=== PATIENT | female | born 1960 | race Caucasian/White ===

== ENCOUNTER 2025-08-22 01:46 | Emergency (ER) | payer MEDICARE, SELFPAY ==
--- OUTSIDE RECORDS SUMMARY | 2025-06-18 16:26 | XMS_ITS | Encounter Summary ---
Author Organization [facility] nter Address [address] [place] [address] Care Team Providers Care Com Writer Name Role Phone Rachel Pagan MD Unavailable [phone] Pati Rucker TARIFF CLERK Unavailable [phone] Sosa Gardner TARIFF CLERK Unavailable [phone] Linda Elizabeth DO Unavailable Lizandro Evans NP Primary Care Provider [phone] Elsa Vazquez Unavailable Unavailable Reason for Visit * Auth/Cert Specialty Diagnoses / Procedures Referred By Dorothy ceballos Referred To Contact Diagnoses Nuvia Juarez MD [address] [place] [address] Phone: tel: fax: [facility] [address] [place] [address] Phone: tel: fax: Referral ID Status Reason Start Date Expiration Date Visits Re quested Visits Authorized [id number] Encounter Details Date Type Department Care Team (Latest Contact Info) Description 06/18/2025 4:26 PM EDT - 06/23/2025 11:00 AM EDT Hospital Encounter [facility] [address] [place] [address] Nuvia Johnson MD [address] [place] [id number] 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 (Primary Dx); Non-small cell lung cancer, unspecified laterality; Thrombocytopenia Discharge Disposition: Home or Self Care Social History Tobacco Use Types Packs/Day Years Used Date Smoking Tobacco: Every Day Cigarettes 0.5 30.7 Started: 2024; Last attempted to quit: 03/18/2025 Passive Smoke Exposure: Past Smokeless Tobacco: Never Comments:Offered patient an appointment at the health department for smoking cessation classes. Patient declined. Alcohol Use Standard Drinks/Week Comments Never 0 (1 standard drink = 0.6 oz pur e alcohol) Humiliation, Afraid, Rape, and Kick questionnair e Answer Date Recorded Within the last year, have y ou been afraid of your partner or ex-partner? No 11/11/2022 Within the last year, have y ou been humiliated or emotionally abused in other ways by your partner or ex-partner? No Within the last year, have y ou been kicked, hit, slapped, or otherwise physically hurt by your partner or ex-partner? No 11/11/2022 Within the last year, have y ou been raped or forced to have any kind of sexual activity by your partner or ex-partner? No 11/11/2022 Social Connection and Isolation Panel Answer Date Recorded In a typical week, how many times do you talk on the phone with family, friends, or neighbors? Three times a week 11/11/2022 How often do you get togethe r with friends or relatives? Three times a week 11/11/2022 How often do you attend chur ch or taoism services? More than 4 times per year 11/11/2022 Do you belong to any clubs o r organizations such as christianity groups, unions, fraternal or athletic groups, or school groups? Yes 11/11/2022 How often do you attend meet ings of the clubs or organizations you belong to? More than 4 times per year 11/11/2022 Are you , , di vorced, , never , or living with a partner? 11/11/2022 Overall Financial Resource Strain (CARDIA) Answe r Date Recorded How hard is it for you to pa y for the very basics like food, housing, medical care, and heating? Not hard at all 01/11/2025 Exercise Vital Sign Answer Date Recorde d On average, how many days pe r week do you engage in moderate to strenuous exercise (like a brisk walk)? 0 days 01/11/2025 On average, how many minutes do you engage in exercise at this level? 0 min 01/11/2025 PRAPARE - Transportation Answer Date Re corded In the past 12 months, has l ack of transportation kept you from medical appointments or from getting medications? No 12/17 In the past 12 months, has l ack of transportation kept you from meetings, work, or from getting things needed for daily living? No 01/11/2025 Housing Stability Vital Sign Answer Hector e Recorded In the last 12 months, was t here a time when you were not able to pay the mortgage or rent on time? No 11/11/2022 Number of Places Lived in the Last Year Not on f ile 11/11/2022 In the last 12 months, was t here a time when you did not have a steady place to sleep or slept in a fci (including now)? No 11/11/2022 AUDIT-C Answer Date Recorded Q1: How often do you have a drink containing alcohol? Never 06/19/2025 Q2: How many drinks containi ng alcohol do you have on a typical day when you are drinking? Patient does not drink Q3: How often do you have si x or more drinks on one occasion? Never 06/19/2025 Hunger Vital Sign Answer Date Recorded Within the past 12 months, y ou worried that your food would run out before you got the money to buy more. Never true 06/19/20 25 Within the past 12 months, t he food you bought just didn't last and you didn't have money to get more. Never true 06/19/2025 PRAPARE - Transportation Answer Date Re corded In the past 12 months, has l ack of transportation kept you from medical appointments or from getting medications? No 07/2025 In the past 12 months, has l ack of transportation kept you from meetings, work, or from getting things needed for daily living? No 06/23/2025 [facility] Utilities Answer Date Recorded In the past 12 months has th e electric, gas, oil, or water company threatened to shut off services in your home? No 06/19/2025 Comments No Sex and Gender Information Value Date Recorded Sex Assigned at Female 01/21/2022 1:00 PM EST Legal Sex Female 1:00 PM EST Gender Identity Female 01/21/2022 1:00 PM EST Sexual Orientation Straight 01/21/2022 1: 00 PM EST documented as of this encounter Last Filed Vital Signs Vital Sign Reading Time Taken Comments Blood Pressure 109/52 06/23/2025 8:33 AM EDT Pulse 81 06/23/2025 8:33 AM EDT Temperature 36.6 C (97.9 F) 06/23/2025 8:33 AM EDT Respiratory Rate 19 06/23/2025 8:33 AM EDT Oxygen Saturation 99% 06/23/2025 8:33 AM EDT Inhaled Oxygen Concentration - - Weight 66.7 kg (147 lb) 06/23/2025 3:00 AM EDT Height 147.3 cm (4' 10 ) 06/18/2025 4:34 PM EDT Body Mass Index 30.72 06/18/2025 4:34 PM EDT documented in this encounter Functional Status * AUDIT Alcohol Screening Question Answer Date of Assessment Author AUDIT-C Score 0 06/19/2025 1:00 PM EDT Emily Barton Q1: How often do you have a drink containing alcohol? Never 06/19/2025 1:00 PM EDT Emily Dong Q2: How many drinks containing alcohol do you have on a typical day when you are drinking? Patient does not drink 06/19/2025 1:00 PM EDT Emily Dong Q3: How often do you have six or more drinks on one occasion? Never 06/19/2025 1:00 PM EDT Emily Dong * Are you deaf or do you have serious difficulty hearing? Answer Date of Assessment Author No 10/27/2022 3:29 PM EST Demetri Mota RN * Are you blind or do you have serious difficulty seeing, even when wearing glasses? Answer Date of Assessment Author No 10/27/2022 3:29 PM Demetri Moser RN * Do you have serious difficulty walking or climbing stairs? Answer Date of Assessment Author No 10/27/2022 3:29 PM Demetri Moser RN * Do you have serious difficulty dressing or bathing? Answer Date of Assessment Author No 10/27/2022 3:29 PM Demetri Moser RN * Because of a physical, mental, or emotional condition, do you have serious difficulty doing errandsalone such as visiting the doctor? Answer Date of Assessment Author No 10/27/2022 3:29 PM Demetri Moser RN * Over the past 2 weeks, how often have you been bothered by any of the following problems? Question Answer Date of Assessment Author Patient Health Questionnaire-2 Score 0 0 07/2025 10:00 AM Emily Murillo * Over the past 2 weeks, how often have you been bothered by any of the following problems? Question Answer Date of Assessment Author Little interest or pleasure in doing things Not at all 06/23/2025 10:00 AM Emily Murillo Feeling down, depressed, or hopeless Not at all 06/23/2025 10:00 AM MOSHET Emily Dong Trouble falling or staying asleep, or sleeping too much Not at all 06/23/2025 10:00 AM EDEmily Pelayo A Feeling tired or having fang le energy Not at all 06/23/2025 10:00 AM EDT Emily Dong A Poor appetite or overeating Not at all 06/23/2025 10 :00 AM Emily Murillo A Feeling bad about yourself - or that you are a failure or have let yourself or your family down Not at all 06/23/2025 10:00 AM MOSHET Emily Carson A Trouble concentrating on thi ngs, such as reading the newspaper or watching television Not at all 06/23/2025 10:00 AM Emily Murillo Moving or speaking so slowly that other people could have noticed? Or the opposite - being so fidgety or restless that you have been moving around a lot more than usual. Not at all 06/23/2025 10:00 AM Emily Murillo Thoughts that you would be b surinder off or hurting yourself in some way Not at all 06/23/2025 10:00 AM EDEmily Pelayo Patient Health Questionnaire -9 Score 0 06/23/2025 10:00 AM EDEmily Pelayo documented as of this encounter Mental Status * Because of a physical, mental, or emotional condition, do you have serious difficulty concentrating, remembering, or making decisions? (5 years old or older) Answer Entry Date Author No 10/27/2022 3:29 PM Demetri Moser RN documented in this encounter Discharge Summaries * Nuvia Johnson MD - 06/23/2025 11:00 AM EDT Inpatient Rehabilitation Discharge Summary Admission Date: 06/18/2025 Discharge Date: 06/23/2025 Final Discharge Diagnoses 1. Acute ischemic infarction involving the right cerebellum, right frontal, parietal and occipital lobes 2. Metastatic non-small cell lung carcinoma 3. Hypertension 4. Hyperlipidemia 5. Atrial fibrillation 6. COPD 7. Severe thrombocytopenia 8. Myoclonus 9. Neuropathic pain 10. Epistaxis 11. Steroid-induced hyperglycemia 12. Hypokalemia 13. Hypomagnesemia History of present illness Patient is a 64 y.o. [id number]-[id number] female with a history of non-small cell lung cancer, with metastatic lesions to the brain status post 5 brain radiation treatments, left lower extremity DVT, PE status post IVC filter, A-fib, bladder mass status post TURB presented to [facility] on 06/12/2025 after a fall on her face resulting in bilateral facial/under high ecchymosis. Patientwas evaluated by ENT, recommended Bactroban ointment to nasal septum twice daily, recommended to donot use nasal cannula rather than face tent or mask. Patient was also evaluated by oncology and recommended MRI of the brain. Patient underwent MRI of the brain and was found to have above-mentioned multiple tiny acute infarctions in the right cerebellum, right occipital lobe, right posterior frontal parietal lobes. Patient was evaluated by neurology currently unable to receive DOACs, recommendedwatchman's procedure. Patient was also started on Depakote, underwent EEG which was negative. Once she was medically stable she was evaluated with PT, OT, recommended acute inpatient rehabilitation. Medical Hospital Course 1. Acute ischemic infarction involving the right cerebellum, right frontal, parietal and occipital lobes - Embolic in nature - Continue secondary stroke prophylaxis with atorvastatin 80 mg p.o. Cb, carvedilol 12.5 mg p.o. twice daily with meals - Unable to receive antiplatelets due to severe thrombocytopenia - Patient participated in and significantly benefited from intense 3 hours a day for 5 days of physical therapy, Occupational Therapy and/or speech therapy 2. Metastatic non-small cell lung carcinoma - Metastatic lesions to the brain s/p resection, gamma knife and XRT - Status post chemotherapy x 4 cycles 3. Hypertension - Stable with Coreg 12.5 mg p.o. twice daily with meals and isosorbide mononitrate 20 mg p.o. twicedaily - Restarted Bumex 2 mg p.o. twice daily 4. Hyperlipidemia - Treated with atorvastatin 80 mg p.o. nightly 5. Atrial fibrillation - Continued on carvedilol 12.5 mg p.o. twice daily with meals - Currently not on anticoagulation due to severe thrombocytopenia 6. COPD - Continued on oxygen as needed and DuoNeb inhalation 4 times daily 7. Severe thrombocytopenia - Transfuse to keep platelet count between 10 and 20 or less than 50 if bleeding - At the time of discharge platelet count improved to 50,000, recommended to return to ER if there is any signs of bleeding otherwise patient will recheck her CBC on Wednesday and home health will repeat labs twice weekly x 2 weeks 8. Myoclonus - Continued on valproic acid 250 mg p.o. every 8 hours - Follow-up with neurology after discharge 9. Neuropathic pain - Treated with gabapentin 400 mg p.o. twice daily 10. Epistaxis - Improved. 11. Steroid-induced hyperglycemia - Treated with insulin sliding scale, Jardiance 10 mg p.o. daily and metformin 500 mg p.o. twice daily with meals 12. Hypokalemia - Improved after administering IV potassium and adjusting dose of potassium chloride 20 mEq p.o. twice daily. 13. Hypomagnesemia - Received IV magnesium sulfate, started on magnesium oxide 800 mg p.o. twice daily recommend to continue this 14. GI prophylaxis - Treated with Protonix 40 mg p.o. daily before breakfast 15. DVT/PE - Status post IVC filter - Treated with bilateral lower extremity sequential compression devices 16. Discharge disposition - Discharged home with daughter on 06/23/2025 Rehab Hospital Course At the time of admission Feeding Feeding Level of Assistance Close supervision Feeding Where Assessed Wheelchair Grooming Grooming Level of Assistance Close supervision Grooming Where Assessed Wheelchair;Sitting sinkside Grooming Comments Patient was able to complete all parts of grooming. UE Bathing UE Bathing Level of Assistance Close supervision UE Bathing Where Assessed Wheelchair;Sitting sinkside UE Bathing Comments Patient was able to complete all parts of UE bathing. LE Bathing LE Bathing Level of Assistance Minimum assistance LE Bathing Where Assessed Wheelchair;Sitting sinkside UE Dressing UE Dressing Level of Assistance Minimum assistance UE Dressing Where Assessed Wheelchair UE Dressing Comments Patient required assistance to doff shirt over head. LE Dressing LE Dressing Yes Pants Level of Assistance Minimum assistance Sock Level of Assistance Minimum assistance Shoe Level of Assistance Contact guard Adult Briefs Level of Assistance Minimum assistance LE Dressing Where Assessed Wheelchair LE Dressing Comments Patient required min assistance for balance/safety. Toileting Toileting Level of Assistance Minimum assistance Where Assessed Toilet Toilet Transfers Toilet Transfer From Wheelchair Toilet Transfer Type To and from Toilet Transfer to Raised toilet seat with rails Toilet Transfer Technique Stand pivot Toilet Transfers Minimal assistance Shower Transfers Shower Transfers Comments NT secondary to safety; Bed Mobility 1 Bed Mobility From 1 Rolling right - Bed Mobility Type 1 To and from - Bed Mobility to 1 Rolling left - Level of Assistance 1 Independent - Bed Mobility 2 Bed Mobility From 2 Supine - Bed Mobility Type 2 To - Bed Mobility to 2 Short sit - Level of Assistance 2 Minimum assistance - Bed Mobility Comments 2 pt able to manuver LEs off bed with cueing and Yamil to bring trunk to sitting - Bed Mobility 3 Bed Mobility From 3 Short sit - Bed Mobility Type 3 To - Bed Mobility to 3 Supine - Level of Assistance 3 Minimum assistance - Bed Mobility Comments 3 pt requires gudiance of LEs onto bed - Transfers Transfer Yes - Transfer 1 Transfer From 1 Sit - Transfer Type 1 To and from - Transfer to 1 Stand - Technique 1 Sit to stand;Stand to sit - Transfer Device 1 w/c arm rests and rolling walker - Transfer Level of Assistance 1 Minimum assistance - Trials/Comments 1 pt requires cueing for safety and Yamil for balance - Transfers 2 Transfer From 2 Wheelchair - Transfer Type 2 To and from - Transfer to 2 Bed - Technique 2 Stand pivot - Transfer Device 2 w/c arm rests - Transfer Level of Assistance 2 Minimum assistance - Trials/Comments 2 for balance/safety - Transfers 3 Transfer From 3 Wheelchair - Transfer Type 3 To and from - Transfer to 3 Car - Technique 3 Stand pivot - Transfer Device 3 rolling walker - Transfer Level of Assistance 3 Minimum assistance - Trials/Comments 3 Pt requires cueing for sitting in w/c prior to bringing LEs in. Pt requires Yamil for balance/safety - Wheelchair Activities Propulsion Yes - Propulsion Type 1 Manual - Level 1 Level tile - Method 1 Right upper extremity;Left upper extremity - Level of Assistance 1 Moderate assistance - Description/Details 1 Pt propells w/c 10ft with modA. Pt demonstrates decreased coordiantion on LUEwith reaching far back on chair and difficulty maintaining gambling broker, pt demonstrates difficulty using LEs to assist. - Ambulation Ambulation Yes - Ambulation 1 Surface 1 Level tile - Device 1 Rolling walker - Assistance 1 Minimum assistance - Quality of Gait 1 unsteady, pt requires cueing for safety awareness with for walker use, pt demonstrates impulsvie actions at times. - Comments/Distance (ft) 1 [id number] with 2 turns, 50ftx1 with 2 turns - Ambulation 2 Surface 2 Uneven;Carpet - Device 2 Rolling walker - Assistance 2 Minimum assistance - Quality of Gait 2 unsteady, pt requires cueing for safety awareness with for walker use, pt demonstrates impulsvie actions at times. - Comments/Distance (ft) 2 10ft - Stairs Stairs Yes - Stairs Rails 1 Right - Assistance 1 Moderate assistance - Comment/Number of Steps 1 Pt ascends and descends 3 stairs with right handrail with modA for balance/safety. Pt requires cueing for safety awareness and for prevention of impulsive actions - At the time of discharge Feeding Feeding Level of Assistance Independent -KG Feeding Where Assessed Wheelchair -KG Grooming Grooming Level of Assistance Modified independent -KG Grooming Where Assessed Wheelchair;Sitting sinkside -KG Grooming Comments Pt complete all grooming parts in seated position. -KG UE Bathing UE Bathing Level of Assistance Setup -KG UE Bathing Where Assessed Wheelchair;Sitting sinkside -KG LE Bathing LE Bathing Level of Assistance Contact guard -KG LE Bathing Where Assessed Wheelchair;Standing sinkside;Sitting sinkside -KG LE Bathing Comments Pt able to wsah/dry all parts with CGA while standing to wash/dry buttocks/periarea. -KG UE Dressing UE Dressing Level of Assistance Setup -KG UE Dressing Where Assessed Wheelchair -KG LE Dressing LE Dressing Yes -KG LE Dressing Adaptive Equipment Walker -KG Pants Level of Assistance Contact guard -KG Sock Level of Assistance Setup -KG Shoe Level of Assistance Moderate assistance -KG Adult Briefs Level of Assistance Contact guard -KG LE Dressing Where Assessed Wheelchair -KG Toileting Toileting Level of Assistance Contact guard -KG Where Assessed Toilet -KG Toilet Transfers Toilet Transfer From Wheelchair -KG Toilet Transfer Type To and from -KG Toilet Transfer to Raised toilet seat with rails -KG Toilet Transfer Technique Stand pivot -KG Toilet Transfers Contact guard -KG Ambulation 1 Surface 1 Level tile Device 1 Rolling walker Assistance 1 Contact guard Quality of Gait 1 decreased francisco, flexed posture, unsteadiness. pt requires cueing for safety with walker management and to prevent impulsive actions. Comments/Distance (ft) 1 10', 50' with 2 turns, 150' with 4 turns Ambulation 2 Surface 2 Carpet Device 2 Rolling walker Assistance 2 Contact guard Quality of Gait 2 decreased francisco, flexed posture, unsteadiness. pt requires cueing for safety with walker management and to prevent impulsive actions. Comments/Distance (ft) 2 10' Stairs Rails 1 Right Assistance 1 Contact guard Comment/Number of Steps 1 1 step, 4 steps, 6 steps with step to gait pattern Bed Mobility Bed Mobility Yes Bed Mobility 1 Bed Mobility From 1 Rolling right Bed Mobility Type 1 To and from Bed Mobility to 1 Rolling left Level of Assistance 1 Independent Bed Mobility 2 Bed Mobility From 2 Supine Bed Mobility Type 2 To and from Bed Mobility to 2 Short sit Level of Assistance 2 Independent Transfer 1 Transfer From 1 Sit Transfer Type 1 To and from Transfer to 1 Stand Technique 1 Sit to stand;Stand to sit Transfer Device 1 arm rests and RW Transfer Level of Assistance 1 Close supervision Trials/Comments 1 cueing required for safety Transfers 2 Transfer From 2 Wheelchair Transfer Type 2 To and from Transfer to 2 Bed Technique 2 Stand pivot Transfer Device 2 arm rests Transfer Level of Assistance 2 Close supervision Transfers 3 Transfer From 3 Wheelchair Transfer Type 3 To and from Transfer to 3 Car Technique 3 Stand pivot Transfer Device 3 arm rests, rolling walker Transfer Level of Assistance 3 Close supervision Trials/Comments 3 cues for safety and technique Wheelchair Activities Propulsion Type 1 Manual Level 1 Level tile Method 1 Right upper extremity;Left upper extremity Level of Assistance 1 Maximum assistance Description/Details 1 50' with 2 turns, 150' with 4 turns and max assist due to poor coordination Modified Renville Scale 2 - The patient has slight disability; unable to carry out all pre-stroke activities but able to look after self without daily help. Physical Exam General: Patient is in no acute distress Cardiovascular: S1, S2 are audible Respiratory: Oxygen per nasal cannula, mild expiratory wheezing Gastrointestinal: Abdomen is soft and positive bowel sounds in all 4 quadrants, nontender to palpation Neurological: Awake, alert, speech is fluent with intact comprehension, follows commands Musculoskeletal: Bilateral lower extremities 1+ pedal edema Discharge Medications Your medication list PAUSE taking these medications Instructions Last Dose Given Next Dose Due bumetanide 2 MG tablet Wait to take this until your doctor or other care provider tells you to start again. Commonly known as: Bumex What changed: additional instructions Take 1 tablet (2 mg) by mouth in the morning and at bedtime. Hold for systolic blood pressure less than or equal to 100 mmHg START taking these medications Instructions Last Dose Given Next Dose Due magnesium oxide tablet Commonly known as: Mag-Ox Take 2 tablets (800 mg) by mouth in the morning and at bedtime. melatonin 3 MG tablet Take 2 tablets (6 mg) by mouth at bedtime. CHANGE how you take these medications Instructions Last Dose Given Next Dose Due carvedilol 12.5 MG tablet Commonly known as: Coreg What changed: medication strength additional instructions Take 1 tablet (12.5 mg) by mouth with breakfast and with evening meal. Hold for systolic blood pressure less than or equal to 100 mmHg or heart rate less than or equal to 60 bpm folic acid 1 MG tablet Commonly known as: Folvite What changed: how much to take how to take this when to take this additional instructions Take 1 tablet (1 mg) by mouth in the morning. gabapentin 800 MG tablet Commonly known as: Neurontin What changed: how much to take Take 0.5 tablets (400 mg) by mouth in the morning and at bedtime. Take morning of procedure isosorbide mononitrate 20 MG tablet What changed: additional instructions Take 1 tablet (20 mg) by mouth in the morning and at bedtime. Hold for systolic blood pressure lessthan or equal to 100 mmHg potassium chloride CR 20 MEQ ER tablet Commonly known as: Klor-Con M20 What changed: when to take this Take 1 tablet (20 mEq) by mouth in the morning and at bedtime. CONTINUE taking these medications Instructions Last Dose Given Next Dose Due atorvastatin 80 MG tablet Commonly known as: Lipitor Take 1 tablet (80 mg) by mouth at bedtime. cyancobalamin 500 MCG tablet Commonly known as: Vitamin B-12 Take 1 tablet (500 mcg) by mouth in the morning. Do not take morning of procedure DULoxetine [address] capsule Commonly known as: Cymbalta Take 1 capsule (60 mg) by mouth in the morning. empagliflozin 10 MG Commonly known as: Jardiance Take 1 tablet (10 mg) by mouth in the morning. ipratropium-albuterol 0.5-2.5 mg/3 mL nebulizer solution Commonly known as: Duo-Neb Take 3 mL by nebulization every 6 (six) hours if needed for wheezing. metFORMIN 500 MG tablet Commonly known as: Glucophage Take 1 tablet (500 mg) by mouth with breakfast and with evening meal. pantoprazole 40 MG EC tablet Commonly known as: ProtoNix Take 1 tablet (40 mg) by mouth before breakfast. Do not crush, chew, or split. valproic acid 250 MG/5ML oral liquid Commonly known as: Depakene Take 5 mL (250 mg) by mouth every 8 (eight) hours. STOP taking these medications cyclobenzaprine 10 MG tablet Commonly known as: Flexeril diphenoxylate-atropine 2.5-0.025 MG tablet Commonly known as: Lomotil ondansetron 8 MG tablet Commonly known as: Rita Where to Get Your Medications [facility] [id number] [facility] [address] [facility] [address], [facility] [id number] atorvastatin 80 MG tablet bumetanide 2 MG tablet carvedilol 12.5 MG tablet cyancobalamin 500 MCG tablet DULoxetine [address] capsule empagliflozin 10 MG folic acid 1 MG tablet ipratropium-albuterol 0.5-2.5 mg/3 mL nebulizer solution isosorbide mononitrate 20 MG tablet magnesium oxide tablet melatonin 3 MG tablet metFORMIN 500 MG tablet pantoprazole 40 MG EC tablet potassium chloride CR 20 MEQ ER tablet valproic acid 250 MG/5ML oral liquid Information about where to get these medications is not yet available Ask your nurse or doctor about these medications gabapentin 800 MG tablet Discharge Condition: Medically stable Discharge Instructions Diet: Diabetic and cardiac diet Weight Bearing Status: No weightbearing restrictions Activity: As tolerated Discharge disposition Home with daughter Discharge DME Rolling walker Oxygen Discharge Rehabilitation: Home health PT and OT Follow-Up Appointments [facility] oncology on June 26, 2025 at 9 AM [facility] cardiology on June 26, 2025 at 10:15 AM [facility] oncology on June 26, 2025 at 10:30 AM [facility] nephrology on June 28, 2025 at 10 AM [facility] neurology on July 23, 2025 at 11 AM MRI cervical spine on July 25, 2025 at 11:30 AM Ultrasound abdomen on August 02, 2025 2:30 PM Primary care physician on July 06, 2025 at 11:30 AM Time spent for discharge: greater than 30 minutes Patient/caregiver were educated on medication administration, activity restrictions, driving, use of medical equipment, post discharge rehab plan of care, post discharge follow-up appointments. Patient's/patient's caregivers questions were answered to their satisfaction. Driving: Do not drive, Do not operate heavy equipment/machinery I performed [id number] evaluation of the patient on the day of Discharge. documented in this encounter Discharge Instructions * Discharge Instr - Activity* Blayne Pope, PT - 06/22/2025 2:55 PM EDT Physical Therapy Discharge Instructions Discharge Date: 06/22/2025 General Instructions: When standing from a bed or chair, push off from bed / chair. Do not pull on walker or helper. If using a wheelchair, always lock the brakes and remove leg rests before getting in / out of the wheelchair. Make sure your area at home with free of clutter and throw rugs. Please use gait / safety beltwith patients that require assistance to complete mobility. Ambulation: Patient is able to walk with use of rolling walker. Patient requires hands on assistance of one person when walking. Patient is able to walk on Unlevel and level surfaces. Bed / Chair Transfers: Patient requires use of the following assistive device to complete transfers: rolling walker. Patient requires hands on assistance of one person to complete transfers. Stairs: Patient is able to walk up and down 12 steps with use of handrails hands on assistance of one person. Recommendations: 24 hour supervision / assistance. Equipment Recommendations: rolling walker and bedside commode. Follow Up Therapy Recommended: outpatient therapy and home exercise program. Follow home exercise program as instructed: . * Appointments* Janell Jack RN - 06/23/2025 9:12 AM EDT FOLLOW UP WITH PRIMARY CARE PHYSICIAN ISSAC EVANS ON June @ 11:30 AM * Discharge Instr - Other Orders* Emily Dong - 06/21/2025 2:16 PM EDT [facility] WILL CALL TO ARRANGE VISITS [id number] documented in this encounter Medications at Time of Discharge carvedilol (Coreg) 12.5 MG tablet Take 1 tablet (12.5 mg) by mouth with breakfast and with evening meal. Hold for systolic blood pressure less than or equal to 100 mmHg or heart rate less than or equal to 60 bpm 60 tablet 06/22/2025 DULoxetine (Cymbalta) [address] capsule Take 1 capsule (60 mg) by mouth in the morning. 30 capsule 06/22/2025 empagliflozin (Jardiance) 10 MG Take 1 tablet (10 mg) by mouth in the morning. 30 tablet 06/22/2025 folic acid (Folvite) 1 MG tablet Take 1 tablet (1 mg) by mouth in the morning. 30 tablet 11 06/23/2025 6 gabapentin (Neurontin) 800 MG tablet Take 0.5 tablets (400 mg) by mouth in the morning and at bedtime. Take morning of procedure 06/22/2025 ipratropium-albut nikolai (Duo-Neb) 0.5-2.5 mg/3 mL nebulizer solution Take 3 mL by nebulization every 6 (six) hours if needed for wheezing. 360 mL 06/22/2025 metFORMIN (Glucophage) 500 MG tablet Take 1 tablet (500 mg) by mouth with breakfast and with evening meal. 60 tablet 06/22/2025 pantoprazole (ProtoNix) 40 MG EC tablet Take 1 tablet (40 mg) by mouth before breakfast. Do not crush, chew, or split. 30 tablet 06/22/2025 cyancobalamin (Vitamin B-12) 500 MCG tablet Take 1 tablet (500 mcg) by mouth in the morning. Do not take morning of procedure 30 tablet 06/22/2025 5 melatonin 3 MG tablet Take 2 tablets (6 mg) by mouth at bedtime. 60 tablet 06/22/2025 5 atorvastatin (Lipitor) 80 MG tabletIndications :Cerebrovascular Accident Take 1 tablet (80 mg) by mouth at bedtime. 30 tablet 06/22/2025 5 bumetanide (Bumex) 2 MG tablet Take 1 tablet (2 mg) by mouth in the morning and at bedtime. Hold for systolic blood pressure less than or equal to 100 mmHg 60 tablet 06/22/2025 5 isosorbide mononitrate 20 MG tablet Take 1 tablet (20 mg) by mouth in the morning and at bedtime. Hold for systolic blood pressure less than or equal to 100 mmHg 60 tablet 06/22/2025 5 magnesium oxide (Mag-Ox) tablet Take 2 tablets (800 mg) by mouth in the morning and at bedtime. 120 tablet 06/22/2025 5 potassium chloride CR (Klor-Con M20) 20 MEQ ER tablet Take 1 tablet (20 mEq) by mouth in the morning and at bedtime. 60 tablet 06/22/2025 5 valproic acid (Depakene) 250 MG/5ML oral liquid Take 5 mL (250 mg) by mouth every 8 (eight) hours. 450 mL 06/22/2025 5 documented as of this encounter Progress Notes * Radha Berry, PT - 06/23/2025 11:00 AM EDT PHYSICAL THERAPY DISCHARGE NOTE 06/23/25 09 Subjective Current Problem CVA Precautions Medical Precautions HRF, Cardiac protocol; (Hold PT/OT if HR is < 50 >120 or SBP is < 90 >180 mmHg), Aspiration precautions, Ambulation Ambulation Yes Ambulation 1 Surface 1 Level tile Device 1 Rolling walker Assistance 1 Contact guard Quality of Gait 1 decreased francisco, flexed posture, unsteadiness. pt requires cueing for safety with walker management and to prevent impulsive actions. Comments/Distance (ft) 1 10', 50' with 2 turns, 150' with 4 turns Ambulation 2 Surface 2 Carpet Device 2 Rolling walker Assistance 2 Contact guard Quality of Gait 2 decreased francisco, flexed posture, unsteadiness. pt requires cueing for safety with walker management and to prevent impulsive actions. Comments/Distance (ft) 2 10' Stairs Rails 1 Right Assistance 1 Contact guard Comment/Number of Steps 1 1 step, 4 steps, 6 steps with step to gait pattern Bed Mobility Bed Mobility Yes Bed Mobility 1 Bed Mobility From 1 Rolling right Bed Mobility Type 1 To and from Bed Mobility to 1 Rolling left Level of Assistance 1 Independent Bed Mobility 2 Bed Mobility From 2 Supine Bed Mobility Type 2 To and from Bed Mobility to 2 Short sit Level of Assistance 2 Independent Transfer 1 Transfer From 1 Sit Transfer Type 1 To and from Transfer to 1 Stand Technique 1 Sit to stand;Stand to sit Transfer Device 1 arm rests and RW Transfer Level of Assistance 1 Close supervision Trials/Comments 1 cueing required for safety Transfers 2 Transfer From 2 Wheelchair Transfer Type 2 To and from Transfer to 2 Bed Technique 2 Stand pivot Transfer Device 2 arm rests Transfer Level of Assistance 2 Close supervision Transfers 3 Transfer From 3 Wheelchair Transfer Type 3 To and from Transfer to 3 Car Technique 3 Stand pivot Transfer Device 3 arm rests, rolling walker Transfer Level of Assistance 3 Close supervision Trials/Comments 3 cues for safety and technique Wheelchair Activities Propulsion Type 1 Manual Level 1 Level tile Method 1 Right upper extremity;Left upper extremity Level of Assistance 1 Maximum assistance Description/Details 1 50' with 2 turns, 150' with 4 turns and max assist due to poor coordination Other Activity Other Activity 1 Pt performed picking up object from floor with unilateral UE support with billing services manager with SBA PT Assessment PT Assessment Pt continues to require cueing for safety awareness with pt demonstrating decreased awareness of deificits, safety precautions and need for assistance. Discussed with pt safety concernsfor discharge home, recommended 24 hour care, need for use of walker with all mobility, taking up throw rugs, proper shoe use, and any other concerns about discharge. 5/ goals achieved. Recommend home health PT. Pt has all needed equipment at home. Plan PT - OK to Discharge Yes * Chapo Funez OTR/Anita - 06/23/2025 10:21 AM EDT Images from the original note were not included. 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 Lung cancer with mets to the brain Myocardial infarction Phlebitis and thrombophlebitis of unspecified site Pneumonia 05/15/2025 Pulmonary embolism 2024 PVD (peripheral vascular disease) (HCC) RLS (restless legs syndrome) Ruptured abdominal aortic aneurysm Sepsis due to pneumonia 05/15/2025 Past Surgical History: Procedure Laterality Date BRAIN TUMOR EXCISION 11/[address] CHEST ANGIOGRAM W AND/OR WO IV CONTRAST 01/10/2025 CT CHEST ANGIOGRAM W AND/OR WO IV CONTRAST 01/10/[address] [facility] [address] CHEST ANGIOGRAM W AND/OR WO IV CONTRAST 03/19/2025 CT CHEST ANGIOGRAM W AND/OR WO IV CONTRAST 03/19/[address] CHEST ANGIOGRAM W AND/OR WO IV CONTRAST 05/15/2025 CT CHEST ANGIOGRAM W AND/OR WO IV CONTRAST 05/15/[address] HEAD ANGIO 04/24/2024 CT HEAD ANGIO 04/24/[address] HEAD ANGIO 02/28/2025 CT HEAD ANGIO 02/28/[address] HEAD ANGIO 06/13/2025 CT HEAD ANGIO 06/13/[address] NECK ANGIO 04/24/2024 CT NECK ANGIO 04/24/[address] NECK ANGIO 02/28/2025 CT NECK ANGIO 02/28/[address] NECK ANGIO 06/13/2025 CT NECK ANGIO 06/13/[address] IR INTERVENTION FILTER PLACEMENT 03/31/2025 IR INTERVENTION FILTER PLACEMENT 03/31/2025 [facility] IR MEDIPORT INSERTION, SINGLE 11/24/2022 Occupational Therapy Flowsheet Data (last 10 hours) OT Treatment - Sat June 23, 2025 Row Name 1021 Subjective Current Problem Stoke, acute, embolic -KG Patient Reports Pt not seen for OT services at this time. Discharge only. -KG Precautions Medical Precautions HRF, Cardiac protocol; (Hold PT/OT if HR is < 50 >120 or SBP is < 90 >180 mmHg), Aspiration precautions, -KG Feeding Feeding Level of Assistance Independent -KG Feeding Where Assessed Wheelchair -KG Grooming Grooming Level of Assistance Modified independent -KG Grooming Where Assessed Wheelchair;Sitting sinkside -KG Grooming Comments Pt complete all grooming parts in seated position. -KG UE Bathing UE Bathing Level of Assistance Setup -KG UE Bathing Where Assessed Wheelchair;Sitting sinkside -KG LE Bathing LE Bathing Level of Assistance Contact guard -KG LE Bathing Where Assessed Wheelchair;Standing sinkside;Sitting sinkside -KG LE Bathing Comments Pt able to wsah/dry all parts with CGA while standing to wash/dry buttocks/periarea. -KG UE Dressing UE Dressing Level of Assistance Setup -KG UE Dressing Where Assessed Wheelchair -KG LE Dressing LE Dressing Yes -KG LE Dressing Adaptive Equipment Walker -KG Pants Level of Assistance Contact guard -KG Sock Level of Assistance Setup -KG Shoe Level of Assistance Moderate assistance -KG Adult Briefs Level of Assistance Contact guard -KG LE Dressing Where Assessed Wheelchair -KG Toileting Toileting Level of Assistance Contact guard -KG Where Assessed Toilet -KG Toilet Transfers Toilet Transfer From Wheelchair -KG Toilet Transfer Type To and from -KG Toilet Transfer to Raised toilet seat with rails -KG Toilet Transfer Technique Stand pivot -KG Toilet Transfers Contact guard -KG OT Assessment Patient Goals Take care of myself -KG OT Assessment Results -- Pt has made great progress since SOC -KG Prognosis Good -KG Barriers to Discharge None -KG Medical Staff Made Aware Yes -KG Strengths Support of extended family/friends -KG Barriers Comorbidities -KG Plan Treatment Interventions -- Planned discharge for this date -KG Anticipated Length of Stay Planned discharge for this date -KG OT Discharge Recommendations -- outpatient therapy -KG Equipment Recommended RW, BSC -KG OT - OK to Discharge Yes -KG At Session End Patient Was Left -- -KG User Guerin (r) = Recorded By, (t) = Taken By, (c) = Cosigned By Initials Name Effective Dates KG Chapo Funez, OTR/L 10/01/23 - Multi-Disciplinary Problems (from Occupational Therapy) Active Problems Not on file Occupational Therapy Progress Note Patient is discharged to home Facility name / phone number for follow up: Yes Additional Discharge Considerations: Pt has made great progress since SOC meeting 4/5 STGs and 3/5 LTGs. Pt safe to discharge home with family assistance. Problem: OT STG 1; Impaired Bathing Goal: Pt will complete all parts of LB Bathing ADL tasks with CGA to aid in return home. Outcome: Met Problem: OT STG 2; Impaired UB Dressing Goal: Pt will complete all part of Upper Body Dressing tasks with Close Supervision to aid in safe return home. Outcome: Met Problem: OT STG 3; Impaired LB Dressing Goal: Pt will complete all parts Lower Body Dressing tasks with CGA to aid in safe return home. Outcome: Adequate for Discharge Problem: OT STG 4; Impaired Toileting Goal: Pt will complete toileting hygiene tasks with CGA to aid in return home. Outcome: Met Problem: OT STG 5; Impaired Toileting Transfer Goal: Pt will require CGA with toileting transfers using least restrictive device as needed to aid in safe return home. Outcome: Met Problem: OT LTG 1; Impaired Feeding Goal: Pt will require Modified Independent with feeding tasks to aid in safe return home. Outcome: Met Problem: OT LTG 2; Impaired Grooming Goal: Pt will complete Grooming self-care tasks with Modified Independent to aid in safe return home. Outcome: Met Problem: OT LTG 3; Impaired Bathing Goal: Pt will complete all parts of Bathing ADL tasks with SBA to aid in return home. Outcome: Adequate for Discharge Problem: OT LTG 4; Impaired Toileting Goal: Pt will complete toileting hygiene tasks with SBA to aid in return home. Outcome: Adequate for Discharge Problem: OT LTG 5; Impaired HEP Goal: Pt will be educated on and verbalize and demonstrate understanding of HEP to promote increased strength to facilitate increased independence and safety with ADLs and functional transfers. Outcome: Met * Nuvia Johnson MD - 06/22/2025 12:24 PM EDT This is a [id number] encounter/evaluation by a rehabilitation physician. History of Present Illness: See H&P from 06/18/2025 Subjective No acute events overnight. Patient was examined this morning in speech-language pathologist office Patient reported that she wants to go home today however after explaining that her daughter will behere tomorrow morning to take her home she is agreeable She denies any dyspnea or chest pain however she has oxygen on Patient reports that she takes Bumex at home, administered 2 mg Bumex this morning, can restart after discharge Review of Systems A 10 point review of systems was performed and positive as written although Objective Physical Exam Visit Vitals BP 133/67 Pulse 84 Temp 98.1 ??F (36.7 ??C) Resp 17 General: She is in no acute distress Cardiovascular: S1, S2 are audible Respiratory: Oxygen per nasal cannula, diffuse expiratory wheezing Gastrointestinal: Abdomen is soft and positive bowel sounds in all 4 quadrants, nontender to palpation Neurological: Awake, alert, speech is fluent with intact comprehension follows commands Extremities: Bilateral lower extremities 1+ edema Current Facility-Administered Medications Medication Dose Route Frequency Provider Last Rate Last Admin acetaminophen (Tylenol) tablet 650 mg 650 mg Oral q6h PRN Nuvia Johnson MD aluminum & magnesium hydroxide-simethicone (Mylanta) 200-200-20 MG/5ML oral suspension 20 mL 20mL Oral q4h PRN Nuvia Johnson MD atorvastatin (Lipitor) tablet 80 mg 80 mg Oral Nightly Nuvia Johnson MD 80 mg at 06/21/252125 bisacodyl (Dulcolax) suppository 10 mg 10 mg Rectal Daily PRN Nuvia Johnson MD [Held by provider] bumetanide (Bumex) tablet 2 mg 2 mg Oral BID Nuvia Johnson MD carvedilol (Coreg) tablet 12.5 mg 12.5 mg Oral BID with meals Nuvia Johnson MD 12.5 mg at 06/22/25 0951 cyancobalamin (Vitamin B-12) tablet 500 mcg 500 mcg Oral Daily Nuvia Johnson MD 500 mcg at 06/22/25 0950 cyclobenzaprine (Flexeril) tablet 10 mg 10 mg Oral Nightly Nuvia Johnson MD 10 mg at 06/21/252125 glucose chewable tablet 12-16 g 12-16 g Oral q15 min PRN Nuvia Johnson MD Or glucose (Glutose) 40 % oral gel 15 g 15 g Oral q15 min PRN Nuvia Johnson MD Or dextrose 50 % solution 12.5-25 g 12.5-25 g Intravenous q15 min PRN Nuvia Johnson MD diphenoxylate-atropine (Lomotil) 2.5-0.025 MG per tablet 1 tablet 1 tablet Oral 4x daily PRN MD Hardeep 1 tablet at 06/19/25 0705 DULoxetine (Cymbalta) DR capsule 60 mg 60 mg Oral q AM Nuvia Johnson MD 60 mg at 06/22/25 0950 empagliflozin (Jardiance) tablet 10 mg 10 mg Oral Daily Nuvia Johnson MD 10 mg at 06/22/25 0951 folic acid (Folvite) tablet 1 mg 1 mg Oral Daily Nuvia Johnson MD 1 mg at 06/22/25 0950 gabapentin (Neurontin) capsule 400 mg 400 mg Oral BID Nuvia Johnson MD 400 mg at 06/22/25 0950 Glucagon Emergency injection kit 1 mg 1 mg Intramuscular PRN Nuvia Johnson MD insulin lispro (HumaLOG) injection 0-5 Units 0-5 Units Subcutaneous Before meals & nightly Nuvia Johnson MD ipratropium-albuterol (Duo-Neb) 0.5-2.5 mg/3 mL nebulizer solution 3 mL 3 mL Nebulization 4x daily Nuvia Johnson MD 3 mL at 06/22/25 1112 isosorbide mononitrate tablet 20 mg 20 mg Oral BID Nuvia Johnson MD 20 mg at 06/22/25 0950 magnesium hydroxide (Milk of Magnesia) 400 MG/5ML suspension 20 mL 20 mL Oral q8h PRN Nuvia Johnson MD magnesium oxide (Mag-Ox) tablet 800 mg 800 mg Oral BID Nuvia Johnson MD 800 mg at 06/22/25 0950 melatonin tablet 6 mg 6 mg Oral Nightly Nuvia Johnson MD 6 mg at 06/21/25 2126 metFORMIN (Glucophage) tablet 500 mg 500 mg Oral BID with meals Nuvia Johnson MD 500 mg at 06/22/25 0950 [facility] popswab 1 application. 1 application. Nasal q12h KALEY Johnson MD 1 application. at 06/22/25 0951 ondansetron (Zofran) tablet 4 mg 4 mg Oral q6h PRN Nuvia Johnson MD Or ondansetron (Zofran) injection 4 mg 4 mg Intravenous q6h PRN Nuvia Johnson MD 4 mg at 06/21/25 2153 pantoprazole (ProtoNix) EC tablet 40 mg 40 mg Oral Daily before breakfast Nuvia Johnson MD 40 mg at 06/22/25 0617 potassium chloride CR (Klor-Con M20) ER tablet 20 mEq 20 mEq Oral BID Nuvia Johnson MD 20 mEq at 06/22/25 0950 valproic acid (Depakene) oral liquid 250 mg 250 mg Oral q8h KALEY Johnson MD 250 mg at 06/22/25 0617 Labs Lab Results Component Value Date POCGLU 82 06/22/2025 BMP: Results from last 7 days Lab Units 06/21/25 0546 06/20/25 0558 06/19/25 0554 CREATININE mg/dL -- -- 0.62 BUN mg/dL -- -- 12 SODIUM mmol/L -- -- 142 POTASSIUM mmol/L 3.8 < > 2.9* CHLORIDE mmol/L -- -- 108 CO2 mmol/L -- -- 27 < > = values in this interval not displayed. CBC: Results from last 7 days Lab Units 06/22/25 0312 06/21/25 0546 06/20/25 0557 WBC AUTO 10*3/uL -- -- 7.5 7.5 HEMOGLOBIN g/dL -- -- 7.9* HEMATOCRIT % -- -- 23.6* MCV fL -- -- 91.8 PLATELETS AUTO 10*3/uL 15* < > 13* < > = values in this interval not displayed. Impression/Plan Jose Sims is a 64 y.o. female admitted to inpatient rehabilitation for 1. Acute ischemic infarction involving the right cerebellum, right frontal, parietal and occipital lobes - Embolic in nature - Continue secondary stroke prophylaxis with atorvastatin 80 mg p.o. Cb, carvedilol 12.5 mg p.o. twice daily with meals - Unable to receive antiplatelets due to severe thrombocytopenia - Continue test 3 hours a day for 5 days of physical therapy, Occupational Therapy and/or speech therapy 2. Metastatic non-small cell lung carcinoma - Metastatic lesions to the brain s/p resection, gamma knife and XRT - Status post chemotherapy x 4 cycles 3. Hypertension - Stable - Continue Coreg 12.5 mg p.o. twice daily with meals - Continue isosorbide mononitrate 20 mg p.o. twice daily - Administer Bumex 2 mg p.o. once today 4. Hyperlipidemia - Continue atorvastatin 80 mg p.o. nightly 5. Atrial fibrillation - Continue carvedilol 12.5 mg p.o. twice daily with meals - Currently not on anticoagulation due to severe thrombocytopenia 6. COPD - Continue oxygen via facemask as needed - Continue DuoNeb inhalation 4 times daily 7. 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 every 8 hours 9. Neuropathic pain - Continue gabapentin 400 mg p.o. twice daily 10. Epistaxis - Improved - Avoid nasal cannula - Continue facemask 11. Steroid-induced hyperglycemia - Continue insulin sliding scale - Continue Jardiance 10 mg p.o. daily - Continue metformin 500 mg p.o. twice daily with meals 12. Hypokalemia - Administer potassium chloride 30 mEq IV once today - Continue potassium chloride 20 mEq p.o. twice daily from 06/20/2025 13. Hypomagnesemia - Administer magnesium sulfate 1 g IV once over 60 minutes 14. GI prophylaxis - Continue Protonix 40 mg p.o. daily before breakfast 15. DVT/PE - Status post IVC filter - Continue bilateral lower extremity sequential compression devices 16. Discharge disposition - Discharge home with daughter on 06/23/2025 * Blayne Pope, PT - 06/22/2025 11:00 AM EDT Images from the original note were not included. Physical Therapy Physical Therapy Treatment Patient Name: Jose Sims Today's Date: 06/22/2025 Physical Therapy Flowsheet Data (last 10 hours) PT Treatment - WedJune 22, 2025 Row Name 0931 PT Last Visit PT Received On 06/21/25 - Response to Previous Treatment Patient with no complaints from previous session. - General PT Start Time 0930 - PT Stop Time 1100 - PT Time Calculation (min) 90 min - Family/Caregiver Present No - Subjective Current Problem CVA - Patient Reports Pt voices no specific complaints and is agreeable to therapy. Pt states that she wanted to go home today but has to wait until tomorrow. - Patient Was Found Pt sitting in w/c at [facility]. Pt does not appear to be in any pain or distress. Pt utilized gait belt and non skid socks for safety. - Precautions Medical Precautions HRF, Cardiac protocol; (Hold PT/OT if HR is < 50 >120 or SBP is < 90 >180 mmHg), Aspiration precautions, - Vital Signs Pulse 74 - Heart Rate Source Monitor - BP 132/78 - BP Location Right arm - BP Method Automatic - Patient Position Sitting - SpO2 96 % 96 on room air, with ambulation on room air pt's saturation levels dropped to 93% but wasvisibly labored with breathing so donned 2 liters per nasal cannula and cueing for controlled slow breathing with pt improving in symptoms. - Pain Assessment Pain Assessment No/denies pain - Therapeutic Exercise Therapeutic Exercise Time Entry 20 - Therapeutic Exercise Activity 1 Pt performed seated ther ex of marching, TKEs, hip abd/adduction, ankle pumps and hamstring curls with orange Tband. Pt performed [id number] AROM with 1.5 pounds. Pt requires visual and verbal cueing for correct performance of exercise and to perform full ROM. - Therapeutic Activity Therapeutic Activity Time Entry 10 - Therapeutic Activity 1 Pt performed various transitional movementes and transfers during session - Balance/Neuromuscular Re-Education Neuromuscular Re-Education Time Entry 30 - Balance/Neuromuscular Re-Education Activity 1 Pt performed dynamic standing balance activities withminimal challenges of weight shifting and stepping outside LADARIUS while tapping foot on colored targetcommanded. Pt performed stepping in various directions to challenge balance. Pt performed with BUE support and Yamil for balance/safety. Pt requires cueing for performance of safety awareness while performing balance activity. - Balance/Neuromuscular Re-Education Activity 2 Pt performed dynamic standing balance activities of reaching outside LADARIUS while tossing rings around cones. Pt performed with no UE support and Yamil for balance/safety. Pt requires cueing for safety with performance. - Gait Training Gait Training Time Entry 30 - Ambulation 1 Surface 1 Level tile - Device 1 Rolling walker - Assistance 1 Contact guard - Quality of Gait 1 decreased francisco, flexed posture, unsteadiness. pt requires cueing for safety with walker management and to prevent impulsive actions. - Comments/Distance (ft) 1 [id number] with 2 turns - Ambulation 2 Surface 2 Uneven;Carpet - Device 2 Rolling walker - Assistance 2 Contact guard - Quality of Gait 2 decreased francisco, flexed posture, unsteadiness. pt requires cueing for safety with walker management and to prevent impulsive actions. - Comments/Distance (ft) 2 10ftx1 - Bed Mobility 1 Bed Mobility From 1 Rolling right - Bed Mobility Type 1 To and from - Bed Mobility to 1 Rolling left - Level of Assistance 1 Independent - Bed Mobility 2 Bed Mobility From 2 Supine - Bed Mobility Type 2 To and from - Bed Mobility to 2 Short sit - Level of Assistance 2 Independent - Transfer 1 Transfer From 1 Sit - Transfer Type 1 To and from - Transfer to 1 Stand - Technique 1 Sit to stand;Stand to sit - Transfer Device 1 w/c arm rests and rolling walker - Transfer Level of Assistance 1 Close supervision - Trials/Comments 1 pt requires cueing for safety - Transfers 2 Transfer From 2 Wheelchair - Transfer Type 2 To and from - Transfer to 2 Bed - Technique 2 Stand pivot - Transfer Device 2 w/c arm rests - Transfer Level of Assistance 2 Close supervision - Trials/Comments 2 for balance/safety - Transfers 3 Transfer From 3 Wheelchair - Transfer Type 3 To and from - Transfer to 3 Car - Technique 3 Stand pivot - Transfer Device 3 w/c arm rests, rolling walker - Transfer Level of Assistance 3 Close supervision - Trials/Comments 3 pt requires cueing for safety and for performance with sitting first - Other Activity Other Activity 1 Pt performed picking up object from floor with unilateral UE support with billing services manager with SBA - At Session End Patient Was Left Pt left supine in bed, all needs in reach and bed alarm active. - PT Assessment PT Assessment Pt performed ambulation training, balance training, bed mobility, transfers and therapuetic exercises to increase pt's strength, endurance, balance, and safety to promote increased functional mobility and ADLs. Pt continues to require cueing for safety awareness with pt demonstrating decreased awareness of deificits, safety precautions and need for assistance. Discussed with pt safety concerns for discharge home, recommended 24 hour care, need for use of walker with all mobility, taking up throw rugs, proper shoe use, and any other concerns about discharge. - Prognosis Good - Barriers to Discharge medical comorbidities, impaired mobility - Evaluation/Treatment Tolerance Patient tolerated treatment well - Medical Staff Made Aware Yes - Plan Treatment/Interventions ADL retraining;Functional transfer training;LE strengthening/ROM;Endurance training;Patient/family training;Equipment eval/education;Bed mobility;Gait training;Continued evaluation;Compensatory technique education;Neuromuscular re-education - PT Plan Skilled PT - Acute Care or IPR IPR - PT Frequency 5 days per week - PT Intensity 90 minutes - Anticipated Length of Stay 2 weeks from admisison, 08/28 days - PT - Next Appointment 06/23/25 - User Guerin (r) = Recorded By, (t) = Taken By, (c) = Cosigned By Initials Name Effective Dates Blayne Pope, PT 10/01/23 - Multi-Disciplinary Problems (from Physical Therapy) Active Problems Problem: PT STG 1 impaired bed mobility Start Date: 06/19/25 Goal Start Date Expected End Date End Date Pt will perform bed mobility with SBA to promote increased functional tasks. 06/19/25 06/26/25 -- Problem: PT STG 2 impaired transfers Start Date: 06/19/25 Goal Start Date Expected End Date End Date Pt will perform transfers with SBA to promote increased functional ADLs. 06/19/25 06/26/25 -- Problem: PT STG 3 impaired gait Start Date: 06/19/25 Goal Start Date Expected End Date End Date Pt will ambulate 125ft with appropriate device with CGA to promote increased functional household mobility 06/19/25 06/26/25 -- Problem: PT LTG 1 impaired bed mobility Start Date: 06/19/25 Goal Start Date Expected End Date End Date Pt will perform bed mobility with Forest to promote increased functional tasks. 06/19/25 07/03/25 -- Problem: PT LTG 2 impaired transfers Start Date: 06/19/25 Goal Start Date Expected End Date End Date Pt will perform transfers with Forest to promote increased functional ADLs. 06/19/25 07/03/25 -- Problem: PT LTG 3 impaired gait Start Date: 06/19/25 Goal Start Date Expected End Date End Date Pt will ambulate 150ft with appropriate device with SBA to promote increased functional household mobility. 06/19/25 07/03/25 -- Problem: PT LTG 4 education need Start Date: 06/19/25 Goal Start Date Expected End Date End Date Pt/family will voice understanding of discharge instructions, HEP, and safety to promote safe transition home. 06/19/25 07/03/25 -- Physical Therapy Progress Note Treatments may be performed by physical therapy assistants. Physical Therapy Visit * TSERING Newman - 06/22/2025 8:30 AM EDT Speech-Language Pathology Speech-Language Pathology Treatment Patient Name: Jose Sims Today's Date: 06/22/2025 Speech Therapy Flowsheet Data (last 10 hours) MACHINE PECAN PICKER Treatment - WedJune 22, 2025 Row Name 0830 MACHINE PECAN PICKER Last Visit MACHINE PECAN PICKER Received On 06/22/25 -OK General MACHINE PECAN PICKER Start Time 829 -OK MACHINE PECAN PICKER Stop Time 899 -OK MACHINE PECAN PICKER Time Calculation (min) 30 min -HI Family/Caregiver Present No -HI Subjective Current Problem stroke, acute, embolic -HI Patient Reports I feel pretty good -HI Patient Was Found In PT gym in wc with wheels locked and all needs within reach -OK Pain Assessment Pain Assessment No/denies pain -HI Pain Score 0 - No pain -HI Cognitive Skills Cognitive Skills Time 30 -HI Cognitive Skills Comments Repeat MMSE 30. Discharge planning conducted with patient who verbalized comprehension. -OK Comments Comments -- -HI At Session End Patient Was Left At nurses station sitting upright in wc with wheels locked and all needs within reach. -HI MACHINE PECAN PICKER Assessment Evaluation/Treatment Tolerance Patient tolerated treatment well -OK Plan Treatment/Interventions Cognitive communication functioning;Patient/family education -OK MACHINE PECAN PICKER Discharge Recommendations 07/06 supervision;Home with family support -OK Equipment Recommended none -HI MACHINE PECAN PICKER - OK to Discharge Yes -OK User Guerin (r) = Recorded By, (t) = Taken By, (c) = Cosigned By Initials Name Effective Dates HI THOMAS FelizMACHINE PECAN PICKER 06/04/25 - Consultations/Referrals/Coordination of Services: Multi-Disciplinary Problems (from Speech Therapy) Active Problems Not on file Speech-Language Pathology Progress Note Repeat MMSE 26/30. Discharge planning conducted with pt who verbalizes comprehension. Min assist required with memory & problem solving. 07/06 supervision recommended. Receptive & expressive language and speech WFL. Pt tolerates PO diet. Further ST not warranted at this time. * ANDRES Munoz/Anita - 06/22/2025 7:00 AM EDT Occupational Therapy Occupational Therapy Treatment Patient Name: Jose Sims Today's Date: 06/22/2025 Occupational Therapy Flowsheet Data (last 10 hours) OT Treatment - WedJune 22, 2025 Row Name 0700 General OT Start Time 0700 -CS OT Stop Time 0830 -CS OT Time Calculation (min) 90 min -CS Family/Caregiver Present No -CS Subjective Current Problem Stoke, acute, embolic -CS Patient Reports Pt reports feeling OK today. -CS Patient Was Found Pt sitting up in w/c at nurses station with self releasing lap belt and w/c alarmin use. Pt agreeable to therapy services. -CS Precautions Medical Precautions HRF, Cardiac protocol; (Hold PT/OT if HR is < 50 >120 or SBP is < 90 >180 mmHg), Aspiration precautions, -CS Vital Signs Pulse 86 -CS BP 133/67 -CS SpO2 96 % -CS Pain Assessment Pain Assessment No/denies pain -CS Feeding Feeding Level of Assistance Independent -CS Feeding Where Assessed Wheelchair -CS Grooming Grooming Level of Assistance Modified independent -CS Grooming Where Assessed Wheelchair;Sitting sinkside -CS Grooming Comments Pt complete all grooming parts in seated position. -CS UE Bathing UE Bathing Level of Assistance Setup -CS UE Bathing Where Assessed Wheelchair;Sitting sinkside -CS LE Bathing LE Bathing Level of Assistance Contact guard -CS LE Bathing Where Assessed Wheelchair;Standing sinkside;Sitting sinkside -CS LE Bathing Comments Pt able to wsah/dry all parts with CGA while standing to wash/dry buttocks/periarea. -CS UE Dressing UE Dressing Level of Assistance Setup -CS UE Dressing Where Assessed Wheelchair -CS LE Dressing LE Dressing Yes -CS LE Dressing Adaptive Equipment Walker -CS Pants Level of Assistance Contact guard -CS Sock Level of Assistance Setup -CS Shoe Level of Assistance Moderate assistance -CS Adult Briefs Level of Assistance Contact guard -CS LE Dressing Where Assessed Wheelchair -CS Toileting Toileting Level of Assistance Contact guard -CS Where Assessed Toilet -CS Toilet Transfers Toilet Transfer From Wheelchair -CS Toilet Transfer Type To and from -CS Toilet Transfer to Raised toilet seat with rails -CS Toilet Transfer Technique Stand pivot -CS Toilet Transfers Contact guard -CS Shower Transfers Shower Transfers Comments Pt requested to complete sponge bath. -CS Therapeutic Procedures Self Care/Home Management (ADLs) Time Entry 70 -CS Therapeutic Activity Therapeutic Activity Time Entry 20 -CS Therapeutic Activity 1 Pt completed word search puzzle activity working on improving FM coordination, scanning, leisure exploration and activity tolerance to promote improved independence with ADL's/mobility to aide in return home. -CS OT Assessment Evaluation/Treatment Tolerance Patient tolerated treatment well -CS Medical Staff Made Aware Yes -CS At Session End Patient Was Left Pt left sitting up in w/c with self releasing lap belt and w/c alarm in use. -CS User Guerin (r) = Recorded By, (t) = Taken By, (c) = Cosigned By Initials Name Effective Dates CS Rose Marie Jessica, OTR/L 10/01/23 - Multi-Disciplinary Problems (from Occupational Therapy) Active Problems Problem: OT STG 1; Impaired Bathing Start Date: 06/19/25 Goal Start Date Expected End Date End Date Pt will complete all parts of LB Bathing ADL tasks with CGA to aid in return home. 06/19/25 06/26/25 -- Problem: OT STG 2; Impaired UB Dressing Start Date: 06/19/25 Goal Start Date Expected End Date End Date Pt will complete all part of Upper Body Dressing tasks with Close Supervision to aid in safe returnhome. 06/19/25 06/26/25 -- Problem: OT STG 3; Impaired LB Dressing Start Date: 06/19/25 Goal Start Date Expected End Date End Date Pt will complete all parts Lower Body Dressing tasks with CGA to aid in safe return home. 06/19/25 06/26/25 -- Problem: OT STG 4; Impaired Toileting Start Date: 06/19/25 Goal Start Date Expected End Date End Date Pt will complete toileting hygiene tasks with CGA to aid in return home. 06/19/25 06/26/25 -- Problem: OT STG 5; Impaired Toileting Transfer Start Date: 06/19/25 Goal Start Date Expected End Date End Date Pt will require CGA with toileting transfers using least restrictive device as needed to aid in safe return home. 06/19/25 06/26/25 -- Problem: OT LTG 1; Impaired Feeding Start Date: 06/19/25 Goal Start Date Expected End Date End Date Pt will require Modified Independent with feeding tasks to aid in safe return home. 06/19/25 07/03/25 -- Problem: OT LTG 2; Impaired Grooming Start Date: 06/19/25 Goal Start Date Expected End Date End Date Pt will complete Grooming self-care tasks with Modified Independent to aid in safe return home. 06/19/25 07/03/25 -- Problem: OT LTG 3; Impaired Bathing Start Date: 06/19/25 Goal Start Date Expected End Date End Date Pt will complete all parts of Bathing ADL tasks with SBA to aid in return home. 06/19/25 07/03/25 -- Problem: OT LTG 4; Impaired Toileting Start Date: 06/19/25 Goal Start Date Expected End Date End Date Pt will complete toileting hygiene tasks with SBA to aid in return home. 06/19/25 07/03/25 -- Problem: OT LTG 5; Impaired HEP Start Date: 06/19/25 Goal Start Date Expected End Date End Date Pt will be educated on and verbalize and demonstrate understanding of HEP to promote increased strength to facilitate increased independence and safety with ADLs and functional transfers. 06/19/25 07/03/25 -- Pt participated in treatment with non skid footwear and gait belt for safety. Treatments may be performed by certified occupational therapy assistants. Occupational Therapy Progress Note * Fredo Benjamin OT Student - 06/21/2025 3:02 PM EDT Occupational Therapy Patient Name: Jose Sims Today's Date: 06/21/2025 06/21/25 1502 General OT Start Time 1500 OT Stop Time 1630 OT Time Calculation (min) 90 min Treatment Duration (min) 90 Minutes Response to Previous Treatment Patient with no complaints from previous session Family/Caregiver Present No Subjective Current Problem Stroke, acute, embolic Patient Reports Patient was pleasant and cooperative during treatment session. OT utilized gait belt and non skid socks for safety. Patient Was Found Upon OT arrival patient was lying supine in bed with bed alarm armed and all needs were within functional reach. Precautions Medical Precautions HRF, Cardiac protocol; (Hold PT/OT if HR is < 50 >120 or SBP is < 90 >180 mmHg), Aspiration precautions, Vital Signs Heart Rate 80 BP 134/63 SpO2 98 % (room air) Pain Assessment Pain Assessment No/denies pain Therapeutic Exercise Therapeutic Exercise Time Entry 30 Therapeutic Exercise Activity 1 Patient performed 5x10 reps on the rickshaw with 10lbs utilizing BUE seated at w/c level to increase activity tolerance, strengthening, and transfers needed for ADLs. Therapeutic Exercise Activity 2 Patient performed 3x10 reps of bicep curls with a 2lb dumbbell seated at w/c level to increase endurance, strengthening, and transfers needed for ADLs. Patient required assistance with L UE to avoid dropping the dumbbell. Therapeutic Activity Therapeutic Activity Time Entry 60 Therapeutic Activity 1 Patient completed 3x5 minute intervals on the arm bike utilizing BUE seated at w/c level to increase activity tolerance, strengthening, and transfers needed for ADLs. Emphasis placed on L UE kept falling off during the activity due to limited grasping. Therapeutic Activity 2 Patient engaged in 2 trials of cone stacking/unstacking seated at w/c level utilizing L UE to improve fine motor coordination/grasping, increase activity tolerance, and transfers needed for ADLs. Therapeutic Activity 3 Patient engaged in manipulating small objects with L UE and placing the object into a container seated at w/c level to improve fine motor coordination/grasping, increase endurance, and transfers needed for ADLs. Therapeutic Activity 4 Patient required min A to transfer from bed to w/c. OT Assessment Evaluation/Treatment Tolerance Patient tolerated treatment well Medical Staff Made Aware Yes Plan Treatment Interventions ADL retraining;Functional transfer training;UE strengthening/ROM;Endurance training;Patient/family training;Equipment evaluation/education;Fine motor coordination activities;Neuromuscular reeducation OT Plan Skilled OT Acute Care or IPR IPR OT Frequency 1 time per day until discharge OT Frequency 5 days per week OT Intensity 90 minutes Anticipated Length of Stay 2 weeks OT Discharge Recommendations Other (Comment) (continued assessment) Equipment Recommended Continued assessment OT Recommended Transfer Status (Min A) At Session End Patient Was Left At the end of treatment session patient was lying supine in bed with bed alarm armed and all needs were within functional reach. Occupational Therapy Treatment Multi-Disciplinary Problems (from Occupational Therapy) Active Problems Problem: OT STG 1; Impaired Bathing Start Date: 06/19/25 Goal Start Date Expected End Date End Date Pt will complete all parts of LB Bathing ADL tasks with CGA to aid in return home. 06/19/25 06/26/25 -- Problem: OT STG 2; Impaired UB Dressing Start Date: 06/19/25 Goal Start Date Expected End Date End Date Pt will complete all part of Upper Body Dressing tasks with Close Supervision to aid in safe returnhome. 06/19/25 06/26/25 -- Problem: OT STG 3; Impaired LB Dressing Start Date: 06/19/25 Goal Start Date Expected End Date End Date Pt will complete all parts Lower Body Dressing tasks with CGA to aid in safe return home. 06/19/25 06/26/25 -- Problem: OT STG 4; Impaired Toileting Start Date: 06/19/25 Goal Start Date Expected End Date End Date Pt will complete toileting hygiene tasks with CGA to aid in return home. 06/19/25 06/26/25 -- Problem: OT STG 5; Impaired Toileting Transfer Start Date: 06/19/25 Goal Start Date Expected End Date End Date Pt will require CGA with toileting transfers using least restrictive device as needed to aid in safe return home. 06/19/25 06/26/25 -- Problem: OT LTG 1; Impaired Feeding Start Date: 06/19/25 Goal Start Date Expected End Date End Date Pt will require Modified Independent with feeding tasks to aid in safe return home. 06/19/25 07/03/25 -- Problem: OT LTG 2; Impaired Grooming Start Date: 06/19/25 Goal Start Date Expected End Date End Date Pt will complete Grooming self-care tasks with Modified Independent to aid in safe return home. 06/19/25 07/03/25 -- Problem: OT LTG 3; Impaired Bathing Start Date: 06/19/25 Goal Start Date Expected End Date End Date Pt will complete all parts of Bathing ADL tasks with SBA to aid in return home. 06/19/25 07/03/25 -- Problem: OT LTG 4; Impaired Toileting Start Date: 06/19/25 Goal Start Date Expected End Date End Date Pt will complete toileting hygiene tasks with SBA to aid in return home. 06/19/25 07/03/25 -- Problem: OT LTG 5; Impaired HEP Start Date: 06/19/25 Goal Start Date Expected End Date End Date Pt will be educated on and verbalize and demonstrate understanding of HEP to promote increased strength to facilitate increased independence and safety with ADLs and functional transfers. 06/19/25 07/03/25 -- Treatments may be performed by certified occupational therapy assistants. Occupational Therapy Progress Note Cosigned by JULIA Cazares at 06/22/2025 8:17 AM EDT Associated attestation - Ayesha Goodson OTR/L - 06/22/2025 8:17 AM EDT OT was present and assisted during OT treatment session. OT has read and agrees with documentation completed by OT studentFredo. JULIA Cazares * Nuvia Johnson MD - 06/21/2025 2:48 PM EDT This is a [id number] encounter/evaluation by a rehabilitation physician. History of Present Illness: See H&P from 06/18/2025 Subjective No acute events overnight. Patient was examined this morning at nurses station Patient reported that she is doing well She denied any hematuria or hematochezia or melena Patient reports that she wants to go home tomorrow Interdisciplinary case conference with patient's daughter,. Reported that she is not able to come and take patient home until Wednesday. Patient and daughter agreeable to be discharged on Wednesday morning. Patient understands that she can stay longer to continue therapy but she is insisting that she is going home. Review of Systems A 10 point review of systems was performed and positive as written although Objective Physical Exam Visit Vitals BP 119/75 (BP Location: Right arm, Patient Position: Sitting) Pulse 84 Temp 98.1 ??F (36.7 ??C) (Oral) Resp 18 General: She is in no acute distress Bilateral infraorbital ecchymosis improving Cardiovascular: S1, S2 are audible Respiratory: On room air, nonlabored breathing, clear to auscultation bilaterally Gastrointestinal: Abdomen is soft and positive bowel sounds in all 4 quadrants, nontender to palpation Neurological: Awake, alert, speech is fluent with intact comprehension, follows commands Extremities: Bilateral lower extremities without edema Current Facility-Administered Medications Medication Dose Route Frequency Provider Last Rate Last Admin acetaminophen (Tylenol) tablet 650 mg 650 mg Oral q6h PRN Nuvia Johnson MD aluminum & magnesium hydroxide-simethicone (Mylanta) 200-200-20 MG/5ML oral suspension 20 mL 20mL Oral q4h PRN Nuvia Johnson MD atorvastatin (Lipitor) tablet 80 mg 80 mg Oral Nightly Nuvia Johnson MD 80 mg at 06/20/25 221 bisacodyl (Dulcolax) suppository 10 mg 10 mg Rectal Daily PRN Nuvia Johnson MD [Held by provider] bumetanide (Bumex) tablet 2 mg 2 mg Oral BID Nuvia Johnson MD carvedilol (Coreg) tablet 12.5 mg 12.5 mg Oral BID with meals Nuvia Johnson MD 12.5 mg at 06/21/25 0827 cyancobalamin (Vitamin B-12) tablet 500 mcg 500 mcg Oral Daily Nuvia Johnson MD 500 mcg at 06/21/25 0947 cyclobenzaprine (Flexeril) tablet 10 mg 10 mg Oral Nightly Nuvia Johnson MD 10 mg at 06/20/25 2210 glucose chewable tablet 12-16 g 12-16 g Oral q15 min PRN Nuvia Johnson MD Or glucose (Glutose) 40 % oral gel 15 g 15 g Oral q15 min PRN Nuvia Johnson MD Or dextrose 50 % solution 12.5-25 g 12.5-25 g Intravenous q15 min PRN Nuvia Johnson MD diphenoxylate-atropine (Lomotil) 2.5-0.025 MG per tablet 1 tablet 1 tablet Oral 4x daily PRN MD Hardeep 1 tablet at 06/19/25 0705 DULoxetine (Cymbalta) DR capsule 60 mg 60 mg Oral q AM Nuvia Johnson MD 60 mg at 06/21/25 0947 empagliflozin (Jardiance) tablet 10 mg 10 mg Oral Daily Nuvia Johnson MD 10 mg at 06/21/25 0947 folic acid (Folvite) tablet 1 mg 1 mg Oral Daily Nuiva Johnson MD 1 mg at 06/21/25 0947 gabapentin (Neurontin) capsule 400 mg 400 mg Oral BID Nuvia Johnson MD 400 mg at 06/21/25 0947 Glucagon Emergency injection kit 1 mg 1 mg Intramuscular PRN Nuvia Johnson MD insulin lispro (HumaLOG) injection 0-5 Units 0-5 Units Subcutaneous Before meals & nightly Nuvia Johnson MD ipratropium-albuterol (Duo-Neb) 0.5-2.5 mg/3 mL nebulizer solution 3 mL 3 mL Nebulization 4x daily Nuvia Johnson MD 3 mL at 06/19/25 1606 isosorbide mononitrate tablet 20 mg 20 mg Oral BID Nuvia Johnson MD 20 mg at 06/21/25 0954 magnesium hydroxide (Milk of Magnesia) 400 MG/5ML suspension 20 mL 20 mL Oral q8h PRN Nuvia Johnson MD magnesium oxide (Mag-Ox) tablet 800 mg 800 mg Oral BID Nuvia Johnson MD 800 mg at 06/21/25 0947 melatonin tablet 6 mg 6 mg Oral Nightly Nuvia Johnson MD 6 mg at 06/20/25 2210 metFORMIN (Glucophage) tablet 500 mg 500 mg Oral BID with meals Nuvia Johnson MD 500 mg at 06/21/25 0827 noalin nasal spa receptionist popswab 1 application. 1 application. Nasal q12h KALEY Nuvia Johnson MD 1 application. at 06/21/25 0947 ondansetron (Zofran) tablet 4 mg 4 mg Oral q6h PRN Nuvia Johnson MD Or ondansetron (Zofran) injection 4 mg 4 mg Intravenous q6h PRN Nuvia Johnson MD 4 mg at 06/20/25 1441 pantoprazole (ProtoNix) EC tablet 40 mg 40 mg Oral Daily before breakfast Nuvia Johnson MD 40 mg at 06/21/25 0606 potassium chloride CR (Klor-Con M20) ER tablet 20 mEq 20 mEq Oral BID Nuvia Johnson MD 20 mEq at 06/21/25 0947 valproic acid (Depakene) oral liquid 250 mg 250 mg Oral q8h [facility] Nuvia Johnson MD 250 mg at 06/21/25 1344 Labs Lab Results Component Value Date POCGLU 114 (H) 06/21/2025 BMP: Results from last 7 days Lab Units 06/21/25 0546 06/20/25 0558 06/19/25 0554 CREATININE mg/dL -- -- 0.62 BUN mg/dL -- -- 12 SODIUM mmol/L -- -- 142 POTASSIUM mmol/L 3.8 < > 2.9* CHLORIDE mmol/L -- -- 108 CO2 mmol/L -- -- 27 < > = values in this interval not displayed. CBC: Results from last 7 days Lab Units 06/21/25 0546 06/20/25 0557 WBC AUTO 10*3/uL -- 7.5 7.5 HEMOGLOBIN g/dL -- 7.9* HEMATOCRIT % -- 23.6* MCV fL -- 91.8 PLATELETS AUTO 10*3/uL 14* 13* Rehab progress: Patient was able to ambulate on 70 feet, 70 feet, 50 feet, 48 feet on level surface with rolling walker contact-guard assist, supine to sit independent, rolling [id number] independent, supine to prone independent, sit to stand and stand to sit with supervision, car transfers with supervision Impression/Plan Jose Sims is a 64 y.o. female admitted to inpatient rehabilitation for 1. Acute ischemic infarction involving the right cerebellum, right frontal, parietal and occipital lobes - Embolic in nature - Continue secondary stroke prophylaxis with atorvastatin 80 mg p.o. Cb, carvedilol 12.5 mg p.o. twice daily with meals - Unable to receive antiplatelets due to severe thrombocytopenia - Continue test 3 hours a day for 5 days of physical therapy, Occupational Therapy and/or speech therapy 2. Metastatic non-small cell lung carcinoma - Metastatic lesions to the brain s/p resection, gamma knife and XRT - Status post chemotherapy x 4 cycles 3. Hypertension - Stable - Continue Coreg 12.5 mg p.o. twice daily with meals - Continue isosorbide mononitrate 20 mg p.o. twice daily 4. Hyperlipidemia - Continue atorvastatin 80 mg p.o. nightly 5. Atrial fibrillation - Continue carvedilol 12.5 mg p.o. twice daily with meals - Currently not on anticoagulation due to severe thrombocytopenia 6. COPD - Continue oxygen via facemask as needed - Continue DuoNeb inhalation 4 times daily 7. Severe thrombocytopenia - Transfuse to keep platelet count between 10 and 20 or less than 50 if bleeding - Patient and patient's daughter were explained in detail regarding severe thrombocytopenia, reasons, monitoring of her platelet count, transfusion. They both understand that patient may have to return to the hospital or ER for transfusion because of thrombocytopenia. 8. Myoclonus - Continue valproic acid 250 mg p.o. every 8 hours 9. Neuropathic pain - Continue gabapentin 400 mg p.o. twice daily 10. Epistaxis - Improved - Avoid nasal cannula - Continue facemask 11. Steroid-induced hyperglycemia - Continue insulin sliding scale - Continue Jardiance 10 mg p.o. daily - Continue metformin 500 mg p.o. twice daily with meals 12. Hypokalemia - Administer potassium chloride 30 mEq IV once today - Continue potassium chloride 20 mEq p.o. twice daily from 06/20/2025 13. Hypomagnesemia - Administer magnesium sulfate 1 g IV once over 60 minutes 14. GI prophylaxis - Continue Protonix 40 mg p.o. daily before breakfast 15. DVT/PE - Status post IVC filter - Continue bilateral lower extremity sequential compression devices 16. Discharge disposition - Discharge home with daughter on 06/23/2025 * Mei Silva RN - 06/21/2025 11:52 AM EDT Wound Care Consult Visit Date: 06/21/2025 Patient Name: Jose Sims Date of : 1960 Reason for Consult: Wound History: Pertinent Labs: Albumin Date Value Ref Range Status 06/18/2025 3.5 3.5 - 5.1 g/dL Final Wound Assessment: Wound Team Summary Assessment: Skin intact over bony prominences Wound Team Plan: Mei Silva RN 06/21/2025 11:52 AM * aCit Acuna CCC-MACHINE PECAN PICKER - 06/21/2025 10:30 AM EDT Images from the original note were not included. Speech-Language Pathology Speech-Language Pathology Treatment Patient Name: Jose Sims Today's Date: 06/21/2025 Speech Therapy Flowsheet Data (last 10 hours) MACHINE PECAN PICKER Treatment - [facility] June 21, 2025 Row Name 1030 MACHINE PECAN PICKER Last Visit MACHINE PECAN PICKER Received On 06/21/25 -CD General MACHINE PECAN PICKER Start Time 1030 -CD MACHINE PECAN PICKER Stop Time 1100 -CD MACHINE PECAN PICKER Time Calculation (min) 30 min -CD Family/Caregiver Present No -CD Subjective Current Problem stroke, acute, embolic -CD Patient Reports I'm tired today -CD Patient Was Found Resting in bed -CD Pain Assessment Pain Assessment 0-10 -CD Pain Score 9 -CD Pain Location Abdomen -CD Pain Interventions Medication (See MAR) -CD Speech Speech Time 30 -CD Cognitive Skills Cognitive Skills Time 30 -CD Orientation min Cue for today's date -CD Organization WFL -CD Sequencing WFL -CD Memory min -CD Problem Solving WFL -CD Attention/Concentration WFL -CD Reasoning min -CD Reading WFL -CD Cognitive Skills Comments Pt given 3 words to remember. After 5 minutes, pt required min cues to recall words. Pt given cause & effect task. Pt answered correctly 6/9 trials. -CD At Session End Patient Was Left Resting in bed w/ all needs within reach -CD MACHINE PECAN PICKER Assessment Evaluation/Treatment Tolerance Patient tolerated treatment well -CD Plan Treatment/Interventions Cognitive communication functioning;Patient/family education -CD MACHINE PECAN PICKER - Next Appointment 06/22/25 -CD User Guerin (r) = Recorded By, (t) = Taken By, (c) = Cosigned By Initials Name Effective Dates CD Cait Acuna CCC-MACHINE PECAN PICKER 10/01/23 - Consultations/Referrals/Coordination of Services: Multi-Disciplinary Problems (from Speech Therapy) Active Problems Problem: Cognitive/Linguistics Start Date: 06/19/25 Goal Start Date Expected End Date End Date LTG - Patient will utilize compensatory intervention for memory and problem- solving to allow for safe completion of daily activities 06/19/25 07/10/25 -- Goal Start Date Expected End Date End Date STG - Patient will participate in further assessment of cognitive-linguistic skills 06/19/25 07/10/25 -- Goal Start Date Expected End Date End Date STG - Patient will complete functional problem-solving tasks for daily situations 06/19/25 07/10/25-- Goal Start Date Expected End Date End Date STG - Patient will complete simple problem solving tasks 06/19/25 07/10/25 -- Goal Start Date Expected End Date End Date STG - Patient will complete simple calculations for time/money management 06/19/25 07/10/25 -- Goal Start Date Expected End Date End Date STG - Patient will recall memory strategies 06/19/25 07/10/25 -- Goal Start Date Expected End Date End Date STG - Patient will complete thought organization tasks 06/19/25 07/10/25 -- Speech-Language Pathology Progress Note Pt given 3 words to remember. After 5 minutes, pt recalled 3/3 words with min cues. Pt given cause & effect activity. Pt answered correctly for 6/9 trials with min cues. * Baldo aZmudio EDUCATION PROFESSIONAL - 06/21/2025 8:01 AM EDT Images from the original note were not included. Physical Therapy Physical Therapy Treatment Patient Name: Jose Sims Today's Date: 06/21/2025 Physical Therapy Flowsheet Data (last 10 hours) PT Treatment - [facility] June 21, 2025 Row Name 0801 PT Last Visit Response to Previous Treatment Patient with no complaints from previous session. -LIDIA General PT Start Time 0800 -LIDIA PT Stop Time 929 -LIDIA PT Time Calculation (min) 90 min -LIDIA Family/Caregiver Present No -LIDIA Subjective Current Problem CVA -LIDIA Patient Reports Pt. agreeable to therapy. No new complaints noted -LIDIA Patient Was Found Pt. sitting in w/c at nurses station with staff present. Utilized gait belt, non skid socks, self release lap belt, and w/c alarm active for safety during treatment session -LIDIA Precautions Medical Precautions HRF, Cardiac protocol; (Hold PT/OT if HR is < 50 >120 or SBP is < 90 >180 mmHg), Aspiration precautions, -LIDIA Vital Signs Pulse 84 -LIDIA Heart Rate Source Monitor -LIDIA BP 119/75 -LIDIA BP Location Right arm -LIDIA BP Method Automatic -LIDIA Patient Position Sitting -LIDIA SpO2 96 % on room air. Pt's SpO2 remained above 94% via room air throughout treatment session -LIDIA Pain Assessment Pain Assessment No/denies pain -LIDIA Therapeutic Activity Therapeutic Activity Time Entry 45 -LIDIA Gait Training Gait Training Time Entry 45 -LIDIA Ambulation Ambulation Yes -LIDIA Ambulation 1 Surface 1 Level tile -LIDIA Device 1 Rolling walker -LIDIA Assistance 1 Contact guard -LIDIA Quality of Gait 1 slightly unsteady, impulsive at times. Pt required verbal cues for safety. Pt had1 LOB that pt was able to self correct. -LIDIA Comments/Distance (ft) 1 170' with 6 turns, 70' with 3 turns, 50' with 2 turns, 48' x 2 with 2 turns -LIDIA Ambulation 2 Surface 2 Uneven;Carpet -LIDIA Device 2 Rolling walker -LIDIA Assistance 2 Contact guard -LIDIA Quality of Gait 2 slightly unsteady, impulsive at times. Pt required verbal cues for safety. -LIDIA Comments/Distance (ft) 2 10' x 2 -LIDIA Stairs Stairs Yes -LIDIA Stairs Rails 1 Right -LIDIA Assistance 1 Contact guard -LIDIA Comment/Number of Steps 1 Pt. ascended/descended 6 stairs with CGA and step to gait -LIDIA Bed Mobility Bed Mobility Yes -LIDIA Bed Mobility 1 Bed Mobility From 1 Short sit -LIDIA Bed Mobility Type 1 To -LIDIA Bed Mobility to 1 Supine -LIDIA Level of Assistance 1 Independent -LIDIA Bed Mobility 2 Bed Mobility From 2 Supine -LIDIA Bed Mobility Type 2 To and from -LIDIA Bed Mobility to 2 Rolling right;Rolling left -LIDIA Level of Assistance 2 Independent -LIDIA Bed Mobility 3 Bed Mobility From 3 Supine -LIDIA Bed Mobility Type 3 To and from -LIDIA Bed Mobility to 3 Prone -LIDIA Level of Assistance 3 Independent -LIDIA Transfers Transfer Yes -LIDIA Transfer 1 Transfer From 1 Sit -LIDIA Transfer Type 1 To and from -LIDIA Transfer to 1 Stand -LIDIA Technique 1 Sit to stand;Stand to sit -LIDIA Transfer Device 1 armrests, RW -LIDIA Transfer Level of Assistance 1 Close supervision -LIDIA Transfers 2 Transfer From 2 Stand -LIDIA Transfer Type 2 To and from -LIDIA Transfer to 2 Car -LIDIA Technique 2 Stand pivot -LIDIA Transfer Device 2 RW, grab bar -LIDIA Transfer Level of Assistance 2 Close supervision -LIDIA Transfers 3 Transfer From 3 Stand -LIDIA Transfer Type 3 To and from -LIDIA Transfer to 3 Mat -LIDIA Technique 3 Stand pivot -LIDIA Transfer Device 3 RW -LIDIA Transfer Level of Assistance 3 Close supervision -LIDIA Wheelchair Activities Propulsion Yes -LIDIA Propulsion Type 1 Manual -LIDIA Level 1 Level tile -LIDIA Method 1 Right upper extremity;Left upper extremity -LIDIA Level of Assistance 1 Maximum assistance -LIDIA Description/Details 1 Pt self propelled w/c 10ft. Pt required max A to propel w/c 50ft with 2 turns, and 150ft with 4 turns due to poor coordination with LUE. Pt required verbal cues and manual assistance to avoid obstacles and complete turns -LIDIA Other Activity Other Activity 1 Pt. stood with RW and picked up object from floor with billing services manager with SBA. -LIDIA Other Activity 2 Pt. stated that her L hand felt heavy and she felt like she could not pick anything up with it. Nurse Lyssa notified -LIDIA At Session End Patient Was Left Pt. sitting in w/c at nurses station with staff present, nursing notified, self release lap belt, w/c alarm active, and all needs in reach -LIDIA PT Assessment PT Assessment Pt performed gait training, transfers, stair training, and bed mobility in order to improve strength and endurance to support functional mobility. -LIDIA Prognosis Good -LIDIA Evaluation/Treatment Tolerance Patient tolerated treatment well no signs or symptoms of distress noted -LIDIA Medical Staff Made Aware Yes -LIDIA Plan Treatment/Interventions ADL retraining;Functional transfer training;LE strengthening/ROM;Endurance training;Patient/family training;Equipment eval/education;Bed mobility;Gait training;Compensatory technique education;Continued evaluation;Neuromuscular re-education -LIDIA PT Plan Skilled PT -LIDIA Acute Care or IPR IPR -LIDIA PT Frequency 5 days per week -LIDIA PT Intensity 90 minutes -LIDIA Anticipated Length of Stay 2 weeks from admisison, 08/28 days -LIDIA PT - Next Appointment 06/22/25 -LIDIA User Guerin (r) = Recorded By, (t) = Taken By, (c) = Cosigned By Initials Name Effective Dates LIDIA Zamudio, EDUCATION PROFESSIONAL 08/31/24 - Multi-Disciplinary Problems (from Physical Therapy) Active Problems Problem: PT STG 1 impaired bed mobility Start Date: 06/19/25 Goal Start Date Expected End Date End Date Pt will perform bed mobility with SBA to promote increased functional tasks. 06/19/25 06/26/25 -- Problem: PT STG 2 impaired transfers Start Date: 06/19/25 Goal Start Date Expected End Date End Date Pt will perform transfers with SBA to promote increased functional ADLs. 06/19/25 06/26/25 -- Problem: PT STG 3 impaired gait Start Date: 06/19/25 Goal Start Date Expected End Date End Date Pt will ambulate 125ft with appropriate device with CGA to promote increased functional household mobility 06/19/25 06/26/25 -- Problem: PT LTG 1 impaired bed mobility Start Date: 06/19/25 Goal Start Date Expected End Date End Date Pt will perform bed mobility with [place] to promote increased functional tasks. 06/19/25 07/03/25 -- Problem: PT LTG 2 impaired transfers Start Date: 06/19/25 Goal Start Date Expected End Date End Date Pt will perform transfers with [place] to promote increased functional ADLs. 06/19/25 07/03/25 -- Problem: PT LTG 3 impaired gait Start Date: 06/19/25 Goal Start Date Expected End Date End Date Pt will ambulate 150ft with appropriate device with SBA to promote increased functional household mobility. 06/19/25 07/03/25 -- Problem: PT LTG 4 education need Start Date: 06/19/25 Goal Start Date Expected End Date End Date Pt/family will voice understanding of discharge instructions, HEP, and safety to promote safe transition home. 06/19/25 07/03/25 -- Physical Therapy Progress Note Treatments may be performed by physical therapy assistants. Physical Therapy Visit * Fredo Benjamin OT Student - 06/20/2025 2:32 PM EDT Images from the original note were not included. Occupational Therapy Occupational Therapy Treatment Patient Name: Jose Sims Today's Date: 06/20/2025 Occupational Therapy Flowsheet Data (last 10 hours) OT Treatment - WedJune 20, 2025 Row Name 1432 General OT Start Time 1430 -MS OT Stop Time 1600 -MS OT Time Calculation (min) 90 min -MS Treatment Duration (min) 90 Minutes -MS Response to Previous Treatment Patient with no complaints from previous session -MS Family/Caregiver Present No -MS Subjective Current Problem Stroke, acute, embolic -MS Patient Reports Patient was pleasant and cooperative during treatment session. OT utilized gait belt and non skid socks for safety. -MS Patient Was Found Upon OT arrival patient was lying supine in bed with bed alarm armed and all needs were within functional reach. -MS Precautions Medical Precautions HRF, Cardiac protocol; (Hold PT/OT if HR is < 50 >120 or SBP is < 90 >180 mmHg), Aspiration precautions, -MS Vital Signs Pulse 78 -MS BP 132/65 -MS SpO2 95 % room air -MS Pain Assessment Pain Assessment No/denies pain -MS Therapeutic Activity Therapeutic Activity Time Entry 90 -MS Therapeutic Activity 1 Patient completed 3x5 minute intervals on the arm bike utilizing BUE seated at w/c level to increase activity tolerance, strengthening, and transfers needed for ADLs. -MS Therapeutic Activity 2 Patient engaged in 2 trials of the graded pinch activity seated at w/c levelutilizing BUE to improve fine motor coordination, increase activity tolerance, and transfers neededfor ADLs. -MS Therapeutic Activity 3 Patient engaged in 2 trials of cone stacking/unstacking seated at w/c level utilizing L UE to improve fine motor coordination/grasping, increase activity tolerance, and transfers needed for ADLs. -MS Therapeutic Activity 4 Patient completed 1 trial of the shoulder arch activity while standing with min A utilizing L UE to improve fine motor coordination, increase activity tolerance, and transfers needed for ADLs. -MS OT Assessment Evaluation/Treatment Tolerance Patient tolerated treatment well -MS Medical Staff Made Aware Yes -MS Plan Treatment Interventions ADL retraining;Functional transfer training;UE strengthening/ROM;Endurance training;Patient/family training;Equipment evaluation/education;Fine motor coordination activities;Neuromuscular reeducation -MS OT Plan Skilled OT -MS Acute Care or IPR IPR -MS OT Frequency 1 time per day until discharge -MS OT Frequency 5 days per week -MS OT Intensity 90 minutes -MS Anticipated Length of Stay 2 weeks -MS OT Discharge Recommendations Other (Comment) continued assessment -MS Equipment Recommended Continued assessment -MS OT Recommended Transfer Status -- Min A -MS At Session End Patient Was Left At the end of treatment session patient was lying supine in bed with bed alarm armed, nurse present, and all needs were within functional reach. -MS User Guerin (r) = Recorded By, (t) = Taken By, (c) = Cosigned By Initials Name Effective Dates MS Fredo Benjamin, OT Student 03/20/25 - Multi-Disciplinary Problems (from Occupational Therapy) Active Problems Problem: OT STG 1; Impaired Bathing Start Date: 06/19/25 Goal Start Date Expected End Date End Date Pt will complete all parts of LB Bathing ADL tasks with CGA to aid in return home. 06/19/25 06/26/25 -- Problem: OT STG 2; Impaired UB Dressing Start Date: 06/19/25 Goal Start Date Expected End Date End Date Pt will complete all part of Upper Body Dressing tasks with Close Supervision to aid in safe returnhome. 06/19/25 06/26/25 -- Problem: OT STG 3; Impaired LB Dressing Start Date: 06/19/25 Goal Start Date Expected End Date End Date Pt will complete all parts Lower Body Dressing tasks with CGA to aid in safe return home. 06/19/25 06/26/25 -- Problem: OT STG 4; Impaired Toileting Start Date: 06/19/25 Goal Start Date Expected End Date End Date Pt will complete toileting hygiene tasks with CGA to aid in return home. 06/19/25 06/26/25 -- Problem: OT STG 5; Impaired Toileting Transfer Start Date: 06/19/25 Goal Start Date Expected End Date End Date Pt will require CGA with toileting transfers using least restrictive device as needed to aid in safe return home. 06/19/25 06/26/25 -- Problem: OT LTG 1; Impaired Feeding Start Date: 06/19/25 Goal Start Date Expected End Date End Date Pt will require Modified Independent with feeding tasks to aid in safe return home. 06/19/25 07/03/25 -- Problem: OT LTG 2; Impaired Grooming Start Date: 06/19/25 Goal Start Date Expected End Date End Date Pt will complete Grooming self-care tasks with Modified Independent to aid in safe return home. 06/19/25 07/03/25 -- Problem: OT LTG 3; Impaired Bathing Start Date: 06/19/25 Goal Start Date Expected End Date End Date Pt will complete all parts of Bathing ADL tasks with SBA to aid in return home. 06/19/25 07/03/25 -- Problem: OT LTG 4; Impaired Toileting Start Date: 06/19/25 Goal Start Date Expected End Date End Date Pt will complete toileting hygiene tasks with SBA to aid in return home. 06/19/25 07/03/25 -- Problem: OT LTG 5; Impaired HEP Start Date: 06/19/25 Goal Start Date Expected End Date End Date Pt will be educated on and verbalize and demonstrate understanding of HEP to promote increased strength to facilitate increased independence and safety with ADLs and functional transfers. 06/19/25 07/03/25 -- Treatments may be performed by certified occupational therapy assistants. Occupational Therapy Progress Note Cosigned by JULIA Cazares at 06/21/2025 8:46 AM EDT Associated attestation - Ayesha Goodson OTR/L - 06/21/2025 8:46 AM EDT OT was present and assisted during OT treatment session. OT has read and agrees with documentation completed by OT studentFredo. JULIA Cazares * Nuvia Johnson MD - 06/20/2025 12:22 PM EDT This is a [id number] encounter/evaluation by a rehabilitation physician. History of Present Illness: See H&P from 06/18/2025 Subjective No acute events overnight. Patient was examined this morning in physical therapy gym Patient reported that she slept well last night and through this morning She denies any dyspnea or chest pain Denied any bleeding in her stools or urine Denies any fatigue or dizziness/lightheadedness Review of Systems A 10 point review of systems was performed and positive as written although Objective Physical Exam Visit Vitals BP 143/64 (BP Location: Left arm, Patient Position: Sitting) Pulse 77 Temp 97.9 ??F (36.6 ??C) (Temporal) Resp 20 General: She is in no acute distress Cardiovascular: S1, S2 normal Respiratory: She is on room air Nonlabored breathing Clear to auscultation bilateral upper and middle lung baptiste Gastrointestinal: Abdomen is soft, nondistended, nontender to palpation Neurological: Awake, alert, speech is fluent with intact comprehension follows commands Extremities: Bilateral lower extremities without edema Current Facility-Administered Medications Medication Dose Route Frequency Provider Last Rate Last Admin acetaminophen (Tylenol) tablet 650 mg 650 mg Oral q6h PRN Nuvia Johnson MD aluminum & magnesium hydroxide-simethicone (Mylanta) 200-200-20 MG/5ML oral suspension 20 mL 20mL Oral q4h PRN Nuvia Johnson MD atorvastatin (Lipitor) tablet 80 mg 80 mg Oral Nightly Nuvia Johnson MD 80 mg at 06/19/252142 bisacodyl (Dulcolax) suppository 10 mg 10 mg Rectal Daily PRN Nuvia Johnson MD [Held by provider] bumetanide (Bumex) tablet 2 mg 2 mg Oral BID Nuvia Johnson MD carvedilol (Coreg) tablet 12.5 mg 12.5 mg Oral BID with meals Nuvia Johnson MD 12.5 mg at 06/20/25 09 cyancobalamin (Vitamin B-12) tablet 500 mcg 500 mcg Oral Daily Nuvia Johnson MD 500 mcg at 06/20/25 09 cyclobenzaprine (Flexeril) tablet 10 mg 10 mg Oral Nightly Nuvia Johnson MD 10 mg at 06/19/252142 glucose chewable tablet 12-16 g 12-16 g Oral q15 min PRN Nuvia Johnson MD Or glucose (Glutose) 40 % oral gel 15 g 15 g Oral q15 min PRN Nuvia Johnson MD Or dextrose 50 % solution 12.5-25 g 12.5-25 g Intravenous q15 min PRN Nuvia Johnson MD diphenoxylate-atropine (Lomotil) 2.5-0.025 MG per tablet 1 tablet 1 tablet Oral 4x daily PRN MD Hardeep 1 tablet at 06/19/25 0705 DULoxetine (Cymbalta) DR capsule 60 mg 60 mg Oral q AM Nuvia Johnson MD 60 mg at 06/20/25 09 empagliflozin (Jardiance) tablet 10 mg 10 mg Oral Daily Nuvia Johnson MD 10 mg at 06/20/25 09 folic acid (Folvite) tablet 1 mg 1 mg Oral Daily Nuvia Johnson MD 1 mg at 06/20/25 09 gabapentin (Neurontin) capsule 400 mg 400 mg Oral BID Nuvia Johnson MD 400 mg at 06/20/25 09 Glucagon Emergency injection kit 1 mg 1 mg Intramuscular PRN Nuvia Johnson MD insulin lispro (HumaLOG) injection 0-5 Units 0-5 Units Subcutaneous Before meals & nightly Nuvia Johnson MD ipratropium-albuterol (Duo-Neb) 0.5-2.5 mg/3 mL nebulizer solution 3 mL 3 mL Nebulization 4x daily Nuvia Johnson MD 3 mL at 06/19/25 1606 isosorbide mononitrate tablet 20 mg 20 mg Oral BID Nuvia Johnson MD 20 mg at 06/20/25 09 magnesium hydroxide (Milk of Magnesia) 400 MG/5ML suspension 20 mL 20 mL Oral q8h PRN Nuvia Johnson MD magnesium oxide (Mag-Ox) tablet 800 mg 800 mg Oral BID Nuvia Johnson MD 800 mg at 06/20/25919 melatonin tablet 6 mg 6 mg Oral Nightly Nuvia Johnson MD 6 mg at 06/19/25 2143 metFORMIN (Glucophage) tablet 500 mg 500 mg Oral BID with meals Nuvia Johnson MD 500 mg at 06/20/25 09 nozin nasal spa receptionist popswab 1 application. 1 application. Nasal q12h KALEY Nuvia Johnson MD 1 application. at 06/20/25 09 ondansetron (Zofran) tablet 4 mg 4 mg Oral q6h PRN Nuvia Johnson MD Or ondansetron (Zofran) injection 4 mg 4 mg Intravenous q6h PRN Nuvia Johnson MD 4 mg at 06/18/25 192 pantoprazole (ProtoNix) EC tablet 40 mg 40 mg Oral Daily before breakfast Nuvia Johnson MD 40 mg at 06/20/25 0633 potassium chloride CR (Klor-Con M20) ER tablet 20 mEq 20 mEq Oral BID Nuvia Johnson MD 20 mEq at 06/20/25 0920 valproic acid (Depakene) oral liquid 250 mg 250 mg Oral q8h [facility] Nuvia Johnson MD 250 mg at 06/20/25 0538 Labs Lab Results Component Value Date POCGLU 122 (H) 06/20/2025 BMP: Results from last 7 days Lab Units 06/20/25 0558 06/19/25 0554 CREATININE mg/dL -- 0.62 BUN mg/dL -- 12 SODIUM mmol/L -- 142 POTASSIUM mmol/L 3.4 2.9* CHLORIDE mmol/L -- 108 CO2 mmol/L -- 27 CBC: Results from last 7 days Lab Units 06/20/25 0557 WBC AUTO 10*3/uL 7.5 7.5 HEMOGLOBIN g/dL 7.9* HEMATOCRIT % 23.6* MCV fL 91.8 PLATELETS AUTO 10*3/uL 13* Rehab progress: Patient was able to perform rolling [id number] independently, supine to sit with min assist, sit to supine with min assist, sit to stand and stand to sit with min assist, stand pivot transfers withmin assist, ambulated 100 feet, 50 feet on level surface with rolling walker min assist, 10 feet oncarpet with rolling walker min assist Impression/Plan Jose Sims is a 64 y.o. female admitted to inpatient rehabilitation for 1. Acute ischemic infarction involving the right cerebellum, right frontal, parietal and occipital lobes - Embolic in nature - Continue secondary stroke prophylaxis with atorvastatin 80 mg p.o. Cb, carvedilol 12.5 mg p.o. twice daily with meals - Unable to receive antiplatelets due to severe thrombocytopenia - Continue test 3 hours a day for 5 days of physical therapy, Occupational Therapy and/or speech therapy 2. Metastatic non-small cell lung carcinoma - Metastatic lesions to the brain s/p resection, gamma knife and XRT - Status post chemotherapy x 4 cycles 3. Hypertension - Stable - Continue Coreg 12.5 mg p.o. twice daily with meals - Continue isosorbide mononitrate 20 mg p.o. twice daily 4. Hyperlipidemia - Continue atorvastatin 80 mg p.o. nightly 5. Atrial fibrillation - Continue carvedilol 12.5 mg p.o. twice daily with meals - Currently not on anticoagulation due to severe thrombocytopenia 6. COPD - Continue oxygen via facemask as needed - Continue DuoNeb inhalation 4 times daily 7. 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 every 8 hours 9. Neuropathic pain - Continue gabapentin 400 mg p.o. twice daily 10. Epistaxis - Improved - Avoid nasal cannula - Continue facemask 11. Steroid-induced hyperglycemia - Continue insulin sliding scale - Continue Jardiance 10 mg p.o. daily - Continue metformin 500 mg p.o. twice daily with meals 12. Hypokalemia - Administer potassium chloride 30 mEq IV once today - Continue potassium chloride 20 mEq p.o. twice daily from 06/20/2025 13. Hypomagnesemia - Administer magnesium sulfate 1 g IV once over 60 minutes 14. GI prophylaxis - Continue Protonix 40 mg p.o. 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 Pt turns self in bed. Wound Team Plan: Stanislav Perry RN 06/20/2025 11:29 AM * Baldo Zamudio PTA - 06/20/2025 11:01 AM EDT Images from the original note were not included. Physical Therapy Physical Therapy Treatment Patient Name: Jose Sims Today's Date: 06/20/2025 Physical Therapy Flowsheet Data (last 10 hours) PT Treatment - WedJune 20, 2025 Row Name 1101 PT Last Visit Response to Previous Treatment Patient with no complaints from previous session. -[facility] General PT Start Time 1100 -[facility] PT Stop Time 1230 -[facility] PT Time Calculation (min) 90 min -[facility] Family/Caregiver Present No -[facility] Subjective Current Problem CVA -[facility] Patient Reports Pt. agreeable to therapy. No new complaints noted -[facility] Patient Was Found Pt. supine in bed with bed alarm active. Utilized gait belt, non skid socks, selfrelease lap belt, and w/c alarm active for safety during treatment session -[facility] Precautions Medical Precautions HRF, Cardiac protocol; (Hold PT/OT if HR is < 50 >120 or SBP is < 90 >180 mmHg), Aspiration precautions, -[facility] Vital Signs Pulse 77 -[facility] Heart Rate Source Monitor -[facility] BP 143/64 -[facility] BP Location Left arm -[facility]IA BP Method Automatic -[facility] Patient Position Sitting -[facility] SpO2 95 % on room air -[facility] Pain Assessment Pain Assessment No/denies pain -[facility] Therapeutic Activity Therapeutic Activity Time Entry 30 -[facility] Balance/Neuromuscular Re-Education Neuromuscular Re-Education Time Entry 15 -[facility] Balance/Neuromuscular Re-Education Activity 1 Pt. performed dynamic and static standing balance activities in order to improve standing balance to support functional mobility. Pt ambulated 120ft on level surfaces and reached for cones placed around PT gym at various levels outside [place]. Pt utilized LUE to reach for cones. Pt worked on weight shifts, reaching outside [place] and across midline in orderto challenge standing balance. -[facility] Gait Training Gait Training Time Entry 45 -[facility] Ambulation Ambulation Yes -[facility] Ambulation 1 Surface 1 Level tile -[facility] Device 1 No device -[facility] Assistance 1 Minimum assistance -[facility] Quality of Gait 1 unsteady, impulsive at times. Pt required constant verbal cues for safety and to maintain proper pace. Pt was gliding reach for garland, and rails -[facility] Comments/Distance (ft) 1 220' with 5 turns, 110' with 3 turns, 20' with 2 turns -[facility] Ambulation 2 Surface 2 Level tile -[facility] Device 2 Rolling walker -[facility]IA Assistance 2 Contact guard -[facility] Quality of Gait 2 impulsive at times. Pt required verbal cues for safety and to maintain proper pace. Pt required sitting rest break on second trial of ambulation due to fatigue -[facility] Comments/Distance (ft) 2 150' with 4 turns, 50' with 2 turns, 100' with 5 turns, 120' with 4 turns,48' x 2 with 2 turns -[facility] Ambulation 3 Surface 3 Uneven;Carpet -[facility] Device 3 Rolling walker -[facility] Assistance 3 Contact guard -[facility] Quality of Gait 3 impulsive at times. Pt required verbal cues for safety and to maintain proper pace. -[facility] Comments/Distance (ft) 3 10' -[facility] Stairs Stairs Yes -[facility] Stairs Rails 1 Right -[facility] Assistance 1 Contact guard -[facility] Comment/Number of Steps 1 Pt. ascended/descended 6 stairs with CGA and step to gait -[facility] Bed Mobility Bed Mobility Yes -[facility] Bed Mobility 1 Bed Mobility From 1 Supine -[facility] Bed Mobility Type 1 To -[facility] Bed Mobility to 1 Short sit -[facility] Level of Assistance 1 Close supervision -[facility] Transfers Transfer Yes -[facility] Transfer 1 Transfer From 1 Sit -[facility] Transfer Type 1 To and from -[facility] Transfer to 1 Stand -[facility] Technique 1 Sit to stand;Stand to sit -[facility] Transfer Level of Assistance 1 Close supervision -[facility] Transfers 2 Transfer From 2 Stand -[facility] Transfer Type 2 To and from -[facility] Transfer to 2 Toilet -[facility]IA Technique 2 Stand pivot -[facility]IA Transfer Device 2 grab bars -L[facility]IA Transfer Level of Assistance 2 Close supervision -[facility]IA Transfers 3 Transfer From 3 Stand -[facility]IA Transfer Type 3 To and from -L[facility]IA Transfer to 3 Chair with arms -[facility]IA Technique 3 Stand pivot -[facility] Transfer Device 3 armrests -LIDIA Transfer Level of Assistance 3 Close supervision -[facility] Other Activity Other Activity 1 Pt c/o feeling SOA during second trial of ambulation. Pt's SpO2 was 95% on room air -[facility] At Session End Patient Was Left Pt. sitting in dining room with staff present, nursing notified, self release lap belt, and w/c alarm active. -[facility] PT Assessment PT Assessment Pt. performed gait training, stair training, transfers, bed mobility, and balance training in order to improve strength, endurance, and balance to support functional mobility. -[facility] Prognosis Good -[facility] Evaluation/Treatment Tolerance Patient tolerated treatment well no signs or symptoms of distress noted -[facility] Medical Staff Made Aware Yes -[facility] Plan Treatment/Interventions ADL retraining;Functional transfer training;LE strengthening/ROM;Endurance training;Patient/family training;Equipment eval/education;Bed mobility;Gait training;Compensatory technique education;Continued evaluation;Neuromuscular re-education -[facility] PT Plan Skilled PT -[facility] Acute Care or IPR IPR -[facility] PT Frequency 5 days per week -[facility] PT Intensity 90 minutes -[facility] Anticipated Length of Stay 2 weeks from admisison, 08/28 days -[facility] PT - Next Appointment 06/21/25 -[facility] User Guerin (r) = Recorded By, (t) = Taken By, (c) = Cosigned By Initials Name Effective Dates [facility] Baldo Zamudio, EDUCATION PROFESSIONAL 08/31/24 - Multi-Disciplinary Problems (from Physical Therapy) Active Problems Problem: PT STG 1 impaired bed mobility Start Date: 06/19/25 Goal Start Date Expected End Date End Date Pt will perform bed mobility with SBA to promote increased functional tasks. 06/19/25 06/26/25 -- Problem: PT STG 2 impaired transfers Start Date: 06/19/25 Goal Start Date Expected End Date End Date Pt will perform transfers with SBA to promote increased functional ADLs. 06/19/25 06/26/25 -- Problem: PT STG 3 impaired gait Start Date: 06/19/25 Goal Start Date Expected End Date End Date Pt will ambulate 125ft with appropriate device with CGA to promote increased functional household mobility 06/19/25 06/26/25 -- Problem: PT LTG 1 impaired bed mobility Start Date: 06/19/25 Goal Start Date Expected End Date End Date Pt will perform bed mobility with Forest to promote increased functional tasks. 06/19/25 07/03/25 -- Problem: PT LTG 2 impaired transfers Start Date: 06/19/25 Goal Start Date Expected End Date End Date Pt will perform transfers with Forest to promote increased functional ADLs. 06/19/25 07/03/25 -- Problem: PT LTG 3 impaired gait Start Date: 06/19/25 Goal Start Date Expected End Date End Date Pt will ambulate 150ft with appropriate device with SBA to promote increased functional household mobility. 06/19/25 07/03/25 -- Problem: PT LTG 4 education need Start Date: 06/19/25 Goal Start Date Expected End Date End Date Pt/family will voice understanding of discharge instructions, HEP, and safety to promote safe transition home. 06/19/25 07/03/25 -- Physical Therapy Progress Note Treatments may be performed by physical therapy assistants. Physical Therapy Visit * Cait Acuna CCC-MACHINE PECAN PICKER - 06/20/2025 8:30 AM EDT Images from the original note were not included. Speech-Language Pathology Speech-Language Pathology Treatment Patient Name: Jose Sims Today's Date: 06/20/2025 Date of Evaluation: Speech Therapy Flowsheet Data (last 10 hours) MACHINE PECAN PICKER Treatment - WedJune 20, 2025 Row Name 0900 MACHINE PECAN PICKER Last Visit MACHINE PECAN PICKER Received On 06/20/25 -CD General MACHINE PECAN PICKER Start Time 0830 -CD MACHINE PECAN PICKER Stop Time 0900 -CD MACHINE PECAN PICKER Time Calculation (min) 30 min -CD Family/Caregiver Present No -CD Subjective Current Problem stroke, acute, embolic -CD Patient Reports I feel fine -CD Patient Was Found sitting upright in wc at nurses station -CD Pain Assessment Pain Assessment No/denies pain -CD Pain Score 0 - No pain -CD Pain Interventions Medication (See MAR) -CD Cognitive Skills Cognitive Skills Time 30 -CD Orientation min Today's date min cue -CD Organization WFL -CD Sequencing WFL -CD Memory min -CD Problem Solving WFL -CD Attention/Concentration WFL -CD Reasoning WFL -CD Reading WFL -CD Cognitive Skills Comments Pt completed memory task correctly 13/15 trials. Pt completed problem solving task correctly 4/4 trials -CD At Session End Patient Was Left At nurses station in wc w/ wheels locked and all needs within reach -CD MACHINE PECAN PICKER Assessment Evaluation/Treatment Tolerance Patient tolerated treatment well -CD Plan Treatment/Interventions Cognitive communication functioning;Patient/family education -CD MACHINE PECAN PICKER - Next Appointment 06/21/25 -CD User Guerin (r) = Recorded By, (t) = Taken By, (c) = Cosigned By Initials Name Effective Dates CD Cait Acuna CCC-MACHINE PECAN PICKER 10/01/23 - Consultations/Referrals/Coordination of Services: Multi-Disciplinary Problems (from Speech Therapy) Active Problems Problem: Cognitive/Linguistics Start Date: 06/19/25 Goal Start Date Expected End Date End Date LTG - Patient will utilize compensatory intervention for memory and problem- solving to allow for safe completion of daily activities 06/19/25 07/10/25 -- Goal Start Date Expected End Date End Date STG - Patient will participate in further assessment of cognitive-linguistic skills 06/19/25 07/10/25 -- Goal Start Date Expected End Date End Date STG - Patient will complete functional problem-solving tasks for daily situations 06/19/25 07/10/25-- Goal Start Date Expected End Date End Date STG - Patient will complete simple problem solving tasks 06/19/25 07/10/25 -- Goal Start Date Expected End Date End Date STG - Patient will complete simple calculations for time/money management 06/19/25 07/10/25 -- Goal Start Date Expected End Date End Date STG - Patient will recall memory strategies 06/19/25 07/10/25 -- Goal Start Date Expected End Date End Date STG - Patient will complete thought organization tasks 06/19/25 07/10/25 -- Speech-Language Pathology Progress Note Pt was given picture memory task and recalled items in pictures correctly with minimal cues for 13/15 trials. Pt was given problem solving task to determine one item that does not belong in a sequence of pictures. She identified item correctly for 4/4 trials with no cues provided. * Blayne Pope, PT - 06/19/2025 1:15 PM EDT Images from the original note were not included. Physical Therapy Physical Therapy Evaluation Patient Name: Jose Sims Today's Date: 06/19/2025 Physical Therapy Flowsheet Data (last 10 hours) PT Evaluation - WedJune 19, 2025 Row Name 1145 General PT Start Time 1145 - PT Stop Time 1315 - PT Time Calculation (min) 90 min - Family/Caregiver Present No - PT Evaluation Time Entry PT Evaluation (Complex) Time Entry 90 - Subjective Current Problem CVA - Patient Reports Pt voices no specific complaints and is agreeable to therapy. - Patient Was Found Pt sitting in w/c in nsg station. Pt does not appear to be in any pain or distress. Pt utilized gait belt and non skid socks for safety. - Precautions Medical Precautions HRF, Cardiac protocol; (Hold PT/OT if HR is < 50 >120 or SBP is < 90 >180 mmHg), Aspiration precautions, - Vital Signs Pulse 85 - Heart Rate Source Monitor - BP 115/75 - BP Location Left arm - BP Method Automatic - Patient Position Sitting - SpO2 93 % room air, pt states that she does not want to use oxygen - Pain Assessment Pain Assessment No/denies pain - Home Living Type of Home House - Lives With Alone - Home Adaptive Equipment Walker rolling or standard;Wheelchair-manual;Bedside commode pt states thatshe has a standard walker - Home Living Comments Pt statse that she lives alone but has family that is able to assist if needed. - Home Access Stairs to enter with rails - Entrance Stairs-Rails Both - Entrance Stairs-Number of Steps 4 - Prior Function Level of [place] Independent with ADLs and functional transfers;Independent with homemaking with ambulation - Prior Function Comments Pt states that she lived alone prior and was completely independent with all mobility and ADLs. Pt states that she did her own cooking and cleaning at home. - Sensation Light Touch Partial deficits in the LLE - Proprioception Proprioception Partial deficits in the LLE;Partial deficits in the LUE - Proprioception Comments Pt demonstrates decresaed proprioception in left thumb and left big toe during testing. - Perception Inattention/Neglect Appears intact - Coordination Movements are Fluid and Coordinated No - Coordination and Movement Description LUE limited with repeated finger to nose, and with LE heel toshin, and with rapid alternating movements. Pt demonstrates moderate deficits. - Static Sitting Balance Static Sitting-Balance Support Right upper extremity supported;Left upper extremity supported;Feet supported - Static Sitting-Level of Assistance Close supervision - Dynamic Sitting Balance Dynamic Sitting-Balance Support Right upper extremity supported;Left upper extremity supported - Dynamic Sitting-Balance Lateral lean - Dynamic Sitting-Comments SBA - Static Standing Balance Static Standing-Balance Support Right upper extremity supported;Left upper extremity supported - Static Standing-Level of Assistance Minimum assistance - Dynamic Standing Balance Dynamic Standing-Balance Support Right upper extremity supported;Left upper extremity supported - Dynamic Standing-Balance Lateral lean - Dynamic Standing-Comments -- Yamil - Bed Mobility Bed Mobility Yes - Bed Mobility 1 Bed Mobility From 1 Rolling right - Bed Mobility Type 1 To and from - Bed Mobility to 1 Rolling left - Level of Assistance 1 Independent - Bed Mobility 2 Bed Mobility From 2 Supine - Bed Mobility Type 2 To - Bed Mobility to 2 Short sit - Level of Assistance 2 Minimum assistance - Bed Mobility Comments 2 pt able to manuver LEs off bed with cueing and Yamil to bring trunk to sitting - Bed Mobility 3 Bed Mobility From 3 Short sit - Bed Mobility Type 3 To - Bed Mobility to 3 Supine - Level of Assistance 3 Minimum assistance - Bed Mobility Comments 3 pt requires gudiance of LEs onto bed - Transfers Transfer Yes - Transfer 1 Transfer From 1 Sit - Transfer Type 1 To and from - Transfer to 1 Stand - Technique 1 Sit to stand;Stand to sit - Transfer Device 1 w/c arm rests and rolling walker - Transfer Level of Assistance 1 Minimum assistance - Trials/Comments 1 pt requires cueing for safety and Yamil for balance - Transfers 2 Transfer From 2 Wheelchair - Transfer Type 2 To and from - Transfer to 2 Bed - Technique 2 Stand pivot - Transfer Device 2 w/c arm rests - Transfer Level of Assistance 2 Minimum assistance - Trials/Comments 2 for balance/safety - Transfers 3 Transfer From 3 Wheelchair - Transfer Type 3 To and from - Transfer to 3 Car - Technique 3 Stand pivot - Transfer Device 3 rolling walker - Transfer Level of Assistance 3 Minimum assistance - Trials/Comments 3 Pt requires cueing for sitting in w/c prior to bringing LEs in. Pt requires Yamil for balance/safety - Wheelchair Activities Propulsion Yes - Propulsion Type 1 Manual - Level 1 Level tile - Method 1 Right upper extremity;Left upper extremity - Level of Assistance 1 Moderate assistance - Description/Details 1 Pt propells w/c 10ft with modA. Pt demonstrates decreased coordiantion on LUEwith reaching far back on chair and difficulty maintaining gambling broker, pt demonstrates difficulty using LEs to assist. - Ambulation Ambulation Yes - Ambulation 1 Surface 1 Level tile - Device 1 Rolling walker - Assistance 1 Minimum assistance - Quality of Gait 1 unsteady, pt requires cueing for safety awareness with for walker use, pt demonstrates impulsvie actions at times. - Comments/Distance (ft) 1 [id number] with 2 turns, 50ftx1 with 2 turns - Ambulation 2 Surface 2 Uneven;Carpet - Device 2 Rolling walker - Assistance 2 Minimum assistance - Quality of Gait 2 unsteady, pt requires cueing for safety awareness with for walker use, pt demonstrates impulsvie actions at times. - Comments/Distance (ft) 2 10ft - Stairs Stairs Yes - Stairs Rails 1 Right - Assistance 1 Moderate assistance - Comment/Number of Steps 1 Pt ascends and descends 3 stairs with right handrail with modA for balance/safety. Pt requires cueing for safety awareness and for prevention of impulsive actions - RUE AROM (degrees) RUE AROM WFLs - RUE Strength RUE Overall Strength Within Functional Limits - able to perform ADL tasks with strength - LUE AROM (degrees) LUE AROM WFLs - LUE Strength LUE Overall Strength Deficits - AROM RLE (degrees) RLE AROM WFLs - Strength RLE R Hip Flexion 4/5 - R Hip ABduction 4/5 - R Hip ADduction 4/5 - R Knee Flexion 4/5 - R Knee Extension 4/5 - R Ankle Dorsiflexion 4/5 - R Ankle Plantar Flexion 4/5 - AROM LLE (degrees) LLE AROM WFLs - Strength LLE L Hip Flexion 3+/5 - L Hip ABduction 3+/5 - L Hip ADduction 3+/5 - L Knee Flexion 3+/5 - L Knee Extension 3+/5 - L Ankle Dorsiflexion 3+/5 - L Ankle Plantar Flexion 3+/5 - Other Activity Other Activity 1 Pt performed picking up object from floor with unilateral UE support and use of billing services manager with modA and cueing for safety. - At Session End Patient Was Left Pt left supine in bed, all needs in reach and bed alarm active. - PT Assessment Patient Goals Return home;Improve strength;Improve balance;Improve ambulation - PT Assessment Results Decreased strength;Decreased endurance;Impaired balance;Decreased mobility;Decreased coordination;Impaired judgement;Decreased safety awareness;Impaired sensation - Prognosis Good - Barriers to Discharge medical comorbidities, impaired mobility - Evaluation/Treatment Tolerance Patient tolerated treatment well - Medical Staff Made Aware Yes - Strengths Ability to acquire knowledge;Support of extended family/friends - Barriers Comorbidities;Insight into problems - Plan Treatment/Interventions ADL retraining;Functional transfer training;LE strengthening/ROM;Endurance training;Patient/family training;Equipment eval/education;Bed mobility;Gait training;Compensatory technique education;Continued evaluation;Neuromuscular re-education - PT Plan Skilled PT - Acute Care or IPR IPR - PT Frequency 5 days per week - PT Intensity 90 minutes - Anticipated Length of Stay 2 weeks from admisison, / days - Equipment Recommended will continue to assess until discharge - PT - Next Appointment 06/20/25 - User Guerin (r) = Recorded By, (t) = Taken By, (c) = Cosigned By Initials Name Effective Dates Blayne Pope, PT 10/01/23 - Multi-Disciplinary Problems (from Physical Therapy) Active Problems Problem: PT STG 1 impaired bed mobility Start Date: 06/19/25 Goal Start Date Expected End Date End Date Pt will perform bed mobility with SBA to promote increased functional tasks. 06/19/25 06/26/25 -- Problem: PT STG 2 impaired transfers Start Date: 06/19/25 Goal Start Date Expected End Date End Date Pt will perform transfers with SBA to promote increased functional ADLs. 06/19/25 06/26/25 -- Problem: PT STG 3 impaired gait Start Date: 06/19/25 Goal Start Date Expected End Date End Date Pt will ambulate 125ft with appropriate device with CGA to promote increased functional household mobility 06/19/25 06/26/25 -- Problem: PT LTG 1 impaired bed mobility Start Date: 06/19/25 Goal Start Date Expected End Date End Date Pt will perform bed mobility with [place] to promote increased functional tasks. 06/19/25 07/03/25 -- Problem: PT LTG 2 impaired transfers Start Date: 06/19/25 Goal Start Date Expected End Date End Date Pt will perform transfers with [place] to promote increased functional ADLs. 06/19/25 07/03/25 -- Problem: PT LTG 3 impaired gait Start Date: 06/19/25 Goal Start Date Expected End Date End Date Pt will ambulate 150ft with appropriate device with SBA to promote increased functional household mobility. 06/19/25 07/03/25 -- Problem: PT LTG 4 education need Start Date: 06/19/25 Goal Start Date Expected End Date End Date Pt/family will voice understanding of discharge instructions, HEP, and safety to promote safe transition home. 06/19/25 07/03/25 -- Physical Therapy Progress Note Treatments may be performed by physical therapy assistants. Physical Therapy Visit * Nuvia Johnson MD - 06/19/2025 1:13 PM EDT This is a [id number] encounter/evaluation by a rehabilitation physician. History of Present Illness: See H&P from 06/18/2025 Subjective No acute events overnight. Patient was examined this morning at nurses station ENT has recommended no nasal cannula therefore patient was ordered facemask for oxygen however patient was found to have nasal cannula on She reports that she does not sleep well even at home Review of Systems A 10 point review of systems was performed and positive as written although Objective Physical Exam Visit Vitals BP 136/67 Pulse 82 Temp 98 ??F (36.7 ??C) (Oral) Resp 20 General: She is sitting in chair, in no acute distress Cardiovascular: S1, S2 are audible Respiratory: Nonlabored breathing and clear to auscultation bilaterally Oxygen per nasal cannula Gastrointestinal: Abdomen is soft and positive bowel sounds in all 4 quadrants, nontender to palpation Neurological: Awake, alert, speech is fluent with intact comprehension, follows commands Extremities: Bilateral lower extremities without edema Current Facility-Administered Medications Medication Dose Route Frequency Provider Last Rate Last Admin acetaminophen (Tylenol) tablet 650 mg 650 mg Oral q6h PRN Nuvia oJhnson MD aluminum & magnesium hydroxide-simethicone (Mylanta) 200-200-20 MG/5ML oral suspension 20 mL 20mL Oral q4h PRN Nuvia Johnson MD atorvastatin (Lipitor) tablet 80 mg 80 mg Oral Nightly Nuvia Johnson MD 80 mg at 06/18/252145 bisacodyl (Dulcolax) suppository 10 mg 10 mg Rectal Daily PRN Nuvia Johsnon MD [Held by provider] bumetanide (Bumex) tablet 2 mg 2 mg Oral BID Nuvia Johnson MD carvedilol (Coreg) tablet 12.5 mg 12.5 mg Oral BID with meals Nuvia Johnson MD 12.5 mg at 06/19/25925 cyancobalamin (Vitamin B-12) tablet 500 mcg 500 mcg Oral Daily Nuvia Johnson MD 500 mcg at 06/19/25925 cyclobenzaprine (Flexeril) tablet 10 mg 10 mg Oral Nightly Nuvia Johnson MD 10 mg at 06/18/252145 glucose chewable tablet 12-16 g 12-16 g Oral q15 min PRN Nuvia Johnson MD Or glucose (Glutose) 40 % oral gel 15 g 15 g Oral q15 min PRN Nuvia Johnson MD Or dextrose 50 % solution 12.5-25 g 12.5-25 g Intravenous q15 min PRN Nuvia Johnson MD diphenoxylate-atropine (Lomotil) 2.5-0.025 MG per tablet 1 tablet 1 tablet Oral 4x daily PRN MD Hardeep 1 tablet at 06/19/25 07 DULoxetine (Cymbalta) DR capsule 60 mg 60 mg Oral q AM Nuvia Johnson MD 60 mg at 06/19/25925 empagliflozin (Jardiance) tablet 10 mg 10 mg Oral Daily Nuvia Johnson MD 10 mg at 06/19/25925 folic acid (Folvite) tablet 1 mg 1 mg Oral Daily Nuvia Johnson MD 1 mg at 06/19/25925 gabapentin (Neurontin) capsule 400 mg 400 mg Oral BID Nuvia Johnson MD 400 mg at 06/19/25925 Glucagon Emergency injection kit 1 mg 1 mg Intramuscular PRN Nuvia Johnson MD insulin lispro (HumaLOG) injection 0-5 Units 0-5 Units Subcutaneous Before meals & nightly Nuvia Johnson MD ipratropium-albuterol (Duo-Neb) 0.5-2.5 mg/3 mL nebulizer solution 3 mL 3 mL Nebulization 4x daily Nuvia Johnson MD 3 mL at 06/18/252035 isosorbide mononitrate tablet 20 mg 20 mg Oral BID Nuvia Johnson MD 20 mg at 06/19/25 1110 magnesium hydroxide (Milk of Magnesia) 400 MG/5ML suspension 20 mL 20 mL Oral q8h PRN Nuvia Johnson MD metFORMIN (Glucophage) tablet 500 mg 500 mg Oral BID with meals Nuvia Johnson MD 500 mg at 06/19/25 0926 [facility] popswab 1 application. 1 application. Nasal q12h [facility] Nuvia Johnson MD 1 application. at 06/19/25 0926 ondansetron (Zofran) tablet 4 mg 4 mg Oral q6h PRN Nuvia Johnson MD Or ondansetron (Zofran) injection 4 mg 4 mg Intravenous q6h PRN Nuvia Johnson MD 4 mg at 06/18/25 192 pantoprazole (ProtoNix) EC tablet 40 mg 40 mg Oral Daily before breakfast Nuvia Johnson MD 40 mg at 06/19/25 0700 [START ON 06/20/2025] potassium chloride CR (Klor-Con M20) ER tablet 20 mEq 20 mEq Oral BID Nuvia Johnson MD valproic acid (Depakene) oral liquid 250 mg 250 mg Oral q8h [facility] Nuvia Johnson MD 250 mg at 06/19/25 0556 Labs Lab Results Component Value Date POCGLU 84 06/19/2025 BMP: Results from last 7 days Lab Units 06/19/25 0554 CREATININE mg/dL 0.62 BUN mg/dL 12 SODIUM mmol/L 142 POTASSIUM mmol/L 2.9* CHLORIDE mmol/L 108 CO2 mmol/L 27 CBC: Results from last 7 days Lab Units 06/19/25 0554 WBC AUTO 10*3/uL 7.4 7.4 HEMOGLOBIN g/dL 8.9* HEMATOCRIT % 26.1* MCV fL 91.7 PLATELETS AUTO 10*3/uL 14* Rehab progress: Evaluation in progress Impression/Plan Jose Sims is a 64 y.o. female admitted to inpatient rehabilitation for 1. Acute ischemic infarction involving the right cerebellum, right frontal, parietal and occipital lobes - Embolic in nature - Continue secondary stroke prophylaxis with atorvastatin 80 mg p.o. Cb, carvedilol 12.5 mg p.o. twice daily with meals - Unable to receive antiplatelets due to severe thrombocytopenia - Continue test 3 hours a day for 5 days of physical therapy, Occupational Therapy and/or speech therapy 2. Metastatic non-small cell lung carcinoma - Metastatic lesions to the brain s/p resection, gamma knife and XRT - Status post chemotherapy x 4 cycles 3. Hypertension - Stable - Continue Coreg 12.5 mg p.o. twice daily with meals - Continue isosorbide mononitrate 20 mg p.o. twice daily 4. Hyperlipidemia - Continue atorvastatin 80 mg p.o. nightly 5. Atrial fibrillation - Continue carvedilol 12.5 mg p.o. twice daily with meals - Currently not on anticoagulation due to severe thrombocytopenia 6. COPD - Continue oxygen via facemask as needed - Continue DuoNeb inhalation 4 times daily 7. Severe thrombocytopenia - Transfuse for platelet count less than 10 or less than 50 if bleeding 8. Myoclonus - Continue valproic acid 250 mg p.o. every 8 hours 9. Neuropathic pain - Continue gabapentin 400 mg p.o. twice daily 10. Epistaxis - Improved - Avoid nasal cannula - Continue facemask 11. Steroid-induced hyperglycemia - Continue insulin sliding scale - Continue Jardiance 10 mg p.o. daily - Continue metformin 500 mg p.o. twice daily with meals 12. Hypokalemia - Administer potassium chloride 30 mEq IV once today - Start potassium chloride 20 mEq p.o. twice daily from 06/20/2025 13. Hypomagnesemia - Administer magnesium sulfate 2 g IV once over 60 minutes 14. GI prophylaxis - Continue Protonix 40 mg p.o. daily before breakfast 15. DVT/PE - Status post IVC filter - Continue bilateral lower extremity sequential compression devices * Stanislav Perry RN - 06/19/2025 11:21 AM EDT Wound Care Consult Visit Date: 06/19/2025 Patient Name: Jose Sims Date of : 1960 Reason for Consult: Wound History: Pertinent Labs: Albumin Date Value Ref Range Status 06/18/2025 3.5 3.5 - 5.1 g/dL Final Wound Assessment: Wound Team Summary Assessment: Skin intact over bony prominences. Pt up in chair. Wound Team Plan: Stanislav Perry RN 06/19/2025 11:21 AM * Cait Acuna, [facility]-MACHINE PECAN PICKER - 06/19/2025 9:30 AM EDT Images from the original note were not included. Speech-Language Pathology Speech-Language Pathology Evaluation Patient Name: Jose Sims Today's Date: 06/19/2025 Date of Evaluation: 06/19/2025 Speech Therapy Flowsheet Data (last 10 hours) IP Evaluation - WedJune 19, 2025 Row Name 0930 MACHINE PECAN PICKER Last Visit MACHINE PECAN PICKER Received On 06/19/25 -CD General MACHINE PECAN PICKER Start Time 0930 -CD MACHINE PECAN PICKER Stop Time 1000 -CD MACHINE PECAN PICKER Time Calculation (min) 30 min -CD Chart Reviewed Yes -CD Additional Pertinent History stroke, acute, embolic -CD Treatment Duration (min) 30 Minutes -CD Family/Caregiver Present No -CD Speech Evaluation Time Entry Speech Sound Production Eval W/ Lang Comp and Exp Time Entry 30 -CD Subjective Current Problem stroke, acute, embolic -CD Patient Reports I'm doing okay -CD Patient Was Found sitting upright in wc -CD Pain Assessment Pain Assessment No/denies pain -CD Pain Score 0 - No pain -CD Cognition Overall Cognitive Status Impaired -CD Arousal/Alertness Appropriate responses to stimuli -CD Orientation Level Oriented X4 -CD Following Commands Follows all commands and directions without difficulty -CD Safety Judgment Good awareness of safety precautions -CD Awareness of Errors Assistance required to identify errors made -CD Deficits Fully aware of deficits -CD Attention Span Appears intact -CD Memory Decreased short term memory -CD Problem Solving Assistance required to generate solutions -CD Cognition Comments MMSE -CD Dysphagia Screening Recommend Assessment No -CD Baseline Assessment Respiratory Status Oxygen via nasal cannula -CD Behavior/Cognition Alert;Cooperative;Pleasant mood -CD Dentition Edentulous;Dentures bottom;Dentures top;Other (Comment) dentures at home per pt -CD Vision Functional for self-feeding -CD Patient Positioning Upright in chair -CD Baseline Vocal Quality WFL -CD Oral/Motor Labial ROM WFL -CD Lingual ROM WFL -CD Facial ROM WFL -CD Vocal Quality WFL -CD Vocal Intensity WFL -CD Gag WFL -CD Apraxia None present -CD Intelligibility Intelligible -CD Breath Support Adequate for speech -CD Dentition Edentulous;Dentures bottom;Dentures top -CD Hearing WFL -CD Auditory Comprehension Yes/No Questions WFL -CD Commands WFL -CD Object Identification WFL -CD Picture Identification WFL -CD Conversation WFL -CD Effective Techniques Repetition;Pausing -CD Visual Recognition Recognition WFL -CD Reading Comprehension Reading Status WFL -CD Verbal Expression Primary Mode of Expression Verbal -CD Primary Language Swedish -CD Confrontation Naming WFL -CD Repetition WFL -CD Sentence Completion WFL -CD Open Ended Questions WFL -CD Conversation WFL -CD Affect WFL -CD Prosody WFL -CD Eye Contact WFL -CD Monotone WFL -CD Topic Initiation WFL -CD Topic Maintenance WFL -CD Turn Taking WFL -CD Verbal Communication Comments Pt scored 22/30 MMSE. Defecits in problem solving, short-term memory,and clock drawing. -CD Written Expression Dominant Hand Right -CD Written Expression WFL -CD Formulation No impairment -CD Mental Function/Holistic Reasoning Attention WFL -CD Memory X -CD Short-Term Memory Moderate -CD Memory Comments Pt recalled 0/3 words on MMSE -CD Problem Solving X -CD Complex Functional Tasks Moderate -CD Verbal Reasoning Skills Minimal -CD Numeric Reasoning X -CD Complex Calculations Moderate -CD Other (Comment) Moderate -CD Abstract Reasoning X -CD Abstract Thinking Not Consistent Moderate -CD Safety/Judgement WFL -CD Insight WFL -CD Impulsive WFL -CD Task Initiation WFL -CD Flexibility of Thought WFL -CD Planning WFL -CD Organization WFL -CD Processing Speed WFL -CD Perseveration Not present -CD MACHINE PECAN PICKER Assessment MACHINE PECAN PICKER Assessment Results Memory deficits;Problem solving deficits;Cognitive impairments -CD Prognosis Good -CD Barriers to Discharge none -CD Evaluation/Treatment Tolerance Patient tolerated treatment well -CD Medical Staff Made Aware Yes -CD Strengths Ability to acquire knowledge;Attitude of self;Premorbid level of function -CD Barriers Comorbidities -CD Plan Treatment/Interventions Patient/family education;Cognitive communication functioning -CD MACHINE PECAN PICKER Plan Skilled MACHINE PECAN PICKER -CD Acute Care or IPR IPR -CD MACHINE PECAN PICKER Frequency 5 days per week -CD MACHINE PECAN PICKER Intensity 30 minutes -CD Anticipated Length of Stay 21 days -CD MACHINE PECAN PICKER Discharge Recommendations Home independent;Home with family support -CD Diet Recommendations reg/thin -CD Equipment Recommended none -CD MACHINE PECAN PICKER - Next Appointment 06/20/25 -CD User Guerin (r) = Recorded By, (t) = Taken By, (c) = Cosigned By Initials Name Effective Dates CD Cait Acuna CCC-MACHINE PECAN PICKER 10/01/23 - Consultations/Referrals/Coordination of Services: None Multi-Disciplinary Problems (from Speech Therapy) Active Problems Problem: Cognitive/Linguistics Start Date: 06/19/25 Goal Start Date Expected End Date End Date LTG - Patient will utilize compensatory intervention for memory and problem- solving to allow for safe completion of daily activities 06/19/25 07/10/25 -- Goal Start Date Expected End Date End Date STG - Patient will participate in further assessment of cognitive-linguistic skills 06/19/25 07/10/25 -- Goal Start Date Expected End Date End Date STG - Patient will complete functional problem-solving tasks for daily situations 06/19/25 07/10/25-- Goal Start Date Expected End Date End Date STG - Patient will complete simple problem solving tasks 06/19/25 07/10/25 -- Goal Start Date Expected End Date End Date STG - Patient will complete simple calculations for time/money management 06/19/25 07/10/25 -- Goal Start Date Expected End Date End Date STG - Patient will recall memory strategies 06/19/25 07/10/25 -- Goal Start Date Expected End Date End Date STG - Patient will complete thought organization tasks 06/19/25 07/10/25 -- * Fredo Benjamin OT Student - 06/19/2025 8:15 AM EDT Occupational Therapy Evaluation Patient Name: Jose Sims Today's Date: 06/19/2025 06/19/25 0815 General OT Start Time 0800 OT Stop Time 0930 OT Time Calculation (min) 90 min Family/Caregiver Present No OT Evaluation Time Entry OT Evaluation (Complex) Time Entry 90 Subjective Current Problem Stroke, acute, embolic Patient Reports Patient was pleasant and cooperative during treatment session. OT utilized gait belt and non skid socks for safety. Patient Was Found Upon OT arrival patient was sitting upright in w/c at nurse station with self release lap belt intact, gait belt, chair alarm armed, and all needs were within functional reach. Precautions Medical Precautions HRF, Cardiac protocol; (Hold PT/OT if HR is < 50 >120 or SBP is < 90 >180 mmHg), Aspiration precautions, Vital Signs Heart Rate 82 BP 136/67 SpO2 99 % (2 liters of oxygen) Pain Assessment Pain Assessment No/denies pain Cognition Overall Cognitive Status WFL Arousal/Alertness Appropriate responses to stimuli Orientation Level Oriented X4 Following Commands Follows all commands and directions without difficulty Safety Judgment Decreased awareness of need for safety Awareness of Errors Assistance required to correct errors made Deficits Fully aware of deficits Attention Span Appears intact Memory Decreased short term memory Problem Solving Able to problem solve independently Home Living Type of Home House Lives With Alone Home Adaptive Equipment Walker rolling or standard;Wheelchair-manual;Bedside commode Home Living Comments Patient reports she has family members who is able to help her out at home if she needs it. Home Layout One level Home Access Stairs to enter with rails Entrance Stairs-Rails Both Entrance Stairs-Number of Steps 4 Bathroom Shower/Tub Tub/shower unit Bathroom Toilet Standard Bathroom Equipment Shower chair with back Prior Function Level of [place] Independent with ADLs and functional transfers Receives Help From Family ADL Assistance Independent Feeding Feeding Level of Assistance Close supervision Feeding Where Assessed Wheelchair Grooming Grooming Level of Assistance Close supervision Grooming Where Assessed Wheelchair;Sitting sinkside Grooming Comments Patient was able to complete all parts of grooming. UE Bathing UE Bathing Level of Assistance Close supervision UE Bathing Where Assessed Wheelchair;Sitting sinkside UE Bathing Comments Patient was able to complete all parts of UE bathing. LE Bathing LE Bathing Level of Assistance Minimum assistance LE Bathing Where Assessed Wheelchair;Sitting sinkside UE Dressing UE Dressing Level of Assistance Minimum assistance UE Dressing Where Assessed Wheelchair UE Dressing Comments Patient required assistance to doff shirt over head. LE Dressing LE Dressing Yes Pants Level of Assistance Minimum assistance Sock Level of Assistance Minimum assistance Shoe Level of Assistance Contact guard Adult Briefs Level of Assistance Minimum assistance LE Dressing Where Assessed Wheelchair LE Dressing Comments Patient required min assistance for balance/safety. Toileting Toileting Level of Assistance Minimum assistance Where Assessed Toilet Toilet Transfers Toilet Transfer From Wheelchair Toilet Transfer Type To and from Toilet Transfer to Raised toilet seat with rails Toilet Transfer Technique Stand pivot Toilet Transfers Minimal assistance Shower Transfers Shower Transfers Comments NT secondary to safety; Activity Tolerance Endurance Tolerates less than 10 min exercise, no significant change in vital signs Vision - Basic Assessment Current Vision Wears glasses only for reading Sensation Light Touch Partial deficits in the LUE Sharp/Dull Partial deficits in the LUE Proprioception Proprioception Partial deficits in the LUE Proprioception Comments Patient reported it is difficult to grasp objects with L UE. Perception Inattention/Neglect Appears intact Coordination Movements are Fluid and Coordinated No Coordination and Movement Description L UE limited by weakness Hand Function Gross Grasp Impaired (R UE grasp WFL, L UE grasp impaired) Coordination Impaired (R UE WFL, L UE impaired) RUE Assessment RUE Assessment WFL (R UE strength grossly 4-/5) LUE Assessment LUE Assessment X (L UE strength grossly 3-/5) At Session End Patient Was Left At the end of treatment session patient was sitting upright in w/c with self release lap belt intact, gait belt, chair alarm armed, nurse present and all needs were within functionalreach. OT Assessment Patient Goals Improve [place] with ADLs OT Assessment Results Decreased ADL status;Decreased functional mobility;Decreased fine motor control;Decreased gross motor control;Decreased endurance;Decreased safe judgment during ADL;Decreased upper extremity strength Prognosis Fair Barriers to Discharge None Evaluation/Treatment Tolerance Patient tolerated treatment well Medical Staff Made Aware Yes Strengths Ability to acquire knowledge;Attitude of self;Access to adaptive/assistive products;Insight into problems;Living arrangement secure;Support of pets;Support of extended family/friends Barriers Comorbidities Plan Treatment Interventions ADL retraining;Functional transfer training;UE strengthening/ROM;Endurance training;Patient/family training;Equipment evaluation/education;Fine motor coordination activities;Neuromuscular reeducation;Continued evaluation OT Plan Skilled OT Acute Care or IPR IPR OT Frequency 1 time per day until discharge OT Frequency 5 days per week OT Intensity 90 minutes Anticipated Length of Stay 2 weeks OT Discharge Recommendations (continued assessment) Equipment Recommended Continued assessment OT Recommended Transfer Status (Min A) Multi-Disciplinary Problems (from Occupational Therapy) Active Problems Problem: OT STG 1; Impaired Bathing Start Date: 06/19/25 Goal Start Date Expected End Date End Date Pt will complete all parts of LB Bathing ADL tasks with CGA to aid in return home. 06/19/25 06/26/25 -- Problem: OT STG 2; Impaired UB Dressing Start Date: 06/19/25 Goal Start Date Expected End Date End Date Pt will complete all part of Upper Body Dressing tasks with Close Supervision to aid in safe returnhome. 06/19/25 06/26/25 -- Problem: OT STG 3; Impaired LB Dressing Start Date: 06/19/25 Goal Start Date Expected End Date End Date Pt will complete all parts Lower Body Dressing tasks with CGA to aid in safe return home. 06/19/25 06/26/25 -- Problem: OT STG 4; Impaired Toileting Start Date: 06/19/25 Goal Start Date Expected End Date End Date Pt will complete toileting hygiene tasks with CGA to aid in return home. 06/19/25 06/26/25 -- Problem: OT STG 5; Impaired Toileting Transfer Start Date: 06/19/25 Goal Start Date Expected End Date End Date Pt will require CGA with toileting transfers using least restrictive device as needed to aid in safe return home. 06/19/25 06/26/25 -- Problem: OT LTG 1; Impaired Feeding Start Date: 06/19/25 Goal Start Date Expected End Date End Date Pt will require Modified Independent with feeding tasks to aid in safe return home. 06/19/25 07/03/25 -- Problem: OT LTG 2; Impaired Grooming Start Date: 06/19/25 Goal Start Date Expected End Date End Date Pt will complete Grooming self-care tasks with Modified Independent to aid in safe return home. 06/19/25 07/03/25 -- Problem: OT LTG 3; Impaired Bathing Start Date: 06/19/25 Goal Start Date Expected End Date End Date Pt will complete all parts of Bathing ADL tasks with SBA to aid in return home. 06/19/25 07/03/25 -- Problem: OT LTG 4; Impaired Toileting Start Date: 06/19/25 Goal Start Date Expected End Date End Date Pt will complete toileting hygiene tasks with SBA to aid in return home. 06/19/25 07/03/25 -- Problem: OT LTG 5; Impaired HEP Start Date: 06/19/25 Goal Start Date Expected End Date End Date Pt will be educated on and verbalize and demonstrate understanding of HEP to promote increased strength to facilitate increased independence and safety with ADLs and functional transfers. 06/19/25 07/03/25 -- Treatments may be performed by certified occupational therapy assistants. Occupational Therapy Progress Note Cosigned by Ayesha Goodson OTR/Anita at 06/19/2025 6:36 PM EDT Associated attestation - Ayesha Goodson OTR/L - 06/19/2025 6:36 PM EDT OT was present and assisted during OT treatment session. OT has read and agrees with documentation completed by OT student, Fredo Benjamin. Ayesha Goodson OTR/Anita documented in this encounter H&P Notes * Nuvia Johnson MD - 06/18/2025 4:12 PM EDT Images from the original note were not included. History and Physical/Post Admission Patient Admitted from: [facility] acute care Referring Provider: Dr. Trena Doshi Primary Care Provider: Issac Evans Date of Onset / Surgery: 06/12/2025 Chief Complaint/Reason for Admission: Acute multiple tiny lacunar infarctions including right cerebellum, right occipital lobe, right posterior frontal frontal-parietal white matter History of Present Illness: Patient's history was obtained from review of medical records and interview with patient Patient is a 64 y.o. [id number] female with a history of non-small cell lung cancer, with metastatic lesions to the brain status post 5 brain radiation treatments, left lower extremity DVT, PE status post IVC filter, A-fib, bladder mass status post TURB presented to [facility] on 06/12/2025 after a fall on her face resulting in bilateral facial/under high ecchymosis. Patientwas evaluated by ENT, recommended Bactroban ointment to nasal septum twice daily, recommended to donot use nasal cannula rather than face tent or mask. Patient was also evaluated by oncology and recommended MRI of the brain. Patient underwent MRI of the brain and was found to have above-mentioned multiple tiny acute infarctions in the right cerebellum, right occipital lobe, right posterior frontal parietal lobes. Patient was evaluated by neurology currently unable to receive DOACs, recommendedwatchman's procedure. Patient was also started on Depakote, underwent EEG which was negative. Once she was medically stable she was evaluated with PT, OT, recommended acute inpatient rehabilitation. Review of Systems 10 point review of system was performed and positive for insomnia, diarrhea otherwise rest of the review of systems are negative Past Medical History Hypertension Hyperlipidemia Steroid-induced hyperglycemia Non-small cell lung carcinoma Metastatic lesions to the brain status post radiation Bladder tumor status post TURP COPD A-fib DVT PE DC/coronary artery disease Past Surgical History Right upper chest Mediport placement IVC filter placement Family History Hypertension Hyperlipidemia Stroke Social History Marital status: Number of children: 1 daughter, lives in [place], [place] Employment status: Retired from [email or web address] Home structure: Patient reported that she will be going to her daughter's house, 1 level home, no steps to enter, walk-in shower DME: Cane, walker, wheelchair, oxygen, nebulizer, bedside commode Tobacco use: Smokes 1 pack/day, reported that she has been smoking all her life Alcohol use: Denied Illegal drug use: Denied Prior level of function: Reported that she was independent with all ADLs, some community ambulation, patient was driving Current level of function: Min assist for feeding, mod assist for bathing and toileting, min assistfor upper body dressing, mod assist for lower body dressing, min assist for bed mobility and transfers Medications No current facility-administered medications for this encounter. Current Outpatient Medications Medication Sig Dispense Refill atorvastatin (Lipitor) 80 MG tablet Take 1 tablet (80 mg) by mouth at bedtime. 30 tablet 0 empagliflozin (Jardiance) 10 MG Take 1 tablet (10 mg) by mouth in the morning. 30 tablet 0 ipratropium-albuterol (Duo-Neb) 0.5-2.5 mg/3 mL nebulizer solution Take 3 mL by nebulization every 6 (six) hours if needed for wheezing. 360 mL 0 valproic acid (Depakene) 250 MG/5ML oral liquid Take 5 mL (250 mg) by mouth every 8 (eight) hours. 450 mL 0 Facility-Administered Medications Ordered in Other Encounters Medication Dose Route Frequency Provider Last Rate Last Admin acetaminophen (Tylenol) tablet 650 mg 650 mg Oral q6h PRN Yaw Harvey MD aluminum & magnesium hydroxide-simethicone (Mylanta) 200-200-20 MG/5ML oral suspension 30 mL 30mL Oral q4h PRN Yaw Harvey MD [Held by provider] aspirin chewable tablet 81 mg 81 mg Oral Daily Dennis Mata DO Or [Held by provider] aspirin chewable tablet 81 mg 81 mg Nasogastric Daily Dennis Mata DO Or [Held by provider] aspirin suppository 300 mg 300 mg Rectal Daily Dennis Mata DO atorvastatin (Lipitor) tablet 80 mg 80 mg Oral Nightly Dennis Mata DO 80 mg at 06/17/252240 [Held by provider] bumetanide (Bumex) tablet 2 mg 2 mg Oral BID Yaw Harvey MD carvedilol (Coreg) tablet 12.5 mg 12.5 mg Oral BID with meals Yaw Harvey MD 12.5 mg at [Held by provider] cyancobalamin (Vitamin B-12) tablet 500 mcg 500 mcg Oral Daily Yaw Harvey MD cyclobenzaprine (Flexeril) tablet 10 mg 10 mg Oral Nightly Yaw Harvey MD 10 mg at 06/17/252241 glucose chewable tablet 12-16 g 12-16 g Oral q15 min PRN Yaw Harvey MD Or glucose (Glutose) 40 % oral gel 15 g 15 g Oral q15 min PRN Yaw Harvey MD Or dextrose 50 % solution 12.5-25 g 12.5-25 g Intravenous q15 min PRN Yaw Harvey MD diphenoxylate-atropine (Lomotil) 2.5-0.025 MG per tablet 1 tablet 1 tablet Oral 4x daily PRN Yaw Hravey MD DULoxetine (Cymbalta) DR capsule 60 mg 60 mg Oral q AM Yaw H. MD Wes 60 mg at 06/17/25 1015 [Held by provider] folic acid (Folvite) tablet 1 mg 1 mg Oral Daily Yaw HJade Harvey MD gabapentin (Neurontin) capsule 800 mg 800 mg Oral BID Yaw H. MD Wes 800 mg at 06/18/25 0941 Glucagon Emergency injection kit 1 mg 1 mg Intramuscular PRN Yaw H. MD Wes guaiFENesin (Mucinex) 12 hr tablet 1,200 mg 1,200 mg Oral Daily Yaw H. MD Wes 1,200 mg at 06/17/25 1015 hydrALAZINE (Apresoline) injection 10 mg 10 mg Intravenous q4h PRN Yaw HJade Harvey MD ipratropium-albuterol (Duo-Neb) 0.5-2.5 mg/3 mL nebulizer solution 3 mL 3 mL Nebulization q6h PRN Yaw H. MD Wes 3 mL at 06/17/25 1537 isosorbide mononitrate tablet 20 mg 20 mg Oral BID Yaw H. MD Wes 20 mg at 06/18/25 0941 labetalol (Normodyne,Trandate) injection 10 mg 10 mg Intravenous q15 min PRN Dennis Mata DO [Held by provider] metFORMIN (Glucophage) tablet 500 mg 500 mg Oral BID with meals Yaw HJade Harvey MD morphine PF 2 mg 2 mg Intravenous q4h PRN Yaw HJade Harvey MD 2 mg at 06/16/25 2241 nozin nasal spa receptionist popswab 1 application. 1 application. Nasal q12h [facility] Dennis Mata DO 1 application. at 06/18/25 0940 ondansetron (Zofran) injection 4 mg 4 mg Intravenous q4h PRN Yaw Harvey MD 4 mg at 06/16/25 2241 ondansetron (Zofran) tablet 8 mg 8 mg Oral q8h PRN Yaw H. MD Wes 8 mg at 06/15/25 2238 pantoprazole (ProtoNix) EC tablet 40 mg 40 mg Oral Daily before breakfast Yaw HJade Harvey MD 40 mg at 06/18/25 0537 [Held by provider] potassium chloride CR (Klor-Con M20) ER tablet 20 mEq 20 mEq Oral Daily Yaw Harvey MD prochlorperazine (Compazine) injection 5 mg 5 mg Injection q6h PRN Bri Yates NP 5 mg at 06/17/25 0207 [Held by provider] sodium chloride 0.9 % infusion 50 mL/hr Intravenous Continuous JANET Dyetopped at 06/13/25 1909 sodium chloride 0.9 % iv solution 250 mL 250 mL Intravenous Once Rachel Soriano MD sodium chloride 0.9 % iv solution 250 mL 250 mL Intravenous Once Rachel Soriano MD valproic acid (Depakene) oral liquid 250 mg 250 mg Oral q8h [facility] Patience Wang NP 250 mg at 06/18/25 1436 Allergies Allergies Allergen Reactions Cephalexin Ciprofloxacin Caused c-diff Physical Exam There were no vitals taken for this visit. Physical Exam Vitals reviewed. Constitutional: General: She is awake. Appearance: Normal appearance. She is well-developed and normal weight. HENT: Head: Normocephalic. Mouth/Throat: Mouth: Mucous membranes are dry. Pharynx: Oropharynx is clear. Uvula midline. Cardiovascular: Rate and Rhythm: Normal rate. Rhythm irregular. Heart sounds: S1 normal and S2 normal. No murmur heard. No friction rub. Pulmonary: Effort: Pulmonary effort is normal. No respiratory distress. Breath sounds: Normal air entry. Wheezing present. No rhonchi or rales. Chest: Abdominal: General: Bowel sounds are normal. There is no distension. Palpations: Abdomen is soft. Tenderness: There is no abdominal tenderness. There is no guarding or rebound. Musculoskeletal: Right lower leg: No edema. Left lower leg: No edema. Skin: Comments: Bilateral ischii, sacrococcygeal area revealed intact skin Bilateral heels reveal intact skin Neurological: Mental Status: She is alert. Deep Tendon Reflexes: Reflex Scores: Tricep reflexes are 1+ on the right side and 1+ on the left side. Bicep reflexes are 1+ on the right side and 1+ on the left side. Brachioradialis reflexes are 1+ on the right side and 1+ on the left side. Patellar reflexes are 1+ on the right side and 1+ on the left side. Comments: Patient is awake, alert, speech is fluent, follows commands, intact naming, intact reading, intact repetition Oriented to self, person, place, month and year Cranial nerves II to XII grossly intact Motor exam 5/5 in right upper extremity and right lower extremity, 4/5 in left upper extremity and left lower extremity Sensations grossly intact to light touch in bilateral upper and lower extremities Tone is normal in bilateral upper and lower extremities Negative for Hendricks's or clonus Psychiatric: Mood and Affect: Mood and affect normal. Behavior: Behavior is cooperative. Laboratory Data: CBC: Results from last 7 days Lab Units 06/18/25 0425 WBC AUTO 10*3/uL 7.4 HEMOGLOBIN g/dL 10.6* HEMATOCRIT % 31.1* MCV fL 92.4 PLATELETS AUTO 10*3/uL 16* BMP: Results from last 7 days Lab Units 06/18/25 0425 CREATININE mg/dL 0.71 BUN mg/dL 10 SODIUM mmol/L 140 POTASSIUM mmol/L 3.3 CHLORIDE mmol/L 103 CO2 mmol/L 28 Radiological Data: As in HPI Assessment/Plan Jose Sims is a 64 y.o. female admitted to inpatient rehabilitation for 1. Acute ischemic infarction involving the right cerebellum, right frontal, parietal and occipital lobes - Embolic in nature - Continue secondary stroke prophylaxis with atorvastatin 80 mg p.o. Cb, carvedilol 12.5 mg p.o. twice daily with meals - Unable to receive antiplatelets due to severe thrombocytopenia 2. Metastatic non-small cell lung carcinoma - Metastatic lesions to the brain s/p resection, gamma knife and XRT - Status post chemotherapy x 4 cycles 3. Hypertension - Continue Coreg 12.5 mg p.o. twice daily with meals - Continue isosorbide mononitrate 20 mg p.o. twice daily 4. Hyperlipidemia - Continue atorvastatin 80 mg p.o. nightly 5. Atrial fibrillation - Continue carvedilol 12.5 mg p.o. twice daily with meals - Currently not on anticoagulation due to severe thrombocytopenia 6. COPD - Continue oxygen via facemask - Continue DuoNeb inhalation 4 times daily 7. Severe thrombocytopenia - Transfuse for platelet count less than 10 or less than 50 if bleeding 8. Myoclonus - Continue valproic acid to 50 mg p.o. every 8 hours 9. Neuropathic pain - Continue gabapentin 400 mg p.o. twice daily 10. Epistaxis - Avoid nasal cannula - Continue facemask 11. Steroid-induced hyperglycemia - Continue insulin sliding scale - Continue Jardiance 10 mg p.o. daily - Continue metformin 500 mg p.o. twice daily with meals 12. Hypokalemia - Continue potassium chloride 20 mEq p.o. daily 13. GI prophylaxis - Continue Protonix 40 mg p.o. daily before breakfast 14. DVT/PE - Status post IVC filter - Continue bilateral lower extremity sequential compression devices Patient is expected to participate in and significantly benefit from intense 3 hours a day for 5 days of physical therapy, Occupational Therapy and/or speech- language therapy. Patient is expected to make significant functional improvements and expected to be discharged to community level. Physical therapy for transfer evaluation and training, balance evaluation and training, gait evaluation and training, equipment evaluation and training, patient and family education and formulation of home exercise program. Occupational therapy for ADL/IADL training, fine motor skills, fabrication of splints as appropriate, evaluation for adaptive equipment, patient and family education, and formulation of a home exercise program. Speech therapy for swallow evaluation/treatment, perceptive and cognitive evaluation/treatment, speech and language evaluation/treatment, and patient and family education. Rehabilitation nursing care for medications administration, skin integrity, bowel and bladder management, safety awareness, monitoring of nutrition status, patient and family education. Case management consult for discharge planning. Code Status: DNR/DNI Rehabilitation Prognosis/Goals: Good/functional independence Barriers/Comorbidities Factors that May Impact Rehab Stay: Advanced metastatic non-small cell lung cancer Estimated Length of Stay: 14 days [id number] evaluation was performed by: Nuvia Johnson MD on: 06/18/2025 Postadmission physician evaluation unchanged from preadmission screening except as dictated in thishistory and physical examination. documented in this encounter Nursing Notes * Lynda Jack - 06/23/2025 11:00 AM EDT Spoke with patient and family regarding upcoming appointments and medication administration. Removed mediport access by Janell MONTILLA. No concerns at this time. Patient encouraged to return to ED if anynew onset of symptoms occur. documented in this encounter Miscellaneous Notes * Care Plan - JULIA Reyes - 06/23/2025 10:21 AM EDT Pt has made great progress since SOC meeting 4/5 STGs and 3/5 LTGs. Pt safe to discharge home with family assistance. Problem: OT STG 1; Impaired Bathing Goal: Pt will complete all parts of LB Bathing ADL tasks with CGA to aid in return home. Outcome: Met Problem: OT STG 2; Impaired UB Dressing Goal: Pt will complete all part of Upper Body Dressing tasks with Close Supervision to aid in safe return home. Outcome: Met Problem: OT STG 3; Impaired LB Dressing Goal: Pt will complete all parts Lower Body Dressing tasks with CGA to aid in safe return home. Outcome: Adequate for Discharge Problem: OT STG 4; Impaired Toileting Goal: Pt will complete toileting hygiene tasks with CGA to aid in return home. Outcome: Met Problem: OT STG 5; Impaired Toileting Transfer Goal: Pt will require CGA with toileting transfers using least restrictive device as needed to aid in safe return home. Outcome: Met Problem: OT LTG 1; Impaired Feeding Goal: Pt will require Modified Independent with feeding tasks to aid in safe return home. Outcome: Met Problem: OT LTG 2; Impaired Grooming Goal: Pt will complete Grooming self-care tasks with Modified Independent to aid in safe return home. Outcome: Met Problem: OT LTG 3; Impaired Bathing Goal: Pt will complete all parts of Bathing ADL tasks with SBA to aid in return home. Outcome: Adequate for Discharge Problem: OT LTG 4; Impaired Toileting Goal: Pt will complete toileting hygiene tasks with SBA to aid in return home. Outcome: Adequate for Discharge Problem: OT LTG 5; Impaired HEP Goal: Pt will be educated on and verbalize and demonstrate understanding of HEP to promote increased strength to facilitate increased independence and safety with ADLs and functional transfers. Outcome: Met * Patient Education - Janell Jack RN - 06/23/2025 9:10 AM EDT Images from the original note were not included. Patient Education Table of Contents Carvedilol Tablets Atorvastatin Tablets Duloxetine Delayed-Release Capsules Empagliflozin Tablets Isosorbide Mononitrate Tablets Gabapentin Capsules or Tablets Sodium Picosulfate; Magnesium Oxide; Anhydrous Citric Acid Solution Metformin Tablets Pantoprazole Tablets Valproic Acid Capsules Sodium Sulfate; Magnesium Sulfate; Potassium Chloride Tablets To view videos and all your education online visit, [email or web address] or scan this QR code with your smartphone. Access to this content will in one year. Carvedilol Tablets What is this medication? CARVEDILOL (RUBI ve dil ol) treats high blood pressure and heart failure. It may also be used to prevent further damage after a heart attack. It works by lowering your blood pressure and heart rate, making it easier for your heart to pump blood to the rest of your body. It belongs to a group of medications called beta blockers. This medicine may be used for other purposes; ask your health care provider or pharmacist if you have questions. COMMON BRAND NAME(S): Coreg What should I tell my care team before I take this medication? They need to know if you have any of these conditions: Circulation problems Diabetes History of heart attack or heart disease Liver disease Lung or breathing disease, such as asthma Pheochromocytoma Slow or irregular heartbeat Thyroid disease An unusual or allergic reaction to carvedilol, other medications, foods, dyes, or preservatives or trying to get How should I use this medication? Take this medication by mouth. Take it as directed on the prescription label at the same time everyday. Take it with food. Keep taking it unless your care team tells you to stop. Talk to your care team about the use of this medication in children. Special care may be needed. Overdosage: If you think you have taken too much of this medicine contact a poison control center or emergency room at once. NOTE: This medicine is only for you. Do not share this medicine with others. What if I miss a dose? If you miss a dose, take it as soon as you can. If it is almost time for your next dose, take only that dose. Do not take double or extra doses. What may interact with this medication? This medication may interact with the following: Certain medications for blood pressure, heart disease, irregular heartbeat Certain medications for depression, such as fluoxetine or paroxetine Certain medications for diabetes, such as glipizide or glyburide Cimetidine Clonidine Cyclosporine Digoxin MAOIs, such as Carbex, Eldepryl, Marplan, Nardil, and Parnate Reserpine Rifampin This list may not describe all possible interactions. Give your health care provider a list of all the medicines, herbs, non-prescription drugs, or dietary supplements you use. Also tell them if you smoke, drink alcohol, or use illegal drugs. Some items may interact with your medicine. What should I watch for while using this medication? Visit your care team for regular checks on your progress. Check your blood pressure as directed. Know what your blood pressure should be and when to contact your care team. This medication may affect your coordination, reaction time, or judgment. Do not drive or operate machinery until you know how this medication affects you. Sit up or stand slowly to reduce the risk of dizzy or fainting spells. Drinking alcohol with this medication can increase the risk of these side effects. Do not suddenly stop taking this medication. This may increase your risk of side effects, such as chest pain and heart attack. If you no longer need to take this medication, your care team will lowerthe dose slowly over time to decrease the risk of side effects. If you are going to need surgery or a procedure, tell your care team that you are using this medication. This medication may affect blood glucose levels. It can also mask the symptoms of low blood sugar, such as a rapid heartbeat and tremors. If you have diabetes, it is important to check your blood sugar often while you are taking this medication. Do not treat yourself for coughs, colds, or pain while you are using this medication without askingyour care team for advice. Some medications may increase your blood pressure. What side effects may I notice from receiving this medication? Side effects that you should report to your care team as soon as possible: Allergic reactions?skin rash, itching, hives, swelling of the face, lips, tongue, or throat Heart failure?shortness of breath, swelling of the ankles, feet, or hands, sudden weight gain, unusual weakness or fatigue Low blood pressure?dizziness, feeling faint or lightheaded, blurry vision Raynaud's?cool, numb, or painful fingers or toes that may change color from pale, to blue, to red Slow heartbeat?dizziness, feeling faint or lightheaded, confusion, trouble breathing, unusual weakness or fatigue Worsening mood, feelings of depression Side effects that usually do not require medical attention (report to your care team if they continue or are bothersome): Change in sex drive or performance Diarrhea Dizziness Fatigue Headache This list may not describe all possible side effects. Call your doctor for medical advice about side effects. You may report side effects to FDA at 9-758-PDN-8758. Where should I keep my medication? Keep out of the reach of children and pets. Store at room temperature between 20 and 25 degrees C (68 and 77 degrees F). Protect from moisture.Keep the container tightly closed. Throw away any unused medication after the expiration date. NOTE: This sheet is a summary. It may not cover all possible information. If you have questions about this medicine, talk to your doctor, pharmacist, or health care provider. ? 2024 Elsevier/Gold Standard (2023-11-01) Atorvastatin Tablets What is this medication? ATORVASTATIN (a TORE va sta tin) treats high cholesterol and reduces the risk of heart attack and stroke. It works by decreasing bad cholesterol and fats (such as LDL, triglycerides) and increasing good cholesterol (HDL) in your blood. It belongs to a group of medications called statins. Changes todiet and exercise are often combined with this medication. This medicine may be used for other purposes; ask your health care provider or pharmacist if you have questions. COMMON BRAND NAME(S): Lipitor What should I tell my care team before I take this medication? They need to know if you have any of these conditions: Diabetes Frequently drink alcohol Kidney disease Liver disease Muscle cramps, pain Stroke Thyroid disease An unusual or allergic reaction to atorvastatin, other medications, foods, dyes, or preservatives or trying to get How should I use this medication? Take this medication by mouth. Take it as directed on the label at the same time every day. You cantake it with or without food. If it upsets your stomach, take it with food. Keep taking it unless your care team tells you to stop. Do not take this medication with grapefruit juice. Talk to your care team about the use of this medication in children. While it may be prescribed forchildren as young as 10 years for selected conditions, precautions do apply. Overdosage: If you think you have taken too much of this medicine contact a poison control center or emergency room at once. NOTE: This medicine is only for you. Do not share this medicine with others. What if I miss a dose? If you miss a dose, take it as soon as you can unless it is more than 12 hours late. If it is more than 12 hours late, skip the missed dose. Take the next dose at the normal time. If it is almost time for your next dose, take only that dose. Do not take double or extra doses. What may interact with this medication? Do not take this medication with any of the following: Dasabuvir; ombitasvir; paritaprevir; ritonavir Lonafarnib Ombitasvir; paritaprevir; ritonavir Posaconazole Red yeast rice This medication may also interact with the following: Alcohol Certain antibiotics, such as erythromycin, clarithromycin Certain antivirals for HIV or hepatitis Certain medications for cholesterol, such as fenofibrate, gemfibrozil, niacin Certain medications for fungal infections, such as ketoconazole, itraconazole, voriconazole Colchicine Cyclosporine Digoxin Estrogen or progestin hormones Grapefruit juice Rifampin This list may not describe all possible interactions. Give your health care provider a list of all the medicines, herbs, non-prescription drugs, or dietary supplements you use. Also tell them if you smoke, drink alcohol, or use illegal drugs. Some items may interact with your medicine. What should I watch for while using this medication? Visit your care team for regular checks on your progress. Tell your care team if your symptoms do not start to get better or if they get worse. Your care team may tell you to stop taking this medication if you develop muscle problems. If your muscle problems do not go away after stopping this medication, contact your care team. This medication may increase blood sugar. The risk may be higher in patients who already have diabetes. Ask your care team what you can do to lower your risk of diabetes while on this medication. If you are going to need surgery or other procedure, tell your care team that you are using this medication. Taking this medication is only part of a total heart healthy program. Ask your care team if there are other changes you can make to improve your overall health. Drinking more than 2 alcoholic drinks every day with this medication can increase the risk of side effects. Talk to your care team if you wish to become or think you might be . This medication can cause serious defects. Talk to your care team before . Changes to your treatment plan may be needed. What side effects may I notice from receiving this medication? Side effects that you should report to your care team as soon as possible: Allergic reactions?skin rash, itching, hives, swelling of the face, lips, tongue, or throat High blood sugar (hyperglycemia)?increased thirst or amount of urine, unusual weakness or fatigue, blurry vision Liver injury?right upper belly pain, loss of appetite, nausea, light-colored stool, dark yellow or brown urine, yellowing skin or eyes, unusual weakness or fatigue Muscle injury?unusual weakness or fatigue, muscle pain, dark yellow or brown urine, decrease in amount of urine Redness, blistering, peeling, or loosening of the skin, including inside the mouth Side effects that usually do not require medical attention (report to your care team if they continue or are bothersome): Diarrhea Nausea Trouble sleeping Upset stomach This list may not describe all possible side effects. Call your doctor for medical advice about side effects. You may report side effects to FDA at 5-761-FYC-5280. Where should I keep my medication? Keep out of the reach of children and pets. Store at room temperature between 20 and 25 degrees C (68 and 77 degrees F). Get rid of any unused medication after the expiration date. To get rid of medications that are no longer needed or have : Take the medication to a medication take-back program. Check with your pharmacy or law enforcement to find a location. If you cannot return the medication, check the label or package insert to see if the medication should be thrown out in the garbage or flushed down the toilet. If you are not sure, ask your care team. If it is safe to put it in the trash, take the medication out of the container. Mix the medicationwith cat litter, dirt, coffee grounds, or other unwanted substance. Seal the mixture in a bag or container. Put it in the trash. NOTE: This sheet is a summary. It may not cover all possible information. If you have questions about this medicine, talk to your doctor, pharmacist, or health care provider. ? 2024 Elsevier/Gold Standard (2023-05-24) Duloxetine Delayed-Release Capsules What is this medication? DULOXETINE (doo LOX e teen) treats depression, anxiety, fibromyalgia, and certain types of chronic pain such as nerve, bone, or joint pain. It increases the amount of serotonin and norepinephrine in the brain, hormones that help regulate mood and pain. It belongs to a group of medications called SNRIs. This medicine may be used for other purposes; ask your health care provider or pharmacist if you have questions. COMMON BRAND NAME(S): Ji, Severiano, Ada What should I tell my care team before I take this medication? They need to know if you have any of these conditions: Bipolar disorder Glaucoma High blood pressure Kidney disease Liver disease Seizures Suicidal thoughts, plans, or attempt by you or a family member Take medications that treat or prevent blood clots Taken an MAOI, such as Carbex, Eldepryl, Marplan, Nardil, or Parnate in the last 14 days Trouble passing urine An unusual reaction to duloxetine, other medications, foods, dyes, or preservatives or trying to get How should I use this medication? Take this medication by mouth with water. Take it as directed on the prescription label at the sametime every day. Do not cut, crush, or chew this medication. Swallow the capsules whole. Some capsules may be opened and sprinkled on applesauce. Check with your care team or pharmacist if you are not sure. You can take this medication with or without food. Do not take your medication more often than directed. Do not stop taking this medication suddenly except upon the advice of your care team. Stopping this medication too quickly may cause serious side effects or your condition may worsen. A special MedGuide will be given to you by the pharmacist with each prescription and refill. Be sure to read this information carefully each time. Talk to your care team about the use of this medication in children. While it may be prescribed forchildren as young as 7 years for selected conditions, precautions do apply. Overdosage: If you think you have taken too much of this medicine contact a poison control center or emergency room at once. NOTE: This medicine is only for you. Do not share this medicine with others. What if I miss a dose? If you miss a dose, take it as soon as you can. If it is almost time for your next dose, take only that dose. Do not take double or extra doses. What may interact with this medication? Do not take this medication with any of the following: Desvenlafaxine Levomilnacipran Linezolid MAOIs, such as Carbex, Eldepryl, Emsam, Marplan, Nardil, and Parnate Methylene blue (injected into a vein) Milnacipran Safinamide Thioridazine Venlafaxine Viloxazine This medication may also interact with the following: Alcohol Amphetamines Aspirin and aspirin-like medications Certain antibiotics, such as ciprofloxacin and enoxacin Certain medications for blood pressure, heart disease, irregular heart beat Certain medications for mental health conditions Certain medications for migraine headache, such as almotriptan, eletriptan, frovatriptan, naratriptan, rizatriptan, sumatriptan, zolmitriptan Certain medications that treat or prevent blood clots, such as warfarin, enoxaparin, and dalteparin Cimetidine Fentanyl [place] NSAIDS, medications for pain and inflammation, such as ibuprofen or naproxen Phentermine Procarbazine Rasagiline Sibutramine Parris's Wort Theophylline Tramadol Tryptophan This list may not describe all possible interactions. Give your health care provider a list of all the medicines, herbs, non-prescription drugs, or dietary supplements you use. Also tell them if you smoke, drink alcohol, or use illegal drugs. Some items may interact with your medicine. What should I watch for while using this medication? Tell your care team if your symptoms do not get better or if they get worse. Visit your care team for regular checks on your progress. Because it may take several weeks to see the full effects of this medication, it is important to continue your treatment as prescribed by your care team. This medication may cause serious skin reactions. They can happen weeks to months after starting the medication. Contact your care team right away if you notice fevers or flu-like symptoms with a rash. The rash may be red or purple and then turn into blisters or peeling of the skin. You may also notice a red rash with swelling of the face, lips, or lymph nodes in your neck or under your arms. Watch for new or worsening thoughts of suicide or depression. This includes sudden changes in mood,behaviors, or thoughts. These changes can happen at any time but are more common in the beginning of treatment or after a change in dose. Call your care team right away if you experience these thoughts or worsening depression. This medication may cause mood and behavior changes, such as anxiety, nervousness, irritability, hostility, restlessness, excitability, hyperactivity, or trouble sleeping. These changes can happen atany time but are more common in the beginning of treatment or after a change in dose. Call your care team right away if you notice any of these symptoms. This medication may affect your coordination, reaction time, or judgment. Do not drive or operate machinery until you know how this medication affects you. Sit up or stand slowly to reduce the risk of dizzy or fainting spells. Drinking alcohol with this medication can increase the risk of these side effects. This medication may increase blood sugar. The risk may be higher in patients who already have diabetes. Ask your care team what you can do to lower your risk of diabetes while taking this medication. This medication can cause an increase in blood pressure. This medication can also cause a sudden drop in your blood pressure, which may make you feel faint and increase the chance of a fall. These effects are most common when you first start the medication or when the dose is increased, or during use of other medications that can cause a sudden drop in blood pressure. Check with your care team for instructions on monitoring your blood pressure while taking this medication. Your mouth may get dry. Chewing sugarless gum or sucking hard candy and drinking plenty of water may help. Contact your care team if the problem does not go away or is severe. What side effects may I notice from receiving this medication? Side effects that you should report to your care team as soon as possible: Allergic reactions?skin rash, itching, hives, swelling of the face, lips, tongue, or throat Bleeding?bloody or black, tar-like stools, red or dark brown urine, vomiting blood or brown material that looks like coffee grounds, small, red or purple spots on skin, unusual bleeding or bruising Increase in blood pressure Liver injury?right upper belly pain, loss of appetite, nausea, light-colored stool, dark yellow or brown urine, yellowing skin or eyes, unusual weakness or fatigue Low sodium level?muscle weakness, fatigue, dizziness, headache, confusion Redness, blistering, peeling, or loosening of the skin, including inside the mouth Serotonin syndrome?irritability, confusion, fast or irregular heartbeat, muscle stiffness, twitching muscles, sweating, high fever, seizures, chills, vomiting, diarrhea Sudden eye pain or change in vision such as blurry vision, seeing halos around lights, vision loss Thoughts of suicide or self-harm, worsening mood, feelings of depression Trouble passing urine Side effects that usually do not require medical attention (report to your care team if they continue or are bothersome): Change in sex drive or performance Constipation Diarrhea Dizziness Dry mouth Excessive sweating Loss of appetite Nausea Vomiting This list may not describe all possible side effects. Call your doctor for medical advice about side effects. You may report side effects to FDA at 7-420-ENL-5669. Where should I keep my medication? Keep out of the reach of children and pets. Store at room temperature between 15 and 30 degrees C (59 to 86 degrees F). Get rid of any unused medication after the expiration date. To get rid of medications that are no longer needed or have : Take the medication to a medication take-back program. Check with your pharmacy or law enforcement to find a location. If you cannot return the medication, check the label or package insert to see if the medication should be thrown out in the garbage or flushed down the toilet. If you are not sure, ask your care team. If it is safe to put it in the trash, take the medication out of the container. Mix the medicationwith cat litter, dirt, coffee grounds, or other unwanted substance. Seal the mixture in a bag or container. Put it in the trash. NOTE: This sheet is a summary. It may not cover all possible information. If you have questions about this medicine, talk to your doctor, pharmacist, or health care provider. ? 2024 Elsevier/Gold Standard (2023-08-05) Empagliflozin Tablets What is this medication? EMPAGLIFLOZIN (MARY lopez) treats type 2 diabetes. It works by helping your kidneys remove sugar (glucose) from your blood through the urine, which decreases your blood sugar. It may also be used to lower the risk of worsening disease and caused by kidney disease and heart failure. Itworks by helping your kidneys remove salt (sodium) from your blood through the urine. This decreases the amount of work the kidneys and heart have to do. Changes to diet and exercise are often combined with this medication. This medicine may be used for other purposes; ask your health care provider or pharmacist if you have questions. COMMON BRAND NAME(S): Jardiance What should I tell my care team before I take this medication? They need to know if you have any of these conditions: Change in diet, eating less Changes to your insulin dose Dehydration Diet low in salt Frequently drink alcohol Having surgery History of amputation History of diabetic ketoacidosis (DKA) History of foot sores caused by diabetes History of genital infections History of pancreatitis or pancreas problems History of urinary tract infections (UTI) Kidney disease Liver disease Nerve condition that causes pain, tingling, or numbness in the hands or feet Peripheral vascular disease, narrowing of the blood vessels Serious infection Trouble passing urine Type 1 diabetes An unusual or allergic reaction to empagliflozin, other medications, foods, dyes, or preservatives or trying to get How should I use this medication? Take this medication by mouth with water. Take it as directed on the prescription label at the sametime every day. You may take it with or without food. Keep taking it unless your care team tells you to stop. A special MedGuide will be given to you by the pharmacist with each prescription and refill. Be sure to read this information carefully each time. Talk to your care team about the use of this medication in children. While it may be prescribed forchildren as young as 10 years for selected conditions, precautions do apply. Overdosage: If you think you have taken too much of this medicine contact a poison control center or emergency room at once. NOTE: This medicine is only for you. Do not share this medicine with others. What if I miss a dose? If you miss a dose, take it as soon as you can. If it is almost time for your next dose, take only that dose. Do not take double or extra doses. What may interact with this medication? Alcohol Diuretics Insulin [place] This list may not describe all possible interactions. Give your health care provider a list of all the medicines, herbs, non-prescription drugs, or dietary supplements you use. Also tell them if you smoke, drink alcohol, or use illegal drugs. Some items may interact with your medicine. What should I watch for while using this medication? Visit your care team for regular checks on your progress. Tell your care team if your symptoms do not start to get better or if they get worse. You may need blood work done while you are taking this medication. If you have diabetes, your care team will monitor your HbA1C (A1C). This test shows what your average blood sugar (glucose) level was over the past 2 to 3 months. This medication may increase the risk of diabetic ketoacidosis (DKA), a serious condition in which high ketone levels make your blood too acidic. Your care team may ask you to check for ketones in your urine or blood while you are taking this medication. If you develop nausea, vomiting, stomach pain, unusual weakness or fatigue, or trouble breathing, stop taking this medication and call your care team right away. Check with your care team if you have severe diarrhea, nausea, and vomiting, or if you sweat a lot.The loss of too much body fluid may make it dangerous for you to take this medication. Know the symptoms of low blood sugar and know how to treat it. Always carry a source of quick sugarwith you. Examples include hard sugar candy or glucose tablets. Make sure others know that you can choke if you eat or drink if your blood sugar is too low and you are unable to care for yourself. Get medical help at once. Tell your care team if you have high blood sugar. Your medication dose may change if your body is under stress. Some types of stress that may affect your blood sugar include fever, infection, and surgery. If you have diabetes, you may get a false-positive result for sugar in your urine while you are taking this medication. Check with your care team. What side effects may I notice from receiving this medication? Side effects that you should report to your care team as soon as possible: Allergic reactions?skin rash, itching, hives, swelling of the face, lips, tongue, or throat Dehydration?increased thirst, dry mouth, feeling faint or lightheaded, headache, dark yellow or brown urine Diabetic ketoacidosis (DKA)?increased thirst or amount of urine, dry mouth, fatigue, fruity odor tobreath, trouble breathing, stomach pain, nausea, vomiting Genital yeast infection?redness, swelling, pain, or itchiness, odor, thick or lumpy discharge New pain or tenderness, change in skin color, sores or ulcers, infection of the leg or foot Infection or redness, swelling, tenderness, or pain in the genitals, or area from the genitals to the back of the rectum Urinary tract infection (UTI)?burning when passing urine, passing frequent small amounts of urine, bloody or cloudy urine, pain in the lower back or sides This list may not describe all possible side effects. Call your doctor for medical advice about side effects. You may report side effects to FDA at 8-335-JLN-4649. Where should I keep my medication? Keep out of the reach of children and pets. Store at room temperature between 20 and 25 degrees C (68 and 77 degrees F). Get rid of any unused medication after the expiration date. To get rid of medications that are no longer needed or have : Take the medication to a medication take-back program. Check with your pharmacy or law enforcement to find a location. If you cannot return the medication, check the label or package insert to see if the medication should be thrown out in the garbage or flushed down the toilet. If you are not sure, ask your care team. If it is safe to put it in the trash, take the medication out of the container. Mix the medicationwith cat litter, dirt, coffee grounds, or other unwanted substance. Seal the mixture in a bag or container. Put it in the trash. NOTE: This sheet is a summary. It may not cover all possible information. If you have questions about this medicine, talk to your doctor, pharmacist, or health care provider. ? 2024 Elsevier/Gold Standard (2024-06-13) Isosorbide Mononitrate Tablets What is this medication? ISOSORBIDE MONONITRATE (eye rodger SOR bide mon oh CASANDRA trate) prevents chest pain (angina). It works by relaxing blood vessels, which decreases the amount of work the heart has to do. It belongs to a group of medications called nitrates. Do not use it to treat sudden chest pain. This medicine may be used for other purposes; ask your health care provider or pharmacist if you have questions. COMMON BRAND NAME(S): Ismo, Monoket What should I tell my care team before I take this medication? They need to know if you have any of these conditions: Previous heart attack or heart failure An unusual or allergic reaction to isosorbide mononitrate, nitrates, other medications, foods, dyes, or preservatives or trying to get Breast-feeding How should I use this medication? Take this medication by mouth with a glass of water. Follow the directions on the prescription label. Take your medication at regular intervals. Do not take your medication more often than directed. Do not stop taking this medication suddenly or your symptoms may get worse. Ask your care team how to gradually reduce the dose. Talk to your care team about the use of this medication in children. Special care may be needed. Overdosage: If you think you have taken too much of this medicine contact a poison control center or emergency room at once. NOTE: This medicine is only for you. Do not share this medicine with others. What if I miss a dose? If you miss a dose, take it as soon as you can. If it is almost time for your next dose, take only that dose. Do not take double or extra doses. What may interact with this medication? Do not take this medication with any of the following: Certain medications for erectile dysfunction (ED), such as avanafil, sildenafil, tadalafil, or vardenafil [place] This medication may also interact with the following: Medications for high blood pressure Other medications for angina or heart failure This list may not describe all possible interactions. Give your health care provider a list of all the medicines, herbs, non-prescription drugs, or dietary supplements you use. Also tell them if you smoke, drink alcohol, or use illegal drugs. Some items may interact with your medicine. What should I watch for while using this medication? Visit your care team for regular checks on your progress. Check your heart rate and blood pressure as directed. Know what your heart rate and blood pressure should be and when to contact your care team. Tell your care team if you feel your medication is no longer working. This medication may affect your coordination, reaction time, or judgment. Do not drive or operate machinery until you know how this medication affects you. Sit up or stand slowly to reduce the risk of dizzy or fainting spells. Drinking alcohol with this medication can increase the risk of these side effects. Do not treat yourself for coughs, colds, or pain while you are taking this medication without asking your care team for advice. Some medications may increase your blood pressure. What side effects may I notice from receiving this medication? Side effects that you should report to your care team as soon as possible: Allergic reactions?skin rash, itching, hives, swelling of the face, lips, tongue, or throat Headache, unusual weakness or fatigue, shortness of breath, nausea, vomiting, rapid heartbeat, blueskin or lips, which may be signs of methemoglobinemia Increased pressure around the brain?severe headache, blurry vision, change in vision, nausea, vomiting Low blood pressure?dizziness, feeling faint or lightheaded, blurry vision Slow heartbeat?dizziness, feeling faint or lightheaded, confusion, trouble breathing, unusual weakness or fatigue Worsening chest pain (angina)?pain, pressure, or tightness in the chest, neck, back, or arms Side effects that usually do not require medical attention (report to your care team if they continue or are bothersome): Dizziness Flushing Headache This list may not describe all possible side effects. Call your doctor for medical advice about side effects. You may report side effects to FDA at 3-129-YCS-3966. Where should I keep my medication? Keep out of the reach of children. Store between 15 and 30 degrees C (59 and 86 degrees F). Keep container tightly closed. Throw away any unused medication after the expiration date. NOTE: This sheet is a summary. It may not cover all possible information. If you have questions about this medicine, talk to your doctor, pharmacist, or health care provider. ? 2024 Elsevier/Gold Standard (2023-05-10) Gabapentin Capsules or Tablets What is this medication? GABAPENTIN (JAMAR a PEN tin) treats nerve pain. It may also be used to prevent and control seizures in people with epilepsy. It works by calming overactive nerves in your body. This medicine may be used for other purposes; ask your health care provider or pharmacist if you have questions. COMMON BRAND NAME(S): Active-PAC with Gabapentin, Gabarone, Gralise, Neurontin What should I tell my care team before I take this medication? They need to know if you have any of these conditions: Have or have had depression Kidney disease Lung or breathing disease, such as asthma or COPD Substance use disorder Suicidal thoughts, plans, or attempt An unusual or allergic reaction to gabapentin, other medications, foods, dyes, or preservatives or trying to get How should I use this medication? Take this medication by mouth with a glass of water. Follow the directions on the prescription label. You can take it with or without food. If it upsets your stomach, take it with food. Take your medication at regular intervals. Do not take it more often than directed. Do not stop taking except on your care team's advice. If you are directed to break the 600 or 800 mg tablets in half as part of your dose, the extra halftablet should be used for the next dose. If you have not used the extra half tablet within 28 days,it should be thrown away. A special MedGuide will be given to you by the pharmacist with each prescription and refill. Be sure to read this information carefully each time. Talk to your care team about the use of this medication in children. While this medication may be prescribed for children as young as 3 years for selected conditions, precautions do apply. Overdosage: If you think you have taken too much of this medicine contact a poison control center or emergency room at once. NOTE: This medicine is only for you. Do not share this medicine with others. What if I miss a dose? If you miss a dose, take it as soon as you can. If it is almost time for your next dose, take only that dose. Do not take double or extra doses. What may interact with this medication? Alcohol Antihistamines for allergy, cough, and cold Certain medications for anxiety or sleep Certain medications for depression like amitriptyline, fluoxetine, sertraline Certain medications for seizures like phenobarbital, primidone Certain medications for stomach problems General anesthetics like halothane, isoflurane, methoxyflurane, propofol Local anesthetics like lidocaine, pramoxine, tetracaine Medications that relax muscles for surgery Opioid medications for pain Phenothiazines like chlorpromazine, mesoridazine, prochlorperazine, thioridazine This list may not describe all possible interactions. Give your health care provider a list of all the medicines, herbs, non-prescription drugs, or dietary supplements you use. Also tell them if you smoke, drink alcohol, or use illegal drugs. Some items may interact with your medicine. What should I watch for while using this medication? Visit your care team for regular checks on your progress. Tell your care team if your symptoms do not start to get better or if they get worse. Do not suddenly stop taking this medication. You may develop a severe reaction. Your care team willtell you how much medication to take. If your care team wants you to stop the medication, the dose may be slowly lowered over time to avoid any side effects. This medication may affect your coordination, reaction time, or judgment. Do not drive or operate machinery until you know how this medication affects you. Sit up or stand slowly to reduce the risk of dizzy or fainting spells. Drinking alcohol with this medication can increase the risk of these side effects. Taking this medication with other SWIMMING [employer] SALESPERSON depressants can make you too sleepy. This can make it hard tobreathe and stay awake. In some cases, it can cause coma and . SW[employer]MING [employer]ERSON depressants include opioids, benzodiazepines, muscle relaxants, medications for sleep, and alcohol. Talk to your care team about all the medications, vitamins, and supplements you take. They can tell you what is safe to take together. Call emergency services right away if you have slow or shallow breathing, feel dizzy or confused, or have trouble staying awake. This medication can cause new or worsening depression and increase the risk of suicidal thoughts and actions in a small number of people. This can happen while you are taking this medication or afterstopping it. Talk to your care team right away if you have changes in mood or behavior or thoughts of self-harm or suicide. They can help you. This medication may cause serious skin reactions. They can happen weeks to months after starting the medication. Talk to your care team right away if you have fevers or flu-like symptoms with a rash.The rash may be red or purple and then turn into blisters or peeling of the skin. Or you might notice a red rash with swelling of the face, lips, or lymph nodes in your neck or under your arms. If you take this medication for seizures, wear a medical ID bracelet or chain. Carry a card that describes your condition. List the medications and doses you take on the card. Talk to your care team if you may be . There are benefits and risks to taking medications during . Your care team can help you find the option that works for you. What side effects may I notice from receiving this medication? Side effects that you should report to your care team as soon as possible: Allergic reactions or angioedema?skin rash, itching or hives, swelling of the face, eyes, lips, tongue, arms, or legs, trouble swallowing or breathing Rash, fever, and swollen lymph nodes Thoughts of suicide or self-harm, worsening mood, feelings of depression Trouble breathing Unusual changes in mood or behavior in children after use such as trouble concentrating, hostility,or restlessness Side effects that usually do not require medical attention (report these to your care team if they continue or are bothersome): Dizziness Drowsiness Nausea Swelling of the ankles, hands, or feet Vomiting This list may not describe all possible side effects. Call your doctor for medical advice about side effects. You may report side effects to FDA at 0-237-WCL-5958. Where should I keep my medication? Keep out of reach of children and pets. Store at room temperature between 15 and 30 degrees C (59 and 86 degrees F). Get rid of any unused medication after the expiration date. This medication may cause accidental overdose and if taken by other adults, children, or pets. To get rid of medications that are no longer needed or have : Take the medication to a medication take-back program. Check with your pharmacy or law enforcement to find a location. If you cannot return the medication, check the label or package insert to see if the medication should be thrown out in the garbage or flushed down the toilet. If you are not sure, ask your care team. If it is safe to put it in the trash, empty the medication out of the container. Mix the medication with cat litter, dirt, coffee grounds, or other unwanted substance. Seal the mixture in a bag or container. Put it in the trash. NOTE: This sheet is a summary. It may not cover all possible information. If you have questions about this medicine, talk to your doctor, pharmacist, or health care provider. ? 2024 Elsevier/Gold Standard (2025-03-19) Sodium Picosulfate; Magnesium Oxide; Anhydrous Citric Acid Solution What is this medication? SODIUM PICOSULFATE; MAGNESIUM OXIDE; ANHYDROUS CITRIC ACID (RODGER artemio um PI koe SUL fate; mag KATELYNNE zechristianm OX carol; dia GARCIA ananya id) cleans the bowel out before a medical procedure. It works by increasing the amount of water your intestine absorbs, which softens the stool. It also helps the muscles in your intestines move stool. This helps produce a bowel movement. It belongs to a group of medications called laxatives. This medicine may be used for other purposes; ask your health care provider or pharmacist if you have questions. COMMON BRAND NAME(S): Farida POWELL What should I tell my care team before I take this medication? They need to know if you have any of these conditions: Dehydration Frequently drink alcohol or use other substances Heart disease High or low levels of electrolytes, such as magnesium, potassium, or sodium in your blood History of fainting Irregular heartbeat or rhythm Kidney disease Seizures Stomach or intestine problems Trouble swallowing An unusual or allergic reaction to sodium picosulfate, magnesium oxide, anhydrous citric acid, other medications, dyes, or preservatives or trying to get How should I use this medication? Take this medication by mouth. Take it as directed on the prescription label. Some medications should be taken 2 hours before or 6 hours after taking this medication. Talk to your care team about all of the medications you take. A special MedGuide will be given to you by the pharmacist with each prescription and refill. Be sure to read this information carefully each time. This medication comes with INSTRUCTIONS FOR USE. Ask your pharmacist for directions on how to use this medication. Read the information carefully. Talk to your pharmacist or care team if you have questions. Talk to your care team about the use of this medication in children. While this medication may be prescribed for children as young as 9 years for selected conditions, precautions do apply. Overdosage: If you think you have taken too much of this medicine contact a poison control center or emergency room at once. NOTE: This medicine is only for you. Do not share this medicine with others. What if I miss a dose? This does not apply. This medication is not for regular use. What may interact with this medication? Alcohol Certain antibiotics, such as ciprofloxacin, levofloxacin, tetracycline Certain medications for blood pressure, heart disease, irregular heartbeat Certain medications for depression, anxiety, or other mental health conditions Certain medications for seizures Diuretics Iron supplements NSAIDS, medications for pain and inflammation, such as ibuprofen or naproxen Other laxatives Penicillamine This list may not describe all possible interactions. Give your health care provider a list of all the medicines, herbs, non-prescription drugs, or dietary supplements you use. Also tell them if you smoke, drink alcohol, or use illegal drugs. Some items may interact with your medicine. What should I watch for while using this medication? Talk to your care team about how to prepare for your procedure. You may need to change your diet several days before the procedure. It is important to stay hydrated by drinking plenty of clear liquids, such as sports drinks, apple juice, and water. Ask your care team when you should stop drinking and eating before the procedure. Tell them if you are unable to complete the regimen as directed. This medication may affect your coordination, reaction time, or judgment. Do not drive or operate machinery until you know how this medication affects you. Sit up or stand slowly to reduce the risk of dizzy or fainting spells. Drinking alcohol with this medication can increase the risk of these side effects. What side effects may I notice from receiving this medication? Side effects that you should report to your care team as soon as possible: Allergic reactions?skin rash, itching, hives, swelling of the face, lips, tongue, or throat Dehydration?increased thirst, dry mouth, feeling faint or lightheaded, headache, dark yellow or brown urine Fast or irregular heartbeat Kidney injury?decrease in the amount of urine, swelling of the ankles, hands, or feet Seizures Sudden or severe stomach pain, bloody diarrhea, fever, nausea, vomiting Side effects that usually do not require medical attention (report these to your care team if they continue or are bothersome): Dizziness Headache Nausea Stomach pain This list may not describe all possible side effects. Call your doctor for medical advice about side effects. You may report side effects to FDA at 8-774-NKW-5475. Where should I keep my medication? Keep out of the reach of children and pets. Store at room temperature between 20 and 25 degrees C (68 and 77 degrees F). Do not refrigerate. Donot freeze. Get rid of any unused medication after the expiration date. To get rid of medications that are no longer needed or have : Take the medications to a medication take-back program. Check with your pharmacy or law enforcementto find a location. If your cannot return the medication, check the label or package insert to see if the medication should be thrown out in the garbage or flushed down the toilet. If you are not sure, ask your care team. If it is safe to put it in the trash, pour the medication out of the container. Mix the medication with cat litter, dirt, coffee grounds, or other unwanted substance. Seal the mixture in a bag or container. Put it in the trash. NOTE: This sheet is a summary. It may not cover all possible information. If you have questions about this medicine, talk to your doctor, pharmacist, or health care provider. ? 2024 Elsevier/Gold Standard (2024-06-13) Metformin Tablets What is this medication? METFORMIN (met FOR min) treats type 2 diabetes. It controls blood sugar (glucose) and helps your body use insulin effectively. Changes to diet and exercise are often combined with this medication. This medicine may be used for other purposes; ask your health care provider or pharmacist if you have questions. COMMON BRAND NAME(S): Glucophage What should I tell my care team before I take this medication? They need to know if you have any of these conditions: Dehydration Frequently drink alcohol Have had diabetic ketoacidosis (DKA) Having a CT or X-ray scan Having surgery Heart attack Heart disease Infection Irregular menstrual cycles Kidney disease Liver disease Low levels of calcium in your blood Low levels of vitamin B in your blood Stroke An unusual or allergic reaction to metformin, other medications, foods, dyes, or preservatives or trying to get How should I use this medication? Take this medication by mouth with water. Take it as directed on the prescription label at the sametime every day. Take it with food at the start of a meal. Keep taking it unless your care team tells you to stop. Talk to your care team about the use of this medication in children. While it may be prescribed forchildren as young as 10 years for selected conditions, precautions do apply. Overdosage: If you think you have taken too much of this medicine contact a poison control center or emergency room at once. NOTE: This medicine is only for you. Do not share this medicine with others. What if I miss a dose? If you miss a dose, take it as soon as you can. If it is almost time for your next dose, take only that dose. Do not take double or extra doses. What may interact with this medication? Do not take this medication with any of the following: Certain contrast agents used before, CT, MRI, or X-ray scans This medication may also interact with the following: Acetazolamide Alcohol Cimetidine Dichlorphenamide Dolutegravir Ranolazine Topiramate Vandetanib Zonisamide Some medications may affect your blood sugar levels or hide the symptoms of low blood sugar (hypoglycemia). Talk with your care team about all the medications you take. They may suggest checking yourblood sugar levels more often. Medications that may affect your blood sugar levels include: Alcohol Certain antibiotics, such as ciprofloxacin, levofloxacin, sulfamethoxazole; trimethoprim Certain medications for blood pressure or heart disease, such as benazepril, enalapril, lisinopril,losartan, valsartan Certain medications for mental health conditions, such as fluoxetine or olanzapine Diuretics, such as hydrochlorothiazide (HCTZ) Estrogen and progestin hormones Other medications for diabetes Steroid medications, such as prednisone or cortisone Testosterone Thyroid hormones Medications that may mask symptoms of low blood sugar include: Beta-blockers, such as atenolol, metoprolol, propranolol Clonidine Guanethidine Reserpine This list may not describe all possible interactions. Give your health care provider a list of all the medicines, herbs, non-prescription drugs, or dietary supplements you use. Also tell them if you smoke, drink alcohol, or use illegal drugs. Some items may interact with your medicine. What should I watch for while using this medication? Visit your care team for regular checks on your progress. Tell your care team if your symptoms do not start to get better or if they get worse. You may need blood work done while you are taking this medication. Your care team will monitor [id number] (A1C). This test shows what your average blood sugar (glucose) level was over the past 2 to 3months. Know the symptoms of low blood sugar and know how to treat it. Always carry a source of quick sugarwith you. Examples include hard sugar candy or glucose tablets. Make sure others know that you can choke if you eat or drink if your blood sugar is too low and you are unable to care for yourself. Get medical help at once. Tell your care team if you have high blood sugar. Your medication dose may change if your body is under stress. Some types of stress that may affect your blood sugar include fever, infection, and surgery. Wear a medical ID bracelet or chain. Carry a card that describes your condition. List the medications and doses you take on the card. Make sure you stay hydrated while taking this medication. Drink water often. Eat fruits and veggiesthat have a high water content. Drink more water when it is hot or you are active. Talk to your care team right away if you have fever, infection, vomiting, diarrhea, or if you sweat a lot while taking this medication. The loss of too much body fluid may make it dangerous for you to take this medication. Tell your care team you are taking this medication before you have surgery or an imaging scan, suchas a CT or X-ray. You may need to stop taking this medication for a while before and after the procedure. Your care team will tell you when to stop and when to start taking it again. Make sure you get enough vitamin B12 while you are taking this medication. Discuss the foods you eat and the vitamins you take with your care team. This medication may cause you to ovulate, which may increase your chances of becoming . Talk with your care team about contraception while you are taking this medication. Contact your care team if you think you might be . What side effects may I notice from receiving this medication? Side effects that you should report to your care team as soon as possible: Allergic reactions?skin rash, itching, hives, swelling of the face, lips, tongue, or throat High lactic acid level?muscle pain or cramps, stomach pain, trouble breathing, general discomfort and fatigue Low vitamin B12 level?pain, tingling, or numbness in the hands or feet, muscle weakness, dizziness,confusion, trouble concentrating Side effects that usually do not require medical attention (report these to your care team if they continue or are bothersome): Diarrhea Gas Headache Metallic taste in mouth Nausea This list may not describe all possible side effects. Call your doctor for medical advice about side effects. You may report side effects to FDA at 4-091-IUN-2743. Where should I keep my medication? Keep out of the reach of children and pets. Store at room temperature between 20 and 25 degrees C (68 and 77 degrees F). Get rid of any unused medication after the expiration date. To get rid of medications that are no longer needed or have : Take the medication to a medication take-back program. Check with your pharmacy or law enforcement to find a location. If you cannot return the medication, check the label or package insert to see if the medication should be thrown out in the garbage or flushed down the toilet. If you are not sure, ask your care team. If it is safe to put in the trash, empty the medication out of the container. Mix the medication with cat litter, dirt, coffee grounds, or other unwanted substance. Seal the mixture in a bag or container. Put it in the trash. NOTE: This sheet is a summary. It may not cover all possible information. If you have questions about this medicine, talk to your doctor, pharmacist, or health care provider. ? 2024 Elsevier/Gold Standard (2024-10-05) Pantoprazole Tablets What is this medication? PANTOPRAZOLE (mcdaniel TOE pra zole) treats heartburn, stomach ulcers, reflux disease, or other conditions that cause too much stomach acid. It works by reducing the amount of acid in the stomach. It belongs to a group of medications called PPIs. This medicine may be used for other purposes; ask your health care provider or pharmacist if you have questions. COMMON BRAND NAME(S): Protonix What should I tell my care team before I take this medication? They need to know if you have any of these conditions: Liver disease Low levels of calcium, magnesium, or potassium in the blood Lupus An unusual or allergic reaction to pantoprazole, other medication, foods, dyes, or preservatives or trying to get Breast-feeding How should I use this medication? Take this medication by mouth. Swallow the tablets whole with a drink of water. Follow the directions on the prescription label. Do not crush, break, or chew. Take your medication at regular intervals. Do not take your medication more often than directed. A special MedGuide will be given to you by the pharmacist with each prescription and refill. Be sure to read this information carefully each time. Talk to your care team about the use of this medication in children. While this medication may be prescribed for children as young as 5 years for selected conditions, precautions do apply. Overdosage: If you think you have taken too much of this medicine contact a poison control center or emergency room at once. NOTE: This medicine is only for you. Do not share this medicine with others. What if I miss a dose? If you miss a dose, take it as soon as you can. If it is almost time for your next dose, take only that dose. Do not take double or extra doses. What may interact with this medication? Do not take this medication with any of the following: Atazanavir Nelfinavir This medication may also interact with the following: Ampicillin Delavirdine Erlotinib Iron salts Medications for fungal infections like ketoconazole, itraconazole and voriconazole Methotrexate Mycophenolate mofetil Warfarin This list may not describe all possible interactions. Give your health care provider a list of all the medicines, herbs, non-prescription drugs, or dietary supplements you use. Also tell them if you smoke, drink alcohol, or use illegal drugs. Some items may interact with your medicine. What should I watch for while using this medication? It can take several days before your stomach pain gets better. Check with your care team if your condition does not start to get better, or if it gets worse. Do not treat diarrhea with over the counter products. Contact your care team if you have diarrhea that lasts more than 2 days or if it is severe and watery. You may need blood work done while you are taking this medication. Using this medication for a long time may weaken your bones. The risk of bone fractures may be increased. Talk to your care team about your bone health. Using this medication for a long time may cause growths (polyps) in the stomach. They usually don'tcause any symptoms. They are usually not cancerous. Contact your care team if you notice pain or tenderness when you press your stomach, have nausea, or see bloody or black, tar-like stools. This medication may cause a decrease in vitamin B12. You should make sure that you get enough vitamin B12 while you are taking this medication. Discuss the foods you eat and the vitamins you take with your care team. What side effects may I notice from receiving this medication? Side effects that you should report to your care team as soon as possible: Allergic reactions?skin rash, itching, hives, swelling of the face, lips, tongue, or throat Kidney injury?decrease in the amount of urine, swelling of the ankles, hands, or feet Low magnesium level?muscle pain or cramps, unusual weakness or fatigue, fast or irregular heartbeat, tremors Low vitamin B12 level?pain, tingling, or numbness in the hands or feet, muscle weakness, dizziness,confusion, difficulty concentrating Rash on the cheeks or ams that gets worse in the sun Redness, blistering, peeling, or loosening of the skin, including inside the mouth Severe diarrhea, fever Unusual bruising or bleeding Side effects that usually do not require medical attention (report to your care team if they continue or are bothersome): Diarrhea Headache Vomiting This list may not describe all possible side effects. Call your doctor for medical advice about side effects. You may report side effects to FDA at 9-609-SLZ-5159. Where should I keep my medication? Keep out of the reach of children and pets. Store at room temperature between 15 and 30 degrees C (59 and 86 degrees F). Protect from light andmoisture. Throw away any unused medication after the expiration date. NOTE: This sheet is a summary. It may not cover all possible information. If you have questions about this medicine, talk to your doctor, pharmacist, or health care provider. ? 2024 Elsevier/Gold Standard (2022-01-27) Valproic Acid Capsules What is this medication? VALPROIC ACID (amador PROE ik id) prevents and controls seizures in people with epilepsy. It works by calming overactive nerves in your body. This medicine may be used for other purposes; ask your health care provider or pharmacist if you have questions. COMMON BRAND NAME(S): Dalline What should I tell my care team before I take this medication? They need to know if you have any of these conditions: Frequently drink alcohol Kidney disease Liver disease Low platelet counts Mitochondrial disease Suicidal thoughts, plans, or attempt by you or a family member Urea cycle disorder (UCD) An unusual or allergic reaction to divalproex sodium, sodium valproate, valproic acid, other medications, foods, dyes, or preservatives or trying to get Breast-feeding How should I use this medication? Take this medication by mouth with a glass of water. Follow the directions on the prescription label. Do not cut, crush or chew this medication. You can take it with or without food. If it upsets your stomach, take it with food. Take your doses at regular intervals. Do not take your medication moreoften than directed. Do not stop taking except on your care team's advice. A special MedGuide will be given to you by the pharmacist with each prescription and refill. Be sure to read this information carefully each time. Talk to your care team about the use of this medication in children. While this medication may be prescribed for children as young as 10 years for selected conditions, precautions do apply. Overdosage: If you think you have taken too much of this medicine contact a poison control center or emergency room at once. NOTE: This medicine is only for you. Do not share this medicine with others. What if I miss a dose? If you miss a dose, take it as soon as you can. If it is almost time for your next dose, take only that dose. Do not take double or extra doses. What may interact with this medication? Do not take this medication with any of the following: Sodium phenylbutyrate This medication may also interact with the following: Aspirin Certain antibiotics, such as ertapenem, imipenem, meropenem Certain medications for depression, anxiety, or other mental health conditions Certain medications for seizures, such as cannabidiol, carbamazepine, clonazepam, diazepam, ethosuximide, felbamate, lamotrigine, phenobarbital, phenytoin, primidone, rufinamide, topiramate Certain medications that treat or prevent blood clots, such as warfarin Cholestyramine Estrogen and progestin hormones Methotrexate Propofol Rifampin Ritonavir Tolbutamide Zidovudine This list may not describe all possible interactions. Give your health care provider a list of all the medicines, herbs, non-prescription drugs, or dietary supplements you use. Also tell them if you smoke, drink alcohol, or use illegal drugs. Some items may interact with your medicine. What should I watch for while using this medication? Tell your care team if your symptoms do not get better or they start to get worse. This medication may cause serious skin reactions. They can happen weeks to months after starting the medication. Contact your care team right away if you notice fevers or flu-like symptoms with a rash. The rash may be red or purple and then turn into blisters or peeling of the skin. Or, you might notice a red rash with swelling of the face, lips or lymph nodes in your neck or under your arms. Wear a medical ID bracelet or chain, and carry a card that describes your disease and details of your medication and dosage times. You may get drowsy, dizzy, or have blurred vision. Do not drive, use machinery, or do anything thatneeds mental alertness until you know how this medication affects you. To reduce dizzy or fainting spells, do not sit or stand up quickly, especially if you are an older patient. Alcohol can increasedrowsiness and dizziness. Avoid alcoholic drinks. This medication can make you more sensitive to the sun. Keep out of the sun. If you cannot avoid being in the sun, wear protective clothing and use sunscreen. Do not use sun lamps or tanning beds/booths. Patients and their families should watch out for new or worsening depression or thoughts of suicide. Also watch out for sudden changes in feelings such as feeling anxious, agitated, panicky, irritable, hostile, aggressive, impulsive, severely restless, overly excited and hyperactive, or not being able to sleep. If this happens, especially at the beginning of treatment or after a change in dose, call your care team. Women should inform their care team if they wish to become or think they might be . There is a potential for serious side effects to an unborn child. Talk to your care team or pharmacist for more information. Women who become while using this medication may enroll in the [place] Drug Registry by calling . This registry collects information about the safety of antiepileptic medication use during . This medication may cause a decrease in folic acid and vitamin D. You should make sure that you getenough vitamins while you are taking this medication. Discuss the foods you eat and the vitamins you take with your care team. What side effects may I notice from receiving this medication? Side effects that you should report to your care team as soon as possible: Allergic reactions or angioedema?skin rash, itching or hives, swelling of the face, eyes, lips, tongue, arms, or legs, trouble swallowing or breathing High ammonia level?unusual weakness or fatigue, confusion, loss of appetite, nausea, vomiting, seizures Liver injury?right upper belly pain, loss of appetite, nausea, light-colored stool, dark yellow or brown urine, yellowing skin or eyes, unusual weakness or fatigue Low body temperature, drowsiness, confusion Pancreatitis?severe stomach pain that spreads to your back or gets worse after eating or when touched, fever, nausea, vomiting Rash, fever, and swollen lymph nodes Redness, blistering, peeling, or loosening of the skin, including inside the mouth Thoughts of suicide or self-harm, worsening mood, feelings of depression Unusual bruising or bleeding Side effects that usually do not require medical attention (report these to your care team if they continue or are bothersome): Change in vision Dizziness Drowsiness Hair loss Headache Nausea Tremors or shaking Weight gain This list may not describe all possible side effects. Call your doctor for medical advice about side effects. You may report side effects to FDA at 8-822-DFV-9925. Where should I keep my medication? Keep out of reach of children and pets. Store at room temperature between 15 and 25 degrees C (59 and 77 degrees F). Keep container tightlyclosed. Throw away any unused medication after the expiration date. NOTE: This sheet is a summary. It may not cover all possible information. If you have questions about this medicine, talk to your doctor, pharmacist, or health care provider. ? 2024 Elsevier/Gold Standard (2025-03-27) Sodium Sulfate; Magnesium Sulfate; Potassium Chloride Tablets What is this medication? SODIUM SULFATE; MAGNESIUM SULFATE; POTASSIUM CHLORIDE (SODIUM SUL fate; mag NEE zee um SUL fate; ryan TASS i um klor carol) cleans the bowel out before a medical procedure. It works by increasing the amount of water your intestine absorbs. This softens the stool, making it easier to have a bowel movement. It also increases pressure, which prompts the muscles in your intestines to move stool. It belongs to a group of medications called laxatives. This medicine may be used for other purposes; ask your health care provider or pharmacist if you have questions. COMMON BRAND NAME(S): SUTAB What should I tell my care team before I take this medication? They need to know if you have any of these conditions: Dehydration Diet low in salt Difficulty swallowing Gout Heart disease High or low levels of calcium, magnesium, potassium, or sodium in the blood Irregular heartbeat Kidney disease Seizures Stomach or intestine problems Withdrawing from alcohol or benzodiazepine use An unusual or allergic reaction to sodium sulfate, magnesium sulfate, potassium chloride, other medications, foods, dyes, or preservatives or trying to get Breast-feeding How should I use this medication? Take this medication by mouth with water. Take it as directed on the prescription label. Your care team will tell you when to start this medication. Do not skip a dose or stop your medication early. Each bottle contains tablets and a drying agent (desiccant) to keep the tablets dry. Remove and getrid of the drying agent from both bottles. You will need to follow a special diet before your procedure. Talk to your care team. You may drinkclear liquids while taking this medication and up to 2 hours before the colonoscopy. Take each dose of this medication at least 1 hour after other medications you take by mouth. Talk to your care team if you have questions. This medication comes with INSTRUCTIONS FOR USE. Ask your pharmacist for directions on how to use this medication. Read the information carefully. Talk to your pharmacist or care team if you have questions. A special MedGuide will be given to you by the pharmacist with each prescription and refill. Be sure to read this information carefully each time. Talk to your care team about the use of this medication in children. Special care may be needed. Overdosage: If you think you have taken too much of this medicine contact a poison control center or emergency room at once. NOTE: This medicine is only for you. Do not share this medicine with others. What if I miss a dose? This does not apply. This medication is not for regular use. What may interact with this medication? Do not take this medication with any of the following: Other laxatives This medication may also interact with the following: Certain antibiotics, such as ciprofloxacin, doxycycline, levofloxacin, moxifloxacin, tetracycline Certain medications for blood pressure, heart disease, irregular heartbeat Certain medications for depression, anxiety, or mental health conditions Chlorpromazine Digoxin Diuretics Iron Medications for seizures NSAIDs, medications for pain and inflammation, such as ibuprofen or naproxen Penicillamine This list may not describe all possible interactions. Give your health care provider a list of all the medicines, herbs, non-prescription drugs, or dietary supplements you use. Also tell them if you smoke, drink alcohol, or use illegal drugs. Some items may interact with your medicine. What should I watch for while using this medication? You will need to follow a special diet before your procedure. Talk to your care team. Talk to your care team if you are not able to complete the regimen as prescribed. Do not use with any other laxatives. Drink fluids as directed to prevent dehydration. See your careteam right away if you do not have a bowel movement after using this medication. What side effects may I notice from receiving this medication? Side effects that you should report to your care team as soon as possible: Allergic reactions?skin rash, itching, hives, swelling of the face, lips, tongue, or throat Dehydration?increased thirst, dry mouth, feeling faint or lightheaded, headache, dark yellow or brown urine Fast or irregular heartbeat Kidney injury?decrease in the amount of urine, swelling of the ankles, hands, or feet Seizures Sudden or severe stomach pain, bloody diarrhea, fever, nausea, vomiting Side effects that usually do not require medical attention (report these to your care team if they continue or are bothersome): Bloating Upset stomach This list may not describe all possible side effects. Call your doctor for medical advice about side effects. You may report side effects to FDA at 4-862-FRM-5628. Where should I keep my medication? Keep out of the reach of children and pets. Store at room temperature between 15 and 30 degrees C (59 and 86 degrees F). Get rid of any unused medication after your medical procedure. To get rid of medications that are no longer needed or have : Take the medications to a medication take-back program. Check with your pharmacy or law enforcementto find a location. If your cannot return the medication, check the label or package insert to see if the medication should be thrown out in the garbage or flushed down the toilet. If you are not sure, ask your care team. If it is safe to put it in the trash, take the medication out of the container. Mix the medication with cat litter, dirt, coffee grounds, or other unwanted substance. Seal the mixture in a bag or container. Put it in the trash. NOTE: This sheet is a summary. It may not cover all possible information. If you have questions about this medicine, talk to your doctor, pharmacist, or health care provider. ? 2024 Elsevier/Gold Standard (2023-09-09) * Care Plan - Radha Berry, PT - 06/23/2025 9:06 AM EDT PT Discharge Goal Assessment Problem: PT STG 1 impaired bed mobility Goal: Pt will perform bed mobility with SBA to promote increased functional tasks. Outcome: Met Note: Problem: PT STG 2 impaired transfers Goal: Pt will perform transfers with SBA to promote increased functional ADLs. Outcome: Met Note: Problem: PT LTG 1 impaired bed mobility Goal: Pt will perform bed mobility with Forest to promote increased functional tasks. Outcome: Not Met Note: Problem: PT LTG 2 impaired transfers Goal: Pt will perform transfers with Forest to promote increased functional ADLs. Outcome: Not Met Note: Problem: PT LTG 3 impaired gait Goal: Pt will ambulate 150ft with appropriate device with SBA to promote increased functional household mobility. Outcome: Met Note: Problem: PT LTG 4 education need Goal: Pt/family will voice understanding of discharge instructions, HEP, and safety to promote safetransition home. Outcome: Met Note: * Care Plan - Janell Jack RN - 06/23/2025 8:50 AM EDT The patient is Moderately Stable - Low risk of patient condition declining or worsening The patient's goals for the shift include rest The clinical goals for the shift include safety Over the shift, the patient did not make progress toward the following goals. Barriers to progression include PATIENT TO BE DISCHARGED HOME TODAY. Recommendations to address these barriers include PATIENT TO BE DISCHARGED HOME TODAY. * Care Plan - Janell Jack RN - 06/23/2025 8:50 AM EDT The patient is Moderately Stable - Low risk of patient condition declining or worsening The patient's goals for the shift include rest The clinical goals for the shift include safety Over the shift, the patient did not make progress toward the following goals. Barriers to progression include . Recommendations to address these barriers include . * Care Plan - Saira Nichols RN - 06/22/2025 7:41 PM EDT The patient is Moderately Stable - Low risk of patient condition declining or worsening The patient's goals for the shift include rest The clinical goals for the shift include safety * Respiratory Handoff Note - Brianne Smith RRT - 06/22/2025 3:07 PM EDT Illness Severity Illness Severity: Stable YUMIKO (acute kidney injury) Patient Summary PT is stable on RA. PT is in no distress. Action List/To Do Continue to monitor Situational Awareness Synthesis by Assistant Food Service Director * Care Plan - Saira Nichols RN - 06/21/2025 7:58 PM EDT The patient is Moderately Stable - Low risk of patient condition declining or worsening The patient's goals for the shift include rest The clinical goals for the shift include safety * Care Plan - Lyssa Vazquez - 06/21/2025 11:37 AM EDT The patient is Moderately Stable - Low risk of patient condition declining or worsening The patient's goals for the shift include therapy, safety The clinical goals for the shift include safety, safety * Care Plan - Saira Nichols RN - 06/20/2025 8:48 PM EDT The patient is Moderately Stable - Low risk of patient condition declining or worsening The patient's goals for the shift include rest The clinical goals for the shift include safety * Care Plan - Ezra Saucedo - 06/20/2025 9:48 AM EDT The patient is Moderately Unstable - Medium risk of patient condition declining or worsening The patient's goals for the shift include rest The clinical goals for the shift include patient safety * Individualized Overall Plan of Care Note - Nuvia Johnson MD - 06/20/2025 9:24 AM EDT Physical Medicine and Rehabilitation Individualized Overall Plan of Care Patient Name: Jose Sims Date of : 1960 Sex: female Payor Info: Payor: [employer]ICARE / Plan: [employer] PLANS MEDICARE (MEN[place]) / Product Type:Medicare / Primary Rehab (Etiologic) Diagnosis: Stroke, acute, embolic Admit Date/Time: 06/18/2025 4:26 PM Estimated Length of Stay: 14 days Anticipated Discharge Destination:home The following plan of care has been synthesized from the Preadmission Screening/consults, the Post-Admission Physician Evaluation and the individual therapy assessments. Quality Indicators for this patient include: Physical Therapy Side to Side Assistance Needed: Independent Chair to Bed Transfer Assistance Needed: Physical assistance Physical Assistance Level: 25% or less Supine to Sit Assistance Needed: Physical assistance Physical Assistance Level: 25% or less Sit to Stand Assistance Needed: Physical assistance Physical Assistance Level: 25% or less Transfer to Toilet Assistance Needed: Physical assistance Physical Assistance Level: 25% or less Walk 10 Feet Assistance Needed: Physical assistance Physical Assistance Level: 25% or less Walk 10 Feet Uneven Assistance Needed: Physical assistance Physical Assistance Level: 25% or less Walk 150 Feet Walk 50 Feet (Turn 2) Assistance Needed: Physical assistance Physical Assistance Level: 25% or less 1 Step Assistance Needed: Physical assistance Physical Assistance Level: 26%-50% 12 Steps 4 Steps Occupational Therapy Upper Body Dressing Assistance Needed: Physical assistance Physical Assistance Level: 25% or less Lower Body Dressing Assistance Needed: Physical assistance Physical Assistance Level: 25% or less Eating Assistance Needed: Supervision Physical Assistance Level: No physical assistance Shower/Bathing (Nursing/OT) Assistance Needed: Physical assistance Physical Assistance Level: 25% or less Toileting Hygiene (Nursing/OT) Assistance Needed: Physical assistance Physical Assistance Level: 25% or less Speech Language Pathology BIMS Summary Score: 11 Swallowing/Nutritional Status: Regular food Multi-Disciplinary Problems Active Problems Problem: Pain - Adult Start Date: 06/18/25 Goal Start Date End Date Verbalizes/displays adequate comfort level or baseline comfort level 06/18/25 -- Problem: Safety - Adult Start Date: 06/18/25 Goal Start Date End Date Free from fall injury 06/18/25 -- Problem: Discharge Planning Start Date: 06/18/25 Goal Start Date End Date Discharge to home or other facility with appropriate resources 06/18/25 -- Problem: Chronic Conditions and Co-morbidities Start Date: 06/18/25 Goal Start Date End Date Patient's chronic conditions and co-morbidity symptoms are monitored and maintained or improved 06/18/25 -- Problem: Pain Start Date: 06/19/25 Goal Start Date End Date My pain/discomfort is manageable 06/19/25 -- Goal Details: For Surgery Problem: Safety Start Date: 06/19/25 Goal Start Date End Date Patient will be injury free during hospitalization 06/19/25 -- Goal Details: For surgery care plan Goal Start Date End Date I will remain free of falls 06/19/25 -- Goal Details: Assess and monitor vitals signs, neurological status including level of consciousnessand orientation. Reassess fall risk per hospital policy. Ensure arm band on, uncluttered walking paths in room, adequate room lighting, call light and overbed table within reach, bed in low position, wheels locked, side rails up per policy, and non-skid footwear provided. Goal Intervention Frequency Start Date End Date Offer toileting every 2 hours PRN 06/19/25 -- Goal Intervention Frequency Start Date End Date Visual checks per hospital policy PRN 06/19/25 -- Goal Intervention Frequency Start Date End Date Fall risk identified PRN 06/19/25 -- Goal Intervention Frequency Start Date End Date Room door open PRN 06/19/25 -- Goal Intervention Frequency Start Date End Date Gait belt for transfers PRN 06/19/25 -- Goal Intervention Frequency Start Date End Date Bed/chair alarm turned on PRN 06/19/25 -- Goal Intervention Frequency Start Date End Date Assess and monitor medications that may increase fall risk PRN 06/19/25 -- Intervention Details: benzodiazepines, narcotics, antidepressants, antihypertensives, antipsychotics, antiepileptics, sedatives, hypnotics, and diuretics Goal Intervention Frequency Start Date End Date Collaborate with physical therapy as needed PRN 06/19/25 -- Problem: Daily Care Start Date: 06/19/25 Goal Start Date End Date Daily care needs are met 06/19/25 -- Goal Details: For surgery Problem: Psychosocial Needs Start Date: 06/19/25 Goal Start Date End Date Demonstrates ability to cope with hospitalization/illness 06/19/25 -- Goal Details: For surgery care plan Goal Start Date End Date Collaborate with me, my family, and caregiver to identify my specific goals 06/19/25 -- Goal Details: For surgery care plan Problem: Discharge Barriers Start Date: 06/19/25 Goal Start Date End Date My discharge needs are met 06/19/25 -- Goal Details: For surgery care plan Problem: Resident experiences pain/discomfort Start Date: 06/19/25 Goal Start Date End Date I will maintain an acceptable level of pain 06/19/25 -- Goal Details: INTERVENTIONS 1. Administer pain medication as ordered 2. Offer non-pharmacological pain management interventions Problem: Pain - Adult Start Date: 06/19/25 Goal Start Date End Date Verbalizes/displays adequate comfort level or baseline comfort level 06/19/25 -- Problem: Infection - Adult Start Date: 06/19/25 Goal Start Date End Date Absence of infection at discharge 06/19/25 -- Goal Start Date End Date Absence of infection during hospitalization 06/19/25 -- Goal Start Date End Date Absence of fever/infection during anticipated neutropenic period 06/19/25 -- Problem: Safety - Adult Start Date: 06/19/25 Goal Start Date End Date Free from fall injury 06/19/25 -- Problem: Discharge Planning Start Date: 06/19/25 Goal Start Date End Date Discharge to home or other facility with appropriate resources 06/19/25 -- Problem: Chronic Conditions and Co-morbidities Start Date: 06/19/25 Goal Start Date End Date Patient's chronic conditions and co-morbidity symptoms are monitored and maintained or improved 06/19/25 -- Problem: Safety Start Date: 06/19/25 Goal Start Date End Date LTG - Patient will adhere to hip precautions during ADL's and transfers 06/19/25 -- Goal Start Date End Date LTG - Patient will demonstrate safety requirements appropriate to situation/environment 06/19/25 -- Goal Start Date End Date LTG - Patient will utilize safety techniques 06/19/25 -- Goal Start Date End Date STG - Patient locks brakes on wheelchair 06/19/25 -- Goal Start Date End Date STG - Patient uses call light consistently to request assistance with transfers 06/19/25 -- Goal Start Date End Date STG - Patient uses gait belt during all transfers 06/19/25 -- Problem: Cognitive/Linguistics Start Date: 06/19/25 Goal Start Date End Date LTG - Patient will utilize compensatory intervention for memory and problem- solving to allow for safe completion of daily activities 06/19/25 -- Goal Start Date End Date STG - Patient will participate in further assessment of cognitive-linguistic skills 06/19/25 -- Goal Start Date End Date STG - Patient will complete functional problem-solving tasks for daily situations 06/19/25 -- Goal Start Date End Date STG - Patient will complete simple problem solving tasks 06/19/25 -- Goal Start Date End Date STG - Patient will complete simple calculations for time/money management 06/19/25 -- Goal Start Date End Date STG - Patient will recall memory strategies 06/19/25 -- Goal Start Date End Date STG - Patient will complete thought organization tasks 06/19/25 -- Problem: PT STG 1 impaired bed mobility Start Date: 06/19/25 Goal Start Date End Date Pt will perform bed mobility with SBA to promote increased functional tasks. 06/19/25 -- Problem: PT STG 2 impaired transfers Start Date: 06/19/25 Goal Start Date End Date Pt will perform transfers with SBA to promote increased functional ADLs. 06/19/25 -- Problem: PT STG 3 impaired gait Start Date: 06/19/25 Goal Start Date End Date Pt will ambulate 125ft with appropriate device with CGA to promote increased functional household mobility 06/19/25 -- Problem: PT LTG 1 impaired bed mobility Start Date: 06/19/25 Goal Start Date End Date Pt will perform bed mobility with Forest to promote increased functional tasks. 06/19/25 -- Problem: PT LTG 2 impaired transfers Start Date: 06/19/25 Goal Start Date End Date Pt will perform transfers with Forest to promote increased functional ADLs. 06/19/25 -- Problem: PT LTG 3 impaired gait Start Date: 06/19/25 Goal Start Date End Date Pt will ambulate 150ft with appropriate device with SBA to promote increased functional household mobility. 06/19/25 -- Problem: PT LTG 4 education need Start Date: 06/19/25 Goal Start Date End Date Pt/family will voice understanding of discharge instructions, HEP, and safety to promote safe transition home. 06/19/25 -- Problem: OT STG 1; Impaired Bathing Start Date: 06/19/25 Goal Start Date End Date Pt will complete all parts of LB Bathing ADL tasks with CGA to aid in return home. 06/19/25 -- Problem: OT STG 2; Impaired UB Dressing Start Date: 06/19/25 Goal Start Date End Date Pt will complete all part of Upper Body Dressing tasks with Close Supervision to aid in safe returnhome. 06/19/25 -- Problem: OT STG 3; Impaired LB Dressing Start Date: 06/19/25 Goal Start Date End Date Pt will complete all parts Lower Body Dressing tasks with CGA to aid in safe return home. 06/19/25 -- Problem: OT STG 4; Impaired Toileting Start Date: 06/19/25 Goal Start Date End Date Pt will complete toileting hygiene tasks with CGA to aid in return home. 06/19/25 -- Problem: OT STG 5; Impaired Toileting Transfer Start Date: 06/19/25 Goal Start Date End Date Pt will require CGA with toileting transfers using least restrictive device as needed to aid in safe return home. 06/19/25 -- Problem: OT LTG 1; Impaired Feeding Start Date: 06/19/25 Goal Start Date End Date Pt will require Modified Independent with feeding tasks to aid in safe return home. 06/19/25 -- Problem: OT LTG 2; Impaired Grooming Start Date: 06/19/25 Goal Start Date End Date Pt will complete Grooming self-care tasks with Modified Independent to aid in safe return home. 06/19/25 -- Problem: OT LTG 3; Impaired Bathing Start Date: 06/19/25 Goal Start Date End Date Pt will complete all parts of Bathing ADL tasks with SBA to aid in return home. 06/19/25 -- Problem: OT LTG 4; Impaired Toileting Start Date: 06/19/25 Goal Start Date End Date Pt will complete toileting hygiene tasks with SBA to aid in return home. 06/19/25 -- Problem: OT LTG 5; Impaired HEP Start Date: 06/19/25 Goal Start Date End Date Pt will be educated on and verbalize and demonstrate understanding of HEP to promote increased strength to facilitate increased independence and safety with ADLs and functional transfers. 06/19/25 -- Medical Prognosis The patient's medical prognosis is good to achieve the stated goals below. Anticipated Interventions The patient will undergo inpatient rehabilitation to manage complex medical and rehabilitation needs related to Stroke, acute, embolic. The patient will receive interdisciplinary care, including daily rehabilitation physician management for the following: Monitoring for medication side effects, Nutrition, and platelet count The patient will benefit from continued services by: PT for 90 minutes per day for 5 days per week for 2-3 weeks, OT for 90 minutes per day for 5 days per week for 2-3 weeks, and MACHINE [employer] P[employer]ER for 30 minutes per day for 5 days per week for 2-3 weeks Expected Functional Outcomes: Mobility: Supervision to modified independent Self Care: Supervision to modified independent Cognition: Independent Communication: Independent Patient goals were discussed and agreed upon with the patient. I have reviewed the therapy notes and agree with the current plan of care. Nuvia Johnson MD 06/20/2025 9:24 AM * Care Plan - Vidhi Us RN - 06/19/2025 7:56 PM EDT The patient is Moderately Unstable - Medium risk of patient condition declining or worsening The patient's goals for the shift include rest The clinical goals for the shift include safety Over the shift, the patient did not make progress toward the following goals. Barriers to progression include weakness, control pain. Recommendations to address these barriers include pain management, participate in therapy as ordered. * Care Plan - Blayne Pope, MARINA - 06/19/2025 1:15 PM EDT PHYSICAL THERAPY GOALS EVALUATION Problem: PT STG 1 impaired bed mobility Goal: Pt will perform bed mobility with SBA to promote increased functional tasks. Outcome: Progressing Note: Problem: PT STG 2 impaired transfers Goal: Pt will perform transfers with SBA to promote increased functional ADLs. Outcome: Progressing Note: Problem: PT STG 3 impaired gait Goal: Pt will ambulate 125ft with appropriate device with CGA to promote increased functional household mobility Outcome: Progressing Note: Problem: PT LTG 1 impaired bed mobility Goal: Pt will perform bed mobility with Forest to promote increased functional tasks. Outcome: Progressing Note: Problem: PT LTG 2 impaired transfers Goal: Pt will perform transfers with Forest to promote increased functional ADLs. Outcome: Progressing Note: Problem: PT LTG 3 impaired gait Goal: Pt will ambulate 150ft with appropriate device with SBA to promote increased functional household mobility. Outcome: Progressing Note: Problem: PT LTG 4 education need Goal: Pt/family will voice understanding of discharge instructions, HEP, and safety to promote safetransition home. Outcome: Progressing Note: * Case Management - Emily Dong - 06/19/2025 1:11 PM EDT 06/19/25 1300 Discharge Planning Living Arrangements Alone Support Systems Children Assistance Needed YES Type of Residence Private residence Do you have animals or pets at home? Yes Type of Animals or Pets CAT DOG HORSE Who is requesting discharge planning? Provider Home or Post Acute Services In home services Patient expects to be discharged to: HOME Does the patient need discharge transport arranged? No * Care Plan - Mira Coon - 06/19/2025 11:06 AM EDT The patient is Moderately Stable - Low risk of patient condition declining or worsening The patient's goals for the shift include rest The clinical goals for the shift include patient safety * Care Plan - Cait Acuna CCC-MACHINE PECAN PICKER - 06/19/2025 9:30 AM EDT Upon admit, Ms. Sims's MMSE 22/30 revealing receptive language deficits including functional memory, problem solving, and reasoning. Expressive language/speech production/voice are WFL. She is currently tolerating na regular/thin liquid PO diet. Skilled ST services are warranted to improve overallcognition. * Care Plan - Fredo Benjamin OT Student - 06/19/2025 8:15 AM EDT Problem: OT STG 1; Impaired Bathing Goal: Pt will complete all parts of LB Bathing ADL tasks with CGA to aid in return home. Outcome: Progressing Note: Problem: OT STG 2; Impaired UB Dressing Goal: Pt will complete all part of Upper Body Dressing tasks with Close Supervision to aid in safe return home. Outcome: Progressing Note: Problem: OT STG 3; Impaired LB Dressing Goal: Pt will complete all parts Lower Body Dressing tasks with CGA to aid in safe return home. Outcome: Progressing Note: Problem: OT STG 4; Impaired Toileting Goal: Pt will complete toileting hygiene tasks with CGA to aid in return home. Outcome: Progressing Note: Problem: OT STG 5; Impaired Toileting Transfer Goal: Pt will require CGA with toileting transfers using least restrictive device as needed to aid in safe return home. Outcome: Progressing Note: Problem: OT LTG 1; Impaired Feeding Goal: Pt will require Modified Independent with feeding tasks to aid in safe return home. Outcome: Progressing Note: Problem: OT LTG 2; Impaired Grooming Goal: Pt will complete Grooming self-care tasks with Modified Independent to aid in safe return home. Outcome: Progressing Note: Problem: OT LTG 3; Impaired Bathing Goal: Pt will complete all parts of Bathing ADL tasks with SBA to aid in return home. Outcome: Progressing Note: Problem: OT LTG 4; Impaired Toileting Goal: Pt will complete toileting hygiene tasks with SBA to aid in return home. Outcome: Progressing Note: Problem: OT LTG 5; Impaired HEP Goal: Pt will be educated on and verbalize and demonstrate understanding of HEP to promote increased strength to facilitate increased independence and safety with ADLs and functional transfers. Outcome: Progressing Note: Cosigned by ANDRES Cazares/Anita at 06/19/2025 6:33 PM EDT Associated attestation - Ayesha Goodson OTR/Anita - 06/19/2025 6:33 PM EDT OT was present and assisted during OT treatment session. OT has read and agrees with documentation completed by OT studentFredo. * Care Plan - Vidhi Us RN - 06/19/2025 12:41 AM EDT The patient is Moderately Unstable - Medium risk of patient condition declining or worsening The patient's goals for the shift include rest The clinical goals for the shift include pain and safety mangement Over the shift, the patient did not make progress toward the following goals. Barriers to progression include weakness, control pain. Recommendations to address these barriers include pain management, participate in therapy as ordered. * Care Plan - Jenni Jenkins - 06/18/2025 5:07 PM EDT The patient is Moderately Stable - Low risk of patient condition declining or worsening The patient's goals for the shift include The clinical goals for the shift include * Drug Regimen Review - Yazan Vazquez LPN - 06/18/2025 4:53 PM EDT Jose Sims is a 64 y.o. female. No issues found during admission drug review. Current Facility-Administered Medications Medication Dose Route Frequency Provider Last Rate Last Admin acetaminophen (Tylenol) tablet 650 mg 650 mg Oral q6h PRN Nuvia Johnson MD aluminum & magnesium hydroxide-simethicone (Mylanta) 200-200-20 MG/5ML oral suspension 20 mL 20mL Oral q4h PRN Nuvia Johnson MD atorvastatin (Lipitor) tablet 80 mg 80 mg Oral Nightly Nuvia Johnson MD bisacodyl (Dulcolax) suppository 10 mg 10 mg Rectal Daily PRN Nuvia Johnson MD [Held by provider] bumetanide (Bumex) tablet 2 mg 2 mg Oral BID Nuvia Johnson MD carvedilol (Coreg) tablet 12.5 mg 12.5 mg Oral BID with meals Nuvia Johnson MD cyancobalamin (Vitamin B-12) tablet 500 mcg 500 mcg Oral Daily Nuvia Johnson MD cyclobenzaprine (Flexeril) tablet 10 mg 10 mg Oral Nightly Nuvia Johnson MD glucose chewable tablet 12-16 g 12-16 g Oral q15 min PRN Nuvia Johnson MD Or glucose (Glutose) 40 % oral gel 15 g 15 g Oral q15 min PRN Nuvia Johnson MD Or dextrose 50 % solution 12.5-25 g 12.5-25 g Intravenous q15 min PRN Nuvia Johnson MD diphenoxylate-atropine (Lomotil) 2.5-0.025 MG per tablet 1 tablet 1 tablet Oral 4x daily PRN MD Hardeep [START ON 06/19/2025] DULoxetine (Cymbalta) DR capsule 60 mg 60 mg Oral q AM Nuvia Johnson MD empagliflozin (Jardiance) tablet 10 mg 10 mg Oral Daily Nuvia Johnson MD folic acid (Folvite) tablet 1 mg 1 mg Oral Daily Nuvia Johnson MD gabapentin (Neurontin) capsule 400 mg 400 mg Oral BID Nuvia Johnson MD Glucagon Emergency injection kit 1 mg 1 mg Intramuscular PRN Nuvia Johnson MD insulin lispro (HumaLOG) injection 0-5 Units 0-5 Units Subcutaneous Before meals & nightly Nuvia Johnson MD ipratropium-albuterol (Duo-Neb) 0.5-2.5 mg/3 mL nebulizer solution 3 mL 3 mL Nebulization 4x daily Nuvia Johnson MD isosorbide mononitrate tablet 20 mg 20 mg Oral BID Nuvia Johnson MD magnesium hydroxide (Milk of Magnesia) 400 MG/5ML suspension 20 mL 20 mL Oral q8h PRN Nuvia Johnson MD metFORMIN (Glucophage) tablet 500 mg 500 mg Oral BID with meals MD rachid Apodaca nasal spa receptionist popswab 1 application. 1 application. Nasal Once MD rachid Apodaca nasal spa receptionist popswab 1 application. 1 application. Nasal q12h KALEY Nuvia Johnson MD ondansetron (Zofran) tablet 4 mg 4 mg Oral q6h PRN Nuvia Johnson MD Or ondansetron (Zofran) injection 4 mg 4 mg Intravenous q6h PRN Nuvia Johnson MD [START ON 06/19/2025] pantoprazole (ProtoNix) EC tablet 40 mg 40 mg Oral Daily before breakfast Nuvia Johnson MD potassium chloride CR (Klor-Con M20) ER tablet 20 mEq 20 mEq Oral Daily Nuvia Johnson MD valproic acid (Depakene) oral liquid 250 mg 250 mg Oral q8h [facility] Nuvia Johnson MD * Preadmission Screening Note - Mark Joseph RN - 06/18/2025 10:59 AM EDT Physical Medicine and Rehabilitation Preadmission Screening Rehab Physician's Review and Admission Determination: Jose Sims is a 64 y.o. female who needs acute inpatient rehabilitation in order to achieve thefunctional goals outlined below. She requires close rehabilitation physician monitoring and management due to her complex medical conditions and co-morbidities with the primary indication of: Rehab Admission Indication: Stroke: Stroke: 0001.1 Left Body Involvement (Right Brain). Comorbid conditionsthat will impact course of rehabilitation: Comorbid Conditions in addition to those listed above DC, PE, DVT, CAD, HTN, PVD, RLS, CKD, PNA, AFIB, RUPTURED AAA, LUNG CANCER, SEPSIS, PHLEBITIS, CHRONICHYPERCAPNIC RESPIRATORY FAILURE. She requires 24-hour rehabilitation nursing to manage bowel and bladder function, nutrition and fluid intake, pain control, safety, medication management, and patient/family goals. In addition, rehabilitation nursing will reiterate and reinforce therapy skills and equipment use, including ADLs, as well as provide education to the patient and family. Jose Simsis willing to participate in and is able to tolerate the proposed plan of care. Medical Diagnosis: CVA, YUMIKO, EPISTAXIS, MYOCLONUS Rehab Diagnosis: STROKE Probable Impairment Group Code: 01.1 Demographics: Date of : 1960 SSN: [id number] Race: Address: [address] [place] [address] [place] [address]ERY Contact Information: yariel ordonez Daughter Clyde Juan Brother Primary Contact Name: YARIEL ORDONEZ Primary Contact Relationship: DAUGHTER Secondary Contact Name/Relationship: NA Guardian/Power of Sales Representative Sales Manager: NO Past Medical History: Past Medical History: Diagnosis Date Atrial fibrillation 11/03/2022 Chronic hypercapnic respiratory failure Chronic kidney disease Clostridioides difficile infection H/O Coronary artery disease DVT (deep venous thrombosis) 2016 History of transfusion Hypertension residential (current) use of anticoagulants Lung cancer with mets to the brain Myocardial infarction Phlebitis and thrombophlebitis of unspecified site Pneumonia 05/15/2025 Pulmonary embolism 2024 PVD (peripheral vascular disease) (HCC) RLS (restless legs syndrome) Ruptured abdominal aortic aneurysm Sepsis due to pneumonia 05/15/2025 SEE ABOVE Prior Surgery: Past Surgical History: Procedure Laterality Date BRAIN TUMOR EXCISION 11/[address] CHEST ANGIOGRAM W AND/OR WO IV CONTRAST 01/10/2025 CT CHEST ANGIOGRAM W AND/OR WO IV CONTRAST 01/10/[address] [address] CT CHEST ANGIOGRAM W AND/OR WO IV CONTRAST 03/19/2025 CT CHEST ANGIOGRAM W AND/OR WO IV CONTRAST 03/19/[address] [facility] [address] CHEST ANGIOGRAM W AND/OR WO IV CONTRAST 05/15/2025 CT CHEST ANGIOGRAM W AND/OR WO IV CONTRAST 05/15/[address] HEAD ANGIO 04/24/2024 CT HEAD ANGIO 04/24/[address] [facility] [address] HEAD ANGIO 02/28/2025 CT HEAD ANGIO 02/28/[address] HEAD ANGIO 06/13/2025 CT HEAD ANGIO 06/13/[address] NECK ANGIO 04/24/2024 CT NECK ANGIO 04/24/[address] NECK ANGIO 02/28/2025 CT NECK ANGIO 02/28/[address] NECK ANGIO 06/13/2025 CT NECK ANGIO 06/13/[address] IR INTERVENTION FILTER PLACEMENT 03/31/2025 IR INTERVENTION FILTER PLACEMENT 03/31/2025 [facility] IR MEDIPORT INSERTION, SINGLE 11/24/2022 SEE ABOVE Has the patient had major surgery during the 100 days prior to admission? No Falls: Has the patient had two or more falls in the past year or any fall with injury in the past year?Yes, describe: >2 Prior Level of Function: INDEPENDENT WITH WALKER AND/OR WHEELCHAIR Social History: Marital Status: not reports that she has been smoking cigarettes. She started smoking about7 months ago. She has a 15.2 pack-year smoking history. She has been exposed to tobacco smoke. She has never used smokeless tobacco. She reports that she does not drink alcohol and does not use drugs. Children: 1 Employment Status: UNK Recreational Activities/Hobbies: UNK Substance Use History: reports no history of drug use. Tobacco Prior Living Situation: LIVES ALONE IN SINGLE LEVEL HOME WITH 5 STEPS Primary Language: Swedish Preferred Language: Swedish Hand Dominance: Right The following information was gathered for consideration and maintenance in the medical record to substantiate medical necessity for an IRF level of care. Patient is currently at 722. The patient is being referred and recommended by their physician, JUAN CARLOS, to be assessed both medically and functionally in regard to their premorbid functional capacity to determine whether they can benefit from a rehabilitation level of care offered by our facility. Acute Medical Conditions: does not have any pertinent problems on file. History of Present Illness: ADMITTED 06/12/25 SECONDARY TO FALL AND HER ARM JERKING. MRI OF BRAIN CONFIRMED SEVERAL TINY ACUTE LACUNAR INFARCTS INCLUDING RIGHT CEREBELLUM, RIGHT OCCIPITAL LOBE, RIGHTPOSTERIOR FRONTAL-PARIETAL WHITE MATTER. ADDITIONALLY ON MRI SMALL AREA OF ILL-DEFINED ENHANCEMENT WITHOUT SIGNIFICANT MASS EFFECT RIGHT PARIETAL LOBE SUBCORTICAL REGION SUGGESTIVE OF POSSIBLE ARE OFSUBACUTE SUBCORTICAL INFARCTION RATHER THAN METASTATIC LESION. CURRENTLY PATIENT IS TOLERATING PO DIET AND WORKING WITH THERAPY REQUIRING MINIMAL ASSISTANCE FOR TRANSFERS AND AMBULATION OF 75'. Date of Onset: 06/12/25 Date Admitted to Acute: 06/12/25 Current Precautions: HRF Food Allergies: NA Medication Allergies: Allergies Allergen Reactions Cephalexin Ciprofloxacin Caused c-diff Other Allergies: NA Present Systems Summary: Temp: 99 ??F (37.2 ??C) Heart Rate: 93 Resp: 12 BP: 129/68 SpO2: 94 % Height: 4' 10 (147.3 cm) Weight: 126 lb (57.2 kg) Diet: REGULAR Hearing: NO ISSUES Vision: NO ISSUES Bladder: CONTINENT Bowel: CONTINENT Date of Last Bowel Movement: UNK Integumentary: NO ISSUES DOCUMENTED Cardiopulmonary: MONITOR Dialysis: NO Current Medication(s): No current facility-administered medications for this encounter. No current outpatient medications on file. Facility-Administered Medications Ordered in Other Encounters Medication Dose Route Frequency Provider Last Rate Last Admin acetaminophen (Tylenol) tablet 650 mg 650 mg Oral q6h PRN Yaw Harvey MD aluminum & magnesium hydroxide-simethicone (Mylanta) 200-200-20 MG/5ML oral suspension 30 mL 30mL Oral q4h PRN Yaw Harvye MD [Held by provider] aspirin chewable tablet 81 mg 81 mg Oral Daily Dennis Mata DO Or [Held by provider] aspirin chewable tablet 81 mg 81 mg Nasogastric Daily Dennis Mata DO Or [Held by provider] aspirin suppository 300 mg 300 mg Rectal Daily Dennis Mata DO atorvastatin (Lipitor) tablet 80 mg 80 mg Oral Nightly Dennis Niall Mata DO 80 mg at 06/17/25 224 [Held by provider] bumetanide (Bumex) tablet 2 mg 2 mg Oral BID Yaw Harvey MD carvedilol (Coreg) tablet 12.5 mg 12.5 mg Oral BID with meals Yaw Harvey MD 12.5 mg at [Held by provider] cyancobalamin (Vitamin B-12) tablet 500 mcg 500 mcg Oral Daily Yaw Harvey MD cyclobenzaprine (Flexeril) tablet 10 mg 10 mg Oral Nightly Yaw Harvey MD 10 mg at 06/17/25 224 glucose chewable tablet 12-16 g 12-16 g Oral q15 min PRN Yaw Harvey MD Or glucose (Glutose) 40 % oral gel 15 g 15 g Oral q15 min PRN Yaw Harvey MD Or dextrose 50 % solution 12.5-25 g 12.5-25 g Intravenous q15 min PRN Yaw Harvey MD diphenoxylate-atropine (Lomotil) 2.5-0.025 MG per tablet 1 tablet 1 tablet Oral 4x daily PRN Yaw Harvey MD DULoxetine (Cymbalta) DR capsule 60 mg 60 mg Oral q AM Yaw HJade Harvey MD 60 mg at 06/17/25 1015 [Held by provider] folic acid (Folvite) tablet 1 mg 1 mg Oral Daily Yaw Harvey MD gabapentin (Neurontin) capsule 800 mg 800 mg Oral BID Yaw Harvey MD 800 mg at 06/18/25 0941 Glucagon Emergency injection kit 1 mg 1 mg Intramuscular PRN Yaw Harvey MD guaiFENesin (Mucinex) 12 hr tablet 1,200 mg 1,200 mg Oral Daily Yaw Harvey MD 1,200 mg at 06/17/25 1015 hydrALAZINE (Apresoline) injection 10 mg 10 mg Intravenous q4h PRN Yaw Jade Harvey MD ipratropium-albuterol (Duo-Neb) 0.5-2.5 mg/3 mL nebulizer solution 3 mL 3 mL Nebulization q6h PRN Yaw H. MD Wes 3 mL at 06/17/25 1537 isosorbide mononitrate tablet 20 mg 20 mg Oral BID Yaw Harvey MD 20 mg at 06/18/25 0941 labetalol (Normodyne,Trandate) injection 10 mg 10 mg Intravenous q15 min PRN Dennis Mata DO [Held by provider] metFORMIN (Glucophage) tablet 500 mg 500 mg Oral BID with meals Yaw Harvey MD morphine PF 2 mg 2 mg Intravenous q4h PRN Yaw Harvey MD 2 mg at 06/16/25 2241 nozin nasal spa receptionist popswab 1 application. 1 application. Nasal q12h KALEY Dennis Mata DO 1 application. at 06/18/25 0940 ondansetron (Zofran) injection 4 mg 4 mg Intravenous q4h PRN Yaw Harvey MD 4 mg at 06/16/25 2241 ondansetron (Zofran) tablet 8 mg 8 mg Oral q8h PRN Yaw Harvey MD 8 mg at 06/15/25 2238 pantoprazole (ProtoNix) EC tablet 40 mg 40 mg Oral Daily before breakfast Yaw HJade Harvey MD 40 mg at 06/18/25 0537 [Held by provider] potassium chloride CR (Klor-Con M20) ER tablet 20 mEq 20 mEq Oral Daily Yaw HJade Harvey MD prochlorperazine (Compazine) injection 5 mg 5 mg Injection q6h PRN Bri Milan, BATTERY ASSEMBLER DRY CELL 5 mg at 06/17/25 0207 [Held by provider] sodium chloride 0.9 % infusion 50 mL/hr Intravenous Continuous Yaw Harvey, MDStopped at 06/13/25 1909 sodium chloride 0.9 % iv solution 250 mL 250 mL Intravenous Once Rachel Soriano MD sodium chloride 0.9 % iv solution 250 mL 250 mL Intravenous Once Rachel Soriano MD valproic acid (Depakene) oral liquid 250 mg 250 mg Oral q8h KALEY Patience Maldonadoier, BATTERY ASSEMBLER DRY CELL 250 mg at 06/18/25 0537 Current Alcohol Use: NO Current Tobacco Use: YES Current Drug Use: NO Pain: CONTROLLED Additional medical documentation contributing to the expected care of this patient may be noted in the following areas: Laboratory-Chemistry: Lab Results Component Value Date GLUCOSE 118 (H) 06/18/2025 CALCIUM 8.2 06/18/2025 NA 140 06/18/2025 K 3.3 06/18/2025 CO2 28 06/18/2025 CL 103 06/18/2025 BUN 10 06/18/2025 CREATININE 0.71 06/18/2025 NA Hematology: Lab Results Component Value Date WBC 7.4 06/18/2025 HGB 10.6 (L) 06/18/2025 HCT 31.1 (L) 06/18/2025 MCV 92.4 06/18/2025 PLT 16 (LL) 06/18/2025 Lab Results Component Value Date HGBA1C 5.5 06/13/2025 PT 13.6 (H) 06/13/2025 INR 1.20 (H) 06/13/2025 NA Cultures: NA Radiology: === 06/12/25 === XR CHEST 1 VIEW - Impression - Patchy groundglass infiltrates in the right mid and lower lung field and left base. Persistent cavitary lesion right base. Electronically signed by: Sergo Rushing MD 06/13/2025 09:34 AM EDT RP === 06/12/25 === CT NECK ANGIO - Impression - No evidence of significant internal carotid artery stenosis. Electronically signed by: Don Cabrera MD 06/13/2025 11:14 AM EDT RP NA IVs: MEDI-PORT, PIV Is patient presently participating in rehabilitation? Yes Adjustment to Present Illness: Patient is coping adequately., Patient is accepting limitations adequately., Patient's expectations are realistic., and Patient is motivated. Family expectations and/or coping and/or goal(s) as follows: REGAIN MORE STRENGTH AND INDEPENDENCE BEFORE GOING HOME Activity Tolerance: GOOD Special Needs: HRF PRECAUTIONS, PAIN CONTROL Current Functional Status: Eatin Oral hygiene: 3 Toiletin Bathin Upper body dressin Lower body dressin-3 Bed Mobility: 4 Transfers: 4 Bladder and Bowel: 3 Cognition: 5 Communication: 5 Patient is able to understand make healthcare decisions: Yes Coverage Information: Payor Source: Level of care will be discussed with the following payor sources if/when applicable. Primary: MEDICARE ADVANTAGE Policy Number: [id number] Contact/Phone Number: NA Authorization #: [id number] Secondary Insurance Type: [place] [id number] Information and Case Discussion: Rehabilitation risks/benefits were reviewed on date/time 06/18/25 1050A. Patient/family/caregiver agrees to/accepts rehabilitation risks/benefits on date/time 06/18/25 1050A. Rehab literature/brochure was provided to DAUGHTER on date/time 06/18/25 1050A. Physician/Biomass Plant Manager that the patient was/will be discussed with DR JOHNSON on date/time06/18/25 1040A. Rehabilitation Goals and Plan: Estimated date of admission to acute inpatient rehabilitation unit/facility: 06/18/25 Goals for admission: RETURN HOME WITH SUPERVISION ONLY REQUIRED FOR ADL'S AND MOBILITY Likelihood of reaching these goals: very good. Therapy treatments needed to achieve these goals: physical therapy, occupational therapy, speech therapy, social worker clinical, nursing, and aide. Barriers to achieving these goals: Pain, Decreased endurance, Upper extremity weakness, Lower extremity weakness, Long standing deficits, Stairs at home, and Medication managment Expected length of stay: 10-14 day(s) When medically stable, anticipated discharge disposition: home The potential to achieve that is very good. IRF Admission Approval/Non-Approval: Appropriateness for admission to the Inpatient Rehabilitation Facility: The patient's condition is sufficiently stable to allow active participation in an intensive interdisciplinary inpatient rehabilitation program. The patient's condition is sufficiently stable to allow active participation in an intensive interdisciplinary inpatient rehabilitation program. The interdisciplinary team will also manage potential risks and complications from the following comorbid conditions: Comorbid Conditions in addition to those listed above YUMIKO, EPISTAXIS The recommended interdisciplinary team will be comprised of the following services: Medical Supervision, 24 Hour Rehabilitation Nursing, Physical Therapy, Occupational Therapy, Respiratory Therapy, Speech Language Pathology, and THEATER EDUCATION TEACHER The patient's expected intensity and frequency of participation in the interdisciplinary rehabilitation program is 3 hours of therapy 5 days/week. Anticipated services at discharge: Home Health Cosigned by Nuvia Johnson MD at 06/18/2025 12:54 PM EDT Associated attestation - Nuvia Johnson MD - 06/18/2025 12:54 PM EDT Patient is a 64-year-old female with history of stage IV metastatic non-small cell carcinoma brought to [facility] after a fall. Patient underwent MRI, neurology evaluation, was found to have multiple acute lacunar infarctions in the right cerebellum, right occipital lobe, right posterior frontal parietal white matter, another small area of ill-defined enhancement without significant mass effect on the right parietal lobe subcortical region. She is DNR/DNI. She is evaluated by PT and OT, deemed appropriate for acute inpatient rehabilitation, currently requiring min assist for transfers and ambulation of 75 feet. Of note her platelet count has been stable, currently at 16, transfuse for less than 10 or 50 if bleeding I reviewed preadmission screen, concur with findings. Patient is expected to participate in at least three hours a day for five days or fifteen hours a week of physical therapy, occupational therapy,and/or speech therapy. documented in this encounter Plan of Treatment Upcoming Encounters Date Type Department Care Team (Late st Contact Info) Description 08/27/2025 8:45 AM EDT Office Visit [facility] [address] [place] [address] Rachel Pagan MD [address] [place] [address] 08/28/2025 1:00 PM EDT Office Visit [facility] [address] [place] [phone] Yazan Castro, SOHAM [address] [facility] A[place]a [place] [phone] 08/29/2025 10:30 AM EDT Appointment [facility] [address] [place] [phone] 09/06/2025 1:45 PM EDT Appointment [facility] [address] [place] [phone] 09/12/2025 9:30 AM EDT Appointment [facility] D [address], [facility] [place] [phone] 09/28/2025 9:30 AM EST Office Visit [facility] [address] [place] [address] Ky Jewell MD [address] [place], [place] [phone] 11/05/2025 2:45 PM EST Office Visit [facility] [address] [place] [phone] Ruddy Mayes MD [address] [place] [phone] 12/31/2025 11:30 AM EST Office Visit [facility] [address] [place] [id number] 01/22/2026 9:00 AM EDT Office Visit [facility] [address] [place] [phone] Allyn Toribio NP [address] [place] [address] Scheduled Orders Name Type Priority Associated Diagnoses Orde r Schedule CBC auto differential Lab Routine Thrombocytopenia Expected: 06/22/2025 (Approximate), Expires: 06/22/2026 documented as of this encounter Goals Goal Patient Goal Type Associated Problems Recent Progress Patient-Stated? Author Patient's support system will participate in treatment General Emily Ny documented as of this encounter Procedures Procedure Name Priority Date/Time Associated Diagnosis Comments POCT GLUCOSE PERFORMABLE Routine 06/23/2025 6:09 AM EDT POCT GLUCOSE PERFORMABLE Routine 06/22/2025 9:31 PM EDT POCT GLUCOSE PERFORMABLE Routine 06/22/2025 5:35 PM EDT POCT GLUCOSE PERFORMABLE Routine 06/22/2025 11:32 AM EDT OXYGEN THERAPY Routine 06/22/2025 8:00 AM EDT POCT GLUCOSE PERFORMABLE Routine 06/22/2025 7:35 AM EDT PLATELET COUNT Routine 06/22/2025 3:12 AM EDT POCT GLUCOSE PERFORMABLE Routine 06/21/2025 9:32 PM EDT OXYGEN THERAPY Routine 06/21/2025 8:00 PM EDT POCT GLUCOSE PERFORMABLE Routine 06/21/2025 4:21 PM EDT POCT GLUCOSE PERFORMABLE Routine 06/21/2025 10:47 AM EDT OXYGEN THERAPY Routine 06/21/2025 8:00 AM EDT PLATELET COUNT Routine 06/21/2025 5:46 AM EDT POTASSIUM Routine 06/21/2025 5:46 AM EDT PHOSPHORUS Routine 06/21/2025 5:46 AM EDT MAGNESIUM Routine 06/21/2025 5:46 AM EDT POCT GLUCOSE PERFORMABLE Routine 06/21/2025 5:45 AM EDT POCT GLUCOSE PERFORMABLE Routine 06/20/2025 8:30 PM EDT OXYGEN THERAPY Routine 06/20/2025 8:00 PM EDT POCT GLUCOSE PERFORMABLE Routine 06/20/2025 2:44 PM EDT POCT GLUCOSE PERFORMABLE Routine 06/20/2025 10:34 AM EDT OXYGEN THERAPY Routine 06/20/2025 8:00 AM EDT POTASSIUM Routine 06/20/2025 5:58 AM EDT MAGNESIUM Routine 06/20/2025 5:58 AM EDT MANUAL DIFF (REMISOL) Routine 06/20/2025 5:57 AM EDT CBC WITH AUTO DIFFERENTIAL Routine 06/20/2025 5:57 AM EDT POCT GLUCOSE PERFORMABLE Routine 06/20/2025 5:55 AM EDT POCT GLUCOSE PERFORMABLE Routine 06/19/2025 9:47 PM EDT OXYGEN THERAPY Routine 06/19/2025 8:00 PM EDT POCT GLUCOSE PERFORMABLE Routine 06/19/2025 3:49 PM EDT POCT GLUCOSE PERFORMABLE Routine 06/19/2025 11:54 AM EDT OXYGEN THERAPY Routine 06/19/2025 8:00 AM EDT POCT GLUCOSE PERFORMABLE Routine 06/19/2025 6:12 AM EDT MANUAL DIFF (REMISOL) Routine 06/19/2025 5:54 AM EDT CBC WITH AUTO DIFFERENTIAL Routine 06/19/2025 5:54 AM EDT PHOSPHORUS Routine 06/19/2025 5:54 AM EDT MAGNESIUM Routine 06/19/2025 5:54 AM EDT BASIC METABOLIC PANEL Routine 06/19/2025 5:54 AM EDT POCT GLUCOSE PERFORMABLE Routine 06/18/2025 10:13 PM EDT OXYGEN THERAPY Routine 06/18/2025 8:00 PM EDT POCT GLUCOSE PERFORMABLE Routine 06/18/2025 6:02 PM EDT OXYGEN THERAPY Routine 06/18/2025 4:27 PM EDT OXYGEN THERAPY Routine 06/18/2025 4:27 PM EDT OXYGEN THERAPY Routine 06/18/2025 4:27 PM EDT documented in this encounter Results * POCT glucose (06/23/2025 6:09 AM EDT) Glucose 92 70 - 110 mg/dL 06/23/2025 6:09 AM EDT [facility] Comment:No Action Charge Nurse Name Saira Nichols RN 06/23/2025 6:09 AM EDT [facility] Charge Nurse ID [id number] 06/23/2025 6:09 AM EDT [facility] Blood Capillary blood specimen / Unknown 06/23/2025 6:09 AM EDT 06/23/2025 6:09 AM EDT Nuvia Johnson MD LAB POINT OF CARE TEST DOCKED DEVICE UNSOLICITED RESULTS Final Result [facility] [address] [place] [address], * POCT glucose (06/22/2025 9:31 PM EDT) Glucose 101 70 - 110 mg/dL 06/22/2025 9:31 PM EDT [facility] Comment:No Action Charge Nurse Name Saira Nichols RN 06/22/2025 9:31 PM EDT [facility] Charge Nurse ID [id number] 06/22/2025 9:31 PM EDT [facility] Blood Capillary blood specimen / Unknown 06/22/2025 9:31 PM EDT 06/22/2025 9:31 PM EDT Nuvia Johnson MD LAB POINT OF CARE TEST DOCKED DEVICE UNSOLICITED RESULTS Final Result Performing Organization Address [facility]/ZIP Co de Phone Number [facility] [address] [place] [address], * (ABNORMAL) POCT glucose (06/22/2025 5:35 PM EDT) Glucose 112(H) 70 - 110 mg/dL 06/22/2025 5:36 PM EDT [facility] Comment:Notified PCP Charge Nurse Name Alicia Mendez PEDRO LUIS 06/22/2025 5:36 PM EDT [facility] Charge Nurse ID [id number] 06/22/2025 5:36 PM EDT [facility] Blood Capillary blood specimen / Unknown 06/22/2025 5:35 PM EDT 06/22/2025 5:36 PM EDT us Nuvia Johnson MD LAB POINT OF CARE TEST DOCKED DEVICE UNSOLICITED RESULTS Final Result Performing Organization Address City/[facility]/ZIP Co de Phone Number [facility] [address] [place] [address], [place] [phone] * POCT glucose (06/22/2025 11:32 AM EDT) Glucose 82 70 - 110 mg/dL 06/22/2025 11:33 AM EDT [facility] Comment:Notified PCP Charge Nurse Name Alicia Mendez PEDRO LUIS 06/22/2025 11:33 AM EDT [facility] Charge Nurse ID [id number] 06/22/2025 11:33 AM EDT [facility] Blood Capillary blood specimen / Unknown 06/22/2025 11:32 AM EDT 06/22/2025 11:33 AM EDT us Nuvia Johnson MD LAB POINT OF CARE TEST DOCKED DEVICE UNSOLICITED RESULTS Final Result Performing Organization Address City/[facility]/ZIP Co de Phone Number [facility] [address] [place] [address], * POCT glucose (06/22/2025 7:35 AM EDT) Glucose 94 70 - 110 mg/dL 06/22/2025 7:36 AM EDT [facility] Comment:No Action Charge Nurse Name Saira Whiteheadjoey MONTILLA 06/22/2025 7:36 AM EDT [facility] Charge Nurse ID [id number] 06/22/2025 7:36 AM EDT [facility] Blood Capillary blood specimen / Unknown 06/22/2025 7:35 AM EDT 06/22/2025 7:36 AM EDT us Nuvia Johnson MD LAB POINT OF CARE TEST DOCKED DEVICE UNSOLICITED RESULTS Final Result Performing Organization Address [facility]/ZIP Co de Phone Number [facility] [address] [place] [address], * (ABNORMAL) Platelet count (06/22/2025 3:12 AM EDT) Platelets 15(LL) 138 - 402 10*3/uL 06/22/2025 3:39 AM EDT [facility] Blood Venous blood specimen / Unknown Existing Catheter / Unknown 06/22/2025 3:12 AM EDT 06/22/2025 3:31 AM EDT us Nuvia Johnson MD LAB BLOOD ORDERABLES Millie l Result [facility] [address] [place] [address], [place] [phone] * POCT glucose (06/21/2025 9:32 PM EDT) Glucose 92 70 - 110 mg/dL 06/21/2025 9:34 PM EDT [facility] Comment:No Action Charge Nurse Name Saira Nichols RN 06/21/2025 9:34 PM EDT [facility] Charge Nurse ID [id number] 06/21/2025 9:34 PM EDT [facility] Blood Capillary blood specimen / Unknown 06/21/2025 9:32 PM EDT 06/21/2025 9:34 PM EDT us Nuvia Johnson MD LAB POINT OF CARE TEST DOCKED DEVICE UNSOLICITED RESULTS Final Result Performing Organization Address City/[facility]/ZIP Co de Phone Number [facility] [address] [place] [address], [place] [phone] * POCT glucose (06/21/2025 4:21 PM EDT) Glucose 104 70 - 110 mg/dL 06/21/2025 4:23 PM EDT [facility] Comment:RN Notified Charge Nurse Name Sonya CLOUD 06/21/2025 4:23 PM EDT [facility] Charge Nurse ID [id number] 06/21/2025 4:23 PM EDT [facility] Blood Capillary blood specimen / Unknown 06/21/2025 4:21 PM EDT 06/21/2025 4:22 PM EDT us Nuvia Johnson MD LAB POINT OF CARE TEST DOCKED DEVICE UNSOLICITED RESULTS Final Result [facility] [address] [place] [address], [place] [phone] * (ABNORMAL) POCT glucose (06/21/2025 10:47 AM EDT) Glucose 114(H) 70 - 110 mg/dL 06/21/2025 10:48 AM EDT [facility] Comment:RN Notified Charge Nurse Name Sonya CLOUD 06/21/2025 10:48 AM EDT [facility] Charge Nurse ID [id number] 06/21/2025 10:48 AM EDT [facility] Blood Capillary blood specimen / Unknown 06/21/2025 10:47 AM EDT 06/21/2025 10:48 AM EDT Nuvia Johnson MD LAB POINT OF CARE TEST DOCKED DEVICE UNSOLICITED RESULTS Final Result [facility] [address] [place] [address], [place] [phone] * Potassium (06/21/2025 5:46 AM EDT) Potassium 3.8 3.2 - 4.6 mmol/L 06/21/2025 6:52 AM EDT [facility] Blood Venous blood specimen / Unknown Existing Catheter / Unknown 06/21/2025 5:46 AM EDT 06/21/2025 6:21 AM EDT us Nuvia Johnson MD LAB BLOOD ORDERABLES Millie l Result Performing Organization Address City/[facility]/ZIP Co de Phone Number [facility] [address] [place] [address], [place] [phone] * (ABNORMAL) Magnesium (06/21/2025 5:46 AM EDT) Magnesium 1.6(L) 1.8 - 2.4 mg/dL 06/21/2025 6:52 AM EDT [facility] Blood Venous blood specimen / Unknown Existing Catheter / Unknown 06/21/2025 5:46 AM EDT 06/21/2025 6:21 AM EDT us Nuvia Johnson MD LAB BLOOD ORDERABLES Millie l Result Performing Organization Address City/[facility]/ZIP Co de Phone Number [facility] [address] [place] [address], * Phosphorus (06/21/2025 5:46 AM EDT) Phosphorus 3.0 2.3 - 4.7 mg/dL 06/21/2025 6:52 AM EDT [facility] Blood Venous blood specimen / Unknown Existing Catheter / Unknown 06/21/2025 5:46 AM EDT 06/21/2025 6:21 AM EDT Nuvia Johnson MD LAB BLOOD ORDERABLES Millie l Result [facility] [address] [place] [address], * (ABNORMAL) Platelet count (06/21/2025 5:46 AM EDT) Platelets 14(LL) 138 - 402 10*3/uL 06/21/2025 6:34 AM EDT [facility] Blood Venous blood specimen / Unknown Existing Catheter / Unknown 06/21/2025 5:46 AM EDT 06/21/2025 6:21 AM EDT Nuvia Johnson MD LAB BLOOD ORDERABLES Millie l Result [facility] [address] [place] [address], * (ABNORMAL) POCT glucose (06/21/2025 5:45 AM EDT) Glucose 112(H) 70 - 110 mg/dL 06/21/2025 5:46 AM EDT [facility] Comment:No Action Charge Nurse Name Toyin Alvarado RN 06/21/2025 5:46 AM EDT [facility] [place] [id number] 06/21/2025 5:46 AM EDT [facility] Blood Capillary blood specimen / Unknown 06/21/2025 5:45 AM EDT 06/21/2025 5:46 AM EDT us Nuvia Johnson MD LAB POINT OF CARE TEST DOCKED DEVICE UNSOLICITED RESULTS Final Result Performing Organization Address [facility] de Phone Number [facility] [address] [place] [address], * (ABNORMAL) POCT glucose (06/20/2025 8:30 PM EDT) Glucose 114(H) 70 - 110 mg/dL 06/20/2025 8:31 PM EDT [facility] Comment:No Action Charge Nurse Name Toyin Alvarado RN 06/20/2025 8:31 PM EDT [facility] [place] [id number] 06/20/2025 8:31 PM EDT [facility] Blood Capillary blood specimen / Unknown 06/20/2025 8:30 PM EDT 06/20/2025 8:31 PM EDT us Nuvia Johnson MD LAB POINT OF CARE TEST DOCKED DEVICE UNSOLICITED RESULTS Final Result Performing Organization Address [facility] Phone Number [facility] [address] [place] [address], * (ABNORMAL) POCT glucose (06/20/2025 2:44 PM EDT) Glucose 124(H) 70 - 110 mg/dL 06/20/2025 2:45 PM EDT [facility] Comment:No Action Charge Nurse Name Ángela RO RN 06/20/2025 2:45 PM EDT [facility] Charge Nurse ID [id number] 06/20/2025 2:45 PM EDT [facility] Blood Capillary blood specimen / Unknown 06/20/2025 2:44 PM EDT 06/20/2025 2:44 PM EDT us Nuvia Johnson MD LAB POINT OF CARE TEST DOCKED DEVICE UNSOLICITED RESULTS Final Result Performing Organization Address [facility]/ZIP Co de Phone Number [facility] [address] [place] [address], * (ABNORMAL) POCT glucose (06/20/2025 10:34 AM EDT) Glucose 122(H) 70 - 110 mg/dL 06/20/2025 10:35 AM EDT [facility] Comment:No Action Charge Nurse Name Ezra Saucedo JIA RN 06/20/2025 10:35 AM EDT [facility] Charge Nurse ID [id number] 06/20/2025 10:35 AM EDT [facility] Blood Capillary blood specimen / Unknown 06/20/2025 10:34 AM EDT 06/20/2025 10:35 AM EDT Nuvia Johnson MD LAB POINT OF CARE TEST DOCKED DEVICE UNSOLICITED RESULTS Final Result Performing Organization Address [facility] Co de Phone Number [facility] [address] [place] [address], [place] [phone] * Potassium (06/20/2025 5:58 AM EDT) [facility] Potassium 3.4 3.2 - 4.6 mmol/L 06/20/2025 6:29 AM EDT [facility] Blood Venous blood specimen / Unknown Existing Catheter / Unknown 06/20/2025 5:58 AM EDT 06/20/2025 6:01 AM EDT us Nuvia Johnson MD LAB BLOOD ORDERABLES Millie l Result Performing Organization Address [facility]/ZIP Co de Phone Number [facility] [address] [place] [address], [place] [phone] * (ABNORMAL) Magnesium (06/20/2025 5:58 AM EDT) Magnesium 1.3(L) 1.8 - 2.4 mg/dL 06/20/2025 6:29 AM [facility] Blood Venous blood specimen / Unknown Existing Catheter / Unknown 06/20/2025 5:58 AM EDT 06/20/2025 6:01 AM EDT us Nuvia Johnson MD LAB BLOOD ORDERABLES Millie l Result [facility] [address] [place] [address], * (ABNORMAL) Manual diff (06/20/2025 5:57 AM EDT) Segmented neutrophil % 64 47 - 79 % 06/20/2025 7:00 AM [facility] Band neutrophil % 8(H) 0 - 6 % 06/20/2025 7:00 AM [facility] Myelocyte % 1 0 - 1 % 06/20/2025 7:00 AM [facility] Lymphocyte % 21 13 - 41 % 06/20/2025 7:00 AM [facility] Monocyte % 8 3 - 11 % 06/20/2025 7:00 AM [facility] Anisocytosis Mild 06/20/2025 7:00 AM [facility] Platelet Estimate Decreased 06/20/2025 7:00 AM [facility] Auto WBC 7.5 3.8 - 11.0 10*3/uL 06/20/2025 7:00 AM [facility] Neutrophil # 5.48 3.40 - 7.00 10*3/uL 06/20/2025 7:00 AM [facility] Lymphocyte # 1.58 0.40 - 3.90 10*3/uL 06/20/2025 7:00 AM [facility] Monocyte # 0.60 0.20 - 0.60 10*3/uL 06/20/2025 7:00 AM [facility] Eosinophil # 0.00 0.00 - 0.90 10*3/uL 06/20/2025 7:00 AM [facility] Basophil # 0.00 0.00 - 0.20 10*3/uL 06/20/2025 7:00 AM [facility] Total Counted 200 06/20/2025 7:00 AM [facility] WBC Morphology Normal 06/20/2025 7:00 AM [facility] PLT Morphology Normal 06/20/2025 7:00 AM [facility] Blood Venous blood specimen / Unknown Existing Catheter / Unknown 06/20/2025 5:57 AM EDT 06/20/2025 6:01 AM EDT Nuvia Johnson MD LAB BLOOD BANK TEST ORDER STACEY Final Result [facility] [address] [place] [address], * (ABNORMAL) CBC auto differential (06/20/2025 5:57 AM EDT) Auto WBC 7.5 3.8 - 11.0 10*3/uL 06/20/2025 7:00 AM [facility] RBC 2.57(L) 3.73 - 5.13 10*6/uL 06/20/2025 7:00 AM [facility] Hemoglobin 7.9(L) 11.2 - 15.3 g/dL 06/20/2025 7:00 AM [facility] Hematocrit 23.6(L) 32.6 - 44.6 % 06/20/2025 7:00 AM [facility] MCV 91.8 78.8 - 96.0 fL 06/20/2025 7:00 AM [facility] MCH 30.9 26.2 - 33.0 pg 06/20/2025 7:00 AM [facility] MCHC 33.7 32.7 - 35.1 g/dL 06/20/2025 7:00 AM [facility] RDW 18.2(H) 12.1 - 16.1 % 06/20/2025 7:00 AM EDT [facility] MPV 8.5 7.0 - 10.6 fL 06/20/2025 7:00 AM EDT [facility] Platelets 13(LL) 138 - 402 10*3/uL 06/20/2025 7:00 AM EDT [facility] Total Counted 200 06/20/2025 7:00 AM EDT [facility] Blood Venous blood specimen / Unknown Existing Catheter / Unknown 06/20/2025 5:57 AM EDT 06/20/2025 6:01 AM EDT Nuvia Johnson MD LAB BLOOD ORDERABLES Millie l Result Performing Organization Address City/[facility]/ZIP Co de Phone Number [facility] [address] [place] [address], [place] [phone] * POCT glucose (06/20/2025 5:55 AM EDT) Glucose 89 70 - 110 mg/dL 06/20/2025 6:00 AM EDT [facility] Charge Nurse Name Vidhi Us RN 06/20/2025 6:00 AM EDT [facility] Charge Nurse ID [id number] 06/20/2025 6:00 AM EDT [facility] Blood Capillary blood specimen / Unknown 06/20/2025 5:55 AM EDT 06/20/2025 5:59 AM EDT Nuvia Johnson MD LAB POINT OF CARE TEST DOCKED DEVICE UNSOLICITED RESULTS Final Result Performing Organization Address City/[facility]/ZIP Co de Phone Number [facility] [address] [place] [address], [place] [phone] * (ABNORMAL) POCT glucose (06/19/2025 9:47 PM EDT) Glucose 125(H) 70 - 110 mg/dL 06/19/2025 9:49 PM EDT [facility] Charge Nurse Name Vidhi Us RN 06/19/2025 9:49 PM EDT [facility] Charge Nurse ID [id number] 06/19/2025 9:49 PM EDT [facility] Blood Capillary blood specimen / Unknown 06/19/2025 9:47 PM EDT 06/19/2025 9:48 PM EDT Nuvia Johnson MD LAB POINT OF CARE TEST DOCKED DEVICE UNSOLICITED RESULTS Final Result Performing Organization Address [facility]/ZIP Co de Phone Number [facility] [address] [place] [address], [place] [phone] * (ABNORMAL) POCT glucose (06/19/2025 3:49 PM EDT) Glucose 111(H) 70 - 110 mg/dL 06/19/2025 3:50 PM EDT [facility] Comment:No Action Charge Nurse Name Mira RO RN 06/19/2025 3:50 PM EDT [facility] Charge Nurse ID [id number] 06/19/2025 3:50 PM EDT [facility] Blood Capillary blood specimen / Unknown 06/19/2025 3:49 PM EDT 06/19/2025 3:49 PM EDT Nuvia Johnson MD LAB POINT OF CARE TEST DOCKED DEVICE UNSOLICITED RESULTS Final Result Performing Organization Address City/[facility]/ZIP Co de Phone Number [facility] [address] [place] [address], [place] [phone] * POCT glucose (06/19/2025 11:54 AM EDT) Glucose 84 70 - 110 mg/dL 06/19/2025 11:56 AM EDT [facility] Comment:No Action Charge Nurse Name Yazan Moreashley VAZ 06/19/2025 11:56 AM EDT [facility] Charge Nurse ID [id number] 06/19/2025 11:56 AM EDT [facility] Blood Capillary blood specimen / Unknown 06/19/2025 11:54 AM EDT 06/19/2025 11:56 AM EDT us Nuvia Johnson MD LAB POINT OF CARE TEST DOCKED DEVICE UNSOLICITED RESULTS Final Result Performing Organization Address [facility] Phone Number [facility] [address] [place] [address], * POCT glucose (06/19/2025 6:12 AM EDT) Glucose 81 70 - 110 mg/dL 06/19/2025 6:14 AM EDT [facility] Charge Nurse Name Vidhi Abeba MONTILLA 06/19/2025 6:14 AM EDT [facility] Charge Nurse ID [id number] 06/19/2025 6:14 AM EDT [facility] Blood Capillary blood specimen / Unknown 06/19/2025 6:12 AM EDT 06/19/2025 6:14 AM EDT us Nuvia Johnson MD LAB POINT OF CARE TEST DOCKED DEVICE UNSOLICITED RESULTS Final Result Performing Organization Address [facility] Phone Number [facility] [address] [place] [address], * (ABNORMAL) Manual diff (06/19/2025 5:54 AM EDT) Segmented neutrophil % 58 47 - 79 % 06/19/2025 6:51 AM EDT [facility] Band neutrophil % 10(H) 0 - 6 % 06/19/2025 6:51 AM EDT [facility] Myelocyte % 1 0 - 1 % 06/19/2025 6:51 AM EDT [facility] Lymphocyte % 19 13 - 41 % 06/19/2025 6:51 AM EDT [facility] Monocyte % 9 3 - 11 % 06/19/2025 6:51 AM EDT [facility] Anisocytosis Mild 06/19/2025 6:51 AM [facility] Poikilocytes Mild 06/19/2025 6:51 AM [facility] Spherocytes Mild 06/19/2025 6:51 AM [facility] Dacrocytes Mild 06/19/2025 6:51 AM [facility] Platelet Estimate Decreased 06/19/2025 6:51 AM [facility] Auto WBC 7.4 3.8 - 11.0 10*3/uL 06/19/2025 6:51 AM [facility] Neutrophil # 5.10 3.40 - 7.00 10*3/uL 06/19/2025 6:51 AM [facility] Lymphocyte # 1.41 0.40 - 3.90 10*3/uL 06/19/2025 6:51 AM [facility] Monocyte # 0.67(H) 0.20 - 0.60 10*3/uL 06/19/2025 6:51 AM [facility] Eosinophil # 0.22 0.00 - 0.90 10*3/uL 06/19/2025 6:51 AM [facility] Basophil # 0.00 0.00 - 0.20 10*3/uL 06/19/2025 6:51 AM [facility] Total Counted 100 06/19/2025 6:51 AM [facility] Eosinophil % 3 0 - 6 % 06/19/2025 6:51 AM [facility] WBC Morphology Normal 06/19/2025 6:51 AM [facility] PLT Morphology Normal 06/19/2025 6:51 AM [facility] LABORATORY Blood Venous blood specimen / Unknown Venipuncture / Unknown 06/19/2025 5:54 AM EDT 06/19/2025 6:04 AM EDT us Nuvia Johnson MD LAB BLOOD BANK TEST ORDER STACEY Final Result [facility] [address] [place] [address], * Phosphorus (06/19/2025 5:54 AM EDT) Phosphorus 3.9 2.3 - 4.7 mg/dL 06/19/2025 6:36 AM EDT [facility] Blood Venous blood specimen / Unknown Venipuncture / Unknown 06/19/2025 5:54 AM EDT 06/19/2025 6:05 AM EDT Nuvia Johnson MD LAB BLOOD ORDERABLES Millie l Result [facility] [address] [place] [address], * (ABNORMAL) Magnesium (06/19/2025 5:54 AM EDT) [facility] Magnesium 0.6(LL) 1.8 - 2.4 mg/dL 06/19/2025 6:42 AM EDT [facility] Blood Venous blood specimen / Unknown Venipuncture / Unknown 06/19/2025 5:54 AM EDT 06/19/2025 6:05 AM EDT Nuvia Johnson MD LAB BLOOD ORDERABLES Millie l Result [facility] [address] [place] [address], * (ABNORMAL) Basic metabolic panel (06/19/2025 5:54 AM EDT) Glucose 88 58 - 104 mg/dL 06/19/2025 6:36 AM EDT [facility] Sodium 142 134 - 143 mmol/L 06/19/2025 6:36 AM EDT [facility] Potassium 2.9(L) 3.2 - 4.6 mmol/L 06/19/2025 6:36 AM EDT [facility] Chloride 108 99 - 108 mmol/L 06/19/2025 6:36 AM T [facility] CO2 27 19 - 29 mmol/L 06/19/2025 6:36 AM [facility] Anion Gap 7 5 - 15 mmol/L 06/19/2025 6:36 AM [facility] BUN 12 7 - 20 mg/dL 06/19/2025 6:36 AM T [facility] Creatinine 0.62 <=1.20 mg/dL 06/19/2025 6:36 AM [facility] BUN/Creatinine Ratio 19.35 10.00 - 20.00 ratio 06/19/2025 6:36 AM [facility] Calcium 7.3(L) 7.9 - 11.1 mg/dL 06/19/2025 6:36 AM [facility] eGFR (CKD-EPI) 94.3 >60.0 - 200.0 mL/min/1.7 3m*2 06/19/2025 6:36 AM [facility] Blood Venous blood specimen / Unknown Venipuncture / Unknown 06/19/2025 5:54 AM EDT 06/19/2025 6:05 AM EDT Nuvia Johnson MD LAB BLOOD ORDERABLES Milile cristina Result [facility] [address] [place] [address], * (ABNORMAL) CBC auto differential (06/19/2025 5:54 AM EDT) Auto WBC 7.4 3.8 - 11.0 10*3/uL 06/19[facility]2025 [facility] RBC 2.85(L) 3.73 - 5.13 10*6/uL 06/19/2025 6:51 AM [facility] Hemoglobin 8.9(L) 11.2 - 15.3 g/dL 06/19/2025 6:51 AM EDT [facility] Hematocrit 26.1(L) 32.6 - 44.6 % 06/19/2025 6:51 AM EDT [facility] MCV 91.7 78.8 - 96.0 fL 06/19/2025 6:[facility] MCH 31.3 26.2 - 33.0 pg 06/19/2025 6:51 [facility] MCHC 34.2 32.7 - 35.1 g/dL 06/19/2025 6:51 AM [facility] RDW 18.6(H) 12.1 - 16.1 % 06/19/2025 6:51 AM [facility] MPV 8.6 7.0 - 10.6 fL 06/19/2025 6:51 AM [facility] Platelets 14(LL) 138 - 402 10*3/uL 06/19/2025 6:51 AM [facility] Total Counted 100 06/19/2025 6:51 AM [facility] Blood Venous blood specimen / Unknown Venipuncture / Unknown 06/19/2025 5:54 AM EDT 06/19/2025 6:04 AM EDT Nuvia Johnson MD LAB BLOOD ORDERABLES Millie l Result [facility] [address] [place] [address], * POCT glucose (06/18/2025 10:13 PM EDT) [facility] Glucose 85 70 - 110 mg/dL 06/18/2025 10:26 PM EDT [facility] Charge Nurse Name Vidhi Us RN 06/18/2025 10:[facility] Charge Nurse ID [id number] 06/18/2025 10:26 PM EDT [facility] Blood Capillary blood specimen / Unknown 06/18/2025 10:13 PM EDT 06/18/2025 10:26 PM EDT Nuvia Johnson MD LAB POINT OF CARE TEST DOCKED DEVICE UNSOLICITED RESULTS Final Result [facility] [address] [place] [address], [place] [phone] * POCT glucose (06/18/2025 6:02 PM EDT) Glucose 87 70 - 110 mg/dL 06/18/2025 6:04 PM EDT [facility] Comment:No Action Charge Nurse Name Jenni Jenkins RN 06/18/2025 6:04 PM EDT [facility] Charge Nurse ID [id number] 06/18/2025 6:04 PM EDT [facility] Blood Capillary blood specimen / Unknown 06/18/2025 6:02 PM EDT 06/18/2025 6:03 PM EDT Nuvia Johnson MD LAB POINT OF CARE TEST DOCKED DEVICE UNSOLICITED RESULTS Final Result Performing Organization Address City/[facility]/ZIP Co de Phone Number [facility] [address] [place] [address], [place] [phone] documented in this encounter Visit Diagnoses Diagnosis Stroke, acute, embolic- Primary 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 Non-small cell lung cancer, unspecified laterality Thrombocytopenia Unspecified thrombocytopenia documented in this encounter Admitting Diagnoses Diagnosis Stroke, acute, embolic documented in this encounter Administered Medications Inactive Administered Medications - up to 3 most recent administrations Medication Order MAR Action Action Date Dose Rate Site atorvastatin (Lipitor) tablet 80 mg 80 mg, Oral, Nightly, First dose on Wed06/18/25 at 2200, Indications: Cerebrovascular AccidentIndications:Cerebrovascular Accident Given 06/22/2025 9:36 PM EDT 80 mg Given 06/21/2025 9:26 PM EDT 80 mg Given 06/20/2025 10:10 PM EDT 80 mg bumetanide (Bumex) tablet 2 mg 2 mg, Oral, 2 times daily, First dose on Wed06/18/25 at 2200 Given 06/23/2025 9:55 AM EDT 2 mg Given 06/22/2025 9:36 PM EDT 2 mg carvedilol (Coreg) tablet 12.5 mg 12.5 mg, Oral, 2 times daily with meals, First dose on Wed06/18/25 at 1700, Hold for systolic blood pressure less than or equal to 100 mmHg Hold for heart rate less than or equal to 60 bpm Given 06/23/2025 9:51 AM EDT 12.5 mg Given 06/22/2025 5:01 PM EDT 12.5 mg Given 06/22/2025 9:51 AM EDT 12.5 mg cyancobalamin (Vitamin B-12) tablet 500 mcg 500 mcg, Oral, Daily, First dose on Wed06/18/25 at 1630 Given 06/23/2025 9:53 AM EDT 500 mcg Given 06/22/2025 9:50 AM EDT 500 mcg Given 06/21/2025 9:47 AM EDT 500 mcg cyclobenzaprine (Flexeril) tablet 10 mg 10 mg, Oral, Nightly, First dose on Wed06/18/25 at 2200 Given 06/22/2025 9:36 PM EDT 10 mg Given 06/21/2025 9:26 PM EDT 10 mg Given 06/20/2025 10:10 PM EDT 10 mg dextrose 50 % solution 12.5-25 g 12.5-25 g, Intravenous, Every 15 min PRN, low blood sugar, symptomatic hypoglycemia, Starting on Wed06/18/25 at 1626, For responsive patient unable to take PO, with IV access: give 12.5g dose. For unresponsive patient with IV access: give 25 g dose. diphenoxylate-atropine (Lomotil) 2.5-0.025 MG per tablet 1 tablet 1 tablet, Oral, 4 times daily PRN, diarrhea, Starting on Wed06/18/25 at 1626, Indications: Diarrhea, Chemotherapy induced diarrheaIndications:Diarrhea,Chemotherapy induced diarrhea Given 06/19/2025 7:05 AM EDT 1 tablet DULoxetine (Cymbalta) DR capsule 60 mg 60 mg, Oral, Every morning, First dose on Wed06/19/25 at 1000, Do not crush or chew. Given 06/23/2025 9:51 AM EDT 60 mg Given 06/22/2025 9:50 AM EDT 60 mg Given 06/21/2025 9:47 AM EDT 60 mg empagliflozin (Jardiance) tablet 10 mg 10 mg, Oral, Daily, First dose on Wed06/18/25 at 1630 Given 06/23/2025 9:52 AM EDT 10 mg Given 06/22/2025 9:51 AM EDT 10 mg Given 06/21/2025 9:47 AM EDT 10 mg folic acid (Folvite) tablet 1 mg 1 mg, Oral, Daily, First dose on Wed06/18/25 at 1630 Given 06/23/2025 9:53 AM EDT 1 mg Given 06/22/2025 9:50 AM EDT 1 mg Given 06/21/2025 9:47 AM EDT 1 mg gabapentin (Neurontin) capsule 400 mg 400 mg, Oral, 2 times daily, First dose on Wed06/18/25 at 2200 Given 06/23/2025 9:52 AM EDT 400 mg Given 06/22/2025 9:36 PM EDT 400 mg Given 06/22/2025 9:50 AM EDT 400 mg glucose (Glutose) 40 % oral gel 15 g 15 g, Oral, Every 15 min PRN, low blood sugar, Starting on Wed06/18/25 at 1626, For responsive patient able to take PO: may give 1 tube of glucose gel or 3-4 glucose tablets for blood glucose less than 70 mg/dL. glucose chewable tablet 12-16 g 12-16 g, Oral, Every 15 min PRN, low blood sugar, Starting on Wed06/18/25 at 1626, For responsive patient able to take PO: may give 1 tube of glucose gel or 3-4 glucose tablets for blood glucose less than 70 mg/dL. ipratropium-albuterol (Duo-Neb) 0.5-2.5 mg/3 mL nebulizer solution 3 mL 3 mL, Nebulization, 4 times daily RT, First dose on Wed06/18/25 at 1630 Given 06/22/2025 3:07 PM EDT 3 mL Given 06/22/2025 11:12 AM EDT 3 mL Given 06/22/2025 8:55 AM EDT 3 mL isosorbide mononitrate tablet 20 mg 20 mg, Oral, 2 times daily, First dose on Wed06/18/25 at 2200 Given 06/23/2025 9:55 AM EDT 20 mg Given 06/22/2025 9:36 PM EDT 20 mg Given 06/22/2025 9:50 AM EDT 20 mg magnesium oxide (Mag-Ox) tablet 800 mg 800 mg, Oral, 2 times daily, First dose on Wed06/20/25 at 1000 Given 06/23/2025 9:52 AM EDT 800 mg Given 06/22/2025 9:36 PM EDT 800 mg Given 06/22/2025 9:50 AM EDT 800 mg magnesium sulfate in D5W IVPB 1 g 1 g, Intravenous, Administer over 60 Minutes, Every 1 hour, First dose on Wed06/19/25 at 0700, For 2 doses 06/19/2025 8:05 AM EDT 1 g New 06/19/2025 7:00 AM EDT 1 g magnesium sulfate in D5W IVPB 1 g 1 g, Intravenous, Administer over 60 Minutes, Once, On Wed06/20/25 at 0700, For 1 dose 06/20/2025 6:41 AM EDT 1 g magnesium sulfate in D5W IVPB 1 g 1 g, Intravenous, Administer over 60 Minutes, Once, On Wed06/21/25 at 1000, For 1 dose 06/21/2025 9:47 AM EDT 1 g melatonin tablet 6 mg 6 mg, Oral, Nightly, First dose on Wed06/19/25 at 2200 Given 06/22/2025 9:36 PM EDT 6 mg Given 06/21/2025 9:26 PM EDT 6 mg Given 06/20/2025 10:10 PM EDT 6 mg metFORMIN (Glucophage) tablet 500 mg 500 mg, Oral, 2 times daily with meals, First dose on Wed06/18/25 at 1700 Given 06/23/2025 9:53 AM EDT 500 mg Given 06/22/2025 5:01 PM EDT 500 mg Given 06/22/2025 9:50 AM EDT 500 mg nozin nasal spa receptionist popswab 1 application. 1 application., Nasal, Once, On Wed06/18/25 at 1630, For 1 dose, On admission Given 06/18/2025 5:59 PM EDT 1 application. nozin nasal spa receptionist popswab 1 application. 1 application., Nasal, Every 12 hours scheduled, First dose on Wed06/18/25 at 2200, Apply to bilateral nares Given 06/23/2025 9:55 AM EDT 1 applicat ion. Given 06/22/2025 9:36 PM EDT 1 application. Given 06/22/2025 9:51 AM EDT 1 application. ondansetron (Zofran) injection 4 mg 4 mg, Intravenous, Every 6 hours PRN, nausea, vomiting, Starting on Wed06/18/25 at 1626, Give IV if patient is unable to take orally. Given 06/21/2025 9:53 PM EDT 4 mg Given 06/20/2025 2:41 PM EDT 4 mg Given 06/18/2025 7:25 PM EDT 4 mg ondansetron (Zofran) tablet 4 mg 4 mg, Oral, Every 6 hours PRN, nausea, vomiting, Starting on Wed06/18/25 at 1626 pantoprazole (ProtoNix) EC tablet 40 mg 40 mg, Oral, Daily before breakfast, First dose on Wed06/19/25 at 0730, Do not crush, chew, or split. Given 06/23/2025 6:10 AM EDT 40 mg Given 06/22/2025 6:17 AM EDT 40 mg Given 06/21/2025 6:06 AM EDT 40 mg potassium chloride CR (Klor-Con M20) ER tablet 20 mEq 20 mEq, Oral, 2 times daily, First dose (after last modification) on Wed06/20/25 at 1000, Best given with food and plenty of water to minimize gastric irritation. Do not crush or chew. Given 06/23/2025 9:52 AM EDT 20 mEq Given 06/22/2025 9:36 PM EDT 20 mEq Given 06/22/2025 9:50 AM EDT 20 mEq potassium chloride IVPB 10 mEq 10 mEq, Intravenous, Administer over 1-2 Hours, Every 1 hour, First dose on Wed06/19/25 at 0900, For 3 doses New Bag 06/19/2025 11:15 AM EDT 10 mEq New Bag 06/19/2025 10:18 AM EDT 10 mEq New Bag 06/19/2025 9:26 AM EDT 10 mEq valproic acid (Depakene) oral liquid 250 mg 250 mg, Oral, Every 8 hours scheduled, First dose on Wed06/18/25 at 1630 Given 06/23/2025 6:11 AM EDT 250 mg Given 06/22/2025 9:37 PM EDT 250 mg Given 06/22/2025 1:58 PM EDT 250 mg documented in this encounter Active and Recently Administered Medications Times are shown in EDT. Scheduled Medication Order 06/21/2025 06/22/2025 06/23/2025 atorvastatin (Lipitor) tablet 80 mg 80 mg, Oral, Nightly, First dose on Wed06/18/25 at 2200, Indications: Cerebrovascular Accident 2125 (Given - Provider: Saira Nichols RN) 2135 (Given - Provider: Saira Nichols RN) bumetanide (Bumex) tablet 2 mg 2 mg, Oral, 2 times daily, First dose on Wed06/18/25 at 2200 1000 (Dose Auto Held)2200 (Dose Auto Held) 0850 (Unheld by provider - Provider: Nuvia Johnson MD)0949 (Held by provider - Provider: Nuvia Johnson MD - Reason: Other)1000 (Dose Auto Held - Provider: Nuvia Johnson MD)1717 (Unheld by provider - Provider: Nuvia Johnson MD)2136 (Given - Provider: Saira Nichols RN) 0955 (Given - Provider: Lynda Jack) carvedilol (Coreg) tablet 12.5 mg 12.5 mg, Oral, 2 times daily with meals, First dose on Wed06/18/25 at 1700, Hold for systolic blood pressure less than or equal to 100 mmHg Hold for heart rate less than or equal to 60 bpm 0827 (Given - Provider: Lyssa Vazquez)1708 (Given - Provider: Lyssa Vazquez) 0951 (Given - Provider: Lyssa Vazquez)1701 (Given - Provider: Lyssa Vazquez) 0951 (Given - Provider: Lynda Jack) cyancobalamin (Vitamin B-12) tablet 500 mcg 500 mcg, Oral, Daily, First dose on Wed06/18/25 at 1630 0947 (Given - Provider: Lyssa Vazquez) 0950 (Given - Provider: Lyssa Vazquez) 0953 (Given - Provider: Lynda Jack) cyclobenzaprine (Flexeril) tablet 10 mg 10 mg, Oral, Nightly, First dose on Wed06/18/25 at 2200 212 (Given - Provider: Saira Nichols, ROLDAN) 2135 (Given - Provider: Saira Nichols, ROLDAN) DULoxetine (Cymbalta) DR capsule 60 mg 60 mg, Oral, Every morning, First dose on Wed06/19/25 at 1000, Do not crush or chew. 0947 (Given - Provider: Lyssa Vazquez) 0950 (Given - Provider: Lyssa Vazquez) 0951 (Given - Provider: Lynda Jack) empagliflozin (Jardiance) tablet 10 mg 10 mg, Oral, Daily, First dose on Wed06/18/25 at 1630 0947 (Given - Provider: Lyssa Vazquez) 0951 (Given - Provider: Lyssa Vazquez) 0952 (Given - Provider: Lynda Jack) folic acid (Folvite) tablet 1 mg 1 mg, Oral, Daily, First dose on Wed06/18/25 at 1630 0947 (Given - Provider: Lyssa Vazquez) 0950 (Given - Provider: Lyssa Vazquez) 0953 (Given - Provider: Lynda Jack) gabapentin (Neurontin) capsule 400 mg 400 mg, Oral, 2 times daily, First dose on Wed06/18/25 at 2200 0947 (Given - Provider: Lyssa Vazquez)2125 (Given - Provider: Saira Nichols RN) 0950 (Given - Provider: Lyssa Vazquez)2135 (Given - Provider: Saira Nichols RN) 0952 (Given - Provider: Lynda Jack) insulin lispro (HumaLOG) injection 0-5 Units 0-5 Units, Subcutaneous, 4 times daily before meals and nightly, First dose on Wed06/18/25 at 1630, If eating and prandial insulin is ordered, give correction and prandial insulin together as one injection based on premeal glucose levels., BG < 70: No insulin, see hypoglyecmia treatment, BG 70-149: 0, BG 150-199: 1, BG 200-249: 2, BG 250-299: 3, BG 300-349: 4, BG > 349: 5, BG > 349 Instructions: Contact prescriber 0649 (Not Given - Provider: Saira Nichols RN - Reason: Order parameters not met)1124 (Not Given - Provider: Lyssa Vazquez - Reason: Order parameters not met)1652 (Not Given - Provider: Lyssa Vazquez - Reason: Order parameters not met)2133 (Not Given - Provider: Saira Nichols RN - Reason: Order parameters not met) 0741 (Not Given - Provider: Ramona Salas RN - Reason: Order parameters not met)1229 (Not Given - Provider: Lyssa Vazquez - Reason: Order parameters not met)1757 (Not Given - Provider: Lyssa Vazquez - Reason: Other)213 (Not Given - Provider: Saira Nichols RN - Reason: Order parameters not met) 0634 (Not Given - Provider: Saira Nichols RN - Reason: Order parameters not met)1130 (Canceled Entry - Provider: Automatic Discharge Provider - Comment: Automatically canceled at discontinue of medication order) ipratropium-albuterol (Duo-Neb) 0.5-2.5 mg/3 mL nebulizer solution 3 mL 3 mL, Nebulization, 4 times daily RT, First dose on Wed06/18/25 at 1630 0715 (Not Given - Provider: Brianne Smith NURSE MANAGER - Reason: Patient/family refused)1140 (Not Given - Provider: Brianne Smith NURSE MANAGER - Reason: Patient/family refused)1522 (Not Given - Provider: Brianne Smith, NURSE MANAGER - Reason: Patient not available)2000 (Not Given - Provider: David Mcneill RRT - Reason: Other - Comment: pt not in room and bed stripped) 0855 (Given - Provider: Brianne Smith, NURSE MANAGER)1112 (Given - Provider: Brianne Smith, NURSE MANAGER)1507 (Given - Provider: Brianne Smith, NURSE MANAGER)1958 (Not Given - Provider: David Mcneill RRT - Reason: Patient/family refused - Comment: no distress noted) 0731 (Not Given - Provider: Brianne Smith, NURSE MANAGER - Reason: Patient/family refused)1130 (Not Given - Provider: Brianne Smith, NURSE MANAGER - Reason: Other) isosorbide mononitrate tablet 20 mg 20 mg, Oral, 2 times daily, First dose on Wed06/18/25 at 2200 0954 (Given - Provider: Lyssa Vazquez)2134 (Given - Provider: Saira Nichols, ROLDAN) 0950 (Given - Provider: Lyssa Vazquez)213 (Given - Provider: Saira Nichols RN) 0955 (Given - Provider: Lynda Jack) magnesium oxide (Mag-Ox) tablet 800 mg 800 mg, Oral, 2 times daily, First dose on Wed06/20/25 at 1000 0947 (Given - Provider: Lyssa Vazquez)2125 (Given - Provider: Saira Nichols, ROLDAN) 0950 (Given - Provider: Lyssa Vazquez)2135 (Given - Provider: Saira Nichols RN) 0952 (Given - Provider: Lynda Jack) magnesium sulfate in D5W IVPB 1 g (COMPLETED) 1 g, Intravenous, Administer over 60 Minutes, Once, On Wed06/21/25 at 1000, For 1 dose 0947 (New Bag - Provider: Lyssa Vazquez)1123 (Stopped - Provider: Lyssa Vazquez) melatonin tablet 6 mg 6 mg, Oral, Nightly, First dose on Wed06/19/25 at 2200 2125 (Given - Provider: Saira Nichols, ROLDAN) 2135 (Given - Provider: Saira Nichols RN) metFORMIN (Glucophage) tablet 500 mg 500 mg, Oral, 2 times daily with meals, First dose on Wed06/18/25 at 1700 0827 (Given - Provider: Lyssa Vazquez)1708 (Given - Provider: Lyssa Vazquez) 0950 (Given - Provider: Lyssa Vazquez)170 (Given - Provider: Lyssa Vazquez) 0953 (Given - Provider: Lynda Jack) nozin nasal spa receptionist popswab 1 application. 1 application., Nasal, Every 12 hours scheduled, First dose on Wed06/18/25 at 2200, Apply to bilateral nares 0947 (Given - Provider: Lyssa Vazquez)2125 (Given - Provider: Saira Nichols RN) 0951 (Given - Provider: Lyssa Vazquez)2135 (Given - Provider: Saira Nichols RN) 0955 (Given - Provider: Lynda Jack) pantoprazole (ProtoNix) EC tablet 40 mg 40 mg, Oral, Daily before breakfast, First dose on Wed06/19/25 at 0730, Do not crush, chew, or split. 0606 (Given - Provider: Saira Nichols RN) 0617 (Given - Provider: Saira Nichols RN) 0610 (Given - Provider: Saira Nichols RN) potassium chloride CR (Klor-Con M20) ER tablet 20 mEq 20 mEq, Oral, 2 times daily, First dose (after last modification) on Wed06/20/25 at 1000, Best given with food and plenty of water to minimize gastric irritation. Do not crush or chew. 0947 (Given - Provider: Lyssa Vazquez)2125 (Given - Provider: Saira Nichols RN) 0950 (Given - Provider: Lyssa Vazquez)2135 (Given - Provider: Saira Nichols RN) 0952 (Given - Provider: Lynda Jack) valproic acid (Depakene) oral liquid 250 mg 250 mg, Oral, Every 8 hours scheduled, First dose on Wed06/18/25 at 1630 0606 (Given - Provider: Saira Nichols RN)1344 (Given - Provider: Lyssa Vazquez)5 (Given - Provider: Saira Nichols RN) 0617 (Given - Provider: Saira Nichols RN)1358 (Given - Provider: Lyssa Vazquez)2136 (Given - Provider: Saira Nichols RN) 0611 (Given - Provider: Saira Nichols RN) PRN Medication Order 06/21/2025 06/22/2025 06/23/2025 acetaminophen (Tylenol) tablet 650 mg 650 mg, Oral, Every 6 hours PRN, mild pain (1-4), Starting on Wed06/18/25 at 1626, For temperature >101.0 or mild pain aluminum & magnesium hydroxide-simethicone (Mylanta) 200-200-20 MG/5ML oral suspension 20 mL 20 mL, Oral, Every 4 hours PRN, indigestion, heartburn, Starting on Wed06/18/25 at 1626, Do NOT give to hemodialysis or end stage renal disease patient. Notify Physician if no results. bisacodyl (Dulcolax) suppository 10 mg 10 mg, Rectal, Daily PRN, constipation, Starting on Wed06/18/25 at 1626, If no results from [facility] [place] - notify physician if no results dextrose 50 % solution 12.5-25 g(Linked Group 1) 12.5-25 g, Intravenous, Every 15 min PRN, low blood sugar, symptomatic hypoglycemia, Starting on Wed06/18/25 at 1626, For responsive patient unable to take PO, with IV access: give 12.5g dose. For unresponsive patient with IV access: give 25 g dose. diphenoxylate-atropine (Lomotil) 2.5-0.025 MG per tablet 1 tablet 1 tablet, Oral, 4 times daily PRN, diarrhea, Starting on Wed06/18/25 at 1626, Indications: Diarrhea, Chemotherapy induced diarrhea Glucagon Emergency injection kit 1 mg 1 mg, Intramuscular, As needed, low blood sugar and no IV access, Starting on Wed06/18/25 at 1626, Give if no IV access and blood glucose less than 70 mg/dL with patient unconscious or not alert. Caution: glucagon can cause nausea and vomiting. Roll patient on their side when administering to prevent aspiration. If repeat blood glucose (15 minutes after administration) is 70 mg/dL or below, administer second dose of 1 mg glucagon IM and contact the ordering provider. glucose (Glutose) 40 % oral gel 15 g(Linked Group 1) 15 g, Oral, Every 15 min PRN, low blood sugar, Starting on Wed06/18/25 at 1626, For responsive patient able to take PO: may give 1 tube of glucose gel or 3-4 glucose tablets for blood glucose less than 70 mg/dL. glucose chewable tablet 12-16 g(Linked Group 1) 12-16 g, Oral, Every 15 min PRN, low blood sugar, Starting on Wed06/18/25 at 1626, For responsive patient able to take PO: may give 1 tube of glucose gel or 3-4 glucose tablets for blood glucose less than 70 mg/dL. magnesium hydroxide (Milk of Magnesia) 400 MG/5ML suspension 20 mL 20 mL, Oral, Every 8 hours PRN, constipation, Starting on Wed06/18/25 at 1626, For constipation. Do NOT give to hemodialysis or end stage renal disease patient. ondansetron (Zofran) injection 4 mg(Linked Group 2) 4 mg, Intravenous, Every 6 hours PRN, nausea, vomiting, Starting on Wed06/18/25 at 1626, Give IV if patient is unable to take orally. 2153 (Given - Provider: Saira Nichols, ROLDAN) ondansetron (Zofran) tablet 4 mg(Linked Group 2) 4 mg, Oral, Every 6 hours PRN, nausea, vomiting, Starting on Wed06/18/25 at 1626 2153 (See Alternative - Provider: Saira Nichols, ROLDAN) Linked Groups Order Group 1: glucose chewable tablet 12-16 gJump to med 12-16 g, Oral, Every 15 min PRN, low blood sugar, Starting on Wed06/18/25 at 1626, For responsive patient able to take PO: may give 1 tube of glucose gel or 3-4 glucose tablets for blood glucose less than 70 mg/dL. Or glucose (Glutose) 40 % oral gel 15 gJump to med 15 g, Oral, Every 15 min PRN, low blood sugar, Starting on Wed06/18/25 at 1626, For responsive patient able to take PO: may give 1 tube of glucose gel or 3-4 glucose tablets for blood glucose less than 70 mg/dL. Or dextrose 50 % solution 12.5-25 gJump to med 12.5-25 g, Intravenous, Every 15 min PRN, low blood sugar, symptomatic hypoglycemia, Starting on Wed06/18/25 at 1626, For responsive patient unable to take PO, with IV access: give 12.5g dose. For unresponsive patient with IV access: give 25 g dose. Group 2: ondansetron (Zofran) tablet 4 mgJump to med 4 mg, Oral, Every 6 hours PRN, nausea, vomiting, Starting on Wed06/18/25 at 1626 Or ondansetron (Zofran) injection 4 mgJump to med 4 mg, Intravenous, Every 6 hours PRN, nausea, vomiting, Starting on Wed06/18/25 at 1626, Give IV if patient is unable to take orally. documented in this encounter Additional Health Concerns Assessment Noted Time PHQ-9 Depression Total Score: 0 06/23/20 10:00 AM EDT documented as of this encounter Care Teams Com Writer Relationship Specialty Start Date End Date Lizandro Evans NP [address] [place] [address] PCP - General Family Medicine 03/20/25 07/22/25 Rachel Pagan MD [address] [place] [address] Consulting Physician Oncology 11/11/22 Pati Rucker APRN [address] [facility] [place] [address] Nurse Practitioner Oncology 12/21/22 Sosa Gardner APRN [address] [facility] [place] [address] Nurse Practitioner Oncology 06/24/23 Linda Elizabeth DO [address] [facility] [place] [address] Consulting Physician Oncology 03/01/25 Elsa Vazquez [address] [place] [address] Nurse Navigator Oncology 06/05/25 07/19/25 documented as of this encounter
--- OUTSIDE RECORDS SUMMARY | 2025-06-26 08:15 | XMS_ITS | Encounter Summary ---
Author Organization [facility] nter Address [address] [place] [address] Care Team Providers Care Link Trainer Teacher Name Role Phone Rachel Pagan MD Unavailable Pati Rucker MANAGEMENT ARCHITECT Unavailable [phone] Sosa Gardner MANAGEMENT ARCHITECT Unavailable [phone] Linda Elizabeth DO Unavailable Lizandro Khan NP Primary Care Provider [phone] Elsa Vazquez Unavailable Unavailable Angie Murray RN Unavailable Unavailab le Reason for Visit * Auth/Cert (Routine) Specialty Diagnoses / Procedures Referred By Controse mary t Referred To Contact Diagnoses Malignant neoplasm of unspecified part of unspecified bronchus or lung Procedures TX PEMETREXED INJECTION [facility] [address] [place] [address] Phone: tel: [facility] [address] [place] [address] Phone: tel: fax: Referral ID Status Reason Start Date Expiration Date Visits Re quested Visits Authorized [id number] 1 1 Encounter Details Date Type Department Care Team (Latest Contact Info) Description 06/26/2025 8:15 AM EDT - 06/26/2025 10:29 AM EDT Hospital Encounter [facility] [address] [place] [address] Stage IV squamous cell carcinoma of lung, unspecified laterality Discharge Disposition: Still a Patient Social History Tobacco Use Types Packs/Day Years [...] week 11/11/2022 How often do you attend [facility] or [facility] services? More than 4 times per year 11/11/2022 Do you belong to any clubs o r organizations such as yazdanism groups, unions, fraternal or athletic groups, or [...] things needed for daily living? No 06/23/2025 [facility] Utilities Answer Date Recorded In the past [...] PM EST documented as of this encounter Functional Status * Are you deaf or do you have serious difficulty hearing? Answer Date of Assessment Author No 10/27/2022 3:29 PM Demetri Moser RN * Are you blind or do [...] 10/27/2022 3:29 PM Demetri Moser RN documented as of this encounter Mental Status * Because of a physical, mental, or emotional condition, do you have serious difficulty concentrating, remembering, or making decisions? (5 years old or older) Answer Entry Date Author No 10/27/2022 3:29 PM Demetri Moser RN documented in this encounter Medications at Time [...] as of this encounter Progress Notes * Maria D Vazquez RN - 06/26/2025 8:15 AM EDT Jose Sims is here for a Mediport Flush. Cleaned right subclavian mediport with chlorprep, allowed to dry, accessed with 3/4 20 g Crowley needle using aseptic technique. blood return noted. flushed with 10 ml NS. 10 ml blood drawn and wasted. Blood drawn and sent to lab. Flushed with 10 ml normal saline. Heplock and swab cap applied. Dressing applied. Tolerated well. No complaints noted. Left accessed for chemotherapy. Loretta RN documented in this encounter Plan of Treatment Upcoming Encounters Date Type Department Care Team (Late st Contact Info) Description 08/27/2025 8:45 AM EDT Office Visit [facility] [address] [place] [address] Rachel Pagan MD [address] [place] [address] 08/28/2025 1:00 PM EDT Office Visit [facility] [address] [place] [address] Yazan Castro DPM [address] [place] [address] 08/29/2025 10:30 AM EDT Appointment [facility] [address] [place] [address] 09/06/2025 1:45 PM EDT Appointment [facility] [address] [place] [address] 09/12/2025 9:30 AM EDT Appointment [facility] [address], [facility] [place] [address] 09/28/2025 9:30 AM EST Office Visit [facility] [address] [place] [facility] [place] [address] Ky Jewell MD [facility] [address] [facility] [place] [address] 11/05/2025 2:45 PM EST Office Visit [facility] [address] [place] [address] Ruddy Mayes MD [facility] [address] [facility] [place] [address] 12/31/2025 11:30 AM EST Office Visit [facility] [address] [id number] 01/22/2026 9:00 AM EDT Office Visit [facility] [address] [place] [address] Allyn Toribio NP [address] [place], [place] [id number] documented as of this encounter Goals Goal Patient Goal Type Associated Problems Recent Progress Patient-Stated? Author Patient's support system will participate in treatment Emily Lockett documented as of this encounter Visit Diagnoses Diagnosis Stage IV squamous cell carcinoma of lung, unspecified laterality documented in this encounter Administered Medications Inactive Administered Medications - up to 3 most recent administrations Medication Order MAR Action Action Date Dose Rate Site sodium chloride 0.9 % flush 20 mL 20 mL, Intravenous, Once, On Wed06/26/25 at 0900, For 1 dose Given 06/26/2025 8:44 AM EDT 20 mL documented in this encounter Additional Health Concerns Assessment Noted Time PHQ-9 Depression Total Score: 0 06/23/20 10:00 AM EDT documented as of this encounter Care Teams Link Trainer Teacher Relationship Specialty Start Date End Date Lizandro Khan NP [address] [place] [address] PCP - General Family Medicine 03/20/25 07/22/25 Rachel Pagan MD [address] [place] [id number] Consulting Physician Oncology 11/11/22 Pati Rucker APRN [address] [place] [id number] Nurse Practitioner Oncology 12/21/22 Sosa Gardner APRN [address] [place] [address] Nurse Practitioner Oncology 06/24/23 Linda Elizabeth DO [address] [place] [address] Consulting Physician Oncology 03/01/25 Elsa Vazquez [address] [place], [place] [address] Nurse Navigator Oncology 06/05/25 07/19/25 Angie Murray, ROLDAN [address] [place] [address] Nurse Navigator Oncology 06/26/25 documented as of this encounter
--- OUTSIDE RECORDS SUMMARY | 2025-06-26 09:00 | XMS_ITS | Encounter Summary ---
Author Organization [facility] nter Address [address] [place] [address] Care Team Providers Care Deck Builder Name Role Phone Rachel Chow MD Unavailable [phone] Pati Rucker TEST DRILLER Unavailable [phone] Sosa Gardner TEST DRILLER Unavailable [phone] Linda Elizabeth DO Unavailable Lizandro Khan NP Primary Care Provider Elsa Vazquez Unavailable Unavailable Angie Murray RN Unavailable Unavailab le Reason for Visit * Reason Comments Follow-up Non-small cell lung cancer * Auth/Cert (Routine) Specialty Diagnoses / Procedures Referred By Contac t Referred To Contact Diagnoses Malignant neoplasm of unspecified part of unspecified bronchus or lung Procedures IN PEMETREXED INJECTION [facility] [address] [place] [address] Phone: tel: [facility] [address] [place] [address] Phone: tel: fax: Referral ID Status Reason Start Date Expiration Date Visits Re quested Visits Authorized [id number] 1 1 Encounter Details Date Type Department Care Team (Late st Contact Info) Description 06/26/2025 9:00 AM EDT Office Visit [facility] [address] [place] [address] Rachel Chow MD [address] [place] [id number] Non-small cell cancer of right lung (Primary Dx); Stage IV squamous cell carcinoma of lung, unspecified laterality; Non-small cell lung cancer, unspecified laterality Social History Tobacco Use Types Packs/Day Years Used Date Smoking Tobacco: Every Day Cigarettes 0.5 30.7 Started: 2024; Last attempted to quit: 03/18/2025 Passive Smoke Exposure: Past Smokeless Tobacco: Never Tobacco Cessation:Ready to Q uit: No; Counseling Given: Yes Comments:Offered patient an appointment at the health [...] 11/11/2022 How often do you attend chur or islam services? More than 4 times per year 11/11/2022 Do you belong to any clubs o r organizations such as mandaen groups, unions, fraternal or athletic groups, or [...] things needed for daily living? No 06/23/2025 [facility] Utilities Answer Date Recorded In the past 12 months has e electric, gas, oil, or water company [...] Sign Reading Time Taken Comments Blood Pressure 114/74 06/26/2025 8:29 AM EDT Pulse 83 06/26/2025 8:29 AM EDT Temperature 36.3 C (97.4 F) 06/26/2025 8:29 AM EDT Respiratory Rate 20 06/26/2025 8:29 AM EDT Oxygen Saturation 97% 06/26/2025 8:2 9 AM EDT O2 in use at 2 lpm per n/c. Inhaled Oxygen Concentration - - Weight 61.1 kg (134 lb 12.8 oz) 06/26/2025 8:29 AM EDT Height 147.3 cm (4' 10 ) 06/26/2025 8:2 9 AM EDT Body Mass Index 28.17 06/26/2025 8:29 AM EDT documented in this encounter Functional Status * Are you [...] Demetri Moser RN documented in this encounter Progress Notes * Rachel Soriano MD - 06/26/2025 9:00 AM EDT Patient ID: Jose Sims is a 64 y.o. female. Referring Physician: Lizandro Khan NP [address] [place] [address] Primary Care Provider: Lizandro Khan NP Subjective HPI 64 y/o F being treated for NSCLC. Jose has had a hard month. Found on MRI to have progression of disease when she started having face and arm numbness and then spasticity of arm as well. Completed 5 brain radiation treatments and followed with Dr. Cabrera on 03/29. Per his note, No evidence of recurrence and will FU with him in 3 months with repeat MRI brain. On 03/19/25 she was found to have PE while on xarelto (for A-fib) she was placed on Lovenox. Developed hematuria and hospitalized, found to have bladder mass with subsequent TURBT with benign pathology on 03/29/25. Due to bleeding, IVC filter placed. Pt reports she was instructed to stop xarelto and lovenox Review of Systems Constitutional: Positive for fatigue. Respiratory: Positive for shortness of breath. All other systems reviewed and are negative. 03/31/2025 04/02/2025 05/15/2025 05/16/2025 06/12/2025 06/18/2025 06/19/2025 SDOH What is your living situation today? I have a steady place to live I have a steady place to live I have a steady place to live I have a place to live today, but I am worried about losing it in the future I have a steady place to live I have a steady place to live Think about the place you live. Do you have problems with any of the following? None of the above None of the above None of the above None of the above None of the above None of the above Within the past 12 months, you worried that your food would run out before you got the money to buymore. Never true Never true Never true Never true Never true Never true Within the past 12 months, the food you bought just didn't last and you didn't have money to get more. Never true Never true Never true Never true Never true Never true In the past 12 months, has lack of reliable transportation kept you from medical appointments, meetings, work or from getting things needed for daily living? Y N N N N N In the past 12 months has the [employer], gas, oil, or water [employer] threatened to shut off services in your home? No No No No No No How often does anyone, including family and friends, physically hurt you? 1 1 1 2 1 1 How often does anyone, including family and friends, insult or talk down to you? 1 1 1 2 1 1 How often does anyone, including family and friends, threaten you with harm? 1 1 1 1 1 1 How often does anyone, including family and friends, scream or curse at you? 1 1 1 1 1 1 Safety Score 4 4 4 6 4 4 How hard is it for you to pay for the very basics like food, housing, medical care, and heating? Would you say it is: Not hard Not hard Not hard Not hard Not hard Do you want help finding or keeping work or a job? No No No No No If for any reason you need help with day-to-day activities such as bathing, preparing meals, shopping, managing finances, etc., do you get the help you need? don't need don't need don't need don't need don't need How often do you feel lonely or isolated from those around you? Never Never Never Rarely Rarely Do you speak a language other than Swedish at home? N N N N N Do you want help with school or training? For example, starting or completing job training or getting a high school diploma, GED or equivalent. N N N N N In the last 30 days, other than the activities you did for work, on average, how many days per weekdid you engage in moderate exercise (like walking fast, running, jogging, dancing, swimming, biking, or other similar activities)? 0 0 0 0 On average, how many minutes did you usually spend exercising at this level on one of those days? 00 0 0 How many times in the past 12 months have you had 5 or more drinks in a day (males) or 4 or more drinks in a day (females)? One drink is 12 ounces of beer, 5 ounces of wine, or 1.5 ounces of 80-proofspirits. Never Never Never Never How many times in the past 12 months have you used tobacco products (like cigarettes, cigars, snuff, chew, electronic cigarettes)? Never Never Never Never How many times in the past year have you used prescription drugs for non-medical reasons? Never Never Never Never How many times in the past year have you used illegal drugs? Never Never Never Never Little interest or pleasure in doing things Not at all Not at all Not at all Not at all Not at all Not at all Feeling down, depressed, or hopeless Not at all Not at all Not at all Not at all Not at all Not at all Stress means a situation in which a person feels tense, restless, nervous, or anxious, or is unableto sleep at night because his or her mind is troubled all the time. Do you feel this kind of stressthese days? Not at all Not at all Not at all Not at all Not at all Not at all Because of a physical, mental, or emotional condition, do you have serious difficulty concentrating, remembering, or making decisions? (5 years old or older) N N N N N Because of a physical, mental, or emotional condition, do you have difficulty doing errands alone such as visiting a doctor's office or shopping? (15 years old or older) N N N N N Multiple values from one day are sorted in reverse-chronological order Objective BSA: 1.54 meters squared BP 114/74 Pulse 83 Temp 97.4 ??F (36.3 ??C) Resp 20 Ht 4' 10 (1.473 m) Wt 134 lb 12.8 oz(61.1 kg) SpO2 97% Comment: O2 in use at 2 lpm per n/c. BMI 28.17 kg/m?? Physical Exam Vitals and nursing note reviewed. Constitutional: General: She is not in acute distress. Appearance: Normal appearance. She is well-developed and normal weight. She is not diaphoretic. HENT: Head: Normocephalic and atraumatic. Right Ear: Tympanic membrane, ear canal and external ear normal. Left Ear: Tympanic membrane, ear canal and external ear normal. Nose: Nose normal. Mouth/Throat: Mouth: Mucous membranes are moist. Pharynx: Oropharynx is clear. Eyes: General: No scleral icterus. Extraocular Movements: Extraocular movements intact. Conjunctiva/sclera: Conjunctivae normal. Pupils: Pupils are equal, round, and reactive to light. Neck: Thyroid: No thyromegaly. Vascular: No JVD. Cardiovascular: Rate and Rhythm: Normal rate and regular rhythm. Pulses: Normal pulses. Heart sounds: Normal heart sounds. No murmur heard. No friction rub. No gallop. Pulmonary: Effort: Pulmonary effort is normal. No respiratory distress. Breath sounds: Normal breath sounds. No wheezing or rales. Chest: Chest wall: No tenderness. Abdominal: General: Abdomen is flat. Bowel sounds are normal. There is no distension. Palpations: Abdomen is soft. There is no mass. Tenderness: There is no abdominal tenderness. There is no guarding or rebound. Musculoskeletal: General: No swelling or tenderness. Normal range of motion. Cervical back: Normal range of motion and neck supple. Right lower leg: No edema. Left lower leg: No edema. Lymphadenopathy: Cervical: No cervical adenopathy. Skin: General: Skin is warm and dry. Neurological: General: No focal deficit present. Mental Status: She is alert and oriented to person, place, and time. Deep Tendon Reflexes: Reflexes normal. Psychiatric: Mood and Affect: Mood normal. Behavior: Behavior normal. Thought Content: Thought content normal. Judgment: Judgment normal. ECOG Performance Status: 0 - Fully active, able to carry on all pre-disease performance without restriction Pain Scale: 0 Lab Results Component Value Date WBC 9.2 06/26/2025 WBC 9.2 06/26/2025 ADJUSTEDWBC 10.60 12/20/2024 HGB 8.8 (L) 06/26/2025 HCT 26.4 (L) 06/26/2025 PLT 29 (L) 06/26/2025 LDH 241 03/31/2025 CREATININE 0.92 06/26/2025 AST 17 06/26/2025 Assessment/Plan Cancer Staging Non-small cell lung cancer Staging form: Lung, AJCC 8th Edition - Clinical: Stage IV (cTX, cNX, cM1) - Signed by Rachel Soriano MD on 05/20/2023 Stage IV squamous cell carcinoma of lung Staging form: Lung, AJCC 8th Edition - Clinical: Stage IV (cTX, cNX, cM1) - Signed by Rachel Soriano MD on 06/05/2025 1. Non-small cell cancer of right lung Assessment & Plan: 64 y/o smoker female patient with right NSCLC (adenocarcinoma) diagnosed 10/2022 based on EBUS doneon RLL biopsy and 11 R and 7 lymph node stations cytology that all showed adenocarcinoma consistentwith lung primary. PDL-1 highly expressed @ 90%. PET scan 11/13/2022 showed no evidence of disease outside the chest however MRI brain 11/2022 showed multiple brain lesions concerning/suspicious for me tastasis. They are all few millimeters in size. Patient does not have any METHODS ANALYST DATA PROCESSING symptoms. She was seen by radiation oncology. We discussed her case: Plan to proceed with systemic treatment first and reassess. 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 Started TABRECTA?? (capmatinib) 12/11/2022 400 mg bid. Due to kidney impairment and edema, it had to be dose reduced, taking 200 mg twice a day every other day, alternating with 200 mg once a day every other day while on Lasix 20 mg twice a day (along with supplemental potassium) with improvement and good control of her swelling, and with subsequent imaging showing no evidence of disease PET scan 03/2024 with no evidence of disease. MRI brain 04/2024 with no e/o met Routine PET scan 10/2024 showed a RLL mass increased in size and hypermetabolic activity (5.5 SUV) and a hypermetabolic left hilar adenopathy 3.3 SUV. Routine brain MRI done 11/2024 showed enhancing mass in the right middle frontal lobe s/p resection by Dr. Cabrera at the 11/2024 showing metastatic pulmonary adenocarcinoma. PD-L1 expression 40% S/P Gamma knife to Right frontal lobe tumor bed 12/26/24 at Case was discussed at tumor board, consensuses was concurrently chemoradiation followed by immunotherapy. She has been hospitalized for pna from 01/10 to 01/13/25. CTA done while inpt shows stable lung mass. Started carbo/alimta based chemoradiation on 02/20/25. Last XRT 03/23/2025 But radiation stopped with 4treatments short apparently secondary to acute events and/or what felt to be brain metastasis at the time when the brain MRI 02/2025 reported to show PD for which she is status post 5 sessions of whole brain radiation 03/2025. Patient was seen and evaluated by neurosurgery team 03/2025 where her MRI brain from 02/2025 was reviewed and felt to be motion degraded with no evidence of recurrence. She was planned to get another brain MRI rechecked June 2025. Patient admitted yet again following cycle #4 of chemoimmunotherapy even though it was dose reduced. She was also treated for acute stroke. MRI brain while inpatient 05/2025 with no concrete evidence of PD regarding her brain mets. Short interval brain MRI repeated suggested Today, feeling and looking better. Counts improved. Plan: - At this point of time we will hold on any chemo and keep on Keytruda single agent - PET scan scheduled 07/17/2025 -Brain MRI to be repeated late July/early August 2025 - Will check B12 folic acid regarding low platelets. It is overall improving. Will keep an eye -Will coordinate with neurosurgery and [facility] regarding brain imaging - Labs before each treatment - RTC in 3 weeks or sooner if needed 2. Stage IV squamous cell carcinoma of lung, unspecified laterality Overview: Orders: - CBC auto differential; Future - Comprehensive metabolic panel; Future - Manual diff - Vitamin B12; Future - Folate; Future Treatment Details Treatment goal [No plan goal] Plan Name PEMBROLIZUMAB + PEMETREXED / CARBOPLATIN, 21 DAY CYCLES - NON-SMALL CELL LUNG Status Inactive Start Date End Date Provider Rachel Soriano MD Chemotherapy palonosetron (Aloxi) injection 250 mcg, 250 mcg, Intravenous, Once, 0 of 18 cycles fosaprepitant (Emend) 150 mg in sodium chloride 0.9 % 100 mL (1.5 mg/mL) IVPB, 150 mg, Intravenous,Once, 0 of 18 cycles CARBOplatin (Paraplatin) 391.65 mg in sodium chloride 0.9 % 250 mL chemo IVPB, 391.65 mg, Intravenous, Once, 0 of 6 cycles PEMEtrexed (Alimta) 780 mg in sodium chloride 0.9 % 100 mL chemo IVPB, 500 mg/m2, Intravenous, Once, 0 of 18 cycles pembrolizumab (Keytruda) 200 mg in sodium chloride 0.9 % 100 mL chemo IVPB, 200 mg, Intravenous, Once, 0 of 18 cycles Treatment Details Treatment goal [No plan goal] Plan Name CYANOCOBALAMIN 1000 MCG/ML WEEKLY X 4 WEEKS Status Inactive Start Date 11/25/2022 End Date 11/25/2022 Provider Rachel Soriano MD Chemotherapy [No matching medication found in this treatment plan] Treatment Details Treatment goal [No plan goal] Plan Name FLUSH FOR MEDIPORT Status Active Start Date 12/10/2022 End Date Until discontinued Provider Rachel Soriano MD Chemotherapy [No matching medication found in this treatment plan] Treatment Details Treatment goal [No plan goal] Plan Name BANANA BAG (SODIUM CHLORIDE 0.9% WITH MVI, THIAMINE, FOLIC ACID, AND MAGNESIUM) AND HYDRATION FLUIDS - OVER 4 HOURS Status Inactive Start Date 12/18/2022 End Date Provider Rachel Soriano MD Chemotherapy [No matching medication found in this treatment plan] Treatment Details Treatment goal [No plan goal] Plan Name HYDRATION 0.9% SODIUM CHLORIDE Status Inactive Start Date 12/18/2022 End Date 12/18/2022 Provider Rachel Soriano MD Chemotherapy [No matching medication found in this treatment plan] Treatment Details Treatment goal [No plan goal] Plan Name HYDRATION 0.9% SODIUM CHLORIDE Status Inactive Start Date 12/21/2022 End Date 12/21/2022 Provider Pati Rucker NP Chemotherapy [No matching medication found in this treatment plan] Treatment Details Treatment goal [No plan goal] Plan Name HYDRATION 0.9% SODIUM CHLORIDE Status Inactive Start Date 12/24/2022 End Date 12/24/2022 Provider Pati Rucker NP Chemotherapy [No matching medication found in this treatment plan] Treatment Details Treatment goal [No plan goal] Plan Name HYDRATION 0.9% SODIUM CHLORIDE Status Inactive Start Date 01/05/2023 End Date 01/05/2023 Provider Pati Rucker NP Chemotherapy [No matching medication found in this treatment plan] Treatment Details Treatment goal [No plan goal] Plan Name HYDRATION 0.9% SODIUM CHLORIDE Status Inactive Start Date 02/01/2023 End Date 02/01/2023 Provider Rachel Soriano MD Chemotherapy [No matching medication found in this treatment plan] Treatment Details Treatment goal [No plan goal] Plan Name HYDRATION 0.9% SODIUM CHLORIDE Status Inactive Start Date 02/22/2023 End Date 02/22/2023 Provider Rachel Soriano MD Chemotherapy [No matching medication found in this treatment plan] Treatment Details Treatment goal [No plan goal] Plan Name HYDRATION 0.9% SODIUM CHLORIDE Status Inactive Start Date 04/16/2023 End Date 04/16/2023 Provider Pati Rucker NP Chemotherapy [No matching medication found in this treatment plan] Treatment Details Treatment goal [No plan goal] Plan Name HYDRATION 0.9% SODIUM CHLORIDE Status Active Start Date 05/25/2023 End Date Until discontinued Provider Rachel Soriano MD Chemotherapy [No matching medication found in this treatment plan] Treatment Details Treatment goal Control Plan Name PACLitaxel / CARBOplatin with Concurrent Radiation: Induction, Weekly - Non-Small Cell Lung Status Inactive Start Date 02/13/2025 End Date 02/13/2025 Provider Rachel Soriano MD Chemotherapy CARBOplatin (Paraplatin) 142 mg in sodium chloride 0.9 % 250 mL chemo IVPB, 168.4 mg, Intravenous, Once, 1 of 1 cycle Administration: 142 mg (02/13/2025) PACLitaxel (Taxol) 81 mg in sodium chloride 0.9 % 250 mL chemo IVPB, 50 mg/m2 = 81 mg, Intravenous,Once, 1 of 1 cycle Administration: 81 mg (02/13/2025) dexAMETHasone (Decadron) 12 mg in sodium chloride 0.9 % 50 mL IVPB, 12 mg, Intravenous, Once, 1 of 1 cycle Administration: 12 mg (02/13/2025) Treatment Details Treatment goal Curative Plan Name CARBOPLATIN / PEMETREXED WITH CONCURRENT RADIATION, 21-DAY CYCLE - NSCLC Status Inactive Start Date 02/20/2025 End Date 02/20/2025 Provider Rachel Soriano MD Chemotherapy palonosetron (Aloxi) injection 250 mcg, 250 mcg, Intravenous, Once, 0 of 1 cycle fosaprepitant (Emend) 150 mg in sodium chloride 0.9 % 100 mL (1.5 mg/mL) IVPB, 150 mg, Intravenous,Once, 1 of 4 cycles Administration: 150 mg (02/20/2025) CARBOplatin (Paraplatin) 354 mg in sodium chloride 0.9 % 250 mL chemo IVPB, 402 mg, Intravenous, Once, 1 of 4 cycles Administration: 354 mg (02/20/2025) PEMEtrexed (Alimta) 800 mg in sodium chloride 0.9 % 100 mL chemo IVPB, 500 mg/m2 = 810 mg, Intravenous, Once, 1 of 4 cycles Administration: 800 mg (02/20/2025) Treatment Details Treatment goal Control Plan Name PEMBROLIZUMAB + PEMETREXED / CARBOPLATIN, 21 DAY CYCLES - NON-SMALL CELL LUNG Status Active Start Date 03/13/2025 End Date 01/01/2026 (Planned) Provider Rachel Soriano MD Chemotherapy methylPREDNISolone sodium succinate (PF) (SOLU-Medrol) injection 125 mg, 125 mg, Intravenous, Once as needed, 4 of 14 cycles palonosetron (Aloxi) injection 250 mcg, 250 mcg, Intravenous, Once, 4 of 4 cycles Administration: 250 mcg (03/13/2025), 250 mcg (06/05/2025), 250 mcg (04/10/2025), 250 mcg (05/08/2025) pegfilgrastim (Neulasta) injection 6 mg, 6 mg, Subcutaneous, Once, 1 of 1 cycle pegfilgrastim-cbqv (Udenyca) injection 6 mg, 6 mg, Subcutaneous, Once, 2 of 2 cycles Administration: 6 mg (05/09/2025), 6 mg (06/06/2025) fosaprepitant (Emend) 150 mg in sodium chloride 0.9 % 100 mL (1.5 mg/mL) IVPB, 150 mg, Intravenous,Once, 4 of 4 cycles Administration: 150 mg (03/13/2025), 150 mg (06/05/2025), 150 mg (04/10/2025), 150 mg (05/08/2025) CARBOplatin (Paraplatin) 353 mg in sodium chloride 0.9 % 250 mL chemo IVPB, 365 mg, Intravenous, Once, 4 of 4 cycles Dose modification: 329.2 mg (original dose 411.5 mg, Cycle 4), 246.9 mg (original dose 411.5 mg, Cycle 4) Administration: 353 mg (03/13/2025), 246.9 mg (06/05/2025), 348 mg (04/10/2025), 338 mg (05/08/2025) PEMEtrexed (Alimta) 800 mg in sodium chloride 0.9 % 100 mL chemo IVPB, 500 mg/m2 = 800 mg, Intravenous, Once, 4 of 4 cycles Dose modification: 400 mg/m2 (original dose 500 mg/m2, Cycle 4), 200 mg/m2 (original dose 500 mg/m2, Cycle 4) Administration: 800 mg (03/13/2025), 300 mg (06/05/2025), 780 mg (04/10/2025), 600 mg (05/08/2025) pembrolizumab (Keytruda) 200 mg in sodium chloride 0.9 % 100 mL chemo IVPB, 200 mg, Intravenous, Once, 3 of 13 cycles Administration: 200 mg (06/05/2025), 200 mg (04/10/2025), 200 mg (05/08/2025) The medication list for this visit has been reviewed and reconciled. Reviewed by Angela Pa RN (Registered Nurse) on 06/26/25 at 0841 and confirmed by Rachel Soriano MD * Sun Juárez - 06/26/2025 8:37 AM EDTAssociated Problem(s): Non-small cell lung cancer 64 y/o smoker female patient with right NSCLC (adenocarcinoma) diagnosed 10/2022 based on EBUS doneon RLL biopsy and 11 R and 7 lymph node stations cytology that all showed adenocarcinoma consistentwith lung primary. PDL-1 highly expressed @ 90%. PET scan 11/13/2022 showed no evidence of disease outside the chest however MRI brain 11/2022 showed multiple brain lesions concerning/suspicious for me tastasis. They are all few millimeters in size. Patient does not have any METHODS ANALYST DATA PROCESSING symptoms. She was seen by radiation oncology. We discussed her case: Plan to proceed with systemic treatment first and reassess. 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 Started TABRECTA?? (capmatinib) 12/11/2022 400 mg bid. Due to kidney impairment and edema, it had to be dose reduced, taking 200 mg twice a day every other day, alternating with 200 mg once a day every other day while on Lasix 20 mg twice a day (along with supplemental potassium) with improvement and good control of her swelling, and with subsequent imaging showing no evidence of disease PET scan 03/2024 with no evidence of disease. MRI brain 04/2024 with no e/o met Routine PET scan 10/2024 showed a RLL mass increased in size and hypermetabolic activity (5.5 SUV) and a hypermetabolic left hilar adenopathy 3.3 SUV. Routine brain MRI done 11/2024 showed enhancing mass in the right middle frontal lobe s/p resection by Dr. Cabrera at the 11/2024 showing metastatic pulmonary adenocarcinoma. PD-L1 expression 40% S/P Gamma knife to Right frontal lobe tumor bed 12/26/24 at Case was discussed at tumor board, consensuses was concurrently chemoradiation followed by immunotherapy. She has been hospitalized for pna from 01/10 to 01/13/25. CTA done while inpt shows stable lung mass. Started carbo/alimta based chemoradiation on 02/20/25. Last XRT 03/23/2025 But radiation stopped with 4treatments short apparently secondary to acute events and/or what felt to be brain metastasis at the time when the brain MRI 02/2025 reported to show PD for which she is status post 5 sessions of whole brain radiation 03/2025. Patient was seen and evaluated by neurosurgery team 03/2025 where her MRI brain from 02/2025 was reviewed and felt to be motion degraded with no evidence of recurrence. She was planned to get another brain MRI rechecked June 2025. Patient admitted yet again following cycle #4 of chemoimmunotherapy even though it was dose reduced. She was also treated for acute stroke. MRI brain while inpatient 05/2025 with no concrete evidence of PD regarding her brain mets. Short interval brain MRI repeated suggested Today, feeling and looking better. Counts improved. Plan: - At this point of time we will hold on any chemo and keep on Keytruda single agent - PET scan scheduled 07/17/2025 -Brain MRI to be repeated late July/early August 2025 - Will check B12 folic acid regarding low platelets. It is overall improving. Will keep an eye -Will coordinate with neurosurgery and [facility] regarding brain imaging - Labs before each treatment - RTC in 3 weeks or sooner if needed documented in this encounter Miscellaneous Notes * Addendum Note - Rachel Soriano MD - 06/26/2025 9:00 AM EDTAddended by: RACHEL CHOW on: 06/26/2025 12:35 PM Modules accepted: Orders documented in this encounter Plan of Treatment Upcoming Encounters Date Type Department Care Team (Late st Contact Info) Description 08/27/2025 8:45 AM EDT Office Visit [facility] ONCOL[facility]Y PRACTICE [address] [place] [address] Rachel Chow MD [address] [place] [address] 08/28/2025 1:00 PM EDT Office Visit [facility] ORTHOPEDIC PODIATRY PRACTICE [address], 6th [place] [address] Yazan Castro DPM [address] [place] [address] 08/29/2025 10:30 AM EDT Appointment [facility] MEDICAL ONCOLOGY [address], 11th [place] [address] 09/06/2025 1:45 PM EDT Appointment [facility] ULTRASOUND [address], 2nd [place] [address] 09/12/2025 9:30 AM EDT Appointment [facility] MRI BLDG D [address], [facility] [place] [address] 09/28/2025 9:30 AM EST Office Visit [facility] CARDIOLOGY PRACTICE [address], 1st Floor [facility] [place] [address] Ky Jewell MD [address] [facility] [place] [address] 11/05/2025 2:45 PM EST Office Visit [facility] NEUROLOGY PRACTICE [address], 8th [place] [address] Ruddy Mayes MD [facility] [address] [facility] [place] [address] 12/31/2025 11:30 AM EST Office Visit [facility] NEPHROLOGY PRACTICE [address] [phone] 01/22/2026 9:00 AM EDT Office Visit [facility] CARDIOLOGY PRACTICE [address], 1st Floor [facility] [place] [address] Allyn Toribio NP [address] [place] [phone] documented as of this encounter Goals Goal Patient Goal Type Associated Problems Recent Progress Patient-Stated? Author Patient's support system will participate in treatment General Emily Ny documented as of this encounter Procedures Procedure Name Priority Date/Time Associated Diagnosis Comments MANUAL DIFF (REMISOL) Routine 06/26/2025 8:29 AM EDT Stage IV squamous cell carcinoma of lung, unspecified laterality CBC WITH AUTO DIFFERENTIAL Routine 06/26/2025 8:29 AM EDT Stage IV squamous cell carcinoma of lung, unspecified laterality FOLATE Add-On 06/26/2025 8:29 AM EDT Stage IV squamous cell carcinoma of lung, unspecified laterality VITAMIN B12 Add-On 06/26/2025 8:29 AM EDT Stage IV squamous cell carcinoma of lung, unspecified laterality COMPREHENSIVE METABOLIC PANEL Routine 06/26/2025 8:29 AM EDT Stage IV squamous cell carcinoma of lung, unspecified laterality documented in this encounter Results * (ABNORMAL) Folate (06/26/2025 8:29 AM EDT) Pathologist [facility] Folate >27.2(H) 5.9 - 24.8 ng/mL 06/26/2025 12:11 PM EDT [facility] Blood Venous blood specimen / Unknown Venipuncture / Unknown 06/26/2025 8:29 AM EDT 06/26/2025 9:15 AM EDT us Rachel Soriano MD LAB BLOOD ORDERABLES Final Result Performing Organization Address City/[facility]/ZIP Co de Phone Number [facility] [address] [place] [address], * (ABNORMAL) Vitamin B12 (06/26/2025 8:29 AM EDT) Pathologist [facility] Vitamin B-12 >1,537.0(H ) 180.0 - 914.0 pg/mL 06/26/2025 12:11 PM EDT [facility] Blood Venous blood specimen / Unknown Venipuncture / Unknown 06/26/2025 8:29 AM EDT 06/26/2025 9:15 AM EDT us Rachel Soriano MD LAB BLOOD ORDERABLES Final Result [facility] [address] [place] [address], [place] [phone] * (ABNORMAL) Manual diff (06/26/2025 8:29 AM EDT) Segmented neutrophil % 68 47 - 79 % 06/26/2025 9:41 AM [facility] Band neutrophil % 3 0 - 6 % 025 9:41 AM [facility] Metamyelocyte % 1 0 - 2 % 9:41 AM [facility] Lymphocyte % 16 13 - 41 % 06/26/2025 9:41 AM [facility] Monocyte % 12(H) 3 - 11 % 06/26/2025 9:41 AM [facility] Anisocytosis Mild 06/26/2025 9:41 AM [facility] Poikilocytes Mild 06/26/2025 9:41 AM [facility] Platelet Estimate Decreased 025 9:41 AM [facility] Auto WBC 9.2 3.8 - 11.0 10*3/uL 06/26/2025 9:41 AM [facility] Neutrophil # 6.63 3.40 - 7.00 10*3/uL 06/26/2025 9:41 AM [facility] Lymphocyte # 1.47 0.40 - 3.90 10*3/uL 06/26/2025 9:41 AM [facility] Monocyte # 1.10(H) 0.20 - 0.60 10*3/uL 06/26/2025 9:41 AM [facility] Eosinophil # 0.09 0.00 - 0.90 10*3/uL 06/26/2025 9:41 AM [facility] Basophil # 0.00 0.00 - 0.20 10*3/uL 06/26/2025 9:41 AM [facility] Total Counted 199 06/26/2025 9:41 AM [facility] Eosinophil % 1 0 - 6 % 06/26/2025 9:41 AM [facility] WBC Morphology Normal 06/26/2025 9:41 AM [facility] PLT Morphology Normal 06/26/2025 9:41 AM [facility] Blood Venous blood specimen / Unknown Venipuncture / Unknown 06/26/2025 8:29 AM EDT 06/26/2025 8:55 AM EDT Rachel Soriano MD LAB BLOOD BANK TEST ORDERAB LES Final Result [facility] [address] [place] [address], * (ABNORMAL) Comprehensive metabolic panel (06/26/2025 8:29 AM EDT) Sodium 140 134 - 143 mmol/L 06/26/2025 10:22 AM [facility] Potassium 3.3 3.2 - 4.6 mmol/L 06/26/2025 10:22 AM [facility] Chloride 95(L) 99 - 108 mmol/L 06/26/2025 10:22 AM [facility] CO2 37(H) 19 - 29 mmol/L 06/26/2025 10:22 AM [facility] Anion Gap 8 5 - 15 mmol/L 06/26/2025 10:22 AM [facility] BUN 15 7 - 20 mg/dL 06/26/2025 10:22 AM [facility] Creatinine 0.92 <=1.20 mg/dL 06/26/2025 10:22 AM [facility] BUN/Creatinine Ratio 16.30 10.00 - 20.00 ratio 06/26/2025 10:22 AM [facility] Glucose 118(H) 58 - 104 mg/dL 06/26/2025 10:22 AM [facility] Calcium 8.6 7.9 - 11.1 mg/dL 06/26/2025 10:22 AM [facility] AST 17 10 - 28 U/L 06/26/2025 10:22 AM [facility] ALT (SGPT) 14 <=40 U/L 06/26/2025 10:22 AM [facility] Alkaline Phosphatase 78 29 - 108 U/L 06/26/2025 10:22 AM [facility] Total Protein 6.6 5.9 - 7.9 g/dL 06/26/2025 10:22 AM [facility] Albumin 3.1(L) 3.5 - 5.1 g/dL 06/26/2025 10:22 AM [facility] Globulin, Total 3.5 2.4 - 4.8 g/dL 06/26/2025 10:22 AM [facility] A/G Ratio 0.9 0.6 - 1.6 06/26/2025 10:22 AM [facility] Total Bilirubin 0.6 0.3 - 1.0 mg/dL 06/26/2025 10:22 AM [facility] eGFR (CKD-EPI) 65.1 >60.0 - 200.0 mL/min/1.7 3m*2 06/26/2025 10:22 AM [facility] Blood Venous blood specimen / Unknown Venipuncture / Unknown 06/26/2025 8:29 AM EDT 06/26/2025 9:15 AM EDT Rachel Soriano MD LAB BLOOD ORDERABLES Final Result [facility] [address] [place] [address], * (ABNORMAL) CBC auto differential (06/26/2025 8:29 AM EDT) Auto WBC 9.2 3.8 - 11.0 10*3/uL 06/26/2025 9:42 [facility] RBC 2.83(L) 3.73 - 5.13 10*6/uL 06/26/2025 9:42 AM [facility] Hemoglobin 8.8(L) 11.2 - 15.3 g/dL 06/26/2025 9:42 AM [facility] Hematocrit 26.4(L) 32.6 - 44.6 % 06/26/2025 9:42 AM EDT [facility] MCV 93.0 78.8 - 96.0 fL 06/26/2025 9:42 AM EDT [facility] MCH 31.0 26.2 - 33.0 pg 06/26/2025 9:42 AM EDT [facility] MCHC 33.4 32.7 - 35.1 g/dL 06/26/2025 9:42 AM EDT [facility] RDW 18.6(H) 12.1 - 16.1 % 06/26/2025 9:42 AM EDT [facility] MPV 7.4 7.0 - 10.6 fL 06/26/2025 9:42 AM EDT [facility] Platelets 29(L) 138 - 402 10*3/uL 06/26/2025 9:42 AM EDT [facility] Total Counted 199 06/26/2025 9:42 AM EDT [facility] Blood Venous blood specimen / Unknown Venipuncture / Unknown 06/26/2025 8:29 AM EDT 06/26/2025 8:55 AM EDT us Rachel Soriano MD LAB BLOOD ORDERABLES Final Result Performing Organization Address [facility]/State/[facility] Co de Phone Number [facility] [address] [place] [address], documented in this encounter Visit Diagnoses Diagnosis Non-small cell cancer of right lung- Primary Stage IV squamous cell carcinoma of lung, unspecified laterality Non-small cell lung cancer, unspecified laterality documented in this encounter Additional Health Concerns Assessment Noted Time PHQ-9 Depression Total Score: 0 06/23/20 25 10:00 AM EDT documented as of this encounter Care Teams Deck Builder Relationship Specialty Start Date End Date Lizandro Khna NP [address] [place] [address] PCP - General Family Medicine 03/20/25 07/22/25 Rachel Chow MD [address] [place] [address] Consulting Physician Oncology 11/11/22 Pati Rucker APRN [address] [place], [place] [address] Nurse Practitioner Oncology 12/21/22 Sosa Gardner APRN [address] [place] [address] Nurse Practitioner Oncology 06/24/23 Linda Elizabeth DO [address] [place] [address] Consulting Physician Oncology 03/01/25 Elsa Vazquez [address] [place], [place] [address] Nurse Navigator Oncology 06/05/25 07/19/25 Angie Murray, ROLDAN [address] [place] [address] Nurse Navigator Oncology 06/26/25 documented as of this encounter
--- OUTSIDE RECORDS SUMMARY | 2025-06-26 10:30 | XMS_ITS | Encounter Summary ---
Author Organization [facility] Address [address] [place] [address] Care Team Providers Care Point Of Care Specialist Name Role Phone Rachel Pagan MD Unavailable [phone] Pati Rucker MATERIAL ATTENDANT Unavailable [phone] Sosa Gardner MATERIAL ATTENDANT Unavailable [phone] Linda Elizabeth DO Unavailable Lizandro Khan NP Primary Care Provider Elsa Vazquez Unavailable Unavailable Angie Murray RN Unavailable Unavailab le Reason for Visit * Reason Comments Lung Cancer * Auth/Cert (Routine) Specialty Diagnoses / Procedures Referred By Contac t Referred To Contact Diagnoses Malignant neoplasm of unspecified part of unspecified bronchus or lung Procedures [place] PEMETREXED INJECTION [facility] [address] [place] [address] Phone: tel: [facility] MEDICAL ONCOL[facility] [address], 11th [place] [address] Phone: tel: fax: Referral ID Status Reason Start Date Expiration Date Visits Re quested Visits Authorized [id number] 1 1 Encounter Details Date Type Department Care Team (Latest Contact Info) Description 06/26/2025 10:30 AM EDT - 06/26/2025 11:59 PM EDT Hospital Encounter [facility] [address] [place] [address] Non-small cell lung cancer, unspecified laterality Discharge Disposition: Still a Patient [...] How often do you attend chur or latter day services? More than 4 times per year 11/11/2022 Do you belong to any clubs o r organizations such as mandaeism groups, unions, fraternal or athletic groups, or [...] place to sleep or slept in a halfway (including now)? No 11/11/2022 AUDIT-C Answer Date [...] things needed for daily living? No 06/23/2025 [facility] Utilities Answer Date Recorded In the past 12 months has th e electric, gas, oil, or water [employer] threatened to shut off services in your [...] Time Taken Comments Blood Pressure 114/74 06/26/2025 12:16 PM EDT copied from office visit Pulse 83 06/26/2025 12:16 PM EDT Temperature 36.3 C (97.4 F) 06/26/2025 12:16 PM EDT Respiratory Rate 20 06/26/2025 12:1 6 PM EDT Oxygen Saturation - - Inhaled Oxygen Concentration - - Weight 61.1 kg (134 lb 12.8 oz) 06/26/2025 12:16 PM EDT Height - - Body Mass Index 28.17 06/26/2025 8:29 AM [...] 06/22/2025 5 documented as of this encounter Plan of Treatment Upcoming Encounters Date Type Department Care Team (Late st Contact Info) Description 08/27/2025 8:45 AM EDT Office Visit [facility] [address] [place] [address] Rachel Pagan MD [address] [place] [address] 08/28/2025 1:00 PM EDT Office Visit [facility] ORTHOPEDIC PODIATRY PRACTICE [address] [place] [address] Yazan Castro DPM [address] [place] [address] 08/29/2025 10:[address] [facility] MEDICAL ONCOLOGY [address] [place] [address] 09/06/2025 1:[address] [facility] ULTRASOUND [address], 2[address] [place] [address] 09/12/2025 9:[address] [facility] MRI BLDG D [address], [facility] [place] [phone] 09/28/2025 9:30 AM EST Office Visit [facility] CARDIOLOGY PRACTICE [address], 1st [place] [address] Ky Jewell MD [address] [facility] [place] [address] 11/05/2025 2:45 PM EST Office Visit [facility] NEUROLOGY PRACTICE [address], 8[address] [place] [address] Ruddy Mayes MD [facility] [address] [facility] [place] [address] 12/31/2025 11:30 AM EST Office Visit [facility] NEPHROLOGY PRACTICE [address] [phone] 01/22/2026 9:00 AM EDT Office Visit [facility] [address], 1[address] [place] [phone] Allyn Toribio NP [address] [place] [phone] documented as of this encounter Goals Goal Patient Goal Type Associated Problems Recent Progress Patient-Stated? Author Patient's support system will participate in treatment General Emily Ny documented as of this encounter Procedures Procedure Name Priority Date/Time Associated Diagnosis Comments TSH Add-On 06/26/2025 8:29 AM EDT T4, FREE Add-On 06/26/2025 8:29 AM EDT documented in this encounter Results * (ABNORMAL) T4, free (06/26/2025 8:29 AM EDT) Free T4 1.26(H) 0.61 - 1.12 ng/dL 06/26/2025 12:11 PM EDT [facility] Blood Venous blood specimen / Unknown Venipuncture / Unknown 06/26/2025 8:29 AM EDT 06/26/2025 9:15 AM EDT Rachel Soriano MD LAB BLOOD ORDERABLES Final Result Performing Organization Address [facility] de Phone Number [facility] [address] [place] [address], * TSH (06/26/2025 8:29 AM EDT) [facility] TSH 5.066 0.450 - 5.330 uIU/mL 06/26/2025 12:11 PM EDT [facility] Comment: Non-[place] Female: 0.45 - 5.33 IU/mL Female - 1st Trimester: 0.05 - 3.70 IU/mL Female - 2nd Trimester: 0.31 4.35 IU/mL Female - 3rd Trimester: 0.41 5.18 IU/mL Blood Venous blood specimen / Unknown Venipuncture / Unknown 06/26/2025 8:29 AM EDT 06/26/2025 9:15 AM EDT Rachel Soriano MD LAB BLOOD ORDERABLES Final Result Performing Organization Address [facility] Co de Phone Number [facility] [address] [place] [address], documented in this encounter Visit Diagnoses Diagnosis Non-small cell lung cancer, unspecified laterality documented in this encounter Administered Medications Inactive Administered Medications - up to 3 most recent administrations Medication Order MAR Action Action Date Dose Rate Site pembrolizumab (Keytruda) 200 mg in sodium chloride 0.9 % 100 mL chemo IVPB 200 mg, Intravenous, Administer over 30 Minutes, Once, On Wed06/26/25 at 1330, For 1 dose, HAZARDOUS - Handle with care Infuse through a 0.2 to 5 micron sterile, nonpyrogenic, low-protein binding inline or add-on filter. Do not infuse other medications through the same infusion line.Indications:Non-small cell lung cancer, unspecified laterality New Bag 06/26/2025 1:36 PM EDT 200 mg 216 mL/hr documented in this encounter Additional Health Concerns Assessment Noted Time PHQ-9 Depression Total Score: 0 06/23/20 10:00 AM EDT documented as of this encounter Care Teams Point Of Care Specialist Relationship Specialty Start Date End Date Lizandro Khan NP [address] [place] [address] PCP - General Family Medicine 03/20/25 07/22/25 Rachel Pagan MD [address] [facility] [place] [address] Consulting Physician Oncology 11/11/22 Pati Rucker APRN [address] [facility] [place] [address] Nurse Practitioner Oncology 12/21/22 Sosa Gardner APRN [address] [facility] [place] [address] Nurse Practitioner Oncology 06/24/23 Linda Elizabeth DO [address] [place] [address] Consulting Physician Oncology 03/01/25 Elsa Vazquez [address] [place] [address] Nurse Navigator Oncology 06/05/25 07/19/25 Angie Murray, ROLDAN [address] [place] [address] Nurse Navigator Oncology 06/26/25 documented as of this encounter
--- OUTSIDE RECORDS SUMMARY | 2025-06-28 10:00 | XMS_ITS | Encounter Summary ---
Author Organization [facility] nter Address [address] [place] [address] Care Team Providers Care Navigation Officer Name Role Phone Rachel Pagan MD Unavailable [phone] Pati Rucker ADMINISTRATION CLERK Unavailable [phone] Sosa Gardner ADMINISTRATION CLERK Unavailable [phone] Linda Elizabeth DO Unavailable Lizandro Khan NP Primary Care Provider Elsa Vazquez Unavailable Unavailable Angie Murray RN Unavailable Unavailab le Reason for Visit * Reason Comments Chronic kidney disease, stage 2 (mild) Encounter Details Date Type Department Care Team (Late st Contact Info) Description 06/28/2025 10:00 AM EDT Office Visit [facility]Y [facility] [address] [phone] Wesley Urbina MD [address] [place], [place] [id number] Chronic kidney disease, stage 2 (mild) (Primary Dx); Non-small cell cancer of right lung; Chronic combined systolic and diastolic heart failure; Chronic obstructive pulmonary disease, unspecified COPD type Social History Tobacco Use Types Packs/Day Years Used Date Smoking Tobacco: Every Day Cigarettes 0.5 30.7 Started: 2024; Last attempted to quit: 03/18/2025 Passive Smoke Exposure: Past Smokeless Tobacco: Never Tobacco Cessation:Ready to Q uit: No; Counseling Given: No Comments:Offered patient an appointment at the health [...] often do you attend chur ch or faith services? More than 4 times per year 11/11/2022 Do you belong to any clubs o r organizations such as shinto groups, unions, fraternal or athletic groups, or [...] place to sleep or slept in a nursing home (including now)? No 11/11/2022 AUDIT-C Answer Date [...] things needed for daily living? No 06/23/2025 [facility] Utilities Answer Date Recorded In the past [...] Sign Reading Time Taken Comments Blood Pressure 109/67 06/28/2025 9:46 AM EDT Pulse 87 06/28/2025 9:46 AM EDT Temperature 36.4 C (97.5 F) 06/28/2025 9:46 AM EDT Respiratory Rate 20 06/28/2025 9:46 AM EDT Oxygen Saturation 94% 06/28/2025 9:46 AM EDT Inhaled Oxygen Concentration - - Weight 59.9 kg (132 lb) 06/28/2025 9:46 AM EDT Height 147.3 cm (4' 10 ) 06/28/2025 9:46 AM EDT Body Mass Index 27.59 06/28/2025 9:46 AM EDT documented in this encounter Functional [...] documented in this encounter Progress Notes * Wesley Urbina MD - 06/28/2025 10:00 AM EDT Images from the original note were not included. Subjective Patient ID: Jose Sims is a 64 y.o. female who presents for Chronic kidney disease, stage 2 (mild). 06/22/2025 3:07 PM 06/22/2025 7:38 PM 06/23/2025 3:00 AM 06/23/2025 8:33 AM 06/26/2025 8:29 AM 06/26/2025 12:16 PM 06/28/2025 9:46 AM Vitals Systolic 126 109 114 114 109 Diastolic 57 52 74 74 67 Heart Rate 74 73 81 83 83 87 Temp 97.6 ??F (36.4 ??C) 97.9 ??F (36.6 ??C) 97.4 ??F (36.3 ??C) 97.4 ??F (36.3 ??C) 97.5 ??F (36.4??C) Resp 20 20 19 20 20 20 Height (in) 4' 10 (1.473 m) 4' 10 (1.473 m) Weight (lb) 147 134.8 134.8 132 BMI 30.72 kg/m2 28.17 kg/m2 28.17 kg/m2 27.59 kg/m2 BSA (m2) 1.6 m2 1.54 m2 1.54 m2 1.53 m2 Visit Report Report Report Report HPI : Patient is a return visit for follow-up of her kidney disease. She has history of hypertension, COPD, lung cancer with mets to the brain with surgical excision of brain tumor, coronary artery diseasewith history of NC, peripheral vascular disease, and history of ruptured of abdominal aortic aneurysm. Also has history of lower extremity DVT status post IVC filter, bladder mass post TURBT. Serum cr eatinine is stable at 0.92 during her stay in the hospital from May to June 2025, for acute CVA,with GFR of 65 mL/min. Review of Systems Genitourinary: Negative for dysuria, frequency, hematuria and urgency. All other systems reviewed and are negative. PAST MEDICAL HISTORY Past Medical History: Diagnosis Date Atrial fibrillation 11/03/2022 Chronic hypercapnic respiratory failure Chronic kidney disease Clostridioides difficile infection H/O Coronary artery disease DVT (deep venous thrombosis) 2016 History of transfusion Hypertension care home (current) use of anticoagulants Lung cancer with mets to the brain Myocardial infarction Phlebitis and thrombophlebitis of unspecified site Pneumonia 05/15/2025 Pulmonary embolism 2024 PVD (peripheral vascular disease) (HCC) RLS (restless legs syndrome) Ruptured abdominal aortic aneurysm Sepsis due to pneumonia 05/15/2025 Stroke PAST SURGICAL HISTORY Past Surgical History: Procedure Laterality Date BRAIN TUMOR EXCISION 11/[address] CHEST ANGIOGRAM W AND/OR WO IV CONTRAST 01/10/2025 CT CHEST ANGIOGRAM W AND/OR WO IV CONTRAST 01/10/2025 [facility] CT CT CHEST ANGIOGRAM W AND/OR WO IV CONTRAST 03/19/2025 CT CHEST ANGIOGRAM W AND/OR WO IV CONTRAST 03/19/2025 [facility] CT CT CHEST ANGIOGRAM W AND/OR WO IV CONTRAST 05/15/2025 CT CHEST ANGIOGRAM W AND/OR WO IV CONTRAST 05/15/2025 [facility] CT CT HEAD ANGIO 04/24/2024 CT HEAD ANGIO 04/24/2024 [facility] CT CT HEAD ANGIO 02/28/2025 CT HEAD ANGIO 02/28/[address] HEAD ANGIO 06/13/2025 CT HEAD ANGIO 06/13/[address] NECK ANGIO 04/24/2024 CT NECK ANGIO 04/24/[address] NECK ANGIO 02/28/2025 CT NECK ANGIO 02/28/[address] NECK ANGIO 06/13/2025 CT NECK ANGIO 06/13/2025 [facility] CT IR INTERVENTION FILTER PLACEMENT 03/31/2025 IR INTERVENTION FILTER PLACEMENT 03/31/2025 [facility] IR MEDIPORT INSERTION, SINGLE 11/24/2022 FAMILY HISTORY family history includes Coronary artery disease in her father and mother; Diabetes in her father and mother; Heart attack in her brother, father, mother, and sister; Hypertension in her father and mother; Lung cancer in her sister; No Known Problems in her daughter, father's brother, father's sister, maternal grandfather, maternal grandmother, mother's brother, mother's sister, paternal grandfather, paternal grandmother, son, and another family member. Social History: Social History Tobacco Use Smoking status: Every Day Current packs/day: 0.25 Average packs/day: 0.5 packs/day for 30.6 years (15.2 ttl pk-yrs) Types: Cigarettes Start date: 2024 Last attempt to quit: 03/18/2025 Passive exposure: Past Smokeless tobacco: Never Tobacco comments: Offered patient an appointment at the health department for smoking cessation classes. Patient declined. Vaping Use Vaping status: Never Used Substance Use Topics Alcohol use: Never Drug use: Never Ready to quit: No Counseling given: No Tobacco comments: Offered patient an appointment at the health department for smoking cessation classes. Patient declined. Objective Physical Exam Vitals reviewed. Exam conducted with a manager data warehouse present. Constitutional: General: She is not in acute distress. Appearance: Normal appearance. She is well-developed and normal weight. She is not diaphoretic. HENT: Head: Normocephalic and atraumatic. Nose: Nose normal. Eyes: General: No scleral icterus. Extraocular Movements: Extraocular movements intact. Conjunctiva/sclera: Conjunctivae normal. Pupils: Pupils are equal, round, and reactive to light. Cardiovascular: Rate and Rhythm: Normal rate and regular rhythm. Heart sounds: Normal heart sounds. Pulmonary: Effort: Pulmonary effort is normal. Breath sounds: Normal breath sounds. Abdominal: Palpations: Abdomen is soft. Tenderness: There is no abdominal tenderness. Musculoskeletal: Right lower leg: Edema present. Left lower leg: Edema present. Comments: 3+edema Skin: General: Skin is warm and dry. Neurological: General: No focal deficit present. Mental Status: She is alert and oriented to person, place, and time. Psychiatric: Mood and Affect: Mood normal. Behavior: Behavior normal. Thought Content: Thought content normal. Judgment: Judgment normal. Lab Results Component Value Date WBC 9.2 06/26/2025 WBC 9.2 06/26/2025 HGB 8.8 (L) 06/26/2025 HCT 26.4 (L) 06/26/2025 PLT 29 (L) 06/26/2025 CHOL 104 06/13/2025 TRIG 234 (H) 06/13/2025 HDL 31 06/13/2025 ALT 14 06/26/2025 AST 17 06/26/2025 NA 140 06/26/2025 K 3.3 06/26/2025 CL 95 (L) 06/26/2025 CREATININE 0.92 06/26/2025 BUN 15 06/26/2025 CO2 37 (H) 06/26/2025 TSH 5.066 06/26/2025 INR 1.20 (H) 06/13/2025 HGBA1C 5.5 06/13/2025 Assessment and plan 1. Chronic kidney disease, stage 2 (mild) - Renal function panel; Future - Protein / creatinine ratio, urine; Future - CBC auto differential; Future - Urinalysis with microscopic; Future 2. Non-small cell cancer of right lung 3. Chronic combined systolic and diastolic heart failure 4. Chronic obstructive pulmonary disease, unspecified COPD type -Chronic kidney disease stage II: Stable. Patient has multiple risk factors including cardiorenal syndrome. - Non-small cell cancer of right lung with mets to the brain: Stable at present - Congestive heart failure: With peripheral edema on bumetanide twice daily - COPD: Stable at present. Your medication list Accurate as of June 28, 2025 4:36 PM. If you have any questions, ask your nurse or doctor. START taking these medications Instructions bumetanide 2 MG tablet Commonly known as: Bumex Take 1 tablet (2 mg) by mouth in the morning and at bedtime. Hold for systolic blood pressure less than or equal to 100 mmHg CONTINUE taking these medications Instructions atorvastatin 80 MG tablet Commonly known as: Lipitor Take 1 tablet (80 mg) by mouth at bedtime. carvedilol 12.5 MG tablet Commonly known as: Coreg Take 1 tablet (12.5 mg) by mouth with breakfast and with evening meal. Hold for systolic blood pressure less than or equal to 100 mmHg or heart rate less than or equal to 60 bpm cyancobalamin 500 MCG tablet Commonly known as: Vitamin B-12 Take 1 tablet (500 mcg) by mouth in the morning. Do not take morning of procedure DULoxetine [address] capsule Commonly known as: Cymbalta Take 1 capsule (60 mg) by mouth in the morning. empagliflozin 10 MG Commonly known as: Jardiance Take 1 tablet (10 mg) by mouth in the morning. folic acid 1 MG tablet Commonly known as: Folvite Take 1 tablet (1 mg) by mouth in the morning. gabapentin 800 MG tablet Commonly known as: Neurontin Take 0.5 tablets (400 mg) by mouth in the morning and at bedtime. Take morning of procedure ipratropium-albuterol 0.5-2.5 mg/3 mL nebulizer solution Commonly known as: Duo-Neb Take 3 mL by nebulization every 6 (six) hours if needed for wheezing. isosorbide mononitrate 20 MG tablet Take 1 tablet (20 mg) by mouth in the morning and at bedtime. Hold for systolic blood pressure lessthan or equal to 100 mmHg magnesium oxide tablet Commonly known as: Mag-Ox Take 2 tablets (800 mg) by mouth in the morning and at bedtime. melatonin 3 MG tablet Take 2 tablets (6 mg) by mouth at bedtime. metFORMIN 500 MG tablet Commonly known as: Glucophage Take 1 tablet (500 mg) by mouth with breakfast and with evening meal. pantoprazole 40 MG EC tablet Commonly known as: ProtoNix Take 1 tablet (40 mg) by mouth before breakfast. Do not crush, chew, or split. potassium chloride CR 20 MEQ ER tablet Commonly known as: Klor-Con M20 Take 1 tablet (20 mEq) by mouth in the morning and at bedtime. valproic acid 250 MG/5ML oral liquid Commonly known as: Depakene Take 5 mL (250 mg) by mouth every 8 (eight) hours. documented in this encounter Plan of Treatment Upcoming Encounters Date Type Department Care Team (Late st Contact Info) Description 08/27/2025 8:45 AM EDT Office Visit [facility] [address] [place] [address] Rachel Pagan MD [address] [place] [address] 08/28/2025 1:00 PM EDT Office Visit [facility] ORTHOPEDIC PODIATRY PRACTICE [address] [place] [address] Yazan Castro DPM [address] [place] [address] 08/29/2025 10:30 AM EDT Appointment [facility] MEDICAL ONCOLOGY [address] [place] [phone] 09/06/2025 1:45 PM EDT Appointment [facility] ULTRASOUND [address] [place] [phone] 09/12/2025 9:30 AM EDT Appointment [facility] MRI BLDG D [address], [place] [address] 09/28/2025 9:30 AM EST Office Visit [facility] CARDIOLOGY PRACTICE [address] [place] [facility] [place] [phone] Ky Jewell MD [facility] [address] [facility] [address] [place] [place] [phone] 11/05/2025 2:45 PM EST Office Visit [facility] NEUROLOGY PRACTICE [address] [place] [phone] Ruddy Mayes MD [facility] [address] [facility] [address] [place] [phone] 12/31/2025 11:30 AM EST Office Visit [facility] NEPHROLOGY [facility]ACT[facility] [address] [phone] 01/22/2026 9:00 AM EDT Office Visit [facility]ARDIOLOGY PRACT[facility] [address] [place] [phone] Allyn Toribio NP [address] [place] [address] Scheduled Orders Name Type Priority Associated Diagnoses Orde r Schedule Renal function panel Lab Routine Chronic kidney disease, stage 2 (mild) Expected: 12/29/2025 (Approximate), Expires: 06/28/2026 Protein / creatinine ratio, urine Lab Routine Chronic kidney disease, stage 2 (mild) Expected: 12/29/2025 (Approximate), Expires: 06/28/2026 CBC auto differential Lab Routine Chronic kidney disease, stage 2 (mild) Expected: 12/29/2025 (Approximate), Expires: 06/28/2026 Urinalysis with microscopic Lab Routine Chronic kidney disease, stage 2 (mild) Expected: 12/29/2025 (Approximate), Expires: 06/28/2026 documented as of this encounter Goals Goal Patient Goal Type Associated Problems Recent Progress Patient-Stated? Author Patient's support system will participate in treatment General Emily Ny documented as of this encounter Visit Diagnoses Diagnosis Chronic kidney disease, stage 2 (mild)- Primary Non-small cell cancer of right lung Chronic combined systolic and diastolic heart failure Chronic obstructive pulmonary disease, unspecified COPD type documented in this encounter Additional Health Concerns Assessment Noted Time PHQ-9 Depression Total Score: 0 06/23/20 10:00 AM EDT documented as of this encounter Care Teams Navigation Officer Relationship Specialty Start Date End Date Lizandro Khan NP [address] [place] [address] PCP - General Family Medicine 03/20/25 07/22/25 Rachel Pagan MD [address] [place] [address] Consulting Physician Oncology 11/11/22 Pati Rucker APRN [address] [place] [address] Nurse Practitioner Oncology 12/21/22 Sosa Gardner APRN [address] [place] [address] Nurse Practitioner Oncology 06/24/23 Linda Elizabeth DO [address] [place] [address] Consulting Physician Oncology 03/01/25 Elsa Vazquez [address] [place] [address] Nurse Navigator Oncology 06/05/25 07/19/25 Angie Murray, RN [address] [place] [address] Nurse Navigator Oncology 06/26/25 documented as of this encounter
--- OUTSIDE RECORDS SUMMARY | 2025-07-09 18:08 | XMS_ITS | Encounter Summary ---
Author Organization Healthcare Address [address] [place] [address] Care Team Providers Care Quality Control Assistant Name Role Phone Italo Camejo VICKY Primary Care Provider [phone] Reason for Visit * Reason Comments Multiple Complaints Encounter Details Date Type Department Care Team (Late st Contact Info) Description 07/09/2025 6:08 PM EDT - 07/10/2025 2:34 AM EDT Emergency [facility] Emergency Department [address] [place] [address] Kenan Luna MD [address] [facility] [address] [place] [address] Channing Cheney MD [address] [place] [address] Altered mental status, unspecified altered mental status type (Primary Dx); UTI symptoms Discharge Disposition: Home or Self Care Social History Tobacco Use Types Packs/Day Years Used Date Smoking Tobacco: Every Day Cigarettes 0.5 30.8 Started: 11/17/1994 Smokeless Tobacco: Never Alcohol Use Standard Drinks/Week Comments Never 0 (1 standard drink = 0.6 oz pur e alcohol) Comments No Sex and Gender Information Value Date Recorded Sex Assigned at Female 07/09/2025 6:09 PM EDT Legal Sex Female 1:21 PM EST Gender Identity Not on file Sexual Orientation Not on file documented as of this encounter Last Filed Vital Signs Vital Sign Reading Time Taken Comments Blood Pressure 106/70 07/10/2025 1:10 AM EDT Pulse 79 07/10/2025 1:10 AM EDT Temperature 36.4 C (97.6 F) 07/10/2025 1:10 AM EDT Respiratory Rate 18 07/10/2025 1:10 AM EDT Oxygen Saturation 95% 07/10/2025 1:10 AM EDT Inhaled Oxygen Concentration - - Weight 61.2 kg (135 lb) 07/09/2025 4:39 PM EDT Height 147.3 cm (4' 10 ) 07/09/2025 4:39 PM EDT Body Mass Index 28.22 07/09/2025 4:39 PM EDT documented in this encounter Functional Status * Calculated C-SSRS Risk Score (Lifetime/Recent) Answer Date of Assessment Author No Risk Indicated 07/09/2025 6:43 PM EDT Yared Oconnor RN * Question Answer Date of Assessment Author 1. Wish to be (Past 1 Month) No 6:43 PM EDT Edelmira Oconnor RN 2. Non-Specific Active Suici allan Thoughts (Past 1 Month) No 07/09/2025 6:43 PM EDT Edelmira Oconnor RN 6. Suicidal Behavior (Lifetime) No 6:43 PM EDT Edelmira Oconnor RN documented as of this encounter Discharge Instructions * Discharge Instructions* Weston Garcia DO - 07/10/2025 1:48 AM EDT You were seen in the emergency department for altered mental status. This may have been due to the UTI and volume depletion. Please take the antibiotic medication cefadroxil, as prescribed. Take 2 tablets, twice daily, for 7 days. If you develop itching, you may use benadryl for treatment. Please return to the emergency department if you experience continued altered mental status. documented in this encounter Medications at Time of Discharge albuterol (Proventil) (2.5 MG/3ML) 0.083% nebulizer solution inhale ONE vial (3ml) via nebulizer EVERY 6 HOURS NEEDED FOR 10 DAYS 11/28/2024 bumetanide (Bumex) 2 MG tablet Take 1 tablet by mouth twice a day. 01/18/2025 busPIRone (Buspar) 5 MG tablet Take 1 tablet (5 mg) by mouth 2 (two) times a day. cyclobenzaprine (Flexeril) 10 MG tablet Take 1 tablet (10 mg) by mouth at night if needed for muscle spasms. dexamethasone (Decadron) 4 MG tablet Take 2 tablets by mouth 2 times a day. 03/26/2025 diphenoxylate-atr opine (Lomotil) 2.5-0.025 MG tablet Take 1 tablet by mouth 4 times a day as needed. 02/28/2025 DULoxetine (Cymbalta) [address] capsule Take 1 capsule (60 mg) by mouth 1 (one) time each day. Do not crush or chew. empagliflozin (Jardiance) 10 MG Take 1 tablet by mouth 1 time each day. 06/22/2025 folic acid (Folvite) 1 MG tablet Take 1 tablet (1 mg) by mouth 1 (one) time each day. gabapentin (Neurontin) 400 MG capsule Take 2 capsules (800 mg) by mouth 2 (two) times a day. Take 1 capsule (400 mg) by mouth daily at lunch in addition to the 800 mg BID doses. 35 capsule 11/22/2024 gabapentin (Neurontin) 800 MG tablet take 1 tablet by mouth three times daily as directed 03/26/2025 ipratropium-albut nikolai (Duo-Neb) 0.5-2.5 mg/3 mL nebulizer solution 3 mL every 6 hours as needed. 06/22/2025 isosorbide mononitrate 20 MG tablet Take 1 tablet (20 mg) by mouth twice a day. 07/06/2024 levETIRAcetam (Keppra) 500 MG tablet Take 2 tablets (1,000 mg) by mouth 2 (two) times a day. 120 tablet 11/22/2024 loratadine (Claritin) 10 MG tablet Take 1 tablet by mouth daily. 02/27/2025 metFORMIN (Glucophage) 500 MG tablet Take 1 tablet by mouth daily with breakfast and dinner. 01/13/2025 montelukast (Singulair) 10 MG tablet Take 1 tablet (10 mg) by mouth every night. ondansetron (Zofran) 8 MG tablet Take 1 tablet by mouth every 8 hours as needed for nausea or vomiting. 03/13/2025 pantoprazole (Protonix) 40 MG EC tablet Take 1 tablet by mouth daily. 02/26/2025 potassium chloride ER (Micro-K) 10 MEQ ER capsule take 1 capsule by mouth twice daily with food 06/04/2025 prochlorperazine (Compazine) 10 MG tablet take 1 tablet by mouth every 6 hours as needed for nausea or vomiting 03/13/2025 sertraline (Zoloft) 100 MG tablet Take 1 tablet (100 mg) by mouth 1 (one) time each day. Take with 25mg tab for total daily dose of 125mg daily topiramate (Topamax) 100 MG tablet Take 1 tablet (100 mg) by mouth 1 (one) time each day. valproic acid (Depakene) 250 MG/5ML oral liquid Take 5 mL by mouth 3 times a day. 06/22/2025 Xarelto 2.5 MG tablet Take 1 tablet by mouth 2 times a day. 02/27/2025 sulfamethoxazole- trimethoprim (Bactrim DS) 800-160 MG tabletIndications :UTI symptoms Take 1 tablet by mouth 2 times a day for 7 days. 14 tablet 07/12/2025 5 cefadroxil (Duricef) 500 MG capsuleIndication s:Altered mental status, unspecified altered mental status type,UTI symptoms Take 2 capsules by mouth 2 times a day for 7 days. 28 capsule 07/10/2025 5 cefadroxil (Duricef) 500 MG capsuleIndication s:Altered mental status, unspecified altered mental status type,UTI symptoms Take 2 capsules by mouth 2 times a day for 7 days. 28 capsule 07/11/2025 5 cefadroxil (Duricef) 500 MG capsuleIndication s:Altered mental status, unspecified altered mental status type,UTI symptoms Take 2 capsules by mouth 2 times a day for 7 days. 28 capsule 07/12/2025 5 predniSONE (Deltasone) 20 MG tablet TAKE 1 Tablet BY MOUTH EVERY MORNING FOR 5 DAYS 03/21/2025 5 documented as of this encounter Miscellaneous Notes * ED Notes - Gladys Renteria - 07/09/2025 7:00 PM EDT Assumed care of patient and report received. * ED Provider Notes - Rebecca Hamilton DO - 07/09/2025 4:12 PM EDT - HPI Chief Complaint Patient presents with Multiple Complaints PIT NOTE Jose Sims is a 64 y.o. female who presents to the ED with multiple complaints. Pt c/o SOA and numbness in left hand. Family reports concern for pt appearing pale, fatigued, and more confused. Family states pt fell onto her face at the end of May and was dx with stroke at OSH. Family states pthas been living with her since then and she was told to look out for pt current sx. Pt reports H lung cancer and is currently receiving immunotherapy with last June 28. Patient has no other complaints at this time. Main ED note This is a 64-year-old female with history of lung cancer with known brain metastasis who presents emergency department for pallor, fatigue, and confusion. The daughter is very concerned about acute onset confusion more so beginning today. The patient has reportedly had a chronic cognitive decline over the past 2-3 months. They do note a recent diagnosis of stroke earlier this year. Patient currently denies any headache, vision changes, chest pain, shortness of breath, abdominal pain, or fever. She does state that she feels bad , potentially with some nausea. She states she eats whenever I feel like it . History provided by: Patient and caregiver sign language interpreter used: No Patient History Past Medical History[1] Surgical History[2] Family History[3] Social History[4] Allergies: Allergies[5] Physical Exam ED Triage Vitals [07/09/25 1639] Temp Heart Rate Resp BP 36.3 ??C (97.4 ??F) 81 18 95/62 SpO2 Temp Source Heart Rate Source Patient Position 94 % Oral -- -- BP Location FiO2 (%) -- -- Physical Exam Vitals and nursing note reviewed. Constitutional: General: She is not in acute distress. Appearance: She is well-developed. HENT: Head: Normocephalic and atraumatic. Comments: No facial swelling Mouth/Throat: Mouth: Mucous membranes are moist. Pharynx: Oropharynx is clear. Eyes: Conjunctiva/sclera: Conjunctivae normal. Cardiovascular: Rate and Rhythm: Normal rate and regular rhythm. Heart sounds: Murmur heard. Pulmonary: Effort: Pulmonary effort is normal. No respiratory distress. Breath sounds: Normal breath sounds and air entry. Comments: Speaking full sentences. Symmetric chest rise Abdominal: General: There is no distension. Palpations: Abdomen is soft. Tenderness: There is no abdominal tenderness. Musculoskeletal: General: No swelling or deformity. Normal range of motion. Cervical back: Normal range of motion and neck supple. Comments: Atraumatic, moves all extremities spontaneously Skin: General: Skin is warm and dry. Capillary Refill: Capillary refill takes less than 2 seconds. Coloration: Skin is pale. Neurological: Mental Status: She is alert and oriented to person, place, and time. Mental status is at baseline. Comments: Awake Psychiatric: Mood and Affect: Mood normal. Behavior: Behavior normal. Alviso Coma Scale Score: 14 ED Course & MDM -Date/Time: 07/09/2025 11:57 PM Scribe Attestation: This note was dictated to me, Leeann Koenig, acting as a scribe for Steve Blood MD. Attending Attestation: The documentation was recorded by Leeann Koenig acting as scribe in my presence at the time of the encounter and accurately reflects the service I personally performed. Assessment: 64 y.o. female presents to ED with complaint of fatigue and confusion. It should be noted that the chronic conditions includes metastatic cancer on immunotherapy, which currently is at goal therapy. This complicates the clinical picture because it Comorbidities: increases the amount and complexity of data to be reviewed Differential Diagnosis: Viral illness, cancer related fatigue, intracranial hemorrhage, stroke, worsening metastatic burden, YUMIKO, hypoglycemia, UTI, severe electrolyte abnormality, volume depletion On my initial assessment, the patient is mildly hypotensive with systolics in the mid 90s. She is mentating very well without concurrent tachycardia or hypoxia. She is afebrile. CBC shows no leukocytosis. There is a chronic stable anemia and thrombocytopenia. CMP shows creatinine of 1.21, which is elevated from apparent baseline of 0.9. No severe electrolyte abnormalities. Initial lactate is 5.0. With respect to her lactic acidosis, clinical symptoms are not consistent with seizure. No known recent alcohol or drug use. CT head shows no acute findings on my read, radiology reads in agreement. Overall clinical picture is consistent with volume depletion. Patient will be on 1 L of lactated Ringer's. On reassessment, blood pressures have improved now with systolics approximally 110-120. Patient states she feels better. CXR shows a hyperdense lesion in the right lung base potentially concerning for infection. The patient a truly has no infectious symptoms including fever, leukocytosis, cough, nasal congestion, chestpain, or abdominal pain. There are no previous chest x-rays available for review, however there is documentation of a chronic right lower lobe opacity that could be consistent with her malignancy. Overall clinical picture is not in favor of treating this as a pneumonia at this point in time. In order to fully explore the differential diagnosis the following treatments and tests were ordered: ED Medication Administration from 07/09/2025 1612 to 07/09/2025 2357 Date/Time Order Dose Route Action 07/09/2025 2134 EDT lactated Ringer's infusion 1,000 mL 1,000 mL Intravenous New Bag 07/09/2025 2250 EDT acetaminophen (Tylenol) tablet 1,000 mg 1,000 mg Oral Given 07/09/2025 2250 EDT oxyCODONE (Roxicodone) immediate release tablet 5 mg 5 mg Oral Given All Other Orders Ordered Status Ordering Provider 07/09/25 2301 Creatine Kinase (CK), Total STAT In process KENAN LUNA Yared 07/09/25 2219 Ethyl Alcohol, Plasma STAT Acknowledged REBECCA HAMILTON 07/09/251948 Blood gas panel, venous STAT Final result REBECCA HAMILTON 07/09/251948 Urinalysis with reflex microscopic AND reflex culture (IF UTI SUSPECTED) STAT Acknowledged REBECCA HAMILTON 07/09/251948 Urinalysis with reflex microscopic (Culture NOT Included) PROCEDURE ONCE Ordered REBECCA HAMILTON 07/09/251948 Urine Whitman Panel PROCEDURE ONCE Ordered REBECCA HAMILTON 07/09/251806 Hepatitis C Antibody - ED Once Final result STEVE BLOOD 07/09/251806 ED Protocol - HIV 1/2 Antibody/Antigen Screen Once Final result STEVE BLOOD 07/09/251806 ED HIV 1/2 Antibody/Antigen Screen w/Reflex to HIV 1/2 Differentiation PROCEDURE ONCE Final result STEVE BLOOD 07/09/25 180 XR Chest 1 View One time imaging Final result STEVE BLOOD 07/09/[address] Head wo IV Contrast Once Final result STEVE BLOOD 07/09/25 180 CMP STAT Final result STEVE BLOOD 07/09/25 180 CBC STAT Final result STEVE BLOOD 07/09/25 1807 Magnesium STAT Final result STEVE BLOOD 07/09/25 180 Phosphorus STAT Final result STEVE BLOOD 07/09/251806 Type and screen Start now Final result STEVE BLOOD 07/09/25 180 Lactic acid, venous STAT Final result STEVE BLOOD 07/09/25 180 PT-INR STAT Final result STEVE BLOOD 07/09/25 180 APTT STAT Final result STEVE BLOOD Social Determinates of Health Risks (including Economic Stability, Education and level of understanding, Healthcare access and quality and concerning social factors): None identified on this visit Ultimately, this patient was was signed out to the [facility] provider (Signed Out) Patient care assumed by [facility] provider, Dr. Garcia, at shift change, tentative plan at the time of sign-out was follow up urinalysis and pending lab work, likely discharge home ED Prescriptions None - [1] Past Medical History: Diagnosis Date Cancer (CMS/HCC) COPD (chronic obstructive pulmonary disease) (CMS/HCC) Coronary artery disease Hypertension Lung cancer (CMS/HCC) Presence of IVC filter Stroke (CMS/HCC) [2] Past Surgical History: Procedure Laterality Date CRANIOTOMY [3] Family History Problem Relation Name Age of Onset Heart disease Mother Diabetes Mother Coronary artery disease Mother Hypertension, benign Mother Coronary artery disease Father Hypertension, benign Father Heart disease Father Diabetes Father Heart disease Sister Cancer Sister Heart disease Brother [4] Tobacco Use Smoking status: Every Day Current packs/day: 0.50 Average packs/day: 0.5 packs/day for 30.6 years (15.3 ttl pk-yrs) Types: Cigarettes Start date: 11/17/1994 Smokeless tobacco: Never Substance Use Topics Alcohol use: Never Drug use: Never [5] Allergies Allergen Reactions Cephalexin Itching Ciprofloxacin Nausea Rebecca Hamilton DO Resident 07/09/25 8710 Cosigned by Kenan Luna MD at 07/10/2025 11:16 PM EDT Associated attestation - Kenan Luna MD - 07/10/2025 11:16 PM EDT I saw and evaluated the patient with the resident/fellow. I discussed the case with the resident/fellow and agree with the findings and plan as documented. * ED Triage Notes - Teresa Hoyos RN - 07/09/2025 4:12 PM EDT Daughter reports that she has been having intermittent confusion with increase fatigue since yesterday. Pt is A&O x4 in the lobby. * Progress Notes - Weston Garcia DO - 07/09/2025 4:12 PM EDT ED TRANSFER OF CARE NOTE Transferring provider: Joy Transferring attending: Cyndi GARCIA Time: 4936 I received sign-out and accepted care of this patient from the previous ED providers caring for this patient. I reviewed the patient's history, exam, work- up, and treatment plan up to this point. Please see the primary ED Provider Note for complete elements of the history, physical exam, and ED course. PERTINENT HISTORY: In brief, Jose Sims is a 64 y.o. female with relevant PMH Brain mass, Lung cancer who presented to the ED for evaluation of ams. CT determined no new findings. She did not appear altered on exam. She has been hypotensive and lactate of 5. Lactate down to 2 after fluids. PENDING: I accepted care of this patient from the previous provider Urinalysis ultimately revealed concerns for a UTI, patient would benefit from antibiotic treatment due to her AMS. ED Medication Administration from 07/09/2025 1612 to 07/09/2025 2242 Date/Time Order Dose Route Action 07/09/2025 2134 EDT lactated Ringer's infusion 1,000 mL 1,000 mL Intravenous New Bag ED COURSE: ED Course as of 07/10/255 WedJul 10, 2025 0153 Urinalysis with reflex microscopic AND reflex culture (IF UTI SUSPECTED)(!) Urinalysis concerning for a UTI causing her AMS. Will treat with antibiotics. [YK] 0243 I spoke with patient and her daughter about today's findings. We discussed if symptoms do not resolve after antibiotic course is finished, Pt may benefit from further work up for AMS. [YK] ED Course User Index [YK] Weston Garcia DO Clinical Impressions as of 07/10/25244 Altered mental status, unspecified altered mental status type UTI symptoms Ultimately, this patient Was discharged Home (Discharge) The primary encounter diagnosis was Altered mental status, unspecified altered mental status type. A diagnosis of UTI symptoms was also pertinent to this visit. . Patient was counseled onthe diagnoses. Discharge medications if any are listed below. Listed medications are thought be either curative for listed diagnoses or will help control ongoing symptoms. Patient is requested to follow up with Patient's Primary Care Provider in order to obtain routine follow-up and further diagnostic testing. Instructions on follow up as well as precautions to return to the ER provided verbally by the EM provider, as well as written in patients discharge education packet. ED Prescriptions None - Weston Garcia DO Cosigned by Channing Cheney MD at 07/10/2025 3:01 AM EDT Associated attestation - Channing Cheney MD - 07/10/2025 3:01 AM EDT I saw and evaluated the patient with the resident/fellow. I discussed the case with the resident/fellow and agree with the findings and plan as documented. documented in this encounter Plan of Treatment Not on file documented as of this encounter Procedures Procedure Name Priority Date/Time Associated Diagnosis Comments ETHYL ALCOHOL PLASMA STAT 07/10/2025 12:20 AM EDT SEND BETSY MESSAGE STAT 07/10/2025 12 :09 AM EDT URINALYSIS WITH REFLEX MICROSCOPIC AND CULTURE STAT 07/10/2025 12:09 AM EDT URINE WHITMAN PANEL STAT 07/10/2025 12:0 9 AM EDT URINALYSIS MICROSCOPIC FOR UA REFLEX STAT 07/10/2025 12:09 AM EDT URINALYSIS WITH REFLEX MICROSCOPIC STAT 07/10/2025 12:09 AM EDT URINE CULTURE STAT 07/10/2025 12:09 AM EDT BLOOD GAS PANEL, VENOUS STAT 07/09/20 9:25 PM EDT XR CHEST 1 VIEW STAT 07/09/2025 8:[address] HEAD WO IV CONTRAST STAT 7:46 PM EDT ED HIV 1/2 ANTIBODY/ANTIGEN SCREEN WITH REFLEX TO HIV I/II DIFFERENTIATION STAT 07/09/2025 6:33 PM EDT ED PROTOCOL HIV 1/2 ANTIBODY/ANTIGEN SCREEN W/REFLEX TO HIV 1/2 ANTIBODY DIFFERENTIATION STAT 07/09/2025 6:33 PM EDT LACTATE, VENOUS STAT 07/09/2025 6:33 PM EDT CREATINE KINASE, TOTAL, PLASMA STAT Add-on 07/09/2025 6:33 PM EDT HEPATITIS C ANTIBODY - ED W/REFLEX TO HCV QUANT PCR STAT 07/09/2025 6:33 PM EDT APTT STAT 07/09/2025 6:33 PM EDT PROTHROMBIN TIME(PT) / INR STAT 07/09/2025 6:33 PM EDT CBC W/O DIFFERENTIAL STAT 07/09/2025 6:33 PM EDT TYPE AND SCREEN STAT 07/09/2025 6:33 PM EDT PHOSPHORUS, PLASMA STAT 07/09/2025 6: 33 PM EDT MAGNESIUM, PLASMA STAT 07/09/2025 6:3 3 PM EDT COMPREHENSIVE METABOLIC PANEL, PLASMA STAT 07/09/2025 6:33 PM EDT documented in this encounter Results * Ethyl Alcohol, Plasma (07/10/2025 12:20 AM EDT) Ethanol Plasma <10 <10 mg/dL 07/10/2025 12:58 AM EDT [facility] Blood Venous blood specimen / Unknown Venipuncture / Unknown 07/10/2025 12:20 AM EDT 07/10/2025 12:26 AM EDT Narrative [facility] - 07/10/2025 12:58 AM EDT Enzymatic Assay: Performed on [employer] us Kenan Luna MD LAB BLOOD ORDERABLES Final Res ult Performing Organization Address [facility] Co de Phone Number [facility] [address] [place] [address] * SEND BETSY MESSAGE (07/10/2025 12:09 AM EDT) Urine Urine specimen obtained by clean catch procedure / Unknown Non-blood Collection / Unknown 07/10/2025 12:09 AM EDT 07/10/2025 12:24 AM EDT us Kenan Luna MD LAB URINE ORDERABLES Final Res ult Performing Organization Address City/[facility]/ZIP Co de Phone Number [facility] [address] [place] [address] * (ABNORMAL) Urine Culture (07/10/2025 12:09 AM EDT) Culture >=100,000 CFU/mL Klebsiella pneumoniae(A) ELIUD 07/12/2025 12:01 PM EDT [facility] Comment:This isolate has bee n identified using the FDA Approved [employer] [place] System Urine Urine specimen obtained by clean catch procedure / Unknown Non-blood Collection / Unknown 07/10/2025 12:09 AM EDT 07/10/2025 12:24 AM EDT Narrative Organism Antibiotic Method Susceptibility Klebsiella pneumoniae Amoxicillin/Clavulanate ELIUD 16/8 ug/ml: Intermediate Klebsiella pneumoniae Ampicillin ELIUD >16 ug/ml: Resistant Klebsiella pneumoniae Ampicillin/Sulbactam ELIUD >16/8 ug/ml: Resistant Klebsiella pneumoniae Aztreonam ELIUD <=2 ug/ml: Susceptible Klebsiella pneumoniae Cefazolin ELIUD >16 ug/ml: Resistant Comment:Breakpoints when cefazolin is used for therapy of uncomplicated UTIs due to E. coli, K. pneumoniae, and P. mirabilis. Breakpoints are based on a dosage regimen of 1 g administered every 12 hours. Cefazolin should be used as a surrogate to predict susceptibility for all oral cephalosporins (including cephalexin and cefdinir) to E. coli, Klebsiella spp., and P. mirabilis isolated from the urine. Klebsiella pneumoniae Cefepime ELIUD <=0.5 ug/ml: Susceptible Klebsiella pneumoniae Ceftriaxone ELIUD <=1 ug/ml: Susceptible Klebsiella pneumoniae Ciprofloxacin ELIUD <=0.25 ug/ml: Susceptible Klebsiella pneumoniae Ertapenem ELIUD <=0.25 ug/ml: Susceptible Klebsiella pneumoniae Gentamicin ELIUD <=2 ug/ml: Susceptible Klebsiella pneumoniae Levofloxacin ELIUD <=0.25 ug/ml: Susceptible Klebsiella pneumoniae Meropenem LEIUD <=0.5 ug/ml: Susceptible Klebsiella pneumoniae Nitrofurantoin ELIUD >64 ug/ml: Resistant Klebsiella pneumoniae Piperacillin/Tazobactam ELIUD >64/4 ug/ml: Resistant Klebsiella pneumoniae Tetracycline ELIUD >8 ug/ml: Resistant Klebsiella pneumoniae Tobramycin ELIUD <=2 ug/ml: Susceptible Klebsiella pneumoniae Trimethoprim/Sulfa methoxazol e ELIUD <=0.5/9.5 ug/ml: Susceptible us Kenan M Woolum MD LAB MICROBIOLOGY - GENERAL ORD ERABLES Final Result Performing Organization Address [facility]/ZIP Co de Phone Number [facility] [address] [place] [address] * Urinalysis Microscopic Examination (07/10/2025 12:09 AM EDT) Urine Urine specimen obtained by clean catch procedure / Unknown Non-blood Collection / Unknown 07/10/2025 12:09 AM EDT 07/10/2025 12:15 AM EDT us Kenan Luna MD LAB URINE ORDERABLES Final Res ult Performing Organization Address City/[facility]/ZIP Co de Phone Number [facility] [address] [place] [address] * Urine Whitman Panel (07/10/2025 12:09 AM EDT) Extra Sent for Culture 07/10/2025 2:01 AM EDT [facility] Urine Urine specimen obtained by clean catch procedure / Unknown Non-blood Collection / Unknown 07/10/2025 12:09 AM EDT 07/10/2025 12:24 AM EDT us Kenan Luna MD LAB URINE ORDERABLES Final Res ult Performing Organization Address [facility] de Phone Number [facility] [address] [place] [address] * (ABNORMAL) Urinalysis with reflex microscopic (Culture NOT Included) (07/10/2025 12:09 AM EDT) Color, Urine Yellow LAB URINALYSIS - AUTOMATED METHOD 07/10/2025 12:48 AM EDT [facility] Clarity, Urine Cloudy LAB URINALYSIS - AUTOMATED METHOD 07/10/2025 12:48 AM EDT [facility] Spec Cement, Urine 1.013 1.005 - 1.030 LAB URINALYSIS - AUTOMATED METHOD 07/10/2025 12:48 AM EDT [facility] pH, Urine 6.0 5.0 - 8.0 LAB URINALYSIS - AUTOMATED METHOD 07/10/2025 12:48 AM EDT [facility] Protein, Urine Trace(A) Negative mg/dL LAB URINALYSIS - AUTOMATED METHOD 07/10/2025 12:48 AM EDT [facility] Glucose, Urine Negative Negative mg/dL LAB URINALYSIS - AUTOMATED METHOD 07/10/2025 12:48 AM EDT [facility] Ketones, Urine Negative Negative mg/dL LAB URINALYSIS - AUTOMATED METHOD 07/10/2025 12:48 AM EDT [facility] Blood, Urine Trace(A) Negative LAB URINALYSIS - AUTOMATED METHOD 07/10/2025 12:48 AM EDT [facility] Bilirubin, Urine Negative Negative LAB URINALYSIS - AUTOMATED METHOD 07/10/2025 12:48 AM EDT [facility] Urobilinogen, Urine 1.0 0.2 to 1.0 mg/dL LAB URINALYSIS - AUTOMATED METHOD 07/10/2025 12:48 AM EDT [facility] Leukocytes, Urine Large(A) Negative LAB URINALYSIS - AUTOMATED METHOD 07/10/2025 12:48 AM EDT [facility] Nitrite, Urine Negative Negative LAB URINALYSIS - AUTOMATED METHOD 07/10/2025 12:48 AM EDT [facility] RBC, Urine <1 0 to 3 /HPF LAB URINALYSIS - AUTOMATED METHOD 07/10/2025 12:48 AM EDT [facility] Comment:This result was prev iously suppressed from the chart. WBC, Urine >50(A) 0 to 5 /HPF LAB URINALYSIS - AUTOMATED METHOD 07/10/2025 12:48 AM EDT [facility] Comment:This result was prev iously suppressed from the chart. Squamous Epithelial Cells 0 - 2 0 to 5 /HPF LAB URINALYSIS - AUTOMATED METHOD 07/10/2025 12:48 AM EDT [facility] Comment:This result was prev iously suppressed from the chart. Hyaline Casts 3 - 5 0 to 5 /LPF LAB URINALYSIS - AUTOMATED METHOD 07/10/2025 12:48 AM EDT [facility] Comment:This result was prev iously suppressed from the chart. Bacteria, Urine Present Negative LAB URINALYSIS - AUTOMATED METHOD 07/10/2025 12:48 AM EDT [facility] Comment:This result was prev iously suppressed from the chart. Urine Urine specimen obtained by clean catch procedure / Unknown Non-blood Collection / Unknown 07/10/2025 12:09 AM EDT 07/10/2025 12:15 AM EDT us Kenan Luna MD LAB URINE ORDERABLES Final Res ult [facility] [address] [place] [address] * (ABNORMAL) Blood gas panel, venous (07/09/2025 9:25 PM EDT) pH, Venous 7.48(H) 7.32 - 7.43 LAB HEMATOLOGY METHOD 07/09/2025 10:00 PM EDT [facility] pCO2, Venous 47 37 - 52 mmHg LAB HEMATOLOGY METHOD 07/09/2025 10:00 PM EDT [facility] pO2, Venous 32 25 - 40 mmHg LAB HEMATOLOGY METHOD 07/09/2025 10:00 PM EDT [facility] SO2, Measured, Venous 54(L) 65 - 80 % LAB HEMATOLOGY METHOD 07/09/2025 10:00 PM EDT [facility] Base Excess, Venous 9.9(H) -2.0 - 3.0 mmol/L LAB HEMATOLOGY METHOD 07/09/2025 10:00 PM EDT [facility] Bicarbonate, Calculated, Venous 35(H) 22 - 26 mmol/L LAB HEMATOLOGY METHOD 07/09/2025 10:00 PM EDT [facility] Hematocrit, Whole Blood 36.4 34.0 - 45.0 % LAB HEMATOLOGY METHOD 07/09/2025 10:00 PM EDT [facility] Sodium, Whole Blood 139 136 - 145 mmol/L LAB HEMATOLOGY METHOD 07/09/2025 10:00 PM EDT [facility] Potassium, Whole Blood 3.0(L) 3.6 - 4.9 mmol/L LAB HEMATOLOGY METHOD 07/09/2025 10:00 PM EDT [facility] Chloride, Whole Blood 94(L) 97 - 107 mmol/L LAB HEMATOLOGY METHOD 07/09/2025 10:00 PM EDT [facility] Glucose, Whole Blood 82 74 - 99 mg/dL LAB HEMATOLOGY METHOD 07/09/2025 10:00 PM EDT [facility] Lactate, Venous, Whole Blood 2.6(H) 0.5 - 2.2 mmol/L LAB HEMATOLOGY METHOD 07/09/2025 10:00 PM EDT [facility] Ionized Calcium, Whole Blood 4.5(L) 4.6 - 5.1 mg/dL LAB HEMATOLOGY METHOD 07/09/2025 10:00 PM EDT [facility] Blood Venous blood specimen / Unknown Venipuncture / Unknown 07/09/2025 9:25 PM EDT 07/09/2025 9:59 PM EDT us Kenan Luna MD LAB BLOOD ORDERABLES Final Res ult [facility] [address] [place] [address] * XR Chest 1 View (07/09/2025 8:56 PM EDT) Anatomical Region Laterality Modality Chest Digital Radiogra phy Impressions 07/09/2025 7:23 PM EDT Airspace opacity concerning for infection most likely within the medial basilar right lower lobe. CRITICAL RESULT: No. COMMUNICATION: Per this written report. Drafted by Pepe Tinsley MD on 07/09/2025 7:20 PM Final report signed by Pepe Tinsley MD on 07/09/2025 7:23 PM Narrative 07/09/2025 7:23 PM EDT CLINICAL INDICATION: Short of air. TECHNIQUE: Frontal portable chest. COMPARISON: None. FINDINGS: Airspace opacity medial right lung base, most likely within the right lower lobe. Lungs are otherwise aerated. No significant effusion, no appreciable pneumothorax. Cardiac size is within normal limits. Unremarkable cardiac and mediastinal contours. No free subdiaphragmatic gas. Partial imaging IVC filter. Right IJ Port-A-Cath in place, tip of catheter upper right atrium. No acute osseous findings. Procedure Note Pepe Tinsley MD - 07/09/2025 CLINICAL INDICATION: Short of air. TECHNIQUE: Frontal portable chest. COMPARISON: None. FINDINGS: Airspace opacity medial right lung base, most likely within the rightlower lobe. Lungs are otherwise aerated. No significant effusion, noappreciable pneumothorax. Cardiac size is within normal limits.Unremarkable cardiac and mediastinal contours. No free subdiaphragmaticgas. Partial imaging IVC filter. Right IJ Port-A-Cath in place, tip ofcatheter upper right atrium. No acute osseous findings. IMPRESSION: Airspace opacity concerning for infection most likely within the medialbasilar right lower lobe. CRITICAL RESULT: No. COMMUNICATION: Per this written report. Drafted by Pepe Tinsley MD on 07/09/2025 7:20 PM Final report signed by Pepe Tinsley MD on 07/09/2025 7:23 PM us Steve Blood MD IMG XR PROCEDURES Final Resul t * CT Head wo IV Contrast (07/09/2025 7:46 PM EDT) Anatomical Region Laterality Modality Head Computed Tomogra phy Impressions 07/09/2025 9:00 PM EDT No acute intracranial abnormality. CRITICAL RESULT: No. COMMUNICATION: Per this written report. Preliminary report signed by Fabrice Christopher MD on 07/09/2025 8:44 PM By electronically signing this report, I, the attending physician, attest that I have personally reviewed the images/data for the above examination(s) and agree with the final edited report. Drafted by Fabrice Christopher MD on 07/09/2025 8:43 PM Final report signed by Aba Saab MD on 07/09/2025 9:00 PM Narrative 07/09/2025 9:00 PM EDT CLINICAL INDICATION: Neuro deficit, acute, stroke suspected TECHNIQUE: Routine contiguous axial CT images of the head were obtained without contrast administration. Total DLP (Dose-Length Product): 596.64 mGy.cm. Please note: The reported value represents the total of one or more individual components during the CT acquisition on this date and at this time, and as such, the same value may appear in more than one CT report depending on the interpreting/reporting physicians. COMPARISON: 12/26/2024 MR FINDINGS: Redemonstrated postsurgical changes following right frontal craniotomy with resection. No acute intracranial abnormality. No evidence of acute hemorrhage or ischemia. Generalized cerebral atrophy is present. There are supratentorial white matter low attenuation alterations, most marked in the periventricular white matter, which are nonspecific but are often attributed to sequela of small vessel ischemic disease. Otherwise the bradshaw white matter differentiation is maintained. No mass, mass effect, or midline displacement of structures. Normal ventricular size and configuration for age. No displaced or depressed calvarial fractures. The visualized paranasal sinuses and mastoid air cells are clear. Procedure Note Aba Saab MD - 07/09/2025 CLINICAL INDICATION: Neuro deficit, acute, stroke suspected TECHNIQUE: Routine contiguous axial CT images of the head were obtained withoutcontrast administration. Total DLP (Dose-Length Product): 596.64 mGy.cm. Please note: The reportedvalue represents the total of one or more individual components during theCT acquisition on this date and at this time, and as such, the same valuemay appear in more than one CT report depending on theinterpreting/reporting physicians. COMPARISON: 12/26/2024 MR FINDINGS: Redemonstrated postsurgical changes following right frontal craniotomywith resection. No acute intracranial abnormality. No evidence of acute hemorrhage orischemia. Generalized cerebral atrophy is present. There aresupratentorial white matter low attenuation alterations, most marked inthe periventricular white matter, which are nonspecific but are oftenattributed to sequela of small vessel ischemic disease. Otherwise the greywhite matter differentiation is maintained. No mass, mass effect, ormidline displacement of structures. Normal ventricular size andconfiguration for age. No displaced or depressed calvarial fractures. The visualized paranasalsinuses and mastoid air cells are clear. IMPRESSION: No acute intracranial abnormality. CRITICAL RESULT: No. COMMUNICATION: Per this written report. Preliminary report signed by Fabrice Christopher MD on 07/09/2025 8:44 PM By electronically signing this report, I, the attending physician, attestthat I have personally reviewed the images/data for the aboveexamination(s) and agree with the final edited report. Drafted by Fabrice Christopher MD on 07/09/2025 8:43 PM Final report signed by Aba Saab MD on 07/09/2025 9:00 PM [facility] [place] Blood MD IM CT PROCEDURES Final Resul t * (ABNORMAL) Creatine Kinase (CK), Total (07/09/2025 6:33 PM EDT) Pathologist [facility] Creatine Kinase, Plasma 29(L) 37 - 168 U/L 07/10/2025 12:00 AM EDT [facility] Blood Venous blood specimen / Unknown Venipuncture / Unknown 07/09/2025 6:33 PM EDT 07/09/2025 6:39 PM EDT us Kenan Luna MD LAB BLOOD ORDERABLES Final Res ult Performing Organization Address City/[facility]/ZIP Co de Phone Number [facility] [address] [place] [address] * ED HIV 1/2 Antibody/Antigen Screen w/Reflex to HIV 1/2 Differentiation (07/09/2025 6:33 PM EDT) [facility] HIV 1 & 2 Antibody/Antigen Screen Non Reactive Non Reactive 07/09/2025 8:13 PM EDT [facility] Comment:Screening for HIV 1 & 2 antibodies, and P24 antigen is NONREACTIVE. No confirmatory testing is required. Blood Venous blood specimen / Unknown Venipuncture / Unknown 07/09/2025 6:33 PM EDT 07/09/2025 6:57 PM EDT us Steve Blood MD LAB BLOOD ORDERABLES Final Re sult Performing Organization Address [facility]/ZIP Co de Phone Number [facility] [address] [place] [address] * Hepatitis C Antibody - ED (07/09/2025 6:33 PM EDT) [facility] Hepatitis C Antibody Negative Negative 07/09/2025 7:45 PM EDT [facility] Blood Venous blood specimen / Unknown Venipuncture / Unknown 07/09/2025 6:33 PM EDT 07/09/2025 6:57 PM EDT us Steve Blood MD LAB BLOOD ORDERABLES Final Re sult [facility] [address] [place] [address] * APTT (07/09/2025 6:33 PM EDT) aPTT 31 25 - 35 sec 07/09/2025 6:58 PM EDT [facility] Blood Venous blood specimen / Unknown Venipuncture / Unknown 07/09/2025 6:33 PM EDT 07/09/2025 6:39 PM EDT Steve Blood MD LAB BLOOD ORDERABLES Final Re sult Performing Organization Address [facility]/ZIP Co de Phone Number [facility] [address] [place] [address] * (ABNORMAL) PT-INR (07/09/2025 6:33 PM EDT) Prothrombin Time 15.6(H) 12.0 - 14.3 sec 07/09/2025 6:56 PM EDT [facility] INR 1.3(H) 0.9 - 1.1 07/09/2025 6:56 PM EDT [facility] Blood Venous blood specimen / Unknown Venipuncture / Unknown 07/09/2025 6:33 PM EDT 07/09/2025 6:39 PM EDT Narrative [facility] - 07/09/2025 6:56 PM EDT OPTIMAL INR RANGES FOR PATIENT ON ORAL ANTICOAGULANT THERAPY Prevention of venous thromboembolism INR 2.0 to 3.0 In patients with heart disease: Atrial fibrillation INR 2.0 to 3.0 Valvular heart disease INR 2.0 to 3.0 Tissue heart valves INR 2.0 to 3.0 Mechanical prosthetic valves INR 2.5 to 3.5 Prevention of recurrent MN INR 2.5 to 3.5 Steve Blood MD LAB BLOOD ORDERABLES Final Re sult [facility] [address] [place] [address] * (ABNORMAL) Lactic acid, venous (07/09/2025 6:33 PM EDT) Lactate, Venous, Whole Blood 5.0(H) 0.5 - 2.2 mmol/L LAB HEMATOLOGY METHOD 07/09/2025 7:14 PM EDT [facility] Blood Venous blood specimen / Unknown Venipuncture / Unknown 07/09/2025 6:33 PM EDT 07/09/2025 7:07 PM EDT Steve Blood MD LAB BLOOD ORDERABLES Final Re sult Performing Organization Address City/[facility] Co de Phone Number [facility] [address] [place] [address] * Type and screen (07/09/2025 6:33 PM EDT) ABO/Rh O Positive 07/09/2025 6:06 PM EDT [facility] Antibody Screen Negative 07/09/2025 6:06 PM EDT [facility] Specimen Expiration 07/12/2025 23:59 07/09/2025 6:06 PM EDT [facility] Blood Venous blood specimen / Unknown Venipuncture / Unknown 07/09/2025 6:33 PM EDT 07/09/2025 6:41 PM EDT Steve Blood MD LAB BLOOD BANK TEST ORDERABLE S Final Result Performing Organization Address [facility] de Phone Number BLOOD BANK [address] [place] [address], * Phosphorus (07/09/2025 6:33 PM EDT) Phosphorus, Plasma 4.1 2.5 - 4.5 mg/dL 07/09/2025 7:08 PM EDT [facility] Blood Venous blood specimen / Unknown Venipuncture / Unknown 07/09/2025 6:33 PM EDT 07/09/2025 6:39 PM EDT Steve Blood MD LAB BLOOD ORDERABLES Final Re sult Performing Organization Address City/[facility] Co de Phone Number [facility] [address] [place] [address] * (ABNORMAL) Magnesium (07/09/2025 6:33 PM EDT) Magnesium, Plasma 1.4(L) 1.9 - 2.4 mg/dL 07/09/2025 7:08 PM EDT [facility] Blood Venous blood specimen / Unknown Venipuncture / Unknown 07/09/2025 6:33 PM EDT 07/09/2025 6:39 PM EDT us Steve Blood MD LAB BLOOD ORDERABLES Final Re sult [facility] [address] [place] [address] * (ABNORMAL) CBC (07/09/2025 6:33 PM EDT) WBC Count 6.24 3.70 - 10.30 10*3/uL LAB HEMATOLOGY METHOD 07/09/2025 6:45 PM EDT [facility] RBC Count 2.38(L) 3.90 - 5.20 10*6/uL LAB HEMATOLOGY METHOD 07/09/2025 6:45 PM EDT [facility] HGB 7.9(L) 11.2 - 15.7 g/dL LAB HEMATOLOGY METHOD 07/09/2025 6:45 PM EDT [facility] HCT 24.5(L) 34.0 - 45.0 % LAB HEMATOLOGY METHOD 07/09/2025 6:45 PM EDT [facility] Platelet Count 100(L) 155 - 369 10*3/uL LAB HEMATOLOGY METHOD 07/09/2025 6:45 PM EDT [facility] MCV 103(H) 79 - 98 fL LAB HEMATOLOGY METHOD 07/09/2025 6:45 PM EDT [facility] MCH 33.2(H) 26.0 - 32.0 pg LAB HEMATOLOGY METHOD 07/09/2025 6:45 PM EDT [facility] MCHC 32.2 30.7 - 35.5 g/dL LAB HEMATOLOGY METHOD 07/09/2025 6:45 PM EDT [facility] RDW 24.6(H) 11.5 - 14.5 % LAB HEMATOLOGY METHOD 07/09/2025 6:45 PM EDT [facility] MPV 10.1 8.8 - 12.5 fL LAB HEMATOLOGY METHOD 07/09/2025 6:45 PM EDT [facility] nRBC 0.0 <=0.0 per 100 WBCs LAB HEMATOLOGY METHOD 07/09/2025 6:45 PM EDT [facility] Blood Venous blood specimen / Unknown Venipuncture / Unknown 07/09/2025 6:33 PM EDT 07/09/2025 6:39 PM EDT us Steve Blood MD LAB BLOOD ORDERABLES Final Re sult [facility] [address] [place] [address] * (ABNORMAL) CMP (07/09/2025 6:33 PM EDT) Glucose, Plasma 142(H) 74 - 99 mg/dL 07/09/2025 7:08 PM EDT [facility] BUN, Plasma 18 8 - 23 mg/dL 07/09/2025 7:08 PM EDT [facility] Creatinine, Plasma 1.21(H) 0.60 - 1.10 mg/dL 07/09/2025 7:08 PM EDT [facility] BUN/Creatinine Ratio 15 07/09/2025 7:08 PM EDT [facility] Sodium, Plasma 138 136 - 145 mmol/L 07/09/2025 7:08 PM EDT [facility] Potassium, Plasma 3.4(L) 3.6 - 4.9 mmol/L 07/09/2025 7:08 PM EDT [facility] Chloride, Plasma 93(L) 97 - 107 mmol/L 07/09/2025 7:08 PM EDT [facility] CO2, Plasma 28 22 - 29 mmol/L 07/09/2025 7:08 PM EDT [facility] Anion Gap 17(H) 6 - 16 mmol/L 07/09/2025 7:08 PM EDT [facility] Total Calcium, Plasma 8.5(L) 8.9 - 10.2 mg/dL 07/09/2025 7:08 PM EDT [facility] Total Protein 6.7 6.3 - 7.9 g/dL 07/09/2025 7:08 PM EDT [facility] Albumin, Plasma 2.9(L) 3.5 - 5.2 g/dL 07/09/2025 7:08 PM EDT [facility] AST, Plasma 27 10 - 35 U/L 07/09/2025 7:08 PM EDT [facility] ALT, Plasma 15 10 - 35 U/L 07/09/2025 7:08 PM EDT [facility] Alkaline Phosphatase, Plasma 92 46 - 142 U/L 07/09/2025 7:08 PM EDT [facility] Total Bilirubin, Plasma 0.5 0.2 - 1.1 mg/dL 07/09/2025 7:08 PM EDT [facility] eGFRcr 49.5 mL/min/1.7 3m*2 07/09/2025 7:08 PM EDT [facility] Comment:Reported eGFRcr in m L/min/1.73m2 is based the CKD-EPI 2020 equation that does not use a race coefficient. Blood Venous blood specimen / Unknown Venipuncture / Unknown 07/09/2025 6:33 PM EDT 07/09/2025 6:39 PM EDT us Steve Blood MD LAB BLOOD ORDERABLES Final Re sult [facility] [address] [place] [address] documented in this encounter Visit Diagnoses Diagnosis Altered mental status, unspecified altered mental status type- Primary UTI symptoms documented in this encounter Administered Medications Inactive Administered Medications - up to 3 most recent administrations Medication Order MAR Action Action Date Dose Rate Site acetaminophen (Tylenol) tablet 1,000 mg 1,000 mg, Oral, Once, 1 dose, On Wed07/09/25 at 2240, STAT Given 07/09/2025 10:50 PM EDT 1,000 mg cefTRIAXone (Rocephin) 2 g in sodium chloride 0.9% 100 mL IVPB (vial adapter required) 2 g, Intravenous, Once, 1 dose, On Wed07/10/25 at 0130, STAT New Bag 07/10/2025 1:36 AM EDT 2 g 220 mL/hr heparin flush 10 UNIT/ML injection 50 Units 50 Units, Intracatheter, As needed, Starting on Wed07/10/25 at 0212, Until Wed07/10/25 at 0434, Routine, line care Given 07/10/2025 2:25 AM EDT 50 Units lactated Ringer's infusion 1,000 mL 1,000 mL, Intravenous, Once, 1 dose, On Wed07/09/25 at 1955, STAT New Bag 07/09/2025 9:34 PM EDT 1,000 mL oxyCODONE (Roxicodone) immediate release tablet 5 mg 5 mg, Oral, Once, 1 dose, On Wed07/09/25 at 2240, STAT Given 07/09/2025 10:50 PM EDT 5 mg documented in this encounter Active and Recently Administered Medications Times are shown in EDT. Scheduled Medication Order 07/08/2025 07/09/2025 07/10/2025 acetaminophen (Tylenol) tablet 1,000 mg (COMPLETED) 1,000 mg, Oral, Once, 1 dose, On Wed07/09/25 at 2240, STAT 2250 (Given - Provider: Gladys Renteria) cefTRIAXone (Rocephin) 2 g in sodium chloride 0.9% 100 mL IVPB (vial adapter required) (COMPLETED) 2 g, Intravenous, Once, 1 dose, On Wed07/10/25 at 0130, STAT 0136 (New Bag - Provider: Gladys Renteria)0215 (Stopped - Provider: Gladys Renteria) lactated Ringer's infusion 1,000 mL (COMPLETED) 1,000 mL, Intravenous, Once, 1 dose, On Wed07/09/25 at 1955, STAT 2134 (New Bag - Provider: Gladys Renteria - Comment: Not given at scheduled time) 0026 (Stopped - Provider: Gladys Renteria) oxyCODONE (Roxicodone) immediate release tablet 5 mg (COMPLETED) 5 mg, Oral, Once, 1 dose, On Wed07/09/25 at 2240, STAT 2250 (Given - Provider: Gladys Renteria) PRN Medication Order 07/08/2025 07/09/2025 07/10/2025 heparin flush 10 UNIT/ML injection 50 Units 50 Units, Intracatheter, As needed, Starting on Wed07/10/25 at 0212, Until Wed07/10/25 at 0434, Routine, line care 0225 (Given - Provid er: Gladys March) documented in this encounter Additional Health Concerns Assessment Noted Time A fall risk assessment has been complete d for the patient 03/29/2025 12:40 PM EDT A Body Mass Index follow-up plan has been documented for the patient 03/29/2025 1:49 PM EDT documented as of this encounter Care Teams Quality Control Assistant Relationship Specialty Start Date End Date Italo Camejo APRN [id number] [place] [address] PCP - General 11/18/23 documented as of this encounter
--- OUTSIDE RECORDS SUMMARY | 2025-07-18 10:00 | XMS_ITS | Encounter Summary ---
Author Organization [facility] nter Address [address] [place] [address] Care Team Providers Care Marketing Instructor Name Role Phone Rachel Pagan MD Unavailable [phone] Pati Rucker ELECTRICAL HIGH TENSION TESTER Unavailable [phone] Sosa Gardner ELECTRICAL HIGH TENSION TESTER Unavailable [phone] Linda Elizabeth DO Unavailable Lizandro Khan NP Primary Care Provider Elsa Vazquez Unavailable Unavailable Angie Murray RN Unavailable Unavailab le Reason for Visit * Auth/Cert (Routine) Specialty Diagnoses / Procedures Referred By Controse mary t Referred To Contact Diagnoses Malignant neoplasm of unspecified part of unspecified bronchus or lung Procedures [place] PEMETREXED INJECTION [facility] [address] [place] [address] Phone: tel: [facility] MEDICAL ONCOLOGY [address]th [place] [address] Phone: tel: fax: Referral ID Status Reason Start Date Expiration Date Visits Re quested Visits Authorized [id number] 1 1 Encounter Details Date Type Department Care Team (Latest Contact Info) Description 07/18/2025 10:00 AM EDT - 07/18/2025 10:12 AM EDT Hospital Encounter [facility] MED[facility] ONCOL[facility]Y [address] [...] week 11/11/2022 How often do you attend [facility] or [facility]ist services? More than 4 times per year [...] place to sleep or slept in a usp (including now)? No 11/11/2022 AUDIT-C Answer Date [...] things needed for daily living? No 06/23/2025 [facility] Utilities Answer Date Recorded In [...] at bedtime. Take morning of procedure 06/22/2025 ipratropium-albu terol (Duo-Neb) 0.5-2.5 mg/3 mL nebulizer solution Take [...] mouth at bedtime. 60 tablet 06/22/2025 5 valproic acid (Depakene) 250 MG/5ML oral liquid Take 5 mL (250 mg) by mouth every 8 (eight) hours. 450 mL 06/22/2025 5 documented as of this encounter Progress Notes * Maria D Vazquez, RN - 07/18/2025 10:00 AM EDT Jose Levi is here for a Mediport Flush/Lab draw. Cleaned right subclavian mediport with chlorprep, allowed to dry, accessed with 3/4 20 g Crowley needle using aseptic technique. blood return noted. flushed with 10 ml NS. 10 ml blood drawn and wasted. Blood drawn and sent to lab. Flushed with 10ml normal saline. Heplock and swab cap applied. Dressing applied. Tolerated well. No complaints noted. Left accessed for chemotherapy. Loretta RN documented in this encounter Plan of Treatment Upcoming Encounters Date Type Department Care Team (Late st Contact Info) Description 08/27/2025 8:45 AM EDT Office Visit [facility] ONCOLOGY PRACTICE [address] [place] [address] Rachel Pagan MD [address] [place] [address] 08/28/2025 1:00 PM EDT Office Visit [facility] ORTHOPEDIC PODIATRY PRACTICE [address] 6th [place] [address] Yazan Castro DPM [address] [place] [address] 08/29/2025 10:30 AM EDT Appointment [facility] MEDICAL ONCOLOGY [address]th [place] [address] 09/06/2025 1:45 PM EDT Appointment [facility] ULTRASOUND [address], 2nd [place] [address] 09/12/2025 9:30 AM EDT Appointment [facility] MRI BLDG D [address], [place] [address] 09/28/2025 9:30 AM EST Office Visit [facility] CARDIOLOGY PRACTICE [address], 1st [place] [address] Ky Jewell MD [address] [place] [address] 11/05/2025 2:45 PM EST Office Visit [facility] NEUROLOGY PRACTICE [address], 8th [place] [address] Ruddy Mayes MD [address] [place] [address] 12/31/2025 11:30 AM EST Office Visit [facility] NEPHROLOGY PRACTICE [address] [place] [address] 01/22/2026 9:00 AM EDT Office Visit [facility] CARDIOLOGY PRACTICE [address] 1st Floor [facility] [place] [address] Allyn Toribio NP [address] [phone] documented as of this encounter Goals Goal Patient Goal Type Associated Problems Recent Progress Patient-Stated? Author Patient's support system will participate in treatment General Emily Ny [place] documented as of this encounter Visit Diagnoses Diagnosis Stage IV squamous cell carcinoma of lung, unspecified laterality documented in this encounter Administered Medications Inactive Administered Medications - up to 3 most recent administrations Medication Order MAR Action Action Date Dose Rate Site sodium chloride 0.9 % flush 20 mL 20 mL, Intravenous, Once, On Wed07/18/25 at 1100, For 1 dose Given 07/18/2025 10:48 AM EDT 20 mL documented in this encounter Additional Health Concerns Assessment Noted Time PHQ-9 Depression Total Score: 0 06/23/20 10:00 AM EDT documented as of this encounter Care Teams Marketing Instructor Relationship Specialty Start Date End Date Lizandro Khan NP [address] [place] [address] PCP - General Family Medicine 03/20/25 07/22/25 Rachel Pagan MD [address] [place] [address] [place] [address] Consulting Physician Oncology 11/11/22 Pati Rucker APRN [address] [place] [address] [place] [address] Nurse Practitioner Oncology 12/21/22 Sosa Gardner APRN [address] [place] [address] Nurse Practitioner Oncology 06/24/23 Linda Elizabeth DO [address] [place] [address] Consulting Physician Oncology 03/01/25 Elsa Vazquez [address] [place] [address] Nurse Navigator Oncology 06/05/25 07/19/25 Angie Murray, ROLDAN [address] [place] [address] Nurse Navigator Oncology 06/26/25 documented as of this encounter
--- OUTSIDE RECORDS SUMMARY | 2025-07-18 10:13 | XMS_ITS | Encounter Summary ---
Author Organization [facility] nter Address [address] [place] [address] Care Team Providers Care Social Service Manager Name Role Phone Rachel Pagan MD Unavailable [phone] Pati Rucker INTELLIGENCE MANAGER Unavailable [phone] Sosa Gardner INTELLIGENCE MANAGER Unavailable [phone] Linda Elizabeth DO Unavailable Lizandro Khan NP Primary Care Provider [phone] Elsa Vazquez Unavailable Unavailable Angie Murray RN Unavailable Unavailab le Reason for Visit * Auth/Cert (Routine) Specialty Diagnoses / Procedures Referred By Controse mary t Referred To Contact Diagnoses Malignant neoplasm of unspecified part of unspecified bronchus or lung Procedures [place] PEMETREXED INJECTION [facility] [address] [place] [address] Phone: tel: [facility]COL[facility] [address]th [place] [address] Phone: tel: fax: Referral ID Status Reason Start Date Expiration Date Visits Re quested Visits Authorized [id number] 1 1 Encounter Details Date Type Department Care Team (Latest Contact Info) Description 07/18/2025 10:13 AM EDT - 07/18/2025 10:29 AM EDT Hospital Encounter [facility] MED[facility] ONCOL[facility]Y [address], 11[address] Floor [place] [address] Discharge Disposition: Still a Patient Social History [...] How often do you attend chur or quaker services? More than 4 times per year 11/11/2022 Do you belong to any clubs o r organizations such as anabaptist groups, unions, fraternal or athletic groups, or [...] place to sleep or slept in a detention (including now)? No 11/11/2022 AUDIT-C Answer Date [...] things needed for daily living? No 06/23/2025 [facility] Utilities Answer Date Recorded In the [...] PRACTICE [address], 10[address] [place] [address] Rachel Pagan MD [address] [facility] [place] [address] 08/28/2025 1:00 PM EDT Office Visit [facility] ORTHOPEDIC PODIATRY PRACTICE [address], 6th [place] [address] Yazan Castro DPM [address] [facility] [place] [address] 08/29/2025 10:30 AM EDT Appointment [facility] MEDICAL ONCOLOGY [address], 11th Floor [place] [phone] 09/06/2025 1:45 PM EDT Appointment [facility] ULTRASOUND [address], 2nd Floor [place] [phone] 09/12/2025 9:30 AM EDT Appointment [facility] MRI BLDG D [address], [place] [address] 09/28/2025 9:30 AM EST Office Visit [facility] CARDIOLOGY PRACTICE [address], 1st Floor [facility] [place] [address] Ky Jewell MD [address] [facility] [place] [phone] 11/05/2025 2:45 PM EST Office Visit [facility] NEUROLOGY PRACTICE [address], 8th [place] [address] Ruddy Mayes MD [facility] [address] [facility] [place] [address] 12/31/2025 11:30 AM EST Office Visit [facility] NEPHROLOGY PRACTICE [address] [phone] 01/22/2026 9:00 AM EDT Office Visit [facility] CARDIOLOGY PRACTICE [address], 1st Floor [facility] [place] [address] Allyn Toribio NP [address] [place] [phone] documented as of this encounter Goals Goal Patient Goal Type Associated Problems Recent Progress Patient-Stated? Author Patient's support system will participate in treatment General Emily Ny documented as of this encounter Procedures Procedure Name Priority Date/Time Associated Diagnosis Comments CBC WITH AUTO DIFFERENTIAL Routine 07/18/2025 10:17 AM EDT TSH Routine 07/18/2025 10:17 AM EDT T4, FREE Routine 07/18/2025 10:17 AM EDT COMPREHENSIVE METABOLIC PANEL Routine 07/18/2025 10:17 AM EDT documented in this encounter Results * (ABNORMAL) Comprehensive metabolic panel (07/18/2025 10:17 AM EDT) Sodium 135 134 - 143 mmol/L 07/18/2025 11:42 AM [facility] Potassium 4.0 3.2 - 4.6 mmol/L 07/18/2025 11:42 AM [facility] Chloride 97(L) 99 - 108 mmol/L 07/18/2025 11:42 AM [facility] CO2 29 19 - 29 mmol/L 07/18/2025 11:42 AM [facility] Anion Gap 9 5 - 15 mmol/L 07/18/2025 11:42 AM [facility] BUN 14 7 - 20 mg/dL 07/18/2025 11:42 AM [facility] Creatinine 1.47(H) <=1.20 mg/dL 07/18/2025 11:42 AM [facility] BUN/Creatinine Ratio 9.52(L) 10.00 - 20.00 ratio 07/18/2025 11:42 AM [facility] Glucose 91 58 - 104 mg/dL 07/18/2025 11:42 AM [facility] Calcium 8.7 7.9 - 11.1 mg/dL 07/18/2025 11:42 AM [facility] AST 24 10 - 28 U/L 07/18/2025 11:42 AM [facility] ALT (SGPT) 15 <=40 U/L 07/18/2025 11:42 AM [facility] Alkaline Phosphatase 78 29 - 108 U/L 07/18/2025 11:42 AM [facility] Total Protein 6.7 5.9 - 7.9 g/dL 07/18/2025 11:42 AM [facility] Albumin 2.8(L) 3.5 - 5.1 g/dL 07/18/2025 11:42 AM [facility] Globulin, Total 3.9 2.4 - 4.8 g/dL 07/18/2025 11:42 AM [facility] A/G Ratio 0.7 0.6 - 1.6 07/18/2025 11:42 AM [facility] Total Bilirubin 0.5 0.3 - 1.0 mg/dL 07/18/2025 11:42 AM [facility] eGFR (CKD-EPI) 36.9(L) >60.0 - 200.0 mL/min/1.7 3m*2 07/18/2025 11:42 AM [facility] Blood Venous blood specimen / Unknown Venipuncture / Unknown 07/18/2025 10:17 AM EDT 07/18/2025 11:06 AM EDT us Rachel Soriano MD LAB BLOOD ORDERABLES Final Result Performing Organization Address City/State/[facility] Co de Phone Number [facility] [address] [place] [address], * (ABNORMAL) CBC auto differential (07/18/2025 10:17 AM EDT) Auto WBC 5.3 3.8 - 11.0 10*3/uL 07/18/2025 11:18 AM [facility] RBC 2.70(L) 3.73 - 5.13 10*6/uL 07/18/2025 11:18 AM [facility] Hemoglobin 9.4(L) 11.2 - 15.3 g/dL 07/18/2025 11:18 AM [facility] Hematocrit 27.8(L) 32.6 - 44.6 % 07/18/2025 11:18 AM [facility] MCV 102.6(H) 78.8 - 96.0 fL 07/18/2025 11:18 AM [facility] MCH 34.9(H) 26.2 - 33.0 pg 07/18/2025 11:18 AM [facility] MCHC 34.0 32.7 - 35.1 g/dL 07/18/2025 11:18 AM [facility] RDW 26.2(H) 12.1 - 16.1 % 07/18/2025 11:18 AM [facility] MPV 7.9 7.0 - 10.6 fL 07/18/2025 11:18 AM [facility] Neutrophils % 63 47 - 79 % 07/18/2025 11:18 AM [facility] Lymphocytes % 20 13 - 41 % 07/18/2025 11:18 AM [facility] Monocytes % 14(H) 3 - 11 % 07/18/2025 11:18 AM [facility] Eosinophils % 3 0 - 6 % 07/18/2025 11:18 AM [facility] Basophils % 1 0 - 2 % 07/18/2025 11:18 AM [facility] Neutrophils Absolute 3.30 1.90 - 7.50 10*3/uL 07/18/2025 11:18 AM [facility] Lymphocytes Absolute 1.00 0.80 - 3.20 10*3/uL 07/18/2025 11:18 AM [facility] Monocytes Absolute 0.70 0.10 - 0.90 10*3/uL 07/18/2025 11:18 AM [facility] Eosinophils Absolute 0.20 0.00 - 0.40 10*3/uL 07/18/2025 11:18 AM [facility] Basophils Absolute 0.00 0.00 - 0.20 10*3/uL 07/18/2025 11:18 AM EDT [facility] Platelets 183 138 - 402 10*3/uL 07/18/2025 11:18 AM EDT [facility] Blood Venous blood specimen / Unknown Venipuncture / Unknown 07/18/2025 10:17 AM EDT 07/18/2025 11:06 AM EDT Rachel Soriano MD LAB BLOOD ORDERABLES Final Result Performing Organization Address City/[facility] Co de Phone Number [facility] [address] [place] [address], * TSH (07/18/2025 10:17 AM EDT) TSH 4.360 0.450 - 5.330 uIU/mL 07/18/2025 11:42 AM EDT [facility] Comment: Non-Pregant Female: 0.45 - 5.33 IU/mL Female - 1st Trimester: 0.05 - 3.70 IU/mL Female - 2nd Trimester: 0.31 4.35 IU/mL Female - 3rd Trimester: 0.41 5.18 IU/mL Blood Venous blood specimen / Unknown Venipuncture / Unknown 07/18/2025 10:17 AM EDT 07/18/2025 11:06 AM EDT Rachel Soriano MD LAB BLOOD ORDERABLES Final Result Performing Organization Address City/[facility]/ZIP Co de Phone Number [facility] [address] [place] [address], * T4, free (07/18/2025 10:17 AM EDT) Free T4 1.06 0.61 - 1.12 ng/dL 07/18/2025 11:43 AM EDT [facility] Blood Venous blood specimen / Unknown Venipuncture / Unknown 07/18/2025 10:17 AM EDT 07/18/2025 11:06 AM EDT us Rachel Soriano MD LAB BLOOD ORDERABLES Final Result [facility] [address] [place] [address], documented in this encounter Visit Diagnoses Not on filedocumented in this encounter Additional Health Concerns Assessment Noted Time PHQ-9 Depression Total Score: 0 06/23/20 10:00 AM EDT documented as of this encounter Care Teams Social Service Manager Relationship Specialty Start Date End Date Lizandro Khan NP [address] [place] [address] PCP - General Family Medicine 03/20/25 07/22/25 Rachel Pagan MD [address] [place] [phone] Consulting Physician Oncology 11/11/22 Pati Rucker APRN [address] [place] [phone] Nurse Practitioner Oncology 12/21/22 Sosa Gardner APRN [address] [place] [phone] Nurse Practitioner Oncology 06/24/23 Linda Elizabeth DO [address] [place] [address] Consulting Physician Oncology 03/01/25 Elsa Vazquez [address] [place], [place] [address] Nurse Navigator Oncology 06/05/25 07/19/25 Angie Murray, RN [address] [place], [place] [address] Nurse Navigator Oncology 06/26/25 documented as of this encounter
--- OUTSIDE RECORDS SUMMARY | 2025-07-18 10:30 | XMS_ITS | Encounter Summary ---
Author Organization [facility] nter Address [address] [place] [address] Care Team Providers Care Bark Tanner Name Role Phone Rachel Pagan MD Unavailable [phone] Pati Rucker QUALITY CONTROL PROJECTIONIST Unavailable [phone] Sosa Gardner QUALITY CONTROL PROJECTIONIST Unavailable Linda Elizabeth DO Unavailable Lizandro Khan NP Primary Care Provider Elsa Vazquez Unavailable Unavailable Angie Murray RN Unavailable Unavailab le Reason for Visit * Reason Comments Chemotherapy * Auth/Cert (Routine) Specialty Diagnoses / Procedures Referred By Contac t Referred To Contact Diagnoses Malignant neoplasm of unspecified part of unspecified bronchus or lung Procedures [place] PEMETREXED INJECTION [facility] [address] [place] [address] Phone: tel: [facility] [address] 11th [place] [address] Phone: tel: fax: Referral ID Status Reason Start Date Expiration Date Visits Re quested Visits Authorized [id number] 1 1 Encounter Details Date Type Department Care Team (Latest Contact Info) Description 07/18/2025 10:30 AM EDT - 07/18/2025 11:59 PM EDT Hospital Encounter [facility] [address] [place] [address] Non-small cell lung cancer, unspecified laterality (Primary Dx) Discharge Disposition: Still a Patient Social History Tobacco Use Types Packs/Day Years Used Date Smoking Tobacco: Every Day Cigarettes 0.5 30.7 Started: 2024; Last attempted to quit: 03/18/2025 Passive Smoke Exposure: Past Smokeless Tobacco: Never Tobacco Cessation:Ready to Q uit: Not Asked; Counseling Given: Not Answered Comments:Offered patient an appointment at the health [...] often do you attend chur ch or scientologist services? More than 4 times per year 11/11/2022 Do you belong to any clubs o r organizations such as pentecostalism groups, unions, fraternal or athletic groups, or [...] place to sleep or slept in a long-term (including now)? No 11/11/2022 AUDIT-C Answer Date [...] things needed for daily living? No 06/23/2025 [facility] Utilities Answer Date Recorded In the past 12 months has [employer] electric, gas, oil, or water company threatened [...] Sign Reading Time Taken Comments Blood Pressure 104/63 07/18/2025 11:09 AM EDT Pulse 68 07/18/2025 11:09 AM EDT Temperature - - Respiratory Rate 20 07/18/2025 11:09 AM EDT Oxygen Saturation - - Inhaled Oxygen Concentration - - Weight 58.2 kg (128 lb 6.4 oz) 07/18/2025 11:09 AM EDT Height - - Body Mass Index 26.84 06/28/2025 9:46 AM EDT documented in this [...] this encounter Medications at Time of Discharge atorvastatin (Lipitor) 80 MG tabletIndications :Cerebrovascular Accident Take 1 tablet (80 mg) by mouth at bedtime. 90 tablet 3 07/18/2025 bumetanide (Bumex) 2 MG tablet Take 1 tablet (2 mg) by mouth in the morning and at bedtime. Hold for systolic blood pressure less than or equal to 100 mmHg 180 tablet 3 07/18/2025 carvedilol (Coreg) 12.5 MG tablet Take 1 [...] in the morning. 30 tablet 11 06/23/2025 gabapentin (Neurontin) 800 MG tablet Take 0.5 tablets (400 mg) by mouth in the morning and at bedtime. Take morning of procedure 06/22/2025 ipratropium-albut nikolai (Duo-Neb) 0.5-2.5 mg/3 mL nebulizer solution Take 3 mL by nebulization every 6 (six) hours if needed for wheezing. 360 mL 06/22/2025 isosorbide mononitrate 20 MG tablet Take 1 tablet (20 mg) by mouth in the morning and at bedtime. Hold for systolic blood pressure less than or equal to 100 mmHg 60 tablet 07/18/2025 magnesium oxide (Mag-Ox) tablet Take 1 tablet (400 mg) by mouth at bedtime. 90 tablet 3 07/18/2025 metFORMIN (Glucophage) 500 MG tablet Take 1 [...] mouth at bedtime. 60 tablet 06/22/2025 5 potassium chloride CR (Klor-Con M20) 20 MEQ ER tablet Take 1 tablet (20 mEq) by mouth in the morning and at bedtime. 60 tablet 07/18/2025 5 valproic acid (Depakene) 250 MG/5ML oral liquid Take 5 mL (250 mg) by mouth every 8 (eight) hours. 450 mL 06/22/2025 5 documented as of this encounter Plan of Treatment Upcoming Encounters Date Type Department Care Team (Late st Contact Info) Description 08/27/2025 8:45 AM EDT Office Visit [facility] [address] [place] [address] Rachel Pagan MD [address] [place] [address] 08/28/2025 1:00 PM EDT Office Visit [facility] [address], [address] [place] [address] Yazan Castro DPM [address] [place] [address] 08/29/2025 10:30 AM EDT Appointment [facility] [address], [address] [place] [address] 09/06/2025 1:45 PM EDT Appointment [facility]TR[facility] [address], 2nd [place] [address] 09/12/2025 9:30 AM EDT Appointment [facility] MRI BLDG D [address] [place] [address] 09/28/2025 9:30 AM EST Office Visit [facility] [address], 1st Floor [place] [facility] [place] [address] Ky Jewell MD [address] [facility] [place] [address] 11/05/2025 2:45 PM EST Office Visit [facility] [address], 8[address] [place] [address] Ruddy Mayes MD [address] [facility] [place] [address] 12/31/2025 11:30 AM EST Office Visit [facility] [address] [phone] 01/22/2026 9:00 AM EDT Office Visit [facility] [address], 1st Floor [place] [facility] [place] [address] Allyn Toribio NP [address] [place] [phone] Scheduled Orders Name Type Priority Associated Diagnoses Orde r Schedule CBC auto differential Lab Routine Non-small cell lung cancer, unspecified laterality Expected: 07/18/2025, Expires: 07/18/2026 Comprehensive metabolic panel Lab Routine Non-small cell lung cancer, unspecified laterality Expected: 07/18/2025, Expires: 07/18/2026 documented as of this encounter Goals Goal Patient Goal Type Associated Problems Recent Progress Patient-Stated? Author Patient's support system will participate in treatment General Emily Ny documented as of this encounter Results * T4, free (07/30/2025 9:57 AM EDT) Free T4 1.02 0.61 - 1.12 ng/dL 07/30/2025 11:06 AM EDT [facility] Blood Venous blood specimen / Unknown Existing Catheter / Unknown 07/30/2025 9:57 AM EDT 07/30/2025 10:25 AM EDT Rachel Soriano MD LAB BLOOD ORDERABLES Final Result Performing Organization Address [facility] Co de Phone Number [facility] [address] [place] [address], * TSH (07/30/2025 9:57 AM EDT) Pathologist [facility] TSH 3.646 0.450 - 5.330 uIU/mL 07/30/2025 11:03 AM EDT [facility] Comment: Non-Pregant Female: 0.45 - 5.33 IU/mL Female - 1st Trimester: 0.05 - 3.70 IU/mL Female - 2nd Trimester: 0.31 4.35 IU/mL Female - 3rd Trimester: 0.41 5.18 IU/mL Blood Venous blood specimen / Unknown Existing Catheter / Unknown 07/30/2025 9:57 AM EDT 07/30/2025 10:25 AM EDT us Rachel Soriano MD LAB BLOOD ORDERABLES Final Result Performing Organization Address [facility] Co de Phone Number [facility] [address] [place] [address], documented in this encounter Visit Diagnoses Diagnosis Non-small cell lung cancer, unspecified laterality- Primary documented in this encounter Administered Medications Inactive Administered Medications - up to 3 most recent administrations Medication Order MAR Action Action Date Dose Rate Site cyanocobalamin (Vitamin B-12) injection 1,000 mcg 1,000 mcg, Subcutaneous, Once, On Wed07/18/25 at 1200, For 1 dose, Deep Subcutaneous.Indicatio ns:Non-small cell lung cancer, unspecified laterality Given 07/18/2025 12:31 PM EDT 1,000 mcg Right Upper Arm (Back) pembrolizumab (Keytruda) 200 mg in sodium chloride 0.9 % 100 mL chemo IVPB 200 mg, Intravenous, Administer over 30 Minutes, Once, On Wed07/18/25 at 1230, For 1 dose, HAZARDOUS - Handle with care Infuse through a 0.2 to 5 micron sterile, nonpyrogenic, low-protein binding inline or add-on filter. Do not infuse other medications through the same infusion line.Indications:Non-s mall cell lung cancer, unspecified laterality New Bag 07/18/2025 12:33 PM EDT 200 mg 216 mL/hr documented in this encounter Additional Health Concerns Assessment Noted Time PHQ-9 Depression Total Score: 0 06/23/20 10:00 AM EDT documented as of this encounter Care Teams Bark Tanner Relationship Specialty Start Date End Date Lizandro Khan NP [address] [place] [address] PCP - General Family Medicine 03/20/25 07/22/25 Rachel Pagan MD [address] [place] [address] Consulting Physician Oncology 11/11/22 Pati Rucker APRN [address] [place] [address] Nurse Practitioner Oncology 12/21/22 Sosa Gardner APRN [address] [facility] [place] [address] Nurse Practitioner Oncology 06/24/23 Linda Elizabeth DO [address] [facility] [place] [address] Consulting Physician Oncology 03/01/25 Elsa Vazquez [address] [place] [address] Nurse Navigator Oncology 06/05/25 07/19/25 Angie Murray, RN [address] [place] [address] Nurse Navigator Oncology 06/26/25 documented as of this encounter
--- OUTSIDE RECORDS SUMMARY | 2025-07-18 15:30 | XMS_ITS | Encounter Summary ---
Author Organization [facility] nter Address [address] [id number] Care Team Providers Care Wood Block Artist Name Role Phone Rachel Pagan MD Unavailable Pati Rucker TELEPHONE INFORMATION CLERK Unavailable [phone] Sosa Gardner TELEPHONE INFORMATION CLERK Unavailable [phone] Linda Elizabeth DO Unavailable Lizandro Khan NP Primary Care Provider Elsa Vazquez Unavailable Unavailable Angie Murray RN Unavailable Unavailab le Reason for Referral * Consultation (Routine) - Authorized Specialty Diagnoses / Procedures Referred By Contac t Referred To Contact Cardiology Diagnoses Paroxysmal atrial fibrillation Procedures ME OFFICE/OUTPATIENT NEW SF MDM 15 MINUTES ME OFFICE/OUTPATIENT NEW LOW MDM 30 MINUTES ME OFFICE/OUTPATIENT NEW MODERATE MDM 45 MINUTES ME OFFICE/OUTPATIENT NEW HIGH MDM 60 MINUTES ME OFFICE/OUTPATIENT ESTABLISHED SF MDM 10 MIN ME OFFICE/OUTPATIENT ESTABLISHED LOW MDM 20 MIN ME OFFICE/OUTPATIENT ESTABLISHED MOD MDM 30 MIN ME OFFICE/OUTPATIENT ESTABLISHED HIGH MDM 40 MIN Allyn Toribio NP [address] [place] [address] Phone: tel: fax: [facility] [address] 1st [place] [address] Phone: tel: fax: Referral ID Status Reason Start Date Expiration Date Visits Requested Visits Authorized [id number] Authorized Specialty Services Required 07/18/2025 07/18/2026 10 3 Reason for Visit * Reason Comments Follow-up * Auth/Cert (Routine) Specialty Diagnoses / Procedures Referred By Contac t Referred To Contact Diagnoses Malignant neoplasm of unspecified part of unspecified bronchus or lung Procedures [place] PEMETREXED INJECTION [facility] [address] [place] [address] Phone: tel: [facility] [address], 11th [place] [address] Phone: tel: fax: Referral ID Status Reason Start Date Expiration Date Visits Re quested Visits Authorized [id number] 1 1 Encounter Details Date Type Department Care Team (Late st Contact Info) Description 07/18/2025 3:30 PM EDT Office Visit [facility] [address], [address]st [place] [address] Allyn Toribio NP [address] [place] [address] Coronary artery disease involving [place] cour[place] ore[place] coronary artery of [place] heart without angina pectoris (Primary Dx); Essential hypertension; 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 More than 4 times per year 11/11/2022 Do you belong to any clubs o r organizations such as restorationist groups, unions, fraternal or athletic groups, or [...] place to sleep or slept in a alf (including now)? No 11/11/2022 AUDIT-C Answer Date [...] Sign Reading Time Taken Comments Blood Pressure 82/56 07/18/2025 3:36 PM EDT Pulse 76 07/18/2025 3:36 PM EDT Temperature - - Respiratory Rate - - Oxygen Saturation 97% 07/18/2025 3:36 PM EDT Inhaled Oxygen Concentration - - Weight 58.1 kg (128 lb) 07/18/2025 3:36 PM EDT Height 147.3 cm (4' 10 ) 07/18/2025 3:36 PM EDT Body Mass Index 26.75 07/18/2025 3:36 PM EDT documented in this encounter Functional [...] documented in this encounter Progress Notes * Allyn Toribio NP - 07/18/2025 3:30 PM EDT Subjective Patient ID: Jose Sims is a 64 y.o. female who presents for Follow-up. HPI Patient here for follow up. Established with Dr. Mack in general cardiology clinic. Has PMH of DVTs, noon-small cell lung carcinoma, HTN, HLD, and CAD s/p LHC done 10/2022 revealing non-obstructive disease, and LHC done 04/25/2024 revealing some disease in the mid RCA, otherwise disease was minimal, she did have small caliber vessels. Last echo done 06/13/25 revealing pEF 60-65 with no RWA and normal diastolic parameters. Patient was recently admitted at [facility]TI and AMS. Social History: Social History Tobacco Use Smoking [...] Never Drug use: Never Ready to quit: Not Answered Counseling given: Not Answered Tobacco comments: Offered patient an appointment at the health department for smoking cessation classes. Patient declined. Review of Systems Constitutional: Negative. HENT: Negative. Eyes: Negative. Respiratory: Negative. Negative for shortness of breath. Cardiovascular: Negative. Negative for chest pain and palpitations. Gastrointestinal: Negative. Endocrine: Negative. Musculoskeletal: Negative. Skin: Negative. Neurological: Negative. Hematological: Negative. Psychiatric/Behavioral: Negative. Objective Visit Vitals BP 82/56 (BP Location: Right arm, Patient Position: Sitting, BP Cuff Size: Adult) Pulse 76 Ht 4' 10 (1.473 m) Wt 128 lb (58.1 kg) SpO2 97% BMI 26.75 kg/m?? Smoking Status Every Day BSA 1.51 m?? Physical Exam Constitutional: Appearance: Normal appearance. HENT: Head: Normocephalic. Nose: Nose normal. Eyes: Pupils: Pupils are equal, round, and reactive to light. Cardiovascular: Rate and Rhythm: Normal rate and regular rhythm. Pulses: Normal pulses. Heart sounds: No murmur heard. No gallop. Pulmonary: Effort: Pulmonary effort is normal. No respiratory distress. Breath sounds: No wheezing. Abdominal: General: Bowel sounds are normal. Palpations: There is no mass. Musculoskeletal: General: Normal range of motion. Cervical back: Normal range of motion. Right lower leg: No edema. Left lower leg: No edema. Skin: General: Skin is warm and dry. Neurological: General: No focal deficit present. Mental Status: She is alert. Psychiatric: Mood and Affect: Mood normal. Behavior: Behavior normal. Labs Reviewed - No data to display Assessment/Plan 1. Coronary artery disease involving [place] ore[place] coronary artery of [place] heart without angina pectoris - ECG 12 lead; Future 2. Essential hypertension 3. 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 Non-small cell cancer of right lung 5. Paroxysmal atrial fibrillation - Ambulatory referral/appointment with Cardiac Electrophysiology; Future Other orders - isosorbide mononitrate 20 MG tablet; Take 1 tablet (20 mg) by mouth in the morning and at bedtime. Hold for systolic blood pressure less than or equal to 100 mmHg - atorvastatin (Lipitor) 80 MG tablet; Take 1 tablet (80 mg) by mouth at bedtime. - potassium chloride CR (Klor-Con M20) 20 MEQ ER tablet; Take 1 tablet (20 mEq) by mouth in the morning and at bedtime. - magnesium oxide (Mag-Ox) tablet; Take 1 tablet (400 mg) by mouth at bedtime. - bumetanide (Bumex) 2 MG tablet; Take 1 tablet (2 mg) by mouth in the morning and at bedtime. Holdfor systolic blood pressure less than or equal to 100 mmHg The medication list for this visit has been reviewed and reconciled. Reviewed by Zhanna Cisneros (Registered Nurse) on 07/18/25 at 1538 and confirmed by Allyn Toribio NP documented in this encounter Plan of Treatment Upcoming Encounters Date Type Department Care Team (Late st Contact Info) Description 08/27/2025 8:45 AM EDT Office Visit [facility] [address], 10th [place] [address] Rachel Pagan MD [address] [place] [address] 08/28/2025 1:00 PM EDT Office Visit [facility]THOPEDIC PODIATRY PRACTICE [address], 6th [place] [address] Yazan Castro DPM [address] [place] [address] 08/29/2025 10:30 AM EDT Appointment [facility] MEDICAL ONCOLOGY [address], [address] [place] [address] 09/06/2025 1:45 PM EDT Appointment [facility] ULTRASOUND [address], [address] [place] [phone] 09/12/2025 9:30 AM EDT Appointment [facility] MRI BLDG D [address], [place] [address] 09/28/2025 9:30 AM EST Office Visit [facility] PRACT[facility] [address], 1st [place] [address] Ky Jewell MD [address] [place] [address] 11/05/2025 2:45 PM EST Office Visit [facility] NEUROLOGY [facility]ACT[facility] [address], 8[address] [place] [address] Ruddy Mayes MD [address] [place] [address] 12/31/2025 11:30 AM EST Office Visit [facility]PHR[facility] [address] [phone] 01/22/2026 9:00 AM EDT Office Visit [facility] [address], [address] [place] [address] Allyn Toribio NP [address] [place] [phone] Scheduled Referrals Name Type Priority Associated Diagnoses Order Schedule Ambulatory referral/appointment with Cardiac Electrophysiology Outpatient Referral Routine Paroxysmal atrial fibrillation Expected: 07/18/2025 (Approximate), Expires: 07/18/2026 documented as of this encounter Goals Goal Patient Goal Type Associated Problems Recent Progress Patient-Stated? Author Patient's support system will participate in treatment General Emily Ny documented as of this encounter Procedures Procedure Name Priority Date/Time Associated Diagnosis Comments ECG 12-LEAD Routine 07/18/2025 3:43 PM EDT Coronary artery disease involving [place] coronary artery of [place] heart without angina pectoris documented in this encounter Results * ECG 12 lead (07/18/2025 3:43 PM EDT) HEART RATE 77 bpm CPACS RR INTERVAL 784 ms CPACS ATRIAL RATE 76 ms CPACS P-R INTERVAL 125 ms CPACS P DURATION 102 ms CPACS P HORIZONTAL AXIS 5 deg CPACS P FRONT AXIS 20 deg CPACS Q ONSET 501 ms CPACS QRSD INTERVAL 89 ms CPACS QT INTERVAL 344 ms CPACS QTCB 389 ms CPACS QTCF 373 ms CPACS QRS HORIZONTAL AXIS deg CPACS QRS AXIS -10 deg CPACS I-40 HORIZONTAL AXIS 67 deg CPACS I-40 FRONT AXIS -24 deg CPACS T-40 HORIZONTAL AXIS 266 deg CPACS T-40 FRONT AXIS -7 deg CPACS T HORIZONTAL AXIS deg CPACS T WAVE AXIS 219 deg CPACS S-T HORIZONTAL AXIS deg CPACS S-T FRONT AXIS 173 deg CPACS 07/18/2025 3:43 PM EDT Impressions CPACS - 07/18/2025 5:29 PM EDT - ABNORMAL ECG - Sinus rhythm PROBABLE inferior infarct, age indeterminate NONSPECIFIC T abnormalities, lateral leads Narrative Procedure Note Santos Sanchez MD - 07/18/2025 IMPRESSION: - ABNORMAL ECG - Sinus rhythm PROBABLE inferior infarct, age indeterminate NONSPECIFIC T abnormalities, lateral leads us Santos Sanchez MD ECG ORDERABLES Final Result CPACS documented in this encounter Visit Diagnoses Diagnosis Coronary artery disease involving [place] coronary artery of [place] heart without angina pectoris- Primary Essential hypertension Unspecified essential hypertension 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, 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 Paroxysmal atrial fibrillation Atrial fibrillation documented in this encounter Additional Health Concerns Assessment Noted Time PHQ-9 Depression Total Score: 0 06/23/20 25 10:00 AM EDT documented as of this encounter Care Teams Wood Block Artist Relationship Specialty Start Date End Date Lizandro Khan NP [address] [facility] [place] [address] PCP - General Family Medicine 03/20/25 07/22/25 Rachel Pagan MD [address] [place] [address] Consulting Physician Oncology 11/11/22 Pati Rucker APRN [address] [place] [phone] Nurse Practitioner Oncology 12/21/22 Sosa Gardner APRN [address] [place] [address] Nurse Practitioner Oncology 06/24/23 Linda Elizabeth DO [address] [place] [address] Consulting Physician Oncology 03/01/25 Elsa Vazquez [address] [place] [address] Nurse Navigator Oncology 06/05/25 07/19/25 Angie Murray RN [address] [place] [address] Nurse Navigator Oncology 06/26/25 documented as of this encounter
--- OUTSIDE RECORDS SUMMARY | 2025-07-20 07:33 | XMS_ITS | Encounter Summary ---
Author Organization 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 cell cancer of right lung Procedures MR cervical spine w and wo contrast Linda Elizabeth DO [address] [place] [address] Phone: tel: fax: [facility], [facility] [address] [place] [address] Phone: tel: fax: Referral ID Status Reason Start Date Expiration Date Visits Requested Visits Authorized [id number] Authorized Specialty Services Required 03/01/2025 10/16/2025 1 2 Encounter Details Date Type Department Care Team (Latest Contact Info) Description 07/20/2025 7:33 AM EDT - 07/20/2025 11:59 PM EDT Hospital Encounter [facility] MRI BLDG D [address], [address]ld[address] [place] [address] Discharge Disposition: Home or Self Care Social [...] How often do you attend chur or voodoo services? More than 4 times per year 11/11/2022 Do you belong to any clubs o r organizations such as voodoo groups, unions, fraternal or athletic groups, or [...] place to sleep or slept in a fdc (including now)? No 11/11/2022 AUDIT-C Answer Date [...] things needed for daily living? No 06/23/2025 [facility] Utilities Answer Date Recorded In the past 12 months has th e [employer], gas, oil, or water [employer] threatened to shut off services in your [...] this encounter Medications at Time of Discharge apixaban (Eliquis) 5 MG tablet Take 1 tablet (5 mg) by mouth in the morning and at bedtime. 180 tablet 3 5 atorvastatin (Lipitor) 80 MG tabletIndications:C erebrovascular Accident Take 1 tablet (80 mg) by mouth at bedtime. 90 tablet 3 5 07/13/20 26 bumetanide (Bumex) 2 MG tablet Take 1 tablet (2 mg) by mouth in the morning and at bedtime. Hold for systolic blood pressure less than or equal to 100 mmHg 180 tablet 3 5 07/13/20 26 carvedilol (Coreg) 12.5 MG tablet Take 1 tablet (12.5 mg) by mouth with breakfast and with evening meal. Hold for systolic blood pressure less than or equal to 100 mmHg or heart rate less than or equal to 60 bpm 60 tablet 5 DULoxetine (Cymbalta) [address] capsule Take 1 capsule (60 mg) by mouth in the morning. 30 capsule 5 empagliflozin (Jardiance) 10 MG Take 1 tablet (10 mg) by mouth in the morning. 30 tablet 5 folic acid (Folvite) 1 MG tablet Take 1 tablet (1 mg) by mouth in the morning. 30 tablet 11 5 06/23/20 gabapentin (Neurontin) 800 MG tablet Take 0.5 tablets (400 mg) by mouth in the morning and at bedtime. Take morning of procedure 5 ipratropium-albuter ol (Duo-Neb) 0.5-2.5 mg/3 mL nebulizer solution Take 3 mL by nebulization every 6 (six) hours if needed for wheezing. 360 mL 5 isosorbide mononitrate 20 MG tablet Take 1 tablet (20 mg) by mouth in the morning and at bedtime. Hold for systolic blood pressure less than or equal to 100 mmHg 60 tablet 5 magnesium oxide (Mag-Ox) tablet Take 1 tablet (400 mg) by mouth at bedtime. 90 tablet 3 5 07/13/20 26 metFORMIN (Glucophage) 500 MG tablet Take 1 tablet (500 mg) by mouth with breakfast and with evening meal. 60 tablet 5 ondansetron ODT (Zofran-ODT) 8 MG disintegrating tablet DISSOLVE 1 TABLET ON TONGUE FOUR TIMES DAILY NEEDED FOR NAUSEA OR VOMITING 5 pantoprazole (ProtoNix) 40 MG EC tablet Take 1 tablet (40 mg) by mouth before breakfast. Do not crush, chew, or split. 30 tablet 5 cyancobalamin (Vitamin B-12) 500 MCG tablet Take 1 tablet (500 mcg) by mouth in the morning. Do not take morning of procedure 30 tablet 5 07/22/20 25 melatonin 3 MG tablet Take 2 tablets (6 mg) by mouth at bedtime. 60 tablet 5 07/22/20 25 potassium chloride CR (Klor-Con M20) 20 MEQ ER tablet Take 1 tablet (20 mEq) by mouth in the morning and at bedtime. 60 tablet 5 08/17/20 25 valproic acid (Depakene) 250 MG/5ML oral liquid Take 5 mL (250 mg) by mouth every 8 (eight) hours. 450 mL 5 08/06/20 25 documented as of this encounter Plan of Treatment Upcoming Encounters Date Type Department Care Team (Late st Contact Info) Description 08/27/2025 8:45 AM EDT Office Visit [facility] [address] [place] [address] Rachel Pagan MD [address] [place] [address] 08/28/2025 1:00 PM EDT Office Visit [facility] [address], [address]th [place] [address] Yazan Castro DPM [address] [place] [address] 08/29/2025 10:30 AM EDT Appointment [facility] MEDICAL ONCOL[facility]Y [address], [address] [place] [address] 09/06/2025 1:45 PM EDT Appointment [facility] ULTRASOUND [address], 2nd [place] [address] 09/12/2025 9:30 AM EDT Appointment [facility] MRI BLDG D [address], [place] [address] 09/28/2025 9:30 AM EST Office Visit [facility] [address], 1st [place] [address] Ky Jewell MD [address] [place] [phone] 11/05/2025 2:45 PM EST Office Visit [facility] [address], 8th [place] [address] Ruddy Mayes MD [address] [place] [address] 12/31/2025 11:30 AM EST Office Visit [facility] [address] [phone] 01/22/2026 9:00 AM EDT Office Visit [facility] [address], 1st Floor [place] [phone] Allyn Toribio NP [address] [place] [phone] documented as of this encounter Goals Goal Patient Goal Type Associated Problems Recent Progress Patient-Stated? Author Patient's support system will participate in treatment General Emily Ny documented as of this encounter Procedures Procedure Name Priority Date/Time Associated Diagnosis Comments MR CERVICAL SPINE W AND WO CONTRAST Routine 07/20/2025 9:36 AM EDT Metastasis to brain Non-small cell cancer of right lung documented in this encounter Visit Diagnoses Not on filedocumented in this encounter Administered Medications Inactive Administered Medications - up to 3 most recent administrations Medication Order MAR Action Action Date Dose Rate Site gadoteridol (Prohance) injection 3,351.6 mg 3,351.6 mg (12 mL), Intravenous, Once in imaging, Starting on Wed07/20/25 at 0937, For 1 dose Given 07/20/2025 9:37 AM EDT 3,351.6 mg documented in this encounter Additional Health Concerns Assessment Noted Time PHQ-9 Depression Total Score: 0 06/23/20 25 10:00 AM EDT documented as of this encounter Care Teams Film And Video Editor Relationship Specialty Start Date End Date Lizandro Khan NP [address] [place] [address] PCP - General Family Medicine 03/20/25 07/22/25 Rachel Pagan MD [address] [place] [phone] Consulting Physician Oncology 11/11/22 Pati Rucker APRN [address] [place] [phone] Nurse Practitioner Oncology 12/21/22 Sosa Gardner APRN [facility] [place] [phone] Nurse Practitioner Oncology 06/24/23 Linda Elizabeth DO [address] [place] [id number] Consulting Physician Oncology 03/01/25 Angie Murray RN [address] [place] [address] Nurse Navigator Oncology 06/26/25 documented as of this encounter
--- OUTSIDE RECORDS SUMMARY | 2025-07-20 07:33 | XMS_ITS | Encounter Summary ---
Author Organization [facility] nter Address [address] [place] [address] Care Team Providers Care Tiller Man Name Role Phone Rachel Pagan MD Unavailable Pati Rucker LABORATORY TECHNICAL SPECIALIST Unavailable [phone] Sosa Gardner LABORATORY TECHNICAL SPECIALIST Unavailable [phone] Linda Elizabeth DO Unavailable Lizandro Khan NP Primary Care Provider [phone] Angie Murray RN Unavailable Unavailab le Reason for Referral * CT (Routine) - Closed Specialty Diagnoses / Procedures Referred By Contac t Referred To Contact Radiology Diagnoses Non-small cell cancer of right lung Procedures PET/CT bone skull base to mid thigh Rachel Pagan MD [address] [place] [address] Phone: tel: fax: [facility], [facility] [address] [place] [address] Phone: tel: fax: Referral ID Status Reason Start Date Expiration Date V isits Requested Visits Authorized [id number] Closed Specialty Services Required 06/12/2025 09/10/2025 1 1 Reason for Visit * CT (Routine) - Closed Specialty Diagnoses / Procedures Referred By Dorothy ceballos Referred To Contact Radiology Diagnoses Non-small cell cancer of right lung Procedures PET/CT bone skull base to mid thigh Rachel Pagan MD [address] [facility] [place] [address] Phone: tel: fax: [facility], [facility] [address] [facility] [place] [address] Phone: tel: fax: Referral ID Status Reason Start Date Expiration Date V isits Requested Visits Authorized [id number] Closed Specialty Services Required 06/12/2025 09/10/2025 1 1 Encounter Details Date Type Department Care Team (Latest Contact Info) Description 07/20/2025 7:33 AM EDT - 07/20/2025 11:59 PM EDT Hospital Encounter [facility] D [address], [facility] [place] [address] Non-small cell cancer of right lung Discharge Disposition: Home or Self Care Social [...] often do you attend chur ch or caodaism services? More than 4 times per year 11/11/2022 Do you belong to any clubs o r organizations such as baptist groups, unions, fraternal or athletic groups, or [...] place to sleep or slept in a jail (including now)? No 11/11/2022 AUDIT-C Answer Date [...] things needed for daily living? No 06/23/2025 [facility] Utilities Answer Date Recorded In the past 12 months has [employer], gas, oil, or water [employer] threatened to shut off services in your [...] the morning. 30 tablet 11 5 06/23/20 26 gabapentin (Neurontin) 800 MG tablet Take 0.5 [...] Description 08/27/2025 8:45 AM EDT Office Visit [facility] [address], 10[address] Floor [place] [address] Rachel Pagan MD [address] [facility] [place] [address] 08/28/2025 1:00 PM EDT Office Visit [facility] [address], [address] [place] [phone] Yazan Castro DPM [address] [place] [phone] 08/29/2025 10:30 AM EDT Appointment [facility] MEDICAL ONCOL[facility] [address], [address] [place] [address] 09/06/2025 1:45 PM EDT Appointment [facility] ULTRASOUND [address], [address] [place] [phone] 09/12/2025 9:30 AM EDT Appointment [facility] MRI BLDG D [address], [facility] D [place] [phone] 09/28/2025 9:30 AM EST Office Visit [facility]IOLOG[facility]ACT[facility] [address], [address] [place] [phone] Ky Jewell MD [address] [place] [address] 11/05/2025 2:45 PM EST Office Visit [facility]UR[facility] [address], [address] [place] [address] Ruddy Mayes MD [address] [place] [address] 12/31/2025 11:30 AM EST Office Visit [facility] [address] [phone] 01/22/2026 9:00 AM EDT Office Visit [facility] [address], [address] [place] [address] Allyn Toribio, GRAHAM [address] [place] [phone] documented as of this encounter Goals Goal Patient Goal Type Associated Problems Recent Progress Patient-Stated? Author Patient's support system will participate in treatment General Ruba Nyita [place] documented as of this encounter Procedures Procedure Name Priority Date/Time Associated Diagnosis Comments PET/CT BONE SKULL BASE TO MID THIGH Routine 07/20/2025 10:56 AM EDT Non-small cell cancer of right lung POCT GLUCOSE PERFORMABLE Routine 07/20/2025 9:49 AM EDT documented in this encounter Results * PET/CT bone skull base to mid thigh (07/20/2025 10:56 AM EDT) Anatomical Region Laterality Modality Body Positron Emissio n Tomography (PET) 07/20/2025 9:27 AM EDT Impressions 07/20/2025 1:05 PM EDT Overall, there is progression of FDG avid disease to the right lung base with newly developed FDG avid lymph nodes to the right hilum and subcarinal ernestine station. Persistent inferior left infrahilar enrestine disease. Amorphous uptake is also seen to soft solid left upper lobe confluent opacity, concerning for additional site of neoplastic disease versus infectious or inflammatory process. Mixed density opacities are noted bilaterally, indeterminate, poorly evaluated by PET. Recommend CT chest surveillance for these findings. Electronically signed by: Anat Plasencia MD 07/20/2025 01:05 PM EDT RP Narrative 07/20/2025 1:05 PM EDT EXAMINATION: SKULL BASE TO MID THIGH F-18 FDG PET/CT CLINICAL INDICATION: Female, 64 years old. Stage IV non-small cell lung cancer TECHNIQUE: Low dose, non-diagnostic quality CT images were acquired from the skull base to the mid thighs for attenuation correction and anatomic localization. This was followed by positron emission tomography (PET) imaging in the same distribution. Radiopharmaceutical: 12.7 mCi of F-18 FDG. Recent blood sugar level: 54 mg/dl. Uptake time: 62 minutes. COMPARISON: November 10, 2024 CORRELATION: CT chest, abdomen and pelvis May 15, 2025 FINDINGS: Reference background hepatic uptake maximum SUV: 2.4 Reference mediastinal blood pool maximum SUV: 2.3 HEAD AND NECK: Physiologic radiotracer distribution. Non-diagnostic CT findings: None. CHEST: Intensely FDG avid right basilar irregular confluent opacity, concerning for neoplasm. Maximum SUV of 5.6. Compared to prior study from November 10, 2024, the anatomic extent of this lesion has increased. Focal nodular uptake is also seen anteriorly, axial image 121, maximum SUV of 3.1 to underlying focal confluent nodule. Faint uptake is seen on the left on axial image 102, maximum SUV of 1.1, underlying amorphous mixed density opacity seen on CT. This finding is concerning for additional site of neoplastic disease. Intense FDG uptake is also seen to the right hilar and subcarinal lymph nodes as well as left para-aortic/inferior hilar lymph nodes, maximum SUV of 4.2 at the subcarinal ernestine station. Compared to prior study, the right hilar and subcarinal uptake is new. Focal uptake to the left para-aortic/left infrahilar region is also present on prior study. Non-diagnostic CT findings: Right chest wall Port-A-Cath with tip at the cavoatrial junction. Moderate coronary artery calcification. Mixed density opacities also seen to the right upper lobe, for example axial image 94 and to the lingula, axial image 140, poorly evaluated by PET. ABDOMEN AND PELVIS: Wide range of physiologic bowel uptake, limits evaluation. Kamille-bladder artifact, limits evaluation of FDG uptake to adjacent soft tissues. Non-diagnostic CT findings: Photopenic right renal cyst. IVC filter noted. Moderate aortoiliac atherosclerosis. MUSCULOSKELETAL: Physiologic radiotracer distribution. Non-diagnostic CT findings: None. Procedure Note Anat Plasencia S - 07/20/2025 EXAMINATION: SKULL BASE TO MID THIGH F-18 FDG PET/CT CLINICAL INDICATION: Female, 64 years old. Stage IV non-small cell lungcancer TECHNIQUE: Low dose, non-diagnostic quality CT images were acquired fromthe skull base to the mid thighs for attenuation correction and anatomiclocalization. This was followed by positron emission tomography (PET)imaging in the same distribution. Radiopharmaceutical: 12.7 mCi of F-18 FDG. Recent blood sugar level: 54 mg/dl. Uptake time: 62 minutes. COMPARISON: November 10, 2024 CORRELATION: CT chest, abdomen and pelvis May 15, 2025 FINDINGS: Reference background hepatic uptake maximum SUV: 2.4 Reference mediastinal blood pool maximum SUV: 2.3 HEAD AND NECK: Physiologic radiotracer distribution. Non-diagnostic CT findings: None. CHEST: Intensely FDG avid right basilar irregular confluent opacity, concerningfor neoplasm. Maximum SUV of 5.6. Compared to prior study from 2023, the anatomic extent of this lesion has increased. Focal nodular uptake is also seen anteriorly, axial image 121, maximum SUVof 3.1 to underlying focal confluent nodule. Faint uptake is seen on the left on axial image 102, maximum SUV of 1.1,underlying amorphous mixed density opacity seen on CT. This finding isconcerning for additional site of neoplastic disease. Intense FDG uptake is also seen to the right hilar and subcarinal lymphnodes as well as left para-aortic/inferior hilar lymph nodes, maximum SUVof 4.2 at the subcarinal ernestine station. Compared to prior study, the right hilar and subcarinal uptake is new.Focal uptake to the left para-aortic/left infrahilar region is alsopresent on prior study. Non-diagnostic CT findings: Right chest wall Port-A-Cath with tip at thecavoatrial junction. Moderate coronary artery calcification. Mixed densityopacities also seen to the right upper lobe, for example axial image 94and to the lingula, axial image 140, poorly evaluated by PET. ABDOMEN AND PELVIS: Wide range of physiologic bowel uptake, limits evaluation. Kamille-bladder artifact, limits evaluation of FDG uptake to adjacent softtissues. Non-diagnostic CT findings: Photopenic right renal cyst. IVC filter noted.Moderate aortoiliac atherosclerosis. MUSCULOSKELETAL: Physiologic radiotracer distribution. Non-diagnostic CT findings: None. IMPRESSION: Overall, there is progression of FDG avid disease to the right lung basewith newly developed FDG avid lymph nodes to the right hilum andsubcarinal ernestine station. Persistent inferior left infrahilar nodaldisease. Amorphous uptake is also seen to soft solid left upper lobe confluentopacity, concerning for additional site of neoplastic disease versusinfectious or inflammatory process. Mixed density opacities are notedbilaterally, indeterminate, poorly evaluated by PET. Recommend CT chestsurveillance for these findings. Electronically signed by: Anat Plasencia MD 07/20/2025 01:05 PM EDTRP Rachel Soriano MD IMG CT PROCEDURES Final Res ult * (ABNORMAL) POCT glucose (07/20/2025 9:49 AM EDT) Glucose 54(L) 70 - 110 mg/dL 07/20/2025 9:49 AM EDT [facility] Comment:No Action Lacing Presser Name Ángela Cantu PET SCAN TECH 07/20/2025 9:49 AM EDT [facility] Lacing Presser ID [id number] 07/20/2025 9:49 AM EDT [facility] Blood Capillary blood specimen / Unknown 07/20/2025 9:49 AM EDT 07/20/2025 9:49 AM EDT us Generic Provider Poct LAB POINT OF CARE TEST DOCKED DEVICE UNSOLICITED RESULTS Final Result Performing Organization Address City/State/[facility] Co de Phone Number [facility] [address] [place] [address], documented in this encounter Visit Diagnoses Diagnosis Non-small cell cancer of right lung documented in this encounter Administered Medications Inactive Administered Medications - up to 3 most recent administrations Medication Order MAR Action Action Date Dose Rate Site flurodeoxyglucose (F-18) radio-isotope injection 12.7 millicurie 12.7 millicurie, Intravenous, Once in imaging, Starting on Wed07/20/25 at 1000, For 1 dose New Bag 07/20/2025 9:50 AM EDT 12.7 millicuries Right Hand documented in this encounter Additional Health Concerns Assessment Noted Time PHQ-9 Depression Total Score: 0 06/23/20 10:00 AM EDT documented as of this encounter Care Teams Tiller Man Relationship Specialty Start Date End Date Lizandro Khan NP [address] [place] [address] PCP - General Family Medicine 03/20/25 07/22/25 Rachel Pagan MD [address] [place] [address] Consulting Physician Oncology 11/11/22 Pati Rucker APRN [address] [place], [place] [address] Nurse Practitioner Oncology 12/21/22 Sosa Gardner APRN [address] [place], [place] [address] Nurse Practitioner Oncology 06/24/23 Linda Elizabeth DO [address] [place] [address] Consulting Physician Oncology 03/01/25 Angie Murray, ROLDAN [address] [place] [address] Nurse Navigator Oncology 06/26/25 documented as of this encounter
--- OUTSIDE RECORDS SUMMARY | 2025-07-20 11:30 | XMS_ITS | Encounter Summary ---
Author Organization [facility] nter Address [address] [id number] Care Team Providers Care Glassware Defect Repairer Name Role Phone Rachel Pagan MD Unavailable [phone] Pati Rucker CORPORATE ACCOUNTANT Unavailable [phone] Sosa Gardner CORPORATE ACCOUNTANT Unavailable [phone] Linda Elizabeth DO Unavailable Lizandro Khan NP Primary Care Provider Angie Murray RN Unavailable Unavailab le Reason for Visit * Consultation (Routine) - Authorized Specialty Diagnoses / Procedures Referred By Contac t Referred To Contact Cardiology Diagnoses Paroxysmal atrial fibrillation Procedures NC OFFICE/OUTPATIENT NEW SF MDM 15 MINUTES NC OFFICE/OUTPATIENT NEW LOW MDM 30 MINUTES NC OFFICE/OUTPATIENT NEW MODERATE MDM 45 MINUTES NC OFFICE/OUTPATIENT NEW HIGH MDM 60 MINUTES NC OFFICE/OUTPATIENT ESTABLISHED SF MDM 10 MIN NC OFFICE/OUTPATIENT ESTABLISHED LOW MDM 20 MIN NC OFFICE/OUTPATIENT ESTABLISHED MOD MDM 30 MIN NC OFFICE/OUTPATIENT ESTABLISHED HIGH MDM 40 MIN Allyn Toribio NP [address] [place] [address] Phone: tel: fax: [facility] [address] [place] [address] Phone: tel: fax: Referral ID Status Reason Start Date Expiration Date Visits Requested Visits Authorized [id number] Authorized Specialty Services Required 07/18/2025 07/18/2026 10 3 Encounter Details Date Type Department Care Team (Late st Contact Info) Description 07/20/2025 11:30 AM EDT Office Visit [facility] [address] [place] [address] Ky Jewell MD [address] [facility] [place] [address] Paroxysmal atrial fibrillation (Primary Dx) Social History Tobacco Use Types Packs/Day Years [...] week 11/11/2022 How often do you attend [facility] or rastafari services? More than 4 times per year 11/11/2022 Do you belong to any clubs o r organizations such as lutheran groups, unions, fraternal or athletic groups, or [...] place to sleep or slept in a snf (including now)? No 11/11/2022 AUDIT-C Answer Date [...] things needed for daily living? No 06/23/2025 [facility] Utilities Answer Date Recorded In the [...] Sign Reading Time Taken Comments Blood Pressure 102/66 07/20/2025 11:29 AM EDT Pulse 78 07/20/2025 11:29 AM EDT Temperature - - Respiratory Rate - - Oxygen Saturation 93% 07/20/2025 11:29 AM EDT Inhaled Oxygen Concentration - - Weight 58.1 kg (128 lb) 07/20/2025 11:29 AM EDT Height 147.3 cm (4' 10 ) 07/20/2025 11:29 AM EDT Body Mass Index 26.75 07/20/2025 11:29 AM EDT documented in this encounter Functional [...] documented in this encounter Progress Notes * Ky Jewell MD - 07/20/2025 11:30 AM EDT She was referred for possible Watchman placement. She has metastatic small cell lung cancer and has had multiple complications from this. She has a ho PAF and had been on Xarelto for many years without issues. On chemo for small cell lung cancer developed severe thrombocytopenia and also initially DVT/ PE while on Xarelto; then had IVC filter placed and after a fall with cranial bleeding her blood thinnerswere withheld. She then developed multiple lacunal like infarcts felt to be embolic and due to low platelet count at the time Neuro advised a Watchman. At present she is on immunotherapy alone and her platetel count is now up to 183k. At presnt there is no strong contraindication to trying Eliquis rather than proceeding to a Watchman device in this patient with high risk for implant and uncertain longevity. I have advised to try eliquis 5 bid- recommended dose. We will start that and see how she does. Canalways reconsider the Watchman later depending on her course. documented in this encounter Miscellaneous Notes * Patient Education - Faviola Larson - 07/20/2025 11:24 AM EDT Images from the original note were not included. Patient Education Table of Contents Heart-Healthy Eating Plan To view videos and all your education online visit, [email or web address] or scan this QR code with your smartphone. Access to this content will in one year. Heart-Healthy Eating Plan Many factors influence your heart health, including eating and exercise habits. Heart health is also called coronary health. Coronary risk increases with abnormal blood fat (lipid) levels. A heart-healthy eating plan includes limiting unhealthy fats, increasing healthy fats, limiting salt (sodium) intake, and making other diet and lifestyle changes. What is my plan? Your health care provider may recommend that: You limit your fat intake to % or less of your total calories each day. You limit your saturated fat intake to % or less of your total calories each day. You limit the amount of cholesterol in your diet to less than mg per day. You limit the amount of sodium in your diet to less than mg per day. What are tips for following this plan? Cooking Cook foods using methods other than frying. Baking, boiling, grilling, and broiling are all good options. Other ways to reduce fat include: Removing the skin from poultry. Removing all visible fats from meats. Steaming vegetables in water or broth. Meal planning At meals, imagine dividing your plate into fourths: ? Fill one-half of your plate with vegetables and green salads. ? Fill one-fourth of your plate with whole grains. ? Fill one-fourth of your plate with lean protein foods. Eat 2??4 cups of vegetables per day. One cup of vegetables equals 1 cup (91 g) broccoli or cauliflower florets, 2 medium carrots, 1 large martinez pepper, 1 large sweet potato, 1 large tomato, 1 medium white potato, 2 cups (150 g) raw leafy greens. Eat 1??2? cups of fruit per day. One cup of fruit equals 1 small apple, 1 large banana, 1 cup (237 g) mixed fruit, 1 large orange, ? cup (82 g) dried fruit, 1 cup (240 mL) 100% fruit juice. Eat more foods that contain soluble fiber. Examples include apples, broccoli, carrots, beans, peas,and barley. Aim to get 25?30 g of fiber per day. Increase your consumption of legumes, nuts, and seeds to 4?5 servings per week. One serving of dried beans or legumes equals ? cup (90 g) cooked, 1 serving of nuts is ? oz (12 almonds, 24 pistachios,or 7 walnut halves), and 1 serving of seeds equals ? oz (8 g). Fats Choose healthy fats more often. Choose monounsaturated and polyunsaturated fats, such as olive and canola oils, avocado oil, flaxseeds, walnuts, almonds, and seeds. Eat more omega-3 fats. Choose salmon, mackerel, sardines, tuna, flaxseed oil, and ground flaxseeds.Aim to eat fish at least 2 times each week. Check food labels carefully to identify foods with trans fats or high amounts of saturated fat. Limit saturated fats. These are found in animal products, such as meats, butter, and cream. Plant sources of saturated fats include palm oil, palm kernel oil, and coconut oil. Avoid foods with partially hydrogenated oils in them. These contain trans fats. Examples are stick margarine, some tub margarines, cookies, crackers, and other baked goods. Avoid fried foods. General information Eat more home-cooked food and less restaurant, buffet, and fast food. Limit or avoid alcohol. Limit foods that are high in added sugar and simple starches such as foods made using white refinedflour (white breads, pastries, sweets). Lose weight if you are overweight. Losing just 5?10% of your body weight can help your overall health and prevent diseases such as diabetes and heart disease. Monitor your sodium intake, especially if you have high blood pressure. Talk with your health care provider about your sodium intake. Try to incorporate more vegetarian meals weekly. What foods should I eat? Fruits All fresh, canned (in natural juice), or frozen fruits. Vegetables Fresh or frozen vegetables (raw, steamed, roasted, or grilled). Green salads. Grains Most grains. Choose whole wheat and whole grains most of the time. Rice and pasta, including brown rice and pastas made with whole wheat. Meats and other proteins Lean, well-trimmed beef, veal, pork, and alford. Chicken and turkey without skin. All fish and shellfish. Wild duck, rabbit, pheasant, and venison. Egg whites or low-cholesterol egg substitutes. Dried beans, peas, lentils, and tofu. Seeds and most nuts. Dairy Low-fat or nonfat cheeses, including ricotta and mozzarella. Skim or 1% milk (liquid, powdered, or evaporated). Buttermilk made with low-fat milk. Nonfat or low-fat yogurt. Fats and oils Non-hydrogenated (trans-free) margarines. Vegetable oils, including soybean, sesame, sunflower, olive, avocado, peanut, safflower, corn, canola, and cottonseed. Salad dressings or mayonnaise made with a vegetable oil. Beverages Water (mineral or sparkling). Coffee and tea. Unsweetened ice tea. Diet beverages. Sweets and desserts Sherbet, gelatin, and fruit ice. Small amounts of dark chocolate. Limit all sweets and desserts. Seasonings and condiments All seasonings and condiments. The items listed above may not be a complete list of foods and beverages you can eat. Contact a dietitian for more options. What foods should I avoid? Fruits Canned fruit in heavy syrup. Fruit in cream or butter sauce. Fried fruit. Limit coconut. Vegetables Vegetables cooked in cheese, cream, or butter sauce. Fried vegetables. Grains Breads made with saturated or trans fats, oils, or whole milk. Croissants. Sweet rolls. Donuts. High-fat crackers, such as cheese crackers and chips. Meats and other proteins Fatty meats, such as hot dogs, ribs, sausage, winchester, rib-eye roast or steak. High-fat deli meats, such as salami and bologna. Caviar. Domestic duck and goose. Organ meats, such as liver. Dairy Cream, sour cream, cream cheese, and creamed cottage cheese. Whole-milk cheeses. Whole or 2% milk (liquid, evaporated, or condensed). Whole buttermilk. Cream sauce or high-fat cheese sauce. Whole-milk yogurt. Fats and oils Meat fat, or shortening. Powell butter, hydrogenated oils, palm oil, coconut oil, palm kernel oil. Solid fats and shortenings, including winchester fat, salt pork, lard, and butter. Nondairy cream substitutes. Salad dressings with cheese or sour cream. Beverages Regular sodas and any drinks with added sugar. Sweets and desserts Frosting. Pudding. Cookies. Cakes. Pies. Milk chocolate or white chocolate. Buttered syrups. Full-fat ice cream or ice cream drinks. The items listed above may not be a complete list of foods and beverages to avoid. Contact a dietitian for more information. Summary Heart-healthy meal planning includes limiting unhealthy fats, increasing healthy fats, limiting salt (sodium) intake and making other diet and lifestyle changes. Lose weight if you are overweight. Losing just 5?10% of your body weight can help your overall health and prevent diseases such as diabetes and heart disease. Focus on eating a balance of foods, including fruits and vegetables, low-fat or nonfat dairy, lean protein, nuts and legumes, whole grains, and heart-healthy oils and fats. This information is not intended to replace advice given to you by your health care provider. Make sure you discuss any questions you have with your health care provider. Document Released: 2009-08-10 Document Updated: 2022-12-07 Document Reviewed: 2022-12-07 [employer] Patient Education ? 2024 SeeJay. documented in this encounter Plan of Treatment Upcoming Encounters Date Type Department Care Team (Late st Contact Info) Description 08/27/2025 8:45 AM EDT Office Visit [facility] [address] 10[address] [place] [address] Rachel Pagan MD [address] [place] [address] 08/28/2025 1:00 PM EDT Office Visit [facility] [address] 6[address] [place] [address] Yazan Castro DPM [address] [place] [address] 08/29/2025 10:30 AM EDT Appointment [facility] [address] [place] [address] 09/06/2025 1:45 PM EDT Appointment [facility] [address] [place] [id number] 09/12/2025 9:30 AM EDT Appointment [facility] MRI BLDG D [address], [facility] [place] [address] 09/28/2025 9:30 AM EST Office Visit [facility] [address] [place] [address] Ky Jewell MD [address] [place] [id number] 11/05/2025 2:45 PM EST Office Visit [facility] [address] [place] [address] Ruddy Mayes MD [facility] [place] [address] 12/31/2025 11:30 AM EST Office Visit [facility] [address] [id number] 01/22/2026 9:00 AM EDT Office Visit [facility] [address] [place] [address] Allyn Toribio NP [address] [place] [address] documented as of this encounter Goals Goal Patient Goal Type Associated Problems Recent Progress Patient-Stated? Author Patient's support system will participate in treatment General Emily Ny documented as of this encounter Visit Diagnoses Diagnosis Paroxysmal atrial fibrillation- Primary Atrial fibrillation documented in this encounter Additional Health Concerns Assessment Noted Time PHQ-9 Depression Total Score: 0 06/23/20 25 10:00 AM EDT documented as of this encounter Care Teams Glassware Defect Repairer Relationship Specialty Start Date End Date Lizandro Khan NP [address] [place] [address] PCP - General Family Medicine 03/20/25 07/22/25 Rachel Pagan MD [address] [facility] [place] [address] Consulting Physician Oncology 11/11/22 Pati Rucker APRN [address] [facility] [place] [address] Nurse Practitioner Oncology 12/21/22 Sosa Gardner APRN [address] [facility] [place] [address] Nurse Practitioner Oncology 06/24/23 Linda Elizabeth DO [address] [facility] [place] [address] Consulting Physician Oncology 03/01/25 Angie Murray RN [address] [place] [address] Nurse Navigator Oncology 06/26/25 documented as of this encounter
--- OUTSIDE RECORDS SUMMARY | 2025-07-26 14:45 | XMS_ITS | Encounter Summary ---
Author Organization [facility] Address [address] [place] [address] Care Team Providers Care Water Hauler Name Role Phone Italo Camejo VICKY Primary Care Provider [phone] Encounter Details Date Type Department Care Team (Late st Contact Info) Description 07/26/2025 2:45 PM EDT [facility] [address] [place] [address] Pepe Cabrera MD [address] [place] [address] Brain mass (Primary Dx) Social History Tobacco Use Types [...] Sign Reading Time Taken Comments Blood Pressure 108/78 07/26/2025 3:05 PM EDT Pulse - - Temperature - - Respiratory Rate - - Oxygen Saturation - - Inhaled Oxygen Concentration - - Weight 61.2 kg (135 lb) 07/26/2025 3:05 PM EDT Height 147.3 cm (4' 10 ) 07/26/2025 3:05 PM EDT Body Mass Index 28.22 07/26/2025 3:05 PM EDT documented in this encounter Miscellaneous Notes * Progress Notes - Dennis Fallon MD - 07/26/2025 2:45 PM EDT Neurosurgery Clinic Note ? Visit Reason: Lung adenocarcinoma brain Mets follow up. HPI: Jose Sims is a 64 y.o. female patient with past medical history of NSCLC who initially presented with involuntary movement with the left upper extremities believed to be seizures. CT head revealed a mass lesion and she underwent a right frontal craniotomy for tumor resection on 11/22/24. She then underwent gamma knife radiosurgery to the tumor bed. 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 Patient was on chemotherapy which was recently discontinued due to thrombocytopenia, she remains onKeytruda. Of note, on 03/19/25 she was found to have PE while on xarelto (for A-fib) for which she was placed on Lovenox which was discontinue due to bleeding. She had an IVC filter placed thereafter. Today, the patient reports feeling well. Her daughter is at her side and reports patient is slightly unsteady has presented 4 falls in the last month. Visit Vitals BP 108/78 Ht 1.473 m (4' 10 ) Wt 61.2 kg (135 lb) BMI 28.22 kg/m?? OB Status Postmenopausal Smoking Status Every Day BSA 1.58 m?? ? Neuro Exam: In wheelchair GCS (EMV): 465 Awake, alert, oriented x3 Follows commands appropriately Speech clear PERRL, EOMI MAHAJAN symmetrically, no drift Strength 5/5 throughout Sensation intact Imaging: Severely motion degraded but no evidence of gross recurrence in braini MRI dated 06/12/05 or CTH from 06/23/25 No orders of the defined types were placed in this encounter. Assessment and Plan:? Jose Sims is a 64 y.o. female patient with past medical history of NSCLC and possibleseizures, s/p right frontal craniotomy for tumor resection on 11/22/24. She then underwent gamma knife radiosurgery to the tumor bed. 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 Patient is clinically stable. MRI from May and CT scan from last month done showed clear evidence of tumor recurrence. We would like to see the patient in 3 months with a new brain MRI with and without contrast. Of note, the patient will follow up with Neurology next Wednesday. She was advised to discussed with the any concerns about seizures. Follow-up information was provided and the patient knows to call the clinic with any questions or concerns. Dennis Valladares MD Resident Physician, PGY-2 Department of Neurosurgery [facility] Cosigned by Pepe Cabrera MD at 07/26/2025 3:45 PM EDT Associated attestation - Pepe Cabrera MD - 07/26/2025 3:45 PM EDT I saw and evaluated the patient with the resident/fellow. I discussed the case with the resident/fellow and agree with the findings and plan as documented. documented in this encounter Plan of Treatment Not on file documented as of this encounter Visit Diagnoses Diagnosis Brain mass- Primary Unspecified condition of brain documented in this encounter Additional Health Concerns Assessment Noted Time A fall risk assessment has been complete d for the patient 07/26/2025 3:13 PM EDT A Body Mass Index follow-up plan has been documented for the patient 07/26/2025 3:46 PM EDT documented as of this encounter Care Teams Water Hauler Relationship Specialty Start Date End Date Italo Camejo APRN [address] [place] [address] PCP - General 11/18/23 documented as of this encounter
--- OUTSIDE RECORDS SUMMARY | 2025-07-30 09:38 | XMS_ITS | Encounter Summary ---
Author Organization [facility] nter Address [address] [place] [address] Care Team Providers Care Seaming Machine Operator Name Role Phone Rachel Pagan MD Unavailable Pati Rucker CALENDERING MACHINE OPERATOR Unavailable [phone] Sosa Gardner CALENDERING MACHINE OPERATOR Unavailable [phone] Linda Elizabeth DO Unavailable Angie Murray RN Unavailable Unavailab Lizandro Islas NP Primary Care Provider [phone] Reason for Visit * Auth/Cert (Routine) Specialty Diagnoses / Procedures Referred By Contac t Referred To Contact Diagnoses Malignant neoplasm of unspecified part of unspecified bronchus or lung Procedures OR PEMETREXED INJECTION [facility] [address] [place] [address] Phone: tel: [facility] [address] [place] [address] Phone: tel: fax: Referral ID Status Reason Start Date Expiration Date Visits Re quested Visits Authorized [id number] 1 1 Encounter Details Date Type Department Care Team (Latest Contact Info) Description 07/30/2025 9:38 AM EDT - 07/30/2025 11:59 PM EDT Hospital Encounter [facility] [address] [place] [address] Non-small cell cancer of right lung; Stage IV squamous cell carcinoma of lung, unspecified laterality; Non-small cell lung cancer, unspecified laterality Discharge [...] week 11/11/2022 How often do you attend caro center or congregation services? More than 4 times per year 11/11/2022 Do you belong to any clubs o r organizations such as episcopalian groups, unions, fraternal or athletic groups, or [...] place to sleep or slept in a [facility] (including now)? No 11/11/2022 AUDIT-C Answer Date [...] equal to 60 bpm 60 tablet 5 folic acid (Folvite) 1 MG [...] crush, chew, or split. 30 tablet 5 potassium chloride CR (Klor-Con M20) 20 MEQ ER tablet Take 1 tablet (20 mEq) by mouth in the morning and at bedtime. 60 tablet 5 08/17/20 25 valproic acid (Depakene) 250 MG/5ML oral liquid Take 5 mL (250 mg) by mouth every 8 (eight) hours. 450 mL 08/06/20 25 documented as of this encounter Progress Notes * Isabelle Cordero - 07/30/2025 10:45 AM EDT Lexie Sims is here for a Mediport Draw. Cleaned right subclavian mediport with chlorprep, allowed to dry, accessed with 3/4 20 g Crowley needle using aseptic technique. blood return noted. flushed with 10 ml NS, 10 ml blood drawn and wasted. Blood drawn and sent to lab. Flushed with 10 ml normal saline and 5 ml heparinized saline, needle removed. bandage applied, no bleeding , redness or edema noted. patient tolerated well. Patient discharged to see Dr Chaz Soriano documented in this encounter Plan of Treatment Upcoming Encounters Date Type Department Care Team (Late st Contact Info) Description 08/27/2025 8:45 AM EDT Office Visit [facility] [address] [place] [address] Rachel Pagan MD [address] [place] [address] 08/28/2025 1:00 PM EDT Office Visit [facility] [address] [place] [address] Yazan Castro DPM [address] [place] [address] 08/29/2025 10:30 AM EDT Appointment [facility] [address] [place] [address] 09/06/2025 1:45 PM EDT Appointment [facility] [address] [place] [address] 09/12/2025 9:30 AM EDT Appointment [facility] D [address], [place] [address] 09/28/2025 9:30 AM EST Office Visit [facility] [address], [address] [place] [facility] [place] [address] Ky Jewell MD [address] [place] [address] 11/05/2025 2:45 PM EST Office Visit [facility] [address] [place] [address] Ruddy Mayes MD [address] [facility] [place] [address] 12/31/2025 11:30 AM EST Office Visit [facility] [address] [phone] 01/22/2026 9:00 AM EDT Office Visit [facility] [address] [place] [address] Allyn Toribio NP [address] [place] [phone] documented as of this encounter Goals Goal Patient Goal Type Associated Problems Recent Progress Patient-Stated? Author Patient's support system will participate in treatment General Emily Ny documented as of this encounter Procedures Procedure Name Priority Date/Time Associated Diagnosis Comments CBC WITH AUTO DIFFERENTIAL Routine 07/30/2025 9:57 AM EDT Non-small cell cancer of right lung TSH Routine 07/30/2025 9:57 AM EDT Non-small cell lung cancer, unspecified laterality T4, FREE Routine 07/30/2025 9:57 AM EDT Non-small cell lung cancer, unspecified laterality COMPREHENSIVE METABOLIC PANEL Routine 07/30/2025 9:57 AM EDT Non-small cell cancer of right lung documented in this encounter Results * (ABNORMAL) Comprehensive metabolic panel (07/30/2025 9:57 AM EDT) Sodium 140 134 - 143 mmol/L 07/30/2025 10:58 AM [facility] Potassium 3.8 3.2 - 4.6 mmol/L 07/30/2025 10:58 AM [facility] Chloride 102 99 - 108 mmol/L 07/30/2025 10:58 AM [facility] CO2 31(H) 19 - 29 mmol/L 07/30/2025 10:58 AM [facility] Anion Gap 7 5 - 15 mmol/L 07/30/2025 10:58 AM [facility] BUN 14 7 - 20 mg/dL 07/30/2025 10:58 AM [facility] Creatinine 1.01 <=1.20 mg/dL 07/30/2025 10:58 AM [facility] BUN/Creatinine Ratio 13.86 10.00 - 20.00 ratio 07/30/2025 10:58 AM [facility] Glucose 95 58 - 104 mg/dL 07/30/2025 10:58 AM [facility] Calcium 8.6 7.9 - 11.1 mg/dL 07/30/2025 10:58 AM [facility] AST 16 10 - 28 U/L 07/30/2025 10:58 AM [facility] ALT (SGPT) 11 <=40 U/L 07/30/2025 10:58 AM [facility] Alkaline Phosphatase 63 29 - 108 U/L 07/30/2025 10:58 AM [facility] Total Protein 6.3 5.9 - 7.9 g/dL 07/30/2025 10:58 AM [facility] Albumin 2.8(L) 3.5 - 5.1 g/dL 07/30/2025 10:58 AM [facility] Globulin, Total 3.5 2.4 - 4.8 g/dL 07/30/2025 10:58 AM [facility] A/G Ratio 0.8 0.6 - 1.6 07/30/2025 10:58 AM [facility] Total Bilirubin 0.5 0.3 - 1.0 mg/dL 07/30/2025 10:58 AM [facility] eGFR (CKD-EPI) 58.1(L) >60.0 - 200.0 mL/min/1.7 3m*2 07/30/2025 10:58 AM [facility] Blood Venous blood specimen / Unknown Existing Catheter / Unknown 07/30/2025 9:57 AM EDT 07/30/2025 10:25 AM EDT us Rachel Soriano MD LAB BLOOD ORDERABLES Final Result Performing Organization Address City/State/[facility] Co de Phone Number [facility] [address] [place] [address], * (ABNORMAL) CBC auto differential (07/30/2025 9:57 AM EDT) Auto WBC 4.0 3.8 - 11.0 10*3/uL 07/30/2025 11:23 AM [facility] RBC 2.62(L) 3.73 - 5.13 10*6/uL 07/30/2025 11:23 AM [facility] Hemoglobin 9.1(L) 11.2 - 15.3 g/dL 07/30/2025 11:23 AM [facility] Hematocrit 28.0(L) 32.6 - 44.6 % 07/30/2025 11:23 AM [facility] MCV 107.0(H) 78.8 - 96.0 fL 07/30/2025 11:23 AM [facility] MCH 34.9(H) 26.2 - 33.0 pg 07/30/2025 11:23 AM [facility] MCHC 32.6(L) 32.7 - 35.1 g/dL 07/30/2025 11:23 AM [facility] RDW 23.8(H) 12.1 - 16.1 % 07/30/2025 11:23 AM [facility] MPV 7.9 7.0 - 10.6 fL 07/30/2025 11:23 AM [facility] Neutrophils % 59 47 - 79 % 07/30/2025 11:23 AM [facility] Lymphocytes % 20 13 - 41 % 07/30/2025 11:23 AM [facility] Monocytes % 14(H) 3 - 11 % 07/30/2025 11:23 AM [facility] Eosinophils % 7(H) 0 - 6 % 07/30/2025 11:23 AM [facility] Basophils % 1 0 - 2 % 07/30/2025 11:23 AM [facility] Neutrophils Absolute 2.40 1.90 - 7.50 10*3/uL 07/30/2025 11:23 AM [facility] Lymphocytes Absolute 0.80 0.80 - 3.20 10*3/uL 07/30/2025 11:23 AM [facility] Monocytes Absolute 0.50 0.10 - 0.90 10*3/uL 07/30/2025 11:23 AM [facility] Eosinophils Absolute 0.30 0.00 - 0.40 10*3/uL 07/30/2025 11:23 AM [facility] Basophils Absolute 0.00 0.00 - 0.20 10*3/uL 07/30/2025 11:23 AM [facility] Platelets 143 138 - 402 10*3/uL 07/30/2025 11:23 AM [facility] Blood Venous blood specimen / Unknown Existing Catheter / Unknown 07/30/2025 9:57 AM EDT 07/30/2025 10:26 AM EDT us Rachel Soriano MD LAB BLOOD ORDERABLES Final Result [facility] [address] [place] [address], [place] [phone] * T4, free (07/30/2025 9:57 AM EDT) Free T4 1.02 0.61 - 1.12 ng/dL 07/30/2025 11:06 AM EDT [facility] Blood Venous blood specimen / Unknown Existing Catheter / Unknown 07/30/2025 9:57 AM EDT 07/30/2025 10:25 AM EDT Rachel Soriano MD LAB BLOOD ORDERABLES Final Result Performing Organization Address [facility] Co de Phone Number [facility] [address] [place] [address], [place] [phone] * TSH (07/30/2025 9:57 AM EDT) Pathologist [facility] TSH 3.646 0.450 - 5.330 uIU/mL 07/30/2025 11:03 AM EDT [facility] Comment: Non-[place] Female: 0.45 - 5.33 IU/mL Female - 1st Trimester: 0.05 - 3.70 IU/mL Female - 2nd Trimester: 0.31 4.35 IU/mL Female - 3rd Trimester: 0.41 5.18 IU/mL Blood Venous blood specimen / Unknown Existing Catheter / Unknown 07/30/2025 9:57 AM EDT 07/30/2025 10:25 AM EDT us Rachel Soriano MD LAB BLOOD ORDERABLES Final Result [facility] [address] [place] [address], [place] [phone] documented in this encounter Visit Diagnoses Diagnosis 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 Fill volume of catheter for locking catheter post treatment.Indications:Non-smal l cell cancer of right lung,Stage IV squamous cell carcinoma of lung, unspecified laterality Given 07/30/2025 10:02 AM EDT 500 Units sodium chloride 0.9 % flush 20 mL 20 mL, Intracatheter, As needed, line care, Starting on Wed07/30/25 at 0941Indications:Non-small cell cancer of right lung,Stage IV squamous cell carcinoma of lung, unspecified laterality Given 07/30/2025 9:55 AM EDT 20 mL documented in this encounter Additional Health Concerns Assessment Noted Time PHQ-9 Depression Total Score: 0 06/23/20 10:00 AM EDT documented as of this encounter Care Teams Seaming Machine Operator Relationship Specialty Start Date End Date Lizandro Khan NP [address] [place] [address] PCP - General Family Medicine 07/23/25 Rachel Pagan MD [address] [place] [address] Consulting Physician Oncology 11/11/22 Pati Rucker APRN [address] [place] [address] Nurse Practitioner Oncology 12/21/22 Sosa Gardner APRN [address] [place] [address] Nurse Practitioner Oncology 06/24/23 Linda Elizabeth DO [address] [place] [id number] Consulting Physician Oncology 03/01/25 Angie Murray, RN [address] [place] [id number] Nurse Navigator Oncology 06/26/25 documented as of this encounter
--- OUTSIDE RECORDS SUMMARY | 2025-07-30 10:00 | XMS_ITS | Encounter Summary ---
Author Organization [facility] nter Address [address] [place] [address] Care Team Providers Care Mechanical Engineering Technician Name Role Phone Rachel Pagan MD Unavailable Pati Rucker GROUP THERAPY COUNSELOR Unavailable [phone] Sosa Gardner GROUP THERAPY COUNSELOR Unavailable [phone] Linda Elizabeth DO Unavailable Angie Murray RN Unavailable Unavailab Lizandro Islas NP Primary Care Provider [phone] Reason for Referral * MRI (Routine) - Authorized Specialty Diagnoses / Procedures Referred By Contac t Referred To Contact Radiology Diagnoses Non-small cell cancer of right lung Procedures MR brain w and wo contrast Rachel Pagan MD [address] [place] [address] Phone: tel: fax: [facility], [facility] [address] [place] [address] Phone: tel: fax: Referral ID Status Reason Start Date Expiration Date Visits Requested Visits Authorized [id number] Authorized Specialty Services Required 08/06/2025 11/04/2025 1 1 * CT (Routine) - Closed Specialty Diagnoses / Procedures Referred By Contac t Referred To Contact Radiology Diagnoses Non-small cell cancer of right lung Procedures CT abdomen pelvis w IV contrast Rachel Pagan MD [address] [place] [address] Phone: tel: fax: [facility], [facility] [address] [place] [address] Phone: tel: fax: Referral ID Status Reason Start Date Expiration Date V isits Requested Visits Authorized [id number] Closed Specialty Services Required 07/30/2025 10/28/2025 1 1 * CT (Routine) - Closed Specialty Diagnoses / Procedures Referred By Contac t Referred To Contact Radiology Diagnoses Non-small cell cancer of right lung Procedures CT chest w IV contrast Rachel Pagan MD [address] [place] [address] Phone: tel: fax: [place] [address] [place] [address] Phone: tel: fax: Referral ID Status Reason Start Date Expiration Date V isits Requested Visits Authorized [id number] Closed Specialty Services Required 07/30/2025 10/28/2025 1 1 Reason for Visit * Reason Comments Follow-up Non-small cell lung cancer * Auth/Cert (Routine) Specialty Diagnoses / Procedures Referred By Contac t Referred To Contact Diagnoses Malignant neoplasm of unspecified part of unspecified bronchus or lung Procedures CO PEMETREXED INJECTION [facility] [address] [place] [address] Phone: tel: [facility] [address] [place] [address] Phone: tel: fax: Referral ID Status Reason Start Date Expiration Date Visits Re quested Visits Authorized [id number] 1 1 Encounter Details Date Type Department Care Team (Late st Contact Info) Description 07/30/2025 10:00 AM EDT Office Visit [facility] [address] 10[address] [place] [address] Rachel Pagan MD [address] [place] [address] Non-small cell cancer of right lung (Primary Dx); Thrombocytopenia Social History Tobacco Use Types Packs/Day Years [...] week 11/11/2022 How often do you attend [facility] or restorationist services? More than 4 times per year 11/11/2022 Do you belong to any clubs o r organizations such as gnosticism groups, unions, fraternal or athletic groups, or [...] place to sleep or slept in a prison (including now)? No 11/11/2022 AUDIT-C Answer Date [...] things needed for daily living? No 06/23/2025 [facility] Utilities Answer Date Recorded In the [...] Sign Reading Time Taken Comments Blood Pressure 95/56 07/30/2025 10:02 AM EDT Pulse 85 07/30/2025 10:02 AM EDT Temperature 36.6 C (97.9 F) 07/30/2025 10:02 AM EDT Respiratory Rate 20 07/30/2025 10:02 AM EDT Oxygen Saturation - - Inhaled Oxygen Concentration - - Weight - - Height 147.3 cm (4' 10 ) 07/30/2025 10:02 AM EDT Body Mass Index - - documented in this encounter Functional Status * [...] Progress Notes * Rachel Soriano MD - 07/30/2025 10:00 AM EDT Patient ID: Jose Sims is a 64 y.o. female. Referring Physician: Lizandro Khan NP [address] [place] [address] Primary Care Provider: Lizandro Khan NP Subjective [...] Review of Systems Constitutional: Positive for fatigue. Weakness Respiratory: Positive for shortness of breath and wheezing. All other systems reviewed and are negative. 04/02/2025 05/15/2025 05/16/2025 06/12/2025 06/18/2025 06/19/2025 06/23/2025 SDOH What is your living situation today? [...] from getting things needed for daily living? N N N N N In the past 12 months has the [employer], gas, oil, or water [employer] threatened to shut off services in your home? No No No No No How often does anyone, including family and friends, physically hurt you? 1 1 2 1 1 How often does anyone, including family and friends, insult or talk down to you? 1 1 2 1 1 How often does anyone, including family and friends, threaten you with harm? 1 1 1 1 1 How often does anyone, including family and friends, scream or curse at you? 1 1 1 1 1 Safety Score 4 4 6 4 4 How hard is it for you to pay for the very basics like food, housing, medical care, and heating? Would you say it is: Not hard Not hard Not hard Not hard Do you want help finding or keeping work or a job? No No No No If for any reason you need help with day-to-day activities such as bathing, preparing meals, shopping, managing finances, etc., do you get the help you need? don't need don't need don't need don't need How often do you feel lonely or isolated from those around you? Never Never Rarely Rarely Do you speak a language other than Icelandic at home? N N N N Do you want help with school or training? For example, starting or completing job training or getting a high school diploma, GED or equivalent. N N N N In the last 30 days, other than the activities you did for work, on average, how many days per weekdid you engage in moderate exercise (like walking fast, running, jogging, dancing, swimming, biking, or other similar activities)? 0 0 0 On average, how many minutes did you usually spend exercising at this level on one of those days? 00 0 How many times in the past 12 months have you had 5 or more drinks in a day (males) or 4 or more drinks in a day (females)? One drink is 12 ounces of beer, 5 ounces of wine, or 1.5 ounces of 80-proofspirits. Never Never Never How many times in the past 12 months have you used tobacco products (like cigarettes, cigars, snuff, chew, electronic cigarettes)? Never Never Never How many times in the past year have you used prescription drugs for non-medical reasons? Never Never Never How many times in the past year have you used illegal drugs? Never Never Never Little interest or pleasure [...] old or older) N N N N Because of a physical, mental, or emotional condition, do you have difficulty doing errands alone such as visiting a doctor's office or shopping? (15 years old or older) N N N N Multiple values from one day are sorted in reverse-chronological order Objective BSA: 1.51 meters squared BP 95/56 Pulse 85 Temp 97.9 ??F (36.6 ??C) Resp 20 Ht 4' 10 (1.473 m) BMI 26.75 kg/m?? Physical Exam Vitals and nursing note [...] 0 Lab Results Component Value Date WBC 4.0 07/30/2025 ADJUSTEDWBC 10.60 12/20/2024 HGB 9.1 (L) 07/30/2025 HCT 28.0 (L) 07/30/2025 PLT 143 07/30/2025 LDH 241 03/31/2025 CREATININE 1.01 07/30/2025 AST 16 07/30/2025 Assessment/Plan Cancer Staging Non-small cell lung cancer [...] in size. Patient does not have any PATTERN DEVELOPER symptoms. She was seen by radiation oncology. [...] mets. Short interval brain MRI repeated suggested Office visit 07/30/2025: Patient has been seen by neurosurgery at 07/2025 and with her recent limited quality brain imaging, she was felt to have no gross evidence of recurrence. Planned to have reimaged in 3 months. PET scan 07/2025 with lung opacity and mediastinal lymph nodes activity (?true PD versus infectious versus inflammatory/immunotherapy related). It is to be noted that this PET scan was compared to 10/2024 however her current treatment plan did not start until 02/2025. Patient however did have CT chest/abdomen/pelvis at with contrast done March/2025. Today, overall feeling and looking better. Gaining few pounds. Labs pending from today. Patient/daughter reports a total of 4 falls in the last few months, last being 2 weeks ago. Plan: - At this point we will order CT scans with contrast to be done as soon as possible to be compared to the one patient had around the time of starting her chemo/immunotherapy. -Given her falls, and limited the quality brain imaging she recently had, will do a short interval brain MRI. This will be scheduled late 08/2025. Will be appreciated if this can also reviewed by [facility] colleagues for accurate assessment given patient history of brain mets requiring ira tesfaye/radiation and more recently strokes - Awaiting CBC today to look at the platelets -Will continue to coordinate with neurosurgery and [facility] regarding brain imaging/disease. -She will continue to follow-up with neurology for her stroke - Labs before each treatment - RTC 08/29/2025 (after PET scan) Orders: - CBC auto differential; Future - Comprehensive metabolic panel; Future - CT chest w IV contrast; Future - CT abdomen pelvis w IV contrast; Future - MR brain w and wo contrast; Future 2. Thrombocytopenia Overview: Treatment Details Treatment goal [No plan goal] [...] Status Active Start Date 03/13/2025 End Date 01/02/2026 (Planned) Provider Rachel Soriano MD Chemotherapy methylPREDNISolone sodium succinate (PF) (SOLU-Medrol) injection 125 mg, 125 mg, Intravenous, Once as needed, 6 of 14 cycles palonosetron (Aloxi) injection 250 [...] mL chemo IVPB, 200 mg, Intravenous, Once, 5 of 13 cycles Administration: 200 mg (06/05/2025), 200 mg (04/10/2025), 200 mg (05/08/2025), 200 mg (06/26/2025), 200mg (07/18/2025) The medication list for this visit has been reviewed and reconciled. Reviewed by Angela Pa RN (Registered Nurse) on 07/30/25 at 1002 and confirmed by Rachel Soriano MD * Sun Juárez - 07/30/2025 9:37 AM EDTAssociated Problem(s): Non-small cell lung cancer [...] in size. Patient does not have any PATTERN DEVELOPER symptoms. She was seen by radiation oncology. [...] mets. Short interval brain MRI repeated suggested Office visit 07/30/2025: Patient has been seen by neurosurgery at 07/2025 and with her recent limited quality brain imaging, she was felt to have no gross evidence of recurrence. Planned to have reimaged in 3 months. PET scan 07/2025 with lung opacity and mediastinal lymph nodes activity (?true PD versus infectious versus inflammatory/immunotherapy related). It is to be noted that this PET scan was compared to 10/2024 however her current treatment plan did not start until 02/2025. Patient however did have CT chest/abdomen/pelvis at with contrast done March/2025. Today, overall feeling and looking better. Gaining few pounds. Labs pending from today. Patient/daughter reports a total of 4 falls in the last few months, last being 2 weeks ago. Plan: - At this point we will order CT scans with contrast to be done as soon as possible to be compared to the one patient had around the time of starting her chemo/immunotherapy. -Given her falls, and limited the quality brain imaging she recently had, will do a short interval brain MRI. This will be scheduled late 08/2025. Will be appreciated if this can also reviewed by our neurosurgery colleagues for accurate assessment given patient history of brain mets requiring ira tesfaye/radiation and more recently strokes - Awaiting CBC today to look at the platelets -Will continue to coordinate with neurosurgery and [facility] regarding brain imaging/disease. -She will continue to follow-up with neurology for her stroke - Labs before each treatment - RTC 08/29/2025 (after PET scan) documented in this encounter Miscellaneous Notes * Patient Education - Angela Pa RN - 07/30/2025 10:16 AM EDT Images from the original note were not included. Patient Education Table of Contents Shortness of Breath, Adult To view videos and all your education online visit, [email or web address] or scan this QR code with your smartphone. Access to this content will in one year. Shortness of Breath, Adult Shortness of breath means you have trouble breathing. Shortness of breath could be a sign of a medical problem. Follow these instructions at home: Pollution Do not smoke or use any products that contain nicotine or tobacco. If you need help quitting, ask your doctor. Avoid things that can make it harder to breathe, such as: ? Smoke of all kinds. This includes smoke from campfires or forest fires. Do not smoke or allow others to smoke in your home. ? Mold. ? Dust. ? Air pollution. ? Chemical smells. ? Things that can give you an allergic reaction (allergens) if you have allergies. Keep your living space clean. Use products that help remove mold and dust. General instructions Watch for any changes in your symptoms. Take thad-hnl-lbctpel and prescription medicines only as told by your doctor. This includes oxygen therapy and inhaled medicines. Rest as needed. Return to your normal activities when your doctor says that it is safe. Keep all follow-up visits. Contact a doctor if: Your condition does not get better as soon as expected. You have a hard time doing your normal activities, even after you rest. You have new symptoms. You cannot walk up stairs. You cannot exercise the way you normally do. Get help right away if: Your shortness of breath gets worse. You have trouble breathing when you are resting. You feel light-headed or you faint. You have a cough that is not helped by medicines. You cough up blood. You have pain with breathing. You have pain in your chest, arms, shoulders, or belly (abdomen). You have a fever. These symptoms may be an emergency. Get help right away. Call 911. Do not wait to see if the symptoms will go away. Do not drive yourself to the hospital. Summary Shortness of breath is when you have trouble breathing enough air. It can be a sign of a medical problem. Avoid things that make it hard for you to breathe, such as smoking, pollution, mold, and dust. Watch for any changes in your symptoms. Contact your doctor if you do not get better or you get worse. This information is not intended to replace advice given to you by your health care provider. Make sure you discuss any questions you have with your health care provider. Document Released: 2009-04-19 Document Updated: 2022-06-19 Document Reviewed: 2022-06-20 [employer] Patient Education ? 2024 [employer] documented in this encounter Plan of Treatment Upcoming Encounters Date Type Department Care Team (Late st Contact Info) Description 08/27/2025 8:45 AM EDT Office Visit [facility] [address] [place] [address] Rachel Pagan MD [address] [place] [address] 08/28/2025 1:00 PM EDT Office Visit [facility] [address], [address] [place] [address] Yazan Castro DPM [address] [place] [address] 08/29/2025 10:30 AM EDT Appointment [facility] [address] [place] [address] 09/06/2025 1:45 PM EDT Appointment [facility] ULTRASOUND [address], [address] [place] [address] 09/12/2025 9:30 AM EDT Appointment [facility] MRI BLDG D [address] [place] [address] 09/28/2025 9:30 AM EST Office Visit [facility] [address], [address] [place] [id number] Ky Jewell MD [address] [facility] [place] [address] 11/05/2025 2:45 PM EST Office Visit [facility] [address] [place] [address] Ruddy Mayes MD [facility] [address] [facility] [place] [address] 12/31/2025 11:30 AM EST Office Visit [facility] [address] [id number] 01/22/2026 9:00 AM EDT Office Visit [facility] [address] [place] [address] Allyn Toribio NP [address] [place] [id number] Scheduled Orders Name Type Priority Associated Diagnoses Orde r Schedule MR brain w and wo contrast Imaging Routine Non-small cell cancer of right lung Expected: 09/14/2025, Expires: 07/30/2026 documented as of this encounter Goals Goal Patient Goal Type Associated Problems Recent Progress Patient-Stated? Author Patient's support system will participate in treatment General Emily Ny documented as of this encounter Procedures Procedure Name Priority Date/Time Associated Diagnosis Comments COMPREHENSIVE METABOLIC PANEL Routine 07/30/2025 9:57 AM EDT Non-small cell cancer of right lung CBC WITH AUTO DIFFERENTIAL Routine 07/30/2025 9:57 AM EDT Non-small cell cancer of right lung documented in this encounter Results * CT abdomen pelvis w IV contrast (08/06/2025 10:28 AM EDT) Anatomical Region Laterality Modality Body, Pelvis, Abdomen Computed T omography 08/06/2025 10:1 7 AM EDT Impressions 08/06/2025 11:03 AM EDT 1. No evidence for metastatic disease within the abdomen or pelvis. 2. Hepatic steatosis. 3. Cholelithiasis. 4. Right renal cortical cyst for which no routine imaging follow-up is recommended. 5. Right lower lobe pulmonary opacity with interval cavitation and air-fluid level. Uncertain etiology and significance. Differential diagnostic considerations include tumor necrosis and infection. 6. Additional findings, as above. Urgent communication note entered at 11:03 AM eastern time ON August 06, 2025. Electronically signed by: Steve Brasher DO 08/06/2025 11:03 AM EDT RP Narrative 08/06/2025 11:03 AM EDT EXAM: CT ABDOMEN AND PELVIS WITH CONTRAST INDICATION: NSCLC . Lung cancer diagnosed 3 years ago. Treated with chemotherapy and radiotherapy. TECHNIQUE: CT of the abdomen and pelvis was performed following IV contrast administration. Sagittal and coronal reformats. This examination was performed using one or more the following dose reduction techniques: Automated exposure control; adjustment of the mA and kV according the patient's size; iterative reconstruction technique. Unless specified, no imaging follow-up is recommended for incidental findings. IV CONTRAST:85 mL Isovue-300 ORAL CONTRAST:Not administered. COMPARISON: PET/CT dated July 20, 2025. CT abdomen and pelvis dated May 15, 2025. FINDINGS: LOWER CHEST: Irregular shaped nodular opacity within the right middle lobe measuring approximately 1.2 x 0.9 cm on image #8 of series 4 does not appear significant changed. Irregularly-shaped right lower lobe opacity does not appear significant changed in size. The lesion appears to have undergone cavitation and there is a cavity measuring approximately 2.2 x 2.7 cm on image #3 of series 2 containing an air-fluid level. New juxtapleural bandlike opacity within the right lower lobe. Dedicated chest CT was performed concurrently with this examination. Please see report for that examination for additional thoracic details. LIVER: Diffuse low attenuation consistent with steatosis. No focal abnormality. SPLEEN: Normal size and attenuation. No focal abnormality. PANCREAS: No peripancreatic inflammatory change, pancreatic ductal dilatation or pancreatic mass. GALLBLADDER AND BILIARY TRACT: Cholelithiasis. No pericholecystic inflammatory changes or abnormal biliary ductal dilatation. ADRENAL GLANDS: No adrenal nodule. KIDNEYS: Bosniak type I right renal cortical cyst. No hydronephrosis or perinephric inflammatory changes. URINARY BLADDER: Unremarkable. PELVIC ORGANS: Age appropriate appearance of the uterus and adnexa. No free pelvic fluid. No pathologic appearing pelvic or superficial inguinal mass or adenopathy.. VASCULAR: Aortoiliac atherosclerosis. No abdominal aortic aneurysm or dissection. Normal enhancement of the celiac axis, SMA and ZELALEM. No evidence for hepatic, portal, superior mesenteric, splenic or renal vein thrombosis. Infrarenal IVC filter. Position of the filter does not appear significantly changed. Infrarenal IVC patency cannot be assessed by this examination due to lack of IVC opacification at the time of the examination. DISTAL ESOPHAGUS, STOMACH AND DUODENUM: Unremarkable. SMALL INTESTINE: No dilated small bowel loops or obvious small bowel wall thickening. COLON: No colonic dilatation or obvious wall thickening. APPENDIX: Normal. ABDOMINAL WALL: No obvious acute abdominal wall abnormality or superficial soft tissue mass. MUSCULOSKELETAL: No obvious acute osseous abnormality. Degenerative changes of the lower thoracic and lumbar spine. OTHER: No free air or free fluid. No mesenteric or retroperitoneal adenopathy. Rachel Soriano MD IMG CT PROCEDURES Final Res ult * CT chest w IV contrast (08/06/2025 10:28 AM EDT) Anatomical Region Laterality Modality Body, Chest Computed Tomogra phy 08/06/2025 10:1 7 AM EDT Impressions 08/06/2025 2:09 PM EDT 1. Ill-defined opacity in the right lower lobe with cavitation and air-fluid level concerning for cavitary pneumonia or more likely recurrent cavitary lung neoplasm with possible superimposed infection. 2. Right hilar and mediastinal adenopathy similar to previous PET scans 07/20/2022. 3. 3 mm groundglass nodule left midlung field. Electronically signed by: Sergo Rushing MD 08/06/2025 02:09 PM EDT Narrative 08/06/2025 2:09 PM EDT EXAM: CT CHEST WITH IV CONTRAST Reason for Study: NSCLC COMPARISON: PET scan 07/20/2025, CT scan chest 05/15/2025. TECHNIQUE: A tomographic scan from the thoracic inlet through the upper abdomen following the use of IV contrast was performed. Automated exposure control, adjustment of mA and/or kV according to patient size was utilized.85 mL of Isovue-300 FINDINGS No sonographic axillary adenopathy or chest wall masses. Heart size normal. No pericardial fluid. Mild coronary calcic ages consistent with CAD. Atherosclerotic normal caliber aorta. There is mild DJD in the spine and kyphosis. Sternum intact. No definite displaced rib fractures or lytic or blastic lesions evident. Thyroid unremarkable. No large airway filling defects. Left lung is clear. There is a 3 mm groundglass nodule adjacent to the fissure in the left midlung field on image 36/81 series 2. 3 mm groundglass infiltrate right upper lobe periphery image 31/181 series 2. Centrilobular emphysema. No pleural collections detected on the left side. In the right lower lobe there is an opacity measuring 1.2 x 0.9 cm unchanged. Posterior right lower lobe opacity measuring approximately 6 x 3.5 x 6 cm radiating from the right infrahilar area with cavitation 2.2 x 2.7 x 2.5 cm and small air- fluid level concerning for cavitary pneumonia or more likely cavitary lung neoplasm. There is subcarinal adenopathy measuring 1.5 cm and 0.8 cm. Right infrahilar lymph node measuring approximately 1 cm and suprahilar lymph node measuring 1 cm. There is partial infiltration of the right lower lobe bronchus intermedius but no definite complete occlusion detected. There is trace pleural thickening/pleural fluid in the right lower lobe adjacent to the ill-defined opacification. Small left infrahilar lymph node measuring 0.5 cm. us Rachel Soriano MD IMG CT PROCEDURES Final Res ult * (ABNORMAL) Comprehensive metabolic panel (07/30/2025 9:57 AM EDT) Sodium 140 134 - 143 mmol/L 07/30/2025 10:58 AM EDT [facility] Potassium 3.8 3.2 - 4.6 mmol/L 07/30/2025 10:58 AM [facility] Chloride 102 99 - 108 mmol/L 07/30/2025 10:58 AM [facility] CO2 31(H) 19 - 29 mmol/L 07/30/2025 10:58 AM [facility] Anion Gap 7 5 - 15 mmol/L 07/30/2025 10:58 AM [facility] BUN 14 7 - 20 mg/dL 07/30/2025 10:58 AM [facility] Creatinine 1.01 <=1.20 mg/dL 07/30/2025 10:58 AM [facility] BUN/Creatinine Ratio 13.86 10.00 - 20.00 ratio 07/30/2025 10:58 AM [facility] Glucose 95 58 - 104 mg/dL 07/30/2025 10:58 AM [facility] Calcium 8.6 7.9 - 11.1 mg/dL 07/30/2025 10:58 AM [facility] AST 16 10 - 28 U/L 07/30/2025 10:58 AM [facility] ALT (SGPT) 11 <=40 U/L 07/30/2025 10:58 AM [facility] Alkaline Phosphatase 63 29 - 108 U/L 07/30/2025 10:58 AM [facility] Total Protein 6.3 5.9 - 7.9 g/dL 07/30/2025 10:58 AM [facility] Albumin 2.8(L) 3.5 - 5.1 g/dL 07/30/2025 10:58 AM [facility] Globulin, Total 3.5 2.4 - 4.8 g/dL 07/30/2025 10:58 AM [facility] A/G Ratio 0.8 0.6 - 1.6 07/30/2025 10:58 AM [facility] Total Bilirubin 0.5 0.3 - 1.0 mg/dL 07/30/2025 10:58 AM [facility] eGFR (CKD-EPI) 58.1(L) >60.0 - 200.0 mL/min/1.7 3m*2 07/30/2025 10:58 AM [facility] Blood Venous blood specimen / Unknown Existing Catheter / Unknown 07/30/2025 9:57 AM EDT 07/30/2025 10:25 AM EDT us Rachel Soriano MD LAB BLOOD ORDERABLES Final Result [facility] [address] [place] [address], * (ABNORMAL) CBC auto differential (07/30/2025 9:57 AM EDT) Auto WBC 4.0 3.8 - 11.0 10*3/uL 07/30/2025 11:23 AM [facility] RBC 2.62(L) 3.73 - 5.13 10*6/uL 07/30/2025 11:23 AM [facility] Hemoglobin 9.1(L) 11.2 - 15.3 g/dL 07/30/2025 11:23 AM [facility] Hematocrit 28.0(L) 32.6 - 44.6 % 07/30/2025 11:23 AM [facility] MCV 107.0(H) 78.8 - 96.0 fL 07/30/2025 11:23 AM [facility] MCH 34.9(H) 26.2 - 33.0 pg 07/30/2025 11:23 AM [facility] MCHC 32.6(L) 32.7 - 35.1 g/dL 07/30/2025 11:23 AM [facility] RDW 23.8(H) 12.1 - 16.1 % 07/30/2025 11:23 AM [facility] MPV 7.9 7.0 - 10.6 fL 07/30/2025 11:23 AM [facility] Neutrophils % 59 47 - 79 % 07/30/2025 11:23 AM [facility] Lymphocytes % 20 13 - 41 % 07/30/2025 11:23 AM [facility] Monocytes % 14(H) 3 - 11 % 07/30/2025 11:23 AM [facility] Eosinophils % 7(H) 0 - 6 % 07/30/2025 11:23 AM [facility] Basophils % 1 0 - 2 % 07/30/2025 11:23 AM [facility] Neutrophils Absolute 2.40 1.90 - 7.50 10*3/uL 07/30/2025 11:23 AM [facility] Lymphocytes Absolute 0.80 0.80 - 3.20 10*3/uL 07/30/2025 11:23 AM [facility] Monocytes Absolute 0.50 0.10 - 0.90 10*3/uL 07/30/2025 11:23 AM [facility] Eosinophils Absolute 0.30 0.00 - 0.40 10*3/uL 07/30/2025 11:23 AM [facility] Basophils Absolute 0.00 0.00 - 0.20 10*3/uL 07/30/2025 11:23 AM [facility] Platelets 143 138 - 402 10*3/uL 07/30/2025 11:23 AM [facility] Blood Venous blood specimen / Unknown Existing Catheter / Unknown 07/30/2025 9:57 AM EDT 07/30/2025 10:26 AM EDT us Rachel Soriano MD LAB BLOOD ORDERABLES Final Result [facility] [address] [place] [address], documented in this encounter Visit Diagnoses Diagnosis Non-small cell cancer of right lung- Primary Thrombocytopenia Unspecified thrombocytopenia Non-small cell cancer of right lung documented in this encounter Additional Health Concerns Assessment Noted Time PHQ-9 Depression Total Score: 0 06/23/20 25 10:00 AM EDT documented as of this encounter Care Teams Mechanical Engineering Technician Relationship Specialty Start Date End Date Lizandro Khan NP [address] [place] [address] PCP - General Family Medicine 07/23/25 Rachel Pagan MD [address] [place] [address] Consulting Physician Oncology 11/11/22 Pati Rucker APRN [address] [place] [address] Nurse Practitioner Oncology 12/21/22 Sosa Gardner APRN [address] [place] [address] Nurse Practitioner Oncology 06/24/23 Linda Elizabeth DO [address] [place] [address] Consulting Physician Oncology 03/01/25 Angie Murray RN [address] [place] [address] Nurse Navigator Oncology 06/26/25 documented as of this encounter
--- OUTSIDE RECORDS SUMMARY | 2025-08-06 09:38 | XMS_ITS | Encounter Summary ---
Author Organization [facility] nter Address [address] [facility] [place] [address] Care Team Providers Care Corporate Relations Director Name Role Phone Rachel Pagan MD Unavailable Pati Rucker TRACK INSPECTOR Unavailable [phone] Sosa Gardner TRACK INSPECTOR Unavailable [phone] Linda Elizabeth DO Unavailable Angie Murray RN Unavailable Unavailab Lizandro Islas NP Primary Care Provider [phone] Reason for Referral * CT (Routine) - Closed Specialty Diagnoses / Procedures Referred By Controse mary t Referred To Contact Radiology Diagnoses Non-small cell cancer of right lung Procedures CT abdomen pelvis w IV contrast Rachel Pagan MD [address] [place] [address] Phone: tel: fax: [facility], [facility] [address] [place] [address] Phone: tel: fax: Referral ID Status Reason Start Date Expiration Date V isits Requested Visits Authorized [id number] Closed Specialty Services Required 07/30/2025 10/28/2025 1 1 * CT (Routine) - Closed Specialty Diagnoses / Procedures Referred By Contac t Referred To Contact Radiology Diagnoses Non-small cell cancer of right lung Procedures CT chest w IV contrast Rachel Pagan MD [address] [facility] [place] [address] Phone: tel: fax: [facility], [facility] [address] [facility] [place] [address] Phone: tel: fax: Referral ID Status Reason Start Date Expiration Date V isits Requested Visits Authorized [id number] Closed Specialty Services Required 07/30/2025 10/28/2025 1 1 Reason for Visit * CT (Routine) - Closed Specialty Diagnoses / Procedures Referred By Contac t Referred To Contact Radiology Diagnoses Non-small cell cancer of right lung Procedures CT abdomen pelvis w IV contrast Rachel Pagan MD [address] [facility] [place] [address] Phone: tel: fax: [facility], [place] [address] [facility] [place] [address] Phone: tel: fax: Referral ID Status Reason Start Date Expiration Date V isits Requested Visits Authorized [id number] Closed Specialty Services Required 07/30/2025 10/28/2025 1 1 Encounter Details Date Type Department Care Team (Latest Contact Info) Description 08/06/2025 9:38 AM EDT - 08/06/2025 11:59 PM EDT Hospital Encounter [facility] D [address], [facility] [place] [address] Non-small cell cancer of right [...] often do you attend chur ch or mandaen services? More than 4 times per year 11/11/2022 Do you belong to any clubs o r organizations such as uatsdin groups, unions, fraternal or athletic groups, or [...] place to sleep or slept in a senior living (including now)? No 11/11/2022 AUDIT-C Answer Date [...] things needed for daily living? No 06/23/2025 [facility] Utilities Answer Date Recorded In the [...] morning and at bedtime. 180 tablet 3 07/20/2025 atorvastatin (Lipitor) 80 MG tabletIndications:C erebrovascular Accident Take 1 tablet (80 mg) by mouth at bedtime. 90 tablet 3 07/18/2025 bumetanide (Bumex) 2 MG tablet Take 1 tablet (2 mg) by mouth in the morning and at bedtime. Hold for systolic blood pressure less than or equal to 100 mmHg 180 tablet 3 07/18/2025 cyclobenzaprine (Flexeril) 10 MG tablet TAKE 1 TABLET BY MOUTH THREE TIMES DAILY NEEDED FOR MUSCLE RELAXATION folic acid (Folvite) 1 MG tablet Take 1 tablet (1 mg) by mouth in the morning. 30 tablet 11 06/23/2025 6 isosorbide mononitrate 20 MG tablet Take 1 tablet (20 mg) by mouth in the morning and at bedtime. Hold for systolic blood pressure less than or equal to 100 mmHg 60 tablet 07/18/2025 lisinopril 40 MG tablet Take 1 tablet (40 mg) by mouth in the morning. loratadine (Claritin Reditabs) 10 MG disintegrating tablet Take 1 tablet (10 mg) by mouth in the morning. magnesium oxide (Mag-Ox) tablet Take 1 tablet (400 mg) by mouth at bedtime. 90 tablet 3 07/18/2025 ondansetron ODT (Zofran-ODT) 8 MG disintegrating tablet DISSOLVE 1 TABLET ON TONGUE FOUR TIMES DAILY NEEDED FOR NAUSEA OR VOMITING 07/20/2025 valproic acid (Depakene) 250 MG/5ML oral liquid Take 5 mL (250 mg) by mouth every 8 (eight) hours. 450 mL 1 08/06/2025 5 potassium chloride CR (Klor-Con M20) 20 MEQ ER tablet Take 1 tablet (20 mEq) by mouth in the morning and at bedtime. 60 tablet 07/18/2025 5 documented as of this encounter Plan of Treatment Upcoming Encounters Date Type Department Care Team (Late st Contact Info) Description 08/27/2025 8:45 AM EDT Office Visit [facility] [address] 10th [place] [address] Rachel Pagan MD [address] [place] [address] 08/28/2025 1:00 PM EDT Office Visit [facility]THOPEDIC [facility]ODIATRY PRACTICE [address] 6[address] [place] [address] Yazan Castro DPM [address] [place] [address] 08/29/2025 10:30 AM EDT Appointment [facility] MEDICAL ONCOLOGY [address], 11[address] [place] [address] 09/06/2025 1:45 PM EDT Appointment [facility] ULTRASOUND [address], 2[address] [place] [id number] 09/12/2025 9:30 AM EDT Appointment [facility] MRI BLDG D [address], [facility] [place] [address] 09/28/2025 9:30 AM EST Office Visit [facility] [address], [address] [place] [address] Ky Jewell MD [address] [place] [address] 11/05/2025 2:45 PM EST Office Visit [facility]UR[facility] [address], 8[address] [place] [address] Ruddy Mayes MD [facility] [address] [facility] [place] [address] 12/31/2025 11:30 AM EST Office Visit [facility] [address] [place] [id number] 01/22/2026 9:00 AM EDT Office Visit [facility] [address], [address] [place] [address] Allyn Toribio NP [address] [place] [address] documented as of this encounter Goals Goal [...] Steve Brasher DO 08/06/2025 11:03 AM EDT Narrative 08/06/2025 11:03 AM EDT EXAM: CT [...] mL, Intravenous, Once in imaging, Starting on Wed08/06/25 at 1028, For 1 dose Given 08/06/2025 10:28 AM EDT 85 mL documented in this encounter Additional Health Concerns Assessment Noted Time PHQ-9 Depression Total Score: 0 06/23/20 10:00 AM EDT documented as of this encounter Care Teams Corporate Relations Director Relationship Specialty Start Date End Date Lizandro Khan NP [address] [place] [address] PCP - General Family Medicine 07/23/25 Rachel Pagan MD [address] [facility] [place] [address] Consulting Physician Oncology 11/11/22 Pati Rucker APRN [address] [facility] [place] [address] Nurse Practitioner Oncology 12/21/22 Sosa Gardner APRN [address] [place] [place] [address] Nurse Practitioner Oncology 06/24/23 Linda Elizabeth DO [address] [place] [address] Consulting Physician Oncology 03/01/25 Angie Murray RN [address] [place] [address] Nurse Navigator Oncology 06/26/25 documented as of this encounter
--- OUTSIDE RECORDS SUMMARY | 2025-08-06 14:30 | XMS_ITS | Encounter Summary ---
Author Organization [facility] nter Address [address] [place] [address] Care Team Providers Care Ramp Boss Name Role Phone Rachel Pagan MD Unavailable [phone] Pati Rucker SAND CUTTING MACHINE OPERATOR Unavailable Sosa Gardner SAND CUTTING MACHINE OPERATOR Unavailable [phone] Linda Elizabeth DO Unavailable Angie Murray RN Unavailable Unavailab Lizandro Islas NP Primary Care Provider Encounter Details Date Type Department Care Team (Late st Contact Info) Description 08/06/2025 2:30 PM EDT Office Visit [facility] [address] [place] [address] Patience Wang NP [address] [place] [address] Myoclonus (Primary Dx) Social History [...] week 11/11/2022 How often do you attend [facility] or [facility] services? More than 4 times per year 11/11/2022 Do you belong to any clubs o r organizations such as protestant groups, unions, fraternal or athletic groups, or [...] things needed for daily living? No 06/23/2025 [facility] Utilities Answer Date Recorded In [...] also follows with Dr. Cabrera at the [facility]. We did load the patient with Depakote. 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 Electronically signed by: Don Cabrera MD 1:52 AM EDT MR brain w contrast Result Date: 12/27/2024 [facility] - Phone Outpatient NAME: Jose Sims DATE OF EXAM: 12/26/2024 Patient No: [id number] Physician: Priscila Date of : 1960 Past [...] error, please notify the sender immediately at [phone] and permanently delete the original report and [...] by: Don Cabrera MD 11/13/2024 10:04 AM [facility] head results: CT head wo IV [...] Trey Wiley DO 02/28/2025 06:39 PM EDT RP Brain vessel imaging results: CT neck angio [...] mildly limited by patient movement. There is ptht-xr-ikmgopet plaque involving the aortic arch, its branching [...] arteries and major branch vessel origins.. * [place] of [place]: Standard configuration. No significant stenosis. [...] arteries and major branch vessel origins.. * [place] of [place]: Standard configuration. No significant stenosis. [...] Trey Wiley DO 02/28/2025 06:49 PM EDT Review of Systems Neurological: Positive for tremors. [...] 0 0 Patellar 0 0 Coordination Right: Lditqn-jj-xtgj normal. Qbse-rn-dien normal.Left: Ekxgmv-ar-knvh normal. Ziia-je-kttb normal. Gait Wheelchair. Assessment/Plan Diagnoses and all [...] videos and all your education online visit, [email or web address] or scan this QR code with your [...] treatment. Follow these instructions at home: Take prub-czi-ctuzpzj and prescription medicines only as told by [...] important. Where to find more information National [place] of Neurological Disorders and Stroke: www.ninds.nih.gov Contact [...] 2003-10-22 Document Updated: 2022-08-21 Document Reviewed: 2022-08-21 [employer] Patient Education ? 2024 [employer] documented in this encounter Plan of Treatment Upcoming Encounters Date Type Department Care Team (Late st Contact Info) Description 08/27/2025 8:45 AM EDT Office Visit [facility] [address] [place] [address] Rachel Pagan MD [address] [place] [address] 08/28/2025 1:00 PM EDT Office Visit [facility] [address] [place] [address] Yazan Castro DPM [address] [place] [address] 08/29/2025 10:30 AM EDT Appointment [facility] MEDICAL ONCOLOGY [address] [place] [address] 09/06/2025 1:45 PM EDT Appointment [facility] ULTRASOUND [address] [place] [address] 09/12/2025 9:30 AM EDT Appointment [facility] MRI BLDG D [address], [place] [address] 09/28/2025 9:30 AM EST Office Visit [facility] [address], [address] [place] [address] Ky Jewell MD [address] [place] [address] 11/05/2025 2:45 PM EST Office Visit [facility] [address] [place] [address] Ruddy Mayes MD [address] [facility] [place] [address] 12/31/2025 11:30 AM EST Office Visit [facility] [address] [facility] [address] 01/22/2026 9:00 AM EDT Office Visit [facility] [address] [place] [facility] [place] [address] Allyn Toribio NP [address] [facility] [place] [phone] Scheduled Orders Name Type Priority Associated Diagnoses [...] documented as of this encounter Care Teams Ramp Boss Relationship Specialty Start Date End Date Lizandro Khan NP [address] [place] [address] PCP - General Family Medicine 07/23/25 Rachel Pagan MD [address] [place] [address] [place] [address] Consulting Physician Oncology 11/11/22 Pati Rucker APRN [address] [place] [address] Nurse Practitioner Oncology 12/21/22 Sosa Gardner APRN [address] [facility] [place] [address] Nurse Practitioner Oncology 06/24/23 Linda Elizabeth DO [address] [place] [phone] Consulting Physician Oncology 03/01/25 Angie Murray, RN [address] [place] [address] Nurse Navigator Oncology 06/26/25 documented as of this encounter
--- OUTSIDE RECORDS SUMMARY | 2025-08-08 08:15 | XMS_ITS | Encounter Summary ---
Author Organization [facility] nter Address [address] [place] [address] Care Team Providers Care Museum Guide Name Role Phone Rachel Pagan MD Unavailable Pati Rucker REGIONAL CONTROLLER Unavailable [phone] Sosa Gardner REGIONAL CONTROLLER Unavailable [phone] Linda Elizabeth DO Unavailable Angie Murray RN Unavailable Unavailab Lizandro Islas NP Primary Care Provider [phone] Reason for Visit * Auth/Cert (Routine) Specialty Diagnoses / Procedures Referred By Contac t Referred To Contact Diagnoses Malignant neoplasm of unspecified part of unspecified bronchus or lung Procedures [place] PEMETREXED INJECTION [facility] [address] [place] [address] Phone: tel: [facility] [address]th [place] [address] Phone: tel: fax: Referral ID Status Reason Start Date Expiration Date Visits Re quested Visits Authorized [id number] 1 1 Encounter Details Date Type Department Care Team (Latest Contact Info) Description 08/08/2025 8:15 AM EDT - 08/08/2025 10:29 AM EDT Hospital Encounter [facility] [address]th [place] [address] Non-small cell lung cancer, unspecified [...] How often do you attend chur or alevism services? More than 4 times per year 11/11/2022 Do you belong to any clubs o r organizations such as jainism groups, unions, fraternal or athletic groups, or [...] place to sleep or slept in a half-way (including now)? No 11/11/2022 AUDIT-C Answer Date [...] the past 12 months has th e [employer], or [employer] threatened to shut off services in your [...] in the morning. 30 tablet 11 06/23/2025 isosorbide mononitrate 20 MG tablet Take 1 [...] Description 08/27/2025 8:45 AM EDT Office Visit [facility] [address], 10th [place] [address] Rachel Pagan MD [address] [place] [address] 08/28/2025 1:00 PM EDT Office Visit [facility] [address], 6th [place] [address] Yazan Castro, SOHAM [address] [facility] [place] [address] 08/29/2025 10:30 AM EDT Appointment [facility] [address], [address]th [place] [address] 09/06/2025 1:45 PM EDT Appointment [facility] ULTRASOUND [address], 2nd [place] [address] 09/12/2025 9:30 AM EDT Appointment [facility] MRI BLDG D [address], [facility] [place] [address] 09/28/2025 9:30 AM EST Office Visit [facility] [address], [address] [place] [address] Ky Jewell MD [address] [facility] [place] [address] 11/05/2025 2:45 PM EST Office Visit [facility] [address], 8th [place] [address] Ruddy Mayes MD [address] [facility] [place] [address] 12/31/2025 11:30 AM EST Office Visit [facility] [address] [phone] 01/22/2026 9:00 AM EDT Office Visit [facility] [address], 1st Floor [facility] [place] [address] Allyn Toribio NP [address] [place] [address] documented as of this encounter Goals Goal Patient Goal Type Associated Problems Recent Progress Patient-Stated? Author Patient's support system will participate in treatment General No Emily Dong documented as of this encounter Procedures Procedure [...] - 1.12 ng/dL 08/08/2025 11:21 AM EDT [facility] Blood Venous blood specimen / Unknown Venipuncture / Unknown 08/08/2025 10:02 AM EDT 08/08/2025 10:41 AM EDT us Rachel Soriano MD LAB BLOOD ORDERABLES Final Result [facility] [address] [place] [address], * TSH (08/08/2025 10:02 AM EDT) TSH 2.828 0.450 - 5.330 uIU/mL 08/08/2025 11:18 AM EDT [facility] Comment: Non-Pregant Female: 0.45 - 5.33 IU/mL Female - 1st Trimester: 0.05 - 3.70 IU/mL Female - 2nd Trimester: 0.31 4.35 IU/mL Female - 3rd Trimester: 0.41 5.18 IU/mL Blood Venous blood specimen / Unknown Venipuncture / Unknown 08/08/2025 10:02 AM EDT 08/08/2025 10:41 AM EDT Rachel Soriano MD LAB BLOOD ORDERABLES Final Result [facility] [address] [place] [address], * (ABNORMAL) Comprehensive metabolic panel (08/08/2025 10:02 AM EDT) Sodium 140 134 - 143 mmol/L 08/08/2025 11:11 AM [facility] Potassium 4.3 3.2 - 4.6 mmol/L 08/08/2025 11:11 AM [facility] Chloride 104 99 - 108 mmol/L 08/08/2025 11:11 AM [facility] CO2 30(H) 19 - 29 mmol/L 08/08/2025 11:11 AM [facility] Anion Gap 6 5 - 15 mmol/L 08/08/2025 11:11 AM [facility] BUN 18 7 - 20 mg/dL 08/08/2025 11:11 AM [facility] Creatinine 1.17 <=1.20 mg/dL 08/08/2025 11:11 AM [facility] BUN/Creatinine Ratio 15.38 10.00 - 20.00 ratio 08/08/2025 11:11 AM [facility] Glucose 85 58 - 104 mg/dL 08/08/2025 11:11 AM [facility] Calcium 9.0 7.9 - 11.1 mg/dL 08/08/2025 11:11 AM [facility] AST 17 10 - 28 U/L 08/08/2025 11:11 AM [facility] ALT (SGPT) 11 <=40 U/L 08/08/2025 11:11 AM [facility] Alkaline Phosphatase 69 29 - 108 U/L 08/08/2025 11:11 AM [facility] Total Protein 6.7 5.9 - 7.9 g/dL 08/08/2025 11:11 AM [facility] Albumin 2.9(L) 3.5 - 5.1 g/dL 08/08/2025 11:11 AM [facility] Globulin, Total 3.8 2.4 - 4.8 g/dL 08/08/2025 11:11 AM [facility] A/G Ratio 0.8 0.6 - 1.6 08/08/2025 11:11 AM [facility] Total Bilirubin 0.5 0.3 - 1.0 mg/dL 08/08/2025 11:11 AM [facility] eGFR (CKD-EPI) 48.7(L) >60.0 - 200.0 mL/min/1.7 3m*2 08/08/2025 11:11 AM [facility] Blood Venous blood specimen / Unknown Venipuncture / Unknown 08/08/2025 10:02 AM EDT 08/08/2025 10:41 AM EDT Rachel Soriano MD LAB BLOOD ORDERABLES Final Result Performing Organization Address City/State/[facility] Co de Phone Number [facility] [address] [place] [address], * (ABNORMAL) CBC auto differential (08/08/2025 10:02 AM EDT) Auto WBC 3.6(L) 3.8 - 11.0 10*3/uL 08/08/2025 10:51 AM [facility] RBC 2.57(L) 3.73 - 5.13 10*6/uL 08/08/2025 10:51 AM [facility] Hemoglobin 9.2(L) 11.2 - 15.3 g/dL 08/08/2025 10:51 AM [facility] Hematocrit 27.5(L) 32.6 - 44.6 % 08/08/2025 10:51 AM [facility] MCV 106.9(H) 78.8 - 96.0 fL 08/08/2025 10:51 AM [facility] MCH 35.6(H) 26.2 - 33.0 pg 08/08/2025 10:51 AM [facility] MCHC 33.3 32.7 - 35.1 g/dL 08/08/2025 10:51 AM [facility] RDW 21.6(H) 12.1 - 16.1 % 08/08/2025 10:51 AM [facility] Platelets 83(L) 138 - 402 10*3/uL 08/08/2025 10:51 AM [facility] MPV 7.8 7.0 - 10.6 fL 08/08/2025 10:51 AM [facility] Neutrophils % 61 47 - 79 % 08/08/2025 10:51 AM [facility] Lymphocytes % 22 13 - 41 % 08/08/2025 10:51 AM [facility] Monocytes % 10 3 - 11 % 08/08/2025 10:51 AM [facility] Eosinophils % 8(H) 0 - 6 % 08/08/2025 10:51 AM [facility] Basophils % 0 0 - 2 % 08/08/2025 10:51 AM [facility] Neutrophils Absolute 2.20 1.90 - 7.50 10*3/uL 08/08/2025 10:51 AM [facility] Lymphocytes Absolute 0.80 0.80 - 3.20 10*3/uL 08/08/2025 10:51 AM [facility] Monocytes Absolute 0.30 0.10 - 0.90 10*3/uL 08/08/2025 10:51 AM [facility] Eosinophils Absolute 0.30 0.00 - 0.40 10*3/uL 08/08/2025 10:51 AM [facility] Basophils Absolute 0.00 0.00 - 0.20 10*3/uL 08/08/2025 10:51 AM [facility] Blood Venous blood specimen / Unknown Venipuncture / Unknown 08/08/2025 10:02 AM EDT 08/08/2025 10:43 AM EDT Rachel Soriano MD LAB BLOOD ORDERABLES Final Result [facility] [address] [place] [address], documented in this encounter Visit Diagnoses Diagnosis Non-small cell lung cancer, unspecified laterality documented in this encounter Additional Health Concerns Assessment Noted Time PHQ-9 Depression Total Score: 0 06/23/20 10:00 AM EDT documented as of this encounter Care Teams Museum Guide Relationship Specialty Start Date End Date Lizandro Khan NP [address] [place] [address] PCP - General Family Medicine 07/23/25 Rachel Pagan MD [address] [facility] [place] [phone] Consulting Physician Oncology 11/11/22 Pati Rucker APRN [facility] [address] [facility] [place] [phone] Nurse Practitioner Oncology 12/21/22 Sosa Gardner APRN [address] [facility] [place] [address] Nurse Practitioner Oncology 06/24/23 Linda Elizabeth DO [address] [facility] [place] [address] Consulting Physician Oncology 03/01/25 Angie Murray RN [address] [place] [address] Nurse Navigator Oncology 06/26/25 documented as of this encounter
--- OUTSIDE RECORDS SUMMARY | 2025-08-08 10:30 | XMS_ITS | Encounter Summary ---
Author Organization [facility] nter Address [address] [place] [address] Care Team Providers Care Operater Name Role Phone Rachel Pagan MD Unavailable Pati Rucker ASSISTANT SUPERINTENDENT FOR CURRICULUM Unavailable [phone] Sosa Gardner ASSISTANT SUPERINTENDENT FOR CURRICULUM Unavailable [phone] Linda Elizabeth DO Unavailable Angie Murray RN Unavailable Unavailab Lizandro Islas NP Primary Care Provider [phone] Reason for Visit * Reason Comments Lung Cancer * Auth/Cert (Routine) Specialty Diagnoses / Procedures Referred By Controse mary t Referred To Contact Diagnoses Malignant neoplasm of unspecified part of unspecified bronchus or lung Procedures [place] PEMETREXED INJECTION [facility] [address] [place] [address] Phone: tel: [facility] MEDICAL ONCOLOGY [address] [place] [address] Phone: tel: fax: Referral ID Status Reason Start Date Expiration Date Visits Re quested Visits Authorized [id number] 1 1 Encounter Details Date Type Department Care Team (Latest Contact Info) Description 08/08/2025 10:30 AM EDT - 08/08/2025 11:59 PM EDT Hospital Encounter [facility] MEDICAL ONCOLOGY [address] [place] [address] Non-small cell lung cancer, unspecified [...] week 11/11/2022 How often do you attend [facility] or catholic services? More than 4 times per [...] place to sleep or slept in a long term (including now)? No 11/11/2022 AUDIT-C Answer Date [...] things needed for daily living? No 06/23/2025 [facility] Utilities Answer Date Recorded In the past 12 months has th e electric, gas, oil, or water [employer] threatened to shut off services in your [...] mouth at bedtime. 90 tablet 3 07/18/2025 6 ondansetron ODT (Zofran-ODT) 8 MG disintegrating tablet [...] morning and at bedtime. 60 tablet 07/18/2025 documented as of this encounter Progress Notes [...] Description 08/27/2025 8:45 AM EDT Office Visit [facility] ONCOLOGY PRACTICE [address] [place] [address] Rachel Pagan MD [address] [place] [address] 08/28/2025 1:00 PM EDT Office Visit [facility] ORTHOPEDIC PODIATRY PRACTICE [address] [place] [address] Yazan Castro DPM [address] [place] [address] 08/29/2025 10:30 AM EDT Appointment [facility] MEDICAL ONCOLOGY [address] [place] [address] 09/06/2025 1:45 PM EDT Appointment [facility] [address] [place] [address] 09/12/2025 9:30 AM EDT Appointment [facility] MRI BLDG D [address], [facility] [place] [address] 09/28/2025 9:30 AM EST Office Visit [facility] [address], [address]st [place] [address] Ky Jewell MD [address] [facility] [place] [address] 11/05/2025 2:45 PM EST Office Visit [facility] NEUROLOGY PRACTICE [address], 8[address] Floor Clinic [place] [phone] Ruddy Mayes MD [address] [facility] [place] [address] 12/31/2025 11:30 AM EST Office Visit [facility] NEPHROLOGY PRACTICE [address] [place] [address] 01/22/2026 9:00 AM EDT Office Visit [facility] CARDIOLOGY PRACTICE [address]st [place] [address] Allyn Toribio NP [address] [place] [id number] documented as of this encounter Goals Goal Patient Goal Type Associated Problems Recent Progress Patient-Stated? Author Patient's support system will participate in treatment General Emily Ny documented as of this encounter Results * T4, free (08/08/2025 10:02 AM EDT) Pathologist [facility] [place] Free T4 0.96 0.61 - 1.12 ng/dL 08/08/2025 11:21 AM EDT [facility] Blood Venous blood specimen / Unknown Venipuncture / Unknown 08/08/2025 10:02 AM EDT 08/08/2025 10:41 AM EDT us Rachel Soriano MD LAB BLOOD ORDERABLES Final Result [facility] [address] [place] [address], * TSH (08/08/2025 10:02 AM EDT) TSH 2.828 0.450 - 5.330 uIU/mL 08/08/2025 11:18 AM [facility] Comment: Non-Pregant Female: 0.45 - 5.33 IU/mL Female - 1st Trimester: 0.05 - 3.70 IU/mL Female - 2nd Trimester: 0.31 4.35 IU/mL Female - 3rd Trimester: 0.41 5.18 IU/mL Blood Venous blood specimen / Unknown Venipuncture / Unknown 08/08/2025 10:02 AM EDT 08/08/2025 10:41 AM EDT us Rachel Soriano MD LAB BLOOD ORDERABLES Final Result [facility] [address] [place] [address], * (ABNORMAL) Comprehensive metabolic panel (08/08/2025 10:02 AM EDT) Sodium 140 134 - 143 mmol/L 08/08/2025 11:11 AM [facility] Potassium 4.3 3.2 - 4.6 mmol/L 08/08/2025 11:11 AM [facility] Chloride 104 99 - 108 mmol/L 08/08/2025 11:11 AM [facility] CO2 30(H) 19 - 29 mmol/L 08/08/2025 11:11 AM [facility] Anion Gap 6 5 - 15 mmol/L 08/08/2025 11:11 AM [facility] BUN 18 7 - 20 mg/dL 08/08/2025 11:11 AM [facility] Creatinine 1.17 <=1.20 mg/dL 08/08/2025 11:11 AM [facility] BUN/Creatinine Ratio 15.38 10.00 - 20.00 ratio 08/08/2025 11:11 AM [facility] Glucose 85 58 - 104 mg/dL 08/08/2025 11:11 AM [facility] Calcium 9.0 7.9 - 11.1 mg/dL 08/08/2025 11:11 AM [facility] AST 17 10 - 28 U/L 08/08/2025 11:11 AM [facility] ALT (SGPT) 11 <=40 U/L 08/08/2025 11:11 AM [facility] Alkaline Phosphatase 69 29 - 108 U/L 08/08/2025 11:11 AM [facility] Total Protein 6.7 5.9 - 7.9 g/dL 08/08/2025 11:11 AM [facility] Albumin 2.9(L) 3.5 - 5.1 g/dL 08/08/2025 11:11 AM [facility] Globulin, Total 3.8 2.4 - 4.8 g/dL 08/08/2025 11:11 AM [facility] A/G Ratio 0.8 0.6 - 1.6 08/08/2025 11:11 AM [facility] Total Bilirubin 0.5 0.3 - 1.0 mg/dL 08/08/2025 11:11 AM [facility] eGFR (CKD-EPI) 48.7(L) >60.0 - 200.0 mL/min/1.7 3m*2 08/08/2025 11:11 AM [facility] Blood Venous blood specimen / Unknown Venipuncture / Unknown 08/08/2025 10:02 AM EDT 08/08/2025 10:41 AM EDT us Rachel Soriano MD LAB BLOOD ORDERABLES Final Result [facility] [address] [place] [address], * (ABNORMAL) CBC auto differential (08/08/2025 10:02 AM EDT) Auto WBC 3.6(L) 3.8 - 11.0 10*3/uL 08/08/2025 10:51 AM [facility] RBC 2.57(L) 3.73 - 5.13 10*6/uL 08/08/2025 10:51 AM [facility] Hemoglobin 9.2(L) 11.2 - 15.3 g/dL 08/08/2025 10:51 AM [facility] Hematocrit 27.5(L) 32.6 - 44.6 % 08/08/2025 10:51 AM [facility] MCV 106.9(H) 78.8 - 96.0 fL 08/08/2025 10:51 AM [facility] MCH 35.6(H) 26.2 - 33.0 pg 08/08/2025 10:51 AM [facility] MCHC 33.3 32.7 - 35.1 g/dL 08/08/2025 10:51 AM [facility] RDW 21.6(H) 12.1 - 16.1 % 08/08/2025 10:51 AM [facility] Platelets 83(L) 138 - 402 10*3/uL 08/08/2025 10:51 AM [facility] MPV 7.8 7.0 - 10.6 fL 08/08/2025 10:51 AM [facility] Neutrophils % 61 47 - 79 % 08/08/2025 10:51 AM [facility] Lymphocytes % 22 13 - 41 % 08/08/2025 10:51 AM [facility] Monocytes % 10 3 - 11 % 08/08/2025 10:51 AM [facility] Eosinophils % 8(H) 0 - 6 % 08/08/2025 10:51 AM [facility] Basophils % 0 0 - 2 % 08/08/2025 10:51 AM [facility] Neutrophils Absolute 2.20 1.90 - 7.50 10*3/uL 08/08/2025 10:51 AM [facility] Lymphocytes Absolute 0.80 0.80 - 3.20 10*3/uL 08/08/2025 10:51 AM [facility] Monocytes Absolute 0.30 0.10 - 0.90 10*3/uL 08/08/2025 10:51 AM EDT [facility] Eosinophils Absolute 0.30 0.00 - 0.40 10*3/uL 08/08/2025 10:51 AM EDT [facility] Basophils Absolute 0.00 0.00 - 0.20 10*3/uL 08/08/2025 10:51 AM EDT [facility] Blood Venous blood specimen / Unknown Venipuncture / Unknown 08/08/2025 10:02 AM EDT 08/08/2025 10:43 AM EDT Rachel Soriano MD LAB BLOOD ORDERABLES Final Result [facility] [address] [place] [address], documented in this encounter Visit Diagnoses Diagnosis [...] documented as of this encounter Care Teams Operater Relationship Specialty Start Date End Date Lizandro Khan NP [address] [place] [address] PCP - General Family Medicine 07/23/25 Rachel Pagan MD [address] [place], [place] [address] Consulting Physician Oncology 11/11/22 Pati Rucker APRN [address] [place] [address] Nurse Practitioner Oncology 12/21/22 Sosa Gardner APRN [address] [place] [address] Nurse Practitioner Oncology 06/24/23 Linda Elizabeth DO [address] [place] [address] Consulting Physician Oncology 03/01/25 Angie Murray RN [address] [place] [address] Nurse Navigator Oncology 06/26/25 documented as of this encounter
--- OUTSIDE RECORDS SUMMARY | 2025-08-13 14:45 | XMS_ITS | Encounter Summary ---
Author Organization [facility] Address [address] [place] [address] Care Team Providers Care Imp[employer]ator [employer] Name Role Phone Rachel Pagan MD Unavailable [phone] Pati Rucker CORROSION TECHNICIAN Unavailable [phone] Sosa Gardner CORROSION TECHNICIAN Unavailable [phone] Linda Elizabeth DO Unavailable Angie Murray RN Unavailable Unavailab Lizandro Islas NP Primary Care Provider [phone] Reason for Referral * Diagnostic Medical (Same Day) - Canceled Specialty Diagnoses / Procedures Referred By Dorothy ceballos Referred To Contact Diagnoses . Procedures Nail debridement Yazan Castro DPM [address] [place] [address] Phone: tel: fax: [facility], [facility] [address] [place] [address] Phone: tel: fax: Referral ID Status Reason Start Date Expiration Date Visits Requested Visits Authorized [id number] Canceled Perform Procedure 08/13/2025 08/13/2026 1 1 * Diagnostic Medical (Same Day) - Authorized Specialty Diagnoses / Procedures Referred By Dorothy ceballos Referred To Contact Podiatry Diagnoses Ingrown right big toenail Right foot pain Procedures Nail debridement Yazan Castro DPM [address] [place] [address] Phone: tel: fax: Yazan Castro DPM [address] [place] [address] Phone: tel: fax: Referral ID Status Reason Start Date Expiration Date Visits Requested Visits Authorized [id number] Authorized Perform Procedure 08/13/2025 08/13/2026 1 1 Reason for Visit * Reason Comments Ingrown Toenail * Consultation (Routine) - Authorized Specialty Diagnoses / Procedures Referred By Dorothy ceballos Referred To Contact Podiatry Diagnoses Infected nailbed of toe, left Procedures [place] OFFICE/OUTPATIENT NEW SF MDM 15 MINUTES [place] OFFICE/[place]PAT[place] NEW LOW MDM 30 MINUTES [place] OFFICE/[place]PAT[place] NEW MODERATE MDM 45 MINUTES [place] OFFICE/[place]PAT[place] NEW HIGH MDM 60 MINUTES [place] OFFICE/OUTPATIENT ESTABLISHED SF MDM 10 MIN [place] OFFICE/[place]PAT[place] ESTABLISHED LOW MDM 20 MIN [place] OFFICE/[place]PAT[place] ESTABLISHED MOD MDM 30 MIN [place] OFFICE/[place]PATIENT ESTABLISHED HIGH MDM 40 MIN Rachel Pagan MD [address] [place] [address] Phone: tel: fax: [facility] [address] [place] [address] Phone: tel: fax: Referral ID Status Reason Start Date Expiration Date Visits Requested Visits Authorized [id number] Authorized Specialty Services Required 07/04/2025 07/04/2026 1 3 Encounter Details Date Type Department Care Team (Late st Contact Info) Description 08/13/2025 2:45 PM EDT Office Visit [facility] [address] [place] [address], [facility] [place] [address] Gloria Yazan, DPYared [address] [place] [address] Ingrown right big toenail; Nail [...] How often do you attend chur or adventism services? More than 4 times per year 11/11/2022 Do you belong to any clubs o r organizations such as yazidism groups, unions, fraternal or athletic groups, or [...] place to sleep or slept in a group home (including now)? No 11/11/2022 AUDIT-C Answer [...] things needed for daily living? No 06/23/2025 [facility] Utilities Answer Date Recorded In the past 12 months has [employer], gas, oil, or water company threatened [...] in this encounter Progress Notes * Yazan Castro, DPM - 08/13/2025 2:45 PM EDTAssociated Order(s): [...] min Stress: No Stress Concern Present (01/11/2025) [place] [facility] [employer] [facility] - Occupational Stress Questionnaire Feeling of Stress : Not at all Social Connections: Moderately Integrated (11/11/2022) Social Connection and Isolation Panel Frequency of Communication with Friends and Family: Three times a week Frequency of Social Gatherings with Friends and Family: Three times a week Attends Taoism Services: More than 4 times per year [...] At this time an elevator, hemostat, and Upper Sor[place] anvil were used to remove the nail [...] diabetic?: no Time Out: 08/13/2025 4:07 PM [place] protocol: Procedure explained and questions answered to [...] diabetic?: no Time Out: 08/13/2025 4:08 PM [place] protocol: Procedure explained and questions answered to [...] Miscellaneous Notes * Patient Education - Martin Asad - 08/13/2025 3:03 PM EDT Images from the original note were not included. Patient Education Table of Contents Ingrown Toenail To view videos and all your education online visit, [email or web address] or scan this QR code with your [...] to help prevent infection. General instructions Take iqvv-odd-[id number] and prescription medicines only as told by [...] 2001-10-29 Document Updated: 2022-03-03 Document Reviewed: 2022-03-03 [employer] Patient Education ? 2024 [employer] documented in this encounter Plan of Treatment Upcoming Encounters Date Type Department Care Team (Late st Contact Info) Description 08/27/2025 8:45 AM EDT Office Visit [facility] [address] [place] [address] Rachel Pagan MD [address] [place] [address] 08/28/2025 1:00 PM EDT Office Visit [facility] [address] [place] [address] Yazan Castro DPM [address] [place] [address] 08/29/2025 10:30 AM EDT Appointment [facility] MEDICAL ONCOLOGY [address], [address] [place] [address] 09/06/2025 1:45 PM EDT Appointment [facility] ULTRASOUND [address], [address] [place] [address] 09/12/2025 9:30 AM EDT Appointment [facility] MRI BLDG D [address], [place] [address] 09/28/2025 9:30 AM EST Office Visit [facility]Y [facility]ACT[facility] [address], [address] [place] [address] Ky Jewell MD [address] [place] [address] 11/05/2025 2:45 PM EST Office Visit [facility]UR[facility] [address], 8[address] [place] [address] Ruddy Mayes MD [address] [place] [address] 12/31/2025 11:30 AM EST Office Visit [facility] NEPHR[facility]Y [facility] [address] [phone] 01/22/2026 9:00 AM EDT Office Visit [facility] [address], [address] [place] [address] Allyn Toribio NP [address] [id number] documented as of this encounter Goals Goal Patient Goal Type Associated Problems Recent Progress Patient-Stated? Author Patient's support system will participate in treatment General Emily Ny documented as of this encounter Procedures Procedure Name Priority Date/Time Associated Diagnosis Comments [place] DEBRIDEMENT NAIL ANY METHOD 6/> Today 08/13/2025 4:08 PM EDT Nail dystrophy Right foot pain Left foot pain HC REMOVAL OF NAIL BED Today 08/13/2025 4:07 PM EDT Ingrown right big toenail Right foot pain [place] EXCISION NAIL MATRIX PERMANENT REMOVAL Today 08/13/2025 4:07 PM EDT Ingrown right big toenail Right foot pain documented in this encounter Results * [place] DEBRIDEMENT NAIL ANY METHOD 6/> (08/13/2025 4:08 [...] diabetic?: no Time Out: 08/13/2025 4:08 PM [place] protocol: Procedure explained and questions answered to patient or proxy's satisfaction: yes Patient identity confirmed: Verbally with patient Anesthesia: Anesthesia method: None Nails debrided: Number of Nails debrided: 9 Post-procedure details: Procedure completion: Tolerated well, no immediate complications Yazan Castro DPM IN CLINIC/BEDSIDE ORDERABLE S Final Result * [place] EXCISION NAIL MATRIX PERMANENT REMOVAL, HC REMOVAL [...] diabetic?: no Time Out: 08/13/2025 4:07 PM [place] protocol: Procedure explained and questions answered to [...] Procedure completion: Tolerated well, no immediate complications us Yazan Castro DPM IN CLINIC/BEDSIDE ORDERABLE S [...] documented as of this encounter Care Teams Imp[employer]ator [employer] Relationship Specialty Start Date End Date Lizandro Khan NP [address] [place] [address] PCP - General Family Medicine 07/23/25 Rachel Pagan MD [address] [facility] [place] [address] Consulting Physician Oncology 11/11/22 Pati Rucker APRN [address] [facility] [place] [address] Nurse Practitioner Oncology 12/21/22 Sosa Gardner APRN [address] [facility] [place] [address] Nurse Practitioner Oncology 06/24/23 Linda Elizabeth DO [address] [facility] [place], [place] [id number] Consulting Physician Oncology 03/01/25 Angie Murray RN [address] [place] [address] Nurse Navigator Oncology 06/26/25 documented as of this encounter
[2025-08-22] VITALS (8 sets, daily range): BP systolic 86–107; BP diastolic 47–76; PULSE 66–77; RESP 13–18; TEMP 36.5; O2SAT 95–98; BMI 26.5
--- NOTE | 2025-08-22 02:04 | CT_ITS ---
PROCEDURE INFORMATION: Exam: CT Head Without Contrast Exam date and time: 08/22/2025 2:21 AM Age: 64 years old Clinical indication: Injury or trauma; Fall; Additional info: Fall, left ear trauma, HX brain cancer TECHNIQUE: Imaging protocol: Computed tomography of the head without contrast. Radiation optimization: All CT scans at this facility use at least one of these dose optimization techniques: automated exposure control; mA and/or kV adjustment per patient size (includes targeted exams where dose is matched to clinical indication); or iterative reconstruction. COMPARISON: No relevant prior studies available. FINDINGS: Brain: Scattered punctate and linear calcifications in the supra and infratentorial brain including RIGHT precentral gyrus. Underlying chronic microvascular ischemic disease without acute intraparenchymal hemorrhage and no obvious acute ischemic stroke. No intra-or extra-axial fluid collection, no supra-or infratentorial mass, no mass effect or midline shift. Cerebral ventricles: Chronic RIGHT-sided craniotomy with trace underlying chronic extra-axial fluid collection. Paranasal sinuses: No significant mucoperiosteal thickening in the visualized paranasal sinuses. Mastoid air cells: No mastoid effusion. Bones: Visualized skull bones are grossly normal. Soft tissues: Atherosclerotic calcification of the intracranial internal carotid/vertebral arteries. IMPRESSION: 1. Scattered punctate and linear calcifications in the supra and infratentorial brain including RIGHT precentral gyrus. Recommend comparison with prior studies to rule out possibility of subarachnoid hemorrhage. 2. Chronic RIGHT-sided craniotomy with trace underlying chronic extra-axial fluid collection. 3. Underlying chronic microvascular ischemic disease and generalized atrophy.
--- NOTE | 2025-08-22 02:04 | CT_ITS ---
PROCEDURE INFORMATION: Exam: CT Cervical Spine Without Contrast Exam date and time: 08/22/2025 2:23 AM Age: 64 years old Clinical indication: Injury or trauma; Additional info: Fall TECHNIQUE: Imaging protocol: Computed tomography of the cervical spine without contrast. Radiation optimization: All CT scans at this facility use at least one of these dose optimization techniques: automated exposure control; mA and/or kV adjustment per patient size (includes targeted exams where dose is matched to clinical indication); or iterative reconstruction. COMPARISON: CT HEAD/BRAIN WO CON 08/22/2025 2:21 AM FINDINGS: Bones: Loss of normal curvature of the spine, alignment of the vertebral bodies is grossly normal. Osteopenia with indeterminate lucencies without cortical erosion within the vertebral bodies. No evidence of acute compression fracture or deformity in the cervical spine. No acute fracture involving the vertebral bodies or their posterior elements. Discs/Spinal canal/Neural foramina: Chronic degenerative changes in the visualized cervical spine. Lungs: Scarring/pleural thickening in the lung apices. Soft tissues: Pre-and paravertebral soft tissues are grossly normal. Circumferential wall thickening of the cervical and visualized thoracic esophagus suggestive of reflux disease/esophagitis. Atherosclerotic calcification of the carotid arteries and aortic arch. IMPRESSION: 1. Chronic degenerative changes without an acute bony cervical spine injury or abnormality. 2. Osteopenia with indeterminate lucencies without cortical erosion within the vertebral bodies. Recommend MRI for further evaluation/characterization.
--- NOTE | 2025-08-22 02:04 | XR_ITS ---
PROCEDURE INFORMATION: Exam: XR Pelvis Exam date and time: 08/22/2025 2:12 AM Age: 64 years old Clinical indication: Injury or trauma; Fall TECHNIQUE: Imaging protocol: Radiologic exam of the pelvis. Views: 1 or 2 view. COMPARISON: No relevant prior studies available. FINDINGS: Bones/joints: Unremarkable. No acute fracture. Soft tissues: Unremarkable. IMPRESSION: No acute findings.
--- NOTE | 2025-08-22 02:04 | XR_ITS ---
PROCEDURE INFORMATION: Exam: XR Chest Exam date and time: 08/22/2025 2:12 AM Age: 64 years old Clinical indication: Injury or trauma; Fall TECHNIQUE: Imaging protocol: Radiologic exam of the chest. Views: 1 view. COMPARISON: No relevant prior studies available. FINDINGS: Tubes, catheters and devices: Central venous catheter in good position. Lungs: Unremarkable. No consolidation. Pleural spaces: Unremarkable. No pleural effusion. No pneumothorax. Heart/Mediastinum: Unremarkable. No cardiomegaly. Bones/joints: Unremarkable. IMPRESSION: No acute traumatic injury identified.
--- NOTE | 2025-08-22 02:07 | ED_ITS ---
Discharge Plan Referrals Follow up/Referrals: Lizandro Khan APRN [Primary Care Provider, Medical] - See instructions Clinical Impressions Clinical Impression: Abnormal brain CT, Laceration of left external ear with complication Print Language Print Language: [place] Discharge ED Provider: Kal Wall Adult HPI General Chief complaint: Fall Stated complaint: AO 08/22/25 0130, fell, lac to left ear Time Seen by Provider: 08/22/25 01:53 History of Present Illness HPI narrative: 64-year-old female with history of lung cancer and brain cancer, has completed chemotherapy, currently on immunotherapy, on blood thinners, presents for fall with left ear trauma. Patient reports that she had a mechanical fall landing her left ear against the windowsill. She denies headache, denies neck pain, denies chest pain abdominal pain or extremity pain. She did not lose consciousness. She reports bleeding from her left ear. Related Data Allergies Allergy/AdvReac Type Severity Reaction Status Date / Time cephalexin (From Keflex) AdvReac Other Verified 08/22/25 02:29 ciprofloxacin (From Cipro) AdvReac Other Verified 08/22/25 02:29 [facility] Disclaimer: The information contained in this section may have been updated after the patient was seen, as this information can be updated by other users. Medical History (Updated 08/22/25 @ 03:31 by Kal Wall MD) Low hemoglobin Stroke (cerebrum) Brain cancer Lung cancer Social History Smoking Status: Current every day smoker alcohol intake: never current occupational status: previously employed Travel in the last 8 weeks?: None ROS Obtained: Yes All systems reviewed & no additional complaints except as documented Physical Exam General General appearance: alert and in no apparent distress Head Head exam: normocephalic and other (Laceration with exposed cartilage through the left pinna with dusky superior flap poorly attached) Eye Eye exam: Present normal appearance, PERRL and EOMI ENT ENT exam: Present normal oropharynx Neck Neck exam: Present normal inspection and full ROM Chest Chest inspection: Present normal inspection and symmetric chest wall rise; Absent tenderness Respiratory Respiratory exam: Present normal lung sounds bilaterally; Absent respiratory distress Cardiovascular Cardiovascular exam: Present regular rate and normal rhythm Abdominal Exam Abdominal exam: Present soft; Absent distention, tenderness or guarding Extremities Exam Extremities exam: Present normal inspection; Absent edema or joint swelling Back Exam Back exam: Present normal inspection; Absent tenderness Neurological Exam Neurological exam: Present alert and oriented X3; Absent motor sensory deficit Psychiatric Psychiatric exam: Present normal affect and normal mood Skin Skin exam: Present warm, dry and normal color Lymphatic Lymphatic Findings: no adenopathy Medical Decision Making Medical Records Medical records reviewed: Yes I reviewed the patient's medical records. Screening: Per USPSTF and CDC recommendations, given the prevalence of disease in our region, it is our hospital?s policy to screen for HIV and viral Hepatitis for all patients aged 18 and over and those with ongoing risk factors. Marcello Inquiry Pt receiving controlled substance: No Marcello was queried for this patient: No Vital Signs: 08/22/25 01:48 08/22/25 02:08 08/22/25 02:10 Temperature 97.7 F Temperature Source Oral Pulse Rate 77 77 Pulse Rate [Left Radial] 66 Respiratory Rate 18 Blood Pressure Blood Pressure [Right Arm] 96/49 L Blood Pressure Mean Blood Pressure Mean [Right Arm] 64 02 Sat by Pulse Oximetry 96 98 96 Oxygen Delivery Method Room Air 08/22/25 02:33 08/22/25 02:36 08/22/25 02:37 Temperature Temperature Source Pulse Rate Pulse Rate [Left Radial] Respiratory Rate Blood Pressure 86/68 L 107/48 L Blood Pressure [Right Arm] Blood Pressure Mean 74 67 Blood Pressure Mean [Right Arm] 02 Sat by Pulse Oximetry 95 Oxygen Delivery Method Room Air 08/22/25 03:00 08/22/25 03:00 Temperature Temperature Source Pulse Rate 74 Pulse Rate [Left Radial] Respiratory Rate 13 Blood Pressure 92/47 L Blood Pressure [Right Arm] Blood Pressure Mean 61 Blood Pressure Mean [Right Arm] 02 Sat by Pulse Oximetry 95 Oxygen Delivery Method Lab Data Lab results reviewed: Yes I reviewed the patient's lab results. Lab Results 08/22/25 02:55: WBC 2.5 L, RBC 2.09 L, Hgb 7.7 L, Hct 23.7 L, MCV 113.4 H, MCH 36.8 H, MCHC 32.5, RDW 17.7 H, Plt Count 64 L, MPV 10.0, Neut % (Auto) 48.2, Lymph % (Auto) 37.8, [place] % (Auto) 9.2, Eos % (Auto) 3.6, Baso % (Auto) 0.8, N eut # (Auto) 1.2 L, Lymph # (Auto) 1.0, [place] # (Auto) 0.2, Eos # (Auto) 0.1, Baso # (Auto) 0.0, PT 13.0 H, INR 1.19 H, APTT 29.9 08/22/25 02:55 Orders (Tests/Meds): ED MEDICATIONS Discontinued Medications Generic Name Dose Route Start Last Admin Trade Name Freq PRN Reason Stop Dose Admin Acetaminophen 1,000 mg 08/22/25 02:05 08/22/25 02:51 Acetaminophen 1,000mg/100ml Vial IV 08/22/25 02:06 1,000 mg ONCE ONE Administration Morphine Sulfate 4 mg 08/22/25 02:04 08/22/25 02:51 Morphine 4mg/Ml Syringe IV 08/22/25 02:05 4 mg ONCE ONE Administration ORDERS Category Date Time Status CT cervical spine wo con Stat Cat Scan 08/22/25 02:[address] head/brain wo con Stat Cat Scan 08/22/25 02:04 Completed CXR --portable [XR chest portable] Stat Exams 08/22/25 02:04 Taken Pelvis XR 1-2 views [XR pelvis 1-2V] Stat Exams 08/22/25 02:04 Taken CBC w/Auto Diff [Complete Blood Count Auto Diff] Stat Lab 08/22/25 02:55 Completed CMP [Comprehensive Metabolic Panel] Stat Lab 08/22/25 02:55 Received HIV Combo Stat Lab 08/22/25 02:55 Received Hepatitis C Ab Qual. W/ RFX Stat Lab 08/22/25 02:55 Received INR [Prothrombin Time INR] Stat Lab 08/22/25 02:55 Completed Magnesium Stat Lab 08/22/25 02:55 Received PTT [Activated Partial Thrombo Time] Stat Lab 08/22/25 02:55 Completed Troponin I Q3H Lab 08/22/25 02:55 Received Troponin I Q3H Lab 08/22/25 05:00 Ordered Medical Decision Narrative: 64-year-old female with history of lung cancer, brain cancer, on blood thinners, status post chemotherapy, presents for fall with left ear laceration. History was obtained via interactive discussion with patient. On arrival, patient is mildly hypotensive, regular rate and rhythm, satting appropriately on room air, moving all extremities spontaneously. Full physical exam performed and significant for Laceration with exposed cartilage through the left pinna with dusky superior flap poorly attached Differential includes but is not limited to intracranial trauma and thoracic trauma intra-abdominal trauma spine trauma extremity trauma. Patient was given morphine and Tylenol for pain control. Up-to-date on tetanus. Workup initiated including CT head, CT C-spine, radiographs of the chest and pelvis. On re-evaluation, patient remains mildly hypotensive, asymptomatic. Laboratory workup independently interpreted by me and significant for pancytopenia with platelets 64, hemoglobin 10.7, white count 2.5. INR 1.2. Chemistry is not yet resulted.. Imaging independently interpreted by me and significant for possible subarachnoid hemorrhage. Radiology reports that cannot rule out subarachnoid due to her calcifications. On exam, patient has no neurologic deficits or headache and so I clinically do not think that she has a subarachnoid at this point. CT also reports hypodensities within the cervical spine without acute fracture for which they recommend follow-up MRI. See radiology read for full review of final results. Given patient history, exam and workup, patient's presentation most likely represents fall on blood thinners with complex laceration of the left ear. Unable to rule out subarachnoid hemorrhage due to likely chronic calcifications. The ear was irrigated. I considered giving floroquinolones for antibiotic coverage given cartilage exposure but she is allergic to fluoroquinolones. Interactive discussion was had with the [facility]. They accepted the patient in transfer for further assessment. Procedures Risk/Benefits of Procedure(s) Were Explained: Yes Critical Care Critical Care Time Critical Care Time: Yes Attestation: On 08/22/25, the high probability of a clinically significant, sudden or life threatening deterioration of the following system(s) required my full and direct attention, intervention and personal management. The time I documented below is in addition to time spent performing reported procedures but includes the following listed in this critical care notation. Total Time Total Critical Care Time: 35
--- NOTE | 2025-08-22 02:30 | ECG_ITS ---
APPROVED REPORT Exam: Resting ECG HR:77 bpm ECG Measurements Heart Rate 77 AXES NH 163 P 37 QRSd 63 QRS 21 QT 368 T 34 QTc 400 Conclusion SINUS RHYTHM NONSPECIFIC T-WAVE ABNORMALITY BORDERLINE ECG UNCONFIRMED REPORT Electronically signed by : TIMA SMITH, 08/23/2025 00:32:08
--- OUTSIDE RECORDS SUMMARY | 2025-08-22 02:43 | XMS_ITS | Encounter Summary ---
Author Organization [facility] nter Address [address] [place] [address] Care Team Providers Care Paper Spooler Name Role Phone Rahcel Pagan MD Unavailable [phone] Yesy Acuna RN Unavailable [phone] DIRECTOR OF MARKETING OPERATIONS Primary Care Provider [phone] Pati Rucker DYE REEL OPERATOR Unavailable [phone] Sosa Gardner DYE REEL OPERATOR Unavailable [phone] Italo Camejo DIRECTOR OF MARKETING OPERATIONS Primary Care Provider [phone] Linda Elizabeth DO Unavailable Lizandro Khan DIRECTOR OF MARKETING OPERATIONS Primary Care Provider [phone] Elsa Vazquez Unavailable Unavailable Angie Murray RN Unavailable Unavailab Lizandro Islas DIRECTOR OF MARKETING OPERATIONS Primary Care Provider [phone] Encounter Details Date Type Department Care Team (Late st Contact Info) Description 01/22/2023 Orders Only [facility] [address] 10th [place] [address] Rachel Pagan MD [address] [place] [address] Non-small cell cancer of right lung Social History Tobacco Use Types Packs/Day Years Used Date Smoking Tobacco: Heavy Smoker Cigarettes 1 30 Passive Smoke Exposure: Current Smokeless Tobacco: Never Alcohol Use Standard Drinks/Week [...] do you attend [facility] or nondenominational services? More than 4 times per year 11/11/2022 Do you belong to any clubs o r organizations such as yazidi groups, unions, fraternal or athletic groups, or school groups? Yes 11/11/2022 How often do you attend meet ings of the clubs or organizations you belong to? More than 4 times per year 11/11/2022 Are you , , di vorced, , never , or living with a partner? 11/11/2022 AUDIT-C Answer Date Recorded Q1: How often do you have a drink containing alcohol? Never 11/11/2022 Q2: How many drinks containi ng alcohol do you have on a typical day when you are drinking? Patient does not drink Q3: How often do you have si x or more drinks on one occasion? Never 11/11/2022 Overall Financial Resource Strain (CARDIA) Answe r Date Recorded How hard is it for you to pa y for the very basics like food, housing, medical care, and heating? Not very hard 11/11/2022 Exercise Vital Sign Answer Date Recorde d On average, how many days pe r week do you engage in moderate to strenuous exercise (like a brisk walk)? 7 days 11/11/2022 On average, how many minutes do you engage in exercise at this level? 30 min 11/11/2022 Hunger Vital Sign Answer Date Recorded Within the past 12 months, y ou worried that your food would run out before you got the money to buy more. Never true 11/11/20 22 Within the past 12 months, t he food you bought just didn't last and you didn't have money to get more. Never true 11/11/2022 PRAPARE - Transportation Answer Date Re corded In the past 12 months, has l ack of transportation kept you from medical appointments or from getting medications? No 10/16 In the past 12 months, has l ack of transportation kept you from meetings, work, or from getting things needed for daily living? No 11/11/2022 Housing Stability Vital Sign Answer Hector e [...] in a halfway (including now)? No 11/11/2022 Comments No Sex and Gender Information Value Date Recorded Sex Assigned at Female 01/21/2022 1:00 PM EST Legal Sex Female 1:00 PM EST Gender Identity Female 01/21/2022 1:00 PM EST Sexual Orientation Straight 01/21/2022 1: 00 PM EST COVID-19 Exposure Response Date Recorded In the last 10 days, have yo u been in contact with someone who was confirmed or suspected to have Coronavirus/COVID-19? No / Unsure 01/25/2023 8:56 AM EDT documented as of this encounter Functional Status [...] Demetri Moser RN documented in this encounter Plan of Treatment Upcoming Encounters Date Type Department Care Team (Late st Contact Info) Description 08/27/2025 8:45 AM EDT Office Visit [facility] ONCOLOGY PRACTICE [address] [place] [address] Rachel Pagan MD [address] [place] [address] 08/28/2025 1:00 PM EDT Office Visit [facility] ORTHOPEDIC PODIATRY PRACTICE [address], [address] [place] [address] Yazan Castro DPM [address] [place] [address] 08/29/2025 10:30 AM EDT Appointment [facility] MEDICAL ONCOLOGY [address], [address] [place] [address] 09/06/2025 1:45 PM EDT Appointment [facility] ULTRASOUND [address], 2nd [place] [address] 09/12/2025 9:30 AM EDT Appointment [facility] MRI BLDG D [address], [facility] [place] [phone] 09/28/2025 9:30 AM EST Office Visit [facility] CARDIOLOGY PRACTICE [address], 1st [place] [address] Ky Jewell MD [facility] [address] [facility] [place] [address] 11/05/2025 2:45 PM EST Office Visit [facility] NEUROLOGY PRACTICE [address], 8[address] [place] [address] Ruddy Mayes MD [facility] [address] [facility] [place] [address] 12/31/2025 11:30 AM EST Office Visit [facility] NEPHROLOGY PRACTICE [address] [place] [phone] 01/22/2026 9:00 AM EDT Office Visit [facility] CARDIOLOGY PRACTICE [address], 1st [place] [address] Allyn Toribio, [place] [address] [place] [address] documented as of this encounter Results * (ABNORMAL) Comprehensive metabolic panel (01/25/2023 9:01 AM EDT) Sodium 144 133 - 144 mmol/L 01/25/2023 9:39 AM EDT [facility] Potassium 3.8 3.6 - 5.2 mmol/L 01/25/2023 9:39 AM EDT [facility] Chloride 114(H) 98 - 107 mmol/L 01/25/2023 9:39 AM EDT [facility] CO2 27 21 - 32 mmol/L 01/25/2023 9:39 AM [facility] Anion Gap 3(L) 5 - 15 mmol/L 01/25/2023 9:39 AM [facility] BUN 15 7 - 18 mg/dL 01/25/2023 9:39 AM [facility] Creatinine 1.00 0.55 - 1.02 mg/dL 01/25/2023 9:39 AM [facility] BUN/Creatinine Ratio 15.00 10.00 - 20.00 ratio 01/25/2023 9:39 AM [facility] Glucose 170(H) 70 - 110 mg/dL 01/25/2023 9:39 AM [facility] Calcium 9.1 8.5 - 10.1 mg/dL 01/25/2023 9:39 AM [facility] AST 15 15 - 37 U/L 01/25/2023 9:39 AM [facility] ALT (SGPT) 32 13 - 56 U/L 01/25/2023 9:39 AM [facility] Alkaline Phosphatase 117 45 - 117 U/L 01/25/2023 9:39 AM [facility] Total Protein 6.9 6.4 - 8.4 g/dL 01/25/2023 9:39 AM [facility] Albumin 3.2(L) 3.4 - 5.0 g/dL 01/25/2023 9:39 AM [facility] Globulin, Total 3.7 2.4 - 4.8 g/dL 01/25/2023 9:39 AM [facility] A/G Ratio <1.0 0.6 - 1.6 01/25/2023 9:39 AM [facility] Total Bilirubin 0.2 0.0 - 1.0 mg/dL 01/25/2023 9:39 AM [facility] eGFR (CKD-EPI) 59.7(L) >60.0 - 200.0 mL/min/1.7 3m*2 01/25/2023 9:39 AM [facility] Blood Venous blood specimen / Unknown Existing Catheter / Unknown 01/25/2023 9:01 AM EDT 01/25/2023 9:06 AM EDT Rachel Soriano MD LAB BLOOD ORDERABLES Final Result [facility] [address] [place] [address], * (ABNORMAL) CBC auto differential (01/25/2023 9:01 AM EDT) Auto WBC 6.0 3.0 - 11.3 10*3/uL LAB HEMATOLOGY METHOD 01/25/2023 9:22 [facility] RBC 4.35 3.45 - 5.40 10*6/uL LAB HEMATOLOGY METHOD 01/25/2023 9:22 AM [facility] Hemoglobin 13.5 10.0 - 16.0 g/dL LAB HEMATOLOGY METHOD 01/25/2023 9:22 AM [facility] Hematocrit 39.6 29.9 - 45.5 % LAB HEMATOLOGY METHOD 01/25/2023 9:22 AM [facility] MCV 91.0 78.2 - 101.8 fL LAB HEMATOLOGY METHOD 01/25/2023 9:22 AM [facility] MCH 31.1 26.4 - 33.3 pg LAB HEMATOLOGY METHOD 01/25/2023 9:22 AM [facility] MCHC 34.2 32.5 - 35.3 g/dL LAB HEMATOLOGY METHOD 01/25/2023 9:22 AM [facility] RDW 14.3 10.1 - 16.2 % LAB HEMATOLOGY METHOD 01/25/2023 9:22 AM [facility] MPV 8.0 6.4 - 10.4 fL LAB HEMATOLOGY METHOD 01/25/2023 9:22 AM [facility] Neutrophils % 51 43 - 83 % LAB HEMATOLOGY METHOD 01/25/2023 9:22 AM [facility] Lymphocytes % 37 10 - 42 % LAB HEMATOLOGY METHOD 01/25/2023 9:22 AM [facility] Monocytes % 7 1 - 14 % LAB HEMATOLOGY METHOD 01/25/2023 9:22 AM [facility] Eosinophils % 4 0 - 11 % LAB HEMATOLOGY METHOD 01/25/2023 9:22 AM [facility] Basophils % 1 0 - 2 % LAB HEMATOLOGY METHOD 01/25/2023 9:22 AM [facility] Neutrophils Absolute 3.00(L) 3.40 - 7.00 10*3/uL LAB HEMATOLOGY METHOD 01/25/2023 9:22 AM [facility] Lymphocytes Absolute 2.20 0.40 - 3.90 10*3/uL LAB HEMATOLOGY METHOD 01/25/2023 9:22 AM [facility] Monocytes Absolute 0.40 0.20 - 0.60 10*3/uL LAB HEMATOLOGY METHOD 01/25/2023 9:22 AM [facility] Eosinophils Absolute 0.20 0.00 - 0.90 10*3/uL LAB HEMATOLOGY METHOD 01/25/2023 9:22 AM [facility] Basophils Absolute 0.10 0.00 - 0.20 10*3/uL LAB HEMATOLOGY METHOD 01/25/2023 9:22 AM [facility] Platelets 230 122 - 454 10*3/uL LAB HEMATOLOGY METHOD 01/25/2023 9:22 AM [facility] Blood Venous blood specimen / Unknown Existing Catheter / Unknown 01/25/2023 9:01 AM EDT 01/25/2023 9:06 AM EDT us Rachel Soriano MD LAB BLOOD ORDERABLES Final Result [facility] [address] [place] [address], documented in this encounter Visit Diagnoses Diagnosis Non-small cell cancer of right lung documented in this encounter Additional Health Concerns Infection Onset Date Last Indicated Resolved Time Respiratory Rule-Out 04/20/2024 04/20/2024 024 1:54 PM EDT Respiratory Rule-Out 04/25/2024 04/25/2024 024 4:02 PM EDT Respiratory Rule-Out 01/10/2025 01/10/2025 025 12:51 PM EST Respiratory Rule-Out 01/10/2025 01/10/2025 025 11:59 PM EST Respiratory Rule-Out 03/19/2025 03/19/2025 025 11:11 AM EDT Gastrointestinal Rule-Out 05/15/2025 05/18/2025 11:26 AM EDT C. difficile Rule-Out 05/15/2025 05/18/20252024 12:02 PM EDT ESBL Escherichia coli (Urina ry) Comment:Urine + ESBL E coli 05/15/25. Patient already noted to be in contact isolation. Tila Dia 05/21/25 8:47 AM Readmitted 06/12/25. Patient already noted to be in contact isolation. Tila Dia 06/12/25 1:24 PM 05/15/2025 05/15/2025 06/14/2025 7:28 PM E DT documented as of this encounter Care Teams Paper Spooler Relationship Specialty Start Date End Date Viridiana Plaza NP [address] [place] [phone] PCP - General Family Medicine 12/10/22 09/23/23 Italo Camejo NP [address] [place] [address], [address] [place] [address] PCP - General Family Medicine 09/24/23 03/19/25 Lizandro Khan NP [address] [place] [address] PCP - General Family Medicine 03/20/25 07/22/25 Lizandro Khan NP [address] [place] [address] PCP - General Family Medicine 07/23/25 Rachel Pagan MD [address] [place], [place] [phone] Consulting Physician Oncology 11/11/22 Yesy Acuna RN [address] [place], [place] [address] Nurse Navigator 11/12/22 03/05/25 Pati Rucker APRN [address] [place], [place] [address] Nurse Practitioner Oncology 12/21/22 Sosa Gardner APRN [address] [place], [place] [phone] Nurse Practitioner Oncology 06/24/23 Linda Elizabeth DO [address] [place], [place] [address] Consulting Physician Oncology 03/01/25 Elsa Vazquez [address] [place] [address] Nurse Navigator Oncology 06/05/25 07/19/25 Angie Murray RN [address] [place], [place] [address] Nurse Navigator Oncology 06/26/25 documented as of this encounter
--- OUTSIDE RECORDS SUMMARY | 2025-08-22 02:43 | XMS_ITS | Encounter Summary ---
Author Organization [facility] nter Address [address] [place] [address] Care Team Providers Care Jingle Writer Name Role Phone Rachel Pagan MD Unavailable [phone] Yesy Acuna RN Unavailable [phone] ANIMAL BEHAVIOURIST Primary Care Provider [phone] Pati Rucker ROTARY DRILL OPERATOR HELPER Unavailable [phone] Sosa Gardner ROTARY DRILL OPERATOR HELPER Unavailable [phone] Italo Camejo ANIMAL BEHAVIOURIST Primary Care Provider [phone] Linda Elizabeth DO Unavailable Lizandro Khan ANIMAL BEHAVIOURIST Primary Care Provider [phone] Elsa Vazquez Unavailable Unavailable Angie Murray RN Unavailable Unavailab Lizandro Islas ANIMAL BEHAVIOURIST Primary Care Provider [phone] Encounter Details Date Type Department Care Team (Late st Contact Info) Description 01/25/2023 Orders Only [facility] [address], 10th [place] [address] Rachel Pagan MD [address] [place] [address] Non-small cell cancer of right [...] week 11/11/2022 How often do you attend [facility] or uatsdin services? More than 4 times per year [...] place to sleep or slept in a longterm (including now)? No 11/11/2022 Comments No Sex [...] ONCOLOGY PRACTICE [address] 10th [place] [address] Rachel Pagan MD [address] [place] [address] 08/28/2025 1:00 PM EDT Office Visit [facility] ORTHOPEDIC PODIATRY PRACTICE [address] 6th [place] [address] Yazan Castro DPM [address] [place] [address] 08/29/2025 10:30 AM EDT Appointment [facility] MEDICAL ONCOLOGY [address], 11th [place] [address] 09/06/2025 1:45 PM EDT Appointment [facility] ULTRASOUND [address], 2nd [place] [address] 09/12/2025 9:30 AM EDT Appointment [facility] MRI BLDG D [address], [facility] [place] [phone] 09/28/2025 9:30 AM EST Office Visit [facility] CARDIOLOGY PRACTICE [address], [address] [place] [phone] [facility] [address] [facility] [place] [address] 11/05/2025 2:45 PM EST Office Visit [facility] NEUROLOGY PRACTICE [address], 8th [place] [address] [facility] [address] [facility] [place] [address] 12/31/2025 11:30 AM EST Office Visit [facility] NEPHROLOGY PRACTICE [address] [phone] 01/22/2026 9:00 AM EDT Office Visit [facility] CARDIOLOGY PRACTICE [address], 1[address] [place] [phone] Allyn Toribio, [place] [address] [place] [address] documented as of this encounter Results * (ABNORMAL) Comprehensive metabolic panel (02/01/2023 8:53 AM EDT) Sodium 141 133 - 144 mmol/L 02/01/2023 9:50 AM EDT [facility] Potassium 3.8 3.6 - 5.2 mmol/L 02/01/2023 9:50 AM EDT [facility] Comment:Specimen slightly he molyzed. Results may be falsely elevated. Chloride 113(H) 98 - 107 mmol/L 02/01/2023 9:50 [facility] CO2 24 21 - 32 mmol/L 02/01/2023 9:50 AM [facility] Anion Gap 4(L) 5 - 15 mmol/L 02/01/2023 9:50 AM [facility] BUN 17 7 - 18 mg/dL 02/01/2023 9:50 AM [facility] Creatinine 1.20(H) 0.55 - 1.02 mg/dL 02/01/2023 9:50 AM [facility] BUN/Creatinine Ratio 14.17 10.00 - 20.00 ratio 02/01/2023 9:50 AM [facility] Glucose 161(H) 70 - 110 mg/dL 02/01/2023 9:50 AM [facility] Calcium 9.2 8.5 - 10.1 mg/dL 02/01/2023 9:50 AM [facility] AST 15 15 - 37 U/L 02/01/2023 9:50 AM [facility] Comment:Specimen slightly he molyzed. Results may be falsely elevated. ALT (SGPT) 23 13 - 56 U/L 02/01/2023 9:50 AM [facility] Alkaline Phosphatase 129(H) 45 - 117 U/L 02/01/2023 9:50 AM [facility] Total Protein 6.7 6.4 - 8.4 g/dL 02/01/2023 9:50 AM [facility] Albumin 2.9(L) 3.4 - 5.0 g/dL 02/01/2023 9:50 AM [facility] Globulin, Total 3.8 2.4 - 4.8 g/dL 02/01/2023 9:50 AM [facility] A/G Ratio <1.0 0.6 - 1.6 02/01/2023 9:50 AM [facility] Total Bilirubin 0.3 0.0 - 1.0 mg/dL 02/01/2023 9:50 AM [facility] eGFR (CKD-EPI) 47.9(L) >60.0 - 200.0 mL/min/1.7 3m*2 02/01/2023 9:50 AM [facility] Blood Venous blood specimen / Unknown Existing Catheter / Unknown 02/01/2023 8:53 AM EDT 02/01/2023 9:01 AM EDT us Rachel Soriano MD LAB BLOOD ORDERABLES Final Result Performing Organization Address City/State/[facility] Co de Phone Number [facility] [address] [place] [address], * CBC auto differential (02/01/2023 8:53 AM EDT) Auto WBC 8.3 3.0 - 11.3 10*3/uL LAB HEMATOLOGY METHOD 02/01/2023 9:22 AM [facility] RBC 4.48 3.45 - 5.40 10*6/uL LAB HEMATOLOGY METHOD 02/01/2023 9:22 AM [facility] Hemoglobin 13.7 10.0 - 16.0 g/dL LAB HEMATOLOGY METHOD 02/01/2023 9:22 AM [facility] Hematocrit 40.7 29.9 - 45.5 % LAB HEMATOLOGY METHOD 02/01/2023 9:22 AM [facility] MCV 90.8 78.2 - 101.8 fL LAB HEMATOLOGY METHOD 02/01/2023 9:22 AM [facility] MCH 30.6 26.4 - 33.3 pg LAB HEMATOLOGY METHOD 02/01/2023 9:22 AM [facility] MCHC 33.7 32.5 - 35.3 g/dL LAB HEMATOLOGY METHOD 02/01/2023 9:22 AM [facility] RDW 14.1 10.1 - 16.2 % LAB HEMATOLOGY METHOD 02/01/2023 9:22 AM [facility] MPV 8.3 6.4 - 10.4 fL LAB HEMATOLOGY METHOD 02/01/2023 9:22 AM [facility] Neutrophils % 69 43 - 83 % LAB HEMATOLOGY METHOD 02/01/2023 9:22 AM [facility] Lymphocytes % 22 10 - 42 % LAB HEMATOLOGY METHOD 02/01/2023 9:22 AM [facility] Monocytes % 6 1 - 14 % LAB HEMATOLOGY METHOD 02/01/2023 9:22 AM [facility] Eosinophils % 3 0 - 11 % LAB HEMATOLOGY METHOD 02/01/2023 9:22 AM [facility] Basophils % 1 0 - 2 % LAB HEMATOLOGY METHOD 02/01/2023 9:22 AM [facility] Neutrophils Absolute 5.70 3.40 - 7.00 10*3/uL LAB HEMATOLOGY METHOD 02/01/2023 9:22 AM [facility] Lymphocytes Absolute 1.80 0.40 - 3.90 10*3/uL LAB HEMATOLOGY METHOD 02/01/2023 9:22 AM [facility] Monocytes Absolute 0.50 0.20 - 0.60 10*3/uL LAB HEMATOLOGY METHOD 02/01/2023 9:22 AM [facility] Eosinophils Absolute 0.20 0.00 - 0.90 10*3/uL LAB HEMATOLOGY METHOD 02/01/2023 9:22 AM [facility] Basophils Absolute 0.10 0.00 - 0.20 10*3/uL LAB HEMATOLOGY METHOD 02/01/2023 9:22 AM [facility] Platelets 276 122 - 454 10*3/uL LAB HEMATOLOGY METHOD 02/01/2023 9:22 AM [facility] Blood Venous blood specimen / Unknown Existing Catheter / Unknown 02/01/2023 8:53 AM EDT 02/01/2023 9:01 AM EDT us Rachel Soriano MD LAB BLOOD ORDERABLES Final Result [facility] [address] [place] [address], documented in this encounter Visit Diagnoses Diagnosis [...] documented as of this encounter Care Teams Jingle Writer Relationship Specialty Start Date End Date Viridiana Plaza NP [address] [place] [phone] PCP - General Family Medicine 12/10/22 09/23/23 Italo Camejo NP [address] [facility], [address] [place] [address] PCP - General Family Medicine 09/24/23 03/19/25 Lizandro Khan NP [address] [place] [address] PCP - General Family Medicine 03/20/25 07/22/25 Lizandro Khan NP [address] [facility] [place] [address] PCP - General Family Medicine 07/23/25 Rachel Pagan MD [address] [place] [phone] Consulting Physician Oncology 11/11/22 Yesy Acuna, [place] [address] [place] [address] Nurse Navigator 11/12/22 03/05/25 Pati Rucker APRN [address] [place], [place] [phone] Nurse Practitioner Oncology 12/21/22 Sosa Gardner APRN [address] [place], [place] [phone] Nurse Practitioner Oncology 06/24/23 Linda Elizabeth DO [address] [place] [address] Consulting Physician Oncology 03/01/25 Elsa Vazquez [address] [place], [place] [address] Nurse Navigator Oncology 06/05/25 07/19/25 Angie Murray RN [address] [place], [place] [address] Nurse Navigator Oncology 06/26/25 documented as of this encounter
--- OUTSIDE RECORDS SUMMARY | 2025-08-22 02:44 | XMS_ITS | Encounter Summary ---
Author Organization [facility] nter Address [address] [place] [address] Care Team Providers Care Counselor Marriage And Family Name Role Phone Rachel Pagan MD Unavailable [phone] Pati Rucker BREED TO WEAN PRODUCTION TECHNICIAN Unavailable [phone] Sosa Gardner BREED TO WEAN PRODUCTION TECHNICIAN Unavailable [phone] Linda Elizabeth DO Unavailable Lizandro Khan NP Primary Care Provider [phone] Elsa Vazquez Unavailable Unavailable Angie Murray RN Unavailable Unavailab le Encounter Details Date Type Department Care Team (Latest Contact Info) Description 06/26/2025 Travel Social History Tobacco Use Types Packs/Day Years [...] often do you attend chur ch or denominational services? More than 4 times per year 11/11/2022 Do you belong to any clubs o r organizations such as judaism groups, unions, fraternal or athletic groups, or [...] No 01/11/2025 Housing Stability Vital Sign Answer Hectro e Recorded In the last 12 months, [...] ONCOLOGY PRACTICE [address], 10th [place] [address] Rachel Pagan MD [address] [place] [address] 08/28/2025 1:00 PM EDT Office Visit [facility] [address], 6th [place] [address] Yazan Castro DPM [address] [place] [address] 08/29/2025 10:30 AM EDT Appointment [facility] ONCOL[facility]Y [address], 11th [place] [address] 09/06/2025 1:45 PM EDT Appointment [facility] ULTRASOUND [address], 2nd [place] [address] 09/12/2025 9:30 AM EDT Appointment [facility] MRI BLDG D [address], [place] [address] 09/28/2025 9:30 AM EST Office Visit [facility] CARDIOLOGY PRACTICE [address], 1st Floor [place] [phone] Ky Jewell MD [facility] [address] [place] [phone] 11/05/2025 2:45 PM EST Office Visit [facility] NEUROLOGY PRACTICE [address], 8th Floor Clinic [place] [phone] Ruddy Mayes MD [facility] [place] [address] 12/31/2025 11:30 AM EST Office Visit [facility] NEPHROLOGY PRACTICE [address] [place] [address] 01/22/2026 9:00 AM EDT Office Visit [facility] [address], 1st Floor [place] [phone] Allyn Toribio NP [address] [place], [place] [phone] documented as of this encounter Goals Goal Patient Goal Type Associated Problems Recent Progress Patient-Stated? Author Patient's support system will participate in treatment General No Emily Dong documented as of this encounter Visit Diagnoses Not on filedocumented in this encounter Additional Health Concerns Assessment Noted Time PHQ-9 Depression Total Score: 0 06/23/20 10:00 AM EDT documented as of this encounter Care Teams Counselor Marriage And Family Relationship Specialty Start Date End Date Lizandro Khan NP [address] [place] [address] PCP - General Family Medicine 03/20/25 07/22/25 Rachel Pagan MD [address] [place] [address] [place] [address] Consulting Physician Oncology 11/11/22 Pati Rucker APRN [address] [place] [address] Nurse Practitioner Oncology 12/21/22 Sosa Gardner APRN [address] [place] [address] Nurse Practitioner Oncology 06/24/23 Linda Elizabeth DO [address] [place] [address] Consulting Physician Oncology 03/01/25 Elsa Vazquez [address] [place] [address] Nurse Navigator Oncology 06/05/25 07/19/25 Angie Murray, ROLDAN [address] [place] [address] Nurse Navigator Oncology 06/26/25 documented as of this encounter
--- OUTSIDE RECORDS SUMMARY | 2025-08-22 02:44 | XMS_ITS | Encounter Summary ---
Author Organization [facility] nter Address [address] [place] [address] Care Team Providers Care Certified Physical Therapist Assistant Name Role Phone Rachel Pagan MD Unavailable Pati Rucker EAP SPECIALIST Unavailable [phone] Sosa Gardner EAP SPECIALIST Unavailable [phone] Linda Elizabeth DO Unavailable Lizandro Khan NP Primary Care Provider Elsa Vazquez Unavailable Unavailable Angie Murray RN Unavailable Unavailab le Encounter Details Date Type Department Care Team (Late st Contact Info) Description 06/26/2025 Patient Outreach [facility] ONCOLOGY PRACTICE [address], 10th [place] [address] Rachel Pagan MD [address] [place] [address] Social History Tobacco Use Types Packs/Day Years [...] week 11/11/2022 How often do you attend [facility] or hindu services? More than 4 times per year 11/11/2022 Do you belong to any clubs o r organizations such as adventism groups, unions, fraternal or athletic groups, or [...] things needed for daily living? No 06/23/2025 [facility] Utilities Answer Date Recorded In the past 12 months has th e [employer], gas, oil, or water [employer] threatened to shut off services in your [...] documented in this encounter Progress Notes * Angie Murray RN - 06/26/2025 1:47 PM EDT Spoke with Preston at Dr. Cabrera's office at [facility]. He stated that Dr. Cabrera did not needto follow up with the patient in office, but he had placed an order for brain MRI yesterday. It hasnot been scheduled yet. documented in this encounter Plan of Treatment Upcoming Encounters Date Type Department Care Team (Late st Contact Info) Description 08/27/2025 8:45 AM EDT Office Visit [facility] ONCOLOGY PRACTICE [address], 10th [place] [address] Rachel Pagan MD [address] [place] [address] 08/28/2025 1:00 PM EDT Office Visit [facility]ODIATRY PRACTICE [address], 6th [place] [address] Yazan Castro DPM [address] [facility] [place] [address] 08/29/2025 10:30 AM EDT Appointment [facility] MEDICAL ONCOLOGY [address], 11th [place] [address] 09/06/2025 1:45 PM EDT Appointment [facility] ULTRASOUND [address], 2nd [place] [address] 09/12/2025 9:30 AM EDT Appointment [facility] MRI BLDG D [address], [facility] D [place] [phone] 09/28/2025 9:30 AM EST Office Visit [facility] CARDIOLOGY PRACTICE [address], 1st [place] [phone] Ky Jewell MD [address] [place] [address] 11/05/2025 2:45 PM EST Office Visit [facility] NEUROLOGY PRACTICE [address], 8th [place] [address] Ruddy Mayes MD [address] [place] [address] 12/31/2025 11:30 AM EST Office Visit [facility] NEPHROLOGY PRACTICE [address] [place] [phone] 01/22/2026 9:00 AM EDT Office Visit [facility] CARDIOLOGY PRACTICE [address], 1st [place] [address] Allyn Toribio NP [address] [place] [address] documented as of this encounter Goals Goal Patient Goal Type Associated Problems Recent Progress Patient-Stated? Author Patient's support system will participate in treatment General No Emily Dong documented as of this encounter Visit Diagnoses Not on filedocumented in this encounter Additional Health Concerns Assessment Noted Time PHQ-9 Depression Total Score: 0 06/23/20 10:00 AM EDT documented as of this encounter Care Teams Certified Physical Therapist Assistant Relationship Specialty Start Date End Date Lizandro Khan NP [address] [place] [address] PCP - General Family Medicine 03/20/25 07/22/25 Rachel Pagan MD [address] [place] [address] Consulting Physician Oncology 11/11/22 Pati Rucker APRN [address] [place] [address] Nurse Practitioner Oncology 12/21/22 Sosa Gardner APRN [address] [place] [address] Nurse Practitioner Oncology 06/24/23 Linda Elizabeth DO [address] [place] [address] Consulting Physician Oncology 03/01/25 Elsa Vazquez [address] [place] [address] Nurse Navigator Oncology 06/05/25 07/19/25 Angie Murray, ROLDAN [address] [place] [address] Nurse Navigator Oncology 06/26/25 documented as of this encounter
--- OUTSIDE RECORDS SUMMARY | 2025-08-22 02:45 | XMS_ITS | Encounter Summary ---
Author Organization [facility] nter Address [address] [place] [address] Care Team Providers Care Staff Analyst Name Role Phone Rachel Pagan MD Unavailable [phone] Pati Rucker INFRASTRUCTURE SOLUTIONS ARCHITECT Unavailable [phone] Sosa Gardner INFRASTRUCTURE SOLUTIONS ARCHITECT Unavailable [phone] Linda Elizabeth DO Unavailable Lizandro Khan NP Primary Care Provider Elsa Vazquez Unavailable Unavailable Encounter Details Date Type Department Care Team (Late st Contact Info) Description 06/25/2025 Telephone [facility] ONCOLOGY PRACTICE [address], 10th [place] [address] Rachel Pagan MD [address] [place] [place] [address] Social History Tobacco Use Types [...] any clubs o r organizations such as holiness groups, unions, fraternal or athletic groups, or [...] place to sleep or slept in a skilled nursing (including now)? No 11/11/2022 AUDIT-C Answer Date [...] things needed for daily living? No 06/23/2025 [facility] Utilities Answer Date Recorded In the past [...] Demetri Moser RN documented in this encounter Miscellaneous Notes * Telephone Encounter - Zamzam Gill - 06/25/2025 1:55 PM EDT Call #1 Jose, jaycee answer. Called Em and asked to relay message that her CT/Pet scan has beenscheduled. Sending out an appointment reminder. documented in this encounter Plan of Treatment Upcoming Encounters Date Type Department Care Team (Late st Contact Info) Description 08/27/2025 8:45 AM EDT Office Visit [facility] [address], 10th [place] [address] Rachel Pagan MD [address] [place] [address] 08/28/2025 1:00 PM EDT Office Visit [facility] [address], 6th [place] [address] Yazan Castro DPM [address] [facility] [place] [address] 08/29/2025 10:30 AM EDT Appointment [facility] [address], 11th Floor [place] [phone] 09/06/2025 1:45 PM EDT Appointment [facility] ULTRASOUND [address], 2nd Floor [place] [phone] 09/12/2025 9:30 AM EDT Appointment [facility] MRI BLDG D [address], [place] [address] 09/28/2025 9:30 AM EST Office Visit [facility] CARDIOLOGY PRACTICE [address], 1st [place] [address] Ky Jewell MD [address] [facility] [place] [address] 11/05/2025 2:45 PM EST Office Visit [facility] NEUROLOGY PRACT[facility] [address], 8th [place] [address] Ruddy Mayes MD [address] [facility] [place] [address] 12/31/2025 11:30 AM EST Office Visit [facility] NE[facility]ROLOGY [facility] [address] [place] [phone] 01/22/2026 9:00 AM EDT Office Visit [facility]IOLOG[facility] [address], 1st [place] [address] Allyn Toribio NP [address] [place] [phone] documented as of this encounter Goals Goal Patient Goal Type Associated Problems Recent Progress Patient-Stated? Author Patient's support system will participate in treatment General No Frantom, Emily A documented as of this encounter Visit Diagnoses Not on filedocumented in this encounter Additional Health Concerns Assessment Noted Time PHQ-9 Depression Total Score: 0 06/23/20 25 10:00 AM EDT documented as of this encounter Care Teams Staff Analyst Relationship Specialty Start Date End Date Lizandro Khan NP [address] [place] [address] PCP - General Family Medicine 03/20/25 07/22/25 Rachel Pagan MD [address] [place] [address] Consulting Physician Oncology 11/11/22 Pati Rucker APRN [address] [place] [address] Nurse Practitioner Oncology 12/21/22 Sosa Gardner APRN [address]ld[address] [place] [address] Nurse Practitioner Oncology 06/24/23 Linda Elizabeth DO [address] [place], [place] [address] Consulting Physician Oncology 03/01/25 Elsa Vazquez [address] [place] [address] Nurse Navigator Oncology 06/05/25 07/19/25 documented as of this encounter
--- OUTSIDE RECORDS SUMMARY | 2025-08-22 02:47 | XMS_ITS | Encounter Summary ---
Author Organization [facility] nter Address [address] [place] [address] Care Team Providers Care Paraprofessional Aide Name Role Phone Rachel Pagan MD Unavailable [phone] Pati Rucker FASHION ILLUSTRATOR Unavailable [phone] Sosa Gardner FASHION ILLUSTRATOR Unavailable [phone] Linda Elizabeth DO Unavailable Lizandro Khan TECHNICAL TRAINING MANAGER Primary Care Provider [phone] Elsa Vazquez Unavailable Unavailable Angie Murray RN Unavailable Unavailab Lizandro Islas TECHNICAL TRAINING MANAGER Primary Care Provider [phone] Encounter Details Date Type Department Care Team (Late st Contact Info) Description 06/28/2025 Patient Outreach [facility] ONCOLOGY PRACTICE [address], 10th [place] [address] Rachel Pagan MD [address] [place] [address] Social History Tobacco Use Types [...] week 11/11/2022 How often do you attend [facility] or amish services? More than 4 times per year [...] things needed for daily living? No 06/23/2025 [facility] Utilities Answer Date Recorded [...] PRACTICE [address], 10th [place] [address] Rachel Pagan MD [address] [place] [address] 08/28/2025 1:00 PM EDT Office Visit [facility] ORTHOPEDIC PODIATRY PRACTICE [address], 6th [place] [address] Yazan Castro DPM [address] [place] [address] 08/29/2025 10:30 AM EDT Appointment [facility] MEDICAL ONCOLOGY [address], 11th Floor Clinic [place] [phone] 09/06/2025 1:45 PM EDT Appointment [facility] ULTRASOUND [address], 2nd Floor [place] [phone] 09/12/2025 9:30 AM EDT Appointment [facility] MRI BLDG D [address], [place] [address] 09/28/2025 9:30 AM EST Office Visit [facility] CARDIOLOGY PRACTICE [address], 1st [place] [address] Ky Jewell MD [facility] [address] [place] [phone] 11/05/2025 2:45 PM EST Office Visit [facility] NEUROLOGY PRACTICE [address], 8th [place] [address] Ruddy Mayes MD [facility] [address] Bld[address] [place] [phone] 12/31/2025 11:30 AM EST Office Visit [facility] NEPHROLOGY PRACTICE [address] [place] [address] 01/22/2026 9:00 AM EDT Office Visit [facility] CARDIOLOGY PRACTICE [address], 1st [place] [address] Allyn Toribio NP [facility] [place] [address] documented as of this encounter Goals Goal Patient Goal Type Associated Problems Recent Progress Patient-Stated? Author Patient's support system will participate in treatment General Emily Ny documented as of this encounter Visit Diagnoses Not on filedocumented in this encounter Additional Health Concerns Assessment Noted Time PHQ-9 Depression Total Score: 0 06/23/20 25 10:00 AM EDT documented as of this encounter Care Teams Paraprofessional Aide Relationship Specialty Start Date End Date Lizandro Khan NP [address] [place] [address] PCP - General Family Medicine 03/20/25 07/22/25 Lizandro Khan NP [address] [place] [address] PCP - General Family Medicine 07/23/25 Rachel Pagan MD [address] [place] [address] Consulting Physician Oncology 11/11/22 Pati Rucker APRN [address] [place], [place] [address] Nurse Practitioner Oncology 12/21/22 Sosa Gardner APRN [address] [place], [place] [address] Nurse Practitioner Oncology 06/24/23 Linda Elizabeth DO [address] [place], [place] [address] Consulting Physician Oncology 03/01/25 Elsa Vazquez [address] [place] [address] Nurse Navigator Oncology 06/05/25 07/19/25 Angie Murray, ROLDAN [address] [place] [address] Nurse Navigator Oncology 06/26/25 documented as of this encounter
--- OUTSIDE RECORDS SUMMARY | 2025-08-22 02:48 | XMS_ITS | Encounter Summary ---
Author Organization [facility] nter Address [address] [place] [address] Care Team Providers Care Bagel Maker Name Role Phone Rachel Pagan MD Unavailable [phone] Pati Rucker SHRUB GROWER Unavailable [phone] Sosa Gardner SHRUB GROWER Unavailable [phone] Linda Elizabeth DO Unavailable Lizandro Khan NP Primary Care Provider Angie Murray RN Unavailable Unavailab le Encounter Details Date Type Department Care Team (Latest Contact Info) Description 07/20/2025 Travel Social History Tobacco Use Types Packs/Day [...] often do you attend chur ch or holiness services? More than 4 times per year 11/11/2022 Do you belong to any clubs o r organizations such as cheondoism groups, unions, fraternal or athletic groups, or [...] to sleep or slept in a senior care (including now)? No 11/11/2022 AUDIT-C Answer Date [...] needed for daily living? No 06/23/2025 [facility] Utilities Answer Date Recorded In the [...] 3:29 PM EST Demetri Mota RN * Do you have serious difficulty walking or climbing stairs? Answer Date of Assessment Author No 10/27/2022 3:29 PM EST Demetri Mota RN * Do you have serious difficulty [...] Description 08/27/2025 8:45 AM EDT Office Visit [facility] ONCOLOGY PRACTICE [address], 10th [place] [address] Rachel Pagan MD [address] [place] [address] 08/28/2025 1:00 PM EDT Office Visit [facility] ORTHOPEDIC PODIATRY PRACTICE [address], 6th [place] [address] Yazan Casrto DPM [address] [place] [address] 08/29/2025 10:30 AM EDT Appointment [facility] MEDICAL ONCOLOGY [address], 11th [place] [address] 09/06/2025 1:45 PM EDT Appointment [facility] ULTRASOUND [address], 2nd [place] [address] 09/12/2025 9:30 AM EDT Appointment [facility] MRI BLDG D [address], [place] [address] 09/28/2025 9:30 AM EST Office Visit [facility] CARDIOLOGY PRACTICE [address], 1st [place] [address] Ky Jewell MD [address] [facility] [place] [phone] 11/05/2025 2:45 PM EST Office Visit [facility] NEUROLOGY PRACTICE [address], 8th [place] [address] Ruddy Mayes MD [address] [place] [address] Road [facility] [place] [address] 12/31/2025 11:30 AM EST Office Visit [facility] NEPHROLOGY PRACTICE [address] [place] [address] 01/22/2026 9:00 AM EDT Office Visit [facility] CARDIOLOGY PRACTICE [address], 1st [place] [address] Allyn Toribio NP [address] [place], [place] [phone] documented as of this encounter Goals Goal Patient Goal Type Associated Problems Recent Progress Patient-Stated? Author Patient's support system will participate in treatment General Emily Ny documented as of this encounter Visit Diagnoses Not on filedocumented in this encounter Additional Health Concerns Assessment Noted Time PHQ-9 Depression Total Score: 0 06/23/20 10:00 AM EDT documented as of this encounter Care Teams Bagel Maker Relationship Specialty Start Date End Date Lizandro Khan NP [address] [place] [address] PCP - General Family Medicine 03/20/25 07/22/25 Rachel Pagan MD [address] [place] [address] [place] [address] Consulting Physician Oncology 11/11/22 Pati Rucker APRN [address] [place] [address] Nurse Practitioner Oncology 12/21/22 Sosa Gardner APRN [address] [place] [address] Nurse Practitioner Oncology 06/24/23 Linda Elizabeth DO [address] [place] [address] Consulting Physician Oncology 03/01/25 Angie Murray, ROLDAN [address] [place] [address] Nurse Navigator Oncology 06/26/25 documented as of this encounter
[2025-08-22] MEDS: ACETAMINOPHEN 1,000MG/100ML VIAL 1000 MG IV (02:51)
[2025-08-22] MEDS: MORPHINE 4MG/ML SYRINGE 4 MG IV (02:51)
--- OUTSIDE RECORDS SUMMARY | 2025-08-22 02:51 | XMS_ITS | Encounter Summary ---
Author Organization [facility] nter Address [address] [place] [address] Care Team Providers Care Wine Specialist Name Role Phone Rachel Pagan MD Unavailable [phone] Pati Rucker CNC GRINDER Unavailable [phone] Sosa Gardner CNC GRINDER Unavailable [phone] Linda Elizabteh DO Unavailable Angie Murray RN Unavailable Unavailab Lizandro Islas NP Primary Care Provider [phone] Encounter Details Date Type Department Care Team (Latest Contact Info) Description 07/30/2025 Travel Social History Tobacco Use Types Packs/Day [...] often do you attend chur ch or temple services? More than 4 times per year 11/11/2022 Do you belong to any clubs o r organizations such as jewish groups, unions, fraternal or athletic groups, or [...] in a residential (including now)? No 11/11/2022 AUDIT-C Answer Date [...] things needed for daily living? No 06/23/2025 [facility] Utilities Answer Date Recorded In [...] Description 08/27/2025 8:45 AM EDT Office Visit [facility] [address] 10th [place] [address] Rachel Pagan MD [address] [place] [address] 08/28/2025 1:00 PM EDT Office Visit [facility]RY [facility]ACT[facility] [address], 6th [place] [address] Yazan Castro DPM [address] [place] [address] 08/29/2025 10:30 AM EDT Appointment [facility] MEDICAL ONCOLOGY [address], 11th [place] [address] 09/06/2025 1:45 PM EDT Appointment [facility] ULTRASOUND [address], 2nd [place] [address] 09/12/2025 9:30 AM EDT Appointment [facility] MRI BLDG D [address], [place] [address] 09/28/2025 9:30 AM EST Office Visit [facility] [address], 1st [place] [address] Ky Jewell MD [address] [place] [phone] 11/05/2025 2:45 PM EST Office Visit [facility] [address], 8th [place] [address] Ruddy Mayes MD [address] [place] [address] [place] [address] 12/31/2025 11:30 AM EST Office Visit [facility] [address] [place] [address] 01/22/2026 9:00 AM EDT Office Visit [facility] [address], 1st [place] [address] Allyn Toribio NP [address] [place], [place] [phone] documented as of this encounter Goals Goal Patient Goal Type Associated Problems Recent Progress Patient-Stated? Author Patient's support system will participate in treatment General Emily Ny documented as of this encounter Visit Diagnoses Not on filedocumented in this encounter Additional Health Concerns Assessment Noted Time PHQ-9 Depression Total Score: 0 06/23/20 10:00 AM EDT documented as of this encounter Care Teams Wine Specialist Relationship Specialty Start Date End Date Lizandro Khan NP [address] [place] [address] PCP - General Family Medicine 07/23/25 Rachel Pagan MD [address] [place] [address] Consulting Physician Oncology 11/11/22 Pati Rucker APRN [address] [place] [phone] Nurse Practitioner Oncology 12/21/22 Sosa Gardner APRN [address] [place] [phone] Nurse Practitioner Oncology 06/24/23 Linda Elizabeth DO [address] [place] [address] Consulting Physician Oncology 03/01/25 Angie Murray, ROLDAN [address] [place] [address] Nurse Navigator Oncology 06/26/25 documented as of this encounter
--- OUTSIDE RECORDS SUMMARY | 2025-08-22 02:52 | XMS_ITS | Encounter Summary ---
Author Organization [facility] Address [address] [place] [address] Care Team Providers Care Director Of Agronomy Name Role Phone Italo Camejo APRN Primary Care Provider [phone] Encounter Details Date Type Department Care Team (Latest Contact Info) Description 07/26/2025 Travel Social History Tobacco Use Types Packs/Day [...] on file documented as of this encounter Plan of Treatment Not on [...] documented as of this encounter Care Teams Director Of Agronomy Relationship Specialty Start Date End Date Italo Camejo APRN [address] [place] [address] PCP - General 11/18/23 documented as of this encounter
--- OUTSIDE RECORDS SUMMARY | 2025-08-22 02:52 | XMS_ITS | Encounter Summary ---
Author Organization [facility] Address [address] [address] Care Team Providers Care Auto Servicer Name Role Phone Itaol Camejo VICKY Primary Care Provider [phone] Encounter Details Date Type Department Care Team ([facility] st Contact Info) Description 07/12/2025 Results Follow-Up [facility] [address] [place] [phone] Prabhjot Vee, PharmD [address] [place], [place] [phone] Social History Tobacco Use Types Packs/Day Years [...] on file documented as of this encounter Miscellaneous Notes * Result Encounter Note - Prabhjot Vee, PharmD - 07/12/2025 11:33 AM EDT Patient was discharged with prescription for cefadroxil. Antibiotic was not prescribed may not adequately cover the organism resulted. Contacted patient to relay results and discuss therapy change. New prescription for sulfamethoxazole- trimethoprim called into patient's pharmacy of choice ([facility] - [place], [place]). Patient expressed understanding and all questions answered. documented in this encounter Plan of Treatment [...] documented as of this encounter Care Teams Auto Servicer Relationship Specialty Start Date End Date Italo Camejo APRN [address] [place] [address] PCP - General 11/18/23 documented as of this encounter
--- OUTSIDE RECORDS SUMMARY | 2025-08-22 02:52 | XMS_ITS | Encounter Summary ---
Author Organization [facility] nter Address [address] [place] [address] Care Team Providers Care Gas Roller Operator Name Role Phone Rachel Pagan MD Unavailable Pati Rucker CLINICAL SERVICES CONSULTANT Unavailable [phone] Sosa Gardner CLINICAL SERVICES CONSULTANT Unavailable [phone] Linda Elizabeth DO Unavailable Lizandro Khan NP Primary Care Provider Elsa Vazquez Unavailable Unavailable Angie Murray RN Unavailable Unavailab le Encounter Details Date Type Department Care Team (Late st Contact Info) Description 07/02/2025 Patient Outreach [facility] [address], 10th [place] [address] Rachel Pagan MD [address] [place] [address] Social History Tobacco Use Types [...] week 11/11/2022 How often do you attend [facility] or bahai services? More than 4 times per year 11/11/2022 Do you belong to any clubs o r organizations such as methodist groups, unions, fraternal or athletic groups, or [...] health care facility (including now)? No 11/11/2022 AUDIT-C Answer Date [...] things needed for daily living? No 06/23/2025 [facility] Utilities Answer Date Recorded In the past 12 months has th e [employer], gas, oil, or water [employer] threatened to shut off services in your [...] Progress Notes * Angie Murray RN - 07/02/2025 3:[address] Cabrera's office to check on MRI PA. They are unable to verify PA authorization and stated they will call me back. documented in this encounter Plan of Treatment Upcoming Encounters Date Type Department Care Team (Late st Contact Info) Description 08/27/2025 8:45 AM EDT Office Visit [facility] [address], 10th [place] [address] Rachel Pagan MD [address] [facility] [place] [address] 08/28/2025 1:00 PM EDT Office Visit [facility]RY PR[facility] [address], 6th [place] [address] Yazan Catsro DPM [address] [facility] [place] [address] 08/29/2025 10:30 AM EDT Appointment [facility] MEDICAL ONCOLOGY [address], 11th Floor [place] [phone] 09/06/2025 1:45 PM EDT Appointment [facility] ULTRASOUND [address], 2nd Floor [place] [phone] 09/12/2025 9:30 AM EDT Appointment [facility] MRI BLDG D [address], [place] [address] 09/28/2025 9:30 AM EST Office Visit [facility]IOLOGY PRACT[facility] [address], 1st Floor [facility] [place] [address] Ky Jewell MD [address] [facility] [place] [phone] 11/05/2025 2:45 PM EST Office Visit [facility] NEUR[facility]ACT[facility] [address], 8th [place] [address] Ruddy Mayes MD [facility] [address] [facility] [place] [address] 12/31/2025 11:30 AM EST Office Visit [facility] [address] [phone] 01/22/2026 9:00 AM EDT Office Visit [facility]ACT[facility] [address], 1st Floor [facility] [place] [address] Allyn Toribio NP [address] [place] [phone] documented as of this encounter Goals Goal Patient Goal Type Associated Problems Recent Progress Patient-Stated? Author Patient's support system will participate in treatment General Emily Ny documented as of this encounter Visit Diagnoses Not on filedocumented in this encounter Additional Health Concerns Assessment Noted Time PHQ-9 Depression Total Score: 0 06/23/20 10:00 AM EDT documented as of this encounter Care Teams Gas Roller Operator Relationship Specialty Start Date End Date Lizandro Khan NP [address] [place] [address] PCP - General Family Medicine 03/20/25 07/22/25 Rachel Pagan MD [address] [place] [phone] Consulting Physician Oncology 11/11/22 Pati Rucker APRN [address] [place] [address] Nurse Practitioner Oncology 12/21/22 Sosa Gardner APRN [address] [place] [phone] Nurse Practitioner Oncology 06/24/23 Linda Elizabeth DO [address] [place] [address] Consulting Physician Oncology 03/01/25 Elsa Vazquez [address] [place] [address] Nurse Navigator Oncology 06/05/25 07/19/25 Angie Murray, ROLDAN [address] [place] [address] Nurse Navigator Oncology 06/26/25 documented as of this encounter
--- OUTSIDE RECORDS SUMMARY | 2025-08-22 02:52 | XMS_ITS | Encounter Summary ---
Author Organization [facility] nter Address [address] [address] Care Team Providers Care Fruit Loader Machine Operator Name Role Phone Rachel Pagan MD Unavailable [phone] Pati Rucker SOLAR PHOTOVOLTAIC INSTALLER Unavailable [phone] Sosa Gardner SOLAR PHOTOVOLTAIC INSTALLER Unavailable [phone] Linda Elizabeth DO Unavailable Angie Murray RN Unavailable Unavailab Lizandro Islas NP Primary Care Provider [phone] Encounter Details Date Type Department Care Team (Latest Contact Info) Description 07/23/2025 Travel Social History Tobacco Use Types Packs/Day [...] often do you attend chur ch or yarsanism services? More than 4 times per year 11/11/2022 Do you belong to any clubs o r organizations such as synagogue groups, unions, fraternal or athletic groups, or [...] things needed for daily living? No 06/23/2025 [facility] Utilities Answer Date Recorded In the past [...] ONCOLOGY PRACTICE [address], 10th [place] [address] Rachel Pagan MD [address] [place] [address] 08/28/2025 1:00 PM EDT Office Visit [facility]OPEDIC PODI[facility]RY PRACT[facility] [address], 6th [place] [address] Yazan Castro DPM [address] [place] [address] 08/29/2025 10:30 AM EDT Appointment [facility] MEDICAL ONCOLOGY [address], 11th [place] [address] 09/06/2025 1:45 PM EDT Appointment [facility] ULTRASOUND [address], 2nd [place] [address] 09/12/2025 9:30 AM EDT Appointment [facility] MRI BLDG D [address], [place] [address] 09/28/2025 9:30 AM EST Office Visit [facility] CARDIOLOGY PRACTICE [address], 1st [place] [address] Ky Jewell MD [address] [place] [phone] 11/05/2025 2:45 PM EST Office Visit [facility] NEUROLOGY PRACTICE [address], 8th [place] [address] Ruddy Mayes MD [address] [place] [address] [place] [address] 12/31/2025 11:30 AM EST Office Visit [facility] NEPHROLOGY PRACTICE [address] [place] [address] 01/22/2026 9:00 AM EDT Office Visit [facility]ARDIOLOG[facility] PRACT[facility] [address], 1st [place] [address] Allyn Toribio NP [address] [place], [place] [phone] documented as of this encounter Goals Goal Patient Goal Type Associated Problems Recent Progress Patient-Stated? Author Patient's support system will participate in treatment General Emily Ny documented as of this encounter Visit Diagnoses Not on filedocumented in this encounter Additional Health Concerns Assessment Noted Time PHQ-9 Depression Total Score: 0 06/23/20 10:00 AM EDT documented as of this encounter Care Teams Fruit Loader Machine Operator Relationship Specialty Start Date End Date Lizandro Khan NP [address] [place] [address] PCP - General Family Medicine 07/23/25 Rachel Pagan MD [address] [place] [address] Consulting Physician Oncology 11/11/22 Pati Rucker APRN [address] [place] [phone] Nurse Practitioner Oncology 12/21/22 Sosa Gardner APRN [address] [place] [phone] Nurse Practitioner Oncology 06/24/23 Linda Elizabeth DO [address] [place] [address] Consulting Physician Oncology 03/01/25 Angie Murray, ROLDAN [address] [place] [address] Nurse Navigator Oncology 06/26/25 documented as of this encounter
--- OUTSIDE RECORDS SUMMARY | 2025-08-22 02:52 | XMS_ITS | Encounter Summary ---
Author Organization [facility] Address [address] [place] [address] Care Team Providers Care Security System Installer Name Role Phone Italo Camejo VICKY Primary Care Provider [phone] Encounter Details Date Type Department Care Team (Latest Contact Info) Description 07/09/2025 Travel Social History Tobacco Use Types Packs/Day [...] on file documented as of this encounter Functional Status * Calculated C-SSRS Risk Score (Lifetime/Recent) Answer Date of Assessment Author No Risk Indicated 07/09/2025 6:43 PM EDT Yared Oconnor RN * Question Answer Date of Assessment Author 1. Wish to be (Past 1 Month) No 025 6:43 PM EDT Edelmira Oconnor RN 2. Non-Specific Active Suici allan Thoughts (Past 1 Month) No 07/09/2025 6:43 PM EDT Edelmira Oconnor RN 6. Suicidal Behavior (Lifetime) No 6:43 PM EDT Edelmira Oconnor RN documented as of this encounter Plan of [...] documented as of this encounter Care Teams Security System Installer Relationship Specialty Start Date End Date Italo Camejo APRN [address] [place] [address] PCP - General 11/18/23 documented as of this encounter
--- OUTSIDE RECORDS SUMMARY | 2025-08-22 02:52 | XMS_ITS | Encounter Summary ---
Author Organization [facility] nter Address [address] [address] Care Team Providers Care Faith Doctor Name Role Phone Rachel Pagan MD Unavailable [phone] Pati Rucker AUTO SEAT COVER INSTALLER Unavailable [phone] Sosa Gardner AUTO SEAT COVER INSTALLER Unavailable [phone] Linda Elizabeth DO Unavailable Lizandro Khan NP Primary Care Provider Elsa Vazquez Unavailable Unavailable Angie Murray RN Unavailable Unavailab le Encounter Details Date Type Department Care Team (Latest Contact Info) Description 07/18/2025 Travel Social History Tobacco Use Types Packs/Day [...] often do you attend chur ch or cheondoism services? More than 4 times per year 11/11/2022 Do you belong to any clubs o r organizations such as faith groups, unions, fraternal or athletic groups, or [...] things needed for daily living? No 06/23/2025 [facility] Utilities Answer Date Recorded In the [...] ONCOLOGY PRACTICE [address], 10th [place] [address] Rachel Pagan MD [address] [place] [address] 08/28/2025 1:00 PM EDT Office Visit [facility]ODI[facility]RY PRACTICE [address], 6th [place] [address] Yazan Castro DPM [address] [place] [address] 08/29/2025 10:30 AM EDT Appointment [facility] MEDICAL ONCOLOGY [address], 11th [place] [address] 09/06/2025 1:45 PM EDT Appointment [facility] ULTRASOUND [address], 2nd [place] [address] 09/12/2025 9:30 AM EDT Appointment [facility] MRI BLDG D [address], [place] [address] 09/28/2025 9:30 AM EST Office Visit [facility] CARDIOLOG[facility] PRACTICE [address], 1st Floor [place] [phone] Ky Jewell MD [facility] [address] [place] [phone] 11/05/2025 2:45 PM EST Office Visit [facility] NEUROLOGY PRACTICE [address], 8th Floor Clinic [place] [phone] Ruddy Mayes MD [facility] [place] [address] 12/31/2025 11:30 AM EST Office Visit [facility] NEPHROLOGY PRACTICE [address] [place] [address] 01/22/2026 9:00 AM EDT Office Visit [facility] PRACTICE [address], 1st Floor [place] [phone] Allyn Toribio NP [address] [place], [place] [phone] documented as of this encounter Goals Goal Patient Goal Type Associated Problems Recent Progress Patient-Stated? Author Patient's support system will participate in treatment General No Emily Dong documented as of this encounter Visit Diagnoses Not on filedocumented in this encounter Additional Health Concerns Assessment Noted Time PHQ-9 Depression Total Score: 0 06/23/20 10:00 AM EDT documented as of this encounter Care Teams Faith Doctor Relationship Specialty Start Date End Date Lizandro Khan NP [address] [place] [address] PCP - General Family Medicine 03/20/25 07/22/25 Rachel Pagan MD [address] [place] [address] [place] [address] Consulting Physician Oncology 11/11/22 Pati Rucker APRN [address] [place] [phone] Nurse Practitioner Oncology 12/21/22 Sosa Gardner APRN [address] [place] [address] Nurse Practitioner Oncology 06/24/23 Linda Elizabeth DO [address] [place] [address] Consulting Physician Oncology 03/01/25 Elsa Vazquez [address] [place] [address] Nurse Navigator Oncology 06/05/25 07/19/25 Angie Murray, ROLDAN [address] [place] [address] Nurse Navigator Oncology 06/26/25 documented as of this encounter
--- OUTSIDE RECORDS SUMMARY | 2025-08-22 02:52 | XMS_ITS | Encounter Summary ---
Author Organization [facility] nter Address [address] [address] Care Team Providers Care Marketing Financial Analyst Name Role Phone Rachel Pagan MD Unavailable [phone] Pati Rucker LAB TESTER Unavailable [phone] Sosa Gardner LAB TESTER Unavailable [phone] Linda Elizabeth DO Unavailable Lizandro Khan NP Primary Care Provider Elsa Vazquez Unavailable Unavailable Angie Murray RN Unavailable Unavailab le Encounter Details Date Type Department Care Team (Latest Contact Info) Description 06/28/2025 Travel Social History Tobacco Use Types Packs/Day [...] often do you attend chur ch or shinto services? More than 4 times per year 11/11/2022 Do you belong to any clubs o r organizations such as anabaptism groups, unions, fraternal or athletic groups, or [...] things needed for daily living? No 06/23/2025 [facility] Utilities Answer Date Recorded In the [...] Description 08/27/2025 8:45 AM EDT Office Visit [facility]ACT[facility] [address], 10th [place] [address] Rachel Pagan MD [address] [place] [address] 08/28/2025 1:00 PM EDT Office Visit [facility]IC [facility]ODI[facility]RY PRACT[facility] [address], 6th [place] [address] Yazan Castro DPM [address] [place] [address] 08/29/2025 10:30 AM EDT Appointment [facility] MEDICAL ONCOLOGY [address], 11th [place] [address] 09/06/2025 1:45 PM EDT Appointment [facility] ULTRASOUND [address], 2nd [place] [address] 09/12/2025 9:30 AM EDT Appointment [facility] MRI BLDG D [address], [place] [address] 09/28/2025 9:30 AM EST Office Visit [facility] CARDIOLOGY PRACTICE [address], 1st Floor [place] [phone] Ky Jewell MD [facility] [address] [place] [phone] 11/05/2025 2:45 PM EST Office Visit [facility] NEUROLOGY PRACTICE [address], 8th Floor Clinic [place] [phone] Ruddy Mayes MD [facility] [place] [address] 12/31/2025 11:30 AM EST Office Visit [facility] NEPHROLOGY PRACTICE [address] [place] [address] 01/22/2026 9:00 AM EDT Office Visit [facility]ACT[facility] [address], 1st Floor [place] [phone] Allyn Toribio NP [address] [place], [place] [phone] documented as of this encounter Goals Goal Patient Goal Type Associated Problems Recent Progress Patient-Stated? Author Patient's support system will participate in treatment General No Emily Dong documented as of this encounter Visit Diagnoses Not on filedocumented in this encounter Additional Health Concerns Assessment Noted Time PHQ-9 Depression Total Score: 0 06/23/20 10:00 AM EDT documented as of this encounter Care Teams Marketing Financial Analyst Relationship Specialty Start Date End Date Lizandro Khan NP [address] [place] [address] PCP - General Family Medicine 03/20/25 07/22/25 Rachel Pagan MD [address] [place] [address] [place] [address] Consulting Physician Oncology 11/11/22 Pati Rucker APRN [address] [place] [phone] Nurse Practitioner Oncology 12/21/22 Sosa Gardner APRN [address] [place] [address] Nurse Practitioner Oncology 06/24/23 Linda Elizabeth DO [address] [place] [address] Consulting Physician Oncology 03/01/25 Elsa Vazquez [address] [place] [address] Nurse Navigator Oncology 06/05/25 07/19/25 Angie Murray, ROLDAN [address] [place] [address] Nurse Navigator Oncology 06/26/25 documented as of this encounter
--- OUTSIDE RECORDS SUMMARY | 2025-08-22 02:53 | XMS_ITS | Encounter Summary ---
Author Organization [facility] nter Address [address] [place] [address] Care Team Providers Care Storekeeper Engineering Name Role Phone Rachel Pagan MD Unavailable [phone] Pati Rucker CAKE TESTER Unavailable [phone] Sosa Gardner CAKE TESTER Unavailable [phone] Linda Elizabeth DO Unavailable Angie Murray RN Unavailable Unavailab Lizandro Islas NP Primary Care Provider [phone] Encounter Details Date Type Department Care Team (Latest Contact Info) Description 08/08/2025 Travel Social History Tobacco Use Types Packs/Day [...] often do you attend chur ch or moravian services? More than 4 times per year [...] things needed for daily living? No 06/23/2025 [facility] Utilities Answer Date Recorded In the [...] ONCOLOGY PRACTICE [address]th [place] [address] Rachel Pagan MD [address] [place] [address] 08/28/2025 1:00 PM EDT Office Visit [facility] ORTHOPEDIC PODIATRY PRACTICE [address]th [place] [address] Yazan Castro DPM [address] [place] [address] 08/29/2025 10:30 AM EDT Appointment [facility] MEDICAL ONCOLOGY [address], [address]th [place] [address] 09/06/2025 1:45 PM EDT Appointment [facility] ULTRASOUND [address], 2nd [place] [address] 09/12/2025 9:30 AM EDT Appointment [facility] MRI BLDG D [address], [place] [address] 09/28/2025 9:30 AM EST Office Visit [facility] CARDIOLOGY PRACTICE [address], 1st [place] [address] Ky Jewell MD [address] [place] [id number] 11/05/2025 2:45 PM EST Office Visit [facility] NEUROLOGY PRACTICE [address], 8th [place] [address] Ruddy Mayes MD [address] [place] [address] [place] [address] 12/31/2025 11:30 AM EST Office Visit [facility] NEPHROLOGY PRACTICE [address] [place] [address] 01/22/2026 9:00 AM EDT Office Visit [facility] CARDIOLOGY PRACTICE [address], 1st [place] [address] Allyn Toribio NP [address] [place], [place] [address] documented as of this encounter Goals Goal Patient Goal Type Associated Problems Recent Progress Patient-Stated? Author Patient's support system will participate in treatment General Emily Ny documented as of this encounter Visit Diagnoses Not on filedocumented in this encounter Additional Health Concerns Assessment Noted Time PHQ-9 Depression Total Score: 0 06/23/20 10:00 AM EDT documented as of this encounter Care Teams Storekeeper Engineering Relationship Specialty Start Date End Date Lizandro Khan NP [address] [place] [address] PCP - General Family Medicine 07/23/25 Rachel Pagan MD [address] [place] [address] Consulting Physician Oncology 11/11/22 Pati Rucker APRN [address] [place] [id number] Nurse Practitioner Oncology 12/21/22 Sosa Gardner APRN [address] [place] [id number] Nurse Practitioner Oncology 06/24/23 Linda Elizabeth DO [address] [place] [address] Consulting Physician Oncology 03/01/25 Angie Murray, ROLDAN [address] [place] [address] Nurse Navigator Oncology 06/26/25 documented as of this encounter
--- OUTSIDE RECORDS SUMMARY | 2025-08-22 02:53 | XMS_ITS | Encounter Summary ---
Author Organization [facility] nter Address [address] [place] [address] Care Team Providers Care Certified Wellness Program Coordinator Name Role Phone Rachel Pagan MD Unavailable Pati Rucker METHOD CONSULTANT Unavailable [phone] Sosa Gardner METHOD CONSULTANT Unavailable [phone] Linda Elizabeth DO Unavailable Lizandro Khan NP Primary Care Provider Elsa Vazquez Unavailable Unavailable Angie Murray RN Unavailable Unavailab le Encounter Details Date Type Department Care Team (Late st Contact Info) Description 07/03/2025 Telephone [facility] ONCOLOGY PRACTICE [address] 10th [place] [address] Rachel Pagan MD [address] [place] [address] Social History Tobacco Use Types [...] How often do you attend [facility] or synagogue services? More than 4 times per year 11/11/2022 Do you belong to any clubs o r organizations such as rastafarian groups, unions, fraternal or athletic groups, or [...] place to sleep or slept in a correction (including now)? No 11/11/2022 AUDIT-C Answer Date [...] things needed for daily living? No 06/23/2025 [facility] Utilities Answer Date Recorded In the past 12 months has th e [employer], gas, oil, or water [employer] threatened to shut off services in your [...] Assessment Author No 10/27/2022 3:29 PM EST eDmetri Mota RN * Are you blind or [...] * Telephone Encounter - Zamzam Gill - 07/03/2025 3:34 PM EDT Call answered. Said her daughter will call back once she gets home. Her daughter handles her appointments. Was calling to schedule her MR brain that Dr. Soriano had ordered. documented in this encounter Plan of Treatment Upcoming Encounters Date Type Department Care Team (Late st Contact Info) Description 08/27/2025 8:45 AM EDT Office Visit [facility] ONCOLOGY PRACTICE [address], 10th [place] [address] Rachel Pagan MD [address] [place] [address] 08/28/2025 1:00 PM EDT Office Visit [facility] ORTHOPEDIC PODIATRY PRACTICE [address] 6th [place] [address] Yazan Castro DPM [address] [facility] [place] [address] 08/29/2025 10:30 AM EDT Appointment [facility] MEDICAL ONCOLOGY [address], [address]th [place] [address] 09/06/2025 1:45 PM EDT Appointment [facility] ULTRASOUND [address], [address]nd [place] [address] 09/12/2025 9:30 AM EDT Appointment [facility] MRI BLDG D [address], [facility] [place] [address] 09/28/2025 9:30 AM EST Office Visit [facility] CARDIOLOGY PRACTICE [address] [place] [address] Ky Jewell MD [address] [place] [address] 11/05/2025 2:45 PM EST Office Visit [facility] NEUROLOGY PRACTICE [address], [address]th [place] [address] Ruddy Mayes MD [facility] [place] [address] 12/31/2025 11:30 AM EST Office Visit [facility] NEPHROLOGY PRACTICE [address] [place] [id number] 01/22/2026 9:00 AM EDT Office Visit [facility] CARDIOLOGY PRACTICE [address] 1st [place] [address] Allyn Toribio NP [address] [place] [id number] documented as of this encounter Goals Goal [...] as of this encounter Care Teams Certified Wellness Program Coordinator Relationship Specialty Start Date End Date Lizandro Khan NP [address] [place] [address] PCP - General Family Medicine 03/20/25 07/22/25 Rachel Pagan MD [address] [place] [address] Consulting Physician Oncology 11/11/22 Pati Rucker APRN [address] [place] [address] Nurse Practitioner Oncology 12/21/22 Sosa Gardner APRN [address] [place] [address] Nurse Practitioner Oncology 06/24/23 Linda Elizabeth DO [address] [place], [place] [address] Consulting Physician Oncology 03/01/25 Elsa Vazquez [address] [place] [address] Nurse Navigator Oncology 06/05/25 07/19/25 Angie Murray, ROLDAN [address] [place] [address] Nurse Navigator Oncology 06/26/25 documented as of this encounter
--- OUTSIDE RECORDS SUMMARY | 2025-08-22 02:53 | XMS_ITS | Clinical Summary ---
Author Organization [facility] nter Address [address] [place] [address] Care Team Providers Care Electro 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 Name Role Phone Rachel Pagan MD Unavailable Pati Rucker FEED INSPECTION SUPERVISOR Unavailable [phone] Sosa Gardner FEED INSPECTION SUPERVISOR Unavailable [phone] Linda Elizabeth DO Unavailable Angie Murray RN Unavailable Unavailab Lizandro Islas NP Primary Care Provider Allergies Active Allergy Reactions Criticality Noted Date Comments Cephalexin 10/25/2022 Ciprofloxacin 10/29/2022 Caused c-diff Medications carvedilol (Coreg) 12.5 MG tablet Take 1 tablet (12.5 mg) by mouth with breakfast and with evening meal. Hold for systolic blood pressure less than or equal to 100 mmHg or heart rate less than or equal to 60 bpm 60 tablet 06/22/20 25 Active DULoxetine (Cymbalta) [address] capsule Take 1 capsule (60 mg) by mouth in the morning. 30 capsule 06/22/20 25 Active Additional Information Patient not taking.Reported on 07/30/2025 empagliflozin (Jardiance) 10 MG Take 1 tablet (10 mg) by mouth in the morning. 30 tablet 06/22/20 25 Active Additional Information Patient not taking.Reported on 07/30/2025 folic acid (Folvite) 1 MG tablet Take 1 tablet (1 mg) by mouth in the morning. 30 tablet 11 06/23/20 25 Active gabapentin (Neurontin) 800 MG tablet Take 0.5 tablets (400 mg) by mouth in the morning and at bedtime. Take morning of procedure 06/22/20 Active ipratropium-albut nikolai (Duo-Neb) 0.5-2.5 mg/3 mL nebulizer solution Take 3 mL by nebulization every 6 (six) hours if needed for wheezing. 360 mL 06/22/20 25 Active metFORMIN (Glucophage) 500 MG tablet Take 1 tablet (500 mg) by mouth with breakfast and with evening meal. 60 tablet 06/22/20 25 Active pantoprazole (ProtoNix) 40 MG EC tablet Take 1 tablet (40 mg) by mouth before breakfast. Do not crush, chew, or split. 30 tablet 06/22/20 25 Active isosorbide mononitrate 20 MG tablet Take 1 tablet (20 mg) by mouth in the morning and at bedtime. Hold for systolic blood pressure less than or equal to 100 mmHg 60 tablet 07/18/20 25 Active atorvastatin (Lipitor) 80 MG tabletIndications :Cerebrovascular Accident Take 1 tablet (80 mg) by mouth at bedtime. 90 tablet 3 07/18/20 25 Active Additional Information Patient not taking.Reported on 08/06/2025 magnesium oxide (Mag-Ox) tablet Take 1 tablet (400 mg) by mouth at bedtime. 90 tablet 3 07/18/20 25 Active bumetanide (Bumex) 2 MG tablet Take 1 tablet (2 mg) by mouth in the morning and at bedtime. Hold for systolic blood pressure less than or equal to 100 mmHg 180 tablet 3 07/18/20 25 Active apixaban (Eliquis) 5 MG tablet Take 1 tablet (5 mg) by mouth in the morning and at bedtime. 180 tablet 3 07/20/20 25 Active ondansetron ODT (Zofran-ODT) 8 MG disintegrating tablet DISSOLVE 1 TABLET ON TONGUE FOUR TIMES DAILY NEEDED FOR NAUSEA OR VOMITING 07/20/20 Active loratadine (Claritin Reditabs) 10 MG disintegrating tablet Take 1 tablet (10 mg) by mouth in the morning. Active cyclobenzaprine (Flexeril) 10 MG tablet TAKE 1 TABLET BY MOUTH THREE TIMES DAILY NEEDED FOR MUSCLE RELAXATION Active lisinopril 40 MG tablet Take 1 tablet (40 mg) by mouth in the morning. Active valproic acid (Depakene) 250 MG/5ML oral liquid Take 5 mL (250 mg) by mouth every 8 (eight) hours. 450 mL 1 08/06/20 25 025 Active valproic acid (Depakene) 250 MG/5ML oral liquid Take 5 mL (250 mg) by mouth every 8 (eight) hours. 450 mL 06/22/20 25 025 Discontinu ed(Reorder ) potassium chloride CR (Klor-Con M20) 20 MEQ ER tablet Take 1 tablet (20 mEq) by mouth in the morning and at bedtime. 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 PDL-1 highly expressed @ 90%. PET scan 11/13/2022 showed no evidence of disease outside the chest however MRI brain 11/2022 showed multiple brain lesions concerning/suspicious for metastasis. They are all few millimeters in size. Patient does not have any PRINTING PRESSMAN symptoms. She was seen by radiation oncology. We discussed her case: Plan to proceed with systemic treatment first and reassess. 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 Started TABRECTA (capmatinib) 12/11/2022 400 mg bid. Due to [...] Last XRT 03/23/2025 But radiation stopped with 4 treatments short apparently secondary to acute events and/or [...] given patient history of brain mets requiring surgery/radiation and more recently strokes - Awaiting CBC today to look at the platelets -Will continue to coordinate with neurosurgery and [facility] regarding brain imaging/disease. -She will continue to follow-up with neurology for her stroke - Labs before each treatment - RTC 08/29/2025 (after PET scan) Assessment & Plan (06/26/2025 10:49 AM EDT): 64 y/o smoker female patient with right NSCLC (adenocarcinoma) diagnosed 10/2022 based on EBUS done on RLL biopsy and 11 R and 7 lymph node stations cytology that all showed adenocarcinoma consistent with lung primary. PDL-1 highly expressed @ 90%. PET scan 11/13/2022 showed no evidence of disease outside the chest however MRI brain 11/2022 showed multiple brain lesions concerning/suspicious for metastasis. They are all few millimeters in size. Patient does not have any PRINTING PRESSMAN symptoms. She was seen by radiation oncology. We discussed her case: Plan to proceed with systemic treatment first and reassess. 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 Started TABRECTA (capmatinib) 12/11/2022 400 mg bid. Due to [...] Last XRT 03/23/2025 But radiation stopped with 4 treatments short apparently secondary to acute events and/or [...] an eye -Will coordinate with neurosurgery and [facility] regarding brain imaging - Labs before each treatment - RTC in 3 weeks or sooner if needed Assessment & Plan (06/05/2025 12:03 PM EDT): 64 y/o smoker female patient with right NSCLC (adenocarcinoma) diagnosed 10/2022 based on EBUS done on RLL biopsy and 11 R and 7 lymph node stations cytology that all showed adenocarcinoma consistent with lung primary. PDL-1 highly expressed @ 90%. PET scan 11/13/2022 showed no evidence of disease outside the chest however MRI brain 11/2022 showed multiple brain lesions concerning/suspicious for metastasis. They are all few millimeters in size. Patient does not have any PRINTING PRESSMAN symptoms. She was seen by radiation oncology. We discussed her case: Plan to proceed with systemic treatment first and reassess. 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 Started TABRECTA (capmatinib) 12/11/2022 400 mg bid. Due to [...] Last XRT 03/23/2025 But radiation stopped with 4 treatments short apparently secondary to acute events and/or [...] get another brain MRI rechecked June 2025. Clinic visit 06/05/2025: Patient admitted to the hospital after cycle #3 (20% dose reduced with G-CSF) with pancytopenia requiring blood product transfusion, sepsis/UTI, diarrhea/colitis. Doing and feeling much better today. Counts recovered/significantly improved. Feels like she could handle chemotherapy today Plan: -With the significant events, I will cut the chemotherapy dose further down (she will receive 40% of pemetrexed and 60% of carboplatin today) still with Neulasta. - Will finish a total of 4 cycles of combined chemoimmunotherapy treatment before we go to immunotherapy maintenance -PET scan after cycle #4. If needed will do CT dedicated to the chest - Reimaging after 3rd-4th cycle - Continue follow-up with neurosurgery at as planned for that short interval MRI brain was scheduled June 2025 at the but as per patient/daughter this was canceled and did not know the reason. I am assuming this because patient had a brain radiation here at [facility] 03/2025 since the gamma knife she received 12/2024 at the . I will coordinate with [facility] radiation oncology about the next brain MRI. Based on the results, I will touch base with neurosurgery regarding next steps in management (I spoke to patient's radiation oncologist, Dr. Delgadillo. She states that she wants me to do surveillance/order the brain MRI and get in touch with her as needed. She she said okay to order first week of 06/2025)) - Labs before each chemo - RTC in 3 weeks or sooner if needed Assessment & Plan (04/25/2025 12:00 PM EDT): 64 y/o smoker female patient with right NSCLC (adenocarcinoma) diagnosed 10/2022 based on EBUS done on RLL biopsy and 11 R and 7 lymph node stations cytology that all showed adenocarcinoma consistent with lung primary. PDL-1 highly expressed @ 90%. PET scan 11/13/2022 showed no evidence of disease outside the chest however MRI brain 11/2022 showed multiple brain lesions concerning/suspicious for metastasis. They are all few millimeters in size. Patient does not have any PRINTING PRESSMAN symptoms. She was seen by radiation oncology. We discussed her case: Plan to proceed with systemic treatment first and reassess. 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 Started TABRECTA (capmatinib) 12/11/2022 400 mg bid. Due to [...] Last XRT 03/23/2025 But radiation stopped with 4 treatments short apparently secondary to acute events and/or [...] get another brain MRI rechecked June 2025. Today, patient extremely fatigue looks pale. Hemoglobin 4.4. Platelet 36. Currently on no anticoagulation due to bladder bleeding. Patient said had significant bladder bleeding before resolved. White count low but differential in progress during the encounter. Plan: - Will finish a total of 4 cycles of combined chemoimmunotherapy treatment before we go to immunotherapy maintenance - I will give 2 units of blood today and do anemia workup to see if her vitamins needs optimized - I will reevaluate in a week. If feels and looks better and her cytopenia improved, will consider third cycle of treatment but at 80% +/- G-CSF support - Reimaging after 3rd-4th cycle - Continue follow-up with neurosurgery at as planned for that short interval MRI brain currently scheduled June 2025 - Labs before each chemo - RTC in a week Assessment & Plan (04/06/2025 2:50 PM EDT): 64 y/o smoker female patient with right NSCLC (adenocarcinoma) diagnosed 10/2022 based on EBUS done on RLL biopsy and 11 R and 7 lymph node stations cytology that all showed adenocarcinoma consistent with lung primary. PDL-1 highly expressed @ 90%. PET scan 11/13/2022 showed no evidence of disease outside the chest however MRI brain 11/2022 showed multiple brain lesions concerning/suspicious for metastasis. They are all few millimeters in size. Patient does not have any PRINTING PRESSMAN symptoms. She was seen by radiation oncology. We discussed her case: Plan to proceed with systemic treatment first and reassess. 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 Started TABRECTA (capmatinib) 12/11/2022 400 mg bid. Due to [...] at the 11/2024 showing metastatic pulmonary adenocarcinoma. S/P Gamma knife to Right frontal lobe tumor bed 12/26/24 at Case was discussed at tumor board, consensuses was concurrently chemoradiation followed by immunotherapy. She has been hospitalized for pna from 01/10 to 01/13/25. CTA done while inpt shows stable lung mass. Started carbo/alimta based chemoradiation on 02/20/25. Office visit 02/28/25 Seeing today in FU. Reports left arm and face numbness. Arm started a week ago, face started this morning. No facial droop on exam. Speech clear. Only sensory discrepancy noted. Also reports severe diarrhea. Taking imodium. Rx lomotil -Send for stat MRI brain -Continue Bumex, elevated legs, compression stockings. Edema is much improved today -Rx Lomotil for diarrhea, continue Imodium *Stat MRI Brain: Progression of disease. The configuration of the ventricles and sulci [...] show no evidence of acute ischemic change. Spoke to second baller Oncologist, Dr. Elizabeth. She recommends to request whole brain radiation. Rx dex 4mg BID and follow up with her tomorrow. Office visit 04/06/25 Jose has had a hard month. Found [...] she was instructed to stop xarelto and lovenox. Today, doing better. Due to have figueroa cath removed next week. No further bleeding. Spasticity and numbness resolved, No further radiation to lung. Plan: Tx on Wednesday, planned to add Keytruda per Dr. Chaz Soriano. Will confirm with him as well. Discuss AC plan with Dr. Chaz Soriano. Risk of clot with A-fib, hx DVT and PE and on chemotherapy. May need watchman device if unable to take AC. Continue folic acid FU 3 weeks, Dr. Chaz Soriano Assessment & Plan (02/28/2025 1:59 PM EDT): 64 y/o smoker female patient with right NSCLC (adenocarcinoma) diagnosed 10/2022 based on EBUS done on RLL biopsy and 11 R and 7 lymph node stations cytology that all showed adenocarcinoma consistent with lung primary. PDL-1 highly expressed @ 90%. PET scan 11/13/2022 showed no evidence of disease outside the chest however MRI brain 11/2022 showed multiple brain lesions concerning/suspicious for metastasis. They are all few millimeters in size. Patient does not have any PRINTING PRESSMAN symptoms. She was seen by radiation oncology. We discussed her case: Plan to proceed with systemic treatment first and reassess. 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 Started TABRECTA (capmatinib) 12/11/2022 400 mg bid. Due to [...] at the 11/2024 showing metastatic pulmonary adenocarcinoma. S/P Gamma knife to Right frontal lobe tumor bed 12/26/24 at Case was discussed at tumor board, consensuses was concurrently chemoradiation followed by immunotherapy. She has been hospitalized for pna from 01/10 to 01/13/25. CTA done while inpt shows stable lung mass. Started carbo/alimta based chemoradiation on 02/20/25. Office visit 02/28/25 Seeing today in FU. Reports left arm and face numbness. Arm started a week ago, face started this morning. No facial droop on exam. Speech clear. Only sensory discrepancy noted. Also reports severe diarrhea. Taking imodium. Rx lomotil -Send for stat MRI brain -Continue Bumex, elevated legs, compression stockings. Edema is much improved today -Rx Lomotil for diarrhea, continue Imodium *Stat MRI Brain: Progression of disease. The configuration of the ventricles and sulci [...] show no evidence of acute ischemic change. Spoke to second baller Oncologist, Dr. Elizabeth. She recommends to request whole brain radiation. Rx dex 4mg BID and follow up with her tomorrow. Assessment & Plan (01/25/2025 10:53 AM EDT): Now planned for carboTaxol based chemoXRT to her limited chest disease, to be followed by IO. Discussed rational of management plan in details. Discussed side effects. Questions answered to her satisfaction. She agreed to proceed with the plan Will send Rx for PRN nausea meds Assessment & Plan (01/18/2025 11:26 AM EST): 64 y/o smoker female patient with right NSCLC (adenocarcinoma) diagnosed 10/2022 based on EBUS done on RLL biopsy and 11 R and 7 lymph node stations cytology that all showed adenocarcinoma consistent with lung primary. PDL-1 highly expressed @ 90%. PET scan 11/13/2022 showed no evidence of disease outside the chest however MRI brain 11/2022 showed multiple brain lesions concerning/suspicious for metastasis. They are all few millimeters in size. Patient does not have any PRINTING PRESSMAN symptoms. She was seen by radiation oncology. We discussed her case: Plan to proceed with systemic treatment first and reassess. 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 Started TABRECTA (capmatinib) 12/11/2022 400 mg bid. Due to [...] at the 11/2024 showing metastatic pulmonary adenocarcinoma. Case was discussed at tumor board, consensuses was concurrently chemoradiation followed by immunotherapy. She has been hospitalized for pna from 01/10 to 01/13/25. CTA done while inpt shows stable lung mass She is now recovered from this. Is currently having 3+ pitting edema to lower ext. Has been taking Lasix with no improvement Is established with cardiology Plan: -Change Lasix to Bumex, elevated legs, compression stockings -Rad onc referral for evaluation of concurrent chemordads that was discussed in tumor board. Spoke with Maye patient navigator to get appt expedited -Follow up with Dr. Chaz Soriano in one week Assessment & Plan (12/20/2024 2:58 PM EST): 64 y/o smoker female patient with right NSCLC (adenocarcinoma) diagnosed 10/2022 based on EBUS done on RLL biopsy and 11 R and 7 lymph node stations cytology that all showed adenocarcinoma consistent with lung primary. PDL-1 highly expressed @ 90%. PET scan 11/13/2022 showed no evidence of disease outside the chest however MRI brain 11/2022 showed multiple brain lesions concerning/suspicious for metastasis. They are all few millimeters in size. Patient does not have any PRINTING PRESSMAN symptoms. She was seen by radiation oncology. We discussed her case: Plan to proceed with systemic treatment first and reassess. 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 Started TABRECTA (capmatinib) 12/11/2022 400 mg bid. Due to [...] at the 11/2024 showing metastatic pulmonary adenocarcinoma. Currently planned for gamma knife surgery 12/26/2024. Also plan to have repeat MRI done March 2025 over there at the . Plan: -Given PD, will discontinue TABRECTA (capmatinib) -After gamma knife surgery is done, we will start systemic treatment -Will discuss in tumor board 01/04/2025 best management approach moving forward (with the brain lesion resected, chemoradiation to her limited chest disease to be followed by maintenance immunotherapy versus upfront systemic therapy (pemetrexed/carboplatin/Keytruda) with XRT to be considered for consolidative radiation for any residual disease. -Will see the patient 01/05/2025 here at [facility] to discuss systemic treatment options as detailed above. -Will coordinate her care with [facility] neurosurgery team as far as her brain metastasis -Keep reimaging brain MRI and follow-up appointment with neurosurgery team as scheduled -RTC 01/05/2025 Assessment & Plan (12/07/2024 3:34 PM EST): 64 y/o smoker female patient with right NSCLC (adenocarcinoma) diagnosed 10/2022 based on EBUS done on RLL biopsy and 11 R and 7 lymph node stations cytology that all showed adenocarcinoma consistent with lung primary. PDL-1 highly expressed @ 90%. PET scan 11/13/2022 showed no evidence of disease outside the chest however MRI brain 11/2022 showed multiple brain lesions concerning/suspicious for metastasis. They are all few millimeters in size. Patient does not have any PRINTING PRESSMAN symptoms. She was seen by radiation oncology. We discussed her case: Plan to proceed with systemic treatment first and reassess. 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 Started TABRECTA (capmatinib) 12/11/2022 400 mg bid. Due to [...] at the 11/2024 showing metastatic pulmonary adenocarcinoma. Plan: -Given PD, will discontinue TABRECTA (capmatinib) -Will discuss in tumor board best management approach moving forward (with the brain lesion resected, chemoradiation to her limited chest disease to be followed by maintenance immunotherapy versus upfront systemic therapy (pemetrexed/carboplatin/Keytruda) with XRT to be considered for consolidative radiation for any residual disease. -Will coordinate her care with neurosurgery team as far as her brain metastasis -Keep any follow-up appointment with neurosurgery team -RTC 4 weeks or sooner if needed Addendum 12/07/2024 at 3:30 PM: I spoke to patient's daughter today. They are both at the neurosurgery center and is currently planned for gamma knife surgery 12/26/2024. Also plan to have repeat MRI done March 2025 over there at the . Will see the patient 12/28/2024 here at [facility] to discuss systemic treatment options as detailed above. Assessment & Plan (11/17/2024 12:06 PM EST): 63 y/o smoker female patient with right NSCLC (adenocarcinoma) diagnosed 10/2022 based on EBUS done on RLL biopsy and 11 R and 7 lymph node stations cytology that all showed adenocarcinoma consistent with lung primary. PDL-1 highly expressed @ 90%. PET scan 11/13/2022 showed no evidence of disease outside the chest however MRI brain 11/2022 showed multiple brain lesions concerning/suspicious for metastasis. They are all few millimeters in size. Patient does not have any PRINTING PRESSMAN symptoms. She was seen by radiation oncology. We discussed her case: Plan to proceed with systemic treatment first and reassess. 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 Started TABRECTA (capmatinib) 12/11/2022 400 mg bid. Due to kidney impairment and edema, it had to be dose reduced. She is currently taking 200 mg twice a day every other day, alternating with 200 mg once a day every other day while on Lasix 20 mg twice a day (along with supplemental potassium) with improvement and good control of her swelling, and will subsequent imaging showing no evidence of disease PET scan 03/2024 with no evidence of disease. MRI brain 04/2024 with no e/o met Office visit 10/27/24 Seeing today in follow up. Reports doing well. Breathing is baseline. Still having swelling in hands and feet but is no worse. Reviewed labs today, stable Plan: -Continue with TABRECTA (capmatinib) at the usual dosing consisting of daily alternating with twice daily for now and closely monitor her edema particularly the hands edema -Keep Lasix at 20 mg twice a day for now -We will keep daily potassium supplements while on Lasix -Reimaging in 6 months , Due now and will order PET scan for accurate comparison and MRI brain -Elevate legs -Follow-up with nephrology -Follow-up with PCP -Follow-up with cardiology -RTC 4 weeks or sooner if needed Addendum: MRI Brain on 11/13/24 showed new brain lesion with small amount of hemorrhage. Dr. Chaz Soriano reviewed. Instructed patient to stop Xarelto. He also instructed to go to the ED. Dr. Soriano called ED and notified that patient needs to be admitted for monitoring of worsening bleeding due to being on DOAC. He also suggested they should contact [facility] neurosurgery to get opinion about resection and [facility]. He has also discussed with Dr. Delgadillo who is Ms. Sims's Radiation oncologist. Assessment & Plan (08/09/2024 10:50 AM EDT): 63 y/o smoker female patient with right NSCLC (adenocarcinoma) diagnosed 10/2022 based on EBUS done on RLL biopsy and 11 R and 7 lymph node stations cytology that all showed adenocarcinoma consistent with lung primary. PDL-1 highly expressed @ 90%. PET scan 11/13/2022 showed no evidence of disease outside the chest however MRI brain 11/2022 showed multiple brain lesions concerning/suspicious for metastasis. They are all few millimeters in size. Patient does not have any PRINTING PRESSMAN symptoms. She was seen by radiation oncology. We discussed her case: Plan to proceed with systemic treatment first and reassess. 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 Started TABRECTA (capmatinib) 12/11/2022 400 mg bid. Due to kidney impairment and edema, it had to be dose reduced. She is currently taking 200 mg twice a day every other day, alternating with 200 mg once a day every other day while on Lasix 20 mg twice a day (along with supplemental potassium) with improvement and good control of her swelling, and will subsequent imaging showing no evidence of disease PET scan 03/2024 with no evidence of disease. MRI brain 04/2024 with no e/o met Today reports edema has been stable/manageable/not interfering with her quality of life. Doing well . Reviewed labs today. Cr overall stable/acceptable. Plan: -Continue with TABRECTA (capmatinib) at the usual dosing consisting of daily alternating with twice daily for now and closely monitor her edema particularly the hands edema -Keep Lasix at 20 mg twice a day for now -We will keep daily potassium supplements while on Lasix -Reimaging in 6 months (this will be around October 2024 close -Elevate legs -Follow-up with nephrology -Follow-up with PCP -Follow-up with cardiology -RTC 3 weeks or sooner if needed Assessment & Plan (07/26/2024 11:14 AM EDT): 63 y/o smoker female patient with right NSCLC (adenocarcinoma) diagnosed 10/2022 based on EBUS done on RLL biopsy and 11 R and 7 lymph node stations cytology that all showed adenocarcinoma consistent with lung primary. PDL-1 highly expressed @ 90%. PET scan 11/13/2022 showed no evidence of disease outside the chest however MRI brain 11/2022 showed multiple brain lesions concerning/suspicious for metastasis. They are all few millimeters in size. Patient does not have any PRINTING PRESSMAN symptoms. She was seen by radiation oncology. We discussed her case: Plan to proceed with systemic treatment first and reassess. 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 Started TABRECTA (capmatinib) 12/11/2022 400 mg bid. Due to kidney impairment and edema, it had to be dose reduced. She is currently taking 200 mg twice a day every other day, alternating with 200 mg once a day every other day while on Lasix 20 mg twice a day (along with supplemental potassium) with improvement and good control of her swelling, and will subsequent imaging showing no evidence of disease PET scan 03/2024 with no evidence of disease. MRI brain 04/2024 with no e/o met Today reports edema in her hands has gotten better and is now back to normal/usual. Doing well today. Reviewed labs today. Cr overall stable/acceptable. Plan: -Continue with TABRECTA (capmatinib) at the usual dosing consisting of daily alternating with twice daily for now and closely monitor her edema particularly the hands edema -Keep Lasix at 20 mg twice a day for now -We will keep daily potassium supplements while on Lasix -Reimaging in 6 months (this will be around October 2024 close -Elevate legs -Follow-up with nephrology -Follow-up with PCP -Follow-up with cardiology -RTC 2 weeks or sooner if needed Assessment & Plan (07/05/2024 11:26 AM EDT): 63 y/o smoker female patient with right NSCLC (adenocarcinoma) diagnosed 10/2022 based on EBUS done on RLL biopsy and 11 R and 7 lymph node stations cytology that all showed adenocarcinoma consistent with lung primary. PDL-1 highly expressed @ 90%. PET scan 11/13/2022 showed no evidence of disease outside the chest however MRI brain 11/2022 showed multiple brain lesions concerning/suspicious for metastasis. They are all few millimeters in size. Patient does not have any PRINTING PRESSMAN symptoms. She was seen by radiation oncology. We discussed her case: Plan to proceed with systemic treatment first and reassess. 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 Started TABRECTA (capmatinib) 12/11/2022 400 mg bid. Due to kidney impairment and edema, it had to be dose reduced. She is currently taking 200 mg twice a day every other day, alternating with 200 mg once a day every other day while on Lasix 20 mg twice a day (along with supplemental potassium) with improvement and good control of her swelling, and will subsequent imaging showing no evidence of disease PET scan 03/2024 with no evidence of disease. MRI brain 04/2024 with no e/o met Today reports edema in her hands has gotten better and is now back to normal/usual. Doing well today. Reviewed labs today. Cr within normal limits Plan: -Continue with TABRECTA (capmatinib) at the usual dosing consisting of daily alternating with twice daily for now and closely monitor her edema particularly the hands edema -Keep Lasix at 20 mg twice a day for now -We will keep daily potassium supplements while on Lasix -Reimaging in 6 months (this will be around October 2024 close -Elevate legs -Follow-up with nephrology -Follow-up with PCP regarding the recent hospitalization issues -RTC 3 weeks or sooner if needed Assessment & Plan (06/19/2024 10:14 AM EDT): 63 y/o smoker female patient with right NSCLC (adenocarcinoma) diagnosed 10/2022 based on EBUS done on RLL biopsy and 11 R and 7 lymph node stations cytology that all showed adenocarcinoma consistent with lung primary. PDL-1 highly expressed @ 90%. PET scan 11/13/2022 showed no evidence of disease outside the chest however MRI brain 11/2022 showed multiple brain lesions concerning/suspicious for metastasis. They are all few millimeters in size. Patient does not have any PRINTING PRESSMAN symptoms. She was seen by radiation oncology. We discussed her case: Plan to proceed with systemic treatment first and reassess. 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 Started TABRECTA (capmatinib) 12/11/2022 400 mg bid. Due to kidney impairment and edema, it had to be dose reduced. She is currently taking 200 mg twice a day every other day, alternating with 200 mg once a day every other day while on Lasix 20 mg twice a day (along with supplemental potassium) with improvement and good control of her swelling. Brain MRI 03/2023 showed good response to treatment. PET scan 07/2023 showed excellent response to treatment however mention an uptake and C2 and T1 for which a bone scan done that did also show an abnormality in C2. She is asymptomatic. C-spine MRI showed no evidence of metastasis. Brain MRI 10/2023 with no masses reported per radiologist. PET scan 11/2023 with a stable finding and no concrete evidence of PD. Doing well today. Feeling a knot on her left front scalp that has been stable in size. She has been taking TABRECTA (capmatinib) once a day alternating with twice a day. Tolerated well with her leg edema very tolerable while on Lasix/potassium supplements, and her kidney function overall stable PET scan 03/2024 with no evidence of disease. MRI brain 04/2024 with no e/o met Today reports edema in her hands that is interfering with her life daily activity. Doing well otherwise. Reviewed labs today. Cr little bit up today. Plan: -Continue with TABRECTA (capmatinib) but will cut dose for about a week for her edema and creatinine to improve. Today patient already had a dose this morning, will hold this evening's dose. Will also hold tomorrow's dose. Will give once a day on Wednesday, and Wednesday. Advised patient depending on her edema, she can resume her usual dosing the weekend or continue to take once a day that we can. After her hands edema improved/resolved, we will be continuing at the usual dosing consisting of daily alternating with twice daily -Keep Lasix at 20 mg twice a day for now -We will keep daily potassium supplements while on Lasix -Reimaging in 6 months (this will be around October 2024 close -Elevate legs -Follow-up with nephrology -Follow-up with PCP regarding the recent hospitalization issues -RTC 2 weeks or sooner if needed Assessment & Plan (05/09/2024 10:31 AM EDT): 63 y/o smoker female patient with right NSCLC (adenocarcinoma) diagnosed 10/2022 based on EBUS done on RLL biopsy and 11 R and 7 lymph node stations cytology that all showed adenocarcinoma consistent with lung primary. PDL-1 highly expressed @ 90%. PET scan 11/13/2022 showed no evidence of disease outside the chest however MRI brain 11/2022 showed multiple brain lesions concerning/suspicious for metastasis. They are all few millimeters in size. Patient does not have any PRINTING PRESSMAN symptoms. She was seen by radiation oncology. We discussed her case: Plan to proceed with systemic treatment first and reassess. 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 Started TABRECTA (capmatinib) 12/11/2022 400 mg bid. Due to kidney impairment and edema, it had to be dose reduced. She is currently taking 200 mg twice a day every other day, alternating with 200 mg once a day every other day while on Lasix 20 mg twice a day (along with supplemental potassium) with improvement and good control of her swelling. Brain MRI 03/2023 showed good response to treatment. PET scan 07/2023 showed excellent response to treatment however mention an uptake and C2 and T1 for which a bone scan done that did also show an abnormality in C2. She is asymptomatic. C-spine MRI showed no evidence of metastasis. Brain MRI 10/2023 with no masses reported per radiologist. PET scan 11/2023 with a stable finding and no concrete evidence of PD. Doing well today. Feeling a knot on her left front scalp that has been stable in size. She has been taking TABRECTA (capmatinib) once a day alternating with twice a day. Tolerated well with her leg edema very tolerable while on Lasix/potassium supplements, and her kidney function overall stable PET scan 03/2024 with no evidence of disease. MRI brain 04/2024 with no e/o mets Admitted to the hospital for about 2 weeks 04/2024 for bilateral pneumonia she also had a workup for possible stroke and ischemic heart disease. Doing much better today. She says she is back to her usual self. No complaints no issues today Reviewed labs today. Cr overall stable Plan: -Continue with TABRECTA (capmatinib) at the usual dosing consisting of daily alternating with twice daily -Keep Lasix at 20 mg twice a day for now -We will keep daily potassium supplements while on Lasix -Reimaging in 6 months (this will be around October 2024 close -Elevate legs -Follow-up with nephrology -Follow-up with PCP regarding the recent hospitalization issues -RTC 3 weeks Assessment & Plan (04/11/2024 11:24 AM EDT): 63 y/o smoker female patient with right NSCLC (adenocarcinoma) diagnosed 10/2022 based on EBUS done on RLL biopsy and 11 R and 7 lymph node stations cytology that all showed adenocarcinoma consistent with lung primary. PDL-1 highly expressed @ 90%. PET scan 11/13/2022 showed no evidence of disease outside the chest however MRI brain 11/2022 showed multiple brain lesions concerning/suspicious for metastasis. They are all few millimeters in size. Patient does not have any PRINTING PRESSMAN symptoms. She was seen by radiation oncology. We discussed her case: Plan to proceed with systemic treatment first and reassess. 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 Started TABRECTA (capmatinib) 12/11/2022 400 mg bid. Due to kidney impairment and edema, it had to be dose reduced. She is currently taking 200 mg twice a day every other day, alternating with 200 mg once a day every other day while on Lasix 20 mg twice a day (along with supplemental potassium) with improvement and good control of her swelling. Brain MRI 03/2023 showed good response to treatment. PET scan 07/2023 showed excellent response to treatment however mention an uptake and C2 and T1 for which a bone scan done that did also show an abnormality in C2. She is asymptomatic. C-spine MRI showed no evidence of metastasis. Brain MRI 10/2023 with no masses reported per radiologist. PET scan 11/2023 with a stable finding and no concrete evidence of PD. Doing well today. Feeling a knot on her left front scalp that has been stable in size. She has been taking TABRECTA (capmatinib) once a day alternating with twice a day. Tolerated well with her leg edema very tolerable while on Lasix/potassium supplements, and her kidney function overall stable PET scan 03/2024 with no evidence of disease. Reviewed labs today. CBC unremarkable. Cr overall stable Plan: -Continue with TABRECTA (capmatinib) at the usual dosing consisting of daily alternating with twice daily -Keep Lasix at 20 mg twice a day for now -We will keep daily potassium supplements while on Lasix -Reimaging in 4 months (this will be around August 2024 close ( -Brain MRI due now. This will cover the scalp knot to further characterize -Elevate legs -Follow-up with nephrology -Follow-up with PCP -Labs on 2 wks basis -RTC 4 weeks to review images or sooner if needed Assessment & Plan (03/17/2024 10:00 AM EDT): 63 y/o smoker female patient with right NSCLC (adenocarcinoma) diagnosed 10/2022 based on EBUS done on RLL biopsy and 11 R and 7 lymph node stations cytology that all showed adenocarcinoma consistent with lung primary. PDL-1 highly expressed @ 90%. PET scan 11/13/2022 showed no evidence of disease outside the chest however MRI brain 11/2022 showed multiple brain lesions concerning/suspicious for metastasis. They are all few millimeters in size. Patient does not have any PRINTING PRESSMAN symptoms. She was seen by radiation oncology. We discussed her case: Plan to proceed with systemic treatment first and reassess. 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 Started TABRECTA (capmatinib) 12/11/2022 400 mg bid. Due to kidney impairment and edema, it had to be dose reduced. She is currently taking 200 mg twice a day every other day, alternating with 200 mg once a day every other day while on Lasix 20 mg twice a day (along with supplemental potassium) with improvement and good control of her swelling. Brain MRI 03/2023 showed good response to treatment. PET scan 07/2023 showed excellent response to treatment however mention an uptake and C2 and T1 for which a bone scan done that did also show an abnormality in C2. She is asymptomatic. C-spine MRI showed no evidence of metastasis. Brain MRI 10/2023 with no masses reported per radiologist. PET scan 11/2023 with a stable finding and no concrete evidence of PD. Doing well today. Feeling a knot on her left front scalp that has been growing over the last 2 months. She has been taking TABRECTA (capmatinib) once a day alternating with twice a day. Tolerated well with her leg edema very tolerable while on Lasix/potassium supplements, and her kidney function overall stable Reviewed labs today. CBC unremarkable. Cr overall stable Plan: -Continue with TABRECTA (capmatinib) at the usual dosing consisting of daily alternating with twice daily -Keep Lasix at 20 mg twice a day for now -We will keep daily potassium supplements while on Lasix -PET due now -Brain MRI due now. This will cover the scalp knot to further characterize -Elevate legs -Follow-up with nephrology -Follow-up with PCP -Labs on 2 wks -RTC 3 weeks to review images or sooner if needed Assessment & Plan (01/14/2024 9:57 AM EST): 63 y/o smoker female patient with right NSCLC (adenocarcinoma) diagnosed 10/2022 based on EBUS done on RLL biopsy and 11 R and 7 lymph node stations cytology that all showed adenocarcinoma consistent with lung primary. PDL-1 highly expressed @ 90%. PET scan 11/13/2022 showed no evidence of disease outside the chest however MRI brain 11/2022 showed multiple brain lesions concerning/suspicious for metastasis. They are all few millimeters in size. Patient does not have any PRINTING PRESSMAN symptoms. She was seen by radiation oncology. We discussed her case: Plan to proceed with systemic treatment first and reassess. 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 Started TABRECTA (capmatinib) 12/11/2022 400 mg bid. Due to kidney impairment and edema, it had to be dose reduced. She is currently taking 200 mg twice a day every other day, alternating with 200 mg once a day every other day while on Lasix 20 mg twice a day (along with supplemental potassium) with improvement and good control of her swelling. Brain MRI 03/2023 showed good response to treatment. PET scan 07/2023 showed excellent response to treatment however mention an uptake and C2 and T1 for which a bone scan done that did also show an abnormality in C2. She is asymptomatic. C-spine MRI showed no evidence of metastasis. Brain MRI 10/2023 with no masses reported per radiologist. PET scan 11/2023 with a stable finding and no concrete evidence of PD. Doing well today. She has been taking TABRECTA (capmatinib) once a day alternating with twice a day. Tolerated well with her leg edema very tolerable while on Lasix/potassium supplements, and her kidney function overall stable Reviewed labs today. CBC unremarkable. Cr of WNL Plan: -Continue with TABRECTA (capmatinib) at the usual dosing consisting of daily alternating with twice daily -Keep Lasix at 20 mg twice a day for now -We will keep daily potassium supplements while on Lasix -PET March 2024 -Brain MRI February 2024 -Elevate legs -Follow-up with nephrology -Follow-up with PCP -Labs on 2 wks -RTC 4 weeks or sooner if needed Assessment & Plan (12/24/2023 9:50 AM EST): 63 y/o smoker female patient with right NSCLC (adenocarcinoma) diagnosed 10/2022 based on EBUS done on RLL biopsy and 11 R and 7 lymph node stations cytology that all showed adenocarcinoma consistent with lung primary. PDL-1 highly expressed @ 90%. PET scan 11/13/2022 showed no evidence of disease outside the chest however MRI brain 11/2022 showed multiple brain lesions concerning/suspicious for metastasis. They are all few millimeters in size. Patient does not have any PRINTING PRESSMAN symptoms. She was seen by radiation oncology. We discussed her case: Plan to proceed with systemic treatment first and reassess. 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 Started TABRECTA (capmatinib) 12/11/2022 400 mg bid. Due to kidney impairment and edema, it had to be dose reduced. She is currently taking 200 mg twice a day every other day, alternating with 200 mg once a day every other day while on Lasix 20 mg twice a day (along with supplemental potassium) with improvement and good control of her swelling. Brain MRI 03/2023 showed good response to treatment. PET scan 07/2023 showed excellent response to treatment however mention an uptake and C2 and T1 for which a bone scan done that did also show an abnormality in C2. She is asymptomatic. C-spine MRI showed no evidence of metastasis. Brain MRI 10/2023 with no masses reported per radiologist. PET scan 11/2023 with a stable finding and no concrete evidence of PD. Doing well today. She has been taking TABRECTA (capmatinib) once a day alternating with twice a day. Tolerated well with her leg edema very tolerable while on Lasix/potassium supplements, and her kidney function overall stable Reviewed labs today. CBC unremarkable. Cr of 1.2. She still drinks pops Plan: -I advised her to stop drinking pops as that likely contributing to her kidney impairment -Continue with TABRECTA (capmatinib) at the usual dosing consisting of daily alternating with twice daily -Keep Lasix at 20 mg twice a day for now -We will keep daily potassium supplements while on Lasix -PET March 2024 -Brain MRI February 2024 -Elevate legs -Follow-up with nephrology -Follow-up with PCP -RTC 3 weeks or sooner if needed Assessment & Plan (12/09/2023 10:56 AM EST): 63 y/o smoker female patient with right NSCLC (adenocarcinoma) diagnosed 10/2022 based on EBUS done on RLL biopsy and 11 R and 7 lymph node stations cytology that all showed adenocarcinoma consistent with lung primary. PDL-1 highly expressed @ 90%. PET scan 11/13/2022 showed no evidence of disease outside the chest however MRI brain 11/2022 showed multiple brain lesions concerning/suspicious for metastasis. They are all few millimeters in size. Patient does not have any PRINTING PRESSMAN symptoms. She was seen by radiation oncology. We discussed her case: Plan to proceed with systemic treatment first and reassess. 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 Started TABRECTA (capmatinib) 12/11/2022 400 mg bid. Due to kidney impairment and edema, it had to be dose reduced. She is currently taking 200 mg twice a day every other day, alternating with 200 mg once a day every other day while on Lasix 20 mg twice a day (along with supplemental potassium) with improvement and good control of her swelling. Brain MRI 03/2023 showed good response to treatment. PET scan 07/2023 showed excellent response to treatment however mention an uptake and C2 and T1 for which a bone scan done that did also show an abnormality in C2. She is asymptomatic. C-spine MRI showed no evidence of metastasis. Brain MRI 10/2023 with no masses reported per radiologist. Doing well today. She has been taking TABRECTA (capmatinib) once a day alternating with twice a day. Tolerated well with her leg edema very tolerable while on Lasix/potassium supplements, and her kidney function overall stable Reviewed labs today. CBC unremarkable. Cr of 1.0 Plan: -Continue with TABRECTA (capmatinib) at the usual dosing consisting of daily alternating with twice daily -Keep Lasix at 20 mg twice a day for now -We will keep daily potassium supplements while on Lasix -Offered patient referral to see spine surgery. Patient wants to hold off at this point of time -PET November 2023 -Brain MRI February 2024 -Elevate legs -Follow-up with nephrology -Follow-up with PCP -We will recheck labs in 2 weeks -RTC 2 weeks or sooner if needed Assessment & Plan (11/18/2023 10:23 AM EST): 63 y/o smoker female patient with right NSCLC (adenocarcinoma) diagnosed 10/2022 based on EBUS done on RLL biopsy and 11 R and 7 lymph node stations cytology that all showed adenocarcinoma consistent with lung primary. PDL-1 highly expressed @ 90%. PET scan 11/13/2022 showed no evidence of disease outside the chest however MRI brain 11/2022 showed multiple brain lesions concerning/suspicious for metastasis. They are all few millimeters in size. Patient does not have any PRINTING PRESSMAN symptoms. She was seen by radiation oncology. We discussed her case: Plan to proceed with systemic treatment first and reassess. 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 Started TABRECTA (capmatinib) 12/11/2022 400 mg bid. Due to kidney impairment and edema, it had to be dose reduced. She is currently taking 200 mg twice a day every other day, alternating with 200 mg once a day every other day while on Lasix 20 mg twice a day (along with supplemental potassium) with improvement and good control of her swelling. Brain MRI 03/2023 showed good response to treatment. PET scan 07/2023 showed excellent response to treatment however mention an uptake and C2 and T1 for which a bone scan done that did also show an abnormality in C2. She is asymptomatic. C-spine MRI is currently scheduled 11/19/2023. Brain MRI 10/2023 with no masses reported per radiologist. Doing well today. She is no longer drinking pops which helped keeping her knee function improved . She has been taking TABRECTA (capmatinib) once a day alternating with twice a day. Tolerated well with her leg edema very tolerable while on Lasix/potassium supplements, and her kidney function overall stable Reviewed labs today. CBC unremarkable. Cr of 1.2. Plan: -For her elevated creatinine, I will give her a holiday from TABRECTA (capmatinib) till Wednesday, to be resumed Wednesday and to be taken the usual dosing consisting of daily alternating with twice daily -Keep Lasix at 20 mg twice a day for now -We will keep daily potassium supplements while on Lasix -Awaiting C-spine MRI to further characterize the abnormal areas in T1 and C2 showed endplate/bone scans -PET November 2023 -Brain MRI February 2024 -Elevate legs -Follow-up with nephrology -Follow-up with PCP -We will recheck labs in 2 weeks -RTC 2 weeks or sooner if needed Assessment & Plan (10/15/2023 10:40 AM EST): 63 y/o smoker female patient with right NSCLC (adenocarcinoma) diagnosed 10/2022 based on EBUS done on RLL biopsy and 11 R and 7 lymph node stations cytology that all showed adenocarcinoma consistent with lung primary. PDL-1 highly expressed @ 90%. PET scan 11/13/2022 showed no evidence of disease outside the chest however MRI brain 11/2022 showed multiple brain lesions concerning/suspicious for metastasis. They are all few millimeters in size. Patient does not have any PRINTING PRESSMAN symptoms. She was seen by radiation oncology. We discussed her case: Plan to proceed with systemic treatment first and reassess. 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 Started TABRECTA (capmatinib) 12/11/2022 400 mg bid. Due to kidney impairment and edema, it had to be dose reduced. She is currently taking 200 mg twice a day every other day, alternating with 200 mg once a day every other day while on Lasix 20 mg twice a day (along with supplemental potassium) with improvement and good control of her swelling. Brain MRI 03/2023 showed good response to treatment. PET scan 07/2023 showed excellent response to treatment however mention an uptake and C2 and T1 for which a bone scan done that did also show an abnormality in C2. She is asymptomatic Doing well today. She cut down significantly on drinking pops which helped keeping her creatinine within normal limit. She has been taking TABRECTA (capmatinib) once a day alternating with twice a day. Tolerated well with her leg edema very tolerable while on Lasix/potassium supplements, and her kidney function within normal limits Reviewed labs today. CBC unremarkable. CMP is pending but I spoke to the lab who reported creatinine verbally to be 1.2. Plan: -We will continue with TABRECTA (capmatinib) to be taken daily alternating with twice daily -Keep Lasix at 20 mg twice a day for now -We will keep daily potassium supplements while on Lasix -I will do a C-spine MRI to further characterize the abnormal areas in T1 and C2 showed endplate/bone scans -PET November -Brain MRI October -Elevate legs -Follow-up with nephrology -Follow-up with PCP -We will continue weekly labs and intervene accordingly -RTC 6 weeks or sooner if needed Assessment & Plan (09/30/2023 3:38 PM EST): 62 y/o smoker female patient with right NSCLC (adenocarcinoma) diagnosed 10/2022 based on EBUS done on RLL biopsy and 11 R and 7 lymph node stations cytology that all showed adenocarcinoma consistent with lung primary. PDL-1 highly expressed @ 90%. PET scan 11/13/2022 showed no evidence of disease outside the chest however MRI brain 11/2022 showed multiple brain lesions concerning/suspicious for metastasis. They are all few millimeters in size. Patient does not have any PRINTING PRESSMAN symptoms. She was seen by radiation oncology. We discussed her case: Plan to proceed with systemic treatment first and reassess. 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 Started TABRECTA (capmatinib) 12/11/2022 400 mg bid. Due to kidney impairment and edema, it had to be dose reduced. She is currently taking 200 mg twice a day every other day, alternating with 200 mg once a day every other day while on Lasix 20 mg twice a day (along with supplemental potassium) with improvement and good control of her swelling. Brain MRI 03/2023 showed good response to treatment. PET scan 07/2023 showed excellent response to treatment however mention an uptake and C2 and T1 for which a bone scan done that did also show an abnormality in C2. She is asymptomatic Doing well today. She has been drinking a lot of pops as she used to. Her creatinine today is within normal limits. She has been taking TABRECTA (capmatinib) once a day. Plan: -I believe her kidney function worsening is likely more from a lot of pops drinking rather than capmatinib. -We resume TABRECTA (capmatinib) to be taken daily alternating with twice daily -Keep Lasix at 20 mg twice a day for now -We will keep daily potassium supplements while on Lasix -I will do a C-spine MRI to further characterize the abnormal areas in T1 and C2 showed endplate/bone scans -PET -Brain MRI -Elevate legs -Follow-up with nephrology -Follow-up with PCP -RTC 2 weeks or sooner if needed Assessment & Plan (09/16/2023 3:33 PM EDT): 62 y/o smoker female patient with right NSCLC (adenocarcinoma) diagnosed 10/2022 based on EBUS done on RLL biopsy and 11 R and 7 lymph node stations cytology that all showed adenocarcinoma consistent with lung primary. PDL-1 highly expressed @ 90%. PET scan 11/13/2022 showed no evidence of disease outside the chest however MRI brain 11/2022 showed multiple brain lesions concerning/suspicious for metastasis. They are all few millimeters in size. Patient does not have any PRINTING PRESSMAN symptoms. She was seen by radiation oncology. We discussed her case: Plan to proceed with systemic treatment first and reassess. 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 Started TABRECTA (capmatinib) 12/11/2022 400 mg bid. Due to kidney impairment and edema, it had to be dose reduced. She is currently taking 200 mg twice a day every other day, alternating with 200 mg once a day every other day while on Lasix 20 mg twice a day (along with supplemental potassium) with improvement and good control of her swelling. Brain MRI 03/2023 showed good response to treatment. PET scan 07/2023 showed excellent response to treatment Today, her edema has been better. X-ray showed a fracture of the toe. Doing fairly well otherwise She has been on capmatinib 200mg daily with significant improvement of her edema however her creatinine remained at 1.3 for which she has been in follow-up with nephrology but she reports drinking a lot of pops.. Doing well otherwise today. Plan: -I believe her kidney function worsening is likely polyps drinking related. I asked her to cut down significantly on her polyps and recheck her labs next week. If her kidney function improves, we will resume capmatinib to be taken twice a day alternating with once a day -We will keep going with TABRECTA (capmatinib) -Keep Lasix at 20 mg twice a day for now -We will keep daily potassium supplements while on Lasix -PET -Brain MRI -Elevate legs -Follow-up with nephrology -Refer to Ortho for her toes fracture -RTC 2 weeks or sooner if needed Assessment & Plan (09/02/2023 12:09 PM EDT): 62 y/o smoker female patient with right NSCLC (adenocarcinoma) diagnosed 10/2022 based on EBUS done on RLL biopsy and 11 R and 7 lymph node stations cytology that all showed adenocarcinoma consistent with lung primary. PDL-1 highly expressed @ 90%. PET scan 11/13/2022 showed no evidence of disease outside the chest however MRI brain 11/2022 showed multiple brain lesions concerning/suspicious for metastasis. They are all few millimeters in size. Patient does not have any PRINTING PRESSMAN symptoms. She was seen by radiation oncology. We discussed her case: Plan to proceed with systemic treatment first and reassess. 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 Started TABRECTA (capmatinib) 12/11/2022 400 mg bid. Due to kidney impairment and edema, it had to be dose reduced. She is currently taking 200 mg twice a day every other day, alternating with 200 mg once a day every other day while on Lasix 20 mg twice a day (along with supplemental potassium) with improvement and good control of her swelling. Brain MRI 03/2023 showed good response to treatment. PET scan 07/2023 showed excellent response to treatment Today, her edema has been better. X-ray showed a fracture of the toe. Doing fairly well otherwise She is still alternating capmatinib 200mg BID with 200mg daily. Labs pending from today. Plan: -We will keep going with TABRECTA (capmatinib) at the current dose for no-Keep Lasix at 20 mg twice a day for now -We will keep daily potassium supplements while on Lasix -PET -Brain MRI -Elevate legs -Follow-up with nephrology -Refer to Ortho for her toes fracture -RTC 2 weeks or sooner if needed Assessment & Plan (08/19/2023 10:09 AM EDT): 62 y/o smoker female patient with right NSCLC (adenocarcinoma) diagnosed 10/2022 based on EBUS done on RLL biopsy and 11 R and 7 lymph node stations cytology that all showed adenocarcinoma consistent with lung primary. PDL-1 highly expressed @ 90%. PET scan 11/13/2022 showed no evidence of disease outside the chest however MRI brain 11/2022 showed multiple brain lesions concerning/suspicious for metastasis. They are all few millimeters in size. Patient does not have any PRINTING PRESSMAN symptoms. She was seen by radiation oncology. We discussed her case: Plan to proceed with systemic treatment first and reassess. 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 Started TABRECTA (capmatinib) 12/11/2022 400 mg bid. Due to kidney impairment and edema, it had to be dose reduced. She is currently taking 200 mg twice a day every other day, alternating with 200 mg once a day every other day while on Lasix 20 mg twice a day (along with supplemental potassium) with improvement and good control of her swelling. Brain MRI 03/2023 showed good response to treatment. PET scan 07/2023 showed excellent response to treatment Today, reports that her edema is worse. Also hit something with her right forefoot reporting pain today and her right small toes. Doing fairly well otherwise She is still alternating capmatinib 200mg BID with 200mg daily. Labs pending from today. Plan: -X-ray right foot -Given her significant edema, I will go ahead and hold TABRECTA (capmatinib) for 3 days, then resume once a day for a week before going back to her usual regimen of taking the medicine twice a day alternating with once a day -We will keep going with TABRECTA (capmatinib) at the current dose for no-Keep Lasix at 20 mg twice a day for now -We will keep daily potassium supplements while on Lasix -PET -Brain MRI -Elevate legs -Follow-up with nephrology -RTC 2 weeks or sooner if needed Assessment & Plan (08/19/2023 9:33 AM EDT): 62 y/o smoker female patient with right NSCLC (adenocarcinoma) diagnosed 10/2022 based on EBUS done on RLL biopsy and 11 R and 7 lymph node stations cytology that all showed adenocarcinoma consistent with lung primary. PDL-1 highly expressed @ 90%. PET scan 11/13/2022 showed no evidence of disease outside the chest however MRI brain 11/2022 showed multiple brain lesions concerning/suspicious for metastasis. They are all few millimeters in size. Patient does not have any PRINTING PRESSMAN symptoms. She was seen by radiation oncology. We discussed her case: Plan to proceed with systemic treatment first and reassess. 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 Started TABRECTA (capmatinib) 12/11/2022 400 mg bid. Due to kidney impairment and edema, it had to be dose reduced. She is currently taking 200 mg twice a day every other day, alternating with 200 mg once a day every other day while on Lasix 20 mg twice a day (along with supplemental potassium) with improvement and an overall reasonable/acceptable control of her swelling.. Brain MRI 03/2023 showed good response to treatment. PET scan 07/2023 showed excellent response to treatment Today, reports that her leg swelling is worse. Also said that she had something by her right forefoot Alternating capmatinib 200mg BID with 200mg daily. Labs not done this am, will get as she leaves today Plan: -We will keep going with TABRECTA (capmatinib) at the current dose for now -Keep Lasix at 20 mg twice a day for now -We will keep daily potassium supplements while on Lasix -PET scheduled for tomorrow 07/23/23 -Elevate legs -Follow-up with nephrology -Flush port every 6 weeks -RTC 4 weeks or sooner if needed Assessment & Plan (07/22/2023 10:37 AM EDT): 62 y/o smoker female patient with right NSCLC (adenocarcinoma) diagnosed 10/2022 based on EBUS done on RLL biopsy and 11 R and 7 lymph node stations cytology that all showed adenocarcinoma consistent with lung primary. PDL-1 highly expressed @ 90%. PET scan 11/13/2022 showed no evidence of disease outside the chest however MRI brain 11/2022 showed multiple brain lesions concerning/suspicious for metastasis. They are all few millimeters in size. Patient does not have any PRINTING PRESSMAN symptoms. She was seen by radiation oncology. We discussed her case: Plan to proceed with systemic treatment first and reassess. 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 Started TABRECTA (capmatinib) 12/11/2022 400 mg bid. Due to kidney impairment and edema, it had to be dose reduced. She is currently taking 200 mg twice a day every other day, alternating with 200 mg once a day every other day while on Lasix 20 mg twice a day (along with supplemental potassium) with improvement and good control of her swelling.. PET scan 03/2023 showed good response to treatment Brain MRI 03/2023 showed good response to treatment. Office visit 07/22/23 No complaints today. Feels well. Appetite good. Edema mild. Alternating capmatinib 200mg BID with 200mg daily. Labs not done this am, will get as she leaves today Plan: -We will keep going with TABRECTA (capmatinib) at the current dose for now -Keep Lasix at 20 mg twice a day for now -We will keep daily potassium supplements while on Lasix -PET scheduled for tomorrow 07/23/23 -Elevate legs -Follow-up with nephrology -Flush port every 6 weeks -RTC 4 weeks or sooner if needed Assessment & Plan (06/24/2023 9:13 AM EDT): 62 y/o smoker female patient with right NSCLC (adenocarcinoma) diagnosed 10/2022 based on EBUS done on RLL biopsy and 11 R and 7 lymph node stations cytology that all showed adenocarcinoma consistent with lung primary. PDL-1 highly expressed @ 90%. PET scan 11/13/2022 showed no evidence of disease outside the chest however MRI brain 11/2022 showed multiple brain lesions concerning/suspicious for metastasis. They are all few millimeters in size. Patient does not have any PRINTING PRESSMAN symptoms. She was seen by radiation oncology. We discussed her case: Plan to proceed with systemic treatment first and reassess. 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 Started TABRECTA (capmatinib) 12/11/2022 400 mg bid. Due to kidney impairment and edema, it had to be dose reduced. She is currently taking 200 mg twice a day every other day, alternating with 200 mg once a day every other day while on Lasix 20 mg twice a day (along with supplemental potassium) with improvement and good control of her swelling.. PET scan 03/2023 showed good response to treatment Brain MRI 03/2023 showed good response to treatment Doing well today. Leg swelling is manageable. Creatinine 1.2 today. Patient tells me that she has been keeping herself well-hydrated Currently alternating 200 mg bid and 200 mg daily of capmatinib. Plan: -I believe her kidney function impairment is likely a combination of diuresis and TABRECTA (capmatinib) -We will briefly hold TABRECTA (capmatinib) and Lasix, and recheck labs Wednesday -We will hold TABRECTA (capmatinib) for tonight and tomorrow and resume Wednesday -We will cut Lasix dose by half for today and tomorrow, and resume Wednesday -We will keep daily potassium supplements while on Lasix -Reimage after 2 to 3 months of treatment (this is going to be with both PET scan and MRI brain June 2023) -If no improvement of edema/kidney impairment despite dose modification, will consider going to chemotherapy immunotherapy -Elevate legs -Follow-up with nephrology -Repeat BMP in Wednesday -RTC 2 weeks or sooner if needed Assessment & Plan (06/11/2023 8:44 AM EDT): 62 y/o smoker female patient with right NSCLC (adenocarcinoma) diagnosed 10/2022 based on EBUS done on RLL biopsy and 11 R and 7 lymph node stations cytology that all showed adenocarcinoma consistent with lung primary. PDL-1 highly expressed @ 90%. PET scan 11/13/2022 showed no evidence of disease outside the chest however MRI brain 11/2022 showed multiple brain lesions concerning/suspicious for metastasis. They are all few millimeters in size. Patient does not have any PRINTING PRESSMAN symptoms. She was seen by radiation oncology. We discussed her case: Plan to proceed with systemic treatment first and reassess. 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 Started TABRECTA (capmatinib) 12/11/2022 400 mg bid. Due to kidney impairment and edema, it had to be dose reduced. She is currently taking 200 mg twice a day every other day, alternating with 200 mg once a day every other day while on Lasix 20 mg twice a day (along with supplemental potassium) with improvement and good control of her swelling.. PET scan 03/2023 showed good response to treatment Brain MRI 03/2023 showed good response to treatment Doing well today. Leg swelling is manageable. Creatinine 1.2 today. Patient tells me that she has been keeping herself well-hydrated Currently alternating 200 mg bid and 200 mg daily of capmatinib. Plan: -I believe her kidney function impairment is likely a combination of diuresis and TABRECTA (capmatinib) -We will briefly hold TABRECTA (capmatinib) and Lasix, and recheck labs Wednesday -We will hold TABRECTA (capmatinib) for tonight and tomorrow and resume Wednesday -We will cut Lasix dose by half for today and tomorrow, and resume Wednesday -We will keep daily potassium supplements while on Lasix -Reimage after 2 to 3 months of treatment (this is going to be with both PET scan and MRI brain June 2023) -If no improvement of edema/kidney impairment despite dose modification, will consider going to chemotherapy immunotherapy -Elevate legs -Follow-up with nephrology -Repeat BMP in Wednesday -RTC 2 weeks or sooner if needed Assessment & Plan (05/20/2023 10:08 AM EDT): 62 y/o smoker female patient with right NSCLC (adenocarcinoma) diagnosed 10/2022 based on EBUS done on RLL biopsy and 11 R and 7 lymph node stations cytology that all showed adenocarcinoma consistent with lung primary. PDL-1 highly expressed @ 90%. PET scan 11/13/2022 showed no evidence of disease outside the chest however MRI brain 11/2022 showed multiple brain lesions concerning/suspicious for metastasis. They are all few millimeters in size. Patient does not have any PRINTING PRESSMAN symptoms. She was seen by radiation oncology. We discussed her case: Plan to proceed with systemic treatment first and reassess. 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 Started TABRECTA (capmatinib) 12/11/2022 400 mg bid. Due to kidney impairment and edema, it had to be dose reduced. She is currently taking 200 mg twice a day every other day, alternating with 200 mg once a day every other day while on Lasix 20 mg twice a day (along with supplemental potassium) with improvement and good control of her swelling.. PET scan 03/2023 showed good response to treatment Brain MRI 03/2023 showed good response to treatment Doing well today. Leg swelling is manageable. Creatinine 1.2 today. Patient tells me that she has been keeping herself well-hydrated Currently alternating 200 mg bid and 200 mg daily of capmatinib. Plan: -I believe her kidney function impairment is likely a combination of diuresis and TABRECTA (capmatinib) -We will briefly hold TABRECTA (capmatinib) and Lasix, and recheck labs Wednesday -We will hold TABRECTA (capmatinib) for tonight and tomorrow and resume Wednesday -We will cut Lasix dose by half for today and tomorrow, and resume Wednesday -We will keep daily potassium supplements while on Lasix -Reimage after 2 to 3 months of treatment (this is going to be with both PET scan and MRI brain June 2023) -If no improvement of edema/kidney impairment despite dose modification, will consider going to chemotherapy immunotherapy -Elevate legs -Follow-up with nephrology -Repeat BMP in Wednesday -RTC 2 weeks or sooner if needed Assessment & Plan (04/22/2023 8:35 AM EDT): 62 y/o smoker female patient with right NSCLC (adenocarcinoma) diagnosed 10/2022 based on EBUS done on RLL biopsy and 11 R and 7 lymph node stations cytology that all showed adenocarcinoma consistent with lung primary. PDL-1 highly expressed @ 90%. PET scan 11/13/2022 showed no evidence of disease outside the chest however MRI brain 11/2022 showed multiple brain lesions concerning/suspicious for metastasis. They are all few millimeters in size. Patient does not have any PRINTING PRESSMAN symptoms. She was seen by radiation oncology. We discussed her case: Plan to proceed with systemic treatment first and reassess. 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 Started TABRECTA (capmatinib) 12/11/2022 400 mg bid. Due to kidney impairment and edema, it had to be dose reduced. She is currently taking 200 mg twice a day every other day, alternating with 200 mg once a day every other day while on Lasix 20 mg twice a day (along with supplemental potassium) with improvement and good control of her swelling.. PET scan 03/2023 showed good response to treatment Brain MRI 03/2023 showed good response to treatment Doing well today. Leg swelling has improved after stopping CCB. Labs pending from today. Currently alternating 200 mg bid and 200 mg daily of capmatinib. Plan: -Awaiting labs from today -We will keep going with TABRECTA (capmatinib) at the current dose -Keep Lasix at 20 mg twice a day -We will keep daily potassium supplements while on Lasix -Reimage after 2 to 3 months of treatment (this is going to be with both PET scan and MRI brain June 2023) -If no improvement of edema/kidney impairment despite dose modification, will consider going to chemotherapy immunotherapy -Elevate legs -Follow-up with nephrology -Repeat BMP in one week. -RTC 2 weeks or sooner if needed Assessment & Plan (04/08/2023 9:21 AM EDT): 62 y/o smoker female patient with right NSCLC (adenocarcinoma) diagnosed 10/2022 based on EBUS done on RLL biopsy and 11 R and 7 lymph node stations cytology that all showed adenocarcinoma consistent with lung primary. PDL-1 highly expressed @ 90%. PET scan 11/13/2022 showed no evidence of disease outside the chest however MRI brain 11/2022 showed multiple brain lesions concerning/suspicious for metastasis. They are all few millimeters in size. Patient does not have any PRINTING PRESSMAN symptoms. She was seen by radiation oncology. We discussed her case: Plan to proceed with systemic treatment first and reassess. 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 Started TABRECTA (capmatinib) 12/11/2022 400 mg bid. Due to kidney impairment and edema, it had to be dose reduced. She is currently taking 200 mg twice a day every other day, alternating with 200 mg once a day every other day while on Lasix 20 mg twice a day (along with supplemental potassium) with improvement and good control of her swelling.. PET scan 03/2023 showed good response to treatment Brain MRI 03/2023 showed good response to treatment Doing well today. Leg swelling has improved after stopping CCB. Labs pending from today. Currently alternating 200 mg bid and 200 mg daily of capmatinib. Plan: -Awaiting labs from today -We will keep going with TABRECTA (capmatinib) at the current dose -Keep Lasix at 20 mg twice a day -We will keep daily potassium supplements while on Lasix -Reimage after 2 to 3 months of treatment (this is going to be with both PET scan and MRI brain June 2023) -If no improvement of edema/kidney impairment despite dose modification, will consider going to chemotherapy immunotherapy -Elevate legs -Follow-up with nephrology -Repeat BMP in one week. -RTC 2 weeks or sooner if needed Assessment & Plan (03/25/2023 11:50 AM EDT): Assessment & Plan (03/08/2023 9:03 AM EDT): 62 y/o smoker female patient with right NSCLC (adenocarcinoma) diagnosed 10/2022 based on EBUS done on RLL biopsy and 11 R and 7 lymph node stations cytology that all showed adenocarcinoma consistent with lung primary. PDL-1 highly expressed @ 90%. PET scan 11/13/2022 showed no evidence of disease outside the chest however MRI brain 11/2022 showed multiple brain lesions concerning/suspicious for metastasis. They are all few millimeters in size. Patient does not have any PRINTING PRESSMAN symptoms. She was seen by radiation oncology. We discussed her case: Plan to proceed with systemic treatment first and reassess. 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 Started TABRECTA (capmatinib) 12/11/2022 400 mg bid. Had rise in Cr up to 1.2, for which dose of capmatinib used to 200mg p.o. twice daily. She was also seen by nephrology who held her LAURENT inhibitor's and hydrochlorothiazide. Also with bilateral lower extremity pitting edema that did not response to 20 mg of Lasix. TABRECTA (capmatinib) is currently being taken 200 mg twice a day every other day due to edema/YUMIKO with Lasix being given 20 mg twice a day. Currently she is taking 200 mg, 2 tab in AM and 2 tab in PM, alternating days with 200 mg, 2 tab in AM. On 02/01 her Cr was elevated to 1.2, received 500 ml Normal saline. Cr looks good today, continues to have leg swelling but is managable (could also be couased by caclium channel blockers) She has saw urology since last visit, found to have only renal cyst. Plan: -Keep dose of capmatinib same for now -Keep Lasix at 20 mg twice a day -We will keep daily potassium supplements while on Lasix -Follow up in 2 weeks Reimage after 2 to 3 months of treatment -Elevate legs Assessment & Plan (02/22/2023 9:22 AM EDT): 62 y/o smoker female patient with right NSCLC (adenocarcinoma) diagnosed 10/2022 based on EBUS done on RLL biopsy and 11 R and 7 lymph node stations cytology that all showed adenocarcinoma consistent with lung primary. PDL-1 highly expressed @ 90%. PET scan 11/13/2022 showed no evidence of disease outside the chest however MRI brain 11/2022 showed multiple brain lesions concerning/suspicious for metastasis. They are all few millimeters in size. Patient does not have any PRINTING PRESSMAN symptoms. She was seen by radiation oncology. We discussed her case: Plan to proceed with systemic treatment first and reassess. 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 Started TABRECTA (capmatinib) 12/11/2022 400 mg bid. Had rise in Cr up to 1.2, for which dose of capmatinib used to 200mg p.o. twice daily. She was also seen by nephrology who held her LAURENT inhibitor's and hydrochlorothiazide. Also with bilateral lower extremity pitting edema that did not response to 20 mg of Lasix. TABRECTA (capmatinib) is currently being taken 200 mg twice a day every other day due to edema/YUMIKO with Lasix being given 20 mg twice a day. Currently she is taking 200 mg, 2 tab in AM and 2 tab in PM, alternating days with 200 mg, 2 tab in AM. On 02/01 her Cr was elevated to 1.2, received 500 ml Normal saline. Cr looks good today, continues to have leg swelling but is managable (could also be couased by caclium channel blockers) She has saw urology since last visit, found to have only renal cyst. Plan: -Keep dose of capmatinib same for now -Keep Lasix at 20 mg twice a day -We will keep daily potassium supplements while on Lasix -Follow up in 2 weeks Reimage after 2 to 3 months of treatment -Elevate legs Assessment & Plan (02/08/2023 9:52 AM EDT): 62 y/o smoker female patient with right NSCLC (adenocarcinoma) diagnosed 10/2022 based on EBUS done on RLL biopsy and 11 R and 7 lymph node stations cytology that all showed adenocarcinoma consistent with lung primary. PDL-1 highly expressed @ 90%. PET scan 11/13/2022 showed no evidence of disease outside the chest however MRI brain 11/2022 showed multiple brain lesions concerning/suspicious for metastasis. They are all few millimeters in size. Patient does not have any PRINTING PRESSMAN symptoms. She was seen by radiation oncology. We discussed her case: Plan to proceed with systemic treatment first and reassess. 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 Started TABRECTA (capmatinib) 12/11/2022 400 mg bid. Had rise in Cr up to 1.2, for which dose of capmatinib used to 200mg p.o. twice daily. She was also seen by nephrology who held her LAURENT inhibitor's and hydrochlorothiazide. Also with bilateral lower extremity pitting edema that did not response to 20 mg of Lasix. TABRECTA (capmatinib) is currently being taken 200 mg twice a day every other day due to edema/YUMIKO with Lasix being given 20 mg twice a day. Currently she is taking 200 mg, 2 tab in AM and 2 tab in PM, alternating days with 200 mg, 2 tab in AM. On 02/01 her Cr was elevated to 1.2, received 500 ml Normal saline. Cr looks good today, continues to have leg swelling but is managable (could also be couased by caclium channel blockers) She has saw urology since last visit, found to have only renal cyst. Plan: -Keep dose of capmatinib same for now -Keep Lasix at 20 mg twice a day -We will keep daily potassium supplements while on Lasix -Follow up in 2 weeks Reimage after 2 to 3 months of treatment -Elevate legs Assessment & Plan (01/25/2023 8:58 AM EDT): 62 y/o smoker female patient with right NSCLC (adenocarcinoma) diagnosed 10/2022 based on EBUS done on RLL biopsy and 11 R and 7 lymph node stations cytology that all showed adenocarcinoma consistent with lung primary. PDL-1 highly expressed @ 90%. PET scan 11/13/2022 showed no evidence of disease outside the chest however MRI brain 11/2022 showed multiple brain lesions concerning/suspicious for metastasis. They are all few millimeters in size. Patient does not have any PRINTING PRESSMAN symptoms. She was seen by radiation oncology. We discussed her case: Plan to proceed with systemic treatment first and reassess. 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 Started TABRECTA (capmatinib) 12/11/2022 400 mg bid. Had rise in Cr up to 1.2. Was instructed to stop on 12/21/22, but did not stop until last week. She also saw nephrology and was recommended to stop the lisinoprl and hydrochlorothiazide. She did make these changes on 12/24/22. On 12/29/22, Cr was 0.8, TABRECTA (capmatinib) was restarted, but only at 200 mg bid. Hydrochlorothiazide and lisinopril continued to be held. Today, her Cr is back up to 1.1 today. She is having leg swelling since increasing the Norvasc, but is back to normal in the morning. Plan: -Hold chemo again -Hydrate today -Continue to hold lisinopril and hydrochlorothiazide -Recheck labs and see Dr. Chaz Soriano on Wednesday -Elevate legs, compression stockings for leg swelling Assessment & Plan (01/18/2023 8:49 AM EST): 62 y/o smoker female patient with right NSCLC (adenocarcinoma) diagnosed 10/2022 based on EBUS done on RLL biopsy and 11 R and 7 lymph node stations cytology that all showed adenocarcinoma consistent with lung primary. PDL-1 highly expressed @ 90%. PET scan 11/13/2022 showed no evidence of disease outside the chest however MRI brain 11/2022 showed multiple brain lesions concerning/suspicious for metastasis. They are all few millimeters in size. Patient does not have any PRINTING PRESSMAN symptoms. She was seen by radiation oncology. We discussed her case: Plan to proceed with systemic treatment first and reassess. 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 Started TABRECTA (capmatinib) 12/11/2022 400 mg bid. Had rise in Cr up to 1.2. Was instructed to stop on 12/21/22, but did not stop until last week. She also saw nephrology and was recommended to stop the lisinoprl and hydrochlorothiazide. She did make these changes on 12/24/22. On 12/29/22, Cr was 0.8, TABRECTA (capmatinib) was restarted, but only at 200 mg bid. Hydrochlorothiazide and lisinopril continued to be held. Today, her Cr is back up to 1.1 today. She is having leg swelling since increasing the Norvasc, but is back to normal in the morning. Plan: -Hold chemo again -Hydrate today -Continue to hold lisinopril and hydrochlorothiazide -Recheck labs and see Dr. Chaz Soriano on Wednesday -Elevate legs, compression stockings for leg swelling Assessment & Plan (01/08/2023 10:55 AM EST): 62 y/o smoker female patient with right NSCLC (adenocarcinoma) diagnosed 10/2022 based on EBUS done on RLL biopsy and 11 R and 7 lymph node stations cytology that all showed adenocarcinoma consistent with lung primary. PDL-1 highly expressed @ 90%. PET scan 11/13/2022 showed no evidence of disease outside the chest however MRI brain 11/2022 showed multiple brain lesions concerning/suspicious for metastasis. They are all few millimeters in size. Patient does not have any PRINTING PRESSMAN symptoms. She was seen by radiation oncology. We discussed her case: Plan to proceed with systemic treatment first and reassess. 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 Started TABRECTA (capmatinib) 12/11/2022 400 mg bid. Had rise in Cr up to 1.2. Was instructed to stop on 12/21/22, but did not stop until last week. She also saw nephrology and was recommended to stop the lisinoprl and hydrochlorothiazide. She did make these changes on 12/24/22. On 12/29/22, Cr was 0.8, TABRECTA (capmatinib) was restarted, but only at 200 mg bid. Hydrochlorothiazide and lisinopril continued to be held. Today, her Cr is back up to 1.1 today. She is having leg swelling since increasing the Norvasc, but is back to normal in the morning. Plan: -Hold chemo again -Hydrate today -Continue to hold lisinopril and hydrochlorothiazide -Recheck labs and see Dr. 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 Questionable short segmental high-grade stenosis versus occlusion involving the proximal right middle cerebral artery. CTA neck: negative MRI brain: Positive study for several tiny acute lacunar infarcts including right cerebellum, right occipital lobe, right posterior frontal-parietal white matter. No hemorrhage or significant mass effect. Small area of ill-defined enhancement with only minimal T2 hyperintensity, without significant mass effect, right parietal lobe subcortical region (series 10 image 17, 18, series 11 image 18) appearance suggests possible area of subacute subcortical infarction rather than metastatic lesion. Suggest short-term follow-up. No other areas of suspicious abnormal enhancement. Underlying atrophy, white matter chronic ischemia, old lacunar infarcts. Previous right frontal craniotomy. Echocardiogram: 06/13/25 with EF 60-65%. Moderately calcified mitral valve annulus. LDL: 26 Hemoglobin A1c: 5.5 PT/OT/ST on board IPR pending; after rehab, plan is to return home with daughter Known a fib but unable to be anticoagulated due to thrombocytopenia so recommend watchman device placement Epistaxis 06/13/2025 06/18/2025 Overview (06/15/2025): Resolved ENT evaluated YUMIKO (acute kidney injury) 06/12/2025 Overview (06/15/2025): Resolved Colitis 05/15/2025 06/05/2025 Gross hematuria 03/31/2025 04/06/2025 Overview (03/31/2025): Monitor output, signs of obstruction or infection Consult submitted for Urology to perform cystoscopy biopsy Shall transfuse PRBCs if Hgb drops significantly or symptomatic anemia develops. Need to avoid nephrotoxic and anticoagulant agents until bleeding controlled. Bladder mass 03/31/2025 04/06/2025 Overview (03/31/2025): Irregular posterior bladder wall lesion on CT concerning for malignancy. Plan: Urology consult submitted for inpatient cystoscopy with possible biopsy by urology. History of pulmonary embolism 03/31/2025 06/15/2025 Overview (03/31/2025): Diagnosed during hospitalization two weeks ago; on therapeutic enoxaparin, now held due to active bleeding. Hypercoagulable state 03/31/20252024 Overview (03/31/2025): High VTE risk due to active malignancy, recent PE, and hospitalization. Plan: Since anticoagulation cannot be resumed soon, shall submit IR consult for IVC filter placement. Pancytopenia 03/31/2025 06/15/2025 Overview (03/31/2025): Plan: Likely secondary to gross hematuria; hemoglobin will be trended. History of chemotherapy 03/31/202503/16 Overview (03/31/2025): Shall monitor for chemotherapy related cytopenias (CBC with diff). Neutropenic precautions if ANC <500. UTI (urinary tract infection) 03/31/2025 04/06/2025 Overview (03/31/2025): Presumptive diagnosis based on hematuria, suprapubic tenderness, leukocytosis, and concern for sepsis. Plan - Continue empiric IV antibiotic(Zosyn) - Shall need to adjust antibiotic per urine culture and sensitivity. - Shall monitor for fever, renal function, and urine output. Sepsis due to pneumonia 03/31/202505/16 Overview (03/31/2025): Sepsis (Secondary to UTI) SIRS Criteria Met Plan: Follow sepsis protocol. Suprapubic pain 03/31/2025 04/25/2025 Overview (03/31/2025): Likely bladder distension from clots, UTI, or bladder mass. Plan: - Pain control: acetaminophen preferred; opioids prn. Diabetes mellitus 03/31/2025 06/05/2025 Overview (03/31/2025): Noted elevated blood glucose during ED course. Plan: Shall initiate sliding scale insulin (SSI) during hospitalization. COPD (chronic obstructive pulmonary disease) 07/30/2025 Chronic hypoxic respiratory failure 03/31/2025 06/05/2025 Overview (03/31/2025): The patient is on home oxygen 2L/mnt. Plan: Continue supplemental oxygen to maintain Spo2 90-92% Post-radiation pneumonitis 03/21/2025 0 04/25/2025 Acute pulmonary embolism wit hout acute cor pulmonale 03/21/2025 04/25/2025 Shortness of breath 03/19/2025 04/25/20 25 Metastasis to brain 03/01/2025 06/15/20 25 Non-small cell cancer of right lung 03/01/2025 06/15/2025 Assessment & Plan (05/08/2025 9:46 AM EDT): 64 y/o smoker female patient with right NSCLC (adenocarcinoma) diagnosed 10/2022 based on EBUS done on RLL biopsy and 11 R and 7 lymph node stations cytology that all showed adenocarcinoma consistent with lung primary. PDL-1 highly expressed @ 90%. PET scan 11/13/2022 showed no evidence of disease outside the chest however MRI brain 11/2022 showed multiple brain lesions concerning/suspicious for metastasis. They are all few millimeters in size. Patient does not have any PRINTING PRESSMAN symptoms. She was seen by radiation oncology. We discussed her case: Plan to proceed with systemic treatment first and reassess. 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 Started TABRECTA (capmatinib) 12/11/2022 400 mg bid. Due to [...] Last XRT 03/23/2025 But radiation stopped with 4 treatments short apparently secondary to acute events and/or [...] get another brain MRI rechecked June 2025. Today, patient extremely fatigue looks pale. Hemoglobin 4.4. Platelet 36. Currently on no anticoagulation due to bladder bleeding. Patient said had significant bladder bleeding before resolved. Office visit 05/08/25 Seeing today in follow up. Feeling better. Denies any fever, bleeding, diarrhea. Reports feeling cold. Denies any signs of infection. Labs have finally recovered today. Lungs with rhonchi. Will Rx mucinex to help break up the mucus. Plan: Proceed with treatment today but at 80% with G-CSF support Give 1 IV hydration today RX mucinex Will follow up in 2 weeks for tolerance check Treatment plan per Dr. Chaz Soriano: - Will finish a total of 4 cycles of combined chemoimmunotherapy treatment before we go to immunotherapy maintenance - Reimaging after 3rd-4th cycle - Continue follow-up with neurosurgery at as planned for that short interval MRI brain currently scheduled June 2025 - Labs before each chemo Assessment & Plan (05/01/2025 9:26 AM EDT): 64 y/o smoker female patient with right NSCLC (adenocarcinoma) diagnosed 10/2022 based on EBUS done on RLL biopsy and 11 R and 7 lymph node stations cytology that all showed adenocarcinoma consistent with lung primary. PDL-1 highly expressed @ 90%. PET scan 11/13/2022 showed no evidence of disease outside the chest however MRI brain 11/2022 showed multiple brain lesions concerning/suspicious for metastasis. They are all few millimeters in size. Patient does not have any PRINTING PRESSMAN symptoms. She was seen by radiation oncology. We discussed her case: Plan to proceed with systemic treatment first and reassess. 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 Started TABRECTA (capmatinib) 12/11/2022 400 mg bid. Due to [...] Last XRT 03/23/2025 But radiation stopped with 4 treatments short apparently secondary to acute events and/or [...] get another brain MRI rechecked June 2025. Today, patient extremely fatigue looks pale. Hemoglobin 4.4. Platelet 36. Currently on no anticoagulation due to bladder bleeding. Patient said had significant bladder bleeding before resolved. Office visit 05/01/25 Seeing today in follow up. Feeling better. Denies any fever, bleeding, diarrhea. Hgb improved today, but platelets still at 51K. Plan: Hold treatment for 1 week - I will reevaluate in a week. If feels and looks better and her cytopenia improved, will consider third cycle of treatment but at 80% +/- G-CSF support Treatment plan per Dr. Chaz Soriano: - Will finish a total of 4 cycles of combined chemoimmunotherapy treatment before we go to immunotherapy maintenance - Reimaging after 3rd-4th cycle - Continue follow-up with neurosurgery at as planned for that short interval MRI brain currently scheduled June 2025 - Labs before each chemo Non-small cell cancer of right lung 01/25/2025 02/28/2025 Multifocal pneumonia 01/10/2025 025 Pneumonia of both lungs due to infectious organism 04/26/2024 05/09/2024 NSTEMI (non-ST elevated myoc ardial infarction) 04/20/2024 05/09/2024 Overview (04/20/2024): Cardiology to evaluate EKG without acute changes Troponin elevated at 2391 and will be trended Heparin drip deferred per cardiology as already on Xarelto Obtain repeat echocardiogram Check LDL and hemoglobin A1c as well as TSH Tobacco use 04/20/2024 04/25/2025 COPD (chronic obstructive pulmonary disease) 06/26/2025 Overview (06/15/2025): Oxygen dependent: yes Incentive spirometer 10 times per hour while awake On steroids, nebulizer treatments Maintain oxygen to keep saturation 88 to 92% using least oxygen possible Encourage avoidance of tobacco products Eosinophil count 40 cells/?L Alpha-1 antitrypsin evaluation not available LABA+LAMA on discharge (formoterol/aclidinium bid) ICS on discharge for eos >300 cells/?L (fluticasone/umeclidinium/vilaterol daily) Daliresp (if exacerbations on maximum therapy) History of lung cancer 04/12/202404/06 Nicotine dependence, cigaret aaron, uncomplicated 04/12/2024 04/20/2024 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 Assessment & Plan (01/05/2023 10:29 AM EST): -- Capmatinib can cause rise in creatinine in 65% of the patients. -- Also the patient is on hydrochlorothiazide and lisinopril which is probably contributing to it. -- Recommend hold them for a week and repeat BMP Assessment & Plan (12/29/2022 9:30 AM EST): -- Capmatinib can cause rise in creatinine in 65% of the patients. -- Also the patient is on hydrochlorothiazide and lisinopril which is probably contributing to it. -- Recommend hold them for a week and repeat BMP Assessment & Plan (12/24/2022 9:42 AM EST): -- Capmatinib can cause rise in creatinine in 65% of the patients. -- Also the patient is on hydrochlorothiazide and lisinopril which is probably contributing to it. -- Recommend hold them for a week and repeat BMP Assessment & Plan (12/23/2022 11:45 AM EST): -- Capmatinib can cause rise in creatinine in 65% of the patients. -- Also the patient is on hydrochlorothiazide and lisinopril which is probably contributing to it. -- Recommend hold them for a week and repeat BMP Chronic kidney disease, stage 2 (mild) 12/23/2022 07/30/2025 Renal cyst 11/19/2022 03/25/2023 Malignant neoplasm of overla pping sites of right lung 11/19/2022 03/25/2023 Assessment & Plan (03/25/2023 11:02 AM EDT): 62 y/o smoker female patient with right NSCLC (adenocarcinoma) diagnosed 10/2022 based on EBUS done on RLL biopsy and 11 R and 7 lymph node stations cytology that all showed adenocarcinoma consistent with lung primary. PDL-1 highly expressed @ 90%. PET scan 11/13/2022 showed no evidence of disease outside the chest however MRI brain 11/2022 showed multiple brain lesions concerning/suspicious for metastasis. They are all few millimeters in size. Patient does not have any PRINTING PRESSMAN symptoms. She was seen by radiation oncology. We discussed her case: Plan to proceed with systemic treatment first and reassess. 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 Started TABRECTA (capmatinib) 12/11/2022 400 mg bid. Had rise in Cr up to 1.2. Was instructed to stop on 12/21/22, but did not stop until last week. She also saw nephrology and was recommended to stop the lisinoprl and hydrochlorothiazide. She did make these changes on 12/24/22. On 12/29/22, Cr was 0.8, TABRECTA (capmatinib) was restarted, but only at 200 mg bid. Hydrochlorothiazide and lisinopril continued to be held. Today, her Cr is back up to 1.1 today. She is having leg swelling since increasing the Norvasc, but is back to normal in the morning. Plan: -Hold chemo again -Hydrate today -Continue to hold lisinopril and hydrochlorothiazide -Recheck labs and see Dr. Chaz Soriano on Wednesday -Elevate legs, compression stockings for leg swelling Assessment & Plan (03/08/2023 9:03 AM EDT): 62 y/o smoker female patient with right NSCLC (adenocarcinoma) diagnosed 10/2022 based on EBUS done on RLL biopsy and 11 R and 7 lymph node stations cytology that all showed adenocarcinoma consistent with lung primary. PDL-1 highly expressed @ 90%. PET scan 11/13/2022 showed no evidence of disease outside the chest however MRI brain 11/2022 showed multiple brain lesions concerning/suspicious for metastasis. They are all few millimeters in size. Patient does not have any PRINTING PRESSMAN symptoms. She was seen by radiation oncology. We discussed her case: Plan to proceed with systemic treatment first and reassess. 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 Started TABRECTA (capmatinib) 12/11/2022 400 mg bid. Had rise in Cr up to 1.2. Was instructed to stop on 12/21/22, but did not stop until last week. She also saw nephrology and was recommended to stop the lisinoprl and hydrochlorothiazide. She did make these changes on 12/24/22. On 12/29/22, Cr was 0.8, TABRECTA (capmatinib) was restarted, but only at 200 mg bid. Hydrochlorothiazide and lisinopril continued to be held. Today, her Cr is back up to 1.1 today. She is having leg swelling since increasing the Norvasc, but is back to normal in the morning. Plan: -Hold chemo again -Hydrate today -Continue to hold lisinopril and hydrochlorothiazide -Recheck labs and see Dr. Chaz Soriano on Wednesday -Elevate legs, compression stockings for leg swelling Assessment & Plan (02/22/2023 9:22 AM EDT): 62 y/o smoker female patient with right NSCLC (adenocarcinoma) diagnosed 10/2022 based on EBUS done on RLL biopsy and 11 R and 7 lymph node stations cytology that all showed adenocarcinoma consistent with lung primary. PDL-1 highly expressed @ 90%. PET scan 11/13/2022 showed no evidence of disease outside the chest however MRI brain 11/2022 showed multiple brain lesions concerning/suspicious for metastasis. They are all few millimeters in size. Patient does not have any PRINTING PRESSMAN symptoms. She was seen by radiation oncology. We discussed her case: Plan to proceed with systemic treatment first and reassess. 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 Started TABRECTA (capmatinib) 12/11/2022 400 mg bid. Had rise in Cr up to 1.2. Was instructed to stop on 12/21/22, but did not stop until last week. She also saw nephrology and was recommended to stop the lisinoprl and hydrochlorothiazide. She did make these changes on 12/24/22. On 12/29/22, Cr was 0.8, TABRECTA (capmatinib) was restarted, but only at 200 mg bid. Hydrochlorothiazide and lisinopril continued to be held. Today, her Cr is back up to 1.1 today. She is having leg swelling since increasing the Norvasc, but is back to normal in the morning. Plan: -Hold chemo again -Hydrate today -Continue to hold lisinopril and hydrochlorothiazide -Recheck labs and see Dr. Chaz Soriano on Wednesday -Elevate legs, compression stockings for leg swelling Assessment & Plan (02/08/2023 8:49 AM EDT): 62 y/o smoker female patient with right NSCLC (adenocarcinoma) diagnosed 10/2022 based on EBUS done on RLL biopsy and 11 R and 7 lymph node stations cytology that all showed adenocarcinoma consistent with lung primary. PDL-1 highly expressed @ 90%. PET scan 11/13/2022 showed no evidence of disease outside the chest however MRI brain 11/2022 showed multiple brain lesions concerning/suspicious for metastasis. They are all few millimeters in size. Patient does not have any PRINTING PRESSMAN symptoms. She was seen by radiation oncology. We discussed her case: Plan to proceed with systemic treatment first and reassess. 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 Started TABRECTA (capmatinib) 12/11/2022 400 mg bid. Had rise in Cr up to 1.2. Was instructed to stop on 12/21/22, but did not stop until last week. She also saw nephrology and was recommended to stop the lisinoprl and hydrochlorothiazide. She did make these changes on 12/24/22. On 12/29/22, Cr was 0.8, TABRECTA (capmatinib) was restarted, but only at 200 mg bid. Hydrochlorothiazide and lisinopril continued to be held. Today, her Cr is back up to 1.1 today. She is having leg swelling since increasing the Norvasc, but is back to normal in the morning. Plan: -Hold chemo again -Hydrate today -Continue to hold lisinopril and hydrochlorothiazide -Recheck labs and see Dr. Chaz Soriano on Wednesday -Elevate legs, compression stockings for leg swelling Assessment & Plan (01/25/2023 8:58 AM EDT): 62 y/o smoker female patient with right NSCLC (adenocarcinoma) diagnosed 10/2022 based on EBUS done on RLL biopsy and 11 R and 7 lymph node stations cytology that all showed adenocarcinoma consistent with lung primary. PDL-1 highly expressed @ 90%. PET scan 11/13/2022 showed no evidence of disease outside the chest however MRI brain 11/2022 showed multiple brain lesions concerning/suspicious for metastasis. They are all few millimeters in size. Patient does not have any PRINTING PRESSMAN symptoms. She was seen by radiation oncology. We discussed her case: Plan to proceed with systemic treatment first and reassess. 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 Started TABRECTA (capmatinib) 12/11/2022 400 mg bid. Had rise in Cr up to 1.2. Was instructed to stop on 12/21/22, but did not stop until last week. She also saw nephrology and was recommended to stop the lisinoprl and hydrochlorothiazide. She did make these changes on 12/24/22. On 12/29/22, Cr was 0.8, TABRECTA (capmatinib) was restarted, but only at 200 mg bid. Hydrochlorothiazide and lisinopril continued to be held. Today, her Cr is back up to 1.1 today. She is having leg swelling since increasing the Norvasc, but is back to normal in the morning. Plan: -Hold chemo again -Hydrate today -Continue to hold lisinopril and hydrochlorothiazide -Recheck labs and see Dr. Chaz Soriano on Wednesday -Elevate legs, compression stockings for leg swelling Assessment & Plan (01/18/2023 8:49 AM EST): 62 y/o smoker female patient with right NSCLC (adenocarcinoma) diagnosed 10/2022 based on EBUS done on RLL biopsy and 11 R and 7 lymph node stations cytology that all showed adenocarcinoma consistent with lung primary. PDL-1 highly expressed @ 90%. PET scan 11/13/2022 showed no evidence of disease outside the chest however MRI brain 11/2022 showed multiple brain lesions concerning/suspicious for metastasis. They are all few millimeters in size. Patient does not have any PRINTING PRESSMAN symptoms. She was seen by radiation oncology. We discussed her case: Plan to proceed with systemic treatment first and reassess. 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 Started TABRECTA (capmatinib) 12/11/2022 400 mg bid. Had rise in Cr up to 1.2. Was instructed to stop on 12/21/22, but did not stop until last week. She also saw nephrology and was recommended to stop the lisinoprl and hydrochlorothiazide. She did make these changes on 12/24/22. On 12/29/22, Cr was 0.8, TABRECTA (capmatinib) was restarted, but only at 200 mg bid. Hydrochlorothiazide and lisinopril continued to be held. Today, her Cr is back up to 1.1 today. She is having leg swelling since increasing the Norvasc, but is back to normal in the morning. Plan: -Hold chemo again -Hydrate today -Continue to hold lisinopril and hydrochlorothiazide -Recheck labs and see Dr. Chaz Soriano on Wednesday -Elevate legs, compression stockings for leg swelling Assessment & Plan (01/08/2023 10:54 AM EST): 62 y/o smoker female patient with right NSCLC (adenocarcinoma) diagnosed 10/2022 based on EBUS done on RLL biopsy and 11 R and 7 lymph node stations cytology that all showed adenocarcinoma consistent with lung primary. PDL-1 highly expressed @ 90%. PET scan 11/13/2022 showed no evidence of disease outside the chest however MRI brain 11/2022 showed multiple brain lesions concerning/suspicious for metastasis. They are all few millimeters in size. Patient does not have any PRINTING PRESSMAN symptoms. She was seen by radiation oncology. We discussed her case: Plan to proceed with systemic treatment first and reassess. 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 Started TABRECTA (capmatinib) 12/11/2022 400 mg bid. Had rise in Cr up to 1.2. Was instructed to stop on 12/21/22, but did not stop until last week. She also saw nephrology and was recommended to stop the lisinoprl and hydrochlorothiazide. She did make these changes on 12/24/22. On 12/29/22, Cr was 0.8, TABRECTA (capmatinib) was restarted, but only at 200 mg bid. Hydrochlorothiazide and lisinopril continued to be held. Today, her Cr is back up to 1.1 today. She is having leg swelling since increasing the Norvasc, but is back to normal in the morning. Plan: -Hold chemo again -Hydrate today -Continue to hold lisinopril and hydrochlorothiazide -Recheck labs and see Dr. Chaz Soriano on Wednesday -Elevate legs, compression stockings for leg swelling Atrial fibrillation 11/03/2022 06/26/20 25 Overview (06/15/2025): Rate controlled C2V >2 Not on AC due to thrombocytopenia and bleeding Recommend watchman device placement Acute respiratory failure with hypoxia 10/31/2022 01/13/2025 Overview (04/20/2024): Oxygen supplementation as required IS 10x/hr [place] Nebs, steroids RSV/COVID/flu swab negative ABG ok CXR with moderate bilateral infiltrates with atelectasis Hemoptysis 10/31/2022 11/11/2022 Pneumothorax after biopsy 10/30/2022 Chest mass 10/26/2022 11/11/2022 Coronary artery disease invo lving [place] coronary artery of [place] heart without angina pectoris 04/03/2022 04/25/2025 Overview (12/20/2024): 2014 Cath Left main 30% with FFR 1.93, LAD diffuse disease, circumflex and RCA ok. Cath 04/2024: Nondominant right with a 70% lesion 20% ostial left main. No hemodynamically significant disease of the left anterior descending or the left circumflex. Preserved left ventricular systolic function with ejection fraction 55 to 60% Assessment & Plan (12/20/2024 12:13 PM EST): No anginal complaints Essential hypertension 04/03/202206/26 Overview (06/15/2025): Adjust prn Assessment & Plan (12/20/2024 12:14 PM EST): adequately controlled Assessment & Plan (01/05/2023 10:29 AM EST): -- On norvasc 5mg daily. -- Given YUMIKO, I would like hold lisinopril and hydrochlorothiazide and increase norvasc to 10mg daily. But the patient would like to talk to Dr. Chaz Soriano and Dr. Mack before stopping them. Assessment & Plan (12/29/2022 9:30 AM EST): -- On norvasc 5mg daily. -- Given YUMIKO, I would like hold lisinopril and hydrochlorothiazide and increase norvasc to 10mg daily. But the patient would like to talk to Dr. Chaz Soriano and Dr. Mack before stopping them. Assessment & Plan (12/24/2022 9:42 AM EST): -- On norvasc 5mg daily. -- Given YUMIKO, I would like hold lisinopril and hydrochlorothiazide and increase norvasc to 10mg daily. But the patient would like to talk to Dr. Chaz Soriano and Dr. Mack before stopping them. Assessment & Plan (12/23/2022 11:44 AM EST): -- On norvasc 5mg daily. -- Given YUMIKO, I would like hold lisinopril and hydrochlorothiazide and increase norvasc to 10mg daily. But the patient would like to talk to Dr. Chaz Soriano and Dr. Mack before stopping them. Myocardial infarction 04/03/20222021 PVD (peripheral vascular disease) 04/03/2022 06/05/2025 Overview (04/20/2024): Continue home medication RLS (restless legs syndrome) 04/03/2022 05/09/2024 Overview (04/20/2024): Continue home medication Encounters Date Type Department Care Team Description 08/20/2025 Telephone [facility] SENIOR DIRECTOR MARKETING/REHAB PRACTICE [address], [address] [place] [phone] Nuvia Johnson MD Glucophage 08/16/2025 Telephone [facility] SENIOR DIRECTOR MARKETING/REHAB PRACTICE [address], [address] [place] [phone] Bri Hogue Med Refill 08/15/2025 Abstract [facility] ORTHOPEDIC PODIATRY PRACTICE [address], [address] [place] [phone] Yazan Castro DPM 08/13/2025 2:45 PM EDT Office Visit [facility] ORTHOPEDIC PODIATRY PRACTICE [address], [address] [place] [phone] Yazan Castro DPM Ingrown right big toenail; Nail dystrophy; Right foot pain; Left foot pain 08/13/2025 Travel 08/10/2025 Telephone [facility] ORTHOPEDIC PRACTICE [address], [address] [place] [phone] Yazan Castro DPM 08/08/2025 10:30 AM EDT - 08/08/2025 11:59 PM EDT Hospital Encounter [facility] MEDICAL ONCOLOGY [address], [address] [place] [phone] Non-small cell lung cancer, unspecified laterality (Primary Dx) Discharge Disposition: Still a Patient 08/08/2025 8:15 AM EDT - 08/08/2025 10:29 AM EDT Hospital Encounter [facility] MEDICAL ONCOLOGY [address], [address] [place] [phone] Non-small cell lung cancer, unspecified laterality Discharge Disposition: Home or Self Care 08/08/2025 Travel 08/06/2025 2:30 PM EDT Office Visit [facility] NEUROLOGY PRACTICE [address], [address] [place] [phone] Patience Wang NP Myoclonus (Primary Dx) 08/06/2025 9:38 AM EDT - 08/06/2025 11:59 PM EDT Hospital Encounter [facility] [address], [place] [phone] Non-small cell cancer of right lung Discharge Disposition: Home or Self Care 08/06/2025 Travel 07/30/2025 10:00 AM EDT Office Visit [facility] ONCOLOGY PRACTICE [address], 10th [place] [address] Rachel Pagan MD Non-small cell cancer of right lung (Primary Dx); Thrombocytopenia 07/30/2025 9:38 AM EDT - 07/30/2025 11:59 PM EDT Hospital Encounter [facility] MEDICAL ONCOLOGY [address], [address] [place] [phone] Non-small cell cancer of right lung; Stage IV squamous cell carcinoma of lung, unspecified laterality; Non-small cell lung cancer, unspecified laterality Discharge Disposition: Still a Patient 07/30/2025 Travel 07/23/2025 Travel 07/20/2025 11:30 AM EDT Office Visit [facility] CARDIOLOGY PRACTICE [address], [address] [facility] [address] Ky Jewell MD Paroxysmal atrial fibrillation (Primary Dx) 07/20/2025 7:33 AM EDT - 07/20/2025 11:59 PM EDT Hospital Encounter [facility] [address], [place] [place] [phone] Non-small cell cancer of right lung Discharge Disposition: Home or Self Care 07/20/2025 7:33 AM EDT - 07/20/2025 11:59 PM EDT Hospital Encounter [facility] [address], [place] [facility] [place] [phone] Discharge Disposition: Home or Self Care 07/20/2025 Travel 07/18/2025 3:30 PM EDT Office Visit [facility] CARDIOLOGY PRACTICE [address], [address] [place] [address] Allyn Toribio, GRAHAM Coronary artery disease involving [place] coronary artery of [place] heart without angina pectoris (Primary Dx); Essential hypertension; 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, bi; Non-small cell cancer of right lung; Paroxysmal atrial fibrillation 07/18/2025 10:30 AM EDT - 07/18/2025 11:59 PM EDT Hospital Encounter [facility] MEDICAL ONCOLOGY [address], [address] [place] [phone] Non-small cell lung cancer, unspecified laterality (Primary Dx) Discharge Disposition: Still a Patient 07/18/2025 10:13 AM EDT - 07/18/2025 10:29 AM EDT Hospital Encounter [facility] MEDICAL ONCOLOGY [address], [address] [place] [phone] Discharge Disposition: Still a Patient 07/18/2025 10:00 AM EDT - 07/18/2025 10:12 AM EDT Hospital Encounter [facility] MEDICAL ONCOLOGY [address], [address] [place] [phone] Stage IV squamous cell carcinoma of lung, unspecified laterality Discharge Disposition: Still a Patient 07/18/2025 Travel 07/04/2025 Orders Only [facility] [address], [address] [place] [phone] Rachel Pagan MD Infected nailbed of toe, left 07/03/2025 Telephone [facility] [address], [address] [place] [phone] Rachel Pagan MD 07/02/2025 Patient Outreach [facility] [address], [address] [place] [phone] Rachel Pagan MD 06/28/2025 10:00 AM EDT Office Visit [facility] NEPHROLOGY PRACTICE [address] [place] [address] Wesley Urbina MD Chronic kidney disease, stage 2 (mild) (Primary Dx); Non-small cell cancer of right lung; Chronic combined systolic and diastolic heart failure; Chronic obstructive pulmonary disease, unspecified COPD type 06/28/2025 Travel 06/28/2025 Patient Outreach [facility] [address], [address] [place] [address] [place] [phone] Rachel Pagan MD 06/26/2025 10:30 AM EDT - 06/26/2025 11:59 PM EDT Hospital Encounter [facility] [address], [address] [place] [address] [facility] [phone] Non-small cell lung cancer, unspecified laterality Discharge Disposition: Still a Patient 06/26/2025 9:00 AM EDT Office Visit [facility] [address], [address] [place] [address] [facility] [phone] Rachel Pagan MD Non-small cell cancer of right lung (Primary Dx); Stage IV squamous cell carcinoma of lung, unspecified laterality; Non-small cell lung cancer, unspecified laterality 06/26/2025 8:15 AM EDT - 06/26/2025 10:29 AM EDT Hospital Encounter [facility] [address], [address] [place], [place] [address] [phone] Stage IV squamous cell carcinoma of lung, unspecified laterality Discharge Disposition: Still a Patient 06/26/2025 Patient Outreach [facility] ONCOLOGY PRACTICE [address], [address] [place] [address] [facility] [phone] Rachel Pagan MD 06/26/2025 Travel 06/25/2025 Orders Only [facility] [address], [address] [place] [address] [facility] [phone] Rachel Pagan MD 06/25/2025 Telephone [facility] [address], [address] [place] [address] [facility] [phone] Rachel Pagan MD 06/20/2025 Plan of Care Documentation [facility] [address], [address] [place] [address] [place] [phone] 06/18/2025 4:26 PM EDT - 06/23/2025 11:00 AM EDT Hospital Encounter 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 (Primary Dx); Non-small cell lung cancer, unspecified laterality; Thrombocytopenia Discharge Disposition: Home or Self Care 06/12/2025 2:37 AM EDT - 06/18/2025 4:20 PM EDT Hospital Encounter [facility] 7B MEDICAL UNIT [address] [place] [address] Don Nichols DO Nairn, Todd H., MD Pence, Cynthia, NP Salyers, Tiffany A., DO YUMIKO (acute kidney injury) (Primary Dx); Injury of nasal septum, initial encounter; Ground-level fall; Elevated troponin; Anemia, unspecified type; Thrombocytopenia; History of lung cancer; History of COPD; Focal seizure; Periorbital hematoma of both eyes; 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 Discharge Disposition: Rehab Facility 06/12/2025 Travel 06/06/2025 2:00 PM EDT - 06/06/2025 11:59 PM EDT Hospital Encounter [facility] MEDICAL ONCOLOGY [address], [address] [place] [address] Non-small cell lung cancer, unspecified laterality Discharge Disposition: Still a Patient 06/05/2025 10:00 AM EDT - 06/05/2025 11:59 PM EDT Hospital Encounter [facility] MEDICAL ONCOLOGY [address], [address] [place] [phone] Non-small cell lung cancer, unspecified laterality Discharge Disposition: Still a Patient 06/05/2025 9:15 AM EDT Office Visit [facility] ONCOLOGY PRACTICE [address], [address] [place] [phone] Rachel Pagan MD Non-small cell cancer of right lung (Primary Dx); Non-small cell lung cancer, unspecified laterality 06/05/2025 9:00 AM EDT - 06/05/2025 9:59 AM EDT Hospital Encounter [facility] MEDICAL ONCOLOGY [address], 11th [place] [address] Discharge Disposition: Still a Patient 06/05/2025 Travel 05/28/2025 Telephone [facility] ONCOLOGY PRACTICE [address], 10[address] [place] [address] Rachel Pagan MD 05/15/2025 2:31 PM EDT - 05/23/2025 2:36 PM EDT Hospital Encounter [facility] [address], [address] [place] [address] Dillon Townsend DO Vieira, Pamela, Christiano Reynolds MD Reyes, Rodolfo, MD Pancytopenia (Primary Dx); Hypokalemia; Hypomagnesemia; Sepsis, due to unspecified organism, unspecified whether acute organ dysfunction present; Pneumonia due to infectious organism, unspecified laterality, unspecified part of lung; Anemia Discharge Disposition: Home or Self Care from Last 3 Months Immunizations Immunization Administration Dates Next Due Influenza, injectable, MDCK, preservative free, quadrivalent 07/17/2022,09/11/2021 Moderna SARS-CoV-2 Vaccination 10/10/2021,2020,01/08/2021 Family History Medical History Relation Name Comments Heart attack Brothshahab Terry Jr. No Known Problems Daughter Coronary artery disease Father Harrison Diabetes Father Harrison Heart attack Father Harrison Hypertension Father Harrison No Known Problems Father's Brother No Known Problems Father's Sister No Known Problems Maternal Grandfather No Known Problems Maternal Grandmother Coronary artery disease Mother Mello Diabetes Mother Mello Heart attack Mother Mello Hypertension Mother Mello No Known Problems Mother's Brother No Known Problems Mother's Sister No Known Problems Other No Known Problems Paternal Grandfather No Known Problems Paternal Grandmother Lung cancer Sister 1 Alma Heart attack Sister 2 Denia No Known Problems Son Relation Name Status Comments Brothshahab Terry Jr. Daughter Father Harrison Father's Brother Father's Sister Maternal Grandfather Maternal Grandmother Mother Mello Mother's Brother Mother's Sister Other Paternal Grandfather Paternal Grandmother Sister 1 Alma Alive Sister 2 Denia Son Social History Tobacco Use Types Packs/Day Years [...] often do you attend chur ch or voodoo services? More than 4 times per year 11/11/2022 Do you belong to any clubs o r organizations such as taoism groups, unions, fraternal or athletic groups, or [...] Orientation Straight 01/21/2022 1: 00 PM EST Last Filed Vital Signs Vital Sign Reading Time Taken Comments Blood Pressure 83/56 08/13/2025 3:01 PM EDT Pulse 88 08/13/2025 3:01 PM EDT Temperature 36.6 C (97.8 F) 08/08/2025 11:00 AM EDT Respiratory Rate 18 08/08/2025 11:00 AM EDT Oxygen Saturation 93% 07/20/2025 11:29 AM EDT Inhaled Oxygen Concentration - - Weight 58.5 kg (129 lb) 08/13/2025 3:01 PM EDT Height 147.3 cm (4' 10 ) 08/13/2025 3:01 PM EDT Body Mass Index 26.96 08/13/2025 3:01 PM EDT Plan of Treatment Upcoming Encounters Date Type Department Care Team (Late st Contact Info) Description 08/27/2025 8:45 AM EDT Office Visit [facility] [address], [address] [place] [address] Rachel Pagan MD [address] [place] [address] 08/28/2025 1:00 PM EDT Office Visit [facility] ORTHOPEDIC PODIATRY PRACTICE [address], [address] [place] [address] Yazan Castro DPM [address] [place] [address] 08/29/2025 10:30 AM EDT Appointment [facility] [address], [address] [place] [address] 09/06/2025 1:45 PM EDT Appointment [facility] ULTRASOUND [address], [address] [place] [address] 09/12/2025 9:30 AM EDT Appointment [facility]G D [address], [place] [place] [address] 09/28/2025 9:30 AM EST Office Visit [facility] CARDIOLOGY PRACTICE [address], [address] [place] [address] Ky Jewell MD [address] [facility] [place] [address] 11/05/2025 2:45 PM EST Office Visit [facility] NEUROLOGY PRACTICE [address], 8[address] [place] [address] Ruddy Mayes MD [facility] [address] [facility] [place] [address] 12/31/2025 11:30 AM EST Office Visit [facility] NEPHROLOGY PRACTICE [address] [phone] 01/22/2026 9:00 AM EDT Office Visit [facility] CARDIOLOGY PRACTICE [address], [address] [place] [address] Allyn Toribio, GRAHAM [address] [place] [phone] Health Maintenance Due Date Last Done Comments Bone Density Scan 1958 CT Colonography 1958 ColoGuard Screening 1958 Colonoscopy 1958 Colorectal Cancer Screening 1958 FIT-DNA 1958 FIT 1958 FOBT 1958 Sigmoidoscopy 1958 MMR Vaccines (1 of 1 - Standard series) 1959 Diabetes: Retinopathy Screening 1968 DTaP/Tdap/Td Vaccines (1 - Tdap) 1977 Pneumococcal Vaccine (1 of 2 - PCV) 1977 RSV 60+ and patients (1 - Risk 60-74 years 1-dose series) 2018 Mammogram 05/11/2024 05/11/2023 Influenza Vaccine (#1) 2025 , 09/11/2021, 10/03/2020 Diabetes: Hemoglobin A1C 09/13/2025 025, 02/14/2025, 01/13/2025, Additional history exists RSV under 20 month Aged Out No longer eligible based on patient's age to complete this topic Goals Goal Patient Goal Type Associated Problems Recent Progress Patient-Stated? Author Patient's support system will participate in treatment General No Ruba Dongita A Medical Devices Implanted Type Area Commercial Collections Specialist Device Identifier Shelf Expiration Date Model / Serial / Lot Filter Jugular/Subc lavian [id number] - [id number] - [id number] Implanted:Qt y: 1 on 03/31/2025 at [facility] IVC Filter Right: Abdomen BARD PERIPHERAL VASCULAR [id number] 03/14/2028 [id number] / [id number] / [id number] Procedures Procedure Name Priority Date/Time Associated Diagnosis Comments OH DEBRIDEMENT NAIL ANY METHOD 6/> Today 08/13/2025 4:08 PM EDT Nail dystrophy Right foot pain Left foot pain HC REMOVAL OF NAIL BED Today 08/13/2025 4:07 PM EDT Ingrown right big toenail Right foot pain OH EXCISION NAIL MATRIX PERMANENT REMOVAL Today 08/13/2025 4:07 PM EDT Ingrown right big toenail Right foot pain T4, FREE Routine 08/08/2025 10:02 AM EDT Non-small cell lung cancer, unspecified laterality TSH Routine 08/08/2025 10:02 AM EDT Non-small cell lung cancer, unspecified laterality COMPREHENSIVE METABOLIC PANEL Routine 08/08/2025 10:02 AM EDT Non-small cell lung cancer, unspecified laterality CBC WITH AUTO DIFFERENTIAL Routine 08/08/2025 10:02 AM EDT Non-small cell lung cancer, unspecified laterality CT ABDOMEN PELVIS W IV CONTRAST Routine 08/06/2025 10:28 AM EDT Non-small cell cancer of right lung CT CHEST W IV CONTRAST Routine 08/06/2025 10:28 AM EDT Non-small cell cancer of right lung COMPREHENSIVE METABOLIC PANEL Routine 07/30/2025 9:57 AM EDT Non-small cell cancer of right lung CBC WITH AUTO DIFFERENTIAL Routine 07/30/2025 9:57 AM EDT Non-small cell cancer of right lung T4, FREE Routine 07/30/2025 9:57 AM EDT Non-small cell lung cancer, unspecified laterality TSH Routine 07/30/2025 9:57 AM EDT Non-small cell lung cancer, unspecified laterality PET/CT BONE SKULL BASE TO MID THIGH Routine 07/20/2025 10:56 AM EDT Non-small cell cancer of right lung POCT GLUCOSE PERFORMABLE Routine 07/20/2025 9:49 AM EDT MR CERVICAL SPINE W AND WO CONTRAST Routine 07/20/2025 9:36 AM EDT Metastasis to brain Non-small cell cancer of right lung ECG 12-LEAD Routine 07/18/2025 3:43 PM EDT Coronary artery disease involving [place] coronary artery of [place] heart without angina pectoris T4, FREE Routine 07/18/2025 10:17 AM EDT TSH Routine 07/18/2025 10:17 AM EDT CBC WITH AUTO DIFFERENTIAL Routine 07/18/2025 10:17 AM EDT COMPREHENSIVE METABOLIC PANEL Routine 07/18/2025 10:17 AM EDT T4, FREE Add-On 06/26/2025 8:29 AM EDT TSH Add-On 06/26/2025 8:29 AM EDT VITAMIN B12 Add-On 06/26/2025 8:29 AM EDT Stage IV squamous cell carcinoma of lung, unspecified laterality FOLATE Add-On 06/26/2025 8:29 AM EDT Stage IV squamous cell carcinoma of lung, unspecified laterality MANUAL DIFF (REMISOL) Routine 06/26/2025 8:29 AM EDT Stage IV squamous cell carcinoma of lung, unspecified laterality COMPREHENSIVE METABOLIC PANEL Routine 06/26/2025 8:29 AM EDT Stage IV squamous cell carcinoma of lung, unspecified laterality CBC WITH AUTO DIFFERENTIAL Routine 06/26/2025 8:29 AM EDT Stage IV squamous cell carcinoma of lung, unspecified laterality POCT GLUCOSE PERFORMABLE Routine 06/23/2025 6:09 AM [...] OXYGEN THERAPY Routine 06/21/2025 8:00 AM EDT POTASSIUM Routine 06/21/2025 5:46 AM EDT MAGNESIUM Routine 06/21/2025 5:46 AM EDT PHOSPHORUS Routine 06/21/2025 5:46 AM EDT PLATELET COUNT Routine 06/21/2025 5:46 AM EDT POCT GLUCOSE [...] DIFF (REMISOL) Routine 06/19/2025 5:54 AM EDT PHOSPHORUS Routine 06/19/2025 5:54 AM EDT MAGNESIUM Routine 06/19/2025 5:54 AM EDT BASIC METABOLIC PANEL Routine 06/19/2025 5:54 AM EDT CBC WITH AUTO DIFFERENTIAL Routine 06/19/2025 5:54 AM EDT POCT GLUCOSE PERFORMABLE Routine 06/18/2025 10:13 PM EDT OXYGEN THERAPY Routine 06/18/2025 8:00 PM EDT POCT GLUCOSE PERFORMABLE Routine 06/18/2025 6:02 PM EDT OXYGEN THERAPY Routine 06/18/2025 4:27 PM EDT OXYGEN THERAPY Routine 06/18/2025 4:27 PM EDT OXYGEN THERAPY Routine 06/18/2025 4:27 PM EDT CBC Pending Discharge 06/18/2025 4:25 AM EDT COMPREHENSIVE METABOLIC PANEL Pending Discharge 06/18/2025 4:25 AM EDT CBC Pending Discharge 06/18/2025 1:40 AM EDT POCT GLUCOSE PERFORMABLE Routine 06/17/2025 4:30 PM EDT PULSE OXIMETRY, CONTINUOUS Routine 06/17/2025 8:00 AM EDT OXYGEN THERAPY Routine 06/17/2025 8:00 AM EDT COMPREHENSIVE METABOLIC PANEL Routine 06/17/2025 1:51 AM EDT CBC Routine 06/17/2025 1:51 AM EDT PULSE OXIMETRY, CONTINUOUS Routine 06/16/2025 8:00 PM EDT OXYGEN THERAPY Routine 06/16/2025 8:00 PM EDT PULSE OXIMETRY, CONTINUOUS Routine 06/16/2025 8:00 AM EDT OXYGEN THERAPY Routine 06/16/2025 8:00 AM EDT COMPREHENSIVE METABOLIC PANEL Routine 06/16/2025 3:29 AM EDT CBC Routine 06/16/2025 3:24 AM EDT PULSE OXIMETRY, CONTINUOUS Routine 06/15/2025 8:00 PM EDT OXYGEN THERAPY Routine 06/15/2025 8:00 PM EDT PULSE OXIMETRY, CONTINUOUS Routine 06/15/2025 8:00 AM EDT OXYGEN THERAPY Routine 06/15/2025 8:00 AM EDT COMPREHENSIVE METABOLIC PANEL Routine 06/15/2025 1:57 AM EDT CBC Routine 06/15/2025 1:57 AM EDT INCENTIVE SPIROMETRY RT Routine 06/14/2025 10:00 PM EDT INCENTIVE SPIROMETRY RT Routine 06/14/2025 8:00 PM EDT PULSE OXIMETRY, CONTINUOUS Routine 06/14/2025 8:00 PM EDT OXYGEN THERAPY Routine 06/14/2025 8:00 PM EDT INCENTIVE SPIROMETRY RT Routine 06/14/2025 6:00 PM EDT INCENTIVE SPIROMETRY RT Routine 06/14/2025 4:00 PM EDT INCENTIVE SPIROMETRY RT Routine 06/14/2025 2:00 PM EDT INCENTIVE SPIROMETRY RT Routine 06/14/2025 12:00 PM EDT INCENTIVE SPIROMETRY RT Routine 06/14/2025 10:00 AM EDT INCENTIVE SPIROMETRY RT Routine 06/14/2025 8:00 AM EDT OXYGEN THERAPY Routine 06/14/2025 8:00 AM EDT INCENTIVE SPIROMETRY RT Routine 06/14/2025 6:00 AM EDT INCENTIVE SPIROMETRY RT Routine 06/14/2025 4:00 AM EDT INCENTIVE SPIROMETRY RT Routine 06/14/2025 2:00 AM EDT MANUAL DIFF (REMISOL) Routine 06/14/2025 1:30 AM EDT CBC WITH AUTO DIFFERENTIAL Routine 06/14/2025 1:30 AM EDT COMPREHENSIVE METABOLIC PANEL Routine 06/14/2025 1:29 AM EDT VALPROIC ACID LEVEL, TOTAL Routine 06/14/2025 1:29 AM EDT INCENTIVE SPIROMETRY RT Routine 06/14/2025 12:00 AM EDT INCENTIVE SPIROMETRY RT Routine 06/13/2025 10:00 PM EDT INCENTIVE SPIROMETRY RT Routine 06/13/2025 8:00 PM EDT PULSE OXIMETRY, CONTINUOUS Routine 06/13/2025 8:00 PM EDT OXYGEN THERAPY Routine 06/13/2025 8:00 PM EDT TRANSFUSE PHERESED PLATELETS Routine 06/13/2025 6:45 PM EDT INCENTIVE SPIROMETRY RT Routine 06/13/2025 6:00 PM EDT INCENTIVE SPIROMETRY RT Routine 06/13/2025 4:00 PM EDT TRANSTHORACIC ECHO (TTE) COMPLETE Routine 06/13/2025 3:57 PM EDT INCENTIVE SPIROMETRY RT Routine 06/13/2025 2:00 PM EDT EEG IP/OP AWAKE OR DROWSY PORTABLE ROUTINE Routine 06/13/2025 2:00 PM EDT INCENTIVE SPIROMETRY RT Routine 06/13/2025 12:[address] HEAD ANGIO Routine 06/13/2025 11:[address] NECK ANGIO STAT 06/13/2025 10:58 AM EDT HEMOGLOBIN A1C Routine 06/13/2025 10:22 AM EDT CBC WITH AUTO DIFFERENTIAL Routine 06/13/2025 10:22 AM EDT INCENTIVE SPIROMETRY RT Routine 06/13/2025 10:00 AM EDT XR CHEST 1 VIEW Routine 06/13/2025 8:59 AM EDT INCENTIVE SPIROMETRY RT Routine 06/13/2025 8:00 AM EDT PULSE OXIMETRY, CONTINUOUS Routine 06/13/2025 8:00 AM EDT OXYGEN THERAPY Routine 06/13/2025 8:00 AM EDT TRANSFUSE PHERESED PLATELETS Routine 06/13/2025 7:38 AM EDT INCENTIVE SPIROMETRY RT Routine 06/13/2025 6:00 AM EDT INCENTIVE SPIROMETRY RT Routine 06/13/2025 4:00 AM EDT TRANSFUSE RED BLOOD CELLS Routine 06/13/2025 3:33 AM EDT LIPID PANEL Routine 06/13/2025 2:48 AM EDT C-REACTIVE PROTEIN, QUANTITATIVE STAT 06/13/2025 2:48 AM EDT APTT Routine 06/13/2025 2:48 AM EDT PROTIME-INR Routine 06/13/2025 2:48 AM EDT COMPREHENSIVE METABOLIC PANEL Routine 06/13/2025 2:48 AM EDT INCENTIVE SPIROMETRY RT Routine 06/13/2025 2:00 AM EDT POCT GLUCOSE PERFORMABLE Routine 06/13/2025 12:52 AM EDT INCENTIVE SPIROMETRY RT Routine 06/13/2025 12:00 AM EDT TRANSFUSE RED BLOOD CELLS Routine 06/12/2025 11:20 PM EDT INCENTIVE SPIROMETRY RT Routine 06/12/2025 11:01 PM EDT INCENTIVE SPIROMETRY RT Routine 06/12/2025 11:01 PM EDT INCENTIVE SPIROMETRY RT Routine 06/12/2025 11:01 PM EDT INCENTIVE SPIROMETRY RT Routine 06/12/2025 11:01 PM EDT INCENTIVE SPIROMETRY RT Routine 06/12/2025 11:01 PM EDT INCENTIVE SPIROMETRY RT Routine 06/12/2025 11:01 PM EDT INCENTIVE SPIROMETRY RT Routine 06/12/2025 11:01 PM EDT INCENTIVE SPIROMETRY RT Routine 06/12/2025 11:01 PM EDT INCENTIVE SPIROMETRY RT Routine 06/12/2025 11:01 PM EDT INCENTIVE SPIROMETRY RT Routine 06/12/2025 11:01 PM EDT INCENTIVE SPIROMETRY RT Routine 06/12/2025 11:01 PM EDT INCENTIVE SPIROMETRY RT Routine 06/12/2025 11:01 PM EDT PULSE OXIMETRY, CONTINUOUS Routine 06/12/2025 11:01 PM EDT PULSE OXIMETRY, CONTINUOUS Routine 06/12/2025 11:01 PM EDT PULSE OXIMETRY, CONTINUOUS Routine 06/12/2025 11:01 PM EDT MR BRAIN W AND WO CONTRAST Routine 06/12/2025 10:03 PM EDT OXYGEN THERAPY Routine 06/12/2025 8:00 PM EDT PREPARE PLATELET PHERESIS Routine 06/12/2025 7:16 PM EDT PREPARE RBC Routine 06/12/2025 7:16 PM EDT PREPARE RBC Routine 06/12/2025 7:16 PM EDT BBHHP Routine 06/12/2025 7:16 PM EDT TYPE AND SCREEN Routine 06/12/2025 7:16 PM EDT OXYGEN THERAPY Routine 06/12/2025 12:21 PM EDT OXYGEN THERAPY Routine 06/12/2025 12:21 PM EDT OXYGEN THERAPY Routine 06/12/2025 12:21 PM EDT TROPONIN (HIGH SENSITIVE) STAT 06/12/2025 9:56 AM EDT CK STAT 06/12/2025 9:56 AM EDT PROTIME-INR STAT 06/12/2025 3:28 AM EDT APTT STAT 06/12/2025 3:[address] MAXILLOFACIAL WO IV CONTRAST STAT 06/12/2025 3:[address] THORACIC SPINE WO IV CONTRAST STAT 06/12/2025 3:[address] CERVICAL SPINE WO IV CONTRAST STAT 06/12/2025 3:[address] HEAD WO IV CONTRAST STAT 06/12/2025 3:17 AM EDT POCT CREATININE PERFORMABLE Routine 06/12/2025 2:53 AM EDT POCT CREATININE STAT 06/12/2025 2:53 AM EDT POCT GLUCOSE ORDERABLE STAT 06/12/2025 2:46 AM EDT MANUAL DIFF (REMISOL) Routine 06/12/2025 2:46 AM EDT TROPONIN (HIGH SENSITIVE) STAT 06/12/2025 2:46 AM EDT COMPREHENSIVE METABOLIC PANEL STAT 06/12/2025 2:46 AM EDT CBC WITH AUTO DIFFERENTIAL STAT 06/12/2025 2:46 AM EDT ED INFORMATION EXCHANGE Routine 06/12/2025 2:37 AM EDT MANUAL DIFF (REMISOL) Routine 06/05/2025 9:10 AM EDT COMPREHENSIVE METABOLIC PANEL Routine 06/05/2025 9:10 AM EDT CBC WITH AUTO DIFFERENTIAL Routine 06/05/2025 9:10 AM EDT MANUAL DIFF (REMISOL) Routine 05/25/2025 11:05 AM EDT CBC WITH AUTO DIFFERENTIAL Routine 05/25/2025 11:05 AM EDT COMPREHENSIVE METABOLIC PANEL Routine 05/25/2025 11:05 AM EDT MANUAL DIFF (REMISOL) Routine 05/23/2025 3:11 AM EDT BASIC METABOLIC PANEL Routine 05/23/2025 3:11 AM EDT MAGNESIUM Routine 05/23/2025 3:11 AM EDT CBC WITH AUTO DIFFERENTIAL Routine 05/23/2025 3:11 AM EDT OXYGEN THERAPY STAT 05/22/2025 8:00 AM EDT MANUAL DIFF (REMISOL) Routine 05/22/2025 4:48 AM EDT BASIC METABOLIC PANEL Pending Discharge 05/22/2025 4:48 AM EDT MAGNESIUM Pending Discharge 05/22/2025 4:48 AM EDT CBC WITH AUTO DIFFERENTIAL Pending Discharge 05/22/2025 4:48 AM EDT TRANSFUSE PHERESED PLATELETS Routine 05/21/2025 3:53 PM EDT BI MAMMOGRAM SCREENING BILATERAL Routine 05/11/2023 10:41 AM EDT Screening mammogram for breast cancer from Last 3 Months or Most Recently Relevant to Health Maintenance Results * [place] DEBRIDEMENT NAIL ANY METHOD 6/> (08/13/2025 4:08 PM EDT) Narrative Yazan Castro DPM - 08/13/2025 4:08 PM EDT Yazan Castro DPM 08/14/2025 8:02 AM Nail debridement Date/Time: 08/13/2025 4:08 PM Performed by: Yazan Castro DPM Authorized by: Yazan Castro DPM Consent: Consent obtained: Verbal Consent given by: Patient Risks, benefits, and alternatives were discussed: yes Risks discussed: Bleeding Alternatives discussed: No treatment Is the patient diabetic?: no Time Out: 08/13/2025 4:08 PM [facility] protocol: Procedure explained and questions answered to patient or proxy's satisfaction: yes Patient identity confirmed: Verbally with patient Anesthesia: Anesthesia method: None Nails debrided: Number of Nails debrided: 9 Post-procedure details: Procedure completion: Tolerated well, no immediate complications Yazan Castro DPM IN CLINIC/BEDSIDE ORDERABLE S Final Result * [place] EXCISION NAIL MATRIX PERMANENT REMOVAL, HC REMOVAL OF NAIL BED (08/13/2025 4:07 PM EDT) Yazan Mandujano DPM - 08/13/2025 4:07 PM EDT Yazan Castro DPM 08/14/2025 8:02 AM Nail debridement Date/Time: 08/13/2025 4:07 PM Performed by: Yazan Castro DPM Authorized by: Yazan Catsro DPM Consent: Consent obtained: Verbal Consent given by: Patient Risks, benefits, and alternatives were discussed: yes Risks discussed: Bleeding, incomplete removal, infection, pain and permanent nail deformity Alternatives discussed: No treatment Is the patient diabetic?: no Time Out: 08/13/2025 4:07 PM [facility] protocol: Procedure explained and questions answered to [...] IN CLINIC/BEDSIDE ORDERABLE S Final Result * (ABNORMAL) CBC auto differential (08/08/2025 10:02 AM EDT) Only the most recent of13 resultswithin the time period is included. Auto WBC 3.6(L) 3.8 - 11.0 10*3/uL 08/08/2025 10:51 AM EDT [facility] RBC 2.57(L) 3.73 - 5.13 10*6/uL 08/08/2025 10:51 AM [facility] Hemoglobin 9.2(L) 11.2 - 15.3 g/dL 08/08/2025 10:51 AM [facility] Hematocrit 27.5(L) 32.6 - 44.6 % 08/08/2025 10:51 AM [facility] MCV 106.9(H) 78.8 - 96.0 fL 08/08/2025 10:51 AM [facility] MCH 35.6(H) 26.2 - 33.0 pg 08/08/2025 10:51 AM [facility] MCHC 33.3 32.7 - 35.1 g/dL 08/08/2025 10:51 AM [facility] RDW 21.6(H) 12.1 - 16.1 % 08/08/2025 10:51 AM [facility] Platelets 83(L) 138 - 402 10*3/uL 08/08/2025 10:51 AM [facility] MPV 7.8 7.0 - 10.6 fL 08/08/2025 10:51 AM [facility] Neutrophils % 61 47 - 79 % 08/08/2025 10:51 AM [facility] Lymphocytes % 22 13 - 41 % 08/08/2025 10:51 AM [facility] Monocytes % 10 3 - 11 % 08/08/2025 10:51 AM [facility] Eosinophils % 8(H) 0 - 6 % 08/08/2025 10:51 AM [facility] Basophils % 0 0 - 2 % 08/08/2025 10:51 AM [facility] Neutrophils Absolute 2.20 1.90 - 7.50 10*3/uL 08/08/2025 10:51 AM [facility] Lymphocytes Absolute 0.80 0.80 - 3.20 10*3/uL 08/08/2025 10:51 AM [facility] Monocytes Absolute 0.30 0.10 - 0.90 10*3/uL 08/08/2025 10:51 AM EDT [facility] Eosinophils Absolute 0.30 0.00 - 0.40 10*3/uL 08/08/2025 10:51 AM EDT [facility] Basophils Absolute 0.00 0.00 - 0.20 10*3/uL 08/08/2025 10:51 AM EDT [facility] Blood Venous blood specimen / Unknown Venipuncture / Unknown 08/08/2025 10:02 AM EDT 08/08/2025 10:43 AM EDT Rachel Soriano MD LAB BLOOD ORDERABLES Final Result [facility] [address] [place] [address], * TSH (08/08/2025 10:02 AM EDT) Only the most recent of4 resultswithin the time period is included. TSH 2.828 0.450 - 5.330 uIU/mL 08/08/2025 11:18 AM EDT [facility] Comment: Non-[place] Female: 0.45 - 5.33 IU/mL Female - 1st Trimester: 0.05 - 3.70 IU/mL Female - 2nd Trimester: 0.31 4.35 IU/mL Female - 3rd Trimester: 0.41 5.18 IU/mL Blood Venous blood specimen / Unknown Venipuncture / Unknown 08/08/2025 10:02 AM EDT 08/08/2025 10:41 AM EDT Rachel Soriano MD LAB BLOOD ORDERABLES Final Result [facility] [address] [place] [address], * T4, free (08/08/2025 10:02 AM EDT) Only the most recent of4 resultswithin the time period is included. Free T4 0.96 0.61 - 1.12 ng/dL 08/08/2025 11:21 AM [facility] Blood Venous blood specimen / Unknown Venipuncture / Unknown 08/08/2025 10:02 AM EDT 08/08/2025 10:41 AM EDT us Rachel Soriano MD LAB BLOOD ORDERABLES Final Result [facility] [address] [place] [address], * (ABNORMAL) Comprehensive metabolic panel (08/08/2025 10:02 AM EDT) Only the most recent of13 resultswithin the time period is included. Sodium 140 134 - 143 mmol/L 08/08/2025 11:11 AM [facility] Potassium 4.3 3.2 - 4.6 mmol/L 08/08/2025 11:11 AM [facility] Chloride 104 99 - 108 mmol/L 08/08/2025 11:11 AM [facility] CO2 30(H) 19 - 29 mmol/L 08/08/2025 11:11 AM [facility] Anion Gap 6 5 - 15 mmol/L 08/08/2025 11:11 AM [facility] BUN 18 7 - 20 mg/dL 08/08/2025 11:11 AM [facility] Creatinine 1.17 <=1.20 mg/dL 08/08/2025 11:11 AM [facility] BUN/Creatinine Ratio 15.38 10.00 - 20.00 ratio 08/08/2025 11:11 AM [facility] Glucose 85 58 - 104 mg/dL 08/08/2025 11:11 AM [facility] Calcium 9.0 7.9 - 11.1 mg/dL 08/08/2025 11:11 AM [facility] AST 17 10 - 28 U/L 08/08/2025 11:11 AM [facility] ALT (SGPT) 11 <=40 U/L 08/08/2025 11:11 AM [facility] Alkaline Phosphatase 69 29 - 108 U/L 08/08/2025 11:11 AM [facility] Total Protein 6.7 5.9 - 7.9 g/dL 08/08/2025 11:11 AM [facility] Albumin 2.9(L) 3.5 - 5.1 g/dL 08/08/2025 11:11 AM [facility] Globulin, Total 3.8 2.4 - 4.8 g/dL 08/08/2025 11:11 AM [facility] A/G Ratio 0.8 0.6 - 1.6 08/08/2025 11:11 AM [facility] Total Bilirubin 0.5 0.3 - 1.0 mg/dL 08/08/2025 11:11 AM [facility] eGFR (CKD-EPI) 48.7(L) >60.0 - 200.0 mL/min/1.7 3m*2 08/08/2025 11:11 AM [facility] Blood Venous blood specimen / Unknown Venipuncture / Unknown 08/08/2025 10:02 AM EDT 08/08/2025 10:41 AM EDT us Rachel Soriano MD LAB BLOOD ORDERABLES Final Result Performing Organization Address City/State/[facility] Co de Phone Number [facility] [address] [place] [address], * CT abdomen pelvis w IV contrast [...] Brasher DO 08/06/2025 11:03 AM EDT RP [facility] 08/06/2025 11:03 AM EDT EXAM: CT ABDOMEN [...] IMG CT PROCEDURES Final Res ult * PET/CT bone skull base to mid thigh (07/20/2025 10:56 AM EDT) Anatomical Region Laterality Modality Body Positron Emissio n Tomography (PET) 07/20/2025 9:27 AM EDT Impressions 07/20/2025 1:05 PM EDT Overall, there is progression of FDG avid disease to the right lung base with newly developed FDG avid lymph nodes to the right hilum and subcarinal ernestine station. Persistent inferior left infrahilar ernestine disease. Amorphous uptake is also seen to soft solid left upper lobe confluent opacity, concerning for additional site of neoplastic disease versus infectious or inflammatory process. Mixed density opacities are noted bilaterally, indeterminate, poorly evaluated by PET. Recommend CT chest surveillance for these findings. Electronically signed by: Anat Plasencia MD 07/20/2025 01:05 PM EDT Narrative 07/20/2025 1:05 PM EDT EXAMINATION: SKULL [...] (ABNORMAL) POCT glucose (07/20/2025 9:49 AM EDT) Only the most recent of22 resultswithin the time period is included. Glucose 54(L) 70 - 110 mg/dL 07/20/2025 9:49 AM EDT [facility] Comment:No Action Insurance Defense Paralegal Name Ángela Cantu PET SCAN TECH 07/20/2025 9:49 AM EDT [facility] Insurance [employer] Paralegal ID [id number] 07/20/2025 9:49 AM EDT [facility] Blood Capillary blood specimen / Unknown 07/20/2025 9:49 AM EDT 07/20/2025 9:49 AM EDT us Generic Provider Poct LAB POINT OF CARE TEST DOCKED DEVICE UNSOLICITED RESULTS Final Result [facility] [address] [place] [address], * MR cervical spine w and wo contrast (07/20/2025 9:36 AM EDT) Anatomical Region Laterality Modality Spine, C-spine Magnetic Resonan ce 07/20/2025 9:36 AM EDT Impressions 07/20/2025 10:40 AM EDT The exam is limited by patient movement. 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 Electronically signed by: Don Cabrera MD 07/20/2025 10:40 AM EDT RP Narrative 07/20/2025 10:40 AM EDT PROCEDURE: MR CERVICAL SPINE WITHOUT THEN WITH IV CONTRAST: 07/20/2025 CLINICAL INFORMATION: Brain Mets from lung cancer, arm tremors The exam is limited by patient movement. Alignment of the cervical spine is anatomic. There is no evidence of acute fracture, or dislocation. The height of the vertebral bodies are well preserved. Marrow signal is within normal limits. Disc desiccation is present at all levels. The included portions of the posterior fossa and the cervical cord show no focal signal abnormalities. There is no evidence of abnormal postcontrast enhancement. C2-C3: Unremarkable. C3-C4: Unremarkable. C4-C5: There is annular bulge with degenerative change of the facet joints resulting in mild to moderate foraminal and mild central stenosis. C5-C6: There is annular bulge with degenerative change of the facet joints resulting in mild central and foraminal stenosis. C6-C7: There is annular bulge with degenerative change of the facet joints resulting in [id number] foraminal and mild central stenosis. C7-T1: Unremarkable. Procedure Note Don Cabrera MD - 07/20/2025 PROCEDURE: MR CERVICAL SPINE WITHOUT THEN WITH IV CONTRAST: 07/20/2025 CLINICAL INFORMATION: Brain Mets from lung cancer, arm tremors The exam is limited by patient movement. Alignment of the cervical spineis anatomic. There is no evidence of acute fracture, or dislocation. Theheight of the vertebral bodies are well preserved. Marrow signal is withinnormal limits. Disc desiccation is present at all levels. The includedportions of the posterior fossa and the cervical cord show no focal signalabnormalities. There is no evidence of abnormal postcontrast enhancement. C2-C3: Unremarkable. C3-C4: Unremarkable. C4-C5: There is annular bulge with degenerative change of the facet jointsresulting in mild to moderate foraminal and mild central stenosis. C5-C6: There is annular bulge with degenerative change of the facet jointsresulting in mild central and foraminal stenosis. C6-C7: There is annular bulge with degenerative change of the facet jointsresulting in [id number] foraminal and mild central stenosis. C7-T1: Unremarkable. IMPRESSION: The exam is limited by patient movement. There is degenerative disc andjoint disease with stenosis as described. Electronically signed by: Don Cabrera MD 07/20/2025 10:40 AM EDT RPWorkstation: [id number] us Linda Elizabeth DO IMG MRI PROCEDURES Final Result * ECG 12 lead (07/18/2025 3:43 PM [...] Sanchez MD ECG ORDERABLES Final Result [facility] * (ABNORMAL) Manual diff (06/26/2025 8:29 AM EDT) Only the most recent of9 resultswithin the time period is included. Segmented neutrophil % 68 47 - 79 % 06/26/2025 9:41 AM [facility] Band neutrophil % 3 0 - 6 % 025 9:41 AM [facility] Metamyelocyte % 1 0 - 2 % 9:41 AM [facility] Lymphocyte % 16 13 - 41 % 06/26/2025 9:41 AM [facility] Monocyte % 12(H) 3 - 11 % 06/26/2025 9:41 AM [facility] Anisocytosis Mild 06/26/2025 9:41 AM [facility] Poikilocytes Mild 06/26/2025 9:41 AM [facility] Platelet Estimate Decreased 025 9:41 AM [facility] Auto WBC 9.2 3.8 - 11.0 10*3/uL 06/26/2025 9:41 AM [facility] Neutrophil # 6.63 3.40 - 7.00 10*3/uL 06/26/2025 9:41 AM [facility] Lymphocyte # 1.47 0.40 - 3.90 10*3/uL 06/26/2025 9:41 AM [facility] Monocyte # 1.10(H) 0.20 - 0.60 10*3/uL 06/26/2025 9:41 AM [facility] Eosinophil # 0.09 0.00 - 0.90 10*3/uL 06/26/2025 9:41 AM [facility] Basophil # 0.00 0.00 - 0.20 10*3/uL 06/26/2025 9:41 AM [facility] Total Counted 199 06/26/2025 9:41 AM [facility] Eosinophil % 1 0 - 6 % 06/26/2025 9:41 AM [facility] WBC Morphology Normal 06/26/2025 9:41 AM [facility] PLT Morphology Normal 06/26/2025 9:41 AM [facility] Blood Venous blood specimen / Unknown Venipuncture / Unknown 06/26/2025 8:29 AM EDT 06/26/2025 8:55 AM EDT Rachel Soriano MD LAB BLOOD BANK TEST ORDERAB LES Final Result Performing Organization Address [facility]/ZIP Co de Phone Number [facility] [address] [place] [address], * (ABNORMAL) Folate (06/26/2025 8:29 AM EDT) Folate >27.2(H) 5.9 - 24.8 ng/mL 06/26/2025 12:11 PM EDT [facility] Blood Venous blood specimen / Unknown Venipuncture / Unknown 06/26/2025 8:29 AM EDT 06/26/2025 9:15 AM EDT Rachel Soriano MD LAB BLOOD ORDERABLES Final Result Performing Organization Address [facility]/ZIP Co de Phone Number [facility] [address] [place] [address], [place] [phone] * (ABNORMAL) Vitamin B12 (06/26/2025 8:29 AM EDT) Vitamin B-12 >1,537.0(H ) 180.0 - 914.0 pg/mL 06/26/2025 12:11 PM EDT [facility] Blood Venous blood specimen / Unknown Venipuncture / Unknown 06/26/2025 8:29 AM EDT 06/26/2025 9:15 AM EDT Rachel Soriano MD LAB BLOOD ORDERABLES Final Result Performing Organization Address City/[facility]/ZIP Co de Phone Number [facility] [address] [place] [address], * (ABNORMAL) Platelet count (06/22/2025 3:12 AM EDT) Only the most recent of2 resultswithin the time period is included. Platelets 15(LL) 138 - 402 10*3/uL 06/22/2025 3:39 AM EDT [facility] Blood Venous blood specimen / Unknown Existing Catheter / Unknown 06/22/2025 3:12 AM EDT 06/22/2025 3:31 AM EDT us Nuvia Johnson MD LAB BLOOD ORDERABLES Millie l Result Performing Organization Address City/[facility] Co de Phone Number [facility] [address] [place] [address], [place] [phone] * Potassium (06/21/2025 5:46 AM EDT) Only the most recent of2 resultswithin the time period is included. Potassium 3.8 3.2 - 4.6 mmol/L 06/21/2025 6:52 AM EDT [facility] Blood Venous blood specimen / Unknown Existing Catheter / Unknown 06/21/2025 5:46 AM EDT 06/21/2025 6:21 AM EDT us Nuvia Johnson MD LAB BLOOD ORDERABLES Millie l Result Performing Organization Address City/[facility] Co de Phone Number [facility] [address] [place] [address], [place] [phone] * Phosphorus (06/21/2025 5:46 AM EDT) Only the most recent of2 resultswithin the time period is included. Phosphorus 3.0 2.3 - 4.7 mg/dL 06/21/2025 6:52 AM EDT [facility] Blood Venous blood specimen / Unknown Existing Catheter / Unknown 06/21/2025 5:46 AM EDT 06/21/2025 6:21 AM EDT us Nuvia Johnson MD LAB BLOOD ORDERABLES Millie l Result Performing Organization Address City/[facility]/ZIP Co de Phone Number [facility] [address] [place] [address], [place] [phone] * (ABNORMAL) Magnesium (06/21/2025 5:46 AM EDT) Only the most recent of5 resultswithin the time period is included. Magnesium 1.6(L) 1.8 - 2.4 mg/dL 06/21/2025 6:52 AM EDT [facility] Blood Venous blood specimen / Unknown Existing Catheter / Unknown 06/21/2025 5:46 AM EDT 06/21/2025 6:21 AM EDT Nuvia Johnson MD LAB BLOOD ORDERABLES Millie l Result Performing Organization Address [facility] Co de Phone Number [facility] [address] [place] [address], * (ABNORMAL) Basic metabolic panel (06/19/2025 5:54 AM EDT) Only the most recent of3 resultswithin the time period is included. Glucose 88 58 - 104 mg/dL 06/19/2025 6:36 AM [facility] Sodium 142 134 - 143 mmol/L 06/19/2025 6:36 AM [facility] Potassium 2.9(L) 3.2 - 4.6 mmol/L 06/19/2025 6:36 AM [facility] Chloride 108 99 - 108 mmol/L 06/19/2025 6:36 AM [facility] CO2 27 19 - 29 mmol/L 06/19/2025 6:36 AM [facility] Anion Gap 7 5 - 15 mmol/L 06/19/2025 6:36 AM [facility] BUN 12 7 - 20 mg/dL 06/19/2025 6:36 AM [facility] Creatinine 0.62 <=1.20 mg/dL 06/19/2025 6:36 AM [facility] BUN/Creatinine Ratio 19.35 10.00 - 20.00 ratio 06/19/2025 6:36 AM [facility] Calcium 7.3(L) 7.9 - 11.1 mg/dL 06/19/2025 6:36 AM [facility] eGFR (CKD-EPI) 94.3 >60.0 - 200.0 mL/min/1.7 3m*2 06/19/2025 6:36 AM [facility] Blood Venous blood specimen / Unknown Venipuncture / Unknown 06/19/2025 5:54 AM EDT 06/19/2025 6:05 AM EDT Nuvia Johnson MD LAB BLOOD ORDERABLES Millie cristina Result [facility] [address] [place] [address], * (ABNORMAL) CBC (06/18/2025 4:25 AM EDT) Only the most recent of5 resultswithin the time period is included. Auto WBC 7.4 3.8 - 11.0 10*3/uL 06/18/2025 4:47 AM [facility] RBC 3.37(L) 3.73 - 5.13 10*6/uL 06/18/2025 4:47 AM [facility] Hemoglobin 10.6(L) 11.2 - 15.3 g/dL 06/18/2025 4:47 AM [facility] Hematocrit 31.1(L) 32.6 - 44.6 % 06/18/2025 4:47 AM [facility] MCV 92.4 78.8 - 96.0 fL 06/18/2025 4:47 AM [facility] MCH 31.5 26.2 - 33.0 pg 06/18/2025 4:47 AM [facility] MCHC 34.1 32.7 - 35.1 g/dL 06/18/2025 4:47 AM EDT [facility] RDW 18.2(H) 12.1 - 16.1 % 06/18/2025 4:47 AM EDT [facility] Platelets 16(LL) 138 - 402 10*3/uL 06/18/2025 4:47 AM EDT [facility] MPV 8.9 7.0 - 10.6 fL 06/18/2025 4:47 AM EDT [facility] Blood Venous blood specimen / Unknown Venipuncture / Unknown 06/18/2025 4:25 AM EDT 06/18/2025 4:32 AM EDT Dillon Nicolas MD LAB BLOOD ORDERABLES Final Res ult [facility] [address] [place] [address], [place] [phone] * Valproic acid level, total (06/14/2025 1:29 AM EDT) Pathologist [facility] Valproic Acid, Total 55.0 50.0 - 100.0 ug/mL 06/14/2025 2:22 AM EDT [facility] Blood Venous blood specimen / Unknown Existing Catheter / Unknown 06/14/2025 1:29 AM EDT 06/14/2025 1:36 AM EDT Patience Wang NP LAB BLOOD ORDERABLES Final Re sult [facility] [address] [place] [address], [place] [phone] * Transfuse pheresed platelets (06/13/2025 11:27 PM EDT) Only the most recent of3 resultswithin the time period is included. Rachel Soriano MD BLOOD TRANSFUSION ORDERABLE S Final Result * TRANSTHORACIC ECHO (TTE) COMPLETE (06/13/2025 3:57 PM EDT) Anatomical Region Laterality Modality Ultrasound 06/13/2025 3:23 PM EDT Narrative 06/13/2025 4:26 PM EDT [facility] Echo/Vascular [address] [place] [address] Web: [email or web address] Transthoracic Echocardiogram Patient: Levi Study 06/13/2025 Jose Date: : 1960 Height: 46 in / Patient Inpatient 116.8 cm status: Age: 64 Weight: 126.7 lb Patient Echocardiography / 57.6 location Laboratory kg : Gender: F BMI/BSA: 42.2 kg/m^2 / 1.27 m^2 HR: 107 bpm BP: 112 / 75 *Ordering Physician: * Dennis Mata *Interpreting Physician: * Mara Ley *Health Systems Analyst: * Francisco DOMINIQUE, RVS, CCT Indications: CVA. Study data: Transthoracic echocardiogram. Procedure: Transthoracic echocardiography was performed. Image quality was poor. Intravenous contrast (agitated saline) was administered. Complete 2D, complete spectral Doppler, and color Doppler. Location: Echo laboratory. Patient status: Inpatient. Patient room number: 722. Conclusions Summary: 1. Left ventricle: The cavity size is normal. Wall thickness is normal. Systolic function is normal. The estimated ejection fraction is 60-65%. Wall motion is normal; there are no regional wall motion abnormalities. Left ventricular diastolic function parameters are normal. 2. Mitral valve: The annulus is moderately calcified. Findings Left ventricle: The cavity size is normal. Wall thickness is normal. Systolic function is normal. The estimated ejection fraction is 60-65%. Wall motion is normal; there are no regional wall motion abnormalities. Left ventricular diastolic function parameters are normal. Right ventricle: The cavity size is normal. Systolic function is normal. Left atrium: The atrium is normal in size. Right atrium: The atrium is normal in size. Mitral valve: Not well visualized. The annulus is moderately calcified. There is no evidence of stenosis. There is no regurgitation. Aortic valve: Not well visualized. The valve is structurally normal. The valve leaflets were not well visualized. There is no evidence of stenosis. There is no regurgitation. Tricuspid valve: The valve is structurally normal. There is no evidence of stenosis. There is no regurgitation. Pulmonic valve: Not visualized. Aorta: The aorta is normal size. Aortic root: The aortic root is not dilated. Pericardium: There is no pericardial effusion. Systemic veins: Inferior vena cava: The vessel is normal in size. The respirophasic diameter changes are in the normal range (>= 50%), consistent with normal central venous pressure. Measurements Left ventricle Value 04/21/2024 Ref Right ventricle Value 04/21/2024 Ref LVIDd 4.6 cm 4.9 3.8 TAPSE, 2D 2.2 cm 1.8 1.7 - - 3.1 5.2 RV S' (H) 17.0 cm/sec 13.2 6.0 - LVIDs (H) 3.7 cm 2.9 2.2 13.4 - 3.5 Left atrium Value 04/21/2024 Ref ESD/bsa, (H) 2.9 cm/m^2 1.8 1.3 LA Diam 2.7 cm 2.6 2.7 - LAX - 3.8 2.1 LAAs A4C 9.4 cm^2 15.2 <=20.0 LAX FS% (L) 20 % 40 27 - LAESV A4C (L) 16 ml 35 22 - 45 52 LVLs A4C 4.5 cm 4.2 ---- Vol/bsa, ES, 13 ml/m^2 22 11 - ESD/bsa 3.5 cm/m^2 2.6 ---- 1-p A4C 40 major ax, LAESV A2C (L) 6 ml 27 22 - A4C 52 LVLd A4C 4.5 cm 4.2 ---- LAESV (A-L) 13 ml 35 ------ SINDY/bsa 3.5 cm/m^2 2.6 ---- Vol/bsa, ES, (L) 10 ml/m^2 22 16 - minor ax, 2-p 34 A4C Vol/bsa, ES, (L) 14 ml/m^2 16 - LVLd A2C 5.7 cm 5.8 ---- A/L 34 LVLs A2C 4.0 cm 5.0 ---- SINDY/bsa 4.5 cm/m^2 3.6 ---- Right atrium Value 04/21/2024 Ref major ax, Area, ES (L) 7 cm^2 8 10 - A2C 18 ESD/bsa 3.2 cm/m^2 3.2 ---- Area, ES, (L) 7 cm^2 8 10 - major ax, A4C 18 A2C LVPWd 0.9 cm 0.5 0.6 Aortic valve Value 04/21/2024 Ref - AV Annulus (L) 1.8 cm 1.3 1.9 - 0.9 Diam 2.7 IVS/PW, ED 1.07 1.19 ---- Kia 1.4 cm/m^2 0.8 1.1 - EDV 98 ml 112 46 - diam/bsa, S 1.5 106 Peak v, S 1.18 m/sec 1.27 ------ ESV (H) 58 ml 32 14 - Mean v, S 0.78 m/sec 0.79 ------ 42 VTI, S 23.4 cm 25.1 ------ LAX EF (L) 41 % 71 54 - Mean grad, S 2.76 mm Hg 2.87 ------ 74 Peak grad, S 5.56 mm Hg 6.44 ------ LVd Mass (H) 171 g 86 66 - KEVIN, VTI 2.46 cm^2 1.22 ------ 150 LVOT/AV, 0.72 0.88 ------ Mass/bsa (H) 134 g/m^2 54 44 - Vpeak ratio 88 KEVIN, Vmax 2.09 cm^2 1.22 ------ Mass/ht 146.11 g/m 58.59 ---- Mass/ht^2.7 112.15 g/m^2.7 30.33 ---- Mitral valve Value 04/21/2024 Ref LVEDV MOD (L) 23 ml 53 41 - Peak E 1.05 m/sec 0.93 ------ A2C 133 Peak A 1.13 m/sec 1.11 ------ LVESV MOD (L) 7 ml 13 10 - Mean v, D 0.75 m/sec 0.88 ------ A2C 54 MV VTI 31.7 cm 33.9 ------ LV EF A2C 67 % 75 52 - Decel time 202 ms 227 ------ 76 PHT 86 ms 98 ------ SV MOD A2C 15 ml 40 ---- Mean grad, D 2.48 mm Hg 3.35 ------ SV/bsa, 1-p 12.2 ml/m^2 24.9 ---- Peak grad, D 5.06 mm Hg 6.26 ------ A2C MV E/A ratio 0.93 0.83 ------ LVEDV A4C (L) 22 ml 46 48 - MVA 1.8 cm^2 0.9 ------ 140 MVA, PHT 2.6 cm^2 2.3 ------ ESV, 1-p (L) 8 ml 11 12 - A4C 60 Aortic root Value 04/21/2024 Ref LVEF A4C 66 % 77 46 - Sinuses of 2.8 cm 2.3 <3.6 78 Valsalva SV MOD A4C 15 ml 35 ---- Root max 2.2 cm/m^2 1.4 1.4 - EDV/bsa, (L) 18 ml/m^2 29 30 - diam/bsa, ED 2.2 1-p A4C [address] junct 2.0 cm 1.9 ------ ESV/bsa, (L) 6 ml/m^2 7 7 - S-T junct 1.5 cm/m^2 1.2 ------ 1-p A4C 35 diam/bsa, S SV/bsa, 1-p 12 ml/m^2 22 ---- A4C Ascending aorta Value 04/21/2024 Ref LVEDV BP (L) 23 ml 50 46 - Ao asc 2.9 cm ------ 106 AAo AP 2.3 cm/m^2 ------ LVESV BP (L) 8 ml 13 14 - diam/bsa, S 42 LV EF, 65 % 75 54 - Systemic veins Value 04/21/2024 Ref biplane 74 Estimated 3 mm Hg ------ EDV/bsa, (L) 18 ml/m^2 31 29 - CVP 2-p 61 ESV/bsa, (L) 6 ml/m^2 8 8 - 2-p 24 LVd Mass 148 g 81 67 - (ASE) 162 Mass/ht, MM (H) 127 g/m 55 41 - 99 Mass/ht^2.7 97 g/m^2.7 28 ---- , MM E', lat, 11.78 cm/s 10.12 >=10 TDI .00 E/e', lat, 8.91 9.16 ---- TDI E', sept, 7.28 cm/s 4.23 >=7. TDI 00 E/e', sept, 14.42 21.93 ---- TDI E', avg, 9.53 cm/s 7.18 ---- TDI E/e', avg, 11.02 12.92 <=14 TDI .00 LVOT Value 04/21/2024 Ref LVOT Diam 1.92 cm 1.33 ---- LVOT Vmax 0.85 m/sec 1.12 ---- LVOT Vmean 0.6 m/sec 0.67 ---- LVOT Max PG 3 mm Hg 5 ---- LVOT Mean 2 mm Hg 2 ---- PG LVSV Dopp 58 ml 31 ---- SV/bsa 45 ml/m^2 19 ---- Ventricular Value 04/21/2024 Ref septum IVSd (H) 1.0 cm 0.6 0.6 - 0.9 Legend: (L) and (H) ras values outside specified reference range. Prepared and electronically signed by Mara Ley 06/13/2025 16:26 Procedure Note Mara Ley MD - 06/13/2025 [facility] Echo/Vascular [address] [place] [address] Web: [email or web address] Transthoracic Echocardiogram Patient: Levi Study 06/13/2025 Jose Date: : 1960 Height: 46 in / Patient Inpatient 116.8 cm status: Age: 64 Weight: 126.7 lb Patient Echocardiography / 57.6 location Laboratory kg : Gender: F BMI/BSA: 42.2 kg/m^2 / 1.27 m^2 HR: 107 bpm BP: 112 / 75 *Ordering Physician: * Dennis Mata *Interpreting Physician: * Mara Ley *Health Systems Analyst: * Francisco Madrid RCS, RVS, CCT Indications: CVA. Study data: Transthoracic echocardiogram. Procedure: Transthoracic echocardiography was performed. Image quality was poor. Intravenous contrast (agitated saline) was administered. Complete 2D, complete spectral Doppler, and color Doppler. Location: Echo laboratory. Patient status: Inpatient. Patient room number: 722. Conclusions Summary: 1. Left ventricle: The cavity size is normal. Wall thickness is normal. Systolic function is normal. The estimated ejection fraction is 60-65%. Wall motion is normal; there are no regional wall motion abnormalities. Left ventricular diastolic function parameters are normal. 2. Mitral valve: The annulus is moderately calcified. Findings Left ventricle: The cavity size is normal. Wall thickness is normal. Systolic function is normal. The estimated ejection fraction is 60-65%. Wall motion is normal; there are no regional wall motion abnormalities. Left ventricular diastolic function parameters are normal. Right ventricle: The cavity size is normal. Systolic function is normal. Left atrium: The atrium is normal in size. Right atrium: The atrium is normal in size. Mitral valve: Not well visualized. The annulus is moderately calcified. There is no evidence of stenosis. There is no regurgitation. Aortic valve: Not well visualized. The valve is structurally normal. The valve leaflets were not well visualized. There is no evidence of stenosis. There is no regurgitation. Tricuspid valve: The valve is structurally normal. There is no evidence of stenosis. There is no regurgitation. Pulmonic valve: Not visualized. Aorta: The aorta is normal size. Aortic root: The aortic root is not dilated. Pericardium: There is no pericardial effusion. Systemic veins: Inferior vena cava: The vessel is normal in size. The respirophasic diameter changes are in the normal range (>= 50%), consistent with normal central venous pressure. Measurements Left ventricle Value 04/21/2024 Ref Right ventricleValue 04/21/2024 Ref LVIDd 4.6 cm 4.9 3.8 TAPSE, 2D 2.2cm 1.8 1.7 - -3.1 5.2 RV S' (H)17.0 cm/sec 13.2 6.0 - LVIDs (H) 3.7 cm 2.9 2.213.4 - 3.5 Left atriumValue 04/21/2024 Ref ESD/bsa, (H) 2.9 cm/m^2 1.8 1.3 LA Diam 2.7cm 2.6 2.7 - LAX -3.8 2.1 LAAs A4C 9.4cm^2 15.2 <=20.0 LAX FS% (L) 20 % 40 27 - LAESV A4C (L) 16ml 35 22 - 4552 LVLs A4C 4.5 cm 4.2 ---- Vol/bsa, ES, 13ml/m^2 22 11 - ESD/bsa 3.5 cm/m^2 2.6 ---- 1-p A4C40 major ax, LAESV A2C (L) 6ml 27 22 - A4C52 LVLd A4C 4.5 cm 4.2 ---- LAESV (A-L) 13ml 35 ------ SINDY/bsa 3.5 cm/m^2 2.6 ---- Vol/bsa, ES, (L) 10ml/m^2 22 16 - minor ax, 2-C Vol/bsa, ES, (L) 14ml/m^2 16 - LVLd A2C 5.7 cm 5.8 ---- A/L34 LVLs A2C 4.0 cm 5.0 ---- SINDY/bsa 4.5 cm/m^2 3.6 ---- Right atriumValue 04/21/2024 Ref major ax, Area, ES (L) 7cm^2 8 10 - A2C18 ESD/bsa 3.2 cm/m^2 3.2 ---- Area, ES, (L) 7cm^2 8 10 - major ax, A4C18 A2C LVPWd 0.9 cm 0.5 0.6 Aortic valveValue 04/21/2024 Ref - AV Annulus (L) 1.8cm 1.3 1.9 - 0.9 Diam2.7 IVS/PW, ED 1.07 1.19 ---- Kia 1.4cm/m^2 0.8 1.1 - EDV 98 ml 112 46 - diam/bsa, S1.5 106 Peak v, S1.18 m/sec 1.27 ------ ESV (H) 58 ml 32 14 - Mean v, S0.78 m/sec 0.79 ------ 42 VTI, S23.4 cm 25.1 ------ LAX EF (L) 41 % 71 54 - Mean grad, S2.76 mm Hg 2.87 ------ 74 Peak grad, S5.56 mm Hg 6.44 ------ LVd Mass (H) 171 g 86 66 - KEVIN, VTI2.46 cm^2 1.22 ------ 150 LVOT/AV,0.72 0.88 ------ Mass/bsa (H) 134 g/m^2 54 44 - Vpeak ratio 88 KEVIN, Vmax2.09 cm^2 1.22 ------ Mass/ht 146.11 g/m 58.59 ---- Mass/ht^2.7 112.15 g/m^2.7 30.33 ---- Mitral valveValue 04/21/2024 Ref LVEDV MOD (L) 23 ml 53 41 - Peak E1.05 m/sec 0.93 ------ A2C 133 Peak A1.13 m/sec 1.11 ------ LVESV MOD (L) 7 ml 13 10 - Mean v, D0.75 m/sec 0.88 ------ A2C 54 MV VTI31.7 cm 33.9 ------ LV EF A2C 67 % 75 52 - Decel time 202ms 227 ------ 76 PHT 86ms 98 ------ SV MOD A2C 15 ml 40 ---- Mean grad, D2.48 mm Hg 3.35 ------ SV/bsa, 1-p 12.2 ml/m^2 24.9 ---- Peak grad, D5.06 mm Hg 6.26 ------ A2C MV E/A ratio0.93 0.83 ------ LVEDV A4C (L) 22 ml 46 48 - MVA 1.8cm^2 0.9 ------ 140 MVA, PHT 2.6cm^2 2.3 ------ ESV, 1-p (L) 8 ml 11 12 - A4C 60 Aortic rootValue 04/21/2024 Ref LVEF A4C 66 % 77 46 - Sinuses of 2.8cm 2.3 <3.6 78 Valsalva SV MOD A4C 15 ml 35 ---- Root max 2.2cm/m^2 1.4 1.4 - EDV/bsa, (L) 18 ml/m^2 29 30 - diam/bsa, ED2.2 1-p A4C [address] junct 2.0cm 1.9 ------ ESV/bsa, (L) 6 ml/m^2 7 7 - S-T junct 1.5cm/m^2 1.2 ------ 1-p A4C 35 diam/bsa, S SV/bsa, 1-p 12 ml/m^2 22 ---- A4C Ascending aortaValue 04/21/2024 Ref LVEDV BP (L) 23 ml 50 46 - Ao asc 2.9cm ------ 106 AAo AP 2.3cm/m^2 ------ LVESV BP (L) 8 ml 13 14 - diam/bsa, S 42 LV EF, 65 % 75 54 - Systemic veinsValue 04/21/2024 Ref biplane 74 Estimated 3mm Hg ------ EDV/bsa, (L) 18 ml/m^2 31 29 - CVP 2-p 61 ESV/bsa, (L) 6 ml/m^2 8 8 - 2-p 24 LVd Mass 148 g 81 67 - (ASE) 162 Mass/ht, MM (H) 127 g/m 55 41 - 99 Mass/ht^2.7 97 g/m^2.7 28 ---- , MM E', lat, 11.78 cm/s 10.12 >=10 TDI .00 E/e', lat, 8.91 9.16 ---- TDI E', sept, 7.28 cm/s 4.23 >=7. TDI 00 E/e', sept, 14.42 21.93 ---- TDI E', avg, 9.53 cm/s 7.18 ---- TDI E/e', avg, 11.02 12.92 <=14 TDI .00 LVOT Value 04/21/2024 Ref LVOT Diam 1.92 cm 1.33 ---- LVOT Vmax 0.85 m/sec 1.12 ---- LVOT Vmean 0.6 m/sec 0.67 ---- LVOT Max PG 3 mm Hg 5 ---- LVOT Mean 2 mm Hg 2 ---- PG LVSV Dopp 58 ml 31 ---- SV/bsa 45 ml/m^2 19 ---- Ventricular Value 04/21/2024 Ref septum IVSd (H) 1.0 cm 0.6 0.6 - 0.9 Legend: (L) and (H) ras values outside specified reference range. 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 Technical summary-EEG obtained utilizing 10/20 international electrode placement system with the longitudinal bipolar montages with the usual filtering gain setting. Description-EEG obtained during the awake and drowsiness and a brief sleep state. During the wakefulness the background was consisted of 9 Hz alpha activity posteriorly dominant rhythm reactive to eye opening and eye closure. Intermittent drowsiness was characterized with decreased eyeblink artifact intermixed theta slowing. Stage I asleep is characterized by intermittent vertex waves. Stage II sleep is characterized by background slowing in the theta range and the intermittent sleep spindles. Hyperventilation was deferred. Intermittent photic stimulation produced much in the background. Interpretation-EEG obtained during the brief awake drowsiness sleep state is normal us Patience Wang NP NEUROLOGY ORDERABLES Final Re sult * CT head angio (06/13/2025 11:01 AM EDT) Anatomical Region Laterality Modality Head, Neck Computed Tomogra phy 06/13/2025 10:3 8 AM EDT Impressions 06/13/2025 11:10 AM EDT The exam is moderately limited by patient movement. Questionable short segmental high-grade stenosis versus occlusion involving the proximal right middle cerebral artery. Electronically signed by: Don Cabrera MD 06/13/2025 11:10 AM EDT [facility] 06/13/2025 11:10 AM EDT PROCEDURE: CT HEAD ANGIOGRAPHY WITH IV CONTRAST: 06/13/2025 Radiation Optimization: All CT scans at this facility use at least one of these dose optimization techniques: automated exposure control; mA and/or kV adjustment per patient size (includes targeted exams where dose is matched to clinical indication); or iterative reconstruction. CLINICAL INFORMATION: ISCHEMIC STROKE;stroke protocol The exam is moderately limited by patient movement. The visualized portion of the intracranial internal carotid arteries are patent. There is questionable high- grade stenosis versus short segmental occlusion of the proximal right middle cerebral artery. The bilateral middle cerebral arteries and anterior cerebral arteries are otherwise patent. The posterior circulation shows patency of the bilateral posterior cerebral arteries, basilar artery, and intracranial vertebral arteries. There is no evidence of aneurysm, or arteriovenous malformation. Procedure Note Don Cabrera MD - 06/13/2025 PROCEDURE: CT HEAD ANGIOGRAPHY WITH IV CONTRAST: 06/13/2025 Radiation Optimization: All CT scans at this facility use at least one ofthese dose optimization techniques: automated exposure control; mA and/orkV adjustment per patient size (includes targeted exams where dose ismatched to clinical indication); or iterative reconstruction. CLINICAL INFORMATION: ISCHEMIC STROKE;stroke protocol The exam is moderately limited by patient movement. The visualized portionof the intracranial internal carotid arteries are patent. There isquestionable high- grade stenosis versus short segmental occlusion of theproximal right middle cerebral artery. The bilateral middle cerebralarteries and anterior cerebral arteries are otherwise patent. The posterior circulation shows patency of the bilateral posteriorcerebral arteries, basilar artery, and intracranial vertebral arteries. There is no evidence of aneurysm, or arteriovenous malformation. IMPRESSION: The exam is moderately limited by patient movement. Questionable shortsegmental high-grade stenosis versus occlusion involving the proximalright middle cerebral artery. Electronically signed by: Don Cabrera MD 06/13/2025 11:10 AM EDT RPWorkstation: [id number] Dennis Mata IM CT PROCEDURES Final R esult * CT neck angio (06/13/2025 10:58 AM EDT) Anatomical Region Laterality Modality Head, Neck Computed Tomogra phy 06/13/2025 10:3 8 AM EDT Impressions 06/13/2025 11:14 AM EDT No evidence of significant internal carotid artery stenosis. Electronically signed by: Don Cabrera MD 06/13/2025 11:14 AM EDT RP Narrative 06/13/2025 11:14 AM EDT PROCEDURE: CT NECK ANGIOGRAPHY WITH IV CONTRAST: 06/13/2025 Radiation Optimization: All CT scans at this facility use at least one of these dose optimization techniques: automated exposure control; mA and/or kV adjustment per patient size (includes targeted exams where dose is matched to clinical indication); or iterative reconstruction. CLINICAL INFORMATION: ISCHEMIC STROKE;per stroke protocol The exam is mildly limited by patient movement. There is [id number] plaque involving the aortic arch, its branching [...] neck dated 02/28/2025 is not well visualized. Procedure Note Don Cabrera MD - 06/13/2025 PROCEDURE: CT NECK ANGIOGRAPHY WITH IV CONTRAST: 06/13/2025 Radiation Optimization: All CT scans at this facility use at least one ofthese dose optimization techniques: automated exposure control; mA and/orkV adjustment per patient size (includes targeted exams where dose ismatched to clinical indication); or iterative reconstruction. CLINICAL INFORMATION: ISCHEMIC STROKE;per stroke protocol The exam is mildly limited by patient movement. There is [id number] involving the aortic arch, its branching vessels, carotidbifurcations. The innominate artery and the visualized portion of the right subclavianartery is patent. The right common carotid artery is patent. The rightinternal carotid artery is patent along its course. The right vertebralartery is patent. The visualized portion of the left subclavian artery is patent. The leftcommon carotid artery is patent. The left internal carotid artery ispatent along its course. The left vertebral artery is patent. The 2 mm basilar tip aneurysm screening on prior CTA of the neck date02/28/2025 is not well visualized. IMPRESSION: No evidence of significant internal carotid artery stenosis. Electronically signed by: Don Cabrera MD 06/13/2025 11:14 AM EDT RPWorkstation: [id number] Dennis Mata DO IMG CT PROCEDURES Final R esult * Hemoglobin A1c (06/13/2025 10:22 AM EDT) Hemoglobin A1C 5.5 3.0 - 6.0 % 06/13/2025 10:48 AM T [facility] Comment: Additional Reference Ranges: 6.0 - 9.0% Controlled Diabetic >9.0 Poorly Controlled Diabetic *Hemoglobin A1c is an FDA approved test for monitoring snf glucose control in individuals with diabetes. It is not an approved screening test for diagnosing type 1 and type 2 diabetes. Results of Hemoglobin A1c are not reliable in patients with chronic blood loss, consequent variable erythrocyte lifespan, hemolytic diseases, , and significant blood loss. MEAN BLOOD GLUCOSE 111.15 mg/dl 06/13/2025 10:48 AM EDT [facility] Blood Venous blood specimen / Unknown Existing Catheter / Unknown 06/13/2025 10:22 AM EDT 06/13/2025 10:34 AM EDT Dennis Mata DO LAB BLOOD ORDERABLES Millie cristina Result [facility] [address] [place] [address], * XR chest 1 view (06/13/2025 8:59 AM EDT) Anatomical Region Laterality Modality Chest Digital Radiogra phy 06/13/2025 8:59 AM EDT Impressions 06/13/2025 9:34 AM EDT Patchy groundglass infiltrates in the right mid and lower lung field and left base. Persistent cavitary lesion right base. Electronically signed by: Sergo Rushing MD 06/13/2025 09:34 AM EDT RP Narrative 06/13/2025 9:34 AM EDT XR CHEST 1 VIEW Reason For Study: shortness of breath COMPARISON:05/17/2025 an earlier studies such as CT scan from March 31, 2025. TECHNIQUE An AP portable view of the chest was obtained. FINDINGS Right-sided MediPort tip in the SVC. Heart size is normal. Atherosclerotic change involving the aorta. No pneumothorax. Patchy opacity in the right lung base correlates with previous cavitary lesion described on CT from 03/31/2025. There is more groundglass change in the right mid and lower lung field and left base. Bri Yates LAY OUT INSPECTOR IMG XR PROCEDURES Final Result * Transfuse RBC (06/13/2025 7:54 AM EDT) Only the most recent of2 resultswithin the time period is included. Rachel Soriano MD BLOOD TRANSFUSION ORDERABLE S Final Result * (ABNORMAL) APTT (06/13/2025 2:48 AM EDT) Only the most recent of2 resultswithin the time period is included. aPTT 23(L) 25 - 37 Seconds 06/13/2025 3:38 AM EDT [facility] Comment: The APTT therapeutic range corresponds to heparin levels of approximately 0.3- 0.7 units/mL. Heparin therapeutic range=55.2 - 99.4 seconds. If a patient is receiving argatroban therapy, do not titrate argatroban drip as per heparin protocol. Blood Venous blood specimen / Unknown Existing Catheter / Unknown 06/13/2025 2:48 AM EDT 06/13/2025 3:17 AM EDT [facility] LAB BLOOD ORDERABLES Millie l Result Performing Organization Address City/[facility]/ZIP Co de Phone Number [facility] [address] [place] [address], * (ABNORMAL) Protime-INR (06/13/2025 2:48 AM EDT) Only the most recent of2 resultswithin the time period is included. Protime 13.6(H) 10.2 - 12.9 seconds 06/13/2025 3:38 AM EDT [facility] INR 1.20(H) 0.90 - 1.10 06/13/2025 3:38 AM EDT [facility] Comment: The INR should only be used in stable anticoagulated patients. Recommended therapeutic ranges: Condition INR Prevention or treatment of DVT 2.0-3.0 Acute GA Prevention of Stroke 2.0-3.0 Prevention of recurrent GA 2.5-3.5 Atrial fibrillation Prevention of systemic embolism 2.0-3.0 Cardiac valve replacement (mechanical valves) 2.5-3.5 Blood Venous blood specimen / Unknown Existing Catheter / Unknown 06/13/2025 2:48 AM EDT 06/13/2025 3:17 AM EDT [facility] LAB BLOOD ORDERABLES Millie l Result Performing Organization Address [facility] Co de Phone Number [facility] [address] [place] [address], * (ABNORMAL) C-reactive protein (06/13/2025 2:48 AM EDT) CRP 5.4(H) 0.0 - 1.0 mg/dL 06/13/2025 3:45 AM EDT [facility] Blood Venous blood specimen / Unknown Existing Catheter / Unknown 06/13/2025 2:48 AM EDT 06/13/2025 3:17 AM EDT Dennis [place] [facility] LAB BLOOD ORDERABLES Millie l Result Performing Organization Address City/[facility]/ZIP Co de Phone Number [facility] [address] [place] [address], * (ABNORMAL) Lipid panel (06/13/2025 2:48 AM EDT) Triglycerides 234(H) <=150 mg/dL 06/13/2025 3:45 AM EDT [facility] Cholesterol 104 102 - 200 mg/dL 06/13/2025 3:45 AM EDT [facility] HDL 31 30 - 71 mg/dL 06/13/2025 3:45 AM EDT [facility] Cholesterol/HDL Ratio 3.4 06/13/2025 3:45 AM EDT [facility] LDL-C (FRIEDEWALD) 26 <=100 mg/dL 06/13/2025 3:45 AM EDT [facility] Blood Venous blood specimen / Unknown Existing Catheter / Unknown 06/13/2025 2:48 AM EDT 06/13/2025 3:17 AM EDT [facility] LAB BLOOD ORDERABLES Millie l Result Performing Organization Address City/[facility]/ZIP Co de Phone Number [facility] [address] [place] [address], [place] [phone] * MR brain w and wo contrast (06/12/2025 10:03 PM EDT) Anatomical Region Laterality Modality Brain Magnetic Resonan ce 06/12/2025 9:39 PM EDT Addenda Addendum by Harlan Dimas MD on 06/12/2025 10:51 PM EDT Addendum created by Harlan Dimas MD on 06/12/2025 10:51:56 PM EDT: THIS REPORT CONTAINS FINDINGS THAT MAY BE CRITICAL TO PATIENT CARE. The findings were verbally communicated via telephone conference with ROLDAN Barker at 10:51 PM EDT on 06/12/2025. The findings were acknowledged and understood. Initial report created on 06/12/2025 10:38:52 PM EDT: [...] BEEN ELECTRONICALLY SIGNED BY HARLAN DIMAS MD Impressions 06/12/2025 10:38 PM EDT 1. Positive study for several tiny acute [...] BEEN ELECTRONICALLY SIGNED BY HARLAN DIMAS MD Narrative 06/12/2025 10:38 PM EDT PROCEDURE INFORMATION: Exam: MR Head Without and [...] effusion. Orbital cavities: Unremarkable. Soft tissues: Unremarkable. Procedure Note Harlan Dimas MD - 06/12/2025 PROCEDURE INFORMATION: Exam: MR Head Without and With Contrast Exam date and time: 06/12/2025 9:39 PM Age: 64 years old Clinical indication: Altered mental status/memory loss; Additional info:Brain metastases suspected TECHNIQUE: Imaging protocol: Magnetic resonance imaging of the head without and with contrast. Contrast material: PROHANCE; Contrast volume: 13 ml; Contrast route: INTRAVENOUS (IV); COMPARISON: CT Head or Brain w/o Contrast 06/12/2025 3:08 AM FINDINGS: Brain: Positive study for several tiny acute lacunar infarcts includingright cerebellum, right occipital lobe, right posterior frontal-parietal white matter. No hemorrhage or significant mass effect. Underlying atrophy,white matter chronic ischemia, old lacunar infarcts. Small area of ill-defined enhancement with only minimal T2 hyperintensity without significant masseffect right parietal lobe subcortical region (series 10 image 17, 18, series 11image 18) appearance suggests possible area of subacute subcortical infarctionrather than metastatic lesion. Suggest short-term follow-up. No other areas of suspicious abnormal enhancement. Cerebral ventricles: Normal. No ventriculomegaly. Bones: Previous right frontal craniotomy. Paranasal sinuses: Normal as visualized. No acute sinusitis. Mastoid air cells: Normal as visualized. No mastoid effusion. Orbital cavities: Unremarkable. Soft tissues: Unremarkable. IMPRESSION: 1. Positive study for several tiny acute lacunar infarcts includingright cerebellum, right occipital lobe, right posterior frontal-parietal white matter. No hemorrhage or significant mass effect. 2. Small area of ill-defined enhancement with only minimal [id number], without significant mass effect, right parietal lobe subcortical region(series 10 image 17, 18, series 11 image 18) appearance suggests possible area of subacute subcortical infarction rather than metastatic lesion. Suggest short-term follow-up. No other areas of suspicious abnormal enhancement. 3. Underlying atrophy, white matter chronic ischemia, old lacunarinfarcts. 4. Previous right frontal craniotomy. THIS DOCUMENT HAS BEEN ELECTRONICALLY SIGNED BY HARLAN DIMAS MD us Rachel Soriano MD IMG MRI PROCEDURES Edited R esult - Final * BB Hemoglobin, Hematocrit, & Platelet (06/12/2025 7:16 PM EDT) Blood Venous blood specimen / Unknown Venipuncture / Unknown 06/12/2025 7:16 PM EDT 06/12/2025 7:28 PM EDT Rachel Soriano MD LAB BLOOD ORDERABLES Final Result Performing Organization Address City/[facility]/ZIP Co de Phone Number [facility] [address] [place] [address], * Prepare platelet pheresis:: 2 Units (06/12/2025 7:16 PM EDT) Unit Number [id number] [facility] BLOOD BANK Dispense Status transfused [facility] BLOOD BANK Product Code [id number] [facility] BLO OD BANK Product Blood Type 6200 [facility] BLOOD BANK Blood Expiration Date [facility] BLOOD BANK Crossmatch Not Required [facility] BL OOD BANK Unit Number [id number] [facility] BLOOD BANK Dispense Status transfused [facility] BLOOD BANK Product Code [id number] [facility] BLO OD BANK Product Blood Type 6200 [facility] BLOOD BANK Blood Expiration Date [facility] BLOOD BANK Crossmatch Not Required [facility] BL OOD BANK Blood Venous blood specimen / Unknown 06/12/2025 7:16 PM EDT 06/12/2025 7:28 PM EDT Rachel Soriano MD BLOOD BANK PRODUCT ORDERABL ES Final Result Performing Organization Address [facility] Co de Phone Number [facility] BLOOD BANK [address] [place] [address], * Prepare RBCs: 1 Units (06/12/2025 7:16 PM EDT) Only the most recent of2 resultswithin the time period is included. Unit Number [id number] [facility] BLOOD BANK Dispense Status transfused [facility] BLOOD BANK Product Code [id number] [facility] BLO OD BANK Product Blood Type 5100 [facility] BLOOD BANK Blood Expiration Date [facility] BLOOD BANK Crossmatch Compatible [facility] BLOO D BANK Blood Venous blood specimen / Unknown 06/12/2025 7:16 PM EDT 06/12/2025 7:28 PM EDT Rachel Soriano MD BLOOD BANK PRODUCT ORDERABL ES Final Result [facility] BLOOD BANK [address] [place] [id number], [place] [phone] * Type and screen (06/12/2025 7:16 PM EDT) ABO Grouping O 07/03/2025 11:31 AM EDT [facility] BLOOD BANK Rh POS 07/03/2025 11:31 AM EDT [facility] BLOOD BANK Antibody Screen NEG 11:31 AM EDT [facility] BLOOD BANK Blood Venous blood specimen / Unknown Venipuncture / Unknown 06/12/2025 7:16 PM EDT 06/12/2025 7:28 PM EDT Rachel Soriano MD LAB BLOOD BANK TEST ORDERAB LES Edited Result - Final Performing Organization Address [facility] Co de Phone Number [facility] BLOOD BANK [address] [place] [address], [place] [phone] * (ABNORMAL) Troponin-I (06/12/2025 9:56 AM EDT) Only the most recent of2 resultswithin the time period is included. Pathologist [facility] Troponin, HS 88.5(H) 0.1 - 14.9 ng/L 06/12/2025 10:47 AM EDT [facility] Blood Venous blood specimen / Unknown Existing Catheter / Unknown 06/12/2025 9:56 AM EDT 06/12/2025 10:00 AM EDT us Lili Dempsey MD LAB BLOOD ORDERABLES Fi nal Result [facility] [address] [place] [address], [place] [phone] * CK (06/12/2025 9:56 AM EDT) Total CK 40 30 - 223 U/L 06/12/2025 10:46 AM EDT [facility] Blood Venous blood specimen / Unknown Existing Catheter / Unknown 06/12/2025 9:56 AM EDT 06/12/2025 10:00 AM EDT Lili Dempsey MD LAB BLOOD ORDERABLES Fi nal Result [facility] [address] [place] [address], * CT maxillofacial wo IV contrast (06/12/2025 3:20 AM EDT) Anatomical Region Laterality Modality Head, Neck, Facial bones Compute d Tomography 06/12/2025 3:08 AM EDT Impressions 06/12/2025 4:57 AM EDT No acute findings. Nonacute findings as noted above. THIS DOCUMENT HAS BEEN ELECTRONICALLY SIGNED BY ALANNA RANDOLPH MD Narrative 06/12/2025 4:57 AM EDT PROCEDURE INFORMATION: Exam: CT Maxillofacial Without Contrast Exam date and time: 06/12/2025 3:08 AM Age: 64 years old Clinical indication: Face pain; Additional info: Fall TECHNIQUE: Imaging protocol: Computed tomography of the face without contrast. Radiation optimization: All CT scans at this facility use at least one of these dose optimization techniques: automated exposure control; mA and/or kV adjustment per patient size (includes targeted exams where dose is matched to clinical indication); or iterative reconstruction. COMPARISON: CT Angiography Head w/ Contrast 02/28/2025 5:59 PM FINDINGS: Patient motion artifacts degrade some images of this examination. These artifacts cause image blurring and limit interpretation. Paranasal sinuses: Mild chronic appearing mucoperiosteal thickening ethmoid, sphenoid and maxillary sinuses. No air-fluid levels or acute sinusitis. Orbital cavities: Intraconal orbital soft tissue structures appear intact and symmetric bilaterally. Mastoid air cells: Mastoid air cells appear clear. Teeth: Patient edentulous. Bones: No acute fracture. No dislocation. Soft tissues: No definite acute abnormality. Procedure Note Alanna Randolph MD - 06/12/2025 PROCEDURE INFORMATION: Exam: CT Maxillofacial Without Contrast Exam date and time: 06/12/2025 3:08 AM Age: 64 years old Clinical indication: Face pain; Additional info: Fall TECHNIQUE: Imaging protocol: Computed tomography of the face without contrast. Radiation optimization: All CT scans at this facility use at least one ofthese dose optimization techniques: automated exposure control; mA and/or kV adjustment per patient size (includes targeted exams where dose is matchedto clinical indication); or iterative reconstruction. COMPARISON: CT Angiography Head w/ Contrast 02/28/2025 5:59 PM FINDINGS: Patient motion artifacts degrade some images of this examination. These artifacts cause image blurring and limit interpretation. Paranasal sinuses: Mild chronic appearing mucoperiosteal thickeningethmoid, sphenoid and maxillary sinuses. No air-fluid levels or acute sinusitis. Orbital cavities: Intraconal orbital soft tissue structures appear intactand symmetric bilaterally. Mastoid air cells: Mastoid air cells appear clear. Teeth: Patient edentulous. Bones: No acute fracture. No dislocation. Soft tissues: No definite acute abnormality. IMPRESSION: No acute findings. Nonacute findings as noted above. THIS DOCUMENT HAS BEEN ELECTRONICALLY SIGNED BY ALANNA RANDOLPH MD Don Nichols DO IMG CT PROCEDURES Final Result * CT thoracic spine wo IV contrast (06/12/2025 3:20 AM EDT) Anatomical Region Laterality Modality Spine, T-spine Computed Tomogra phy 06/12/2025 3:08 AM EDT Impressions 06/12/2025 5:18 AM EDT No acute thoracic spine fracture. THIS DOCUMENT HAS BEEN ELECTRONICALLY SIGNED BY DOMINIQUE MURPHY MD Narrative 06/12/2025 5:18 AM EDT PROCEDURE INFORMATION: Exam: CT Thoracic Spine Without Contrast Exam date and time: 06/12/2025 3:08 AM Age: 64 years old Clinical indication: Pain in thoracic spine; Additional info: Fall TECHNIQUE: Imaging protocol: Computed tomography of the thoracic spine without contrast. Radiation optimization: All CT scans at this facility use at least one of these dose optimization techniques: automated exposure control; mA and/or kV adjustment per patient size (includes targeted exams where dose is matched to clinical indication); or iterative reconstruction. COMPARISON: CT Angiography Chest w/ Contrast 05/15/2025 7:04 PM FINDINGS: Bones/joints: No acute fracture. Normal alignment. No significant disc bulge or herniation. No severe spinal canal stenosis. No significant neural foraminal narrowing. Soft tissues: Unremarkable. Vasculature: The aorta demonstrates severe atherosclerotic calcification and ectasia. Lungs: Stable cavitary process within right lower lung also noted May 15 examination. Don Nichols DO IMG CT PROCEDURES Final Result * CT cervical spine wo IV contrast (06/12/2025 3:19 AM EDT) Anatomical Region Laterality Modality Spine, C-spine Computed Tomogra phy 06/12/2025 3:08 AM EDT Impressions 06/12/2025 4:57 AM EDT No acute cervical spine abnormality demonstrated. Multilevel degenerative changes, stable. Scattered low-attenuation lesions throughout the visualized vertebral bodies, degenerative changes versus metastatic disease, stable since most recent study. Correlate with more remote exams which are not available at this time. Additional nonacute findings as noted. THIS DOCUMENT HAS BEEN ELECTRONICALLY SIGNED BY ALANNA RANDOLPH MD Narrative 06/12/2025 4:57 AM EDT PROCEDURE INFORMATION: Exam: CT Cervical Spine Without Contrast Exam date and time: 06/12/2025 3:08 AM Age: 64 years old Clinical indication: Neck pain; Additional info: Fall TECHNIQUE: Imaging protocol: Computed tomography of the cervical spine without contrast. Radiation optimization: All CT scans at this facility use at least one of these dose optimization techniques: automated exposure control; mA and/or kV adjustment per patient size (includes targeted exams where dose is matched to clinical indication); or iterative reconstruction. COMPARISON: CT Angiography Neck w/ Contrast 02/28/2025 5:59 PM FINDINGS: Patient motion artifacts degrade some images of this examination. These artifacts cause image blurring and limit interpretation. Bones: No acute fracture. Normal anatomic alignment. Scattered small low-attenuation lesions throughout the visualized vertebral bodies, unchanged since most recent study. Moderate disc narrowing with anterior and uncovertebral osteophytes C3 through C7. Diffuse facet joint arthropathy. Possible mild RIGHT neural foraminal narrowing C6-C7. Possible mild LEFT neural foraminal narrowing C5-C6 and C6-C7. Spinal canal appears maintained. Lungs: Limited imaging of the lung apices demonstrates no definite acute abnormality. Small area of hazy density LEFT apex present on previous study. Soft tissues: No prevertebral soft tissue swelling. Procedure Note Alanna Randolph MD - 06/12/2025 PROCEDURE INFORMATION: Exam: CT Cervical Spine Without Contrast Exam date and time: 06/12/2025 3:08 AM Age: 64 years old Clinical indication: Neck pain; Additional info: Fall TECHNIQUE: Imaging protocol: Computed tomography of the cervical spine withoutcontrast. Radiation optimization: All CT scans at this facility use at least one ofthese dose optimization techniques: automated exposure control; mA and/or kV adjustment per patient size (includes targeted exams where dose is matchedto clinical indication); or iterative reconstruction. COMPARISON: CT Angiography Neck w/ Contrast 02/28/2025 5:59 PM FINDINGS: Patient motion artifacts degrade some images of this examination. These artifacts cause image blurring and limit interpretation. Bones: No acute fracture. Normal anatomic alignment. Scattered small low-attenuation lesions throughout the visualizedvertebral bodies, unchanged since most recent study. Moderate disc narrowing with anterior and uncovertebral osteophytes [id number] C7. Diffuse facet joint arthropathy. Possible mild RIGHT neural foraminal narrowing C6-C7. Possible mild LEFT neural foraminal narrowing C5-C6 andC6-C7. Spinal canal appears maintained. Lungs: Limited imaging of the lung apices demonstrates no definite acute abnormality. Small area of hazy density LEFT apex present on previousstudy. Soft tissues: No prevertebral soft tissue swelling. IMPRESSION: No acute cervical spine abnormality demonstrated. Multilevel degenerative changes, stable. Scattered low-attenuation lesions throughout the visualized vertebralbodies, degenerative changes versus metastatic disease, stable since most recentstudy. Correlate with more remote exams which are not available at this time. Additional nonacute findings as noted. THIS DOCUMENT HAS BEEN ELECTRONICALLY SIGNED BY ALANNA RANDOLPH MD Don Nichols DO IM CT PROCEDURES Final Result * CT head wo IV contrast (06/12/2025 3:17 AM EDT) Anatomical Region Laterality Modality Head, Neck Computed Tomogra phy 06/12/2025 3:08 AM EDT Impressions 06/12/2025 4:57 AM EDT No evidence of acute intracranial abnormality. No significant interval adverse change since 02/28/2025. Nonacute findings as noted above. Please also see CT facial report. THIS DOCUMENT HAS BEEN ELECTRONICALLY SIGNED BY ALANNA RANDOLPH MD Narrative 06/12/2025 4:57 AM EDT PROCEDURE INFORMATION: Exam: CT Head Without Contrast Exam date and time: 06/12/2025 3:08 AM Age: 64 years old Clinical indication: Pain; Headache; Additional info: [...] encephalomalacia RIGHT frontal region. Ventricles and sulci prominent suggesting cortical atrophy. Diffuse periventricular lucency which is nonspecific but most likely due to chronic microvascular ischemic changes. Cerebral ventricles: No hydrocephalus. Paranasal sinuses: Reported separately. Mastoid air cells: Unremarkable as visualized. No mastoid effusion. Bones: No acute bone abnormality. Stable RIGHT frontoparietal craniotomy. Soft tissues: No definite acute abnormality. Vasculature: Atherosclerosis. Procedure Note Alanna Randolph MD - 06/12/2025 PROCEDURE INFORMATION: Exam: CT Head Without Contrast Exam date and time: 06/12/2025 3:08 AM Age: 64 years old Clinical indication: Pain; Headache; Additional info: Fall TECHNIQUE: Imaging protocol: Computed tomography of the head without contrast. Radiation optimization: All CT scans at this facility use at least one ofthese dose optimization techniques: automated exposure control; mA and/or kV adjustment per patient size (includes targeted exams where dose is matchedto clinical indication); or iterative reconstruction. COMPARISON: CT Head or Brain w/o Contrast 02/28/2025 5:59 PM FINDINGS: Patient motion artifacts degrade some images of this examination. These artifacts cause image blurring and limit interpretation. Brain: No CT evidence of mass, edema, or acute infarct. No hemorrhage. Postsurgical changes with focal encephalomalacia RIGHT frontal region. Ventricles and sulci prominent suggesting cortical atrophy. Diffuse periventricular lucency which is nonspecific but most likely due tochronic microvascular ischemic changes. Cerebral ventricles: No hydrocephalus. Paranasal sinuses: Reported separately. Mastoid air cells: Unremarkable as visualized. No mastoid effusion. Bones: No acute bone abnormality. Stable RIGHT frontoparietalcraniotomy. Soft tissues: No definite acute abnormality. Vasculature: Atherosclerosis. IMPRESSION: No evidence of acute intracranial abnormality. No significant interval adverse change since 02/28/2025. Nonacute findings as noted above. Please also see CT facial report. THIS DOCUMENT HAS BEEN ELECTRONICALLY SIGNED BY ALANNA RANDOLPH MD Don Nichols DO IMG CT PROCEDURES Final Result * (ABNORMAL) POCT CREATININE PERFORMABLE (06/12/2025 2:53 AM EDT) [facility] POC Creatinine 1.4(H) 0.6 - 1.3 mg/dL 06/12/2025 2:56 AM EDT [facility] Insurance Defense Paralegal Name Ann-Marie Newton MONTILLA 06/12/2025 2:56 AM EDT [facility] [place] [id number] 06/12/2025 2:56 AM EDT [facility] 06/12/2025 2:53 AM EDT 06/12/2025 2:56 AM EDT Don Nichols DO LAB POINT OF CAR E TEST DOCKED DEVICE UNSOLICITED RESULTS Final Result [facility] [address] [place] [address], * (ABNORMAL) POCT Creatinine (06/12/2025 2:53 AM EDT) POC Creatinine 1.4(A) 0.6 - 1.3 mg/dL 06/12/2025 2:53 AM EDT us Don Nichols DO LAB POINT OF CARE TEST D OCKED DEVICE ORDERABLES Final Result * POCT Glucose (06/12/2025 2:46 AM EDT) Glucose Blood, POC 252 mg/dL Blood Capillary blood specimen / Unknown 06/12/2025 2:46 AM EDT Don Nichols DO LAB POINT OF CARE TEST D OCKED DEVICE ORDERABLES Final Result * ED INFORMATION EXCHANGE (06/12/2025 2:37 AM EDT) 06/12/2025 2:37 AM EDT Don Nichols DO NURSING COMMUNICATION Fi nal Result EXTERNAL LAB * BI Screening mammogram bilateral w tomosynthesis (05/11/2023 10:41 AM EDT) Anatomical Region Laterality Modality Breast Bilateral Mammography 05/11/2023 10:4 1 AM EDT Impressions 05/11/2023 11:28 AM EDT No mammographic evidence of malignancy. BIRADS: BIRADS 2 - Negative RECOMMENDATION: Annual screening mammogram. Your x-ray mammogram shows that your breast tissue is dense. Dense breast tissue is common among women and is not abnormal. However, women with dense breast tissue may have a slightly increased risk for developing beast cancer. Dense breast tissue may also make it more difficult to detect an early breast cancer on your x-ray mammogram. At this time, there are not specific recommendations for additional screening or other measures related to having dense breast tissue. However, you may want to talk to your doctor about other ways that you might be able to reduce your risk or breast cancer. A report of your results was sent to your ordering physician. Negative mammography should not preclude biopsy of any clinically suspicious palpable lesions, which should be managed on clinical grounds, since 10% to 15% of malignancies are not mammographically visible and the rate is higher in patients with mammographically dense breast tissues. The results of your patient's mammogram will be forwarded by mail. It is the responsibility of the patient to provide the date and/or location of any previous mammograms to any new physician and/or supplier. Report Sign Date: 05/11/2023 11:28 AM, Electronically Signed By: Don Banegas 05/11/2023 11:28 AM EDT PROCEDURE: BI MAMMOGRAM SCREENING BILATERAL W TOMOSYNTHESIS: 05/11/2023 CLINICAL INFORMATION: mammogram Interpretation was made with the benefit of CAD. COMPARISON: 08/27/2015 BREAST DENSITY: The breast tissue is heterogeneously dense. This may lower the sensitivity of mammography. FINDINGS: There are benign-appearing calcifications present bilaterally. There is no evidence of suspicious calcification, dominant mass, or architectural distortion. Skin thickness and nipple shadows are normal in appearance. Opal Galeas MD IMG BI PROCEDURES Final Result from Last 3 Months or Most Recently Relevant to Health Maintenance Insurance [address] [place] [id number] [employer] PLANS MEDICARE ([place]) [place] MEDICA[place] [id number] [place] [id number] Advance Directives * DNR (Latest Code Status on File) Date Activated Date Inactivated Comments 06/18/2025 4:26 PM 06/23/2025 1:48 PM * DNR Date Activated Date Inactivated Comments 06/13/2025 10:25 AM 06/18/2025 4:26 PM * Full Code Date Activated Date Inactivated Comments 06/12/2025 12:21 PM 06/13/2025 10:25 AM * Full Code Date Activated Date Inactivated Comments 05/15/2025 10:25 PM 05/23/2025 4:37 PM * Full Code Date Activated Date Inactivated Comments 03/31/2025 2:06 AM 04/03/2025 12:35 PM Care Teams [employer] 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 Relationship Specialty Start Date End Date Lizandro Khan NP [address] [place] [address] PCP - General Family Medicine 07/23/25 Rachel Pagan MD [address] [place] [id number] Consulting Physician Oncology 11/11/22 Pati Rucker APRN [address] [place] [phone] Nurse Practitioner Oncology 12/21/22 Sosa Gardner APRN [address] [place] [phone] Nurse Practitioner Oncology 06/24/23 Linda Elizabeth DO [address] [place] [address] Consulting Physician Oncology 03/01/25 Angie Murray, ROLDAN [address] [place] [address] Nurse Navigator Oncology 06/26/25
--- OUTSIDE RECORDS SUMMARY | 2025-08-22 02:53 | XMS_ITS | Clinical Summary ---
Author Organization [facility] Address [address] [place] [address] Care Team Providers Care Front Office Coordinator Name Role Phone BashirItalo VICKY Primary Care Provider [phone] Allergies Active Allergy Reactions Criticality Noted Date Comments Cephalexin Itching Medium 11/17/2024 Ciprofloxacin Nausea 11/17/2024 Medications busPIRone (Buspar) 5 MG tablet Take 1 tablet (5 mg) by mouth 2 (two) times a day. Active cyclobenzaprine (Flexeril) 10 MG tablet Take 1 tablet (10 mg) by mouth at night if needed for muscle spasms. Active DULoxetine (Cymbalta) [address] capsule Take 1 capsule (60 mg) by mouth 1 (one) time each day. Do not crush or chew. Active folic acid (Folvite) 1 MG tablet Take 1 tablet (1 mg) by mouth 1 (one) time each day. Active montelukast (Singulair) 10 MG tablet Take 1 tablet (10 mg) by mouth every night. Active sertraline (Zoloft) 100 MG tablet Take 1 tablet (100 mg) by mouth 1 (one) time each day. Take with 25mg tab for total daily dose of 125mg daily Active topiramate (Topamax) 100 MG tablet Take 1 tablet (100 mg) by mouth 1 (one) time each day. Active carvedilol (Coreg) 6.25 MG tablet Take 1 tablet (6.25 mg) by mouth 2 (two) times a day with meals for 7 days. 14 tablet 025 Active Additional Information Patient not taking.Reported on 07/26/2025 furosemide (Lasix) 20 MG tablet Take 1 tablet (20 mg) by mouth 1 (one) time each day for 7 days. 7 tablet Active Additional Information Patient not taking.Reported on 07/26/2025 lisinopril 10 MG tablet Take 1 tablet (10 mg) by mouth 1 (one) time each day for 7 days. 7 tablet Active Additional Information Patient not taking.Reported on 07/26/2025 dexamethasone (Decadron) 2 MG tablet Take 2 tablets (4 mg) by mouth 4 (four) times a day for 4 days, THEN 2 tablets (4 mg) 3 (three) times a day for 4 days, THEN 2 tablets (4 mg) 2 (two) times a day for 4 days, THEN 1 tablet (2 mg) 2 (two) times a day for 18 days. 108 tablet Active Additional Information Patient not taking.Reported on 07/26/2025 levETIRAcetam (Keppra) 500 MG tablet Take 2 tablets (1,000 mg) by mouth 2 (two) times a day. 120 tablet Active isosorbide dinitrate (Isordil) 30 MG tablet Take 1 tablet (30 mg) by mouth 2 (two) times a day for 7 days. 14 tablet Active Additional Information Patient not taking.Reported on 07/26/2025 gabapentin (Neurontin) 400 MG capsule Take 2 capsules (800 mg) by mouth 2 (two) times a day. Take 1 capsule (400 mg) by mouth daily at lunch in addition to the 800 mg BID doses. 35 capsule Active nicotine (Nicoderm CQ) 21 MG/24HR patch Place 1 patch on the skin 1 (one) time each day over 24 hours. 30 patch Active Additional Information Patient not taking.Reported on 07/26/2025 albuterol (Proventil) (2.5 MG/3ML) 0.083% nebulizer solution inhale ONE vial (3ml) via nebulizer EVERY 6 HOURS NEEDED FOR 10 DAYS Active isosorbide mononitrate 20 MG tablet Take 1 tablet (20 mg) by mouth twice a day. Active Xarelto 2.5 MG tablet Take 1 tablet by mouth 2 times a day. Active gabapentin (Neurontin) 800 MG tablet take 1 tablet by mouth three times daily as directed Active dexamethasone (Decadron) 4 MG tablet Take 2 tablets by mouth 2 times a day. Active prochlorperazine (Compazine) 10 MG tablet take 1 tablet by mouth every 6 hours as needed for nausea or vomiting Active pantoprazole (Protonix) 40 MG EC tablet Take 1 tablet by mouth daily. Active ondansetron (Zofran) 8 MG tablet Take 1 tablet by mouth every 8 hours as needed for nausea or vomiting. Active metFORMIN (Glucophage) 500 MG tablet Take 1 tablet by mouth daily with breakfast and dinner. Active loratadine (Claritin) 10 MG tablet Take 1 tablet by mouth daily. Active bumetanide (Bumex) 2 MG tablet Take 1 tablet by mouth twice a day. Active diphenoxylate-atr opine (Lomotil) 2.5-0.025 MG tablet Take 1 tablet by mouth 4 times a day as needed. 2024 Active valproic acid (Depakene) 250 MG/5ML oral liquid Take 5 mL by mouth 3 times a day. Active potassium chloride ER (Micro-K) 10 MEQ ER capsule take 1 capsule by mouth twice daily with food Active ondansetron ODT (Zofran-ODT) 8 MG disintegrating tablet DISSOLVE 1 TABLET ON TONGUE FOUR TIMES DAILY NEEDED FOR NAUSEA OR VOMITING Active magnesium oxide (Mag-Ox) 400 (240 Mg) MG tablet Take 1 tablet by mouth. 2025 Active ipratropium-albut nikolai (Duo-Neb) 0.5-2.5 mg/3 mL nebulizer solution 3 mL every 6 hours as needed. Active ergocalciferol (Vitamin D-2) 50 MCG (1999 UT) capsule Take 1 capsule by mouth. Active empagliflozin (Jardiance) 10 MG Take 1 tablet by mouth 1 time each day. Active atorvastatin (Lipitor) 80 MG tablet Take 1 tablet by mouth. 2025 Active apixaban (Eliquis) 5 MG tablet Take 1 tablet by mouth twice a day. Active predniSONE (Deltasone) 20 MG tablet TAKE 1 Tablet BY MOUTH EVERY MORNING FOR 5 DAYS 2024 Discontinued Active Problems Problem Noted Date Diagnosed Date Leukocytosis 11/19/2024 Overview (11/22/2024): WBC is stable Likely secondary to steroid administration Afebrile May need further evaluation in the near future Follow up with PCP Headache 11/19/2024 Overview (11/22/2024): Continue Dexamethasone PRN Tylenol Follow up with PCP Obesity (BMI 30-39.9) 11/18/2024 Overview (11/22/2024): BMI 31.5 Complicates all aspects of care & recovery Non-small cell lung cancer metastatic to brain 0 11/17/2024 Overview (11/22/2024): NSCLC of right lung Adenocarcinoma diagnosed 10/2022 based on EBUS done on RLL biopsy and 11 R and 7 lymph node stations cytology that all showed adenocarcinoma consistent with lung primary. PDL-1 highly expressed @ 90%. PET scan 11/13/2022 showed no evidence of disease outside the chest however MRI brain 11/2022 showed multiple brain lesions concerning/suspicious for metastasis, noted to be a few millimeters in size. Patient does not have any [employer]GER symptoms at that time. Follows with radiation Oncology at [facility]. 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 MRI Head w/wo 11/13/2024: 0.3 x 1.1 x 0.9 cm enhancing lesion within the right frontal cortex with mild surrounding vasogenic edema and a small amount of underlying hemorrhage. This likely represents a metastatic lesion and is new from prior exam - See Brain mass for details PORT-a-cath in R chest re-accessed upon arrival Continue to follow up with oncology Brain mass 11/17/2024 Overview (11/22/2024): MRI head w/wo on 11/13/2024: 0.3X1.1X0.9 cm enhancing lesion within the right frontal cortex with mild surrounding vasogenic edema and small amount of underlying hemorrhage. Likely represents a metastic lesion and is new from prior exams Given Dexamethasone and Keppra loads at OSH Patient endorses blurred vision Seizure precautions Q4hr neuro checks Neurosurgery consulted 11/21/2024: to OR for right frontal craniotomy for tumor resection Dexamethasone taper from 4mg q6hrs to 2 mg BID over 2 weeks Continue PPI while on dexamethasone Continue Keppra 1 g BID Hold Xarelto for 2 weeks post-op Follow up with Dr. Dr. Cabrera in clinic in 2 weeks Vasogenic brain edema 11/17/2024 Overview (11/22/2024): See brain mass overview COPD (chronic obstructive pulmonary disease) 01/2025 Overview (11/22/2024): Does not require supplemental 02 at baseline Continue spiriva/dulera home meds Follow up with pulmonary at [facility] CAD (coronary artery disease) 11/17/2024 Overview (11/22/2024): Cath 04/2024 at [facility]: Nondominant right with a 70% lesion 20% ostial left main. No hemodynamically significant disease of the left anterior descending or the left circumflex. Preserved left ventricular systolic function with ejection fraction 55 to 60% Continue home meds: carvedilol/ isosorbide/lisinopril ECHO: EF 60-65% Follow up with PCP/cardiology A-fib 11/17/2024 Overview (11/22/2024): On xarelto at home, hold for 2 weeks post-op per neurosurgery Continue home Coreg Keep K+ 4.0 and greater Keep Mag 2.0 and greater NM (myocardial infarction) 11/17/2024 Overview (11/18/2024): HX of On warfarin for afib until April 2024--after NM--switched to Xarelto HTN (hypertension) 11/17/2024 Overview (11/22/2024): Continue home meds: Lisinopril & Coreg Follow up with PCP RLS (restless legs syndrome) 11/17/2024 Overview (11/17/2024): Not currently on medications for RLS Monitor symptoms PVD (peripheral vascular disease) 11/17/2024 Overview (11/22/2024): HX of SCDs while inpatient GERD (gastroesophageal reflux disease) Overview (11/22/2024): Continue PPI Follow up with PCP Smoker 11/17/2024 Overview (11/22/2024): 0.5 PPD smoking history Smoking cessation and education recommended Complicates all aspects of care and recovery Nicotine patch while inpatient Follow up with PCP Neuropathy 11/17/2024 Overview (11/18/2024): Gabapentin 800mg BID prescribed as home med; Patient states she doesn't take it all the time and has not taken in the last 3 days due to it making her experience somnolence Hold for now; consider lowering dose on discharge Anxiety and depression 11/17/2024 Overview (11/22/2024): Continue home Duloxetine & Buspar Follow up with PCP Prediabetes 11/17/2024 Overview (11/22/2024): Hemoglobin A1c 5.8 on admission Hyperglycemic on admission Likely due to steroid administration as the FSBS at OSH before steroids was WNL SSI while inpatient Follow up with PCP Hypoproteinemia 11/17/2024 Overview (11/22/2024): On admission Protein 5.5 & Albumin 3.1 Encourage diet Follow up with PCP Resolved Problems Problem Noted Date Diagnosed Date Resolved Date Electrolyte abnormality 11/17/2024 01/0 06/2025 Overview (11/22/2024): Monitor with AM labs and PRN Replace per PCU electrolyte protocol Encounters Date Type Department Care Team Description 07/26/2025 2:45 PM EDT Office Visit [facility] [address], [address] [place] [address] Pepe Cabrera MD Brain mass (Primary Dx) 07/26/2025 Travel 07/12/2025 Results [facility] [address] [place] [address] Prabhjot Vee, PharmD 07/09/2025 6:08 PM EDT - 07/10/2025 2:34 AM EDT Emergency [facility] [address] [place] [address] Kenan Luna MD Patel, Abhisek A, MD Altered mental status, unspecified altered mental status type (Primary Dx); UTI symptoms Discharge Disposition: Home or Self Care 07/09/2025 Travel 06/25/2025 Orders Only [facility] [address] [place] [address] Pepe Cabrera MD Brain mass (Primary Dx) 06/22/2025 Telephone [facility] [address] [facility], [address] [place] [address] Pepe Cabrera MD 06/12/2025 Orders Only External Location [address] [place] [address] Provider, External 06/12/2025 Orders Only External Location [address] [place] [address] Rachel Pagan MD from Last 3 Months Family History Medical History Relation Name Comments Heart disease Brother Coronary artery disease Father Diabetes Father Heart disease Father Hypertension, benign Father Coronary artery disease Mother Diabetes Mother Heart disease Mother Hypertension, benign Mother Cancer Sister Heart disease Sister Relation Name Status Comments Brother Father Mother Sister Social History Tobacco Use Types Packs/Day Years [...] on file Sexual Orientation Not on file Last Filed Vital Signs Vital Sign Reading Time Taken Comments Blood Pressure 108/78 07/26/2025 3:05 PM EDT Pulse 79 07/10/2025 1:10 AM EDT Temperature 36.4 C (97.6 F) 07/10/2025 1:10 AM EDT Respiratory Rate 18 07/10/2025 1:10 AM EDT Oxygen Saturation 95% 07/10/2025 1:10 AM EDT Inhaled Oxygen Concentration - - Weight 61.2 kg (135 lb) 07/26/2025 3:05 PM EDT Height 147.3 cm (4' 10 ) 07/26/2025 3:05 PM EDT Body Mass Index 28.22 07/26/2025 3:05 PM EDT Plan of Treatment Health Maintenance Due Date Last Done Comments [facility]-Bone Density Scan 1958 [facility]-Depression Screening 1958 [facility]-Medicare Annual Wellness (AWV) 1960 [facility]-Infant/Child/Adol SDOH Screenings 1958 [facility]- SDOH Screenings 1976 [facility]-Adult SDOH Screenings 1976 [facility]-DTaP,Tdap,and Td Vaccines (1 - Tdap) 1977 [facility]-Pneumococcal Vaccine: 50+ Years (1 of 2 - PCV) 1977 [facility]-Zoster Vaccines (1 of 2) 1977 CT Colonography 2003 Colonoscopy 2003 FIT-DNA 2003 FIT 2003 FOBT 2003 Sigmoidoscopy 2003 [facility]-Colorectal Cancer Screening 2003 [facility]-RSV Vaccine: 60+ Years or (1 - Risk 60-74 years 1-dose series) 2018 [facility]-Breast Cancer Screening 05/11/2025 05/11/2023 [id number] Vaccine ( season) 2025 10/10/2021, 02/05/2021, 01/08/2021 [facility]-Influenza Vaccine (#1) 2025 07/17/2022, [facility]-Diabetes: Hemoglobin A1C 06/13/2026, 02/14/2025, 01/13/2025, Additional history exists [facility]-Hepatitis C Screening Completed 2024, 02/14/2025, 11/11/2022 [facility]-Obesity Intervention Completed 025, 03/29/2025, 12/07/2024, Additional history exists HPV Vaccines Aged Out No longer eligi ble based on patient's age to complete this topic [facility]-HIB Vaccines Aged Out No longer e ligible based on patient's age to complete this topic [facility]-Hepatitis A Vaccines Aged Out No longer eligible based on patient's age to complete this topic [facility]-IPV Vaccines Aged Out No longer e ligible based on patient's age to complete this topic [facility]-Rotavirus Vaccines Aged Out No lo nger eligible based on patient's age to complete this topic Medical Devices Implanted Type Area Dredge Mate Device Identifier Shelf Expiration Date Model / Serial / Lot Cover, Neuro [place] Lp 17mm - Sn/A - [id number] Implanted:Qty: 1 on 11/21/2024 by Pepe Cabrera MD at [facility] Plate Right: Cranial [employer] [facility]-[id number] 11/21/2025 [id number] / N/A / Plate, 2 Hole Low Profile - Sn/A - [id number] Implanted:Qty: 2 on 11/21/2024 by Pepe Cabrera MD at [facility] Plate Right: C[employer] [facility]-[id number] 11/21/2025 [id number] / N/A / Screw Ti Matrixneuro Selfdrill 4mm - Sn/A - [id number] Implanted:Qty: 8 on 11/21/2024 by Pepe Cabrera MD at [facility] Screw Right: [employer] [facility]-[id number] 11/21/2025 [id number] 4.01 / N/A / Graft Dura Repair 2x2 Synthecel - [id number] Implanted:Qty: 1 on 11/21/2024 by Pepe Cabrera MD at [facility] Right: Cranial Synthes [facility]-[id number] 04/14/2027 [id number] 5.01S / / [id number] Procedures Procedure Name Priority Date/Time Associated Diagnosis Comments ETHYL ALCOHOL PLASMA STAT 07/10/2025 12:20 AM EDT SEND BETSY MESSAGE STAT 07/10/2025 12 :09 AM EDT URINALYSIS MICROSCOPIC FOR UA REFLEX STAT 07/10/2025 12:09 AM EDT URINE WHITMAN PANEL STAT 07/10/2025 12:0 9 AM EDT URINALYSIS WITH REFLEX MICROSCOPIC STAT 07/10/2025 12:09 AM EDT URINALYSIS WITH REFLEX MICROSCOPIC AND CULTURE STAT 07/10/2025 12:09 AM EDT URINE CULTURE STAT 07/10/2025 12:09 AM EDT BLOOD GAS PANEL, VENOUS STAT 07/09/20 9:25 PM EDT XR CHEST 1 VIEW STAT 07/09/2025 8:[address] HEAD WO IV CONTRAST STAT 7:46 PM EDT CREATINE KINASE, TOTAL, PLASMA STAT Add-on 07/09/2025 6:33 PM EDT ED HIV 1/2 ANTIBODY/ANTIGEN SCREEN WITH REFLEX TO HIV I/II DIFFERENTIATION STAT 07/09/2025 6:33 PM EDT ED PROTOCOL HIV 1/2 ANTIBODY/ANTIGEN SCREEN W/REFLEX TO HIV 1/2 ANTIBODY DIFFERENTIATION STAT 07/09/2025 6:33 PM EDT HEPATITIS C ANTIBODY - ED W/REFLEX TO HCV QUANT PCR STAT 07/09/2025 6:33 PM EDT APTT STAT 07/09/2025 6:33 PM EDT PROTHROMBIN TIME(PT) / INR STAT 07/09/2025 6:33 PM EDT LACTATE, VENOUS STAT 07/09/2025 6:33 PM EDT TYPE AND SCREEN STAT 07/09/2025 6:33 PM EDT PHOSPHORUS, PLASMA STAT 07/09/2025 6: 33 PM EDT MAGNESIUM, PLASMA STAT 07/09/2025 6:3 3 PM EDT CBC W/O DIFFERENTIAL STAT 07/09/2025 6:33 PM EDT COMPREHENSIVE METABOLIC PANEL, PLASMA STAT 07/09/2025 6:33 PM EDT MR OUTSIDE IMAGES 06/12/2025 9:[address] NEURO OUTSIDE IMAGES 06/12/20 3:08 AM EDT HEMOGLOBIN A1C Routine 11/17/2024 9:50 PM EST from Last 3 Months or Most Recently Relevant to Health Maintenance Results * Ethyl Alcohol, Plasma (07/10/2025 12:20 AM EDT) Ethanol Plasma <10 <10 mg/dL 07/10/2025 12:58 AM EDT [facility] Blood Venous blood specimen / Unknown Venipuncture / Unknown 07/10/2025 12:20 AM EDT 07/10/2025 12:26 AM EDT Narrative [facility] - 07/10/2025 12:58 AM EDT Enzymatic Assay: Performed on [employer]. us Kenan Luna MD LAB BLOOD ORDERABLES Final Res ult [facility] [address] [place] [address] * SEND VMob MESSAGE (07/10/2025 12:09 AM EDT) Urine Urine specimen obtained by clean catch procedure / Unknown Non-blood Collection / Unknown 07/10/2025 12:09 AM EDT 07/10/2025 12:24 AM EDT us Kenan Luna MD LAB URINE ORDERABLES Final Res ult Performing Organization Address [facility] de Phone Number [facility] [address] [place] [address] * Urine Whitman Panel (07/10/2025 12:09 AM EDT) Extra Sent for Culture 07/10/2025 2:01 AM EDT [facility] Urine Urine specimen obtained by clean catch procedure / Unknown Non-blood Collection / Unknown 07/10/2025 12:09 AM EDT 07/10/2025 12:24 AM EDT us Kenan Luna MD LAB URINE ORDERABLES Final Res ult Performing Organization Address [facility] de Phone Number [facility] [address] [place] [address] * Urinalysis Microscopic Examination (07/10/2025 12:09 AM EDT) Urine Urine specimen obtained by clean catch procedure / Unknown Non-blood Collection / Unknown 07/10/2025 12:09 AM EDT 07/10/2025 12:15 AM EDT us Kenan Luna MD LAB URINE ORDERABLES Final Res ult Performing Organization Address [facility] de Phone Number [facility] [address] [place] [address] * (ABNORMAL) Urinalysis with reflex microscopic (Culture NOT Included) (07/10/2025 12:09 AM EDT) Color, Urine Yellow LAB URINALYSIS - AUTOMATED METHOD 07/10/2025 12:48 AM EDT [facility] Clarity, Urine Cloudy LAB URINALYSIS - AUTOMATED METHOD 07/10/2025 12:48 AM EDT [facility] Spec Two Dot, Urine 1.013 1.005 - 1.030 LAB URINALYSIS - AUTOMATED METHOD 07/10/2025 12:48 AM EDT [facility] pH, Urine 6.0 5.0 - 8.0 LAB URINALYSIS - AUTOMATED METHOD 07/10/2025 12:48 AM EDT [facility] Protein, Urine Trace(A) Negative mg/dL LAB URINALYSIS - AUTOMATED METHOD 07/10/2025 12:48 AM EDT [facility] Glucose, Urine Negative Negative mg/dL LAB URINALYSIS - AUTOMATED METHOD 07/10/2025 12:48 AM EDT [facility] Ketones, Urine Negative Negative mg/dL LAB URINALYSIS - AUTOMATED METHOD 07/10/2025 12:48 AM EDT [facility] Blood, Urine Trace(A) Negative LAB URINALYSIS - AUTOMATED METHOD 07/10/2025 12:48 AM EDT [facility] Bilirubin, Urine Negative Negative LAB URINALYSIS - AUTOMATED METHOD 07/10/2025 12:48 AM EDT [facility] Urobilinogen, Urine 1.0 0.2 to 1.0 mg/dL LAB URINALYSIS - AUTOMATED METHOD 07/10/2025 12:48 AM EDT [facility] Leukocytes, Urine Large(A) Negative LAB URINALYSIS - AUTOMATED METHOD 07/10/2025 12:48 AM EDT [facility] Nitrite, Urine Negative Negative LAB URINALYSIS - AUTOMATED METHOD 07/10/2025 12:48 AM EDT [facility] RBC, Urine <1 0 to 3 /HPF LAB URINALYSIS - AUTOMATED METHOD 07/10/2025 12:48 AM EDT [facility] Comment:This result was prev iously suppressed from the chart. WBC, Urine >50(A) 0 to 5 /HPF LAB URINALYSIS - AUTOMATED METHOD 07/10/2025 12:48 AM EDT [facility] Comment:This result was prev iously suppressed from the chart. Squamous Epithelial Cells 0 - 2 0 to 5 /HPF LAB URINALYSIS - AUTOMATED METHOD 07/10/2025 12:48 AM EDT [facility] Comment:This result was prev iously suppressed from the chart. Hyaline Casts 3 - 5 0 to 5 /LPF LAB URINALYSIS - AUTOMATED METHOD 07/10/2025 12:48 AM EDT [facility] Comment:This result was prev iously suppressed from the chart. Bacteria, Urine Present Negative LAB URINALYSIS - AUTOMATED METHOD 07/10/2025 12:48 AM EDT [facility] Comment:This result was prev iously suppressed from the chart. Urine Urine specimen obtained by clean catch procedure / Unknown Non-blood Collection / Unknown 07/10/2025 12:09 AM EDT 07/10/2025 12:15 AM EDT us Kenan Luna MD LAB URINE ORDERABLES Final Res ult [facility] [address] [place] [address] * (ABNORMAL) Urine Culture (07/10/2025 12:09 AM EDT) Culture >=100,000 CFU/mL Klebsiella pneumoniae(A) ELIUD 07/12/2025 12:01 PM EDT [facility] Comment:This isolate has bee n identified using the FDA Approved [place] [facility] Urine Urine specimen obtained by [...] ELIUD <=0.25 ug/ml: Susceptible Klebsiella pneumoniae Meropenem ELIUD <=0.5 ug/ml: Susceptible Klebsiella pneumoniae Nitrofurantoin ELIUD >64 ug/ml: Resistant Klebsiella pneumoniae Piperacillin/Tazobactam ELIUD >64/4 ug/ml: Resistant Klebsiella pneumoniae Tetracycline ELIUD >8 ug/ml: Resistant Klebsiella pneumoniae Tobramycin ELIUD <=2 ug/ml: Susceptible Klebsiella pneumoniae Trimethoprim/Sulfa methoxazol e ELIUD <=0.5/9.5 ug/ml: Susceptible us Kenan Luna MD LAB MICROBIOLOGY - GENERAL ORD ERABLES Final Result [facility] [address] [place] [address] * (ABNORMAL) Blood gas panel, venous (07/09/2025 9:25 PM EDT) pH, Venous 7.48(H) 7.32 - 7.43 LAB HEMATOLOGY METHOD 07/09/2025 10:00 PM EDT [facility] pCO2, Venous 47 37 - 52 mmHg LAB HEMATOLOGY METHOD 07/09/2025 10:00 PM EDT [facility] pO2, Venous 32 25 - 40 mmHg LAB HEMATOLOGY METHOD 07/09/2025 10:00 PM EDT [facility] SO2, Measured, Venous 54(L) 65 - 80 % LAB HEMATOLOGY METHOD 07/09/2025 10:00 PM EDT [facility] Base Excess, Venous 9.9(H) -2.0 - 3.0 mmol/L LAB HEMATOLOGY METHOD 07/09/2025 10:00 PM EDT [facility] Bicarbonate, Calculated, Venous 35(H) 22 - 26 mmol/L LAB HEMATOLOGY METHOD 07/09/2025 10:00 PM EDT [facility] Hematocrit, Whole Blood 36.4 34.0 - 45.0 % LAB HEMATOLOGY METHOD 07/09/2025 10:00 PM EDT [facility] Sodium, Whole Blood 139 136 - 145 mmol/L LAB HEMATOLOGY METHOD 07/09/2025 10:00 PM EDT [facility] Potassium, Whole Blood 3.0(L) 3.6 - 4.9 mmol/L LAB HEMATOLOGY METHOD 07/09/2025 10:00 PM EDT [facility] Chloride, Whole Blood 94(L) 97 - 107 mmol/L LAB HEMATOLOGY METHOD 07/09/2025 10:00 PM EDT [facility] Glucose, Whole Blood 82 74 - 99 mg/dL LAB HEMATOLOGY METHOD 07/09/2025 10:00 PM EDT [facility] Lactate, Venous, Whole Blood 2.6(H) 0.5 - 2.2 mmol/L LAB HEMATOLOGY METHOD 07/09/2025 10:00 PM EDT [facility] Ionized Calcium, Whole Blood 4.5(L) 4.6 - 5.1 mg/dL LAB HEMATOLOGY METHOD 07/09/2025 10:00 PM EDT [facility] Blood Venous blood specimen / Unknown Venipuncture / Unknown 07/09/2025 9:25 PM EDT 07/09/2025 9:59 PM EDT us Kenan Luna MD LAB BLOOD ORDERABLES Final Res ult [facility] [address] [place] [address] * XR Chest 1 View (07/09/2025 8:56 [...] Pepe Tinsley MD on 07/09/2025 7:23 PM Steve Blood MD IMG XR PROCEDURES Final [...] Aba Saab MD on 07/09/2025 9:00 PM Steve Blood MD IMG CT PROCEDURES Final Resul t * ED HIV 1/2 Antibody/Antigen Screen w/Reflex to HIV 1/2 Differentiation (07/09/2025 6:33 PM EDT) [facility] HIV 1 & 2 Antibody/Antigen Screen Non Reactive Non Reactive 07/09/2025 8:13 PM EDT [facility] Comment:Screening for HIV 1 & 2 antibodies, and P24 antigen is NONREACTIVE. No confirmatory testing is required. Blood Venous blood specimen / Unknown Venipuncture / Unknown 07/09/2025 6:33 PM EDT 07/09/2025 6:57 PM EDT Steve Blood MD LAB BLOOD ORDERABLES Final Re sult Performing Organization Address City/[facility]/ZIP Co de Phone Number [facility] [address] [place] [address] * (ABNORMAL) Lactic acid, venous (07/09/2025 6:33 PM EDT) [facility] Lactate, Venous, Whole Blood 5.0(H) 0.5 - 2.2 mmol/L LAB HEMATOLOGY METHOD 07/09/2025 7:14 PM EDT [facility] Blood Venous blood specimen / Unknown Venipuncture / Unknown 07/09/2025 6:33 PM EDT 07/09/2025 7:07 PM EDT Steve Blood MD LAB BLOOD ORDERABLES Final Re sult [facility] [address] [place] [address] * (ABNORMAL) Creatine Kinase (CK), Total (07/09/2025 6:33 PM EDT) Creatine Kinase, Plasma 29(L) 37 - 168 U/L 07/10/2025 12:00 AM EDT [facility] Blood Venous blood specimen / Unknown Venipuncture / Unknown 07/09/2025 6:33 PM EDT 07/09/2025 6:39 PM EDT Kenan Luna MD LAB BLOOD ORDERABLES Final Res ult Performing Organization Address [facility]/[place] [address] * Hepatitis C Antibody - ED (07/09/2025 6:33 PM EDT) Pathologist [facility] [place] Hepatitis C Antibody Negative Negative 07/09/2025 7:45 PM EDT [facility] Blood Venous blood specimen / Unknown Venipuncture / Unknown 07/09/2025 6:33 PM EDT 07/09/2025 6:57 PM EDT us Steve Blood MD LAB BLOOD ORDERABLES Final Re sult Performing Organization Address [facility] [place] [address] * APTT (07/09/2025 6:33 PM EDT) Pathologist [facility] [place] aPTT 31 25 - 35 sec 07/09/2025 6:58 PM EDT [facility] Blood Venous blood specimen / Unknown Venipuncture / Unknown 07/09/2025 6:33 PM EDT 07/09/2025 6:39 PM EDT Steve Blood MD LAB BLOOD ORDERABLES Final Re sult Performing Organization Address [facility] [place] [address] * (ABNORMAL) PT-INR (07/09/2025 6:33 PM EDT) Pathologist [facility] [place] Prothrombin Time 15.6(H) 12.0 - 14.3 sec 07/09/2025 6:56 PM EDT [facility] INR 1.3(H) 0.9 - 1.1 07/09/2025 6:56 PM EDT [facility] Blood Venous blood specimen / Unknown Venipuncture / Unknown 07/09/2025 6:33 PM EDT 07/09/2025 6:39 PM EDT Narrative [facility] - 07/09/2025 6:56 PM EDT OPTIMAL INR RANGES FOR PATIENT ON ORAL ANTICOAGULANT THERAPY Prevention of venous thromboembolism INR 2.0 to 3.0 In patients with heart disease: Atrial fibrillation INR 2.0 to 3.0 Valvular heart disease INR 2.0 to 3.0 Tissue heart valves INR 2.0 to 3.0 Mechanical prosthetic valves INR 2.5 to 3.5 Prevention of recurrent NM INR 2.5 to 3.5 us Steve Blood MD LAB BLOOD ORDERABLES Final Re sult [facility] [address] [place] [address] * (ABNORMAL) CBC (07/09/2025 6:33 PM EDT) WBC Count 6.24 3.70 - 10.30 10*3/uL LAB HEMATOLOGY METHOD 07/09/2025 6:45 PM EDT [facility] RBC Count 2.38(L) 3.90 - 5.20 10*6/uL LAB HEMATOLOGY METHOD 07/09/2025 6:45 PM EDT [facility] HGB 7.9(L) 11.2 - 15.7 g/dL LAB HEMATOLOGY METHOD 07/09/2025 6:45 PM EDT [facility] HCT 24.5(L) 34.0 - 45.0 % LAB HEMATOLOGY METHOD 07/09/2025 6:45 PM EDT [facility] Platelet Count 100(L) 155 - 369 10*3/uL LAB HEMATOLOGY METHOD 07/09/2025 6:45 PM EDT [facility] MCV 103(H) 79 - 98 fL LAB HEMATOLOGY METHOD 07/09/2025 6:45 PM EDT [facility] MCH 33.2(H) 26.0 - 32.0 pg LAB HEMATOLOGY METHOD 07/09/2025 6:45 PM EDT [facility] MCHC 32.2 30.7 - 35.5 g/dL LAB HEMATOLOGY METHOD 07/09/2025 6:45 PM EDT [facility] RDW 24.6(H) 11.5 - 14.5 % LAB HEMATOLOGY METHOD 07/09/2025 6:45 PM EDT [facility] MPV 10.1 8.8 - 12.5 fL LAB HEMATOLOGY METHOD 07/09/2025 6:45 PM EDT [facility] nRBC 0.0 <=0.0 per 100 WBCs LAB HEMATOLOGY METHOD 07/09/2025 6:45 PM EDT [facility] Blood Venous blood specimen / Unknown Venipuncture / Unknown 07/09/2025 6:33 PM EDT 07/09/2025 6:39 PM EDT Steve Blood MD LAB BLOOD ORDERABLES Final Re sult [facility] [address] [place] [address] * Type and screen (07/09/2025 6:33 PM [...] BLOOD BANK TEST ORDERABLE S Final Result BLOOD BANK [address] [place] [address], * Phosphorus (07/09/2025 6:33 PM EDT) Phosphorus, Plasma 4.1 2.5 - 4.5 mg/dL 07/09/2025 7:08 PM EDT [facility] Blood Venous blood specimen / Unknown Venipuncture / Unknown 07/09/2025 6:33 PM EDT 07/09/2025 6:39 PM EDT Steve Blood MD LAB BLOOD ORDERABLES Final Re sult Performing Organization Address [facility]/ZIP Co de Phone Number [facility] [address] [place] [address] * (ABNORMAL) Magnesium (07/09/2025 6:33 PM EDT) Magnesium, Plasma 1.4(L) 1.9 - 2.4 mg/dL 07/09/2025 7:08 PM EDT [facility] Blood Venous blood specimen / Unknown Venipuncture / Unknown 07/09/2025 6:33 PM EDT 07/09/2025 6:39 PM EDT Steve Blood MD LAB BLOOD ORDERABLES Final Re sult Performing Organization Address City/[facility]/ZIP Co de Phone Number [facility] [address] [place] [address] * (ABNORMAL) CMP (07/09/2025 6:33 PM EDT) Glucose, Plasma 142(H) 74 - 99 mg/dL 07/09/2025 7:08 PM EDT [facility] BUN, Plasma 18 8 - 23 mg/dL 07/09/2025 7:08 PM EDT [facility] Creatinine, Plasma 1.21(H) 0.60 - 1.10 mg/dL 07/09/2025 7:08 PM EDT [facility] BUN/Creatinine Ratio 15 07/09/2025 7:08 PM EDT [facility] Sodium, Plasma 138 136 - 145 mmol/L 07/09/2025 7:08 PM EDT [facility] Potassium, Plasma 3.4(L) 3.6 - 4.9 mmol/L 07/09/2025 7:08 PM EDT [facility] Chloride, Plasma 93(L) 97 - 107 mmol/L 07/09/2025 7:08 PM EDT [facility] CO2, Plasma 28 22 - 29 mmol/L 07/09/2025 7:08 PM EDT [facility] Anion Gap 17(H) 6 - 16 mmol/L 07/09/2025 7:08 PM EDT [facility] Total Calcium, Plasma 8.5(L) 8.9 - 10.2 mg/dL 07/09/2025 7:08 PM EDT [facility] Total Protein 6.7 6.3 - 7.9 g/dL 07/09/2025 7:08 PM EDT [facility] Albumin, Plasma 2.9(L) 3.5 - 5.2 g/dL 07/09/2025 7:08 PM EDT [facility] AST, Plasma 27 10 - 35 U/L 07/09/2025 7:08 PM EDT [facility] ALT, Plasma 15 10 - 35 U/L 07/09/2025 7:08 PM EDT [facility] Alkaline Phosphatase, Plasma 92 46 - 142 U/L 07/09/2025 7:08 PM EDT [facility] Total Bilirubin, Plasma 0.5 0.2 - 1.1 mg/dL 07/09/2025 7:08 PM EDT [facility] eGFRcr 49.5 mL/min/1.7 3m*2 07/09/2025 7:08 PM EDT [facility] Comment:Reported eGFRcr in m L/min/1.73m2 is based the CKD-EPI 2020 equation that does not use a race coefficient. Blood Venous blood specimen / Unknown Venipuncture / Unknown 07/09/2025 6:33 PM EDT 07/09/2025 6:39 PM EDT us Steve Blood MD LAB BLOOD ORDERABLES Final Re sult [facility] [address] [place] [address] * MR transfer of outside films (06/12/2025 9:39 PM EDT) Anatomical Region Laterality Modality Magnetic Resonan ce 06/12/2025 9:39 PM EDT us Rachel Soriano MD IMG MRI PROCEDURES Final Result * CT NEURO OUTSIDE IMAGES (06/12/2025 3:08 AM EDT) Anatomical Region Laterality Modality Computed Tomogra phy 06/12/2025 3:08 AM EDT us External Provider IMG CT PROCEDURES Final Result * (ABNORMAL) Hemoglobin A1c (11/17/2024 9:50 PM EST) Hemoglobin A1c 5.8(H) <5.7 % 11/17/2024 10:[address] [facility] Blood Venous blood specimen / Unknown Venipuncture / Unknown 11/17/2024 9:50 PM EST 11/17/2024 10:03 PM EST Narrative [facility] - 11/17/2024 10:31 PM EST HA1C Interpretive Data: Diagnosis of Diabetes: Diabetic > or = 6.5% Pre-diabetic 5.7 to 6.4% Non-diabetic < or = 5.6% Glycemic Targets for Type I and Type II Diabetics: Non- Adults <7.0% Adults <6.0% Children and Adolescents <7.5% Source: [place] [employer]. Standards of medical care in diabetes,2017. Diabetes Care.2017:40 (suppl 1):S1-S135. HbA1c assay performed by an ion-exchange chromatography method that is certified traceable to the DCCT. us Mari Vanegas APRN, DNP LAB BLOOD ORDERABLES Fi nal Result [facility] [address] [place] [address] from Last 3 Months or Most Recently Relevant to Health Maintenance Insurance [employer] [place] Advance Directives * Full Code (Latest Code Status on File) Date Activated Date Inactivated Comments 11/17/2024 8:13 PM 11/22/2024 8:51 PM Question Answer Comments Patient has decision-making capacity? Yes Care Teams Front Office Coordinator Relationship Specialty Start Date End Date Italo Camejo APRN [address] [place], [place] [id number] PCP - General 11/18/23
--- OUTSIDE RECORDS SUMMARY | 2025-08-22 02:53 | XMS_ITS | Encounter Summary ---
Author Organization [facility] nter Address [address] [place] [address] Care Team Providers Care Podiatrist Assistant Name Role Phone Rachel Pagan MD Unavailable Pati Rucker TELECOMMUNICATION EQUIPMENT REPAIRER Unavailable [phone] Sosa Gardner TELECOMMUNICATION EQUIPMENT REPAIRER Unavailable [phone] Linda Elizabeth DO Unavailable Angie Murray RN Unavailable Unavailab Lizandro Islas NP Primary Care Provider [phone] Encounter Details Date Type Department Care Team (Late st Contact Info) Description 08/10/2025 Telephone [facility] [address] 6[address] [place] [address] Yazan Castro DPM [address] [place] [address] Social History Tobacco Use Types [...] How often do you attend chur or zoroastrian services? More than 4 times per year [...] place to sleep or slept in a care home (including now)? No 11/11/2022 AUDIT-C Answer [...] for daily living? No 06/23/2025 [facility] Utilities Answer Date Recorded In the past [...] encounter Miscellaneous Notes * Telephone Encounter - Magda Herr MA - 08/16/2025 8:20 AM EDT Patient was seen in office on 08/13/2025 * Telephone Encounter - Faviola Toribio - 08/10/2025 11:01 AM EDT Pt daughter has called and she is on Eliquis and she is scheduled for an appt on Wednesday to have a toenail removal Wednesday.daughter has held her Eliquis since Wednesday is that gonna be long enough? Please advise. Her number is [phone] documented in this encounter Plan of Treatment Upcoming Encounters Date Type Department Care Team (Late st Contact Info) Description 08/27/2025 8:45 AM EDT Office Visit [facility] [address] 10[address] [place] [address] Rachel Pagan MD [address] [place] [address] 08/28/2025 1:00 PM EDT Office Visit [facility] [address] 6[address] [place] [address] Yazan Castro DPM [address] [place] [address] 08/29/2025 10:30 AM EDT Appointment [facility] MEDICAL ONCOLOGY [address] [place] [address] 09/06/2025 1:45 PM EDT Appointment [facility] ULTRASOUND [address]nd [place] [address] 09/12/2025 9:30 AM EDT Appointment [facility] MRI BLDG D [address], [place] [address] 09/28/2025 9:30 AM EST Office Visit [facility] [address] 1st [place] [address] Ky Jewell MD [address] [place] [address] 11/05/2025 2:45 PM EST Office Visit [facility]UR[facility] [address] [place] [address] Ruddy Mayes MD [address] [place] [address] 12/31/2025 11:30 AM EST Office Visit [facility] NE[facility] [address] [phone] 01/22/2026 9:00 AM EDT Office Visit [facility] [address] [address] [place] [phone] Allyn Toribio NP [address] [place] [phone] documented as of this encounter Goals Goal Patient Goal Type Associated Problems Recent Progress Patient-Stated? Author Patient's support system will participate in treatment General No Emily Dong documented as of this encounter Visit Diagnoses Not on filedocumented in this encounter Additional Health Concerns Assessment Noted Time PHQ-9 Depression Total Score: 0 06/23/20 10:00 AM EDT documented as of this encounter Care Teams Podiatrist Assistant Relationship Specialty Start Date End Date Lizandro Khan NP [address] [place] [address] PCP - General Family Medicine 07/23/25 Rachel Pagan MD [address] [place] [phone] Consulting Physician Oncology 11/11/22 Pati Rucker APRN [address] [place] [phone] Nurse Practitioner Oncology 12/21/22 Sosa Gardner APRN [address] [place] [phone] Nurse Practitioner Oncology 06/24/23 Linda Elizabeth DO [address] [place] [phone] Consulting Physician Oncology 03/01/25 Angie Murray RN [address] [place] [address] Nurse Navigator Oncology 06/26/25 documented as of this encounter
--- OUTSIDE RECORDS SUMMARY | 2025-08-22 02:53 | XMS_ITS | Encounter Summary ---
Author Organization [facility] nter Address [address] [place] [address] Care Team Providers Care Electrogalvanizing Machine Operator Name Role Phone Rachel Pagan MD Unavailable [phone] Pati Rucker TISSUE RECOVERY TECHNICIAN Unavailable [phone] Sosa Gardner TISSUE RECOVERY TECHNICIAN Unavailable [phone] Linda Elizabeth DO Unavailable Lizandro Khan ANIMAL CRUELTY INVESTIGATION SUPERVISOR Primary Care Provider [phone] Elsa Vazquez Unavailable Unavailable Angie Murray RN Unavailable Unavailab Lizandro Islas ANIMAL CRUELTY INVESTIGATION SUPERVISOR Primary Care Provider [phone] Reason for Referral * Consultation (Routine) - Authorized Specialty Diagnoses / Procedures Referred By Contac t Referred To Contact Podiatry Diagnoses Infected nailbed of toe, left Procedures OK OFFICE/OUTPATIENT NEW SF MDM 15 MINUTES OK OFFICE/OUTPATIENT NEW LOW MDM 30 MINUTES OK OFFICE/OUTPATIENT NEW MODERATE MDM 45 MINUTES OK OFFICE/OUTPATIENT NEW HIGH MDM 60 MINUTES OK OFFICE/OUTPATIENT ESTABLISHED SF MDM 10 MIN OK OFFICE/OUTPATIENT ESTABLISHED LOW MDM 20 MIN OK OFFICE/OUTPATIENT ESTABLISHED MOD MDM 30 MIN OK OFFICE/OUTPATIENT ESTABLISHED HIGH MDM 40 MIN Rachel Pagan MD [address] [facility] [place] [address] Phone: tel: fax: [facility] [address] [place] [address] Phone: tel: fax: Referral ID Status Reason Start Date Expiration Date Visits Requested Visits Authorized [id number] Authorized Specialty Services Required 07/04/2025 07/04/2026 1 3 Encounter Details Date Type Department Care Team (Late st Contact Info) Description 07/04/2025 Orders Only [facility] [address] [place] [address] Rachel Pagan MD [address] [place] [address] Infected nailbed of toe, left Social History Tobacco Use Types Packs/Day Years [...] often do you attend chur ch or mormonism services? More than 4 times per year 11/11/2022 Do you belong to any clubs o r organizations such as jew groups, unions, fraternal or athletic groups, or [...] needed for daily living? No 06/23/2025 [facility] Utilities Answer Date Recorded In [...] Entry Date Author No 10/27/2022 3:29 PM EST Demetri Mota RN documented in this encounter Plan of Treatment Upcoming Encounters Date Type Department Care Team (Late st Contact Info) Description 08/27/2025 8:45 AM EDT Office Visit [facility] [address] [place] [address] Rachel Pagan MD [address] [place] [address] 08/28/2025 1:00 PM EDT Office Visit [facility]RY [facility] [address] [place] [address] Yazan Castro DPM [address] [place] [address] 08/29/2025 10:30 AM EDT Appointment [facility] MEDICAL ONCOLOGY [address] [place] [address] 09/06/2025 1:45 PM EDT Appointment [facility] ULTRASOUND [address], [address] [place] [address] 09/12/2025 9:30 AM EDT Appointment [facility] MRI BLDG D [address], [place] [address] 09/28/2025 9:30 AM EST Office Visit [facility] CARDIOLOGY PRACT[facility] [address] 1st [place] [address] Ky Jewell MD [address] [place] [address] 11/05/2025 2:45 PM EST Office Visit [facility] NEUROLOGY [facility]ACT[facility] [address] [place] [address] Ruddy Mayes MD [address] [place] [address] [place] [address] 12/31/2025 11:30 AM EST Office Visit [facility] NEPHROLOGY PRACTICE [address] [place], [place] [phone] 01/22/2026 9:00 AM EDT Office Visit [facility]IOLOG[facility]ACT[facility] [address] [place] [address] Allyn Toribio NP [address] [place] [phone] Scheduled Referrals Name Type Priority Associated Diagnoses Order Schedule Ambulatory referral/appointment with Podiatry Outpatient Referral Routine Infected nailbed of toe, left Expected: 07/04/2025 (Approximate), Expires: 07/04/2026 documented as of this encounter Goals Goal Patient Goal Type Associated Problems Recent Progress Patient-Stated? Author Patient's support system will participate in treatment General Emily Ny documented as of this encounter Visit Diagnoses Diagnosis Infected nailbed of toe, left documented in this encounter Additional Health Concerns Assessment Noted Time PHQ-9 Depression Total Score: 0 06/23/20 10:00 AM EDT documented as of this encounter Care Teams Electrogalvanizing Machine Operator Relationship Specialty Start Date End Date Lizandro Khan NP [address] [place] [address] PCP - General Family Medicine 03/20/25 07/22/25 Lizandro Khan NP [address] [place] [address] PCP - General Family Medicine 07/23/25 Rachel Pagan MD [address] [place] [address] [place] [address] Consulting Physician Oncology 11/11/22 Pati Rucker APRN [address] [place] [phone] Nurse Practitioner Oncology 12/21/22 Sosa Gardner APRN [address] [place] [phone] Nurse Practitioner Oncology 06/24/23 Linda Elizabeth DO [address] [place] [address] Consulting Physician Oncology 03/01/25 Elsa Vazquez [address] [place] [address] Nurse Navigator Oncology 06/05/25 07/19/25 Angie Murray, ROLDAN [address] [place] [address] Nurse Navigator Oncology 06/26/25 documented as of this encounter
--- OUTSIDE RECORDS SUMMARY | 2025-08-22 02:53 | XMS_ITS | Encounter Summary ---
Author Organization [facility] nter Address [address] [place] [address] Care Team Providers Care Talent Solutions Manager Name Role Phone Rachel Pagan MD Unavailable [phone] Yesy Acuna RN Unavailable [phone] Pati Rucker LINING MAKER HAND Unavailable [phone] Sosa Gardner LINING MAKER HAND Unavailable [phone] Italo Camejo TRUCK LOADER Primary Care Provider [phone] Linda Elizabeth DO Unavailable Lizandro Khan TRUCK LOADER Primary Care Provider [phone] Elsa Vazquez Unavailable Unavailable Angie Murray RN Unavailable Unavailab Lizandro Islas TRUCK LOADER Primary Care Provider [phone] Encounter Details Date Type Department Care Team (Late st Contact Info) Description 04/14/2024 Orders Only [facility] ONCOLOGY PRACTICE [address], 10th [place] [address] Rachel Pagan MD [address] [place] [address] Non-small cell cancer of right lung Social History Tobacco Use Types Packs/Day Years Used Date Smoking Tobacco: Every Day Cigarettes 0.5 30 Passive Smoke Exposure: Current Smokeless Tobacco: Never Comments:Offered patient an appointment [...] How often do you attend chur or taoism services? More than 4 times per year 11/11/2022 Do you belong to any clubs o r organizations such as zoroastrianism groups, unions, fraternal or athletic groups, or [...] place to sleep or slept in a retirement (including now)? No 11/11/2022 Comments No Sex [...] AM EDT Office Visit [facility] ONCOLOGY PRACTICE [address], 10th [place] [address] Rachel Pagan MD [address] [place] [address] 08/28/2025 1:00 PM EDT Office Visit [facility] ORTHOPEDIC PODIATRY PRACTICE [address], 6th [place] [address] Yazan Castro DPM [address] [place] [address] 08/29/2025 10:30 AM EDT Appointment [facility] MEDICAL ONCOLOGY [address], 11th [place] [address] 09/06/2025 1:45 PM EDT Appointment [facility] ULTRASOUND [address], 2nd [place] [address] 09/12/2025 9:30 AM EDT Appointment [facility] MRI BLDG D [address], [place] [phone] 09/28/2025 9:30 AM EST Office Visit [facility] CARDIOLOGY PRACTICE [address], 1st Floor [facility] [place] [phone] Ky Jewell MD [address] [facility] [place] [phone] 11/05/2025 2:45 PM EST Office Visit [facility] NEUROLOGY PRACTICE [address], 8th [place] [address] Ruddy Mayes MD [address] [facility] [place] [address] 12/31/2025 11:30 AM EST Office Visit [facility] NEPHROLOGY PRACTICE [address] [phone] 01/22/2026 9:00 AM EDT Office Visit [facility] CARDIOLOGY PRACTICE [address], 1st Floor [facility] [place] [phone] Allyn Toribio NP [address] [place] [address] Scheduled Orders Name Type Priority Associated Diagnoses Orde r Schedule CBC auto differential Lab Routine Non-small cell cancer of right lung bi-weekly for 12 Occurrences starting 04/14/2024 until 04/14/2025 Comprehensive metabolic panel Lab Routine Non-small cell cancer of right lung bi-weekly for 12 Occurrences starting 04/14/2024 until 04/14/2025 documented as of this encounter Visit Diagnoses Diagnosis Non-small cell [...] documented as of this encounter Care Teams Talent Solutions Manager Relationship Specialty Start Date End Date Italo Camejo NP [address] [facility], [address] [place] [address] PCP - General Family Medicine 09/24/23 03/19/25 Lizandro Khan NP [address] [place] [address] PCP - General Family Medicine 03/20/25 07/22/25 Lizandro Khan NP [address] [place] [address] PCP - General Family Medicine 07/23/25 Rachel Pagan MD [address] [place] [address] [place] [address] Consulting Physician Oncology 11/11/22 Yesy Acuna RN [address] [place] [address] Nurse Navigator 11/12/22 03/05/25 Pati Rucker APRN [address] [place] [address] Nurse Practitioner Oncology 12/21/22 Sosa Gardner APRN [address] [place] [address] Nurse Practitioner Oncology 06/24/23 Linda Elizabeth DO [address] [place] [address] Consulting Physician Oncology 03/01/25 Elsa Vazquez [address] [place] [address] Nurse Navigator Oncology 06/05/25 07/19/25 Angie Murray RN [address] [place] [address] Nurse Navigator Oncology 06/26/25 documented as of this encounter
--- OUTSIDE RECORDS SUMMARY | 2025-08-22 02:54 | XMS_ITS | Encounter Summary ---
Author Organization [facility] nter Address [address] [place] [address] Care Team Providers Care Food Manager Name Role Phone Lizandro Khan AVIATION OPERATIONS SPECIALIST Primary Care Provider [phone] Rachel Pagan MD Unavailable [phone] Yesy Acuna RN Unavailable [phone] AVIATION OPERATIONS SPECIALIST Primary Care Provider [phone] Pati Rucker DEEP FAT COOK FRY Unavailable [phone] Sosa Gardner DEEP FAT COOK FRY Unavailable [phone] Italo Camejo AVIATION OPERATIONS SPECIALIST Primary Care Provider [phone] Linda Elizabeth DO Unavailable Lizandro Khan AVIATION OPERATIONS SPECIALIST Primary Care Provider [phone] Elsa Vazquez Unavailable Unavailable Angie Murray RN Unavailable Unavailab Lizandro Islas AVIATION OPERATIONS SPECIALIST Primary Care Provider [phone] Encounter Details Date Type Department Care Team (Late st Contact Info) Description 11/12/2022 Orders Only [facility] ONCOLOGY PRACTICE [address], 10th [place] [address] Katiana Moreno [address] [place] [address] Social History Tobacco Use Types Packs/Day Years Used Date Smoking Tobacco: Heavy Smoker Cigarettes 1 30 Smokeless Tobacco: Never Alcohol Use Standard Drinks/Week [...] do you attend [facility] or islam services? More than 4 times per year 11/11/2022 Do you belong to any clubs o r organizations such as hoahaoism groups, unions, fraternal or athletic groups, or [...] place to sleep or slept in a intermediate (including now)? No 11/11/2022 Comments No Sex [...] suspected to have Coronavirus/COVID-19? No / Unsure 11/13/2022 1:58 PM EST documented as of this encounter [...] ONCOLOGY PRACTICE [address], 10th [place] [address] Rachel Pagan MD [address] [place] [address] 08/28/2025 1:00 PM EDT Office Visit [facility] ORTHOPEDIC PODIATRY PRACTICE [address], 6th [place] [address] Yazan Castro DPM [address] [place] [address] 08/29/2025 10:30 AM EDT Appointment [facility] MEDICAL ONCOLOGY [address], 11th [place] [address] 09/06/2025 1:45 PM EDT Appointment [facility] ULTRASOUND [address], 2nd [place] [address] 09/12/2025 9:30 AM EDT Appointment [facility] MRI BLDG D [address], [place] [address] 09/28/2025 9:30 AM EST Office Visit [facility] CARDIOLOGY PRACTICE [address], 1st Floor [place] [phone] Ky Jewell MD [address] [facility] [place] [address] 11/05/2025 2:45 PM EST Office Visit [facility] NEUROLOGY PRACTICE [address], 8th [place] [address] Ruddy Mayes MD [facility] [address] [facility] [place] [address] 12/31/2025 11:30 AM EST Office Visit [facility] NEPHROLOGY PRACTICE [address] [phone] 01/22/2026 9:00 AM EDT Office Visit [facility] CARDIOLOGY PRACTICE [address], 1st [place] [address] Allyn Toribio NP [facility] [address] [place] [phone] documented as of this encounter Visit Diagnoses Not on filedocumented in this encounter Additional Health Concerns Infection [...] 05/18/20252024 12:02 PM EDT ESBL Escherichia coli (Urnile ry) Comment:Urine + ESBL E coli 05/15/25. Patient already noted to be in contact isolation. Tila Dia 05/21/25 8:47 AM Readmitted 06/12/25. Patient already noted to be in contact isolation. Tila Dia 06/12/25 1:24 PM 05/15/2025 05/15/2025 06/14/2025 7:28 PM E DT documented as of this encounter Care Teams Food Manager Relationship Specialty Start Date End Date Lizandro Khan NP [address] [place] [address] PCP - General 12/09/22 [address] NP [address] [place] [phone] PCP - General Family Medicine 12/10/22 09/23/23 Italo Camejo NP [address] [place] [address], [address] [place] [address] PCP - General Family Medicine 09/24/23 03/19/25 Lizandro Khan NP [address] [place] [address] PCP - General Family Medicine 03/20/25 07/22/25 Lizandro Khan NP [address] [place] [address] PCP - General Family Medicine 07/23/25 Rachel Pagan MD [address] [place], [place] [phone] Consulting Physician Oncology 11/11/22 Yesy Acuna, ROLDAN [address] [place], [place] [address] Nurse Navigator 11/12/22 03/05/25 Pati Rucker APRN [address] [place], [place] [phone] Nurse Practitioner Oncology 12/21/22 Sosa Gardner APRN [address] [place] [phone] Nurse Practitioner Oncology 06/24/23 Linda Elizabeth DO [address] [place], [place] [address] Consulting Physician Oncology 03/01/25 Elsa Vazquez [address] [place] [address] Nurse Navigator Oncology 06/05/25 07/19/25 Angie Murray RN [address] [place] [address] Nurse Navigator Oncology 06/26/25 documented as of this encounter
--- OUTSIDE RECORDS SUMMARY | 2025-08-22 02:54 | XMS_ITS | Encounter Summary ---
Author Organization [facility] nter Address [address] [place] [address] Care Team Providers Care Software Systems Architect Name Role Phone Rachel Pagan MD Unavailable [phone] Yesy Acuna RN Unavailable Pati Rucker SUPERVISOR DIAGNOSTIC Unavailable [phone] Sosa Gardner SUPERVISOR DIAGNOSTIC Unavailable [phone] Italo Camejo COASTAL TUG MATE Primary Care Provider [phone] Linda Elizabeth DO Unavailable Lizandro Khan COASTAL TUG MATE Primary Care Provider [phone] Elsa Vazquez Unavailable Unavailable Angie Murray RN Unavailable Unavailab Lizandro Islas COASTAL TUG MATE Primary Care Provider [phone] Encounter Details Date Type Department Care Team (Late st Contact Info) Description 10/27/2024 Orders Only [facility] ONCOLOGY PRACTICE [address], 10th [place] [address] Sosa Gardner APRN [address] [place] [address] Non-small cell cancer of right lung Social History Tobacco Use Types Packs/Day Years Used Date Smoking Tobacco: Every Day Cigarettes 0.5 30 Passive Smoke Exposure: Current Smokeless Tobacco: Never Comments:Offered patient an appointment at the health department for smoking cessation classes. Patient declined. Alcohol Use Standard Drinks/Week Comments Never 0 (1 standard drink = 0.6 oz pur e alcohol) [facility] Utilities Answer Date Recorded In the past 12 months has th e electric, gas, oil, or water company threatened to shut off services in your home? No 04/24/2024 Humiliation, Afraid, Rape, and Kick questionnair e [...] 11/11/2022 How often do you attend [facility] or orthodoxy services? More than 4 times per year [...] you have a drink containing alcohol? Never 04/24/2024 Q2: How many drinks containi ng alcohol do you have on a typical day when you are drinking? Patient does not drink Q3: How often do you have si x or more drinks on one occasion? Never 04/24/2024 Overall Financial Resource Strain (CARDIA) Answe r Date Recorded How hard is it for you to pa y for the very basics like food, housing, medical care, and heating? Not hard at all 04/24/2024 Exercise Vital Sign Answer Date Recorde d On average, how many days pe r week do you engage in moderate to strenuous exercise (like a brisk walk)? 0 days 04/24/2024 On average, how many minutes do you engage in exercise at this level? 0 min 04/24/2024 Hunger Vital Sign Answer Date Recorded Within the past 12 months, y ou worried that your food would run out before you got the money to buy more. Never true 04/24/20 24 Within the past 12 months, t he food you bought just didn't last and you didn't have money to get more. Never true 04/24/2024 PRAPARE - Transportation Answer Date Re corded In the past 12 months, has l ack of transportation kept you from medical appointments or from getting medications? No 04/15 In the past 12 months, has l ack of transportation kept you from meetings, work, or from getting things needed for daily living? No 04/24/2024 Housing Stability Vital Sign Answer Hector e [...] in a fci (including now)? No 11/11/2022 Comments No Sex [...] Description 08/27/2025 8:45 AM EDT Office Visit [facility] ONCOLOGY PRACTICE [address], 10th [place] [address] Rachel Pagan MD [address] [place] [address] 08/28/2025 1:00 PM EDT Office Visit [facility] ORTHOPEDIC PODIATRY PRACTICE [address], 6th [place] [address] Yazan Castro DPM [address] [place] [address] 08/29/2025 10:30 AM EDT Appointment [facility] MEDICAL ONCOLOGY [address], 11th [place] [address] 09/06/2025 1:45 PM EDT Appointment [facility] ULTRASOUND [address], 2nd [place] [address] 09/12/2025 9:30 AM EDT Appointment [facility] MRI BLDG D [address], [facility] [place] [address] 09/28/2025 9:30 AM EST Office Visit [facility] CARDIOLOGY PRACTICE [address], 1st Floor [place] [facility] [place] [address] Ky Jewell MD [address] [facility] [place] [address] 11/05/2025 2:45 PM EST Office Visit [facility] NEUROLOGY PRACTICE [address], 8th [place] [address] Ruddy Mayes MD [address] [facility] [place] [address] 12/31/2025 11:30 AM EST Office Visit [facility] NEPHROLOGY PRACTICE [address] [phone] 01/22/2026 9:00 AM EDT Office Visit [facility] CARDIOLOGY PRACTICE [address], 1st [place] [address] Allyn Toribio NP [address] [place] [phone] documented as of this encounter Procedures Procedure Name Priority Date/Time Associated Diagnosis Comments CBC WITH AUTO DIFFERENTIAL Routine 10/27/2024 12:34 PM EST Non-small cell cancer of right lung COMPREHENSIVE METABOLIC PANEL Routine 10/27/2024 12:34 PM EST Non-small cell cancer of right lung documented in this encounter Results * (ABNORMAL) Comprehensive metabolic panel (10/27/2024 12:34 PM EST) Sodium 140 134 - 143 mmol/L 10/27/2024 1:39 PM EST [facility] Potassium 3.8 3.2 - 4.6 mmol/L 10/27/2024 1:39 PM [facility] Chloride 110(H) 99 - 108 mmol/L 10/27/2024 1:39 PM [facility] CO2 26 19 - 29 mmol/L 10/27/2024 1:39 PM [facility] Anion Gap 4(L) 5 - 15 mmol/L 10/27/2024 1:39 PM [facility] BUN 12 7 - 20 mg/dL 10/27/2024 1:39 PM [facility] Creatinine 0.93 <=1.20 mg/dL 10/27/2024 1:39 PM [facility] BUN/Creatinine Ratio 12.90 10.00 - 20.00 ratio 10/27/2024 1:39 PM [facility] Glucose 189(H) 58 - 104 mg/dL 10/27/2024 1:39 PM [facility] Calcium 8.4 7.9 - 11.1 mg/dL 10/27/2024 1:39 PM [facility] AST 14 10 - 28 U/L 10/27/2024 1:39 PM [facility] ALT (SGPT) 15 <=40 U/L 10/27/2024 1:39 PM [facility] Alkaline Phosphatase 93 29 - 108 U/L 10/27/2024 1:39 PM [facility] Total Protein 5.7(L) 5.9 - 7.9 g/dL 10/27/2024 1:39 PM [facility] Albumin 3.1(L) 3.5 - 5.1 g/dL 10/27/2024 1:39 PM [facility] Globulin, Total 2.6 2.4 - 4.8 g/dL 10/27/2024 1:39 PM [facility] A/G Ratio 1.2 0.6 - 1.6 10/27/2024 1:39 PM [facility] Total Bilirubin 0.4 0.3 - 1.0 mg/dL 10/27/2024 1:39 PM [facility] eGFR (CKD-EPI) 64.2 >60.0 - 200.0 mL/min/1.7 3m*2 10/27/2024 1:39 PM [facility] Blood Venous blood specimen / Unknown Existing Catheter / Unknown 10/27/2024 12:34 PM EST 10/27/2024 12:47 PM EST [facility] - 10/27/2024 1:39 PM EST Please note possible changes in reference range and units reported due to change in methodology. us Sosa Gardner SUPERVISOR DIAGNOSTIC LAB BLOOD ORDERABLES Final Res ult [facility] [address] [place] [address], * (ABNORMAL) CBC auto differential (10/27/2024 12:34 PM EST) Auto WBC 6.9 3.8 - 11.0 10*3/uL 10/27/2024 12:54 PM [facility] RBC 4.14 3.73 - 5.13 10*6/uL 10/27/2024 12:54 PM [facility] Hemoglobin 13.8 11.2 - 15.3 g/dL 10/27/2024 12:54 PM [facility] Hematocrit 39.7 32.6 - 44.6 % 10/27/2024 12:54 PM [facility] MCV 96.0 78.8 - 96.0 fL 10/27/2024 12:54 PM [facility] MCH 33.4(H) 26.2 - 33.0 pg 10/27/2024 12:54 PM [facility] MCHC 34.8 32.7 - 35.1 g/dL 10/27/2024 12:54 PM [facility] RDW 13.7 12.1 - 16.1 % 10/27/2024 12:54 PM [facility] MPV 8.3 7.0 - 10.6 fL 10/27/2024 12:54 PM [facility] Neutrophils % 64 47 - 79 % 10/27/2024 12:54 PM [facility] Lymphocytes % 28 13 - 41 % 10/27/2024 12:54 PM [facility] Monocytes % 6 3 - 11 % 10/27/2024 12:54 PM [facility] Eosinophils % 2 0 - 6 % 10/27/2024 12:54 PM [facility] Basophils % 1 0 - 2 % 10/27/2024 12:54 PM [facility] Neutrophils Absolute 4.40 1.90 - 7.50 10*3/uL 10/27/2024 12:54 PM [facility] Lymphocytes Absolute 1.90 0.80 - 3.20 10*3/uL 10/27/2024 12:54 PM [facility] Monocytes Absolute 0.40 0.10 - 0.90 10*3/uL 10/27/2024 12:54 PM [facility] Eosinophils Absolute 0.20 0.00 - 0.40 10*3/uL 10/27/2024 12:54 PM [facility] Basophils Absolute 0.10 0.00 - 0.20 10*3/uL 10/27/2024 12:54 PM [facility] Platelets 217 138 - 402 10*3/uL 10/27/2024 12:54 PM [facility] Blood Venous blood specimen / Unknown Existing Catheter / Unknown 10/27/2024 12:34 PM EST 10/27/2024 12:47 PM EST us Sosa Gardner APRN LAB BLOOD ORDERABLES Final Res ult [facility] [address] [place] [address], documented in this encounter Visit Diagnoses Diagnosis Non-small cell cancer of right lung documented in this encounter Additional Health Concerns Infection Onset Date Last Indicated Resolved Time Respiratory Rule-Out 01/10/2025 01/10/2025 025 12:51 PM [...] 05/15/2025 05/15/2025 06/14/2025 7:28 PM E DT Assessment Noted Time PHQ-9 Depression Total Score: 0 04/24/20 11:02 AM EDT documented as of this encounter Care Teams Software Systems Architect Relationship Specialty Start Date End Date Italo Camejo NP [address] [facility], [address] [place] [address] PCP - General Family Medicine 09/24/23 03/19/25 Lizandro Khan NP [address] [place] [address] PCP - General Family Medicine 03/20/25 07/22/25 Lizandro Khan NP [address] [place] [address] PCP - General Family Medicine 07/23/25 Rachel Pagan MD [address] [place] [phone] Consulting Physician Oncology 11/11/22 Yesy Acuna, ROLDAN [address] [place] [address] Nurse Navigator 11/12/22 03/05/25 Pati Rucker APRN [address] [place] [phone] Nurse Practitioner Oncology 12/21/22 Sosa Gardner APRN [address] [place] [phone] Nurse Practitioner Oncology 06/24/23 Linda Elizabeth DO [address] [place] [address] Consulting Physician Oncology 03/01/25 Elsa Vazquez [address] [place] [address] Nurse Navigator Oncology 06/05/25 07/19/25 Angie Murray RN [address] [place] [address] Nurse Navigator Oncology 06/26/25 documented as of this encounter
--- OUTSIDE RECORDS SUMMARY | 2025-08-22 02:54 | XMS_ITS | Encounter Summary ---
Author Organization [facility] nter Address [address] [place] [address] Care Team Providers Care Public Relations Account Executive Name Role Phone Lizandro Khan FLOOR TECHNICIAN Primary Care Provider [phone] Rachel Pagan MD Unavailable [phone] Yesy Acuna RN Unavailable [phone] FLOOR TECHNICIAN Primary Care Provider [phone] Pati Rucker INSTALLER INSPECTOR FINAL Unavailable [phone] Sosa Gardner INSTALLER INSPECTOR FINAL Unavailable [phone] Italo Camejo FLOOR TECHNICIAN Primary Care Provider [phone] Linda Elizabeth DO Unavailable Lizandro Khan FLOOR TECHNICIAN Primary Care Provider [phone] Elsa Vazquez Unavailable Unavailable Angie Murray RN Unavailable Unavailab Lizandro Islas FLOOR TECHNICIAN Primary Care Provider [phone] Encounter Details Date Type Department Care Team (Late st Contact Info) Description 12/02/2022 Orders Only [facility] [address], 10th [place] [address] Rachel Pagan MD [address] [place] [address] Social History Tobacco Use Types Packs/Day Years Used Date Smoking Tobacco: Heavy Smoker Cigarettes 0.3 30 Smokeless Tobacco: Never Alcohol Use Standard [...] week 11/11/2022 How often do you attend [facility] or orthodox services? More than 4 times per year 11/11/2022 Do you belong to any clubs o r organizations such as mormonism groups, unions, fraternal or athletic groups, or [...] place to sleep or slept in a fpc (including now)? No 11/11/2022 Comments No Sex [...] suspected to have Coronavirus/COVID-19? No / Unsure 12/02/2022 9:09 AM EST documented as of this encounter Functional Status * Are you deaf or do you have serious difficulty hearing? Answer Date of Assessment Author No 10/27/2022 3:29 PM EST Demetri Mota RN * Are you blind or do you have serious difficulty seeing, even when wearing glasses? Answer Date of Assessment Author No 10/27/2022 3:29 PM Dmeetri Moser RN * Do you have serious [...] [facility] [address] 10th [place] [address] Rachel Pagan MD [address] [place] [address] 08/28/2025 1:00 PM EDT Office Visit [facility] ORTHOPEDIC PODIATRY PRACTICE [address], 6th [place] [address] Yazan Castro DPM [address] [place] [address] 08/29/2025 10:30 AM EDT Appointment [facility] MEDICAL ONCOLOGY [address], 11th [place] [address] 09/06/2025 1:45 PM EDT Appointment [facility] ULTRASOUND [address], 2nd [place] [address] 09/12/2025 9:30 AM EDT Appointment [facility] MRI BLDG D [address], [place] [address] 09/28/2025 9:30 AM EST Office Visit [facility] CARDIOLOGY PRACTICE [address], 1st Floor [place] [facility] [place] [address] Ky Jewell MD [facility] [address] [facility] [place] [address] 11/05/2025 2:45 PM EST Office Visit [facility] NEUROLOGY PRACTICE [address], 8th [place] [address] Ruddy Mayes MD [facility] [address] [facility] [place] [address] 12/31/2025 11:30 AM EST Office Visit [facility] NEPHROLOGY PRACTICE [address] [place] [address] 01/22/2026 9:00 AM EDT Office Visit [facility]ARDIOLOGY [facility]ACT[facility] [address], 1st Floor [facility] [place] [address] Allyn Toribio NP [address] [place], [place] [phone] documented as of this encounter Visit Diagnoses [...] documented as of this encounter Care Teams Public Relations Account Executive Relationship Specialty Start Date End Date Lizandro Khan NP [address] [place] [address] PCP - General 12/09/22 Viridiana Plaza NP [address] [place] [phone] PCP - General Family Medicine 12/10/22 09/23/23 Italo Camejo NP [address] [place] [address], [address] [place] [address] PCP - General Family Medicine 09/24/23 03/19/25 Lizandro Khan NP [address] [place] [address] PCP - General Family Medicine 03/20/25 07/22/25 Lizandro Khan NP [address] [place] [address] PCP - General Family Medicine 07/23/25 Rachel Pagan MD [address] [place] [phone] Consulting Physician Oncology 11/11/22 Yesy Acuna RN [address] [place] [address] Nurse Navigator 11/12/22 03/05/25 Pati Rucker APRN [address] [place] [address] Nurse Practitioner Oncology 12/21/22 Sosa Gardner APRN [address] [place] [address] Nurse Practitioner Oncology 06/24/23 Linda Elizabeth DO [address] [place] [address] Consulting Physician Oncology 03/01/25 Elsa Vazquez [address] [place] [address] Nurse Navigator Oncology 06/05/25 07/19/25 Angie Murray RN [address] [place] [address] Nurse Navigator Oncology 06/26/25 documented as of this encounter
--- OUTSIDE RECORDS SUMMARY | 2025-08-22 02:54 | XMS_ITS | Encounter Summary ---
Author Organization [facility] nter Address [address] [place] [address] Care Team Providers Care Lap Grinder Name Role Phone Rachel Pagan MD Unavailable [phone] Yesy Acuna RN Unavailable [phone] Pati Rucker DATA INTEGRITY ANALYST Unavailable [phone] Sosa Gardner DATA INTEGRITY ANALYST Unavailable [phone] Italo Camejo VOCATIONAL COUNSELOR Primary Care Provider [phone] Linda Elizabeth DO Unavailable Lizandro Khan VOCATIONAL COUNSELOR Primary Care Provider [phone] Elsa Vazquez Unavailable Unavailable Angie Murray RN Unavailable Unavailab Lizandro Islas VOCATIONAL COUNSELOR Primary Care Provider [phone] Encounter Details Date Type Department Care Team (Late st Contact Info) Description 07/26/2024 Orders Only [facility] ON[facility]Y PRACT[facility] [address], 10th [place] [address] Rachel Pagan MD [address] [place] [address] Non-small cell cancer of right lung Social History Tobacco Use Types Packs/Day Years Used Date Smoking Tobacco: Every Day Cigarettes 0.5 30 Passive Smoke Exposure: Current Smokeless Tobacco: Never Comments:Offered patient an appointment at the health department for smoking cessation classes. Patient declined. Alcohol Use Standard Drinks/Week Comments Never 0 (1 standard drink = 0.6 oz pur e alcohol) [facility] Utilities Answer Date Recorded In the past [...] week 11/11/2022 How often do you attend [facility] or spiritism services? More than 4 times per year [...] ONCOLOGY PRACTICE [address], 10th [place] [address] Rachel Pagan MD [address] [place] [address] 08/28/2025 1:00 PM EDT Office Visit [facility] ORTHOP[facility]IC PODIATRY PRACTICE [address], 6th [place] [address] Yazan Castro DPM [address] [place] [address] 08/29/2025 10:30 AM EDT Appointment [facility] MEDICAL ONCOLOGY [address], 11th [place] [address] 09/06/2025 1:45 PM EDT Appointment [facility] ULTRASOUND [address], 2nd [place] [address] 09/12/2025 9:30 AM EDT Appointment [facility] MRI BLDG D [address], [facility] [place] [address] 09/28/2025 9:30 AM EST Office Visit [facility] CARDIOLOGY PRACTICE [address], 1st Floor [place] [facility] [place] [address] Ky Jewell MD [address] [facility] [place] [address] 11/05/2025 2:45 PM EST Office Visit [facility] NEUROLOGY PRACTICE [address], 8th [place] [address] Ruddy Mayes MD [address] [facility] [place] [address] 12/31/2025 11:30 AM EST Office Visit [facility] NEPHROLOGY PRACTICE [address] [phone] 01/22/2026 9:00 AM EDT Office Visit [facility] CARDIOLOGY PRACTICE [address], 1st Floor [place] [facility] [place] [address] Allyn Toribio NP [address] [place] [address] documented as of this encounter Procedures Procedure Name Priority Date/Time Associated Diagnosis Comments CBC WITH AUTO DIFFERENTIAL Routine 07/26/2024 9:46 AM EDT Non-small cell cancer of right lung COMPREHENSIVE METABOLIC PANEL Routine 07/26/2024 9:46 AM EDT Non-small cell cancer of right lung documented in this encounter Results * (ABNORMAL) CBC auto differential (07/26/2024 9:46 AM EDT) Auto WBC 6.6 3.8 - 11.0 10*3/uL 07/26/2024 10:20 AM [facility] RBC 4.12 3.73 - 5.13 10*6/uL 07/26/2024 10:20 AM [facility] Hemoglobin 13.2 11.2 - 15.3 g/dL 07/26/2024 10:20 AM [facility] Hematocrit 39.0 32.6 - 44.6 % 07/26/2024 10:20 AM [facility] MCV 94.7 78.8 - 96.0 fL 07/26/2024 10:20 AM [facility] MCH 32.1 26.2 - 33.0 pg 07/26/2024 10:20 AM [facility] MCHC 33.8 32.7 - 35.1 g/dL 07/26/2024 10:20 AM [facility] RDW 14.6 12.1 - 16.1 % 07/26/2024 10:20 AM [facility] MPV 8.3 7.0 - 10.6 fL 07/26/2024 10:20 AM [facility] Neutrophils % 57 47 - 79 % 07/26/2024 10:20 AM [facility] Lymphocytes % 27 13 - 41 % 07/26/2024 10:20 AM [facility] Monocytes % 6 3 - 11 % 07/26/2024 10:20 AM [facility] Eosinophils % 9(H) 0 - 6 % 07/26/2024 10:20 AM [facility] Basophils % 1 0 - 2 % 07/26/2024 10:20 AM [facility] Neutrophils Absolute 3.80 1.90 - 7.50 10*3/uL 07/26/2024 10:20 AM [facility] Lymphocytes Absolute 1.80 0.80 - 3.20 10*3/uL 07/26/2024 10:20 AM [facility] Monocytes Absolute 0.40 0.10 - 0.90 10*3/uL 07/26/2024 10:20 AM [facility] Eosinophils Absolute 0.60(H) 0.00 - 0.40 10*3/uL 07/26/2024 10:20 AM [facility] Basophils Absolute 0.10 0.00 - 0.20 10*3/uL 07/26/2024 10:20 AM [facility] Platelets 205 138 - 402 10*3/uL 07/26/2024 10:20 AM [facility] Blood Venous blood specimen / Unknown Existing Catheter / Unknown 07/26/2024 9:46 AM EDT 07/26/2024 10:08 AM EDT us Rachel Soriano MD LAB BLOOD ORDERABLES Final Result Performing Organization Address City/State/[facility] Co de Phone Number [facility] [address] [place] [address], * (ABNORMAL) Comprehensive metabolic panel (07/26/2024 9:46 AM EDT) Sodium 142 133 - 144 mmol/L 07/26/2024 10:36 AM [facility] Potassium 4.0 3.6 - 5.2 mmol/L 07/26/2024 10:36 AM [facility] Chloride 113(H) 98 - 107 mmol/L 07/26/2024 10:36 AM [facility] CO2 26 21 - 32 mmol/L 07/26/2024 10:36 AM [facility] Anion Gap 3(L) 5 - 15 mmol/L 07/26/2024 10:36 AM [facility] BUN 11 7 - 18 mg/dL 07/26/2024 10:36 AM [facility] Creatinine 1.20(H) 0.55 - 1.02 mg/dL 07/26/2024 10:36 AM [facility] BUN/Creatinine Ratio 9.17(L) 10.00 - 20.00 ratio 07/26/2024 10:36 AM [facility] Glucose 160(H) 70 - 110 mg/dL 07/26/2024 10:36 AM [facility] Calcium 8.7 8.5 - 10.1 mg/dL 07/26/2024 10:36 AM [facility] AST 17 15 - 37 U/L 07/26/2024 10:36 AM [facility] ALT (SGPT) 22 13 - 56 U/L 07/26/2024 10:36 AM [facility] Alkaline Phosphatase 120(H) 45 - 117 U/L 07/26/2024 10:36 AM [facility] Total Protein 5.9(L) 6.4 - 8.4 g/dL 07/26/2024 10:36 AM [facility] Albumin 2.6(L) 3.4 - 5.0 g/dL 07/26/2024 10:36 AM [facility] Globulin, Total 3.3 2.4 - 4.8 g/dL 07/26/2024 10:36 AM [facility] A/G Ratio 0.8 0.6 - 1.6 07/26/2024 10:36 AM [facility] Total Bilirubin 0.3 0.0 - 1.0 mg/dL 07/26/2024 10:36 AM [facility] eGFR (CKD-EPI) 47.5(L) >60.0 - 200.0 mL/min/1.7 3m*2 07/26/2024 10:36 AM [facility] Blood Venous blood specimen / Unknown Existing Catheter / Unknown 07/26/2024 9:46 AM EDT 07/26/2024 10:08 AM EDT us Rachel Soriano MD LAB BLOOD ORDERABLES Final Result [facility] [address] [place] [address], documented in this encounter Visit Diagnoses Diagnosis [...] Time PHQ-9 Depression Total Score: 0 04/24/20 24 11:02 AM EDT documented as of this encounter Care Teams Lap Grinder Relationship Specialty Start Date End Date Italo Camejo NP [address] [facility], [address] [place] [address] PCP - General Family Medicine 09/24/23 03/19/25 Lizandro Khan NP [address] [place] [address] PCP - General Family Medicine 03/20/25 07/22/25 Lizandro Khan NP [address] [place] [address] PCP - General Family Medicine 07/23/25 Rachel Pagan MD [address] [place] [phone] Consulting Physician Oncology 11/11/22 Yesy Acuna, ROLDAN [address] [place] [address] Nurse Navigator 11/12/22 03/05/25 Pati Rucker APRN [address] [place] [address] Nurse Practitioner Oncology 12/21/22 Sosa Gardner APRN [address] [place] [address] Nurse Practitioner Oncology 06/24/23 Linda Elizabeth DO [address] [place] [address] Consulting Physician Oncology 03/01/25 Elsa Vazquez [address] [place] [address] Nurse Navigator Oncology 06/05/25 07/19/25 Angie Murray, ROLDAN [address] [place] [address] Nurse Navigator Oncology 06/26/25 documented as of this encounter
--- OUTSIDE RECORDS SUMMARY | 2025-08-22 02:54 | XMS_ITS | Encounter Summary ---
Author Organization [facility] nter Address [address] [place] [address] Care Team Providers Care Mapping Engineer Name Role Phone Rachel Pagan MD Unavailable [phone] Yesy Acuna RN Unavailable [phone] Pati Rucker RN ACCESS Unavailable [phone] Sosa Gardner RN ACCESS Unavailable [phone] Italo Camejo EQUIPMENT PLANNER Primary Care Provider [phone] Linda Elizabeth DO Unavailable Lizandro Khan EQUIPMENT PLANNER Primary Care Provider [phone] Elsa Vazquez Unavailable Unavailable Angie Murray RN Unavailable Unavailab Lizandro Islas EQUIPMENT PLANNER Primary Care Provider [phone] Encounter Details Date Type Department Care Team (Late st Contact Info) Description 08/09/2024 Orders Only [facility] [address], 10th [place] [address] Rachel Pagan MD [address] [place] [address] Non-small cell cancer of right lung Social History Tobacco Use Types Packs/Day Years Used Date Smoking Tobacco: Every Day Cigarettes 0.5 30 Passive Smoke Exposure: Current Smokeless Tobacco: Never Comments:Offered patient an appointment at the health department for smoking cessation classes. Patient declined. Alcohol Use Standard Drinks/Week Comments Never 0 (1 standard drink = 0.6 oz pur e alcohol) [facility] Utilities Answer Date Recorded In [...] 11/11/2022 How often do you attend [facility] or pentecostal services? More than 4 times per year 11/11/2022 Do you belong to any clubs o r organizations such as amish groups, unions, fraternal or athletic groups, or [...] in a detention (including now)? No 11/11/2022 Comments No Sex [...] ONCOLOGY PRACTICE [address], 10th [place] [address] Rachel Pagan MD [address] [place] [address] 08/28/2025 1:00 PM EDT Office Visit [facility] ORTHOPEDIC PODIATRY PRACTICE [address], 6th [place] [address] Yazan Castro DPM [address] [place] [address] 08/29/2025 10:30 AM EDT Appointment [facility] MEDICAL ONCOLOGY [address], 11th [place] [address] 09/06/2025 1:45 PM EDT Appointment [facility] ULTRASOUND [address], 2nd [place] [address] 09/12/2025 9:30 AM EDT Appointment [facility] MRI BLDG D [address], [facility] [place] [address] 09/28/2025 9:30 AM EST Office Visit [facility] CARDIOLOGY PRACTICE [address], 1st Floor [place] [place] [address] Ky Jewell MD [address] [facility] [place] [address] 11/05/2025 2:45 PM EST Office Visit [facility] NEUROLOGY PRACT[facility] [address], 8th [place] [address] Ruddy Mayes MD [address] [facility] [place] [address] 12/31/2025 11:30 AM EST Office Visit [facility] NEPHROLOGY PRACTICE [address] [phone] 01/22/2026 9:00 AM EDT Office Visit [facility] CARDIOLOGY PRACTICE [address], 1st Floor [place] [facility] [place] [address] Allyn Toribio NP [address] [place] [address] documented as of this encounter Procedures Procedure Name Priority Date/Time Associated Diagnosis Comments CBC WITH AUTO DIFFERENTIAL Routine 08/09/2024 9:16 AM EDT Non-small cell cancer of right lung COMPREHENSIVE METABOLIC PANEL Routine 08/09/2024 9:16 AM EDT Non-small cell cancer of right lung documented in this encounter Results * (ABNORMAL) CBC auto differential (08/09/2024 9:16 AM EDT) Auto WBC 8.7 3.8 - 11.0 10*3/uL 08/09/2024 9:46 AM [facility] RBC 4.18 3.73 - 5.13 10*6/uL 08/09/2024 9:46 AM [facility] Hemoglobin 13.6 11.2 - 15.3 g/dL 08/09/2024 9:46 AM [facility] Hematocrit 39.9 32.6 - 44.6 % 08/09/2024 9:46 AM [facility] MCV 95.5 78.8 - 96.0 fL 08/09/2024 9:46 AM [facility] MCH 32.5 26.2 - 33.0 pg 08/09/2024 9:46 AM [facility] MCHC 34.1 32.7 - 35.1 g/dL 08/09/2024 9:46 AM [facility] RDW 14.1 12.1 - 16.1 % 08/09/2024 9:46 AM [facility] MPV 8.3 7.0 - 10.6 fL 08/09/2024 9:46 AM [facility] Neutrophils % 60 47 - 79 % 08/09/2024 9:46 AM [facility] Lymphocytes % 27 13 - 41 % 08/09/2024 9:46 AM [facility] Monocytes % 6 3 - 11 % 08/09/2024 9:46 AM [facility] Eosinophils % 7(H) 0 - 6 % 08/09/2024 9:46 AM [facility] Basophils % 1 0 - 2 % 08/09/2024 9:46 AM [facility] Neutrophils Absolute 5.20 1.90 - 7.50 10*3/uL 08/09/2024 9:46 AM [facility] Lymphocytes Absolute 2.30 0.80 - 3.20 10*3/uL 08/09/2024 9:46 AM [facility] Monocytes Absolute 0.50 0.10 - 0.90 10*3/uL 08/09/2024 9:46 AM [facility] Eosinophils Absolute 0.60(H) 0.00 - 0.40 10*3/uL 08/09/2024 9:46 AM [facility] Basophils Absolute 0.10 0.00 - 0.20 10*3/uL 08/09/2024 9:46 AM [facility] Platelets 203 138 - 402 10*3/uL 08/09/2024 9:46 AM [facility] Blood Venous blood specimen / Unknown Existing Catheter / Unknown 08/09/2024 9:16 AM EDT 08/09/2024 9:32 AM EDT us Rachel Soriano MD LAB BLOOD ORDERABLES Final Result Performing Organization Address City/State/[facility] Co de Phone Number [facility] [address] [place] [address], * (ABNORMAL) Comprehensive metabolic panel (08/09/2024 9:16 AM EDT) Sodium 141 133 - 144 mmol/L 08/09/2024 10:05 AM [facility] Potassium 4.0 3.6 - 5.2 mmol/L 08/09/2024 10:05 AM [facility] Chloride 112(H) 98 - 107 mmol/L 08/09/2024 10:05 AM [facility] CO2 26 21 - 32 mmol/L 08/09/2024 10:05 AM [facility] Anion Gap 3(L) 5 - 15 mmol/L 08/09/2024 10:05 AM [facility] BUN 15 7 - 18 mg/dL 08/09/2024 10:05 AM [facility] Creatinine 1.20(H) 0.55 - 1.02 mg/dL 08/09/2024 10:05 AM [facility] BUN/Creatinine Ratio 12.50 10.00 - 20.00 ratio 08/09/2024 10:05 AM [facility] Glucose 149(H) 70 - 110 mg/dL 08/09/2024 10:05 AM [facility] Calcium 8.6 8.5 - 10.1 mg/dL 08/09/2024 10:05 AM [facility] AST 16 15 - 37 U/L 08/09/2024 10:05 AM [facility] ALT (SGPT) 23 13 - 56 U/L 08/09/2024 10:05 AM [facility] Alkaline Phosphatase 117 45 - 117 U/L 08/09/2024 10:05 AM [facility] Total Protein 5.8(L) 6.4 - 8.4 g/dL 08/09/2024 10:05 AM [facility] Albumin 2.6(L) 3.4 - 5.0 g/dL 08/09/2024 10:05 AM [facility] Globulin, Total 3.2 2.4 - 4.8 g/dL 08/09/2024 10:05 AM [facility] A/G Ratio 0.8 0.6 - 1.6 08/09/2024 10:05 AM [facility] Total Bilirubin 0.4 0.0 - 1.0 mg/dL 08/09/2024 10:05 AM [facility] eGFR (CKD-EPI) 47.5(L) >60.0 - 200.0 mL/min/1.7 3m*2 08/09/2024 10:05 AM [facility] Blood Venous blood specimen / Unknown Existing Catheter / Unknown 08/09/2024 9:16 AM EDT 08/09/2024 9:34 AM EDT us Rachel Soriano MD LAB BLOOD ORDERABLES Final Result [facility] [address] [place] [address], documented in this encounter Visit Diagnoses Diagnosis [...] documented as of this encounter Care Teams Mapping Engineer Relationship Specialty Start Date End Date Italo Camejo NP [address] [facility], [address] [place] [address] PCP - General Family Medicine 09/24/23 03/19/25 Lizandro Khan NP [address] [place] [address] PCP - General Family Medicine 03/20/25 07/22/25 Lizandro Khan NP [address] [place] [address] PCP - General Family Medicine 07/23/25 Rachel Pagan MD [address] [place] [phone] Consulting Physician Oncology 11/11/22 Yesy Acuna, RN [address] [place] [address] Nurse Navigator 11/12/22 03/05/25 Pati Rucker APRN [address] [place] [address] Nurse Practitioner Oncology 12/21/22 Sosa Gardner APRN [address] [place] [address] Nurse Practitioner Oncology 06/24/23 Linda Elizabeth DO [address] [place] [address] Consulting Physician Oncology 03/01/25 Elsa Vazquez [address] [place], [place] [address] Nurse Navigator Oncology 06/05/25 07/19/25 Angie Murray, ROLDAN [address] [place], [place] [address] Nurse Navigator Oncology 06/26/25 documented as of this encounter
--- OUTSIDE RECORDS SUMMARY | 2025-08-22 02:54 | XMS_ITS | Encounter Summary ---
Author Organization [facility] nter Address [address] [place] [address] Care Team Providers Care Carpet Finishing Supervisor Name Role Phone Rachel Pagan MD Unavailable [phone] Pati Rucker IN FLIGHT REFUELING SYSTEM REPAIRER Unavailable [phone] Sosa Gardner IN FLIGHT REFUELING SYSTEM REPAIRER Unavailable [phone] Linda Elizabeth DO Unavailable Angie Murray RN Unavailable Unavailab Lizandro Islas NP Primary Care Provider [phone] Encounter Details Date Type Department Care Team (Late st Contact Info) Description 08/15/2025 Abstract [facility] ORTHOPEDIC PODIATRY PRACTICE [address], 6th [place] [address] Yazan Castro DPM [address] [place] [address] Social History Tobacco Use Types [...] How often do you attend chur or taoist services? More than 4 times per year 11/11/2022 Do you belong to any clubs o r organizations such as presybeterian groups, unions, fraternal or athletic groups, or [...] place to sleep or slept in a mcc (including now)? No 11/11/2022 AUDIT-C Answer Date [...] things needed for daily living? No 06/23/2025 [facility] Utilities Answer Date Recorded In the past 12 months has th e [employer], gas, oil, or water [employer] threatened to shut off services in your [...] PRACTICE [address], 10th [place] [address] Rachel Pagan MD [address] [place] [address] 08/28/2025 1:00 PM EDT Office Visit [facility] ORTHOPEDIC PODIATRY PRACTICE [address], 6th [place] [address] Yazan Castro DPM [address] [place] [address] 08/29/2025 10:30 AM EDT Appointment [facility] MEDICAL ONCOLOGY [address], 11th [place] [address] 09/06/2025 1:45 PM EDT Appointment [facility] ULTRASOUND [address], 2nd [place] [address] 09/12/2025 9:30 AM EDT Appointment [facility] MRI BLDG D [address], Bldg D [place] [phone] 09/28/2025 9:30 AM EST Office Visit [facility] CARDIOLOGY PRACTICE [address], 1st [place] [address] Ky Jewell MD [facility] [address] [facility] [place] [address] 11/05/2025 2:45 PM EST Office Visit [facility] NEUROLOGY PRACTICE [address], 8th [place] [address] Ruddy Mayes MD [facility] [address] [facility] [place] [address] 12/31/2025 11:30 AM EST Office Visit [facility] NEPHROLOGY PRACTICE [address] [id number] 01/22/2026 9:00 AM EDT Office Visit [facility] CARDIOLOGY PRACTICE [address], 1st Floor [place] [phone] Allyn Toribio NP [address] [place] [address] documented as of this encounter Goals Goal Patient Goal Type Associated Problems Recent Progress Patient-Stated? Author Patient's support system will participate in treatment General No Emily Dong documented as of this encounter Visit Diagnoses Not on filedocumented in this encounter Additional Health Concerns Assessment Noted Time PHQ-9 Depression Total Score: 0 06/23/20 25 10:00 AM EDT documented as of this encounter Care Teams Carpet Finishing Supervisor Relationship Specialty Start Date End Date Lizandro Khan NP [address] [place] [address] PCP - General Family Medicine 07/23/25 Rachel Pagan MD [address] [place] [phone] Consulting Physician Oncology 11/11/22 Pati Rucker APRN [address] [place] [address] Nurse Practitioner Oncology 12/21/22 Sosa Gardner APRN [address] [place] [address] Nurse Practitioner Oncology 06/24/23 Linda Elizabeth DO [address] [place] [address] Consulting Physician Oncology 03/01/25 Angie Murray RN [address] [place] [address] Nurse Navigator Oncology 06/26/25 documented as of this encounter
--- OUTSIDE RECORDS SUMMARY | 2025-08-22 02:54 | XMS_ITS | Encounter Summary ---
Author Organization [facility] nter Address [address] [place] [address] Care Team Providers Care Handbag Frames Inspector Name Role Phone Rachel Pagan MD Unavailable [phone] Pati Rucker BUNCH BREAKER MACHINE OPERATOR Unavailable Sosa Gardner BUNCH BREAKER MACHINE OPERATOR Unavailable [phone] Linda Elizabeth DO Unavailable Angie Murray RN Unavailable Unavailab Lizandro Islas NP Primary Care Provider [phone] Reason for Visit * Reason Onset Date Comments Glucophage 08/20/2025 Encounter Details Date Type Department Care Team (Late st Contact Info) Description 08/20/2025 Telephone [facility] PUBLIC SAFETY POLICE/REHAB PRACTICE [address], 8th [place] [address] Nuvia Johnson MD [address] [place] [address] Glucophage Social History Tobacco Use Types Packs/Day Years [...] week 11/11/2022 How often do you attend [facility] or moravian services? More than 4 times [...] place to sleep or slept in a penitentiary (including now)? No 11/11/2022 AUDIT-C Answer Date [...] things needed for daily living? No 06/23/2025 [facility] Utilities Answer Date Recorded In [...] encounter Miscellaneous Notes * Telephone Encounter - Flores Bonds RN - 08/20/2025 9:22 AM EDT Called pt daughter on HIP[employer] back and stated she stated she needs an update on the Rx Glucophage. Daughter stated that pt was discharged home on this from 10th floor and asking for a month supply until she can get back in with primary doctor. Call back # [phone]. Pharmacy: [facility] documented in this encounter Plan of Treatment Upcoming Encounters Date Type Department Care Team (Late st Contact Info) Description 08/27/2025 8:45 AM EDT Office Visit [facility] ONCOLOGY PRACTICE [address], 10th Floor Clinic [place] [address] Rachel Pagan MD [address] [place] [address] 08/28/2025 1:00 PM EDT Office Visit [facility] ORTHOPEDIC PODIATRY PRACTICE [address], 6th [place] [address] Yazan Castro DPM [address] [facility] [place] [phone] 08/29/2025 10:30 AM EDT Appointment [facility] MEDICAL ONCOLOGY [address], 11th [place] [address] 09/06/2025 1:45 PM EDT Appointment [facility] ULTRASOUND [address], 2nd Floor [place] [phone] 09/12/2025 9:30 AM EDT Appointment [facility] MRI BLDG D [address], [place] [address] 09/28/2025 9:30 AM EST Office Visit [facility] CARDIOLOGY PRACTICE [address], 1st [place] [address] Ky Jewell MD [address] [place] [address] 11/05/2025 2:45 PM EST Office Visit [facility] NEUROLOGY PRACTICE [address], 8th [place] [address] Ruddy Mayes MD [address] [place] [address] 12/31/2025 11:30 AM EST Office Visit [facility] NEPHROLOGY PRACTICE [address] [place] [address] 01/22/2026 9:00 AM EDT Office Visit [facility] CARDIOLOGY PRACTICE [address], 1st [place] [address] Allyn Toribio NP [address] [place] [address] documented as of this encounter Goals Goal Patient Goal Type Associated Problems Recent Progress Patient-Stated? Author Patient's support system will participate in treatment General Emily Ny documented as of this encounter Visit Diagnoses Not on filedocumented in this encounter Additional Health Concerns Assessment Noted Time PHQ-9 Depression Total Score: 0 06/23/20 25 10:00 AM EDT documented as of this encounter Care Teams Handbag Frames Inspector Relationship Specialty Start Date End Date Lizandro Khan NP [address] [place] [address] PCP - General Family Medicine 07/23/25 Rachel Pagan MD [address] [place] [phone] Consulting Physician Oncology 11/11/22 Pati Rucker APRN [address] [place] [phone] Nurse Practitioner Oncology 12/21/22 Sosa Gardner APRN [address] [place] [phone] Nurse Practitioner Oncology 06/24/23 Linda Elizabeth DO [address] [place] [phone] Consulting Physician Oncology 03/01/25 Angie Murray, ROLDAN [address] [place] [address] Nurse Navigator Oncology 06/26/25 documented as of this encounter
--- OUTSIDE RECORDS SUMMARY | 2025-08-22 02:54 | XMS_ITS | Encounter Summary ---
Author Organization [facility] nter Address [address] [place] [address] Care Team Providers Care Underlay Stitcher Name Role Phone Rachel Pagan MD Unavailable [phone] Pati Rucker ASSISTANT INFANT TEACHER Unavailable [phone] Sosa Gardner ASSISTANT INFANT TEACHER Unavailable [phone] Linda Elizabeth DO Unavailable Angie Murray RN Unavailable Unavailab Lizandro Islas NP Primary Care Provider [phone] Encounter Details Date Type Department Care Team (Latest Contact Info) Description 08/13/2025 Travel Social History Tobacco Use Types Packs/Day [...] often do you attend chur ch or tenriism services? More than 4 times per year [...] things needed for daily living? No 06/23/2025 [facility] Utilities Answer Date Recorded In [...] ONCOLOGY PRACTICE [address], 10th [place] [address] Rachel Pagan MD [address] [place] [address] 08/28/2025 1:00 PM EDT Office Visit [facility] ORTHOPEDIC PODIATRY PRACTICE [address], 6th [place] [address] Yazan Castro DPM [address] [place] [address] 08/29/2025 10:30 AM EDT Appointment [facility] MEDICAL ONCOLOGY [address], 11th [place] [address] 09/06/2025 1:45 PM EDT Appointment [facility] ULTRASOUND [address], 2nd [place] [address] 09/12/2025 9:30 AM EDT Appointment [facility] MRI BLDG D [address], [place] [address] 09/28/2025 9:30 AM EST Office Visit [facility] CARDIOLOGY PRACTICE [address], 1st [place] [address] Ky Jewell MD [address] [place] [phone] 11/05/2025 2:45 PM EST Office Visit [facility] NEUROLOGY PRACTICE [address], 8th [place] [address] Ruddy Mayes [place] [address] [place] [address] [place] [address] 12/31/2025 11:30 AM EST Office Visit [facility] NEPHROLOGY PRACTICE [address] [place] [address] 01/22/2026 9:00 AM EDT Office Visit [facility] CARDIOLOGY PRACTICE [address], 1st [place] [address] Allyn Toribio NP [address] [place], [place] [phone] documented as of this encounter Goals Goal Patient Goal Type Associated Problems Recent Progress Patient-Stated? Author Patient's support system will participate in treatment General Emily Ny documented as of this encounter Visit Diagnoses Not on filedocumented in this encounter Additional Health Concerns Assessment Noted Time PHQ-9 Depression Total Score: 0 06/23/20 10:00 AM EDT documented as of this encounter Care Teams Underlay Stitcher Relationship Specialty Start Date End Date Lizandro Khan NP [address] [place] [address] PCP - General Family Medicine 07/23/25 Rachel Pagan MD [address] [place] [address] Consulting Physician Oncology 11/11/22 Pati Rucker APRN [address] [place] [phone] Nurse Practitioner Oncology 12/21/22 Sosa Gardner APRN [address] [place] [phone] Nurse Practitioner Oncology 06/24/23 Linda Elizabeth DO [address] [place] [address] Consulting Physician Oncology 03/01/25 Angie Murray, ROLDAN [address] [place] [address] Nurse Navigator Oncology 06/26/25 documented as of this encounter
--- OUTSIDE RECORDS SUMMARY | 2025-08-22 02:54 | XMS_ITS | Encounter Summary ---
Author Organization [facility] nter Address [address] [place] [address] Care Team Providers Care External Grinder Tool Name Role Phone Rachel Pagan MD Unavailable [phone] Yesy Acuna RN Unavailable [phone] Pati Rucker DRIVER LICENSE EXAMINER Unavailable [phone] Sosa Gardner DRIVER LICENSE EXAMINER Unavailable [phone] Italo Camejo APPLICATION ANALYST Primary Care Provider [phone] Linda Elizabeth DO Unavailable Lizandro Khan APPLICATION ANALYST Primary Care Provider [phone] Elsa Vazquez Unavailable Unavailable Angie Murray RN Unavailable Unavailab Lizandro Islas APPLICATION ANALYST Primary Care Provider [phone] Encounter Details Date Type Department Care Team (Late st Contact Info) Description 07/05/[address] [facility] ONCOLOGY PRACTICE [address], 10th [place] [address] Rachel Pagan MD [address] [place] [address] Non-small cell cancer of right lung Social History Tobacco Use Types Packs/Day Years Used Date Smoking Tobacco: Every Day Cigarettes 0.5 30 Passive Smoke Exposure: Current Smokeless Tobacco: Never Comments:Offered patient an appointment at the health department for smoking cessation classes. Patient declined. Alcohol Use Standard Drinks/Week Comments Never 0 (1 standard drink = 0.6 oz pur e alcohol) [facility] Utilities Answer Date Recorded In [...] week 11/11/2022 How often do you attend [facility] or shinto services? More than 4 times per year 11/11/2022 Do you belong to any clubs o r organizations such as spiritism groups, unions, fraternal or athletic groups, or [...] [facility] [address], 10th [place] [address] Rachel Pagan MD [address] [place] [address] 08/28/2025 1:00 PM EDT Office Visit [facility] ORTHOPEDIC PODIATRY PRACTICE [address], 6th [place] [address] Yazan Castro DPM [address] [place] [address] 08/29/2025 10:30 AM EDT Appointment [facility] MEDICAL ONCOLOGY [address], 11th [place] [address] 09/06/2025 1:45 PM EDT Appointment [facility] ULTRASOUND [address], 2nd [place] [address] 09/12/2025 9:30 AM EDT Appointment [facility] MRI BLDG D [address], [facility] [place] [address] 09/28/2025 9:30 AM EST Office Visit [facility] CARDIOLOGY PRACTICE [address], 1st Floor [place] [facility] [place] [address] Ky Jewell MD [address] [facility] [place] [address] 11/05/2025 2:45 PM EST Office Visit [facility] NEUROLOGY PRACTICE [address], 8th [place] [address] Ruddy Mayes MD [address] [facility] [place] [address] 12/31/2025 11:30 AM EST Office Visit [facility] NEPHROLOGY PRACTICE [address] [phone] 01/22/2026 9:00 AM EDT Office Visit [facility] CARDIOLOGY PRACTICE [address], 1st Floor [place] [facility] [place] [address] Allyn Toribio NP [address] [place] [address] documented as of this encounter Procedures Procedure Name Priority Date/Time Associated Diagnosis Comments CBC WITH AUTO DIFFERENTIAL Routine 07/05/2024 9:42 AM EDT Non-small cell cancer of right lung COMPREHENSIVE METABOLIC PANEL Routine 07/05/2024 9:42 AM EDT Non-small cell cancer of right lung documented in this encounter Results * (ABNORMAL) CBC auto differential (07/05/2024 9:42 AM EDT) Auto WBC 8.9 3.8 - 11.0 10*3/uL 07/05/2024 10:36 AM [facility] RBC 4.11 3.73 - 5.13 10*6/uL 07/05/2024 10:36 AM [facility] Hemoglobin 13.2 11.2 - 15.3 g/dL 07/05/2024 10:36 AM [facility] Hematocrit 38.7 32.6 - 44.6 % 07/05/2024 10:36 AM [facility] MCV 94.0 78.8 - 96.0 fL 07/05/2024 10:36 AM [facility] MCH 32.1 26.2 - 33.0 pg 07/05/2024 10:36 AM [facility] MCHC 34.2 32.7 - 35.1 g/dL 07/05/2024 10:36 AM [facility] RDW 15.2 12.1 - 16.1 % 07/05/2024 10:36 AM [facility] MPV 8.4 7.0 - 10.6 fL 07/05/2024 10:36 AM [facility] Neutrophils % 55 47 - 79 % 07/05/2024 10:36 AM [facility] Lymphocytes % 27 13 - 41 % 07/05/2024 10:36 AM [facility] Monocytes % 7 3 - 11 % 07/05/2024 10:36 AM [facility] Eosinophils % 9(H) 0 - 6 % 07/05/2024 10:36 AM [facility] Basophils % 2 0 - 2 % 07/05/2024 10:36 AM [facility] Neutrophils Absolute 4.90 1.90 - 7.50 10*3/uL 07/05/2024 10:36 AM [facility] Lymphocytes Absolute 2.40 0.80 - 3.20 10*3/uL 07/05/2024 10:36 AM [facility] Monocytes Absolute 0.60 0.10 - 0.90 10*3/uL 07/05/2024 10:36 AM [facility] Eosinophils Absolute 0.80(H) 0.00 - 0.40 10*3/uL 07/05/2024 10:36 AM [facility] Basophils Absolute 0.20 0.00 - 0.20 10*3/uL 07/05/2024 10:36 AM [facility] Platelets 211 138 - 402 10*3/uL 07/05/2024 10:36 AM [facility] Blood Venous blood specimen / Unknown Existing Catheter / Unknown 07/05/2024 9:42 AM EDT 07/05/2024 10:22 AM EDT us Rachel Soriano MD LAB BLOOD ORDERABLES Final Result Performing Organization Address City/State/[facility] Co de Phone Number [facility] [address] [place] [address], * (ABNORMAL) Comprehensive metabolic panel (07/05/2024 9:42 AM EDT) Sodium 144 133 - 144 mmol/L 07/05/2024 11:01 AM [facility] Potassium 4.0 3.6 - 5.2 mmol/L 07/05/2024 11:01 AM [facility] Chloride 116(H) 98 - 107 mmol/L 07/05/2024 11:01 AM [facility] CO2 20(L) 21 - 32 mmol/L 07/05/2024 11:01 AM [facility] Anion Gap 8 5 - 15 mmol/L 07/05/2024 11:01 AM [facility] BUN 11 7 - 18 mg/dL 07/05/2024 11:01 AM [facility] Creatinine 1.00 0.55 - 1.02 mg/dL 07/05/2024 11:01 AM [facility] BUN/Creatinine Ratio 11.00 10.00 - 20.00 ratio 07/05/2024 11:01 AM [facility] Glucose 157(H) 70 - 110 mg/dL 07/05/2024 11:01 AM [facility] Calcium 8.6 8.5 - 10.1 mg/dL 07/05/2024 11:01 AM [facility] AST 18 15 - 37 U/L 07/05/2024 11:01 AM [facility] ALT (SGPT) 25 13 - 56 U/L 07/05/2024 11:01 AM [facility] Alkaline Phosphatase 128(H) 45 - 117 U/L 07/05/2024 11:01 AM [facility] Total Protein 6.0(L) 6.4 - 8.4 g/dL 07/05/2024 11:01 AM [facility] Albumin 2.7(L) 3.4 - 5.0 g/dL 07/05/2024 11:01 AM [facility] Globulin, Total 3.3 2.4 - 4.8 g/dL 07/05/2024 11:01 AM [facility] A/G Ratio 0.8 0.6 - 1.6 07/05/2024 11:01 AM [facility] Total Bilirubin 0.5 0.0 - 1.0 mg/dL 07/05/2024 11:01 AM [facility] eGFR (CKD-EPI) 59.3(L) >60.0 - 200.0 mL/min/1.7 3m*2 07/05/2024 11:01 AM [facility] Blood Venous blood specimen / Unknown Existing Catheter / Unknown 07/05/2024 9:42 AM EDT 07/05/2024 10:25 AM EDT us Rachel Soriano MD LAB BLOOD ORDERABLES Final Result [facility] [address] [place] [address], documented in this encounter Visit Diagnoses Diagnosis [...] documented as of this encounter Care Teams External Grinder Tool Relationship Specialty Start Date End Date Italo Camejo NP [address] [facility], [address] [place] [address] PCP - General Family Medicine 09/24/23 03/19/25 Lizandro Khan NP [address] [place] [address] PCP - General Family Medicine 03/20/25 07/22/25 Lizandro Khan NP [address] [place] [address] PCP - General Family Medicine 07/23/25 Rachel Pagan MD [address] [place] [phone] Consulting Physician Oncology 11/11/22 Yesy Acuna, RN [address] [place] [address] Nurse Navigator 11/12/22 03/05/25 Pati Rucker APRN [address] [place] [address] Nurse Practitioner Oncology 12/21/22 Sosa Gardner APRN [address] [place] [address] Nurse Practitioner Oncology 06/24/23 Linda Elizabeth DO [address] [place] [address] Consulting Physician Oncology 03/01/25 Elsa Vazquez [address] [place], [place] [address] Nurse Navigator Oncology 06/05/25 07/19/25 Angie Murray, ROLDAN [address] [place], [place] [address] Nurse Navigator Oncology 06/26/25 documented as of this encounter
--- OUTSIDE RECORDS SUMMARY | 2025-08-22 02:54 | XMS_ITS | Encounter Summary ---
Author Organization [facility] nter Address [address] [place] [address] Care Team Providers Care Heart Specialist Name Role Phone Rachel Pagan MD Unavailable [phone] Yesy Acuna RN Unavailable [phone] Pati Rucker END FINDER FORMING DEPARTMENT Unavailable [phone] Sosa Gardner END FINDER FORMING DEPARTMENT Unavailable [phone] Italo Camejo RECOVERY ASSISTANT Primary Care Provider [phone] Linda Elizabeth DO Unavailable Lizandro Khan RECOVERY ASSISTANT Primary Care Provider [phone] Elsa Vazquez Unavailable Unavailable Angie Murray RN Unavailable Unavailab Lizandro Islas RECOVERY ASSISTANT Primary Care Provider [phone] Encounter Details Date Type Department Care Team (Late st Contact Info) Description 10/25/2024 Orders Only [facility] [address], 10th [place] [address] Rachel Pagan MD [address] [place] [address] Social History Tobacco Use Types Packs/Day Years Used Date Smoking Tobacco: Every Day Cigarettes 0.5 30 Passive Smoke Exposure: Current Smokeless Tobacco: Never Comments:Offered patient an appointment at the health department for smoking cessation classes. Patient declined. Alcohol Use Standard Drinks/Week Comments Never 0 (1 standard drink = 0.6 oz pur e alcohol) [facility] Utilities Answer Date Recorded In [...] often do you attend chur ch or christianity services? More than 4 times per year [...] in a mcc (including now)? No 11/11/2022 Comments No Sex [...] ONCOLOGY PRACTICE [address], 10th [place] [address] Rachel Pagan MD [address] [place] [address] 08/28/2025 1:00 PM EDT Office Visit [facility] ORTHOPEDIC PODIATRY PRACTICE [address], 6th [place] [address] Yazan Castro DPM [address] [place] [address] 08/29/2025 10:30 AM EDT Appointment [facility] MEDICAL ONCOLOGY [address], 11th [place] [address] 09/06/2025 1:45 PM EDT Appointment [facility] ULTRASOUND [address], 2nd [place] [address] 09/12/2025 9:30 AM EDT Appointment [facility] MRI BLDG D [address], [facility] [place] [address] 09/28/2025 9:30 AM EST Office Visit [facility] CARDIOLOGY PRACTICE [address], 1st [place] [address] Ky Jewell MD [facility] [address] [facility] [place] [address] 11/05/2025 2:45 PM EST Office Visit [facility] NEUROLOGY PRACTICE [address], 8th [place] [address] Ruddy Mayes MD [facility] [address] [facility] [place] [address] 12/31/2025 11:30 AM EST Office Visit [facility] NEPHROLOGY PRACTICE [address] [phone] 01/22/2026 9:00 AM EDT Office Visit [facility] CARDIOLOGY PRACTICE [address], 1st [place] [address] Allyn Toribio NP [address] [place], [place] [phone] documented as of this encounter Visit Diagnoses [...] documented as of this encounter Care Teams Heart Specialist Relationship Specialty Start Date End Date Italo Camejo NP [address] [place] [address], [address] [place] [address] PCP - General Family Medicine 09/24/23 03/19/25 Lizandro Khan NP [address] [place] [address] PCP - General Family Medicine 03/20/25 07/22/25 Lizandro Khan NP [address] [place] [address] PCP - General Family Medicine 07/23/25 Rachel Pagan MD [facility] [place] [address] Consulting Physician Oncology 11/11/22 Yesy Acuna, RN [address] [place] [address] Nurse Navigator 11/12/22 03/05/25 Pati Rucker APRN [facility] [address] [facility] [place] [address] Nurse Practitioner Oncology 12/21/22 Sosa Gardner APRN [address] [place] [address] Nurse Practitioner Oncology 06/24/23 Linda Elizabeth DO [address] [place] [address] Consulting Physician Oncology 03/01/25 Elsa Vazquez [address] [place] [address] Nurse Navigator Oncology 06/05/25 07/19/25 Angie Murray RN [address] [place] [address] Nurse Navigator Oncology 06/26/25 documented as of this encounter
--- OUTSIDE RECORDS SUMMARY | 2025-08-22 02:54 | XMS_ITS | Encounter Summary ---
Author Organization [facility] nter Address [address] [place] [address] Care Team Providers Care Peanut Grader Name Role Phone Rachel Pagan MD Unavailable [phone] Pati Rucker BRINE TANK SEPARATOR OPERATOR Unavailable [phone] Sosa Gardner BRINE TANK SEPARATOR OPERATOR Unavailable [phone] Linda Elizabeth DO Unavailable Angie Murray RN Unavailable Unavailab Lizandro Islas NP Primary Care Provider [phone] Reason for Visit * Reason Onset Date Comments Med Refill 08/16/2025 Encounter Details Date Type Department Care Team (Late st Contact Info) Description 08/16/2025 Telephone [facility] CASHIER AND SALESPERSON/REHAB PRACTICE [address], 8th [place] [address] Bri Hogue [address] [place] [address] Med Refill Social History Tobacco Use Types Packs/Day Years [...] often do you attend chur ch or latter-day services? More than 4 times per year [...] the past 12 months has th e [employer], gas, oil, or water company threatened to [...] encounter Miscellaneous Notes * Telephone Encounter - Raquel Serna RN - 08/20/2025 8:40 AM EDT Patient's daughter, on HIPAA, called requesting update. States they will be going back to [facility]. #- . documented in this encounter Plan of Treatment Upcoming Encounters Date Type Department Care Team (Late st Contact Info) Description 08/27/2025 8:45 AM EDT Office Visit [facility] ONCOLOGY PRACTICE [address], 10th [place] [address] Rachel Pagan MD [address] [facility] [place] [address] 08/28/2025 1:00 PM EDT Office Visit [facility] ORTHOPEDIC PODIATRY PRACTICE [address], 6th [place] [address] Yazan Castro DPM [address] [facility] [place] [address] 08/29/2025 10:30 AM EDT Appointment [facility] MEDICAL ONCOLOGY [address], 11th Floor [place] [phone] 09/06/2025 1:45 PM EDT Appointment [facility] ULTRASOUND [address], 2nd Floor [place] [address] 09/12/2025 9:30 AM EDT Appointment [facility] MRI BLDG D [address], [facility] [place] [address] 09/28/2025 9:30 AM EST Office Visit [facility] CARDIOLOGY PRACTICE [address], 1st Floor [facility] [place] [address] Ky Jewell MD [address] [facility] [place] [phone] 11/05/2025 2:45 PM EST Office Visit [facility] NEUROLOGY PRACTICE [address], 8th [place] [address] Ruddy Mayes MD [facility] [address] [facility] [place] [address] 12/31/2025 11:30 AM EST Office Visit [facility] NEPHROLOGY PRACTICE [address] [phone] 01/22/2026 9:00 AM EDT Office Visit [facility] CARDIOLOGY PRACTICE [address], 1st Floor [facility] [place] [address] Allyn Toribio NP [address] [place] [phone] documented as of this encounter Goals Goal [...] documented as of this encounter Care Teams Peanut Grader Relationship Specialty Start Date End Date Lizandro Khan NP [address] [place] [address] PCP - General Family Medicine 07/23/25 Rachel Pagan MD [address] [place] [place] [address] Consulting Physician Oncology 11/11/22 Pati Rucker APRN [address] [place] [address] Nurse Practitioner Oncology 12/21/22 Sosa Gardner APRN [address] [place] [place] [address] Nurse Practitioner Oncology 06/24/23 Linda Elizabeth DO [address] Bldg A [facility] [place] [phone] Consulting Physician Oncology 03/01/25 Angie Murray, ROLDAN [address] [place] [address] Nurse Navigator Oncology 06/26/25 documented as of this encounter
--- OUTSIDE RECORDS SUMMARY | 2025-08-22 02:54 | XMS_ITS | Encounter Summary ---
Author Organization [facility] nter Address [address] [facility] [place] [address] Care Team Providers Care Roll Reclaimer Name Role Phone Lizandro Khan BEHAVIORAL HEALTH ASSISTANT Primary Care Provider [phone] Rachel Pagan MD Unavailable [phone] Yesy Acuna RN Unavailable [phone] [address] BEHAVIORAL HEALTH ASSISTANT Primary Care Provider [phone] Pati Rucker CHIEF SUSTAINABILITY OFFICER Unavailable [phone] Sosa Gardner CHIEF SUSTAINABILITY OFFICER Unavailable Italo Camejo BEHAVIORAL HEALTH ASSISTANT Primary Care Provider [phone] Linda Elizabeth DO Unavailable Lizandro Khan BEHAVIORAL HEALTH ASSISTANT Primary Care Provider [phone] Elsa Vazquez Unavailable Unavailable Angie Murray RN Unavailable Unavailab Lizandro Islas BEHAVIORAL HEALTH ASSISTANT Primary Care Provider [phone] Reason for Referral * Imaging (Routine) - Closed Specialty Diagnoses / Procedures Referred By Contac t Referred To Contact Radiology Diagnoses Non-small cell lung cancer, unspecified laterality Procedures MR brain w and wo contrast Rachel Pagan MD [address] [place] [place] [address] Phone: tel: fax: [facility] MRI BLDG D [address], Bld[address] [place] [address] Phone: tel: Referral ID Status Reason Start Date Expiration Date Visits Re quested Visits Authorized [id number] Closed 11/11/2022 02/09/2023 1 1 Encounter Details Date Type Department Care Team (Late st Contact Info) Description 11/17/2022 Orders Only [facility] ONCOLOGY PRACTICE [address], 10th Floor Clinic [place] [address] Rachel Pagan MD [address] [facility] [place] [address] Non-small cell lung cancer, unspecified laterality (Primary Dx) Social History Tobacco Use Types [...] often do you attend [facility] or shinto services? More than 4 times per year 11/11/2022 Do you belong to any clubs o r organizations such as confucianism groups, unions, fraternal or athletic groups, or [...] in a usp (including now)? No 11/11/2022 Comments No Sex [...] suspected to have Coronavirus/COVID-19? No / Unsure 11/19/2022 8:33 AM EST documented as of this encounter [...] PRACTICE [address], 10th [place] [address] Rachel Pagan MD [address] [place] [address] 08/28/2025 1:00 PM EDT Office Visit [facility] ORTHOPEDIC PODIATRY PRACTICE [address], 6th [place] [address] Yazan Castro DPM [address] [place] [address] 08/29/2025 10:30 AM EDT Appointment [facility] MEDICAL ONCOLOGY [address], 11th [place] [address] 09/06/2025 1:45 PM EDT Appointment [facility] ULTRASOUND [address], 2nd [place] [address] 09/12/2025 9:30 AM EDT Appointment [facility] MRI BLDG D [address], [place] [address] 09/28/2025 9:30 AM EST Office Visit [facility] CARDIOLOGY PRACTICE [address], 1st [place] [address] Ky Jewell MD [address] [place] [address] 11/05/2025 2:45 PM EST Office Visit [facility] NEUROLOGY PRACTICE [address], 8th [place] [address] Ruddy Mayes MD [address] [place] [address] 12/31/2025 11:30 AM EST Office Visit [facility] NEPHROLOGY PRACTICE [address] [phone] 01/22/2026 9:00 AM EDT Office Visit [facility] CARDIOLOGY PRACTICE [address], 1st [place] [address] Allyn Toribio, GRAHAM [address] [place], [place] [phone] documented as of this encounter Results * MR brain w and wo contrast (11/25/2022 1:00 PM EST) Anatomical Region Laterality Modality Brain Magnetic Resonan ce 11/25/2022 1:33 PM EST Impressions 12/01/2022 5:33 PM EST Multiple enhancing intracranial lesions as above concerning for intracranial metastasis. No acute ischemia or intracranial hemorrhage. Study mildly degraded secondary to patient motion artifact particularly about FLAIR sequences. Age-appropriate cerebral atrophy with a few scattered periventricular and deep white matter T2/FLAIR hyperintensities, nonspecific, potentially sequela of chronic microvascular ischemic disease. Minimal paranasal sinus mucosal thickening. Trace right mastoid effusion. Report Sign Date: 12/01/2022 5:33 PM, Electronically Signed By: Matheus Lovett MD Narrative 12/01/2022 5:33 PM EST PROCEDURE: MR BRAIN W AND WO CONTRAST: 11/25/2022 CLINICAL INFORMATION: Brain/BLUEPRINT BLOCKER neoplasm, staging NSCLC with abnormal brain image COMPARISON: 11/17/2022 A 4 mm enhancing lesion posterior superior left frontal lobe along the vertex, image 125 series 14,000, concerning for intracranial metastasis. A 3 mm enhancing lesion posterior left frontal lobe image 109 and series 14,000 concerning for intracranial metastasis. Subtle 3 mm focus of enhancement along hernandez-white matter junction left temporal lobe, image 54 series 14,000, additional intracranial metastatic lesion not excluded. Subtle 4 mm focus of enhancement left cerebellar hemisphere, image 26, series 14,000, suspicious for intracranial metastasis. A few additional punctate foci of questionable enhancement left frontal lobe images 90 and 91, series 14,001, given appearance, differential consideration would include artifact although additional intracranial metastatic lesion not excluded. Additional punctate focus of enhancement left temporal lobe, image 78 series 14,000, again differential considerations would include artifact although additional enhancing intracranial metastatic lesion not excluded. Consider attention on short-term follow-up. No restricted diffusion to suggest acute ischemia. No acute intracranial hemorrhage. Study mildly degraded secondary to patient motion artifact particularly about FLAIR sequences. Age-appropriate cerebral atrophy with a few scattered periventricular and deep white matter T2/FLAIR hyperintensities, nonspecific, potentially sequela of chronic microvascular ischemic disease. Vascular flow voids are relatively well-maintained. No acute calvarial abnormality. Minimal paranasal sinus mucosal thickening. Trace right mastoid effusion. Procedure Note Mark Lovett MD - 12/01/2022 PROCEDURE: MR BRAIN W AND WO CONTRAST: 11/25/2022 CLINICAL INFORMATION: Brain/BLUEPRINT BLOCKER neoplasm, staging NSCLC with abnormal brain image COMPARISON: 11/17/2022 A 4 mm enhancing lesion posterior superior left frontal lobe along thevertex, image 125 series 14,000, concerning for intracranial metastasis. A3 mm enhancing lesion posterior left frontal lobe image 109 and hzuhwg26,000 concerning for intracranial metastasis. Subtle 3 mm focus of enhancement along hernandez-white matter junction lefttemporal lobe, image 54 series 14,000, additional intracranial metastaticlesion not excluded. Subtle 4 mm focus of enhancement left cerebellarhemisphere, image 26, series 14,000, suspicious for intracranialmetastasis. A few additional punctate foci of questionable enhancementleft frontal lobe images 90 and 91, series 14,001, given appearance,differential consideration would include artifact although additionalintracranial metastatic lesion not excluded. Additional punctate focus ofenhancement left temporal lobe, image 78 series 14,000, again differentialconsiderations would include artifact although additional enhancingintracranial metastatic lesion not excluded. Consider attention onshort-term follow-up. No restricted diffusion to suggest acute ischemia.No acute intracranial hemorrhage. Study mildly degraded secondary to patient motion artifact particularlyabout FLAIR sequences. Age-appropriate cerebral atrophy with a fewscattered periventricular and deep white matter T2/FLAIR hyperintensities,nonspecific, potentially sequela of chronic microvascular ischemicdisease. Vascular flow voids are relatively well-maintained. No acute calvarial abnormality. Minimal paranasal sinus mucosalthickening. Trace right mastoid effusion. IMPRESSION: Multiple enhancing intracranial lesions as above concerning forintracranial metastasis. No acute ischemia or intracranial hemorrhage. Study mildly degraded secondary to patient motion artifact particularlyabout FLAIR sequences. Age-appropriate cerebral atrophy with a fewscattered periventricular and deep white matter T2/FLAIR hyperintensities,nonspecific, potentially sequela of chronic microvascular ischemicdisease. Minimal paranasal sinus mucosal thickening. Trace right mastoid effusion. Report Sign Date: 12/01/2022 5:33 PM, Electronically Signed By: Matheus Cain Rachel Soriano MD IMG MRI PROCEDURES Final Re sult documented in this encounter Visit Diagnoses Diagnosis Non-small cell lung cancer, unspecified laterality- Primary Non-small cell lung cancer, unspecified laterality documented [...] documented as of this encounter Care Teams Roll Reclaimer Relationship Specialty Start Date End Date Lizandro Khan NP [address] [place] [address] PCP - General 12/09/22 Viridiana Plaza NP [address] [place] [address] PCP - General Family Medicine 12/10/22 09/23/23 Italo Camejo NP [address] [facility], [address] [place] [address] PCP - General Family Medicine 09/24/23 03/19/25 Lizandro Khan NP [address] [place] [address] PCP - General Family Medicine 03/20/25 07/22/25 Lizandro Khan NP [address] [place] [address] PCP - General Family Medicine 07/23/25 Rachel Pagan MD [address] [place] [address] Consulting Physician Oncology 11/11/22 Yesy Acuna, ROLDAN [address] [place] [address] Nurse Navigator 11/12/22 03/05/25 Pati Rucker APRN [address] [place] [address] Nurse Practitioner Oncology 12/21/22 Sosa Gardner APRN [address] [place] [address] Nurse Practitioner Oncology 06/24/23 Linda Elizabeth DO [address] [place], [place] [phone] Consulting Physician Oncology 03/01/25 Elsa Vazquez [address] [place] [address] Nurse Navigator Oncology 06/05/25 07/19/25 Angie Murray RN [address] [place] [address] Nurse Navigator Oncology 06/26/25 documented as of this encounter
--- OUTSIDE RECORDS SUMMARY | 2025-08-22 02:54 | XMS_ITS | Encounter Summary ---
Author Organization [facility] nter Address [address] [place] [address] Care Team Providers Care Air Traffic Control Manager Name Role Phone Rachel Pagan MD Unavailable [phone] Yesy Acuna RN Unavailable [phone] [address] HADOOP ANALYST Primary Care Provider [phone] Pati Rucker POLYMERIZATION OVEN OPERATOR Unavailable [phone] Sosa Gardner POLYMERIZATION OVEN OPERATOR Unavailable [phone] Italo Camejo HADOOP ANALYST Primary Care Provider [phone] Linda Elizabeth DO Unavailable Lizandro Khan HADOOP ANALYST Primary Care Provider [phone] Elsa Vazquez Unavailable Unavailable Angie Murray RN Unavailable Unavailab Lizandro Islas HADOOP ANALYST Primary Care Provider [phone] Encounter Details Date Type Department Care Team (Late st Contact Info) Description 12/21/2022 Orders Only [facility] [address], 10th [place] [address] Pati Rucker, POLYMERIZATION OVEN OPERATOR [address] [place] [address] Non-small cell cancer of right lung (Primary Dx) Social History Tobacco Use Types [...] week 11/11/2022 How often do you attend [facility] or scientologist services? More than 4 times [...] in a snf (including now)? No 11/11/2022 Comments No Sex [...] suspected to have Coronavirus/COVID-19? No / Unsure 12/24/2022 9:40 AM EST documented as of this encounter [...] 08/27/2025 8:45 AM EDT Office Visit [facility] ONCOLOGY PRACTICE [address], 10th [place] [address] Rachel Pagan MD [address] [place] [address] 08/28/2025 1:00 PM EDT Office Visit [facility] ORTHOPEDIC PODIATRY PRACTICE [address], 6th [place] [address] Yazan Castro DPM [address] [place] [address] 08/29/2025 10:30 AM EDT Appointment [facility] MEDICAL ONCOLOGY [address], 11th [place] [address] 09/06/2025 1:45 PM EDT Appointment [facility] ULTRASOUND [address], 2nd [place] [address] 09/12/2025 9:30 AM EDT Appointment [facility] MRI BLDG D [address], [facility] [place] [facility] [place] [address] 09/28/2025 9:30 AM EST Office Visit [facility] CARDIOLOGY PRACTICE [address], 1st Floor [facility] [place] [address] Ky Jewell MD [address] [facility] [place] [address] 11/05/2025 2:45 PM EST Office Visit [facility] NEUROLOGY PRACTICE [address], 8th [place] [address] Ruddy Mayes MD [facility] [address] [facility] [place] [address] 12/31/2025 11:30 AM EST Office Visit [facility] NEPHROLOGY PRACTICE [address] [place] [address] 01/22/2026 9:00 AM EDT Office Visit [facility] CARDIOLOGY PRACTICE [address], [address]st [place] [address] Allyn Toribio NP [address] [place] [phone] documented as of this encounter Visit Diagnoses Diagnosis Non-small cell cancer of right lung- Primary documented in this encounter Additional Health [...] documented as of this encounter Care Teams Air Traffic Control Manager Relationship Specialty Start Date End Date Viridiana Plaza NP [address] [place] [phone] PCP - General Family Medicine 12/10/22 09/23/23 Italo Camejo NP [address] [place] [address], [address] [place] [address] PCP - General Family Medicine 09/24/23 03/19/25 Lizandro Khan NP [address] [place] [address] PCP - General Family Medicine 03/20/25 07/22/25 Lizandro Khan NP [address] [place] [address] PCP - General Family Medicine 07/23/25 Rachel Pagan MD [address] [place] [phone] Consulting Physician Oncology 11/11/22 Yesy Acuna RN [address] [place] [address] Nurse Navigator 11/12/22 03/05/25 Pati Rucker APRN [address] [place] [address] Nurse Practitioner Oncology 12/21/22 Sosa Gardner APRN [address] [place] [address] Nurse Practitioner Oncology 06/24/23 Linda Elizabeth DO [address] [place] [address] Consulting Physician Oncology 03/01/25 Elsa Vazquez [address] [place], [place] [address] Nurse Navigator Oncology 06/05/25 07/19/25 Angie Murray RN [address] [place] [address] Nurse Navigator Oncology 06/26/25 documented as of this encounter
--- OUTSIDE RECORDS SUMMARY | 2025-08-22 02:54 | XMS_ITS ---
Author Organization [facility] nter Address [address] [place] [address] Care Team Providers Care Stewardess Supervisor Name Role Phone Rachel Pagan MD Unavailable Pati Rucker TRAFFIC SIGNAL TECHNICIAN Unavailable [phone] Sosa Gardner TRAFFIC SIGNAL TECHNICIAN Unavailable [phone] Linda Elizabeth DO Unavailable Angie Murray RN Unavailable Unavailab Lizandro Islas NP Primary Care Provider [phone] Active Problems Problem Noted Date Diagnosed Date Stage IV squamous cell carcinoma of lung 025 Cancer Staging:Clinical:Stage IV(cTX, cNX, cM1) - Signed [...] in size. Patient does not have any DISPATCHER SERVICE CHIEF symptoms. She was seen by radiation oncology. [...] -Will continue to coordinate with neurosurgery and [facility] regarding brain imaging/disease. -She will continue to [...] in size. Patient does not have any DISPATCHER SERVICE CHIEF symptoms. She was seen by radiation oncology. [...] an eye -Will coordinate with neurosurgery and [facility] regarding brain imaging - Labs before each [...] in size. Patient does not have any DISPATCHER SERVICE CHIEF symptoms. She was seen by radiation oncology. [...] patient had a brain radiation here at [facility] 03/2025 since the gamma knife she received 12/2024 at the . I will coordinate with [facility] radiation oncology about the next brain MRI. [...] in size. Patient does not have any DISPATCHER SERVICE CHIEF symptoms. She was seen by radiation oncology. [...] in size. Patient does not have any DISPATCHER SERVICE CHIEF symptoms. She was seen by radiation oncology. [...] evidence of acute ischemic change. Spoke to television inspector Oncologist, Dr. Elizabeth. She recommends to request whole brain radiation. Rx dex 4mg BID and follow up with her tomorrow. Office visit 04/06/25 Jose has had a hard month. Found on MRI to have progression of disease when she started having face and arm numbness and then spasticity of arm as well. Completed 5 brain radiation treatments and followed with Dr. Cabrear on 03/29. Per his note, No evidence [...] in size. Patient does not have any DISPATCHER SERVICE CHIEF symptoms. She was seen by radiation oncology. [...] evidence of acute ischemic change. Spoke to television inspector Oncologist, Dr. Elizabeth. She recommends to request [...] in size. Patient does not have any DISPATCHER SERVICE CHIEF symptoms. She was seen by radiation oncology. [...] in size. Patient does not have any DISPATCHER SERVICE CHIEF symptoms. She was seen by radiation oncology. [...] -Will see the patient 01/05/2025 here at [facility] to discuss systemic treatment options as detailed above. -Will coordinate her care with [facility] neurosurgery team as far as her brain metastasis -Keep reimaging brain MRI and follow-up appointment with [facility] neurosurgery team as scheduled -RTC 01/05/2025 Assessment [...] in size. Patient does not have any DISPATCHER SERVICE CHIEF symptoms. She was seen by radiation oncology. [...] residual disease. -Will coordinate her care with [facility] neurosurgery team as far as her brain metastasis -Keep any follow-up appointment with [facility] neurosurgery team -RTC weeks or sooner if needed Addendum 12/07/2024 at 3:30 PM: I spoke to patient's daughter today. They are both at the neurosurgery center and is currently planned for gamma knife surgery 12/26/2024. Also plan to have repeat MRI done March 2025 over there at the . Will see the patient 12/28/2024 here at [facility] to discuss systemic treatment options as detailed [...] in size. Patient does not have any DISPATCHER SERVICE CHIEF symptoms. She was seen by radiation oncology. [...] DOAC. He also suggested they should contact neurosurgery to get opinion about resection and consult [facility]. He has also discussed with Dr. Delgadillo [...] in size. Patient does not have any DISPATCHER SERVICE CHIEF symptoms. She was seen by radiation oncology. [...] in size. Patient does not have any DISPATCHER SERVICE CHIEF symptoms. She was seen by radiation oncology. [...] in size. Patient does not have any DISPATCHER SERVICE CHIEF symptoms. She was seen by radiation oncology. [...] in size. Patient does not have any DISPATCHER SERVICE CHIEF symptoms. She was seen by radiation oncology. [...] in size. Patient does not have any DISPATCHER SERVICE CHIEF symptoms. She was seen by radiation oncology. [...] in size. Patient does not have any DISPATCHER SERVICE CHIEF symptoms. She was seen by radiation oncology. [...] in size. Patient does not have any DISPATCHER SERVICE CHIEF symptoms. She was seen by radiation oncology. [...] in size. Patient does not have any DISPATCHER SERVICE CHIEF symptoms. She was seen by radiation oncology. [...] in size. Patient does not have any DISPATCHER SERVICE CHIEF symptoms. She was seen by radiation oncology. [...] in size. Patient does not have any DISPATCHER SERVICE CHIEF symptoms. She was seen by radiation oncology. [...] in size. Patient does not have any DISPATCHER SERVICE CHIEF symptoms. She was seen by radiation oncology. [...] in size. Patient does not have any DISPATCHER SERVICE CHIEF symptoms. She was seen by radiation oncology. [...] in size. Patient does not have any DISPATCHER SERVICE CHIEF symptoms. She was seen by radiation oncology. [...] in size. Patient does not have any DISPATCHER SERVICE CHIEF symptoms. She was seen by radiation oncology. [...] in size. Patient does not have any DISPATCHER SERVICE CHIEF symptoms. She was seen by radiation oncology. [...] in size. Patient does not have any DISPATCHER SERVICE CHIEF symptoms. She was seen by radiation oncology. [...] in size. Patient does not have any DISPATCHER SERVICE CHIEF symptoms. She was seen by radiation oncology. [...] in size. Patient does not have any DISPATCHER SERVICE CHIEF symptoms. She was seen by radiation oncology. [...] in size. Patient does not have any DISPATCHER SERVICE CHIEF symptoms. She was seen by radiation oncology. [...] in size. Patient does not have any DISPATCHER SERVICE CHIEF symptoms. She was seen by radiation oncology. [...] in size. Patient does not have any DISPATCHER SERVICE CHIEF symptoms. She was seen by radiation oncology. [...] in size. Patient does not have any DISPATCHER SERVICE CHIEF symptoms. She was seen by radiation oncology. [...] in size. Patient does not have any DISPATCHER SERVICE CHIEF symptoms. She was seen by radiation oncology. [...] in size. Patient does not have any DISPATCHER SERVICE CHIEF symptoms. She was seen by radiation oncology. [...] in size. Patient does not have any DISPATCHER SERVICE CHIEF symptoms. She was seen by radiation oncology. [...] in size. Patient does not have any DISPATCHER SERVICE CHIEF symptoms. She was seen by radiation oncology. [...] in size. Patient does not have any DISPATCHER SERVICE CHIEF symptoms. She was seen by radiation oncology. [...] in size. Patient does not have any DISPATCHER SERVICE CHIEF symptoms. She was seen by radiation oncology. [...] in size. Patient does not have any DISPATCHER SERVICE CHIEF symptoms. She was seen by radiation oncology. [...] -Elevate legs, compression stockings for leg swelling Current Treatment and Therapy Plans FLUSH FOR MEDIPORT* Plan Start Date:12/10/2022 Plan Provider:Rachel Soriano MD Linked Problems Non-small cell cancer of rig ht lung Treatment Medications No medications scheduled. HYDRATION 0.9% SODIUM CHLORIDE* Plan Start Date:05/25/2023 Plan Provider:Rachel Soriano MD Linked Problems Non-small cell cancer of rig ht lung Treatment Medications No medications scheduled. PEMBROLIZUMAB + PEMETREXED / CARBOPLATIN, 21 DAY CYCLES - NON-SMALL CELL LUNG* Plan Start Date:02/24/2025 Plan Provider:Rachel Soriano MD Linked Problems Non-small cell lung cancer, unspecified laterality Treatment Medications Current Day (Day 1 , Cycle 8 - Planned for 08/29/2025) Next Day (Day 1, Cycle 9 - Planned for 09/19/2025) CARBOplatin (Paraplatin) otoniel mo IVPB (by AUC)fosaprepitant (Emend) IVPBmethylPREDNISolone sodium succinate (PF) (SOLU-Medrol)palonosetron (Aloxi)pegfilgrastim (Neulasta)pegfilgrastim-cbqv (Udenyca)pembrolizumab (Keytruda) chemo IVPBPEMEtrexed (Alimta) chemo IVPB methylPREDNISolone sodium succinate (PF) (SOLU-Medrol) injection 125 mgpembrolizumab (Keytruda) 200 mg in sodium chloride 0.9 % 100 mL chemo IVPB methylPREDNISolone sodium succinate (PF) (SOLU-Medrol) injection 125 mgpembrolizumab (Keytruda) 200 mg in sodium chloride 0.9 % 100 mL chemo IVPB Past Treatment and Therapy Plans Infusion Treatment Plan Name Start Date Discontinue Date Treatment Medications Discontinue Reason Plan Provider HYDRATION 0.9% SODIUM CHLORIDE 02/01/2023 02/22/2023 No medications scheduled. Therapy Complete Rachel Soriano MD HYDRATION 0.9% SODIUM CHLORIDE 12/24/2022 01/05/2023 No medications scheduled. Therapy Complete Pati Rucker APRN HYDRATION 0.9% SODIUM CHLORIDE 12/18/2022 12/21/2022 No medications scheduled. Therapy Complete Rachel Soriano MD BANANA BAG (SODIUM CHLORIDE 0.9% WITH MVI, THIAMINE, FOLIC ACID, AND MAGNESIUM) AND HYDRATION FLUIDS - OVER 4 HOURS 12/18/2022 12/18/2022 No medications scheduled. Change in Level of Care Rachel Soriano MD CYANOCOBALAMIN 1000 MCG/ML WEEKLY X 4 WEEKS 11/25/2022 12/09/2022 No medications scheduled. Change in Level of Care Rachel Soriano MD Infusion Treatment 2 Plan Name Start Date Discontinue Date Treatment Medications Discontinue Reason Plan Provider HYDRATION 0.9% SODIUM CHLORIDE 02/22/2023 04/16/2023 No medications scheduled. Therapy Complete Rachel Soriano MD HYDRATION 0.9% SODIUM CHLORIDE 01/05/2023 02/01/2023 No medications scheduled. Therapy Complete Pati Rucker APRN HYDRATION 0.9% SODIUM CHLORIDE 12/21/2022 12/21/2022 No medications scheduled. Therapy Complete Pati Rucker APRN Infusion Treatment 3 Plan Name Start Date Discontinue Date Treatment Medications Discontinue Reason Plan Provider HYDRATION 0.9% SODIUM CHLORIDE 04/16/2023 04/16/2023 No medications scheduled. Therapy Complete Pati Rucker APRN Oncology Treatment Plan Name Start Date Discontinue Date Treatment Medications Discontinue Reason Plan Provider Cycles PACLitaxel / CARBOplatin with Concurrent Radiation: Induction, Weekly - Non-Small Cell Lung 5 02/13/2025 CARBOplatin (Paraplatin) chemo IVPB (by AUC)dexAMETHasone (Decadron) IVPB in NSPACLitaxel (Taxol) chemo IVPB Toxicity/Comp lication Rachel Soriano MD 1 of 1 cycle started PEMBROLIZUMAB + PEMETREXED / CARBOPLATIN, 21 DAY CYCLES - NON-SMALL CELL LUNG 12/02/19 23 12/09/2022 CARBOplatin (Paraplatin) chemo IVPB (by AUC)fosaprepitant (Emend) IVPBpalonosetron (Aloxi)pembrolizum ab (Keytruda) chemo IVPBPEMEtrexed (Alimta) chemo IVPB Change in Level of Care Rachel Soriano MD Treatment not started Lifetime Dose Tracking * Chemical Lifetime Dose Automatic Entry Manual Entr y Fluoro Time 232.675 minutes 1.675 minutes 231 minutes Air Kerma 22 mGy 0 mGy 22 mGy CTDIvol 289.88 mGy 289.88 mGy 0 mGy Resolved Problems Problem Noted Date Diagnosed Date Resolved Date Combined systolic and diastolic heart failure 06/28/2007/30/2025 Stroke, acute, embolic 06/18/202506/26 Myoclonus 06/15/2025 06/26/2025 [...] in size. Patient does not have any DISPATCHER SERVICE CHIEF symptoms. She was seen by radiation oncology. [...] in size. Patient does not have any DISPATCHER SERVICE CHIEF symptoms. She was seen by radiation oncology. [...] in size. Patient does not have any DISPATCHER SERVICE CHIEF symptoms. She was seen by radiation oncology. [...] in size. Patient does not have any DISPATCHER SERVICE CHIEF symptoms. She was seen by radiation oncology. [...] in size. Patient does not have any DISPATCHER SERVICE CHIEF symptoms. She was seen by radiation oncology. [...] in size. Patient does not have any DISPATCHER SERVICE CHIEF symptoms. She was seen by radiation oncology. [...] in size. Patient does not have any DISPATCHER SERVICE CHIEF symptoms. She was seen by radiation oncology. [...] in size. Patient does not have any DISPATCHER SERVICE CHIEF symptoms. She was seen by radiation oncology. [...] in size. Patient does not have any DISPATCHER SERVICE CHIEF symptoms. She was seen by radiation oncology. [...] for leg swelling Atrial fibrillation 11/03/2022 06/26/20 Overview (06/15/2025): Rate controlled C2V >2 Not [...] 10/26/2022 11/11/2022 Coronary artery disease invo lving crow coronary artery of crow heart without angina pectoris 04/03/2022 04/25/2025 Overview (12/20/2024): 2015 Cath Left main 30% with FFR 1.93, [...]
--- OUTSIDE RECORDS SUMMARY | 2025-08-22 02:55 | XMS_ITS | Encounter Summary ---
Author Organization [facility] Address [address] [place] [address] Care Team Providers Care Flash Ranging Crewmember Name Role Phone Italo Camjeo VICKY Primary Care Provider [phone] Encounter Details Date Type Department Care Team (Late st Contact Info) Description 06/12/2025 Orders Only External Location [address] [place] [address] Provider, External Social History Tobacco Use Types Packs/Day Years [...] Name Priority Date/Time Associated Diagnosis Comments CT NEURO OUTSIDE IMAGES 06/12/2025 3:08 AM EDT documented in this encounter Results * CT NEURO OUTSIDE IMAGES (06/12/2025 3:08 AM EDT) Anatomical Region Laterality Modality Computed Tomogra phy 06/12/2025 3:08 AM EDT us External Provider IMG CT PROCEDURES Final Result documented in this encounter Visit Diagnoses Not on filedocumented in this encounter Additional Health Concerns Assessment Noted Time A fall risk assessment has been complete d for the patient 03/29/2025 12:40 PM EDT A Body Mass Index follow-up plan has been documented for the patient 03/29/2025 1:49 PM EDT documented as of this encounter Care Teams Flash Ranging Crewmember Relationship Specialty Start Date End Date Italo Camejo APRN [address] [place] [address] PCP - General 11/18/23 documented as of this encounter
--- OUTSIDE RECORDS SUMMARY | 2025-08-22 02:55 | XMS_ITS | Encounter Summary ---
Author Organization [facility] nter Address [address] [place] [address] Care Team Providers Care Shower Maid Name Role Phone Rachel Pagan MD Unavailable [phone] Yesy Acuna RN Unavailable [phone] READERS' ADVISORY SERVICE LIBRARIAN Primary Care Provider [phone] Pati Rucker ORACLE FINANCIALS DEVELOPER Unavailable [phone] Sosa Gardner ORACLE FINANCIALS DEVELOPER Unavailable [phone] Italo Camejo READERS' ADVISORY SERVICE LIBRARIAN Primary Care Provider [phone] Linda Elizabeth DO Unavailable Lizandro Khan READERS' ADVISORY SERVICE LIBRARIAN Primary Care Provider [phone] Elsa Vazquez Unavailable Unavailable Angie Murray RN Unavailable Unavailab Lizandro Islas READERS' ADVISORY SERVICE LIBRARIAN Primary Care Provider [phone] Encounter Details Date Type Department Care Team (Late st Contact Info) Description 12/28/2022 Orders Only [facility] [address] [place] [address] Monserrat Alvarado, RN [address] [place] [address] YUMIKO (acute kidney injury) Social History Tobacco Use Types Packs/Day Years [...] week 11/11/2022 How often do you attend [facility] or yarsani services? More than 4 times per year 11/11/2022 Do you belong to any clubs o r organizations such as caodaism groups, unions, fraternal or athletic groups, or [...] suspected to have Coronavirus/COVID-19? No / Unsure 12/29/2022 9:28 AM EST documented as of this encounter [...] ONCOLOGY PRACTICE [address] [place] [address] Rachel Pagan MD [address] [place] [address] 08/28/2025 1:00 PM EDT Office Visit [facility]THOPEDIC [facility]ODIATRY PRACT[facility] [address] [place] [address] Yazan Castro DPM [address] [place] [address] 08/29/2025 10:30 AM EDT Appointment [facility] MEDICAL ONCOLOGY [address] [place] [address] 09/06/2025 1:45 PM EDT Appointment [facility] ULTRASOUND [address] [place] [address] 09/12/2025 9:30 AM EDT Appointment [facility] MRI BLDG D [address], [place] [address] 09/28/2025 9:30 AM EST Office Visit [facility] CARDIOLOGY PRACTICE [address] [place] [id number] Ky Jewell MD [address] [facility] [place] [address] 11/05/2025 2:45 PM EST Office Visit [facility] NEUROLOGY PRACTICE [address] [place] [address] Ruddy Mayes MD [facility] [address] [facility] [place] [address] 12/31/2025 11:30 AM EST Office Visit [facility] NEPHROLOGY [facility]ACT[facility] [address] [place] [phone] 01/22/2026 9:00 AM EDT Office Visit [facility] [address] [place] [address] Allyn Toribio NP [address] [place] [address] documented as of this encounter Results * Vitamin D 25 hydroxy (01/05/2023 10:37 AM EST) [facility] Vitamin D, Total 35.6 30.0 - 100.0 ng/mL 01/05/2023 3:48 PM EST [facility] Blood Venous blood specimen / Unknown Existing Catheter / Unknown 01/05/2023 10:37 AM EST 01/05/2023 11:06 AM EST us Gifty Ricardo MD LAB BLOOD ORDERABLES Final Res ult [facility] [address] [place] [address], [place] [phone] * Phosphorus (01/05/2023 10:37 AM EST) Phosphorus 3.5 2.5 - 4.9 mg/dL 01/05/2023 11:42 AM [facility] Blood Venous blood specimen / Unknown Existing Catheter / Unknown 01/05/2023 10:37 AM EST 01/05/2023 11:06 AM EST Gifty Ricardo MD LAB BLOOD ORDERABLES Final Res ult [facility] [address] [place] [address], * (ABNORMAL) PTH, intact (01/05/2023 10:37 AM EST) PTH 75.5(H) 15.0 - 65.0 pg/mL 01/05/2023 3:48 PM [facility] Blood Venous blood specimen / Unknown Existing Catheter / Unknown 01/05/2023 10:37 AM EST 01/05/2023 11:06 AM EST Gifty Ricardo MD LAB BLOOD ORDERABLES Final Res ult [facility] [address] [place] [address], * (ABNORMAL) Comprehensive metabolic panel (01/05/2023 10:37 AM EST) Sodium 144 133 - 144 mmol/L 01/05/2023 11:42 AM [facility] Potassium 4.3 3.6 - 5.2 mmol/L 01/05/2023 11:42 AM [facility] Chloride 114(H) 98 - 107 mmol/L 01/05/2023 11:42 AM [facility] CO2 26 21 - 32 mmol/L 01/05/2023 11:42 AM [facility] Anion Gap 4(L) 5 - 15 mmol/L 01/05/2023 11:42 AM [facility] BUN 16 7 - 18 mg/dL 01/05/2023 11:42 AM [facility] Creatinine 1.10(H) 0.55 - 1.02 mg/dL 01/05/2023 11:42 AM [facility] BUN/Creatinine Ratio 14.55 10.00 - 20.00 ratio 01/05/2023 11:42 AM [facility] Glucose 137(H) 70 - 110 mg/dL 01/05/2023 11:42 AM [facility] Calcium 9.3 8.5 - 10.1 mg/dL 01/05/2023 11:42 AM [facility] AST 12(L) 15 - 37 U/L 01/05/2023 11:42 AM [facility] ALT (SGPT) 24 13 - 56 U/L 01/05/2023 11:42 AM [facility] Alkaline Phosphatase 123(H) 45 - 117 U/L 01/05/2023 11:42 AM [facility] Total Protein 6.1(L) 6.4 - 8.4 g/dL 01/05/2023 11:42 AM [facility] Albumin 3.0(L) 3.4 - 5.0 g/dL 01/05/2023 11:42 AM [facility] Globulin, Total 3.1 2.4 - 4.8 g/dL 01/05/2023 11:42 AM [facility] A/G Ratio 1.0 0.6 - 1.6 01/05/2023 11:42 AM [facility] Total Bilirubin 0.5 0.0 - 1.0 mg/dL 01/05/2023 11:42 AM [facility] eGFR (CKD-EPI) 53.2(L) >60.0 - 200.0 mL/min/1.7 3m*2 01/05/2023 11:42 AM [facility] Blood Venous blood specimen / Unknown Existing Catheter / Unknown 01/05/2023 10:37 AM EST 01/05/2023 11:06 AM EST Gifty Ricardo MD LAB BLOOD ORDERABLES Final Res ult [facility] [address] [place] [address], [place] [phone] * CBC (01/05/2023 10:37 AM EST) Auto WBC 6.9 3.0 - 11.3 10*3/uL LAB HEMATOLOGY METHOD 01/05/2023 11:17 AM [facility] RBC 4.52 3.45 - 5.40 10*6/uL LAB HEMATOLOGY METHOD 01/05/2023 11:17 AM [facility] Hemoglobin 13.9 10.0 - 16.0 g/dL LAB HEMATOLOGY METHOD 01/05/2023 11:17 AM [facility] Hematocrit 40.9 29.9 - 45.5 % LAB HEMATOLOGY METHOD 01/05/2023 11:17 AM [facility] MCV 90.5 78.2 - 101.8 fL LAB HEMATOLOGY METHOD 01/05/2023 11:17 AM [facility] MCH 30.8 26.4 - 33.3 pg LAB HEMATOLOGY METHOD 01/05/2023 11:17 AM [facility] MCHC 34.0 32.5 - 35.3 g/dL LAB HEMATOLOGY METHOD 01/05/2023 11:17 AM [facility] RDW 14.8 10.1 - 16.2 % LAB HEMATOLOGY METHOD 01/05/2023 11:17 AM [facility] Platelets 240 122 - 454 10*3/uL LAB HEMATOLOGY METHOD 01/05/2023 11:17 AM [facility] MPV 8.1 6.4 - 10.4 fL LAB HEMATOLOGY METHOD 01/05/2023 11:17 AM [facility] Blood Venous blood specimen / Unknown Existing Catheter / Unknown 01/05/2023 10:37 AM EST 01/05/2023 11:07 AM EST Gifty Ricardo MD LAB BLOOD ORDERABLES Final Res ult [facility] [address] [place] [address], documented in this encounter Visit Diagnoses Diagnosis YUMIKO (acute kidney injury) documented in this encounter Additional Health Concerns [...] documented as of this encounter Care Teams Shower Maid Relationship Specialty Start Date End Date Viridiana Plaza NP [address] [place] [address] PCP - General Family Medicine 12/10/22 09/23/23 Italo Camejo NP [address] [facility], [address] [place] [address] PCP - General Family Medicine 09/24/23 03/19/25 Lizandro Khan NP [address] [place] [address] PCP - General Family Medicine 03/20/25 07/22/25 Lizandro Khan NP [address] [place] [address] PCP - General Family Medicine 07/23/25 Rachel Pagan MD [address] [place], [place] [phone] Consulting Physician Oncology 11/11/22 Yesy Acuna RN [address] [place] [address] Nurse Navigator 11/12/22 03/05/25 Pati Rucker APRN [address] [place], [place] [address] Nurse Practitioner Oncology 12/21/22 Sosa Gardner APRN [address] [place], [place] [address] Nurse Practitioner Oncology 06/24/23 Linda Elizabeth DO [address] [place] [address] Consulting Physician Oncology 03/01/25 Elsa Vazquez [address] [place] [address] Nurse Navigator Oncology 06/05/25 07/19/25 Angie Murray RN [address] [place] [address] Nurse Navigator Oncology 06/26/25 documented as of this encounter
--- OUTSIDE RECORDS SUMMARY | 2025-08-22 02:55 | XMS_ITS | Encounter Summary ---
Author Organization [facility] Address [address] [place] [address] Care Team Providers Care Precision Inspector Name Role Phone Italo Camejo VICKY Primary Care Provider [phone] Encounter Details Date Type Department Care Team (Late st Contact Info) Description 02/28/2025 Orders Only External Location [address] [place] [address] Provider, External Social History Tobacco Use Types [...] Name Priority Date/Time Associated Diagnosis Comments CT OUTSIDE IMAGES 02/28/2025 5:59 PM EDT documented in this encounter Results * CT OUTSIDE IMAGES (02/28/2025 5:59 PM EDT) Anatomical Region Laterality Modality Computed Tomogra phy 02/28/2025 5:59 PM EDT us External Provider IMG CT PROCEDURES Final Result documented in this encounter Visit Diagnoses Not on filedocumented in this encounter Additional Health Concerns Assessment Noted Time A fall risk assessment has been complete d for the patient 12/07/2024 3:30 PM EST A Body Mass Index follow-up plan has been documented for the patient 12/07/2024 2:53 PM EST documented as of this encounter Care Teams Precision Inspector Relationship Specialty Start Date End Date Italo Camejo APRN [address] [place] [address] PCP - General 11/18/23 documented as of this encounter
--- OUTSIDE RECORDS SUMMARY | 2025-08-22 02:55 | XMS_ITS | Patient Health Record ---
Author Organization [facility] Address [address] [place] [address] [place] [address] Care Team Providers Care Guest Advisor Name Role Phone Jono Armenta Primary Care Provider JuliannaYarelis Unavailable [phone] Reason For Referral No Information Medications Medication SIG (Take, Route, Frequency, Duration) Notes Start Date End Date Status Topiramate 50 MG TAKE ONE TABLET BY M OUTH AT BEDTIME; Duration: 30 Active Potassium Chloride ER 10 MEQ 1 tablet with food Orally Twice a day; Duration: 30 day(s) 02/23/2020 Active Zithromax Z-Toni 250 MG 2 tablet on the irst day, then 1 tablet daily for 4 days Orally Once a day; Duration: 5 day(s) 02/23/2012 Active Pravastatin Sodium 20 MG 1 tablet Orally Once a day; Duration: 30 day(s) Active Medrol (Toni) 4 MG as directed Orally a s directed; Duration: 5 days 02/23/2012 Active Nitrostat 0.4 MG 1 tablet under the t ongue Sublingual every 8 hrs; Duration: 30 day(s) Active Lisinopril 10 MG 1 tablet Orally Once a day; Duration: 30 day(s) Active Metoprolol Tartrate 25 MG 1 tablet Orall y Twice a day; Duration: 30 day(s) Active Zipsor 25 MG 1 capsule Orally Fou r times a day; Duration: 5 days 02/23/2012 Active Lidoderm 5 % 1 patch to intact sk in remove after 12 hours Externally Once a day; Duration: 5 days 02/23/2012 Active Plan Of Treatment No Information Insurance Providers Payer Name Payer Address Payer Phone Subscriber Number Group Number Insured Name Patient Relationship to Insured Coverage Start Date Coverage End Date SELF PAY Jose Sims Self - patient is the insured Medical (General) History Medical History History ICD Code HTN CHF AK
--- OUTSIDE RECORDS SUMMARY | 2025-08-22 02:55 | XMS_ITS | Encounter Summary ---
Author Organization [facility] nter Address [address] [place] [address] Care Team Providers Care Solutions Analyst Name Role Phone Lizandro Khan MOTOR VEHICLE ESCORT DRIVER Primary Care Provider [phone] Rachel Pagan MD Unavailable [phone] Yesy Acuna RN Unavailable [phone] MOTOR VEHICLE ESCORT DRIVER Primary Care Provider [phone] Pati Rucker INFORMATION TECHNOLOGY AUDITOR Unavailable [phone] Sosa Gardner INFORMATION TECHNOLOGY AUDITOR Unavailable [phone] Italo Camejo MOTOR VEHICLE ESCORT DRIVER Primary Care Provider [phone] Linda Elizabeth DO Unavailable Lizandro Khan MOTOR VEHICLE ESCORT DRIVER Primary Care Provider [phone] Elsa Vazquez Unavailable Unavailable Angie Murray RN Unavailable Unavailab Lizandro Islas MOTOR VEHICLE ESCORT DRIVER Primary Care Provider [phone] Reason for Visit * Reason Comments Med Refill Encounter Details Date Type Department Care Team (Late st Contact Info) Description 08/08/[address] [facility] CARDIOLOGY PRACTICE [address] [place] [address] Genevieve Paredes, GRAHAM [address] [place] [address] Social History Tobacco Use Types Packs/Day Years Used Date Smoking Tobacco: Heavy Smoker Cigarettes 1 30 Smokeless Tobacco: Never Comments Unknown Sex and Gender Information Value Date Recorded [...] suspected to have Coronavirus/COVID-19? No / Unsure 07/30/2022 8:45 AM EDT documented as of this encounter Plan of Treatment Upcoming Encounters Date Type Department Care Team (Late st Contact Info) Description 08/27/2025 8:45 AM EDT Office Visit [facility] ONCOLOGY PRACTICE [address], [address] [place] [address] Rachel Pagan MD [address] [place] [address] 08/28/2025 1:00 PM EDT Office Visit [facility] ORTHOPEDIC PODIATRY PRACTICE [address] 6th [place] [address] Yazan Castro DPM [address] [place] [address] 08/29/2025 10:30 AM EDT Appointment [facility] MEDICAL ONCOLOGY [address], 11th [place] [address] 09/06/2025 1:45 PM EDT Appointment [facility]TR[facility] [address], 2nd [place] [address] 09/12/2025 9:30 AM EDT Appointment [facility] MRI BLDG D [address], [place] [address] 09/28/2025 9:30 AM EST Office Visit [facility]ARDIOLOG[facility]ACT[facility] [address], [address]st [place] [address] Ky Jewell MD [address] [place] [address] 11/05/2025 2:45 PM EST Office Visit [facility] NEUROLOGY PRACTICE [address], 8th [place] [address] Ruddy Mayes MD [address] [facility] [place] [address] 12/31/2025 11:30 AM EST Office Visit [facility] NEPHROLOGY PRACTICE [address] [place], [place] [phone] 01/22/2026 9:00 AM EDT Office Visit [facility] CARDIOLOGY PRACTICE [address], 1st [place] [address] Allny Toribio NP [address] [place] [phone] documented as of this encounter Visit Diagnoses Not on filedocumented in this encounter Additional Health Concerns Infection Onset Date Last Indicated Resolved Time Respiratory Rule-Out 10/25/2022 10/25/2022 022 10:20 AM EST Tuberculosis Rule-Out Comment:Nasim in bed placement questioned TB tag prior to patient admission. Imaging appears to show cavitation, however, I told him this is ultimately up to the physician. Edelmira Alvarado, MPH 10/30/22 11:21 AM Nasim states the nurse spoke with physician who states the pt is not suspected to have TB. No isolation required. Edelmira Alvarado, MPH 10/30/22 11:37 AM 10/30/2022 10/30/2022 10/30/2022 11:37 AM EST Tuberculosis Rule-Out 10/30/2022 10/30/20222021 9:11 AM EST Respiratory Rule-Out 04/20/2024 04/20/2024 024 1:54 PM [...] documented as of this encounter Care Teams Solutions Analyst Relationship Specialty Start Date End Date Lizandro Khan NP [address] [place] [address] PCP - General 12/09/22 Viridiana Plaza NP [address] [place] [phone] PCP - General Family Medicine 12/10/22 09/23/23 Italo Camejo NP [address] [place] [address], [address] [place] [address] PCP - General Family Medicine 09/24/23 03/19/25 Lizandro Khan NP [address] [place] [address] PCP - General Family Medicine 03/20/25 07/22/25 Lizandro Khan NP [address] [place] [address] PCP - General Family Medicine 07/23/25 Rachel aPgan MD [address] [place] [address] Consulting Physician Oncology 11/11/22 Yesy Acuna RN [address] [place] [address] Nurse Navigator 11/12/22 03/05/25 Pati Rucker APRN [address] [place] [address] Nurse Practitioner Oncology 12/21/22 Sosa Gardner APRN [address] [place] [address] Nurse Practitioner Oncology 06/24/23 Linda Elizabeth DO [address] [place] [address] Consulting Physician Oncology 03/01/25 Elsa Vazquez [address] [place] [address] Nurse Navigator Oncology 06/05/25 07/19/25 Angie Murray, ROLDAN [address] [place] [address] Nurse Navigator Oncology 06/26/25 documented as of this encounter
--- OUTSIDE RECORDS SUMMARY | 2025-08-22 02:55 | XMS_ITS | Encounter Summary ---
Author Organization [facility] nter Address [address] [place] [address] Care Team Providers Care Digital Media Producer Name Role Phone Rachel Pagan MD Unavailable [phone] Yesy Acuna RN Unavailable [phone] AWNING SPREADER Primary Care Provider [phone] Pati Rucker CAT SITTER Unavailable [phone] Sosa Gardner CAT SITTER Unavailable [phone] Italo Camejo AWNING SPREADER Primary Care Provider [phone] Linda Elizabeth DO Unavailable Lizandro Khan AWNING SPREADER Primary Care Provider [phone] Elsa Vazquez Unavailable Unavailable Angie Murray RN Unavailable Unavailab Lizandro Islas AWNING SPREADER Primary Care Provider [phone] Encounter Details Date Type Department Care Team (Late st Contact Info) Description 05/20/2023 Orders Only [facility] [address] 10th [place] [address] Rachel Pagan MD [address] [place] [address] Non-small cell cancer of right [...] How often do you attend [facility] or synagogue services? More than 4 [...] health care facility (including now)? No 11/11/2022 Comments No Sex [...] suspected to have Coronavirus/COVID-19? No / Unsure 05/20/2023 8:23 AM EDT documented as of this encounter [...] ONCOLOGY PRACTICE [address], [address]th [place] [address] Rachel Pagan MD [address] [place] [address] 08/28/2025 1:00 PM EDT Office Visit [facility] ORTHOPEDIC PODIATRY PRACTICE [address], 6th [place] [address] Yazan Castro DPM [address] [place] [address] 08/29/2025 10:30 AM EDT Appointment [facility] MEDICAL ONCOLOGY [address], [address]th [place] [address] 09/06/2025 1:45 PM EDT Appointment [facility] ULTRASOUND [address], 2nd [place] [address] 09/12/2025 9:30 AM EDT Appointment [facility] MRI BLDG D [address], [facility] [place] [phone] 09/28/2025 9:30 AM EST Office Visit [facility] CARDIOLOGY PRACTICE [address], 1st [place] [address] Ky Jewell MD [facility] [address] [facility] [place] [address] 11/05/2025 2:45 PM EST Office Visit [facility] NEUROLOGY PRACTICE [address], 8th [place] [address] Ruddy Mayes MD [facility] [address] [facility] [place] [address] 12/31/2025 11:30 AM EST Office Visit [facility] NEPHROLOGY PRACTICE [address] [place] [address] 01/22/2026 9:00 AM EDT Office Visit [facility] CARDIOLOGY PRACTICE [address], 1st [place] [address] Allyn Toribio, GRAHAM [address] [place], [place] [phone] documented as of this encounter Results * (ABNORMAL) Basic metabolic panel (05/25/2023 8:43 AM EDT) Glucose 126(H) 70 - 110 mg/dL 05/25/2023 9:30 AM EDT [facility] Sodium 141 133 - 144 mmol/L 05/25/2023 9:30 AM EDT [facility] Potassium 4.2 3.6 - 5.2 mmol/L 05/25/2023 9:30 AM EDT [facility] Chloride 113(H) 98 - 107 mmol/L 05/25/2023 9:30 AM EDT [facility] CO2 26 21 - 32 mmol/L 05/25/2023 9:30 AM EDT [facility] Anion Gap 2(L) 5 - 15 mmol/L 05/25/2023 9:30 AM EDT [facility] BUN 17 7 - 18 mg/dL 05/25/2023 9:30 AM EDT [facility] Creatinine 1.20(H) 0.55 - 1.02 mg/dL 05/25/2023 9:30 AM EDT [facility] BUN/Creatinine Ratio 14.17 10.00 - 20.00 ratio 05/25/2023 9:30 AM EDT [facility] Calcium 8.8 8.5 - 10.1 mg/dL 05/25/2023 9:30 AM EDT [facility] eGFR (CKD-EPI) 47.9(L) >60.0 - 200.0 mL/min/1.7 3m*2 05/25/2023 9:30 AM EDT [facility] Blood Venous blood specimen / Unknown Existing Catheter / Unknown 05/25/2023 8:43 AM EDT 05/25/2023 9:06 AM EDT Rachel Soriano MD LAB BLOOD ORDERABLES Final Result Performing Organization Address City/State/[facility] Co de Phone Number [facility] [address] [place] [address], documented in this encounter Visit Diagnoses Diagnosis [...] documented as of this encounter Care Teams Digital Media Producer Relationship Specialty Start Date End Date Viridiana Plaza NP [address] [place] [phone] PCP - General Family Medicine 12/10/22 09/23/23 Italo Camejo NP [address] [place] [address], [address] [place] [address] PCP - General Family Medicine 09/24/23 03/19/25 Lizandro Khan NP [address] [place] [address] PCP - General Family Medicine 03/20/25 07/22/25 Lizandro Khan NP [address] [place] [address] PCP - General Family Medicine 07/23/25 Rachel Pagan MD [address] [place] [phone] Consulting Physician Oncology 11/11/22 Yesy Acuna, ROLDAN [address] [place] [address] Nurse Navigator 11/12/22 03/05/25 Pati Rucker APRN [address] [place] [address] Nurse Practitioner Oncology 12/21/22 Sosa Gardner APRN [address] [place] [address] Nurse Practitioner Oncology 06/24/23 Linda Elizabeth DO [address] [place] [address] Consulting Physician Oncology 03/01/25 Elsa Vazquez [address] [place] [address] Nurse Navigator Oncology 06/05/25 07/19/25 Angie Murray, ROLDAN [address] [place] [place] [address] Nurse Navigator Oncology 06/26/25 documented as of this encounter
--- OUTSIDE RECORDS SUMMARY | 2025-08-22 02:55 | XMS_ITS | Encounter Summary ---
Author Organization [facility] n[facility] Address [address] [place] [address] Care Team Providers Care Stunt Man Name Role Phone Rcahel Pagan MD Unavailable Yesy Acuna RN Unavailable [phone] Pati Rucker INFORMATION TECHNOLOGY CONSULTANT Unavailable [phone] Sosa Gardner INFORMATION TECHNOLOGY CONSULTANT Unavailable [phone] Italo Camejo CONTACT LENS TECHNICIAN Primary Care Provider [phone] Linda Elizabeth DO Unavailable Lizandro Khan CONTACT LENS TECHNICIAN Primary Care Provider Elsa Vazquez Unavailable Unavailable Angie Murray RN Unavailable Unavailab Lizandro Islas CONTACT LENS TECHNICIAN Primary Care Provider [phone] Encounter Details Date Type Department Care Team (Late st Contact Info) Description 02/14/2025 Orders Only [facility] MEDICAL ONCOLOGY [address] 11th [place] [address] Generic Social History Tobacco Use Types Packs/Day Years Used Date Smoking Tobacco: Every Day Cigarettes 0.5 30.8 Started: 2024 Passive Smoke Exposure: Current Smokeless Tobacco: Never Comments:Offered patient an appointment at the health department for smoking cessation classes. Patient declined. Alcohol Use Standard Drinks/Week Comments Never 0 (1 standard drink = 0.6 oz pur e alcohol) [facility] Utilities Answer Date Recorded In the past 12 months has e [employer], [employer], oil, or water [employer] threatened to shut off services in your home? No 01/11/2025 Humiliation, Afraid, Rape, and Kick questionnair e [...] How often do you attend chur or anglican services? More than 4 times per year [...] you have a drink containing alcohol? Never 01/10/2025 Q2: How many drinks containi ng alcohol do you have on a typical day when you are drinking? Patient does not drink Q3: How often do you have si x or more drinks on one occasion? Never 01/10/2025 Overall Financial Resource Strain (CARDIA) Answe r [...] exercise at this level? 0 min 01/11/2025 Hunger Vital Sign Answer Date Recorded Within the past 12 months, y ou worried that your food would run out before you got the money to buy more. Never true 01/11/20 25 Within the past 12 months, t he food you bought just didn't last and you didn't have money to get more. Never true 01/11/2025 PRAPARE - Transportation Answer Date Re [...] in a long-term (including now)? No 11/11/2022 Comments No Sex [...] ONCOLOGY PRACTICE [address] [place] [address] Rachel Pagan MD [address] [place] [address] 08/28/2025 1:00 PM EDT Office Visit [facility] ORTHOPEDIC PODIATRY PRACTICE [address], 6[address] [place] [address] Yazan Castro DPM [address] [place] [address] 08/29/2025 10:30 AM EDT Appointment [facility] MEDICAL ONCOLOGY [address], [address] [place] [address] 09/06/2025 1:45 PM EDT Appointment [facility] ULTRASOUND [address], 2nd [place] [address] 09/12/2025 9:30 AM EDT Appointment [facility] MRI BLDG D [address], [place] [address] 09/28/2025 9:30 AM EST Office Visit [facility] CARDIOLOGY PRACTICE [address], 1st [place] [address] Ky Jewell MD [address] [place] [address] 11/05/2025 2:45 PM EST Office Visit [facility] NEUROLOGY PRACTICE [address], 8th [place] [address] Ruddy Mayes MD [facility] [place] [address] 12/31/2025 11:30 AM EST Office Visit [facility] NEPHROLOGY PRACTICE [address] [place] [phone] 01/22/2026 9:00 AM EDT Office Visit [facility] CARDIOLOGY PRACTICE [address] 1[address] [place] [phone] Allyn Toribio NP [address] [place] [phone] documented as of this encounter Visit Diagnoses Not on filedocumented in this encounter Additional Health Concerns Infection Onset Date Last Indicated Resolved Time Respiratory Rule-Out 03/19/2025 03/19/2025 025 11:11 AM EDT Gastrointestinal Rule-Out 05/15/2025 05/18/2025 11:26 AM EDT C. difficile Rule-Out 05/15/2025 05/18/20252024 12:02 PM EDT ESBL Escherichia coli (Urina ry) Comment:Urine + ESBL E coli 05/15/25. Patient already noted to be in contact isolation. Tila Dia 05/21/25 8:47 AM Readmitted 06/12/25. Patient already noted to be in contact isolation. Tila Dia 06/12/25 1:24 PM 05/15/2025 05/15/202506/1406/14/2025 7:28 PM E DT Assessment Noted Time PHQ-9 Depression Total Score: 0 01/11/20 12:00 PM EST documented as of this encounter Care Teams Stunt Man Relationship Specialty Start Date End Date Italo Camejo NP [address] [facility], [address] [place] [address] PCP - General Family Medicine 09/24/23 03/19/25 Lizandro Khan NP [address] [place] [address] PCP - General Family Medicine 03/20/25 07/22/25 Lizandro Khan NP [address] [place] [address] PCP - General Family Medicine 07/23/25 Rachel Pagan MD [address] [place] [address] Consulting Physician Oncology 11/11/22 Yesy Acuna, ROLDAN [address] [place] [address] Nurse Navigator 11/12/22 03/05/25 Pati Rucker APRN [address] [place] [address] Nurse Practitioner Oncology 12/21/22 Sosa Gardner APRN [address] [place] [phone] Nurse Practitioner Oncology 06/24/23 Linda Elizabeth DO [address] [place] [address] Consulting Physician Oncology 03/01/25 Elsa Vazquez [address] [place] [address] Nurse Navigator Oncology 06/05/25 07/19/25 Angie Murray, RN [address] [place] [address] Nurse Navigator Oncology 06/26/25 documented as of this encounter
--- OUTSIDE RECORDS SUMMARY | 2025-08-22 02:55 | XMS_ITS | Encounter Summary ---
Author Organization [facility] nter Address [address] [place] [address] Care Team Providers Care Outside Sales Consultant Name Role Phone Rachel Pagan MD Unavailable [phone] Yesy Acuna RN Unavailable [phone] [address] PLUG MAKING OPERATOR Primary Care Provider [phone] Pati Rucker WAREHOUSE LOGISTICS MANAGER Unavailable [phone] Sosa Gardner WAREHOUSE LOGISTICS MANAGER Unavailable [phone] Italo Camejo PLUG MAKING OPERATOR Primary Care Provider [phone] Linda Elizabeth DO Unavailable Lizandro Khan PLUG MAKING OPERATOR Primary Care Provider [phone] Elsa Vazquez Unavailable Unavailable Angie Murray RN Unavailable Unavailab Lizandro Islas PLUG MAKING OPERATOR Primary Care Provider [phone] Encounter Details Date Type Department Care Team (Late st Contact Info) Description 01/15/2023 Orders Only [facility] [address], 10th [place] [address] Rachel Pagan MD [address] [place] [address] Non-small cell cancer of right [...] week 11/11/2022 How often do you attend [facility] or pentecostalism services? More than 4 times per year [...] in a [facility] (including now)? No 11/11/2022 Comments No Sex [...] suspected to have Coronavirus/COVID-19? No / Unsure 01/18/2023 8:48 AM EST documented as of this encounter [...] Description 08/27/2025 8:45 AM EDT Office Visit [facility] [address], [address]th [place] [address] Rachel Pagan MD [address] [place] [address] 08/28/2025 1:00 PM EDT Office Visit [facility] [address], 6th [place] [address] Yazan Castro DPM [address] [place] [address] 08/29/2025 10:30 AM EDT Appointment [facility] [address], 11th [place] [address] 09/06/2025 1:45 PM EDT Appointment [facility] ULTRASOUND [address], 2nd [place] [address] 09/12/2025 9:30 AM EDT Appointment [facility] MRI BLDG D [address], [facility] [place] [phone] 09/28/2025 9:30 AM EST Office Visit [facility] [address], 1st [place] [address] Ky Jewell MD [facility] [address] [facility] [place] [address] 11/05/2025 2:45 PM EST Office Visit [facility] [address], 8th [place] [address] Ruddy Mayes MD [facility] [address] [facility] [place] [address] 12/31/2025 11:30 AM EST Office Visit [facility] [address] [place] [address] 01/22/2026 9:00 AM EDT Office Visit [facility] [address], 1st [place] [address] Allyn Toribio, GRAHAM [address] [place] [address] documented as of this encounter Results * (ABNORMAL) Comprehensive metabolic panel (01/18/2023 8:50 AM EST) Sodium 141 133 - 144 mmol/L 01/18/2023 9:38 AM EST [facility] Potassium 3.8 3.6 - 5.2 mmol/L 01/18/2023 9:38 AM [facility] Chloride 111(H) 98 - 107 mmol/L 01/18/2023 9:38 AM [facility] CO2 24 21 - 32 mmol/L 01/18/2023 9:38 AM [facility] Anion Gap 6 5 - 15 mmol/L 01/18/2023 9:38 AM [facility] BUN 13 7 - 18 mg/dL 01/18/2023 9:38 AM [facility] Creatinine 1.00 0.55 - 1.02 mg/dL 01/18/2023 9:38 AM [facility] BUN/Creatinine Ratio 13.00 10.00 - 20.00 ratio 01/18/2023 9:38 AM [facility] Glucose 158(H) 70 - 110 mg/dL 01/18/2023 9:38 AM [facility] Calcium 9.1 8.5 - 10.1 mg/dL 01/18/2023 9:38 AM [facility] AST 19 15 - 37 U/L 01/18/2023 9:38 AM [facility] ALT (SGPT) 31 13 - 56 U/L 01/18/2023 9:38 AM [facility] Alkaline Phosphatase 104 45 - 117 U/L 01/18/2023 9:38 AM [facility] Total Protein 6.9 6.4 - 8.4 g/dL 01/18/2023 9:38 AM [facility] Albumin 3.0(L) 3.4 - 5.0 g/dL 01/18/2023 9:38 AM [facility] Globulin, Total 3.9 2.4 - 4.8 g/dL 01/18/2023 9:38 AM [facility] A/G Ratio <1.0 0.6 - 1.6 01/18/2023 9:38 AM [facility] Total Bilirubin 0.3 0.0 - 1.0 mg/dL 01/18/2023 9:38 AM [facility] eGFR (CKD-EPI) 59.7(L) >60.0 - 200.0 mL/min/1.7 3m*2 01/18/2023 9:38 AM [facility] Blood Venous blood specimen / Unknown Existing Catheter / Unknown 01/18/2023 8:50 AM EST 01/18/2023 9:07 AM EST us Rachel Soriano MD LAB BLOOD ORDERABLES Final Result [facility] [address] [place] [address], [place] [phone] * CBC auto differential (01/18/2023 8:50 AM EST) Auto WBC 5.5 3.0 - 11.3 10*3/uL LAB HEMATOLOGY METHOD 01/18/2023 9:19 AM [facility] RBC 4.42 3.45 - 5.40 10*6/uL LAB HEMATOLOGY METHOD 01/18/2023 9:19 AM [facility] Hemoglobin 13.5 10.0 - 16.0 g/dL LAB HEMATOLOGY METHOD 01/18/2023 9:19 AM [facility] Hematocrit 40.2 29.9 - 45.5 % LAB HEMATOLOGY METHOD 01/18/2023 9:19 AM [facility] MCV 91.0 78.2 - 101.8 fL LAB HEMATOLOGY METHOD 01/18/2023 9:19 AM [facility] MCH 30.5 26.4 - 33.3 pg LAB HEMATOLOGY METHOD 01/18/2023 9:19 AM [facility] MCHC 33.5 32.5 - 35.3 g/dL LAB HEMATOLOGY METHOD 01/18/2023 9:19 AM [facility] RDW 14.5 10.1 - 16.2 % LAB HEMATOLOGY METHOD 01/18/2023 9:19 AM [facility] MPV 7.7 6.4 - 10.4 fL LAB HEMATOLOGY METHOD 01/18/2023 9:19 AM [facility] Neutrophils % 64 43 - 83 % LAB HEMATOLOGY METHOD 01/18/2023 9:19 AM [facility] Lymphocytes % 26 10 - 42 % LAB HEMATOLOGY METHOD 01/18/2023 9:19 AM [facility] Monocytes % 6 1 - 14 % LAB HEMATOLOGY METHOD 01/18/2023 9:19 AM [facility] Eosinophils % 3 0 - 11 % LAB HEMATOLOGY METHOD 01/18/2023 9:19 AM [facility] Basophils % 1 0 - 2 % LAB HEMATOLOGY METHOD 01/18/2023 9:19 AM [facility] Neutrophils Absolute 3.50 3.40 - 7.00 10*3/uL LAB HEMATOLOGY METHOD 01/18/2023 9:19 AM [facility] Lymphocytes Absolute 1.40 0.40 - 3.90 10*3/uL LAB HEMATOLOGY METHOD 01/18/2023 9:19 AM [facility] Monocytes Absolute 0.30 0.20 - 0.60 10*3/uL LAB HEMATOLOGY METHOD 01/18/2023 9:19 AM [facility] Eosinophils Absolute 0.10 0.00 - 0.90 10*3/uL LAB HEMATOLOGY METHOD 01/18/2023 9:19 AM [facility] Basophils Absolute 0.10 0.00 - 0.20 10*3/uL LAB HEMATOLOGY METHOD 01/18/2023 9:19 AM [facility] Platelets 241 122 - 454 10*3/uL LAB HEMATOLOGY METHOD 01/18/2023 9:19 AM [facility] Blood Venous blood specimen / Unknown Existing Catheter / Unknown 01/18/2023 8:50 AM EST 01/18/2023 9:07 AM EST us Rachel Soriano MD LAB BLOOD ORDERABLES Final Result Performing Organization Address City/State/RUST Co de Phone Number [facility] [address] [place] [address], documented in this encounter Visit Diagnoses Diagnosis [...] documented as of this encounter Care Teams Outside Sales Consultant Relationship Specialty Start Date End Date Viridiana Plaza NP [address] [place] [phone] PCP - General Family Medicine 12/10/22 09/23/23 Italo Camejo NP [address] [place] [address], [address] [place] [address] PCP - General Family Medicine 09/24/23 03/19/25 Lizandro Khan NP [address] [place] [address] PCP - General Family Medicine 03/20/25 07/22/25 Lizandro Khan NP [address] [place] [address] PCP - General Family Medicine 07/23/25 Rachel Pagan MD [address] [place] [phone] Consulting Physician Oncology 11/11/22 Yesy Acuna RN [address] [place] [address] Nurse Navigator 11/12/22 03/05/25 Pati Rucker APRN [address] [place] [address] Nurse Practitioner Oncology 12/21/22 Sosa Gardner APRN [address] [place] [address] Nurse Practitioner Oncology 06/24/23 Linda Elizabeth DO [address] [place] [address] Consulting Physician Oncology 03/01/25 Elsa Vazquez [address] [place] [address] Nurse Navigator Oncology 06/05/25 07/19/25 Angie Murray RN [address] [place] [address] Nurse Navigator Oncology 06/26/25 documented as of this encounter
--- OUTSIDE RECORDS SUMMARY | 2025-08-22 02:55 | XMS_ITS | Encounter Summary ---
Author Organization [facility] nter Address [address] [place] [address] Care Team Providers Care Sports Marketer Name Role Phone Rachel Pagan MD Unavailable [phone] Yesy Acuna RN Unavailable [phone] RADIOLOGIST PHYSICIAN Primary Care Provider [phone] Pati Rucker VACCINE SPECIALIST Unavailable [phone] Sosa Gardner VACCINE SPECIALIST Unavailable [phone] Italo Camejo RADIOLOGIST PHYSICIAN Primary Care Provider [phone] Linda Elizabeth DO Unavailable Lizandro Khan RADIOLOGIST PHYSICIAN Primary Care Provider [phone] Elsa Vazquez Unavailable Unavailable Angie Murray RN Unavailable Unavailab Lizandro sIlas RADIOLOGIST PHYSICIAN Primary Care Provider [phone] Encounter Details Date Type Department Care Team (Late st Contact Info) Description 05/19/2023 Orders Only [facility] [address], 10th [place] [address] Rachel Pagan MD [address] [place] [address] Non-small cell cancer of right [...] 11/11/2022 How often do you attend [facility] or hinduism services? More than 4 times per year 11/11/2022 Do you belong to any clubs o r organizations such as temple groups, unions, fraternal or athletic groups, or [...] ONCOLOGY PRACTICE [address], 10th [place] [address] Rachel Pagan MD [address] [place] [address] 08/28/2025 1:00 PM EDT Office Visit [facility] [address], 6th [place] [address] Yazan Castro DPM [address] [place] [address] 08/29/2025 10:30 AM EDT Appointment [facility] MEDICAL ONCOL[facility]Y [address], 11th [place] [address] 09/06/2025 1:45 PM EDT Appointment [facility] ULTRASOUND [address], 2nd [place] [address] 09/12/2025 9:30 AM EDT Appointment [facility] MRI BLDG D [address], [facility] [place] [phone] 09/28/2025 9:30 AM EST Office Visit [facility] [address], 1st [place] [address] Ky Jewell MD [address] [facility] [place] [address] 11/05/2025 2:45 PM EST Office Visit [facility]UR[facility] [address], 8th [place] [address] Ruddy Mayes MD [facility] [address] [facility] [place] [address] 12/31/2025 11:30 AM EST Office Visit [facility] [address] [place] [phone] 01/22/2026 9:00 AM EDT Office Visit [facility] [address], 1st [place] [address] Allyn Toribio NP [address] [place], [place] [phone] documented as of this encounter Results * Magnesium (05/20/2023 8:35 AM EDT) Magnesium 2.2 1.7 - 2.4 mg/dL 05/20/2023 9:40 AM EDT [facility] Blood Venous blood specimen / Unknown Existing Catheter / Unknown 05/20/2023 8:35 AM EDT 05/20/2023 9:09 AM EDT Rachel Soriano MD LAB BLOOD ORDERABLES Final Result [facility] [address] [facility] [place] [address], * (ABNORMAL) Comprehensive metabolic panel (05/20/2023 8:35 AM EDT) Sodium 143 133 - 144 mmol/L 05/20/2023 9:40 AM [facility] Potassium 4.0 3.6 - 5.2 mmol/L 05/20/2023 9:40 AM [facility] Chloride 113(H) 98 - 107 mmol/L 05/20/2023 9:40 AM [facility] CO2 28 21 - 32 mmol/L 05/20/2023 9:40 AM [facility] Anion Gap 2(L) 5 - 15 mmol/L 05/20/2023 9:40 AM [facility] BUN 22(H) 7 - 18 mg/dL 05/20/2023 9:40 AM [facility] Creatinine 1.20(H) 0.55 - 1.02 mg/dL 05/20/2023 9:40 AM [facility] BUN/Creatinine Ratio 18.33 10.00 - 20.00 ratio 05/20/2023 9:40 AM [facility] Glucose 121(H) 70 - 110 mg/dL 05/20/2023 9:40 AM [facility] Calcium 8.3(L) 8.5 - 10.1 mg/dL 05/20/2023 9:40 AM [facility] AST 12(L) 15 - 37 U/L 05/20/2023 9:40 AM [facility] ALT (SGPT) 22 13 - 56 U/L 05/20/2023 9:40 AM [facility] Alkaline Phosphatase 130(H) 45 - 117 U/L 05/20/2023 9:40 AM [facility] Total Protein 6.4 6.4 - 8.4 g/dL 05/20/2023 9:40 AM [facility] Albumin 2.7(L) 3.4 - 5.0 g/dL 05/20/2023 9:40 AM [facility] Globulin, Total 3.7 2.4 - 4.8 g/dL 05/20/2023 9:40 AM [facility] A/G Ratio 0.7 0.6 - 1.6 05/20/2023 9:40 AM [facility] Total Bilirubin 0.3 0.0 - 1.0 mg/dL 05/20/2023 9:40 AM [facility] eGFR (CKD-EPI) 47.9(L) >60.0 - 200.0 mL/min/1.7 3m*2 05/20/2023 9:40 AM [facility] Blood Venous blood specimen / Unknown Existing Catheter / Unknown 05/20/2023 8:35 AM EDT 05/20/2023 9:09 AM EDT Rachel Soriano MD LAB BLOOD ORDERABLES Final Result [facility] [address] [place] [address], * CBC auto differential (05/20/2023 8:35 AM EDT) Auto WBC 6.1 3.0 - 11.3 10*3/uL LAB HEMATOLOGY METHOD 05/20/2023 9:15 AM [facility] RBC 4.23 3.45 - 5.40 10*6/uL LAB HEMATOLOGY METHOD 05/20/2023 9:15 AM [facility] Hemoglobin 13.4 10.0 - 16.0 g/dL LAB HEMATOLOGY METHOD 05/20/2023 9:15 AM [facility] Hematocrit 39.1 29.9 - 45.5 % LAB HEMATOLOGY METHOD 05/20/2023 9:15 AM [facility] MCV 92.4 78.2 - 101.8 fL LAB HEMATOLOGY METHOD 05/20/2023 9:15 AM [facility] MCH 31.6 26.4 - 33.3 pg LAB HEMATOLOGY METHOD 05/20/2023 9:15 AM [facility] MCHC 34.3 32.5 - 35.3 g/dL LAB HEMATOLOGY METHOD 05/20/2023 9:15 AM [facility] RDW 14.1 10.1 - 16.2 % LAB HEMATOLOGY METHOD 05/20/2023 9:15 AM [facility] MPV 8.5 6.4 - 10.4 fL LAB HEMATOLOGY METHOD 05/20/2023 9:15 AM [facility] Neutrophils % 62 43 - 83 % LAB HEMATOLOGY METHOD 05/20/2023 9:15 AM [facility] Lymphocytes % 25 10 - 42 % LAB HEMATOLOGY METHOD 05/20/2023 9:15 AM [facility] Monocytes % 7 1 - 14 % LAB HEMATOLOGY METHOD 05/20/2023 9:15 AM [facility] Eosinophils % 6 0 - 11 % LAB HEMATOLOGY METHOD 05/20/2023 9:15 AM [facility] Basophils % 1 0 - 2 % LAB HEMATOLOGY METHOD 05/20/2023 9:15 AM [facility] Neutrophils Absolute 3.80 3.40 - 7.00 10*3/uL LAB HEMATOLOGY METHOD 05/20/2023 9:15 AM [facility] Lymphocytes Absolute 1.60 0.40 - 3.90 10*3/uL LAB HEMATOLOGY METHOD 05/20/2023 9:15 AM [facility] Monocytes Absolute 0.40 0.20 - 0.60 10*3/uL LAB HEMATOLOGY METHOD 05/20/2023 9:15 AM [facility] Eosinophils Absolute 0.30 0.00 - 0.90 10*3/uL LAB HEMATOLOGY METHOD 05/20/2023 9:15 AM [facility] Basophils Absolute 0.00 0.00 - 0.20 10*3/uL LAB HEMATOLOGY METHOD 05/20/2023 9:15 AM [facility] Platelets 178 122 - 454 10*3/uL LAB HEMATOLOGY METHOD 05/20/2023 9:15 AM [facility] Blood Venous blood specimen / Unknown Existing Catheter / Unknown 05/20/2023 8:35 AM EDT 05/20/2023 9:08 AM EDT us Rachel Soriano MD LAB BLOOD ORDERABLES Final Result [facility] [address] [place] [address], documented in this encounter Visit Diagnoses Diagnosis [...] noted to be in contact isolation. Tila South 05/21/25 8:47 AM Readmitted 06/12/25. Patient already noted to be in contact isolation. Tila South 06/12/25 1:24 PM 05/15/2025 05/15/2025 06/14/2025 7:28 PM E DT documented as of this encounter Care Teams Sports Marketer Relationship Specialty Start Date End Date Viridiana Plaza NP [address] [place] [address] PCP - General Family Medicine 12/10/22 09/23/23 Italo Camejo RADIOLOGIST PHYSICIAN [address] [facility], [address] [place] [address] PCP - General Family Medicine 09/24/23 03/19/25 Lizandro Khan NP [address] [facility] [place] [address] PCP - General Family Medicine 03/20/25 07/22/25 Lizandro Khan NP [address] [facility] [place] [address] PCP - General Family Medicine 07/23/25 Rachel Pagan MD [address] [place] [phone] Consulting Physician Oncology 11/11/22 Yesy Acuna, ROLDAN [address] [place] [address] Nurse Navigator 11/12/22 03/05/25 Pati Rucker APRN [address] [place] [phone] Nurse Practitioner Oncology 12/21/22 Sosa Gardner APRN [address] [place] [phone] Nurse Practitioner Oncology 06/24/23 Linda Elizabeth DO [address] [place] [address] Consulting Physician Oncology 03/01/25 Elsa Vazquez [address] [place] [address] Nurse Navigator Oncology 06/05/25 07/19/25 Angie Murray, RN [address] [place] [address] Nurse Navigator Oncology 06/26/25 documented as of this encounter
--- OUTSIDE RECORDS SUMMARY | 2025-08-22 02:55 | XMS_ITS | Encounter Summary ---
Author Organization [facility] nter Address [address] [place] [address] Care Team Providers Care Fish And Game Club Manager Name Role Phone Rachel Pagan MD Unavailable [phone] Yesy Acuna RN Unavailable [phone] Pati Rucker GRAPHIC PRODUCTION ARTIST Unavailable [phone] Sosa Gardner GRAPHIC PRODUCTION ARTIST Unavailable [phone] Italo Camejo SNOW BLOWER Primary Care Provider [phone] Linda Elizabeth DO Unavailable Lizandro Khan SNOW BLOWER Primary Care Provider [phone] Elsa Vazquez Unavailable Unavailable Angie Murray RN Unavailable Unavailab Lizandro Islas SNOW BLOWER Primary Care Provider [phone] Encounter Details Date Type Department Care Team (Late st Contact Info) Description 01/18/2025 Orders Only [facility] [address] 10[address] [place] [address] Tisha Faustin, ROLDAN [address] [place] [address] Social History Tobacco Use Types Packs/Day Years Used Date Smoking Tobacco: Every Day Cigarettes 0.5 30.8 Started: 2024 Passive Smoke Exposure: Current Smokeless Tobacco: Never Comments:Offered patient an appointment at the health department for smoking cessation classes. Patient declined. Alcohol Use Standard Drinks/Week Comments Never 0 (1 standard drink = 0.6 oz pur e alcohol) [facility] Utilities Answer Date Recorded In [...] week 11/11/2022 How often do you attend [facility] or yazidism services? More than 4 times per year 11/11/2022 Do you belong to any clubs o r organizations such as episcopal groups, unions, fraternal or athletic groups, or [...] ONCOLOGY PRACTICE [address], [address]th [place] [address] Rachel Pagan MD [address] [place] [address] 08/28/2025 1:00 PM EDT Office Visit [facility] PRACT[facility] [address], 6th [place] [address] Yazan Castro DPM [address] [place] [address] 08/29/2025 10:30 AM EDT Appointment [facility] MEDICAL ONCOL[facility]Y [address], 11th [place] [address] 09/06/2025 1:45 PM EDT Appointment [facility] ULTRASOUND [address], 2nd [place] [address] 09/12/2025 9:30 AM EDT Appointment [facility] MRI BLDG D [address], [facility] [place] [address] 09/28/2025 9:30 AM EST Office Visit [facility]ARDIOLOG[facility] PRACTICE [address], 1st [place] [address] Ky Jewell MD [facility] [place] [address] 11/05/2025 2:45 PM EST Office Visit [facility]UR[facility]ACT[facility] [address], 8th [place] [address] Ruddy Mayes MD [facility] [address] [facility] [place] [address] 12/31/2025 11:30 AM EST Office Visit [facility] [address] [phone] 01/22/2026 9:00 AM EDT Office Visit [facility] [address], 1st [place] [address] Allyn Toribio NP [address] [place] [address] Road [place] [phone] documented as of this encounter Visit Diagnoses [...] noted to be in contact isolation. Tila Dai 06/12/25 1:24 PM 05/15/2025 05/15/2025 06/14/2025 7:28 PM E DT Assessment Noted Time PHQ-9 Depression Total Score: 0 01/11/20 12:00 PM EST documented as of this encounter Care Teams Fish And Game Club Manager Relationship Specialty Start Date End Date Italo Camejo NP [address] [facility], [address] [place] [address] PCP - General Family Medicine 09/24/23 03/19/25 Lizandro Khan NP [address] [place] [address] PCP - General Family Medicine 03/20/25 07/22/25 Lizandro Khan NP [address] [place] [address] PCP - General Family Medicine 07/23/25 Rachel Pagan MD [facility] [address] [facility] [place] [address] Consulting Physician Oncology 11/11/22 Yesy Acuna RN [address] [place] [address] Nurse Navigator 11/12/22 03/05/25 Pati Rucker APRN [address] [place] [address] Nurse Practitioner Oncology 12/21/22 Sosa Gardner APRN [address] [place] [address] Nurse Practitioner Oncology 06/24/23 Linda Elizabeth DO [address] [place] [address] Consulting Physician Oncology 03/01/25 Elsa Vazquez [address] [place] [address] Nurse Navigator Oncology 06/05/25 07/19/25 Angie Murray, ROLDAN [address] [place] [address] Nurse Navigator Oncology 06/26/25 documented as of this encounter
--- OUTSIDE RECORDS SUMMARY | 2025-08-22 02:55 | XMS_ITS | Encounter Summary ---
Author Organization [facility] nter Address [address] [place] [address] Care Team Providers Care Car Ferry Master Name Role Phone Rachel Pagan MD Unavailable [phone] Pati Rucker [facility] Unavailable Sosa Gardner [facility] Unavailable Linda Elizabeth DO Unavailable Lizandro Khan WORSHIP LEADER Primary Care Provider [phone] Elsa Vazquez Unavailable Unavailable Angie Murray RN Unavailable Unavailab Lizandro Islas WORSHIP LEADER Primary Care Provider [phone] Encounter Details Date Type Department Care Team (Late st Contact Info) Description 03/26/2025 Orders Only [facility] [address] [place] [id number] Phyllis Delgadillo MD [address] [place] [address] Non-small cell lung cancer, unspecified laterality; Dyspnea, unspecified type Social History Tobacco Use Types Packs/Day Years Used Date Smoking Tobacco: Every Day Cigarettes 0.5 30.8 Started: 2024 Passive Smoke Exposure: Current Smokeless Tobacco: Never Comments:Offered patient an appointment at the health department for smoking cessation classes. Patient declined. Alcohol Use Standard Drinks/Week Comments Never 0 (1 standard drink = 0.6 oz pur e alcohol) [facility] Utilities Answer Date Recorded In the past 12 months has e electric, gas, oil, or water company threatened to shut off services in your home? No 03/19/2025 Humiliation, Afraid, Rape, and Kick questionnair e [...] often do you attend chur ch or buddhism services? More than 4 times per year 11/11/2022 Do you belong to any clubs o r organizations such as jain groups, unions, fraternal or athletic groups, or school groups? Yes 11/11/2022 How often do you attend meet ings of the clubs or organizations you belong to? More than 4 times per year 11/11/2022 Are you , , di vorced, , never , or living with a partner? 11/11/2022 AUDIT-C Answer Date Recorded Q1: How often do you have a drink containing alcohol? Never 03/19/2025 Q2: How many drinks containi ng alcohol do you have on a typical day when you are drinking? Patient does not drink Q3: How often do you have si x or more drinks on one occasion? Never 03/19/2025 Overall Financial Resource Strain (CARDIA) Answe r [...] the money to buy more. Never true 03/19/20 25 Within the past 12 months, t he food you bought just didn't last and you didn't have money to get more. Never true 03/19/2025 PRAPARE - Transportation Answer Date Re corded [...] a senior living (including now)? No 11/11/2022 Comments No Sex [...] ONCOLOGY PRACTICE [address] [place] [address] Rachel Pagan MD [address] [place] [address] 08/28/2025 1:00 PM EDT Office Visit [facility] ORTHOPEDIC PODIATRY PRACTICE [address]th [place] [address] Yazan Castro DPM [address] [place] [address] 08/29/2025 10:30 AM EDT Appointment [facility] MEDICAL ONCOLOGY [address] 11th [place] [address] 09/06/2025 1:45 PM EDT Appointment [facility] ULTRASOUND [address], 2nd [place] [address] 09/12/2025 9:30 AM EDT Appointment [facility] MRI BLDG D [address], [place] [address] 09/28/2025 9:30 AM EST Office Visit [facility] CARDIOLOGY PRACTICE [address], 1st Floor [place] [address] Ky Jewell MD [address] [place] [address] 11/05/2025 2:45 PM EST Office Visit [facility] NEUROLOGY PRACTICE [address], 8th [place] [address] Ruddy Mayes MD [facility] [address] [place] [address] 12/31/2025 11:30 AM EST Office Visit [facility] NEPHROLOGY PRACTICE [address] [id number] 01/22/2026 9:00 AM EDT Office Visit [facility] CARDIOLOGY PRACTICE [address], [address] [place] [address] Allyn Toribio NP [address] [place] [id number] documented as of this encounter Visit Diagnoses Diagnosis Non-small cell lung cancer, unspecified laterality Dyspnea, unspecified type documented in this encounter Additional Health Concerns Infection Onset Date Last Indicated Resolved Time Gastrointestinal Rule-Out 05/15/2025 05/18/2025 11:26 AM EDT C. difficile Rule-Out 05/15/2025 05/18/20252024 12:02 PM EDT ESBL Escherichia coli (Urina ry) Comment:Urine + ESBL E coli 05/15/25. Patient already noted to be in contact isolation. Tila Dia 05/21/25 8:47 AM Readmitted 06/12/25. Patient already noted to be in contact isolation. Tila Dia 06/12/25 1:24 PM 05/15/2025 05/15/202506/14/2025 7:28 PM E DT Assessment Noted Time PHQ-9 Depression Total Score: 0 03/20/20 9:00 AM EDT documented as of this encounter Care Teams Car Ferry Master Relationship Specialty Start Date End Date Lizandro Khan NP [address] [place] [address] PCP - General Family Medicine 03/20/25 07/22/25 Lizandro Khan NP [address] [place] [address] PCP - General Family Medicine 07/23/25 Rachel Pagan MD [address] [place], [place] [address] Consulting Physician Oncology 11/11/22 Pati Rucker APRN [address] [place] [address] Nurse Practitioner Oncology 12/21/22 Sosa Gardner APRN [address] [place] [address] Nurse Practitioner Oncology 06/24/23 Linda Elizabeth DO [address] [place] [address] Consulting Physician Oncology 03/01/25 Elsa Vazquez [address] [place] [address] Nurse Navigator Oncology 06/05/25 07/19/25 Angie Murray, ROLDAN [address] [place] [address] Nurse Navigator Oncology 06/26/25 documented as of this encounter
--- OUTSIDE RECORDS SUMMARY | 2025-08-22 02:55 | XMS_ITS | Encounter Summary ---
Author Organization [facility] nter Address [address] [place] [address] Care Team Providers Care Starcher And Tenter Range Feeder Name Role Phone Rachel Pagan MD Unavailable [phone] Yesy Acuna RN Unavailable Pati Rucker WHEEL ALIGNMENT TECHNICIAN Unavailable [phone] Sosa Gardner WHEEL ALIGNMENT TECHNICIAN Unavailable [phone] Italo Camejo CONTAINER PACKER OPERATOR Primary Care Provider [phone] Linda Elizabeth DO Unavailable Lizandro Khan CONTAINER PACKER OPERATOR Primary Care Provider [phone] Elsa Vazquez Unavailable Unavailable Angie Murray RN Unavailable Unavailab Lizandro Islas CONTAINER PACKER OPERATOR Primary Care Provider [phone] Encounter Details Date Type Department Care Team (Late st Contact Info) Description 11/28/2024 Orders Only [facility] ONCOLOGY PRACTICE [address], 10th [place] [address] Rachel Pagan MD [address] [place] [address] Non-small cell cancer of right lung Social History Tobacco Use Types Packs/Day Years Used Date Smoking Tobacco: Every Day Cigarettes 0.5 30 Passive Smoke Exposure: Current Smokeless Tobacco: Never Comments:Offered patient an appointment at the health department for smoking cessation classes. Patient declined. Alcohol Use Standard Drinks/Week Comments Never 0 (1 standard drink = 0.6 oz pur e alcohol) [facility] Utilities Answer Date Recorded In the past [...] do you attend [facility] or nondenominational services? More than 4 times [...] ONCOLOGY PRACTICE [address], [address] [place] [address] Rachel Pagan MD [address] [place] [address] 08/28/2025 1:00 PM EDT Office Visit [facility] ORTHOPEDIC PODIATRY PRACTICE [address], 6th [place] [address] Yazan Castro DPM [address] [place] [address] 08/29/2025 10:30 AM EDT Appointment [facility] MEDICAL ONCOLOGY [address], 11th [place] [address] 09/06/2025 1:45 PM EDT Appointment [facility] ULTRASOUND [address], 2nd [place] [address] 09/12/2025 9:30 AM EDT Appointment [facility] MRI BLDG D [address], [facility] [place] [address] 09/28/2025 9:30 AM EST Office Visit [facility] CARDIOLOGY PRACTICE [address], 1st Floor [facility] [place] [address] Ky Jewell MD [address] [facility] [place] [address] 11/05/2025 2:45 PM EST Office Visit [facility] NEUROLOGY PRACTICE [address], 8th [place] [address] Ruddy Mayes MD [address] [facility] [place] [address] 12/31/2025 11:30 AM EST Office Visit [facility] NEPHROLOGY PRACTICE [address] [phone] 01/22/2026 9:00 AM EDT Office Visit [facility] CARDIOLOGY PRACTICE [address], 1st Floor [place] [facility] [place] [address] Allyn Toribio NP [address] [place] [phone] documented as of this encounter Procedures Procedure Name Priority Date/Time Associated Diagnosis Comments CBC WITH AUTO DIFFERENTIAL Routine 11/28/2024 9:18 AM EST Non-small cell cancer of right lung COMPREHENSIVE METABOLIC PANEL Routine 11/28/2024 9:18 AM EST Non-small cell cancer of right lung documented in this encounter Results * (ABNORMAL) CBC auto differential (11/28/2024 9:18 AM EST) Auto WBC 11.8(H) 3.8 - 11.0 10*3/uL 11/28/2024 9:53 AM [facility] RBC 4.31 3.73 - 5.13 10*6/uL 11/28/2024 9:53 AM [facility] Hemoglobin 14.0 11.2 - 15.3 g/dL 11/28/2024 9:53 AM [facility] Hematocrit 41.5 32.6 - 44.6 % 11/28/2024 9:53 AM [facility] MCV 96.2(H) 78.8 - 96.0 fL 11/28/2024 9:53 AM [facility] MCH 32.4 26.2 - 33.0 pg 11/28/2024 9:53 AM [facility] MCHC 33.6 32.7 - 35.1 g/dL 11/28/2024 9:53 AM [facility] RDW 13.8 12.1 - 16.1 % 11/28/2024 9:53 AM [facility] MPV 8.3 7.0 - 10.6 fL 11/28/2024 9:53 AM [facility] Neutrophils % 84(H) 47 - 79 % 11/28/2024 9:53 AM [facility] Lymphocytes % 11(L) 13 - 41 % 11/28/2024 9:53 AM [facility] Monocytes % 5 3 - 11 % 11/28/2024 9:53 AM [facility] Eosinophils % 0 0 - 6 % 11/28/2024 9:53 AM [facility] Basophils % 0 0 - 2 % 11/28/2024 9:53 AM [facility] Neutrophils Absolute 9.90(H) 1.90 - 7.50 10*3/uL 11/28/2024 9:53 AM [facility] Lymphocytes Absolute 1.30 0.80 - 3.20 10*3/uL 11/28/2024 9:53 AM [facility] Monocytes Absolute 0.50 0.10 - 0.90 10*3/uL 11/28/2024 9:53 AM [facility] Eosinophils Absolute 0.00 0.00 - 0.40 10*3/uL 11/28/2024 9:53 AM [facility] Basophils Absolute 0.00 0.00 - 0.20 10*3/uL 11/28/2024 9:53 AM [facility] Platelets 190 138 - 402 10*3/uL 11/28/2024 9:53 AM [facility] Blood Venous blood specimen / Unknown Existing Catheter / Unknown 11/28/2024 9:18 AM EST 11/28/2024 9:41 AM EST us Rachel Soriano MD LAB BLOOD ORDERABLES Final Result [facility] [address] [place] [address], * (ABNORMAL) Comprehensive metabolic panel (11/28/2024 9:18 AM EST) Sodium 135 134 - 143 mmol/L 11/28/2024 10:30 AM [facility] Potassium 4.2 3.2 - 4.6 mmol/L 11/28/2024 10:30 AM [facility] Chloride 100 99 - 108 mmol/L 11/28/2024 10:30 AM [facility] CO2 31(H) 19 - 29 mmol/L 11/28/2024 10:30 AM [facility] Anion Gap 4(L) 5 - 15 mmol/L 11/28/2024 10:30 AM [facility] BUN 21(H) 7 - 20 mg/dL 11/28/2024 10:30 AM [facility] Creatinine 0.74 <=1.20 mg/dL 11/28/2024 10:30 AM [facility] BUN/Creatinine Ratio 28.38(H) 10.00 - 20.00 ratio 11/28/2024 10:30 AM [facility] Glucose 202(H) 58 - 104 mg/dL 11/28/2024 10:30 AM [facility] Calcium 8.8 7.9 - 11.1 mg/dL 11/28/2024 10:30 AM [facility] AST 15 10 - 28 U/L 11/28/2024 10:30 AM [facility] ALT (SGPT) 34 <=40 U/L 11/28/2024 10:30 AM [facility] Alkaline Phosphatase 83 29 - 108 U/L 11/28/2024 10:30 AM [facility] Total Protein 6.2 5.9 - 7.9 g/dL 11/28/2024 10:30 AM [facility] Albumin 3.2(L) 3.5 - 5.1 g/dL 11/28/2024 10:30 AM [facility] Globulin, Total 3.0 2.4 - 4.8 g/dL 11/28/2024 10:30 AM [facility] A/G Ratio 1.1 0.6 - 1.6 11/28/2024 10:30 AM [facility] Total Bilirubin 0.4 0.3 - 1.0 mg/dL 11/28/2024 10:30 AM [facility] eGFR (CKD-EPI) 84.7 >60.0 - 200.0 mL/min/1. 73m*2 11/28/2024 10:30 AM [facility] Blood Venous blood specimen / Unknown Existing Catheter / Unknown 11/28/2024 9:18 AM EST 11/28/2024 9:41 AM [facility] - 11/28/2024 10:30 AM EST Please note possible changes in reference range and units reported due to change in methodology. us Rachel Soriano MD LAB BLOOD ORDERABLES Final Result [facility] [address] [place] [address], documented in this encounter Visit Diagnoses Diagnosis [...] documented as of this encounter Care Teams Starcher And Tenter Range Feeder Relationship Specialty Start Date End Date Italo Camejo NP [address] [facility], [address] [place] [address] PCP - General Family Medicine 09/24/23 03/19/25 Lizandro Khan NP [address] [place] [address] PCP - General Family Medicine 03/20/25 07/22/25 Lizandro Khan NP [address] [place] [address] PCP - General Family Medicine 07/23/25 Rachel Pagan MD [address] [place] [phone] Consulting Physician Oncology 11/11/22 Yesy Acuna, RN [address] [place] [address] Nurse Navigator 11/12/22 03/05/25 Pati Rucker APRN [address] [place], [place] [address] Nurse Practitioner Oncology 12/21/22 Sosa Gardner APRN [address] [place] [address] Nurse Practitioner Oncology 06/24/23 Linda Elizabeth DO [address] [place] [address] Consulting Physician Oncology 03/01/25 Elsa Vazquez [address] [place] [address] Nurse Navigator Oncology 06/05/25 07/19/25 Angie Murray, ROLDAN [address] [place], [place] [address] Nurse Navigator Oncology 06/26/25 documented as of this encounter
--- OUTSIDE RECORDS SUMMARY | 2025-08-22 02:55 | XMS_ITS | Encounter Summary ---
Author Organization [facility] Address [address] [place] [address] Care Team Providers Care Clerical Support Name Role Phone Italo Camejo VICKY Primary Care Provider [phone] Encounter Details Date Type Department Care Team (Late st Contact Info) Description 02/28/2025 Orders Only External Location [address] [place] [address] Provider, External Social History Tobacco Use Types [...] documented as of this encounter Care Teams Clerical Support Relationship Specialty Start Date End Date Italo Camejo APRN [address] [place] [address] PCP - General 11/18/23 documented as of this encounter
--- OUTSIDE RECORDS SUMMARY | 2025-08-22 02:55 | XMS_ITS | Encounter Summary ---
Author Organization [facility] Address [address] [place] [address] Care Team Providers Care Last Sorter Name Role Phone Italo Camejo VICKY Primary Care Provider [phone] Encounter Details Date Type Department Care Team (Late st Contact Info) Description 02/28/2025 Orders Only External Location [address] [place] [address] Provider, External Social History Tobacco Use Types [...] documented as of this encounter Care Teams Last Sorter Relationship Specialty Start Date End Date Italo Camejo APRN [address] [place] [address] PCP - General 11/18/23 documented as of this encounter
--- OUTSIDE RECORDS SUMMARY | 2025-08-22 02:55 | XMS_ITS | Encounter Summary ---
Author Organization [facility] nter Address [address] [place] [address] Care Team Providers Care Diesel Mechanic Apprentice Name Role Phone Rachel Pagan MD Unavailable [phone] Yesy Acuna RN Unavailable Pati Rucker OPERATIONAL TRAINER Unavailable [phone] Sosa Gardner OPERATIONAL TRAINER Unavailable [phone] Italo Camejo CHEF UNDER Primary Care Provider [phone] Linda Elizabeth DO Unavailable Lizandro Khan CHEF UNDER Primary Care Provider [phone] Elsa Vazquez Unavailable Unavailable Angie Murray RN Unavailable Unavailab Lizandro Islas CHEF UNDER Primary Care Provider [phone] Encounter Details Date Type Department Care Team (Late st Contact Info) Description 12/09/2023 Orders Only [facility] ONCOLOGY PRACTICE [address], 10th [place] [address] Rachel Pagan MD [address] [place] [address] Non-small cell cancer of right lung Social History Tobacco Use Types Packs/Day Years Used Date Smoking Tobacco: Every Day Cigarettes 1 30 Passive Smoke Exposure: Current [...] week 11/11/2022 How often do you attend [facility] or muslim services? More than 4 times per year 11/11/2022 Do you belong to any clubs o r organizations such as nondenominational groups, unions, fraternal or athletic groups, or [...] in a alf (including now)? No 11/11/2022 Comments No Sex [...] ONCOLOGY PRACTICE [address], 10th [place] [address] Rachel Pagan MD [address] [place] [address] 08/28/2025 1:00 PM EDT Office Visit [facility] ORTHOPEDIC PODIATRY PRACTICE [address], 6th [place] [address] Yazan Castro DPM [address] [place] [address] 08/29/2025 10:30 AM EDT Appointment [facility] MEDICAL ONCOLOGY [address], 11th [place] [address] 09/06/2025 1:45 PM EDT Appointment [facility] ULTRASOUND [address], 2nd [place] [address] 09/12/2025 9:30 AM EDT Appointment [facility] MRI BLDG D [address], [place] [address] 09/28/2025 9:30 AM EST Office Visit [facility] CARDIOLOGY PRACTICE [address], 1st [place] [address] Ky Jewell MD [address] [place] [address] 11/05/2025 2:45 PM EST Office Visit [facility] NEUROLOGY PRACTICE [address], 8th [place] [address] Ruddy Mayes MD [address] [place] [address] 12/31/2025 11:30 AM EST Office Visit [facility] NEPHROLOGY PRACTICE [address] [place] [address] 01/22/2026 9:00 AM EDT Office Visit [facility] CARDIOLOGY PRACTICE [address], 1st [place] [address] Allyn Toribio NP [address] [place] [phone] documented as of this encounter Procedures Procedure Name Priority Date/Time Associated Diagnosis Comments CBC WITH AUTO DIFFERENTIAL Routine 12/09/2023 9:10 AM EST Non-small cell cancer of right lung COMPREHENSIVE METABOLIC PANEL Routine 12/09/2023 9:10 AM EST Non-small cell cancer of right lung documented in this encounter Results * (ABNORMAL) CBC auto differential (12/09/2023 9:10 AM EST) Auto WBC 8.9 3.0 - 11.3 10*3/uL LAB HEMATOLOGY METHOD 12/09/2023 9:28 AM EST [facility] RBC 4.34 3.45 - 5.40 10*6/uL LAB HEMATOLOGY METHOD 12/09/2023 9:28 AM EST [facility] Hemoglobin 14.5 10.0 - 16.0 g/dL LAB HEMATOLOGY METHOD 12/09/2023 9:28 AM [facility] Hematocrit 41.9 29.9 - 45.5 % LAB HEMATOLOGY METHOD 12/09/2023 9:28 AM [facility] MCV 96.4 78.2 - 101.8 fL LAB HEMATOLOGY METHOD 12/09/2023 9:28 AM [facility] MCH 33.3 26.4 - 33.3 pg LAB HEMATOLOGY METHOD 12/09/2023 9:28 AM [facility] MCHC 34.6 32.5 - 35.3 g/dL LAB HEMATOLOGY METHOD 12/09/2023 9:28 AM [facility] RDW 14.2 10.1 - 16.2 % LAB HEMATOLOGY METHOD 12/09/2023 9:28 AM [facility] MPV 8.8 6.4 - 10.4 fL LAB HEMATOLOGY METHOD 12/09/2023 9:28 AM [facility] Neutrophils % 57 43 - 83 % LAB HEMATOLOGY METHOD 12/09/2023 9:28 AM [facility] Lymphocytes % 32 10 - 42 % LAB HEMATOLOGY METHOD 12/09/2023 9:28 AM [facility] Monocytes % 9 1 - 14 % LAB HEMATOLOGY METHOD 12/09/2023 9:28 AM [facility] Eosinophils % 2 0 - 11 % LAB HEMATOLOGY METHOD 12/09/2023 9:28 AM [facility] Basophils % 1 0 - 2 % LAB HEMATOLOGY METHOD 12/09/2023 9:28 AM [facility] Neutrophils Absolute 5.10 3.40 - 7.00 10*3/uL LAB HEMATOLOGY METHOD 12/09/2023 9:28 AM [facility] Lymphocytes Absolute 2.80 0.40 - 3.90 10*3/uL LAB HEMATOLOGY METHOD 12/09/2023 9:28 AM [facility] Monocytes Absolute 0.80(H) 0.20 - 0.60 10*3/uL LAB HEMATOLOGY METHOD 12/09/2023 9:28 AM [facility] Eosinophils Absolute 0.10 0.00 - 0.90 10*3/uL LAB HEMATOLOGY METHOD 12/09/2023 9:28 AM [facility] Basophils Absolute 0.10 0.00 - 0.20 10*3/uL LAB HEMATOLOGY METHOD 12/09/2023 9:28 AM [facility] Platelets 243 122 - 454 10*3/uL LAB HEMATOLOGY METHOD 12/09/2023 9:28 AM [facility] Blood Venous blood specimen / Unknown Venipuncture / Unknown 12/09/2023 9:10 AM EST 12/09/2023 9:19 AM EST us Rachel Soriano MD LAB BLOOD ORDERABLES Final Result [facility] [address] [place] [address], * (ABNORMAL) Comprehensive metabolic panel (12/09/2023 9:10 AM EST) Sodium 142 133 - 144 mmol/L 12/09/2023 9:50 AM [facility] Potassium 4.9 3.6 - 5.2 mmol/L 12/09/2023 9:50 AM [facility] Comment:Specimen moderately hemolyzed. Results may be falsely elevated. Chloride 113(H) 98 - 107 mmol/L 12/09/2023 9:50 AM [facility] CO2 28 21 - 32 mmol/L 12/09/2023 9:50 AM [facility] Anion Gap 1(L) 5 - 15 mmol/L 12/09/2023 9:50 AM [facility] BUN 16 7 - 18 mg/dL 12/09/2023 9:50 AM [facility] Creatinine 1.00 0.55 - 1.02 mg/dL 12/09/2023 9:50 AM [facility] BUN/Creatinine Ratio 16.00 10.00 - 20.00 ratio 12/09/2023 9:50 AM [facility] Glucose 111(H) 70 - 110 mg/dL 12/09/2023 9:50 AM [facility] Calcium 9.1 8.5 - 10.1 mg/dL 12/09/2023 9:50 AM [facility] AST 38(H) 15 - 37 U/L 12/09/2023 9:50 AM [facility] Comment:Specimen moderately hemolyzed. Results may be falsely elevated. ALT (SGPT) 23 13 - 56 U/L 12/09/2023 9:50 AM [facility] Alkaline Phosphatase 112 45 - 117 U/L 12/09/2023 9:50 AM [facility] Total Protein 6.7 6.4 - 8.4 g/dL 12/09/2023 9:50 AM [facility] Albumin 2.6(L) 3.4 - 5.0 g/dL 12/09/2023 9:50 AM [facility] Globulin, Total 4.1 2.4 - 4.8 g/dL 12/09/2023 9:50 AM [facility] A/G Ratio 0.6 0.6 - 1.6 12/09/2023 9:50 AM [facility] Total Bilirubin 0.6 0.0 - 1.0 mg/dL 12/09/2023 9:50 AM [facility] eGFR (CKD-EPI) 59.3(L) >60.0 - 200.0 mL/min/1.7 3m*2 12/09/2023 9:50 AM [facility] Blood Venous blood specimen / Unknown Venipuncture / Unknown 12/09/2023 9:10 AM EST 12/09/2023 9:19 AM EST us Rachel Soriano MD LAB BLOOD ORDERABLES Final Result [facility] [address] [place] [address], documented in this encounter Visit Diagnoses Diagnosis [...] documented as of this encounter Care Teams Diesel Mechanic Apprentice Relationship Specialty Start Date End Date Italo Camejo NP [address] [place] [address], [address] [place] [address] PCP - General Family Medicine 09/24/23 03/19/25 Lizandro Khan NP [address] [place] [address] PCP - General Family Medicine 03/20/25 07/22/25 Lizandro Khan NP [address] [place] [address] PCP - General Family Medicine 07/23/25 Rachel Pagan MD [address] [place] [phone] Consulting Physician Oncology 11/11/22 Yesy Acuna, ROLDAN [address] [place] [address] Nurse Navigator 11/12/22 03/05/25 Pati Rucker APRN [address] [place] [address] Nurse Practitioner Oncology 12/21/22 Sosa Gardner APRN [address] [place], [place] [address] Nurse Practitioner Oncology 06/24/23 Linda Elizabeth DO [address] [place] [address] Consulting Physician Oncology 03/01/25 Elsa Vazquez [address] [place], [place] [address] Nurse Navigator Oncology 06/05/25 07/19/25 Angie Murray RN [address] [place], [place] [address] Nurse Navigator Oncology 06/26/25 documented as of this encounter
--- OUTSIDE RECORDS SUMMARY | 2025-08-22 02:55 | XMS_ITS | Encounter Summary ---
Author Organization [facility] nter Address [address] [place] [address] Care Team Providers Care Loss Prevention Analyst Name Role Phone Lizandro Khan PROCUREMENT CLERK Primary Care Provider [phone] Rachel Pagan MD Unavailable [phone] Yesy Acuna RN Unavailable [phone] PROCUREMENT CLERK Primary Care Provider [phone] Pati Rucker SPRAY CREW Unavailable [phone] Sosa Gardner SPRAY CREW Unavailable [phone] Italo Camejo PROCUREMENT CLERK Primary Care Provider [phone] Linda Elizabeth DO Unavailable Lizandro Khan PROCUREMENT CLERK Primary Care Provider [phone] Elsa Vazquez Unavailable Unavailable Angie Murray RN Unavailable Unavailab Lizandro Islas PROCUREMENT CLERK Primary Care Provider [phone] Reason for Referral * Imaging (Routine) - Closed Specialty Diagnoses / Procedures Referred By Dorothy t Referred To Contact Radiology Diagnoses Adenocarcinoma Procedures PET/CT bone skull base to mid thigh Gunjan Demarco MD [address] [facility] [place] [address] Phone: tel: fax: Referral ID Status Reason Start Date Expiration Date Visits Re quested Visits Authorized [id number] Closed 11/04/2022 11/04/2023 1 1 * Consultation (Routine) - Closed Specialty Diagnoses / Procedures Referred By Dorothy ceballos Referred To Contact Oncology Diagnoses Adenocarcinoma Procedures [facility] OFFICE/OUTPATIENT [facility] MDM 60-74 MINUTES uGnjan Demarco MD [address] [facility] [place] [address] Phone: tel: fax: Referral ID Status Reason Start Date Expiration Date V isits Requested Visits Authorized [id number] Closed Specialty Services Required 11/04/2022 11/04/2023 1 1 Encounter Details Date Type Department Care Team (Late st Contact Info) Description 11/04/2022 Orders Only [facility] ASSET ACCOUNTANT PRACTICE [address] 8th [place] [address] Doc Bray MA [address] [place] [address] Adenocarcinoma Social History Tobacco Use Types Packs/Day Years [...] suspected to have Coronavirus/COVID-19? No / Unsure 10/30/2022 7:36 PM EST documented as of this encounter [...] ONCOLOGY PRACTICE [address] 10th [place] [address] Rachel Pagan MD [address] [place] [address] 08/28/2025 1:00 PM EDT Office Visit [facility] ORTHOPEDIC PODIATRY PRACTICE [address], 6th [place] [address] Yazan Castro DPM [address] [place] [address] 08/29/2025 10:30 AM EDT Appointment [facility] MEDICAL ONCOLOGY [address], 11th [place] [address] 09/06/2025 1:45 PM EDT Appointment [facility] ULTRASOUND [address], 2nd [place] [address] 09/12/2025 9:30 AM EDT Appointment [facility] MRI BL D [address], [facility] [place] [address] 09/28/2025 9:30 AM EST Office Visit [facility] CARDIOLOGY PRACTICE [address], 1st [place] [address] Ky Jewell MD [address] [facility] [place] [address] 11/05/2025 2:45 PM EST Office Visit [facility] NEUROLOGY PRACTICE [address], 8th [place] [address] Ruddy Mayes MD [facility] [address] [facility] [place] [address] 12/31/2025 11:30 AM EST Office Visit [facility] NEPHROLOGY PRACTICE [address] [place] [address] 01/22/2026 9:00 AM EDT Office Visit [facility] CARDIOLOGY PRACTICE [address], 1st [place] [address] Allyn Toribio NP [address] [place], [place] [id number] Scheduled Referrals Name Type Priority Associated Diagnoses Order Schedule Ambulatory referral to Oncology Outpatient Referral Routine Adenocarcinoma Expected: 11/04/2022 (Approximate), Expires: 05/05/2023 documented as of this encounter Results * XR chest 2 views (12/10/2022 8:54 AM EST) Anatomical Region Laterality Modality Chest Digital Radiogra phy 12/10/2022 8:54 AM EST Impressions 12/10/2022 3:55 PM EST 1. Right basilar mass density which may be cavitary. Correlate clinically. This could be further assessed with chest CT. 2. Right base infiltrate and atelectasis. Report Sign Date: 12/10/2022 3:55 PM, Electronically Signed By: Christiano Valentino MD Narrative 12/10/2022 3:55 PM EST PROCEDURE: XR CHEST 2 VIEWS: 12/10/2022 CLINICAL INFORMATION: Chest x-ray COMPARISON: 11/03/2022 There is a right sided port. There is right basilar airspace opacity. There is a mass density in the right lung base which may be cavitary. Procedure Note Christiano Valentino MD - 12/10/2022 PROCEDURE: XR CHEST 2 VIEWS: 12/10/2022 CLINICAL INFORMATION: Chest x-ray COMPARISON: 11/03/2022 There is a right sided port. There is right basilar airspace opacity. There is a mass density in theright lung base which may be cavitary. IMPRESSION: 1. Right basilar mass density which may be cavitary. Correlate clinically.This could be further assessed with chest CT. 2. Right base infiltrate and atelectasis. Report Sign Date: 12/10/2022 3:55 PM, Electronically Signed By: Rina GOTTI us Gunjan Demarco MD IMG XR PROCEDURES Final Resul t * PET/CT bone skull base to mid thigh (11/13/2022 3:15 PM EST) Anatomical Region Laterality Modality Body Positron Emissio n Tomography (PET) 11/13/2022 3:17 PM EST Impressions 11/13/2022 4:19 PM EST 1. Hypermetabolic mediastinal or hilar lymph node compatible with metastatic adenopathy. 2. Right lower lobe hypermetabolic cavitary mass compatible with malignancy. The solid portion of the mass appears slightly decreased in thickness since the comparison. Report Sign Date: 11/13/2022 4:19 PM, Electronically Signed By: Sukhdeep Johnston MD Narrative 11/13/2022 4:19 PM EST PET/CT BONE SKULL BASE TO MID THIGH: 11/13/2022 3:17 PM CLINICAL INDICATION: adenocarcinoma adenocarcinoma COMPARISON: 01/08/2021. 11/01/2022 TECHNIQUE: Duration of fast prior to injection: Overnight Blood glucose prior to injection: 88 mg/dl Scan Region: Skull base to proximal thighs Injected Dose: 11.3 mCi F-18 FDG Injection site: left hand. Attenuation Correction and CT correlation: Unenhanced Upper metabolic mediastinal and hilar lymph nodes are noted. A subcarinal lymph node demonstrates a maximum SUV of up to 6.2. Right lower lobe cavitary mass demonstrates a maximum SUV of up to 7.6. Otherwise physiologic distribution of FDG. Low-dose attenuation correction CT is without acute finding. Procedure Note Sukhdeep Johnston MD - 11/13/2022 PET/CT BONE SKULL BASE TO MID THIGH: 11/13/2022 3:17 PM CLINICAL INDICATION: adenocarcinoma adenocarcinoma COMPARISON: 01/08/2021. 11/01/2022 TECHNIQUE: Duration of fast prior to injection: Overnight Blood glucose prior to injection: 88 mg/dl Scan Region: Skull base to proximal thighs Injected Dose: 11.3 mCi F-18 FDG Injection site: left hand. Attenuation Correction and CT correlation: Unenhanced Upper metabolic mediastinal and hilar lymph nodes are noted. A subcarinallymph node demonstrates a maximum SUV of up to 6.2. Right lower lobecavitary mass demonstrates a maximum SUV of up to 7.6. Otherwise physiologic distribution of FDG. Low-dose attenuation correction CT is without acute finding. IMPRESSION: 1. Hypermetabolic mediastinal or hilar lymph node compatible withmetastatic adenopathy. 2. Right lower lobe hypermetabolic cavitary mass compatible withmalignancy. The solid portion of the mass appears slightly decreased inthickness since the comparison. Report Sign Date: 11/13/2022 4:19 PM, Electronically Signed By: Sukhdeep Her MD Gunjan Demarco MD IMG CT PROCEDURES Final Resul t documented in this encounter Visit Diagnoses Diagnosis Adenocarcinoma Other malignant neoplasm of unspecified site Adenocarcinoma Other malignant neoplasm of unspecified site Adenocarcinoma Other malignant neoplasm of unspecified site documented in this encounter Additional Health Concerns Infection Onset Date Last Indicated Resolved Time Respiratory Rule-Out 04/20/2024 04/20/2024 024 1:54 PM EDT Respiratory Rule-Out 04/25/2024 04/25/2024 024 4:02 PM EDT Respiratory Rule-Out 01/10/2025 01/10/202526/2 025 12:51 PM EST Respiratory Rule-Out 01/10/2025 [...] documented as of this encounter Care Teams Loss Prevention Analyst Relationship Specialty Start Date End Date Lizandro Khan NP [address] [place] [address] PCP - General 12/09/22 [address] NP [address] [place] [phone] PCP - General Family Medicine 12/10/22 09/23/23 Italo Camejo NP [address] [place] [address], [address] [place] [address] PCP - General Family Medicine 09/24/23 03/19/25 Lizandro Khan NP [address] [place] [address] PCP - General Family Medicine 03/20/25 07/22/25 Lizandro Khan NP [address] [facility] [address] PCP - General Family Medicine 07/23/25 Rachel Pagan MD [address] [place], [place] [address] Consulting Physician Oncology 11/11/22 Yesy Acuna, RN [address] [place], [place] [address] Nurse Navigator 11/12/22 03/05/25 Pati Rucker APRN [address] [place], [place] [address] Nurse Practitioner Oncology 12/21/22 Sosa Gardner APRN [address] [place], [place] [address] Nurse Practitioner Oncology 06/24/23 Linda Elizabeth DO [address] [place], [place] [address] Consulting Physician Oncology 03/01/25 Elsa Vazquez [address] [place] [address] Nurse Navigator Oncology 06/05/25 07/19/25 Angie Murray, ROLDAN [address] [place] [address] Nurse Navigator Oncology 06/26/25 documented as of this encounter
--- OUTSIDE RECORDS SUMMARY | 2025-08-22 02:55 | XMS_ITS | Encounter Summary ---
Author Organization Healthcare Address [address] [place] [address] Care Team Providers Care Trim Mechanic Name Role Phone Italo Camejo VICKY Primary Care Provider [phone] Encounter Details Date Type Department Care Team (Late st Contact Info) Description 02/28/2025 Orders Only External Location [address] [place] [address] Sosa Gardner APRN [address] [place] [address] Social History Tobacco Use Types Packs/Day Years [...] Name Priority Date/Time Associated Diagnosis Comments MR OUTSIDE IMAGES 02/28/2025 10:55 AM EDT documented in this encounter Results * MR transfer of outside films (02/28/2025 10:55 AM EDT) Anatomical Region Laterality Modality Magnetic Resonan ce 02/28/2025 10:5 5 AM EDT us Sosa Gardner APRN IMG MRI PROCEDURES Final Res ult documented in this encounter Visit Diagnoses Not on filedocumented in this encounter Additional Health Concerns Assessment Noted Time A fall risk assessment has been complete d for the patient 12/07/2024 3:30 PM EST A Body Mass Index follow-up plan has been documented for the patient 12/07/2024 2:53 PM EST documented as of this encounter Care Teams Trim Mechanic Relationship Specialty Start Date End Date Italo Camejo APRN [address] [place] [address] PCP - General 11/18/23 documented as of this encounter
--- OUTSIDE RECORDS SUMMARY | 2025-08-22 02:55 | XMS_ITS | Encounter Summary ---
Author Organization Healthcare Address [address] [place] [address] Care Team Providers Care Cbx Operator Name Role Phone Italo Camejo VICKY Primary Care Provider [phone] Encounter Details Date Type Department Care Team (Late st Contact Info) Description 06/12/2025 Orders Only External Location [address] [place] [address] Rachel Pagan MD [address] [place] [address] Social History Tobacco Use Types Packs/Day [...] Date/Time Associated Diagnosis Comments MR OUTSIDE IMAGES 06/12/2025 9:39 PM EDT documented in this encounter Results * MR transfer of outside films (06/12/2025 9:39 PM EDT) Anatomical Region Laterality Modality Magnetic Resonan ce 06/12/2025 9:39 PM EDT Rachel Soriano MD IMG MRI PROCEDURES Final Result documented in this encounter Visit Diagnoses Not on filedocumented in this encounter Additional Health Concerns Assessment Noted Time A fall risk assessment has been complete d for the patient 03/29/2025 12:40 PM EDT A Body Mass Index follow-up plan has been documented for the patient 03/29/2025 1:49 PM EDT documented as of this encounter Care Teams Cbx Operator Relationship Specialty Start Date End Date Italo Camejo APRN [address] [place] [address] PCP - General 11/18/23 documented as of this encounter
--- OUTSIDE RECORDS SUMMARY | 2025-08-22 02:55 | XMS_ITS | Patient Health Record ---
Author Organization [facility] Address [address] [place] [address] Care Team Providers Care Public Area Supervisor Name Role Phone [place] Primary Care Provider Reason For Referral No Information Medications Medication SIG (Take, Route, Frequency, Duration) Notes Start Date End Date Status Flonase Allergy Relief 50 MCG/ACT 1 spray in each nostril Nasally Once a day; Duration: 30 day(s) 01/06/2022 Active Albuterol Sulfate HFA 108 (90 Base) MCG/ACT 1 puff as needed Inhalation every 6 hrs prn wheezing; Duration: 30 days 01/06/2022 Active Problems Problem Type SNOMED Code ICD Code Onset Dates Problem Status W/U Status Risk Notes Problem Allergic rhinitis (76406156) Allergic rhinitis, unspecified (J30.9) Active confirmed Plan Of Treatment No Information Insurance Providers Payer Name Payer Address Payer Phone Subscriber Number Group Number Insured Name Patient Relationship to Insured Coverage Start Date Coverage End Date [facility] Medicare [address] [address] [place] [address] [id number] Jose Sims Self - patient is the insured [place] [id number] Jose Sims Self - patient is the insured
--- OUTSIDE RECORDS SUMMARY | 2025-08-22 02:55 | XMS_ITS | Patient Health Record ---
Author Organization [facility] Address [address] [place] [address] [place] [address] Care Team Providers Care Booking Officer Name Role Phone Brittanie EVANS Primary Care Provider UnavailLizandro Cain Unavailable [phone] Reason For Referral No Information Plan Of Treatment No Information Insurance Providers Payer Name Payer Address Payer Phone Subscriber Number Group Number Insured Name Patient Relationship to Insured Coverage Start Date Coverage End Date [employer] [address] [address] [place] [address] [phone] [id number] Jose Sims Self - patient is the insured
--- OUTSIDE RECORDS SUMMARY | 2025-08-22 02:55 | XMS_ITS | Encounter Summary ---
Author Organization [facility] nter Address [address] [place] [address] Care Team Providers Care Bundler Name Role Phone Rachel Pagan MD Unavailable [phone] Yesy Acuna RN Unavailable [phone] NSH TEACHER Primary Care Provider [phone] Pati Rucker SUPERVISOR FINE GRADING Unavailable [phone] Sosa Gardner SUPERVISOR FINE GRADING Unavailable [phone] Italo Camejo NSH TEACHER Primary Care Provider [phone] Linda Elizabeth DO Unavailable Lizandro Khan NSH TEACHER Primary Care Provider [phone] Elsa Vazquez Unavailable Unavailable Angie Murray RN Unavailable Unavailab Lizandro Islas NSH TEACHER Primary Care Provider [phone] Encounter Details Date Type Department Care Team (Late st Contact Info) Description 05/25/2023 Orders Only [facility] [address], 10th [place] [address] Rachel Pagan MD [address] [place] [address] Social History Tobacco Use Types [...] How often do you attend chur or scientology services? More than 4 times per year [...] suspected to have Coronavirus/COVID-19? No / Unsure 05/25/2023 8:38 AM EDT documented as of this encounter [...] ONCOLOGY PRACTICE [address], 10th [place] [address] Rachel Pagan MD [address] [place] [address] 08/28/2025 1:00 PM EDT Office Visit [facility] ORTHOPEDIC PODIATRY PRACTICE [address], 6th [place] [address] Yazan Castro DPM [address] [place] [address] 08/29/2025 10:30 AM EDT Appointment [facility] MEDICAL ONCOLOGY [address], 11th [place] [address] 09/06/2025 1:45 PM EDT Appointment [facility] ULTRASOUND [address], 2nd [place] [address] 09/12/2025 9:30 AM EDT Appointment [facility] MRI BLDG D [address], [facility] [place] [address] 09/28/2025 9:30 AM EST Office Visit [facility] CARDIOLOGY PRACTICE [address], 1st Floor [place] [facility] [place] [address] Ky Jewell MD [address] [facility] [place] [address] 11/05/2025 2:45 PM EST Office Visit [facility] NEUROLOGY PRACTICE [address], 8th [place] [address] Ruddy Mayes MD [facility] [address] [facility] [place] [address] 12/31/2025 11:30 AM EST Office Visit [facility] NEPHROLOGY PRACTICE [address] [place] [address] 01/22/2026 9:00 AM EDT Office Visit [facility] CARDIOLOGY PRACTICE [address], 1st Floor [place] [facility] [place] [address] Allyn Toribio NP [address] [place] [phone] documented as of this encounter Visit Diagnoses [...] documented as of this encounter Care Teams Bundler Relationship Specialty Start Date End Date Viridiana Plaza NP [address] [place] [phone] PCP - General Family Medicine 12/10/22 09/23/23 Italo Camejo NP [address] [place] [address], [address] [place] [address] PCP - General Family Medicine 09/24/23 03/19/25 Lizandro Khan NP [address] [place] [address] PCP - General Family Medicine 03/20/25 07/22/25 Lizandro Khan NP [address] [place] [address] PCP - General Family Medicine 07/23/25 Rachel Pagan MD [address] [place] [address] Consulting Physician Oncology 11/11/22 Yesy Acuna, RN [address] [place] [address] Nurse Navigator 11/12/22 03/05/25 Pati Rucker APRN [address] [place], [place] [address] Nurse Practitioner Oncology 12/21/22 Sosa Gardner APRN [address] [place] [address] Nurse Practitioner Oncology 06/24/23 Linda Elizabeth DO [address] [place] [address] Consulting Physician Oncology 03/01/25 Elsa Vazquez [address] [place], [place] [address] Nurse Navigator Oncology 06/05/25 07/19/25 Angie Murray, ROLDAN [address] [place], [place] [address] Nurse Navigator Oncology 06/26/25 documented as of this encounter
--- OUTSIDE RECORDS SUMMARY | 2025-08-22 02:55 | XMS_ITS | Encounter Summary ---
Author Organization [facility] Address [address] [place] [address] Care Team Providers Care Tung Nut Grower Name Role Phone Italo Camejo VICKY Primary Care Provider [phone] Encounter Details Date Type Department Care Team (Late st Contact Info) Description 06/22/2025 Telephone [place] [facility] [address], 1st [place] [address] Pepe Cabrera MD [address] [place] [address] Social History Tobacco Use Types Packs/Day Years [...] No 07/09/2025 6:43 PM EDT Edelmira Oconnor , RN 6. Suicidal Behavior (Lifetime) No 6:43 PM EDT Edelmira Oconnor RN documented as of this encounter Miscellaneous Notes * Telephone Encounter - Mira Byrnes - 06/22/2025 4:26 PM EDT Patient Phone Message Reason for Call: [facility] is calling and pt is getting discharged from rehab tomorrow and needs to know if she needs to f/u with Dr Cabrera. Please advise. Best contact number and optimal time of day to reach caller: [phone] Note: Please do not reply to this message. Follow-up communication and further actions as a result of this message need to be communicated with the patient directly, if the patient is not active onMyChart. If the patient is active on MyChart, they will receive notification of the communication/outcome via [employer]. documented in this encounter Plan of Treatment [...] documented as of this encounter Care Teams Tung Nut Grower Relationship Specialty Start Date End Date Italo Camejo APRN [address] [place] [address] PCP - General 11/18/23 documented as of this encounter
--- OUTSIDE RECORDS SUMMARY | 2025-08-22 02:55 | XMS_ITS | Encounter Summary ---
Author Organization [facility] nter Address [address] [place] [address] Care Team Providers Care Equipment Planner Name Role Phone Rachel Pagan MD Unavailable [phone] Yesy Acuna RN Unavailable [phone] POULTRY HUSBANDRY TEACHER Primary Care Provider [phone] Pati Rucker MACHINE WASHER Unavailable [phone] Sosa Gardner MACHINE WASHER Unavailable [phone] Italo Camejo POULTRY HUSBANDRY TEACHER Primary Care Provider [phone] Linda Elizabeth DO Unavailable Lizandro Khan POULTRY HUSBANDRY TEACHER Primary Care Provider [phone] Elsa Vazquez Unavailable Unavailable Angie Murray RN Unavailable Unavailab Lizandro Islas POULTRY HUSBANDRY TEACHER Primary Care Provider [phone] Encounter Details Date Type Department Care Team (Late st Contact Info) Description 12/17/2022 Orders Only [facility] [address], 10th [place] [address] Rachel Pagan MD [address] [place] [address] Non-small cell lung cancer, unspecified laterality Social [...] 11/11/2022 How often do you attend [facility] or shinto services? More than 4 times [...] place to sleep or slept in a assisted (including now)? No 11/11/2022 Comments No Sex [...] suspected to have Coronavirus/COVID-19? No / Unsure 12/18/2022 8:25 AM EST documented as of this encounter [...] ONCOLOGY PRACTICE [address], 10th [place] [address] Rachel Pagan MD [address] [place] [address] 08/28/2025 1:00 PM EDT Office Visit [facility] ORTHOPEDIC PODIATRY PRACTICE [address], 6th [place] [address] Yazan Castro DPM [address] [place] [address] 08/29/2025 10:30 AM EDT Appointment [facility] MEDICAL ONCOLOGY [address], 11th [place] [address] 09/06/2025 1:45 PM EDT Appointment [facility] ULTRASOUND [address], 2nd [place] [address] 09/12/2025 9:30 AM EDT Appointment [facility] MRI BLDG D [address], [facility] [place] [phone] 09/28/2025 9:30 AM EST Office Visit [facility] CARDIOLOGY PRACTICE [address], 1st Floor [place] [phone] Ky Jewell MD [facility] [address] [facility] [place] [address] 11/05/2025 2:45 PM EST Office Visit [facility] NEUROLOGY PRACTICE [address], 8th [place] [address] Ruddy Mayes MD [facility] [address] [facility] [place] [address] 12/31/2025 11:30 AM EST Office Visit [facility] NEPHROLOGY PRACTICE [address] [place] [address] 01/22/2026 9:00 AM EDT Office Visit [facility] CARDIOLOGY PRACTICE [address], 1st [place] [address] Allyn Toribio, GRAHAM [address] [place] [address] documented as of this encounter Results * (ABNORMAL) Comprehensive metabolic panel (12/18/2022 8:29 AM EST) Sodium 139 133 - 144 mmol/L 12/18/2022 9:12 AM EST [facility] Potassium 3.8 3.6 - 5.2 mmol/L 12/18/2022 9:12 AM [facility] Comment:Specimen slightly he molyzed. Results may be falsely elevated. Chloride 110(H) 98 - 107 mmol/L 12/18/2022 9:12 AM EST [facility] CO2 24 21 - 32 mmol/L 12/18/2022 9:12 AM [facility] Anion Gap 5 5 - 15 mmol/L 12/18/2022 9:12 AM [facility] BUN 19(H) 7 - 18 mg/dL 12/18/2022 9:12 AM [facility] Creatinine 1.20(H) 0.55 - 1.02 mg/dL 12/18/2022 9:12 AM [facility] BUN/Creatinine Ratio 15.83 10.00 - 20.00 ratio 12/18/2022 9:12 AM [facility] Glucose 145(H) 70 - 110 mg/dL 12/18/2022 9:12 AM [facility] Calcium 9.2 8.5 - 10.1 mg/dL 12/18/2022 9:12 AM [facility] AST 14(L) 15 - 37 U/L 12/18/2022 9:12 AM [facility] Comment:Specimen slightly he molyzed. Results may be falsely elevated. ALT (SGPT) 17 13 - 56 U/L 12/18/2022 9:12 AM [facility] Alkaline Phosphatase 108 45 - 117 U/L 12/18/2022 9:12 AM [facility] Total Protein 6.5 6.4 - 8.4 g/dL 12/18/2022 9:12 AM [facility] Albumin 3.0(L) 3.4 - 5.0 g/dL 12/18/2022 9:12 AM [facility] Globulin, Total 3.5 2.4 - 4.8 g/dL 12/18/2022 9:12 AM [facility] A/G Ratio <1.0 0.6 - 1.6 12/18/2022 9:12 AM [facility] Total Bilirubin 0.4 0.0 - 1.0 mg/dL 12/18/2022 9:12 AM [facility] eGFR (CKD-EPI) 47.9(L) >60.0 - 200.0 mL/min/1.7 3m*2 12/18/2022 9:12 AM [facility] Blood Venous blood specimen / Unknown Existing Catheter / Unknown 12/18/2022 8:29 AM EST 12/18/2022 8:42 AM EST Rachel Soriano MD LAB BLOOD ORDERABLES Final Result [facility] [address] [place] [address], * CBC auto differential (12/18/2022 8:29 AM EST) Auto WBC 7.4 3.0 - 11.3 10*3/uL LAB HEMATOLOGY METHOD 12/18/2022 8:50 AM [facility] RBC 4.36 3.45 - 5.40 10*6/uL LAB HEMATOLOGY METHOD 12/18/2022 8:50 AM [facility] Hemoglobin 13.1 10.0 - 16.0 g/dL LAB HEMATOLOGY METHOD 12/18/2022 8:50 AM [facility] Hematocrit 39.9 29.9 - 45.5 % LAB HEMATOLOGY METHOD 12/18/2022 8:50 AM [facility] MCV 91.5 78.2 - 101.8 fL LAB HEMATOLOGY METHOD 12/18/2022 8:50 AM [facility] MCH 30.1 26.4 - 33.3 pg LAB HEMATOLOGY METHOD 12/18/2022 8:50 AM [facility] MCHC 32.9 32.5 - 35.3 g/dL LAB HEMATOLOGY METHOD 12/18/2022 8:50 AM [facility] RDW 14.3 10.1 - 16.2 % LAB HEMATOLOGY METHOD 12/18/2022 8:50 AM [facility] MPV 8.4 6.4 - 10.4 fL LAB HEMATOLOGY METHOD 12/18/2022 8:50 AM [facility] Neutrophils % 65 43 - 83 % LAB HEMATOLOGY METHOD 12/18/2022 8:50 AM [facility] Lymphocytes % 24 10 - 42 % LAB HEMATOLOGY METHOD 12/18/2022 8:50 AM [facility] Monocytes % 7 1 - 14 % LAB HEMATOLOGY METHOD 12/18/2022 8:50 AM [facility] Eosinophils % 3 0 - 11 % LAB HEMATOLOGY METHOD 12/18/2022 8:50 AM [facility] Basophils % 1 0 - 2 % LAB HEMATOLOGY METHOD 12/18/2022 8:50 AM [facility] Neutrophils Absolute 4.80 3.40 - 7.00 10*3/uL LAB HEMATOLOGY METHOD 12/18/2022 8:50 AM [facility] Lymphocytes Absolute 1.80 0.40 - 3.90 10*3/uL LAB HEMATOLOGY METHOD 12/18/2022 8:50 AM [facility] Monocytes Absolute 0.50 0.20 - 0.60 10*3/uL LAB HEMATOLOGY METHOD 12/18/2022 8:50 AM [facility] Eosinophils Absolute 0.20 0.00 - 0.90 10*3/uL LAB HEMATOLOGY METHOD 12/18/2022 8:50 AM [facility] Basophils Absolute 0.10 0.00 - 0.20 10*3/uL LAB HEMATOLOGY METHOD 12/18/2022 8:50 AM [facility] Platelets 238 122 - 454 10*3/uL LAB HEMATOLOGY METHOD 12/18/2022 8:50 AM [facility] Blood Venous blood specimen / Unknown Existing Catheter / Unknown 12/18/2022 8:29 AM EST 12/18/2022 8:41 AM EST Rachel Soriano MD LAB BLOOD ORDERABLES Final Result [facility] [address] [place] [address], documented in this encounter Visit Diagnoses Diagnosis [...] already noted to be in contact isolation. iTla Dia 05/21/25 8:47 AM Readmitted 06/12/25. Patient already noted to be in contact isolation. Tila Dia 06/12/25 1:24 PM 05/15/2025 05/15/2025 06/14/2025 7:28 PM E DT documented as of this encounter Care Teams Equipment Planner Relationship Specialty Start Date End Date Viridiana Plaza NP [address] [place] [phone] PCP - General Family Medicine 12/10/22 09/23/23 Italo Camejo NP [address] [facility], [address] [place] [address] PCP - General Family Medicine 09/24/23 03/19/25 Lizandro Khan NP [address] [place] [address] PCP - General Family Medicine 03/20/25 07/22/25 Lizandro Khan NP [address] [place] [address] PCP - General Family Medicine 07/23/25 Rachel Pagan MD [address] [place], [place] [address] Consulting Physician Oncology 11/11/22 Yesy Acuna RN [address] [place], [place] [address] Nurse Navigator 11/12/22 03/05/25 Pati Rucker APRN [address] [place], [place] [address] Nurse Practitioner Oncology 12/21/22 Sosa Gardner APRN [address] [place], [place] [phone] Nurse Practitioner Oncology 06/24/23 Linda Elizabeth DO [address] [place], [place] [address] Consulting Physician Oncology 03/01/25 Elsa Vazquez [address] [place] [address] Nurse Navigator Oncology 06/05/25 07/19/25 Angie Murray RN [address] [place] [address] Nurse Navigator Oncology 06/26/25 documented as of this encounter
--- OUTSIDE RECORDS SUMMARY | 2025-08-22 02:55 | XMS_ITS | Encounter Summary ---
Author Organization [facility] nter Address [address] [place] [address] Care Team Providers Care Sewing Machine Repairer Name Role Phone Rachel Pagan MD Unavailable Yesy Acuna RN Unavailable [phone] Pati Rucker HOME HEALTH PROVIDER Unavailable [phone] Sosa Gardner HOME HEALTH PROVIDER Unavailable [phone] Italo Camejo DESK REPORTER Primary Care Provider [phone] Linda Elizabeth DO Unavailable Lizandro Khan DESK REPORTER Primary Care Provider Elsa Vazquez Unavailable Unavailable Angie Murray RN Unavailable Unavailab Lizandro Islas DESK REPORTER Primary Care Provider [phone] Encounter Details Date Type Department Care Team (Late st Contact Info) Description 01/25/2025 Orders Only [facility] MEDICAL ONCOLOGY [address], 11th [place] [address] Generic Social History Tobacco Use [...] In the past 12 months has e [employer], [employer], oil, or water [employer] threatened to shut off services in your [...] How often do you attend chur or mosque services? More than 4 times per year 11/11/2022 Do you belong to any clubs o r organizations such as druze groups, unions, fraternal or athletic groups, or [...] in a prison (including now)? No 11/11/2022 Comments No Sex [...] ONCOLOGY PRACTICE [address], 10th [place] [address] Rachel Pagan MD [address] [place] [address] 08/28/2025 1:00 PM EDT Office Visit [facility] ORTHOPEDIC PODIATRY PRACTICE [address], 6th [place] [address] Yazan Castro DPM [address] [place] [address] 08/29/2025 10:30 AM EDT Appointment [facility] MEDICAL ONCOLOGY [address], 11th [place] [address] 09/06/2025 1:45 PM EDT Appointment [facility] ULTRASOUND [address], 2nd [place] [address] 09/12/2025 9:30 AM EDT Appointment [facility] MRI BLDG D [address], [place] [address] 09/28/2025 9:30 AM EST Office Visit [facility] CARDIOLOGY PRACTICE [address], 1st [place] [address] Ky Jewell MD [address] [place] [address] 11/05/2025 2:45 PM EST Office Visit [facility] NEUROLOGY PRACTICE [address], 8th [place] [address] Ruddy Mayes MD [facility] [place] [address] 12/31/2025 11:30 AM EST Office Visit [facility] NEPHROLOGY PRACTICE [address] [place] [phone] 01/22/2026 9:00 AM EDT Office Visit [facility] CARDIOLOGY PRACTICE [address], 1st Floor [place] [phone] Allyn Toribio NP [address] [place] [phone] documented as of this encounter Visit Diagnoses [...] documented as of this encounter Care Teams Sewing Machine Repairer Relationship Specialty Start Date End Date Italo Camejo NP [address] [facility], [address] [place] [address] PCP - General Family Medicine 09/24/23 03/19/25 Lizandro Khan NP [address] [place] [address] PCP - General Family Medicine 03/20/25 07/22/25 Lizandro Khan NP [address] [place] [address] PCP - General Family Medicine 07/23/25 Rachel Pagan MD [address] [place] [address] Consulting Physician Oncology 11/11/22 Yesy Acuna, ROLDAN [address] [place] [address] Nurse Navigator 11/12/22 03/05/25 Pati Rucker APRN [address] [place] [address] Nurse Practitioner Oncology 12/21/22 Sosa Gardner APRN [address] [place] [address] Nurse Practitioner Oncology 06/24/23 Linda Elizabeth DO [address] [place] [address] Consulting Physician Oncology 03/01/25 Elsa Vaz[address] [place] [address] Nurse Navigator Oncology 06/05/25 07/19/25 Angie Murray, RN [address] [place] [address] Nurse Navigator Oncology 06/26/25 documented as of this encounter
--- OUTSIDE RECORDS SUMMARY | 2025-08-22 02:55 | XMS_ITS | Encounter Summary ---
Author Organization [facility] Address [address] [place] [address] Care Team Providers Care Mucking Machine Operator Name Role Phone BashirItalo Alyssa PERRY Primary Care Provider [phone] Reason for Referral * Imaging (Routine) - Pending Review Specialty Diagnoses / Procedures Referred By Dorothy t Referred To Contact Radiology Diagnoses Brain mass Procedures MR Head w and wo IV Contrast Pepe Cabrera MD [address] [address] Phone: tel: fax: Referral ID Status Reason Start Date Expiration Date V isits Requested Visits Authorized [id number] Pending Review 06/25/2025 12/25/2026 1 1 Encounter Details Date Type Department Care Team (Late st Contact Info) Description 06/25/2025 Orders Only [place] [facility] [address], 1st [place] [address] Pepe Cabrera MD [address] [facility] [address] [place] [address] Brain mass (Primary Dx) Social [...] as of this encounter Plan of Treatment Scheduled Orders Name Type Priority Associated Diagnoses Orde r Schedule MR Head w and wo IV Contrast Imaging Routine Brain mass Expected: 08/09/2025 (Approximate), Expires: 12/27/2026 documented as of this encounter Visit Diagnoses Diagnosis Brain mass- Primary Unspecified condition of brain documented in this encounter Additional Health Concerns Assessment Noted Time A fall risk assessment has been complete d for the patient 03/29/2025 12:40 PM EDT A Body Mass Index follow-up plan has been documented for the patient 03/29/2025 1:49 PM EDT documented as of this encounter Care Teams Mucking Machine Operator Relationship Specialty Start Date End Date Italo Camejo APRN [address] [place] [address] PCP - General 11/18/23 documented as of this encounter
--- OUTSIDE RECORDS SUMMARY | 2025-08-22 02:56 | XMS_ITS | Encounter Summary ---
Author Organization [facility] nter Address [address] [place] [address] Care Team Providers Care Human Resources Technician Name Role Phone Rachel Pagan MD Unavailable [phone] Yesy Acuna RN Unavailable [phone] DRUM PRINTER Primary Care Provider [phone] Pati Rucker HORSE STUD MANAGER Unavailable [phone] Sosa Gardner HORSE STUD MANAGER Unavailable [phone] Italo Camejo DRUM PRINTER Primary Care Provider [phone] Linda Elizabeth DO Unavailable Lizandro Khan DRUM PRINTER Primary Care Provider [phone] Elsa Vazquez Unavailable Unavailable Angie Murray RN Unavailable Unavailab Lizandro Islas DRUM PRINTER Primary Care Provider [phone] Encounter Details Date Type Department Care Team (Late st Contact Info) Description 06/15/2023 Telephone [facility] GASTROENTEROLOGY PRACTICE [address], 2nd [place] [address] Damian Riley DO [address] [place] [address] Social History Tobacco Use Types [...] week 11/11/2022 How often do you attend [facility] or zoroastrian services? More than 4 times [...] a skilled nursing (including now)? No 11/11/2022 Comments No Sex [...] suspected to have Coronavirus/COVID-19? No / Unsure 06/11/2023 8:41 AM EDT documented as of this encounter [...] ONCOLOGY PRACTICE [address] 10th [place] [address] Rachel Pagan MD [address] [place] [address] 08/28/2025 1:00 PM EDT Office Visit [facility] ORTHOPEDIC PODIATRY PRACTICE [address], 6th [place] [address] Yazan Castro DPM [address] [place] [address] 08/29/2025 10:30 AM EDT Appointment [facility] MEDICAL ONCOLOGY [address], 11th [place] [address] 09/06/2025 1:45 PM EDT Appointment [facility] ULTRASOUND [address], 2nd [place] [address] 09/12/2025 9:30 AM EDT Appointment [facility] MRI BLDG D [address], [facility] [place] [address] 09/28/2025 9:30 AM EST Office Visit [facility] CARDIOLOGY PRACTICE [address], 1st Floor [facility] [place] [address] Ky Jewell MD [address] [facility] [place] [address] 11/05/2025 2:45 PM EST Office Visit [facility] NEUROLOGY PRACTICE [address], 8th [place] [address] Ruddy Mayes MD [facility] [address] [facility] [place] [address] 12/31/2025 11:30 AM EST Office Visit [facility] NEPHROLOGY PRACTICE [address] [phone] 01/22/2026 9:00 AM EDT Office Visit [facility] CARDIOLOGY PRACTICE [address], 1st Floor [facility] [place] [address] Allyn Toribio NP [address] [place] [phone] documented as of this encounter Visit Diagnoses [...] documented as of this encounter Care Teams Human Resources Technician Relationship Specialty Start Date End Date Viridiana Plaza NP [address] [place] [phone] PCP - General Family Medicine 12/10/22 09/23/23 Italo Camejo NP [address] [place] [address], [address] [place] [address] PCP - General Family Medicine 09/24/23 03/19/25 Lizandro Khan NP [address] [place] [address] PCP - General Family Medicine 03/20/25 07/22/25 Lizandro Khan NP [address] [place] [address] PCP - General Family Medicine 07/23/25 Rachel Pagan MD [address] [place] [phone] Consulting Physician Oncology 11/11/22 Yesy Acuna, ROLDAN [address] [place] [address] Nurse Navigator 11/12/22 03/05/25 Pati Rucker APRN [address] [place] [address] Nurse Practitioner Oncology 12/21/22 Soas Gardner APRN [address] [place] [address] Nurse Practitioner Oncology 06/24/23 Linda Elizabeth DO [address] [place] [address] Consulting Physician Oncology 03/01/25 Elsa Vazquez [address] [place], [place] [address] Nurse Navigator Oncology 06/05/25 07/19/25 Angie Murray, ROLDAN [address] [place] [address] Nurse Navigator Oncology 06/26/25 documented as of this encounter
--- OUTSIDE RECORDS SUMMARY | 2025-08-22 02:56 | XMS_ITS | Encounter Summary ---
Author Organization [facility] nter Address [address] [place] [address] Care Team Providers Care Spool Sander Name Role Phone Rachel Pagan MD Unavailable [phone] Pati Rucker FISH FARM LABORER Unavailable [phone] Sosa Gardner FISH FARM LABORER Unavailable [phone] Linda Elizabeth DO Unavailable Lizandro Khan BOILER SERVICE TECHNICIAN Primary Care Provider [phone] Elsa Vazquez Unavailable Unavailable Angie Murray RN Unavailable Unavailab Lizandro Islas BOILER SERVICE TECHNICIAN Primary Care Provider [phone] Encounter Details Date Type Department Care Team (Late st Contact Info) Description 03/29/2025 Telephone [facility] [address], 1st [place] [address] Debbie Flannery, ROLDAN [address] [place] [address] Social History Tobacco Use Types Packs/Day Years Used Date Smoking Tobacco: Every Day Cigarettes 0.5 30.8 Started: 2024 Passive Smoke Exposure: Current Smokeless Tobacco: Never Comments:Offered patient an appointment at the health department for smoking cessation classes. Patient declined. Alcohol Use Standard Drinks/Week Comments Never 0 (1 standard drink = 0.6 oz pur e alcohol) [facility] Utilities Answer Date Recorded In the past 12 months has [employer] gas, oil, or water company threatened to shut off services in your home? No 03/31/2025 Humiliation, Afraid, Rape, and Kick questionnair e [...] week 11/11/2022 How often do you attend [facility] or denominational services? More than 4 times per year 11/11/2022 Do you belong to any clubs o r organizations such as mosque groups, unions, fraternal or athletic groups, or school groups? Yes 11/11/2022 How often do you attend meet ings of the clubs or organizations you belong to? More than 4 times per year 11/11/2022 Are you , , di vorced, , never , or living with a partner? 11/11/2022 AUDIT-C Answer Date Recorded Q1: How often do you have a drink containing alcohol? Never 03/31/2025 Q2: How many drinks containi ng alcohol do you have on a typical day when you are drinking? Patient does not drink Q3: How often do you have si x or more drinks on one occasion? Never 03/31/2025 Overall Financial Resource Strain (CARDIA) Answe r [...] the money to buy more. Never true 03/31/20 25 Within the past 12 months, t he food you bought just didn't last and you didn't have money to get more. Never true 03/31/2025 PRAPARE - Transportation Answer Date Re corded [...] a nursing home (including now)? No 11/11/2022 Comments No Sex and Gender Information Value Date Recorded Sex Assigned at Female 01/21/2022 1:00 PM EST Legal Sex Female 1:00 PM EST Gender Identity Female 01/21/2022 1:00 PM EST Sexual Orientation Straight 01/21/2022 1: 00 PM EST documented as of this encounter Functional Status * AUDIT Alcohol Screening Question Answer Date of Assessment Author AUDIT-C Score 0 03/31/2025 2:06 AM Toyin Ríos, RN Q4: How often during the last year have you found that you were not able to stop drinking once you had started? 0 03/31/2025 2:06 AM Toyin Tee , RN Q5: How often during the last year have you failed to do what was normally expected from you because of drinking? 0 03/31/2025 2:06 AM Toyin Tee , RN Q8: How often during the last year have you been unable to remember what happened the night before because you had been drinking? 0 03/31/2025 2:06 AM Toyin Tee RN Q6: How often during the last year have you needed an alcoholic drink first thing in the morning to get yourself going after a night of heavy drinking? 0 03/31/2025 2:06 AM Toyin Tee RN Q7: How often during the last year have you had a feeling of guilt or remorse after drinking? 0 03/31/2025 2:06 AM Juliana Tee, RN Q9: Have you or someone else been injured as a result of your drinking? 0 03/31/2025 2:06 AM Keerthi Tee RN Q10: Has a relative, friend, doctor, or another health professional expressed concern about your drinking or suggested you cut down? 0 03/31/2025 2:06 AM Toyin Tee RN AUDIT Total Score 0 03/31/2025 2:06 AM Toyin Tee, RN Q1: How often do you have a drink containing alcohol? Never 03/31/2025 2:06 AM Toyin Tee RN Q2: How many drinks containing alcohol do you have on a typical day when you are drinking? Patient does not drink 03/31/2025 2:06 AM Toyin Tee RN Q3: How often do you have six or more drinks on one occasion? Never 03/31/2025 2:06 AM Toyin Tee RN * Are you deaf or do you [...] Answer Date of Assessment Author Patient Health Questionnaire -2 Score 0 03/31/2025 2:02 AM Toyin Tee RN * Question Answer Date of Assessment Author Little interest or pleasure in doing things Not at all 03/31/2025 2:02 AM Toyin Tee RN Feeling down, depressed, or hopeless Not at all 03/31/2025 2:02 AM Toyin Tee RN documented as of this encounter Mental Status * Because of a physical, mental, or emotional condition, do you have serious difficulty concentrating, remembering, or making decisions? (5 years old or older) Answer Entry Date Author No 10/27/2022 3:29 PM Demetri Moser RN documented in this encounter Miscellaneous Notes * Telephone Encounter - Debbie Flannery RN - 03/29/2025 5:23 PM EDT Pt and daughter Em called back and states that pt has been having difficulty swallowing solid foods. Does occasional Ensure when available. O2 sat today is 99% on 2L. Pt is currently out of town visiting daughter and for medical appointments in [facility] today. Does complain with hematuria x 1week. Has seen PCP and is currently being treated for uti with Bactrim. Pt states that hematuria has not improved and is still leaving bowl full of blood . RN called and spoke with PCP Lizandro Khan NP and was told that pt will probably need a ct to make sure that there isn't something in the bladder . PCP scheduled pt for 1115 in the morning. Pt told Rn that she can not make the 1115 appointment in the morning because she is currently in [place] and will not be leaving there until 10am in the morning. Pt daughter states that pt could probably see PCP around 2-3pm. RN called PCP backand was given appointment for 3. RN called pt daughter back and gave appointment time to both pt and daughter and encouraged pt to keep this appointment or go to ER. RN expressed concern that something else may be wrong with the bladder besides an UTI and pt may need a ct scan.Pt and daughter verbalized understanding. documented in this encounter Plan of Treatment Upcoming Encounters Date Type Department Care Team (Late st Contact Info) Description 08/27/2025 8:45 AM EDT Office Visit [facility] [address] 10th [place] [address] Rachel Pagan MD [address] [place] [address] 08/28/2025 1:00 PM EDT Office Visit [facility] ORTHOPEDIC PODIATRY PRACTICE [address], 6th [place] [address] Yazan Castro DPM [address] [place] [address] 08/29/2025 10:30 AM EDT Appointment [facility] MEDICAL ONCOLOGY [address], 11th [place] [address] 09/06/2025 1:45 PM EDT Appointment [facility] ULTRASOUND [address], 2nd [place] [address] 09/12/2025 9:30 AM EDT Appointment [facility] MRI BLDG D [address], [facility] [place] [address] 09/28/2025 9:30 AM EST Office Visit [facility] CARDIOLOG[facility] [address], 1st [place] [address] Ky Jewell MD [address] [place] [address] 11/05/2025 2:45 PM EST Office Visit [facility] NEUROLOGY PRACTICE [address], 8th Floor [place] [phone] Ruddy Mayes MD [address] [place] [address] 12/31/2025 11:30 AM EST Office Visit [facility] NEPHROLOGY PRACTICE [address] [phone] 01/22/2026 9:00 AM EDT Office Visit [facility] CARDIOLOGY PRACTICE [address], 1st [place] [address] Allyn Toribio NP [address] [place] [phone] documented as of this encounter Visit Diagnoses [...] already noted to be in contact isolation. Tilajames Dia 06/12/25 1:24 PM 05/15/2025 05/15/2025 06/14/2025 7:28 PM E DT Assessment Noted Time PHQ-9 Depression Total Score: 0 03/20/20 9:00 AM EDT documented as of this encounter Care Teams Spool Sander Relationship Specialty Start Date End Date Lizandro Khan NP [address] [place] [address] PCP - General Family Medicine 03/20/25 07/22/25 Lizandro Khan NP [address] [place] [address] PCP - General Family Medicine 07/23/25 Rachel Pagan MD [address] [place] [address] Consulting Physician Oncology 11/11/22 Pati Rucker APRN [address] [place] [address] Nurse Practitioner Oncology 12/21/22 Sosa Gardner APRN [address] [facility] [place] [address] Nurse Practitioner Oncology 06/24/23 Linda Elizabeth DO [address] [place] [address] Consulting Physician Oncology 03/01/25 Elsa Vazquez [address] [place], [place] [address] Nurse Navigator Oncology 06/05/25 07/19/25 Angie Murray, ROLDAN [address] [place], [place] [address] Nurse Navigator Oncology 06/26/25 documented as of this encounter
--- OUTSIDE RECORDS SUMMARY | 2025-08-22 02:56 | XMS_ITS | Encounter Summary ---
Author Organization [facility] nter Address [address] [place] [address] Care Team Providers Care Sampler Radioactive Waste Name Role Phone Rachel Pagan MD Unavailable [phone] Yesy Acuna RN Unavailable [phone] PRODUCTION CREW SUPERVISOR Primary Care Provider [phone] Pati Rucker QUALITY COMPLIANCE COORDINATOR Unavailable [phone] Sosa Gardner QUALITY COMPLIANCE COORDINATOR Unavailable [phone] Italo Camejo PRODUCTION CREW SUPERVISOR Primary Care Provider [phone] Linda Elizabeth DO Unavailable Lizandro Khan PRODUCTION CREW SUPERVISOR Primary Care Provider [phone] Elsa Vazquez Unavailable Unavailable Angie Murray RN Unavailable Unavailab Lizandro Islas PRODUCTION CREW SUPERVISOR Primary Care Provider [phone] Encounter Details Date Type Department Care Team (Late st Contact Info) Description 09/23/2023 Orders Only [facility] [address], 10th [place] [address] Rachel Pagan MD [address] [place] [address] Non-small cell cancer of right [...] you attend [facility] or pentecostal services? More than 4 times [...] in a half-way (including now)? No 11/11/2022 Comments No Sex [...] ONCOLOGY PRACTICE [address], 10th [place] [address] Rachel Pagan MD [address] [place] [address] 08/28/2025 1:00 PM EDT Office Visit [facility] ORTHOPEDIC PODIATRY PRACTICE [address], 6th [place] [address] Yazan Castro DPM [address] [place] [address] 08/29/2025 10:30 AM EDT Appointment [facility] MEDICAL ONCOLOGY [address], 11th [place] [address] 09/06/2025 1:45 PM EDT Appointment [facility] ULTRASOUND [address], 2nd [place] [address] 09/12/2025 9:30 AM EDT Appointment [facility] MRI BLDG D [address], [address] [place] [phone] 09/28/2025 9:30 AM EST Office Visit [facility] [address], [address] [place] [phone] Ky Jewell MD [address] [facility] [place] [phone] 11/05/2025 2:45 PM EST Office Visit [facility]UR[facility] [address], 8th Floor Clinic [place] [phone] Ruddy Mayes MD [facility] [address] [facility] [place] [address] 12/31/2025 11:30 AM EST Office Visit [facility] NEPHROLOGY PRACTICE [address] [place] [address] 01/22/2026 9:00 AM EDT Office Visit [facility] CARDIOLOGY PRACTICE [address], 1st Floor [place] [phone] Allyn Toribio, GRAHAM [address] [place] [address] documented as of this encounter Results * CBC auto differential (09/23/2023 8:37 AM EST) [facility] Auto WBC 8.3 3.0 - 11.3 10*3/uL LAB HEMATOLOGY METHOD 09/23/2023 8:54 AM EST [facility] RBC 4.18 3.45 - 5.40 10*6/uL LAB HEMATOLOGY METHOD 09/23/2023 8:54 AM EST [facility] Hemoglobin 13.8 10.0 - 16.0 g/dL LAB HEMATOLOGY METHOD 09/23/2023 8:54 AM EST [facility] Hematocrit 39.9 29.9 - 45.5 % LAB HEMATOLOGY METHOD 09/23/2023 8:54 AM EST [facility] MCV 95.4 78.2 - 101.8 fL LAB HEMATOLOGY METHOD 09/23/2023 8:54 AM [facility] MCH 33.1 26.4 - 33.3 pg LAB HEMATOLOGY METHOD 09/23/2023 8:54 AM [facility] MCHC 34.7 32.5 - 35.3 g/dL LAB HEMATOLOGY METHOD 09/23/2023 8:54 AM [facility] RDW 14.1 10.1 - 16.2 % LAB HEMATOLOGY METHOD 09/23/2023 8:54 AM [facility] MPV 8.3 6.4 - 10.4 fL LAB HEMATOLOGY METHOD 09/23/2023 8:54 AM [facility] Neutrophils % 66 43 - 83 % LAB HEMATOLOGY METHOD 09/23/2023 8:54 AM [facility] Lymphocytes % 24 10 - 42 % LAB HEMATOLOGY METHOD 09/23/2023 8:54 AM [facility] Monocytes % 6 1 - 14 % LAB HEMATOLOGY METHOD 09/23/2023 8:54 AM [facility] Eosinophils % 3 0 - 11 % LAB HEMATOLOGY METHOD 09/23/2023 8:54 AM [facility] Basophils % 1 0 - 2 % LAB HEMATOLOGY METHOD 09/23/2023 8:54 AM [facility] Neutrophils Absolute 5.50 3.40 - 7.00 10*3/uL LAB HEMATOLOGY METHOD 09/23/2023 8:54 AM [facility] Lymphocytes Absolute 2.00 0.40 - 3.90 10*3/uL LAB HEMATOLOGY METHOD 09/23/2023 8:54 AM [facility] Monocytes Absolute 0.50 0.20 - 0.60 10*3/uL LAB HEMATOLOGY METHOD 09/23/2023 8:54 AM [facility] Eosinophils Absolute 0.30 0.00 - 0.90 10*3/uL LAB HEMATOLOGY METHOD 09/23/2023 8:54 AM [facility] Basophils Absolute 0.10 0.00 - 0.20 10*3/uL LAB HEMATOLOGY METHOD 09/23/2023 8:54 AM [facility] Platelets 232 122 - 454 10*3/uL LAB HEMATOLOGY METHOD 09/23/2023 8:54 AM [facility] Blood Venous blood specimen / Unknown Venipuncture / Unknown 09/23/2023 8:37 AM EST 09/23/2023 8:42 AM EST us Rachel Soriano MD LAB BLOOD ORDERABLES Final Result [facility] [address] [place] [address], * (ABNORMAL) Comprehensive metabolic panel (09/23/2023 8:37 AM EST) Sodium 140 133 - 144 mmol/L 09/23/2023 9:13 AM [facility] Potassium 4.0 3.6 - 5.2 mmol/L 09/23/2023 9:13 AM [facility] Chloride 114(H) 98 - 107 mmol/L 09/23/2023 9:13 AM [facility] CO2 23 21 - 32 mmol/L 09/23/2023 9:13 AM [facility] Anion Gap 3(L) 5 - 15 mmol/L 09/23/2023 9:13 AM [facility] BUN 16 7 - 18 mg/dL 09/23/2023 9:13 AM [facility] Creatinine 1.20(H) 0.55 - 1.02 mg/dL 09/23/2023 9:13 AM [facility] BUN/Creatinine Ratio 13.33 10.00 - 20.00 ratio 09/23/2023 9:13 AM [facility] Glucose 119(H) 70 - 110 mg/dL 09/23/2023 9:13 AM [facility] Calcium 8.7 8.5 - 10.1 mg/dL 09/23/2023 9:13 AM [facility] AST 12(L) 15 - 37 U/L 09/23/2023 9:13 AM [facility] ALT (SGPT) 21 13 - 56 U/L 09/23/2023 9:13 AM [facility] Alkaline Phosphatase 112 45 - 117 U/L 09/23/2023 9:13 AM [facility] Total Protein 6.6 6.4 - 8.4 g/dL 09/23/2023 9:13 AM [facility] Albumin 2.7(L) 3.4 - 5.0 g/dL 09/23/2023 9:13 AM [facility] Globulin, Total 3.9 2.4 - 4.8 g/dL 09/23/2023 9:13 AM [facility] A/G Ratio 0.7 0.6 - 1.6 09/23/2023 9:13 AM [facility] Total Bilirubin 0.5 0.0 - 1.0 mg/dL 09/23/2023 9:13 AM [facility] eGFR (CKD-EPI) 47.9(L) >60.0 - 200.0 mL/min/1.7 3m*2 09/23/2023 9:13 AM [facility] Blood Venous blood specimen / Unknown Venipuncture / Unknown 09/23/2023 8:37 AM EST 09/23/2023 8:42 AM EST us Rachel Soriano MD LAB BLOOD ORDERABLES Final Result Performing Organization Address City/State/[facility] Co de Phone Number [facility] [address] [place] [address], documented in this encounter Visit Diagnoses Diagnosis [...] documented as of this encounter Care Teams Sampler Radioactive Waste Relationship Specialty Start Date End Date Viridiana Plaza NP [address] [place] [address] PCP - General Family Medicine 12/10/22 09/23/23 Italo Camejo NP [address] [facility], [address] [place] [address] PCP - General Family Medicine 09/24/23 03/19/25 Lizandro Khan NP [address] [place] [address] PCP - General Family Medicine 03/20/25 07/22/25 Lizandro Khan NP [address] [place] [address] PCP - General Family Medicine 07/23/25 Rachel Pagan MD [address] [place] [phone] Consulting Physician Oncology 11/11/22 Yesy Acuna, RN [address] [place] [address] Nurse Navigator 11/12/22 03/05/25 Pati Rucker APRN [address] [place] [address] Nurse Practitioner Oncology 12/21/22 Sosa Gardner APRN [address] [place] [address] Nurse Practitioner Oncology 06/24/23 Linda Elizabeth DO [address] [place] [address] Consulting Physician Oncology 03/01/25 Elsa Vazquez [address] [place] [address] Nurse Navigator Oncology 06/05/25 07/19/25 Angie Murray RN [address] [place] [address] Nurse Navigator Oncology 06/26/25 documented as of this encounter
--- OUTSIDE RECORDS SUMMARY | 2025-08-22 02:56 | XMS_ITS | Encounter Summary ---
Author Organization [facility] nter Address [address] [place] [address] Care Team Providers Care Site Leasing Agent Name Role Phone Rachel Pagan MD Unavailable [phone] Yesy Acuna RN Unavailable [phone] ARTIST CONSULTANT Primary Care Provider [phone] Pati Rucker SPEECH SCIENTIST Unavailable [phone] Sosa Gardner SPEECH SCIENTIST Unavailable [phone] Italo Camejo ARTIST CONSULTANT Primary Care Provider [phone] Linda Elizabeth DO Unavailable Lizandro Khan ARTIST CONSULTANT Primary Care Provider [phone] Elsa Vazquez Unavailable Unavailable Angie Murray RN Unavailable Unavailab Lizandro Islas ARTIST CONSULTANT Primary Care Provider [phone] Encounter Details Date Type Department Care Team (Late st Contact Info) Description 06/07/2023 Orders Only [facility] [address], 10th [place] [address] Rachel Pagan MD [address] [place] [address] Non-small cell cancer of right [...] week 11/11/2022 How often do you attend [facility] or confucianist services? More than 4 times per year [...] ONCOLOGY PRACTICE [address], 10th [place] [address] Rachel Pagan MD [address] [place] [address] 08/28/2025 1:00 PM EDT Office Visit [facility] ORTHOPEDIC PODIATRY PRACTICE [address], 6th [place] [address] Yazan Castro DPM [address] [place] [address] 08/29/2025 10:[address] [facility] MEDICAL ONCOLOGY [address], 11th [place] [address] 09/06/2025 1:[address] [facility] ULTRASOUND [address], 2nd [place] [address] 09/12/2025 9:[address] [facility] MRI BLDG D [address], [facility] [place] [id number] 09/28/2025 9:30 AM EST Office Visit [facility] CARDIOLOGY PRACTICE [address], 1st [place] [address] Ky Jewell MD [address] [facility] [place] [address] 11/05/2025 2:45 PM EST Office Visit [facility] NEUROLOGY PRACTICE [address], 8th [place] [address] Ruddy Mayes MD [facility] [address] [facility] [place] [address] 12/31/2025 11:30 AM EST Office Visit [facility] NEPHROLOGY PRACTICE [address] [id number] 01/22/2026 9:00 AM EDT Office Visit [facility] CARDIOLOGY PRACTICE [address], 1st [place] [address] Allyn Toribio NP [address] [place], [place] [id number] documented as of this encounter Results * Magnesium (06/11/2023 8:46 AM EDT) Magnesium 2.0 1.7 - 2.4 mg/dL 06/11/2023 9:21 AM EDT [facility] Blood Venous blood specimen / Unknown Existing Catheter / Unknown 06/11/2023 8:46 AM EDT 06/11/2023 8:55 AM EDT Rachel Soriano MD LAB BLOOD ORDERABLES Final Result [facility] [address] [place] [address], * (ABNORMAL) Comprehensive metabolic panel (06/11/2023 8:46 AM EDT) Sodium 145(H) 133 - 144 mmol/L 06/11/2023 9:21 AM [facility] Potassium 3.6 3.6 - 5.2 mmol/L 06/11/2023 9:21 AM [facility] Chloride 115(H) 98 - 107 mmol/L 06/11/2023 9:21 AM [facility] CO2 28 21 - 32 mmol/L 06/11/2023 9:21 AM [facility] Anion Gap 2(L) 5 - 15 mmol/L 06/11/2023 9:21 AM [facility] BUN 18 7 - 18 mg/dL 06/11/2023 9:21 AM [facility] Creatinine 1.20(H) 0.55 - 1.02 mg/dL 06/11/2023 9:21 AM [facility] BUN/Creatinine Ratio 15.00 10.00 - 20.00 ratio 06/11/2023 9:21 AM [facility] Glucose 109 70 - 110 mg/dL 06/11/2023 9:21 AM [facility] Calcium 8.2(L) 8.5 - 10.1 mg/dL 06/11/2023 9:21 AM [facility] AST 13(L) 15 - 37 U/L 06/11/2023 9:21 AM [facility] ALT (SGPT) 24 13 - 56 U/L 06/11/2023 9:21 AM [facility] Alkaline Phosphatase 126(H) 45 - 117 U/L 06/11/2023 9:21 AM [facility] Total Protein 6.4 6.4 - 8.4 g/dL 06/11/2023 9:21 AM [facility] Albumin 2.7(L) 3.4 - 5.0 g/dL 06/11/2023 9:21 AM [facility] Globulin, Total 3.7 2.4 - 4.8 g/dL 06/11/2023 9:21 AM [facility] A/G Ratio 0.7 0.6 - 1.6 06/11/2023 9:21 AM [facility] Total Bilirubin 0.3 0.0 - 1.0 mg/dL 06/11/2023 9:21 AM [facility] eGFR (CKD-EPI) 47.9(L) >60.0 - 200.0 mL/min/1.7 3m*2 06/11/2023 9:21 AM [facility] Blood Venous blood specimen / Unknown Existing Catheter / Unknown 06/11/2023 8:46 AM EDT 06/11/2023 8:55 AM EDT Rachel Soriano MD LAB BLOOD ORDERABLES Final Result [facility] [address] [place] [address], * (ABNORMAL) CBC auto differential (06/11/2023 8:46 AM EDT) Auto WBC 5.7 3.0 - 11.3 10*3/uL LAB HEMATOLOGY METHOD 06/11/2023 9:06 AM [facility] RBC 4.24 3.45 - 5.40 10*6/uL LAB HEMATOLOGY METHOD 06/11/2023 9:06 AM [facility] Hemoglobin 13.5 10.0 - 16.0 g/dL LAB HEMATOLOGY METHOD 06/11/2023 9:06 AM [facility] Hematocrit 39.5 29.9 - 45.5 % LAB HEMATOLOGY METHOD 06/11/2023 9:06 AM [facility] MCV 93.3 78.2 - 101.8 fL LAB HEMATOLOGY METHOD 06/11/2023 9:06 AM [facility] MCH 31.8 26.4 - 33.3 pg LAB HEMATOLOGY METHOD 06/11/2023 9:06 AM [facility] MCHC 34.1 32.5 - 35.3 g/dL LAB HEMATOLOGY METHOD 06/11/2023 9:06 AM [facility] RDW 14.0 10.1 - 16.2 % LAB HEMATOLOGY METHOD 06/11/2023 9:06 AM [facility] MPV 8.4 6.4 - 10.4 fL LAB HEMATOLOGY METHOD 06/11/2023 9:06 AM [facility] Neutrophils % 55 43 - 83 % LAB HEMATOLOGY METHOD 06/11/2023 9:06 AM [facility] Lymphocytes % 29 10 - 42 % LAB HEMATOLOGY METHOD 06/11/2023 9:06 AM [facility] Monocytes % 9 1 - 14 % LAB HEMATOLOGY METHOD 06/11/2023 9:06 AM [facility] Eosinophils % 5 0 - 11 % LAB HEMATOLOGY METHOD 06/11/2023 9:06 AM [facility] Basophils % 1 0 - 2 % LAB HEMATOLOGY METHOD 06/11/2023 9:06 AM [facility] Neutrophils Absolute 3.10(L) 3.40 - 7.00 10*3/uL LAB HEMATOLOGY METHOD 06/11/2023 9:06 AM [facility] Lymphocytes Absolute 1.70 0.40 - 3.90 10*3/uL LAB HEMATOLOGY METHOD 06/11/2023 9:06 AM [facility] Monocytes Absolute 0.50 0.20 - 0.60 10*3/uL LAB HEMATOLOGY METHOD 06/11/2023 9:06 AM [facility] Eosinophils Absolute 0.30 0.00 - 0.90 10*3/uL LAB HEMATOLOGY METHOD 06/11/2023 9:06 AM [facility] Basophils Absolute 0.00 0.00 - 0.20 10*3/uL LAB HEMATOLOGY METHOD 06/11/2023 9:06 AM [facility] Platelets 196 122 - 454 10*3/uL LAB HEMATOLOGY METHOD 06/11/2023 9:06 AM [facility] Blood Venous blood specimen / Unknown Existing Catheter / Unknown 06/11/2023 8:46 AM EDT 06/11/2023 8:55 AM EDT us Rachel Soriano MD LAB BLOOD ORDERABLES Final Result [facility] [address] [place] [address], documented in this encounter Visit Diagnoses Diagnosis [...] documented as of this encounter Care Teams Site Leasing Agent Relationship Specialty Start Date End Date Viridiana Plaza NP [address] [place] [address] PCP - General Family Medicine 12/10/22 09/23/23 Italo Camjeo NP [address], [address] [place] [address] PCP - General Family Medicine 09/24/23 03/19/25 Lizandro Khan NP [address] [facility] [place] [address] PCP - General Family Medicine 03/20/25 07/22/25 Lizandro Khan NP [address] [place] [address] PCP - General Family Medicine 07/23/25 Rachel Pagan MD [address] [place] [address] Consulting Physician Oncology 11/11/22 Yesy Acuna, ROLDAN [address] [place] [address] Nurse Navigator 11/12/22 03/05/25 Pati Rucker APRN [address] [place] [address] Nurse Practitioner Oncology 12/21/22 Sosa Gardner APRN [address] [place] [address] Nurse Practitioner Oncology 06/24/23 Linda Elizabeth DO [address] [place] [address] Consulting Physician Oncology 03/01/25 Elsa Vazquez [address] [place] [address] Nurse Navigator Oncology 06/05/25 07/19/25 Angie Murray RN [address] [place] [address] Nurse Navigator Oncology 06/26/25 documented as of this encounter
--- OUTSIDE RECORDS SUMMARY | 2025-08-22 02:56 | XMS_ITS | Encounter Summary ---
Author Organization [facility] nter Address [address] [place] [address] Care Team Providers Care Interactive Media Marketing Strategist Name Role Phone Rachel Pagan MD Unavailable [phone] Yesy Acuna RN Unavailable [phone] INSPECTOR PAWNSHOP DETAIL Primary Care Provider [phone] Pati Rucker STRATEGIC INTELLIGENCE OFFICER Unavailable [phone] Sosa Gardner STRATEGIC INTELLIGENCE OFFICER Unavailable [phone] Italo Camejo INSPECTOR PAWNSHOP DETAIL Primary Care Provider [phone] Linda Elizabeth DO Unavailable Lizandro Khan INSPECTOR PAWNSHOP DETAIL Primary Care Provider [phone] Elsa Vazquez Unavailable Unavailable Angie Murray RN Unavailable Unavailab Lizandro Islas INSPECTOR PAWNSHOP DETAIL Primary Care Provider [phone] Encounter Details Date Type Department Care Team (Late st Contact Info) Description 04/29/2023 Orders Only [facility] [address] 10th [place] [address] Rachel Pagan MD [address] [place] [address] Non-small cell cancer of right [...] week 11/11/2022 How often do you attend [facility] or faith services? More than 4 times per year 11/11/2022 Do you belong to any clubs o r organizations such as orthodox groups, unions, fraternal or athletic groups, or [...] a care home (including now)? No 11/11/2022 Comments No [...] suspected to have Coronavirus/COVID-19? No / Unsure 04/22/2023 8:01 AM EDT documented as of this encounter Functional Status * Are you deaf or do you have serious difficulty hearing? Answer Date of Assessment Author No 10/27/2022 3:29 PM EST Demetri Mota RN * Are you blind or do you have serious difficulty seeing, even when wearing glasses? Answer Date of Assessment Author No 10/27/2022 3:29 PM Tiffanie Moser RN * Do you have serious [...] ONCOLOGY PRACTICE [address], 10th [place] [address] Rachel Pagan MD [address] [place] [address] 08/28/2025 1:00 PM EDT Office Visit [facility] ORTHOPEDIC PODIATRY PRACTICE [address], 6th [place] [address] Yazan Castro DPM [address] [place] [address] 08/29/2025 10:30 AM EDT Appointment [facility] MEDICAL ONCOLOGY [address], 11th [place] [address] 09/06/2025 1:45 PM EDT Appointment [facility] ULTRASOUND [address], 2nd [place] [address] 09/12/2025 9:30 AM EDT Appointment [facility] MRI BLDG D [address], [facility] [place] [address] 09/28/2025 9:30 AM EST Office Visit [facility] CARDIOLOGY PRACTICE [address], 1st [place] [address] Ky Jewell MD [address] [facility] [place] [address] 11/05/2025 2:45 PM EST Office Visit [facility] NEUROLOGY PRACTICE [address], 8th [place] [address] Ruddy Mayes MD [facility] [address] [facility] [place] [address] 12/31/2025 11:30 AM EST Office Visit [facility] NEPHROLOGY PRACTICE [address] [place] [address] 01/22/2026 9:00 AM EDT Office Visit [facility] CARDIOLOGY PRACTICE [address], [address]st [facility] [place] [address] Allyn Toribio NP [address] [id number] documented as of this encounter Visit Diagnoses [...] documented as of this encounter Care Teams Interactive Media Marketing Strategist Relationship Specialty Start Date End Date Viridiana Plaza NP [address] [place] [address] PCP - General Family Medicine 12/10/22 09/23/23 Italo Camejo NP [address] [place] [address], [address] [place] [address] PCP - General Family Medicine 09/24/23 03/19/25 Lizandro Khan NP [address] [place] [address] PCP - General Family Medicine 03/20/25 07/22/25 Lizandro Khan NP [address] [place] [address] PCP - General Family Medicine 07/23/25 Rachel Pagan MD [address] [place] [phone] Consulting Physician Oncology 11/11/22 Yesy Acuna RN [address] [place] [address] Nurse Navigator 11/12/22 03/05/25 Pati Rucker APRN [address] [place] [address] Nurse Practitioner Oncology 12/21/22 Sosa Gardner APRN [address] [place] [address] Nurse Practitioner Oncology 06/24/23 Linda Elizabeth DO [address] [place] [address] Consulting Physician Oncology 03/01/25 Elsa Vazquez [address] [place], [place] [address] Nurse Navigator Oncology 06/05/25 07/19/25 nAgie Murray RN [address] [place] [address] Nurse Navigator Oncology 06/26/25 documented as of this encounter
--- OUTSIDE RECORDS SUMMARY | 2025-08-22 02:56 | XMS_ITS | Encounter Summary ---
Author Organization [facility] nter Address [address] [place] [address] Care Team Providers Care Physician Asst Name Role Phone Rachel Pagan MD Unavailable [phone] Pati Rucker COMPUTER APPLICATION DEVELOPER Unavailable [phone] Sosa Gardner COMPUTER APPLICATION DEVELOPER Unavailable [phone] Italo Camejo LONG TERM CARE SOCIAL WORKER Primary Care Provider [phone] Linda Elizabeth DO Unavailable Lizandro Khan LONG TERM CARE SOCIAL WORKER Primary Care Provider Elsa Vazquez Unavailable Unavailable Angie Murray RN Unavailable Unavailab Lizandro Islas LONG TERM CARE SOCIAL WORKER Primary Care Provider [phone] Encounter Details Date Type Department Care Team (Late st Contact Info) Description 03/08/2025 Orders Only [facility] MEDICAL ONCOLOGY [address], 11th [place] [address] Generic Social History Tobacco Use Types Packs/Day Years Used Date Smoking Tobacco: Every Day Cigarettes 0.5 30.8 Started: 2024 Passive Smoke Exposure: Current Smokeless Tobacco: Never Comments:Offered patient an appointment at the health department for smoking cessation classes. Patient declined. Alcohol Use Standard Drinks/Week Comments Never 0 (1 standard drink = 0.6 oz pur e alcohol) [facility] Utilities Answer Date Recorded In the past 12 months has [employer], gas, oil, or water company threatened to [...] How often do you attend [facility] or shinto services? More than 4 [...] ONCOLOGY PRACTICE [address], 10th [place] [address] Rachel Pagan MD [address] [place] [address] 08/28/2025 1:00 PM EDT Office Visit [facility] ORTHOPEDIC PODIATRY PRACTICE [address], 6th [place] [address] Yazan Castro DPM [address] [place] [address] 08/29/2025 10:30 AM EDT Appointment [facility] MEDICAL ONCOLOGY [address], 11th [place] [address] 09/06/2025 1:45 PM EDT Appointment [facility]TR[facility]OUND [address], 2nd [place] [address] 09/12/2025 9:30 AM EDT Appointment [facility] MRI BLDG D [address], [place] [address] 09/28/2025 9:30 AM EST Office Visit [facility] CARDIOLOGY PRACTICE [address], 1st [place] [address] Ky Jewell MD [address] [place] [address] 11/05/2025 2:45 PM EST Office Visit [facility] NEUROLOGY PRACTICE [address], 8th [place] [address] Ruddy Mayes MD [facility] [place] [address] 12/31/2025 11:30 AM EST Office Visit [facility] NEPHROLOGY PRACTICE [address] [phone] 01/22/2026 9:00 AM EDT Office Visit [facility] CARDIOLOGY PRACTICE [address], 1st [place] [address] Allyn Toribio NP [address] [phone] documented as of this encounter Visit Diagnoses [...] documented as of this encounter Care Teams Physician Asst Relationship Specialty Start Date End Date Italo Camejo NP [address] [facility], [address] [place] [address] PCP - General Family Medicine 09/24/23 03/19/25 Lizandro Khan NP [address] [place] [address] PCP - General Family Medicine 03/20/25 07/22/25 Lizandro Khan NP [address] [place] [address] PCP - General Family Medicine 07/23/25 Rachel Pagan MD [address] [facility] [place] [address] Consulting Physician Oncology 11/11/22 Pati Rucker APRN [address] [facility] [place] [address] Nurse Practitioner Oncology 12/21/22 Sosa Gardner APRN [address] [place] [address] Nurse Practitioner Oncology 06/24/23 Linda Elizabeth DO [address] [place] [address] Consulting Physician Oncology 03/01/25 Elsa [address]Vzquez [address] [place] [address] Nurse Navigator Oncology 06/05/25 07/19/25 Angie Murray, RN [address] [place] [address] Nurse Navigator Oncology 06/26/25 documented as of this encounter
--- OUTSIDE RECORDS SUMMARY | 2025-08-22 02:56 | XMS_ITS | Patient Health Record ---
Author Organization [facility] Address [address] [place] [address] Care Team Providers Care Industrial Property Appraiser Name Role Phone [place] Primary Care Provider Allergies Allergen (clinical drug ingredient) Drug/Non Drug Allergy documented on EMR Reaction Allergy Type Onset Date Status Requip (uncoded) rash Allergy Act leandra Reason For Referral No Information Medications Medication SIG (Take, Route, Frequency, Duration) Notes Start Date End Date Status Isosorbide Mononitrate 20 MG 1 tablet Orally Twice a day Active Imdur 30 MG 1 tablet Orally BID Active Gabapentin 800 MG 1 tablet to equal 800mg in the morning 1/2 tablet (400mg) at noon then 1 tablet (800mg) at bedtime Orally as directed; Duration: 30 days 06/23/2023 Active Coreg 6.25 MG Orally bid Activ e Triamcinolone Acetonide 40 MG/ML 1 ml Injection Once a day; Duration: 1 days 06/23/2023 Active Micro-K 10 MEQ 2 capsule with food to equal 20meq Orally once daily; Duration: 90 days 04/23/2021 Active Lasix 20 MG 1 tablet Orally twice Active Vitamin D (Ergocalciferol) 50 MCG (2000 UT) 1 capsule Orally Once a day Active Nicoderm CQ 21 MG/24HR 1 patch to skin Transdermal Once a day; Duration: 30 day(s) 04/30/2022 Not-Taking Claritin 10 MG 1 tablet Orally Once a day Active Lisinopril 40 MG 1 tablet Orally Once a day Active Folic Acid 1 MG 1 tablet Orally Once a day; Duration: 90 days Active Flonase 50 MCG/DOSE 1 spray in each nostril Nasally Once a day Active Topamax 100 MG 1 tablet Orally Once a day; Duration: 90 days Active Aspir-Low 81 MG 1 tablet Orally Once a day Active Cyclobenzaprine HCl 10 mg TAKE ONE TABLE T AT BEDTIME NEEDED Orally Once a day; Duration: 90 days Active busPIRone HCl 5 mg TAKE 1 TABLET BY GERA TWICE DAILY; Duration: 30 Active Immunizations Vaccine Route Administration Date Status Comme nts Afluria ^4 IM Intramuscular 10/03/2020 Administered Fluzone IM Intramuscular 09/11/2021 Administered Fluzone IM Intramuscular 07/17/2022 Administered Problems Problem Type SNOMED Code ICD Code Onset Dates Problem Status W/U Status Risk Notes Problem Pernicious anemia (45974092) Vitamin B12 deficiency anemia due to intrinsic factor deficiency (D51.0) Active confirmed Problem Vitamin D deficiency (62683770) Vitamin D deficiency, unspecified (E55.9) Active confirmed Problem Hyperlipidemia (30160948) Hyperlipidemia, unspecified (E78.5) Active confirmed Problem Tobacco user (258748008) Nicotine dependence, unspecified, uncomplicated (F17.200) Active confirmed Problem Restless legs syndrome (74115529) Restless legs syndrome (G25.81) Active confirmed Problem Polyneuropathy (41347585) Polyneuropathy, unspecified (G62.9) Active confirmed Problem Essential hypertension (55884622) Essential (primary) hypertension (I10) Active confirmed Problem Chronic atrial fibrillation (410125402) Chronic atrial fibrillation (I48.2) Active confirmed Problem Allergic rhinitis (87807142) Allergic rhinitis, unspecified (J30.9) Active confirmed Problem Chronic atrial fibrillation (disorder) (379992006) Chronic atrial fibrillation, unspecified (I48.20) Active confirmed Problem Vitamin D deficiency (11633112) Vitamin D deficiency (E55.9) Active confirmed Problem Anxiety (71487511) Anxiety (F41.9) Active confi rmed Problem Restless legs (51314557) RLS (restless legs syndrome) (G25.81) Active confirmed Plan Of Treatment Pending Test Test Name Order Date Chest X-ray PA and lateral 04/30/2022 Vitamin B12 09/15/2017 Vitamin B12 01/26/2023 Vitamin B12 09/27/2018 Vitamin B12 12/20/2015 Vitamin B12 03/16/2016 Lipids, Total, Serum 03/16/2016 Lipids, Total, Serum 08/09/2015 Lipids, Total, Serum 12/20/2015 Lipids, Total, Serum 06/23/2016 Lipids, Total, Serum 07/28/2016 Lipids, Total, Serum 04/13/2017 Lipids, Total, Serum 09/15/2017 Lipids, Total, Serum 09/27/2018 Urinalysis, Routine 06/11/2022 Urinalysis, Routine 09/21/2022 Lipid Panel 01/26/2023 Liver Function Test (LFT) 08/09/2015 Liver Function Test (LFT) 06/23/2016 TSH 03/18/2022 CBC With Differential/Platelet CBC With Differential/Platelet 5 Vitamin B12 08/09/2015 Vitamin B12 03/18/2022 Vitamin D, 25-Hydroxy 03/18/2022 TSH+Free T4 01/26/2023 Lipid Panel 03/18/2022 Comp. Metabolic Panel (14) 03/18/2022 Basic Metabolic Panel (7) 08/09/2015 Basic Metabolic Panel (7) 03/16/2016 Basic Metabolic Panel (7) 06/23/2016 Basic Metabolic Panel (7) 07/28/2016 PT with INR (Standing Order) 08/09/2015 Kenalog Injection 06/23/2023 EKG 04/30/2022 Vitamin -D 25-hidroxy 01/26/2023 Vitamin -D 25-hidroxy 09/15/2017 Vitamin -D 25-hidroxy 06/23/2016 Liver Function Test 07/28/2016 Liver Function Test 12/20/2015 Liver Function Test 03/16/2016 Liver Function Test 04/13/2017 BASIC METABOLIC PANEL 12/20/2015 BASIC METABOLIC PANEL 04/13/2017 COMPREHENSIVE METABOLIC PANEL 09/15/2017 COMPREHENSIVE METABOLIC PANEL 09/27/2018 CBC (H/H, RBC, INDICES, WBC, PLT) 2017 CBC (H/H, RBC, INDICES, WBC, PLT) 2016 CBC (H/H, RBC, INDICES, WBC, PLT) 2016 CBC (INCLUDES DIFF/PLT) 07/28/2016 CBC (INCLUDES DIFF/PLT) 06/23/2016 CBC (INCLUDES DIFF/PLT) 12/20/2015 CBC (INCLUDES DIFF/PLT) 03/16/2016 VITAMIN B12 06/23/2016 VITAMIN B12 07/28/2016 CBC w/DIFF 01/26/2023 Urine PCR 09/21/2022 Urine PCR 06/11/2022 urine drug confirmation gabapentin 05/22 urine drug confirmation gabapentin 12/28 urine drug confirmation gabapentin 06/23 CMP 01/26/2023 Insurance Providers Payer Name Payer Address Payer Phone Subscriber Number Group Number Insured Name Patient Relationship to Insured Coverage Start Date Coverage End Date [employer] [address] [address] [place] [phone] [id number] Jose Sims Self - patient is the insured [place] Medicaid [address] [place] [address] [id number] Jose Sims Self - patient is the insured Medical (General) History Medical History History ICD Code back problems htn Surgical History Surgery Date(Month/Year) angiogam
--- OUTSIDE RECORDS SUMMARY | 2025-08-22 02:56 | XMS_ITS | Encounter Summary ---
Author Organization [facility] nter Address [address] [place] [address] Care Team Providers Care Lamp Shade Maker Name Role Phone Rachel Pagan MD Unavailable [phone] Pati Rucker SOLDER LEVELER PRINTED CIRCUIT BOARDS Unavailable [phone] Sosa Gardner SOLDER LEVELER PRINTED CIRCUIT BOARDS Unavailable [phone] Italo Camejo LOOPER FIXER Primary Care Provider [phone] Linda Elizabeth DO Unavailable Lizandro Khan LOOPER FIXER Primary Care Provider [phone] Elsa Vazquez Unavailable Unavailable Angie Murray RN Unavailable Unavailab Lizandro Islas LOOPER FIXER Primary Care Provider [phone] Encounter Details Date Type Department Care Team (Late st Contact Info) Description 03/13/2025 Orders Only [facility] [address], 1st [place] [address] [address] [place] [address] Social History Tobacco Use Types Packs/Day Years Used Date Smoking Tobacco: Every Day Cigarettes 0.5 30.8 Started: 2024 Passive Smoke Exposure: Current Smokeless Tobacco: Never Comments:Offered patient an appointment at the health department for smoking cessation classes. Patient declined. Alcohol Use Standard Drinks/Week Comments Never 0 (1 standard drink = 0.6 oz pur e alcohol) [facility] Utilities Answer Date Recorded In the past 12 months has e FI[employer], imedo, or water [facility] threatened to shut off services in your [...] How often do you attend chur or congregational services? More than 4 times per year 11/11/2022 Do you belong to any clubs o r organizations such as islam groups, unions, fraternal or athletic groups, or [...] ONCOLOGY PRACTICE [address], 10th [place] [address] Rachel Pgaan MD [address] [place] [address] 08/28/2025 1:00 PM EDT Office Visit [facility] ORTHOPEDIC PODIATRY PRACTICE [address], 6th [place] [address] Yazan Castro DPM [address] [place] [address] 08/29/2025 10:30 AM EDT Appointment [facility] MEDICAL ONCOLOGY [address], 11th [place] [address] 09/06/2025 1:45 PM EDT Appointment [facility] ULTRASOUND [address], 2nd [place] [address] 09/12/2025 9:30 AM EDT Appointment [facility] MRI BLDG D [address], [place] [address] 09/28/2025 9:30 AM EST Office Visit [facility] CARDIOLOGY PRACTICE [address], 1st [place] [address] Ky Jewell MD [facility] [address] [place] [phone] 11/05/2025 2:45 PM EST Office Visit [facility] NEUROLOGY PRACTICE [address], 8th Floor Clinic [place] [phone] Ruddy Mayes MD [facility] [place] [address] 12/31/2025 11:30 AM EST Office Visit [facility] NEPHROLOGY PRACTICE [address] [place] [address] 01/22/2026 9:00 AM EDT Office Visit [facility] CARDIOLOGY PRACTICE [address], 1st Floor [place] [phone] Allyn Toribio NP [address] [place] [phone] documented as of this encounter Visit Diagnoses [...] documented as of this encounter Care Teams Lamp Shade Maker Relationship Specialty Start Date End Date Italo Camejo NP [address] [facility], [address] [place] [address] PCP - General Family Medicine 09/24/23 03/19/25 Lizandro Khan NP [address] [place] [address] PCP - General Family Medicine 03/20/25 07/22/25 Lizandro Khan NP [address] [place] [address] PCP - General Family Medicine 07/23/25 Rachel Pagan MD [address] [place] [address] Consulting Physician Oncology 11/11/22 Pati Rucker APRN [address] [place] [address] Nurse Practitioner Oncology 12/21/22 Sosa Gardner APRN [address] [place] [address] Nurse Practitioner Oncology 06/24/23 Linda Elizabeth DO [address] [place] [address] Consulting Physician Oncology 03/01/25 Elsa Vazquez [address] [place] [address] Nurse Navigator Oncology 06/05/25 07/19/25 Angie Murray, RN [address] [place] Nurse Navigator Oncology 06/26/25 documented as of this encounter
--- OUTSIDE RECORDS SUMMARY | 2025-08-22 02:56 | XMS_ITS | Encounter Summary ---
Author Organization [facility] nter Address [address] [place] [id number] Care Team Providers Care Care Professional Name Role Phone Rachel Pagan MD Unavailable [phone] Pati Rucker TUBE MACHINE OPERATOR Unavailable [phone] Sosa Gardner TUBE MACHINE OPERATOR Unavailable [phone] Italo Camejo METAL ORGAN PIPE MAKER Primary Care Provider [phone] Linda Elizabeth DO Unavailable Lizandro Khan METAL ORGAN PIPE MAKER Primary Care Provider [phone] Elsa Vazquez Unavailable Unavailable Angie Murray RN Unavailable Unavailab Lizandro Islas METAL ORGAN PIPE MAKER Primary Care Provider Encounter Details Date Type Department Care Team (Late st Contact Info) Description 03/13/2025 Orders Only [facility] ONCOLOGY PRACTICE [address], 10th [place] [address] Linda Elizabeth DO [address] [place] [phone] Non-small cell lung cancer, unspecified laterality (Primary Dx) Social History Tobacco Use Types Packs/Day Years Used Date Smoking Tobacco: Every Day Cigarettes 0.5 30.8 Started: 2024 Passive Smoke Exposure: Current Smokeless Tobacco: Never Comments:Offered patient an appointment at the health department for smoking cessation classes. Patient declined. Alcohol Use Standard Drinks/Week Comments Never 0 (1 standard drink = 0.6 oz pur e alcohol) [facility] Utilities Answer Date Recorded In [...] often do you attend chur ch or samaritan services? More than 4 times per year [...] ONCOLOGY PRACTICE [address], 10th [place] [address] Rachel Pagan MD [address] [place] [address] 08/28/2025 1:00 PM EDT Office Visit [facility] ORTHOPEDIC PODIATRY PRACTICE [address], 6th [place] [address] Yazan Castro DPM [address] [place] [address] 08/29/2025 10:30 AM EDT Appointment [facility] MEDICAL ONCOLOGY [address], 11th [place] [address] 09/06/2025 1:45 PM EDT Appointment [facility] ULTRASOUND [address], 2nd [place] [address] 09/12/2025 9:30 AM EDT Appointment [facility] MRI BLDG D [address], [facility] [place] [address] 09/28/2025 9:30 AM EST Office Visit [facility] CARDIOLOGY PRACTICE [address], 1st [address] [place] [phone] Ky Jewell MD [address] [facility] [place] [address] 11/05/2025 2:45 PM EST Office Visit [facility] NEUROLOGY PRACTICE [address], 8th [place] [address] Ruddy Mayes MD [facility] [address] [facility] [place] [address] 12/31/2025 11:30 AM EST Office Visit [facility] NEPHROLOGY PRACTICE [address] [place] [phone] 01/22/2026 9:00 AM EDT Office Visit [facility] CARDIOLOGY PRACTICE [address], 1st [place] [address] Allyn Toribio NP [address] [place], [place] [phone] documented as of this encounter Visit Diagnoses Diagnosis Non-small cell lung cancer, unspecified laterality- Primary documented in this encounter Additional Health [...] documented as of this encounter Care Teams Care Professional Relationship Specialty Start Date End Date Italo Camejo NP [address] [facility], [address] [place] [address] PCP - General Family Medicine 09/24/23 03/19/25 Lizandro Khan NP [address] [place] [address] PCP - General Family Medicine 03/20/25 07/22/25 Lizandro Khan NP [address] [place] [address] PCP - General Family Medicine 07/23/25 Rachel Pagan MD [facility] [place] [address] Consulting Physician Oncology 11/11/22 Pati Rucker APRN [facility] [place] [address] Nurse Practitioner Oncology 12/21/22 Sosa Gardner APRN [facility] [address] [facility] [place] [address] Nurse Practitioner Oncology 06/24/23 Linda Elizabeth DO [address] [facility] [place] [address] Consulting Physician Oncology 03/01/25 Elsa Vazquez [address] [place] [address] Nurse Navigator Oncology 06/05/25 07/19/25 Angie Murray, RN [address] [place] [address] Nurse Navigator Oncology 06/26/25 documented as of this encounter
--- OUTSIDE RECORDS SUMMARY | 2025-08-22 02:56 | XMS_ITS | Encounter Summary ---
Author Organization [facility] nter Address [address] [place] [address] Care Team Providers Care Plastics Worker Name Role Phone Rachel Pagan MD Unavailable [phone] Pati Rucker SUPERINTENDENT RADIO COMMUNICATIONS Unavailable Sosa Gardner SUPERINTENDENT RADIO COMMUNICATIONS Unavailable [phone] Linda Elizabeth DO Unavailable Lizandro Khan PLASTICS HEAT WELDER Primary Care Provider [phone] Elsa Vazquez Unavailable Unavailable Angie Murray RN Unavailable Unavailab Lizandro Islas PLASTICS HEAT WELDER Primary Care Provider [phone] Encounter Details Date Type Department Care Team (Late st Contact Info) Description 04/06/2025 Orders Only [facility] ONCOLOGY PRACTICE [address], 10th [place] [address] Sosa Gardner, SUPERINTENDENT RADIO COMMUNICATIONS [address] [place] [address] Stage IV squamous cell carcinoma of lung, unspecified laterality Social History Tobacco Use Types Packs/Day Years Used Date Smoking Tobacco: Former Cigarettes 0.5 30.3 2 025 - 03/18/2025 Passive Smoke Exposure: Past Smokeless Tobacco: Never Comments:Offered patient an appointment at the health department for smoking cessation classes. Patient declined. Alcohol Use Standard Drinks/Week Comments Never 0 (1 standard drink = 0.6 oz pur e alcohol) [facility] Utilities Answer Date Recorded In the [...] How often do you attend chur or shinto services? More than 4 times [...] in a jail (including now)? No 11/11/2022 Comments No Sex [...] ONCOLOGY PRACTICE [address], 10th [place] [address] Rachel Pagan MD [address] [place] [address] 08/28/2025 1:00 PM EDT Office Visit [facility] ORTHOPEDIC PODIATRY PRACTICE [address], 6th [place] [address] Yazan Castro DPM [address] [place] [address] 08/29/2025 10:30 AM EDT Appointment [facility] MEDICAL ONCOLOGY [address], 11th [place] [address] 09/06/2025 1:45 PM EDT Appointment [facility] ULTRASOUND [address], 2nd [place] [address] 09/12/2025 9:30 AM EDT Appointment [facility] MRI BLDG D [address], [place] [address] 09/28/2025 9:30 AM EST Office Visit [facility] CARDIOLOGY PRACTICE [address], 1st [place] [address] Ky Jewell MD [address] [facility] [place] [address] 11/05/2025 2:45 PM EST Office Visit [facility] NEUROLOGY PRACTICE [address], 8th [place] [address] Ruddy Mayes MD [address] [facility] [place] [address] 12/31/2025 11:30 AM EST Office Visit [facility] NEPHROLOGY PRACTICE [address] [place] [phone] 01/22/2026 9:00 AM EDT Office Visit [facility] CARDIOLOGY PRACTICE [address], 1st [place] [address] Allyn Toribio NP [address] [place] [phone] documented as of this encounter Procedures Procedure Name Priority Date/Time Associated Diagnosis Comments CBC WITH AUTO DIFFERENTIAL Routine 04/06/2025 10:50 AM EDT Stage IV squamous cell carcinoma of lung, unspecified laterality COMPREHENSIVE METABOLIC PANEL Routine 04/06/2025 10:50 AM EDT Stage IV squamous cell carcinoma of lung, unspecified laterality documented in this encounter Results * (ABNORMAL) Comprehensive metabolic panel (04/06/2025 10:50 AM EDT) Sodium 135 134 - 143 mmol/L 04/06/2025 11:23 AM EDT [facility] Potassium 4.5 3.2 - 4.6 mmol/L 04/06/2025 11:23 AM [facility] Chloride 101 99 - 108 mmol/L 04/06/2025 11:23 AM [facility] CO2 25 19 - 29 mmol/L 04/06/2025 11:23 AM [facility] Anion Gap 9 5 - 15 mmol/L 04/06/2025 11:23 AM [facility] BUN 18 7 - 20 mg/dL 04/06/2025 11:23 AM [facility] Creatinine 0.84 <=1.20 mg/dL 04/06/2025 11:23 AM [facility] BUN/Creatinine Ratio 21.43(H) 10.00 - 20.00 ratio 04/06/2025 11:23 AM [facility] Glucose 165(H) 58 - 104 mg/dL 04/06/2025 11:23 AM [facility] Calcium 8.6 7.9 - 11.1 mg/dL 04/06/2025 11:23 AM [facility] AST 15 10 - 28 U/L 04/06/2025 11:23 AM [facility] ALT (SGPT) 35 <=40 U/L 04/06/2025 11:23 AM [facility] Alkaline Phosphatase 84 29 - 108 U/L 04/06/2025 11:23 AM [facility] Total Protein 6.0 5.9 - 7.9 g/dL 04/06/2025 11:23 AM [facility] Albumin 3.2(L) 3.5 - 5.1 g/dL 04/06/2025 11:23 AM [facility] Globulin, Total 2.8 2.4 - 4.8 g/dL 04/06/2025 11:23 AM [facility] A/G Ratio 1.1 0.6 - 1.6 04/06/2025 11:23 AM [facility] Total Bilirubin 0.8 0.3 - 1.0 mg/dL 04/06/2025 11:23 AM [facility] eGFR (CKD-EPI) 72.7 >60.0 - 200.0 mL/min/1. 73m*2 04/06/2025 11:23 AM [facility] Blood Venous blood specimen / Unknown Venipuncture / Unknown 04/06/2025 10:50 AM EDT 04/06/2025 10:58 AM EDT [facility] - 04/06/2025 11:23 AM EDT Please note possible changes in reference range and units reported due to change in methodology. us Sosa Gardner APRN LAB BLOOD ORDERABLES Final Res ult [facility] [address] [place] [address], * (ABNORMAL) CBC auto differential (04/06/2025 10:50 AM EDT) Auto WBC 2.8(L) 3.8 - 11.0 10*3/uL 04/06/2025 11:07 AM [facility] RBC 2.54(L) 3.73 - 5.13 10*6/uL 04/06/2025 11:07 AM [facility] Hemoglobin 8.3(L) 11.2 - 15.3 g/dL 04/06/2025 11:07 AM [facility] Hematocrit 23.5(L) 32.6 - 44.6 % 04/06/2025 11:07 AM [facility] MCV 92.5 78.8 - 96.0 fL 04/06/2025 11:07 AM [facility] MCH 32.7 26.2 - 33.0 pg 04/06/2025 11:07 AM [facility] MCHC 35.4(H) 32.7 - 35.1 g/dL 04/06/2025 11:07 AM [facility] RDW 15.1 12.1 - 16.1 % 04/06/2025 11:07 AM [facility] MPV 8.7 7.0 - 10.6 fL 04/06/2025 11:07 AM [facility] Neutrophils % 58 47 - 79 % 04/06/2025 11:07 AM [facility] Lymphocytes % 33 13 - 41 % 04/06/2025 11:07 AM [facility] Monocytes % 7 3 - 11 % 04/06/2025 11:07 AM [facility] Eosinophils % 1 0 - 6 % 04/06/2025 11:07 AM [facility] Basophils % 1 0 - 2 % 04/06/2025 11:07 AM [facility] Neutrophils Absolute 1.60(L) 1.90 - 7.50 10*3/uL 04/06/2025 11:07 AM [facility] Lymphocytes Absolute 0.90 0.80 - 3.20 10*3/uL 04/06/2025 11:07 AM [facility] Monocytes Absolute 0.20 0.10 - 0.90 10*3/uL 04/06/2025 11:07 AM [facility] Eosinophils Absolute 0.00 0.00 - 0.40 10*3/uL 04/06/2025 11:07 AM [facility] Basophils Absolute 0.00 0.00 - 0.20 10*3/uL 04/06/2025 11:07 AM [facility] Platelets 71(L) 138 - 402 10*3/uL 04/06/2025 11:07 AM [facility] Blood Venous blood specimen / Unknown Venipuncture / Unknown 04/06/2025 10:50 AM EDT 04/06/2025 10:58 AM EDT us Sosa Gardner APRN LAB BLOOD ORDERABLES Final Res ult [facility] [address] [place] [address], documented in this encounter Visit Diagnoses Diagnosis Stage IV squamous cell carcinoma of lung, unspecified laterality documented in this encounter Additional Health Concerns Infection Onset Date Last Indicated Resolved Time Gastrointestinal Rule-Out 05/15/2025 05/18/2025 11:26 AM EDT C. difficile Rule-Out 05/15/2025 05/18/20252024 12:02 PM EDT ESBL Escherichia coli (Colby ry) Comment:Urine + ESBL E coli 05/15/25. Patient already noted to be in contact isolation. Tila Dia 05/21/25 8:47 AM Readmitted 06/12/25. Patient already noted to be in contact isolation. Tila Dia 06/12/25 1:24 PM 05/15/2025 05/15/2025 06/14/2025 7:28 PM E DT Assessment Noted Time PHQ-9 Depression Total Score: 0 04/02/20 11:00 AM EDT documented as of this encounter Care Teams Plastics Worker Relationship Specialty Start Date End Date Lizandro Khan NP [address] [place] [address] PCP - General Family Medicine 03/20/25 07/22/25 Lizandro Khan NP [address] [place] [address] PCP - General Family Medicine 07/23/25 Rachel Pagan MD [address] [place] [phone] Consulting Physician Oncology 11/11/22 Pati Rucker APRN [address] [place] [address] Nurse Practitioner Oncology 12/21/22 Sosa Gardner APRN [address] [place] [address] Nurse Practitioner Oncology 06/24/23 Linda Elizabeth DO [address] [place] [address] Consulting Physician Oncology 03/01/25 Elsa Vazquez [address] [place] [address] Nurse Navigator Oncology 06/05/25 07/19/25 Angie Murray, ROLDAN [address] [place] [address] Nurse Navigator Oncology 06/26/25 documented as of this encounter
--- OUTSIDE RECORDS SUMMARY | 2025-08-22 02:57 | XMS_ITS | Encounter Summary ---
Author Organization [facility] nter Address [address] [place] [address] Care Team Providers Care Ladle Handler Name Role Phone Rachel Pagan MD Unavailable [phone] Pati Rucker TELEPHONE COLLECTOR Unavailable [phone] Sosa Gardner TELEPHONE COLLECTOR Unavailable [phone] Linda Elizabeth DO Unavailable Lizandro Khan BUSINESS PROJECT MANAGER Primary Care Provider [phone] Elsa Vazquez Unavailable Unavailable Angie Murray RN Unavailable Unavailab Lizandro Islas BUSINESS PROJECT MANAGER Primary Care Provider [phone] Encounter Details Date Type Department Care Team (Late st Contact Info) Description 04/10/2025 Orders Only [facility] MEDICAL ONCOLOGY [address], 11th [place] [phone] Generic Social History Tobacco Use Types Packs/Day Years Used Date Smoking Tobacco: Former Cigarettes 0.5 30.3 2 025 - 03/18/2025 Passive Smoke Exposure: Past Smokeless Tobacco: Never Comments:Offered patient an appointment at the health department for smoking cessation classes. Patient declined. Alcohol Use Standard Drinks/Week Comments Never 0 (1 standard drink = 0.6 oz pur e alcohol) [facility] Utilities Answer Date Recorded In the past 12 months has [employer] electric, gas, oil, or water company threatened [...] week 11/11/2022 How often do you attend [facility] or congregational services? More than 4 times [...] in a residential (including now)? No 11/11/2022 Comments No Sex [...] ONCOLOGY PRACTICE [address], 10th [place] [address] Rachel Pagan MD [address] [place] [address] 08/28/2025 1:00 PM EDT Office Visit [facility] ORTHOPEDIC PODIATRY PRACTICE [address], 6th [place] [address] Yazan Castro DPM [address] [place] [address] 08/29/2025 10:30 AM EDT Appointment [facility] MEDICAL ONCOLOGY [address], 11th [place] [address] 09/06/2025 1:45 PM EDT Appointment [facility] ULTRASOUND [address], 2nd [place] [address] 09/12/2025 9:30 AM EDT Appointment [facility] MRI BLDG D [address], [place] [address] 09/28/2025 9:30 AM EST Office Visit [facility] CARDIOLOGY PRACTICE [address], 1st [place] [address] Ky Jewell MD [address] [place] [address] 11/05/2025 2:45 PM EST Office Visit [facility] NEUROLOGY PRACTICE [address], 8th Floor Clinic [place] [phone] Ruddy Mayes MD [facility] [address] [place] [phone] 12/31/2025 11:30 AM EST Office Visit [facility] NEPHROLOGY PRACTICE [address] [place] [address] 01/22/2026 9:00 AM EDT Office Visit [facility] CARDIOLOGY PRACTICE [address], 1st [place] [address] Allyn Toribio NP [address] [place] [address] documented as of this encounter Visit Diagnoses [...] documented as of this encounter Care Teams Ladle Handler Relationship Specialty Start Date End Date Lizandro Khan NP [address] [place] [address] PCP - General Family Medicine 03/20/25 07/22/25 Lizandro Khan NP [address] [place] [address] PCP - General Family Medicine 07/23/25 Rachel Pagan MD [address] [place], [place] [address] Consulting Physician Oncology 11/11/22 Pati Rucker APRN [address] [place] [address] Nurse Practitioner Oncology 12/21/22 Sosa Gardner APRN [address] [place], [place] [address] Nurse Practitioner Oncology 06/24/23 Linda Elizabeth DO [address] [place], [place] [address] Consulting Physician Oncology 03/01/25 Elsa Vazquez [address] [place] [address] Nurse Navigator Oncology 06/05/25 07/19/25 Angie Murray, ROLDAN [address] [place] [address] Nurse Navigator Oncology 06/26/25 documented as of this encounter
--- OUTSIDE RECORDS SUMMARY | 2025-08-22 02:57 | XMS_ITS | Encounter Summary ---
Author Organization [facility] nter Address [address] [place] [address] Care Team Providers Care Water Sponger Name Role Phone Rachel Pagan MD Unavailable [phone] Yesy Acuna RN Unavailable Pati Rucker PHOTOENGRAVING FINISHER Unavailable [phone] Sosa Gardner PHOTOENGRAVING FINISHER Unavailable [phone] Italo Camejo PROCESS DEVELOPMENT CHEMIST Primary Care Provider [phone] Linda Elizabeth DO Unavailable Lizandro Khan PROCESS DEVELOPMENT CHEMIST Primary Care Provider [phone] Elsa Vazquez Unavailable Unavailable Angie Murray RN Unavailable Unavailab Lizandro Islas PROCESS DEVELOPMENT CHEMIST Primary Care Provider [phone] Reason for Visit * Reason Comments Med Refill Encounter Details Date Type Department Care Team (Late st Contact Info) Description 11/05/2023 Refill [facility] [address], 10th [place] [address] Rachel Pagan MD [address] [place] [address] Non-small cell cancer of right [...] How often do you attend chur or holiness services? More than 4 times per year 11/11/2022 Do you belong to any clubs o r organizations such as roman catholic groups, unions, fraternal or athletic groups, or [...] a senior care (including now)? No 11/11/2022 Comments No Sex [...] ONCOLOGY PRACTICE [address] 10th [place] [address] Rachel Pagan MD [address] [place] [address] 08/28/2025 1:00 PM EDT Office Visit [facility] [address] 6th [place] [address] Yazan Castro DPM [address] [place] [address] 08/29/2025 10:30 AM EDT Appointment [facility] MEDICAL ONCOLOGY [address] 11th [place] [address] 09/06/2025 1:45 PM EDT Appointment [facility]TR[facility]OUND [address], 2nd [place] [address] 09/12/2025 9:30 AM EDT Appointment [facility] MRI BLDG D [address], [place] [address] 09/28/2025 9:30 AM EST Office Visit [facility] CARDIOLOGY [facility] [address], 1st [place] [address] Ky Jewell MD [address] [place] [address] 11/05/2025 2:45 PM EST Office Visit [facility] NEUR[facility] [address], 8th [place] [address] Ruddy Mayes MD [address] [place] [address] 12/31/2025 11:30 AM EST Office Visit [facility] NE[facility] [address] [id number] 01/22/2026 9:00 AM EDT Office Visit [facility] [address], 1st [place] [address] Allyn Toribio NP [address] [place] [id number] documented as of this encounter Visit Diagnoses [...] as of this encounter Care Teams Water Sponger Relationship Specialty Start Date End Date Italo Camejo NP [address] [facility] [address], [address] [place] [address] PCP - General Family Medicine 09/24/23 03/19/25 Lizandro Khan NP [address] [place] [address] PCP - General Family Medicine 03/20/25 07/22/25 Lizandro Khan NP [address] [place] [address] PCP - General Family Medicine 07/23/25 Rachel Pagan MD [facility] [address] [facility] [place] [address] Consulting Physician Oncology 11/11/22 Yesy Acuna RN [address] [place] [address] Nurse Navigator 11/12/22 03/05/25 Pati Rucker APRN [address] [facility] [place] [address] Nurse Practitioner Oncology 12/21/22 Sosa Gardner APRN [address] [place] [address] Nurse Practitioner Oncology 06/24/23 Linda Elizabeth DO [address] [place] [address] Consulting Physician Oncology 03/01/25 Elsa Vazquez [address] [place] [address] Nurse Navigator Oncology 06/05/25 07/19/25 Angie Murray, ROLDAN [address] [place] [address] Nurse Navigator Oncology 06/26/25 documented as of this encounter
--- OUTSIDE RECORDS SUMMARY | 2025-08-22 02:57 | XMS_ITS | Encounter Summary ---
Author Organization [facility] nter Address [address] [place] [address] Care Team Providers Care Engineer [employer]umping [employer] Name Role Phone Rachel Pagan MD Unavailable [phone] Yesy Acuna RN Unavailable [phone] PROGRAMMER ENGINEERING AND SCIENTIFIC Primary Care Provider [phone] Pati Rucker GAME TRAPPER Unavailable [phone] Sosa Gardner GAME TRAPPER Unavailable [phone] Italo Camejo PROGRAMMER ENGINEERING AND SCIENTIFIC Primary Care Provider [phone] Linda Elizabeth DO Unavailable Lizandro Khan PROGRAMMER ENGINEERING AND SCIENTIFIC Primary Care Provider [phone] Elsa Vazquez Unavailable Unavailable Angie Murray RN Unavailable Unavailab Lizandro Islas PROGRAMMER ENGINEERING AND SCIENTIFIC Primary Care Provider [phone] Encounter Details Date Type Department Care Team (Late st Contact Info) Description 09/15/2023 Orders Only [facility] [address] 10th [place] [address] Rachel Pagan MD [address] [place] [address] Non-small cell cancer of right [...] week 11/11/2022 How often do you attend [facility] or taoist services? More than 4 times [...] ONCOLOGY PRACTICE [address], 10th [place] [address] Rachel Pagan MD [address] [place] [address] 08/28/2025 1:00 PM EDT Office Visit [facility]RY PRACT[facility] [address] 6th [place] [address] Yazna Castro DPM [address] [place] [address] 08/29/2025 10:30 AM EDT Appointment [facility] MEDICAL ONCOLOGY [address], 11th [place] [address] 09/06/2025 1:45 PM EDT Appointment [facility] ULTRASOUND [address], 2nd [place] [address] 09/12/2025 9:30 AM EDT Appointment [facility] MRI BLDG D [address], [address] [place] [phone] 09/28/2025 9:30 AM EST Office Visit [facility] CARDIOLOGY PRACTICE [address], [address] [place] [phone] Ky Jewell MD [address] [facility] [place] [phone] 11/05/2025 2:45 PM EST Office Visit [facility] NEUROLOGY PRACTICE [address], [address] Floor Clinic [place] [phone] Ruddy Mayes MD [facility] [address] [facility] [place] [address] 12/31/2025 11:30 AM EST Office Visit [facility] NEPHROLOGY PRACTICE [address] [place] [address] 01/22/2026 9:00 AM EDT Office Visit [facility] CARDIOLOGY PRACTICE [address], [address] [place] [phone] Allyn Toribio, GRAHAM [address] [place] [address] documented as of this encounter Results * (ABNORMAL) Comprehensive metabolic panel (09/16/2023 1:07 PM EDT) Sodium 140 133 - 144 mmol/L 09/16/2023 1:42 PM EDT [facility] Potassium 4.2 3.6 - 5.2 mmol/L 09/16/2023 1:42 PM EDT [facility] Chloride 110(H) 98 - 107 mmol/L 09/16/2023 1:42 PM EDT [facility] CO2 28 21 - 32 mmol/L 09/16/2023 1:42 PM EDT [facility] Anion Gap 2(L) 5 - 15 mmol/L 09/16/2023 1:42 PM EDT [facility] BUN 25(H) 7 - 18 mg/dL 09/16/2023 1:42 PM [facility] Creatinine 1.30(H) 0.55 - 1.02 mg/dL 09/16/2023 1:42 PM [facility] BUN/Creatinine Ratio 19.23 10.00 - 20.00 ratio 09/16/2023 1:42 PM [facility] Glucose 90 70 - 110 mg/dL 09/16/2023 1:42 PM [facility] Calcium 8.5 8.5 - 10.1 mg/dL 09/16/2023 1:42 PM [facility] AST 8(L) 15 - 37 U/L 09/16/2023 1:42 PM [facility] ALT (SGPT) 18 13 - 56 U/L 09/16/2023 1:42 PM [facility] Alkaline Phosphatase 102 45 - 117 U/L 09/16/2023 1:42 PM [facility] Total Protein 5.9(L) 6.4 - 8.4 g/dL 09/16/2023 1:42 PM [facility] Albumin 2.5(L) 3.4 - 5.0 g/dL 09/16/2023 1:42 PM [facility] Globulin, Total 3.4 2.4 - 4.8 g/dL 09/16/2023 1:42 PM [facility] A/G Ratio 0.7 0.6 - 1.6 09/16/2023 1:42 PM [facility] Total Bilirubin 0.5 0.0 - 1.0 mg/dL 09/16/2023 1:42 PM [facility] eGFR (CKD-EPI) 43.5(L) >60.0 - 200.0 mL/min/1.7 3m*2 09/16/2023 1:42 PM [facility] Blood Venous blood specimen / Unknown Venipuncture / Unknown 09/16/2023 1:07 PM EDT 09/16/2023 1:16 PM EDT us Rachel Soriano MD LAB BLOOD ORDERABLES Final Result [facility] [address] [place] [address], * (ABNORMAL) CBC auto differential (09/16/2023 1:07 PM EDT) Auto WBC 10.6 3.0 - 11.3 10*3/uL LAB HEMATOLOGY METHOD 09/16/2023 1:25 PM EDT [facility] RBC 4.16 3.45 - 5.40 10*6/uL LAB HEMATOLOGY METHOD 09/16/2023 1:25 PM EDT [facility] Hemoglobin 13.3 10.0 - 16.0 g/dL LAB HEMATOLOGY METHOD 09/16/2023 1:25 PM EDT [facility] Hematocrit 39.3 29.9 - 45.5 % LAB HEMATOLOGY METHOD 09/16/2023 1:25 PM EDT [facility] MCV 94.4 78.2 - 101.8 fL LAB HEMATOLOGY METHOD 09/16/2023 1:25 PM EDT [facility] MCH 32.0 26.4 - 33.3 pg LAB HEMATOLOGY METHOD 09/16[facility]23 [facility] MCHC 33.9 32.5 - 35.3 g/dL LAB HEMATOLOGY METHOD 09/16/2023 1:[facility] RDW 14.0 10.1 - 16.2 % LAB HEMATOLOGY METHOD 09/16/2023 1:[facility] MPV 7.9 6.4 - 10.4 fL LAB HEMATOLOGY METHOD 09/16/2023 1:25 PM EDT [facility] Neutrophils % 66 43 - 83 % LAB HEMATOLOGY METHOD 09/16/2023 1:25 PM EDT [facility] Lymphocytes % 22 10 - 42 % LAB HEMATOLOGY METHOD 09/16/2023 1:25 PM EDT [facility] Monocytes % 8 1 - 14 % LAB HEMATOLOGY METHOD 09/16/2023 1:[facility] Eosinophils % 4 0 - 11 % LAB HEMATOLOGY METHOD 09/16/2023 1:25 PM EDT [facility] Basophils % 1 0 - 2 % LAB HEMATOLOGY METHOD 09/16/2023 1:25 PM EDT [facility] Neutrophils Absolute 7.00 3.40 - 7.00 10*3/uL LAB HEMATOLOGY METHOD 09/16/2023 1:25 PM EDT [facility] Lymphocytes Absolute 2.30 0.40 - 3.90 10*3/uL LAB HEMATOLOGY METHOD 09/16/2023 1:25 PM EDT [facility] Monocytes Absolute 0.80(H) 0.20 - 0.60 10*3/uL LAB HEMATOLOGY METHOD 09/16/2023 1:25 PM EDT [facility] Eosinophils Absolute 0.40 0.00 - 0.90 10*3/uL LAB HEMATOLOGY METHOD 09/16/2023 1:25 PM EDT [facility] Basophils Absolute 0.10 0.00 - 0.20 10*3/uL LAB HEMATOLOGY METHOD 09/16/2023 1:25 PM EDT [facility] Platelets 198 122 - 454 10*3/uL LAB HEMATOLOGY METHOD 09/16/2023 1:25 PM EDT [facility] Blood Venous blood specimen / Unknown Venipuncture / Unknown 09/16/2023 1:07 PM EDT 09/16/2023 1:16 PM EDT Rachel Soriano MD LAB BLOOD ORDERABLES Final Result Performing Organization Address City/State/[facility] Co de Phone Number [facility] [address] [place] [address], documented in this encounter Visit Diagnoses Diagnosis [...] 1:24 PM 05/15/2025 05/15/2025 06/14/2025 7:28 PM EDT documented as of this encounter Care Teams Engineer Gas Pumping [employer] Relationship Specialty Start Date End Date Viridiana Plaza NP [address] [place] [phone] PCP - General Family Medicine 12/10/22 09/23/23 Italo Camejo NP [address] [place] [address], [address] [place] [address] PCP - General Family Medicine 09/24/23 03/19/25 Lizandro Kahn NP [address] [place] [address] PCP - General Family Medicine 03/20/25 07/22/25 Lizandro Khan NP [address] [place] [address] PCP - General Family Medicine 07/23/25 Rachel Pagan MD [address] [place] [address], [place] [phone] Consulting Physician Oncology 11/11/22 Yesy Acuna, ROLDAN [address] [place] [address] Nurse Navigator 11/12/22 03/05/25 Pati Rucker APRN [address] [place] [phone] Nurse Practitioner Oncology 12/21/22 Sosa Gardner APRN [address] [place] [phone] Nurse Practitioner Oncology 06/24/23 Linda Elizabeth DO [address] [place] [address] Consulting Physician Oncology 03/01/25 Elsa Vazquez [address] [place] [address] Nurse Navigator Oncology 06/05/25 07/19/25 Angie Murray RN [address] [place] [address] Nurse Navigator Oncology 06/26/25 documented as of this encounter
[2025-08-22 03:03] LABS: Hematocrit 23.7 % (37.0-47.0); Hemoglobin 7.7 g/dL (12.2-16.2); Immature Granulocytes % 0.4 %; Mean Corpuscular HGB Conc 32.5 g/dL (31.8-35.4); Mean Corpuscular Hemoglobin 36.8 pg (27.0-31.2); Mean Corpuscular Volume 113.4 fl (81-99); Nucleated Red Blood Cells % 0 %; Platelet Count 64 K/mm3 (142-424); Red Blood Count 2.09 M/mm3 (4.20-5.40); Red Cell Distribution Width-SD 74.1 fL; White Blood Count 2.5 K/mm3 (4.8-10.8)
[2025-08-22 03:19] LABS: Alanine Aminotransferase 16 U/L (12-78); Albumin Level 2.8 g/dl (3.5-5.0); Albumin/Globulin Ratio 0.9 (1.1-1.8); Alkaline Phosphatase 95 U/L (38-126); Anion Gap 13.0 mEq/L (5-15); Aspartate Amino Transferase 23 U/L (14-36); Bilirubin,Total 0.6 mg/dl (0.2-1.3); Blood Urea Nitrogen 23 mg/dl (7-17); Calcium 8.4 mg/dl (8.4-10.2); Carbon Dioxide 27 mmol/L (22.0-30.0); Chloride 101 mmol/L (98-107); Creatinine Clearance Estimated 31 mL/min (50-200); Creatinine,Serum 1.60 mg/dl (0.52-1.04); Estimated Glomerular Filt Rate 32 ml/min (>60); GFR (African American) 39 ML/MIN (>60); Globulin 3.0 g/dL (1.3-3.2); Glucose 61 mg/dl (74-100); Magnesium 2.2 mg/dl (1.6-2.3); Potassium 4.0 mmoL/L (3.5-5.1); Sodium 137 mmol/L (136-145); Total Protein,Serum 5.8 g/dl (6.3-8.2)
[2025-08-22 03:20] LABS: Activated Partial Thrombo Time 29.9 seconds (22.8-30.6); INR 1.19 (0.9-1.1); Prothrombin Time 13.0 seconds (10.1-12.5)
[2025-08-22 03:33] LABS: Troponin I < 0.01 ng/ml (0.00-0.034)
[2025-08-22] MEDS: LACTATED RINGERS 1000ML 1,000 ML 999 ML IV (03:37)
--- NOTE | 2025-08-22 03:58 | PC.NURSE ---
Report given to Zaira MONTILLA at [facility]
[2025-08-22 05:18] LABS: Hepatitis C Ab Qual. W/ RFX NEGATIVE (Negative)
== END 2025-08-22 03:56 | disposition other institution (70) ==
PROVIDERS: Emergency Provider Emergency Medicine; PCP Nurse Practitioner
DX: S01.312A Laceration without foreign body of left ear, initial encounter (principal); R94.02 Abnormal brain scan; W19.XXXA Unspecified fall, initial encounter
CPT/HCPCS: 70450; 71045; 72125; 72170; 80053; 83735; 84484; 85025; 85610; 85730; 86803; 87389; 93005; 96361; 96374; 96375; 99285; J0131; J2270; J7120

== ENCOUNTER 2025-08-23 13:41 | Outpatient (CLI) | payer MEDICARE, SELFPAY ==
[2025-08-23] MEDS: SODIUM CHLORIDE 0.9% 10ML FLUSH SYRINGE 10 ML IV (14:00)
== END 2025-08-23 23:59 | disposition home or self-care (01) ==
LOC: INF 13:42
PROVIDERS: PCP Nurse Practitioner; Visit Provider Nurse Practitioner
DX: Z45.2 Encounter for adjustment and management of vascular access device (principal)
CPT/HCPCS: 96523; J1642

== ENCOUNTER 2025-09-30 11:14 | Emergency (ER) | payer MEDICARE, SELFPAY ==
--- OUTSIDE RECORDS SUMMARY | 2025-08-06 08:38 | XMS_ITS | Encounter Summary ---
Author Organization [facility] nter Address [address] [place] [address] Care Team Providers Care Patient Safety Sitter Name Role Phone Rachel Pagan MD Unavailable [phone] Pati Rucker ORNAMENTAL IRON WORKER HELPER Unavailable [phone] Sosa Gardner ORNAMENTAL IRON WORKER HELPER Unavailable [phone] Linda Elizabeth DO Unavailable Angie Murray RN Unavailable Unavailab Lizandro Islas NP Primary Care Provider [phone] Reason for Referral * CT (Routine) - Closed Specialty Diagnoses / Procedures Referred By Controse mary t Referred To Contact Radiology Diagnoses Non-small cell cancer of right lung Procedures CT abdomen pelvis w IV contrast Rachel Pagan MD [address] [place] [address] Phone: tel: fax: [facility], [facility] [address] [place] [address] Phone: tel: fax: Referral ID Status Reason Start Date Expiration Date V isits Requested Visits Authorized [id number] Closed Specialty Services Required 07/30/2025 10/28/2025 1 1 * CT (Routine) - Closed Specialty Diagnoses / Procedures Referred By Contac t Referred To Contact Radiology Diagnoses Non-small cell cancer of right lung Procedures CT chest w IV contrast Rachel Pagan MD [address] [facility] [place] [place] [address] Phone: tel: fax: [facility], [facility] [address] [facility] [place] [address] Phone: tel: fax: Referral ID Status Reason Start Date Expiration Date V isits Requested Visits Authorized [id number] Closed Specialty Services Required 07/30/2025 10/28/2025 1 1 Reason for Visit * CT (Routine) - Closed Specialty Diagnoses / Procedures Referred By Contac t Referred To Contact Radiology Diagnoses Non-small cell cancer of right lung Procedures CT abdomen pelvis w IV contrast Rachel Pagan MD [address] [facility] [place] [address] Phone: tel: fax: [facility], [place] [address] [facility] [place] [address] Phone: tel: fax: Referral ID Status Reason Start Date Expiration Date V isits Requested Visits Authorized [id number] Closed Specialty Services Required 07/30/2025 10/28/2025 1 1 Encounter Details Date Type Department Care Team (Latest Contact Info) Description 08/06/2025 9:38 AM EDT - 08/06/2025 11:59 PM EDT Hospital Encounter [facility] D [address], [place] [address] Non-small cell cancer of right lung Discharge Disposition: Home or Self Care Social History Tobacco Use Types Packs/Day Years Used Date Smoking Tobacco: Every Day Cigarettes 0.5 30.8 Started: 2024; Last attempted to quit: 03/18/2025 [...] often do you attend chur ch or roman catholic services? More than 4 times per year 11/11/2022 Do you belong to any clubs o r organizations such as tenriism groups, unions, fraternal or athletic groups, or [...] place to sleep or slept in a [place] facility (including now)? No 11/11/2022 [facility] - Personal Safety Answer Date Recor ded How often does anyone, airam danielle family and friends, physically hurt you? Never 06/19/2025 How often does anyone, airam danielle family and friends, insult or talk down to you? Never 06/19/2025 How often does anyone, airam danielle family and friends, threaten you with harm? Never 06/19/2025 How often does anyone, airam danielle family and friends, scream or curse at you? Never 06/19/2025 AUDIT-C Answer Date Recorded Q1: How often [...] things needed for daily living? No 06/23/2025 [facility] Utilities Answer Date Recorded In the [...] equal to 60 bpm 60 tablet 5 cyclobenzaprine (Flexeril) 10 MG tablet TAKE 1 TABLET BY MOUTH THREE TIMES DAILY NEEDED FOR MUSCLE RELAXATION DULoxetine (Cymbalta) [address] capsule Take [...] equal to 100 mmHg 60 tablet 5 lisinopril 40 MG tablet Take 1 tablet (40 mg) by mouth in the morning. loratadine (Claritin Reditabs) 10 MG disintegrating tablet Take 1 tablet (10 mg) by mouth in the morning. magnesium oxide (Mag-Ox) tablet Take 1 tablet [...] crush, chew, or split. 30 tablet 5 valproic acid (Depakene) 250 MG/5ML oral liquid Take 5 mL (250 mg) by mouth every 8 (eight) hours. 450 mL 1 5 11/04/20 25 potassium chloride CR (Klor-Con M20) 20 MEQ ER tablet Take 1 tablet (20 mEq) by mouth in the morning and at bedtime. 60 tablet 5 08/27/20 25 documented as of this encounter Plan of Treatment Upcoming Encounters Date Type Department Care Team (Late st Contact Info) Description 10/04/2025 8:45 AM EST Office Visit [facility] [address] [place] [address] Rachel Pagan MD [address] [place] [address] 10/10/2025 10:30 AM EST Appointment [facility] MEDICAL ONCOLOGY [address] [place] [address] 11/02/2025 9:30 AM EST Office Visit [facility] [address], [address] [place] [address] Ky Jewell MD [address] [place] [address] 11/05/2025 2:45 PM EST Office Visit [facility] [address], [address] [place] [address] Ruddy Mayes MD [address] [place] [address] 12/31/2025 11:30 AM EST Office Visit [facility] [address] [place], [place] [id number] 01/22/2026 9:00 AM EDT Office Visit [facility] [address], 1st [place] [address] Allyn Toribio NP [address] [place] [id number] documented as of this encounter Goals Goal Patient Goal Type Associated Problems Recent Progress Patient-Stated? Author Patient's support system will participate in treatment General Emily Ny documented as of this encounter Procedures Procedure Name Priority Date/Time Associated Diagnosis Comments CT ABDOMEN PELVIS W IV CONTRAST Routine 08/06/2025 10:28 AM EDT Non-small cell cancer of right lung CT CHEST W IV CONTRAST Routine 08/06/2025 10:28 AM EDT Non-small cell cancer of right [...] free fluid. No mesenteric or retroperitoneal adenopathy. us Rachel Soriano MD IMG CT PROCEDURES [...] Sergo Rushing MD 08/06/2025 02:09 PM EDT RP Narrative 08/06/2025 2:09 PM EDT EXAM: CT [...] left infrahilar lymph node measuring 0.5 cm. Rachel Soriano MD IMG CT PROCEDURES Final Res ult documented in this encounter Visit Diagnoses Diagnosis Non-small cell cancer of right lung documented in this encounter Administered Medications Inactive Administered Medications - up to 3 most recent administrations Medication Order MAR Action Action Date Dose Rate Site iopamidol (Isovue-300) 61 % injection 85 mL 85 mL, Intravenous, Once in imaging, Starting on 08/06/25 at 1028, For 1 dose Given 08/06/2025 10:28 AM EDT 85 mL documented in this encounter Additional Health Concerns Assessment Noted Time PHQ-9 Depression Total Score: 0 06/23/20 10:00 AM EDT documented as of this encounter Care Teams Patient Safety Sitter Relationship Specialty Start Date End Date Lizandro Khan NP [address] [place] [address] PCP - General Family Medicine 07/23/25 Rachel Pagan MD [address] [place] [address] Consulting Physician Oncology 11/11/22 Pati Rucker APRN [address] [place] [address] Nurse Practitioner Oncology 12/21/22 Sosa Gardner APRN [address] [facility] [place] [address] Nurse Practitioner Oncology 06/24/23 Linda Elizabeth DO [address] [place] [address] Consulting Physician Oncology 03/01/25 08/28/25 Angie Murray, ROLDAN [address] [place] [address] Nurse Navigator Oncology 06/26/25 documented as of this encounter
--- OUTSIDE RECORDS SUMMARY | 2025-08-06 13:30 | XMS_ITS | Encounter Summary ---
Author Organization [facility] nter Address [address] [place] [address] Care Team Providers Care [place] House Operator Name Role Phone Rachel Pagan MD Unavailable Pati Rucker PRIVACY MANAGER Unavailable [phone] Sosa Gardner PRIVACY MANAGER Unavailable [phone] Linda Elizabeth DO Unavailable Angie Murray RN Unavailable Unavailab Lizandro Islas NP Primary Care Provider [phone] Encounter Details Date Type Department Care Team (Late st Contact Info) Description 08/06/2025 2:30 PM EDT Office Visit [facility] [address] [place] [address] Patience Wang NP [address] [place] [address] Myoclonus (Primary Dx) Social History Tobacco Use Types [...] week 11/11/2022 How often do you attend [facility] or buddhist services? More than 4 times per year 11/11/2022 Do you belong to any clubs o r organizations such as baptism groups, unions, fraternal or athletic groups, or [...] in a [facility] (including now)? No 11/11/2022 [facility] - Personal Safety Answer Date Recor ded [...] things needed for daily living? No 06/23/2025 [facility] Utilities Answer Date Recorded In [...] documented in this encounter Progress Notes * Patience Wang NP - 08/06/2025 2:30 PM EDT Subjective Hospital FOLLOW UP VISIT Who was the patient referred by: (hospital Reason for referral: Myclonus Recently in hospital: yes Last MRI date/facility: 06/12/2025 Brought medication list: yes Medications reconciled: yes Jose Sims is a 64 y.o. female. 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 This, she has had intermittent bouts of myoclonus however it appears the etiology was not determined. She was scheduled as an MRI of the cervical spine in February 2025 however it appears this examination was not completed. She denies being on any seizure medications. She also follows with Dr. Cabrera at the [facility]. We did load the patient with Depakote. Following Depakote load, myoclonus terminated. States was jerking first then hadfall with bleed. Patient being seen by oncology for brain mass. She reports since release jerking has been better not as severe but still daily in left upper extremity. MRI head results: MR brain w and wo contrast Addendum Date: 06/12/2025 Addendum created by Harlan Dimas MD on 06/12/2025 10:51:56 PM EDT: THIS REPORT CONTAINS FINDINGS THAT MAY BE CRITICAL TO PATIENT CARE. The findings were verbally communicated via telephone conferencewith ROLDAN Barker at 10:51 PM EDT on 06/12/2025. The findings were acknowledged and understood.Initial report created on 06/12/2025 10:38:52 PM EDT: PROCEDURE INFORMATION: Exam: MR Head Without and With Contrast Exam date and time: 06/12/2025 9:39 PM Age: 64 years old Clinical indication: Altered mental status/memory loss; Additional info: Brain metastases suspected TECHNIQUE: Imaging protocol: Magnetic resonance imaging of the head without and with contrast. Contrast material: PROHANCE; Cont rast volume: 13 ml; Contrast route: INTRAVENOUS (IV); COMPARISON: CT Head or Brain w/o Contrast 06/12/2025 3:08 AM FINDINGS: Brain: Positive study for several tiny acute lacunar infarcts including right cerebellum, right occipital lobe, right posterior frontal-parietal white matter. No hemorrhage orsignificant mass effect. Underlying atrophy, white matter chronic ischemia, old lacunar infarcts. Small area of ill-defined enhancement with only minimal T2 hyperintensity without significant mass effect right parietal lobe subcortical region (series 10 image 17, 18, series 11 image 18) appearance suggests possible area of subacute subcortical infarction rather than metastatic lesion. Suggest short- term follow-up. No other areas of suspicious abnormal enhancement. Cerebral ventricles: Normal. No ventriculomegaly. Bones: Previous right frontal craniotomy. Paranasal sinuses: Normal as visualized. No acute sinusitis. Mastoid air cells: Normal as visualized. No mastoid effusion. Orbital cavities: Unremarkable. Soft tissues: Unremarkable. IMPRESSION: 1. Positive study for several tiny acute lacunar infarcts including right cerebellum, right occipital lobe, right posterior frontal-parietal white matter. No hemorrhage or significant mass effect. 2. Small area of ill-defined enhancement with only minimal T2 hyperintensity, without significant mass effect, right parietal lobe subcortical region (series 10 image 17, 18, series 11 image 18) appearance suggests possible area of subacute subcortical infarction rather than metastatic lesion. Suggest short-term follow-up. No other areas of suspicious abnormal enhancement. 3. Underlying atrophy, white matter chronic ischemia, old lacunar infarcts. 4. Previous right frontal craniotomy. THIS DOCUMENT HAS BEEN ELECTRONICALLY SIGNED BY HARLAN DIMAS MD Result Date: 06/12/2025 PROCEDURE INFORMATION: Exam: MR Head Without and With Contrast Exam date and time: 06/12/2025 9:39 PM Age: 64 years old Clinical indication: Altered mental status/memory loss; Additional info: Brain metastases suspected TECHNIQUE: Imaging protocol: Magnetic resonance imaging of the head without and with contrast. Contrast material: PROHANCE; Contrast volume: 13 ml; Contrast route: INTRAVENOUS (IV); COMPARISON: CT Head or Brain w/o Contrast 06/12/2025 3:08 AM FINDINGS: Brain: Positive study for several tiny acute lacunar infarcts including right cerebellum, right occipital lobe, right posterior frontal- parietal white matter. No hemorrhage or significant mass effect. Underlying atrophy, white matter chronic ischemia, old lacunar infarcts. Small area of ill- defined enhancement with only minimal T2 hyperintensity without significant mass effect right parietal lobe subcortical region (series 10 image 17, 18, series 11 image 18) appearance suggests possible area of subacute subcortical infarction rather than metastatic lesion. Suggest short-term follow-up. No other areas of suspicious abnormal enhancement. Cerebral ventricles: Normal. No ventriculomegaly. Bones: Previous right frontal craniotomy. Paranasal sinuses: Normal as visualized. No acute sinusitis. Mastoid air cells: Normal as vi sualized. No mastoid effusion. Orbital cavities: Unremarkable. Soft tissues: Unremarkable. 1. Positive study for several tiny acute lacunar infarcts including right cerebellum, right occipital lobe, right posterior frontal-parietal white matter. No hemorrhage or significant mass effect. 2.Small area of ill-defined enhancement with only minimal T2 hyperintensity, without significant masseffect, right parietal lobe subcortical region (series 10 image 17, 18, series 11 image 18) appearance suggests possible area of subacute subcortical infarction rather than metastatic lesion. Suggestshort-term follow-up. No other areas of suspicious abnormal enhancement. 3. Underlying atrophy, white matter chronic ischemia, old lacunar infarcts. 4. Previous right frontal craniotomy. THIS DOCUMENT HAS BEEN ELECTRONICALLY SIGNED BY HARLAN DIMAS MD MR brain w and wo contrast Result Date: 02/28/2025 PROCEDURE: MR BRAIN WITHOUT THEN WITH IV CONTRAST: 02/28/2025 CLINICAL INFORMATION: Brain/RN LPN CNA neoplasm, staging;Brain metastases suspected Comparison: 11/13/2024 The configuration of the ventricles and sulci show cortical volume loss. There is no evidence of acute intracranial hemorrhage. The patient is status post frontal craniotomy and removal of the previously identified enhancing mass within this region. There is however been interval development of multiple enhancing supratentorial masses within the right left cerebral hemispheres measuring up to 1 cm x 8 mm within the right parietal lobe. The other lesions are subcentimeter in size and there is minimal associated edema. There is otherwise no evidence of mass, or mass effect. No other abnormal postcontrast enhancement is recognized. There is diffusely scattered periventricular and subcortical white matter disease. Diffusion-weightedimages show no evidence of acute ischemic change. Included osseous structures are intact. Paranasalsinuses and mastoids are clear. The included soft tissues image normally. Interval progression of metastatic disease. Electronically signed by: Don Cabrera MD 511:52 AM EDT MR brain w contrast Result Date: 12/27/2024 [facility] - Phone Outpatient NAME: Jose Sims DATE OF EXAM: 12/26/2024 Patient No: [id number] Physician: Priscila Date of : 1960 Past Medical/SurgicalHistory (entered by technologist): Symptoms/Reason For Exam (entered by technologist): Brain metastases, assess treatment response Tech Notes (entered by technologist): Contrast: gadobutrol (Gadavist) injection 13.6 mmol NSCLC s/p right frontal craniotomy for metastatic tumor resection on 11/21/24. Indication: Brain metastases. Gamma knife procedure scan. Technique: Axial and coronal T1 postcontrast MPRAGE MRI sequences. Comparison: 11/21/2024. Findings: Interval decrease in the size of resection ca vity involving the right frontal lobe measuring approximately 0.7 x 0.7 cm, previously was 1.1 x 1.1 cm. Previously noted punctate focus of enhancement along the posterior/medial margin is no longer visualized. Minimal linear enhancement along the lateral posterior margin is similar to prior study. Superimposed dural thickening, likely postsurgical in nature. No new areas of abnormal postcontrastenhancement. No mass effect, midline shift, ration combined or Cephalus. Stable ventricular size and configuration. Basal cisterns are patent. Stable calvarium. Interval decrease in the size of resection cavity involving the right frontal lobe measuring approximately 0.7 x 0.7 cm, previously was 1.1 x 1.1 cm. Previously noted punctate focus of enhancement along the posterior/medial margin is no longer visualized. Minimal linear enhancement along the lateral posterior margin is similar to prior study. Claudio Crowell M.D. This report has been electronically signed and verified by the Radiologist whose name is printed above. This report contains privileged and confidential information and is intended solely for the use of the individual or entity to whichit is addressed. If you are not the intended recipient of this report, you are hereby notified thatany copying, distribution, dissemination or action taken in relation to the contents of this reportis strictly prohibited and may be unlawful. If you have received this report in error, please notify the sender immediately at [phone] and permanently delete the original report and destroy any copies or printouts. MR brain w and wo contrast Result Date: 11/22/2024 CLINICAL INDICATION: Craniotomy, post-op TECHNIQUE: Multiplanar multiecho sequences were performed through the brain utilizing T1 and T2 weighting, as well as either axial susceptibility weighted or gradient echo sequences, and axial diffusion weighted images. A coronal post-contrast 1mm thick T1-weighted 3D MP RAGE sequence was performed and multiplanar reformatted images were created. Imaging was performed with and without contrast administration: 6.8 mL of Gadavist. COMPARISON: MR brain 11/19/2024 FINDINGS: Diagnostic Quality: Adequate. Interval post surgical changes from right craniotomy for resection of right frontal lesion. Susceptibility artifacts adjacent to the craniotomy may be related to blood products/surgical hardware. There is minimal extra-axial collection adjacent to the craniotomy. Mild right convexity dural enhancement adjacent to the craniotomy probably postsurgical/reactive. Susceptibility artifact in the right frontal surgical bed probably related to blood products a nd pneumocephalus. Minimal T1 shortening in the surgical bed suggestive of blood products. Mild restricted diffusion along the periphery of the surgical bed probably related to blood products/postsurgical change. There is been interval resection of the previously noted enhancing lesion along the lateral right frontal lobe. Minimal punctate enhancement along the posteromedial aspect of the surgical bed, which is nonspecific (series 17, image 48; series 16, image 85). Additional minimal linear appearing enhancement in the more lateral aspect may represent vessel or could be postsurgical change (series 16, image 85). Otherwise no definite residual enhancing lesion is appreciable. No significant interval change in the adjacent T2 per FLAIR hyperintensity in the right frontal lobe suggestive of edema. No other suspicious intracranial enhancement. The ventricles are normal in size. The basilar cisterns are patent. No hydrocephalus or significant midline shift. Redemonstration of chronic infarcts involving the right cerebellum and bilateral caudate nuclei and along the posterolateral aspect of right thalamus. Vascular Flow Voids: Normal. Paranasal Sinuses and Mastoid Air Cells: Grossly clear. Orbits: No definite masses within the limitations of the study. Extracranial Findings: Postsurgical changes from right craniotomy with right scalp soft tissue swelling and probable small amount of fluid overlying the craniotomy. Cutaneous rony noted.. Similar small T1 hyperintense focus in the right occipital calvarium (series 17, and image 104) possibly a hemangioma. Craniocervical Junction and Skull Base: No tonsillar ectopia or mass is present. Postsurgical changes from interval resection of right frontal lesion. Punctate focus of enhancementalong the posteromedial surgical cavity margin is nonspecific. Otherwise no definite residual enhancing lesion is appreciable. This can be further assessed during expected follow-up imaging. Redemonstration of a few chronic infarcts as above. CRITICAL RESULT: No. COMMUNICATION: Per this written report. By electronically signing this report, I, the attending physician, attest that I have personally reviewed the images/data for the above examination(s) and agree with the final edited report. Drafted by Rodríguez Madrid M.D. on 11/22/2024 8:24 AM Final report signed by All Rojas MD on 11/22/2024 11:33 AM MR brain w and wo contrast Result Date: 11/19/2024 CLINICAL INDICATION: fiducial scan PMH significant for stage IV NSCLC new brain metastasis on outside MRI TECHNIQUE: Multiplanar multiecho sequences were performed through the brain utilizing T1 and T2 weighting, as well as either axial susceptibility weighted or gradient echo sequences, and axial diffusion weighted images. A coronal post-contrast 1mm thick T1-weighted 3D MP RAGE sequence was performed and multiplanar reformatted images were created. Imaging was performed with and without contrast administration: 6.8 mL of Gadavist. COMPARISON: Outside head MRI November 13, 2024. FINDINGS: Diagnostic Quality: Adequate. Enhancing mass is located in the right middle frontal gyrus, measuring about 12 mm. It has T1 signal and susceptibility blooming artifacts from blood products. Surrounding prominent vasogenic edema. The mass and swelling have local mass effect with effacement of sulci. Nomidline shift. No other abnormal intracranial enhancement is present. Chronic infarct in the right upper cerebellum. Chronic lacunar infarcts in the left caudate and posterior limb of the right internal capsule. There is no other abnormal parenchymal susceptibility artifact. No restricted diffusion. Vascular Flow Voids: Normal. Paranasal Sinuses and Mastoid Air Cells: Grossly clear. Orbits: No definite masses within the limitations of the study. Extracranial Findings: Fiducial markers noted. Small lesion in the right occipital skull has T1 shortening, favoring benign hemangioma. Craniocervical Junction and Skull Base: No tonsillar ectopia or mass is present. 1. Enhancing mass in the right middle frontal gyrus, likely metastatic deposit. 2. Chronic infarcts. CRITICAL RESULT: No. COMMUNICATION: Per this written report. Preliminary report signed by JANET Martin on 11/19/2024 3:39 PM By electronically signing this report, I, the attending physician,attest that I have personally reviewed the images/data for the above examination(s) and agree with the final edited report. Drafted by JANET Martin on 11/19/2024 3:22 PM Final report signed byLorena Hammond MD on 11/19/2024 3:47 PM MR brain w and wo contrast Result Date: 11/13/2024 PROCEDURE: MR BRAIN WITHOUT THEN WITH IV CONTRAST: 11/13/2024 CLINICAL INFORMATION: Metastatic disease evaluation The configuration of the ventricles and sulci show cortical volume loss. There is a new 1.3 x 1.1 x 0.9 cm enhancing lesion within the right frontal cortex with mild surrounding vasogenic edema and a small amount of underlying hemorrhage. There is otherwise no evidence of mass, or mass effect. No other abnormal postcontrast enhancement is recognized. There is diffusely scattered periventricular and subcortical white matter disease. Diffusion-weighted images show no evidence of acute ischemic change. Included osseous structures are intact. Paranasal sinuses and mastoids are clear. The included soft tissues image normally. Cortical volume loss with scattered periventricular and subcortical white matter disease that most likely represents small vessel ischemic disease. 0.3 x 1.1 x 0.9 cm enhancing lesion within the right frontal cortex with mild surrounding vasogenic edema and a small amount of underlying hemorrhage. This likely represents a metastatic lesion and is new from prior exam. Electronically signed by: Don Cabrera MD 11/13/2024 10:04 AM [facility] CT head results: CT head wo IV contrast Result Date: 07/09/2025 CLINICAL INDICATION: Neuro deficit, acute, stroke [...] report depending on the interpreting/reporting physicians. COMPARISON: 12/26/2024MR FINDINGS: Redemonstrated postsurgical changes following right frontal craniotomy with resection.No acute intracranial abnormality. No evidence of acute hemorrhage or ischemia. Generalized cerebral atrophy is present. There are supratentorial white matter low attenuation alterations, most markedin the periventricular white matter, which are nonspecific but are often attributed to sequela of small vessel ischemic disease. Otherwise the bradshaw white matter differentiation is maintained. No mass, mass effect, or midline displacement of structures. Normal ventricular size and configuration for age. No displaced or depressed calvarial fractures. The visualized paranasal sinuses and mastoid aircells are clear. No acute intracranial abnormality. CRITICAL RESULT: No. [...] Aba Saab MD on 07/09/2025 9:[address] head wo IV contrast Result Date: 06/12/2025 PROCEDURE INFORMATION: Exam: CT Head Without Contrast Exam date and time: 06/12/2025 3:08 AM Age: 64years old Clinical indication: Pain; Headache; Additional info: Fall TECHNIQUE: Imaging protocol: Computed tomography of the head without contrast. Radiation optimization: All CT scans at this facility use at least one of these dose optimization techniques: automated exposure control; mA and/or kV adjustment per patient size (includes targeted exams where dose is matched to clinical indication); or iterative reconstruction. COMPARISON: CT Head or Brain w/o Contrast 02/28/2025 5:59 PM FINDINGS: Patient motion artifacts degrade some images of this examination. These artifacts cause image blurring and limit interpretation. Brain: No CT evidence of mass, edema, or acute infarct. No hemorrhage. Postsurgical changes with focal encephalomalacia RIGHT frontal region. Ventricles and sulci prominentsuggesting cortical atrophy. Diffuse periventricular lucency which is nonspecific but most likely due to chronic microvascular ischemic changes. Cerebral ventricles: No hydrocephalus. Paranasal sinuses: Reported separately. Mastoid air cells: Unremarkable as visualized. No mastoid effusion. Bones: No acute bone abnormality. Stable RIGHT frontoparietal craniotomy. Soft tissues: No definite acute abnormality. Vasculature: Atherosclerosis. No evidence of acute intracranial abnormality. No significant interval adverse change since 02/28/2025. Nonacute findings as noted above. Please also see CT facial report. THIS DOCUMENT HAS BEEN ELECTRONICALLY SIGNED BY JOSH RANDOLPH MD CT head wo IV contrast Result Date: 02/28/[address] HEAD WITHOUT IV CONTRAST performed on 02/28/2025 4:57 PM CDT. INDICATION: acute leftarm tremor and weakness, hx of brain cancer TECHNIQUE: Noncontrast CT head. Dose modulation, automated exposure control, and/or iterative reconstruction technique used for dose reduction. COMPARISON:MR brain 11/13/2024. CT head 04/24/2024. FINDINGS: * Interval right anterior craniotomy with underlying right frontal lobe encephalomalacia and gliosis compatible with tumor resection. * No acute intracranial hemorrhage. * Right cerebellar volume loss. * Whitman-white differentiation is preserved. * Atherosclerosis. * No hydrocephalus, cisternal effacement or midline shift. * No significant mucosal sinus disease or mastoid effusion. * Calvarium is intact. 1. No acute intracranial hemorrhage. 2. No CT findings of acute territorial infarction. 3. Stigmataof interval right frontal tumor resection. Electronically signed by: Trey Wiley DO 02/28/2025 06:39 PM EDT Brain vessel imaging results: CT neck angio Result Date: 06/13/2025 PROCEDURE: CT NECK ANGIOGRAPHY WITH IV CONTRAST: 06/13/2025 Radiation Optimization: All CT scans at this facility use at least one of these dose optimization techniques: automated exposure control; mAand/or kV adjustment per patient size (includes targeted exams where dose is matched to clinical ind ication); or iterative reconstruction. CLINICAL INFORMATION: ISCHEMIC STROKE;per stroke protocol The exam is mildly limited by patient movement. There is [id number] plaque involving the aortic arch, its branching vessels, carotid bifurcations. The innominate artery and the visualized portion of the right subclavian artery is patent. The right common carotid artery is patent. The right internal carotid artery is patent along its course. The right vertebral artery is patent. The visualized portion of the left subclavian artery is patent. The left common carotid artery is patent. The left internal carotid artery is patent along its course. The left vertebral artery is patent. The 2 mm basilar tip aneurysm screening on prior CTA of the neck dated 02/28/2025 is not well visualized. No evidence of significant internal carotid artery stenosis. Electronically signed by: Don Cabrera MD 06/13/2025 11:[address] head angio Result Date: 06/13/2025 PROCEDURE: CT HEAD ANGIOGRAPHY WITH IV CONTRAST: 06/13/2025 Radiation Optimization: All CT scans at this facility use at least one of these dose optimization techniques: automated exposure control; mAand/or kV adjustment per patient size (includes targeted exams where dose is matched to clinical ind ication); or iterative reconstruction. CLINICAL INFORMATION: ISCHEMIC STROKE;stroke protocol The exam is moderately limited by patient movement. The visualized portion of the intracranial internal carotid arteries are patent. There is questionable high-grade stenosis versus short segmental occlusion of the proximal right middle cerebral artery. The bilateral middle cerebral arteries and anterior cerebral arteries are otherwise patent. The posterior circulation shows patency of the bilateral posterior cerebral arteries, basilar artery, and intracranial vertebral arteries. There is no evidence of aneurysm, or arteriovenous malformation. The exam is moderately limited by patient movement. Questionable short segmental high-grade stenosis versus occlusion involving the proximal right middle cerebral artery. Electronically signed by: Don Cabrera MD 06/13/2025 11:[address] head angio Result Date: 02/28/[address] HEAD ANGIOGRAPHY WITH IV CONTRAST, CT NECK ANGIOGRAPHY WITH IV CONTRAST performed on 02/28/2025 4:57 PM CDT. INDICATION: acute left arm tremor and weakness, hx of brain cancer TECHNIQUE: CT angiogram of the head and neck with IV contrast. 3D reconstructions, MIPs, volume rendered images and/or shaded surface rendering was performed on an independent workstation. Dose modulation, automated exposure control, and/or iterative reconstruction technique used for dose reduction. COMPARISON: CT head 04/24/2024. Same day MR brain. FINDINGS: Neck: * Aortic arch: Atherosclerosis of the aortic arch and branch vessel origins without evidence of flow-limiting stenosis. Standard aortic branching pattern. * Carotid arteries: Atherosclerosis of the bilateral carotid bifurcations with 0-25% stenosis on the right and 0% stenosis on the left by NASCET criteria. Partial retropharyngeal course on the right. * Vertebral arteries: Patent dominant right and moderately hypoplastic left vertebral arteries. * Other: Edentulous. Cervical degenerative changes. Head: * Carotid arteries: Atherosclerosis of the carotid siphons without evidence of flow-limiting stenosis. * Vertebrobasilar system: Atherosclerosis of the V4 segments of the bilateral vertebral arteries. No evidence of flow-limiting stenosis in the vertebrobasilar arteries and major branch vessel origins.. * [place] of [place]: Standard configuration. No significant stenosis. * Peripheral branches:Grossly patent anterior, middle and posterior cerebral arteries. * Other: The enhancing parenchymallesions seen on same-day MRI are definitively appreciated and better demonstrated on that exam. 1. Atherosclerosis. 2. No evidence of flow-limiting cervical or intracranial arterial stenosis. 3. 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 Electronically signed by: Trey Wiley DO 02/28/2025 06:[address] neck angio Result Date: 02/28/[address] HEAD ANGIOGRAPHY WITH IV CONTRAST, CT NECK ANGIOGRAPHY WITH IV CONTRAST performed on 02/28/2025 4:57 PM CDT. INDICATION: acute left arm tremor and weakness, hx of brain cancer TECHNIQUE: CT angiogram of the head and neck with IV contrast. 3D reconstructions, MIPs, volume rendered images and/or shaded surface rendering was performed on an independent workstation. Dose modulation, automated exposure control, and/or iterative reconstruction technique used for dose reduction. COMPARISON: CT head 04/24/2024. Same day MR brain. FINDINGS: Neck: * Aortic arch: Atherosclerosis of the aortic arch and branch vessel origins without evidence of flow-limiting stenosis. Standard aortic branching pattern. * Carotid arteries: Atherosclerosis of the bilateral carotid bifurcations with 0-25% stenosis on the right and 0% stenosis on the left by NASCET criteria. Partial retropharyngeal course on the right. * Vertebral arteries: Patent dominant right and moderately hypoplastic left vertebral arteries. * Other: Edentulous. Cervical degenerative changes. Head: * Carotid arteries: Atherosclerosis of the carotid siphons without evidence of flow-limiting stenosis. * Vertebrobasilar system: Atherosclerosis of the V4 segments of the bilateral vertebral arteries. No evidence of flow-limiting stenosis in the vertebrobasilar arteries and major branch vessel origins.. * [place] of [place]: Standard configuration. No significant stenosis. * Peripheral branches: Grossly patent anterior, middle and posterior cerebral arteries. * Other: The enhancing parenchymal lesions seen on same-day MRI are definitively appreciated and better demonstrated on that exam. 1. Atherosclerosis. 2. No evidence of flow-limiting cervical or intracranial arterial stenosis. 3. 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 Electronically signed by: Trey Wiley DO 02/28/2025 06:49 PM EDT RP Review of Systems Neurological: Positive for tremors. Objective Neurological Exam Eyes: General: Lids are normal. Extraocular Movements: Extraocular movements intact. Pupils: Pupils are equal, round, and reactive to light. Psychiatric: Speech: Speech normal. Mental Status Awake, alert and oriented to person, place and time. Speech is normal. Language is fluent with no aphasia. Cranial Nerves CN II: Visual acuity is normal. Visual baptiste full to confrontation. CN III, IV, : Extraocular movements intact bilaterally. Normal lids and orbits bilaterally. Pupils equal round and reactive to light bilaterally. CN V: Facial sensation is normal. CN VII: Full and symmetric facial movement. CN VIII: Hearing is normal. CN IX, X: Palate elevates symmetrically. Normal gag reflex. CN XI: Shoulder shrug strength is normal. CN XII: Tongue midline without atrophy or fasciculations. Motor 4/5 motor strength in all EXT. Sensory Diminished sensation to light touch in LUE. Reflexes Right Left Brachioradialis 0 0 Patellar 0 0 Coordination Right: Levrwv-dn-gwoc normal. Jkte-gy-kndx normal.Left: Evpymx-jz-elrf normal. Tebm-wt-evrq normal. Gait Wheelchair. 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 PRECAUTIONS: 1) Do not drive until your doctor says it's OK 2) Avoid open flame or open bodies of water 3) Avoid situations where loss of consciousness may predispose to injury 4) Avoid swimming alone 5) Take showers, not baths 6) Avoid sleep deprivation or other known seizure risk factors including alcohol Recommended to continue Valproic Acid 250mg q8 hours Will send refills for 3 months Will request CBC, CMP, LFTs, and VA level prior to next visit documented in this encounter Miscellaneous Notes * Patient Education - Kasie Medrano - 08/06/2025 3:42 PM EDT Images from the original note were not included. Patient Education Table of Contents Myoclonus To view videos and all your education online visit, [email or web address] or scan this QR code with your smartphone. Access to this content will in one year. Myoclonus Myoclonus is the sudden and quick movement of the muscles. It may include muscle jerks, twitches, or spasms that happen without a person's control (involuntary). There are different types of myoclonus. One type, called physiologic myoclonus, occurs normally in most people and rarely needs treatment. This type includes: Hiccups. Sleep starts, or twitching during sleep. Other types are caused by an underlying condition and may require treatment. What are the causes? The cause of this condition varies depending on the type of myoclonus. Physiologic myoclonus, such as hiccups, results from normal actions of the body. Other causes include: Genetic condition or disease. This causes a type of myoclonus called essential myoclonus. Epilepsy. This causes epileptic myoclonus. Other underlying conditions cause secondary or symptomatic myoclonus. These include: ? Side effects of certain medicines. ? Metabolic conditions. ? Head, brain, or spinal injuries. ? Stroke. ? Nervous system conditions such as dementia, Parkinson's disease, and Alzheimer's disease. ? Infections. ? Poisoning. ? Brain tumors. What are the signs or symptoms? The main symptom of this condition is sudden spasms, jerking, or uncontrollable movements. Symptomsmay: Occur in only one area of the body or over the entire body. Come and go. Vary in intensity. Make it hard for you to eat, speak, or walk. How is this diagnosed? This condition is diagnosed based on your medical history, a review of your symptoms, and a physical exam. You may also have tests, including: Electroencephalogram (EEG). This test checks the electrical activity of the brain. Electromyogram (EMG). This test measures electrical activity in the muscles. Imaging tests such as an MRI or CT scan. Lumbar puncture (spinal tap) to check spinal fluid for infection or inflammation. Blood tests. Urine tests. How is this treated? Treatment for this condition depends on the underlying condition and the severity of your symptoms.Treatment may include: Medicines, such as tranquilizer and anti-seizure medicines. Treating the underlying cause, such as having a tumor removed or taking antibiotic medicine for an infection. Injections of a substance called botulinum toxin. Physiologic myoclonus does not require treatment. Follow these instructions at home: Take mfmy-xww-ocxlbcw and prescription medicines only as told by your health care provider. If you are taking tranquilizer or anti-seizure medicines, do not drive or use machinery until your body adjusts to the medicine. These medicines may cause drowsiness. Keep a journal of your symptoms and the things that seem to trigger them or make them worse. Also, try to identity the things that make them better. Share this information with your health care provider. Keep all follow-up visits. This is important. Where to find more information National [place] of Neurological Disorders and Stroke: www.ninds.nih.gov Contact a health care provider if: You have severe pain and medicines do not help. You have problems taking your medicines. Your twitches, jerks, or spasms get worse. Get help right away if: You have a seizure. You have a reaction to your medicines, such as a rash, trouble breathing, or swelling. You have trouble staying alert. These symptoms may be an emergency. Get help right away. Call 911. Do not wait to see if the symptoms will go away. Do not drive yourself to the hospital. Summary Myoclonus is the sudden and quick movement of the muscles. It may include muscle jerks, twitches, or spasms that happen without a person's control (involuntary). There are different types of myoclonus. Physiologic myoclonus occurs normally in most people and rarely needs treatment. Other types of myoclonus are caused by an underlying condition. Treatment for this condition depends on the underlying condition and the severity of your symptoms. If you are taking tranquilizer or anti-seizure medicines, do not drive or use machinery until your body adjusts to the medicine. These medicines may cause drowsiness. This information is not intended to replace advice given to you by your health care provider. Make sure you discuss any questions you have with your health care provider. Document Released: 2003-10-22 Document Updated: 2022-08-21 Document Reviewed: 2022-08-21 [email or web address] Patient Education ? 2024 [email or web address] documented in this encounter Plan of Treatment Upcoming Encounters Date Type Department Care Team (Late st Contact Info) Description 10/04/2025 8:45 AM EST Office Visit [facility] [address] [place] [address] Rachel Pagan MD [address] [place], [place] [id number] 10/10/2025 10:30 AM EST Appointment [facility] [address] [place] [phone] 11/02/2025 9:30 AM EST Office Visit [facility] [address] 1st [address] [place] [phone] Ky Jewell MD [address] [place] [phone] 11/05/2025 2:45 PM EST Office Visit [facility] [address] [place] [address] Ruddy Mayes MD [address] [place] [phone] 12/31/2025 11:30 AM EST Office Visit [facility] [address] [place], [place] [id number] 01/22/2026 9:00 AM EDT Office Visit [facility] [address]st [place] [address] Allyn Toribio NP [address] [place] [phone] Scheduled Orders Name Type Priority Associated Diagnoses Orde r Schedule CBC Lab Routine Myoclonus Expected: 08/06/2025 (Approximate), Expires: 08/06/2026 Comprehensive metabolic panel Lab Routine Myoclonus Expected: 08/06/2025 (Approximate), Expires: 08/06/2026 Hepatic function panel Lab Routine Myoclonus Expected: 08/06/2025 (Approximate), Expires: 08/06/2026 Valproic acid level, total Lab Routine Myoclonus Expected: 08/06/2025 (Approximate), Expires: 08/06/2026 documented as of this encounter Goals Goal Patient Goal Type Associated Problems Recent Progress Patient-Stated? Author Patient's support system will participate in treatment General Emily Ny documented as of this encounter Visit Diagnoses Diagnosis Myoclonus- Primary documented in this encounter Additional Health Concerns Assessment Noted Time PHQ-9 Depression Total Score: 0 06/23/20 25 10:00 AM EDT documented as of this encounter Care Teams Kiln Head House Operator Relationship Specialty Start Date End Date Lizandro Khan NP [address] [place] [address] PCP - General Family Medicine 07/23/25 Rachel Pagan MD [address] [place] [phone] Consulting Physician Oncology 11/11/22 Pati Rucker APRN [address] [place] [address] [place] [address] Nurse Practitioner Oncology 12/21/22 Sosa Gardner APRN [address] [facility] [place] [address] Nurse Practitioner Oncology 06/24/23 Linda Elizabeth DO [address] [facility] [place] [address] Consulting Physician Oncology 03/01/25 08/28/25 Angie Murray, ROLDAN [address] [place] [address] Nurse Navigator Oncology 06/26/25 documented as of this encounter
--- OUTSIDE RECORDS SUMMARY | 2025-08-08 07:15 | XMS_ITS | Encounter Summary ---
Author Organization [facility] nter Address [address] [place] [address] Care Team Providers Care Admitting Interviewer Name Role Phone Rachel Pagan MD Unavailable Pati Rucker BILLET BED OPERATOR Unavailable [phone] Sosa Gardner BILLET BED OPERATOR Unavailable [phone] Linda Elizabeth DO Unavailable Angie Murray RN Unavailable Unavailab Lizandro Islas NP Primary Care Provider [phone] Reason for Visit * Auth/Cert (Routine) Specialty Diagnoses / Procedures Referred By Contac t Referred To Contact Diagnoses Malignant neoplasm of unspecified part of unspecified bronchus or lung Procedures [place] PEMETREXED INJECTION [facility] [address] [place] [address] Phone: tel: [facility] [address]th [place] [address] Phone: tel: fax: Referral ID Status Reason Start Date Expiration Date Visits Re quested Visits Authorized [id number] 1 1 Encounter Details Date Type Department Care Team (Latest Contact Info) Description 08/08/2025 8:15 AM EDT - 08/08/2025 10:29 AM EDT Hospital Encounter [facility] [address], [address] [place] [address] Non-small cell lung cancer, unspecified laterality Discharge Disposition: Home or Self Care Social [...] How often do you attend chur or mormon services? More than 4 times per year [...] place to sleep or slept in a chcf (including now)? No 11/11/2022 [facility] - Personal Safety Answer Date Recor ded [...] things needed for daily living? No 06/23/2025 [facility] Utilities Answer Date Recorded In the past 12 months has e [employer], gas, oil, or water [employer] threatened to shut off services in your [...] Description 10/04/2025 8:45 AM EST Office Visit [facility] [address] [facility], 10th [place] [address] Rachel Pagan MD [address] [place] [address] 10/10/2025 10:30 AM EST Appointment [facility] [address] [place] [address] 11/02/2025 9:30 AM EST Office Visit [facility] [address] [facility], 1st [place] [address] Ky Jewell MD [address] [place] [address] 11/05/2025 2:45 PM EST Office Visit [facility] [address], 8th [place] [address] Ruddy Mayes MD [address] [facility] [place] [address] 12/31/2025 11:30 AM EST Office Visit [facility] [address] [id number] 01/22/2026 9:00 AM EDT Office Visit [facility] [address], 1st [place] [address] Allyn Toribio NP [address] [place] [address] documented as of this encounter Goals Goal Patient Goal Type Associated Problems Recent Progress Patient-Stated? Author Patient's support system will participate in treatment General Emily Ny documented as of this encounter Procedures Procedure Name Priority Date/Time Associated Diagnosis Comments CBC WITH AUTO DIFFERENTIAL Routine 08/08/2025 10:02 AM EDT Non-small cell lung cancer, unspecified laterality TSH Routine 08/08/2025 10:02 AM EDT Non-small cell lung cancer, unspecified laterality T4, FREE Routine 08/08/2025 10:02 AM EDT Non-small cell lung cancer, unspecified laterality COMPREHENSIVE METABOLIC PANEL Routine 08/08/2025 10:02 AM EDT Non-small cell lung cancer, unspecified laterality documented in this encounter Results * T4, free (08/08/2025 10:02 AM EDT) Free T4 0.96 0.61 - 1.12 ng/dL 08/08/2025 11:21 AM EDT [facility] Blood Venous blood specimen / Unknown Venipuncture / Unknown 08/08/2025 10:02 AM EDT 08/08/2025 10:41 AM EDT Rachel Soriano MD LAB BLOOD ORDERABLES Final Result Performing Organization Address [facility] de Phone Number [facility] [address] [place] [address], * TSH (08/08/2025 10:02 AM EDT) Pathologist [facility] TSH 2.828 0.450 - 5.330 uIU/mL 08/08/2025 11:18 AM EDT [facility] Comment: Non-Pregant Female: 0.45 - 5.33 IU/mL Female - 1st Trimester: 0.05 - 3.70 IU/mL Female - 2nd Trimester: 0.31 4.35 IU/mL Female - 3rd Trimester: 0.41 5.18 IU/mL Blood Venous blood specimen / Unknown Venipuncture / Unknown 08/08/2025 10:02 AM EDT 08/08/2025 10:41 AM EDT Rachel Soriano MD LAB BLOOD ORDERABLES Final Result Performing Organization Address [facility] Co [place] Phone Number [facility] [address] [place] [address], * (ABNORMAL) Comprehensive metabolic panel (08/08/2025 10:02 AM EDT) Pathologist [facility] Sodium 140 134 - 143 mmol/L 08/08/2025 11:11 AM EDT [facility] Potassium 4.3 3.2 - 4.6 mmol/L 08/08/2025 11:11 AM EDT [facility] Chloride 104 99 - 108 mmol/L 08/08/2025 11:11 AM EDT [facility] CO2 30(H) 19 - 29 mmol/L 08/08/2025 11:11 AM EDT [facility] Anion Gap 6 5 - 15 mmol/L 08/08/2025 11:11 AM EDT [facility] BUN 18 7 - 20 mg/dL 08/08/2025 11:11 AM [facility] Creatinine 1.17 <=1.20 mg/dL 08/08/2025 11:11 AM [facility] BUN/Creatinine Ratio 15.38 10.00 - 20.00 ratio 08/08/2025 11:11 AM [facility] Glucose 85 58 - 104 mg/dL 08/08/2025 11:11 AM [facility] Calcium 9.0 7.9 - 11.1 mg/dL 08/08/2025 11:11 AM [facility] AST 17 10 - 28 U/L 08/08/2025 11:11 AM [facility] ALT (SGPT) 11 <=40 U/L 08/08/2025 11:11 AM [facility] Alkaline Phosphatase 69 29 - 108 U/L 08/08/2025 11:11 AM [facility] Total Protein 6.7 5.9 - 7.9 g/dL 08/08/2025 11:11 AM [facility] Albumin 2.9(L) 3.5 - 5.1 g/dL 08/08/2025 11:11 AM [facility] Globulin, Total 3.8 2.4 - 4.8 g/dL 08/08/2025 11:11 AM [facility] A/G Ratio 0.8 0.6 - 1.6 08/08/2025 11:11 AM [facility] Total Bilirubin 0.5 0.3 - 1.0 mg/dL 08/08/2025 11:11 AM [facility] eGFR (CKD-EPI) 48.7(L) >60.0 - 200.0 mL/min/1.7 3m*2 08/08/2025 11:11 AM [facility] Blood Venous blood specimen / Unknown Venipuncture / Unknown 08/08/2025 10:02 AM EDT 08/08/2025 10:41 AM EDT us Rachel Soriano MD LAB BLOOD ORDERABLES Final Result [facility] [address] [place] [address], * (ABNORMAL) CBC auto differential (08/08/2025 10:02 AM EDT) Auto WBC 3.6(L) 3.8 - 11.0 10*3/uL 08/08[facility]2025 [facility] RBC 2.57(L) 3.73 - 5.13 10*6/uL 08/08/2025 10:51 AM [facility] Hemoglobin 9.2(L) 11.2 - 15.3 g/dL 08/08/2025 10:51 AM [facility] Hematocrit 27.5(L) 32.6 - 44.6 % 08/08/2025 10:51 AM [facility] MCV 106.9(H) 78.8 - 96.0 fL 08/08/2025 10:51 AM [facility] MCH 35.6(H) 26.2 - 33.0 pg 08/08/2025 10:51 AM [facility] MCHC 33.3 32.7 - 35.1 g/dL 08/08/2025 10:51 AM [facility] RDW 21.6(H) 12.1 - 16.1 % 08/08/2025 10:51 AM [facility] Platelets 83(L) 138 - 402 10*3/uL 08/08/2025 10:51 AM [facility] MPV 7.8 7.0 - 10.6 fL 08/08/2025 10:51 AM [facility] Neutrophils % 61 47 - 79 % 08/08/2025 10:51 AM [facility] Lymphocytes % 22 13 - 41 % 08/08/2025 10:51 AM [facility] Monocytes % 10 3 - 11 % 08/08/2025 10:51 AM [facility] Eosinophils % 8(H) 0 - 6 % 08/08/2025 10:51 AM EDT [facility] Basophils % 0 0 - 2 % 08/08/2025 10:51 AM EDT [facility] Neutrophils Absolute 2.20 1.90 - 7.50 10*3/uL 08/08/2025 10:51 AM EDT [facility] Lymphocytes Absolute 0.80 0.80 - 3.20 10*3/uL 08/08/2025 10:51 AM EDT [facility] Monocytes Absolute 0.30 0.10 - 0.90 10*3/uL 08/08/2025 10:51 AM EDT [facility] Eosinophils Absolute 0.30 0.00 - 0.40 10*3/uL 08/08/2025 10:51 AM EDT [facility] Basophils Absolute 0.00 0.00 - 0.20 10*3/uL 08/08/2025 10:[facility] Blood Venous blood specimen / Unknown Venipuncture / Unknown 08/08/2025 10:02 AM EDT 08/08/2025 10:43 AM EDT Rachel Soriano MD LAB BLOOD ORDERABLES Final Result Performing Organization Address City/State/[facility] Co de Phone Number [facility] [address] [place] [address], documented in this encounter Visit Diagnoses Diagnosis Non-small cell lung cancer, unspecified laterality documented in this encounter Additional Health Concerns Assessment Noted Time PHQ-9 Depression Total Score: 0 06/23/20 10:00 AM EDT documented as of this encounter Care Teams Admitting Interviewer Relationship Specialty Start Date End Date Lizandro Khan NP [address] [place] [address] PCP - General Family Medicine 07/23/25 Rachel Pagan MD [address] [place] [address] Consulting Physician Oncology 11/11/22 Pati Rucker APRN [address] [facility] [place] [address] Nurse Practitioner Oncology 12/21/22 Sosa Gardner APRN [address] [facility] [place] [address] Nurse Practitioner Oncology 06/24/23 Linda Elizabeth DO [address] [facility] [place], [place] [phone] Consulting Physician Oncology 03/01/25 08/28/25 Angie Murray RN [address] [place] [address] Nurse Navigator Oncology 06/26/25 documented as of this encounter
--- OUTSIDE RECORDS SUMMARY | 2025-08-08 09:30 | XMS_ITS | Encounter Summary ---
Author Organization [facility] nter Address [address] [place] [address] Care Team Providers Care Manager Food Beverage Name Role Phone Rachel Pagan MD Unavailable [phone] Pati Rucker SCHEDULE SUPERVISOR Unavailable [phone] Sosa Gardner SCHEDULE SUPERVISOR Unavailable [phone] Linda Elizabeth DO Unavailable Angie Murray RN Unavailable Unavailab Lizandro Islas NP Primary Care Provider [phone] Reason for Visit * Reason Comments Lung Cancer * Auth/Cert (Routine) Specialty Diagnoses / Procedures Referred By Controse mary t Referred To Contact Diagnoses Malignant neoplasm of unspecified part of unspecified bronchus or lung Procedures [place] PEMETREXED INJECTION [facility] [address] [place] [address] Phone: tel: [facility] MEDICAL ONCOLOGY [address]th [place] [address] Phone: tel: fax: Referral ID Status Reason Start Date Expiration Date Visits Re quested Visits Authorized [id number] 1 1 Encounter Details Date Type Department Care Team (Latest Contact Info) Description 08/08/2025 10:30 AM EDT - 08/08/2025 11:59 PM EDT Hospital Encounter [facility] MEDICAL ONCOLOGY [address] 11[address] [place] [address] Non-small cell lung cancer, unspecified [...] week 11/11/2022 How often do you attend [facility] or mandaen services? More than 4 times per year 11/11/2022 Do you belong to any clubs o r organizations such as christian groups, unions, fraternal or athletic groups, or [...] place to sleep or slept in a residential (including now)? No 11/11/2022 [facility] - Personal Safety Answer Date [...] for daily living? No 06/23/2025 [facility] Utilities Answer Date Recorded In the past 12 months has e [employer], gas, oil, or water company threatened to [...] Sign Reading Time Taken Comments Blood Pressure 101/54 08/08/2025 11:00 AM EDT Pulse 80 08/08/2025 11:00 AM EDT Temperature 36.6 C (97.8 F) 08/08/2025 11:00 AM EDT Respiratory Rate 18 08/08/2025 11:0 0 AM EDT Oxygen Saturation - - Inhaled Oxygen Concentration - - Weight 58.9 kg (129 lb 12.8 oz) 025 11:00 AM EDT Height - - Body Mass Index 27.13 07/30/2025 10:02 AM EDT documented in this encounter Functional [...] of Assessment Author No 10/27/2022 3:29 PM Tiffanie Moser RN documented as of this encounter [...] 08/27/20 25 documented as of this encounter Progress Notes * Trena Sims - 08/08/2025 10:30 AM EDT 1112- Notified Dr. Soriano patient reports continued lower back and BLE pain for several weeks, antihistamine regimen did not help or resolve bone pain. T/O received to proceed with treatment, send patient for stat MRI L spine with and without contrast after today's treatment. documented in this encounter Plan of Treatment Upcoming Encounters Date Type Department Care Team (Late st Contact Info) Description 10/04/2025 8:45 AM EST Office Visit [facility] ONCOLOGY PRACTICE [address] 10[address] [place] [address] Rachel Pagan MD [address] [place] [address] 10/10/2025 10:30 AM EST Appointment [facility] MEDICAL ONCOLOGY [address], [address] [place] [address] 11/02/2025 9:30 AM EST Office Visit [facility] CARDIOLOGY PRACTICE [address] [place] [address] Ky Jewell MD [address] [place] [address] 11/05/2025 2:45 PM EST Office Visit [facility] NEUROLOGY PRACTICE [address], [address] [place] [address] Ruddy Mayes MD [address] [place] [address] 12/31/2025 11:30 AM EST Office Visit [facility] NEPHROLOGY PRACTICE [address] [place] [address] 01/22/2026 9:00 AM EDT Office Visit [facility] CARDIOLOGY PRACTICE [address] [place] [address] Allyn Toribio NP [address] [place], [place] [id number] documented as of this encounter Goals Goal Patient Goal Type Associated Problems Recent Progress Patient-Stated? Author Patient's support system will participate in treatment General No Frantom, Emily Shah documented as of this encounter Results * T4, free (08/08/2025 10:02 AM EDT) Free T4 0.96 0.61 - 1.12 ng/dL 08/08/2025 11:21 AM EDT [facility] Blood Venous blood specimen / Unknown Venipuncture / Unknown 08/08/2025 10:02 AM EDT 08/08/2025 10:41 AM EDT Rachel Soriano MD LAB BLOOD ORDERABLES Final Result Performing Organization Address [facility]/ZIP Co de Phone Number [facility] [address] [place] [address], * TSH (08/08/2025 10:02 AM EDT) [facility] TSH 2.828 0.450 - 5.330 uIU/mL 08/08/2025 11:18 AM EDT [facility] Comment: Non-Pregant Female: 0.45 - 5.33 IU/mL Female - 1st Trimester: 0.05 - 3.70 IU/mL Female - 2nd Trimester: 0.31 4.35 IU/mL Female - 3rd Trimester: 0.41 5.18 IU/mL Blood Venous blood specimen / Unknown Venipuncture / Unknown 08/08/2025 10:02 AM EDT 08/08/2025 10:41 AM EDT Rachel Soriano MD LAB BLOOD ORDERABLES Final Result Performing Organization Address City/[facility]/ZIP Co de Phone Number [facility] [address] [place] [address], * (ABNORMAL) Comprehensive metabolic panel (08/08/2025 10:02 AM EDT) [facility] Sodium 140 134 - 143 mmol/L 08/08/2025 11:11 AM EDT [facility] Potassium 4.3 3.2 - 4.6 mmol/L 08/08/2025 11:11 AM [facility] Chloride 104 99 - 108 mmol/L 08/08/2025 11:11 AM [facility] CO2 30(H) 19 - 29 mmol/L 08/08/2025 11:11 AM [facility] Anion Gap 6 5 - 15 mmol/L 08/08/2025 11:11 AM [facility] BUN 18 7 - 20 mg/dL 08/08/2025 11:11 AM [facility] Creatinine 1.17 <=1.20 mg/dL 08/08/2025 11:11 AM [facility] BUN/Creatinine Ratio 15.38 10.00 - 20.00 ratio 08/08/2025 11:11 AM [facility] Glucose 85 58 - 104 mg/dL 08/08/2025 11:11 AM [facility] Calcium 9.0 7.9 - 11.1 mg/dL 08/08/2025 11:11 AM [facility] AST 17 10 - 28 U/L 08/08/2025 11:11 AM [facility] ALT (SGPT) 11 <=40 U/L 08/08/2025 11:11 AM [facility] Alkaline Phosphatase 69 29 - 108 U/L 08/08/2025 11:11 AM [facility] Total Protein 6.7 5.9 - 7.9 g/dL 08/08/2025 11:11 AM [facility] Albumin 2.9(L) 3.5 - 5.1 g/dL 08/08/2025 11:11 AM [facility] Globulin, Total 3.8 2.4 - 4.8 g/dL 08/08/2025 11:11 AM [facility] A/G Ratio 0.8 0.6 - 1.6 08/08/2025 11:11 AM [facility] Total Bilirubin 0.5 0.3 - 1.0 mg/dL 08/08/2025 11:11 AM [facility] eGFR (CKD-EPI) 48.7(L) >60.0 - 200.0 mL/min/1.7 3m*2 08/08/2025 11:11 AM [facility] Blood Venous blood specimen / Unknown Venipuncture / Unknown 08/08/2025 10:02 AM EDT 08/08/2025 10:41 AM EDT Rachel Soriano MD LAB BLOOD ORDERABLES Final Result [facility] [address] [place] [address], * (ABNORMAL) CBC auto differential (08/08/2025 10:02 AM EDT) Auto WBC 3.6(L) 3.8 - 11.0 10*3/uL 08/08/2025 10:51 AM [facility] RBC 2.57(L) 3.73 - 5.13 10*6/uL 08/08/2025 10:51 AM [facility] Hemoglobin 9.2(L) 11.2 - 15.3 g/dL 08/08/2025 10:51 AM [facility] Hematocrit 27.5(L) 32.6 - 44.6 % 08/08/2025 10:51 AM [facility] MCV 106.9(H) 78.8 - 96.0 fL 08/08/2025 10:51 AM [facility] MCH 35.6(H) 26.2 - 33.0 pg 08/08/2025 10:51 AM [facility] MCHC 33.3 32.7 - 35.1 g/dL 08/08/2025 10:51 AM [facility] RDW 21.6(H) 12.1 - 16.1 % 08/08/2025 10:51 AM [facility] Platelets 83(L) 138 - 402 10*3/uL 08/08/2025 10:51 AM [facility] MPV 7.8 7.0 - 10.6 fL 08/08/2025 10:51 AM [facility] Neutrophils % 61 47 - 79 % 08/08/2025 10:51 AM [facility] Lymphocytes % 22 13 - 41 % 08/08/2025 10:51 AM [facility] Monocytes % 10 3 - 11 % 08/08/2025 10:51 AM [facility] Eosinophils % 8(H) 0 - 6 % 08/08/2025 10:51 AM [facility] Basophils % 0 0 - 2 % 08/08/2025 10:51 AM [facility] Neutrophils Absolute 2.20 1.90 - 7.50 10*3/uL 08/08/2025 10:51 AM [facility] Lymphocytes Absolute 0.80 0.80 - 3.20 10*3/uL 08/08/2025 10:51 AM [facility] Monocytes Absolute 0.30 0.10 - 0.90 10*3/uL 08/08/2025 10:51 AM [facility] Eosinophils Absolute 0.30 0.00 - 0.40 10*3/uL 08/08/2025 10:51 AM [facility] Basophils Absolute 0.00 0.00 - 0.20 10*3/uL 08/08/2025 10:51 AM [facility] Blood Venous blood specimen / Unknown Venipuncture / Unknown 08/08/2025 10:02 AM EDT 08/08/2025 10:43 AM EDT us Rachel Soriano MD LAB BLOOD ORDERABLES Final Result [facility] [address] [place] [address], documented in this encounter Visit Diagnoses Diagnosis Non-small cell lung cancer, unspecified laterality- Primary documented in this encounter Administered Medications Inactive Administered Medications - up to 3 most recent administrations Medication Order MAR Action Action Date Dose Rate Site pembrolizumab (Keytruda) 200 mg in sodium chloride 0.9 % 100 mL chemo IVPB 200 mg, Intravenous, Administer over 30 Minutes, Once, On Wed08/08/25 at 1200, For 1 dose, HAZARDOUS - Handle with care Infuse through a 0.2 to 5 micron sterile, nonpyrogenic, low-protein binding inline or add-on filter. Do not infuse other medications through the same infusion line.Indications:Non-small cell lung cancer, unspecified laterality New Bag 08/08/2025 12:12 PM EDT 200 mg 216 mL/hr documented in this encounter Additional Health Concerns Assessment Noted Time PHQ-9 Depression Total Score: 0 06/23/20 10:00 AM EDT documented as of this encounter Care Teams Manager Food Beverage Relationship Specialty Start Date End Date Lizandro Khan NP [address] [place] [address] PCP - General Family Medicine 07/23/25 Rachel Pagan MD [address] [facility] [place] [address] Consulting Physician Oncology 11/11/22 Pati Rucker APRN [facility] [address] [facility] [place] [address] Nurse Practitioner Oncology 12/21/22 Sosa Gardner APRN [address] [facility] [place] [address] Nurse Practitioner Oncology 06/24/23 Linda Elizabeth DO [address] [facility] [place] [address] Consulting Physician Oncology 03/01/25 08/28/25 Angie Murray RN [address] [place] [address] Nurse Navigator Oncology 06/26/25 documented as of this encounter
--- OUTSIDE RECORDS SUMMARY | 2025-08-13 13:45 | XMS_ITS | Encounter Summary ---
Author Organization [facility] Address [address] [place] [address] Care Team Providers Care Ems Educator Name Role Phone Rachel Pagan MD Unavailable [phone] Pati Rucker SUPERVISOR CRACK OFF Unavailable [phone] Sosa Gardner SUPERVISOR CRACK OFF Unavailable [phone] Linda Elziabeth DO Unavailable Angie Murray RN Unavailable Unavailab Lizandro Islas NP Primary Care Provider [phone] Reason for Referral * Diagnostic Medical (Same Day) - Canceled Specialty Diagnoses / Procedures Referred By Dorothy ceballos Referred To Contact Diagnoses . Procedures Nail debridement Yazan Castro DPM [address] [place] [address] Phone: tel: fax:[phone] [facility], [facility] [address] [place] [address] Phone: tel: fax: Referral ID Status Reason Start Date Expiration Date Visits Requested Visits Authorized [id number] Canceled Perform Procedure 08/13/2025 08/13/2026 1 1 * Diagnostic Medical (Same Day) - Authorized Specialty Diagnoses / Procedures Referred By Dorothy ceballos Referred To Contact Podiatry Diagnoses Ingrown right big toenail Right foot pain Procedures Nail debridement Yazan Castro DPM [address] [place] [address] Phone: tel:[phone] fax: Yazan Castro DPM [address] [place] [address] Phone: tel: fax: Referral ID Status Reason Start Date Expiration Date Visits Requested Visits Authorized [id number] Authorized Perform Procedure 08/13/2025 08/13/2026 1 1 Reason for Visit * Reason Comments Ingrown Toenail * Consultation (Routine) - Authorized Specialty Diagnoses / Procedures Referred By Dorothy ceballos Referred To Contact Podiatry Diagnoses Infected nailbed of toe, left Procedures FL OFFICE/OUTPATIENT NEW SF MDM 15 MINUTES FL OFFICE/OUTPATIENT NEW LOW MDM 30 MINUTES FL OFFICE/OUTPATIENT NEW MODERATE MDM 45 MINUTES FL OFFICE/OUTPATIENT NEW HIGH MDM 60 MINUTES FL OFFICE/OUTPATIENT ESTABLISHED SF MDM 10 MIN FL OFFICE/OUTPATIENT ESTABLISHED LOW MDM 20 MIN FL OFFICE/OUTPATIENT ESTABLISHED MOD MDM 30 MIN FL OFFICE/OUTPATIENT ESTABLISHED HIGH MDM 40 MIN Rachel Pagan MD [address] [place] [address] Phone: tel: fax: [facility] [address] [place] [address] Phone: tel: fax: Referral ID Status Reason Start Date Expiration Date Visits Requested Visits Authorized [id number] Authorized Specialty Services Required 07/04/2025 07/04/2026 1 3 Encounter Details Date Type Department Care Team (Late st Contact Info) Description 08/13/2025 2:45 PM EDT Office Visit [facility] 1 [facility] [place] [address] Hunter Castroew, DPYared [address] [place] [address] Ingrown right big toenail; Nail dystrophy; Right foot pain; Left foot pain Social History Tobacco Use Types Packs/Day Years [...] any clubs o r organizations such as sikh groups, unions, fraternal or athletic groups, or [...] a senior living (including now)? No 11/11/2022 [facility] - Personal [...] things needed for daily living? No 06/23/2025 [facility] Utilities Answer Date Recorded In the past 12 months has [employer] electric, gas, oil, or water company threatened [...] Sign Reading Time Taken Comments Blood Pressure 83/56 08/13/2025 3:01 PM EDT Pulse 88 08/13/2025 3:01 PM EDT Temperature - - Respiratory Rate - - Oxygen Saturation - - Inhaled Oxygen Concentration - - Weight 58.5 kg (129 lb) 08/13/2025 3:01 PM EDT Height 147.3 cm (4' 10 ) 08/13/2025 3:01 PM EDT Body Mass Index 26.96 08/13/2025 3:01 PM EDT documented in this encounter Functional [...] documented in this encounter Progress Notes * Yazan Castro DPM - 08/13/2025 2:45 PM EDTAssociated Order(s): Nail debridement; Nail debridement Post-Procedure Diagnose(s): Nail dystrophy; Left foot pain; Right foot pain; Ingrown right big toenail Subjective Patient ID: Jose Sims is a 64 y.o. female who presents for Ingrown Toenail. Pt is in clinic today to establish care for an ingrown toenail on her right foot. Pt is ambulatory with assistance from a wheelchair and voices severe pain in her right great toe that she would rate 10/10. Pt is non diabetic. Social History: Social History Socioeconomic History Marital status: Spouse name: Not on file Number of children: Not on file Years of education: Not on file Highest education level: Not on file Occupational History Not on file Tobacco Use Smoking status: Every Day Current packs/day: 0.25 Average packs/day: 0.5 packs/day for 30.7 years (15.3 ttl pk-yrs) Types: Cigarettes Start date: 2024 Last attempt to quit: 03/18/2025 Passive exposure: Past Smokeless tobacco: Never Tobacco comments: Offered patient an appointment at the health department for smoking cessation classes. Patient declined. Vaping Use Vaping status: Never Used Substance and Sexual Activity Alcohol use: Never Drug use: Never Sexual activity: Defer Other Topics Concern Not on file Social History Narrative Not on file Social Drivers of Health Financial Resource Strain: Low Risk (01/11/2025) Overall Financial Resource Strain (CARDIA) Difficulty of Paying Living Expenses: Not hard at all Food Insecurity: No Food Insecurity (06/19/2025) Hunger Vital Sign Worried About Running Out of Food in the Last Year: Never true Ran Out of Food in the Last Year: Never true Transportation Needs: No Transportation Needs (06/23/2025) PRAPARE - Transportation Lack of Transportation (Medical): No Lack of Transportation (Non-Medical): No Physical Activity: Inactive (01/11/2025) Exercise Vital Sign Days of Exercise per Week: 0 days Minutes of Exercise per Session: 0 min Stress: No Stress Concern Present (01/11/2025) Citizen Of The [place] [employer] Occupational Health - Occupational Stress Questionnaire Feeling of Stress : Not at all Social Connections: Moderately Integrated (11/11/2022) Social Connection and Isolation Panel Frequency of Communication with Friends and Family: Three times a week Frequency of Social Gatherings with Friends and Family: Three times a week Attends Holiness Services: More than 4 times per year Active Member of Clubs or Organizations: Yes Attends Club or Organization Meetings: More than 4 times per year Marital Status: Intimate Partner Violence: Not At Risk (11/11/2022) Humiliation, Afraid, Rape, and Kick questionnaire Fear of Current or Ex-Partner: No Emotionally Abused: No Physically Abused: No Sexually Abused: No Housing Stability: Unknown (11/11/2022) Housing Stability Vital Sign Unable to Pay for Housing in the Last Year: No Number of Places Lived in the Last Year: Not on file Unstable Housing in the Last Year: No Ready to quit: Not Answered Counseling given: Not Answered Tobacco comments: Offered patient an appointment at the health department for smoking cessation classes. Patient declined. Review of Systems Constitutional: Negative. HENT: Negative. Eyes: Negative. Respiratory: Negative. Cardiovascular: Negative. Gastrointestinal: Negative. Endocrine: Negative. Genitourinary: Negative. Musculoskeletal: Negative. Skin: Negative. Allergic/Immunologic: Negative. Neurological: Negative. Hematological: Negative. Psychiatric/Behavioral: Negative. All other systems reviewed and are negative. Objective Foot Exam General General Appearance: appears stated age and healthy Orientation: alert and oriented to person, place, and time Affect: appropriate Gait: unimpaired Right Foot/Ankle Inspection and Palpation Ecchymosis: none Tenderness: (hallux nail) Swelling: none Hallux valgus: yes Skin Exam: skin intact; Neurovascular Dorsalis pedis: 3+ Posterior tibial: 3+ Saphenous nerve sensation: diminished Tibial nerve sensation: diminished Superficial peroneal nerve sensation: diminished Deep peroneal nerve sensation: diminished Sural nerve sensation: diminished Achilles reflex: 2+ Babinski reflex: 2+ Muscle Strength Ankle dorsiflexion: 5 Ankle plantar flexion: 5 Ankle inversion: 5 Ankle eversion: 5 Great toe extension: 5 Great toe flexion: 5 Range of Motion Normal right ankle ROM Comments 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 Bilateral decreased sensation with 6 out of 10 monofilament Nails 1 through 5 are thick, long, dystrophic bilaterally and the right hallux is severely pincer and incurvated with significant pain Left Foot/Ankle Inspection and Palpation Ecchymosis: none Tenderness: none Swelling: none Hallux valgus: yes Skin Exam: skin intact; Neurovascular Dorsalis pedis: 3+ Posterior tibial: 3+ Saphenous nerve sensation: diminished Tibial nerve sensation: diminished Superficial peroneal nerve sensation: diminished Deep peroneal nerve sensation: diminished Sural nerve sensation: diminished Achilles reflex: 2+ Babinski reflex: 2+ Muscle Strength Ankle dorsiflexion: 5 Ankle plantar flexion: 5 Ankle inversion: 5 Ankle eversion: 5 Great toe extension: 5 Great toe flexion: 5 Range of Motion Normal left ankle ROM Assessment/Plan 1. Ingrown right big toenail -Patient was seen and evaluated today in clinic. Discussed the condition and treatment options withthe patient. -Discussed the condition & treatment options with the pt. Discussed removal of the painful right nail in detail with the pt. Pt would like to go ahead with the procedure. A local anesthetic blockwas given into the right hallux with 3 mL s of 1% Lidocaine & 0.5% Marcaine plain under aseptic technique. Once the appropriate level of anesthesia was achieved a digital tourniquet was placed a round the right Hallux. At this time an elevator, hemostat, and Brazilian anvil were used to remove the nail of the right big toe. A curette was used to explore the border an ensure that all of the nail was removed. Once the offending nail border was removed 4 applications of phenol for 30 seconds each were applied to the nail border. This was then flushed with saline. At this time Silvadene, 4x4???s gauze, and gregorio wrap was placed around the toe. The tourniquet was released and rapid capillary refill time was noted to the right hallux nail. Coban applied. Follow up 1 week. 2. Nail dystrophy Nails were debrided x???s 9 utilizing manual debridement with a nail nipper. Patient tolerated the procedure well. -Patient is to follow up in 3 months. 3. Right foot pain -See above 4. Left foot pain -See above Patient ID: Jose Sims is a 64 y.o. female. Vitals: 08/13/25 1501 BP: 83/56 Pulse: 88 Weight: 129 lb (58.5 kg) Height: 4' 10 (1.473 m) PainSc: 10-Worst pain ever PainLoc: Toe Nail debridement Date/Time: 08/13/2025 4:07 PM Performed by: Yazan Castro DPM Authorized by: Yazan Castro DPM Consent: Consent obtained: Verbal Consent given by: Patient Risks, benefits, and alternatives were discussed: yes Risks discussed: Bleeding, incomplete removal, infection, pain and permanent nail deformity Alternatives discussed: No treatment Is the patient diabetic?: no Time Out: 08/13/2025 4:07 PM [place] protocol: Procedure explained and questions answered to patient or proxy's satisfaction: yes Patient identity confirmed: Verbally with patient Location: Foot: R big toe Pre-procedure details: Skin preparation: Povidone-iodine Anesthesia: Anesthesia method: Nerve block Block needle gauge: 27 G Block anesthetic: Bupivacaine 0.5% w/o epi and lidocaine 2% w/o epi Block technique: Ring Block injection procedure: Anatomic landmarks identified, anatomic landmarks palpated and negative aspiration for blood Block outcome: Anesthesia achieved Ingrown nail: Nail matrix removed or ablated: Complete Post-procedure details: Dressing: Antibiotic ointment, 4x4 sterile gauze and gauze roll Procedure completion: Tolerated well, no immediate complications Nail debridement Date/Time: 08/13/2025 4:08 PM Performed by: Yazan Castro DPM Authorized by: Yazan Castro DPM Consent: Consent obtained: Verbal Consent given by: Patient Risks, benefits, and alternatives were discussed: yes Risks discussed: Bleeding Alternatives discussed: No treatment Is the patient diabetic?: no Time Out: 08/13/2025 4:08 PM [place] protocol: Procedure explained and questions answered to patient or proxy's satisfaction: yes Patient identity confirmed: Verbally with patient Anesthesia: Anesthesia method: None Nails debrided: Number of Nails debrided: 9 Post-procedure details: Procedure completion: Tolerated well, no immediate complications The medication list for this visit has been reviewed and reconciled. Reviewed by Martin Kamara on 08/13/25 at 1501 and confirmed by Miri Sutherland documented in this encounter Miscellaneous Notes * Patient Education - Martin Kamara - 08/13/2025 3:03 PM EDT Images from the original note were not included. Patient Education Table of Contents Ingrown Toenail To view videos and all your education online visit, [email or web address] or scan this QR code with your smartphone. Access to this content will in one year. Ingrown Toenail An ingrown toenail occurs when the corner or sides of a toenail grow into the surrounding skin. This causes discomfort and pain. The big toe is most commonly affected, but any of the toes can be affected. If an ingrown toenail is not treated, it can become infected. What are the causes? This condition may be caused by: Wearing shoes that are too small or tight. An injury, such as stubbing your toe or having your toe stepped on. Improper cutting or care of your toenails. Having nail or foot abnormalities that were present from (congenital abnormalities), such as having a nail that is too big for your toe. What increases the risk? The following factors may make you more likely to develop ingrown toenails: Age. Nails tend to get thicker with age, so ingrown nails are more common among older people. Cutting your toenails incorrectly, such as cutting them very short or cutting them unevenly. An ingrown toenail is more likely to get infected if you have: Diabetes. Blood flow (circulation) problems. What are the signs or symptoms? Symptoms of an ingrown toenail may include: Pain, soreness, or tenderness. Redness. Swelling. Hardening of the skin that surrounds the toenail. Signs that an ingrown toenail may be infected include: Fluid or pus. Symptoms that get worse. How is this diagnosed? Ingrown toenails may be diagnosed based on: Your symptoms and medical history. A physical exam. Labs or tests. If you have fluid or blood coming from your toenail, a sample may be collected to test for the specific type of bacteria that is causing the infection. How is this treated? Treatment depends on the severity of your symptoms. You may be able to care for your toenail at home. If you have an infection, you may be prescribed antibiotic medicines. If you have fluid or pus draining from your toenail, your health care provider may drain it. If you have trouble walking, you may be given crutches to use. If you have a severe or infected ingrown toenail, you may need a procedure to remove part or all ofthe nail. Follow these instructions at home: Foot care Check your wound every day for signs of infection, or as often as told by your health care provider. Check for: ? More redness, swelling, or pain. ? More fluid or blood. ? Warmth. ? Pus or a bad smell. Do not pick at your toenail or try to remove it yourself. Soak your foot in warm, soapy water. Do this for 20 minutes, 3 times a day, or as often as told by your health care provider. This helps to keep your toe clean and your skin soft. Wear shoes that fit well and are not too tight. Your health care provider may recommend that you wear open-toed shoes while you heal. Trim your toenails regularly and carefully. Cut your toenails straight across to prevent injury to the skin at the corners of the toenail. Do not cut your nails in a curved shape. Keep your feet clean and dry to help prevent infection. General instructions Take qcfi-aka-sgnlwzi and prescription medicines only as told by your health care provider. If you were prescribed an antibiotic, take it as told by your health care provider. Do not stop taking the antibiotic even if you start to feel better. If your health care provider told you to use crutches to help you move around, use them as instructed. Return to your normal activities as told by your health care provider. Ask your health care provider what activities are safe for you. Keep all follow-up visits. This is important. Contact a health care provider if: You have more redness, swelling, pain, or other symptoms that do not improve with treatment. You have fluid, blood, or pus coming from your toenail. You have a red streak on your skin that starts at your foot and spreads up your leg. You have a fever. Summary An ingrown toenail occurs when the corner or sides of a toenail grow into the surrounding skin. This causes discomfort and pain. The big toe is most commonly affected, but any of the toes can be affected. If an ingrown toenail is not treated, it can become infected. Fluid or pus draining from your toenail is a sign of infection. Your health care provider may need to drain it. You may be given antibiotics to treat the infection. Trimming your toenails regularly and properly can help you prevent an ingrown toenail. This information is not intended to replace advice given to you by your health care provider. Make sure you discuss any questions you have with your health care provider. Document Released: 2001-10-29 Document Updated: 2022-03-03 Document Reviewed: 2022-03-03 [employer] Patient Education ? 2024 [employer] documented in this encounter Plan of Treatment Upcoming Encounters Date Type Department Care Team (Late st Contact Info) Description 10/04/2025 8:45 AM EST Office Visit [facility] [address] [place] [address] Rachel Pagan MD [address] [place] [address] 10/10/2025 10:30 AM EST Appointment [facility] [address] [place] [address] 11/02/2025 9:30 AM EST Office Visit [facility] [address] [place] [facility] [place] [address] Ky Jewell MD [address] [place] [address] [place] [address] 11/05/2025 2:45 PM EST Office Visit [facility] [address], [address] [place] [address] Ruddy Mayes MD [address] [facility] [place] [address] 12/31/2025 11:30 AM EST Office Visit [facility] [address] [place] [address] 01/22/2026 9:00 AM EDT Office Visit [facility] [address], [address] [place] [facility] [place] [address] Allyn Toribio NP [address] [place] [id number] documented as of this encounter Goals Goal Patient Goal Type Associated Problems Recent Progress Patient-Stated? Author Patient's support system will participate in treatment General Emily Ny documented as of this encounter Procedures Procedure Name Priority Date/Time Associated Diagnosis Comments FL DEBRIDEMENT NAIL ANY METHOD 6/> Today 08/13/2025 4:08 PM EDT Nail dystrophy Right foot pain Left foot pain HC REMOVAL OF NAIL BED Today 08/13/2025 4:07 PM EDT Ingrown right big toenail Right foot pain FL EXCISION NAIL MATRIX PERMANENT REMOVAL Today 08/13/2025 4:07 PM EDT Ingrown right big toenail Right foot pain documented in this encounter Results * FL DEBRIDEMENT NAIL ANY METHOD 6/> (08/13/2025 4:08 PM EDT) Yazan Mandujano DPM - 08/13/2025 4:08 PM EDT Yazan Castro DPM 08/14/2025 8:02 AM Nail debridement Date/Time: 08/13/2025 4:08 PM Performed by: Yazan Castro DPM Authorized by: Yazan Castro DPM Consent: Consent obtained: Verbal Consent given by: Patient Risks, benefits, and alternatives were discussed: yes Risks discussed: Bleeding Alternatives discussed: No treatment Is the patient diabetic?: no Time Out: 08/13/2025 4:08 PM [place] protocol: Procedure explained and questions answered to patient or proxy's satisfaction: yes Patient identity confirmed: Verbally with patient Anesthesia: Anesthesia method: None Nails debrided: Number of Nails debrided: 9 Post-procedure details: Procedure completion: Tolerated well, no immediate complications Yazan Castro DPM IN CLINIC/BEDSIDE ORDERABLE S Final Result * FL EXCISION NAIL MATRIX PERMANENT REMOVAL, HC REMOVAL OF NAIL BED (08/13/2025 4:07 PM EDT) Yazan Mandujano DPM - 08/13/2025 4:07 PM EDT Yazan Castro DPM 08/14/2025 8:02 AM Nail debridement Date/Time: 08/13/2025 4:07 PM Performed by: Yazan Castro DPM Authorized by: Yazan Castro DPM Consent: Consent obtained: Verbal Consent given by: Patient Risks, benefits, and alternatives were discussed: yes Risks discussed: Bleeding, incomplete removal, infection, pain and permanent nail deformity Alternatives discussed: No treatment Is the patient diabetic?: no Time Out: 08/13/2025 4:07 PM [place] protocol: Procedure explained and questions answered to patient or proxy's satisfaction: yes Patient identity confirmed: Verbally with patient Location: Foot: R big toe Pre-procedure details: Skin preparation: Povidone-iodine Anesthesia: Anesthesia method: Nerve block Block needle gauge: 27 G Block anesthetic: Bupivacaine 0.5% w/o epi and lidocaine 2% w/o epi Block technique: Ring Block injection procedure: Anatomic landmarks identified, anatomic landmarks palpated and negative aspiration for blood Block outcome: Anesthesia achieved Ingrown nail: Nail matrix removed or ablated: Complete Post-procedure details: Dressing: Antibiotic ointment, 4x4 sterile gauze and gauze roll Procedure completion: Tolerated well, no immediate complications Yazan Castro DPM IN CLINIC/BEDSIDE ORDERABLE S Final Result documented in this encounter Visit Diagnoses Diagnosis Ingrown right big toenail Ingrowing nail Nail dystrophy Other specified disease of nail Right foot pain Pain in soft tissues of limb Left foot pain Pain in soft tissues of limb documented in this encounter Additional Health Concerns Assessment Noted Time PHQ-9 Depression Total Score: 0 06/23/20 10:00 AM EDT documented as of this encounter Care Teams Ems Educator Relationship Specialty Start Date End Date Lizandro Khan NP [address] [place] [address] PCP - General Family Medicine 07/23/25 Rachel Pagan MD [address] [place] [id number] Consulting Physician Oncology 11/11/22 Pati Rucker APRN [address] [facility] [place] [id number] Nurse Practitioner Oncology 12/21/22 Sosa Gardner APRN [address] [facility] [place] [address] Nurse Practitioner Oncology 06/24/23 Linda Elizabeth DO [address] [place] [address] Consulting Physician Oncology 03/01/25 08/28/25 Angie Murray, ROLDAN [address] [place] [address] Nurse Navigator Oncology 06/26/25 documented as of this encounter
--- OUTSIDE RECORDS SUMMARY | 2025-08-22 03:48 | XMS_ITS | Encounter Summary ---
Author Organization Healthcare Address [address] [place] [id number] Care Team Providers Care Senior Net C Developer Name Role Phone Lizandro Khan APRN Primary Care Provider [phone] Reason for Visit * Reason Comments Trauma Alert Red Encounter Details Date Type Department Care Team ([facility] st Contact Info) Description 08/22/2025 4:48 AM EDT - 08/22/2025 1:26 PM EDT Emergency [facility] Emergency Department [address] [place] [address] Sandro Terrazas MD [address] [place] [id number] Ky Guerrero MD [address] [place] [id number] Laceration of ear lobe, unspecified laterality, subsequent encounter (Primary Dx) Discharge Disposition: Home or Self Care Social History Tobacco Use Types Packs/Day Years Used Date Smoking Tobacco: Every Day Cigarettes 0.5 30.9 Started: 11/17/1994 Smokeless Tobacco: Never Alcohol Use [...] Sign Reading Time Taken Comments Blood Pressure 116/54 08/22/2025 1:10 PM EDT Pulse 80 08/22/2025 1:12 PM EDT Temperature 36.5 C (97.7 F) 08/22/2025 1:10 PM EDT Respiratory Rate 31 08/22/2025 1:12 PM EDT Oxygen Saturation 100% 08/22/2025 1:12 PM EDT Inhaled Oxygen Concentration - - Weight 57.4 kg (126 lb 8.7 oz) 08/22/2025 4:58 A M EDT Height - - Body Mass Index 26.45 07/26/2025 3:05 PM EDT documented in this encounter Functional Status * Calculated C-SSRS Risk Score (Lifetime/Recent) Answer Date of Assessment Author No Risk Indicated 08/22/2025 7:25 AM EDT Meghan Gudino, RN * Question Answer Date of Assessment Author 1. Wish to be (Past 1 Month) No 025 7:25 AM EDT Meghan Gudino, RN 2. Non-Specific Active Suici allan Thoughts (Past 1 Month) No 08/22/2025 7:25 AM EDT Evelyne Gudino RN 6. Suicidal Behavior (Lifetime) No 7:25 AM EDT Meghan Gudino RN documented as of this encounter Discharge Instructions * Discharge Instructions* Kashmir Stoll MD - 08/22/2025 9:42 AM EDT Discharge instructions - Apply bacitracin to wound BID x 3 days - Petroleum jelly or aquaphor to wound BID x 3 weeks - Sunscreen to wound after 3 weeks for at least 6 months and wear a hat when in direct sunlight - Keep wounds moist and clean: free of crusting, dry blood, and debris - Ok to shower. Let water run across the laceration sites. May fully submerge in water starting in 5 days. Avoid soaking in tubs or pools. - Once skin edges are completely healed, use sunblock or physical protection (e.g., broad-brimmed hat) when out in the sun for 6 months to prevent hyperpigmentation. - Bolster will be removed in clinic in 7 days Follow-Up: Patient Preferred Contact #: [phone] (secondary contact: [phone] ) Signs to Watch For: Increased redness, swelling, warmth, or pus at the wound site. Fever over 100.4??F (38??C). Severe pain not controlled by acetaminophen (Tylenol). Any signs of allergic reaction (rash, swelling of face or mouth, difficulty breathing). Suture Removal:on your follow up appointment.. Activity: Resume normal activities as tolerated, but avoid strenuous exercise or activities that could injurethe ear until it is fully healed. Medication: Take acetaminophen for pain as needed (Up to 1000mg three times per day). Avoid NSAIDs (like ibuprofen or naproxen), as these can increase bleeding risk when combined with apixaban. Follow-Up: Keep your follow-up appointment for suture removal and wound check. If you have any questions or concerns, contact your healthcare provider. When to Seek Immediate Care: Uncontrolled bleeding. Signs of infection. Sudden severe headache, weakness, numbness, or difficulty speaking (signs of stroke). Any other concerning symptoms. documented in this encounter Medications at Time of Discharge acetaminophen (Tylenol) 500 MG tablet 1 tab every 4-6 hours PRN 08/22/2025 albuterol (Proventil) (2.5 MG/3ML) 0.083% nebulizer solution inhale ONE vial (3ml) via nebulizer EVERY 6 HOURS NEEDED FOR 10 DAYS 11/28/2024 apixaban (Eliquis) 5 MG tablet Take 1 tablet by mouth twice a day. 07/20/2025 atorvastatin (Lipitor) 80 MG tablet Take 1 tablet by mouth. 07/18/2025 bumetanide (Bumex) 2 MG tablet Take [...] by mouth 2 times a day. 03/26/2025 DULoxetine (Cymbalta) [address] capsule Take 1 capsule (60 mg) by mouth 1 (one) time each day. Do not crush or chew. empagliflozin (Jardiance) 10 MG Take 1 tablet by mouth 1 time each day. 06/22/2025 ergocalciferol (Vitamin D-2) 50 MCG (2000 UT) capsule Take 1 capsule by mouth. folic acid (Folvite) 1 MG tablet Take 1 tablet (1 mg) by mouth 1 (one) time each day. gabapentin (Neurontin) 400 MG capsule Take 2 capsules (800 mg) by mouth 2 (two) times a day. Take 1 capsule (400 mg) by mouth daily at lunch in addition to the 800 mg BID doses. 35 capsule 11/22/2024 ipratropium-albutero l (Duo-Neb) 0.5-2.5 mg/3 mL nebulizer solution 3 mL every 6 hours as needed. 06/22/2025 isosorbide mononitrate 20 MG tablet Take 1 tablet (20 mg) by mouth twice a day. 07/06/2024 loratadine (Claritin) 10 MG tablet Take 1 tablet by mouth daily. 02/27/2025 magnesium oxide (Mag-Ox) 400 (240 Mg) MG tablet Take 1 tablet by mouth. 07/18/2025 metFORMIN (Glucophage) 500 MG tablet Take 1 tablet by mouth daily with breakfast and dinner. 01/13/2025 montelukast (Singulair) 10 MG tablet Take 1 tablet (10 mg) by mouth every night. ondansetron (Zofran) 8 MG tablet Take 1 tablet by mouth every 8 hours as needed for nausea or vomiting. 03/13/2025 ondansetron ODT (Zofran-ODT) 8 MG disintegrating tablet DISSOLVE 1 TABLET ON TONGUE FOUR TIMES DAILY NEEDED FOR NAUSEA OR VOMITING 07/20/2025 pantoprazole (Protonix) 40 MG EC tablet Take [...] by mouth 2 times a day. 02/27/2025 diphenoxylate-atropi ne (Lomotil) 2.5-0.025 MG tablet Take 1 tablet by mouth 4 times a day as needed. 02/28/2025 documented as of this encounter Miscellaneous Notes * Alyse Banks MD - 08/22/2025 12:55 PM EDT Images from the original note were not included. [id number] Laceration, All Closures A laceration is a cut through the skin. This will usually need stitches or rony if it's deep. Minor cuts may be treated with a surgical tape closure or skin glue. Home care ? If your doctor prescribes an antibiotic, follow all instructions for taking this medicine. This is to help prevent infection. Take the medicine every day until it's gone, or you are told to stop. You should not have any left over. ? Follow instructions for taking any pain medicines. The doctor may prescribe medicines for pain. If none was prescribed, you can use [id number] pain medicines. Talk with your doctor before using these medicines if you have chronic liver or kidney disease, ever had a stomach ulcer or digestive bleeding, or are on a blood thinner medicine. ? Follow the doctor?s instructions on how to care for the cut. ? Always wash your hands before and after cleaning the wound or changing the dressing. ? Keep the wound clean and dry. Don't get the wound wet until you are told it's okay to do so. If the area gets wet, gently pat it dry with a clean cloth. Replace the wet bandage with a dry one. ? If a bandage was applied and it becomes wet or dirty, replace it. Otherwise, leave it in place for the first 24 hours. ? Caring for stitches or rony: Once you no longer need to keep them dry, clean the wound daily. First remove the bandage. Then wash the area gently with soap and clean running water, or as directed by the doctor. Use a wet cotton swab to loosen and remove any blood or crust that forms. After cleaning, apply a thin layer of antibiotic ointment if advised. Then put on a new bandage unless you are told not to. ? Caring for skin glue: Don?t apply liquid, ointment, or cream on the wound while the glue is in place. It will loosen the glue. Don't do activities that cause heavy sweating. Protect the wound from sunlight. Don't scratch, rub, or pick at the adhesive film. Don't place tape directly over the film.The glue should peel off on its own in 5 to 10 days. If it does not fall off after 5 to 10 days, use an antibiotic ointment or petroleum jelly to loosen it, then gently peel it off. ? Caring for surgical tape: Keep the area dry. If it gets wet, blot it dry with a clean towel. Surgical tape often falls off in 7 to 10 days. If it has not fallen off after 10 days, you can take it off yourself. Put mineral oil or petroleum jelly on a cotton ball and gently rub the tape until it's removed. ? Once you can get the wound wet, you may shower as normal. Don't soak the wound in water (no tub baths or swimming). ? Check the wound daily for the signs of infection listed below. Even with correct treatment, a wound infection may sometimes occur. Scalp wounds Follow your doctor's specific instructions on showering. During the first 2 days, you may carefullyrinse your hair in the shower to remove blood, glass, or dirt particles. After 2 days, you may shower and shampoo your hair normally. Don't soak your scalp in the tub or go swimming until the stitches or rony have been removed. Talk with your doctor before applying any antibiotic ointment to thewound. Avoid scratching or picking on the wound scab. It will delay healing. Avoid using hair products like dyes, hair spray, or extensions while a scalp wound heals. Mouth wounds Eat soft foods to reduce pain. Avoid hot and spicy foods. If the cut is inside your mouth, clean itby rinsing after each meal and at bedtime with a mixture of equal parts water and hydrogen peroxide. (Don't swallow it.) Or you can use a cotton swab to apply hydrogen peroxide onto the cut. You may also be prescribed a chlorhexidine solution to rinse with. [place] and floss your teeth gently. Mouth wounds can be painful when eating. You may use an zlip-coj-fttqsia local numbing solution for pain relief. If this isn't available, you may use any numbing solution intended for teething babies. You may apply this directly to the sores with a cotton-tip swabor with your clean finger. Always wash your hands before and after cleaning the wound. Follow-up care Follow up with your doctor as advised. Ask your doctor how long stitches should be left in place. Be sure to return for stitch removal as directed. If dissolving stitches were used in the mouth, these should fall out or dissolve on their own. If tape closures were used, remove them yourself when your doctor advises if they haven't fallen off on their own. If skin glue was used, the film will wearoff by itself. Try to keep healing wounds out of direct sunlight for the first couple of months to try to lessen scarring. When to get medical advice Contact your doctor right away if you have: ? Signs of infection, including increasing pain in the wound, increasing wound redness or swelling,or pus or bad odor coming from the wound. ? A fever of 100.4??F (38.??C) or higher, or as advised by your doctor. ? Chills. ? Stitches or rony that come apart or fall out, or surgical tape that falls off before 7 days and the wound appears to be reopening. ? Wound edges that reopen. ? Wound color changes. ? Numbness around the wound after any numbing medicine should have worn off. ? Decreased movement or stiffness around the injured area. Call 911 Call 911 if you can't control the wound bleeding with direct pressure. Last Reviewed Date: 2025 00:00:00 ?? [id number] [employer]. All rights reserved. This information is not intended as a substitute for professional medical care. Always follow your healthcare professional's instructions. * Discharge Summary - Kashmir Stoll MD - 08/22/2025 9:25 AM EDT Images from the original note were not included. Hospitalization Admit Date/Time: 08/22/2025 4:48 AM Admitting Attending: Dr Wolff Discharge Date: 08/22/25 Discharge Attending Physician: Ky Guerrero MD PCP name and Address: Lizandro Khan, VICKY [address] / [place] [address] Referring provider name and address: Kal Wall MD [address] [place] [address] [place] [address] Chief Concern, Brief History of Present Illness, and Hospital Course Jose Sims is a 64 y.o. female on eliquis for afib presenting after a mechanical fall into a windowsill. Initially hypotensive, improved with time. Initially taken to OSH where CT head could not rule out SAH. Only complaining of chronic pain. She was transferred to for higher level of care in setting of CT not being able to rule out SAH. Patient arrived to [facility] with improv ed hemodynamics, no longer noting to be hypotensive. She states she is on oxygen at baseline. 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 Last dose of chemotherapy was last month. Her PMHx is also significant for COPD, CAD, and HTN. During her hospital stay, CT head, CXR, and pelvis XR were evaluated and theywere negative for acute injuries. Oral& Maxillofacial surgery was consulted for a laceration ofthe ear lobe, which was sutured at the bedside. She has remained hemodynamically stable and normotensive. UA showed UTI and she was treated with fosfomycin 3g. On 08/22/25, she was deemed safe to discharge home with outpatient follow up by OMFS and her PCP. Surgeries and Procedures Repair of ear lobe laceration. Medication List .. acetaminophen 500 MG tablet Commonly known as: Tylenol 1 tab every 4-6 hours PRN albuterol (2.5 MG/3ML) 0.083% nebulizer solution Commonly known as: Proventil inhale ONE vial (3ml) via nebulizer EVERY 6 HOURS NEEDED FOR 10 DAYS apixaban 5 MG tablet Commonly known as: Eliquis Take 1 tablet by mouth twice a day. atorvastatin 80 MG tablet Commonly known as: Lipitor Take 1 tablet by mouth. bumetanide 2 MG tablet Commonly known as: Bumex Take 1 tablet by mouth twice a day. busPIRone 5 MG tablet Commonly known as: Buspar Take 1 tablet (5 mg) by mouth 2 (two) times a day. carvedilol 6.25 MG tablet Commonly known as: Coreg Take 1 tablet (6.25 mg) by mouth 2 (two) times a day with meals for 7 days. cyclobenzaprine 10 MG tablet Commonly known as: Flexeril Take 1 tablet (10 mg) by mouth at night if needed for muscle spasms. * dexamethasone 2 MG tablet Commonly known as: Decadron Take 2 tablets (4 mg) by mouth 4 (four) times a day for 4 days, THEN 2 tablets (4 mg) 3 (three) times a day for 4 days, THEN 2 tablets (4 mg) 2 (two) times a day for 4 days, THEN 1 tablet (2 mg) 2 (two) times a day for 18 days. Start taking on: November 22, 2024 * dexamethasone 4 MG tablet Commonly known as: Decadron Take 2 tablets by mouth 2 times a day. diphenoxylate-atropine 2.5-0.025 MG tablet Commonly known as: Lomotil Take 1 tablet by mouth 4 times a day as needed. DULoxetine [address] capsule Commonly known as: Cymbalta Take 1 capsule (60 mg) by mouth 1 (one) time each day. Do not crush or chew. empagliflozin 10 MG Commonly known as: Jardiance Take 1 tablet by mouth 1 time each day. ergocalciferol 50 MCG (2000 UT) capsule Commonly known as: Vitamin D-2 Take 1 capsule by mouth. folic acid 1 MG tablet Commonly known as: Folvite Take 1 tablet (1 mg) by mouth 1 (one) time each day. furosemide 20 MG tablet Commonly known as: Lasix Take 1 tablet (20 mg) by mouth 1 (one) time each day for 7 days. gabapentin 400 MG capsule Commonly known as: Neurontin Take 2 capsules (800 mg) by mouth 2 (two) times a day. Take 1 capsule (400 mg) by mouth daily at lunch in addition to the 800 mg BID doses. ipratropium-albuterol 0.5-2.5 mg/3 mL nebulizer solution Commonly known as: Duo-Neb 3 mL every 6 hours as needed. isosorbide dinitrate 30 MG tablet Commonly known as: Isordil Take 1 tablet (30 mg) by mouth 2 (two) times a day for 7 days. isosorbide mononitrate 20 MG tablet Take 1 tablet (20 mg) by mouth twice a day. levETIRAcetam 500 MG tablet Commonly known as: Keppra Take 2 tablets (1,000 mg) by mouth 2 (two) times a day. lisinopril 10 MG tablet Take 1 tablet (10 mg) by mouth 1 (one) time each day for 7 days. loratadine 10 MG tablet Commonly known as: Claritin Take 1 tablet by mouth daily. magnesium oxide 400 (240 Mg) MG tablet Commonly known as: Mag-Ox Take 1 tablet by mouth. metFORMIN 500 MG tablet Commonly known as: Glucophage Take 1 tablet by mouth daily with breakfast and dinner. montelukast 10 MG tablet Commonly known as: Singulair Take 1 tablet (10 mg) by mouth every night. nicotine 21 MG/24HR patch Commonly known as: Nicoderm CQ Place 1 patch on the skin 1 (one) time each day over 24 hours. ondansetron 8 MG tablet Commonly known as: Zofran Take 1 tablet by mouth every 8 hours as needed for nausea or vomiting. ondansetron ODT 8 MG disintegrating tablet Commonly known as: Zofran-ODT DISSOLVE 1 TABLET ON TONGUE FOUR TIMES DAILY NEEDED FOR NAUSEA OR VOMITING pantoprazole 40 MG EC tablet Commonly known as: Protonix Take 1 tablet by mouth daily. potassium chloride ER 10 MEQ ER capsule Commonly known as: Micro-K take 1 capsule by mouth twice daily with food prochlorperazine 10 MG tablet Commonly known as: Compazine take 1 tablet by mouth every 6 hours as needed for nausea or vomiting sertraline 100 MG tablet Commonly known as: Zoloft Take 1 tablet (100 mg) by mouth 1 (one) time each day. Take with 25mg tab for total daily dose of 125mg daily topiramate 100 MG tablet Commonly known as: Topamax Take 1 tablet (100 mg) by mouth 1 (one) time each day. valproic acid 250 MG/5ML oral liquid Commonly known as: Depakene Take 5 mL by mouth 3 times a day. Xarelto 2.5 MG tablet Generic drug: rivaroxaban Take 1 tablet by mouth 2 times a day. * This list has 2 medication(s) that are the same as other medications prescribed for you. Read thedirections carefully, and ask your doctor or other care provider to review them with you. Where to Get Your Medications Information about where to get these medications is not yet available Ask your nurse or doctor about these medications acetaminophen 500 MG tablet Discharge Diagnosis Medical Problems Active and Resolved Hospital Problems Hospital Fall Laceration of left earlobe Post Discharge Instructions Discharge instructions - Apply bacitracin to wound BID x 3 days - Petroleum jelly or aquaphor to wound BID x 3 weeks - Sunscreen to wound after 3 weeks for at least 6 months and wear a hat when in direct sunlight - Keep wounds moist and clean: free of crusting, dry blood, and debris - Ok to shower. Let water run across the laceration sites. May fully submerge in water starting in 5 days. Avoid soaking in tubs or pools. - Once skin edges are completely healed, use sunblock or physical protection (e.g., broad-brimmed hat) when out in the sun for 6 months to prevent hyperpigmentation. - Bolster will be removed in clinic in 7 days Follow-Up: Patient Preferred Contact #: [phone] (secondary contact: [phone] ) Signs to Watch For: Increased redness, swelling, warmth, or pus at the wound site. Fever over 100.4??F (38??C). Severe pain not controlled by acetaminophen (Tylenol). Any signs of allergic reaction (rash, swelling of face or mouth, difficulty breathing). Suture Removal:on your follow up appointment.. Activity: Resume normal activities as tolerated, but avoid strenuous exercise or activities that could injurethe ear until it is fully healed. Medication: Take acetaminophen for pain as needed (Up to 1000mg three times per day). Avoid NSAIDs (like ibuprofen or naproxen), as these can increase bleeding risk when combined with apixaban. Follow-Up: Keep your follow-up appointment for suture removal and wound check. If you have any questions or concerns, contact your healthcare provider. - Follow up with your PCP in the upcoming 7-15 days. When to Seek Immediate Care: Uncontrolled bleeding. Signs of infection. Sudden severe headache, weakness, numbness, or difficulty speaking (signs of stroke). Any other concerning symptoms. Outpatient Follow-Up No future appointments. Test Results Pending At Discharge Pending Labs Order Current Status Opiates Confirm Urine In process Pertinent Physical Exam At Time of Discharge GENERAL: Patient was in no acute distress. Awake, alert and responsive when stimulated. GCS 15 HEENT: normocephalic. Pupils were equally round and reactive to light with extraocular movements intact. No hemotympanum. Laceration left ear with sutures and wound dressing in place, hemostatic. MAXILLOFACIAL: Midface stable, no malocclusion. NECK: No C-spine tenderness, trachea midline, no penetrating injuries or lacerations CHEST: Symmetric expansion, non labored; no crepitus; chest nontender to palpation, no penetrating wounds PULM: Clear to auscultation bilaterally. CV: Regular rate and rhythm without obvious murmur ABD: soft, non-tender, non-distended, no penetrating wounds, no abrasions, no seat belt sign. No rebound or guarding. PELVIS: Stable to anterior-posterior and lateral compression, no tenderness to palpation Musculoskeletal: Strength equivalent in 4 extremities, good ROM, sensation intact. No obvious deformities of trunk or limbs, no active bleeding. No TTP along major long bones VASCULAR: Strongly palpable radial/ulnar/femoral/DP/PT pulses bilaterally with brisk less than 2 second capillary refill. NEURO: GCS 15 BACK: No tenderness, step offs, hematoma, or deformities to the C,T,L spine Discharge Disposition/Condition Disposition: Home Condition: Stable (s/sx potential problems absent or manageable) I spent < 30 minutes of patient care and instruction time in preparation for this discharge. Cosigned by Sarah Salas MD at 08/22/2025 12:52 PM EDT Associated attestation - Sarah Salas MD - 08/22/2025 12:52 PM EDT I spent < 30 minutes of patient care and instruction time in preparation for this discharge. * Consults - Rasheed Beck DMD - 08/22/2025 8:58 AM EDTAssociated Order(s): Inpatient consult to oral surgery Images from the original note were not included. Oral & Maxillofacial Surgery Facial Trauma Consult Note 08/22/25 Reason for Consult: L Ear Laceration Requesting Service: Emergency Department Consult Date and Time: 08/22/2025 0700 Inpatient consult to oral surgery Consult performed by: Rasheed Beck DMD Consult ordered by: Ayesha Wolff MD Reason for consult: L Ear Laceration History of Present Illness: Jose Sims is a 64 y.o. female with a PMH of Stage IV lung cancer with metastasis to the brain, COPD, CAD, HTN, Stroke who presents to ED with L ear laceration after a mechanical fallinto windowsill. Patient was hypotensive and lost balance leading to the fall. +BT, -LOC. Patient was taken to OSH for CT scan which showed unclear etiology. Patient was transferred to for further treatment and management. On exam, patient has a 3 cm linear L ear laceration present on the anterior and posterior ear. OMFS was consulted for evaluation and management of L ear laceration. Pt denies diplopia, visions change, face numbness, nasal obstruction, malocclusion, neck pain, hearing loss. History Obtained From: Patient/Family REVIEW OF SYSTEMS: 14 points ROS negative unless otherwise noted in HPI Review of Systems HENT: Positive for ear pain. Negative for ear discharge and hearing loss. Skin: Positive for wound. PAST MEDICAL HISTORY Stage IV lung cancer with metastasis to the brain, COPD, CAD, HTN, Stroke , Presence of IVC filter PAST SURGICAL HISTORY Craniotomy MEDICATIONS Albuterol, apixaban, atorvastatin, bumetanide, buspirone, carvedilol, cyclobenzaprine, dexamethasone, lomotil, duloxetine, empagliflozin, furosemide, gabapentin, lisinopril, zoloft, metformin, xarelto, montelukast, valproic acid ALLERGIES Cephalexin, ciprofloxacin FAMILY HISTORY Denies SOCIAL HISTORY Smoking: denies Alcohol: denies Illicit drugs: denies Objective Visit Vitals BP (!) 126/108 Pulse 73 Temp 36.4 ??C (97.5 ??F) (Oral) Wt 57.4 kg (126 lb 8.7 oz) SpO2 100% BMI 26.45 kg/m?? PHYSICAL EXAMINATION: GEN: AAOx3, Not intubated HEAD: - Scalp: Intact without lacerations, abrasions, or avulsions. No ecchymosis or edema noted. - Face: Intact without lacerations, abrasions, or avulsions. No ecchymosis or edema noted. EARS: - Auricle: Intact without lacerations or avulsions. No auricular hematoma AU - EAC: 3 cm laceration on L ear auricle on anterior and posterior ear, with minimal bleeding with minimal cartilage exposure posterior ear. - TM: Intact w/o perforation. No hemotympanum AU. EYES: - Vision: Grossly intact. No diplopia or other vision changes - Motor: PERRLA, EOMI - Periorbita: No e/o enophthalmos, proptosis, nystagmus, or subconjunctival hemorrhage. NOSE: - External: Intact without lacerations or avulsions. No steps, crepitus, or obvious external deformity - Septum: Intact without fracture or septal hematoma - Internal: No evidence of current or recent epistaxis. No evidence of CSF rhinorrhea ORAL CAVITY/OROPHARYNX: - Mucosa/palate: Intact without lacerations or avulsions. No mucosal ecchymosis. - Teeth: Fair oral hygiene. No fractured, missing, or loose teeth appreciated. Alveolar ridge intact. - Mandible: Occlusion stable and reproducible. No obvious fractures, mobile segments, step deformities - Maxilla: Occlusion stable and reproducible. No obvious fractures, mobile segments, step deformities - Tongue: Intact without laceration - Palate: Intact without laceration or hematoma NECK: - No lacerations. Trachea midline. NEUROLOGICAL - GCS: 15 - Facial Nerve: grossly intact bilaterally in all branches - Trigeminal Nerve: V1, V2, V3 grossly intact bilaterally in all branches - Cochlear Nerve: Hearing grossly normal - CN II-IV, , IX-XII: intact grossly - Gross motor: intact MAXILLOFACIAL/ SKULL - Skull Base: Intact, no steps or crepitus. No Rand's sign. - Frontal/Supraorbital Rims: Intact, no steps or crepitus. - Nasoorbitalethmoid Complex: Intact, no telecanthus. - Zygoma/Infraorbital Rims: Intact, no steps or crepitus. Laboratory: CBC WBC 2.43 (L) Hb 7.6 (L) Plt 57 (L) Hct 23.3 (L) ANC ?? INR 1.6 (H), PTT 31, Anti-Xa >2.00 (HH) BMP Na 139 Cl 104 BUN 24 (H) Glu 89 K 4.3 Co2 26 Cr 1.39 (H) Ca 8.4 (L) iCa ?? Mg ??, Phos ?? Lactate ?? Imaging: CT Head wo IV Contrast Result Date: 08/22/2025 No acute intracranial abnormality. CRITICAL RESULT: No. COMMUNICATION: Per this written report. Drafted by Dwayne Wright MD on 08/22/2025 5:47 AM Final report signed by Dwayne Wright MD on 08/22/2025 5:52 AM Radiographic Interpretation: I have reviewed the imaging above and agree with the radiologist interpretation. Assessment/Plan Jose Sims is a 64 y.o. 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 On examination and review of relevant imaging the patient was found to have L ear auricle laceration without facial fractures. #L Ear Auricle Laceration: - Closed laceration at bedside - see procedure note below - All sutures resorbable - Apply bacitracin to wound BID x 3 days - Petroleum jelly or aquaphor to wound BID x 3 weeks - Sunscreen to wound after 3 weeks for at least 6 months and wear a hat when in direct sunlight - Keep wounds moist and clean: free of crusting, dry blood, and debris - Ok to shower. Let water run across the laceration sites. May fully submerge in water starting in 5 days. Avoid soaking in tubs or pools. - Once skin edges are completely healed, use sunblock or physical protection (e.g., broad-brimmed hat) when out in the sun for 6 months to prevent hyperpigmentation. - Bolster will be removed in clinic in 5 days Follow-Up: Patient Preferred Contact #: [phone] (secondary contact: [phone] ) Will arrange F/U with OMFS ([facility] [employer]) in 5 days for re-evaluation [facility] Department of Oral & Maxillofacial Surgery [address] [place] [address] Fifth Floor, Room [address] [place], [place] [id number] Dispo: Continue Current Level of Care Procedures: Procedure: Complex laceration repair of L Ear Auricle laceration Findings: See physical exam for laceration descriptions DESCRIPTION OF PROCEDURE: Informed verbal consent was obtained. The laceration was then infiltratedwith local anesthetic in the form of 10 ml of 1% lidocaine with 1:100,000 epinephrine. Next, the laceration was thoroughly irrigated with 0.9% normal saline to remove all identifiable debris and crusting from the wound. The laceration was then prepped and draped in the usual sterile fashion using Betadine prep. Next, the laceration was explored. Hemostasis achieved. After this, the laceration wasclosed in layers using 3-0 Vicryl in a deep dermal fashion followed by closure of the skin using 5-0 fast-gut. Bolster is in place secured with 3-0 Silk suture. The patient tolerated the procedure well and there were no immediate complications. Rasheed Beck DMD Cosigned by Bo Mclain DMD, MD at 08/27/2025 7:37 AM EDT * Assessment & Plan Note - Nabila Milian MD - 08/22/2025 8:39 AM EDT Associated Problem(s): Fall Repeat head CT * Assessment & Plan Note - Nabila Milian MD - 08/22/2025 8:39 AM EDT Associated Problem(s): Laceration of left earlobe OMFS consult * H&P - Nabila Milian MD - 08/22/2025 4:54 AM EDTAssociated Order(s): Consult to Trauma Surgery Trauma Alert? Yes Trauma Alert Red Consult to Trauma Surgery Consult performed by: Nabila Milian MD Consult ordered by: Ayesha Wolff MD Time of Consultation: 451 Time of Trauma Evaluation: 451 Arrival Date: 08/22/2025 Arrival Time: 451 Referring Hospital: [facility] Injury Date: 08/22/2025 Injury Time: unknown Transport Mode: Mode of Arrival: Ambulance Mechanism of Injury Mechanical Fall Farm Related Injury: no Work Related Injury: no History Of Present Illness Jose Sims is a 64 y.o. female on eliquis for afib presenting after a mechanical fall into a windowsill. Initially hypotensive, improved with time. Initially taken to OSH where CT head could not rule out SAH. Only complaining of chronic pain. She was transferred to for higher level of care in setting of CT not being able to rule out SAH. Patient arrived to [facility] with improv ed hemodynamics, no longer noting to be hypotensive. She states she is on oxygen at baseline. She has a history of lung cancer for which she is being treated with chemotherapy through her port. She eats last dose of chemotherapy she had was last month. She also has a history of brain cancer in the past. She is on Eliquis, unsure of last dose. Old Chart Reviewed: yes Total fluids given prior to arrival 0 ml. Loss of Consciousness: no Past Medical History She has a past medical history of Cancer (CMS/HCC), COPD (chronic obstructive pulmonary disease), Coronary artery disease, Hypertension, Lung cancer (CMS/HCC), Presence of IVC filter, and Stroke (CMS/HCC). Reviewed as documented above Surgical History She has a past surgical history that includes Craniotomy. Reviewed as documented above Family History Family History[1] Reviewed as documented above Social History She reports that she has been smoking cigarettes. She started smoking about 30 years ago. She has a15.4 pack-year smoking history. She has never used smokeless tobacco. She reports that she does notdrink alcohol and does not use drugs. Reviewed as documented above Allergies Cephalexin and Ciprofloxacin Reviewed as documented above Medications Current Medications[2] Reviewed as documented above Occupational History Occupational history[3] Employer: No address on file. Reviewed as documented above Immunizations not reviewed VACCINE / DOSE Flu Tetanus Pneumovax Shingles Review of Systems Relevant review of systems was obtained as able and is negative unless stated above in HPI. Physical exam GENERAL: Patient was in no acute distress. Awake, alert and responsive when stimulated. GCS 15 HEENT: normocephalic. Pupils were equally round and reactive to light with extraocular movements intact. No hemotympanum. Laceration left ear hemostatic involving cartilage MAXILLOFACIAL: Midface stable, no malocclusion. NECK: No C-spine tenderness, trachea midline, no penetrating injuries or lacerations CHEST: Symmetric expansion, non labored; no crepitus; chest nontender to palpation, no penetrating wounds PULM: Clear to auscultation bilaterally. CV: Regular rate and rhythm without obvious murmur ABD: soft, non-tender, non-distended, no penetrating wounds, no abrasions, no seat belt sign. No rebound or guarding. PELVIS: Stable to anterior-posterior and lateral compression, no tenderness to palpation Musculoskeletal: Strength equivalent in 4 extremities, good ROM, sensation intact. No obvious deformities of trunk or limbs, no active bleeding. No TTP along major long bones VASCULAR: Strongly palpable radial/ulnar/femoral/DP/PT pulses bilaterally with brisk less than 2 second capillary refill. NEURO: CN 2-12 grossly intact and symmetrical bilaterally. No focal neurological defects. BACK: No tenderness, step offs, hematoma, or deformities to the C,T,L spine Rectal exam was performed based on emergent need after obtaining verbal consent demonstrating normal rectal tone, no blood per rectum. Last Recorded Vitals Blood pressure (!) 126/108, pulse 73, temperature 36.4 ??C (97.5 ??F), temperature source Oral, resp. rate 13, weight 57.4 kg (126 lb 8.7 oz), SpO2 100%. [place] Mike Coma Scale Best Eye Response: Spontaneous Best Verbal Response: Oriented Best Motor Response: Follows commands [place] Coma Scale Score: 15 Intubated No Recent Results Labs in last 18 hours CBC WBC 2.43 (L) Hb 7.6 (L) Plt 57 (L) Hct 23.3 (L) ANC ?? INR 1.6 (H), PTT 31, Anti-Xa >2.00 (HH) BMP Na 139 Cl 104 BUN 24 (H) Glu 89 K 4.3 Co2 26 Cr 1.39 (H) Ca 8.4 (L) iCa ?? Mg ??, Phos ?? Lactate ?? LFT AST 19 AlkPhos 73 T Prot 6.0 (L) ALK 9 (L) Bili 0.4 Alb ?? D.Bili ?? Radiology TRAUMA SURGERY eFAST EXAM Date of Service: 08/22/25 Patient: Jose Sims Performing Provider: Nabila Milian MD Supervising Provider: Dr. Ayesha Wolff Indication: Fall from standing Complication: None Focused ultrasound exam of the peritoneal space including sub phrenic, Dave???s pouch, splenorenal, superior colic gutters and retro vesicular, pericardial and pleural space performed to evaluatefree fluid or evidence of pneumothorax. Ultrasound Images were archived in [facility]. Findings: Dave???s Pouch absent Retro vesicular Space absent Splenorenal Fossa absent Pericardial space absent Pericardial tamponade absent Pleural Space: Pneumothorax Absent Pleural Fluid Absent Impression: FAST exam: Negative I was present for the entirety of the procedure. I personally interpreted the images obtained. Nabila Milian MD Images personally reviewed and consistent with the following: Plain Films: XR Chest: CT Scans: CT head Impression: CT head: No acute intracranial abnormality. XR Chest Redemonstration of ill-defined opacity in the right medial lung base. Assessment & Plan Fall Present on Admission: Unknown Repeat head CT Laceration of left earlobe Present on Admission: Unknown OMFS consult Jose Sims is a 64 yo F with PMHx significant for afib on Eliquis, lung cancer on chemo, and prior hx brain cancer who presented as a TAR following fall through a windowsill. Patient had equivocal head scan at OSH with transfer to to evaluate for subarachnoid hemorrhage. In the ED, repeat Head CT negative for head bleed. However, patient still noted to have laceration of left earlobe. Faceteam consulted for evaluation. Pending repair of laceration and further recommendations from Face, patient will likely not need admission for trauma in setting of no acute injuries other than her earlobe laceration. Non-Hospital Problems Non-small cell lung cancer metastatic to brain Overview Addendum 11/22/2024 11:35 AM by Marni Fairbanks APRN, DNP NSCLC of right lung Adenocarcinoma diagnosed 10/2022 [...] in size. Patient does not have any A[employer]ENDER symptoms at that time. Follows with radiation Oncology at [facility]. 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 MRI Head w/wo 11/13/2024: 0.3 x 1.1 x 0.9 cm enhancing lesion within the right frontal cortex with mild surrounding vasogenic edema and a small amount of underlying hemorrhage. This likely representsa metastatic lesion and is new from prior exam - See Brain mass for details PORT-a-cath in R chest re-accessed upon arrival Continue to follow up with oncology Brain mass Overview Addendum 11/22/2024 4:36 PM by Marni Fairbanks APRN, DNP MRI head w/wo on 11/13/2024: 0.3X1.1X0.9 cm [...] clinic in 2 weeks Vasogenic brain edema (CMS/HCC) Overview Addendum 11/22/2024 11:36 AM by Marni Fairbanks APRN, DNP See brain mass overview COPD (chronic obstructive pulmonary disease) Overview Addendum 11/22/2024 11:36 AM by Marni Fairbanks APRN, DNP Does not require supplemental 02 at baseline Continue spiriva/dulera home meds Follow up with pulmonary at [facility] CAD (coronary artery disease) Overview Addendum 11/22/2024 11:37 AM by Marni Fairbanks APRN, DNP Cath 04/2024 at [facility]: Nondominant right with a 70% lesion 20% ostial left main. No hemodynamically significant disease of the left anterior descending or the left circumflex. Preserved left ventricularsystolic function with ejection fraction 55 to 60% Continue home meds: carvedilol/ isosorbide/lisinopril ECHO: EF 60-65% Follow up with PCP/cardiology A-fib Overview Addendum 11/22/2024 4:37 PM by Marni Fairbanks APRN, DNP On xarelto at home, hold for 2 weeks post-op per neurosurgery Continue home Coreg Keep K+ 4.0 and greater Keep Mag 2.0 and greater MD (myocardial infarction) Overview Addendum 11/18/2024 6:21 AM by Gne Pérez APRN HX of On warfarin for afib until April 2024--after MD--switched to Xarelto HTN (hypertension) Overview Addendum 11/22/2024 11:42 AM by Marni Fairbanks APRN, DNP Continue home meds: Lisinopril & Coreg Follow up with PCP RLS (restless legs syndrome) Overview Signed 11/17/2024 5:27 PM by Chrystal Izquierdo APRN, DNP Not currently on medications for RLS Monitor symptoms PVD (peripheral vascular disease) Overview Addendum 11/22/2024 11:43 AM by Marni Fairbanks APRN, DNP HX of SCDs while inpatient GERD (gastroesophageal reflux disease) Overview Addendum 11/22/2024 11:43 AM by Marni Fairbanks APRN, DNP Continue PPI Follow up with PCP Smoker Overview Addendum 11/22/2024 11:43 AM by Marni Fairbanks APRN, DNP 0.5 PPD smoking history Smoking cessation and education recommended Complicates all aspects of care and recovery Nicotine patch while inpatient Follow up with PCP Neuropathy Overview Addendum 11/18/2024 6:22 AM by Gen Pérez APRN Gabapentin 800mg BID prescribed as home med; Patient states she doesn't take it all the time and has not taken in the last 3 days due to it making her experience somnolence Hold for now; consider lowering dose on discharge Anxiety and depression Overview Addendum 11/22/2024 11:44 AM by Marni Fairbanks APRN, DNP Continue home Duloxetine & Buspar Follow up with PCP Prediabetes Overview Addendum 11/22/2024 11:44 AM by Marni Fairbanks APRN, DNP Hemoglobin A1c 5.8 on admission Hyperglycemic on admission Likely due to steroid administration as the FSBS at OSH before steroids was WNL SSI while inpatient Follow up with PCP Hypoproteinemia ([facility]/HCC) Overview Addendum 11/22/2024 11:45 AM by Marni Fairbanks APRN, DNP On admission Protein 5.5 & Albumin 3.1 Encourage diet Follow up with PCP Obesity (BMI 30-39.9) Overview Addendum 11/22/2024 11:45 AM by Marni Fairbanks APRN, DNP BMI 31.5 Complicates all aspects of care & recovery Leukocytosis Overview Addendum 11/22/2024 11:45 AM by Marni Fairbanks APRN, DNP WBC is stable Likely secondary to steroid administration Afebrile May need further evaluation in the near future Follow up with PCP Headache Overview Addendum 11/22/2024 11:45 AM by Marni Fairbanks APRN, DNP Continue Dexamethasone PRN Tylenol Follow up with PCP Nabila Milian MD [1] Family History Problem Relation Name Age of Onset Heart disease Mother Diabetes Mother Coronary artery disease Mother Hypertension, benign Mother Coronary artery disease Father Hypertension, benign Father Heart disease Father Diabetes Father Heart disease Sister Cancer Sister Heart disease Brother [2] No current facility-administered medications for this encounter. Current Outpatient Medications Medication Sig Dispense Refill albuterol (Proventil) (2.5 MG/3ML) 0.083% nebulizer solution inhale ONE vial (3ml) via nebulizer EVERY 6 HOURS NEEDED FOR 10 DAYS apixaban (Eliquis) 5 MG tablet Take 1 tablet by mouth twice a day. atorvastatin (Lipitor) 80 MG tablet Take 1 tablet by mouth. bumetanide (Bumex) 2 MG tablet Take 1 tablet by mouth twice a day. busPIRone (Buspar) 5 MG tablet Take 1 tablet (5 mg) by mouth 2 (two) times a day. carvedilol (Coreg) 6.25 MG tablet Take 1 tablet (6.25 mg) by mouth 2 (two) times a day with meals for 7 days. (Patient not taking: Reported on 07/26/2025) 14 tablet 0 cyclobenzaprine (Flexeril) 10 MG tablet Take 1 tablet (10 mg) by mouth at night if needed for muscle spasms. dexamethasone (Decadron) 2 MG tablet Take 2 tablets (4 mg) by mouth 4 (four) times a day for 4 days, THEN 2 tablets (4 mg) 3 (three) times a day for 4 days, THEN 2 tablets (4 mg) 2 (two) times a day for 4 days, THEN 1 tablet (2 mg) 2 (two) times a day for 18 days. (Patient not taking: No sig reported) 108 tablet 0 dexamethasone (Decadron) 4 MG tablet Take 2 tablets by mouth 2 times a day. diphenoxylate-atropine (Lomotil) 2.5-0.025 MG tablet Take 1 tablet by mouth 4 times a day as needed. DULoxetine (Cymbalta) [address] capsule Take 1 capsule (60 mg) by mouth 1 (one) time each day. Do not crush or chew. empagliflozin (Jardiance) 10 MG Take 1 tablet by mouth 1 time each day. ergocalciferol (Vitamin D-2) 50 MCG (2000 UT) capsule Take 1 capsule by mouth. folic acid (Folvite) 1 MG tablet Take 1 tablet (1 mg) by mouth 1 (one) time each day. furosemide (Lasix) 20 MG tablet Take 1 tablet (20 mg) by mouth 1 (one) time each day for 7 days. (Patient not taking: Reported on 07/26/2025) 7 tablet 0 gabapentin (Neurontin) 400 MG capsule Take 2 capsules (800 mg) by mouth 2 (two) times a day. Take 1capsule (400 mg) by mouth daily at lunch in addition to the 800 mg BID doses. 35 capsule 0 gabapentin (Neurontin) 800 MG tablet take 1 tablet by mouth three times daily as directed ipratropium-albuterol (Duo-Neb) 0.5-2.5 mg/3 mL nebulizer solution 3 mL every 6 hours as needed. isosorbide dinitrate (Isordil) 30 MG tablet Take 1 tablet (30 mg) by mouth 2 (two) times a day for 7 days. (Patient not taking: Reported on 07/26/2025) 14 tablet 0 isosorbide mononitrate 20 MG tablet Take 1 tablet (20 mg) by mouth twice a day. levETIRAcetam (Keppra) 500 MG tablet Take 2 tablets (1,000 mg) by mouth 2 (two) times a day. 120 tablet 0 lisinopril 10 MG tablet Take 1 tablet (10 mg) by mouth 1 (one) time each day for 7 days. (Patient not taking: Reported on 07/26/2025) 7 tablet 0 loratadine (Claritin) 10 MG tablet Take 1 tablet by mouth daily. magnesium oxide (Mag-Ox) 400 (240 Mg) MG tablet Take 1 tablet by mouth. metFORMIN (Glucophage) 500 MG tablet Take 1 tablet by mouth daily with breakfast and dinner. montelukast (Singulair) 10 MG tablet Take 1 tablet (10 mg) by mouth every night. nicotine (Nicoderm CQ) 21 MG/24HR patch Place 1 patch on the skin 1 (one) time each day over 24 hours. (Patient not taking: Reported on 07/26/2025) 30 patch 0 ondansetron (Zofran) 8 MG tablet Take 1 tablet by mouth every 8 hours as needed for nausea or vomiting. ondansetron ODT (Zofran-ODT) 8 MG disintegrating tablet DISSOLVE 1 TABLET ON TONGUE FOUR TIMES DAILY NEEDED FOR NAUSEA OR VOMITING pantoprazole (Protonix) 40 MG EC tablet Take 1 tablet by mouth daily. potassium chloride ER (Micro-K) 10 MEQ ER capsule take 1 capsule by mouth twice daily with food prochlorperazine (Compazine) 10 MG tablet take 1 tablet by mouth every 6 hours as needed for nauseaor vomiting sertraline (Zoloft) 100 MG tablet Take 1 tablet (100 mg) by mouth 1 (one) time each day. Take with 25mg tab for total daily dose of 125mg daily topiramate (Topamax) 100 MG tablet Take 1 tablet (100 mg) by mouth 1 (one) time each day. valproic acid (Depakene) 250 MG/5ML oral liquid Take 5 mL by mouth 3 times a day. Xarelto 2.5 MG tablet Take 1 tablet by mouth 2 times a day. [3] Cosigned by Ayesha Wolff MD at 09/01/2025 9:55 PM EDT Associated attestation - Ayesha Wolff MD - 09/01/2025 9:55 PM EDT I saw and evaluated the patient with the resident/fellow. I discussed the case with the resident/fellow and agree with the findings and plan as documented. I was present at time of arrival as Trauma Alert Red. I led or supervised the ATLS evaluation as Trauma Faculty. Primary survey and appropriate adjuncts were completed to assure no immediate life-threatening injuries were identified. eFAST was negative. I was present for the entirety of the procedure and personally interpreted the images in real time. Repeat head CT ordered and pending to better evaluate possible intracranial hemorrhage vs. Metastatic lesions. Ayesha Wolff MD * Consults - Don Mak - 08/22/2025 4:50 AM EDT Pastoral Care Note Referral From: Initiated Pastoral Care Provided For: Patient Shoe Stock Associate responded to a trauma alert red for this patient. Medical staff was tending to patient; nofamily was present at the time of this visit. Patient Profile: Consult Reasons: Trauma alert red Unable to Assess: Unavailable, No family present at this time Spiritual Assessment: Spiritual Issues: Trauma/ crisis Interventions: Interventions Provided: Consulted with care team Pastoral Care Outcomes: * ED Provider Notes - Rebecca Hamilton DO - 08/22/2025 4:48 AM EDT - HPI Chief Complaint Patient presents with Trauma Alert Red This is a 64-year-old female who presents emergency department as a trauma alert red for a fall with hit to the head and an isolated episode of hypotension. She has known history of brain cancer, lung cancer, and is currently on chemotherapy. She has a port in her chest. Known injuries include a laceration to the left ear that is complex and involving the cartilage. CT scans from the outside hospital showed multiple hypodensities in the prune, unclear in etiology. Patient complains of pain in the left ear, however has no other acute complaints. History provided by: Patient and EMS personnel Patient History Past Medical History[1] Surgical History[2] Family History[3] Social History[4] Allergies: Allergies[5] Physical Exam ED Triage Vitals [08/22/25 0453] Temp Heart Rate Resp BP 36.4 ??C (97.5 ??F) 77 15 101/50 SpO2 Temp Source Heart Rate Source Patient Position 100 % Oral Monitor Lying BP Location FiO2 (%) -- -- Physical Exam Vitals and nursing note reviewed. Constitutional: General: She is not in acute distress. Appearance: She is well-developed. HENT: Head: Normocephalic and atraumatic. Ears: Comments: Laceration to the left ear involving cartilage, hemostatic Eyes: Conjunctiva/sclera: Conjunctivae normal. Cardiovascular: Rate and Rhythm: Normal rate and regular rhythm. Heart sounds: No murmur heard. Pulmonary: Effort: Pulmonary effort is normal. No respiratory distress. Breath sounds: Normal breath sounds. Abdominal: Palpations: Abdomen is soft. Tenderness: There is no abdominal tenderness. Musculoskeletal: General: No swelling. Cervical back: Neck supple. Skin: General: Skin is warm and dry. Capillary Refill: Capillary refill takes less than 2 seconds. Neurological: General: No focal deficit present. Mental Status: She is alert and oriented to person, place, and time. Psychiatric: Mood and Affect: Mood normal. Mike Coma Scale Score: 15 ED Course & MDM - Assessment: 64 y.o. female presents to ED with complaint of fall with hit to the head and hypotension. It should be noted that the chronic conditions includes brain cancer and lung cancer, which complicates the clinical picture because it Comorbidities: increases the amount and complexity of data to be reviewed Differential Diagnosis: Intracranial hemorrhage, intracranial mass, laceration, cartilage injury ATLS initiated on arrival. Trauma surgery lead initial resuscitation. Primary survey shows intact airway, bilateral breath sounds, intact distal pulses, GCS of 15. E fast was negative. Secondary survey notable for laceration as previously discussed of the left ear, involving cartilage. Trauma surgery decided to proceed with a repeat CT head at this time. Repeat CT head shows no acute findings. In order to fully explore the differential diagnosis the following treatments and tests were ordered: All Other Orders Ordered Status Ordering Provider 08/22/[address] Head wo IV Contrast Once Final result HETAL GARRIDO 08/22/25 0453 Vital Signs Every 1 hour Acknowledged HETAL GARRIDO 08/22/25 045 Neuro checks Every 1 hour Acknowledged HETAL GARRIDO 08/22/25 045 Anti Xa Level Low Molecular Weight Once Final result REBECCA HAMILTON 08/22/25 0453 2 Large Bore IV's Continuous Acknowledged HETAL GARRIDO 08/22/25 045 Cardiac Monitoring Until discontinued Acknowledged HETAL GARRIDO 08/22/25 045 Continuous Pulse Oximetry Until discontinued Acknowledged HETAL GARRIDO 08/22/25 045 Oxygen Therapy - Device: Nasal Cannula Continuous Order ID Start Status Ordering Provider [id number] 08/22/25 045 Completed HETAL GARRIDO [id number] 08/22/25799 Acknowledged HETAL GARRIDO [id number] 08/22/251999 Acknowledged HETAL GARRIDO 08/23/25799 Scheduled HETAL GARRIDO 08/23/251999 Scheduled HETAL GARRIDO 08/24/25 08 Scheduled HEMA, HETAL Moreno 08/24/251999 Scheduled HETAL GARRIDO 08/25/25 08 Scheduled HEMA, HETAL Moreno 08/25/251999 Scheduled HETAL GARRIDO 08/26/25 08 Scheduled HETAL GARRIDO 08/26/251999 Scheduled HETAL GARRIDO Acknowledged HETAL GARRIDO 08/22/25 0453 Trauma shock panel blood gas STAT Final result HETAL GARRIDO 08/22/25 0453 CMP STAT Final result HETAL GARRIDO 08/22/25 0453 CBC w/o diff STAT Comments: Trauma Alert Red Final result HETAL GARRIDO 08/22/25 0453 PT-INR STAT Comments: Trauma Alert Red Final result HETAL GARRIDO 08/22/25 0453 APTT (PTT) STAT Comments: Trauma Alert Red Final result HETAL GARRIDO 08/22/25 0453 Ethyl Alcohol Plasma STAT Comments: Trauma Alert Red Final result HETAL GARRIDO 08/22/25 0453 Drug Abuse Screen, Urine STAT Comments: Trauma Alert Red Acknowledged HETAL GARRIDO 08/22/25 0453 Urinalysis with reflex microscopic (Culture NOT Included) STAT Comments: Trauma Alert Red Acknowledged HETAL GARRIDO 08/22/25 0453 Test Qualitative Plasma STAT Comments: Trauma Alert Red Final result HETAL GARRIDO 08/22/25 0453 TEG Global Hemostasis with Lysis STAT Comments: Trauma Alert Red Final result HETAL GARRIDO 08/22/25 0453 Type and Screen Start now Comments: Trauma Alert Red Final result HETAL GARRIDO 08/22/25 0453 Prepare/Release Uncrossmatched Blood Once Comments: I have ordered the release and transfusion of the blood products including the red cells,plasma, platelets and cryo during the medical emergency circumstance. IN THE EVENT uncrossmatched blood is transfused, I am certifying that the clinical situation was sufficiently urgent to require the release/transfusion of blood before completion of compatibility testing. I understand that the possibility of a hemolytic reaction or other untoward event exists with incomplete transfusion workup. Acknowledged HETAL GARRIDO 08/22/25452 XR Chest 1 View One time imaging Comments: Trauma Alert, bedside exam Final result HETAL GARRIDO 08/22/25452 Once Comments: Trauma Alert, bedside exam Canceled HETAL GARRIDO 08/22/25452 Consult to Trauma Surgery Once Specialty: Trauma Surgery Provider: (Not yet assigned) Acknowledged LUCINDAPAIGEHETAL COONEY 08/22/25452 Trauma Alert Red Notification Once Completed HETAL GARRIDO Social Determinates of Health Risks (including Economic Stability, Education and level of understanding, Healthcare access and quality and concerning social factors): None identified on this visit Ultimately, this patient was was signed out to the oncoming provider (Signed Out) Patient care assumed by oncoming provider, Dr. Good, at shift change, tentative planat the time of sign-out was follow up Trauma surgery ultimate disposition ED Prescriptions None - [1] Past Medical History: Diagnosis Date Cancer (CMS/HCC) COPD (chronic obstructive pulmonary disease) Coronary artery disease Hypertension Lung cancer (CMS/HCC) [...] packs/day: 0.50 Average packs/day: 0.5 packs/day for 30.8 years (15.4 ttl pk-yrs) Types: Cigarettes Start date: 11/17/1994 Smokeless tobacco: Never Substance Use Topics Alcohol use: Never Drug use: Never [5] Allergies Allergen Reactions Cephalexin Itching Ciprofloxacin Nausea Rebecca Hamilton DO Resident 08/22/25 0655 Cosigned by Sandro Terrazas MD at 08/23/2025 2:31 AM EDT Associated attestation - Sandro Terrazas MD - 08/23/2025 2:31 AM EDT I saw and evaluated the patient with the resident/fellow. I discussed the case with the resident/fellow and agree with the findings and plan as documented. * ED Triage Notes - Dorinda Garcia RN - 08/22/2025 4:48 AM EDT Patient presents as a TAR from OSH following fall on 08/21 around 21:30. Per EMS, pt stumbled and fell into window sill. Pt has laceration to L ear. Pt currently receiving chemo for lung cx. Hx of brain cx. Pt hypotensive at OSH. * Progress Notes - Alyse Good MD - 08/22/2025 4:48 AM EDT Images from the original note were not included. ED TRANSFER OF CARE NOTE Transferring provider: Joy Transferring attending: Mk JOSE Time: 0640 I received sign-out and accepted care of this patient from the previous ED providers caring for this patient. I reviewed the patient's history, exam, work- up, and treatment plan up to this point. Please see the primary ED Provider Note for complete elements of the history, physical exam, and ED course. PERTINENT HISTORY: In brief, Jose iSms is a 64 y.o. female with relevant PMH brain cancer, lung cancer, and is currently on chemotherapy. who presented to the ED for evaluation of trauma alert red for a fall. PENDING: I accepted care of this patient from the previous provider while waiting for evaluation and/or recommendations from: Trauma Surgery. Ultimately, the aforementioned service recommended discharge home after she was evaluated by [facility] ED Medication Administration from 08/22/2025 0315 to 08/22/2025 1623 Date/Time Order Dose Route Action 08/22/2025 0748 EDT lidocaine-EPINEPHrine (Xylocaine W/EPI) 1 %-1:837103 injection 20 mL 20 mL Infiltration Given by Other 08/22/2025 1245 EDT fosfomycin (Monurol) packet 3 g 3 g Oral Given 08/22/2025 1305 EDT bacitracin (425g jar) ointment 1 Jar -- Topical Canceled Entry ED COURSE: Clinical Impressions as of 08/22/25 1623 Laceration of ear lobe, unspecified laterality, subsequent encounter Ultimately, this patient Was discharged Home (Discharge) The encounter diagnosis was Laceration of ear lobe, unspecified laterality, subsequent encounter. . Patient was counseled on the diagnoses. Discharge medications if any are listed below. Listed medications are thought be either curative for listed diagnoses or will help control ongoing symptoms. Patient is requested to follow up with Patient's Primary Care Provider and [facility] in order to obtain routine follow-up and specialty care. Instructions on follow up as well as precautions to return to the ER provided verbally by the EM provider, as well as written in patients discharge education packet. ED Prescriptions Medication Sig Dispense Start Date End Date Auth. Provider acetaminophen (Tylenol) 500 MG tablet 1 tab every 4-6 hours PRN -- 08/22/2025 -- Kashmir Stoll MD Discharge Instructions Discharge instructions - Apply bacitracin to wound BID x 3 days - Petroleum jelly or aquaphor to wound BID x 3 weeks - Sunscreen to wound after 3 weeks for at least 6 months and wear a hat when in direct sunlight - Keep wounds moist and clean: free of crusting, dry blood, and debris - Ok to shower. Let water run across the laceration sites. May fully submerge in water starting in 5 days. Avoid soaking in tubs or pools. - Once skin edges are completely healed, use sunblock or physical protection (e.g., broad-brimmed hat) when out in the sun for 6 months to prevent hyperpigmentation. - Bolster will be removed in clinic in 7 days Follow-Up: Patient Preferred Contact #: [phone] (secondary contact: [phone] ) Signs to Watch For: Increased redness, swelling, warmth, or pus at the wound site. Fever over 100.4??F (38??C). Severe pain not controlled by acetaminophen (Tylenol). Any signs of allergic reaction (rash, swelling of face or mouth, difficulty breathing). Suture Removal:on your follow up appointment.. Activity: Resume normal activities as tolerated, but avoid strenuous exercise or activities that could injurethe ear until it is fully healed. Medication: Take acetaminophen for pain as needed (Up to 1000mg three times per day). Avoid NSAIDs (like ibuprofen or naproxen), as these can increase bleeding risk when combined with apixaban. Follow-Up: Keep your follow-up appointment for suture removal and wound check. If you have any questions or concerns, contact your healthcare provider. When to Seek Immediate Care: Uncontrolled bleeding. Signs of infection. Sudden severe headache, weakness, numbness, or difficulty speaking (signs of stroke). Any other concerning symptoms. Disposition Discharge AVS (Spanish Snapshot) - Printed 08/22/2025 Follow-Ups: Follow up with Kal Wall MD - Alyse Good MD Cosigned by Ky Guerrero MD at 08/27/2025 8:44 PM EDT Associated attestation - Ky Guerrero MD - 08/27/2025 8:44 PM EDT I saw and evaluated the patient with the resident/fellow. I discussed the case with the resident/fellow and agree with the findings and plan as documented. documented in this encounter Plan of Treatment Upcoming Encounters Date Type Department Care Team (Late st Contact Info) Description 10/18/2025 9:30 AM EST Office Visit [place] [facility] [address] [place] [address] Pepe Cabrera MD [address] [place] [address] documented as of this encounter Procedures Procedure Name Priority Date/Time Associated Diagnosis Comments URINALYSIS MICROSCOPIC FOR UA REFLEX STAT 08/22/2025 10:29 AM EDT OPIATES, LCMSMS, URINE STAT 10:29 AM EDT DRUG ABUSE SCREEN, URINE STAT 08/22/2025 10:29 AM EDT URINALYSIS WITH REFLEX MICROSCOPIC STAT 08/22/2025 10:29 AM EDT ANTI XA LEVEL LOW MOLECULAR WEIGHT HEPARIN Routine 08/22/2025 5:[address] HEAD WO IV CONTRAST STAT 5:15 AM EDT XR CHEST 1 VIEW STAT 08/22/2025 5:08 AM EDT TRAUMA SHOCK PANEL BLOOD GAS STAT 08/22/2025 5:02 AM EDT ETHYL ALCOHOL PLASMA STAT 08/22/2025 5:02 AM EDT TEG GLOBAL HEMOSTASIS WITH LYSIS STAT 08/22/2025 5:02 AM EDT APTT STAT 08/22/2025 5:02 AM EDT PROTHROMBIN TIME(PT) / INR STAT 08/22/2025 5:02 AM EDT CBC W/O DIFFERENTIAL STAT 08/22/2025 5:02 AM EDT TYPE AND SCREEN Timed 08/22/2025 5:02 AM EDT TEST QUALITATIVE PLASMA STAT 08/22/2025 5:02 AM EDT COMPREHENSIVE METABOLIC PANEL, PLASMA STAT 08/22/2025 5:02 AM EDT OXYGEN THERAPY STAT 08/22/2025 4:53 AM EDT OXYGEN THERAPY STAT 08/22/2025 4:53 AM EDT documented in this encounter Results * (ABNORMAL) Opiates Confirm Urine (08/22/2025 10:29 AM EDT) Codeine <50 <50 ng/mL 08/24/2025 3:25 PM EDT [facility] Codeine Glucuronide <50 <50 ng/mL 08/24/2025 3:25 PM EDT [facility] Desmethyl Tramadol <50 <50 ng/mL 08/24/2025 3:25 PM EDT [facility] EDDP - Methadone Metabolite <50 <50 ng/mL 08/24/2025 3:25 PM EDT [facility] Hydrocodone <50 <50 ng/mL 08/24/2025 3:25 PM EDT [facility] Hydromorphone <50 <50 ng/mL 08/24/2025 3:25 PM EDT [facility] Hydromorphone Glucuronide <50 <50 ng/mL 08/24/2025 3:25 PM EDT [facility] Comment:Metabolite of Hydrom orphone Meperidine <50 <50 ng/mL 08/24/2025 3:25 PM EDT [facility] Methadone <50 <50 ng/mL 08/24/2025 3:25 PM EDT [facility] 6 Monoacetyl morphine <10 <10 ng/mL 08/24/2025 3:25 PM EDT [facility] Morphine 245(H) <50 ng/mL 08/24/2025 3:25 PM EDT [facility] Morphine Glucuronide >1,000(H) <50 ng/mL 08/24/2025 3:25 PM EDT [facility] Comment:Metabolite of Morphi ne Naloxone <50 <50 ng/mL 08/24/2025 3:25 PM EDT [facility] Naloxone Glucuronide <50 <50 ng/mL 08/24/2025 3:25 PM EDT [facility] Comment:Metabolite of Naloxo ne Normeperidine <50 <50 ng/mL 08/24/2025 3:25 PM EDT [facility] Tramadol <50 <50 ng/mL 08/24/2025 3:25 PM EDT [facility] Urine Urine specimen obtained by clean catch procedure / Unknown Non-blood Collection / Unknown 08/22/2025 10:29 AM EDT 08/22/2025 10:40 AM EDT Narrative [facility] - 08/24/2025 3:25 PM EDT Drug analysis is confirmed by LC-MS/MS (LC Tandem Mass Spectrometry) on Urine specimens. This test was developed and its performance characteristics determined by [facility]. It has not been cleared or approved by the FDA. The laboratory is regulated under CLIA as qualified to perform high-complexity testing. This test is used for clinical purposes. Testing is performed at the [facility], Special [facility] Laboratory. Ayesha Wolff MD LAB URINE ORDERABLES Millie l Result Performing Organization Address [facility] Co de Phone Number [facility] [address] [place] [address] * Urinalysis Microscopic Examination (08/22/2025 10:29 AM EDT) Urine Urine specimen obtained by clean catch procedure / Unknown Non-blood Collection / Unknown 08/22/2025 10:29 AM EDT 08/22/2025 10:40 AM EDT Ayesha Wolff MD LAB URINE ORDERABLES Millie l Result Performing Organization Address [facility] de Phone Number [facility] [address] [place] [address] * (ABNORMAL) Urinalysis with reflex microscopic (Culture NOT Included) (08/22/2025 10:29 AM EDT) Color, Urine Yellow LAB URINALYSIS - AUTOMATED METHOD 08/22/2025 11:21 AM EDT [facility] Clarity, Urine Clear LAB URINALYSIS - AUTOMATED METHOD 08/22/2025 11:21 AM EDT [facility] Spec [place], Urine 1.014 1.005 - 1.030 LAB URINALYSIS - AUTOMATED METHOD 08/22/2025 11:21 AM EDT [facility] pH, Urine 6.0 5.0 - 8.0 LAB URINALYSIS - AUTOMATED METHOD 08/22/2025 11:21 AM EDT [facility] Protein, Urine Negative Negative mg/dL LAB URINALYSIS - AUTOMATED METHOD 08/22/2025 11:21 AM EDT [facility] Glucose, Urine Negative Negative mg/dL LAB URINALYSIS - AUTOMATED METHOD 08/22/2025 11:21 AM EDT [facility] Ketones, Urine Negative Negative mg/dL LAB URINALYSIS - AUTOMATED METHOD 08/22/2025 11:21 AM EDT [facility] Blood, Urine Negative Negative LAB URINALYSIS - AUTOMATED METHOD 08/22/2025 11:21 AM EDT [facility] Bilirubin, Urine Negative Negative LAB URINALYSIS - AUTOMATED METHOD 08/22/2025 11:21 AM EDT [facility] Urobilinogen, Urine 0.2 0.2 to 1.0 mg/dL LAB URINALYSIS - AUTOMATED METHOD 08/22/2025 11:21 AM EDT [facility] Leukocytes, Urine Moderate(A) Negative LAB URINALYSIS - AUTOMATED METHOD 08/22/2025 11:21 AM EDT [facility] Nitrite, Urine Negative Negative LAB URINALYSIS - AUTOMATED METHOD 08/22/2025 11:21 AM EDT [facility] RBC, Urine <1 0 to 3 /HPF LAB URINALYSIS - AUTOMATED METHOD 08/22/2025 11:21 AM EDT [facility] Comment:This result was prev iously suppressed from the chart. WBC, Urine >50(A) 0 to 5 /HPF LAB URINALYSIS - AUTOMATED METHOD 08/22/2025 11:21 AM EDT [facility] Comment:This result was prev iously suppressed from the chart. Squamous Epithelial Cells 0 - 2 0 to 5 /HPF LAB URINALYSIS - AUTOMATED METHOD 08/22/2025 11:21 AM EDT [facility] Comment:This result was prev iously suppressed from the chart. Hyaline Casts 0 - 2 0 to 5 /LPF LAB URINALYSIS - AUTOMATED METHOD 08/22/2025 11:21 AM EDT [facility] Comment:This result was prev iously suppressed from the chart. Bacteria, Urine Present Negative LAB URINALYSIS - AUTOMATED METHOD 08/22/2025 11:21 AM T [facility] Comment:This result was prev iously suppressed from the chart. Urine Urine specimen obtained by clean catch procedure / Unknown Non-blood Collection / Unknown 08/22/2025 10:29 AM EDT 08/22/2025 10:40 AM EDT Ayesha Wolff MD LAB URINE ORDERABLES Millie l Result Performing Organization Address City/[facility]/ZIP Co de Phone Number [facility] [address] [place] [address] * Drug Abuse Screen, Urine (08/22/2025 10:29 AM EDT) [facility] Amphetamine Screen Urine Negative Cutoff: 500 ng/mL 08/22/2025 11:05 AM EDT [facility] Benzodiazepines Screen Urine Negative Cutoff: 200 ng/mL 08/22/2025 11:05 AM EDT [facility] Cannabinoid Screen Urine Negative Cutoff: 50 ng/mL 08/22/2025 11:05 AM EDT [facility] Cocaine Screen Urine Negative Cutoff: 300 ng/mL 08/22/2025 11:05 AM EDT [facility] Barbiturate Screen Urine Negative Cutoff: 200 ng/mL 08/22/2025 11:05 AM EDT [facility] Opiate Screen Urine Presumptive positive. Confirmation by LC-MS/MS to follow. Cutoff: 300 ng/mL 08/22/2025 11:05 AM EDT [facility] Methadone Screen Urine Negative Cutoff: 300 ng/mL 08/22/2025 11:05 AM EDT [facility] Buprenorphine Screen Urine Negative Cutoff: 10 ng/mL 08/22/2025 11:05 AM EDT [facility] Fentanyl Screen Urine Negative Cutoff: 1 ng/mL 08/22/2025 11:05 AM EDT [facility] Oxycodone Screen Urine Negative Cutoff: 100 ng/mL 08/22/2025 11:05 AM EDT [facility] Urine Urine specimen obtained by clean catch procedure / Unknown Non-blood Collection / Unknown 08/22/2025 10:29 AM EDT 08/22/2025 10:40 AM EDT Ayesah Wolff MD LAB URINE ORDERABLES Millie l Result Performing Organization Address City/[facility]/ZIP Co de Phone Number [facility] [address] [place] [address] * (ABNORMAL) Anti Xa Level Low Molecular Weight (08/22/2025 5:47 AM EDT) Anti Xa Level Low Molecular Weight Heparin >2.00(HH) <2.00 IU/mL 08/22/2025 6:12 AM EDT [facility] Blood Venous blood specimen / Unknown Venipuncture / Unknown 08/22/2025 5:47 AM EDT 08/22/2025 5:59 AM EDT Narrative [facility] - 08/22/2025 6:12 AM EDT Therapeutic Range: LMWH enoxaparin 1mg/kg/dose, 12hrs - peak (3-5 hours after dose): 0.5 - 1.0 IU/mL LMWH enoxaparin 1.5mg/kg/dose, 24hrs - peak (3-5 hours after dose): 1.0 - 2.0 IU/mL LMWH enoxaparin prophylaxis: Not established us Sandro Terrazas MD LAB BLOOD ORDERABLES Final Re sult [facility] [address] [place] [address] * CT Head wo IV Contrast (08/22/2025 5:15 AM EDT) Anatomical Region Laterality Modality Head Computed Tomogra phy Impressions 08/22/2025 5:52 AM EDT No acute intracranial abnormality. CRITICAL RESULT: No. COMMUNICATION: Per this written report. Drafted by Dwayne Wright MD on 08/22/2025 5:47 AM Final report signed by Dwayne Wright MD on 08/22/2025 5:52 AM Narrative 08/22/2025 5:52 AM EDT CLINICAL INDICATION: poly trauma TECHNIQUE: Routine contiguous axial CT images of the head were obtained without contrast administration. Total DLP (Dose-Length Product): 643.54 mGy.cm. Please note: The reported value represents the total of one or more individual components during the CT acquisition on this date and at this time, and as such, the same value may appear in more than one CT report depending on the interpreting/reporting physicians. COMPARISON: None. FINDINGS: Brain atrophy chronic microvascular infarcts and an old insult superior in the right cerebellum. Small old cortical insult lateral posterior lateral right frontal lobe. Small probably vascular calcifications at the basal ganglia. Normal parenchymal calcification posterior in the right cerebral hemisphere. No acute intracranial abnormality. No evidence of acute hemorrhage or ischemia. No mass, mass effect, or midline displacement of structures. Normal ventricular size and configuration. Patent basal cisterns. No displaced or depressed calvarial fractures. The visualized paranasal sinuses and mastoid air cells are clear. Procedure Note Dwayne Wright MD - 08/22/2025 CLINICAL INDICATION: poly trauma TECHNIQUE: Routine contiguous axial CT images of the head were obtained withoutcontrast administration. Total DLP (Dose-Length Product): 643.54 mGy.cm. Please note: The reportedvalue represents the total of one or more individual components during theCT acquisition on this date and at this time, and as such, the same valuemay appear in more than one CT report depending on theinterpreting/reporting physicians. COMPARISON: None. FINDINGS: Brain atrophy chronic microvascular infarcts and an old insultsuperior in the right cerebellum. Small old cortical insult lateralposterior lateral right frontal lobe. Small probably vascularcalcifications at the basal ganglia. Normal parenchymal calcificationposterior in the right cerebral hemisphere. No acute intracranial abnormality. No evidence of acute hemorrhage orischemia. No mass, mass effect, or midline displacement of structures.Normal ventricular size and configuration. Patent basal cisterns. No displaced or depressed calvarial fractures. The visualized paranasalsinuses and mastoid air cells are clear. IMPRESSION: No acute intracranial abnormality. CRITICAL RESULT: No. COMMUNICATION: Per this written report. Drafted by Dwayne Wright MD on 08/22/2025 5:47 AM Final report signed by Dwayne Wright MD on 08/22/2025 5:52 AM us Ayesha Wolff MD IMG CT PROCEDURES Final R esult * XR Chest 1 View (08/22/2025 5:08 AM EDT) Anatomical Region Laterality Modality Chest Digital Radiogra phy Impressions 08/22/2025 5:20 AM EDT Redemonstration of ill-defined opacity in the right medial lung base. CRITICAL RESULT: No. COMMUNICATION: Per this written report. By electronically signing this report, I, the attending physician, attest that I have personally reviewed the images/data for the above examination(s) and agree with the final edited report. Drafted by Candi Rm MD on 08/22/2025 5:11 AM Final report signed by Dwayne Wright MD on 08/22/2025 5:20 AM Narrative 08/22/2025 5:20 AM EDT CLINICAL INDICATION: Trauma Alert Red TECHNIQUE: XR CHEST 1 VIEW COMPARISON: Chest radiograph, 07/09/2012. FINDINGS: Similarly positioned right-sided chest port with the tip projecting over the right atrium. Redemonstration of ill-defined opacity in the right medial lung base. Cardiomediastinal contours are stable. No pleural effusion or pneumothorax. No radiographic evidence of acute displaced fracture. Procedure Note Dwayne Wright MD - 08/22/2025 CLINICAL INDICATION: Trauma Alert Red TECHNIQUE: XR CHEST 1 VIEW COMPARISON: Chest radiograph, 07/09/2012. FINDINGS: Similarly positioned right-sided chest port with the tip projecting overthe right atrium. Redemonstration of ill-defined opacity in the rightmedial lung base. Cardiomediastinal contours are stable. No pleuraleffusion or pneumothorax. No radiographic evidence of acute displacedfracture. IMPRESSION: Redemonstration of ill-defined opacity in the right medial lung base. CRITICAL RESULT: No. COMMUNICATION: Per this written report. By electronically signing this report, I, the attending physician, attestthat I have personally reviewed the images/data for the aboveexamination(s) and agree with the final edited report. Drafted by Candi Rm MD on 08/22/2025 5:11 AM Final report signed by Dwayne Wright MD on 08/22/2025 5:20 AM Ayesha Wolff MD IMG XR PROCEDURES Final R esult * Type and Screen (08/22/2025 5:02 AM EDT) ABO/Rh O Positive 08/22/2025 5:07 AM EDT BLOOD BANK Antibody Screen Negative 08/22/2025 5:07 AM EDT BLOOD BANK Specimen Expiration 08/25/2025 23:59 08/22/2025 5:07 AM EDT BLOOD BANK Blood Venous blood specimen / Unknown Venipuncture / Unknown 08/22/2025 5:02 AM EDT 08/22/2025 5:07 AM EDT Ayesha Wolff MD LAB BLOOD BANK TEST ORDER STACEY Final Result Performing Organization Address [facility] Co de Phone Number BLOOD BANK [address] [place] [address], * TEG Global Hemostasis with Lysis (08/22/2025 5:02 AM EDT) R, Lysis 8.6 4.6 - 9.1 min 08/22/2025 6:19 AM EDT [facility] MA, Rapid, Lysis 61.1 52.0 - 70.0 mm 08/22/2025 6:19 AM EDT [facility] MA, Fibrinogen, Lysis 29.8 15.0 - 32.0 mm 08/22/2025 6:19 AM EDT [facility] LY30 0.8 0.0 - 2.6 % 08/22/2025 6:19 AM EDT [facility] Blood Venous blood specimen / Unknown Venipuncture / Unknown 08/22/2025 5:02 AM EDT 08/22/2025 5:18 AM EDT Ayesha Wolff MD LAB BLOOD ORDERABLES Millie l Result [facility] [address] [place] [address] * Test Qualitative Plasma (08/22/2025 5:02 AM EDT) Test Negative Negative 08/22/2025 5:46 AM EDT [facility] Blood Venous blood specimen / Unknown Venipuncture / Unknown 08/22/2025 5:02 AM EDT 08/22/2025 5:15 AM EDT Narrative [facility] - 08/22/2025 5:46 AM EDT Reference Range: Males and non- females: Negative. Ayesha Wolff MD LAB BLOOD ORDERABLES Millie l Result [facility] [address] [place] [address] * Ethyl Alcohol Plasma (08/22/2025 5:02 AM EDT) Ethanol Plasma <10 <10 mg/dL 08/22/2025 5:43 AM EDT [facility] Blood Venous blood specimen / Unknown Venipuncture / Unknown 08/22/2025 5:02 AM EDT 08/22/2025 5:15 AM EDT Narrative [facility] - 08/22/2025 5:43 AM EDT Enzymatic Assay: Performed on Vaishnavi Jose. Ayesha Wolff MD LAB BLOOD ORDERABLES Millie l Result Performing Organization Address City/[facility]/ZIP Co de Phone Number [facility] [address] [place] [address] * APTT (PTT) (08/22/2025 5:02 AM EDT) aPTT 31 25 - 35 sec 08/22/2025 5:20 AM EDT [facility] Blood Venous blood specimen / Unknown Venipuncture / Unknown 08/22/2025 5:02 AM EDT 08/22/2025 5:05 AM EDT Ayesha Wolff MD LAB BLOOD ORDERABLES Millie l Result [facility] [address] [place] [address] * (ABNORMAL) PT-INR (08/22/2025 5:02 AM EDT) Prothrombin Time 19.2(H) 12.0 - 14.3 sec 08/22/2025 5:19 AM EDT [facility] INR 1.6(H) 0.9 - 1.1 08/22/2025 5:19 AM EDT [facility] Blood Venous blood specimen / Unknown Venipuncture / Unknown 08/22/2025 5:02 AM EDT 08/22/2025 5:05 AM EDT Narrative [facility] - 08/22/2025 5:19 AM EDT OPTIMAL INR RANGES FOR PATIENT ON ORAL ANTICOAGULANT THERAPY Prevention of venous thromboembolism INR 2.0 to 3.0 In patients with heart disease: Atrial fibrillation INR 2.0 to 3.0 Valvular heart disease INR 2.0 to 3.0 Tissue heart valves INR 2.0 to 3.0 Mechanical prosthetic valves INR 2.5 to 3.5 Prevention of recurrent MD INR 2.5 to 3.5 us Ayesha Wolff MD LAB BLOOD ORDERABLES Millie cristina Result [facility] [address] [place] [address] * (ABNORMAL) CBC w/o diff (08/22/2025 5:02 AM EDT) WBC Count 2.43(L) 3.70 - 10.30 10*3/uL LAB HEMATOLOGY METHOD 08/22/2025 6:47 AM EDT [facility] RBC Count 2.09(L) 3.90 - 5.20 10*6/uL LAB HEMATOLOGY METHOD 08/22/2025 6:47 AM EDT [facility] HGB 7.6(L) 11.2 - 15.7 g/dL LAB HEMATOLOGY METHOD 08/22/2025 6:47 AM EDT [facility] HCT 23.3(L) 34.0 - 45.0 % LAB HEMATOLOGY METHOD 08/22/2025 6:47 AM EDT [facility] Platelet Count 57(L) 155 - 369 10*3/uL LAB HEMATOLOGY METHOD 08/22/2025 6:47 AM EDT [facility] MCV 112(H) 79 - 98 fL LAB HEMATOLOGY METHOD 08/22/2025 6:47 AM EDT [facility] MCH 36.4(H) 26.0 - 32.0 pg LAB HEMATOLOGY METHOD 08/22/2025 6:47 AM EDT [facility] MCHC 32.6 30.7 - 35.5 g/dL LAB HEMATOLOGY METHOD 08/22/2025 6:47 AM EDT [facility] RDW 17.6(H) 11.5 - 14.5 % LAB HEMATOLOGY METHOD 08/22/2025 6:47 AM EDT [facility] MPV 10.2 8.8 - 12.5 fL LAB HEMATOLOGY METHOD 08/22/2025 6:47 AM EDT [facility] nRBC 0.0 <=0.0 per 100 WBCs LAB HEMATOLOGY METHOD 08/22/2025 6:47 AM EDT [facility] Blood Venous blood specimen / Unknown Venipuncture / Unknown 08/22/2025 5:02 AM EDT 08/22/2025 5:05 AM EDT Ayesha Wolff MD LAB BLOOD ORDERABLES Millie cristina Result [facility] [address] [place] [address] * (ABNORMAL) CMP (08/22/2025 5:02 AM EDT) Glucose, Plasma 89 74 - 99 mg/dL 08/22/2025 5:46 AM EDT [facility] BUN, Plasma 24(H) 8 - 23 mg/dL 08/22/2025 5:46 AM EDT [facility] Creatinine, Plasma 1.39(H) 0.60 - 1.10 mg/dL 08/22/2025 5:46 AM EDT [facility] BUN/Creatinine Ratio 17 08/22/2025 5:46 AM EDT [facility] Sodium, Plasma 139 136 - 145 mmol/L 08/22/2025 5:46 AM EDT [facility] Potassium, Plasma 4.3 3.6 - 4.9 mmol/L 08/22/2025 5:46 AM EDT [facility] Chloride, Plasma 104 97 - 107 mmol/L 08/22/2025 5:46 AM EDT [facility] CO2, Plasma 26 22 - 29 mmol/L 08/22/2025 5:46 AM EDT [facility] Anion Gap 9 6 - 16 mmol/L 08/22/2025 5:46 AM EDT [facility] Total Calcium, Plasma 8.4(L) 8.9 - 10.2 mg/dL 08/22/2025 5:46 AM EDT [facility] Total Protein 6.0(L) 6.3 - 7.9 g/dL 08/22/2025 5:46 AM EDT [facility] Albumin, Plasma 2.6(L) 3.5 - 5.2 g/dL 08/22/2025 5:46 AM EDT [facility] AST, Plasma 19 10 - 35 U/L 08/22/2025 5:46 AM EDT [facility] ALT, Plasma 9(L) 10 - 35 U/L 08/22/2025 5:46 AM EDT [facility] Alkaline Phosphatase, Plasma 73 46 - 142 U/L 08/22/2025 5:46 AM EDT [facility] Total Bilirubin, Plasma 0.4 0.2 - 1.1 mg/dL 08/22/2025 5:46 AM EDT [facility] eGFRcr 41.9 mL/min/1.7 3m*2 08/22/2025 5:46 AM EDT [facility] Comment:Reported eGFRcr in m L/min/1.73m2 is based the CKD-EPI 2020 equation that does not use a race coefficient. Blood Venous blood specimen / Unknown Venipuncture / Unknown 08/22/2025 5:02 AM EDT 08/22/2025 5:15 AM EDT us Ayesha Wolff MD LAB BLOOD ORDERABLES Millie l Result [facility] [address] [place] [address] * (ABNORMAL) Trauma shock panel blood gas (08/22/2025 5:02 AM EDT) pH, Venous 7.39 7.32 - 7.43 LAB HEMATOLOGY METHOD 08/22/2025 5:07 AM EDT [facility] Bicarbonate, Calculated, Venous 30(H) 22 - 26 mmol/L LAB HEMATOLOGY METHOD 08/22/2025 5:07 AM EDT [facility] Base Excess, Venous 4.5(H) -2.0 - 3.0 mmol/L LAB HEMATOLOGY METHOD 08/22/2025 5:07 AM EDT [facility] Lactate, Venous, Whole Blood 1.6 0.5 - 2.2 mmol/L LAB HEMATOLOGY METHOD 08/22/2025 5:07 AM EDT [facility] Blood Venous blood specimen / Unknown Venipuncture / Unknown 08/22/2025 5:02 AM EDT 08/22/2025 5:06 AM EDT Ayesha Wolff MD LAB BLOOD ORDERABLES Millie cristina Result [facility] [address] [place] [address] documented in this encounter Visit Diagnoses Diagnosis Laceration of ear lobe, unspecified laterality, subsequent encounter- Primary Fall Unspecified fall Laceration of left earlobe documented in this encounter Administered Medications Inactive Administered Medications - up to 3 most recent administrations Medication Order MAR Action Action Date Dose Rate Site fosfomycin (Monurol) packet 3 g 3 g, Oral, Once, 1 dose, On Wed08/22/25 at 1230, Routine Given 08/22/2025 12:45 PM EDT 3 g lidocaine-EPINEPHrine (Xylocaine W/EPI) 1 %-1:686089 injection 20 mL 20 mL, Infiltration, Once, 1 dose, On Wed08/22/25 at 0715, Routine Given by Other 08/22/2025 7:48 AM EDT 20 mL documented in this encounter Active and Recently Administered Medications Times are shown in EDT. Scheduled Medication Order 08/20/2025 08/21/2025 08/22/2025 bacitracin (425g jar) ointment 1 Jar 1 Jar, Topical, Once, 1 dose, On Wed08/22/25 at 1305, Routine 1305 (Canceled Entry - Provider: Automatic Discharge Provider - Comment: Automatically canceled at discontinue of medication order) fosfomycin (Monurol) packet 3 g (COMPLETED) 3 g, Oral, Once, 1 dose, On Wed08/22/25 at 1230, Routine 1245 (Given - Provid er: Meghan Gudino RN) lidocaine-EPINEPHrine (Xylocaine W/EPI) 1 %-1:[id number] injection 20 mL (COMPLETED) 20 mL, Infiltration, Once, 1 dose, On Wed08/22/25 at 0715, Routine 0748 (Given by Other - Provider: Meghan Gudino RN - Comment: Given by MD) documented in this encounter Additional Health Concerns Assessment Noted Time A fall risk assessment has been complete d for the patient 07/26/2025 3:13 PM EDT A Body Mass Index follow-up plan has been documented for the patient 07/26/2025 3:46 PM EDT documented as of this encounter Care Teams Senior Net C Developer Relationship Specialty Start Date End Date Lizandro Khan APRN [address] [place] [address] PCP - General 08/22/25 documented as of this encounter
--- OUTSIDE RECORDS SUMMARY | 2025-08-26 12:03 | XMS_ITS | Encounter Summary ---
Author Organization [facility] Address [address] [place] [address] Care Team Providers Care Contract Officer Name Role Phone Rachel Pagan MD Unavailable [phone] Pati Rucker PULP BLEACHER Unavailable Sosa Gardner PULP BLEACHER Unavailable [phone] Linda Elizabeth DO Unavailable Angie Murray RN Unavailable Unavailab Lizandro Islas NP Primary Care Provider [phone] Reason for Visit * Reason Comments Wound Check Encounter Details Date Type Department Care Team (Late st Contact Info) Description 08/26/2025 1:03 PM EDT - 08/26/2025 2:10 PM EDT Emergency [facility] [address] [place] [address] George Wolff MD [address] [place] [address] Nail abnormalities (Primary Dx) Discharge Disposition: Home or Self [...] any clubs o r organizations such as advent groups, unions, fraternal or athletic groups, or [...] in a fci (including now)? No 11/11/2022 [facility] - Personal Safety Answer Date Recor ded [...] things needed for daily living? No 06/23/2025 [facility] Utilities Answer Date Recorded In the past [...] Sign Reading Time Taken Comments Blood Pressure 91/53 08/26/2025 1:30 PM EDT Pulse 82 08/26/2025 1:30 PM EDT Temperature 37.2 C (98.9 F) 08/26/2025 1:13 PM EDT Respiratory Rate 20 08/26/2025 1:30 PM EDT Oxygen Saturation 100% 08/26/2025 1:30 PM EDT Inhaled Oxygen Concentration - - Weight 59 kg (130 lb) 08/26/2025 1:13 PM EDT Height 147.3 cm (4' 10 ) 08/26/2025 1:13 PM EDT Body Mass Index 27.17 08/26/2025 1:13 PM EDT documented in this encounter Functional [...] hours. 450 mL 1 5 11/04/20 25 doxycycline (Adoxa) 100 MG tablet Take 1 tablet (100 mg) by mouth in the morning and at bedtime for 10 days. Take with a full glass of water and do not lie down for at least 30 minutes after 20 tablet 5 09/12/20 25 potassium chloride CR (Klor-Con M20) 20 MEQ ER tablet Take 1 tablet (20 mEq) by mouth in the morning and at bedtime. 60 tablet 5 08/27/20 25 documented as of this encounter ED Notes * ZI Silverio - 08/26/2025 1:25 PM EDT Images from the original note were not included. HPI Chief Complaint Patient presents with Wound Check Patient is a 64-year-old female presenting to the emergency department with her daughter for a wound on her right big toe. The daughter states that patient was seen by podiatry approximately 2 weeks ago and had the nail removed right big toe. The daughter states that she has been following instructions from podiatry, but noticed, today, that a red ring had developed around the nail. The patient denies pain, unless the toe is squeezed. The daughter denies fever, chills, noticing drainage, or anyother associated symptoms. The daughter states the patient is allergic to keflex and ciprofloxacin. 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 Lung cancer with mets to the brain Myocardial infarction Phlebitis and thrombophlebitis of unspecified site Pneumonia 05/15/2025 Pulmonary embolism 2024 PVD (peripheral vascular disease) (HCC) RLS (restless legs syndrome) Ruptured abdominal aortic aneurysm Sepsis due to pneumonia 05/15/2025 Stroke Past Surgical History: Procedure Laterality Date BRAIN TUMOR EXCISION 11/[address] CHEST ANGIOGRAM W AND/OR WO IV CONTRAST 01/10/2025 CT CHEST ANGIOGRAM W AND/OR WO IV CONTRAST 01/10/[address] [facility] [address] CT CHEST ANGIOGRAM W AND/OR WO IV CONTRAST 03/19/2025 CT CHEST ANGIOGRAM W AND/OR WO IV CONTRAST 03/19/[address] [facility] [address] CT CHEST ANGIOGRAM W AND/OR WO IV CONTRAST 05/15/2025 CT CHEST ANGIOGRAM W AND/OR WO IV CONTRAST 05/15/[address] [facility] [address] CT HEAD ANGIO 04/24/2024 CT HEAD ANGIO 04/24/20[address] [facility] [address] CT HEAD ANGIO 02/28/2025 CT HEAD ANGIO 02/28/20[address] [facility] [address] CT HEAD ANGIO 06/13/2025 CT HEAD ANGIO 06/13/[address] [facility] [address] NECK ANGIO 04/24/2024 CT NECK ANGIO 04/24/[address] [facility] [address] CT NECK ANGIO 02/28/2025 CT NECK ANGIO 02/28/[address] [facility] [address] NECK ANGIO 06/13/2025 CT NECK ANGIO 06/13/20[address] [facility] [address] IR INTERVENTION FILTER PLACEMENT 03/31/2025 IR INTERVENTION FILTER PLACEMENT 03/31/2025 [facility] IR MEDIPORT INSERTION, SINGLE 11/24/2022 Family History Problem Relation Name Age of Onset Diabetes Mother Mello Coronary artery disease Mother Mello Hypertension Mother Mello Heart attack Mother Mello Diabetes Father Harrison Heart attack Father Harrison Hypertension Father Harrison Coronary artery disease Father Harrison Lung cancer Sister Alma Heart attack Sister Denia Heart attack Brother Harrison Valentin No Known Problems Daughter No Known Problems Son No Known Problems Mother's Sister No Known Problems Mother's Brother No Known Problems Father's Sister No Known Problems Father's Brother No Known Problems Maternal Grandmother No Known Problems Maternal Grandfather No Known Problems Paternal Grandmother No Known Problems Paternal Grandfather No Known Problems Other Social History Tobacco Use Smoking status: Every [...] Topics Alcohol use: Never Drug use: Never Review of Systems Review of Systems Constitutional: Negative for appetite change, chills, diaphoresis, fatigue and fever. HENT: Negative for congestion, ear pain, postnasal drip, rhinorrhea, sinus pressure, sneezing, sorethroat, trouble swallowing and voice change. Eyes: Negative for pain, redness and visual disturbance. Respiratory: Negative for cough, chest tightness, shortness of breath and wheezing. Cardiovascular: Negative for chest pain, palpitations and leg swelling. Gastrointestinal: Negative for abdominal pain, blood in stool, constipation, diarrhea, nausea and vomiting. Genitourinary: Negative for dysuria, flank pain, frequency, hematuria and urgency. Musculoskeletal: Negative for arthralgias and back pain. Skin: Positive for wound. Negative for pallor and rash. Allergic/Immunologic: Negative for food allergies and immunocompromised state. Neurological: Negative for dizziness, syncope, weakness, numbness and headaches. Hematological: Does not bruise/bleed easily. Physical Exam Physical Exam Vitals and nursing note reviewed. Constitutional: General: She is not in acute distress. Appearance: Normal appearance. She is not ill-appearing or toxic-appearing. HENT: Head: Normocephalic and atraumatic. Eyes: Extraocular Movements: Extraocular movements intact. Conjunctiva/sclera: Conjunctivae normal. Pupils: Pupils are equal, round, and reactive to light. Cardiovascular: Rate and Rhythm: Normal rate and regular rhythm. Pulses: Normal pulses. Heart sounds: Normal heart sounds. Pulmonary: Effort: Pulmonary effort is normal. Breath sounds: Normal breath sounds. Musculoskeletal: General: Tenderness present. No swelling, deformity or signs of injury. Right lower leg: No edema. Left lower leg: No edema. Feet: Skin: General: Skin is warm. Coloration: Skin is not pale. Findings: Erythema present. No bruising, lesion or rash. Neurological: General: No focal deficit present. Mental Status: She is alert and oriented to person, place, and time. Mental status is at baseline. Psychiatric: Mood and Affect: Mood normal. Behavior: Behavior normal. Thought Content: Thought content normal. Judgment: Judgment normal. ED Triage Vitals [08/26/25 1313] Temp Heart Rate Resp BP 98.9 ??F (37.2 ??C) 84 16 105/51 SpO2 Temp Source Heart Rate Source Patient Position 100 % Oral -- Lying BP Location FiO2 (%) Left arm -- Labs Reviewed - No data to display Radiology Reviewed - No data to display Medical Decision Making (MDM) & ED Course Medical Decision Making Patient presents for a wound on the right big toe. Afebrile in the emergency department. Erythema noted around the nail of the right great toe, however no overt signs of circumferential erythema or drainage. Doxycycline given for home for prophylactic coverage. Advised patient to follow-up with podiatry. The patient was evaluated and treated in the ED, at this time, their condition is stable fordischarge. Reviewed return precaution and advised the patient to return to the ED with any new or worsening symptoms. Discharge and follow-up instructions were reviewed, and the patient verbalized understanding. All questions sought and answered. Patient is agreeable to plan. Diagnoses as of 08/26/25 1347 Nail abnormalities No orders to display Labs: Labs Reviewed - No data to display Radiology: @RISRSLT@ Imaging: No orders to display No orders to display NURSING NOTES AND VITALS REVIEWED The nursing notes within the ED encounter and vital signs as below have been reviewed. BP 91/53 (BP Location: Left arm, Patient Position: Sitting) Pulse 82 Temp 98.9 ??F (37.2 ??C) (Oral) Resp 20 Ht 4' 10 (1.473 m) Wt 130 lb (59 kg) SpO2 100% BMI 27.17 kg/m?? PROGRESS NOTES The plan has been discussed with the patient regarding the diagnosis and prognosis. All questions have been answered at this time and they are agreeable with the plan of care. Instructions were givento return immediately for any new or worrisome concerns. Medications - No data to display Discharge Medication List as of 08/26/2025 2:01 PM START taking these medications Details doxycycline (Adoxa) 100 MG tablet Take 1 tablet (100 mg) by mouth in the morning and at bedtime for10 days. Take with a full glass of water and do not lie down for at least 30 minutes after, Starting 08/26/2025, Until 09/05/2025, Normal Diagnosis: 1. Nail abnormalities Disposition: Time Spent in Critical Care of the patient: 0 Patient's disposition: Discharge to home Patient's condition is stable. ZI Silverio 08/27/25 [id number] Cosigned by George Wolff MD at 08/28/2025 7:10 PM EDT Associated attestation - George Wolff MD - 08/28/2025 7:10 PM EDT I have reviewed the chart and agree with the documentation as recorded by the P, including the assessment, treatment plan, and disposition. George Wolff MD * Parisa Melo RN - 08/26/2025 1:11 PM EDT Pt presents to ED due to wound on R big toe. Nail bed appears black with redness around nail. Reports having an appointment with podiatry. documented in this encounter Plan of Treatment Upcoming Encounters Date Type Department Care Team (Late st Contact Info) Description 10/04/2025 8:45 AM EST Office Visit [facility] [address] [place] [phone] Rachel Pagan MD [address] [place] [address] 10/10/2025 10:30 AM EST Appointment [facility] [address] [place] [phone] 11/02/2025 9:30 AM EST Office Visit [facility] [address] [place] [phone] Ky Jewell MD [address] [place] [address] 11/05/2025 2:45 PM EST Office Visit [facility]UR[facility] [address] [place] [phone] Ruddy Mayes MD [address] [place], [place] [phone] 12/31/2025 11:30 AM EST Office Visit [facility]Y [facility] [address] [place] [phone] 01/22/2026 9:00 AM EDT Office Visit [facility] [address] [place] [address] Allyn Toribio NP [address] [place] [phone] documented as of this encounter Goals Goal Patient Goal Type Associated Problems Recent Progress Patient-Stated? Author Patient's support system will participate in treatment General Tricia TuttleEmily jones Alyssa documented as of this encounter Visit Diagnoses Diagnosis Nail abnormalities- Primary Other specified disease of nail documented in this encounter Additional Health Concerns Assessment Noted Time PHQ-9 Depression Total Score: 0 06/23/20 10:00 AM EDT documented as of this encounter Care Teams Contract Officer Relationship Specialty Start Date End Date Lizandro Khan NP [address] [place] [address] PCP - General Family Medicine 07/23/25 Rachel Pagan MD [address] [place] [phone] Consulting Physician Oncology 11/11/22 Pati Rucker APRN [address] [place], [place] [phone] Nurse Practitioner Oncology 12/21/22 Sosa Gardner APRN [address] [place] [phone] Nurse Practitioner Oncology 06/24/23 Linda Elizabeth DO [address] [place] [phone] Consulting Physician Oncology 03/01/25 08/28/25 Angie Murray RN [address] [place] [address] Nurse Navigator Oncology 06/26/25 documented as of this encounter
--- OUTSIDE RECORDS SUMMARY | 2025-08-27 07:45 | XMS_ITS | Encounter Summary ---
Author Organization [facility] Address [address] [place] [address] Care Team Providers Care Cobol Application Developer Name Role Phone Rachel Chow MD Unavailable [phone] Pati Rucker TECHNICAL SALES SUPPORT MANAGER Unavailable [phone] Sosa Gardner TECHNICAL SALES SUPPORT MANAGER Unavailable [phone] Linda Elizabeth DO Unavailable Angie Murray RN Unavailable Unavailab Lizandro Islas NP Primary Care Provider [phone] Reason for Visit * Reason Comments Non-small cell cancer of right lung Follow-up * Auth/Cert (Routine) Specialty Diagnoses / Procedures Referred By Contac t Referred To Contact Diagnoses Malignant neoplasm of unspecified part of unspecified bronchus or lung Procedures LA PEMETREXED INJECTION [facility] [address] [place] [address] Phone: tel: [facility] [address] [place] [address] Phone: tel: fax: Referral ID Status Reason Start Date Expiration Date Visits Re quested Visits Authorized [id number] 1 1 Encounter Details Date Type Department Care Team (Late st Contact Info) Description 08/27/2025 8:45 AM EDT Office Visit [facility] [address] 10[address] [place] [address] Rachel Chow MD [address] [place] [address] Non-small cell lung cancer, unspecified laterality [...] How often do you attend chur or buddhism services? More than 4 times [...] in a fdc (including now)? No 11/11/2022 [facility] - Personal Safety Answer Date Recor ded How often does anyone, airam danielle family and friends, physically hurt you? Never 06/19/2025 How often does anyone, airam danielle family and friends, insult or talk down to you? Never 06/19/2025 How often does anyone, airma danielle family and friends, threaten you with [...] things needed for daily living? No 06/23/2025 [facility] Utilities Answer Date Recorded In the past 12 months has e [employer], gas, oil, or water company threatened to [...] Sign Reading Time Taken Comments Blood Pressure 90/48 08/27/2025 9:01 AM EDT manual Pulse 80 08/27/2025 9:01 AM EDT Temperature - - Respiratory Rate 20 08/27/2025 9:01 AM EDT Oxygen Saturation 97% 08/27/2025 9:0 1 AM EDT 3 liters nasal canula Inhaled Oxygen Concentration - - Weight 58.1 kg (128 lb) 08/27/2025 9:01 AM EDT Height - - Body Mass Index 26.75 08/26/2025 1:13 PM EDT documented in this [...] documented in this encounter Progress Notes * Sun Juárez - 08/27/2025 9:10 AM EDTAssociated Problem(s): Non-small cell lung cancer [...] in size. Patient does not have any REGIONAL ECONOMIST symptoms. She was seen by radiation oncology. [...] few months, last being 2 weeks ago. Office visit 08/27/2025: CT chest/abdomen/pelvis 07/2025 with no concrete evidence of disease with stable mediastinal lymphadenopathy and a cavitating right lung lesion (? Tumor necrosis and/or superimposed infection) CT head 08/2025 with no concrete evidence of PD. Status post fall with CT head showing no concrete evidence of acute events. Also found to have a UTI for which she was treated with infection with antibiotic. Today, doing fair today Plan: - At this point no concrete evidence of PD while on immunotherapy -Will give Levaquin for possible lung infection -Will continue with Keytruda with short interval reimaging -PET scan October 2025 -Given her falls, and limited the quality brain imaging she recently had, will do a short interval brain MRI. This currently scheduled scheduled late 08/2025. Will be appreciated if this can also reviewed by our neurosurgery colleagues for accurate assessment given patient history of brain mets requiring surgery/radiation and more recently strokes -Will continue to coordinate with neurosurgery and [facility] regarding brain imaging/disease. -She will continue to follow-up with neurology for her stroke - Labs before each treatment -RTC 09/19/2025. * Rachel Soriano MD - 08/27/2025 8:45 AM EDT Patient ID: Jose Sims is a 64 y.o. female. Referring Physician: Lizandro Khan NP [address] [place] [address] Primary Care Provider: Lizandro Khan NP Subjective [...] Positive for fatigue. Weakness Respiratory: Positive for cough, shortness of breath and wheezing. Musculoskeletal: Positive for gait problem. Neurological: Positive for dizziness, gait problem and light-headedness. All other systems reviewed and are negative. [...] In the past 12 months has the [employer], [employer], oil, or water [employer] threatened to shut off services in your [...] curse at you? 1 1 1 1 Safety Score 4 [...] Do you speak a language other than Kenyan at home? N N N N Do [...] order Objective BSA: 1.51 meters squared BP (!) 90/48 (BP Location: Right arm, Patient Position: Sitting) Comment: manual Pulse 80 Resp 20 Wt 128 lb (58.1 kg) SpO2 97% Comment: 3 liters nasal canula BMI 26.75 kg/m?? Physical Exam Vitals and [...] 0 Lab Results Component Value Date WBC 2.0 (L) 08/27/2025 ADJUSTEDWBC 10.60 12/20/2024 HGB 8.5 (L) 08/27/2025 HCT 25.6 (L) 08/27/2025 PLT 59 (L) 08/27/2025 LDH 241 03/31/2025 CREATININE 1.25 (H) 08/27/2025 AST 17 08/27/2025 Assessment/Plan Cancer Staging Non-small cell lung cancer Staging form: Lung, AJCC 8th Edition - Clinical: Stage IV (cTX, cNX, cM1) - Signed by Rachel Soriano MD on 05/20/2023 Stage IV squamous cell carcinoma of lung Staging form: Lung, AJCC 8th Edition - Clinical: Stage IV (cTX, cNX, cM1) - Signed by Rachel Soriano MD on 06/05/2025 1. Non-small cell lung cancer, unspecified laterality Assessment & Plan: 64 y/o smoker female [...] in size. Patient does not have any REGIONAL ECONOMIST symptoms. She was seen by radiation oncology. [...] few months, last being 2 weeks ago. Office visit 08/27/2025: CT chest/abdomen/pelvis 07/2025 with no concrete evidence of disease with stable mediastinal lymphadenopathy and a cavitating right lung lesion (? Tumor necrosis and/or superimposed infection) CT head 08/2025 with no concrete evidence of PD. Status post fall with CT head showing no concrete evidence of acute events. Also found to have a UTI for which she was treated with infection with antibiotic. Today, doing fair today Plan: - At this point no concrete evidence of PD while on immunotherapy -Will give Levaquin for possible lung infection -Will continue with Keytruda with short interval reimaging -PET scan October 2025 -Given her falls, and limited the quality brain imaging she recently had, will do a short interval brain MRI. This currently scheduled scheduled late 08/2025. Will be appreciated if this can also reviewed by our neurosurgery colleagues for accurate assessment given patient history of brain mets requiring surgery/radiation and more recently strokes -Will continue to coordinate with neurosurgery and [facility] regarding brain imaging/disease. -She will continue to follow-up with neurology for her stroke - Labs before each treatment -RTC 09/19/2025. Orders: - CBC auto differential - Comprehensive metabolic panel - Infusion Appointment Request; Future - CBC auto differential; Future - Comprehensive metabolic panel; Future - TSH; Future - T4, free; Future Other orders - cyanocobalamin (Vitamin B-12) injection 1,000 mcg - pembrolizumab (Keytruda) 200 mg in sodium chloride 0.9 % 100 mL chemo IVPB - diphenhydrAMINE (BENADryl) injection 50 mg - methylPREDNISolone sodium succinate (PF) (SOLU-Medrol) injection 125 mg - albuterol (2.5 MG/3ML) 0.083% nebulizer solution 2.5 mg - EPINEPHrine (Epipen) injection syringe 0.3 mg - famotidine (PF) (Pepcid) injection 20 mg - meperidine (Demerol) injection 25 mg - sodium chloride 0.9 % infusion Treatment Details Treatment goal [No plan goal] [...] Date 05/25/2023 End Date Until discontinued Provider Rachle Soriano MD Chemotherapy [No matching medication found [...] mg, 125 mg, Intravenous, Once as needed, 7 of 14 cycles palonosetron (Aloxi) injection 250 [...] mL chemo IVPB, 200 mg, Intravenous, Once, 6 of 13 cycles Administration: 200 mg (06/05/2025), 200 mg (04/10/2025), 200 mg (05/08/2025), 200 mg (06/26/2025), 200mg (07/18/2025), 200 mg (08/08/2025) The medication list for this visit has been reviewed and reconciled. Reviewed by Miya Martinez (Registered Nurse) on 08/27/25 at 0902 and confirmed by Rachel Soriano MD documented in this encounter Miscellaneous Notes * Patient Education - Miya Martinez - 08/27/2025 9:03 AM EDT Images from the original note were not included. Patient Education Table of Contents Shortness of Breath in Adults: What It Means To view videos and all your education online visit, [email or web address] or scan this QR code with your smartphone. Access to this content will in one year. Shortness of Breath in Adults: What It Means Shortness of breath means you have trouble breathing. It may feel like you're not getting enough air. Shortness of breath could be a sign of a more severe medical problem, such as: Allergies. Asthma. Heart issues. Follow these instructions at home: Pollutants Do not smoke, vape, or use nicotine or tobacco. Avoid things that can make it harder to breathe, such as: ? Smoke of all kinds. This includes smoke from campfires or forest fires. Do not smoke or allow others to smoke in your home. ? Mold. ? Dust. ? Air pollution. ? Chemical smells. ? Allergens. These are things that can give you an allergic reaction if you have allergies. Some common allergens include: ? Pollen from grasses or trees. ? Animal dander. Medicines Take medicines only as told. This includes oxygen therapy and inhaled medicines. If you were given antibiotics, take them as told. Do not stop taking them even if you start to feelbetter. General instructions Keep your living space clean and free of mold and dust. Watch for any changes in your symptoms. Rest as needed. Ask what things are safe for you to do at home. Ask when you can go back to work or school. Contact a health care provider if: Your shortness of breath doesn't get better as soon as expected. You have a hard time doing your normal activities, even after you rest. You have new symptoms. You can't walk up stairs. You can't exercise the way you normally do. Get help right away if: Your symptoms get worse. You have shortness of breath when you're resting. You feel light-headed or you faint. You have a cough that's not helped by medicines. You cough up blood. You have pain with breathing. You have pain in your chest, arms, shoulders, or belly. You have a fever. These symptoms may be an emergency. Call 911 right away. Do not wait to see if the symptoms will go away. Do not drive yourself to the hospital. This information is not intended to replace advice given to you by your health care provider. Make sure you discuss any questions you have with your health care provider. Document Released: 2002-07-27 Document Updated: 2025-02-06 Document Reviewed: 2025-02-06 Elsevier Patient Education ? 2024 [employer] * Addendum Note - Rachel Soriano MD - 08/27/2025 8:45 AM EDTAddended by: RACHEL CHOW on: 08/27/2025 10:48 AM Modules accepted: Orders documented in this encounter Plan of Treatment Upcoming Encounters Date Type Department Care Team (Late st Contact Info) Description 10/04/2025 8:45 AM EST Office Visit [facility] [address] [place] [phone] Rachel Chow MD [address] [place] [phone] 10/10/2025 10:30 AM EST Appointment [facility] [address] [place] [phone] 11/02/2025 9:30 AM EST Office Visit [facility] [address], [address] [place] [phone] Ky Jewell MD [address] [place] [address] 11/05/2025 2:45 PM EST Office Visit [facility] [address] [place] [address] Ruddy Mayes MD [address] [place] [address] 12/31/2025 11:30 AM EST Office Visit [facility] [address] [place] [address] 01/22/2026 9:00 AM EDT Office Visit [facility] [address] [place] [address] Allyn Toribio, GRAHAM [address] [place] [address] documented as of this encounter Goals Goal Patient Goal Type Associated Problems Recent Progress Patient-Stated? Author Patient's support system will participate in treatment General No Emily Dong documented as of this encounter Procedures Procedure Name Priority Date/Time Associated Diagnosis Comments TRANSFERRIN SATURATION Add-On 8:32 AM EDT Non-small cell lung cancer, unspecified laterality TOTAL IRON BINDING CAPACITY Add-On 08/27/2025 8:32 AM EDT Non-small cell lung cancer, unspecified laterality CBC WITH AUTO DIFFERENTIAL Routine 08/27/2025 8:32 AM EDT Non-small cell lung cancer, unspecified laterality TSH Add-On 08/27/2025 8:32 AM EDT Non-small cell lung cancer, unspecified laterality T4, FREE Add-On 08/27/2025 8:32 AM EDT Non-small cell lung cancer, unspecified laterality PHOSPHORUS Add-On 08/27/2025 8:32 AM EDT Non-small cell lung cancer, unspecified laterality MAGNESIUM Add-On 08/27/2025 8:32 AM EDT Non-small cell lung cancer, unspecified laterality IRON Add-On 08/27/2025 8:32 AM EDT Non-small cell lung cancer, unspecified laterality FOLATE Add-On 08/27/2025 8:32 AM EDT Non-small cell lung cancer, unspecified laterality FERRITIN Add-On 08/27/2025 8:32 AM EDT Non-small cell lung cancer, unspecified laterality VITAMIN B12 Add-On 08/27/2025 8:32 AM EDT Non-small cell lung cancer, unspecified laterality COMPREHENSIVE METABOLIC PANEL Routine 08/27/2025 8:32 AM EDT Non-small cell lung cancer, unspecified laterality documented in this encounter Results * T4, free (09/19/2025 9:06 AM EST) Free T4 0.95 0.61 - 1.12 ng/dL 09/19/2025 9:57 AM EST [facility] Blood Venous blood specimen / Unknown Venipuncture / Unknown 09/19/2025 9:06 AM EST 09/19/2025 9:18 AM EST us Rachel Soriano MD LAB BLOOD ORDERABLES Final Result Performing Organization Address City/State/RUST Co de Phone Number [facility] [address] [place] [address], * TSH (09/19/2025 9:06 AM EST) TSH 4.458 0.450 - 5.330 uIU/mL 09/19/2025 9:57 AM EST [facility] Comment: Non-Pregant Female: 0.45 - 5.33 IU/mL Female - 1st Trimester: 0.05 - 3.70 IU/mL Female - 2nd Trimester: 0.31 4.35 IU/mL Female - 3rd Trimester: 0.41 5.18 IU/mL Blood Venous blood specimen / Unknown Venipuncture / Unknown 09/19/2025 9:06 AM EST 09/19/2025 9:18 AM EST us Rachel Soriano MD LAB BLOOD ORDERABLES Final Result [facility] [address] [place] [address], * (ABNORMAL) Comprehensive metabolic panel (09/19/2025 9:06 AM [facility]) Sodium 139 134 - 143 mmol/L 09/19/2025 9:50 AM [facility] Potassium 3.4 3.2 - 4.6 mmol/L 09/19/2025 9:50 AM [facility] Chloride 97(L) 99 - 108 mmol/L 09/19/2025 9:50 AM [facility] CO2 31(H) 19 - 29 mmol/L 09/19/2025 9:50 AM [facility] Comment:A sample with an LDH level > 2000 u/L may report a false high bicarbonate result. Samples within the normal LDH reference range for an adult population are unaffected. Anion Gap 11 5 - 15 mmol/L 09/19/2025 9:50 AM [facility] BUN 12 7 - 20 mg/dL 09/19/2025 9:50 AM [facility] Creatinine 0.94 <=1.20 mg/dL 09/19/2025 9:50 AM [facility] BUN/Creatinine Ratio 12.77 10.00 - 20.00 ratio 09/19/2025 9:50 AM [facility] Glucose 105(H) 58 - 104 mg/dL 09/19/2025 9:50 AM [facility] Calcium 9.3 7.9 - 11.1 mg/dL 09/19/2025 9:50 AM [facility] AST 22 10 - 28 U/L 09/19/2025 9:50 AM [facility] ALT (SGPT) 17 <=40 U/L 09/19/2025 9:50 AM [facility] Alkaline Phosphatase 71 29 - 108 U/L 09/19/2025 9:50 AM [facility] Total Protein 7.5 5.9 - 7.9 g/dL 09/19/2025 9:50 AM [facility] Albumin 3.6 3.5 - 5.1 g/dL 09/19/2025 9:50 AM [facility] Total Bilirubin 0.7 0.3 - 1.0 mg/dL 09/19/2025 9:50 AM [facility] eGFR (CKD-EPI) 63.4 >60.0 - 200.0 mL/min/1.7 3m*2 09/19/2025 9:50 AM [facility] Globulin, Total 3.9 2.4 - 4.8 g/dL 09/19/2025 9:50 AM [facility] A/G Ratio 0.9 0.6 - 1.6 09/19/2025 9:50 AM [facility] Blood Venous blood specimen / Unknown Venipuncture / Unknown 09/19/2025 9:06 AM EST 09/19/2025 9:18 AM EST Rachel Soriano MD LAB BLOOD ORDERABLES Final Result [facility] [address] [place] [address], * (ABNORMAL) CBC auto differential (09/19/2025 9:06 AM EST) Auto WBC 3.1(L) 3.8 - 11.0 10*3/uL 09/19/2025 9:33 AM [facility] RBC 2.39(L) 3.73 - 5.13 10*6/uL 09/19/2025 9:33 AM [facility] Hemoglobin 9.2(L) 11.2 - 15.3 g/dL 09/19/2025 9:33 AM [facility] Hematocrit 27.1(L) 32.6 - 44.6 % 09/19/2025 9:33 AM [facility] MCV 113.2(H) 78.8 - 96.0 fL 09/19/2025 9:33 AM [facility] MCH 38.4(H) 26.2 - 33.0 pg 09/19/2025 9:33 AM [facility] MCHC 33.9 32.7 - 35.1 g/dL 09/19/2025 9:33 AM [facility] RDW 18.2(H) 12.1 - 16.1 % 09/19/2025 9:33 AM [facility] Platelets 143 138 - 402 10*3/uL 09/19/2025 9:33 AM [facility] MPV 7.7 7.0 - 10.6 fL 09/19/2025 9:33 AM [facility] Neutrophils % 52 47 - 79 % 09/19/2025 9:33 AM [facility] Lymphocytes % 32 13 - 41 % 09/19/2025 9:33 AM [facility] Monocytes % 12(H) 3 - 11 % 09/19/2025 9:33 AM [facility] Eosinophils % 2 0 - 6 % 09/19/2025 9:33 AM [facility] Basophils % 1 0 - 2 % 09/19/2025 9:33 AM [facility] Neutrophils Absolute 1.60(L) 1.90 - 7.50 10*3/uL 09/19/2025 9:33 AM [facility] Lymphocytes Absolute 1.00 0.80 - 3.20 10*3/uL 09/19/2025 9:33 AM [facility] Monocytes Absolute 0.40 0.10 - 0.90 10*3/uL 09/19/2025 9:33 AM [facility] Eosinophils Absolute 0.10 0.00 - 0.40 10*3/uL 09/19/2025 9:33 AM [facility] Basophils Absolute 0.00 0.00 - 0.20 10*3/uL 09/19/2025 9:33 AM [facility] Blood Venous blood specimen / Unknown Venipuncture / Unknown 09/19/2025 9:06 AM EST 09/19/2025 9:19 AM EST us Rachel Soriano MD LAB BLOOD ORDERABLES Final Result Performing Organization Address City/[facility]/ZIP Co de Phone Number [facility] [address] [place] [address], * T4, free (08/27/2025 8:32 AM EDT) Pathologist [facility] [place] Free T4 0.85 0.61 - 1.12 ng/dL 08/27/2025 11:19 AM EDT [facility] Blood Venous blood specimen / Unknown Venipuncture / Unknown 08/27/2025 8:32 AM EDT 08/27/2025 8:41 AM EDT us Rachel Soriano MD LAB BLOOD ORDERABLES Final Result Performing Organization Address [facility]/RUST Co de Phone Number [facility] [address] [place] [address], * (ABNORMAL) TSH (08/27/2025 8:32 AM EDT) [facility] [place] TSH 8.135(H) 0.450 - 5.330 uIU/mL 08/27/2025 11:16 AM EDT [facility] Comment: Non-Pregant Female: 0.45 - 5.33 IU/mL Female - 1st Trimester: 0.05 - 3.70 IU/mL Female - 2nd Trimester: 0.31 4.35 IU/mL Female - 3rd Trimester: 0.41 5.18 IU/mL Blood Venous blood specimen / Unknown Venipuncture / Unknown 08/27/2025 8:32 AM EDT 08/27/2025 8:41 AM EDT us Rachel Soriano MD LAB BLOOD ORDERABLES Final Result Performing Organization Address City/[facility]/ZIP Co de Phone Number [facility] [address] [place] [address], * Phosphorus (08/27/2025 8:32 AM EDT) [facility] Phosphorus 4.0 2.3 - 4.7 mg/dL 08/27/2025 11:08 AM EDT [facility] Blood Venous blood specimen / Unknown Venipuncture / Unknown 08/27/2025 8:32 AM EDT 08/27/2025 8:41 AM EDT Rachel Soriano MD LAB BLOOD ORDERABLES Final Result [facility] [address] [place] [address], * Magnesium (08/27/2025 8:32 AM EDT) Pathologist [facility] [place] Magnesium 2.0 1.8 - 2.4 mg/dL 08/27/2025 11:08 AM EDT [facility] Blood Venous blood specimen / Unknown Venipuncture / Unknown 08/27/2025 8:32 AM EDT 08/27/2025 8:41 AM EDT Rachel Soriano MD LAB BLOOD ORDERABLES Final Result Performing Organization Address City/[facility]/ZIP Co de Phone Number [facility] [address] [place] [address], * (ABNORMAL) Folate (08/27/2025 8:32 AM EDT) [facility] [place] Folate >27.2(H) 5.9 - 24.8 ng/mL 08/27/2025 11:26 AM EDT [facility] Blood Venous blood specimen / Unknown Venipuncture / Unknown 08/27/2025 8:32 AM EDT 08/27/2025 8:41 AM EDT Rachel Soriano MD LAB BLOOD ORDERABLES Final Result [facility] [address] [place] [address], * Vitamin B12 (08/27/2025 8:32 AM EDT) Pathologist [facility] [place] Vitamin B-12 373.6 180.0 - 914.0 pg/mL 08/27/2025 11:27 AM EDT [facility] Blood Venous blood specimen / Unknown Venipuncture / Unknown 08/27/2025 8:32 AM EDT 08/27/2025 8:41 AM EDT us Rachel Soriano MD LAB BLOOD ORDERABLES Final Result [facility] [address] [place] [address], [place] [phone] * Transferrin saturation (08/27/2025 8:32 AM EDT) Transferrin Saturation 50 % 08/27/2025 11:08 AM EDT [facility] Blood Venous blood specimen / Unknown Venipuncture / Unknown 08/27/2025 8:32 AM EDT 08/27/2025 8:41 AM EDT us Rachel Soriano MD LAB BLOOD ORDERABLES Final Result Performing Organization Address City/[facility]/ZIP Co de Phone Number [facility] [address] [place] [address], [place] [phone] * Total Iron Binding Capacity (08/27/2025 8:32 AM EDT) TIBC 178 ug/dL 08/27/2025 11:08 AM EDT [facility] Blood Venous blood specimen / Unknown Venipuncture / Unknown 08/27/2025 8:32 AM EDT 08/27/2025 8:41 AM EDT us Rachel Soriano MD LAB BLOOD ORDERABLES Final Result [facility] [address] [place] [address], [place] [phone] * Iron (08/27/2025 8:32 AM EDT) Iron 89 50 - 212 ug/dL 08/27/2025 11:08 AM EDT [facility] Blood Venous blood specimen / Unknown Venipuncture / Unknown 08/27/2025 8:32 AM EDT 08/27/2025 8:41 AM EDT Rachel Soriano MD LAB BLOOD ORDERABLES Final Result Performing Organization Address City/[facility]/ZIP Co de Phone Number [facility] [address] [place] [address], * (ABNORMAL) Ferritin (08/27/2025 8:32 AM EDT) Pathologist [facility] [place] Ferritin 510.0(H) 11.0 - 306.8 ng/mL 08/27/2025 11:20 AM EDT [facility] Blood Venous blood specimen / Unknown Venipuncture / Unknown 08/27/2025 8:32 AM EDT 08/27/2025 8:41 AM EDT Rachel Soriano MD LAB BLOOD ORDERABLES Final Result Performing Organization Address City/[facility]/[place]UST Co de Phone Number [facility] [address] [place] [address], * (ABNORMAL) Comprehensive metabolic panel (08/27/2025 8:32 AM EDT) Pathologist [facility], [place] Sodium 138 134 - 143 mmol/L 08/27[facility]2025 9:[facility] Potassium 3.8 3.2 - 4.6 mmol/L 08/27/2025 9:10 AM [facility] Chloride 102 99 - 108 mmol/L 08/27/2025 9:10 AM [facility] CO2 32(H) 19 - 29 mmol/L 08/27/2025 9:10 [facility] Anion Gap 4(L) 5 - 15 mmol/L 08/27/2025 9:10 AM [facility] BUN 17 7 - 20 mg/dL 08/27/2025 9:10 AM [facility] Creatinine 1.25(H) <=1.20 mg/dL 08/27/2025 9:10 AM [facility] BUN/Creatinine Ratio 13.60 10.00 - 20.00 ratio 08/27/2025 9:10 AM [facility] Glucose 95 58 - 104 mg/dL 08/27/2025 9:10 AM [facility] Calcium 9.2 7.9 - 11.1 mg/dL 08/27/2025 9:10 AM [facility] AST 17 10 - 28 U/L 08/27/2025 9:10 AM [facility] ALT (SGPT) 10 <=40 U/L 08/27/2025 9:10 AM [facility] Alkaline Phosphatase 71 29 - 108 U/L 08/27/2025 9:10 AM [facility] Total Protein 6.7 5.9 - 7.9 g/dL 08/27/2025 9:10 AM [facility] Albumin 3.0(L) 3.5 - 5.1 g/dL 08/27/2025 9:10 AM [facility] Globulin, Total 3.7 2.4 - 4.8 g/dL 08/27/2025 9:10 AM [facility] A/G Ratio 0.8 0.6 - 1.6 08/27/2025 9:10 AM [facility] Total Bilirubin 0.6 0.3 - 1.0 mg/dL 08/27/2025 9:10 AM [facility] eGFR (CKD-EPI) 44.9(L) >60.0 - 200.0 mL/min/1.7 3m*2 08/27/2025 9:10 AM [facility] Blood Venous blood specimen / Unknown Venipuncture / Unknown 08/27/2025 8:32 AM EDT 08/27/2025 8:41 AM EDT us Rachel Soriano MD LAB BLOOD ORDERABLES Final Result [facility] [address] [place] [address], * (ABNORMAL) CBC auto differential (08/27/2025 8:32 AM EDT) Auto WBC 2.0(L) 3.8 - 11.0 10*3/uL 08/27/2025 8:52 AM EDT [facility] RBC 2.33(L) 3.73 - 5.13 10*6/uL 08/27/2025 8:52 [facility] Hemoglobin 8.5(L) 11.2 - 15.3 g/dL 08/27/2025 8:52 AM [facility] Hematocrit 25.6(L) 32.6 - 44.6 % 08/27/2025 8:52 [facility] MCV 109.9(H) 78.8 - 96.0 fL 08/27/2025 8:52 AM [facility] MCH 36.5(H) 26.2 - 33.0 pg 08/27/2025 8:52 AM [facility] MCHC 33.3 32.7 - 35.1 g/dL 08/27/2025 8:52 AM [facility] RDW 18.6(H) 12.1 - 16.1 % 08/27/2025 8:52 AM [facility] Platelets 59(L) 138 - 402 10*3/uL 08/27/2025 8:52 AM [facility] MPV 7.5 7.0 - 10.6 fL 08/27/2025 8:52 AM [facility] Neutrophils % 52 47 - 79 % 08/27/2025 8:52 AM [facility] Lymphocytes % 37 13 - 41 % 08/27/2025 8:52 AM [facility] Monocytes % 7 3 - 11 % 08/27/2025 8:52 AM [facility] Eosinophils % 3 0 - 6 % 08/27/2025 8:52 AM EDT [facility] Basophils % 2 0 - 2 % 08/27/2025 8:52 AM EDT [facility] Neutrophils Absolute 1.00(L) 1.90 - 7.50 10*3/uL 08/27/2025 8:52 AM EDT [facility] Lymphocytes Absolute 0.70(L) 0.80 - 3.20 10*3/uL 08/27/2025 8:52 AM EDT [facility] Monocytes Absolute 0.10 0.10 - 0.90 10*3/uL 08/27/2025 8:52 AM EDT [facility] Eosinophils Absolute 0.10 0.00 - 0.40 10*3/uL 08/27/2025 8:52 AM EDT [facility] Basophils Absolute 0.00 0.00 - 0.20 10*3/uL 08/27/2025 8:52 AM EDT [facility] Blood Venous blood specimen / Unknown Venipuncture / Unknown 08/27/2025 8:32 AM EDT 08/27/2025 8:40 AM EDT Rachel Soriano MD LAB BLOOD ORDERABLES Final Result Performing Organization Address City/State/RUST Co de Phone Number [facility] [address] [place] [address], documented in this encounter Visit Diagnoses Diagnosis Non-small cell lung cancer, unspecified laterality- Primary documented in this encounter Additional Health Concerns Assessment Noted Time PHQ-9 Depression Total Score: 0 06/23/20 10:00 AM EDT documented as of this encounter Care Teams Cobol Application Developer Relationship Specialty Start Date End Date Lizandro Khan NP [address] [place] [address] PCP - General Family Medicine 07/23/25 Rachel Chow MD [address] [place] [address] Consulting Physician Oncology 11/11/22 Pati Rucker APRN [address] [facility] [place] [phone] Nurse Practitioner Oncology 12/21/22 Sosa Gardner APRN [address] [facility] [place] [phone] Nurse Practitioner Oncology 06/24/23 Linda Elizabeth DO [address] [facility] [place] [address] Consulting Physician Oncology 03/01/25 08/28/25 Angie Murray RN [address] [place] [address] Nurse Navigator Oncology 06/26/25 documented as of this encounter
--- OUTSIDE RECORDS SUMMARY | 2025-08-28 12:00 | XMS_ITS | Encounter Summary ---
Author Organization [facility] nter Address [address] [place] [address] Care Team Providers Care Award Clerk Name Role Phone Rachel Pagan MD Unavailable Pati Rucker FINANCIAL ADMINISTRATION OFFICER Unavailable [phone] Sosa Gardner FINANCIAL ADMINISTRATION OFFICER Unavailable [phone] Linda Elizabeth DO Unavailable Angie Murray RN Unavailable Unavailab Lizandro Islas NP Primary Care Provider [phone] Reason for Visit * Reason Comments Ingrown Toenail Encounter Details Date Type Department Care Team (Late st Contact Info) Description 08/28/2025 1:00 PM EDT Office Visit [facility] [address] [facility], 6th [place] [address] Yazan Castro DPM [address] [place] [address] Ingrown right big toenail (Primary Dx); Right foot pain Social History Tobacco Use Types [...] How often do you attend chur or lutheran services? More than 4 times per year 11/11/2022 Do you belong to any clubs o r organizations such as zoroastrian groups, unions, fraternal or athletic groups, or [...] in a residential (including now)? No 11/11/2022 [facility] - Personal Safety Answer Date Recor ded [...] things needed for daily living? No 06/23/2025 [facility] Utilities Answer Date Recorded In the past 12 months has th e electric, gas, oil, or water [employer] threatened to shut off services in your [...] Sign Reading Time Taken Comments Blood Pressure 93/60 08/28/2025 1:02 PM EDT Pulse 96 08/28/2025 1:02 PM EDT Temperature - - Respiratory Rate - - Oxygen Saturation - - Inhaled Oxygen Concentration - - Weight 59 kg (130 lb) 08/28/2025 1:02 PM EDT Height 147.3 cm (4' 10 ) 08/28/2025 1:02 PM EDT Body Mass Index 27.17 08/28/2025 1:02 PM EDT documented in this encounter Functional [...] Progress Notes * Yazan Castro, DPM - 08/28/2025 1:00 PM EDT Subjective Patient ID: Jose Sims is a 64 y.o. female who presents for Ingrown Toenail. Pt is in clinic today for a follow up due to an ingrown toenail removal. Pt is ambulatory with assistance from a wheelchair and voices severe pain in her toe that she would rate 10/10. Pt is non diabetic and reports the nail removal site has become infected. Pt went to ED on 07/27/25 and was told there was a possible hematom. Pt is taking doxycycline for treatment. Social History: Social History Socioeconomic History Marital [...] Minutes of Exercise per Session: 0 min Social Connections: Moderately Integrated (11/11/2022) Social Connection and Isolation Panel Frequency of Communication with Friends and Family: Three times a week Frequency of Social Gatherings with Friends and Family: Three times a week Attends Evangelical Services: More than 4 times per year Active Member of Clubs or Organizations: Yes Attends Club or Organization Meetings: More than 4 times per year Marital Status: Safety: Not At Risk (11/11/2022) Humiliation, Afraid, Rape, [...] through 5 are thick, long, dystrophic bilaterally The right hallux nail has dried blood overlying the nail bed with POP Left Foot/Ankle Inspection and Palpation Ecchymosis: none [...] ROM Assessment/Plan 1. Ingrown right big toenail 2. Right foot pain Patient is to continue soaking at this time. Patient needs to continue applying the ELVI and band-aid. Follow up in 2 weeks. documented in this encounter Miscellaneous Notes * Patient Education - Martin Kamara - 08/28/2025 1:04 PM EDT Images from the original note were not included. Patient Education Table of Contents Ingrown Toenail To view videos and all your education online visit, [email or web address] or scan this QR code with your [...] to help prevent infection. General instructions Take yyme-hzk-hiibgbq and prescription medicines only as told by [...] 2001-10-29 Document Updated: 2022-03-03 Document Reviewed: 2022-03-03 [employer] Patient Education ? 2024 [employer] documented in this encounter Plan of Treatment Upcoming Encounters Date Type Department Care Team (Late st Contact Info) Description 10/04/2025 8:45 AM EST Office [facility] [address], 10th [place] [address] Rachel Pagan MD [address] [facility] [place] [address] 10/10/2025 10:30 AM EST Appointment [facility] [address], 11[address] Floor Clinic [place] [address] 11/02/2025 9:30 AM EST Office Visit [facility] [address], 1st [place] [address] Ky Jewell MD [address] [facility] [place] [address] 11/05/2025 2:45 PM EST Office Visit [facility] [address], 8th [place] [address] Ruddy Mayes MD [address] [facility] [place] [address] 12/31/2025 11:30 AM EST Office Visit [facility] [address] [place] [address] 01/22/2026 9:00 AM EDT Office Visit [facility] [address], 1st [place] [address] Allyn Toribio NP [address] [place] [phone] documented as of this encounter Goals Goal Patient Goal Type Associated Problems Recent Progress Patient-Stated? Author Patient's support system will participate in treatment General Emily Ny documented as of this encounter Visit Diagnoses Diagnosis Ingrown right big toenail- Primary Ingrowing nail Right foot pain Pain in soft tissues of limb documented in this encounter Additional Health Concerns Assessment Noted Time PHQ-9 Depression Total Score: 0 06/23/20 10:00 AM EDT documented as of this encounter Care Teams Award Clerk Relationship Specialty Start Date End Date Lizandro Khan NP [address] [place] [address] PCP - General Family Medicine 07/23/25 Rachel Pagan MD [address] [place] [address] [place] [address] Consulting Physician Oncology 11/11/22 Pati Rucker APRN [address] [facility] [place] [phone] Nurse Practitioner Oncology 12/21/22 Sosa Gardner APRN [address] [facility] [place] [address] Nurse Practitioner Oncology 06/24/23 Linda Elizabeth DO [address] [facility] [place], [place] [phone] Consulting Physician Oncology 03/01/25 08/28/25 Angie Murray, RN [address] [place] [address] Nurse Navigator Oncology 06/26/25 documented as of this encounter
--- OUTSIDE RECORDS SUMMARY | 2025-08-29 08:30 | XMS_ITS | Encounter Summary ---
Author Organization [facility] nter Address [address] [place] [address] Care Team Providers Care Hip Hop Dance Instructor Name Role Phone Rachel Pagan MD Unavailable [phone] Pati Rucker COOPERER Unavailable [phone] Sosa Gardner COOPERER Unavailable [phone] Angie Murray RN Unavailable Unavailab Lizandro Islas NP Primary Care Provider Encounter Details Date Type Department Care Team (Latest Contact Info) Description 08/29/2025 9:30 AM EDT - 08/29/2025 9:53 AM EDT Hospital Encounter [facility] [address], 11th [place] [phone] Discharge Disposition: Home or Self Care Social [...] often do you attend chur ch or orthodoxy services? More than 4 times [...] in a assisted (including now)? No 11/11/2022 [facility] - Personal Safety Answer Date [...] things needed for daily living? No 06/23/2025 [facility] Utilities Answer Date [...] minutes after 20 tablet 5 09/12/20 25 documented as of this encounter Plan of Treatment Upcoming Encounters Date Type Department Care Team (Late st Contact Info) Description 10/04/2025 8:45 AM EST Office Visit [facility] [address], 10th [place] [address] Rachel Pagan MD [address] [place] [address] 10/10/2025 10:30 AM EST Appointment [facility] [address], 11th Floor [place] [phone] 11/02/2025 9:30 AM EST Office Visit [facility] [address], [address] [place] [address] [place] Jewell MD [address] [place] [address] 11/05/2025 2:45 PM EST Office Visit [facility] [address], 8th [place] [address] Ruddy Mayes MD [address] [place] [address] 12/31/2025 11:30 AM EST Office Visit [facility] [address] [place] [address] 01/22/2026 9:00 AM EDT Office Visit [facility] [address], 1st [place] [address] Allyn Toribio NP [address] [place], [place] [id number] documented as of this encounter Goals Goal Patient Goal Type Associated Problems Recent Progress Patient-Stated? Author Patient's support system will participate in treatment General No Emily Dong documented as of this encounter Visit Diagnoses Not on filedocumented in this encounter Additional Health Concerns Assessment Noted Time PHQ-9 Depression Total Score: 0 06/23/20 10:00 AM EDT documented as of this encounter Care Teams Hip Hop Dance Instructor Relationship Specialty Start Date End Date Lizandro Khan NP [address] [place], [place] [id number] PCP - General Family Medicine 07/23/25 Rachel Pagan MD [address] [facility] [place] [phone] Consulting Physician Oncology 11/11/22 Pati Rucker APRN [address] [facility] [place] [address] Nurse Practitioner Oncology 12/21/22 Sosa Gardner APRN [address] [place] [phone] Nurse Practitioner Oncology 06/24/23 Angie Murray RN [address] [place] [address] Nurse Navigator Oncology 06/26/25 documented as of this encounter
--- OUTSIDE RECORDS SUMMARY | 2025-08-29 08:54 | XMS_ITS | Encounter Summary ---
Author Organization [facility] nter Address [address] [place] [address] Care Team Providers Care Conference Translator Name Role Phone Rachel Pagan MD Unavailable [phone] Pati Rucker TOWEL WEAVER Unavailable [phone] Sosa Gardner TOWEL WEAVER Unavailable [phone] Angie Murray RN Unavailable Unavailab Lizandro Islas NP Primary Care Provider Reason for Visit * Reason Comments Lung Cancer * Auth/Cert (Routine) Specialty Diagnoses / Procedures Referred By Dorothy ceballos Referred To Contact Diagnoses Malignant neoplasm of unspecified part of unspecified bronchus or lung Procedures [place] PEMETREXED INJECTION [facility] [address] [place] [address] Phone: tel: [facility] [address] 11th [place] [address] Phone: tel: fax: Referral ID Status Reason Start Date Expiration Date Visits Re quested Visits Authorized [id number] 1 1 Encounter Details Date Type Department Care Team (Latest Contact Info) Description 08/29/2025 9:54 AM EDT - 08/29/2025 11:59 PM EDT Hospital Encounter [facility] [address], 11th [place] [address] Non-small cell lung cancer, unspecified laterality Discharge [...] How often do you attend chur or jew services? More than 4 times per year 11/11/2022 Do you belong to any clubs o r organizations such as congregational groups, unions, fraternal or athletic groups, or [...] for daily living? No 06/23/[address] [facility] Utilities Answer Date Recorded In the [...] Sign Reading Time Taken Comments Blood Pressure 120/77 08/29/2025 10:30 AM EDT Pulse 84 08/29/2025 10:30 AM EDT Temperature 36.7 C (98 F) 08/29/2025 10:30 AM EDT Respiratory Rate 18 08/29/2025 10:30 AM EDT Oxygen Saturation - - Inhaled Oxygen Concentration - - Weight 57.6 kg (127 lb) 08/29/2025 10:27 AM EDT Height - - Body Mass Index 26.54 08/28/2025 1:02 PM EDT documented in this [...] 09/12/20 25 documented as of this encounter Progress Notes * Deacon Watkins - 08/29/2025 10:30 AM EDT 1026 - Notified Dr. Chaz Sorinao patient platelet count 59, wbc 2.0, anc 1.00. VO to proceed with Keytruda. documented in this encounter Plan of Treatment Upcoming Encounters Date Type Department Care Team (Late st Contact Info) Description 10/04/2025 8:45 AM EST Office Visit [facility] [address], 10th [place] [address] Rachel Pagan MD [address] [place] [phone] 10/10/2025 10:30 AM EST Appointment [facility] [address], 11th [place] [address] 11/02/2025 9:30 AM EST Office Visit [facility] [address], [address] [place] [address] Ky Jewell MD [address] [place] [address] 11/05/2025 2:45 PM EST Office Visit [facility] [address], 8th [place] [address] Ruddy Mayes MD [address] [place] [address] 12/31/2025 11:30 AM EST Office Visit [facility] [address] [place] [address] 01/22/2026 9:00 AM EDT Office Visit [facility] [address] [place] [address] Allyn Toribio NP [address] [place] [phone] documented as of this encounter Goals Goal Patient Goal Type Associated Problems Recent Progress Patient-Stated? Author Patient's support system will participate in treatment General No Emily Dong A documented as of this encounter Visit Diagnoses Diagnosis Non-small cell lung cancer, unspecified laterality documented in this encounter Administered Medications Inactive Administered Medications - up to 3 most recent administrations Medication Order MAR Action Action Date Dose Rate Site cyanocobalamin (Vitamin B-12) injection 1,000 mcg 1,000 mcg, Subcutaneous, Once, On Wed08/29/25 at 1030, For 1 dose, Deep Subcutaneous.Indicatio ns:Non-small cell lung cancer, unspecified laterality Given 08/29/2025 11:34 AM EDT 1,000 mcg Right Upper Arm (Back) pembrolizumab (Keytruda) 200 mg in sodium chloride 0.9 % 100 mL chemo IVPB 200 mg, Intravenous, Administer over 30 Minutes, Once, On Wed08/29/25 at 1100, For 1 dose, HAZARDOUS - Handle with care Infuse through a 0.2 to 5 micron sterile, nonpyrogenic, low-protein binding inline or add-on filter. Do not infuse other medications through the same infusion line.Indications:Non-s mall cell lung cancer, unspecified laterality New Bag 08/29/2025 11:33 AM EDT 200 mg 216 mL/hr documented in this encounter Additional Health Concerns Assessment Noted Time PHQ-9 Depression Total Score: 0 06/23/20 25 10:00 AM EDT documented as of this encounter Care Teams Conference Translator Relationship Specialty Start Date End Date Lizandro Khan NP [address] [place] [address] PCP - General Family Medicine 07/23/25 Rachel Pagan MD [address] [place] [address] Consulting Physician Oncology 11/11/22 Pati Rucker APRN [address] [place] [address] Nurse Practitioner Oncology 12/21/22 Sosa Gardner APRN [address] [place] [address] Nurse Practitioner Oncology 06/24/23 Angie Murray RN [address] [place] [address] Nurse Navigator Oncology 06/26/25 documented as of this encounter
--- OUTSIDE RECORDS SUMMARY | 2025-08-30 13:30 | XMS_ITS | Encounter Summary ---
Author Organization Healthcare Address [address] [place] [address] Care Team Providers Care Webmaster Name Role Phone Lizandro Khan APRN Primary Care Provider [phone] Encounter Details Date Type Department Care Team (Latest Contact Info) Description 08/30/2025 2:30 PM EDT Office Visit [facility] [address] [place] [phone] Itz Capellan DMD [address] [place] [phone] Facial laceration, subsequent encounter (Primary Dx) Social History Tobacco Use Types [...] Sign Reading Time Taken Comments Blood Pressure 103/58 08/30/2025 2:09 PM EDT Pulse - - Temperature 36.6 C (97.9 F) 08/30/2025 2:09 PM EDT Respiratory Rate - - Oxygen Saturation - - Inhaled Oxygen Concentration - - Weight - - Height - - Body Mass Index - - documented in this encounter Miscellaneous Notes * Progress Notes - Itz Capellan DMD - 08/30/2025 2:30 PM EDT Images from the original note were not included. OMS Follow-Up Appointment Subjective: Jose Sims is a 64 y.o. female who presents for follow-up s/p L ear laceration w/ exposed cartilage on 08/22/2025. Patient states that she is having mild pain with the ear but, is ready to get the bolster off. Patient has no other complaints today. Denies nausea, vomiting, fever, or chills. Objective: Vitals: 08/30/25 1409 BP: 103/58 Temp: 36.6 ??C (97.9 ??F) Physical Exam General: Well nourished, in no acute distress.? HEENT: Normocephalic, atraumatic. No facial swelling, asymmetry, or lesions. Neck is soft, supple, nontender to palpation. Left ear with bolster in place. Sutures w/o signs of infection. No evidence of wound dehiscence. Area of blue/purple tissue on the most lateral portion of the the ear laceration. The area has capillary refill of < 2 sec. Intra-Oral: QUINTIN 40 mm. Oral mucosa moist, intact. No intraoral lesions. No pharyngeal edema. FOM soft/nontender/non-elevated. Heart: Regular rate. Lungs: Symmetrical chest rise b/l, nonlabored respirations on room air. Neurologic: Awake, alert and oriented x3. CN V and VII intact bilaterally. Patient Image: Assessment: Jose Sims is a 64 y.o. female who presents for follow-up s/p L ear laceration w/ exposed cartilage on 08/22/2025. Patient is progressing appropriately to treatment. Discussed with patient and her daughter the concern of the dark area of the laceration and the possibility of necrosis. Advised the patient to look out for drainage/ foul smell. Plan: - F/U in 1 week to re-evaluate - OK for regular diet Itz Capellan DMD [facility] state epidemiologist PGY-1 Cosigned by Frank Dias DMD at 09/05/2025 9:11 AM EDT Associated attestation - Frank Dias DMD - 09/05/2025 9:11 AM EDT I agree with the exam and assessment of the patient. documented in this encounter Plan of Treatment Upcoming Encounters Date Type Department Care Team (Late st Contact Info) Description 10/18/2025 9:30 AM EST Office Visit [place] [facility] [address], [address] [place] [address] Pepe Cabrera MD [address] [place] [address] Scheduled Orders Name Type Priority Associated Diagnoses Orde r Schedule COMPREHENSIVE ORAL EVALUATION - NEW OR ESTABLISHED PATIENT Dental Routine 1 Occurrence s starting 08/30/2025 documented as of this encounter Procedures Procedure Name Priority Date/Time Associated Diagnosis Comments FOLLOW-UP EXAM (N/C) Routine 08/30/2025 2:30 PM E DT Facial laceration, subsequent encounter documented in this encounter Visit Diagnoses Diagnosis Facial laceration, subsequent encounter- Primary documented in this encounter Additional Health Concerns Assessment Noted Time A fall risk assessment has been complete d for the patient 07/26/2025 3:13 PM EDT A Body Mass Index follow-up plan has been documented for the patient 09/03/2025 7:42 AM EDT documented as of this encounter Care Teams Webmaster Relationship Specialty Start Date End Date Lizandro Khan APRN [address] [place] [address] PCP - General 08/22/25 documented as of this encounter
--- OUTSIDE RECORDS SUMMARY | 2025-09-07 14:00 | XMS_ITS | Encounter Summary ---
Author Organization Healthcare Address [address] [place] [address] Care Team Providers Care Csm Consultant Name Role Phone Lizandro Khan APRN Primary Care Provider [phone] Encounter Details Date Type Department Care Team (Late st Contact Info) Description 09/07/2025 3:00 PM EDT Office Visit [facility] [address] [facility] [address] [place] [address] Mark Casarez, KRYSTAL [address] [facility] [address] [place] [address] Laceration of ear lobe, unspecified laterality, sequela [S01.319S] (Primary Dx) Social History Tobacco Use Types [...] Sign Reading Time Taken Comments Blood Pressure 107/54 09/07/2025 2:21 PM EDT Pulse - - Temperature 36.7 C (98.1 F) 09/07/2025 2:21 PM EDT Respiratory Rate - - Oxygen Saturation - - Inhaled Oxygen Concentration - - Weight 57.6 kg (127 lb) 09/07/2025 2:21 PM EDT Height 147.3 cm (4' 10 ) 09/07/2025 2:21 PM EDT Body Mass Index 26.54 09/07/2025 2:21 PM EDT documented in this encounter Miscellaneous Notes * Progress Notes - Rasheed Beck DMD - 09/07/2025 3:00 PM EDT Images from the original note were not included. Oral & Maxillofacial Surgery Follow-Up Note Operation: L ear laceration w/ exposed cartilage on 08/22/2025. Subjective: Jose Sims is a 64 y.o. female who presents for post-op f/u. Patient states that she has pain upon palpation and mentioned no significant improvement since she had bolster removed last week. No other complaints today. Patient denies n/v/f/c. Objective: Vitals: 09/07/25 1421 BP: 107/54 Temp: 36.7 ??C (98.1 ??F) PHYSICAL EXAM Gen: NAD Head/Face: NCAT, No facial swelling, asymmetry, or lesions. Left ear with bolster in place. Suturesw/o signs of infection. No evidence of wound dehiscence. Area of blue/purple tissue on the most lateral portion of the the ear laceration. The area has capillary refill of < 2 sec. Oral: QUINTIN 40 mm. Oral mucosa moist, intact. No intraoral lesions. No pharyngeal edema. FOM soft/nontender/non-elevated. Neck: Neck soft, no palpable lymphadenopathy. Neuro: CN II-XII grossly intact bilaterally Patient image: Assessment/Plan: Jose Sism is a 64 y.o. female who presents s/p L ear laceration w/ exposed cartilage on 08/22/2025. Patient is progressing appropriately to treatment. Discussed with patient and her daughter the concern of the dark area of the laceration and the possibility of necrosis. Advised the patient to look out for drainage/ foul smell. - Continue applying vaseline to wound F/U in 2 weeks for re-evaluation Rasheed Beck DMD Cosigned by Mark Casarez DDS at 09/09/2025 9:50 AM EDT Associated attestation - Mark Casarez DDS - 09/09/2025 9:50 AM EDT I saw and evaluated the patient with the resident/fellow. I discussed the case with the resident/fellow and agree with the findings and plan as documented. documented in this encounter Plan of Treatment Upcoming Encounters Date Type Department Care Team (Late st Contact Info) Description 10/18/2025 9:30 AM EST Office Visit [place] [facility] [address], [address] [place] [address] Pepe Cabrera MD [address] [place] [address] Scheduled Orders Name Type Priority Associated Diagnoses Orde r Schedule FOLLOW-UP EXAM (N/C) Dental Routine 1 Oc currences starting 09/07/2025 documented as of this encounter Visit Diagnoses Diagnosis Laceration of ear lobe, unspecified laterality, sequela [S01.319S]- Primary documented in this encounter Additional Health Concerns Assessment Noted Time A fall risk assessment has been complete d for the patient 07/26/2025 3:13 PM EDT A Body Mass Index follow-up plan has been documented for the patient 09/07/2025 6:37 PM EDT documented as of this encounter Care Teams Csm Consultant Relationship Specialty Start Date End Date Lizandro Khan APRN [address] [place] [address] PCP - General 08/22/25 documented as of this encounter
--- OUTSIDE RECORDS SUMMARY | 2025-09-12 07:44 | XMS_ITS | Encounter Summary ---
Author Organization [facility] n[facility] Address [address] [facility] [place] [address] Care Team Providers Care Snowboard Instructor Name Role Phone Rachel Pagan MD Unavailable Pati Rucker HERBARIUM WORKER Unavailable [phone] Sosa Gardner HERBARIUM WORKER Unavailable [phone] Angie Murray RN Unavailable Unavailab Lizandro Islas NP Primary Care Provider [phone] Reason for Referral * MRI (Routine) - Closed Specialty Diagnoses / Procedures Referred By Dorothy ceballos Referred To Contact Radiology Diagnoses Non-small cell cancer of right lung Procedures MR brain w and wo contrast Rachel Pagan MD [address] [place] [address] Phone: tel: fax: [facility] [address] [place] [address] Phone: tel: fax: Referral ID Status Reason Start Date Expiration Date V isits Requested Visits Authorized [id number] Closed Specialty Services Required 08/06/2025 11/04/2025 1 1 Reason for Visit * MRI (Routine) - Closed Specialty Diagnoses / Procedures Referred By Dorothy ceballos Referred To Contact Radiology Diagnoses Non-small cell cancer of right lung Procedures MR brain w and wo contrast Rachel Pagan MD [address] [facility] [place] [place] [address] Phone: tel: fax: [facility] [address] [facility] [place] [address] Phone: tel: fax: Referral ID Status Reason Start Date Expiration Date V isits Requested Visits Authorized [id number] Closed Specialty Services Required 08/06/2025 11/04/2025 1 1 Encounter Details Date Type Department Care Team (Latest Contact Info) Description 09/12/2025 8:44 AM EDT - 09/12/2025 8:45 AM EDT Hospital Encounter [facility] D [address], [facility] [place] [place] [address] Non-small cell cancer of right lung [...] often do you attend chur ch or mormon services? More than 4 times per year 11/11/2022 Do you belong to any clubs o r organizations such as orthodoxy groups, unions, fraternal or athletic groups, or [...] in a alf (including now)? No 11/11/2022 [facility] - Personal Safety Answer Date Recor ded How often does anyone, inclu ding family and friends, physically hurt you? Never 06/19/2025 How often does anyone, inclu ding family and friends, insult or talk down [...] things needed for daily living? No 06/23/2025 [facility] Utilities Answer Date Recorded In the [...] Description 10/04/2025 8:45 AM EST Office Visit [facility] [address] [place] [address] Rachel Pagan MD [address] [place] [address] 10/10/2025 10:30 AM EST Appointment [facility] [address], [address] [place] [address] 11/02/2025 9:30 AM EST Office Visit [facility] [address] [place] [address] Ky Jewell MD [address] [place] [address] 11/05/2025 2:45 PM EST Office Visit [facility] [address] [place] [address] Ruddy Mayes MD [address] [place] [address] 12/31/2025 11:30 AM EST Office Visit [facility] [address] [phone] 01/22/2026 9:00 AM EDT Office Visit [facility] [address] [place] [address] Allny Toribio NP [address] [phone] documented as of this encounter Goals Goal Patient Goal Type Associated Problems Recent Progress Patient-Stated? Author Patient's support system will participate in treatment General No Emily Dong documented as of this encounter Procedures Procedure Name Priority Date/Time Associated Diagnosis Comments MR BRAIN W AND WO CONTRAST Routine 09/12/2025 9:45 AM EDT Non-small cell cancer of right lung documented in this encounter Results * MR brain w and wo contrast (09/12/2025 9:45 AM EDT) Anatomical Region Laterality Modality Brain Magnetic Resonan ce 09/12/2025 9:19 AM EDT Impressions 09/12/2025 9:58 AM EDT The exam is moderately limited by patient movement. There is persistent subcentimeter area of enhancement within the right parietal subcortical white matter which represent metastatic lesion no other definite areas of abnormal contrast enhancement are identified. Electronically signed by: Don Cabrera MD 09/12/2025 09:58 AM EDT RP Narrative 09/12/2025 9:58 AM EDT PROCEDURE: MR BRAIN WITHOUT THEN WITH IV CONTRAST: 09/12/2025 CLINICAL INFORMATION: NSCLC with brain mets. H/o stroke Comparison: 06/12/2025 Exam is moderately limited by patient The configuration of the ventricles and sulci show cortical volume loss. There is no evidence of acute intracranial hemorrhage. There is a persistent area of enhancement within the right parietal subcortical region relatively unchanged. There is otherwise no evidence of mass, or mass effect. No other abnormal postcontrast enhancement is recognized. There is diffusely scattered periventricular and subcortical white matter disease. Diffusion- weighted images show no evidence of acute ischemic change. Included osseous structures are intact. Paranasal sinuses and mastoids are clear. The included soft tissues image normally. Procedure Note Don Cabrera MD - 09/12/2025 PROCEDURE: MR BRAIN WITHOUT THEN WITH IV CONTRAST: 09/12/2025 CLINICAL INFORMATION: NSCLC with brain mets. H/o stroke Comparison: 06/12/2025 Exam is moderately limited by patient The configuration of the ventriclesand sulci show cortical volume loss. There is no evidence of acuteintracranial hemorrhage. There is a persistent area of enhancement withinthe right parietal subcortical region relatively unchanged. There isotherwise no evidence of mass, or mass effect. No other abnormalpostcontrast enhancement is recognized. There is diffusely scatteredperiventricular and subcortical white matter disease. Diffusion-weightedimages show no evidence of acute ischemic change. Included osseous structures are intact. Paranasal sinuses and mastoids areclear. The included soft tissues image normally. IMPRESSION: The exam is moderately limited by patient movement. There is persistentsubcentimeter area of enhancement within the right parietal subcorticalwhite matter which represent metastatic lesion no other definite areas ofabnormal contrast enhancement are identified. Electronically signed by: Dno Cabrera MD 09/12/2025 09:58 AM EDT RPWorkstation: [id number] Rachel Soriano MD IMG MRI PROCEDURES Final Re sult documented in this encounter Visit Diagnoses Diagnosis Non-small cell cancer of right lung documented in this encounter Administered Medications Inactive Administered Medications - up to 3 most recent administrations Medication Order MAR Action Action Date Dose Rate Site gadoteridol (Prohance) injection 4,189.5 mg 4,189.5 mg (15 mL), Intravenous, Once in imaging, Starting on Wed09/12/25 at 0945, For 1 dose Given 09/12/2025 9:46 AM EDT 4,189.5 mg documented in this encounter Additional Health Concerns Assessment Noted Time PHQ-9 Depression Total Score: 0 06/23/20 25 10:00 AM EDT documented as of this encounter Care Teams Snowboard Instructor Relationship Specialty Start Date End Date Lizandro Khan NP [address] [place], [place] [phone] PCP - General Family Medicine 07/23/25 Rachel Pagan MD [address] [place] [address] Consulting Physician Oncology 11/11/22 Pati Rucker APRN [address] [place] [phone] Nurse Practitioner Oncology 12/21/22 Sosa Gardner APRN [address] [place] [phone] Nurse Practitioner Oncology 06/24/23 Angie Murray, RN [address] [place] [address] Nurse Navigator Oncology 06/26/25 documented as of this encounter
--- OUTSIDE RECORDS SUMMARY | 2025-09-12 07:46 | XMS_ITS | Encounter Summary ---
Author Organization [facility] nter Address [address] [place] [address] Care Team Providers Care Associate Automation Engineer Name Role Phone Rachel Pagan MD Unavailable [phone] Pati Rucker COAL OR ORE CONTROLLER Unavailable [phone] Sosa Gardner COAL OR ORE CONTROLLER Unavailable [phone] Angie Murray RN Unavailable Unavailab Lizandro Islas NP Primary Care Provider Encounter Details Date Type Department Care Team (Latest Contact Info) Description 09/12/2025 8:46 AM EDT - 09/12/2025 11:59 PM EDT Hospital Encounter [facility] D [address], [address] [place] [phone] Right hip pain Discharge Disposition: Home or Self Care Social [...] often do you attend chur ch or sabianism services? More than 4 times per year [...] in a correction (including now)? No 11/11/2022 [facility] - Personal Safety Answer Date Recor [...] things needed for daily living? No 06/23/2025 [facility] Utilities Answer Date Recorded In the [...] of Assessment Author No 10/27/2022 3:29 PM eDmetri Moser RN * Do you have serious [...] the morning. 30 tablet 11 06/23/2025 6 lisinopril 40 MG tablet Take 1 tablet [...] (eight) hours. 450 mL 1 08/06/2025 5 documented as of this encounter Plan of Treatment Upcoming Encounters Date Type Department Care Team (Late st Contact Info) Description 10/04/2025 8:45 AM EST Office Visit [facility] [address] [place] [address] Rachel Pagan MD [address] [place] [address] 10/10/2025 10:30 AM EST Appointment [facility] [address], [address] [place] [address] 11/02/2025 9:30 AM EST Office Visit [facility] [address], [address]st [place] [address] Ky Jewell MD [address] [place] [address] 11/05/2025 2:45 PM EST Office Visit [facility] [address], [address] [place] [address] Ruddy Mayes MD [address] [facility] [place] [address] 12/31/2025 11:30 AM EST Office Visit [facility] [address] [place], [place] [phone] 01/22/2026 9:00 AM EDT Office Visit [facility] [address], [address] [place] [address] Allyn Toribio NP [address] [place] [phone] documented as of this encounter Goals Goal Patient Goal Type Associated Problems Recent Progress Patient-Stated? Author Patient's support system will participate in treatment General Emily Ny documented as of this encounter Procedures Procedure Name Priority Date/Time Associated Diagnosis Comments XR HIP 2 OR 3 VIEWS RIGHT Routine 09/12/2025 9:55 AM EDT Right hip pain documented in this encounter Results * XR hip 2 or 3 views right (09/12/2025 9:55 AM EDT) Anatomical Region Laterality Modality Lower Extremities, Hip Right Digital R adiography 09/12/2025 8:52 AM EDT Impressions 09/12/2025 10:52 AM EDT Moderate arthritic change of the right hip. Electronically signed by: Don Cabrera MD 09/12/2025 10:52 AM EDT RP Narrative 09/12/2025 10:52 AM EDT PROCEDURE: XR HIP 2 OR MORE VIEWS RIGHT: 09/12/2025 CLINICAL INFORMATION: right hip pain Alignment is anatomic. There is no evidence of acute fracture, or dislocation. There is moderate arthritic change of the right hip. Included soft tissues are within normal limits. Procedure Note Don Cabrera MD - 09/12/2025 PROCEDURE: XR HIP 2 OR MORE VIEWS RIGHT: 09/12/2025 CLINICAL INFORMATION: right hip pain Alignment is anatomic. There is no evidence of acute fracture, ordislocation. There is moderate arthritic change of the right hip. Includedsoft tissues are within normal limits. IMPRESSION: Moderate arthritic change of the right hip. Electronically signed by: Don Cabrera MD 09/12/2025 10:52 AM EDT RPWorkstation: [id number] Lizandro Khan FISH CLEANER MACHINE TENDER IMG XR PROCEDURES Final Res ult documented in this encounter Visit Diagnoses Diagnosis Right hip pain Pain in joint, pelvic region and thigh documented in this encounter Additional Health Concerns Assessment Noted Time PHQ-9 Depression Total Score: 0 06/23/20 10:00 AM EDT documented as of this encounter Care Teams Associate Automation Engineer Relationship Specialty Start Date End Date Lizandro Khan NP [address] [place] [address] PCP - General Family Medicine 07/23/25 Rachel Pagan MD [address] [place] [phone] Consulting Physician Oncology 11/11/22 Pati Rucker APRN [address] [place] [phone] Nurse Practitioner Oncology 12/21/22 Sosa Gardner APRN [address] [place] [phone] Nurse Practitioner Oncology 06/24/23 Angie Murray RN [address] [place] [address] Nurse Navigator Oncology 06/26/25 documented as of this encounter
--- OUTSIDE RECORDS SUMMARY | 2025-09-12 12:30 | XMS_ITS | Encounter Summary ---
Author Organization [facility] nter Address [address] [place] [address] Care Team Providers Care Wire Saw Operator Name Role Phone Rachel Pagan MD Unavailable [phone] Pati Rucker LEAD ETL DEVELOPER Unavailable [phone] Sosa Gardner LEAD ETL DEVELOPER Unavailable [phone] Angie Murray RN Unavailable Unavailab Lizandro Islas NP Primary Care Provider Reason for Visit * Reason Comments Ingrown Toenail Encounter Details Date Type Department Care Team (Late st Contact Info) Description 09/12/2025 1:30 PM EDT Office Visit [facility] [address] 6th [place] [address] Yazan Castro DPM [address] [place] [address] Ingrown right big toenail (Primary [...] How often do you attend [facility] or rastafari services? More than 4 times [...] in a jail (including now)? No 11/11/2022 [facility] - Personal Safety Answer Date Recor [...] for daily living? No 06/23/2025 [facility] Utilities Answer Date Recorded In the [...] Sign Reading Time Taken Comments Blood Pressure - - Pulse - - Temperature - - Respiratory Rate - - Oxygen Saturation - - Inhaled Oxygen Concentration - - Weight 57.6 kg (127 lb) 09/12/2025 1:05 PM EDT Height 147.3 cm (4' 10 ) 09/12/2025 1:05 PM EDT Body Mass Index 26.54 09/12/2025 1:05 PM EDT documented in this encounter Functional [...] Progress Notes * Yazan Castro DPM - 09/12/2025 1:30 PM EDT Subjective Patient ID: Jose [place]s is a 64 y.o. female who presents for Ingrown Toenail. Pt is here today for a 2 week follow up on right great toe ingrown removal. Pt is ambulatory with assistance of a wheelchair. Pt reports pain of 10/10. Pt states pain is pretty severe and that she has had a lot of swelling in her feet. Social History: Social History Socioeconomic History Marital status: Spouse name: Not on file Number of children: Not on file Years of education: Not on file Highest education level: Not on file Occupational History Not on file Tobacco Use Smoking status: Every Day Current packs/day: 0.25 Average packs/day: 0.5 packs/day for 30.8 years (15.3 ttl pk-yrs) Types: Cigarettes Start [...] and Family: Three times a week Attends [employer] Services: More than 4 times per year [...] Neurological: Negative. Hematological: Negative. Psychiatric/Behavioral: Negative. Objective Foot Exam General General Appearance: appears [...] dystrophic bilaterally The right hallux nail has eschar overlying the nail bed with POP Left [...] ROM Assessment/Plan 1. Ingrown right big toenail (Primary) -Patient was seen and evaluated today in clinic. Discussed the condition and treatment options withthe patient. -Patient can discontinue soaking at this time. Patient does not need to continue applying ELVI or band-aid. -Patient is to dress with betadine. -Patient is to follow up 2 weeks. 2. Right foot pain -See above documented in this encounter Plan of Treatment Upcoming Encounters Date Type Department Care Team (Late st Contact Info) Description 10/04/2025 8:45 AM EST Office Visit [facility] [address] 10th [place] [address] Rachel Pagan MD [address] [phone] 10/10/2025 10:[address] [facility] [address], 11th [place] [address] 11/02/2025 9:30 AM EST Office Visit [facility] [address], [address]st [place] [address] Ky Jewell MD [address] [place] [address] 11/05/2025 2:45 PM EST Office Visit [facility] [address], 8th [place] [address] Ruddy Mayes MD [address] [place] [address] 12/31/2025 11:30 AM EST Office Visit [facility] [address] [phone] 01/22/2026 9:00 AM EDT Office Visit [facility] [address] [place] [address] Allyn Toribio NP [address] [place], [place] [id number] documented as of this encounter Goals Goal [...] documented as of this encounter Care Teams Wire Saw Operator Relationship Specialty Start Date End Date Lizandro Khan NP [address] [place] [address] PCP - General Family Medicine 07/23/25 Rachel Pagan MD [address] [place] [address] Consulting Physician Oncology 11/11/22 Pati Rucker APRN [address] [place] [address] Nurse Practitioner Oncology 12/21/22 Sosa Gardner APRN [address] [place] [address] Nurse Practitioner Oncology 06/24/23 Angie Murray, ROLDAN [address] [place] [address] Nurse Navigator Oncology 06/26/25 documented as of this encounter
--- OUTSIDE RECORDS SUMMARY | 2025-09-19 08:30 | XMS_ITS | Encounter Summary ---
Author Organization [facility] nter Address [address] [place] [address] Care Team Providers Care Nuclear Medicine Technician Name Role Phone Rachel Pagan MD Unavailable Pati Rucker SAMPLE CLERK Unavailable [phone] Sosa Gardner SAMPLE CLERK Unavailable [phone] Angie Murray RN Unavailable Unavailab Lizandro Islas NP Primary Care Provider [phone] Encounter Details Date Type Department Care Team (Latest Contact Info) Description 09/19/2025 8:30 AM EST - 09/19/2025 9:13 AM [facility] Hospital Encounter [facility] [address] 11th [place] [phone] Non-small cell lung cancer, unspecified laterality Discharge [...] often do you attend chur ch or gnosticism services? More than 4 times per year 11/11/2022 Do you belong to any clubs o r organizations such as gnosticist groups, unions, fraternal or athletic groups, or [...] place to sleep or slept in a custodial (including now)? No 11/11/2022 [facility] - Personal Safety Answer Date [...] things needed for daily living? No 06/23/2025 [facility] Utilities Answer Date Recorded In [...] Description 10/04/2025 8:45 AM EST Office Visit [facility] [address], 10th [place] [address] Rachel Pagan MD [address] [place] [address] 10/10/2025 10:30 AM EST Appointment [facility] [address], 11th [place] [address] 11/02/2025 9:30 AM EST Office Visit [facility] [address], 1st [place] [address] Ky Jewell MD [address] [place] [address] 11/05/2025 2:45 PM EST Office Visit [facility] [address], 8th [place] [address] Ruddy Mayes MD [address] [facility] [place] [address] 12/31/2025 11:30 AM EST Office Visit [facility] [address] [place], [place] [phone] 01/22/2026 9:00 AM EDT Office Visit [facility] [address], 1st [place] [address] Allyn Toribio NP [address] [place] [phone] documented as of this encounter Goals Goal Patient Goal Type Associated Problems Recent Progress Patient-Stated? Author Patient's support system will participate in treatment General Emily Ny documented as of this encounter Procedures Procedure Name Priority Date/Time Associated Diagnosis Comments CBC WITH AUTO DIFFERENTIAL Routine 09/19/2025 9:06 AM EST Non-small cell lung cancer, unspecified laterality TSH Routine 09/19/2025 9:06 AM EST Non-small cell lung cancer, unspecified laterality T4, FREE Routine 09/19/2025 9:06 AM EST Non-small cell lung cancer, unspecified laterality COMPREHENSIVE METABOLIC PANEL Routine 09/19/2025 9:06 AM EST Non-small cell lung cancer, unspecified laterality documented in this encounter Results * T4, free (09/19/2025 9:06 AM EST) Free T4 0.95 0.61 - 1.12 ng/dL 09/19/2025 9:57 AM EST [facility] Blood Venous blood specimen / Unknown Venipuncture / Unknown 09/19/2025 9:06 AM EST 09/19/2025 9:18 AM EST Rachel Soriano MD LAB BLOOD ORDERABLES Final Result Performing Organization Address City/State/[facility] de Phone Number [facility] [address] [place] [address], * TSH (09/19/2025 9:06 AM EST) [facility] TSH 4.458 0.450 - 5.330 uIU/mL 09/19/2025 9:57 AM [facility] Comment: Non-Pregant Female: 0.45 - 5.33 IU/mL Female - 1st Trimester: 0.05 - 3.70 IU/mL Female - 2nd Trimester: 0.31 4.35 IU/mL Female - 3rd Trimester: 0.41 5.18 IU/mL Blood Venous blood specimen / Unknown Venipuncture / Unknown 09/19/2025 9:06 AM EST 09/19/2025 9:18 AM EST Rachel Soriano MD LAB BLOOD ORDERABLES Final Result Performing Organization Address [facility] Phone Number [facility] [address] [place] [address], * (ABNORMAL) Comprehensive metabolic panel (09/19/2025 9:06 AM EST) [facility] Sodium 139 134 - 143 mmol/L 09/19/2025 9:50 AM [facility] Potassium 3.4 3.2 - 4.6 mmol/L 09/19/2025 9:50 AM [facility] Chloride 97(L) 99 - 108 mmol/L 09/19/2025 9:50 AM [facility] CO2 31(H) 19 - 29 mmol/L 09/19/2025 9:50 AM [facility] Comment:A sample with an LDH level > 2000 u/L may report a false high bicarbonate result. Samples within the normal LDH reference range for an adult population are unaffected. Anion Gap 11 5 - 15 mmol/L 09/19/2025 9:50 AM [facility] BUN 12 7 - 20 mg/dL 09/19/2025 9:50 AM [facility] Creatinine 0.94 <=1.20 mg/dL 09/19/2025 9:50 AM [facility] BUN/Creatinine Ratio 12.77 10.00 - 20.00 ratio 09/19/2025 9:50 AM [facility] Glucose 105(H) 58 - 104 mg/dL 09/19/2025 9:50 AM [facility] Calcium 9.3 7.9 - 11.1 mg/dL 09/19/2025 9:50 AM [facility] AST 22 10 - 28 U/L 09/19/2025 9:50 AM [facility] ALT (SGPT) 17 <=40 U/L 09/19/2025 9:50 AM [facility] Alkaline Phosphatase 71 29 - 108 U/L 09/19/2025 9:50 AM [facility] Total Protein 7.5 5.9 - 7.9 g/dL 09/19/2025 9:50 AM [facility] Albumin 3.6 3.5 - 5.1 g/dL 09/19/2025 9:50 AM [facility] Total Bilirubin 0.7 0.3 - 1.0 mg/dL 09/19/2025 9:50 AM [facility] eGFR (CKD-EPI) 63.4 >60.0 - 200.0 mL/min/1.7 3m*2 09/19/2025 9:50 AM [facility] Globulin, Total 3.9 2.4 - 4.8 g/dL 09/19/2025 9:50 AM [facility] A/G Ratio 0.9 0.6 - 1.6 09/19/2025 9:50 AM [facility] Blood Venous blood specimen / Unknown Venipuncture / Unknown 09/19/2025 9:06 AM EST 09/19/2025 9:18 AM EST us Rachel Soriano MD LAB BLOOD ORDERABLES Final Result [facility] [address] [place] [address], [place] [phone] * (ABNORMAL) CBC auto differential (09/19/2025 9:06 AM [facility]) Auto WBC 3.1(L) 3.8 - 11.0 10*3/uL 09/19/2025 9:33 AM [facility] RBC 2.39(L) 3.73 - 5.13 10*6/uL 09/19/2025 9:33 AM [facility] Hemoglobin 9.2(L) 11.2 - 15.3 g/dL 09/19/2025 9:33 AM [facility] Hematocrit 27.1(L) 32.6 - 44.6 % 09/19/2025 9:33 AM [facility] MCV 113.2(H) 78.8 - 96.0 fL 09/19/2025 9:33 AM [facility] MCH 38.4(H) 26.2 - 33.0 pg 09/19/2025 9:33 AM [facility] MCHC 33.9 32.7 - 35.1 g/dL 09/19/2025 9:33 AM [facility] RDW 18.2(H) 12.1 - 16.1 % 09/19/2025 9:33 AM [facility] Platelets 143 138 - 402 10*3/uL 09/19/2025 9:33 AM [facility] MPV 7.7 7.0 - 10.6 fL 09/19/2025 9:33 AM [facility] Neutrophils % 52 47 - 79 % 09/19/2025 9:33 AM [facility] Lymphocytes % 32 13 - 41 % 09/19/2025 9:33 AM [facility] Monocytes % 12(H) 3 - 11 % 09/19/2025 9:33 AM [facility] Eosinophils % 2 0 - 6 % 09/19/2025 9:33 AM [facility] Basophils % 1 0 - 2 % 09/19/2025 9:33 AM [facility] Neutrophils Absolute 1.60(L) 1.90 - 7.50 10*3/uL 09/19/2025 9:33 AM [facility] Lymphocytes Absolute 1.00 0.80 - 3.20 10*3/uL 09/19/2025 9:33 AM [facility] Monocytes Absolute 0.40 0.10 - 0.90 10*3/uL 09/19/2025 9:33 AM EST [facility] Eosinophils Absolute 0.10 0.00 - 0.40 10*3/uL 09/19/2025 9:33 AM [facility] Basophils Absolute 0.00 0.00 - 0.20 10*3/uL 09/19/2025 9:33 AM [facility] Blood Venous blood specimen / Unknown Venipuncture / Unknown 09/19/2025 9:06 AM EST 09/19/2025 9:19 AM EST Rachel Soriano MD LAB BLOOD ORDERABLES Final Result Performing Organization Address City/State/[facility] Co de Phone Number [facility] [address] [place] [address], documented in this encounter Visit Diagnoses Diagnosis Non-small cell lung cancer, unspecified laterality documented in this encounter Additional Health Concerns Assessment Noted Time PHQ-9 Depression Total Score: 0 06/23/20 25 10:00 AM EDT documented as of this encounter Care Teams Nuclear Medicine Technician Relationship Specialty Start Date End Date Lizandro Khan NP [address] [place] [address] PCP - General Family Medicine 07/23/25 Rachel Pagan MD [address] [place] [address] Consulting Physician Oncology 11/11/22 Pati Rucker APRN [address] [place] [address] Nurse Practitioner Oncology 12/21/22 Sosa Gardner APRN [address] [facility] [address] Nurse Practitioner Oncology 06/24/23 Angie Murray RN [address] [place] [address] Nurse Navigator Oncology 06/26/25 documented as of this encounter
--- OUTSIDE RECORDS SUMMARY | 2025-09-19 09:14 | XMS_ITS | Encounter Summary ---
Author Organization [facility] nter Address [address] [place] [address] Care Team Providers Care Bull Rider Name Role Phone Rachel Pagan MD Unavailable [phone] Pati Rucker DYE STAND LOADER Unavailable [phone] Sosa Gardner DYE STAND LOADER Unavailable [phone] Anige Murray RN Unavailable Unavailab Lizandro Islas NP Primary Care Provider Reason for Visit * Reason Comments Lung Cancer * Auth/Cert (Routine) Specialty Diagnoses / Procedures Referred By Dorothy ceballos Referred To Contact Diagnoses Malignant neoplasm of unspecified part of unspecified bronchus or lung Procedures [place] PEMETREXED INJECTION [facility] [address] [place] [address] Phone: tel: [facility] [address] 11th [place] [address] Phone: tel: fax: Referral ID Status Reason Start Date Expiration Date Visits Re quested Visits Authorized [id number] 1 1 Encounter Details Date Type Department Care Team (Latest Contact Info) Description 09/19/2025 9:14 AM EST - 09/19/2025 11:59 PM EST Hospital Encounter [facility] [address]th [place] [address] Non-small cell lung cancer, unspecified laterality (Primary [...] week 11/11/2022 How often do you attend [facility] or holiness services? More than 4 times per year 11/11/2022 Do you belong to any clubs o r organizations such as taoist groups, unions, fraternal or athletic groups, or [...] in a assisted (including now)? No 11/11/2022 [facility] - Personal Safety Answer Date Recor ded [...] things needed for daily living? No 06/23/2025 [facility] Utilities Answer Date Recorded In the past 12 months has e [employer], gas, oil, or water [employer] threatened to shut off services in your [...] Sign Reading Time Taken Comments Blood Pressure 118/54 09/19/2025 9:20 AM EST Pulse 82 09/19/2025 9:20 AM EST Temperature 37 C (98.6 F) 09/19/2025 9:20 AM EST Respiratory Rate 18 09/19/2025 9:20 AM EST Oxygen Saturation - - Inhaled Oxygen Concentration - - Weight 57.3 kg (126 lb 6.4 oz) 09/19/2025 9:20 A M EST Height - - Body Mass Index 26.42 09/12/2025 1:05 PM EDT documented in this [...] at bedtime. 90 tablet 3 07/18/2025 6 bumetanide (Bumex) 2 MG tablet Take 1 tablet (2 mg) by mouth in the morning and at bedtime. Hold for systolic blood pressure less than or equal to 100 mmHg 180 tablet 3 07/18/2025 6 cyclobenzaprine (Flexeril) 10 MG tablet TAKE 1 [...] 8 (eight) hours. 450 mL 1 08/06/2025 documented as of this encounter Progress Notes * Trena Sims - 09/19/2025 10:30 AM EST Order received from Barbie Gudino APRN and called in Nystatin powder, apply twice daily to affected area to [facility] in [place]. Patient notified of all the above and verbalizes good understanding. documented in this encounter Plan of Treatment Upcoming Encounters Date Type Department Care Team (Late st Contact Info) Description 10/04/2025 8:45 AM EST Office Visit [facility] [address] [place] [address] Rachel Pagan MD [address] [place], [place] [phone] 10/10/2025 10:30 AM EST Appointment [facility] [address], [address] [place] [address] 11/02/2025 9:30 AM EST Office Visit [facility] [address] [place] [phone] Ky Jewell MD [address] [place] [address] 11/05/2025 2:45 PM EST Office Visit [facility] [address], 8th [place] [address] Ruddy Mayes MD [address] [place] [address] 12/31/2025 11:30 AM EST Office Visit [facility] [address] [phone] 01/22/2026 9:00 AM EDT Office Visit [facility] [address], [address] [place] [address] Allyn Toribio NP [address] [place], [place] [phone] Scheduled Orders Name Type Priority Associated Diagnoses Orde r Schedule CBC auto differential Lab Routine Non-small cell lung cancer, unspecified laterality Expected: 09/19/2025, Expires: 09/19/2026 Comprehensive metabolic panel Lab Routine Non-small cell lung cancer, unspecified laterality Expected: 09/19/2025, Expires: 09/19/2026 TSH Lab Routine Non-small cell lung cancer, unspecified laterality Expected: 09/19/2025, Expires: 09/19/2026 T4, free Lab Routine Non-small cell lung cancer, unspecified laterality Expected: 09/19/2025, Expires: 09/19/2026 documented as of this encounter Goals Goal [...] Intravenous, Administer over 30 Minutes, Once, On Wed09/19/25 at 1100, For 1 dose, HAZARDOUS - Handle with care Infuse through a 0.2 to 5 micron sterile, nonpyrogenic, low-protein binding inline or add-on filter. Do not infuse other medications through the same infusion line.Indications:Non-small cell lung cancer, unspecified laterality New Bag 09/19/2025 11:23 AM EST 200 mg 216 mL/hr documented in this encounter Additional Health Concerns Assessment Noted Time PHQ-9 Depression Total Score: 0 06/23/20 25 10:00 AM EDT documented as of this encounter Care Teams Bull Rider Relationship Specialty Start Date End Date Lizandro Khan NP [address] [place] [address] PCP - General Family Medicine 07/23/25 Rachel Pagan MD [address] [facility] [place] [address] Consulting Physician Oncology 11/11/22 Pati Rucker APRN [address] [facility] [place] [address] Nurse Practitioner Oncology 12/21/22 Sosa Gardner APRN [address] [facility] [place] [address] Nurse Practitioner Oncology 06/24/23 Angie Murray RN [address] [place] [address] Nurse Navigator Oncology 06/26/25 documented as of this encounter
--- OUTSIDE RECORDS SUMMARY | 2025-09-21 09:30 | XMS_ITS | Encounter Summary ---
Author Organization Healthcare Address [facility] [place] [id number] Care Team Providers Care Computer Animator Name Role Phone Lizandro Khan APRN Primary Care Provider [phone] Encounter Details Date Type Department Care Team (Latest Contact Info) Description 09/21/2025 9:30 AM EST Office Visit [facility] [address] [place] [address] Itz Capellan DMD [address] [place] [address] Facial laceration, subsequent encounter (Primary Dx) Social [...] Sign Reading Time Taken Comments Blood Pressure 134/59 09/21/2025 9:35 AM EST Pulse 71 09/21/2025 9:35 AM EST Temperature 36.8 C (98.2 F) 09/21/2025 9:35 AM EST Respiratory Rate - - Oxygen Saturation 95% 09/21/2025 9:35 AM EST Inhaled Oxygen Concentration - - Weight - - Height - - Body Mass Index - - documented in this encounter Miscellaneous Notes * Progress Notes - Itz Capellan DMD - 09/21/2025 9:30 AM EST OMS Follow-Up Appointment Subjective: Jose Sims is a 64 y.o. female who presents for follow-up s/p left ear laceration on 08/22/2025. Patient states that she is feeling better and that she has has no pain with the ear. Patient has no other complaints today. Denies nausea, vomiting, fever, or chills. Objective: Vitals: 09/21/25 0935 BP: 134/59 Pulse: 71 Temp: 36.8 ??C (98.2 ??F) SpO2: 95% Physical Exam General: Well nourished, in no acute distress.? HEENT: Normocephalic, atraumatic. No facial swelling, asymmetry, or lesions. Neck is soft, supple, nontender to palpation. Left ear laceration progressing as expected. Good cap refill less than 2 seconds. Site of scabbing looks appropriate. Intra-Oral: QUINTIN 40 mm. Occlusion stable and reproducible. Oral mucosa moist, intact. No intraoral lesions. No pharyngeal edema. FOM soft/nontender/non-elevated. Heart: Regular rate. Lungs: Symmetrical chest rise b/l, nonlabored respirations on room air. Neurologic: Awake, alert and oriented x3. CN V and VII intact bilaterally. Assessment: Jose Sims is a 64 y.o. female who presents for follow-up s/p left ear laceration on 08/22/2025. . Patient is progressing appropriately to treatment. Plan: - F/U PRN - OK for regular diet Itz Capellan DMD [facility] chief of staff doctor PGY-1 Cosigned by Mark Casarez DDS at 09/21/2025 12:49 PM EST Associated attestation - Mark Casarez DDS - 09/21/2025 12:49 PM EST I saw and evaluated the patient with the resident/fellow. I discussed the case with the resident/fellow and agree with the findings and plan as documented. documented in this encounter Plan of Treatment Upcoming Encounters Date Type Department Care Team (Late st Contact Info) Description 10/18/2025 9:30 AM EST Office Visit [place] [facility] [address] [place] [address] Pepe Cabrera MD [address] [place] [address] documented as of this encounter Procedures Procedure Name Priority Date/Time Associated Diagnosis Comments FOLLOW-UP EXAM (N/C) Routine 09/21/2025 9:[address] Facial laceration, subsequent encounter documented in this encounter Visit Diagnoses Diagnosis Facial laceration, subsequent encounter- Primary documented in this encounter Additional Health Concerns Assessment Noted Time A fall risk assessment has been complete d for the patient 07/26/2025 3:13 PM EDT A Body Mass Index follow-up plan has been documented for the patient 09/21/2025 12:37 PM EST documented as of this encounter Care Teams Computer Animator Relationship Specialty Start Date End Date Lizandro Khan APRN [address] [place] [address] PCP - General 08/22/25 documented as of this encounter
[2025-09-30 11:19] VITALS: BP 114/81; PULSE 86; RESP 22; TEMP 36.7; O2SAT 92; BMI 26.5
[2025-09-30 11:32] VITALS: BP 130/56; PULSE 86; RESP 23; O2SAT 95
--- OUTSIDE RECORDS SUMMARY | 2025-09-30 11:37 | XMS_ITS | Encounter Summary ---
Author Organization [facility] nter Address [address] [place] [address] Care Team Providers Care Clinical Applications Specialist Name Role Phone Rachel Pagan MD Unavailable [phone] Pati Rucker BOMB SQUAD OFFICER Unavailable [phone] Sosa Gardner BOMB SQUAD OFFICER Unavailable [phone] Linda Elizabeth DO Unavailable Angie Murray RN Unavailable Unavailab Lizandro Islas NP Primary Care Provider [phone] Encounter Details Date Type Department Care Team (Late st Contact Info) Description 08/27/2025 Orders Only [facility] ONCOLOGY PRACTICE [address], 10th [place] [address] Meri Pérez Myoclonus Social History Tobacco Use Types Packs/Day Years [...] often do you attend chur ch or protestant services? More than 4 times per year [...] in a fdc (including now)? No 11/11/2022 [facility] - Personal Safety Answer Date Recor ded [...] things needed for daily living? No 06/23/2025 [facility] Utilities Answer Date Recorded In the past [...] PRACTICE [address], 10th [place] [address] Rachel Pagan MD [address] [place] [address] 10/10/2025 10:30 AM EST Appointment [facility] MEDICAL ONCOLOGY [address], 11th [place] [address] 11/02/2025 9:30 AM EST Office Visit [facility] CARDIOLOGY PRACTICE [address], 1st [place] [address] Ky Jewell MD [address] [facility] [place] [address] 11/05/2025 2:45 PM EST Office Visit [facility] NEUROLOGY PRACTICE [address], 8th [place] [address] Ruddy Mayes MD [address] [place] [address] Road [facility] [place] [address] 12/31/2025 11:30 AM EST Office Visit [facility] NEPHROLOGY PRACTICE [address] [place] [address] 01/22/2026 9:00 AM EDT Office Visit [facility] CARDIOLOGY PRACTICE [address] 1st [place] [address] Allyn Toribio NP [address] [place], [place] [id number] documented as of this encounter Goals Goal Patient Goal Type Associated Problems Recent Progress Patient-Stated? Author Patient's support system will participate in treatment General Emily Ny documented as of this encounter Visit Diagnoses Diagnosis Myoclonus documented in this encounter Additional Health Concerns Assessment Noted Time PHQ-9 Depression Total Score: 0 06/23/20 10:00 AM EDT documented as of this encounter Care Teams Clinical Applications Specialist Relationship Specialty Start Date End Date Lizandro Khan NP [address] [place] [address] PCP - General Family Medicine 07/23/25 Rachel Pagan MD [address] [place] [address] [place] [address] Consulting Physician Oncology 11/11/22 Pati Rucker APRN [address] [place] [address] [place] [address] Nurse Practitioner Oncology 12/21/22 Sosa Gardner APRN [address] [facility] [place] [address] Nurse Practitioner Oncology 06/24/23 Linda Elizabeth DO [address] [facility] [place] [address] Consulting Physician Oncology 03/01/25 08/28/25 Angie Murray RN [address] [place] [address] Nurse Navigator Oncology 06/26/25 documented as of this encounter
--- OUTSIDE RECORDS SUMMARY | 2025-09-30 11:37 | XMS_ITS | Encounter Summary ---
Author Organization [facility] nter Address [address] [place] [address] Care Team Providers Care Mechanical Manufacturing Engineer Name Role Phone Rachel Pagan MD Unavailable [phone] Yesy Acuna RN Unavailable [phone] WEIGHT CLERK Primary Care Provider [phone] Pati Rucker DISPLAY FABRICATION SUPERVISOR Unavailable [phone] Sosa Gardner DISPLAY FABRICATION SUPERVISOR Unavailable [phone] Italo Camejo WEIGHT CLERK Primary Care Provider [phone] Linda Elizabeth DO Unavailable Lizandro Khan WEIGHT CLERK Primary Care Provider [phone] Elsa Vazquez Unavailable Unavailable Angie Murray RN Unavailable Unavailab Lizandro Islas WEIGHT CLERK Primary Care Provider [phone] Encounter Details Date Type Department Care Team (Late st Contact Info) Description 01/22/2023 Orders Only [facility] [address], 10th [place] [address] Rachel Pagan MD [address] [place] [address] Non-small cell cancer of right [...] How often do you attend [facility] or jainism services? More than 4 times per year 11/11/2022 Do you belong to any clubs o r organizations such as sikhism groups, unions, fraternal or athletic groups, or [...] Description 10/04/2025 8:45 AM EST Office Visit [facility] ONCOLOGY PRACTICE [address], 10th [place] [address] Rachel Pagan MD [address] [place] [address] 10/10/2025 10:30 AM EST Appointment [facility] MED[facility]COL[facility] [address], 11th [place] [address] 11/02/2025 9:30 AM EST Office Visit [facility] CARDIOLOGY PRACTICE [address], 1st [place] [address] Ky Jewell MD [address] [place] [address] 11/05/2025 2:45 PM EST Office Visit [facility] NEUROLOGY PRACTICE [address], 8th [place] [facility] [place] [address] Ruddy Mayes MD [address] [facility] [place] [address] 12/31/2025 11:30 AM EST Office Visit [facility] NEPHROLOGY PRACTICE [address] [place] [phone] 01/22/2026 9:00 AM EDT Office Visit [facility] CARDIOLOGY PRACTICE [address], 1st [place] [address] Allyn Toribio NP [address] [place] [address] documented as of this encounter Results * (ABNORMAL) Comprehensive metabolic panel (01/25/2023 9:01 AM EDT) Sodium 144 133 - 144 mmol/L 01/25/2023 9:39 AM [facility] Potassium 3.8 3.6 - 5.2 mmol/L 01/25/2023 9:39 AM [facility] Chloride 114(H) 98 - 107 mmol/L 01/25/2023 9:39 AM [facility] CO2 27 21 - 32 mmol/L 01/25/2023 9:39 AM [facility] Anion Gap 3(L) 5 - 15 mmol/L 01/25/2023 9:39 AM [facility] BUN 15 7 - 18 mg/dL 01/25/2023 9:39 AM [facility] Creatinine 1.00 0.55 - 1.02 mg/dL 01/25/2023 9:39 AM [facility] BUN/Creatinine Ratio 15.00 10.00 - 20.00 ratio 01/25/2023 9:39 AM [facility] Glucose 170(H) 70 - 110 mg/dL 01/25/2023 9:39 AM [facility] Calcium 9.1 8.5 - 10.1 mg/dL 01/25/2023 9:39 AM [facility] AST 15 15 - 37 U/L 01/25/2023 9:39 AM [facility] ALT (SGPT) 32 13 - 56 U/L 01/25/2023 9:39 AM [facility] Alkaline Phosphatase 117 45 - 117 U/L 01/25/2023 9:39 AM [facility] Total Protein 6.9 6.4 - 8.4 g/dL 01/25/2023 9:39 AM [facility] Albumin 3.2(L) 3.4 - 5.0 g/dL 01/25/2023 9:39 AM [facility] Globulin, Total 3.7 2.4 - 4.8 g/dL 01/25/2023 9:39 AM [facility] A/G Ratio <1.0 0.6 - 1.6 01/25/2023 9:39 AM [facility] Total Bilirubin 0.2 0.0 - 1.0 mg/dL 01/25/2023 9:39 AM [facility] eGFR (CKD-EPI) 59.7(L) >60.0 - 200.0 mL/min/1.7 3m*2 01/25/2023 9:39 AM [facility] Blood Venous blood specimen / Unknown Existing Catheter / Unknown 01/25/2023 9:01 AM EDT 01/25/2023 9:06 AM EDT us Rachel Soriano MD LAB BLOOD ORDERABLES Final Result [facility] [address] [place] [address], * (ABNORMAL) CBC auto differential (01/25/2023 9:01 AM EDT) Auto WBC 6.0 3.0 - 11.3 10*3/uL LAB HEMATOLOGY METHOD 01/25/2023 9:22 AM [facility] RBC 4.35 3.45 - 5.40 10*6/uL LAB HEMATOLOGY METHOD 01/25/2023 9:22 AM [facility] Hemoglobin 13.5 10.0 - 16.0 g/dL LAB HEMATOLOGY METHOD 01/25/2023 9:22 AM [facility] Hematocrit 39.6 29.9 - 45.5 % LAB HEMATOLOGY METHOD 01/25/2023 9:22 AM [facility] MCV 91.0 78.2 - 101.8 fL LAB HEMATOLOGY METHOD 01/25/2023 9:22 AM [facility] MCH 31.1 26.4 - 33.3 pg LAB HEMATOLOGY METHOD 01/25/2023 9:22 AM [facility] MCHC 34.2 32.5 - 35.3 g/dL LAB HEMATOLOGY METHOD 01/25/2023 9:22 AM [facility] RDW 14.3 10.1 - 16.2 % LAB HEMATOLOGY METHOD 01/25/2023 9:22 AM [facility] MPV 8.0 6.4 - 10.4 fL LAB HEMATOLOGY METHOD 01/25/2023 9:22 AM [facility] Neutrophils % 51 43 - 83 % LAB HEMATOLOGY METHOD 01/25/2023 9:22 AM [facility] Lymphocytes % 37 10 - 42 % LAB HEMATOLOGY METHOD 01/25/2023 9:22 AM [facility] Monocytes % 7 1 - 14 % LAB HEMATOLOGY METHOD 01/25/2023 9:22 AM [facility] Eosinophils % 4 0 - 11 % LAB HEMATOLOGY METHOD 01/25/2023 9:22 AM [facility] Basophils % 1 0 - 2 % LAB HEMATOLOGY METHOD 01/25/2023 9:22 AM [facility] Neutrophils Absolute 3.00(L) 3.40 - 7.00 10*3/uL LAB HEMATOLOGY METHOD 01/25/2023 9:22 AM [facility] Lymphocytes Absolute 2.20 0.40 - 3.90 10*3/uL LAB HEMATOLOGY METHOD 01/25/2023 9:22 AM [facility] Monocytes Absolute 0.40 0.20 - 0.60 10*3/uL LAB HEMATOLOGY METHOD 01/25/2023 9:22 AM EDT [facility] Eosinophils Absolute 0.20 0.00 - 0.90 10*3/uL LAB HEMATOLOGY METHOD 01/25/2023 9:22 AM EDT [facility] Basophils Absolute 0.10 0.00 - 0.20 10*3/uL LAB HEMATOLOGY METHOD 01/25/2023 9:22 AM EDT [facility] Platelets 230 122 - 454 10*3/uL LAB HEMATOLOGY METHOD 01/25/2023 9:22 AM EDT [facility] Blood Venous blood specimen / Unknown Existing Catheter / Unknown 01/25/2023 9:01 AM EDT 01/25/2023 9:06 AM EDT us Rachel Soriano MD LAB BLOOD ORDERABLES Final Result [facility] [address] [place] [address], documented in this encounter Visit Diagnoses Diagnosis [...] as of this encounter Care Teams Mechanical Manufacturing Engineer Relationship Specialty Start Date End Date Viridiana Plaza NP [address] [place] [address] PCP - General Family Medicine 12/10/22 09/23/23 Italo Camejo NP [address] [place] [address], [address] [place] [address] PCP - General Family Medicine 09/24/23 03/19/25 Lizandro Khan NP [address] [place] [address] PCP - General Family Medicine 03/20/25 07/22/25 Lizandro Khan NP [address] [place] [address] PCP - General Family Medicine 07/23/25 Rachel Pagan MD [facility] [address] [facility] [place] [address] Consulting Physician Oncology 11/11/22 Yesy Acuna RN [address] [place] [address] Nurse Navigator 11/12/22 03/05/25 Pati Rucker APRN [address] [place] [address] Nurse Practitioner Oncology 12/21/22 Sosa Gardner APRN [address] [place] [address] Nurse Practitioner Oncology 06/24/23 Linda Elizabeth DO [address] [place] [address] Consulting Physician Oncology 03/01/25 08/28/25 Elsa Vazquez [address] [place] [address] Nurse Navigator Oncology 06/05/25 07/19/25 Angie Murray, ROLDAN [address] [place] [address] Nurse Navigator Oncology 06/26/25 documented as of this encounter
--- OUTSIDE RECORDS SUMMARY | 2025-09-30 11:37 | XMS_ITS | Encounter Summary ---
Author Organization [facility] nter Address [address] [place] [address] Care Team Providers Care Hassock Maker Name Role Phone Rachel Pagan MD Unavailable [phone] Pati Rucker MARINE SERVICE MANAGER Unavailable [phone] Sosa Gardner MARINE SERVICE MANAGER Unavailable [phone] Linda Elizabeth DO Unavailable Angie Murray RN Unavailable Unavailab Lizandro Islas NP Primary Care Provider [phone] Encounter Details Date Type Department Care Team (Latest Contact Info) Description 08/26/2025 Travel Social History Tobacco Use Types Packs/Day [...] often do you attend chur ch or zoroastrian services? More than 4 times per year 11/11/2022 Do you belong to any clubs o r organizations such as confucianist groups, unions, fraternal or athletic groups, or [...] in a chcf (including now)? No 11/11/2022 [facility] - Personal Safety Answer Date Recor ded How often does anyone, airam dainelle family and friends, physically hurt you? Never [...] things needed for daily living? No 06/23/2025 [facility] Utilities Answer Date Recorded In the [...] PRACTICE [address], 10th [place] [address] Rachel Pagan MD [address] [place] [address] 10/10/2025 10:30 AM EST Appointment [facility] [address], 11th [place] [address] 11/02/2025 9:30 AM EST Office Visit [facility] CARDIOLOGY PRACTICE [address], 1st Floor [facility] [place] [address] Ky Jewell MD [address] [facility] [place] [address] 11/05/2025 2:45 PM EST Office Visit [facility] NEUROLOGY PRACTICE [address], 8th [place] [address] Ruddy Mayes MD 1 [facility] [place] [phone] 12/31/2025 11:30 AM EST Office Visit [facility] NEPHROLOGY PRACTICE [address] [place], [place] [phone] 01/22/2026 9:00 AM EDT Office Visit [facility] CARDIOLOGY PRACTICE [address], 1st [place] [address] Allyn Toribio NP [address] [place] [id number] documented as of this encounter Goals Goal Patient Goal Type Associated Problems Recent Progress Patient-Stated? Author Patient's support system will participate in treatment General No Emily Dong documented as of this encounter Visit Diagnoses Not on filedocumented in this encounter Additional Health Concerns Assessment Noted Time PHQ-9 Depression Total Score: 0 06/23/20 10:00 AM EDT documented as of this encounter Care Teams Hassock Maker Relationship Specialty Start Date End Date Lizandro Khan NP [address] [place] [address] PCP - General Family Medicine 07/23/25 Rachel Pagan MD [address] [place] [address] Consulting Physician Oncology 11/11/22 Pati Rucker APRN [address] [place] [address] Nurse Practitioner Oncology 12/21/22 Sosa Gardner APRN [address] [facility] [place] [address] Nurse Practitioner Oncology 06/24/23 Linda Elizabeth DO [address] [facility] [place] [address] Consulting Physician Oncology 03/01/25 08/28/25 Angie Murray, ROLDAN [address] [place] [address] Nurse Navigator Oncology 06/26/25 documented as of this encounter
--- OUTSIDE RECORDS SUMMARY | 2025-09-30 11:38 | XMS_ITS | Encounter Summary ---
Author Organization [facility] nter Address [address] [place] [address] Care Team Providers Care Credit Assessment Analyst Name Role Phone Rachel Pagan MD Unavailable [phone] Pati Rucker TOY STUFFER Unavailable [phone] Sosa Gardner TOY STUFFER Unavailable Linda Elizabeth DO Unavailable Angie Murray RN Unavailable Unavailab Lizandro Islas NP Primary Care Provider [phone] Encounter Details Date Type Department Care Team (Latest Contact Info) Description 08/28/2025 Travel Social History Tobacco Use Types Packs/Day [...] often do you attend chur ch or evangelical services? More than 4 times per year 11/11/2022 Do you belong to any clubs o r organizations such as muslim groups, unions, fraternal or athletic groups, or [...] in a fdc (including now)? No 11/11/2022 [facility] - Personal Safety Answer Date [...] things needed for daily living? No 06/23/2025 [facility] Utilities Answer Date Recorded [...] PRACTICE [address], 10th [place] [address] Rachel Pagan MD [address] [place] [address] 10/10/2025 10:30 AM EST Appointment [facility] [address], 11th [place] [address] 11/02/2025 9:30 AM EST Office Visit [facility] CARDIOLOGY PRACTICE [address], 1st Floor [facility] [place] [address] Ky Jewell MD [address] [facility] [place] [address] 11/05/2025 2:45 PM EST Office Visit [facility] NEUROLOGY PRACTICE [address], 8th [place] [address] Ruddy Mayes MD 1 [facility] [place] [phone] 12/31/2025 11:30 AM EST Office Visit [facility] NEPHROLOGY PRACTICE [address] [place], [place] [address] 01/22/2026 9:00 AM EDT Office Visit [facility] CARDIOLOGY PRACTICE [address], 1st [place] [address] Allyn Toribio NP [address] [place] [phone] documented as of this encounter Goals Goal Patient Goal Type Associated Problems Recent Progress Patient-Stated? Author Patient's support system will participate in treatment General No Emily Dong documented as of this encounter Visit Diagnoses Not on filedocumented in this encounter Additional Health Concerns Assessment Noted Time PHQ-9 Depression Total Score: 0 06/23/20 10:00 AM EDT documented as of this encounter Care Teams Credit Assessment Analyst Relationship Specialty Start Date End Date Lizandro Khan NP [address] [place] [address] PCP - General Family Medicine 07/23/25 Rachel Pagan MD [address] [place] [address] Consulting Physician Oncology 11/11/22 Pati Rucker APRN [address] [place] [address] Nurse Practitioner Oncology 12/21/22 Sosa Gardner APRN [address] [facility] [place] [address] Nurse Practitioner Oncology 06/24/23 Linda Elizabeth DO [address] [facility] [place] [address] Consulting Physician Oncology 03/01/25 08/28/25 Angie Murray, ROLDAN [address] [place] [address] Nurse Navigator Oncology 06/26/25 documented as of this encounter
--- OUTSIDE RECORDS SUMMARY | 2025-09-30 11:38 | XMS_ITS | Encounter Summary ---
Author Organization [facility] nter Address [address] [place] [address] Care Team Providers Care Mailing Machine Helper Name Role Phone Rachel Pagan MD Unavailable [phone] Pati Rucker ANALYTICS LEADER Unavailable [phone] Sosa Gardner ANALYTICS LEADER Unavailable [phone] Angie Murray RN Unavailable Unavailab Lizandro Islas NP Primary Care Provider [phone] Encounter Details Date Type Department Care Team (Latest Contact Info) Description 09/12/2025 Travel Social History Tobacco Use Types Packs/Day [...] often do you attend chur ch or druze services? More than 4 times per year 11/11/2022 Do you belong to any clubs o r organizations such as worship groups, unions, fraternal or athletic groups, or [...] a care home (including now)? No 11/11/2022 [facility] - Personal Safety Answer Date Recor [...] things needed for daily living? No 06/23/2025 [facility] Utilities Answer Date Recorded In the past 12 months has th e [employer], gas, oil, or water [employer] threatened to shut off services in [...] Description 10/04/2025 8:45 AM EST Office Visit [facility] ONCOLOGY PRACTICE [address], 10th [place] [address] Rachel Pagan MD [address] [place] [address] 10/10/2025 10:30 AM EST Appointment [facility] [address], 11th [place] [address] 11/02/2025 9:30 AM EST Office Visit [facility] CARDIOLOGY PRACTICE [address], 1st [place] [address] Ky Jewell MD [address] [place] [address] 11/05/2025 2:45 PM EST Office Visit [facility] NEUROLOGY PRACTICE [address], 8th [place] [address] Ruddy Mayes MD [address] [place] [address] [place] [phone] 12/31/2025 11:30 AM EST Office Visit [facility] NEPHROLOGY PRACTICE [address] [place] [address] 01/22/2026 9:00 AM EDT Office Visit [facility] CARDIOLOGY PRACTICE [address], 1st [place] [address] Allyn Toribio NP [address] [place], [place] [phone] documented as of this encounter Goals Goal Patient Goal Type Associated Problems Recent Progress Patient-Stated? Author Patient's support system will participate in treatment General Emily Ny documented as of this encounter Visit Diagnoses Not on filedocumented in this encounter Additional Health Concerns Assessment Noted Time PHQ-9 Depression Total Score: 0 06/23/20 10:00 AM EDT documented as of this encounter Care Teams Mailing Machine Helper Relationship Specialty Start Date End Date Lizandro Khan NP [address] [place] [address] PCP - General Family Medicine 07/23/25 Rachel Pagan MD [address] [place] [address] [place] [address] Consulting Physician Oncology 11/11/22 Pati Rucker APRN [address] [place] [address] [place] [address] Nurse Practitioner Oncology 12/21/22 Sosa Gardner APRN [address] [place] [address] Nurse Practitioner Oncology 06/24/23 Angie Murray RN [address] [place] [address] Nurse Navigator Oncology 06/26/25 documented as of this encounter
--- OUTSIDE RECORDS SUMMARY | 2025-09-30 11:38 | XMS_ITS | Encounter Summary ---
Author Organization [facility] nter Address [address] [place] [address] Care Team Providers Care Track Laying Machine Operator Name Role Phone Rachel Pagan MD Unavailable [phone] Yesy Acuna RN Unavailable [phone] SOLVENT PLANT TREATER Primary Care Provider [phone] Pati Rucker COLLAR TAILOR Unavailable [phone] Sosa Gardner COLLAR TAILOR Unavailable [phone] Italo Camejo SOLVENT PLANT TREATER Primary Care Provider [phone] Linda Elizabeth DO Unavailable Lizandro Khan SOLVENT PLANT TREATER Primary Care Provider [phone] Elsa Vazquez Unavailable Unavailable Angie Murray RN Unavailable Unavailab Lizandro Islas SOLVENT PLANT TREATER Primary Care Provider [phone] Encounter Details Date Type Department Care Team (Late st Contact Info) Description 01/25/2023 Orders Only [facility] [address], 10th [place] [address] Rachel Pagan MD [address] [place] [address] Non-small cell cancer of right [...] How often do you attend [facility] or yazdanism services? More than 4 times per year [...] Description 10/04/2025 8:45 AM EST Office Visit [facility] [address], 10th [place] [address] Rachel Pagan MD 1 [place] [address] 10/10/2025 10:30 AM EST Appointment [facility] [address], 11th [place] [address] 11/02/2025 9:30 AM EST Office Visit [facility] CARDIOLOGY [facility]ACT[facility] [address], 1st [place] [address] Ky Jewell MD [address] [place] [address] 11/05/2025 2:45 PM EST Office Visit [facility] NEUR[facility] [address], 8th Floor [facility] [place] [facility] [place] [address] Ruddy Mayes MD [address] [facility] [place] [address] 12/31/2025 11:30 AM EST Office Visit [facility] NEPHR[facility]Y [facility] [address] [phone] 01/22/2026 9:00 AM EDT Office Visit [facility] [address], [address] [place] [address] Allyn Toribio NP [address] [place] [address] documented as of this encounter Results * (ABNORMAL) Comprehensive metabolic panel (02/01/2023 8:53 AM EDT) Sodium 141 133 - 144 mmol/L 02/01/2023 9:50 AM [facility] Potassium 3.8 3.6 - 5.2 mmol/L 02/01/2023 9:50 AM [facility] Comment:Specimen slightly he molyzed. Results may be falsely elevated. Chloride 113(H) 98 - 107 mmol/L 02/01/2023 9:50 AM [facility] CO2 24 21 - 32 mmol/L 02/01/2023 9:50 AM [facility] Anion Gap 4(L) 5 - 15 mmol/L 02/01/2023 9:50 AM [facility] BUN 17 7 - 18 mg/dL 02/01/2023 9:50 AM [facility] Creatinine 1.20(H) 0.55 - 1.02 mg/dL 02/01/2023 9:50 AM [facility] BUN/Creatinine Ratio 14.17 10.00 - 20.00 ratio 02/01/2023 9:50 AM [facility] Glucose 161(H) 70 - 110 mg/dL 02/01/2023 9:50 AM [facility] Calcium 9.2 8.5 - 10.1 mg/dL 02/01/2023 9:50 AM [facility] AST 15 15 - 37 U/L 02/01/2023 9:50 AM [facility] Comment:Specimen slightly he molyzed. Results may be falsely elevated. ALT (SGPT) 23 13 - 56 U/L 02/01/2023 9:50 AM [facility] Alkaline Phosphatase 129(H) 45 - 117 U/L 02/01/2023 9:50 AM [facility] Total Protein 6.7 6.4 - 8.4 g/dL 02/01/2023 9:50 AM [facility] Albumin 2.9(L) 3.4 - 5.0 g/dL 02/01/2023 9:50 AM [facility] Globulin, Total 3.8 2.4 - 4.8 g/dL 02/01/2023 9:50 AM [facility] A/G Ratio <1.0 0.6 - 1.6 02/01/2023 9:50 AM [facility] Total Bilirubin 0.3 0.0 - 1.0 mg/dL 02/01/2023 9:50 AM [facility] eGFR (CKD-EPI) 47.9(L) >60.0 - 200.0 mL/min/1.7 3m*2 02/01/2023 9:50 AM [facility] Blood Venous blood specimen / Unknown Existing Catheter / Unknown 02/01/2023 8:53 AM EDT 02/01/2023 9:01 AM EDT us Rachel Soriano MD LAB BLOOD ORDERABLES Final Result [facility] [address] [place] [address], * CBC auto differential (02/01/2023 8:53 AM EDT) Auto WBC 8.3 3.0 - 11.3 10*3/uL LAB HEMATOLOGY METHOD 02/01/2023 9:22 AM [facility] RBC 4.48 3.45 - 5.40 10*6/uL LAB HEMATOLOGY METHOD 02/01/2023 9:22 AM [facility] Hemoglobin 13.7 10.0 - 16.0 g/dL LAB HEMATOLOGY METHOD 02/01/2023 9:22 AM [facility] Hematocrit 40.7 29.9 - 45.5 % LAB HEMATOLOGY METHOD 02/01/2023 9:22 AM [facility] MCV 90.8 78.2 - 101.8 fL LAB HEMATOLOGY METHOD 02/01/2023 9:22 AM [facility] MCH 30.6 26.4 - 33.3 pg LAB HEMATOLOGY METHOD 02/01/2023 9:22 AM [facility] MCHC 33.7 32.5 - 35.3 g/dL LAB HEMATOLOGY METHOD 02/01/2023 9:22 AM [facility] RDW 14.1 10.1 - 16.2 % LAB HEMATOLOGY METHOD 02/01/2023 9:22 AM [facility] MPV 8.3 6.4 - 10.4 fL LAB HEMATOLOGY METHOD 02/01/2023 9:22 AM [facility] Neutrophils % 69 43 - 83 % LAB HEMATOLOGY METHOD 02/01/2023 9:22 AM [facility] Lymphocytes % 22 10 - 42 % LAB HEMATOLOGY METHOD 02/01/2023 9:22 AM [facility] Monocytes % 6 1 - 14 % LAB HEMATOLOGY METHOD 02/01/2023 9:22 AM [facility] Eosinophils % 3 0 - 11 % LAB HEMATOLOGY METHOD 02/01/2023 9:22 AM [facility] Basophils % 1 0 - 2 % LAB HEMATOLOGY METHOD 02/01/2023 9:22 AM [facility] Neutrophils Absolute 5.70 3.40 - 7.00 10*3/uL LAB HEMATOLOGY METHOD 02/01/2023 9:22 AM [facility] Lymphocytes Absolute 1.80 0.40 - 3.90 10*3/uL LAB HEMATOLOGY METHOD 02/01/2023 9:22 AM EDT [facility] Monocytes Absolute 0.50 0.20 - 0.60 10*3/uL LAB HEMATOLOGY METHOD 02/01/2023 9:22 AM EDT [facility] Eosinophils Absolute 0.20 0.00 - 0.90 10*3/uL LAB HEMATOLOGY METHOD 02/01/2023 9:22 AM EDT [facility] Basophils Absolute 0.10 0.00 - 0.20 10*3/uL LAB HEMATOLOGY METHOD 02/01/2023 9:22 AM EDT [facility] Platelets 276 122 - 454 10*3/uL LAB HEMATOLOGY METHOD 02/01/2023 9:22 AM EDT [facility] Blood Venous blood specimen / Unknown Existing Catheter / Unknown 02/01/2023 8:53 AM EDT 02/01/2023 9:01 AM EDT Rachel Soriano MD LAB BLOOD ORDERABLES Final Result Performing Organization Address City/State/[facility] Co de Phone Number [facility] [address] [place] [address], documented in this encounter Visit Diagnoses Diagnosis [...] documented as of this encounter Care Teams Track Laying Machine Operator Relationship Specialty Start Date End Date Viridiana Plaza NP [address] [place] [phone] PCP - General Family Medicine 12/10/22 09/23/23 Italo Camejo NP [address] [facility], [address] [place] [address] PCP - General Family Medicine 09/24/23 03/19/25 Lizandro Khan NP [address] [place] [address] PCP - General Family Medicine 03/20/25 07/22/25 Lizandro Khan NP [address] [place] [address] PCP - General Family Medicine 07/23/25 Rachel Pagan MD [address] [place] [phone] Consulting Physician Oncology 11/11/22 Yesy Acuna, RN [address] [place] [address] Nurse Navigator 11/12/22 03/05/25 Pati Rucker APRN [address] [place] [address] Nurse Practitioner Oncology 12/21/22 Sosa Gardner APRN [address] [place] [address] Nurse Practitioner Oncology 06/24/23 Linda Elizabeth DO [address] [place] [address] Consulting Physician Oncology 03/01/25 08/28/25 Elsa Vazquez [address] [place] [address] Nurse Navigator Oncology 06/05/25 07/19/25 Angie Murray, ROLDAN [address] [place] [address] Nurse Navigator Oncology 06/26/25 documented as of this encounter
--- OUTSIDE RECORDS SUMMARY | 2025-09-30 11:39 | XMS_ITS | Encounter Summary ---
Author Organization [facility] nter Address [address] [place] [address] Care Team Providers Care Customer Service Attendant Name Role Phone Rachel Pagan MD Unavailable [phone] Pati Rucker CYTOLOGY TEACHER Unavailable [phone] Sosa Gardner CYTOLOGY TEACHER Unavailable [phone] Angie Murray RN Unavailable Unavailab Lizandro sIlas NP Primary Care Provider Encounter Details Date Type Department Care Team (Late st Contact Info) Description 09/03/2025 Telephone [facility]ED[facility]ODIATRY PRACT[facility] [address], 6th [place] [address] Yazan Castro DPM [address] [place] [address] Social History Tobacco Use Types [...] often do you attend chur ch or alevism services? More than 4 times [...] in a fci (including now)? No 11/11/2022 [facility] - Personal Safety Answer Date Recor ded [...] things needed for daily living? No 06/23/2025 [facility] Utilities Answer [...] encounter Miscellaneous Notes * Telephone Encounter - Rosina Moreno LPN - 09/03/2025 2:29 PM EDT Called and informed daughter or recommendations * Telephone Encounter - Babs Spencer - 09/03/2025 12:32 PM EDT Daughter called stating patient is having pain in right great toe, states no drainage or sign of infection, states has upcoming appt on 09/12/25, wants to know if any kind of pain med or cream can beprescribed to help with the pain? Uses [facility] in [place], [place]. Callback# [phone] thanks documented in this encounter Plan of Treatment Upcoming Encounters Date Type Department Care Team (Late st Contact Info) Description 10/04/2025 8:45 AM EST Office Visit [facility] [address], 10th [place] [address] Rachel Pagan MD [address] [phone] 10/10/2025 10:30 AM EST Appointment [facility] [address], [address] [place] [phone] 11/02/2025 9:30 AM EST Office Visit [facility]ARDI[facility] [address], [address]st [place] [phone] Ky Jewell MD [address] [place] [phone] 11/05/2025 2:45 PM EST Office Visit [facility] NEUR[facility] [address]th [place] [address] Ruddy Mayes MD [address] [place] [address] 12/31/2025 11:30 AM EST Office Visit [facility] [address] [phone] 01/22/2026 9:00 AM EDT Office Visit [facility] [address], [address] [place] [phone] Allyn Toribio NP [address] [place] [address] documented as of this encounter Goals Goal Patient Goal Type Associated Problems Recent Progress Patient-Stated? Author Patient's support system will participate in treatment General No Emily Dong documented as of this encounter Visit Diagnoses Not on filedocumented in this encounter Additional Health Concerns Assessment Noted Time PHQ-9 Depression Total Score: 0 06/23/20 10:00 AM EDT documented as of this encounter Care Teams Customer Service Attendant Relationship Specialty Start Date End Date Lizandro Khan NP [address] [place] [address] PCP - General Family Medicine 07/23/25 Rachel Pagan MD [address] [place] [address] Consulting Physician Oncology 11/11/22 Pati Rucker APRN [facility] [place] [address] Nurse Practitioner Oncology 12/21/22 Sosa Gardner APRN [facility] [place] [address] Nurse Practitioner Oncology 06/24/23 Angie Murray RN [address] [place] [address] Nurse Navigator Oncology 06/26/25 documented as of this encounter
--- OUTSIDE RECORDS SUMMARY | 2025-09-30 11:39 | XMS_ITS | Encounter Summary ---
Author Organization [facility] nter Address [address] [place] [address] Care Team Providers Care Strip Cutting Machine Operator Name Role Phone Rachel Pagan MD Unavailable [phone] Pati Rucker SLITTER AND CUTTER OPERATOR Unavailable [phone] Sosa Gardner SLITTER AND CUTTER OPERATOR Unavailable [phone] Linda Elizabeth DO Unavailable Angie Murray RN Unavailable Unavailab Lizandro Islas NP Primary Care Provider [phone] Encounter Details Date Type Department Care Team (Latest Contact Info) Description 08/06/2025 Travel Social History Tobacco Use Types Packs/Day [...] often do you attend chur ch or catholic services? More than 4 times [...] in a usp (including now)? No 11/11/2022 [facility] - Personal Safety Answer Date Recor [...] things needed for daily living? No 06/23/2025 [facility] Utilities Answer Date Recorded In the [...] PRACTICE [address], 10th [place] [address] Rachel Pagan MD [address] [place] [address] 10/10/2025 10:30 AM EST Appointment [facility] [address], 11th [place] [address] 11/02/2025 9:30 AM EST Office Visit [facility]ACT[facility] [address], 1st Floor [facility] [place] [address] Ky Jewell MD [address] [facility] [place] [address] 11/05/2025 2:45 PM EST Office Visit [facility] NEUR[facility]ACT[facility] [address], 8th [place] [address] Ruddy Mayes MD 1 [facility] [place] [phone] 12/31/2025 11:30 AM EST Office Visit [facility] [address] [place], [place] [phone] 01/22/2026 9:00 AM EDT Office Visit [facility] [address], 1st [place] [address] Allyn Toribio NP [address] [phone] documented as of this encounter Goals Goal Patient Goal Type Associated Problems Recent Progress Patient-Stated? Author Patient's support system will participate in treatment General No Emily Dong documented as of this encounter Visit Diagnoses Not on filedocumented in this encounter Additional Health Concerns Assessment Noted Time PHQ-9 Depression Total Score: 0 06/23/20 10:00 AM EDT documented as of this encounter Care Teams Strip Cutting Machine Operator Relationship Specialty Start Date End Date Lizandro Khan NP [address] [place] [address] PCP - General Family Medicine 07/23/25 Rachel Pagan MD [address] [place] [address] Consulting Physician Oncology 11/11/22 Pati Rucker APRN [address] [place] [address] Nurse Practitioner Oncology 12/21/22 Sosa Gardner APRN [address] [facility] [place] [address] Nurse Practitioner Oncology 06/24/23 Linda Elizabeth DO [address] [facility] [place] [address] Consulting Physician Oncology 03/01/25 08/28/25 Angie Murray, ROLDAN [address] [place] [address] Nurse Navigator Oncology 06/26/25 documented as of this encounter
--- OUTSIDE RECORDS SUMMARY | 2025-09-30 11:39 | XMS_ITS | Encounter Summary ---
Author Organization [facility] nter Address [address] [place] [address] Care Team Providers Care Geomorphology Teacher Name Role Phone Rachel Pagan MD Unavailable Pati Rucker UTILITY SPECIALIST Unavailable Sosa Gardner UTILITY SPECIALIST Unavailable [phone] Linda Elizabeth DO Unavailable Lizandro Khan SEWING DEMONSTRATOR Primary Care Provider [phone] Elsa Vazquez Unavailable Unavailable Angie Murray RN Unavailable Unavailab Lizandro Islas SEWING DEMONSTRATOR Primary Care Provider [phone] Encounter Details Date Type Department Care Team (Late st Contact Info) Description 06/25/2025 Orders Only [facility] MEDICAL ONCOLOGY [address], 11th [place] [address] Rachel Pagan MD [address] [place] [address] Social History Tobacco Use Types [...] week 11/11/2022 How often do you attend [facility] or sabianist services? More than 4 times per year 11/11/2022 Do you belong to any clubs o r organizations such as samaritan groups, unions, fraternal or athletic groups, or [...] in a alf (including now)? No 11/11/2022 [facility] - Personal Safety Answer Date [...] needed for daily living? No 06/23/2025 [facility] Utilities Answer Date Recorded In the past 12 months has th e electric, gas, oil, or water [employer] threatened to shut off services in your [...] PRACTICE [address], 10th [place] [address] Rachel Pagan MD [address] [place] [address] 10/10/2025 10:30 AM EST Appointment [facility] MEDICAL ONCOLOGY [address], 11th [place] [address] 11/02/2025 9:30 AM EST Office Visit [facility]ACT[facility] [address], 1st Floor [place] [phone] Ky Jewell MD [address] [place], [place] [phone] 11/05/2025 2:45 PM EST Office Visit [facility] NEUR[facility]ACT[facility] [address], 8th [place] [address] Ruddy Mayes MD [address] [place] [address] 12/31/2025 11:30 AM EST Office Visit [facility]ACT[facility] [address] [phone] 01/22/2026 9:00 AM EDT Office Visit [facility] [address], [address] [place] [phone] Allyn Toribio NP [address] [place], [place] [phone] documented as of this encounter Goals Goal Patient Goal Type Associated Problems Recent Progress Patient-Stated? Author Patient's support system will participate in treatment General Emily Ny documented as of this encounter Visit Diagnoses Not on filedocumented in this encounter Additional Health Concerns Assessment Noted Time PHQ-9 Depression Total Score: 0 06/23/20 10:00 AM EDT documented as of this encounter Care Teams Geomorphology Teacher Relationship Specialty Start Date End Date Lizandro Khan NP [address] [place] [address] PCP - General Family Medicine 03/20/25 07/22/25 Lizandro Khan NP [address] [facility] [place] [address] PCP - General Family Medicine 07/23/25 Rachel Pagan MD [address] [place], [place] [address] Consulting Physician Oncology 11/11/22 Pati Rucker APRN [address] [place], [place] [address] Nurse Practitioner Oncology 12/21/22 Sosa Gardner APRN [address] [place] [address] Nurse Practitioner Oncology 06/24/23 Linda Elizabeth DO [address] [place], [place] [address] Consulting Physician Oncology 03/01/25 08/28/25 Elsa Vazquez [address] [place] [address] Nurse Navigator Oncology 06/05/25 07/19/25 Angie Murray, ROLDAN [address] [place], [place] [address] Nurse Navigator Oncology 06/26/25 documented as of this encounter
--- OUTSIDE RECORDS SUMMARY | 2025-09-30 11:39 | XMS_ITS | Encounter Summary ---
Author Organization [facility] nter Address [address] [place] [address] Care Team Providers Care Flexible Nanny Name Role Phone Rachel Pagan MD Unavailable [phone] Pati Rucker SERVICE LIAISON REPRESENTATIVE Unavailable [phone] Sosa Gardner SERVICE LIAISON REPRESENTATIVE Unavailable [phone] Linda Elizabeth DO Unavailable Lizandro Khan AIRPLANE ELECTRICIAN Primary Care Provider [phone] Elsa Vazquez Unavailable Unavailable Angie Murray RN Unavailable Unavailab Lizandro Islas AIRPLANE ELECTRICIAN Primary Care Provider [phone] Encounter Details Date Type Department Care Team (Late st Contact Info) Description 06/28/2025 Patient Outreach [facility] [address], 10th [place] [address] Rachel Pagan MD [address] [place] [address] Social History Tobacco Use Types [...] [facility] or [facility] services? More than 4 times per year 11/11/2022 Do you belong to any clubs o r organizations such as bahai groups, unions, fraternal or athletic groups, or [...] a skilled nursing (including now)? No 11/11/2022 [facility] - Personal Safety Answer Date Recor [...] PRACTICE [address], 10th [place] [address] Rachel Pagan MD [address] [place] [address] 10/10/2025 10:30 AM EST Appointment [facility] [address], 11th [place] [address] 11/02/2025 9:30 AM EST Office Visit [facility] [address], 1st Floor [place] [phone] Ky Jewell MD [address] [place] [address] 11/05/2025 2:45 PM EST Office Visit [facility] [address], 8th [place] [address] Ruddy Mayes MD [address] [place] [address] 12/31/2025 11:30 AM EST Office Visit [facility] [address] [phone] 01/22/2026 9:00 AM EDT Office Visit [facility] [address], [address]st [place] [address] Allyn Toribio NP [address] [place], [place] [phone] documented as of this encounter Goals Goal Patient Goal Type Associated Problems Recent Progress Patient-Stated? Author Patient's support system will participate in treatment General Emily Ny documented as of this encounter Visit Diagnoses Not on filedocumented in this encounter Additional Health Concerns Assessment Noted Time PHQ-9 Depression Total Score: 0 06/23/20 10:00 AM EDT documented as of this encounter Care Teams Flexible Nanny Relationship Specialty Start Date End Date Lizandro Khan NP [address] [place] [address] PCP - General Family Medicine 03/20/25 07/22/25 Lizandro Khan NP [address] [facility] [place] [address] PCP - General Family Medicine 07/23/25 Rachel Pagan MD [address] [place] [phone] Consulting Physician Oncology 11/11/22 Pati Rucker APRN [address] [place], [place] [address] Nurse Practitioner Oncology 12/21/22 Sosa Gardner APRN [address] [place] [address] Nurse Practitioner Oncology 06/24/23 Linda Elizabeth DO [address] [place] [address] Consulting Physician Oncology 03/01/25 08/28/25 Elsa Vazquez [address] [place] [address] Nurse Navigator Oncology 06/05/25 07/19/25 Angie Murray, ROLDAN [address] [place], [place] [address] Nurse Navigator Oncology 06/26/25 documented as of this encounter
--- OUTSIDE RECORDS SUMMARY | 2025-09-30 11:39 | XMS_ITS | Encounter Summary ---
Author Organization [facility] nter Address [address] [place] [address] Care Team Providers Care Rn Rehab Name Role Phone Rachel Pagan MD Unavailable [phone] Pati Rucker BAR TENDER Unavailable [phone] Sosa Gardner BAR TENDER Unavailable [phone] Angie Murray RN Unavailable Unavailab Lizandro Islas NP Primary Care Provider [phone] Encounter Details Date Type Department Care Team (Latest Contact Info) Description 09/19/2025 Travel Social History Tobacco Use Types Packs/Day [...] often do you attend chur ch or jewish services? More than 4 times per year 11/11/2022 Do you belong to any clubs o r organizations such as evangelical groups, unions, fraternal or athletic groups, or [...] in a long-term (including now)? No 11/11/2022 [facility] - Personal Safety Answer Date [...] things needed for daily living? No 06/23/2025 [facility] Utilities Answer Date Recorded In the past 12 months has th e [employer], gas, oil, or water [employer] threatened to shut off services in your [...] Description 10/04/2025 8:45 AM EST Office Visit [facility] [address], 10th [place] [address] Rachel Pagan MD [address] [place] [address] 10/10/2025 10:30 AM EST Appointment [facility] [address], 11th [place] [address] 11/02/2025 9:30 AM EST Office Visit [facility] [address], 1st [place] [address] Ky Jewell MD [address] [place] [address] 11/05/2025 2:45 PM EST Office Visit [facility] [address], 8th [place] [address] Ruddy Mayes MD [address] [place] [address] [place] [id number] 12/31/2025 11:30 AM EST Office Visit [facility] [address] [place] [address] 01/22/2026 9:00 AM EDT Office Visit [facility] [address] 1st [place] [address] Allyn Toribio NP [address] [place], [place] [id number] documented as of this encounter Goals Goal Patient Goal Type Associated Problems Recent Progress Patient-Stated? Author Patient's support system will participate in treatment General Emily Ny documented as of this encounter Visit Diagnoses Not on filedocumented in this encounter Additional Health Concerns Assessment Noted Time PHQ-9 Depression Total Score: 0 06/23/20 10:00 AM EDT documented as of this encounter Care Teams Rn Rehab Relationship Specialty Start Date End Date Lizandro Khan NP [address] [place] [address] PCP - General Family Medicine 07/23/25 Rachel Pagan MD [address] [place] [address] [place] [address] Consulting Physician Oncology 11/11/22 Pati Rucker APRN [address] [place] [address] [place] [address] Nurse Practitioner Oncology 12/21/22 Sosa Gardner APRN [address] [place] [address] Nurse Practitioner Oncology 06/24/23 Angie Murray RN [address] [place] [address] Nurse Navigator Oncology 06/26/25 documented as of this encounter
--- OUTSIDE RECORDS SUMMARY | 2025-09-30 11:40 | XMS_ITS | Encounter Summary ---
Author Organization [facility] nter Address [address] [place] [address] Care Team Providers Care Asphalt Patcher Name Role Phone Rachel Pagan MD Unavailable [phone] Yesy Acuna RN Unavailable [phone] Pati Rucker MANAGER INVENTORY Unavailable [phone] Sosa Gardner MANAGER INVENTORY Unavailable [phone] Italo Camejo REHAB RN Primary Care Provider [phone] Linda Elizabeth DO Unavailable Lizandro Khan REHAB RN Primary Care Provider [phone] Elsa Vazquez Unavailable Unavailable Angie Murray RN Unavailable Unavailab Lizandro Islas REHAB RN Primary Care Provider [phone] Encounter Details Date Type Department Care Team (Late st Contact Info) Description 04/14/2024 Orders Only [facility] [address], 10th [place] [address] Rachel Pagan MD [address] [place] [place] [address] Non-small cell cancer of right [...] How often do you attend chur or faith services? More than 4 times per year 11/11/2022 Do you belong to any clubs o r organizations such as yarsani groups, unions, fraternal or athletic groups, or [...] in a chcf (including now)? No 11/11/2022 Comments No Sex [...] Description 10/04/2025 8:45 AM EST Office Visit [facility] [address], 10th [place] [address] Rachel Pagan MD [address] [place] [address] 10/10/2025 10:30 AM EST Appointment [facility] [address] 11th [place] [address] 11/02/2025 9:30 AM EST Office Visit [facility] [address], [address]st [place] [id number] Ky Jewell MD [address] [place] [address] 11/05/2025 2:45 PM EST Office Visit [facility] [address], 8th [place] [address] Ruddy Mayes MD [address] [place] [address] 12/31/2025 11:30 AM EST Office Visit [facility] [address] [place] [address] 01/22/2026 9:00 AM EDT Office Visit [facility] [address], 1st [place] [address] Allyn Toribio, GRAHAM [address] [place] [address] Scheduled Orders Name Type Priority Associated Diagnoses [...] documented as of this encounter Care Teams Asphalt Patcher Relationship Specialty Start Date End Date Italo Camejo NP [address] [facility], [address] [place] [address] PCP - General Family Medicine 09/24/23 03/19/25 Lizandro Khan NP [address] [place] [address] PCP - General Family Medicine 03/20/25 07/22/25 Lizandro Khan NP [address] [place] [address] PCP - General Family Medicine 07/23/25 Rachel Pagan MD [address] [place], [place] [address] Consulting Physician Oncology 11/11/22 Yesy Acuna, ROLDAN [address] [place] [address] Nurse Navigator 11/12/22 03/05/25 Pati Rucker APRN [address] [place] [address] Nurse Practitioner Oncology 12/21/22 Sosa Gardner APRN [address] [place] [address] Nurse Practitioner Oncology 06/24/23 Linda Elizabeth DO [address] [place] [address] Consulting Physician Oncology 03/01/25 08/28/25 Elsa Vazquez [address] [place] [address] Nurse Navigator Oncology 06/05/25 07/19/25 Angie Murray RN [address] [place] [address] Nurse Navigator Oncology 06/26/25 documented as of this encounter
--- OUTSIDE RECORDS SUMMARY | 2025-09-30 11:40 | XMS_ITS | Encounter Summary ---
Author Organization Healthcare Address [facility] [place] [place] [id number] Care Team Providers Care Health And Human Performance Professor Name Role Phone Italo Camejo VICKY Primary Care Provider [phone] Lizandro Khan APRN Primary Care Provider [phone] Encounter Details Date Type Department Care Team ([facility] st Contact Info) Description 07/12/2025 Results Follow-Up [facility] [address] [place] [address] Prabhjot Vee, PharmD [address] [place] [phone] Social History Tobacco Use Types Packs/Day Years [...] Gudino RN documented as of this encounter Miscellaneous Notes * Result Encounter Note - Prabhjot Vee, PharmD - 07/12/2025 11:33 AM EDT Patient was discharged with prescription for cefadroxil. Antibiotic was not prescribed may not adequately cover the organism resulted. Contacted patient to relay results and discuss therapy change. New prescription for sulfamethoxazole- trimethoprim called into patient's pharmacy of choice ([facility] - [place], [place]). Patient expressed understanding and all questions answered. documented in this encounter Plan of Treatment Upcoming Encounters Date Type Department Care Team (Late st Contact Info) Description 10/18/2025 9:30 AM EST [facility] Visit [facility] [address], [address]st [place] [address] Pepe Cabrera MD [address] [place] [address] documented as of this encounter Visit Diagnoses Not on filedocumented in this encounter Additional Health Concerns Assessment Noted Time A fall risk assessment has been complete d for the patient 03/29/2025 12:40 PM EDT A Body Mass Index follow-up plan has been documented for the patient 03/29/2025 1:49 PM EDT documented as of this encounter Care Teams Health And Human Performance Professor Relationship Specialty Start Date End Date Italo Camejo APRN [address] [place] [address] PCP - General 11/18/23 08/21/25 Lizandro Khan APRN [address] [place] [address] PCP - General 08/22/25 documented as of this encounter
--- OUTSIDE RECORDS SUMMARY | 2025-09-30 11:40 | XMS_ITS | Encounter Summary ---
Author Organization [facility] nter Address [address] [place] [address] Care Team Providers Care Mud Cleaner Operator Name Role Phone Rachel Pagan MD Unavailable [phone] Pati Rucker HEEL PAINTER Unavailable [phone] Sosa Gardner HEEL PAINTER Unavailable [phone] Linda Elizabeth DO Unavailable Lizandro Khan GRADES 7 AND 8 TEACHER Primary Care Provider [phone] Elsa Vazquez Unavailable Unavailable Angie Murray RN Unavailable Unavailab Lizandro Islas GRADES 7 AND 8 TEACHER Primary Care Provider [phone] Reason for Referral * Consultation (Routine) - Authorized Specialty Diagnoses / Procedures Referred By Contac t Referred To Contact Podiatry Diagnoses Infected nailbed of toe, left Procedures MA OFFICE/OUTPATIENT NEW SF MDM 15 MINUTES MA OFFICE/OUTPATIENT NEW LOW MDM 30 MINUTES MA OFFICE/OUTPATIENT NEW MODERATE MDM 45 MINUTES MA OFFICE/OUTPATIENT NEW HIGH MDM 60 MINUTES MA OFFICE/OUTPATIENT ESTABLISHED SF MDM 10 MIN MA OFFICE/OUTPATIENT ESTABLISHED LOW MDM 20 MIN MA OFFICE/OUTPATIENT ESTABLISHED MOD MDM 30 MIN MA OFFICE/OUTPATIENT ESTABLISHED HIGH MDM 40 MIN Rachel Pagan MD [address] [facility] [place] [address] Phone: tel: fax: [facility] [address] 6th [place] [address] Phone: tel: fax: Referral ID Status Reason Start Date Expiration Date Visits Requested Visits Authorized [id number] Authorized Specialty Services Required 07/04/2025 07/04/2026 1 3 Encounter Details Date Type Department Care Team (Late st Contact Info) Description 07/04/2025 Orders Only [facility] [address] 10th [place] [address] Rachel Pagan MD [address] [place] [address] Infected nailbed of toe, left Social [...] often do you attend chur ch or mandaeism services? More than 4 times per year 11/11/2022 Do you belong to any clubs o r organizations such as alevism groups, unions, fraternal or athletic groups, or [...] in a mcc (including now)? No 11/11/2022 [facility] - Personal Safety Answer Date Recor ded How often does anyone, airam danielle family and friends, physically hurt you? Never 06/19/2025 How often does anyone, airam danielle family and friends, insult or talk down to you? Never 06/19/2025 How often does anyone, airam danielle family and friends, threaten you with harm? Never 06/19/2025 How often does anyone, inclu ding family and friends, scream or curse at [...] needed for daily living? No 06/23/2025 [facility] Utilities Answer Date Recorded In [...] 10/04/2025 8:45 AM EST Office Visit [facility] [address], 10th [place] [address] Rachel Pagan MD [address] [place] [address] 10/10/2025 10:30 AM EST Appointment [facility] [address] 11[address] [place] [id number] 11/02/2025 9:30 AM EST Office Visit [facility] [address] [place] [address] Ky Jewell MD [address] [place] [address] 11/05/2025 2:45 PM EST Office Visit [facility] [address] 8th [place] [address] Ruddy Mayes MD [address] [place] [address] 12/31/2025 11:30 AM EST Office Visit [facility] [address] [place], [place] [id number] 01/22/2026 9:00 AM EDT Office Visit [facility] [address], 1st [place] [address] Allyn Toribio NP [address] [place] [address] Scheduled Referrals Name Type Priority Associated Diagnoses [...] documented as of this encounter Care Teams Mud Cleaner Operator Relationship Specialty Start Date End Date Lizandro Khan NP [address] [place] [address] PCP - General Family Medicine 03/20/25 07/22/25 Lizandro Khan NP [address] [place] [address] PCP - General Family Medicine 07/23/25 Rachel Pagan MD [address] [place] [address] Consulting Physician Oncology 11/11/22 Pati Rucker APRN [address] [place] [address] Nurse Practitioner Oncology 12/21/22 Sosa Gardner APRN [address] [place] [address] Nurse Practitioner Oncology 06/24/23 Linda Elizabeth DO [address] [place] [address] Consulting Physician Oncology 03/01/25 08/28/25 Elsa Vazquez [address] [place] [address] Nurse Navigator Oncology 06/05/25 07/19/25 Angie Murray, ROLDAN [address] [place] [address] Nurse Navigator Oncology 06/26/25 documented as of this encounter
--- OUTSIDE RECORDS SUMMARY | 2025-09-30 11:40 | XMS_ITS | Clinical Summary ---
Author Organization [facility] Address [address] [place] [address] Care Team Providers Care Fish And Wildlife Warden Name Role Phone Lizandro Khan APRN Primary Care Provider [phone] Allergies Active Allergy Reactions Criticality Noted Date [...] with meals for 7 days. 14 tablet 11/22/19 25 Active Additional Information Patient not taking.Reported on 07/26/2025 furosemide (Lasix) 20 MG tablet Take 1 tablet (20 mg) by mouth 1 (one) time each day for 7 days. 7 tablet 11/22/19 Active Additional Information Patient not taking.Reported on 07/26/2025 lisinopril 10 MG tablet Take 1 tablet (10 mg) by mouth 1 (one) time each day for 7 days. 7 tablet 11/22/19 25 Active Additional Information Patient not taking.Reported [...] a day for 18 days. 108 tablet 11/22/19 Active Additional Information Patient not taking.Reported on 07/26/2025 levETIRAcetam (Keppra) 500 MG tablet Take 2 tablets (1,000 mg) by mouth 2 (two) times a day. 120 tablet 11/22/19 Active isosorbide dinitrate (Isordil) 30 MG tablet Take 1 tablet (30 mg) by mouth 2 (two) times a day for 7 days. 14 tablet 11/22/19 25 Active Additional Information Patient not taking.Reported on 07/26/2025 gabapentin (Neurontin) 400 MG capsule Take 2 capsules (800 mg) by mouth 2 (two) times a day. Take 1 capsule (400 mg) by mouth daily at lunch in addition to the 800 mg BID doses. 35 capsule 11/22/19 25 Active nicotine (Nicoderm CQ) 21 MG/24HR patch Place 1 patch on the skin 1 (one) time each day over 24 hours. 30 patch 11/23/19 Active Additional Information Patient not taking.Reported on 07/26/2025 albuterol (Proventil) (2.5 MG/3ML) 0.083% nebulizer solution inhale ONE vial (3ml) via nebulizer EVERY 6 HOURS NEEDED FOR 10 DAYS 11/28/19 25 Active isosorbide mononitrate 20 MG tablet Take 1 tablet (20 mg) by mouth twice a day. 07/06/20 24 Active Xarelto 2.5 MG tablet Take 1 tablet by mouth 2 times a day. 04/15/20 25 Active dexamethasone (Decadron) 4 MG tablet Take 2 tablets by mouth 2 times a day. 03/26/20 25 Active prochlorperazine (Compazine) 10 MG tablet take 1 tablet by mouth every 6 hours as needed for nausea or vomiting 03/13/20 Active pantoprazole (Protonix) 40 MG EC tablet Take 1 tablet by mouth daily. 02/27/20 25 Active ondansetron (Zofran) 8 MG tablet Take 1 tablet by mouth every 8 hours as needed for nausea or vomiting. 03/13/20 25 Active metFORMIN (Glucophage) 500 MG tablet Take 1 tablet by mouth daily with breakfast and dinner. 01/14/20 25 Active loratadine (Claritin) 10 MG tablet Take 1 tablet by mouth daily. 02/28/20 25 Active bumetanide (Bumex) 2 MG tablet Take 1 tablet by mouth twice a day. 01/19/20 25 Active valproic acid (Depakene) 250 MG/5ML oral liquid Take 5 mL by mouth 3 times a day. 06/22/20 Active potassium chloride ER (Micro-K) 10 MEQ ER capsule take 1 capsule by mouth twice daily with food 06/04/20 25 Active ondansetron ODT (Zofran-ODT) 8 MG disintegrating tablet DISSOLVE 1 TABLET ON TONGUE FOUR TIMES DAILY NEEDED FOR NAUSEA OR VOMITING 07/20/20 Active magnesium oxide (Mag-Ox) 400 (240 Mg) MG tablet Take 1 tablet by mouth. 07/18/20 Active ipratropium-albute rol (Duo-Neb) 0.5-2.5 mg/3 mL nebulizer solution 3 mL every 6 hours as needed. 06/22/20 Active ergocalciferol (Vitamin D-2) 50 MCG (2000 UT) capsule Take 1 capsule by mouth. Active empagliflozin (Jardiance) 10 MG Take 1 tablet by mouth 1 time each day. 06/22/20 Active atorvastatin (Lipitor) 80 MG tablet Take 1 tablet by mouth. 07/18/20 25 026 Active apixaban (Eliquis) 5 MG tablet Take 1 tablet by mouth twice a day. 07/20/20 25 Active acetaminophen (Tylenol) 500 MG tablet 1 tab every 4-6 hours PRN 08/22/20 25 Active Active Problems Problem Noted Date Diagnosed Date Fall 08/22/2025 Assessment & Plan (08/22/2025 8:39 AM EDT): Repeat head CT Laceration of left earlobe 08/22/2025 Assessment & Plan (08/22/2025 8:39 AM EDT): OMFS consult Leukocytosis 11/19/2024 Overview (11/22/2024): WBC is stable [...] in size. 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 Follows with radiation Oncology at [facility]. Molecular profiling showed MET exon [...] home meds Follow up with pulmonary at [facility] CAD (coronary artery disease) 11/17/2024 Overview (11/22/2024): Cath 04/2024 at [facility]: Nondominant right with a 70% [...] and greater Keep Mag 2.0 and greater MS (myocardial infarction) 11/17/2024 Overview (11/18/2024): HX of On warfarin for afib until April 2024--after MS--switched to Xarelto HTN (hypertension) 11/17/2024 Overview (11/22/2024): [...] Date Diagnosed Date Resolved Date Electrolyte abnormality 11/17/20240 06/2025 Overview (11/22/2024): Monitor with AM labs and PRN Replace per PCU electrolyte protocol Encounters Date Type Department Care Team Description 09/21/2025 9:30 AM EST [facility] Visit [facility] [address] [phone] Itz Capellan, KARRIE Facial laceration, subsequent encounter (Primary Dx) 09/21/2025 Travel 09/07/2025 3:00 PM EDT Office Visit [facility] [address] [phone] Mark Casarez, KRYSTAL Laceration of ear lobe, unspecified laterality, sequela [S01.319S] (Primary Dx) 09/07/2025 Travel 08/30/2025 2:30 PM EDT Office Visit [facility] [address] [phone] Itz Capellan, DMD Facial laceration, subsequent encounter (Primary Dx) 08/30/2025 Travel 08/23/2025 Telephone [facility] [address] [phone] Surgeon Porsche, 08/22/2025 4:48 AM EDT - 08/22/2025 1:26 PM EDT [facility] [address] [place] [phone] Sandro Terrazas MD Sweeney, Michael T, MD Laceration of ear lobe, unspecified laterality, subsequent encounter (Primary Dx) Discharge Disposition: Home or Self Care 08/22/2025 Travel 08/22/2025 Orders Only External Location [address] [place] [phone] Provider, External 08/22/2025 Orders Only External Location [address] [place] [phone] Provider, External 08/22/2025 Orders Only External Location [address] [place] [phone] Kal Wall MD 08/22/2025 Orders Only External Location [address] [place] [address] Kal Wall MD 07/26/2025 2:45 PM EDT [facility] [address] [place] [address] Pepe Cabrera MD Brain mass (Primary Dx) 07/26/2025 Travel 07/12/2025 Results [facility] [address] [place] [address] Prabhjot Vee, PharmD 07/09/2025 6:08 PM EDT - 07/10/2025 2:34 AM EDT Emergency [facility] [address] [place] [address] Kenan Luna MD Patel, Abhisek A, MD Altered mental status, unspecified altered mental status type (Primary Dx); UTI symptoms Discharge Disposition: Home or Self Care 07/09/2025 Travel from Last 3 Months Family History Medical [...] F) 09/21/2025 9:35 AM EST Respiratory Rate 31 08/22/2025 1:12 PM EDT Oxygen Saturation 95% 09/21/2025 9:35 AM EST Inhaled Oxygen Concentration - - Weight 57.6 kg (127 lb) 09/07/2025 2:21 PM EDT Height 147.3 cm (4' 10 ) 09/07/2025 2:21 PM EDT Body Mass Index 26.54 09/07/2025 2:21 PM EDT Plan of Treatment Upcoming Encounters Date Type Department Care Team (Late st Contact Info) Description 10/18/2025 9:30 AM EST Office Visit [place] [facility] [address] [place] [address] Pepe Cabrera MD [address] [place] [address] Health Maintenance Due Date Last Done Comments Dental Oral Exam 1958 Dental Prophylaxis 1958 Dental X-Ray: Bitewings 1958 Dental X-Ray: Full Mouth 1958 [facility]-Bone Density Scan 1958 [facility]-Depression Screening 1958 [...] series) 2018 [facility]-Breast Cancer Screening 05/11/2025 05/11/2023 [id number] Vaccine (4 - season) 2025 10/10/2021, 02/05/2021, 01/08/2021 [facility]-Influenza Vaccine (#1) 2025 07/17/2022, [facility]-Diabetes: Hemoglobin A1C 06/13/2026, 02/14/2025, 01/13/2025, Additional history exists [facility]-Hepatitis C Screening Completed 2024, 02/14/2025, 11/11/2022 [facility]-Obesity Intervention Completed 025, 09/07/2025, 08/30/2025, Additional history exists HPV Vaccines Aged Out [...] this topic Medical Devices Implanted Type Area Test Clerk Device Identifier Shelf Expiration Date Model / Serial / Lot Cover, Neuro [place] Lp 17mm - Sn/A - [id number] Implanted:Qty: 1 on 11/21/2024 by Pepe Cabrera MD at [facility] Plate Right: Cranial [id number] 11/21/2025 [id number] / N/A / Plate, 2 Hole Low Profile - Sn/A - [id number] Implanted:Qty: 2 on 11/21/2024 by Pepe Cabrera MD at [facility] Plate Right: [id number] 11/21/2025 421.502 / N/A / Screw Ti Matrixneuro Selfdrill 4mm - Sn/A - [id number] Implanted:Qty: 8 on 11/21/2024 by Pepe Cabrera MD at [facility] Screw Right: [id number] 11/21/2025 [id number] 4.01 / N/A / Graft Dura Repair 2x2 S[employer] - [id number] Implanted:Qty: 1 on 11/21/2024 by Pepe Cabrera MD at [facility] Right: [id number] 04/14/2027 [id number] 5.01S / / [id number] Procedures Procedure Name Priority Date/Time Associated Diagnosis Comments FOLLOW-UP EXAM (N/C) Routine 09/21/2025 9:30 AM EST Facial laceration, subsequent encounter FOLLOW-UP EXAM (N/C) Routine 08/30/2025 2:30 PM EDT Facial laceration, subsequent encounter OPIATES, LCMSMS, URINE STAT 10:29 AM EDT URINALYSIS MICROSCOPIC FOR UA REFLEX STAT 08/22/2025 10:29 AM EDT URINALYSIS WITH REFLEX MICROSCOPIC STAT 08/22/2025 10:29 AM EDT DRUG ABUSE SCREEN, URINE STAT 08/22/2025 10:29 AM EDT ANTI XA LEVEL LOW MOLECULAR WEIGHT HEPARIN Routine 08/22/2025 5:[address] HEAD WO IV CONTRAST STAT 5:15 AM EDT XR CHEST 1 VIEW STAT 08/22/2025 5:08 AM EDT TYPE AND SCREEN Timed 08/22/2025 5:02 AM EDT TEG GLOBAL HEMOSTASIS WITH LYSIS STAT 08/22/2025 5:02 AM EDT TEST QUALITATIVE PLASMA STAT 08/22/2025 5:02 AM EDT ETHYL ALCOHOL PLASMA STAT 08/22/2025 5:02 AM EDT APTT STAT 08/22/2025 5:02 AM EDT PROTHROMBIN TIME(PT) / INR STAT 08/22/2025 5:02 AM EDT CBC W/O DIFFERENTIAL STAT 08/22/2025 5:02 AM EDT COMPREHENSIVE METABOLIC PANEL, PLASMA STAT 08/22/2025 5:02 AM EDT TRAUMA SHOCK PANEL BLOOD GAS STAT 08/22/2025 5:02 AM EDT OXYGEN THERAPY STAT 08/22/2025 4:53 AM EDT OXYGEN THERAPY STAT 08/22/2025 4:[address] OUTSIDE IMAGES 08/22/2025 2:[address] OUTSIDE IMAGES 08/22/2025 2:2 1 AM EDT XR MSK OUTSIDE IMAGES 08/22/2025 2:12 AM EDT XR OUTSIDE IMAGES 08/22/2025 2:1 2 AM EDT ETHYL ALCOHOL PLASMA STAT 07/10/2025 12:20 AM [...] PANEL, PLASMA STAT 07/09/2025 6:33 PM EDT HEMOGLOBIN A1C Routine 11/17/2024 9:50 PM EST from Last 3 Months or Most Recently Relevant to Health Maintenance Results * Urinalysis Microscopic Examination (08/22/2025 10:29 AM EDT) Only the most recent of2 resultswithin the time period is included. Urine Urine specimen obtained by clean catch procedure / Unknown Non-blood Collection / Unknown 08/22/2025 10:29 AM EDT 08/22/2025 10:40 AM EDT us Ayesha Wolff MD LAB URINE ORDERABLES Millie cristina Result [facility] [address] [place] [address] * (ABNORMAL) Opiates Confirm Urine (08/22/2025 10:29 AM EDT) Codeine <50 <50 ng/mL 08/24/2025 3:25 PM EDT [facility] Codeine Glucuronide <50 <50 ng/mL 08/24/2025 3:25 PM EDT [facility] Desmethyl Tramadol <50 <50 ng/mL 08/24/2025 3:25 PM EDT [facility] EDDP - Methadone Metabolite <50 <50 ng/mL 08/24/2025 3:25 PM EDT [facility] Hydrocodone <50 <50 ng/mL 08/24/2025 3:25 PM EDT [facility] Hydromorphone <50 <50 ng/mL 08/24/2025 3:25 PM EDT [facility] Hydromorphone Glucuronide <50 <50 ng/mL 08/24/2025 3:25 PM EDT [facility] Comment:Metabolite of Hydrom orphone Meperidine <50 <50 ng/mL 08/24/2025 3:25 PM EDT [facility] Methadone <50 <50 ng/mL 08/24/2025 3:25 PM EDT [facility] 6 Monoacetyl morphine <10 <10 ng/mL 08/24/2025 3:25 PM EDT [facility] Morphine 245(H) <50 ng/mL 08/24/2025 3:25 PM EDT [facility] Morphine Glucuronide >1,000(H) <50 ng/mL 08/24/2025 3:25 PM EDT [facility] Comment:Metabolite of Morphi ne Naloxone <50 <50 ng/mL 08/24/2025 3:25 PM EDT [facility] Naloxone Glucuronide <50 <50 ng/mL 08/24/2025 3:25 PM EDT [facility] Comment:Metabolite of Naloxo ne Normeperidine <50 <50 ng/mL 08/24/2025 3:25 PM EDT [facility] Tramadol <50 <50 ng/mL 08/24/2025 3:25 PM EDT [facility] Urine Urine specimen obtained by clean catch procedure / Unknown Non-blood Collection / Unknown 08/22/2025 10:29 AM EDT 08/22/2025 10:40 AM EDT Narrative [facility] - 08/24/2025 3:25 PM EDT Drug analysis is confirmed by LC-MS/MS (LC Tandem Mass Spectrometry) on Urine specimens. This test was developed and its performance characteristics determined by [facility]. It has not been cleared or approved by the FDA. The laboratory is regulated under CLIA as qualified to perform high-complexity testing. This test is used for clinical purposes. Testing is performed at the [facility], Special Chemistry Laboratory. Ayesha Wolff MD LAB URINE ORDERABLES Millie cristina Result [facility] [address] [place] [address] * Drug Abuse Screen, Urine (08/22/2025 10:29 AM EDT) Amphetamine Screen Urine Negative Cutoff: 500 ng/mL 08/22/2025 11:05 AM EDT [facility] Benzodiazepines Screen Urine Negative Cutoff: 200 ng/mL 08/22/2025 11:05 AM EDT [facility] Cannabinoid Screen Urine Negative Cutoff: 50 ng/mL 08/22/2025 11:05 AM EDT [facility] Cocaine Screen Urine Negative Cutoff: 300 ng/mL 08/22/2025 11:05 AM EDT [facility] Barbiturate Screen Urine Negative Cutoff: 200 ng/mL 08/22/2025 11:05 AM EDT [facility] Opiate Screen Urine Presumptive positive. Confirmation by LC-MS/MS to follow. Cutoff: 300 ng/mL 08/22/2025 11:05 AM EDT [facility] Methadone Screen Urine Negative Cutoff: 300 ng/mL 08/22/2025 11:05 AM EDT [facility] Buprenorphine Screen Urine Negative Cutoff: 10 ng/mL 08/22/2025 11:05 AM EDT [facility] Fentanyl Screen Urine Negative Cutoff: 1 ng/mL 08/22/2025 11:05 AM EDT [facility] Oxycodone Screen Urine Negative Cutoff: 100 ng/mL 08/22/2025 11:05 AM EDT [facility] Urine Urine specimen obtained by clean catch procedure / Unknown Non-blood Collection / Unknown 08/22/2025 10:29 AM EDT 08/22/2025 10:40 AM EDT Ayesha Wolff MD LAB URINE ORDERABLES Millie cristina Result [facility] [address] [place] [address] * (ABNORMAL) Urinalysis with reflex microscopic (Culture NOT Included) (08/22/2025 10:29 AM EDT) Only the most recent of2 resultswithin the time period is included. Color, Urine Yellow LAB URINALYSIS - AUTOMATED METHOD 08/22/2025 11:21 AM EDT [facility] Clarity, Urine Clear LAB URINALYSIS - AUTOMATED METHOD 08/22/2025 11:21 AM EDT [facility] Spec [place], Urine 1.014 1.005 - 1.030 LAB URINALYSIS - AUTOMATED METHOD 08/22/2025 11:21 AM EDT [facility] pH, Urine 6.0 5.0 - 8.0 LAB URINALYSIS - AUTOMATED METHOD 08/22/2025 11:21 AM EDT [facility] Protein, Urine Negative Negative mg/dL LAB URINALYSIS - AUTOMATED METHOD 08/22/2025 11:21 AM EDT [facility] Glucose, Urine Negative Negative mg/dL LAB URINALYSIS - AUTOMATED METHOD 08/22/2025 11:21 AM EDT [facility] Ketones, Urine Negative Negative mg/dL LAB URINALYSIS - AUTOMATED METHOD 08/22/2025 11:21 AM EDT [facility] Blood, Urine Negative Negative LAB URINALYSIS - AUTOMATED METHOD 08/22/2025 11:21 AM EDT [facility] Bilirubin, Urine Negative Negative LAB URINALYSIS - AUTOMATED METHOD 08/22/2025 11:21 AM EDT [facility] Urobilinogen, Urine 0.2 0.2 to 1.0 mg/dL LAB URINALYSIS - AUTOMATED METHOD 08/22/2025 11:21 AM EDT [facility] Leukocytes, Urine Moderate(A) Negative LAB URINALYSIS - AUTOMATED METHOD 08/22/2025 11:21 AM EDT [facility] Nitrite, Urine Negative Negative LAB URINALYSIS - AUTOMATED METHOD 08/22/2025 11:21 AM EDT [facility] RBC, Urine <1 0 to 3 /HPF LAB URINALYSIS - AUTOMATED METHOD 08/22/2025 11:21 AM EDT [facility] Comment:This result was prev iously suppressed from the chart. WBC, Urine >50(A) 0 to 5 /HPF LAB URINALYSIS - AUTOMATED METHOD 08/22/2025 11:21 AM EDT [facility] Comment:This result was prev iously suppressed from the chart. Squamous Epithelial Cells 0 - 2 0 to 5 /HPF LAB URINALYSIS - AUTOMATED METHOD 08/22/2025 11:21 AM EDT [facility] Comment:This result was prev iously suppressed from the chart. Hyaline Casts 0 - 2 0 to 5 /LPF LAB URINALYSIS - AUTOMATED METHOD 08/22/2025 11:21 AM EDT [facility] Comment:This result was prev iously suppressed from the chart. Bacteria, Urine Present Negative LAB URINALYSIS - AUTOMATED METHOD 08/22/2025 11:21 AM EDT [facility] Comment:This result was prev iously suppressed from the chart. Urine Urine specimen obtained by clean catch procedure / Unknown Non-blood Collection / Unknown 08/22/2025 10:29 AM EDT 08/22/2025 10:40 AM EDT Ayesha Wolff MD LAB URINE ORDERABLES Millie cristina Result [facility] [address] [place] [address] * (ABNORMAL) Anti Xa Level Low Molecular Weight (08/22/2025 5:47 AM EDT) Anti Xa Level Low Molecular Weight Heparin >2.00(HH) <2.00 IU/mL 08/22/2025 6:12 AM EDT [facility] Blood Venous blood specimen / Unknown Venipuncture / Unknown 08/22/2025 5:47 AM EDT 08/22/2025 5:59 AM EDT Narrative [facility] - 08/22/2025 6:12 AM EDT Therapeutic Range: LMWH enoxaparin 1mg/kg/dose, 12hrs - peak (3-5 hours after dose): 0.5 - 1.0 IU/mL LMWH enoxaparin 1.5mg/kg/dose, 24hrs - peak (3-5 hours after dose): 1.0 - 2.0 IU/mL LMWH enoxaparin prophylaxis: Not established us Sandro Terrazas MD LAB BLOOD ORDERABLES Final Re sult [facility] [address] [place] [address] * CT Head wo IV Contrast (08/22/2025 5:15 AM EDT) Only the most recent of2 resultswithin the time period is included. Anatomical Region Laterality Modality Head Computed Tomogra [...] Dwayne Wright MD on 08/22/2025 5:52 AM Ayesha Wolff MD IMG CT PROCEDURES Final R esult * XR Chest 1 View (08/22/2025 5:08 AM EDT) Only the most recent of2 resultswithin the time period is included. Anatomical Region Laterality Modality Chest Digital Radiogra [...] IMG XR PROCEDURES Final R esult * (ABNORMAL) Trauma shock panel blood gas (08/22/2025 5:02 AM EDT) pH, Venous 7.39 7.32 - 7.43 LAB HEMATOLOGY METHOD 08/22/2025 5:07 AM EDT [facility] Bicarbonate, Calculated, Venous 30(H) 22 - 26 mmol/L LAB HEMATOLOGY METHOD 08/22/2025 5:07 AM EDT [facility] Base Excess, Venous 4.5(H) -2.0 - 3.0 mmol/L LAB HEMATOLOGY METHOD 08/22/2025 5:07 AM EDT [facility] Lactate, Venous, Whole Blood 1.6 0.5 - 2.2 mmol/L LAB HEMATOLOGY METHOD 08/22/2025 5:07 AM EDT [facility] Blood Venous blood specimen / Unknown Venipuncture / Unknown 08/22/2025 5:02 AM EDT 08/22/2025 5:06 AM EDT Ayesha Wolff MD LAB BLOOD ORDERABLES Millie l Result Performing Organization Address City/[facility] Co de Phone Number [facility] [address] [place] [address] * Ethyl Alcohol Plasma (08/22/2025 5:02 AM EDT) Only the most recent of2 resultswithin the time period is included. Ethanol Plasma <10 <10 mg/dL 08/22/2025 5:43 AM EDT [facility] Blood Venous blood specimen / Unknown Venipuncture / Unknown 08/22/2025 5:02 AM EDT 08/22/2025 5:15 AM EDT Narrative [facility] - 08/22/2025 5:43 AM EDT Enzymatic Assay: Performed on [employer]. Ayesha Wolff MD LAB BLOOD ORDERABLES Millie l Result Performing Organization Address City/[facility]/ZIP Co de Phone Number [facility] [address] [place] [address] * TEG Global Hemostasis with Lysis (08/22/2025 5:02 AM EDT) R, Lysis 8.6 4.6 - 9.1 min 08/22/2025 6:19 AM EDT [facility] MA, Rapid, Lysis 61.1 52.0 - 70.0 mm 08/22/2025 6:19 AM EDT [facility] MA, Fibrinogen, Lysis 29.8 15.0 - 32.0 mm 08/22/2025 6:19 AM EDT [facility] LY30 0.8 0.0 - 2.6 % 08/22/2025 6:19 AM EDT [facility] Blood Venous blood specimen / Unknown Venipuncture / Unknown 08/22/2025 5:02 AM EDT 08/22/2025 5:18 AM EDT Ayesha Wolff MD LAB BLOOD ORDERABLES Millie l Result Performing Organization Address [facility] Co de Phone Number [facility] [address] [place] [address] * APTT (PTT) (08/22/2025 5:02 AM EDT) Only the most recent of2 resultswithin the time period is included. aPTT 31 25 - 35 sec 08/22/2025 5:[address] [facility] Blood Venous blood specimen / Unknown Venipuncture / Unknown 08/22/2025 5:02 AM EDT 08/22/2025 5:05 AM EDT Ayesha Wolff MD LAB BLOOD ORDERABLES Millie l Result Performing Organization Address [facility] de Phone Number [facility] [address] [place] [address] * (ABNORMAL) PT-INR (08/22/2025 5:02 AM EDT) Only the most recent of2 resultswithin the time period is included. Prothrombin Time 19.2(H) 12.0 - 14.3 sec 08/22/2025 5:19 AM EDT [facility] INR 1.6(H) 0.9 - 1.1 08/22/2025 5:19 AM EDT [facility] Blood Venous blood specimen / Unknown Venipuncture / Unknown 08/22/2025 5:02 AM EDT 08/22/2025 5:05 AM EDT Narrative [facility] - 08/22/2025 5:19 AM EDT OPTIMAL INR RANGES FOR PATIENT ON ORAL ANTICOAGULANT THERAPY Prevention of venous thromboembolism INR 2.0 to 3.0 In patients with heart disease: Atrial fibrillation INR 2.0 to 3.0 Valvular heart disease INR 2.0 to 3.0 Tissue heart valves INR 2.0 to 3.0 Mechanical prosthetic valves INR 2.5 to 3.5 Prevention of recurrent MS INR 2.5 to 3.5 Ayesha Wolff MD LAB BLOOD ORDERABLES Millie cristina Result [facility] [address] [place] [address] * (ABNORMAL) CBC w/o diff (08/22/2025 5:02 AM EDT) Only the most recent of2 resultswithin the time period is included. WBC Count 2.43(L) 3.70 - 10.30 10*3/uL LAB HEMATOLOGY METHOD 08/22/2025 6:47 AM EDT [facility] RBC Count 2.09(L) 3.90 - 5.20 10*6/uL LAB HEMATOLOGY METHOD 08/22/2025 6:47 AM EDT [facility] HGB 7.6(L) 11.2 - 15.7 g/dL LAB HEMATOLOGY METHOD 08/22/2025 6:47 AM EDT [facility] HCT 23.3(L) 34.0 - 45.0 % LAB HEMATOLOGY METHOD 08/22/2025 6:47 AM EDT [facility] Platelet Count 57(L) 155 - 369 10*3/uL LAB HEMATOLOGY METHOD 08/22/2025 6:47 AM EDT [facility] MCV 112(H) 79 - 98 fL LAB HEMATOLOGY METHOD 08/22/2025 6:47 AM EDT [facility] LAB MCH 36.4(H) 26.0 - 32.0 pg LAB HEMATOLOGY METHOD 08/22/2025 6:47 AM EDT [facility] MCHC 32.6 30.7 - 35.5 g/dL LAB HEMATOLOGY METHOD 08/22/2025 6:47 AM EDT [facility] RDW 17.6(H) 11.5 - 14.5 % LAB HEMATOLOGY METHOD 08/22/2025 6:47 AM EDT [facility] MPV 10.2 8.8 - 12.5 fL LAB HEMATOLOGY METHOD 08/22/2025 6:47 AM EDT [facility] nRBC 0.0 <=0.0 per 100 WBCs LAB HEMATOLOGY METHOD 08/22/2025 6:47 AM EDT [facility] Blood Venous blood specimen / Unknown Venipuncture / Unknown 08/22/2025 5:02 AM EDT 08/22/2025 5:05 AM EDT Ayesha Wolff MD LAB BLOOD ORDERABLES Millie l Result Performing Organization Address City/[facility]/ZIP Co de Phone Number [facility] [address] [place] [address] * Type and Screen (08/22/2025 5:02 AM EDT) Only the most recent of2 resultswithin the time period is included. ABO/Rh O Positive 08/22/2025 5:07 AM EDT BLOOD BANK Antibody Screen Negative 08/22/2025 5:07 AM EDT BLOOD BANK Specimen Expiration 08/25/2025 23:59 08/22/2025 5:07 AM EDT BLOOD BANK Blood Venous blood specimen / Unknown Venipuncture / Unknown 08/22/2025 5:02 AM EDT 08/22/2025 5:07 AM EDT us Ayesha Wolff MD LAB BLOOD BANK TEST ORDER STACEY Final Result Performing Organization Address [facility] de Phone Number BLOOD BANK [address] [place] [address], * Test Qualitative Plasma (08/22/2025 5:02 AM EDT) Test Negative Negative 08/22/2025 5:46 AM EDT [facility] Blood Venous blood specimen / Unknown Venipuncture / Unknown 08/22/2025 5:02 AM EDT 08/22/2025 5:15 AM EDT Narrative [facility] - 08/22/2025 5:46 AM EDT Reference Range: Males and non- females: Negative. us Ayesha Wolff MD LAB BLOOD ORDERABLES Millie cristina Result [facility] [address] [place] [address] * (ABNORMAL) CMP (08/22/2025 5:02 AM EDT) Only the most recent of2 resultswithin the time period is included. Glucose, Plasma 89 74 - 99 mg/dL 08/22/2025 5:46 AM EDT [facility] BUN, Plasma 24(H) 8 - 23 mg/dL 08/22/2025 5:46 AM EDT [facility] Creatinine, Plasma 1.39(H) 0.60 - 1.10 mg/dL 08/22/2025 5:46 AM EDT [facility] BUN/Creatinine Ratio 17 08/22/2025 5:46 AM EDT [facility] Sodium, Plasma 139 136 - 145 mmol/L 08/22/2025 5:46 AM EDT [facility] Potassium, Plasma 4.3 3.6 - 4.9 mmol/L 08/22/2025 5:46 AM EDT [facility] Chloride, Plasma 104 97 - 107 mmol/L 08/22/2025 5:46 AM EDT [facility] CO2, Plasma 26 22 - 29 mmol/L 08/22/2025 5:46 AM EDT [facility] Anion Gap 9 6 - 16 mmol/L 08/22/2025 5:46 AM EDT [facility] Total Calcium, Plasma 8.4(L) 8.9 - 10.2 mg/dL 08/22/2025 5:46 AM EDT [facility] Total Protein 6.0(L) 6.3 - 7.9 g/dL 08/22/2025 5:46 AM EDT [facility] Albumin, Plasma 2.6(L) 3.5 - 5.2 g/dL 08/22/2025 5:46 AM EDT [facility] AST, Plasma 19 10 - 35 U/L 08/22/2025 5:46 AM EDT [facility] ALT, Plasma 9(L) 10 - 35 U/L 08/22/2025 5:46 AM EDT [facility] Alkaline Phosphatase, Plasma 73 46 - 142 U/L 08/22/2025 5:46 AM EDT [facility] Total Bilirubin, Plasma 0.4 0.2 - 1.1 mg/dL 08/22/2025 5:46 AM EDT [facility] eGFRcr 41.9 mL/min/1.7 3m*2 08/22/2025 5:46 AM EDT [facility] Comment:Reported eGFRcr in m L/min/1.73m2 is based the CKD-EPI 2020 equation that does not use a race coefficient. Blood Venous blood specimen / Unknown Venipuncture / Unknown 08/22/2025 5:02 AM EDT 08/22/2025 5:15 AM EDT Ayesha Wolff MD LAB BLOOD ORDERABLES Millie cristina Result [facility] [address] [place] [address] * CT OUTSIDE IMAGES (08/22/2025 2:23 AM EDT) Only the most recent of2 resultswithin the time period is included. Anatomical Region Laterality Modality Computed Tomogra phy 08/22/2025 2:23 AM EDT us Kal Wall MD IMG CT PROCEDURES Edited Resul t - Final * XR OUTSIDE IMAGES (08/22/2025 2:12 AM EDT) Anatomical Region Laterality Modality Radiographic Sarah ging 08/22/2025 2:12 AM EDT us External Provider IMG XR PROCEDURES Edited Resul t - Final * XR MSK OUTSIDE IMAGES (08/22/2025 2:12 AM EDT) Anatomical Region Laterality Modality Radiographic Sarah ging 08/22/2025 2:12 AM EDT us External Provider IMG XR PROCEDURES Edited Resul t - Final * SEND BETSY MESSAGE (07/10/2025 12:09 AM EDT) Urine Urine specimen obtained by clean catch procedure / Unknown Non-blood Collection / Unknown 07/10/2025 12:09 AM EDT 07/10/2025 12:24 AM EDT us Kenan Luna MD LAB URINE ORDERABLES Final Res ult Performing Organization Address [facility]/[place] [address] * Urine Whitman Panel (07/10/2025 12:09 AM EDT) Extra Sent for Culture 07/10/2025 2:[address] [facility] Urine Urine specimen obtained by clean catch procedure / Unknown Non-blood Collection / Unknown 07/10/2025 12:09 AM EDT 07/10/2025 12:24 AM EDT us Kenan Luna MD LAB URINE ORDERABLES Final Res ult Performing Organization Address [facility] de Phone Number [facility] [address] [place] [address] * (ABNORMAL) Urine Culture (07/10/2025 12:09 AM EDT) Culture >=100,000 CFU/mL Klebsiella pneumoniae(A) ELIUD 07/12/2025 12:01 PM EDT [facility] Comment:This isolate has bee n identified using the FDA Approved [employer] [place] System Urine Urine specimen obtained by [...] MICROBIOLOGY - GENERAL ORD ERABLES Final Result [facility] [address] [place] [address] * (ABNORMAL) Blood gas panel, venous (07/09/2025 9:25 PM EDT) pH, Venous 7.48(H) 7.32 - 7.43 LAB HEMATOLOGY METHOD 07/09/2025 10:00 PM EDT [facility] pCO2, Venous 47 37 - 52 mmHg LAB HEMATOLOGY METHOD 07/09/2025 10:00 PM EDT [facility] pO2, Venous 32 25 - 40 mmHg LAB HEMATOLOGY METHOD 07/09/2025 10:00 PM EDT [facility] SO2, Measured, Venous 54(L) 65 - 80 % LAB HEMATOLOGY METHOD 07/09/2025 10:00 PM EDT [facility] Base Excess, Venous 9.9(H) -2.0 - 3.0 mmol/L LAB HEMATOLOGY METHOD 07/09/2025 10:00 PM EDT [facility] Bicarbonate, Calculated, Venous 35(H) 22 - 26 mmol/L LAB HEMATOLOGY METHOD 07/09/2025 10:00 PM EDT [facility] Hematocrit, Whole Blood 36.4 34.0 - 45.0 % LAB HEMATOLOGY METHOD 07/09/2025 10:00 PM EDT [facility] Sodium, Whole Blood 139 136 - 145 mmol/L LAB HEMATOLOGY METHOD 07/09/2025 10:00 PM EDT [facility] Potassium, Whole Blood 3.0(L) 3.6 - 4.9 mmol/L LAB HEMATOLOGY METHOD 07/09/2025 10:00 PM EDT [facility] Chloride, Whole Blood 94(L) 97 - 107 mmol/L LAB HEMATOLOGY METHOD 07/09/2025 10:00 PM EDT [facility] Glucose, Whole Blood 82 74 - 99 mg/dL LAB HEMATOLOGY METHOD 07/09/2025 10:00 PM EDT [facility] Lactate, Venous, Whole Blood 2.6(H) 0.5 - 2.2 mmol/L LAB HEMATOLOGY METHOD 07/09/2025 10:00 PM EDT [facility] Ionized Calcium, Whole Blood 4.5(L) 4.6 - 5.1 mg/dL LAB HEMATOLOGY METHOD 07/09/2025 10:00 PM EDT [facility] Blood Venous blood specimen / Unknown Venipuncture / Unknown 07/09/2025 9:25 PM EDT 07/09/2025 9:59 PM EDT us Kenan Luna MD LAB BLOOD ORDERABLES Final Res ult [facility] [address] [place] [address] * ED HIV 1/2 Antibody/Antigen Screen w/Reflex to HIV 1/2 Differentiation (07/09/2025 6:33 PM EDT) HIV 1 & 2 Antibody/Antigen Screen Non Reactive Non Reactive 07/09/2025 8:13 PM EDT [facility] Comment:Screening for HIV 1 & 2 antibodies, and P24 antigen is NONREACTIVE. No confirmatory testing is required. Blood Venous blood specimen / Unknown Venipuncture / Unknown 07/09/2025 6:33 PM EDT 07/09/2025 6:57 PM EDT Steve Blood MD LAB BLOOD ORDERABLES Final Re sult Performing Organization Address [facility]/[place] [address] * (ABNORMAL) Lactic acid, venous (07/09/2025 6:33 PM EDT) [facility] Lactate, Venous, Whole Blood 5.0(H) 0.5 - 2.2 mmol/L LAB HEMATOLOGY METHOD 07/09/2025 7:14 PM EDT [facility] Blood Venous blood specimen / Unknown Venipuncture / Unknown 07/09/2025 6:33 PM EDT 07/09/2025 7:07 PM EDT Steve Blood MD LAB BLOOD ORDERABLES Final Re sult Performing Organization Address [facility]/ZIP Co de Phone Number [facility] [address] [place] [address] * (ABNORMAL) Creatine Kinase (CK), Total (07/09/2025 6:33 PM EDT) [facility] Creatine Kinase, Plasma 29(L) 37 - 168 U/L 07/10/2025 12:00 AM EDT [facility] Blood Venous blood specimen / Unknown Venipuncture / Unknown 07/09/2025 6:33 PM EDT 07/09/2025 6:39 PM EDT Kenan Luna MD LAB BLOOD ORDERABLES Final Res ult Performing Organization Address [facility] [place] [address] * Hepatitis C Antibody - ED (07/09/2025 6:33 PM EDT) [facility] Hepatitis C Antibody Negative Negative 07/09/2025 7:45 PM EDT [facility] Blood Venous blood specimen / Unknown Venipuncture / Unknown 07/09/2025 6:33 PM EDT 07/09/2025 6:57 PM EDT Steve Blood MD LAB BLOOD ORDERABLES Final Re sult Performing Organization Address City/[facility]/ZIP Co de Phone Number [facility] [address] [place] [address] * Phosphorus (07/09/2025 6:33 PM EDT) Phosphorus, Plasma 4.1 2.5 - 4.5 mg/dL 07/09/2025 7:08 PM EDT [facility] Blood Venous blood specimen / Unknown Venipuncture / Unknown 07/09/2025 6:33 PM EDT 07/09/2025 6:39 PM EDT Steve Blood MD LAB BLOOD ORDERABLES Final Re sult Performing Organization Address [facility]/ZIP Co de Phone Number [facility] [address] [place] [address] * (ABNORMAL) Magnesium (07/09/2025 6:33 PM EDT) Magnesium, Plasma 1.4(L) 1.9 - 2.4 mg/dL 07/09/2025 7:08 PM EDT [facility] Blood Venous blood specimen / Unknown Venipuncture / Unknown 07/09/2025 6:33 PM EDT 07/09/2025 6:39 PM EDT Steve Blood MD LAB BLOOD ORDERABLES Final Re sult Performing Organization Address [facility]/ZIP Co de Phone Number [facility] [address] [place] [address] * (ABNORMAL) Hemoglobin A1c (11/17/2024 9:50 PM EST) Hemoglobin A1c 5.8(H) <5.7 % 11/17/2024 10:31 PM EST [facility] Blood Venous blood specimen / Unknown Venipuncture / Unknown 11/17/2024 9:50 PM EST 11/17/2024 10:03 PM EST Narrative [facility] - 11/17/2024 10:31 PM EST HA1C Interpretive Data: Diagnosis of Diabetes: Diabetic > or = 6.5% Pre-diabetic 5.7 to 6.4% Non-diabetic < or = 5.6% Glycemic Targets for Type I and Type II Diabetics: Non- Adults <7.0% Adults <6.0% Children and Adolescents <7.5% Source: [place] [employer]. Standards of medical care in diabetes,2017. Diabetes Care.2017:40 (suppl 1):S1-S135. HbA1c assay performed by an ion-exchange chromatography method that is certified traceable to the DCCT. Mari Vanegas APRN, DNP LAB BLOOD ORDERABLES Fi nal Result [facility] [address] [place] [address] from Last 3 Months or Most Recently Relevant to Health Maintenance Insurance [employer] [place] Advance Directives * Full Code (Latest Code Status on File) Date Activated Date Inactivated Comments 11/17/2024 8:13 PM 11/22/2024 8:51 PM Question Answer Comments Patient has decision-making capacity? Yes Care Teams Fish And Wildlife Warden Relationship Specialty Start Date End Date Lizandro Khan APRN [address] [facility] [place] [address] PCP - General 08/22/25
--- OUTSIDE RECORDS SUMMARY | 2025-09-30 11:41 | XMS_ITS | Encounter Summary ---
Author Organization [facility] nter Address [address] [address] Care Team Providers Care Pattern Developer Name Role Phone Rachel Pagan MD Unavailable [phone] Pati Rucker GRANTS ASSISTANT Unavailable [phone] Sosa Gardner GRANTS ASSISTANT Unavailable [phone] Linda Elizabeth DO Unavailable Angie Murray RN Unavailable Unavailab Lizandro Islas NP Primary Care Provider [phone] Encounter Details Date Type Department Care Team [...] in a penitentiary (including now)? No 11/11/2022 [facility] - Personal Safety Answer Date Recor ded [...] for daily living? No 06/23/2025 [facility] Utilities Answer Date Recorded In the past [...] PRACTICE [address] [place] [address] Rachel Pagan MD [address] [place] [address] 10/10/2025 10:30 AM EST Appointment [facility] [address] [place] [address] 11/02/2025 9:30 AM EST Office Visit [facility] [address] 1st Floor [facility] [place] [address] Ky Jewell MD [address] [facility] [place] [address] 11/05/2025 2:45 PM EST Office Visit [facility] [address] 8[address] [place] [address] Ruddy Mayes MD [address] [facility] [place] [phone] 12/31/2025 11:30 AM EST Office Visit [facility] [address] [place], [place] [phone] 01/22/2026 9:00 AM EDT Office Visit [facility] [address] [place] [address] Allyn Toribio NP [address] [place] [phone] documented as of this encounter Goals Goal Patient Goal Type Associated Problems Recent Progress Patient-Stated? Author Patient's support system will participate in treatment General No Emily Dong documented as of this encounter Visit Diagnoses Not on filedocumented in this encounter Additional Health Concerns Assessment Noted Time PHQ-9 Depression Total Score: 0 06/23/20 10:00 AM EDT documented as of this encounter Care Teams Pattern Developer Relationship Specialty Start Date End Date Lizandro Khan NP [address] [place] [address] PCP - General Family Medicine 07/23/25 Rachel Pagan MD [address] [place] [address] Consulting Physician Oncology 11/11/22 Pati Rucker APRN [address] [place] [phone] Nurse Practitioner Oncology 12/21/22 Sosa Gardner APRN [address] [facility] [place] [address] Nurse Practitioner Oncology 06/24/23 Linda Elizabeth DO [address] [facility] [place] [address] Consulting Physician Oncology 03/01/25 08/28/25 Angie Murray, ROLDAN [address] [place] [address] Nurse Navigator Oncology 06/26/25 documented as of this encounter
--- OUTSIDE RECORDS SUMMARY | 2025-09-30 11:41 | XMS_ITS | Encounter Summary ---
Author Organization [facility] nter Address [address] [place] [address] Care Team Providers Care Manager Control Name Role Phone Rachel Pagan MD Unavailable [phone] Pati Rucker DELICATESSEN CLERK Unavailable [phone] Sosa Gardner DELICATESSEN CLERK Unavailable [phone] Linda Elizabeth DO Unavailable Angie Murray RN Unavailable Unavailab Lizandro Islas NP Primary Care Provider [phone] Encounter Details Date Type Department Care Team (Late st Contact Info) Description 08/10/2025 Telephone [facility] [address] 6th [place] [address] Yazan Castro DPM [address] [place] [address] Social History Tobacco Use Types [...] How often do you attend chur or sikh services? More than 4 times per year [...] in a chcf (including now)? No 11/11/2022 [facility] - Personal Safety Answer Date Recor [...] needed for daily living? No 06/23/2025 [facility] Utilities Answer Date Recorded In the [...] daughter has called and she is on Eliqu and she is scheduled for an appt on Wednesday to have a toenail removal Wednesday.daughter has held her Eliquis since Wednesday is that gonna be long enough? Please advise. Her number is [phone] documented in this encounter Plan of Treatment Upcoming Encounters Date Type Department Care Team (Late st Contact Info) Description 10/04/2025 8:45 AM EST Office Visit [facility] [address] [place] [address] Rachel Pagan MD [address] [place] [address] 10/10/2025 10:30 AM EST Appointment [facility] [address] [place] [address] 11/02/2025 9:30 AM EST Office Visit [facility] [address] [place] [phone] Ky Jewell MD [address] [place] [address] 11/05/2025 2:45 PM EST Office Visit [facility] [address] [place] [address] Ruddy Mayes MD [address] [place] [address] 12/31/2025 11:30 AM EST Office Visit [facility] [address] [place] [address] 01/22/2026 9:00 AM EDT Office Visit [facility] [address] [place] [phone] Allyn Toribio NP [address] [place] [phone] documented as of this encounter Goals Goal Patient Goal Type Associated Problems Recent Progress Patient-Stated? Author Patient's support system will participate in treatment General No Emily Dong documented as of this encounter Visit Diagnoses Not on filedocumented in this encounter Additional Health Concerns Assessment Noted Time PHQ-9 Depression Total Score: 0 06/23/20 10:00 AM EDT documented as of this encounter Care Teams Manager Control Relationship Specialty Start Date End Date Lizandro Khan NP [address] [place] [address] PCP - General Family Medicine 07/23/25 Rachel Pagan MD [address] [place] [address] Consulting Physician Oncology 11/11/22 Pati Rucker APRN [address] [place] [address] Nurse Practitioner Oncology 12/21/22 Sosa Gardner APRN [address] [place] [address] Nurse Practitioner Oncology 06/24/23 Linda Elizabeth DO [address] [place] [address] Consulting Physician Oncology 03/01/25 08/28/25 Angie Murray, ROLDAN [address] [place] [address] Nurse Navigator Oncology 06/26/25 documented as of this encounter
--- OUTSIDE RECORDS SUMMARY | 2025-09-30 11:41 | XMS_ITS | Clinical Summary ---
Author Organization [facility] nter Address [address] [place] [address] Care Team Providers Care Physical Education Professor Name Role Phone Rachel Pgaan MD Unavailable [phone] Pati Rucker BLOOD BANK COORDINATOR Unavailable [phone] Sosa Gardner BLOOD BANK COORDINATOR Unavailable [phone] Angie Murray RN Unavailable Unavailab Lizandro [...] the morning. 30 capsule 06/22/20 25 Active empagliflozin (Jardiance) 10 MG Take 1 tablet (10 mg) by mouth in the morning. 30 tablet 06/22/20 25 Active folic acid (Folvite) 1 MG tablet Take 1 tablet (1 mg) by mouth in the morning. 30 tablet 11 06/23/20 25 026 Active gabapentin (Neurontin) 800 MG tablet Take 0.5 tablets (400 mg) by mouth in the morning and at bedtime. Take morning of procedure 06/22/20 25 Active ipratropium-albute rol (Duo-Neb) 0.5-2.5 mg/3 mL nebulizer solution Take [...] 07/18/20 25 Active atorvastatin (Lipitor) 80 MG tabletIndications: Cerebrovascular Accident Take 1 tablet (80 mg) by mouth at bedtime. 90 tablet 3 07/18/20 25 026 Active magnesium oxide (Mag-Ox) tablet Take 1 tablet (400 mg) by mouth at bedtime. 90 tablet 3 07/18/20 25 026 Active bumetanide (Bumex) 2 MG tablet Take [...] DAILY NEEDED FOR NAUSEA OR VOMITING 07/20/20 25 Active loratadine (Claritin Reditabs) 10 MG disintegrating [...] 450 mL 1 08/06/20 25 025 Active doxycycline (Adoxa) 100 MG tablet Take 1 tablet (100 mg) by mouth in the morning and at bedtime for 10 days. Take with a full glass of water and do not lie down for at least 30 minutes after 20 tablet 08/26/20 25 025 Active Problems Problem Noted Date Diagnosed Date Stage IV squamous cell carcinoma of lung 025 Cancer Staging:Clinical:Stage IV(cTX, cNX, cM1) - Signed by Rachel Soriano MD on 06/05/2025 Overview (06/26/2025): Thrombocytopenia 03/31/2025 Overview (07/30/2025): Non-small cell lung cancer 11/25/2022 Cancer Staging:Clinical:Stage IV(cTX, cNX, cM1) - Signed by Rachel Soriano MD on 05/20/2023 Assessment & Plan (08/27/2025 10:23 AM EDT): 64 y/o smoker female patient [...] in size. Patient does not have any ALMOND PAN FINISHER symptoms. She was seen by radiation oncology. [...] -Will continue to coordinate with neurosurgery and [facility] regarding brain imaging/disease. -She will continue to follow-up with neurology for her stroke - Labs before each treatment -RTC 09/19/2025. Assessment & Plan (07/30/2025 11:30 AM EDT): [...] in size. Patient does not have any ALMOND PAN FINISHER symptoms. She was seen by radiation oncology. [...] -Will continue to coordinate with neurosurgery and [facility] regarding brain imaging/disease. -She will continue to [...] in size. Patient does not have any ALMOND PAN FINISHER symptoms. She was seen by radiation oncology. [...] planned to get another brain MRI rechecked May/June 2025. Patient admitted yet again following cycle [...] an eye -Will coordinate with neurosurgery and [facility] regarding brain imaging - Labs before each [...] in size. Patient does not have any ALMOND PAN FINISHER symptoms. She was seen by radiation oncology. [...] patient had a brain radiation here at [facility] 03/2025 since the gamma knife she received 12/2024 at the . I will coordinate with [facility] radiation oncology about the next brain [...] in size. Patient does not have any ALMOND PAN FINISHER symptoms. She was seen by radiation oncology. [...] in size. Patient does not have any ALMOND PAN FINISHER symptoms. She was seen by radiation oncology. [...] evidence of acute ischemic change. Spoke to watch repair person Oncologist, Dr. Elizabeth. She recommends to request [...] in size. Patient does not have any ALMOND PAN FINISHER symptoms. She was seen by radiation oncology. [...] evidence of acute ischemic change. Spoke to watch repair person Oncologist, Dr. Elizabeth. She recommends to request [...] in size. Patient does not have any ALMOND PAN FINISHER symptoms. She was seen by radiation oncology. [...] in size. Patient does not have any ALMOND PAN FINISHER symptoms. She was seen by radiation oncology. [...] -Will see the patient 01/05/2025 here at [facility] to discuss systemic treatment options as detailed above. -Will coordinate her care with neurosurgery team [...] in size. Patient does not have any ALMOND PAN FINISHER symptoms. She was seen by radiation oncology. [...] Will see the patient 12/28/2024 here at [facility] to discuss systemic treatment options as [...] in size. Patient does not have any ALMOND PAN FINISHER symptoms. She was seen by radiation oncology. [...] to get opinion about resection and consult [facility]. He has also discussed with [...] in size. Patient does not have any ALMOND PAN FINISHER symptoms. She was seen by radiation oncology. [...] in size. Patient does not have any ALMOND PAN FINISHER symptoms. She was seen by radiation oncology. [...] in size. Patient does not have any ALMOND PAN FINISHER symptoms. She was seen by radiation oncology. [...] in size. Patient does not have any ALMOND PAN FINISHER symptoms. She was seen by radiation oncology. [...] in size. Patient does not have any ALMOND PAN FINISHER symptoms. She was seen by radiation oncology. [...] in size. Patient does not have any ALMOND PAN FINISHER symptoms. She was seen by radiation oncology. [...] in size. Patient does not have any ALMOND PAN FINISHER symptoms. She was seen by radiation oncology. [...] in size. Patient does not have any ALMOND PAN FINISHER symptoms. She was seen by radiation oncology. [...] in size. Patient does not have any ALMOND PAN FINISHER symptoms. She was seen by radiation oncology. [...] in size. Patient does not have any ALMOND PAN FINISHER symptoms. She was seen by radiation oncology. [...] in size. Patient does not have any ALMOND PAN FINISHER symptoms. She was seen by radiation oncology. [...] in size. Patient does not have any ALMOND PAN FINISHER symptoms. She was seen by radiation oncology. [...] in size. Patient does not have any ALMOND PAN FINISHER symptoms. She was seen by radiation oncology. [...] in size. Patient does not have any ALMOND PAN FINISHER symptoms. She was seen by radiation oncology. [...] in size. Patient does not have any ALMOND PAN FINISHER symptoms. She was seen by radiation oncology. [...] in size. Patient does not have any ALMOND PAN FINISHER symptoms. She was seen by radiation oncology. [...] in size. Patient does not have any ALMOND PAN FINISHER symptoms. She was seen by radiation oncology. [...] in size. Patient does not have any ALMOND PAN FINISHER symptoms. She was seen by radiation oncology. [...] in size. Patient does not have any ALMOND PAN FINISHER symptoms. She was seen by radiation oncology. [...] in size. Patient does not have any ALMOND PAN FINISHER symptoms. She was seen by radiation oncology. [...] in size. Patient does not have any ALMOND PAN FINISHER symptoms. She was seen by radiation oncology. [...] in size. Patient does not have any ALMOND PAN FINISHER symptoms. She was seen by radiation oncology. [...] in size. Patient does not have any ALMOND PAN FINISHER symptoms. She was seen by radiation oncology. [...] in size. Patient does not have any ALMOND PAN FINISHER symptoms. She was seen by radiation oncology. [...] in size. Patient does not have any ALMOND PAN FINISHER symptoms. She was seen by radiation oncology. [...] in size. Patient does not have any ALMOND PAN FINISHER symptoms. She was seen by radiation oncology. [...] in size. Patient does not have any ALMOND PAN FINISHER symptoms. She was seen by radiation oncology. [...] in size. Patient does not have any ALMOND PAN FINISHER symptoms. She was seen by radiation oncology. [...] in size. Patient does not have any ALMOND PAN FINISHER symptoms. She was seen by radiation oncology. [...] in size. Patient does not have any ALMOND PAN FINISHER symptoms. She was seen by radiation oncology. [...] in size. Patient does not have any ALMOND PAN FINISHER symptoms. She was seen by radiation oncology. [...] in size. Patient does not have any ALMOND PAN FINISHER symptoms. She was seen by radiation oncology. [...] in size. Patient does not have any ALMOND PAN FINISHER symptoms. She was seen by radiation oncology. [...] in size. Patient does not have any ALMOND PAN FINISHER symptoms. She was seen by radiation oncology. [...] in size. Patient does not have any ALMOND PAN FINISHER symptoms. She was seen by radiation oncology. [...] in size. Patient does not have any ALMOND PAN FINISHER symptoms. She was seen by radiation oncology. [...] in size. Patient does not have any ALMOND PAN FINISHER symptoms. She was seen by radiation oncology. [...] in size. Patient does not have any ALMOND PAN FINISHER symptoms. She was seen by radiation oncology. [...] 10/26/2022 11/11/2022 Coronary artery disease invo lving chitina coronary artery of chitina heart without angina pectoris 04/03/2022 04/25/2025 Overview [...] Encounters Date Type Department Care Team Description 09/19/2025 9:14 AM EST - 09/19/2025 11:59 PM EST Hospital Encounter [facility] [address], [address] [place] [address] Non-small cell lung cancer, unspecified laterality (Primary Dx) Discharge Disposition: Still a Patient 09/19/2025 8:30 AM EST - 09/19/2025 9:13 AM EST Hospital Encounter [facility] [address], [address] [place] [phone] Non-small cell lung cancer, unspecified laterality Discharge Disposition: Home or Self Care 09/19/2025 Travel 09/12/2025 1:30 PM EDT Office Visit [facility] [address], [address] [place] [phone] Yazan Castro DPM Ingrown right big toenail (Primary Dx); Right foot pain 09/12/2025 8:46 AM EDT - 09/12/2025 11:59 PM EDT Hospital Encounter [facility] - GENERAL DIAGNOSTIC BLDG D [address], [place] [address] Right hip pain Discharge Disposition: Home or Self Care 09/12/2025 8:44 AM EDT - 09/12/2025 8:45 AM EDT Hospital Encounter [facility] MRI BLDG D [address], [place] [address] Non-small cell cancer of right lung Discharge Disposition: Home or Self Care 09/12/2025 Travel 09/03/2025 Telephone [facility] [address], [address] [place] [phone] Yazan Castro DPM 08/29/2025 9:54 AM EDT - 08/29/2025 11:59 PM EDT Hospital Encounter [facility] [address], [address] [place] [phone] Non-small cell lung cancer, unspecified laterality Discharge Disposition: Still a Patient 08/29/2025 9:30 AM EDT - 08/29/2025 9:53 AM EDT Hospital Encounter [facility] [address], [address] [place] [phone] Discharge Disposition: Home or Self Care 08/28/2025 1:00 PM EDT Office Visit [facility] [address], [address] [place], [place] [phone] Yazan Castro DPM Ingrown right big toenail (Primary Dx); Right foot pain 08/28/2025 Travel 08/27/2025 8:45 AM EDT Office Visit [facility] [address], [address] [place] [phone] Rachel Pagan MD Non-small cell lung cancer, unspecified laterality (Primary Dx) 08/27/2025 Orders Only [facility] [address], [address] [place], [place] [phone] Meri Pérez Myoclonus 08/26/2025 1:03 PM EDT - 08/26/2025 2:10 PM EDT Emergency [facility] [address], 1[address] Floor [place] [phone] George Wolff MD Nail abnormalities (Primary Dx) Discharge Disposition: Home or Self Care 08/26/2025 Travel 08/20/2025 Telephone [facility]ISHING [facility]PER[facility] [address], [address] [place], [place] [phone] Nuvia Johnson MD Glucophage 08/16/2025 Telephone [facility] [address], [address] [place] [phone] Bri Hogue Med Refill 08/15/2025 Abstract [facility] [address], [address] [place] [phone] Yazan Castro DPM 08/13/2025 2:45 PM EDT Office Visit [facility] [address], [address] [place] [phone] Yazan Castro DPM Ingrown right big toenail; Nail dystrophy; Right foot pain; Left foot pain 08/13/2025 Travel 08/10/2025 Telephone [facility] [address], [address] [place] [address] Yazan Castro DPM 08/08/2025 10:30 AM EDT - 08/08/2025 11:59 PM EDT Hospital Encounter [facility] [address], [address] [place] [address] Non-small cell lung cancer, unspecified laterality (Primary Dx) Discharge Disposition: Still a Patient 08/08/2025 8:15 AM EDT - 08/08/2025 10:29 AM EDT Hospital Encounter [facility] [address] [place] [address] Non-small cell lung cancer, unspecified laterality Discharge Disposition: Home or Self Care 08/08/2025 Travel 08/06/2025 2:30 PM EDT Office Visit [facility] [address], [address] [place] [address] Patience Wang NP Myoclonus (Primary Dx) 08/06/2025 9:38 AM EDT - 08/06/2025 11:59 PM EDT Hospital Encounter [facility] CT SCANNING BLDG D [address], [place] [address] Non-small cell cancer of right lung Discharge Disposition: Home or Self Care 08/06/2025 Travel 07/30/2025 10:00 AM EDT Office Visit [facility] [address], [address] [place] [address] Rachel Pagan MD Non-small cell cancer of right lung (Primary Dx); Thrombocytopenia 07/30/2025 9:38 AM EDT - 07/30/2025 11:59 PM EDT Hospital Encounter [facility] [address] [place] [phone] Non-small cell cancer of right lung; Stage IV squamous cell carcinoma of lung, unspecified laterality; Non-small cell lung cancer, unspecified laterality Discharge Disposition: Still a Patient 07/30/2025 Travel 07/23/2025 Travel 07/20/2025 11:30 AM EDT Office Visit [facility] [address], [address] Floor [facility] [place] [address] Ky Jewell MD Paroxysmal atrial fibrillation (Primary Dx) 07/20/2025 7:33 AM EDT - 07/20/2025 11:59 PM EDT Hospital Encounter [facility] PET SCANNING BL D [address], [facility] [place] [address] Non-small cell cancer of right lung Discharge Disposition: Home or Self Care 07/20/2025 7:33 AM EDT - 07/20/2025 11:59 PM EDT Hospital Encounter [facility] MRI BLDG D [address], [facility] [place] [address] Discharge Disposition: Home or Self Care 07/20/2025 Travel 07/18/2025 3:30 PM EDT Office Visit [facility] [address], [address] [place] [address] Allyn Toribio NP Coronary artery disease involving chitina coronary artery of chitina heart without angina pectoris (Primary Dx); Essential hypertension; 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 of [facility], ; Non-small cell cancer of right lung; Paroxysmal atrial fibrillation 07/18/2025 10:30 AM EDT - 07/18/2025 11:59 PM EDT Hospital Encounter [facility] [address], [address] [place] [address] Non-small cell lung cancer, unspecified laterality (Primary Dx) Discharge Disposition: Still a Patient 07/18/2025 10:13 AM EDT - 07/18/2025 10:29 AM EDT Hospital Encounter [facility] [address], [address] [place] [phone] Discharge Disposition: Still a Patient 07/18/2025 10:00 AM EDT - 07/18/2025 10:12 AM EDT Hospital Encounter [facility] [address], [address] [place] [address] Stage IV squamous cell carcinoma of lung, unspecified laterality Discharge Disposition: Still a Patient 07/18/2025 Travel 07/04/2025 Orders Only [facility] [address] [place] [address] Rachel Pagan MD Infected nailbed of toe, left 07/03/2025 Telephone [facility] [address] [place] [address] Rachel Pagan MD 07/02/2025 Patient Outreach [facility] [address] [place] [address] Rachel Pagan MD from Last 3 Months Immunizations Immunization Administration Dates Next Due Influenza, injectable, MDCK, preservative free, quadrivalent 07/17/2022,09/11/2021 Moderna SARS-CoV-2 Vaccination 10/10/2021,2020,01/08/2021 Family History Medical History Relation Name Comments Heart attack Brother Harrison Valentin No Known Problems Daughter Coronary artery disease [...] Known Problems Son Relation Name Status Comments Brother Harrison Valentin Daughter Father Harrison Father's Brother Father's Sister [...] often do you attend chur ch or mu-ism services? More than 4 times per year [...] a care home (including now)? No 11/11/2022 [facility] - Personal Safety Answer Date Recor ded How often does anyone, airam danielle family and friends, physically hurt you? Never 06/19/2025 How often does anyone, airam danielle family and friends, insult or talk down to you? Never 06/19/2025 How often does anyone, airam danielle family and friends, threaten you with harm? Never 06/19/2025 How often does anyone, airam dnaielle family and friends, scream or curse at [...] things needed for daily living? No 06/23/2025 [facility] Utilities Answer Date Recorded In the past [...] 18 09/19/2025 9:20 AM EST Oxygen Saturation 97% 08/27/2025 9:0 1 AM EDT 3 liters nasal canula Inhaled Oxygen Concentration - - Weight 57.3 kg (126 lb 6.4 oz) 09/19/2025 9:20 AM EST Height 147.3 cm (4' 10 ) 09/12/2025 1:0 5 PM EDT Body Mass Index 26.42 09/12/2025 1:05 PM EDT Plan of Treatment Upcoming Encounters Date Type Department Care Team (Late st Contact Info) Description 10/04/2025 8:45 AM EST Office Visit [facility] [address], 10[address] [place] [address] Rachel Pagan MD [address] [place] [address] 10/10/2025 10:30 AM EST Appointment [facility] [address], [address] [place] [address] 11/02/2025 9:30 AM EST Office Visit [facility] [address], [address] [place] [address] Ky Jewell MD [address] [place] [address] 11/05/2025 2:45 PM EST Office Visit [facility] [address], [address] [place] [address] Ruddy Mayes MD [address] [place] [address] 12/31/2025 11:30 AM EST Office Visit [facility] [address] [place], [place] [phone] 01/22/2026 9:00 AM EDT Office Visit [facility] [address], [address] [place] [address] Allyn Toribio NP [address] [place] [address] Health Maintenance Due Date Last Done Comments [...] 2025 , 09/11/2021, 10/03/2020 Diabetes: Hemoglobin A1C 09/13/20252 025, 02/14/2025, 01/13/2025, Additional history exists RSV under 20 month Aged Out No longer eligible based on patient's age to complete this topic Goals Goal Patient Goal Type Associated Problems Recent Progress Patient-Stated? Author Patient's support system will participate in treatment General [place] Medical Devices Implanted Type Area Barrow Worker Helper Device Identifier Shelf Expiration Date Model / Serial / Lot Filter Jugular/Subc lavian [id number] - [id number] - [id number] Implanted:Qt y: 1 on 03/31/2025 at [facility], [facility] IVC Filter Right: Abdomen BARD PERIPHERAL VASCULAR [id number] 03/14/2028 [id number] / [id number] / [id number] Procedures Procedure Name Priority Date/Time Associated Diagnosis Comments T4, FREE Routine 09/19/2025 9:06 AM EST Non-small cell lung cancer, unspecified laterality TSH Routine 09/19/2025 9:06 AM EST Non-small cell lung cancer, unspecified laterality COMPREHENSIVE METABOLIC PANEL Routine 09/19/2025 9:06 AM EST Non-small cell lung cancer, unspecified laterality CBC WITH AUTO DIFFERENTIAL Routine 09/19/2025 9:06 AM EST Non-small cell lung cancer, unspecified laterality XR HIP 2 OR 3 VIEWS RIGHT Routine 09/12/2025 9:55 AM EDT Right hip pain MR BRAIN W AND WO CONTRAST Routine 09/12/2025 9:45 AM EDT Non-small cell cancer of right lung T4, FREE Add-On 08/27/2025 8:32 AM EDT [...] EDT Non-small cell lung cancer, unspecified laterality TRANSFERRIN SATURATION Add-On 8:32 AM EDT Non-small [...] EDT Non-small cell lung cancer, unspecified laterality TN DEBRIDEMENT NAIL ANY METHOD 6/> Today 08/13/2025 4:08 PM EDT Nail dystrophy Right foot pain Left foot pain HC REMOVAL OF NAIL BED Today 4:07 PM EDT Ingrown right big toenail Right foot pain TN EXCISION NAIL MATRIX PERMANENT REMOVAL Today 08/13/2025 [...] lung CT CHEST W IV CONTRAST Routine 10:28 AM EDT Non-small cell cancer of [...] 3:43 PM EDT Coronary artery disease involving chitina coronary artery of chitina heart without angina pectoris T4, FREE Routine 07/18/2025 10:17 AM EDT TSH Routine 07/18/2025 10:17 AM EDT CBC WITH AUTO DIFFERENTIAL Routine 07/18/2025 10:17 AM EDT COMPREHENSIVE METABOLIC PANEL Routine 07/18/2025 10:17 AM EDT HEMOGLOBIN A1C Routine 06/13/2025 10:22 AM EDT BI MAMMOGRAM SCREENING BILATERAL Routine 05/11/2023 10:41 AM EDT Screening mammogram for breast cancer from Last 3 Months or Most Recently Relevant to Health Maintenance Results * (ABNORMAL) CBC auto differential (09/19/2025 9:06 AM EST) Only the most recent of5 resultswithin the time period is included. Auto WBC 3.1(L) 3.8 - 11.0 10*3/uL 09/19/2025 9:33 AM [facility] RBC 2.39(L) 3.73 - 5.13 10*6/uL 09/19/2025 9:33 AM [facility] Hemoglobin 9.2(L) 11.2 - 15.3 g/dL 09/19/2025 9:33 AM [facility] Hematocrit 27.1(L) 32.6 - 44.6 % 09/19/2025 9:33 AM [facility] MCV 113.2(H) 78.8 - 96.0 fL 09/19/2025 9:33 AM [facility] MCH 38.4(H) 26.2 - 33.0 pg 09/19/2025 9:33 AM [facility] MCHC 33.9 32.7 - 35.1 g/dL 09/19/2025 9:33 AM [facility] RDW 18.2(H) 12.1 - 16.1 % 09/19/2025 9:33 AM [facility] Platelets 143 138 - 402 10*3/uL 09/19/2025 9:33 AM [facility] MPV 7.7 7.0 - 10.6 fL 09/19/2025 9:33 AM [facility] Neutrophils % 52 47 - 79 % 09/19/2025 9:33 AM [facility] Lymphocytes % 32 13 - 41 % 09/19/2025 9:33 AM [facility] Monocytes % 12(H) 3 - 11 % 09/19/2025 9:33 AM [facility] Eosinophils % 2 0 - 6 % 09/19/2025 9:33 AM [facility] Basophils % 1 0 - 2 % 09/19/2025 9:33 AM [facility] Neutrophils Absolute 1.60(L) 1.90 - 7.50 10*3/uL 09/19/2025 9:33 AM [facility] Lymphocytes Absolute 1.00 0.80 - 3.20 10*3/uL 09/19/2025 9:33 AM [facility] Monocytes Absolute 0.40 0.10 - 0.90 10*3/uL 09/19/2025 9:33 AM [facility] Eosinophils Absolute 0.10 0.00 - 0.40 10*3/uL 09/19/2025 9:33 AM [facility] Basophils Absolute 0.00 0.00 - 0.20 10*3/uL 09/19/2025 9:33 AM [facility] Blood Venous blood specimen / Unknown Venipuncture / Unknown 09/19/2025 9:06 AM EST 09/19/2025 9:19 AM EST us Rachel Soriano MD LAB BLOOD ORDERABLES Final Result [facility] [address] [place] [address], * TSH (09/19/2025 9:06 AM EST) Only the most recent of5 resultswithin the time period is included. TSH 4.458 0.450 - 5.330 uIU/mL 09/19/2025 9:57 AM [facility] Comment: Non-[place] Female: 0.45 - 5.33 IU/mL Female - 1st Trimester: 0.05 - 3.70 IU/mL Female - 2nd Trimester: 0.31 4.35 IU/mL Female - 3rd Trimester: 0.41 5.18 IU/mL Blood Venous blood specimen / Unknown Venipuncture / Unknown 09/19/2025 9:06 AM EST 09/19/2025 9:18 AM EST Rachel Soriano MD LAB BLOOD ORDERABLES Final Result [facility] [address] [place] [address], * T4, free (09/19/2025 9:06 AM EST) Only the most recent of5 resultswithin the time period is included. Free T4 0.95 0.61 - 1.12 ng/dL 09/19/2025 9:57 AM [facility] Blood Venous blood specimen / Unknown Venipuncture / Unknown 09/19/2025 9:06 AM EST 09/19/2025 9:18 AM EST Rachel Soriano MD LAB BLOOD ORDERABLES Final Result [facility] [address] [place] [address], * (ABNORMAL) Comprehensive metabolic panel (09/19/2025 9:06 AM EST) Only the most recent of5 resultswithin the time period is included. Sodium 139 134 - 143 mmol/L 09/19/2025 9:50 AM [facility] Potassium 3.4 3.2 - 4.6 mmol/L 09/19/2025 9:50 AM [facility] Chloride 97(L) 99 - 108 mmol/L 09/19/2025 9:50 AM [facility] CO2 31(H) 19 - 29 mmol/L 09/19/2025 9:50 AM [facility] Comment:A sample with an LDH level > 2000 u/L may report a false high bicarbonate result. Samples within the normal LDH reference range for an adult population are unaffected. Anion Gap 11 5 - 15 mmol/L 09/19/2025 9:50 AM [facility] BUN 12 7 - 20 mg/dL 09/19/2025 9:50 AM [facility] Creatinine 0.94 <=1.20 mg/dL 09/19/2025 9:50 AM [facility] BUN/Creatinine Ratio 12.77 10.00 - 20.00 ratio 09/19/2025 9:50 AM [facility] Glucose 105(H) 58 - 104 mg/dL 09/19/2025 9:50 AM [facility] Calcium 9.3 7.9 - 11.1 mg/dL 09/19/2025 9:50 AM [facility] AST 22 10 - 28 U/L 09/19/2025 9:50 AM [facility] ALT (SGPT) 17 <=40 U/L 09/19/2025 9:50 AM [facility] Alkaline Phosphatase 71 29 - 108 U/L 09/19/2025 9:50 AM [facility] Total Protein 7.5 5.9 - 7.9 g/dL 09/19/2025 9:50 AM [facility] Albumin 3.6 3.5 - 5.1 g/dL 09/19/2025 9:50 AM [facility] Total Bilirubin 0.7 0.3 - 1.0 mg/dL 09/19/2025 9:50 AM [facility] eGFR (CKD-EPI) 63.4 >60.0 - 200.0 mL/min/1.7 3m*2 09/19/2025 9:50 AM [facility] Globulin, Total 3.9 2.4 - 4.8 g/dL 09/19/2025 9:50 AM [facility] A/G Ratio 0.9 0.6 - 1.6 09/19/2025 9:50 AM EST [facility] Blood Venous blood specimen / Unknown Venipuncture / Unknown 09/19/2025 9:06 AM EST 09/19/2025 9:18 AM EST us Rachel Soriano MD LAB BLOOD ORDERABLES Final Result [facility] [address] [place] [address], * XR hip 2 or 3 views [...] Cabrera MD 09/12/2025 10:52 AM EDT RPWorkstation: [id number] Lizandro Khan SPECTROGRAPHER IMG XR PROCEDURES Final Res ult * MR brain w and wo contrast [...] Don Cabrera MD 09/12/2025 09:58 AM EDT RPWorkstation: [id number] Rachel Soriano MD IMG MRI PROCEDURES Final Re sult * Transferrin saturation (08/27/2025 8:32 AM EDT) Transferrin Saturation 50 % 08/27/2025 11:08 AM EDT [facility] Blood Venous blood specimen / Unknown Venipuncture / Unknown 08/27/2025 8:32 AM EDT 08/27/2025 8:41 AM EDT Rachel Soriano MD LAB BLOOD ORDERABLES Final Result Performing Organization Address City/[facility]/ZIP Co de Phone Number [facility] [address] [place] [address], * Total Iron Binding Capacity (08/27/2025 8:32 AM EDT) TIBC 178 ug/dL 08/27/2025 11:08 AM EDT [facility] Blood Venous blood specimen / Unknown Venipuncture / Unknown 08/27/2025 8:32 AM EDT 08/27/2025 8:41 AM EDT Rachel Soriano MD LAB BLOOD ORDERABLES Final Result [facility] [address] [place] [address], * Phosphorus (08/27/2025 8:32 AM EDT) Phosphorus 4.0 2.3 - 4.7 mg/dL 08/27/2025 11:08 AM EDT [facility] Blood Venous blood specimen / Unknown Venipuncture / Unknown 08/27/2025 8:32 AM EDT 08/27/2025 8:41 AM EDT Rachel Soriano MD LAB BLOOD ORDERABLES Final Result Performing Organization Address [facility]/ZIP Co de Phone Number [facility] [address] [place] [address], [place] [phone] * Magnesium (08/27/2025 8:32 AM EDT) Magnesium 2.0 1.8 - 2.4 mg/dL 08/27/2025 11:08 AM EDT [facility] Blood Venous blood specimen / Unknown Venipuncture / Unknown 08/27/2025 8:32 AM EDT 08/27/2025 8:41 AM EDT Rachel Soriano MD LAB BLOOD ORDERABLES Final Result Performing Organization Address [facility]/ZIP Co de Phone Number [facility] [address] [place] [address], [place] [phone] * Iron (08/27/2025 8:32 AM EDT) Iron 89 50 - 212 ug/dL 08/27/2025 11:08 AM EDT [facility] Blood Venous blood specimen / Unknown Venipuncture / Unknown 08/27/2025 8:32 AM EDT 08/27/2025 8:41 AM EDT Rachel Soriano MD LAB BLOOD ORDERABLES Final Result Performing Organization Address City/[facility]/ZIP Co de Phone Number [facility] [address] [place] [address], [place] [phone] * (ABNORMAL) Folate (08/27/2025 8:32 AM EDT) Folate >27.2(H) 5.9 - 24.8 ng/mL 08/27/2025 11:26 AM EDT [facility] Blood Venous blood specimen / Unknown Venipuncture / Unknown 08/27/2025 8:32 AM EDT 08/27/2025 8:41 AM EDT Rachel Soriano MD LAB BLOOD ORDERABLES Final Result Performing Organization Address [facility] Co de Phone Number [facility] [address] [place] [address], [place] [phone] * (ABNORMAL) Ferritin (08/27/2025 8:32 AM EDT) Ferritin 510.0(H) 11.0 - 306.8 ng/mL 08/27/2025 11:20 AM EDT [facility] Blood Venous blood specimen / Unknown Venipuncture / Unknown 08/27/2025 8:32 AM EDT 08/27/2025 8:41 AM EDT Rachel Soriano MD LAB BLOOD ORDERABLES Final Result Performing Organization Address [facility] Phone Number [facility] [address] [place] [address], [place] [phone] * Vitamin B12 (08/27/2025 8:32 AM EDT) Vitamin B-12 373.6 180.0 - 914.0 pg/mL 08/27/2025 11:27 AM EDT [facility] Blood Venous blood specimen / Unknown Venipuncture / Unknown 08/27/2025 8:32 AM EDT 08/27/2025 8:41 AM EDT Rachel Soriano MD LAB BLOOD ORDERABLES Final Result Performing Organization Address [facility]/ZIP Co de Phone Number [facility] [address] [place] [address], [place] [phone] * TN DEBRIDEMENT NAIL ANY METHOD 6/> (08/13/2025 4:08 [...] diabetic?: no Time Out: 08/13/2025 4:08 PM [place] protocol: Procedure explained and questions answered to patient or proxy's satisfaction: yes Patient identity confirmed: Verbally with patient Anesthesia: Anesthesia method: None Nails debrided: Number of Nails debrided: 9 Post-procedure details: Procedure completion: Tolerated well, no immediate complications us Yazan Castro DPM IN CLINIC/BEDSIDE ORDERABLE S Final Result * TN EXCISION NAIL MATRIX PERMANENT REMOVAL, HC REMOVAL [...] diabetic?: no Time Out: 08/13/2025 4:07 PM [place] protocol: Procedure explained and questions answered to [...] IN CLINIC/BEDSIDE ORDERABLE S Final Result * CT abdomen pelvis w IV contrast [...] Anat Plasencia MD 07/20/2025 01:05 PM EDT [facility] 07/20/2025 1:05 PM EDT EXAMINATION: SKULL BASE [...] - 110 mg/dL 07/20/2025 9:49 AM EDT [facility] Comment:No Action Tipple Engineer Name Ángela Cantu PET SCAN TECH 07/20/2025 9:49 AM EDT [facility] Tipple Engineer ID [id number] 07/20/2025 9:49 AM EDT [facility] Blood Capillary blood specimen / Unknown 07/20/2025 9:49 AM EDT 07/20/2025 9:49 AM EDT Generic Provider Poct LAB POINT OF CARE TEST DOCKED DEVICE UNSOLICITED RESULTS Final Result [facility] [address] [place] [address], * MR cervical spine w and wo [...] change of the facet joints resulting in [id number] foraminal and mild central stenosis. C7-T1: Unremarkable. [...] degenerative change of the facet jointsresulting in [id number] foraminal and mild central stenosis. C7-T1: Unremarkable. IMPRESSION: The exam is limited by patient movement. There is degenerative disc andjoint disease with stenosis as described. Electronically signed by: Don Cabrera MD 07/20/2025 10:40 AM EDT RPWorkstation: [id number] Linda Elizabeth DO IMG MRI PROCEDURES Final [...] age indeterminate NONSPECIFIC T abnormalities, lateral leads Santos Sanchez MD ECG ORDERABLES Final Result [facility] * Hemoglobin A1c (06/13/2025 10:22 AM EDT) Hemoglobin A1C 5.5 3.0 - 6.0 % 06/13/2025 10:48 AM EDT [facility] Comment: Additional Reference Ranges: 6.0 - 9.0% Controlled Diabetic >9.0 Poorly Controlled Diabetic *Hemoglobin A1c is an FDA approved test for monitoring exterminator helper glucose control in individuals with diabetes. It is not an approved screening test for diagnosing type 1 and type 2 diabetes. Results of Hemoglobin A1c are not reliable in patients with chronic blood loss, consequent variable erythrocyte lifespan, hemolytic diseases, , and significant blood loss. MEAN BLOOD GLUCOSE 111.15 mg/dl 06/13/2025 10:48 AM EDT [facility] Blood Venous blood specimen / Unknown Existing Catheter / Unknown 06/13/2025 10:22 AM EDT 06/13/2025 10:34 AM EDT Dennis Mata DO LAB BLOOD ORDERABLES Millie l Result [facility] [address] [place] [address], * BI Screening mammogram bilateral w tomosynthesis [...] and nipple shadows are normal in appearance. us Opal Galeas MD IMG BI PROCEDURES Final Result from Last 3 Months or Most Recently Relevant to Health Maintenance Insurance [employer] MED[employer]ARE ([place] [address] [place] [address] Advance Directives * DNR (Latest Code Status [...] 2:06 AM 04/03/2025 12:35 PM Care Teams Physical Education Professor Relationship Specialty Start Date End Date Lizandro Khan NP [address] [place] [address] PCP - General Family Medicine 07/23/25 Rachel Pagan MD [address] [facility] [place] [address] Consulting Physician Oncology 11/11/22 Pati Rucker APRN [address] [facility] [place] [address] Nurse Practitioner Oncology 12/21/22 Sosa Gardner APRN [address] [facility] [place] [address] Nurse Practitioner Oncology 06/24/23 Angie Murray RN [address] [place] [id number] Nurse Navigator Oncology 06/26/25
--- OUTSIDE RECORDS SUMMARY | 2025-09-30 11:41 | XMS_ITS | Encounter Summary ---
Author Organization [facility] nter Address [address] [place] [address] Care Team Providers Care Registered Nurse Midwife Name Role Phone Rachel Pagan MD Unavailable [phone] Pati Rucker WIGS SALESPERSON Unavailable [phone] Sosa Gardner WIGS SALESPERSON Unavailable Linda Elizabeth DO Unavailable Angie Murray RN Unavailable Unavailab Lizandro Islas NP Primary Care Provider [phone] Reason for Visit * Reason Onset Date Comments Glucophage 08/20/2025 Encounter Details Date Type Department Care Team (Late st Contact Info) Description 08/20/2025 Telephone [facility] SALES [facility]NA[facility] PRACT[facility] [address] 8th [place] [address] Nuvia Johnson MD [address] [place] [address] Glucophage Social History Tobacco Use [...] week 11/11/2022 How often do you attend [facility] or taoist services? More than 4 times per year 11/11/2022 Do you belong to any clubs o r organizations such as hinduism groups, unions, fraternal or athletic groups, or [...] a skilled nursing (including now)? No 11/11/2022 [facility] - Personal Safety Answer Date [...] needed for daily living? No 06/23/2025 [facility] Utilities Answer Date Recorded In the past 12 months has th e electric, gas, oil, or water [employer] threatened to shut off services in your [...] Telephone Encounter - Flores Bonds RN - 09/05/2025 4:20 PM EDT Called 10th floor and spoke with Dr. Johnson and he stated, I have not seen pt since June 23 and they need to follow up with the primary provider. Called pt & informed of the message from Dr. Johnson. Verbalized clear understanding. * Telephone Encounter - Flores Bonds RN - 08/20/2025 9:22 AM EDT Called pt daughter on [employer]IP[employer] back and stated she stated she needs an update on the Rx Glucophage. Daughter stated that pt was discharged home on this from 10th floor and asking for a month supply until she can get back in with primary doctor. Call back # [phone]. Pharmacy: [facility] documented in this encounter Plan of Treatment Upcoming Encounters Date Type Department Care Team (Late st Contact Info) Description 10/04/2025 8:45 AM EST Office Visit [facility] [address], 10th [address] [place] [id number] Rachel Pagan MD [address] [place] [address] 10/10/2025 10:30 AM EST Appointment [facility] [address] [place] [address] 11/02/2025 9:30 AM EST Office Visit [facility] [address], 1st [address] [place] [phone] Ky Jewell MD [address] [place] [phone] 11/05/2025 2:45 PM EST Office Visit [facility] [address] [place] [address] Ruddy Mayes MD [address] [place] [address] 12/31/2025 11:30 AM EST Office Visit [facility] [address] [place] [address] 01/22/2026 9:00 AM EDT Office Visit [facility] [address]st [place] [address] Allyn Toribio NP [address] [place] [id number] documented as of this encounter Goals Goal Patient Goal Type Associated Problems Recent Progress Patient-Stated? Author Patient's support system will participate in treatment General Emily Ny documented as of this encounter Visit Diagnoses Not on filedocumented in this encounter Additional Health Concerns Assessment Noted Time PHQ-9 Depression Total Score: 0 06/23/20 10:00 AM EDT documented as of this encounter Care Teams Registered Nurse Midwife Relationship Specialty Start Date End Date Lizandro Khan NP [address] [place] [address] PCP - General Family Medicine 07/23/25 Rachel Pagan MD [address] [place] [place] [address] Consulting Physician Oncology 11/11/22 Pati Rucker APRN [address] [place] [address] Nurse Practitioner Oncology 12/21/22 Sosa Gardner APRN [address] [place] [address] Nurse Practitioner Oncology 06/24/23 Linda Elizabeth DO [address] [place] [phone] Consulting Physician Oncology 03/01/25 08/28/25 Angie Murray RN [address] [place] [address] Nurse Navigator Oncology 06/26/25 documented as of this encounter
--- NOTE | 2025-09-30 11:42 | ECG_ITS ---
APPROVED REPORT Exam: Resting ECG HR:87 bpm ECG Measurements Heart Rate 87 AXES WI 144 P 45 QRSd 74 QRS 21 QT 382 T 79 QTc 426 Conclusion SINUS RHYTHM MODERATE ST DEPRESSION [0.05+ mV ST DEPRESSION] ABNORMAL ECG Electronically signed by : PAIGE HOUSER, 10/02/2025 15:38:00
--- OUTSIDE RECORDS SUMMARY | 2025-09-30 11:42 | XMS_ITS ---
Author Organization [facility] nter Address [address] [place] [address] Care Team Providers Care Paddock Judge Name Role Phone Rachel Pagan MD Unavailable [phone] Pati Rucker SERVICE CAPTAIN Unavailable [phone] Sosa Gardner SERVICE CAPTAIN Unavailable [phone] Angie Murray RN Unavailable Unavailab Lizandro Islas NP Primary Care Provider [phone] Active Problems Problem Noted Date Diagnosed Date [...] in size. Patient does not have any ORDERLY symptoms. She was seen by radiation oncology. [...] -Will continue to coordinate with neurosurgery and [facility] regarding brain imaging/disease. -She will continue [...] in size. Patient does not have any ORDERLY symptoms. She was seen by radiation oncology. [...] -Will continue to coordinate with neurosurgery and [facility] regarding brain imaging/disease. -She will continue [...] in size. Patient does not have any ORDERLY symptoms. She was seen by radiation oncology. [...] an eye -Will coordinate with neurosurgery and [facility] regarding brain imaging - Labs before [...] in size. Patient does not have any ORDERLY symptoms. She was seen by radiation oncology. [...] patient had a brain radiation here at [facility] 03/2025 since the gamma knife she received 12/2024 at the . I will coordinate with [facility] radiation oncology about the next brain MRI. [...] in size. Patient does not have any ORDERLY symptoms. She was seen by radiation oncology. [...] in size. Patient does not have any ORDERLY symptoms. She was seen by radiation oncology. [...] evidence of acute ischemic change. Spoke to pension adviser Oncologist, Dr. Elizabeth. She recommends to request [...] in size. Patient does not have any ORDERLY symptoms. She was seen by radiation oncology. [...] evidence of acute ischemic change. Spoke to pension adviser Oncologist, Dr. Elizabeth. She recommends to request [...] in size. Patient does not have any ORDERLY symptoms. She was seen by radiation oncology. [...] in size. Patient does not have any ORDERLY symptoms. She was seen by radiation oncology. [...] -Will see the patient 01/05/2025 here at [facility] to discuss systemic treatment options as detailed above. -Will coordinate her care with neurosurgery team as far as her brain metastasis -Keep reimaging brain MRI and follow-up appointment with neurosurgery team as scheduled -RT 01/05/2025 Assessment & Plan (12/07/2024 3:34 PM [...] in size. Patient does not have any ORDERLY symptoms. She was seen by radiation oncology. [...] Will see the patient 12/28/2024 here at [facility] to discuss systemic treatment options as detailed [...] in size. Patient does not have any ORDERLY symptoms. She was seen by radiation oncology. [...] to get opinion about resection and consult [facility]. He has also discussed with [...] in size. Patient does not have any ORDERLY symptoms. She was seen by radiation oncology. [...] in size. Patient does not have any ORDERLY symptoms. She was seen by radiation oncology. [...] in size. Patient does not have any ORDERLY symptoms. She was seen by radiation oncology. [...] in size. Patient does not have any ORDERLY symptoms. She was seen by radiation oncology. [...] in size. Patient does not have any ORDERLY symptoms. She was seen by radiation oncology. [...] in size. Patient does not have any ORDERLY symptoms. She was seen by radiation oncology. [...] in size. Patient does not have any ORDERLY symptoms. She was seen by radiation oncology. [...] in size. Patient does not have any ORDERLY symptoms. She was seen by radiation oncology. [...] in size. Patient does not have any ORDERLY symptoms. She was seen by radiation oncology. [...] in size. Patient does not have any ORDERLY symptoms. She was seen by radiation oncology. [...] in size. Patient does not have any ORDERLY symptoms. She was seen by radiation oncology. [...] in size. Patient does not have any ORDERLY symptoms. She was seen by radiation oncology. [...] in size. Patient does not have any ORDERLY symptoms. She was seen by radiation oncology. [...] in size. Patient does not have any ORDERLY symptoms. She was seen by radiation oncology. [...] in size. Patient does not have any ORDERLY symptoms. She was seen by radiation oncology. [...] in size. Patient does not have any ORDERLY symptoms. She was seen by radiation oncology. [...] in size. Patient does not have any ORDERLY symptoms. She was seen by radiation oncology. [...] in size. Patient does not have any ORDERLY symptoms. She was seen by radiation oncology. [...] in size. Patient does not have any ORDERLY symptoms. She was seen by radiation oncology. [...] in size. Patient does not have any ORDERLY symptoms. She was seen by radiation oncology. [...] in size. Patient does not have any ORDERLY symptoms. She was seen by radiation oncology. [...] in size. Patient does not have any ORDERLY symptoms. She was seen by radiation oncology. [...] in size. Patient does not have any ORDERLY symptoms. She was seen by radiation oncology. [...] in size. Patient does not have any ORDERLY symptoms. She was seen by radiation oncology. [...] in size. Patient does not have any ORDERLY symptoms. She was seen by radiation oncology. [...] in size. Patient does not have any ORDERLY symptoms. She was seen by radiation oncology. [...] in size. Patient does not have any ORDERLY symptoms. She was seen by radiation oncology. [...] in size. Patient does not have any ORDERLY symptoms. She was seen by radiation oncology. [...] in size. Patient does not have any ORDERLY symptoms. She was seen by radiation oncology. [...] Medications Current Day (Day 1 , Cycle 10 - Planned for 10/10/2025) Next Day (Day 1, Cycle 11 - Planned for 10/31/2025) CARBOplatin (Paraplatin) otoniel mo IVPB (by AUC)fosaprepitant [...] in size. Patient does not have any ORDERLY symptoms. She was seen by radiation oncology. [...] in size. Patient does not have any ORDERLY symptoms. She was seen by radiation oncology. [...] in size. Patient does not have any ORDERLY symptoms. She was seen by radiation oncology. [...] in size. Patient does not have any ORDERLY symptoms. She was seen by radiation oncology. [...] in size. Patient does not have any ORDERLY symptoms. She was seen by radiation oncology. [...] in size. Patient does not have any ORDERLY symptoms. She was seen by radiation oncology. [...] in size. Patient does not have any ORDERLY symptoms. She was seen by radiation oncology. [...] in size. Patient does not have any ORDERLY symptoms. She was seen by radiation oncology. [...] in size. Patient does not have any ORDERLY symptoms. She was seen by radiation oncology. [...] 10/26/2022 11/11/2022 Coronary artery disease invo lving tetlin coronary artery of tetlin heart without angina pectoris 04/03/2022 04/25/2025 Overview [...]
--- OUTSIDE RECORDS SUMMARY | 2025-09-30 11:42 | XMS_ITS | Encounter Summary ---
Author Organization [facility] nter Address [address] [place] [address] Care Team Providers Care Financial Reserve Clerk Name Role Phone Lizandro Khan BANBURY MILL OPERATOR Primary Care Provider [phone] Rachel Pagan MD Unavailable [phone] Yesy Acuna RN Unavailable [phone] [address] BANBURY MILL OPERATOR Primary Care Provider [phone] Pati Rucker CUSTOMER ACCOUNT REPRESENTATIVE Unavailable [phone] Sosa Gardner CUSTOMER ACCOUNT REPRESENTATIVE Unavailable [phone] Italo Camejo BANBURY MILL OPERATOR Primary Care Provider [phone] Linda Elizabeth DO Unavailable Lizandro Khan BANBURY MILL OPERATOR Primary Care Provider [phone] Elsa Vazquez Unavailable Unavailable Angie Murray RN Unavailable Unavailab Lizandro Islas BANBURY MILL OPERATOR Primary Care Provider [phone] Encounter Details Date Type Department Care Team (Late st Contact Info) Description 11/12/2022 Orders Only [facility] [address], 10th [place] [address] Katiana Moreno [address] [place] [address] Social History Tobacco Use Types Packs/Day Years [...] often do you attend [facility] or druze services? More than 4 times [...] ONCOLOGY PRACTICE [address], 10th [place] [address] Rachel Pagan MD [address] [place] [address] 10/10/2025 10:30 AM EST Appointment [facility] MEDICAL ONCOLOGY [address], 11th [place] [address] 11/02/2025 9:30 AM EST Office Visit [facility] CARDIOLOGY PRACTICE [address], 1st [place] [address] Ky Jewell MD [address] [place] [address] 11/05/2025 2:45 PM EST Office Visit [facility] NEUROLOGY PRACTICE [address], 8th [place] [address] Ruddy Mayes MD [address] [facility] [place] [address] 12/31/2025 11:30 AM EST Office Visit [facility] NEPHROLOGY PRACTICE [address] [id number] 01/22/2026 9:00 AM EDT Office Visit [facility] CARDIOLOGY PRACTICE [address], 1st [place] [address] Allyn Toribio NP [address] [place], [place] [id number] documented as of this encounter Visit Diagnoses [...] documented as of this encounter Care Teams Financial Reserve Clerk Relationship Specialty Start Date End Date Lizandro Khan NP 76[address] [place] [address] PCP - General 12/09/22 Viridiana Plaza NP [address] [place] [address] PCP - General Family Medicine 12/10/22 09/23/23 Italo Camejo NP 76[address] [facility], [address] [place] [address] PCP - General Family Medicine 09/24/23 03/19/25 Lizandro Khan NP 7617 [place] [address] PCP - General Family Medicine 03/20/25 07/22/25 Lizandro Khan NP 76[address] [place] [address] PCP - General Family Medicine 07/23/25 Rachel Pagan MD [facility] [address] [facility] [place] [address] Consulting Physician Oncology 11/11/22 Yesy Acuna, ROLDAN [address] [place], [place] [phone] Nurse Navigator 11/12/22 03/05/25 Pati Rucker APRN [address] [facility] [place] [address] Nurse Practitioner Oncology 12/21/22 Sosa Gardner APRN [address] [place] [address] Nurse Practitioner Oncology 06/24/23 Linda Elizabeth DO [address] [place] [address] Consulting Physician Oncology 03/01/25 08/28/25 Elsa Vazquez [address] [place] [address] Nurse Navigator Oncology 06/05/25 07/19/25 Angie [place] RN [address] [place] [address] Nurse Navigator Oncology 06/26/25 documented as of this encounter
--- OUTSIDE RECORDS SUMMARY | 2025-09-30 11:42 | XMS_ITS | Encounter Summary ---
Author Organization [facility] nter Address [address] [place] [address] Care Team Providers Care Editorial Director Name Role Phone Rachel Pagan MD Unavailable [phone] Pati Rucker POLICE CRIME SCENE TECHNICIAN Unavailable [phone] Soas Gardner POLICE CRIME SCENE TECHNICIAN Unavailable [phone] Linda Elizabeth DO Unavailable Angie [place] RN Unavailable Unavailab Lizandro Islas NP Primary Care Provider [phone] Encounter Details Date Type Department Care Team [...] often do you attend chur ch or confucianist services? More than 4 times [...] in a snf (including now)? No 11/11/2022 [facility] - Personal Safety Answer Date Recor [...] PRACTICE [address], 10th [place] [address] Rachel Pagan MD [address] [place] [address] 10/10/2025 10:30 AM EST Appointment [facility] MEDICAL ONCOL[facility] [address], 11th [place] [address] 11/02/2025 9:30 AM EST Office Visit [facility] CARDIOLOGY PRACTICE [address], 1st Floor [facility] [place] [address] Ky Jewell MD [address] [facility] [place] [address] 11/05/2025 2:45 PM EST Office Visit [facility] NEUROLOGY PRACTICE [address], 8th [place] [address] Ruddy Mayes MD 1 [facility] [place] [phone] 12/31/2025 11:30 AM EST Office Visit [facility] NEPHROLOGY PRACTICE [address] [place], [place] [phone] 01/22/2026 9:00 AM EDT Office Visit [facility] CARDIOLOGY PRACTICE [address], 1st [place] [address] Allyn Toribio NP [address] [phone] documented as of this encounter Goals Goal Patient Goal Type Associated Problems Recent Progress Patient-Stated? Author Patient's support system will participate in treatment General No Emily Dong documented as of this encounter Visit Diagnoses Not on filedocumented in this encounter Additional Health Concerns Assessment Noted Time PHQ-9 Depression Total Score: 0 06/23/20 10:00 AM EDT documented as of this encounter Care Teams Editorial Director Relationship Specialty Start Date End Date Lizandro Khan NP 7617 [place] [address] PCP - General Family Medicine 07/23/25 Rachel Pagan MD [address] [place] [address] Consulting Physician Oncology 11/11/22 Pati Rucker APRN [address] [place] [address] Nurse Practitioner Oncology 12/21/22 Sosa [place] APRN [address] [facility] [place] [address] Nurse Practitioner Oncology 06/24/23 Linda Elizabeth DO [address] [facility] [place] [address] Consulting Physician Oncology 03/01/25 08/28/25 Angie [place], ROLDAN [address] [place] [address] Nurse Navigator Oncology 06/26/25 documented as of this encounter
--- OUTSIDE RECORDS SUMMARY | 2025-09-30 11:42 | XMS_ITS | Encounter Summary ---
Author Organization [facility] nter Address [address] [place] [address] Care Team Providers Care Spine Specialist Name Role Phone Rachel Pagan MD Unavailable [phone] Pati Rucker LAND DEVELOPMENT PROJECT MANAGER Unavailable [phone] oSsa Gardner LAND DEVELOPMENT PROJECT MANAGER Unavailable [phone] Linda Elizabeth DO Unavailable Angie [place] RN Unavailable Unavailab Lizandro Islas NP Primary Care Provider [phone] Encounter Details Date Type Department Care Team (Late st Contact Info) Description 08/15/2025 Abstract [facility] ORTHOPEDIC PODIATRY PRACTICE [address], 6th [place] [address] Yazan Castro DPM [address] [place] [address] Social History Tobacco Use Types [...] often do you attend chur ch or mosque services? More than 4 times [...] in a halfway (including now)? No 11/11/2022 [facility] - Personal Safety Answer Date Recor ded [...] things needed for daily living? No 06/23/2025 [facility] Utilities Answer Date Recorded In the past [...] PRACTICE [address], 10th [place] [address] Rachel Pagan MD [address] [place] [address] 10/10/2025 10:30 AM EST Appointment [facility] MEDICAL ONCOL[facility]Y [address], 11th [place] [address] 11/02/2025 9:30 AM EST Office Visit [facility] CARDIOLOGY PRACTICE [address], 1st Floor [place] [phone] Ky Jewell MD [facility] [address] [place] [phone] 11/05/2025 2:45 PM EST Office Visit [facility] NEUROLOGY PRACTICE [address], 8th Floor Clinic [place] [phone] Ruddy Mayes MD [facility] [place] [address] 12/31/2025 11:30 AM EST Office Visit [facility] NEPHROLOGY PRACTICE [address] [phone] 01/22/2026 9:00 AM EDT Office Visit [facility] CARDIOLOGY PRACTICE [address], 1st Floor [place] [phone] Allyn Toribio NP [address] [place] [address] documented as of this encounter Goals Goal Patient Goal Type Associated Problems Recent Progress Patient-Stated? Author Patient's support system will participate in treatment General No Emily Dong documented as of this encounter Visit Diagnoses Not on filedocumented in this encounter Additional Health Concerns Assessment Noted Time PHQ-9 Depression Total Score: 0 06/23/20 10:00 AM EDT documented as of this encounter Care Teams Spine Specialist Relationship Specialty Start Date End Date Lizandro Khan NP 7617 [place] [address] PCP - General Family Medicine 07/23/25 Rachel Pagan MD [address] [place] [address] Consulting Physician Oncology 11/11/22 Pati Rucker APRN [address] [facility] [place] [address] Nurse Practitioner Oncology 12/21/22 Sosa Gardner APRN [address] [facility] [place] [address] Nurse Practitioner Oncology 06/24/23 Linda Elizabeth DO [address] [place], [place] [phone] Consulting Physician Oncology 03/01/25 08/28/25 Angie [place] RN [address] [place] [address] Nurse Navigator Oncology 06/26/25 documented as of this encounter
--- OUTSIDE RECORDS SUMMARY | 2025-09-30 11:42 | XMS_ITS | Encounter Summary ---
Author Organization [facility] nter Address [address] [place] [address] Care Team Providers Care Framer Name Role Phone Rachel Pagan MD Unavailable [phone] Yesy Acuna RN Unavailable Pati Rucker SUPERVISOR PIPELINE MAINTENANCE Unavailable [phone] Sosa Gardner SUPERVISOR PIPELINE MAINTENANCE Unavailable [phone] Italo Camejo GRANTS DIRECTOR Primary Care Provider Linda Elizabeth DO Unavailable Lizandro Khan GRANTS DIRECTOR Primary Care Provider [phone] Elsa Vazquez Unavailable Unavailable Angie [place] RN Unavailable Unavailab Lizandro Islas GRANTS DIRECTOR Primary Care Provider [phone] Encounter Details Date Type Department Care Team (Late st Contact Info) Description 10/27/2024 Orders Only [facility] ONCOLOGY PRACTICE [address], 10th [place] [address] Sosa [place] APRN [address] [place] [address] Non-small cell cancer of right lung Social History Tobacco Use Types Packs/Day Years Used Date Smoking Tobacco: Every Day Cigarettes 0.5 30 Passive Smoke Exposure: Current Smokeless Tobacco: Never Comments:Offered patient an appointment at the health department for smoking cessation classes. Patient declined. Alcohol Use Standard Drinks/Week Comments Never 0 (1 standard drink = 0.6 oz pur e alcohol) [facility] Utilities Answer Date Recorded In [...] week 11/11/2022 How often do you attend [facility] or nondenominational services? More than 4 times [...] ONCOLOGY PRACTICE [address], 10th [place] [address] Rachel Pagan MD [address] [place] [address] 10/10/2025 10:30 AM EST Appointment [facility] MEDICAL ONCOLOGY [address], 11th [place] [address] 11/02/2025 9:30 AM EST Office Visit [facility]ARDIOLOGY PRACT[facility] [address], 1st [place] [address] Ky Jewell MD [address] [place] [address] 11/05/2025 2:45 PM EST Office Visit [facility] NEUROLOGY PRACTICE [address], 8th [place] [address] Ruddy Mayes MD [address] [facility] [place] [address] 12/31/2025 11:30 AM EST Office Visit [facility] NEPHROLOGY PRACTICE [address] [facility] [place] [address] 01/22/2026 9:00 AM EDT Office Visit [facility] CARDIOLOGY PRACTICE [address], 1st Floor [place] [facility] [place] [address] Allyn Toribio NP [address] [place] [address] documented as of this encounter Procedures Procedure [...] 134 - 143 mmol/L 10/27/2024 1:39 PM [facility] Potassium 3.8 3.2 - 4.6 mmol/L 10/27/2024 1:39 PM [facility] Chloride 110(H) 99 - 108 mmol/L 10/27/2024 1:39 PM [facility] CO2 26 19 - 29 mmol/L 10/27/2024 1:39 PM [facility] Anion Gap 4(L) 5 - 15 mmol/L 10/27/2024 1:39 PM [facility] BUN 12 7 - 20 mg/dL 10/27/2024 1:39 PM [facility] Creatinine 0.93 <=1.20 mg/dL 10/27/2024 1:39 PM [facility] BUN/Creatinine Ratio 12.90 10.00 - 20.00 ratio 10/27/2024 1:39 PM [facility] Glucose 189(H) 58 - 104 mg/dL 10/27/2024 1:39 PM [facility] Calcium 8.4 7.9 - 11.1 mg/dL 10/27/2024 1:39 PM [facility] AST 14 10 - 28 U/L 10/27/2024 1:39 PM [facility] ALT (SGPT) 15 <=40 U/L 10/27/2024 1:39 PM [facility] Alkaline Phosphatase 93 29 - 108 U/L 10/27/2024 1:39 PM [facility] Total Protein 5.7(L) 5.9 - 7.9 g/dL 10/27/2024 1:39 PM [facility] Albumin 3.1(L) 3.5 - 5.1 g/dL 10/27/2024 1:39 PM [facility] Globulin, Total 2.6 2.4 - 4.8 g/dL 10/27/2024 1:39 PM [facility] A/G Ratio 1.2 0.6 - 1.6 10/27/2024 1:39 PM [facility] Total Bilirubin 0.4 0.3 - 1.0 mg/dL 10/27/2024 1:39 PM [facility] eGFR (CKD-EPI) 64.2 >60.0 - 200.0 mL/min/1.7 3m*2 10/27/2024 1:39 PM [facility] Blood Venous blood specimen / Unknown Existing Catheter / Unknown 10/27/2024 12:34 PM EST 10/27/2024 12:47 PM [facility] - 10/27/2024 1:39 PM EST Please note possible changes in reference range and units reported due to change in methodology. us Sosa Gardner SUPERVISOR PIPELINE MAINTENANCE LAB BLOOD ORDERABLES Final Res ult [facility] [address] [place] [address], * (ABNORMAL) CBC auto differential (10/27/2024 12:34 PM EST) Auto WBC 6.9 3.8 - 11.0 10*3/uL 10/27/2024 12:54 PM [facility] RBC 4.14 3.73 - 5.13 10*6/uL 10/27/2024 12:54 PM [facility] Hemoglobin 13.8 11.2 - 15.3 g/dL 10/27/2024 12:54 PM [facility] Hematocrit 39.7 32.6 - 44.6 % 10/27/2024 12:54 PM [facility] MCV 96.0 78.8 - 96.0 fL 10/27/2024 12:54 PM [facility] MCH 33.4(H) 26.2 - 33.0 pg 10/27/2024 12:54 PM [facility] MCHC 34.8 32.7 - 35.1 g/dL 10/27/2024 12:54 PM [facility] RDW 13.7 12.1 - 16.1 % 10/27/2024 12:54 PM [facility] MPV 8.3 7.0 - 10.6 fL 10/27/2024 12:54 PM [facility] Neutrophils % 64 47 - 79 % 10/27/2024 12:54 PM [facility] Lymphocytes % 28 13 - 41 % 10/27/2024 12:54 PM [facility] Monocytes % 6 3 - 11 % 10/27/2024 12:54 PM [facility] Eosinophils % 2 0 - 6 % 10/27/2024 12:54 PM [facility] Basophils % 1 0 - 2 % 10/27/2024 12:54 PM [facility] Neutrophils Absolute 4.40 1.90 - 7.50 10*3/uL 10/27/2024 12:54 PM [facility] Lymphocytes Absolute 1.90 0.80 - 3.20 10*3/uL 10/27/2024 12:54 PM EST [facility] Monocytes Absolute 0.40 0.10 - 0.90 10*3/uL 10/27/2024 12:54 PM EST [facility] Eosinophils Absolute 0.20 0.00 - 0.40 10*3/uL 10/27/2024 12:54 PM [facility] Basophils Absolute 0.10 0.00 - 0.20 10*3/uL 10/27/2024 12:54 PM [facility] Platelets 217 138 - 402 10*3/uL 10/27/2024 12:54 PM [facility] Blood Venous blood specimen / Unknown Existing Catheter / Unknown 10/27/2024 12:34 PM EST 10/27/2024 12:47 PM EST us Sosa Gardner SUPERVISOR PIPELINE MAINTENANCE LAB BLOOD ORDERABLES Final Res ult Performing Organization Address City/State/[facility] Co de Phone Number [facility] [address] [place] [address], documented in this encounter Visit Diagnoses Diagnosis [...] documented as of this encounter Care Teams Framer Relationship Specialty Start Date End Date Italo Camejo NP [address] [facility], [address] [place] [address] PCP - General Family Medicine 09/24/23 03/19/25 Lizandro Khan NP [address] [place] [address] PCP - General Family Medicine 03/20/25 07/22/25 Lizandro Khan NP [address] [place] [address] PCP - General Family Medicine 07/23/25 Rachel Pagan MD [address] [place] [address] Consulting Physician Oncology 11/11/22 Yesy Acuna, RN [address] [place], [place] [phone] Nurse Navigator 11/12/22 03/05/25 Pati Rucker APRN [address] [place] [address] Nurse Practitioner Oncology 12/21/22 Sosa Gardner APRN [address] [place] [address] Nurse Practitioner Oncology 06/24/23 Linda Elizabeth DO [address] [place] [address] Consulting Physician Oncology 03/01/25 08/28/25 Elsa Vazquez [address] [place] [address] Nurse Navigator Oncology 06/05/25 07/19/25 Angie [place], RN [address] [place] [address] Nurse Navigator Oncology 06/26/25 documented as of this encounter
--- OUTSIDE RECORDS SUMMARY | 2025-09-30 11:42 | XMS_ITS | Encounter Summary ---
Author Organization [facility] nter Address [address] [place] [address] Care Team Providers Care Scientologist Name Role Phone Lizandro Khan CULINARY WORKER Primary Care Provider [phone] Rachel Pagan MD Unavailable [phone] Yesy Acuna RN Unavailable [phone] CULINARY WORKER Primary Care Provider [phone] Pati Rucker TELEPHONE APPOINTMENT CLERK Unavailable [phone] Sosa Gardner TELEPHONE APPOINTMENT CLERK Unavailable [phone] Italo Camejo CULINARY WORKER Primary Care Provider [phone] Linda Elizabeth DO Unavailable Lizandro Khan CULINARY WORKER Primary Care Provider [phone] Elsa Vazquez Unavailable Unavailable Angie [place] RN Unavailable Unavailab Lizandro Islas CULINARY WORKER Primary Care Provider [phone] Reason for Referral * Imaging (Routine) - Closed Specialty Diagnoses / Procedures Referred By Contac t Referred To Contact Radiology Diagnoses Non-small cell lung cancer, unspecified laterality Procedures MR brain w and wo contrast Rachel Pagan MD [address] [place] [address] Phone: tel: fax: [facility] MRI BLDG D [address], [address] [place] [address] Phone: tel: Referral ID Status Reason Start Date Expiration Date Visits Re quested Visits Authorized [id number] Closed 11/11/2022 02/09/2023 1 1 Encounter Details Date Type Department Care Team (Late st Contact Info) Description 11/17/2022 Orders Only [facility] ONCOLOGY PRACTICE [address], 10th Floor Clinic [place] [address] Rachel Pagan MD [address] [facility] [place] [address] Non-small cell lung [...] often do you attend [facility] or mandaen services? More than 4 times per year 11/11/2022 Do you belong to any clubs o r organizations such as oriental orthodox groups, unions, fraternal or athletic groups, [...] PRACTICE [address], 10th [place] [address] Rachel Pagan MD [address] [place] [address] 10/10/2025 10:30 AM EST Appointment [facility] MEDICAL ONCOLOGY [address], 11th [place] [address] 11/02/2025 9:30 AM EST Office Visit [facility] CARDIOLOGY PRACTICE [address], 1st [place] [address] Ky Jewell MD [address] [place] [address] 11/05/2025 2:45 PM EST Office Visit [facility] NEUROLOGY PRACTICE [address], 8th [place] [address] Ruddy Mayes MD [address] [place] [address] 12/31/2025 11:30 AM EST Office Visit [facility] NEPHROLOGY PRACTICE [address] [place] [address] 01/22/2026 9:00 AM EDT Office Visit [facility] CARDIOLOGY PRACTICE [address], [address] [place] [address] Allyn Toribio NP [address] [place], [place] [phone] documented as of this encounter Results * [...] W AND WO CONTRAST: 11/25/2022 CLINICAL INFORMATION: Brain/EXCHANGE UNDERWRITING CONSULTANT neoplasm, staging NSCLC with abnormal brain image [...] W AND WO CONTRAST: 11/25/2022 CLINICAL INFORMATION: Brain/EXCHANGE UNDERWRITING CONSULTANT neoplasm, staging NSCLC with abnormal brain image COMPARISON: 11/17/2022 A 4 mm enhancing lesion posterior superior left frontal lobe along thevertex, image 125 series 14,000, concerning for intracranial metastasis. A3 mm enhancing lesion posterior left frontal lobe image 109 and ,000 concerning for intracranial metastasis. Subtle 3 mm [...] documented as of this encounter Care Teams Scientologist Relationship Specialty Start Date End Date Lizandro Khan NP [address] [place] [address] PCP - General 12/09/22 Viridiana Plaza NP [address] [place] [address] PCP - General Family Medicine 12/10/22 09/23/23 Italo Camejo NP [address] [place] [address], [address] [place] [address] PCP - General Family Medicine 09/24/23 03/19/25 Lizandro Khan NP [address] [place] [address] PCP - General Family Medicine 03/20/25 07/22/25 Lizandro Khan NP [address] [facility] [place] [address] PCP - General Family Medicine 07/23/25 Rachel Pagan MD [address] [place] [address] Consulting Physician Oncology 11/11/22 Yesy Acuna, ROLDAN [address] [place] [address] Nurse Navigator 11/12/22 03/05/25 Pati Rucker APRN [address] [place] [address] Nurse Practitioner Oncology 12/21/22 Sosa Gardner APRN [address] [place] [address] Nurse Practitioner Oncology 06/24/23 Linda Elizabeth DO [address] [place] [address] Consulting Physician Oncology 03/01/25 08/28/25 Elsa Vazquez [address] [place] [address] Nurse Navigator Oncology 06/05/25 07/19/25 Angie [place], ROLDAN [address] [place], [place] [address] Nurse Navigator Oncology 06/26/25 documented as of this encounter
--- OUTSIDE RECORDS SUMMARY | 2025-09-30 11:42 | XMS_ITS | Encounter Summary ---
Author Organization [facility] nter Address [address] [place] [address] Care Team Providers Care Clerk Secretary Name Role Phone Rachel Pagan MD Unavailable [phone] Yesy Acuna RN Unavailable [phone] Pati Rucker CADASTRAL SURVEYOR Unavailable [phone] Sosa Gardner CADASTRAL SURVEYOR Unavailable [phone] Italo Camejo BLANKET CUTTING MACHINE OPERATOR Primary Care Provider [phone] Linda Elizabeth DO Unavailable Lizandro Khan BLANKET CUTTING MACHINE OPERATOR Primary Care Provider [phone] Elsa Vazquez Unavailable Unavailable Angie Murray RN Unavailable Unavailab Lizandro Islas BLANKET CUTTING MACHINE OPERATOR Primary Care Provider [phone] Encounter Details Date Type Department Care Team (Late st Contact Info) Description 10/25/2024 Orders Only [facility] [address], 10th [place] [address] Rachel Pagan MD [address] [place] [address] Social History Tobacco Use Types Packs/Day Years Used Date Smoking Tobacco: Every Day Cigarettes 0.5 30 Passive Smoke Exposure: Current Smokeless Tobacco: Never Comments:Offered patient an appointment at the health department for smoking cessation classes. Patient declined. Alcohol Use Standard Drinks/Week Comments Never 0 (1 standard drink = 0.6 oz pur e alcohol) [facility] Utilities Answer Date Recorded In the past [...] often do you attend chur ch or episcopal services? More than 4 times per year [...] 1:00 PM EST Sexual Orientation Straight 01/21/2022 1 :00 PM EST documented as of this encounter [...] Description 10/04/2025 8:45 AM EST Office Visit [facility] [address], 10th [place] [address] Rachel Pagan MD [address] [place] [address] 10/10/2025 10:30 AM EST Appointment [facility] MEDICAL ONCOLOGY [address], 11th [place] [address] 11/02/2025 9:30 AM EST Office Visit [facility]ARDI[facility] [address], 1st [place] [address] Ky Jewell MD [address] [place] [address] 11/05/2025 2:45 PM EST Office Visit [facility] NEUR[facility]Y [facility] [address], 8th [place] [address] Ruddy Mayes MD [address] [facility] [address] 12/31/2025 11:30 AM EST Office Visit [facility] [address] [place], [place] [phone] 01/22/2026 9:00 AM EDT Office Visit [facility] [address], 1st [place] [address] Allyn Toribio NP [address] [id number] documented as of this encounter Visit Diagnoses [...] documented as of this encounter Care Teams Clerk Secretary Relationship Specialty Start Date End Date Italo Camejo NP [address] [facility], [address] [place] [address] PCP - General Family Medicine 09/24/23 03/19/25 Lizandro Khan NP [address] [place] [address] PCP - General Family Medicine 03/20/25 07/22/25 Lizandro Khan NP [address] [place] [address] PCP - General Family Medicine 07/23/25 Rachel Pagan MD [address] [place], [place] [phone] Consulting Physician Oncology 11/11/22 Yesy Acuna RN [address] [place], [place] [address] Nurse Navigator 11/12/22 03/05/25 Pati Rucker APRN [address] [place], [place] [phone] Nurse Practitioner Oncology 12/21/22 Sosa Gardner APRN [address] [place], [place] [phone] Nurse Practitioner Oncology 06/24/23 Linda Elizabeth DO [address] [place], [place] [address] Consulting Physician Oncology 03/01/25 08/28/25 Elsa Vazquez [address] [place] [address] Nurse Navigator Oncology 06/05/25 07/19/25 Angie Murray RN [address] [place] [address] Nurse Navigator Oncology 06/26/25 documented as of this encounter
--- OUTSIDE RECORDS SUMMARY | 2025-09-30 11:42 | XMS_ITS | Encounter Summary ---
Author Organization [facility] nter Address [address] [place] [address] Care Team Providers Care Clinical Scientist Name Role Phone Rachel Pagan MD Unavailable [phone] Pati Rucker COMPOSITE BOND TECHNICIAN Unavailable [phone] Sosa Gardner COMPOSITE BOND TECHNICIAN Unavailable [phone] Linda Elizabeth DO Unavailable Angie Murray RN Unavailable Unavailab Lizandro Islas NP Primary Care Provider [phone] Reason for Visit * Reason Onset Date Comments Med Refill 08/16/2025 Encounter Details Date Type Department Care Team (Late st Contact Info) Description 08/16/2025 Telephone [facility] PHOSPHORIC ACID SUPERVISOR/REHAB PRACTICE [address], 8th [place] [phone] Bri Hogue [address] [place] [address] Med Refill Social History Tobacco Use Types [...] in a correction (including now)? No 11/11/2022 [facility] - Personal Safety Answer Date [...] for daily living? No 06/23/2025 [facility] Utilities Answer Date Recorded In [...] States they will be going back to [facility]. #- . documented in this encounter Plan of Treatment Upcoming Encounters Date Type Department Care Team (Late st Contact Info) Description 10/04/2025 8:45 AM EST Office Visit [facility] [address], 10th [place] [phone] Rachel Pagan MD [address] [place] [address] 10/10/2025 10:30 AM EST Appointment [facility] MEDICAL ONCOLOGY [address], [address] [place] [address] 11/02/2025 9:30 AM EST Office Visit [facility] CARDIOLOGY PRACT[facility] [address], [address]st [place] [address] Ky Jewell MD [address] [place], [place] [phone] 11/05/2025 2:45 PM EST Office Visit [facility] NEUROLOGY PRACTICE [address], [address] [place] [address] Ruddy Mayes MD [address] [place] [address] 12/31/2025 11:30 AM EST Office Visit [facility] NEPHR[facility] [address] [phone] 01/22/2026 9:00 AM EDT Office Visit [facility] [address], [address] [place] [phone] Allyn Toribio NP [address] [place] [address] documented as of this encounter Goals Goal Patient Goal Type Associated Problems Recent Progress Patient-Stated? Author Patient's support system will participate in treatment General Emily Ny documented as of this encounter Visit Diagnoses Not on filedocumented in this encounter Additional Health Concerns Assessment Noted Time PHQ-9 Depression Total Score: 0 06/23/20 25 10:00 AM EDT documented as of this encounter Care Teams Clinical Scientist Relationship Specialty Start Date End Date Lizandro Khan NP [address] [place] [address] PCP - General Family Medicine 07/23/25 Rachel Pagan MD [address] [place] [address] Consulting Physician Oncology 11/11/22 Pati Rucker APRN [address] [place] [address] Nurse Practitioner Oncology 12/21/22 Sosa Gardner APRN [address] [facility] [place] [address] Nurse Practitioner Oncology 06/24/23 Linda Elizabeth DO [address] [facility] [place] [address] Consulting Physician Oncology 03/01/25 08/28/25 Angie Murray, ROLDAN [address] [place] [address] Nurse Navigator Oncology 06/26/25 documented as of this encounter
--- OUTSIDE RECORDS SUMMARY | 2025-09-30 11:42 | XMS_ITS | Encounter Summary ---
Author Organization [facility] nter Address [address] [place] [address] Care Team Providers Care Supervisor Paper Products Name Role Phone Rachel Pagan MD Unavailable [phone] Yesy Acuna RN Unavailable [phone] Pati Rucker COOLER SERVICE SUPERVISOR Unavailable [phone] Sosa Gardner COOLER SERVICE SUPERVISOR Unavailable [phone] Italo Camejo COBOL MAINFRAME DEVELOPER Primary Care Provider [phone] Linda Elizabeth DO Unavailable Lizandro Khan COBOL MAINFRAME DEVELOPER Primary Care Provider [phone] Elsa Vazquez Unavailable Unavailable Angie Murray RN Unavailable Unavailab Lizandro Islas COBOL MAINFRAME DEVELOPER Primary Care Provider [phone] Encounter Details Date Type Department Care Team (Late st Contact Info) Description 07/05/2024 Orders Only [facility] [address], 10th [place] [address] Rachel Pagan MD [address] [place] [address] Non-small cell cancer of right lung Social History Tobacco Use Types Packs/Day Years Used Date Smoking Tobacco: Every Day Cigarettes 0.5 30 Passive Smoke Exposure: Current Smokeless Tobacco: Never Comments:Offered patient an appointment at the health department for smoking cessation classes. Patient declined. Alcohol Use Standard Drinks/Week Comments Never 0 (1 standard drink = 0.6 oz pur e alcohol) [facility] Utilities [...] How often do you attend [facility] or advent services? More than 4 times per year 11/11/2022 Do you belong to any clubs o r organizations such as rastafari groups, unions, fraternal or athletic groups, or [...] Description 10/04/2025 8:45 AM EST Office Visit [facility] [address], 10th [place] [address] Rachel Pagan MD [address] [place] [address] 10/10/2025 10:30 AM EST Appointment [facility] MEDICAL ONCOLOGY [address], 11th [place] [address] 11/02/2025 9:30 AM EST Office Visit [facility] [address], [address] [place] [address] Ky Jewell MD [address] [place] [address] 11/05/2025 2:45 PM EST Office Visit [facility]UR[facility] [address], 8th [place] [address] Ruddy Mayes MD [address] [facility] [place] [address] 12/31/2025 11:30 AM EST Office Visit [facility] [address] [place] [address] 01/22/2026 9:00 AM EDT Office Visit [facility] [address], 1st Floor [facility] [place] [address] Allyn Toribio NP [address] [place] [address] documented as of this encounter [...] 3.8 - 11.0 10*3/uL 07/05/2024 10:36 AM [facility] RBC 4.11 3.73 - 5.13 10*6/uL 07/05[facility]2024 10:[facility] Hemoglobin 13.2 11.2 - 15.3 g/dL 07/05/2024 10:36 AM [facility] Hematocrit 38.7 32.6 - 44.6 % 07/05/2024 10:36 AM [facility] MCV 94.0 78.8 - 96.0 fL 07/05/2024 10:[facility] MCH 32.1 26.2 - 33.0 pg 07/05/2024 10:36 AM [facility] MCHC 34.2 32.7 - 35.1 g/dL 07/05/2024 10:36 AM [facility] RDW 15.2 12.1 - 16.1 % 07/05/2024 10:36 AM [facility] MPV 8.4 7.0 - 10.6 fL 07/05/2024 10:36 AM [facility] Neutrophils % 55 47 - 79 % 07/05/2024 10:36 AM [facility] Lymphocytes % 27 13 - 41 % 07/05/2024 10:36 AM [facility] Monocytes % 7 3 - 11 % 07/05/2024 10:36 AM [facility] Eosinophils % 9(H) 0 - 6 % 07/05/2024 10:36 AM [facility] Basophils % 2 0 - 2 % 07/05/2024 10:36 AM [facility] Neutrophils Absolute 4.90 1.90 - 7.50 10*3/uL 07/05/2024 10:36 AM [facility] Lymphocytes Absolute 2.40 0.80 - 3.20 10*3/uL 07/05/2024 10:36 AM [facility] Monocytes Absolute 0.60 0.10 - 0.90 10*3/uL 07/05/2024 10:36 AM [facility] Eosinophils Absolute 0.80(H) 0.00 - 0.40 10*3/uL 07/05/2024 10:36 AM [facility] Basophils Absolute 0.20 0.00 - 0.20 10*3/uL 07/05/2024 10:36 AM [facility] Platelets 211 138 - 402 10*3/uL 07/05/2024 10:36 AM [facility] Blood Venous blood specimen / Unknown Existing Catheter / Unknown 07/05/2024 9:42 AM EDT 07/05/2024 10:22 AM EDT us Rachel Soriano MD LAB BLOOD ORDERABLES Final Result [facility] [address] [place] [address], * (ABNORMAL) Comprehensive metabolic panel (07/05/2024 9:42 AM EDT) Sodium 144 133 - 144 mmol/L 07/05/2024 11:01 AM [facility] Potassium 4.0 3.6 - 5.2 mmol/L 07/05/2024 11:01 AM [facility] Chloride 116(H) 98 - 107 mmol/L 07/05/2024 11:01 AM [facility] CO2 20(L) 21 - 32 mmol/L 07/05/2024 11:01 AM [facility] Anion Gap 8 5 - 15 mmol/L 07/05/2024 11:01 AM [facility] BUN 11 7 - 18 mg/dL 07/05/2024 11:01 AM [facility] Creatinine 1.00 0.55 - 1.02 mg/dL 07/05/2024 11:01 AM [facility] BUN/Creatinine Ratio 11.00 10.00 - 20.00 ratio 07/05/2024 11:01 AM [facility] Glucose 157(H) 70 - 110 mg/dL 07/05/2024 11:01 AM [facility] Calcium 8.6 8.5 - 10.1 mg/dL 07/05/2024 11:01 AM [facility] AST 18 15 - 37 U/L 07/05/2024 11:01 AM [facility] ALT (SGPT) 25 13 - 56 U/L 07/05/2024 11:01 AM [facility] Alkaline Phosphatase 128(H) 45 - 117 U/L 07/05/2024 11:01 AM [facility] Total Protein 6.0(L) 6.4 - 8.4 g/dL 07/05/2024 11:01 AM [facility] Albumin 2.7(L) 3.4 - 5.0 g/dL 07/05/2024 11:01 AM EDT [facility] Globulin, Total 3.3 2.4 - 4.8 g/dL 07/05/2024 11:01 AM EDT [facility] A/G Ratio 0.8 0.6 - 1.6 07/05/2024 11:01 AM EDT [facility] Total Bilirubin 0.5 0.0 - 1.0 mg/dL 07/05/2024 11:01 AM EDT [facility] eGFR (CKD-EPI) 59.3(L) >60.0 - 200.0 mL/min/1.7 3m*2 07/05/2024 11:01 AM EDT [facility] Blood Venous blood specimen / Unknown Existing Catheter / Unknown 07/05/2024 9:42 AM EDT 07/05/2024 10:25 AM EDT us Rachel Soriano MD LAB BLOOD ORDERABLES Final Result Performing Organization Address City/State/[facility] Co de Phone Number [facility] [address] [place] [address], documented in this encounter Visit Diagnoses Diagnosis [...] documented as of this encounter Care Teams Supervisor Paper Products Relationship Specialty Start Date End Date Italo Camejo NP [address], [address] [place] [address] PCP - General Family Medicine 09/24/23 03/19/25 Lizandro Khan NP [address] [place] [address] PCP - General Family Medicine 03/20/25 07/22/25 Lizandro Khan NP [address] [place] [address] PCP - General Family Medicine 07/23/25 Rachel Pagan MD [facility] [place] [phone] Consulting Physician Oncology 11/11/22 Yesy Acuna, RN [address] [place] [address] Nurse Navigator 11/12/22 03/05/25 Pati Rucker APRN [address] [place] [address] Nurse Practitioner Oncology 12/21/22 Sosa Gardner APRN [address] [place] [address] Nurse Practitioner Oncology 06/24/23 Linda Elizabeth DO [address] [place] [address] Consulting Physician Oncology 03/01/25 08/28/25 Elsa Vazquez [address] [place] [address] Nurse Navigator Oncology 06/05/25 07/19/25 Angie Murray, ROLDAN [address] [place] [address] Nurse Navigator Oncology 06/26/25 documented as of this encounter
--- OUTSIDE RECORDS SUMMARY | 2025-09-30 11:43 | XMS_ITS | Encounter Summary ---
Author Organization [facility] nter Address [address] [place] [address] Care Team Providers Care Communications Representative Name Role Phone Lizandro Khan CLINICAL APPLICATION SPECIALIST Primary Care Provider [phone] Rachel Pagan MD Unavailable [phone] Yesy Acuna RN Unavailable [phone] CLINICAL APPLICATION SPECIALIST Primary Care Provider [phone] Pati Rucker MARINE ERECTOR Unavailable [phone] Sosa Gardner MARINE ERECTOR Unavailable [phone] Italo Camejo CLINICAL APPLICATION SPECIALIST Primary Care Provider [phone] Linda Elizabeth DO Unavailable Lizandro Khan CLINICAL APPLICATION SPECIALIST Primary Care Provider [phone] Elsa Vazquez Unavailable Unavailable Angie Murray RN Unavailable Unavailab Lizandro Islas CLINICAL APPLICATION SPECIALIST Primary Care Provider [phone] Encounter Details Date Type Department Care Team (Late st Contact Info) Description 12/02/2022 Orders Only [facility] [address], 10th [place] [address] Rachel Pagan MD [address] [place] [address] Social History Tobacco Use Types Packs/Day [...] you attend [facility] or buddhist services? More than 4 [...] a long term (including now)? No 11/11/2022 Comments No Sex [...] PRACTICE [address], 10th [place] [address] Rachel Pagan MD [address] [place] [address] 10/10/2025 10:30 AM EST Appointment [facility] [address], 11th [place] [address] 11/02/2025 9:30 AM EST Office Visit [facility] [address], [address] [place] [address] Ky Jewell MD [address] [place] [address] 11/05/2025 2:45 PM EST Office Visit [facility] [address], 8th [place] [address] Ruddy Mayes MD [address] [place] [address] 12/31/2025 11:30 AM EST Office Visit [facility] [address] [phone] 01/22/2026 9:00 AM EDT Office Visit [facility] [address], 1st [place] [address] Allyn Toribio NP [address] [place] [phone] documented as of this encounter Visit Diagnoses [...] documented as of this encounter Care Teams Communications Representative Relationship Specialty Start Date End Date Lizandro Khan NP [address] [place] [address] PCP - General 12/09/22 [address] NP [address] [place] [phone] PCP - General Family Medicine 12/10/22 09/23/23 Italo Camejo NP [address] [place] [address], [address] [place] [address] PCP - General Family Medicine 09/24/23 03/19/25 Lizandro Khan NP [address] [place] [address] PCP - General Family Medicine 03/20/25 07/22/25 Lizandro Khan NP [address] [place] [address] PCP - General Family Medicine 07/23/25 Rachel Pagan MD [facility] [address] [facility] [place] [address] Consulting Physician Oncology 11/11/22 Yesy Acuna, ROLDAN [address] [place] [phone] Nurse Navigator 11/12/22 03/05/25 Pati Rucker APRN [facility] [address] [facility] [place] [address] Nurse Practitioner Oncology 12/21/22 Sosa Gardner APRN [address] [place] [address] Nurse Practitioner Oncology 06/24/23 Linda Elizabeth DO [address] [place] [address] Consulting Physician Oncology 03/01/25 08/28/25 Elsa Vazquez [address] [place] [address] Nurse Navigator Oncology 06/05/25 07/19/25 Angie Murray, ROLDAN [address] [place] [address] Nurse Navigator Oncology 06/26/25 documented as of this encounter
--- OUTSIDE RECORDS SUMMARY | 2025-09-30 11:43 | XMS_ITS | Encounter Summary ---
Author Organization [facility] nter Address [address] [place] [address] Care Team Providers Care Irrigator Overhead Name Role Phone Rachel Pagan MD Unavailable [phone] Yesy Acuna RN Unavailable [phone] Pati Rucker CABINET WORKER Unavailable [phone] Sosa Gardner CABINET WORKER Unavailable [phone] Italo Camejo DOORPERSON OR LUGGAGE PORTER Primary Care Provider [phone] Linda Elizabeth DO Unavailable Lizandro Khan DOORPERSON OR LUGGAGE PORTER Primary Care Provider [phone] Elsa Vazquez Unavailable Unavailable Angie Murray RN Unavailable Unavailab Lizandro Islas DOORPERSON OR LUGGAGE PORTER Primary Care Provider [phone] Encounter Details Date Type Department Care Team (Late st Contact Info) Description 07/26/2024 Orders Only [facility] [address], 10th [place] [address] Rachel Pagan MD [address] [place] [address] Non-small cell cancer of right lung Social History Tobacco Use Types Packs/Day Years Used Date Smoking Tobacco: Every Day Cigarettes 0.5 30 Passive Smoke Exposure: Current Smokeless Tobacco: Never Comments:Offered patient an appointment at the health department for smoking cessation classes. Patient declined. Alcohol Use Standard Drinks/Week Comments Never 0 (1 standard drink = 0.6 oz pur e alcohol) [facility] Utilities Answer Date Recorded In the [...] week 11/11/2022 How often do you attend [facility] or jain services? More than 4 times per year [...] ONCOLOGY PRACTICE [address], 10th [place] [address] Rachel Pagan MD [address] [place] [address] 10/10/2025 10:30 AM EST Appointment [facility] MEDICAL ONCOL[facility]Y [address], 11th [place] [address] 11/02/2025 9:30 AM EST Office Visit [facility] [address], [address] [place] [address] Ky Jewell MD [address] [place] [address] 11/05/2025 2:45 PM EST Office Visit [facility] NEUR[facility] [address], 8th [place] [address] Ruddy Mayes MD [address] [facility] [place] [address] 12/31/2025 11:30 AM EST Office Visit [facility] NEPHROLOGY [facility] [address] [place] [address] 01/22/2026 9:00 AM EDT Office Visit [facility] C[facility]ACT[facility] [address], 1st Floor [place] [facility] [place] [address] Allyn Toribio NP [address] [place] [address] documented as of this encounter [...] 3.8 - 11.0 10*3/uL 07/26/2024 10:20 AM [facility] RBC 4.12 3.73 - 5.13 10*6/uL 07/26/2024 10:20 AM [facility] Hemoglobin 13.2 11.2 - 15.3 g/dL 07/26/2024 10:20 AM [facility] Hematocrit 39.0 32.6 - 44.6 % 07/26/2024 10:20 AM [facility] MCV 94.7 78.8 - 96.0 fL 07/26/2024 10:20 [facility] MCH 32.1 26.2 - 33.0 pg 07/26/2024 10:20 AM [facility] MCHC 33.8 32.7 - 35.1 g/dL 07/26/2024 10:20 AM [facility] RDW 14.6 12.1 - 16.1 % 07/26/2024 10:20 AM [facility] MPV 8.3 7.0 - 10.6 fL 07/26/2024 10:20 AM [facility] Neutrophils % 57 47 - 79 % 07/26/2024 10:20 AM [facility] Lymphocytes % 27 13 - 41 % 07/26/2024 10:20 AM [facility] Monocytes % 6 3 - 11 % 07/26/2024 10:20 AM [facility] Eosinophils % 9(H) 0 - 6 % 07/26/2024 10:20 AM [facility] Basophils % 1 0 - 2 % 07/26/2024 10:20 AM [facility] Neutrophils Absolute 3.80 1.90 - 7.50 10*3/uL 07/26/2024 10:20 AM [facility] Lymphocytes Absolute 1.80 0.80 - 3.20 10*3/uL 07/26/2024 10:20 AM [facility] Monocytes Absolute 0.40 0.10 - 0.90 10*3/uL 07/26/2024 10:20 AM [facility] Eosinophils Absolute 0.60(H) 0.00 - 0.40 10*3/uL 07/26/2024 10:20 AM [facility] Basophils Absolute 0.10 0.00 - 0.20 10*3/uL 07/26/2024 10:20 AM [facility] Platelets 205 138 - 402 10*3/uL 07/26/2024 10:20 AM [facility] Blood Venous blood specimen / Unknown Existing Catheter / Unknown 07/26/2024 9:46 AM EDT 07/26/2024 10:08 AM EDT us Rachel Soriano MD LAB BLOOD ORDERABLES Final Result [facility] [address] [place] [address], * (ABNORMAL) Comprehensive metabolic panel (07/26/2024 9:46 AM EDT) Sodium 142 133 - 144 mmol/L 07/26/2024 10:36 AM [facility] Potassium 4.0 3.6 - 5.2 mmol/L 07/26/2024 10:36 AM [facility] Chloride 113(H) 98 - 107 mmol/L 07/26/2024 10:36 AM [facility] CO2 26 21 - 32 mmol/L 07/26/2024 10:36 AM [facility] Anion Gap 3(L) 5 - 15 mmol/L 07/26/2024 10:36 AM [facility] BUN 11 7 - 18 mg/dL 07/26/2024 10:36 AM [facility] Creatinine 1.20(H) 0.55 - 1.02 mg/dL 07/26/2024 10:36 AM [facility] BUN/Creatinine Ratio 9.17(L) 10.00 - 20.00 ratio 07/26/2024 10:36 AM [facility] Glucose 160(H) 70 - 110 mg/dL 07/26/2024 10:36 AM [facility] Calcium 8.7 8.5 - 10.1 mg/dL 07/26/2024 10:36 AM [facility] AST 17 15 - 37 U/L 07/26/2024 10:36 AM [facility] ALT (SGPT) 22 13 - 56 U/L 07/26/2024 10:36 AM [facility] Alkaline Phosphatase 120(H) 45 - 117 U/L 07/26/2024 10:36 AM [facility] Total Protein 5.9(L) 6.4 - 8.4 g/dL 07/26/2024 10:36 AM [facility] Albumin 2.6(L) 3.4 - 5.0 g/dL 07/26/2024 10:36 AM EDT [facility] Globulin, Total 3.3 2.4 - 4.8 g/dL 07/26/2024 10:36 AM EDT [facility] A/G Ratio 0.8 0.6 - 1.6 07/26/2024 10:36 AM EDT [facility] Total Bilirubin 0.3 0.0 - 1.0 mg/dL 07/26/2024 10:36 AM EDT [facility] eGFR (CKD-EPI) 47.5(L) >60.0 - 200.0 mL/min/1.7 3m*2 07/26/2024 10:36 AM EDT [facility] Blood Venous blood specimen / Unknown Existing Catheter / Unknown 07/26/2024 9:46 AM EDT 07/26/2024 10:08 AM EDT Rachel Soriano MD LAB BLOOD ORDERABLES Final Result Performing Organization Address City/State/[facility] Co de Phone Number [facility] [address] [place] [address], documented in this encounter Visit Diagnoses Diagnosis [...] documented as of this encounter Care Teams Irrigator Overhead Relationship Specialty Start Date End Date Italo Camejo NP [address] [facility], [address] [place] [address] PCP - General Family Medicine 09/24/23 03/19/25 Lizandro Khan NP [address] [place] [address] PCP - General Family Medicine 03/20/25 07/22/25 Lizandro Khan NP [address] [place] [address] PCP - General Family Medicine 07/23/25 Rachel Pagan MD [facility] [address] [facility] [place] [address] Consulting Physician Oncology 11/11/22 Yesy Acuna, RN [address] [place] [address] Nurse Navigator 11/12/22 03/05/25 Pati Rucker APRN [address] [place] [address] Nurse Practitioner Oncology 12/21/22 Sosa Gardner APRN [address] [place] [address] Nurse Practitioner Oncology 06/24/23 Linda Elizabeth DO [address] [place] [address] Consulting Physician Oncology 03/01/25 08/28/25 Elsa Vazquez [address] [place] [address] Nurse Navigator Oncology 06/05/25 07/19/25 Angie Murray, ROLDAN [address] [place] [address] Nurse Navigator Oncology 06/26/25 documented as of this encounter
--- OUTSIDE RECORDS SUMMARY | 2025-09-30 11:43 | XMS_ITS | Encounter Summary ---
Author Organization Healthcare Address [address] [place] [address] Care Team Providers Care Sales Leader Name Role Phone Lizandro Khan APRN Primary Care Provider [phone] Encounter Details Date Type Department Care Team ([facility] Contact Info) Description 08/22/2025 Orders Only External Location [address] [place] [address] Kal Wall MD [address] [facility] [address] [place] [phone] Social History Tobacco Use Types Packs/Day Years [...] Month) No 08/22/2025 7:25 AM EDT Evelyne Gudino, RN 6. Suicidal Behavior (Lifetime) No 7:25 AM EDT Meghan Gudino, RN documented as of this encounter Plan of Treatment Upcoming Encounters Date Type Department Care Team (Late st Contact Info) Description 10/18/2025 9:30 AM EST Office Visit [place] [facility] [address], 1st [place] [address] Pepe Cabrera MD [address] [place] [address] documented as of this encounter Procedures Procedure Name Priority Date/Time Associated Diagnosis Comments CT OUTSIDE IMAGES 08/22/2025 2:21 AM EDT documented in this encounter Results * CT OUTSIDE IMAGES (08/22/2025 2:21 AM EDT) Anatomical Region Laterality Modality Computed Tomogra phy 08/22/2025 2:21 AM EDT us Kal Wall MD IMG CT PROCEDURES Edited Resul t - Final documented in this encounter Visit Diagnoses Not on filedocumented in this encounter Additional Health Concerns Assessment Noted Time A fall risk assessment has been complete d for the patient 07/26/2025 3:13 PM EDT A Body Mass Index follow-up plan has been documented for the patient 07/26/2025 3:46 PM EDT documented as of this encounter Care Teams Sales Leader Relationship Specialty Start Date End Date Lizandro Khan APRN [address] [place] [address] PCP - General 08/22/25 documented as of this encounter
--- OUTSIDE RECORDS SUMMARY | 2025-09-30 11:43 | XMS_ITS | Encounter Summary ---
Author Organization Healthcare Address [address] [place] [address] Care Team Providers Care Cable Former Name Role Phone Lizandro Khan APRN Primary Care Provider [phone] Encounter Details Date Type Department Care Team ([facility] Contact Info) Description 08/22/2025 Orders Only External Location [address] [place] [address] Kal Wall MD [address] [facility] [address] [place] [phone] Social History Tobacco Use Types Packs/Day Years [...] Visit [place] [facility] [address], 1st [place] [address] Pepe Cabrera MD [address] [place] [address] documented as of this encounter Procedures Procedure Name Priority Date/Time Associated Diagnosis Comments CT OUTSIDE IMAGES 08/22/2025 2:23 AM EDT documented in this encounter Results * CT OUTSIDE IMAGES (08/22/2025 2:23 AM EDT) Anatomical Region Laterality Modality Computed [...] documented as of this encounter Care Teams Cable Former Relationship Specialty Start Date End Date Lizandro Khna APRN [address] [place] [address] PCP - General 08/22/25 documented as of this encounter
--- OUTSIDE RECORDS SUMMARY | 2025-09-30 11:43 | XMS_ITS | Encounter Summary ---
Author Organization [facility] nter Address [address] [place] [address] Care Team Providers Care Director Of Optimization Name Role Phone Rachel Pagan MD Unavailable [phone] Yesy Acuna RN Unavailable [phone] Pati Rucker RESIDENTIAL LEASING MANAGER Unavailable [phone] Sosa Gardner RESIDENTIAL LEASING MANAGER Unavailable [phone] Italo Camejo MEDIATION COMMISSIONER Primary Care Provider [phone] Linda Elizabeth DO Unavailable Lizandro Khan MEDIATION COMMISSIONER Primary Care Provider [phone] Elsa Vazquez Unavailable Unavailable Angie Murray RN Unavailable Unavailab Lizandro Islas MEDIATION COMMISSIONER Primary Care Provider [phone] Encounter Details Date Type Department Care Team (Late st Contact Info) Description 08/09/2024 Orders Only [facility]ACT[facility] [address], 10th [place] [address] Rachel Pagan MD [address] [place] [address] Non-small cell cancer of right lung Social History Tobacco Use Types Packs/Day Years Used Date Smoking Tobacco: Every Day Cigarettes 0.5 30 Passive Smoke Exposure: Current Smokeless Tobacco: Never Comments:Offered patient an appointment at the health department for smoking cessation classes. Patient declined. Alcohol Use Standard Drinks/Week Comments Never 0 (1 standard drink = 0.6 oz pur e alcohol) [facility] Utilities Answer Date Recorded In the past [...] How often do you attend [facility] or religion services? More than 4 times per year 11/11/2022 Do you belong to any clubs o r organizations such as jehovah's witness groups, unions, fraternal or athletic groups, or [...] ONCOLOGY PRACTICE [address], 10th [place] [address] Rachel Pagan MD [address] [place] [address] 10/10/2025 10:30 AM EST Appointment [facility] MEDICAL ONCOLOGY [address], 11th [place] [address] 11/02/2025 9:30 AM EST Office Visit [facility] [address], [address] [place] [address] Ky Jewell MD [address] [place] [address] 11/05/2025 2:45 PM EST Office Visit [facility] NEUR[facility] [address], 8th [place] [address] Ruddy Mayes MD [address] [facility] [place] [address] 12/31/2025 11:30 AM EST Office Visit [facility] [address] [place] [address] 01/22/2026 9:00 AM EDT Office Visit [facility] [address], 1st [address] [place] [facility] [place] [address] Allyn Toribio NP [address] [place] [address] documented as of this encounter [...] 3.8 - 11.0 10*3/uL 08/09/2024 9:46 AM [facility] RBC 4.18 3.73 - 5.13 10*6/uL 08/09/2024 9:46 AM [facility] Hemoglobin 13.6 11.2 - 15.3 g/dL 08/09/2024 9:46 AM [facility] Hematocrit 39.9 32.6 - 44.6 % 08/09/2024 9:46 AM [facility] MCV 95.5 78.8 - 96.0 fL 08/09/2024 9:[facility] MCH 32.5 26.2 - 33.0 pg 08/09/2024 9:46 AM [facility] MCHC 34.1 32.7 - 35.1 g/dL 08/09/2024 9:46 AM [facility] RDW 14.1 12.1 - 16.1 % 08/09/2024 9:46 AM [facility] MPV 8.3 7.0 - 10.6 fL 08/09/2024 9:46 AM [facility] Neutrophils % 60 47 - 79 % 08/09/2024 9:46 AM [facility] Lymphocytes % 27 13 - 41 % 08/09/2024 9:46 AM [facility] Monocytes % 6 3 - 11 % 08/09/2024 9:46 AM [facility] Eosinophils % 7(H) 0 - 6 % 08/09/2024 9:46 AM [facility] Basophils % 1 0 - 2 % 08/09/2024 9:46 AM [facility] Neutrophils Absolute 5.20 1.90 - 7.50 10*3/uL 08/09/2024 9:46 AM [facility] Lymphocytes Absolute 2.30 0.80 - 3.20 10*3/uL 08/09/2024 9:46 AM [facility] Monocytes Absolute 0.50 0.10 - 0.90 10*3/uL 08/09/2024 9:46 AM [facility] Eosinophils Absolute 0.60(H) 0.00 - 0.40 10*3/uL 08/09/2024 9:46 AM [facility] Basophils Absolute 0.10 0.00 - 0.20 10*3/uL 08/09/2024 9:46 AM [facility] Platelets 203 138 - 402 10*3/uL 08/09/2024 9:46 AM [facility] Blood Venous blood specimen / Unknown Existing Catheter / Unknown 08/09/2024 9:16 AM EDT 08/09/2024 9:32 AM EDT us Rachel Soriano MD LAB BLOOD ORDERABLES Final Result [facility] [address] [place] [address], * (ABNORMAL) Comprehensive metabolic panel (08/09/2024 9:16 AM ED) Sodium 141 133 - 144 mmol/L 08/09/2024 10:05 AM [facility] Potassium 4.0 3.6 - 5.2 mmol/L 08/09/2024 10:05 AM [facility] Chloride 112(H) 98 - 107 mmol/L 08/09/2024 10:05 AM [facility] CO2 26 21 - 32 mmol/L 08/09/2024 10:05 AM [facility] Anion Gap 3(L) 5 - 15 mmol/L 08/09/2024 10:05 AM [facility] BUN 15 7 - 18 mg/dL 08/09/2024 10:05 AM [facility] Creatinine 1.20(H) 0.55 - 1.02 mg/dL 08/09/2024 10:05 AM [facility] BUN/Creatinine Ratio 12.50 10.00 - 20.00 ratio 08/09/2024 10:05 AM [facility] Glucose 149(H) 70 - 110 mg/dL 08/09/2024 10:05 AM [facility] Calcium 8.6 8.5 - 10.1 mg/dL 08/09/2024 10:05 AM [facility] AST 16 15 - 37 U/L 08/09/2024 10:05 AM [facility] ALT (SGPT) 23 13 - 56 U/L 08/09/2024 10:05 AM [facility] Alkaline Phosphatase 117 45 - 117 U/L 08/09/2024 10:05 AM [facility] Total Protein 5.8(L) 6.4 - 8.4 g/dL 08/09/2024 10:05 AM [facility] Albumin 2.6(L) 3.4 - 5.0 g/dL 08/09/2024 10:05 AM EDT [facility] Globulin, Total 3.2 2.4 - 4.8 g/dL 08/09/2024 10:05 AM EDT [facility] A/G Ratio 0.8 0.6 - 1.6 08/09/2024 10:05 AM EDT [facility] Total Bilirubin 0.4 0.0 - 1.0 mg/dL 08/09/2024 10:05 AM EDT [facility] eGFR (CKD-EPI) 47.5(L) >60.0 - 200.0 mL/min/1.7 3m*2 08/09/2024 10:05 AM EDT [facility] Blood Venous blood specimen / Unknown Existing Catheter / Unknown 08/09/2024 9:16 AM EDT 08/09/2024 9:34 AM EDT us Rachel Soriano MD LAB BLOOD ORDERABLES Final Result Performing Organization Address City/State/[facility] Co de Phone Number [facility] [address] [place] [address], documented in this encounter Visit Diagnoses Diagnosis [...] of this encounter Care Teams Director Of Optimization Relationship Specialty Start Date End Date Italo Camejo NP [address] [facility], [address] [place] [address] PCP - General Family Medicine 09/24/23 03/19/25 Lizandro Khan NP [address] [place] [address] PCP - General Family Medicine 03/20/25 07/22/25 Lizandro Khan NP [address] [place] [address] PCP - General Family Medicine 07/23/25 Rachel Pagan MD [facility] [place] [address] Consulting Physician Oncology 11/11/22 Yesy Acuna, RN [address] [place] [address] Nurse Navigator 11/12/22 03/05/25 Pati Rucker APRN [address] [place] [address] Nurse Practitioner Oncology 12/21/22 Sosa Gardner APRN [address] [place] [address] Nurse Practitioner Oncology 06/24/23 Linda Elizabeth DO [address] [place] [address] Consulting Physician Oncology 03/01/25 08/28/25 Elsa Vazquez [address] [place] [address] Nurse Navigator Oncology 06/05/25 07/19/25 Angie Murray, ROLDAN [address] [place] [address] Nurse Navigator Oncology 06/26/25 documented as of this encounter
--- OUTSIDE RECORDS SUMMARY | 2025-09-30 11:44 | XMS_ITS | Encounter Summary ---
Author Organization Healthcare Address [address] [place] [address] Care Team Providers Care Test Specialist Name Role Phone Lizandro Khan APRN Primary Care Provider [phone] Encounter Details Date Type Department Care Team (Latest Contact Info) Description 08/22/2025 Travel Social History Tobacco Use Types Packs/Day [...] Visit [place] [facility] [address], 1st [place] [address] Pepe Cabrera MD [address] [place] [address] documented as of this encounter Visit Diagnoses Not on filedocumented in this encounter Additional Health Concerns Assessment Noted Time A fall risk assessment has been complete d for the patient 07/26/2025 3:13 PM EDT A Body Mass Index follow-up plan has been documented for the patient 07/26/2025 3:46 PM EDT documented as of this encounter Care Teams Test Specialist Relationship Specialty Start Date End Date Lizandro Khan APRN [address] [place] [address] PCP - General 08/22/25 documented as of this encounter
--- OUTSIDE RECORDS SUMMARY | 2025-09-30 11:44 | XMS_ITS | Encounter Summary ---
Author Organization [facility] Address [address] [place] [address] Care Team Providers Care Biological Plant Operator Name Role Phone Lizandro Khan APRN Primary Care Provider [phone] Encounter Details Date Type Department Care Team (Late st Contact Info) Description 08/23/2025 Telephone [facility] Clinic [address] [place] [phone] Porsche, Surgeon, [address] [place], [place] [id number] Social History Tobacco Use Types Packs/Day Years [...] encounter Miscellaneous Notes * Telephone Encounter - Mliton Brasher - 08/23/2025 10:09 AM EDT Called pt to schedule ED follow up, pt answered. She agreed to time and date of appt along with mailed reminder. documented in this encounter Plan of Treatment Upcoming Encounters Date Type Department Care Team (Late Contact Info) Description 10/18/2025 9:30 AM EST Office Visit [place] [facility] [address], 1st [place] [address] Pepe Cabrera MD [address] [place] [address] documented as of this encounter Visit Diagnoses Not on filedocumented in this encounter Additional Health Concerns Assessment Noted Time A fall risk assessment has been complete d for the patient 07/26/2025 3:13 PM EDT A Body Mass Index follow-up plan has been documented for the patient 07/26/2025 3:46 PM EDT documented as of this encounter Care Teams Biological Plant Operator Relationship Specialty Start Date End Date Lizandro Khan APRN [address] [place] [address] PCP - General 08/22/25 documented as of this encounter
--- OUTSIDE RECORDS SUMMARY | 2025-09-30 11:44 | XMS_ITS | Encounter Summary ---
Author Organization Healthcare Address [address] [place] [address] Care Team Providers Care Dish Machine Operator Name Role Phone Lizandro Khan APRN Primary Care Provider [phone] Encounter Details Date Type Department Care Team (Latest Contact Info) Description 08/30/2025 Travel Social History Tobacco Use Types Packs/Day [...] Visit [place] [facility] [address], 1[address] [place] [address] Pepe Cabrera MD [address] [place] [address] documented as of this encounter Visit Diagnoses Not on filedocumented in this encounter Additional Health Concerns Assessment Noted Time A fall risk assessment has been complete d for the patient 07/26/2025 3:13 PM EDT A Body Mass Index follow-up plan has been documented for the patient 09/03/2025 7:42 AM EDT documented as of this encounter Care Teams Dish Machine Operator Relationship Specialty Start Date End Date Lizandro Khan APRN [address] [place] [address] PCP - General 08/22/25 documented as of this encounter
--- OUTSIDE RECORDS SUMMARY | 2025-09-30 11:44 | XMS_ITS | Encounter Summary ---
Author Organization Healthcare Address [address] [place] [address] Care Team Providers Care Unpaid Intern Name Role Phone Lizandro Khan APRN Primary Care Provider [phone] Encounter Details Date Type Department Care Team (Late Contact Info) Description 08/22/2025 Orders Only External Location [address] [place] [address] Provider, External Social History Tobacco Use Types [...] Wish to be (Past 1 Month) No 08/22/2025 7:25 AM EDT Meghan Gudino , RN 2. Non-Specific Active Suici allan Thoughts (Past 1 Month) No 08/22/2025 7:25 AM EDT Evelyne Gudino RN 6. Suicidal Behavior (Lifetime) No 7:25 AM EDT Meghan Gudino, RN documented as of this encounter Plan of Treatment Upcoming Encounters Date Type Department Care Team (Late Contact Info) Description 10/18/2025 9:30 AM EST Office [facility] [address] [place] [address] Pepe Cabrera MD [address] [place] [address] documented as of this encounter Procedures Procedure Name Priority Date/Time Associated Diagnosis Comments XR OUTSIDE IMAGES 08/22/2025 2:12 AM EDT documented in this encounter Results * XR OUTSIDE IMAGES (08/22/2025 2:12 AM EDT) Anatomical Region Laterality Modality Radiographic Sarah ging 08/22/2025 2:12 AM EDT us External Provider IMG XR PROCEDURES Edited Resul t - Final documented in this encounter Visit Diagnoses Not on filedocumented in this encounter Additional Health Concerns Assessment Noted Time A fall risk assessment has been complete d for the patient 07/26/2025 3:13 PM EDT A Body Mass Index follow-up plan has been documented for the patient 07/26/2025 3:46 PM EDT documented as of this encounter Care Teams Unpaid Intern Relationship Specialty Start Date End Date Lizandro Khan APRN [address] [place] [address] PCP - General 08/22/25 documented as of this encounter
--- OUTSIDE RECORDS SUMMARY | 2025-09-30 11:44 | XMS_ITS | Encounter Summary ---
Author Organization Healthcare Address [address] [place] [address] Care Team Providers Care Cylinder Honer Name Role Phone Lizandro Khan APRN Primary Care Provider [phone] Encounter Details Date Type Department Care Team (Late Contact Info) Description 08/22/2025 Orders Only External Location [address] [place] [address] Provider, External Social History Tobacco Use Types [...] [address] [place] [address] Pepe Cabrera MD [address] [place] [address] documented as of this encounter Procedures Procedure Name Priority Date/Time Associated Diagnosis Comments XR MSK OUTSIDE IMAGES 08/22/2025 2:12 AM EDT documented in this encounter Results * XR MSK OUTSIDE IMAGES (08/22/2025 2:12 [...] documented as of this encounter Care Teams Cylinder Honer Relationship Specialty Start Date End Date Lizandro Khan APRN [address] [place] [address] PCP - General 08/22/25 documented as of this encounter
--- OUTSIDE RECORDS SUMMARY | 2025-09-30 11:45 | XMS_ITS | Encounter Summary ---
Author Organization [facility] nter Address [address] [place] [address] Care Team Providers Care Shooter Helper Name Role Phone Rachel Pagan MD Unavailable [phone] Yesy Acuna RN Unavailable [phone] QA AUTOMATION ARCHITECT Primary Care Provider [phone] Pati Rucker DISPUTE COORDINATOR Unavailable [phone] Sosa Gardner DISPUTE COORDINATOR Unavailable Italo Camejo QA AUTOMATION ARCHITECT Primary Care Provider [phone] Linda Elizabeth DO Unavailable Lizandro Khan QA AUTOMATION ARCHITECT Primary Care Provider [phone] Elsa Vazquez Unavailable Unavailable Angie Murray RN Unavailable Unavailab Lizandro Islas QA AUTOMATION ARCHITECT Primary Care Provider [phone] Encounter Details Date Type Department Care Team (Late st Contact Info) Description 12/17/2022 Orders Only [facility] [address], 10th [place] [address] Rachel Pagan MD [address] [place] [address] Non-small cell lung cancer, unspecified [...] you attend [facility] or church services? More than 4 times per year [...] Description 10/04/2025 8:45 AM EST Office Visit [facility] [address], 10th [place] [address] Rachel Pagan MD [address] [place] [address] 10/10/2025 10:30 AM EST Appointment [facility] [address], 11th [place] [address] 11/02/2025 9:30 AM EST Office Visit [facility] C[facility]IOLOG[facility]ACT[facility] [address], [address] [place] [address] Ky Jewell MD [address] [place] [address] 11/05/2025 2:45 PM EST Office Visit [facility] NEUR[facility]ACT[facility] [address], 8th [place] [address] Ruddy Mayes MD [address] [facility] [address] 12/31/2025 11:30 AM EST Office Visit [facility] NE[facility]Y [facility] [address] [phone] 01/22/2026 9:00 AM EDT Office Visit [facility] [address], 1st [place] [address] Allyn Toribio NP [address] [place] [address] documented as of this encounter Results * (ABNORMAL) Comprehensive metabolic panel (12/18/2022 8:29 AM EST) Sodium 139 133 - 144 mmol/L 12/18/2022 9:12 AM [facility] Potassium 3.8 3.6 - 5.2 mmol/L 12/18/2022 9:12 AM [facility] Comment:Specimen slightly he molyzed. Results may be falsely elevated. Chloride 110(H) 98 - 107 mmol/L 12/18/2022 9:12 AM [facility] CO2 24 21 - 32 mmol/L 12/18/2022 9:12 AM [facility] Anion Gap 5 5 - 15 mmol/L 12/18/2022 9:12 AM [facility] BUN 19(H) 7 - 18 mg/dL 12/18/2022 9:12 AM [facility] Creatinine 1.20(H) 0.55 - 1.02 mg/dL 12/18/2022 9:12 AM [facility] BUN/Creatinine Ratio 15.83 10.00 - 20.00 ratio 12/18/2022 9:12 AM [facility] Glucose 145(H) 70 - 110 mg/dL 12/18/2022 9:12 AM [facility] Calcium 9.2 8.5 - 10.1 mg/dL 12/18/2022 9:12 AM [facility] AST 14(L) 15 - 37 U/L 12/18/2022 9:12 AM [facility] Comment:Specimen slightly he molyzed. Results may be falsely elevated. ALT (SGPT) 17 13 - 56 U/L 12/18/2022 9:12 AM [facility] Alkaline Phosphatase 108 45 - 117 U/L 12/18/2022 9:12 AM [facility] Total Protein 6.5 6.4 - 8.4 g/dL 12/18/2022 9:12 AM [facility] Albumin 3.0(L) 3.4 - 5.0 g/dL 12/18/2022 9:12 AM [facility] Globulin, Total 3.5 2.4 - 4.8 g/dL 12/18/2022 9:12 AM [facility] A/G Ratio <1.0 0.6 - 1.6 12/18/2022 9:12 AM [facility] Total Bilirubin 0.4 0.0 - 1.0 mg/dL 12/18/2022 9:12 AM [facility] eGFR (CKD-EPI) 47.9(L) >60.0 - 200.0 mL/min/1.7 3m*2 12/18/2022 9:12 AM [facility] Blood Venous blood specimen / Unknown Existing Catheter / Unknown 12/18/2022 8:29 AM EST 12/18/2022 8:42 AM EST us Rachel Soriano MD LAB BLOOD ORDERABLES Final Result [facility] [address] [place] [address], * CBC auto differential (12/18/2022 8:29 AM EST) Auto WBC 7.4 3.0 - 11.3 10*3/uL LAB HEMATOLOGY METHOD 12/18/2022 8:50 AM [facility] RBC 4.36 3.45 - 5.40 10*6/uL LAB HEMATOLOGY METHOD 12/18/2022 8:50 AM [facility] Hemoglobin 13.1 10.0 - 16.0 g/dL LAB HEMATOLOGY METHOD 12/18/2022 8:50 AM [facility] Hematocrit 39.9 29.9 - 45.5 % LAB HEMATOLOGY METHOD 12/18/2022 8:50 AM [facility] MCV 91.5 78.2 - 101.8 fL LAB HEMATOLOGY METHOD 12/18/2022 8:50 AM [facility] MCH 30.1 26.4 - 33.3 pg LAB HEMATOLOGY METHOD 12/18/2022 8:50 AM [facility] MCHC 32.9 32.5 - 35.3 g/dL LAB HEMATOLOGY METHOD 12/18/2022 8:50 AM [facility] RDW 14.3 10.1 - 16.2 % LAB HEMATOLOGY METHOD 12/18/2022 8:50 AM [facility] MPV 8.4 6.4 - 10.4 fL LAB HEMATOLOGY METHOD 12/18/2022 8:50 AM [facility] Neutrophils % 65 43 - 83 % LAB HEMATOLOGY METHOD 12/18/2022 8:50 AM [facility] Lymphocytes % 24 10 - 42 % LAB HEMATOLOGY METHOD 12/18/2022 8:50 AM [facility] Monocytes % 7 1 - 14 % LAB HEMATOLOGY METHOD 12/18/2022 8:50 AM [facility] Eosinophils % 3 0 - 11 % LAB HEMATOLOGY METHOD 12/18/2022 8:50 AM [facility] Basophils % 1 0 - 2 % LAB HEMATOLOGY METHOD 12/18/2022 8:50 AM [facility] Neutrophils Absolute 4.80 3.40 - 7.00 10*3/uL LAB HEMATOLOGY METHOD 12/18/2022 8:50 AM [facility] Lymphocytes Absolute 1.80 0.40 - 3.90 10*3/uL LAB HEMATOLOGY METHOD 12/18/2022 8:50 AM [facility] Monocytes Absolute 0.50 0.20 - 0.60 10*3/uL LAB HEMATOLOGY METHOD 12/18/2022 8:50 AM EST [facility] Eosinophils Absolute 0.20 0.00 - 0.90 10*3/uL LAB HEMATOLOGY METHOD 12/18/2022 8:50 AM EST [facility] Basophils Absolute 0.10 0.00 - 0.20 10*3/uL LAB HEMATOLOGY METHOD 12/18/2022 8:50 AM EST [facility] Platelets 238 122 - 454 10*3/uL LAB HEMATOLOGY METHOD 12/18/2022 8:50 AM EST [facility] Blood Venous blood specimen / Unknown Existing Catheter / Unknown 12/18/2022 8:29 AM EST 12/18/2022 8:41 AM EST us Rachel Soriano MD LAB BLOOD ORDERABLES Final Result [facility] [address] [place] [address], documented in this encounter Visit Diagnoses Diagnosis [...] documented as of this encounter Care Teams Shooter Helper Relationship Specialty Start Date End Date Viridiana Plaza NP [address] [place] [address] PCP - General Family Medicine 12/10/22 09/23/23 Italo Camejo NP [address] [place] [address], [address] [place] [address] PCP - General Family Medicine 09/24/23 03/19/25 Lizandro Khan NP [address] [place] [address] PCP - General Family Medicine 03/20/25 07/22/25 Lizandro Khan NP [address] [place] [address] PCP - General Family Medicine 07/23/25 Rachel Pagan MD [facility] [address] [facility] [place] [address] Consulting Physician Oncology 11/11/22 Yesy Acuna, ROLDAN [address] [place] [address] Nurse Navigator 11/12/22 03/05/25 Pati Rucker APRN [address] [facility] [place] [address] Nurse Practitioner Oncology 12/21/22 Sosa Gardner APRN [address] [place]ful [place] [address] Nurse Practitioner Oncology 06/24/23 Linda Elizabeth DO [address] [place] [address] Consulting Physician Oncology 03/01/25 08/28/25 Elsa Vazquez [address] [place] [address] Nurse Navigator Oncology 06/05/25 07/19/25 Angie Murray, ROLDAN [address] [place] [address] Nurse Navigator Oncology 06/26/25 documented as of this encounter
--- OUTSIDE RECORDS SUMMARY | 2025-09-30 11:45 | XMS_ITS | Encounter Summary ---
Author Organization [facility] nter Address [address] [place] [address] Care Team Providers Care Community Health Planning Director Name Role Phone Rachel Pagan MD Unavailable [phone] Yesy Acuna RN Unavailable [phone] Pati Rucker PEOPLESOFT CRM DEVELOPER Unavailable [phone] Sosa Gardner PEOPLESOFT CRM DEVELOPER Unavailable [phone] Italo Camejo LOAD CHECKER Primary Care Provider [phone] Linda Elizabeth DO Unavailable Lizandro Khan LOAD CHECKER Primary Care Provider [phone] Elsa Vazquez Unavailable Unavailable Angie Murray RN Unavailable Unavailab Lizandro Islas LOAD CHECKER Primary Care Provider [phone] Encounter Details Date Type Department Care Team (Late st Contact Info) Description 01/18/2025 Orders Only [facility] [address] 10th [place] [address] Tisha Faustin, ROLDAN [address] [place] [address] Social History Tobacco Use Types Packs/Day Years Used Date Smoking Tobacco: Every Day Cigarettes 0.5 30.9 Started: 2024 Passive Smoke Exposure: Current Smokeless Tobacco: Never Comments:Offered patient an appointment at the health department for smoking cessation classes. Patient declined. Alcohol Use Standard Drinks/Week Comments Never 0 (1 standard drink = 0.6 oz pur e alcohol) [facility] Utilities Answer Date Recorded In the [...] do you attend [facility] or yazdanism services? More than 4 times [...] PRACTICE [address], 10th [place] [address] Rachel Pagan MD [address] [place] [address] 10/10/2025 10:30 AM EST Appointment [facility] MED[facility] ONCOL[facility] [address], 11th [place] [address] 11/02/2025 9:30 AM EST Office Visit [facility] [address], 1st [place] [address] Ky Jewell MD [address] [place] [address] 11/05/2025 2:45 PM EST Office Visit [facility]UR[facility] [address], 8th [place] [address] Ruddy Mayes MD [address] [facility] [place] [address] 12/31/2025 11:30 AM EST Office Visit [facility] [address] [id number] 01/22/2026 9:00 AM EDT Office Visit [facility] [address], 1st [place] [address] Allyn Toribio NP [address] [phone] documented as of this encounter Visit Diagnoses [...] documented as of this encounter Care Teams Community Health Planning Director Relationship Specialty Start Date End Date Italo Camejo NP [address] [facility], [address] [place] [address] PCP - General Family Medicine 09/24/23 03/19/25 Lizandro Khan NP [address] [place] [address] PCP - General Family Medicine 03/20/25 07/22/25 Lizandro Khan NP [address] [facility] [place] [address] PCP - General Family Medicine 07/23/25 Rachel Pagan MD [address] [place], [place] [address] Consulting Physician Oncology 11/11/22 Yesy Acuna RN [address] [place] [address] Nurse Navigator 11/12/22 03/05/25 Pati Rucker APRN [address] [place], [place] [address] Nurse Practitioner Oncology 12/21/22 Sosa Gardner APRN [address] [place], [place] [address] Nurse Practitioner Oncology 06/24/23 Linda Elizabeth DO [address] [place], [place] [address] Consulting Physician Oncology 03/01/25 08/28/25 Elsa Vazquez [address] [place] [address] Nurse Navigator Oncology 06/05/25 07/19/25 Angie uMrray RN [address] [place] [address] Nurse Navigator Oncology 06/26/25 documented as of this encounter
--- OUTSIDE RECORDS SUMMARY | 2025-09-30 11:45 | XMS_ITS | Encounter Summary ---
Author Organization [facility] nter Address [address] [place] [address] Care Team Providers Care Department Assistant Name Role Phone Rachel Pagan MD Unavailable [phone] Yesy Acuna RN Unavailable Pati Rucker IRRIGATION EQUIPMENT MECHANIC Unavailable [phone] Sosa Gardner IRRIGATION EQUIPMENT MECHANIC Unavailable [phone] Italo Camejo INTERVENTIONAL PHYSIATRIST Primary Care Provider [phone] Linda Elizabeth DO Unavailable Lizandro Khan INTERVENTIONAL PHYSIATRIST Primary Care Provider [phone] Elsa Vazquez Unavailable Unavailable Angie Murray RN Unavailable Unavailab Lizandro Islas INTERVENTIONAL PHYSIATRIST Primary Care Provider [phone] Encounter Details Date Type Department Care Team (Late st Contact Info) Description 11/28/2024 Orders Only [facility] [address], 10th [place] [address] Rachel Pagan MD [address] [place] [address] Non-small cell cancer of right lung Social History Tobacco Use Types Packs/Day Years Used Date Smoking Tobacco: Every Day Cigarettes 0.5 30 Passive Smoke Exposure: Current Smokeless Tobacco: Never Comments:Offered patient an appointment at the health department for smoking cessation classes. Patient declined. Alcohol Use Standard Drinks/Week Comments Never 0 (1 standard drink = 0.6 oz pur e alcohol) [facility] Utilities Answer Date Recorded In [...] do you attend [facility] or caodaism services? More than 4 times per year 11/11/2022 Do you belong to any clubs o r organizations such as mormon groups, unions, fraternal or athletic groups, or [...] Description 10/04/2025 8:45 AM EST Office Visit [facility]ACT[facility] [address], 10th [place] [address] Rachel Pagan MD [address] [place] [address] 10/10/2025 10:30 AM EST Appointment [facility] MEDICAL ONCOLOGY [address], 11th [place] [address] 11/02/2025 9:30 AM EST Office Visit [facility] [address], [address] [place] [address] Ky Jewell MD [address] [place] [address] 11/05/2025 2:45 PM EST Office Visit [facility]UR[facility] [address], 8th [place] [address] Ruddy Mayes MD [address] [facility] [place] [address] 12/31/2025 11:30 AM EST Office Visit [facility] NEPHR[facility]ACT[facility] [address] [place] [address] 01/22/2026 9:00 AM EDT Office Visit [facility]ACT[facility] [address], [address] [place] [facility] [place] [address] Allyn Toribio NP [address] [place] [address] documented as of this encounter [...] 3.8 - 11.0 10*3/uL 11/28/2024 9:53 AM [facility] RBC 4.31 3.73 - 5.13 10*6/uL 11/28/2024 9:53 AM [facility] Hemoglobin 14.0 11.2 - 15.3 g/dL 11/28/2024 9:53 AM [facility] Hematocrit 41.5 32.6 - 44.6 % 11/28/2024 9:53 AM [facility] MCV 96.2(H) 78.8 - 96.0 fL 11/28/2024 9:53 AM [facility] MCH 32.4 26.2 - 33.0 pg 11/28/2024 9:53 AM [facility] MCHC 33.6 32.7 - 35.1 g/dL 11/28/2024 9:53 AM [facility] RDW 13.8 12.1 - 16.1 % 11/28/2024 9:53 AM [facility] MPV 8.3 7.0 - 10.6 fL 11/28/2024 9:53 AM [facility] Neutrophils % 84(H) 47 - 79 % 11/28/2024 9:53 AM [facility] Lymphocytes % 11(L) 13 - 41 % 11/28/2024 9:53 AM [facility] Monocytes % 5 3 - 11 % 11/28/2024 9:53 AM [facility] Eosinophils % 0 0 - 6 % 11/28/2024 9:53 AM [facility] Basophils % 0 0 - 2 % 11/28/2024 9:53 AM [facility] Neutrophils Absolute 9.90(H) 1.90 - 7.50 10*3/uL 11/28/2024 9:53 AM [facility] Lymphocytes Absolute 1.30 0.80 - 3.20 10*3/uL 11/28/2024 9:53 AM [facility] Monocytes Absolute 0.50 0.10 - 0.90 10*3/uL 11/28/2024 9:53 AM [facility] Eosinophils Absolute 0.00 0.00 - 0.40 10*3/uL 11/28/2024 9:53 AM [facility] Basophils Absolute 0.00 0.00 - 0.20 10*3/uL 11/28/2024 9:53 AM [facility] Platelets 190 138 - 402 10*3/uL 11/28/2024 9:53 AM [facility] Blood Venous blood specimen / Unknown Existing Catheter / Unknown 11/28/2024 9:18 AM EST 11/28/2024 9:41 AM EST us Rachel Soriano MD LAB BLOOD ORDERABLES Final Result [facility] [address] [place] [address], * (ABNORMAL) Comprehensive metabolic panel (11/28/2024 9:18 AM EST) Sodium 135 134 - 143 mmol/L 11/28/2024 10:30 AM [facility] Potassium 4.2 3.2 - 4.6 mmol/L 11/28/2024 10:30 AM [facility] Chloride 100 99 - 108 mmol/L 11/28/2024 10:30 AM [facility] CO2 31(H) 19 - 29 mmol/L 11/28/2024 10:30 AM [facility] Anion Gap 4(L) 5 - 15 mmol/L 11/28/2024 10:30 AM [facility] BUN 21(H) 7 - 20 mg/dL 11/28/2024 10:30 AM [facility] Creatinine 0.74 <=1.20 mg/dL 11/28/2024 10:30 AM [facility] BUN/Creatinine Ratio 28.38(H) 10.00 - 20.00 ratio 11/28/2024 10:30 AM [facility] Glucose 202(H) 58 - 104 mg/dL 11/28/2024 10:30 AM [facility] Calcium 8.8 7.9 - 11.1 mg/dL 11/28/2024 10:30 AM [facility] AST 15 10 - 28 U/L 11/28/2024 10:30 AM [facility] ALT (SGPT) 34 <=40 U/L 11/28/2024 10:30 AM [facility] Alkaline Phosphatase 83 29 - 108 U/L 11/28/2024 10:30 AM [facility] Total Protein 6.2 5.9 - 7.9 g/dL 11/28/2024 10:30 AM [facility] Albumin 3.2(L) 3.5 - 5.1 g/dL 11/28/2024 10:30 AM [facility] Globulin, Total 3.0 2.4 - 4.8 g/dL 11/28/2024 10:30 AM [facility] A/G Ratio 1.1 0.6 - 1.6 11/28/2024 10:30 AM [facility] Total Bilirubin 0.4 0.3 - 1.0 mg/dL 11/28/2024 10:30 AM [facility] eGFR (CKD-EPI) 84.7 >60.0 - 200.0 mL/min/1. 73m*2 11/28/2024 10:30 AM [facility] Blood Venous blood specimen / Unknown Existing Catheter / Unknown 11/28/2024 9:18 AM EST 11/28/2024 9:41 AM [facility] - 11/28/2024 10:30 AM EST Please note possible changes in reference range and units reported due to change in methodology. us Rachel Soriano MD LAB BLOOD ORDERABLES Final Result Performing Organization Address City/State/[facility] Co de Phone Number [facility] [address] [place] [address], documented in this encounter Visit Diagnoses Diagnosis [...] documented as of this encounter Care Teams Department Assistant Relationship Specialty Start Date End Date Italo Camejo NP [address] [facility], [address] [place] [address] PCP - General Family Medicine 09/24/23 03/19/25 Lizandro Khan NP [address] [facility] [place] [address] PCP - General Family Medicine 03/20/25 07/22/25 Lizandro Khan NP [address] [facility] [place] [address] PCP - General Family Medicine 07/23/25 Rachel Pagan MD [facility] [place] [address] Consulting Physician Oncology 11/11/22 Yesy Acuna, ROLDAN [address] [place], [facility]01 Nurse Navigator 11/12/22 03/05/25 Pati Rucker APRN [address] [place] [address] Nurse Practitioner Oncology 12/21/22 Sosa Gardner APRN [address] [place] [address] Nurse Practitioner Oncology 06/24/23 Linda Elizabeth DO [address] [place] [address] Consulting Physician Oncology 03/01/25 08/28/25 Elsa Vazquez [address] [place] [address] Nurse Navigator Oncology 06/05/25 07/19/25 Angie Murray, ROLDAN [address] [place] [address] Nurse Navigator Oncology 06/26/25 documented as of this encounter
--- OUTSIDE RECORDS SUMMARY | 2025-09-30 11:45 | XMS_ITS | Encounter Summary ---
Author Organization [facility] nter Address [address] [place] [address] Care Team Providers Care State Appellate Clerk Name Role Phone Rachel Pagan MD Unavailable [phone] Yesy Acuna RN Unavailable [phone] SENIOR DATA WAREHOUSE ARCHITECT Primary Care Provider [phone] Pati Rucker AUTOMOTIVE LUBE TECHNICIAN Unavailable [phone] Sosa Gardner AUTOMOTIVE LUBE TECHNICIAN Unavailable [phone] Italo Camejo SENIOR DATA WAREHOUSE ARCHITECT Primary Care Provider [phone] Linda Elizabeth DO Unavailable Lizandro Khan SENIOR DATA WAREHOUSE ARCHITECT Primary Care Provider [phone] Elsa Vazquez Unavailable Unavailable Angie Murray RN Unavailable Unavailab Lizandro Islas SENIOR DATA WAREHOUSE ARCHITECT Primary Care Provider [phone] Encounter Details Date Type Department Care Team (Late st Contact Info) Description 12/21/2022 Orders Only [facility] [address], 10th [place] [address] Pati Rucker, AUTOMOTIVE LUBE TECHNICIAN [address] [place] [address] Non-small cell cancer of right [...] often do you attend [facility] or mu-ism services? More than 4 times per year 11/11/2022 Do you belong to any clubs o r organizations such as congregation groups, unions, fraternal or athletic groups, or [...] in a custodial (including now)? No 11/11/2022 Comments No Sex [...] Description 10/04/2025 8:45 AM EST Office Visit [facility] ONCOLOGY PRACTICE [address], 10th [place] [address] Rachel Pagan MD [address] [place] [address] 10/10/2025 10:30 AM EST Appointment [facility] [address], 11th [place] [address] 11/02/2025 9:30 AM EST Office Visit [facility] [address], 1st [place] [address] Ky Jewell MD [address] [place] [address] 11/05/2025 2:45 PM EST Office Visit [facility] NEUROLOGY PRACTICE [address], 8th Floor [facility] [place] [address] Ruddy Mayes MD [address] [place] [address] 12/31/2025 11:30 AM EST Office Visit [facility] NEPHROLOGY PRACTICE [address] [id number] 01/22/2026 9:00 AM EDT Office Visit [facility] CARDIOLOGY PRACTICE [address], 1st [place] [address] Allyn Toribio NP [address] [place] [id number] documented as of this encounter Visit Diagnoses [...] documented as of this encounter Care Teams State Appellate Clerk Relationship Specialty Start Date End Date Viridiana Plaza NP [address] [place] [phone] PCP - General Family Medicine 12/10/22 09/23/23 Italo Camejo NP [address] [place] [address], [address] [place] [address] PCP - General Family Medicine 09/24/23 03/19/25 Lizandro Khan NP [address] [place] [address] PCP - General Family Medicine 03/20/25 07/22/25 Lizandro Khan NP [address] [place] [address] PCP - General Family Medicine 07/23/25 Rachel Pagan MD [facility] [address] [facility] [address] Consulting Physician Oncology 11/11/22 Yesy Acuna RN [address] [place] [id number] Nurse Navigator 11/12/22 03/05/25 Pati Rucker APRN [facility] [address] [facility] [place] [address] Nurse Practitioner Oncology 12/21/22 Sosa Gardner APRN [address] [facility] [place] [address] Nurse Practitioner Oncology 06/24/23 Linda Elizabeth DO [address] [place] [address] Consulting Physician Oncology 03/01/25 08/28/25 Elsa Vazquez [address] [place] [address] Nurse Navigator Oncology 06/05/25 07/19/25 Angie Murray, ROLDAN [address] [place] [address] Nurse Navigator Oncology 06/26/25 documented as of this encounter
--- OUTSIDE RECORDS SUMMARY | 2025-09-30 11:45 | XMS_ITS | Patient Health Record ---
Author Organization [facility] Address [address] [place] [address] [place] [address] Care Team Providers Care Site Operations Manager Name Role Phone Brittanie EVANS Primary Care Provider UnavailLizandro Cain Unavailable [phone] Reason For Referral No Information Plan Of Treatment No Information Insurance Providers Payer Name Payer Address Payer Phone Subscriber Number Group Number Insured Name Patient Relationship to Insured Coverage Start Date Coverage End Date [employer] [address] [address] [place] [address] [id number] Jose Sims Self - patient is the insured
--- OUTSIDE RECORDS SUMMARY | 2025-09-30 11:45 | XMS_ITS | Encounter Summary ---
Author Organization [facility] nter Address [address] [place] [address] Care Team Providers Care Registered Dental Assistant Rda Name Role Phone Rachel Pagan MD Unavailable [phone] Yesy Acuna RN Unavailable [phone] CONSULTANT TEACHER Primary Care Provider [phone] Pati Rucker PRIMER SUPERVISOR Unavailable [phone] Sosa Gardner PRIMER SUPERVISOR Unavailable [phone] Italo Camejo CONSULTANT TEACHER Primary Care Provider [phone] Linda Elizabeth DO Unavailable Lizandro Khan CONSULTANT TEACHER Primary Care Provider [phone] Elsa Vazquez Unavailable Unavailable Angie Murray RN Unavailable Unavailab Lizandro Islas CONSULTANT TEACHER Primary Care Provider [phone] Encounter Details Date Type Department Care Team (Late st Contact Info) Description 01/15/2023 Orders Only [facility] [address], 10th [place] [address] Rachel Pagan MD [address] [place] [address] Non-small cell cancer of right [...] How often do you attend [facility] or anabaptism services? More than 4 times per year [...] [place] [address] Rachel Pagan MD 1 [place] [address] 10/10/2025 10:30 AM EST Appointment [facility] [address] 11th [place] [address] 11/02/2025 9:30 AM EST Office Visit [facility] [address]st [place] [address] Ky Jewell MD [address] [place] [address] 11/05/2025 2:45 PM EST Office Visit [facility] NEUROLOGY PRACTICE [address], 8th [place] [address] Ruddy Mayes MD [address] [facility] [place] [address] 12/31/2025 11:30 AM EST Office Visit [facility] NEPHROLOGY PRACTICE [address] [id number] 01/22/2026 9:00 AM EDT Office Visit [facility] CARDIOLOGY PRACTICE [address], 1st [place] [address] Allyn Toribio NP [address] [place] [address] documented as of this encounter Results * (ABNORMAL) Comprehensive metabolic panel (01/18/2023 8:50 AM EST) Sodium 141 133 - 144 mmol/L 01/18/2023 9:38 AM [facility] Potassium 3.8 3.6 - 5.2 mmol/L 01/18/2023 9:38 AM [facility] Chloride 111(H) 98 - 107 mmol/L 01/18/2023 9:38 AM [facility] CO2 24 21 - 32 mmol/L 01/18/2023 9:38 AM [facility] Anion Gap 6 5 - 15 mmol/L 01/18/2023 9:38 AM [facility] BUN 13 7 - 18 mg/dL 01/18/2023 9:38 AM [facility] Creatinine 1.00 0.55 - 1.02 mg/dL 01/18/2023 9:38 AM [facility] BUN/Creatinine Ratio 13.00 10.00 - 20.00 ratio 01/18/2023 9:38 AM [facility] Glucose 158(H) 70 - 110 mg/dL 01/18/2023 9:38 AM [facility] Calcium 9.1 8.5 - 10.1 mg/dL 01/18/2023 9:38 AM [facility] AST 19 15 - 37 U/L 01/18/2023 9:38 AM [facility] ALT (SGPT) 31 13 - 56 U/L 01/18/2023 9:38 AM [facility] Alkaline Phosphatase 104 45 - 117 U/L 01/18/2023 9:38 AM [facility] Total Protein 6.9 6.4 - 8.4 g/dL 01/18/2023 9:38 AM [facility] Albumin 3.0(L) 3.4 - 5.0 g/dL 01/18/2023 9:38 AM [facility] Globulin, Total 3.9 2.4 - 4.8 g/dL 01/18/2023 9:38 AM [facility] A/G Ratio <1.0 0.6 - 1.6 01/18/2023 9:38 AM [facility] Total Bilirubin 0.3 0.0 - 1.0 mg/dL 01/18/2023 9:38 AM [facility] eGFR (CKD-EPI) 59.7(L) >60.0 - 200.0 mL/min/1.7 3m*2 01/18/2023 9:38 AM [facility] Blood Venous blood specimen / Unknown Existing Catheter / Unknown 01/18/2023 8:50 AM EST 01/18/2023 9:07 AM EST Rachel Soriano MD LAB BLOOD ORDERABLES Final Result Performing Organization Address City/State/[facility] Co de Phone Number [facility] [address] [place] [address], * CBC auto differential (01/18/2023 8:50 AM EST) Auto WBC 5.5 3.0 - 11.3 10*3/uL LAB HEMATOLOGY METHOD 01/18/2023 9:19 AM [facility] RBC 4.42 3.45 - 5.40 10*6/uL LAB HEMATOLOGY METHOD 01/18/2023 9:19 AM [facility] Hemoglobin 13.5 10.0 - 16.0 g/dL LAB HEMATOLOGY METHOD 01/18/2023 9:19 AM [facility] Hematocrit 40.2 29.9 - 45.5 % LAB HEMATOLOGY METHOD 01/18/2023 9:19 AM [facility] MCV 91.0 78.2 - 101.8 fL LAB HEMATOLOGY METHOD 01/18/2023 9:19 AM [facility] MCH 30.5 26.4 - 33.3 pg LAB HEMATOLOGY METHOD 01/18/2023 9:19 AM [facility] MCHC 33.5 32.5 - 35.3 g/dL LAB HEMATOLOGY METHOD 01/18/2023 9:19 AM [facility] RDW 14.5 10.1 - 16.2 % LAB HEMATOLOGY METHOD 01/18/2023 9:19 AM [facility] MPV 7.7 6.4 - 10.4 fL LAB HEMATOLOGY METHOD 01/18/2023 9:19 AM [facility] Neutrophils % 64 43 - 83 % LAB HEMATOLOGY METHOD 01/18/2023 9:19 AM [facility] Lymphocytes % 26 10 - 42 % LAB HEMATOLOGY METHOD 01/18/2023 9:19 AM [facility] Monocytes % 6 1 - 14 % LAB HEMATOLOGY METHOD 01/18/2023 9:19 AM [facility] Eosinophils % 3 0 - 11 % LAB HEMATOLOGY METHOD 01/18/2023 9:19 AM [facility] Basophils % 1 0 - 2 % LAB HEMATOLOGY METHOD 01/18/2023 9:19 AM [facility] Neutrophils Absolute 3.50 3.40 - 7.00 10*3/uL LAB HEMATOLOGY METHOD 01/18/2023 9:19 AM [facility] Lymphocytes Absolute 1.40 0.40 - 3.90 10*3/uL LAB HEMATOLOGY METHOD 01/18/2023 9:19 AM [facility] Monocytes Absolute 0.30 0.20 - 0.60 10*3/uL LAB HEMATOLOGY METHOD 01/18/2023 9:19 AM [facility] Eosinophils Absolute 0.10 0.00 - 0.90 10*3/uL LAB HEMATOLOGY METHOD 01/18/2023 9:19 AM EST [facility] Basophils Absolute 0.10 0.00 - 0.20 10*3/uL LAB HEMATOLOGY METHOD 01/18/2023 9:19 AM EST [facility] Platelets 241 122 - 454 10*3/uL LAB HEMATOLOGY METHOD 01/18/2023 9:19 AM EST [facility] Blood Venous blood specimen / Unknown Existing Catheter / Unknown 01/18/2023 8:50 AM EST 01/18/2023 9:07 AM EST us Rachel Soriano MD LAB BLOOD ORDERABLES Final Result [facility] [address] [place] [address], documented in this encounter Visit Diagnoses Diagnosis [...] PM 05/15/2025 05/15/202506/14/2025 7:28 PM E DT documented as of this encounter Care Teams Registered Dental Assistant Rda Relationship Specialty Start Date End Date Viridiana Plaza NP [address] [place] [phone] PCP - General Family Medicine 12/10/22 09/23/23 Italo Camejo NP [address] [place] [address], [address] [place] [address] PCP - General Family Medicine 09/24/23 03/19/25 Lizandro Khan NP [address] [place] [address] PCP - General Family Medicine 03/20/25 07/22/25 Lizandro Khan NP [address] [place] [address] PCP - General Family Medicine 07/23/25 Rachel Pagan MD [facility] [place] [address] Consulting Physician Oncology 11/11/22 Yesy Acuna RN [address] [place], [place] [phone] Nurse Navigator 11/12/22 03/05/25 Pati Rucker APRN [facility] [address] [facility] [place] [address] Nurse Practitioner Oncology 12/21/22 Sosa Gardner APRN [facility] [address] [facility] [place] [address] Nurse Practitioner Oncology 06/24/23 Linda Elizabeth DO [address] [place] [address] Consulting Physician Oncology 03/01/25 08/28/25 Elsa Vazquez [address] [place] [address] Nurse Navigator Oncology 06/05/25 07/19/25 Angie Murray, RN [address] [place] [address] Nurse Navigator Oncology 06/26/25 documented as of this encounter
--- OUTSIDE RECORDS SUMMARY | 2025-09-30 11:45 | XMS_ITS | Encounter Summary ---
Author Organization [facility] nter Address [address] [place] [address] Care Team Providers Care Motorman/Woman Name Role Phone Rachel Pagan MD Unavailable Yesy Acuna RN Unavailable [phone] Pati Rucker PARTNER MARKETING INTERN Unavailable [phone] Sosa Gardner PARTNER MARKETING INTERN Unavailable [phone] Italo Camejo MONTESSORI LEAD TEACHER Primary Care Provider [phone] Linda Elizabeth DO Unavailable Lizandro Khan MONTESSORI LEAD TEACHER Primary Care Provider [phone] Elsa Vazquez Unavailable Unavailable Angie Murray RN Unavailable Unavailab Lizandro Islas MONTESSORI LEAD TEACHER Primary Care Provider Encounter Details Date Type Department Care Team (Late st Contact Info) Description 01/25/2025 Orders Only [facility] MEDICAL ONCOLOGY [address] 11th [place] [address] Generic Social History Tobacco Use [...] In the past 12 months has e [employer], oil, or water [employer] threatened to shut off services in your [...] How often do you attend chur or nondenominational services? More than 4 times per year 11/11/2022 Do you belong to any clubs o r organizations such as restorationism groups, unions, fraternal or athletic groups, or [...] Assessment Author No 10/27/2022 3:29 PM EST Demteri Mota RN * Are you blind or [...] ONCOLOGY PRACTICE [address], 10th [place] [address] Rachel Pagan MD [address] [place] [address] 10/10/2025 10:30 AM EST Appointment [facility] MEDICAL ONCOLOGY [address] 11th [place] [address] 11/02/2025 9:30 AM EST Office Visit [facility] CARDIOLOGY PRACTICE [address], [address] [place] [phone] Ky Jewell MD [address] [place] [address] 11/05/2025 2:45 PM EST Office Visit [facility] NEUROLOGY PRACTICE [address], 8th [place] [address] Ruddy Mayes MD [address] [place] [address] 12/31/2025 11:30 AM EST Office Visit [facility] NEPHROLOGY PRACTICE [address] [place] [address] 01/22/2026 9:00 AM EDT Office Visit [facility] CARDIOLOGY PRACTICE [address], 1st [place] [address] Allyn Toribio NP [address] [place] [address] documented as of this encounter Visit Diagnoses [...] documented as of this encounter Care Teams Motorman/Woman Relationship Specialty Start Date End Date Italo Camejo NP [address] [facility], [address] [place] [address] PCP - General Family Medicine 09/24/23 03/19/25 Lizandro Khan NP [address] [place] [address] PCP - General Family Medicine 03/20/25 07/22/25 Lizandro Khan NP [address] [facility] [place] [address] PCP - General Family Medicine 07/23/25 Rachel Pagan MD [address] [place], [place] [phone] Consulting Physician Oncology 11/11/22 Yesy Acuna, RN [address] [place], [place] [address] Nurse Navigator 11/12/22 03/05/25 Pati Rucker APRN [address] [place], [place] [address] Nurse Practitioner Oncology 12/21/22 Sosa Gardner APRN [address] [place], [place] [address] Nurse Practitioner Oncology 06/24/23 Linda Elizabeth DO [address] [place], [place] [address] Consulting Physician Oncology 03/01/25 08/28/25 Elsa Vazquez [address] [place] [address] Nurse Navigator Oncology 06/05/25 07/19/25 Angie Murray, ROLDAN [address] [place] [address] Nurse Navigator Oncology 06/26/25 documented as of this encounter
--- OUTSIDE RECORDS SUMMARY | 2025-09-30 11:45 | XMS_ITS | Encounter Summary ---
Author Organization [facility] nter Address [address] [place] [address] Care Team Providers Care Asphalt Layer Name Role Phone Rachel Pagan MD Unavailable [phone] Yesy Acuna RN Unavailable Ptai Rucker CHAIN PEGGER Unavailable [phone] Sosa Gardner CHAIN PEGGER Unavailable [phone] Italo Camejo TRAFFIC TECHNICIAN Primary Care Provider [phone] Linda Elizabeth DO Unavailable Lizandro Khan TRAFFIC TECHNICIAN Primary Care Provider [phone] Elsa Vazquez Unavailable Unavailable Angie Murray RN Unavailable Unavailab Lizandro Islas TRAFFIC TECHNICIAN Primary Care Provider [phone] Encounter Details Date Type Department Care Team (Late st Contact Info) Description 12/09/2023 Orders Only [facility] [address], 10th [place] [address] Rachel Pagan MD [address] [place] [address] Non-small cell cancer of right [...] How often do you attend [facility] or voodoo services? More than 4 times [...] ONCOLOGY PRACTICE [address], 10th Floor [place] [phone] Rachel Pagan MD [address] [place] [address] 10/10/2025 10:30 AM EST Appointment [facility] [address] 11th [place] [address] 11/02/2025 9:30 AM EST Office Visit [facility] [address], [address]st [place] [phone] Ky Jewell MD [facility] [address] [place] [phone] 11/05/2025 2:45 PM EST Office Visit [facility] [address], 8th Floor [place] [phone] Ruddy Mayes MD [address] [place] [address] 12/31/2025 11:30 AM EST Office Visit [facility] [address] [place] [address] 01/22/2026 9:00 AM EDT Office Visit [facility] [address], 1st [place] [phone] Allyn Toribio, GRAHAM [address] [place] [address] documented as of this encounter Procedures Procedure [...] 10*3/uL LAB HEMATOLOGY METHOD 12/09/2023 9:28 AM [facility] RBC 4.34 3.45 - 5.40 10*6/uL LAB HEMATOLOGY METHOD 12/09/2023 9:28 AM [facility] Hemoglobin 14.5 10.0 - 16.0 g/dL LAB HEMATOLOGY METHOD 12/09/2023 9:28 AM [facility] Hematocrit 41.9 29.9 - 45.5 % LAB HEMATOLOGY METHOD 12/09/2023 9:28 AM [facility] MCV 96.4 78.2 - 101.8 fL LAB HEMATOLOGY METHOD 12/09/2023 9:28 AM [facility] MCH 33.3 26.4 - 33.3 pg LAB HEMATOLOGY METHOD 12/09/2023 9:28 AM [facility] MCHC 34.6 32.5 - 35.3 g/dL LAB HEMATOLOGY METHOD 12/09/2023 9:28 AM [facility] RDW 14.2 10.1 - 16.2 % LAB HEMATOLOGY METHOD 12/09/2023 9:28 AM [facility] MPV 8.8 6.4 - 10.4 fL LAB HEMATOLOGY METHOD 12/09/2023 9:28 AM [facility] Neutrophils % 57 43 - 83 % LAB HEMATOLOGY METHOD 12/09/2023 9:28 AM [facility] Lymphocytes % 32 10 - 42 % LAB HEMATOLOGY METHOD 12/09/2023 9:28 AM [facility] Monocytes % 9 1 - 14 % LAB HEMATOLOGY METHOD 12/09/2023 9:28 AM [facility] Eosinophils % 2 0 - 11 % LAB HEMATOLOGY METHOD 12/09/2023 9:28 AM [facility] Basophils % 1 0 - 2 % LAB HEMATOLOGY METHOD 12/09/2023 9:28 AM [facility] Neutrophils Absolute 5.10 3.40 - 7.00 10*3/uL LAB HEMATOLOGY METHOD 12/09/2023 9:28 AM [facility] Lymphocytes Absolute 2.80 0.40 - 3.90 10*3/uL LAB HEMATOLOGY METHOD 12/09/2023 9:28 AM [facility] Monocytes Absolute 0.80(H) 0.20 - 0.60 10*3/uL LAB HEMATOLOGY METHOD 12/09/2023 9:28 AM [facility] Eosinophils Absolute 0.10 0.00 - 0.90 10*3/uL LAB HEMATOLOGY METHOD 12/09/2023 9:28 AM [facility] Basophils Absolute 0.10 0.00 - 0.20 10*3/uL LAB HEMATOLOGY METHOD 12/09/2023 9:28 AM [facility] Platelets 243 122 - 454 10*3/uL LAB HEMATOLOGY METHOD 12/09/2023 9:28 AM [facility] Blood Venous blood specimen / Unknown Venipuncture / Unknown 12/09/2023 9:10 AM EST 12/09/2023 9:19 AM EST us Rachel Soriano MD LAB BLOOD ORDERABLES Final Result [facility] [address] [place] [address], * (ABNORMAL) Comprehensive metabolic panel (12/09/2023 9:10 AM EST) Sodium 142 133 - 144 mmol/L 12/09/2023 9:50 AM [facility] Potassium 4.9 3.6 - 5.2 mmol/L 12/09/2023 9:50 AM [facility] Comment:Specimen moderately hemolyzed. Results may be falsely elevated. Chloride 113(H) 98 - 107 mmol/L 12/09/2023 9:50 AM [facility] CO2 28 21 - 32 mmol/L 12/09/2023 9:50 AM [facility] Anion Gap 1(L) 5 - 15 mmol/L 12/09/2023 9:50 AM [facility] BUN 16 7 - 18 mg/dL 12/09/2023 9:50 AM [facility] Creatinine 1.00 0.55 - 1.02 mg/dL 12/09/2023 9:50 AM [facility] BUN/Creatinine Ratio 16.00 10.00 - 20.00 ratio 12/09/2023 9:50 AM [facility] Glucose 111(H) 70 - 110 mg/dL 12/09/2023 9:50 AM [facility] Calcium 9.1 8.5 - 10.1 mg/dL 12/09/2023 9:50 AM [facility] AST 38(H) 15 - 37 U/L 12/09/2023 9:50 AM [facility] Comment:Specimen moderately hemolyzed. Results may be falsely elevated. ALT (SGPT) 23 13 - 56 U/L 12/09/2023 9:50 AM [facility] Alkaline Phosphatase 112 45 - 117 U/L 12/09/2023 9:50 AM [facility] Total Protein 6.7 6.4 - 8.4 g/dL 12/09/2023 9:50 AM [facility] Albumin 2.6(L) 3.4 - 5.0 g/dL 12/09/2023 9:50 AM [facility] Globulin, Total 4.1 2.4 - 4.8 g/dL 12/09/2023 9:50 AM EST [facility] A/G Ratio 0.6 0.6 - 1.6 12/09/2023 9:50 AM EST [facility] Total Bilirubin 0.6 0.0 - 1.0 mg/dL 12/09/2023 9:50 AM [facility] eGFR (CKD-EPI) 59.3(L) >60.0 - 200.0 mL/min/1.7 3m*2 12/09/2023 9:50 AM EST [facility] Blood Venous blood specimen / Unknown Venipuncture / Unknown 12/09/2023 9:10 AM EST 12/09/2023 9:19 AM EST us Rachel Soriano MD LAB BLOOD ORDERABLES Final Result Performing Organization Address City/State/[facility] Co de Phone Number [facility] [address] [place] [address], documented in this encounter Visit Diagnoses Diagnosis [...] as of this encounter Care Teams Asphalt Layer Relationship Specialty Start Date End Date Italo Camejo NP [address] [facility], [address] [place] [address] PCP - General Family Medicine 09/24/23 03/19/25 Lizandro Khan NP [address] [place] [address] PCP - General Family Medicine 03/20/25 07/22/25 Lizandro Khan NP [address] [place] [address] PCP - General Family Medicine 07/23/25 Rachel Pagan MD [facility] [address] [facility] [place] [phone] Consulting Physician Oncology 11/11/22 Yesy Acuna RN [address] [place] [address] Nurse Navigator 11/12/22 03/05/25 Pati Rucker APRN [address] [place] [address] Nurse Practitioner Oncology 12/21/22 Sosa Gardner APRN [address] [place] [address] Nurse Practitioner Oncology 06/24/23 Linda Elizabeth DO [address] [place] [address] Consulting Physician Oncology 03/01/25 08/28/25 Elsa Vazquez [address] [place] [address] Nurse Navigator Oncology 06/05/25 07/19/25 Angie Murray RN [address] [place] [address] Nurse Navigator Oncology 06/26/25 documented as of this encounter
--- OUTSIDE RECORDS SUMMARY | 2025-09-30 11:45 | XMS_ITS | Encounter Summary ---
Author Organization Healthcare Address [address] [place] [address] Care Team Providers Care Coding Compliance Auditor Name Role Phone Lizandro Khan APRN Primary Care Provider [phone] Encounter Details Date Type Department Care Team (Latest Contact Info) Description 09/07/2025 Travel Social History Tobacco Use Types Packs/Day [...] Visit [place] [facility] [address], 1st [place] [address] Pepe Cabrera MD [address] [place] [address] documented as of this encounter Visit Diagnoses Not on filedocumented in this encounter Additional Health Concerns Assessment Noted Time A fall risk assessment has been complete d for the patient 07/26/2025 3:13 PM EDT A Body Mass Index follow-up plan has been documented for the patient 09/07/2025 6:37 PM EDT documented as of this encounter Care Teams Coding Compliance Auditor Relationship Specialty Start Date End Date Lizandro Khan APRN [address] [place] [address] PCP - General 08/22/25 documented as of this encounter
--- OUTSIDE RECORDS SUMMARY | 2025-09-30 11:45 | XMS_ITS | Encounter Summary ---
Author Organization Healthcare Address [address] [place] [address] Care Team Providers Care Patent Searcher Name Role Phone Lizandro Khan APRN Primary Care Provider [phone] Encounter Details Date Type Department Care Team (Latest Contact Info) Description 09/21/2025 Travel Social History Tobacco Use Types Packs/Day [...] Visit [place] [facility] [address], 1st [place] [address] Pepe Cabrera MD [address] [place] [address] documented as of this encounter Visit Diagnoses Not on filedocumented in this encounter Additional Health Concerns Assessment Noted Time A fall risk assessment has been complete d for the patient 07/26/2025 3:13 PM EDT A Body Mass Index follow-up plan has been documented for the patient 09/21/2025 12:37 PM EST documented as of this encounter Care Teams Patent Searcher Relationship Specialty Start Date End Date Lizandro Khan APRN [address] [place] [address] PCP - General 08/22/25 documented as of this encounter
--- OUTSIDE RECORDS SUMMARY | 2025-09-30 11:45 | XMS_ITS | Encounter Summary ---
Author Organization [facility] nter Address [address] [place] [address] Care Team Providers Care Prosthetist Name Role Phone Rachel Pagan MD Unavailable [phone] Yesy Acuna RN Unavailable [phone] STUDIO SALES ASSOCIATE Primary Care Provider [phone] Pati Rucker ENGRAVER AUTOMATIC Unavailable [phone] Sosa Gardner ENGRAVER AUTOMATIC Unavailable [phone] Italo Camejo STUDIO SALES ASSOCIATE Primary Care Provider [phone] Linda Elizabeth DO Unavailable Lizandro Khan STUDIO SALES ASSOCIATE Primary Care Provider [phone] Elsa Vazquez Unavailable Unavailable Angie Murray RN Unavailable Unavailab Lizandro Islas STUDIO SALES ASSOCIATE Primary Care Provider [phone] Encounter Details Date Type Department Care Team (Late st Contact Info) Description 12/28/2022 Orders Only [facility] [address], 8th [place] [address] Monserrat Alvarado, RN [address] [place] [address] YUMIKO (acute kidney injury) Social History Tobacco [...] How often do you attend [facility] or sikhism services? More than 4 times per year [...] ONCOLOGY PRACTICE [address], 10th [place] [address] Rachel Pagan MD [address] [place] [address] 10/10/2025 10:30 AM EST Appointment [facility] [address], 11th [place] [address] 11/02/2025 9:30 AM EST Office Visit [facility] [address], [address]st [place] [address] Ky Jewell MD [address] [place] [address] 11/05/2025 2:45 PM EST Office Visit [facility] [address], 8th [place] [address] Ruddy Mayes MD [address] [place] [address] [place] [address] 12/31/2025 11:30 AM EST Office Visit [facility] [address] [place], [place] [phone] 01/22/2026 9:00 AM EDT Office Visit [facility] [address]st [place] [address] Allyn Toribio NP [address] [place] [address] documented as of this encounter Results * Vitamin D 25 hydroxy (01/05/2023 10:37 AM EST) [facility] Vitamin D, Total 35.6 30.0 - 100.0 ng/mL 01/05/2023 3:48 PM EST [facility] Blood Venous blood specimen / Unknown Existing Catheter / Unknown 01/05/2023 10:37 AM EST 01/05/2023 11:06 AM EST us Gifty Ricardo MD LAB BLOOD ORDERABLES Final Res ult [facility] [address] [place] [address], [place] [phone] * Phosphorus (01/05/2023 10:37 AM EST) [facility] Phosphorus 3.5 2.5 - 4.9 mg/dL 01/05/2023 11:42 AM EST [facility] Blood Venous blood specimen / Unknown Existing Catheter / Unknown 01/05/2023 10:37 AM EST 01/05/2023 11:06 AM EST us Gifty Ricardo MD LAB BLOOD ORDERABLES Final Res ult [facility] [address] [place] [address], [place] [phone] * (ABNORMAL) PTH, intact (01/05/2023 10:37 AM EST) PTH 75.5(H) 15.0 - 65.0 pg/mL 01/05/2023 3:48 PM [facility] Blood Venous blood specimen / Unknown Existing Catheter / Unknown 01/05/2023 10:37 AM EST 01/05/2023 11:06 AM EST us Gifty Ricardo MD LAB BLOOD ORDERABLES Final Res ult [facility] [address] [place] [address], * (ABNORMAL) Comprehensive metabolic panel (01/05/2023 10:37 AM EST) Sodium 144 133 - 144 mmol/L 01/05/2023 11:42 AM [facility] Potassium 4.3 3.6 - 5.2 mmol/L 01/05/2023 11:42 AM [facility] Chloride 114(H) 98 - 107 mmol/L 01/05/2023 11:42 AM [facility] CO2 26 21 - 32 mmol/L 01/05/2023 11:42 AM [facility] Anion Gap 4(L) 5 - 15 mmol/L 01/05/2023 11:42 AM [facility] BUN 16 7 - 18 mg/dL 01/05/2023 11:42 AM [facility] Creatinine 1.10(H) 0.55 - 1.02 mg/dL 01/05/2023 11:42 AM [facility] BUN/Creatinine Ratio 14.55 10.00 - 20.00 ratio 01/05/2023 11:42 AM [facility] Glucose 137(H) 70 - 110 mg/dL 01/05/2023 11:42 AM [facility] Calcium 9.3 8.5 - 10.1 mg/dL 01/05/2023 11:42 AM [facility] AST 12(L) 15 - 37 U/L 01/05/2023 11:42 AM [facility] ALT (SGPT) 24 13 - 56 U/L 01/05/2023 11:42 AM [facility] Alkaline Phosphatase 123(H) 45 - 117 U/L 01/05/2023 11:42 AM [facility] Total Protein 6.1(L) 6.4 - 8.4 g/dL 01/05/2023 11:42 AM [facility] Albumin 3.0(L) 3.4 - 5.0 g/dL 01/05/2023 11:42 AM [facility] Globulin, Total 3.1 2.4 - 4.8 g/dL 01/05/2023 11:42 AM [facility] A/G Ratio 1.0 0.6 - 1.6 01/05/2023 11:42 AM [facility] Total Bilirubin 0.5 0.0 - 1.0 mg/dL 01/05/2023 11:42 AM [facility] eGFR (CKD-EPI) 53.2(L) >60.0 - 200.0 mL/min/1.7 3m*2 01/05/2023 11:42 AM [facility] Blood Venous blood specimen / Unknown Existing Catheter / Unknown 01/05/2023 10:37 AM EST 01/05/2023 11:06 AM EST us Gifty Ricardo MD LAB BLOOD ORDERABLES Final Res ult [facility] [address] [place] [address], * CBC (01/05/2023 10:37 AM EST) Auto WBC 6.9 3.0 - 11.3 10*3/uL LAB HEMATOLOGY METHOD 01/05/2023 11:17 AM [facility] RBC 4.52 3.45 - 5.40 10*6/uL LAB HEMATOLOGY METHOD 01/05/2023 11:17 AM [facility] Hemoglobin 13.9 10.0 - 16.0 g/dL LAB HEMATOLOGY METHOD 01/05/2023 11:17 AM [facility] Hematocrit 40.9 29.9 - 45.5 % LAB HEMATOLOGY METHOD 01/05/2023 11:17 AM [facility] MCV 90.5 78.2 - 101.8 fL LAB HEMATOLOGY METHOD 01/05/2023 11:17 AM [facility] MCH 30.8 26.4 - 33.3 pg LAB HEMATOLOGY METHOD 01/05/2023 11:17 AM [facility] MCHC 34.0 32.5 - 35.3 g/dL LAB HEMATOLOGY METHOD 01/05/2023 11:17 AM [facility] RDW 14.8 10.1 - 16.2 % LAB HEMATOLOGY METHOD 01/05/2023 11:17 AM [facility] Platelets 240 122 - 454 10*3/uL LAB HEMATOLOGY METHOD 01/05/2023 11:17 AM [facility] MPV 8.1 6.4 - 10.4 fL LAB HEMATOLOGY METHOD 01/05/2023 11:17 AM [facility] Blood Venous blood specimen / Unknown Existing Catheter / Unknown 01/05/2023 10:37 AM EST 01/05/2023 11:07 AM EST us Gifty Ricardo MD LAB BLOOD ORDERABLES Final Res ult Performing Organization Address City/State/[facility] Co de Phone Number [facility] [address] [place] [address], documented in this encounter Visit Diagnoses Diagnosis YUMIKO (acute kidney injury) documented in this encounter Additional Health Concerns Infection Onset Date Last Indicated Resolved Time Respiratory Rule-Out 04/20/2024 04/20/2024 024 1:54 PM EDT Respiratory Rule-Out 04/25/2024 04/25/2024 024 4:02 PM EDT Respiratory Rule-Out 01/10/2025 01/10/2025 025 12:51 PM EST Respiratory Rule-Out 01/10/2025 01/10/202526/2 025 11:59 PM EST Respiratory Rule-Out 03/19/2025 [...] documented as of this encounter Care Teams Prosthetist Relationship Specialty Start Date End Date Viridiana Plaza NP [address] [place] [address] PCP - General Family Medicine 12/10/22 09/23/23 Italo Camejo NP [address] [place] [address], [address] [place] [address] PCP - General Family Medicine 09/24/23 03/19/25 Lizandro Khan NP [address] [place] [address] PCP - General Family Medicine 03/20/25 07/22/25 Lizandro Khan NP [address] [place] [address] PCP - General Family Medicine 07/23/25 Rachel Pagan MD [address] [place] [phone] Consulting Physician Oncology 11/11/22 Yesy Acuna, ROLDAN [address] [place] [address] Nurse Navigator 11/12/22 03/05/25 Pati Rucker APRN [address] [place] [phone] Nurse Practitioner Oncology 12/21/22 Sosa Gardner APRN [address] [place] [phone] Nurse Practitioner Oncology 06/24/23 Linda Elizabeth DO [address] [place] [address] Consulting Physician Oncology 03/01/25 08/28/25 Elsa Vazquez [address] [place] [address] Nurse Navigator Oncology 06/05/25 07/19/25 Angie Murray RN [address] [place] [place] [address] Nurse Navigator Oncology 06/26/25 documented as of this encounter
--- OUTSIDE RECORDS SUMMARY | 2025-09-30 11:46 | XMS_ITS | Encounter Summary ---
Author Organization Healthcare Address [address] [place] [address] Care Team Providers Care Insulation Foreman Name Role Phone BashirItalo VICKY Primary Care Provider [phone] Lizandro Khan APRN Primary Care Provider [phone] Encounter Details Date Type Department Care Team (Late Contact Info) Description 02/28/2025 Orders Only External Location [address] [place] [address] Provider, External Social History Tobacco Use Types [...] [address], 1st [place] [address] Pepe Cabrrea MD [address] [place] [address] documented as of this encounter Procedures Procedure Name Priority Date/Time Associated Diagnosis Comments CT OUTSIDE IMAGES 02/28/2025 5:59 PM EDT documented in this encounter Results * CT OUTSIDE IMAGES (02/28/2025 5:59 PM EDT) Anatomical Region Laterality Modality Computed Tomogra phy 02/28/2025 5:59 PM EDT us External Provider IMG CT PROCEDURES Edited Resul t - [...] documented as of this encounter Care Teams Insulation Foreman Relationship Specialty Start Date End Date Italo Camejo APRN [address] [place] [address] PCP - General 11/18/23 08/21/25 Lizandro Khan APRN [address] [facility] [place] [address] PCP - General 08/22/25 documented as of this encounter
--- OUTSIDE RECORDS SUMMARY | 2025-09-30 11:46 | XMS_ITS | Encounter Summary ---
Author Organization [facility] nter Address [address] [place] [address] Care Team Providers Care Engineering Faculty Member Name Role Phone Lizandro Khan CUSTOMER QUALITY ENGINEER Primary Care Provider [phone] Rachel Pagan MD Unavailable [phone] Yesy Acuna RN Unavailable [phone] CUSTOMER QUALITY ENGINEER Primary Care Provider [phone] Pati Rucker SOLE DYER Unavailable [phone] Sosa Gardner SOLE DYER Unavailable [phone] Italo Camejo CUSTOMER QUALITY ENGINEER Primary Care Provider [phone] Linda Elizabeth DO Unavailable Lizandro Khan CUSTOMER QUALITY ENGINEER Primary Care Provider [phone] Elsa Vazquez Unavailable Unavailable Angie Murray RN Unavailable Unavailab Lizandro Islas CUSTOMER QUALITY ENGINEER Primary Care Provider [phone] Reason for Visit * Reason Comments Med Refill Encounter Details Date Type Department Care Team (Late st Contact Info) Description 08/08/2022 Refill [facility] [address], [address] [place] [address] Genevieve Paredes, GRAHAM [address] [place] [address] Social History Tobacco Use Types [...] ONCOLOGY PRACTICE [address], 10th Floor [place] [phone] Rachel Pagan MD [address] [place] [address] 10/10/2025 10:30 AM EST Appointment [facility] [address] 11th [place] [address] 11/02/2025 9:30 AM EST Office Visit [facility] [address] [place] [address] Ky Jewell MD [address] [place] [phone] 11/05/2025 2:45 PM EST Office Visit [facility] [address], 8[address] Floor [place] [phone] Ruddy Mayes MD [address] [place] [phone] 12/31/2025 11:30 AM EST Office Visit [facility] [address] [place] [address] 01/22/2026 9:00 AM EDT Office Visit [facility] [address], [address] [place] [address] Allyn Toribio, GRAHAM [address] [place] [address] documented as of this encounter Visit Diagnoses [...] already noted to be in contact isolation. Tial Dia 06/12/25 1:24 PM 05/15/2025 05/15/2025 06/14/2025 7:28 PM E DT documented as of this encounter Care Teams Engineering Faculty Member Relationship Specialty Start Date End Date Lizandro Khan NP [address] [place] [address] PCP - General 12/09/22 Viridiana Plaza NP [address] [place] [phone] PCP - General Family Medicine 12/10/22 09/23/23 Italo Camejo NP [address] [place] [address], [address] [place] [address] PCP - General Family Medicine 09/24/23 03/19/25 Lizandro Khan NP [address] [place] [address] PCP - General Family Medicine 03/20/25 07/22/25 Lizadnro Khan NP [address] [place] [address] PCP - General Family Medicine 07/23/25 Rachel Pagan MD [address] [place] [phone] Consulting Physician Oncology 11/11/22 Yesy Acuna, ROLDAN [address] [place] [address] Nurse Navigator 11/12/22 03/05/25 Pati Rucker APRN [address] [place] [phone] Nurse Practitioner Oncology 12/21/22 Sosa Gardner APRN [address] [place] [phone] Nurse Practitioner Oncology 06/24/23 Linda Elizabeth DO [address] [place] [address] Consulting Physician Oncology 03/01/25 08/28/25 Elsa Vazquez [address] [place], [place] [address] Nurse Navigator Oncology 06/05/25 07/19/25 Angie Murray, ROLDAN [address] [place], [place] [address] Nurse Navigator Oncology 06/26/25 documented as of this encounter
--- OUTSIDE RECORDS SUMMARY | 2025-09-30 11:46 | XMS_ITS | Encounter Summary ---
Author Organization Healthcare Address [address] [place] [address] Care Team Providers Care Cup Setter Lockstitch Name Role Phone BashirItalo VICKY Primary Care Provider Lizandro Khan APRN Primary Care Provider [phone] Encounter Details Date Type Department Care Team (Late Contact Info) Description 02/28/2025 Orders Only External Location [address] [place] [address] Provider, External Social History Tobacco Use Types [...] [address], [address] [place] [address] Pepe Cabrera MD [address] [place] [address] documented as of this encounter Procedures Procedure [...] documented as of this encounter Care Teams Cup Setter Lockstitch Relationship Specialty Start Date End Date Italo Camejo APRN [address] [place] [address] PCP - General 11/18/23 08/21/25 Lizandro Khan APRN [address] [place] [address] PCP - General 08/22/25 documented as of this encounter
--- OUTSIDE RECORDS SUMMARY | 2025-09-30 11:46 | XMS_ITS | Encounter Summary ---
Author Organization [facility] Address [address] [place] [address] Care Team Providers Care Motor Equipment Sergeant Name Role Phone Lizandro Khan MERCHANDISE FLOW TEAM MEMBER Primary Care Provider [phone] Rachel Pagan MD Unavailable [phone] Yesy Acuna RN Unavailable [phone] MERCHANDISE FLOW TEAM MEMBER Primary Care Provider [phone] Pati Rucker DATA TECHNICAL LEAD Unavailable [phone] Sosa Gardner DATA TECHNICAL LEAD Unavailable [phone] Italo Camejo MERCHANDISE FLOW TEAM MEMBER Primary Care Provider [phone] Linda Elizabeth DO Unavailable Lizandro Khan MERCHANDISE FLOW TEAM MEMBER Primary Care Provider [phone] Elsa Vazquez Unavailable Unavailable Angie Murray RN Unavailable Unavailab Lizandro Islas MERCHANDISE FLOW TEAM MEMBER Primary Care Provider [phone] Reason for Referral * Imaging (Routine) - Closed Specialty Diagnoses / Procedures Referred By Dorothy t Referred To Contact Radiology Diagnoses Adenocarcinoma Procedures PET/CT bone skull base to mid thigh Gunjan Demarco MD [address] [facility] [place] [address] Phone: tel: fax: Referral ID Status Reason Start Date Expiration Date Visits Re quested Visits Authorized [id number] Closed 11/04/2022 11/04/2023 1 1 * Consultation (Routine) - Closed Specialty Diagnoses / Procedures Referred By Dorothy ceballos Referred To Contact Oncology Diagnoses Adenocarcinoma Procedures MI OFFICE/OUTPATIENT [facility] MDM 60-74 MINUTES Gunjan Demarco MD [address] [facility] [place] [address] Phone: tel: fax: Referral ID Status Reason Start Date Expiration Date V isits Requested Visits Authorized [id number] Closed Specialty Services Required 11/04/2022 11/04/2023 1 1 Encounter Details Date Type Department Care Team (Late st Contact Info) Description 11/04/2022 Orders Only [facility] [address] 8th [place] [address] Doc Bray MA [address] [place] [address] Adenocarcinoma Social History Tobacco Use Types Packs/Day [...] of Assessment Author No 10/27/2022 3:29 PM Demteri Moser RN * Do you have serious [...] as of this encounter Mental Status * Question Answer Entry Date Author Level of Consciousness Alert 11/04/2022 4:00 AM Don Dailey RN Orientation Level Oriented X4 11/04/2022 4:00 AM Don Dailey RN Cognition Follows commands 11/04/2022 4:00 AM Don Cary RN Speech Clear 11/04/2022 4:00 AM Don Dailey RN L Pupil Reaction Brisk 11/04/2022 4:00 AM Don Cary RN L Pupil Size (mm) 3 11/04/2022 4:00 AM Don Dailey RN R Pupil Reaction Brisk 11/04/2022 4:00 AM Don Cary RN R Pupil Size (mm) 3 11/04/2022 4:00 AM Don Dailey RN R Hand Grasp Strong 11/04/2022 4:00 AM Don Dailey RN L Hand Grasp Strong 11/04/2022 4:00 AM Don Dailey RN R Foot Plantar Flexion Moderate 11/04/2022 4:00 AM Don Dailey RN L Foot Plantar Flexion Moderate 11/04/2022 4:00 AM oDn Dailey RN R Pupil Shape Round 11/04/2022 4:00 AM Don Conrad RN L Pupil Shape Round 11/04/2022 4:00 AM Don Conrad RN * Confusion Assessment Method (CAM) Question Answer Entry Date Author Acute Onset and Fluctuating Course (1A) No 11/04/2022 8:12 AM EST Glenda, Jessica, FUR CLEANER Acute Onset and Fluctuating Course (1B) No 11/04/2022 8:12 AM EST Glenda, Jessica, FUR CLEANER Inattention (2) No 11/04/2022 8:12 AM EST Glenda Jessica, FUR CLEANER Disorganized Thinking (3) No 2021 8:12 AM EST Glenda Jessica, FUR CLEANER Rate Patient's Level of Consciousness (4) Alert (Normal), No 11/04/2022 8:12 AM EST Glenda Jessica, FUR CLEANER Delirium Present No 11/04/2022 8:12 AM EST Glenda, Jessica, FUR CLEANER * Because of a physical, mental, or emotional condition, do you have serious difficulty concentrating, remembering, or making decisions? (5 years old or older) Answer Entry Date Author No 10/27/2022 3:29 PM Demetri Moser RN documented in this encounter Plan of Treatment Upcoming Encounters Date Type Department Care Team (Late st Contact Info) Description 10/04/2025 8:45 AM EST Office Visit [facility] [address] [place] [address] Rachel Pagan MD [address] [place] [address] 10/10/2025 10:30 AM EST Appointment [facility] [address] [place] [address] 11/02/2025 9:30 AM EST Office Visit [facility] [address] [place] [address] Ky Jewell MD [address] [place] [address] 11/05/2025 2:45 PM EST Office Visit [facility] [address] [place] [address] Ruddy Mayes MD [address] [facility] [place] [address] 12/31/2025 11:30 AM EST Office Visit [facility] [address] [facility] [place] [id number] 01/22/2026 9:00 AM EDT Office Visit [facility] [address] 1st Floor [facility] [place] [address] Allyn Toribio NP [address] [place] [address] Scheduled Referrals Name Type Priority Associated Diagnoses [...] PM, Electronically Signed By: Sukhdeep Her MD us Gunjan Demarco MD IMG CT PROCEDURES Final [...] documented as of this encounter Care Teams Motor Equipment Sergeant Relationship Specialty Start Date End Date Lizandro Khan NP [address] [place] [address] PCP - General 12/09/22 Viridiana Plaza NP [address] [place] [id number] PCP - General Family Medicine 12/10/22 09/23/23 Italo Camejo NP [address] [place] [address], [address] [place] [address] PCP - General Family Medicine 09/24/23 03/19/25 Lizandro Khan NP [address] [place] [address] PCP - General Family Medicine 03/20/25 07/22/25 Lizandro Khan NP [address] [place] [address] PCP - General Family Medicine 07/23/25 Rachel Pagan MD [address] [place] [address] Consulting Physician Oncology 11/11/22 Yesy Acuna, RN [address] [place] [address] Nurse Navigator 11/12/22 03/05/25 Pati Rucker APRN [address] [place] [address] Nurse Practitioner Oncology 12/21/22 Sosa Gardner APRN [address] [place] [address] Nurse Practitioner Oncology 06/24/23 Linda Elizabeth DO [address] [place] [address] Consulting Physician Oncology 03/01/25 08/28/25 Elsa Vazquez [address] [place] [address] Nurse Navigator Oncology 06/05/25 07/19/25 Angie Murray, ROLDAN [address] [place] [address] Nurse Navigator Oncology 06/26/25 documented as of this encounter
--- OUTSIDE RECORDS SUMMARY | 2025-09-30 11:46 | XMS_ITS | Encounter Summary ---
Author Organization Healthcare Address [address] [place] [address] Care Team Providers Care Field Marketing Specialist Name Role Phone BashirItalo VICKY Primary Care Provider [phone] Lizandro Khan APRN Primary Care Provider [phone] Encounter Details Date Type Department Care Team (Late st Contact Info) Description 02/28/2025 Orders Only External Location [address] [place] [address] Sosa Gardner, RETORT FIRER [address] [place], [place] [id number] Social History Tobacco Use Types Packs/Day Years [...] Visit [place] [facility] [address] [place] [address] Pepe Cabrera MD [address] [place] [address] documented as of this encounter Procedures Procedure Name Priority Date/Time Associated Diagnosis Comments MR OUTSIDE IMAGES 02/28/2025 10:55 AM EDT documented in this encounter Results * MR transfer of outside films (02/28/2025 10:55 AM EDT) Anatomical Region Laterality Modality Magnetic Resonan ce 02/28/2025 10:5 5 AM EDT us Sosa Gardner RETORT FIRER IMG MRI PROCEDURES Edited Re sult - Final documented in this encounter Visit Diagnoses Not on filedocumented in this encounter Additional Health Concerns Assessment Noted Time A fall risk assessment has been complete d for the patient 12/07/2024 3:30 PM EST A Body Mass Index follow-up plan has been documented for the patient 12/07/2024 2:53 PM EST documented as of this encounter Care Teams Field Marketing Specialist Relationship Specialty Start Date End Date Italo Camejo APRN [address] [place] [address] PCP - General 11/18/23 08/21/25 Lizandro Khan APRN [address] [place] [address] PCP - General 08/22/25 documented as of this encounter
--- NOTE | 2025-09-30 11:47 | HMH.EDCP ---
Discharge Plan Disposition Patient Disposition: Home, Self-Care Prescriptions Prescriptions: New Spiriva Respimat 1.25 mcg/actuation mist 2 inh inhalation .prn Qty: 4 0RF amoxicillin-pot clavulanate 875-125 mg tablet 1 tab PO BID 7 Days Qty: 14 0RF doxycycline hyclate 100 mg capsule 100 mg PO BID 7 Days Qty: 14 0RF No Action cyclobenzaprine 10 mg tablet 10 mg PO DAILY Patient Comments: TAKE 1 TABLET BY MOUTH THREE TIMES DAILY NEEDED FOR MUSCLE RELAXATION metformin 500 mg tablet 500 mg PO BID Patient Comments: TAKE 1 TABLET BY MOUTH TWICE DAILY atorvastatin 80 mg tablet 80 mg PO DAILY Patient Comments: TAKE 1 TABLET BY MOUTH EVERY NIGHT AT BEDTIME potassium chloride 10 mEq capsule, extended release 10 meq PO DAILY Patient Comments: TAKE 1 CAPSULE BY MOUTH TWICE DAILY WITH FOOD carvedilol 6.25 mg tablet 6.25 mg PO DAILY Patient Comments: TAKE 1 TABLET BY MOUTH TWICE DAILY WITH FOOD carvedilol [Coreg] 12.5 mg Tablet 12.5 mg PO DAILY ipratropium-albuterol 0.5 mg-3 mg(2.5 mg base)/3 mL solution for nebulization 3 ml INHALATION NEEDED PRN (Reason: Shortness Of Breath Or Wheezing) Patient Comments: INHALE 1 VIAL VIA NEBULIZER EVERY 6 HOURS ipratropium-albuterol [DuoNeb] 0.5 mg-3 mg(2.5 mg base)/3 mL Solution For Nebulization 3 ml INHALATION NEEDED PRN (Reason: Shortness Of Breath Or Wheezing) bumetanide 2 mg tablet 2 mg PO DAILY Patient Comments: TAKE 1 TABLET BY MOUTH ONCE DAILY isosorbide mononitrate 20 mg tablet 20 mg PO BID Patient Comments: TAKE 1 TABLET BY MOUTH TWICE DAILY ondansetron 8 mg tablet,disintegrating 8 mg PO NEEDED PRN (Reason: Nausea And Vomiting) Patient Comments: DISSOLVE 1 TABLET ON TONGUE FOUR TIMES DAILY NEEDED FOR NAUSEA OR VOMITING pantoprazole [Protonix] 20 mg Tablet,Delayed Release (Dr/Ec) 40 mg PO DAILY magnesium oxide 400 mg (241.3 mg magnesium) tablet 400 mg PO DAILY Patient Comments: TAKE 1 TABLET BY MOUTH ONCE DAILY WITH FOOD gabapentin 800 mg tablet 800 mg PO TID Patient Comments: TAKE 1 TABLET BY MOUTH THREE TIMES DAILY valproic acid (as sodium salt) 250 mg/5 mL solution 250 mg PO DAILY Patient Comments: TAKE 1 TEASPOONFUL (5 ML) BY MOUTH BY MOUTH EVERY 8 HOURS pantoprazole 40 mg tablet,delayed release (DR/EC) 40 mg PO DAILY Patient Comments: TAKE 1 TABLET BY MOUTH ONCE DAILY dexamethasone 4 mg tablet 4 mg PO BID Patient Comments: TAKE 2 TABLETS BY MOUTH TWICE DAILY lisinopril 10 mg tablet 10 mg PO DAILY Patient Comments: TAKE 1 TABLET BY MOUTH ONCE DAILY folic acid 1 mg tablet 1 mg PO DAILY Patient Comments: STARTING SEVEN DAYS BEFORE FIRST TREATMENT TAKE 1 TABLET BY MOUTH ONCE DAILY AND KEEP TAKING UNTIL 21 DAYS AFTER THE LAST TREATMENT DIRECTED loratadine 10 mg tablet 10 mg PO DAILY Patient Comments: TAKE 1 TABLET BY MOUTH ONCE DAILY duloxetine 60 mg capsule,delayed release(DR/EC) 60 mg PO DAILY Patient Comments: TAKE 1 CAPSULE BY MOUTH EVERY MORNING Eliquis 5 mg tablet 5 mg PO DAILY Patient Comments: TAKE 1 TABLET BY MOUTH TWICE DAILY Jardiance 10 mg tablet 10 mg PO DAILY Patient Comments: TAKE 1 TABLET BY MOUTH EVERY MORNING rivaroxaban 2.5 mg tablet 2.5 mg PO DAILY Patient Comments: TAKE 1 TABLET BY MOUTH TWICE DAILY Referrals Follow up/Referrals: Lizandro Khan APRN [Primary Care Provider, Medical] - See instructions Activity Restrictions/Add. Instructions Additional Instructions/Restrictions: Your workup today shows a pneumonia in the right lung. I am prescribing you 2 antibiotics, Augmentin and doxycycline. Take these as prescribed. I am also refilling your Spiriva. Take this as prescribed. I do encourage you to follow with your primary care doctor and lung specialist and to return to the emergency department if you have any new or worsening symptoms or become concerned for your health for any reason. Clinical Impressions Clinical Impression: Pneumonia Print Language Print Language: Estonian Discharge ED Provider: Gray Elizondo HPI General Chief Complaint: Shortness of Breath/Dyspnea Stated Complaint: Has stage 4 lung cancer, SOA Time Seen by Provider: 09/30/25 11:36 Mode of Arrival: Wheelchair Source of Information: Patient and Relative Description of Symptoms (Recalled from ER Triage Doc. by RN): Pt presents with c/o SOA, and cough for around a week now. Pt has a hx of stage 4 lung cancer and is normally on 2L nasal cannula. Pt arrived on no oxygen. History of Present Illness HPI narrative: Jose Sims is a 64-year-old female with a history of stage IV lung cancer metastasized to the brain status post brain surgery and on Keytruda through the [facility], COPD, 2 L nasal cannula at baseline, current tobacco use, CHF who presents to the emergency department with daughter, whom she lives with, for concern for shortness of breath, cough x 1 week. Mother states that she herself and her daughter had a respiratory illness a week before she developed symptoms and believes she may have caught that. She states that she has had an increased productive cough of yellow sputum and some mild increase shortness of breath. She has not had increased her oxygen at home. She does continue to smoke outside the home. She denies any chest pain or fever. Related Data Home Medications ?Medication ?Instructions ?Recorded ?Confirmed apixaban 5 mg tablet (Eliquis) 5 mg PO DAILY 09/30/25 09/30/25 atorvastatin 80 mg tablet 80 mg PO DAILY 09/30/25 09/30/25 bumetanide 2 mg tablet 2 mg PO DAILY 09/30/25 09/30/25 carvedilol 12.5 mg tablet (Coreg) 12.5 mg PO DAILY 09/30/25 09/30/25 carvedilol 6.25 mg tablet 6.25 mg PO DAILY 09/30/25 09/30/25 cyclobenzaprine 10 mg tablet 10 mg PO DAILY 09/30/25 09/30/25 dexamethasone 4 mg tablet 4 mg PO BID 09/30/25 09/30/25 duloxetine 60 mg capsule,delayed 60 mg PO DAILY 09/30/25 09/30/25 release empagliflozin 10 mg tablet 10 mg PO DAILY 09/30/25 09/30/25 (Jardiance) folic acid 1 mg tablet 1 mg PO DAILY 09/30/25 09/30/25 gabapentin 800 mg tablet 800 mg PO TID 09/30/25 09/30/25 ipratropium 0.5 mg-albuterol 3 mg 3 ml inhalation NEEDED PRN 09/30/25 09/30/25 (2.5 mg base)/3 mL nebulization Shortness Of Breath Or Wheezing soln ipratropium 0.5 mg-albuterol 3 mg 3 ml inhalation NEEDED PRN 09/30/25 09/30/25 (2.5 mg base)/3 mL nebulization Shortness Of Breath Or Wheezing soln isosorbide mononitrate 20 mg tablet 20 mg PO BID 09/30/25 09/30/25 lisinopril 10 mg tablet 10 mg PO DAILY 09/30/25 09/30/25 loratadine 10 mg tablet 10 mg PO DAILY 09/30/25 09/30/25 magnesium oxide 400 mg (241.3 mg 400 mg PO DAILY 09/30/25 09/30/25 magnesium) tablet metformin 500 mg tablet 500 mg PO BID 09/30/25 09/30/25 ondansetron 8 mg disintegrating 8 mg PO NEEDED PRN Nausea And 09/30/25 09/30/25 tablet Vomiting pantoprazole 20 mg tablet,delayed 40 mg PO DAILY 09/30/25 09/30/25 release (Protonix) pantoprazole 40 mg tablet,delayed 40 mg PO DAILY 09/30/25 09/30/25 release potassium chloride 10 mEq 10 meq PO DAILY 09/30/25 09/30/25 capsule,extended release rivaroxaban 2.5 mg tablet 2.5 mg PO DAILY 09/30/25 09/30/25 valproic acid (as sodium salt) 250 250 mg PO DAILY 09/30/25 09/30/25 mg/5 mL oral solution Previous Rx's ?Medication ?Instructions ?Recorded amoxicillin 875 mg-potassium 1 tab PO BID 7 days #14 tabs 09/30/25 clavulanate 125 mg tablet doxycycline hyclate 100 mg capsule 100 mg PO BID 7 days #14 caps 09/30/25 tiotropium bromide 1.25 2 inh inhalation .prn #4 grams 09/30/25 mcg/actuation mist for inhalation (Spiriva Respimat) Allergies Allergy/AdvReac Type Severity Reaction Status Date / Time cephalexin (From Keflex) AdvReac Other Verified 08/22/25 02:29 ciprofloxacin (From Cipro) AdvReac Other Verified 08/22/25 02:29 [facility] Disclaimer: The information contained in this section may have been updated after the patient was seen, as this information can be updated by other users. Medical History (Updated 09/30/25 @ 12:49 by Gray Elizondo MD) Low hemoglobin Stroke (cerebrum) Brain cancer Lung cancer Social History (Updated 08/22/25 @ 03:31 by Kal Wall MD) Smoking Status: Current every day smoker alcohol intake: never current occupational status: previously employed Travel in the last 8 weeks?: None Have you lived/traveled outside US in past 30 days?: No Contact w/someone who lives/traveled outside US past 30 days?: No Exposure to someone with infectious disease in past 14 days?: No Do you have a fever (greater than 100.4 F or 38 C)?: No Have you tested positive for COVID-19?: No Exposed to someone with COVID-19 in past 14 days?: No Do you have a sore throat?: No Do you have a cough?: No Do you have any weakness?: No Do you have any diarrhea?: No Are you experiencing any unusual bleeding?: No Do you have any muscle aches/pain?: No Do you have any abdominal pain?: No Are you experiencing loss of taste or smell?: No ROS Obtained: Yes Systems reviewed as appropriate & no additional complaints except as documented Physical Exam General General appearance: alert and in no apparent distress Head Head exam: atraumatic Eye Eye exam: Present normal appearance ENT ENT exam: Present normal external ear exam Neck Neck exam: Present full ROM Chest Chest inspection: Present symmetric chest wall rise Respiratory Respiratory exam: Present respiratory distress (mild increased work with breathing) and wheezes (mild wheezing bilaterally); Absent normal lung sounds bilaterally (mild crackles at the right base) or stridor Cardiovascular Cardiovascular exam: Present regular rate and normal rhythm Abdominal Exam Abdominal exam: Present soft; Absent distention, tenderness, guarding or rebound Extremities Exam Extremities exam: Present normal inspection Back Exam Back exam: Present normal inspection Neurological Exam Neurological exam: Present alert and oriented X3 Psychiatric Psychiatric exam: Present normal affect Skin Skin exam: Present warm and dry HEART Score HEART Score HEART Score assessment performed?: Yes History (anamnesis): Slightly suspicious ECG: Normal Age: >65 years Risk factors: 1-2 risk factors Troponin: </= normal limit HEART Score: 3 Critical Care Critical Care Time Critical Care Time: No Medical Decision Making Marcello Inquiry Pt receiving controlled substance: No Vital Signs Vital Signs: 09/30/25 11:19 09/30/25 11:32 09/30/25 12:01 Temperature 98.1 F Temperature Source Oral Pulse Rate 86 87 Pulse Rate [Right] 86 Respiratory Rate 22 23 16 Blood Pressure 130/56 L 101/59 L Blood Pressure [Left Arm] 114/81 Blood Pressure Mean [Left Arm] 92 Blood Pressure Source [Left Arm] Automatic Cuff Blood Pressure Position [Left Arm] Sitting 02 Sat by Pulse Oximetry 92 L 95 97 Oxygen Delivery Method Room Air Room Air Room Air Oxygen Flow Rate (LPM) 09/30/25 12:08 Temperature Temperature Source Pulse Rate Pulse Rate [Right] Respiratory Rate Blood Pressure Blood Pressure [Left Arm] Blood Pressure Mean [Left Arm] Blood Pressure Source [Left Arm] Blood Pressure Position [Left Arm] 02 Sat by Pulse Oximetry 95 Oxygen Delivery Method Nasal Cannula Oxygen Flow Rate (LPM) 2 Lab Data Labs: Lab Results 09/30/25 11:45: SARS-CoV-2 (PCR) Not detected, Influenza A Untype (PCR) Not detected, Influenza Type B (PCR) Not detected 09/30/25 11:55: WBC 4.2 L, RBC 2.12 L, Hgb 8.0 L, Hct 25.0 L, MCV 117.9 H, MCH 37.7 H, MCHC 32.0, RDW 15.8, Plt Count 179, MPV 9.6, Neut % (Auto) 70.1, Lymph % (Auto) 17.7, Wilcox % (Auto) 8.9, Eos % (Auto) 2.9, Baso % (Auto) 0.2, Neut # (Auto) 2.9, Lymph # (Auto) 0.7, Wilcox # (Auto) 0.4, Eos # (Auto) 0.1, Baso # (Auto) 0.0, VBG pH 7.42 H, VBG pCO2 48.1, VBG pO2 49.8 H, VBG HCO3 30.4 H, VBG Total CO2 31.8 H, VBG O2 Saturation 79.6 H, VBG Base Excess 5.9 H, VBG Lactic Acid 3.2 H, Sodium 141, Potassium 3.7, Chloride 99, Carbon Dioxide 36 H, Anion Gap 9.7, BUN 13, Creatinine 1.00, Estimated Creat Clear 50, Estimated GFR 55 L, Est GFR ( Amer) 67, Glucose 157 H, Calcium 8.9, Total Bilirubin 0.5, AST 23, ALT 17, Alkaline Phosphatase 75, Troponin I < 0.01, NT-Pro-B Natriuret Pep 811 H, Total Protein 6.9, Albumin 3.4 L, Globulin 3.5 H, Albumin/Globulin Ratio 1.0 L 09/30/25 11:55 09/30/25 11:55 Response Orders (Tests/Meds): ED MEDICATIONS Discontinued Medications Generic Name Dose Route Start Last Admin Trade Name Basilq PRN Reason Stop Dose Admin Albuterol/Ipratropium 3 ml 09/30/25 11:48 09/30/25 12:30 Ipratropium/Albuterol 3 Ml Neb IH 09/30/25 11:49 3 ml ONCE ONE Administration Methylprednisolone Sodium Succinate 80 mg 09/30/25 11:48 09/30/25 12:29 Methylprednisolone Sod Succ 125mg Vial IV 09/30/25 11:49 80 mg ONCE ONE Administration ORDERS Category Date Time Status CXR --portable [XR chest portable] Stat Exams 09/30/25 11:48 Completed BNP [NT Pro Brain Natriuretic Pep.] Stat Lab 09/30/25 11:55 Completed CBC w/Auto Diff [Complete Blood Count Auto Diff] Stat Lab 09/30/25 11:55 Completed CMP [Comprehensive Metabolic Panel] Stat Lab 09/30/25 11:55 Completed Rapid PCR Covid and Flu A/B Stat Lab 09/30/25 11:45 Received Troponin I Q3H Lab 09/30/25 15:00 Ordered Troponin I Q3H Lab 09/30/25 18:00 Ordered Troponin I Stat Lab 09/30/25 11:55 Completed VBG [Venous Blood Gas] Stat RT 09/30/25 11:55 Completed ECG Data Tracing #1: Attestation: I reviewed this ECG and interpreted as documented below: ECG Narrative: NSR. No ST elevation or depression. QTc of 426 MDM Narrative Medical Decision Narrative: Jose Sims is a 64-year-old female with a history of stage IV lung cancer metastasized to the brain status post brain surgery and on Keytruda through the [facility], COPD, 2 L nasal cannula at baseline, current tobacco use, CHF who presents to the emergency department with daughter, whom she lives with, for concern for shortness of breath, cough x 1 week. Mother states that she herself and her daughter had a respiratory illness a week before she developed symptoms and believes she may have caught that. She states that she has had an increased productive cough of yellow sputum and some mild increase shortness of breath. She has not had increased her oxygen at home. She does continue to smoke outside the home. She denies any chest pain or fever. On arrival, patient's blood pressure 101/59, heart rate within normal meds, afebrile, oxygen saturation 97% on baseline 2 L nasal cannula. Physical exam, stated above, revealed chronically ill-appearing female in mild increased work of breathing. She has a productive cough. Cardiopulmonary exam reveals wheezing bilateral lung baptiste. Mild crackles at the right base. She does not appear volume overloaded. Differential diagnosis includes, but is not limited to: Viral respiratory illness, pneumonia, ACS, pericarditis, myocarditis, among others. The most morbid conditions were considered and workup was based on these. PE was a consideration, however patient is not tachycardic and not hypoxic on her baseline oxygen requirement and is already anticoagulated. Workup in the emergency department included: Chest x-ray, EKG, CBC with differential, CMP, troponin, VBG with lactate, BNP. Patient was given a DuoNeb treatment as well as 80 mg of dexamethasone due to her wheezing, likely secondary to her COPD. She also states that she previously had a Spiriva inhaler but ran out. She does have albuterol nebulizer treatments at home. Workup shows chronically low white blood cell count of 4.2, stable and chronically low hemoglobin of 8 and hematocrit of 25, platelets normal at 179. pH showed very mild alkalosis at 7.42, pCO2 normal at 48.1, bicarb mildly elevated at 30.4. Lactate is mildly elevated at 3.2. Electrolytes within normal limits. No YUMIKO. Bilirubin and LFTs within normal limits. Troponin less than 0.01. NT proBNP somewhat elevated at 811 but no evidence of volume overload on exam. Negative COVID and flu testing. EKG was interpreted by me personally shows no evidence of ischemia. See interpretation above. X-ray imaging was interpreted by me personally. There is a consolidation in the right lower lung that likely represents pneumonia or mass. See radiology report for details. On reassessment, patient states that she feels well and is still on her baseline home O2. I do feel that she likely has a component of pneumonia given her increased cough and shortness of breath. Will prescribe course of Augmentin as well as doxycycline. Will attempt to refill patient Spiriva as well as patient states that her primary care physician is currently out of office. Patient was given strict return precautions. All questions were answered. She and daughter demonstrated understanding and were in agreement with this plan. She was then discharged from the emergency department in stable condition.
--- OUTSIDE RECORDS SUMMARY | 2025-09-30 11:47 | XMS_ITS | Patient Health Record ---
Author Organization [facility] Address [address] [place] [address] [place] [address] Care Team Providers Care Tailings Man Name Role Phone Jono Armenta Primary Care Provider JuliannaYarelis Unavailable [phone] Reason For Referral No Information Medications Medication [...] Medical History History ICD Code HTN CHF SD
--- OUTSIDE RECORDS SUMMARY | 2025-09-30 11:47 | XMS_ITS | Encounter Summary ---
Author Organization Healthcare Address [address] [place] [address] Care Team Providers Care Balling Machine Operator Name Role Phone BashirItalo VICKY Primary Care Provider [phone] Lizandro Khan APRN Primary Care Provider [phone] Encounter Details Date Type Department Care Team (Late Contact Info) Description 02/28/2025 Orders Only External Location [address] [place] [address] Provider, External Social History Tobacco Use Types [...] [address] [place] [address] Pepe Cabrera MD [address] [place] [address] documented as of this encounter Procedures Procedure [...] documented as of this encounter Care Teams Balling Machine Operator Relationship Specialty Start Date End Date Italo Camejo APRN [address] [place] [address] PCP - General 11/18/23 08/21/25 Lizandro Khan APRN [address] [place] [address] PCP - General 08/22/25 documented as of this encounter
--- OUTSIDE RECORDS SUMMARY | 2025-09-30 11:47 | XMS_ITS | Patient Health Record ---
Author Organization [facility] Address [address] [place] [address] Care Team Providers Care Aoc Operations Intelligence Chief Name Role Phone MadisonViridiana Primary Care Provider Reason For Referral No [...] W/U Status Risk Notes Problem Allergic rhinitis (10804339) Allergic rhinitis, unspecified (J30.9) Active confirmed Plan Of Treatment No Information Insurance Providers Payer Name Payer Address Payer Phone Subscriber Number Group Number Insured Name Patient Relationship to Insured Coverage Start Date Coverage End Date [facility] Medicare [address] [address] [place] [phone] [id number] Jose Sims Self - patient is the insured [place] [address] [id number] Jose Sims Self - patient is the insured
--- OUTSIDE RECORDS SUMMARY | 2025-09-30 11:47 | XMS_ITS | Encounter Summary ---
Author Organization Healthcare Address [address] [place] [address] Care Team Providers Care Gun Examiner Name Role Phone Italo Camejo VICKY Primary Care Provider [phone] Lizandro Khan APRN Primary Care Provider [phone] Encounter Details Date Type Department Care Team (Late st Contact Info) Description 06/12/2025 Orders Only External Location [address] [place] [address] Rachel Pagan MD [address] [place] [address] Social History Tobacco Use Types [...] Visit [place] [facility] [address] [place] [address] Pepe Cabrera MD [address] [place] [address] documented as of this encounter Procedures Procedure Name Priority Date/Time Associated Diagnosis Comments MR OUTSIDE IMAGES 06/12/2025 9:39 PM EDT documented in this encounter Results * MR transfer of outside films (06/12/2025 9:39 PM EDT) Anatomical Region Laterality Modality Magnetic Resonan ce 06/12/2025 9:39 PM EDT Rachel Soriano MD IMG MRI PROCEDURES Edited Result - Final documented in this encounter Visit Diagnoses Not on filedocumented in this encounter Additional Health Concerns Assessment Noted Time A fall risk assessment has been complete d for the patient 03/29/2025 12:40 PM EDT A Body Mass Index follow-up plan has been documented for the patient 03/29/2025 1:49 PM EDT documented as of this encounter Care Teams Gun Examiner Relationship Specialty Start Date End Date Italo Camejo APRN [address] [place] [address] PCP - General 11/18/23 08/21/25 Lizandro Khan APRN [address] [place] [address] PCP - General 08/22/25 documented as of this encounter
--- OUTSIDE RECORDS SUMMARY | 2025-09-30 11:47 | XMS_ITS | Encounter Summary ---
Author Organization Healthcare Address [address] [place] [address] Care Team Providers Care Roving Teller Name Role Phone BashirItalo VICKY Primary Care Provider [phone] Lizandro Khan APRN Primary Care Provider [phone] Encounter Details Date Type Department Care Team (Late Contact Info) Description 06/12/2025 Orders Only External Location [address] [place] [address] Provider, External Social History Tobacco Use Types [...] [address] [place] [address] Pepe Cabrera MD [address] [place] [address] documented as of this encounter Procedures Procedure [...] documented as of this encounter Care Teams Roving Teller Relationship Specialty Start Date End Date Italo Camejo APRN [address] [place] [address] PCP - General 11/18/23 08/21/25 Lizandro Khan APRN [address] [place] [address] PCP - General 08/22/25 documented as of this encounter
--- OUTSIDE RECORDS SUMMARY | 2025-09-30 11:47 | XMS_ITS ---
Author Organization Unknown ENCOUNTERS Encounter Performer Location Date Diagnosis Diagnosis Status Emergency [facility] [address] [place] [address] [phone] Pre Admit [facility] [address] [place] [address] [phone] Emergency [facility] [address] [place] [address] [id number] Pre Admit [facility] [address] [place] [address] [phone] *Note: Encounters from your own facility or health system may be excluded. Allergies, Adverse Reactions, Alerts Allergen Type Severity Identification Date ciprofloxacin drug allergy 20250822 cephalexin drug allergy 20250822 Medications Name Date Quantity Days Supplied GPI Number
--- NOTE | 2025-09-30 11:48 | XR_ITS ---
PROCEDURE INFORMATION: Exam: XR Chest Exam date and time: 09/30/2025 11:58 AM Age: 64 years old Clinical indication: Shortness of breath; Additional info: SOB, cough TECHNIQUE: Imaging protocol: Radiologic exam of the chest. Views: 1 view. COMPARISON: CR XR CHEST PORTABLE 08/22/2025 2:12 AM FINDINGS: Tubes, catheters and devices: Right internal jugular port catheter tip projects at the superior vena cava/right atrial junction. EKG leads. Lungs: Increased medial right lower lung field consolidation, approximately 3 x 5 cm. Pleural spaces: Unremarkable. No pleural effusion. No pneumothorax. Heart/Mediastinum: Unremarkable. No cardiomegaly. Vasculature: Partially imaged inferior vena cava filter at the L2 level. Bones/joints: Unremarkable. IMPRESSION: Increased medial right lower lung field consolidation, approximately 3 x 5 cm. Potential atelectasis or pneumonia, with a mass not excluded if there is clinical concern.
--- OUTSIDE RECORDS SUMMARY | 2025-09-30 11:49 | XMS_ITS | Encounter Summary ---
Author Organization [facility] nter Address [address] [place] [address] Care Team Providers Care Avionics Electrical Engineer Name Role Phone Rachel Pagan MD Unavailable [phone] Yesy Acuna RN Unavailable [phone] Pati Rucker OPERATIONS CHIEF Unavailable [phone] Sosa Gardner OPERATIONS CHIEF Unavailable [phone] Italo Camejo DAY SPA MANAGER Primary Care Provider [phone] Linda Elizabeth DO Unavailable Lizandro Khan DAY SPA MANAGER Primary Care Provider Elsa Vazquez Unavailable Unavailable Angie Murray RN Unavailable Unavailab Lizandro Islas DAY SPA MANAGER Primary Care Provider Encounter Details Date Type Department Care Team (Late st Contact Info) Description 02/14/[address] [facility] [address] [place] [address] Generic Social History Tobacco Use [...] In the past 12 months has e [employer], [employer], oil, or water [employer] threatened to shut off services in your [...] How often do you attend chur or sabianist services? More than 4 times [...] Description 10/04/2025 8:45 AM EST Office Visit [facility] [address] [place] [address] Rachel Pagan MD [address] [place] [address] 10/10/2025 10:30 AM EST Appointment [facility] [address] [place] [address] 11/02/2025 9:30 AM EST Office Visit [facility] [address], [address] [place] [phone] Ky Jewell MD [address] [place] [address] 11/05/2025 2:45 PM EST Office Visit [facility] [address] [place] [address] Ruddy Mayes MD [address] [place] [address] 12/31/2025 11:30 AM EST Office Visit [facility] [address] [place] [address] 01/22/2026 9:00 AM EDT Office Visit [facility] [address] [place] [phone] Allyn Toribio NP [address] [place] [address] documented as of this encounter Visit Diagnoses [...] documented as of this encounter Care Teams Avionics Electrical Engineer Relationship Specialty Start Date End Date Italo Camejo NP [address] [facility], [address] [place] [address] PCP - General Family Medicine 09/24/23 03/19/25 Lizandro Khan NP [address] [place] [address] PCP - General Family Medicine 03/20/25 07/22/25 Lizandro Khan NP [address] [facility] [place] [address] PCP - General Family Medicine 07/23/25 Rachel Pagan MD [address] [place], [place] [phone] Consulting Physician Oncology 11/11/22 Yesy Acuna, RN [address] [place], [place] [address] Nurse Navigator 11/12/22 03/05/25 Pati Rucker APRN [address] [place], [place] [address] Nurse Practitioner Oncology 12/21/22 Sosa Gardner APRN [address] [place] [address] Nurse Practitioner Oncology 06/24/23 Linda Elizabeth DO [address] [place] [address] Consulting Physician Oncology 03/01/25 08/28/25 Elsa Vazquez [address] [place] [address] Nurse Navigator Oncology 06/05/25 07/19/25 Angie Murray, ROLDAN [address] [place] [address] Nurse Navigator Oncology 06/26/25 documented as of this encounter
[2025-09-30 11:52] LABS: Coronavirus 19, PCR Not Detected (NotDetected); Influenza A, PCR Not Detected (NotDetected); Influenza B, PCR Not Detected (NotDetected)
--- OUTSIDE RECORDS SUMMARY | 2025-09-30 11:52 | XMS_ITS | Encounter Summary ---
Author Organization [facility] nter Address [address] [place] [address] Care Team Providers Care Drug Room Operator Name Role Phone Rachel Pagan MD Unavailable Pati Rucker REMOTE BROADCAST ENGINEER Unavailable Sosa Gardner REMOTE BROADCAST ENGINEER Unavailable [phone] Linda Elizabeth DO Unavailable Lizandro Khan CUSTOM FEED MILL OPERATOR Primary Care Provider [phone] Elsa Vazquez Unavailable Unavailable Angie Murray RN Unavailable Unavailab Lizandro Islas CUSTOM FEED MILL OPERATOR Primary Care Provider [phone] Encounter Details Date Type Department Care Team (Late st Contact Info) Description 03/26/2025 Orders Only [facility] [address] [place] [phone] Phyllis Delgadillo MD [address] [place] [address] Non-small cell lung cancer, unspecified laterality; Dyspnea, [...] drink = 0.6 oz pur e alcohol) [facility] Utilities Answer Date Recorded In the past [...] often do you attend chur ch or amish services? More than 4 times [...] ONCOLOGY PRACTICE [address] [place] [address] Rachel Pagan MD [address] [place] [address] 10/10/2025 10:30 AM EST Appointment [facility] [address] [place] [address] 11/02/2025 9:30 AM EST Office Visit [facility] [address] [place] [address] Ky Jewell MD [address] [place] [address] 11/05/2025 2:45 PM EST Office Visit [facility] [address] [place] [address] Ruddy Mayes MD [address] [place] [phone] 12/31/2025 11:30 AM EST Office Visit [facility] [address] [place] [address] 01/22/2026 9:00 AM EDT Office Visit [facility] [address] [place] [phone] Allyn Toribio NP [address] [place] [address] documented as of this encounter Visit Diagnoses [...] documented as of this encounter Care Teams Drug Room Operator Relationship Specialty Start Date End Date Lizandro Khan NP [address] [place] [address] PCP - General Family Medicine 03/20/25 07/22/25 Lizandro Khan NP [address] [place] [address] PCP - General Family Medicine 07/23/25 Rachel Pagan MD [address] [place], [place] [phone] Consulting Physician Oncology 11/11/22 Pati Rucker APRN [address] [place] [address] Nurse Practitioner Oncology 12/21/22 Sosa Gardner APRN [address] [place], [place] [address] Nurse Practitioner Oncology 06/24/23 Linda Elizabeth DO [address] [place] [address] Consulting Physician Oncology 03/01/25 08/28/25 Elsa Vazquez [address] [place] [address] Nurse Navigator Oncology 06/05/25 07/19/25 Angie Murray, ROLDAN [address] [place] [address] Nurse Navigator Oncology 06/26/25 documented as of this encounter
--- OUTSIDE RECORDS SUMMARY | 2025-09-30 11:52 | XMS_ITS | Encounter Summary ---
Author Organization [facility] nter Address [address] [place] [address] Care Team Providers Care Pipe Stress Engineer Name Role Phone Rachel Pagan MD Unavailable [phone] Yesy Acuna RN Unavailable [phone] J2EE ENGINEER Primary Care Provider [phone] Pati Rucker SLIVER HANDLER Unavailable [phone] Sosa Gardner SLIVER HANDLER Unavailable [phone] Italo Camejo J2EE ENGINEER Primary Care Provider [phone] Linda Elizabeth DO Unavailable Lizandro Khan J2EE ENGINEER Primary Care Provider [phone] Elsa Vazquez Unavailable Unavailable Angie Murray RN Unavailable Unavailab Lizandro Islas J2EE ENGINEER Primary Care Provider [phone] Encounter Details Date Type Department Care Team (Late st Contact Info) Description 05/19/2023 Orders Only [facility] [address], 10th [place] [address] Rachel Pagan MD [address] [place] [address] Non-small cell cancer of right [...] week 11/11/2022 How often do you attend [facility] or orthodox services? More than 4 [...] ONCOLOGY PRACTICE [address], 10th [place] [address] Rachel Pagan MD 1 [place] [address] 10/10/2025 10:30 AM EST Appointment [facility] [address], 11th [place] [address] 11/02/2025 9:30 AM EST Office Visit [facility] CARDIOLOGY PRACTICE [address], [address]st [place] [address] Ky Jewell MD [address] [place] [address] 11/05/2025 2:45 PM EST Office Visit [facility] NEUROLOGY PRACTICE [address], [address] [place] [facility] [address] Ruddy Mayes MD [address] [facility] [address] [facility] [place] [address] 12/31/2025 11:30 AM EST Office Visit [facility] NEPHROLOGY PRACTICE [address] [place] [address] 01/22/2026 9:00 AM EDT Office Visit [facility] CARDI[facility] PRACTICE [address], 1st [place] [address] Allyn Toribio NP [address] [place] [address] documented as of this encounter Results * Magnesium (05/20/2023 8:35 AM EDT) Magnesium 2.2 1.7 - 2.4 mg/dL 05/20/2023 9:40 AM EDT [facility] Blood Venous blood specimen / Unknown Existing Catheter / Unknown 05/20/2023 8:35 AM EDT 05/20/2023 9:09 AM EDT Rachel Soriano MD LAB BLOOD ORDERABLES Final Result [facility] [address] [place] [address], * (ABNORMAL) Comprehensive metabolic panel (05/20/2023 8:35 AM EDT) Sodium 143 133 - 144 mmol/L 05/20/2023 9:40 AM EDT [facility] Potassium 4.0 3.6 - 5.2 mmol/L 05/20/2023 9:40 AM EDT [facility] Chloride 113(H) 98 - 107 mmol/L 05/20/2023 9:40 AM EDT [facility] CO2 28 21 - 32 mmol/L 05/20/2023 9:40 [facility] Anion Gap 2(L) 5 - 15 mmol/L 05/20/2023 9:40 AM [facility] BUN 22(H) 7 - 18 mg/dL 05/20/2023 9:40 AM [facility] Creatinine 1.20(H) 0.55 - 1.02 mg/dL 05/20/2023 9:40 AM [facility] BUN/Creatinine Ratio 18.33 10.00 - 20.00 ratio 05/20/2023 9:40 AM [facility] Glucose 121(H) 70 - 110 mg/dL 05/20/2023 9:40 AM [facility] Calcium 8.3(L) 8.5 - 10.1 mg/dL 05/20/2023 9:40 AM [facility] AST 12(L) 15 - 37 U/L 05/20/2023 9:40 AM [facility] ALT (SGPT) 22 13 - 56 U/L 05/20/2023 9:40 AM [facility] Alkaline Phosphatase 130(H) 45 - 117 U/L 05/20/2023 9:40 AM [facility] Total Protein 6.4 6.4 - 8.4 g/dL 05/20/2023 9:40 AM [facility] Albumin 2.7(L) 3.4 - 5.0 g/dL 05/20/2023 9:40 AM [facility] Globulin, Total 3.7 2.4 - 4.8 g/dL 05/20/2023 9:40 AM [facility] A/G Ratio 0.7 0.6 - 1.6 05/20/2023 9:40 AM [facility] Total Bilirubin 0.3 0.0 - 1.0 mg/dL 05/20/2023 9:40 AM [facility] eGFR (CKD-EPI) 47.9(L) >60.0 - 200.0 mL/min/1.7 3m*2 05/20/2023 9:40 AM [facility] Blood Venous blood specimen / Unknown Existing Catheter / Unknown 05/20/2023 8:35 AM EDT 05/20/2023 9:09 AM EDT Rachel Soriano MD LAB BLOOD ORDERABLES Final Result [facility] [address] [place] [address], * CBC auto differential (05/20/2023 8:35 AM EDT) Auto WBC 6.1 3.0 - 11.3 10*3/uL LAB HEMATOLOGY METHOD 05/20/2023 9:15 [facility] RBC 4.23 3.45 - 5.40 10*6/uL LAB HEMATOLOGY METHOD 05/20/2023 9:15 AM [facility] Hemoglobin 13.4 10.0 - 16.0 g/dL LAB HEMATOLOGY METHOD 05/20/2023 9:15 AM [facility] Hematocrit 39.1 29.9 - 45.5 % LAB HEMATOLOGY METHOD 05/20/2023 9:15 AM [facility] MCV 92.4 78.2 - 101.8 fL LAB HEMATOLOGY METHOD 05/20/2023 9:15 AM [facility] MCH 31.6 26.4 - 33.3 pg LAB HEMATOLOGY METHOD 05/20/2023 9:15 AM [facility] MCHC 34.3 32.5 - 35.3 g/dL LAB HEMATOLOGY METHOD 05/20/2023 9:15 AM [facility] RDW 14.1 10.1 - 16.2 % LAB HEMATOLOGY METHOD 05/20/2023 9:15 AM [facility] MPV 8.5 6.4 - 10.4 fL LAB HEMATOLOGY METHOD 05/20/2023 9:15 AM [facility] Neutrophils % 62 43 - 83 % LAB HEMATOLOGY METHOD 05/20/2023 9:15 AM [facility] Lymphocytes % 25 10 - 42 % LAB HEMATOLOGY METHOD 05/20/2023 9:15 AM [facility] Monocytes % 7 1 - 14 % LAB HEMATOLOGY METHOD 05/20/2023 9:15 AM [facility] Eosinophils % 6 0 - 11 % LAB HEMATOLOGY METHOD 05/20/2023 9:15 AM [facility] Basophils % 1 0 - 2 % LAB HEMATOLOGY METHOD 05/20/2023 9:15 AM [facility] Neutrophils Absolute 3.80 3.40 - 7.00 10*3/uL LAB HEMATOLOGY METHOD 05/20/2023 9:15 AM [facility] Lymphocytes Absolute 1.60 0.40 - 3.90 10*3/uL LAB HEMATOLOGY METHOD 05/20/2023 9:15 AM [facility] Monocytes Absolute 0.40 0.20 - 0.60 10*3/uL LAB HEMATOLOGY METHOD 05/20/2023 9:15 AM [facility] Eosinophils Absolute 0.30 0.00 - 0.90 10*3/uL LAB HEMATOLOGY METHOD 05/20/2023 9:15 AM [facility] Basophils Absolute 0.00 0.00 - 0.20 10*3/uL LAB HEMATOLOGY METHOD 05/20/2023 9:15 AM [facility] Platelets 178 122 - 454 10*3/uL LAB HEMATOLOGY METHOD 05/20/2023 9:15 AM [facility] Blood Venous blood specimen / Unknown Existing Catheter / Unknown 05/20/2023 8:35 AM EDT 05/20/2023 9:08 AM EDT Rachel Soriano MD LAB BLOOD ORDERABLES Final Result [facility] [address] [place] [address], documented in this encounter Visit Diagnoses Diagnosis [...] documented as of this encounter Care Teams Pipe Stress Engineer Relationship Specialty Start Date End Date Viridiana Plaza NP [address] [place] [phone] PCP - General Family Medicine 12/10/22 09/23/23 Italo Camejo NP [address] [facility], [address] [place] [address] PCP - General Family Medicine 09/24/23 03/19/25 Lizandro Khan NP [address] [place] [address] PCP - General Family Medicine 03/20/25 07/22/25 Lizandro Khan NP [address] [place] [address] PCP - General Family Medicine 07/23/25 Rachel Pagan MD [address] [place] [phone] Consulting Physician Oncology 11/11/22 Yesy Acuna RN [address] [place] [address] Nurse Navigator 11/12/22 03/05/25 Pati Rucker APRN [address] [place], [place] [address] Nurse Practitioner Oncology 12/21/22 Sosa Gardner APRN [address] [place], [place] [address] Nurse Practitioner Oncology 06/24/23 Linda Elizabeth DO [address] [place], [place] [address] Consulting Physician Oncology 03/01/25 08/28/25 Elsa Vazquez [address] [place] [address] Nurse Navigator Oncology 06/05/25 07/19/25 Angie Murray, ROLDAN [address] [place], [place] [address] Nurse Navigator Oncology 06/26/25 documented as of this encounter
--- OUTSIDE RECORDS SUMMARY | 2025-09-30 11:52 | XMS_ITS | Encounter Summary ---
Author Organization [facility] nter Address [address] [place] [address] Care Team Providers Care Tattoo Technician Name Role Phone Rachel Pagan MD Unavailable [phone] Yesy Acuna RN Unavailable [phone] DEVELOPMENT TECHNICAL LEAD Primary Care Provider [phone] Pati Rucker PROJECT DEVELOPMENT DIRECTOR Unavailable [phone] Sosa Gardner PROJECT DEVELOPMENT DIRECTOR Unavailable [phone] Italo Camejo DEVELOPMENT TECHNICAL LEAD Primary Care Provider [phone] iLnda Elizabeth DO Unavailable Lizandro Khan DEVELOPMENT TECHNICAL LEAD Primary Care Provider [phone] Elsa Vazquez Unavailable Unavailable Angie Murray RN Unavailable Unavailab Lizandro Islas DEVELOPMENT TECHNICAL LEAD Primary Care Provider [phone] Encounter Details Date Type Department Care Team (Late st Contact Info) Description 05/20/2023 Orders Only [facility] [address], 10th [place] [address] Rachel Pagan MD [address] [place] [address] Non-small cell cancer of right [...] attend [facility] or mandaeism services? More than 4 times [...] ONCOLOGY PRACTICE [address], 10th [place] [address] Rachel Pagan MD 1 [place] [address] 10/10/2025 10:30 AM EST Appointment [facility] [address], 11th [place] [address] 11/02/2025 9:30 AM EST Office Visit [facility] CARDIOLOGY PRACTICE [address], 1st [place] [address] Ky Jewell MD [address] [place] [address] 11/05/2025 2:45 PM EST Office Visit [facility] NEUROLOGY PRACTICE [address], 8th Floor [facility] [place] [address] Ruddy Mayes MD [address] [facility] [place] [address] 12/31/2025 11:30 AM EST Office Visit [facility] NEPHROLOGY PRACTICE [address] [place] [phone] 01/22/2026 9:00 AM EDT Office Visit [facility] CARDIOLOG[facility] PRACTICE [address], 1st [place] [address] Allyn Toribio NP [address] [place] [address] documented as of this encounter Results * (ABNORMAL) Basic metabolic panel (05/25/2023 8:43 AM EDT) Glucose 126(H) 70 - 110 mg/dL 05/25/2023 9:30 AM [facility] Sodium 141 133 - 144 mmol/L 05/25/2023 9:30 AM [facility] Potassium 4.2 3.6 - 5.2 mmol/L 05/25/2023 9:30 AM [facility] Chloride 113(H) 98 - 107 mmol/L 05/25/2023 9:30 AM [facility] CO2 26 21 - 32 mmol/L 05/25/2023 9:30 AM [facility] Anion Gap 2(L) 5 - 15 mmol/L 05/25/2023 9:30 AM [facility] BUN 17 7 - 18 mg/dL 05/25/2023 9:30 AM [facility] Creatinine 1.20(H) 0.55 - 1.02 mg/dL 05/25/2023 9:30 AM [facility] BUN/Creatinine Ratio 14.17 10.00 - 20.00 ratio 05/25/2023 9:30 AM [facility] Calcium 8.8 8.5 - 10.1 mg/dL 05/25/2023 9:30 AM EDT [facility] eGFR (CKD-EPI) 47.9(L) >60.0 - 200.0 mL/min/1.7 3m*2 05/25/2023 9:30 AM EDT [facility] Blood Venous blood specimen / Unknown Existing Catheter / Unknown 05/25/2023 8:43 AM EDT 05/25/2023 9:06 AM EDT us Rachel Soriano MD LAB BLOOD ORDERABLES Final Result [facility] [address] [facility] [place] [address], documented in this encounter Visit Diagnoses Diagnosis [...] documented as of this encounter Care Teams Tattoo Technician Relationship Specialty Start Date End Date Viridiana Plaza NP [address] [place] [phone] PCP - General Family Medicine 12/10/22 09/23/23 Italo Camejo NP [address] [facility], [address] [place] [address] PCP - General Family Medicine 09/24/23 03/19/25 Lizandro Khan NP [address] [place] [address] PCP - General Family Medicine 03/20/25 07/22/25 Lizandro Khan NP [address] [place] [address] PCP - General Family Medicine 07/23/25 Rachel Pagan MD [facility] [address] [facility] [place] [address] Consulting Physician Oncology 11/11/22 Yesy Acuna RN [address] [place] [phone] Nurse Navigator 11/12/22 03/05/25 Pati Rucker APRN [address] [place] [address] Nurse Practitioner Oncology 12/21/22 Sosa Gardner APRN [address] [place] [address] Nurse Practitioner Oncology 06/24/23 Linda Elizabeth DO [address] [place] [address] Consulting Physician Oncology 03/01/25 08/28/25 Elsa Vazquez [address] [place] [address] Nurse Navigator Oncology 06/05/25 07/19/25 Angie Murray, ROLDAN [address] [place] [address] Nurse Navigator Oncology 06/26/25 documented as of this encounter
--- OUTSIDE RECORDS SUMMARY | 2025-09-30 11:52 | XMS_ITS | Encounter Summary ---
Author Organization [facility] nter Address [address] [place] [address] Care Team Providers Care Barrel Lathe Operator Inside Name Role Phone Rachel Pagan MD Unavailable [phone] Yesy Acuna RN Unavailable [phone] [address] DRYWALL HANGER HELPER Primary Care Provider [phone] Pati Rucker CODING FILE CLERK Unavailable [phone] Sosa Gardner CODING FILE CLERK Unavailable [phone] Italo Camejo DRYWALL HANGER HELPER Primary Care Provider [phone] Linda Elizabeth DO Unavailable Lizandro Khan DRYWALL HANGER HELPER Primary Care Provider [phone] Elsa Vazquez Unavailable Unavailable Angie Murray RN Unavailable Unavailab Lizandro Islas DRYWALL HANGER HELPER Primary Care Provider [phone] Encounter Details Date Type Department Care Team (Late st Contact Info) Description 05/25/2023 Orders Only [facility] [address], 10th [place] [address] Rachel Pagan MD [address] [place] [address] Social History Tobacco Use Types [...] How often do you attend chur or synagogue services? More than 4 times [...] ONCOLOGY PRACTICE [address], 10th [place] [address] Rachel Pagan MD 1 [place] [address] 10/10/2025 10:30 AM EST Appointment [facility] MEDICAL ONCOLOGY [address], 11th [place] [address] 11/02/2025 9:30 AM EST Office Visit [facility] CARDIOLOGY PRACTICE [address], 1st [place] [address] Ky Jewell MD [address] [place] [address] 11/05/2025 2:45 PM EST Office Visit [facility] NEUROLOGY PRACTICE [address], 8th [place] [address] Ruddy Mayes MD [address] [facility] [place] [address] 12/31/2025 11:30 AM EST Office Visit [facility] NEPHROLOGY PRACTICE [address] [facility] [place] [address] 01/22/2026 9:00 AM EDT Office Visit [facility] CARDI[facility] PRACTICE [address], 1st Floor [facility] [place] [address] Allyn Toribio NP [address] [place] [address] documented as of this encounter Visit Diagnoses [...] documented as of this encounter Care Teams Barrel Lathe Operator Inside Relationship Specialty Start Date End Date Viridiana Plaza NP [address] [place] [phone] PCP - General Family Medicine 12/10/22 09/23/23 Italo Camejo NP [address] [facility], [address] [place] [address] PCP - General Family Medicine 09/24/23 03/19/25 Lizandro Khan NP [address] [place] [address] PCP - General Family Medicine 03/20/25 07/22/25 Lizandro Khan NP [address] [place] [address] PCP - General Family Medicine 07/23/25 Rachel Pagan MD [facility] [address] [facility] [address] Consulting Physician Oncology 11/11/22 Yesy Acuna, RN [address] [place] [phone] Nurse Navigator 11/12/22 03/05/25 Pati Rucker APRN [address] [place] [address] Nurse Practitioner Oncology 12/21/22 Sosa Gardner APRN [address] [facility] [place] [address] Nurse Practitioner Oncology 06/24/23 Linda Elizabeth DO [address] [place] [address] Consulting Physician Oncology 03/01/25 08/28/25 Elsa Vazquez [address] [place] [address] Nurse Navigator Oncology 06/05/25 07/19/25 Angie Murray RN [address] [place] [address] Nurse Navigator Oncology 06/26/25 documented as of this encounter
--- OUTSIDE RECORDS SUMMARY | 2025-09-30 11:53 | XMS_ITS | Patient Health Record ---
Author Organization [facility] Address [address] [place] [address] Care Team Providers Care Studio Technician Video Operator Name Role Phone MolineViridiana Primary Care Provider [phone] Allergies Allergen (clinical drug ingredient) Drug/Non Drug [...] W/U Status Risk Notes Problem Pernicious anemia (50503613) Vitamin B12 deficiency anemia due to intrinsic factor deficiency (D51.0) Active confirmed Problem Vitamin D deficiency (71256275) Vitamin D deficiency, unspecified (E55.9) Active confirmed Problem Hyperlipidemia (00827240) Hyperlipidemia, unspecified (E78.5) Active confirmed Problem Tobacco user (472728710) Nicotine dependence, unspecified, uncomplicated (F17.200) Active confirmed Problem Restless legs syndrome (47324507) Restless legs syndrome (G25.81) Active confirmed Problem Polyneuropathy (83153141) Polyneuropathy, unspecified (G62.9) Active confirmed Problem Essential hypertension (54991523) Essential (primary) hypertension (I10) Active confirmed Problem Chronic atrial fibrillation (544130081) Chronic atrial fibrillation (I48.2) Active confirmed Problem Allergic rhinitis (21177846) Allergic rhinitis, unspecified (J30.9) Active confirmed Problem Chronic atrial fibrillation (disorder) (909410809) Chronic atrial fibrillation, unspecified (I48.20) Active confirmed Problem Vitamin D deficiency (63760675) Vitamin D deficiency (E55.9) Active confirmed Problem Anxiety (94813774) Anxiety (F41.9) Active confi rmed Problem Restless legs (18321253) RLS (restless legs syndrome) (G25.81) Active confirmed [...] Coverage End Date [employer] [address] [address] [place] [address] [id number] Jose Sims Self - patient is the insured [place] Medicaid [address] [place] [address] [id number] Jose Sims Self - patient is the insured Medical (General) History Medical History History ICD Code back problems htn Surgical History Surgery Date(Month/Year) angiogam
--- OUTSIDE RECORDS SUMMARY | 2025-09-30 11:53 | XMS_ITS | Encounter Summary ---
Author Organization [facility] nter Address [address] [place] [address] Care Team Providers Care Management Information Systems Director Name Role Phone Rachel Pagan MD Unavailable [phone] Pati Rucker MACHINE BUILDER Unavailable [phone] Sosa Gardner MACHINE BUILDER Unavailable [phone] Italo Camejo SOFT WORK WRAPPER LAYER AND EXAMINER Primary Care Provider [phone] Linda Elizabeth DO Unavailable Lizandro Khan SOFT WORK WRAPPER LAYER AND EXAMINER Primary Care Provider [phone] Elsa Vazquez Unavailable Unavailable Angie Murray RN Unavailable Unavailab Lizandro Islas SOFT WORK WRAPPER LAYER AND EXAMINER Primary Care Provider Encounter Details Date Type Department Care Team (Late st Contact Info) Description 03/13/2025 Orders Only [facility] [address] 1st [place] [address] [address] [place] [address] Social History Tobacco Use Types Packs/Day Years Used Date Smoking Tobacco: Every Day Cigarettes 0.5 30.9 Started: 2024 Passive Smoke Exposure: Current Smokeless Tobacco: Never Comments:Offered patient an appointment at the health department for smoking cessation classes. Patient declined. Alcohol Use Standard Drinks/Week Comments Never 0 (1 standard drink = 0.6 oz pur e alcohol) [facility] Utilities Answer Date Recorded In the past 12 months has e [employer], [employer], or water [employer] [place] threatened to shut off services in your [...] How often do you attend chur or moravian services? More than 4 times [...] Description 10/04/2025 8:45 AM EST Office Visit [facility] ONCOLOGY PRACTICE [address], 10th Floor [place] [phone] Rachel Pagan MD [address] [place] [phone] 10/10/2025 10:30 AM EST Appointment [facility] MEDICAL ONCOLOGY [address], 11th Floor [place] [phone] 11/02/2025 9:30 AM EST Office Visit [facility] CARDIOLOGY PRACTICE [address], [address] [place] [phone] Ky Jewell MD [address] [place] [address] 11/05/2025 2:45 PM EST Office Visit [facility] NEUROLOGY PRACTICE [address], 8th [place] [address] Ruddy Mayes MD 911 [place] [address] 12/31/2025 11:30 AM EST Office Visit [facility] NEPHROLOGY PRACTICE [address] [place] [address] 01/22/2026 9:00 AM EDT Office Visit [facility] CARDIOLOG[facility] PRACTICE [address], 1st [place] [address] Allyn Toribio NP [address] [place] [address] documented as of this encounter Visit Diagnoses [...] documented as of this encounter Care Teams Management Information Systems Director Relationship Specialty Start Date End Date Italo Camejo NP [address] [facility], [address] [place] [address] PCP - General Family Medicine 09/24/23 03/19/25 Lizandro Khan NP [address] [place] [address] PCP - General Family Medicine 03/20/25 07/22/25 Lizandro Khan NP [address] [facility] [place] [address] PCP - General Family Medicine 07/23/25 Rachel Pagan MD [address] [place], [place] [phone] Consulting Physician Oncology 11/11/22 Pati Rucker APRN [address] [place] [address] Nurse Practitioner Oncology 12/21/22 Sosa Gardner APRN [address] [place], [place] [phone] Nurse Practitioner Oncology 06/24/23 Linda Elizabeth DO [address] [place], [place] [address] Consulting Physician Oncology 03/01/25 08/28/25 Elsa Vazquez [address] [place] [address] Nurse Navigator Oncology 06/05/25 07/19/25 Angie Murray, ROLDAN [address] [place] [address] Nurse Navigator Oncology 06/26/25 documented as of this encounter
--- OUTSIDE RECORDS SUMMARY | 2025-09-30 11:53 | XMS_ITS | Encounter Summary ---
Author Organization [facility] nter Address [address] [place] [address] Care Team Providers Care Hangar Attendant Name Role Phone Rachel Pagan MD Unavailable [phone] Pati Rucker MANAGER CLIENT SUPPORT Unavailable [phone] Sosa Gardner MANAGER CLIENT SUPPORT Unavailable [phone] Italo Camejo PLANT MECHANIC Primary Care Provider [phone] Linda Elizabeth DO Unavailable Lizandro Khan PLANT MECHANIC Primary Care Provider [phone] Elsa Vazquez Unavailable Unavailable Angie Murray RN Unavailable Unavailab Lizandro Islas PLANT MECHANIC Primary Care Provider Encounter Details Date Type Department Care Team (Late st Contact Info) Description 03/13/2025 Orders Only [facility] ONCOLOGY PRACTICE [address], 10th [place] [address] Linda Elizabeth DO [address] [place] [phone] Non-small cell lung cancer, unspecified laterality (Primary Dx) Social History Tobacco Use Types Packs/Day Years Used Date Smoking Tobacco: Every Day Cigarettes 0.5 30.9 Started: 2024 Passive Smoke Exposure: Current Smokeless Tobacco: Never Comments:Offered patient an appointment at the health department for smoking cessation classes. Patient declined. Alcohol Use Standard Drinks/Week Comments Never 0 (1 standard drink = 0.6 oz pur e alcohol) [facility] Utilities Answer Date Recorded In [...] often do you attend chur ch or christian services? More than 4 times per year [...] in a penitentiary (including now)? No 11/11/2022 Comments No Sex [...] ONCOLOGY PRACTICE [address], 10th [place] [address] Rachel Pagan MD [address] [place] [address] 10/10/2025 10:30 AM EST Appointment [facility] MEDICAL ONCOLOGY [address], 11th [place] [address] 11/02/2025 9:30 AM EST Office Visit [facility] CARDIOLOGY PRACTICE [address], [address]st [place] [address] Ky Jewell MD [address] [place] [address] 11/05/2025 2:45 PM EST Office Visit [facility] NEUROLOGY PRACTICE [address], 8th [place] [address] Ruddy Mayes MD [address] [place] [address] 12/31/2025 11:30 AM EST Office Visit [facility] NEPHROLOGY PRACTICE [address] [place], [place] [id number] 01/22/2026 9:00 AM EDT Office Visit [facility] CARDIOLOGY PRACTICE [address] 1st [place] [address] Allyn Toribio NP [address] [place], [place] [id number] documented as of this encounter Visit Diagnoses [...] documented as of this encounter Care Teams Hangar Attendant Relationship Specialty Start Date End Date Italo Camejo NP [address] [facility], [address] [place], [place] [id number] PCP - General Family Medicine 09/24/23 03/19/25 Lizandro Khan NP [address] [place] [address] PCP - General Family Medicine 03/20/25 07/22/25 Lizandro Khan NP [address] [place] [address] PCP - General Family Medicine 07/23/25 Rachel Pagan MD [address] [place], [place] [address] Consulting Physician Oncology 11/11/22 Pati Rucker APRN [address] [place], [place] [address] Nurse Practitioner Oncology 12/21/22 Sosa Gardner APRN [address] [place], [place] [address] Nurse Practitioner Oncology 06/24/23 Linda Elizabeth DO [address] [place] [address] Consulting Physician Oncology 03/01/25 08/28/25 Elsa Vazquez [address] [place], [place] [address] Nurse Navigator Oncology 06/05/25 07/19/25 Angie Murray, ROLDAN [address] [place], [place] [address] Nurse Navigator Oncology 06/26/25 documented as of this encounter
--- OUTSIDE RECORDS SUMMARY | 2025-09-30 11:53 | XMS_ITS | Encounter Summary ---
Author Organization [facility] nter Address [address] [place] [address] Care Team Providers Care Clinical Lab Technologist Name Role Phone Rachel Pagan MD Unavailable [phone] Pati Rucker SALON COORDINATOR Unavailable [phone] Sosa Gardner SALON COORDINATOR Unavailable Italo Camejo CHIEF SUPPLY CHAIN OFFICER Primary Care Provider [phone] Linda Elizabeth DO Unavailable Lizandro Khan CHIEF SUPPLY CHAIN OFFICER Primary Care Provider Elsa Vazquez Unavailable Unavailable Angie Murray RN Unavailable Unavailab Lizandro Islas CHIEF SUPPLY CHAIN OFFICER Primary Care Provider Encounter Details Date Type Department Care Team (Late st Contact Info) Description 03/08/2025 Orders Only [facility] MEDICAL ONCOLOGY [address], 11th [place] [id number] Generic Social History Tobacco Use Types Packs/Day Years Used Date Smoking Tobacco: Every Day Cigarettes 0.5 30.9 Started: 2024 Passive Smoke Exposure: Current Smokeless Tobacco: Never Comments:Offered patient an appointment at the health department for smoking cessation classes. Patient declined. Alcohol Use Standard Drinks/Week Comments Never 0 (1 standard drink = 0.6 oz pur e alcohol) [facility] Utilities Answer Date Recorded In the past 12 months has [employer], gas, oil, or water company threatened to [...] attend [facility] or religion services? More than 4 times per year 11/11/2022 Do you belong to any clubs o r organizations such as restoration groups, unions, fraternal or athletic groups, or [...] of Assessment Author No 10/27/2022 3:29 PM Demetir Moser RN * Do you have serious [...] ONCOLOGY PRACTICE [address], 10th [place] [address] Rachel Pagan MD [address] [place] [address] 10/10/2025 10:30 AM EST Appointment [facility] [address] 11[address] Floor [place] [phone] 11/02/2025 9:30 AM EST Office Visit [facility]IOLOG[facility] [address], [address]st [place] [phone] Ky Jewell MD [address] [place] [address] 11/05/2025 2:45 PM EST Office Visit [facility] NEUR[facility] [address], 8th [place] [address] Ruddy Mayes MD 1 [place] [address] 12/31/2025 11:30 AM EST Office Visit [facility] NEPHROLOGY PRACTICE [address] [place] [address] 01/22/2026 9:00 AM EDT Office Visit [facility] CARDIOLOGY PRACTICE [address], 1st [place] [address] Allyn Toribio NP [address] [place] [address] documented as of this encounter Visit Diagnoses [...] as of this encounter Care Teams Clinical Lab Technologist Relationship Specialty Start Date End Date Italo Camejo NP [address] [facility], [address] [place] [address] PCP - General Family Medicine 09/24/23 03/19/25 Lizandro Khan NP [address] [place] [address] PCP - General Family Medicine 03/20/25 07/22/25 Lizandro Khan NP [address] [place] [address] PCP - General Family Medicine 07/23/25 Rachel Pagan MD [address] [place] [address] Consulting Physician Oncology 11/11/22 Pati Rucker APRN [address] [place] [address] Nurse Practitioner Oncology 12/21/22 Sosa Gardner APRN [address] [place] [address] Nurse Practitioner Oncology 06/24/23 Linda Elizabeth DO [address] [place] [address] Consulting Physician Oncology 03/01/25 08/28/25 Elsa Vazquez [address] [place], [place] [address] Nurse Navigator Oncology 06/05/25 07/19/25 Angie Murray, ROLDAN [address] [place], [place] [address] Nurse Navigator Oncology 06/26/25 documented as of this encounter
--- OUTSIDE RECORDS SUMMARY | 2025-09-30 11:53 | XMS_ITS | Encounter Summary ---
Author Organization [facility] nter Address [address] [place] [address] Care Team Providers Care Talent Associate Name Role Phone Rachel Pagan MD Unavailable [phone] Yesy Acuna RN Unavailable [phone] TALENT MANAGEMENT SPECIALIST Primary Care Provider [phone] Pati Rucker NAIL MAKER Unavailable [phone] Sosa Gardner NAIL MAKER Unavailable [phone] Italo Camejo TALENT MANAGEMENT SPECIALIST Primary Care Provider [phone] Linda Elizabeth DO Unavailable Lizandro Khan TALENT MANAGEMENT SPECIALIST Primary Care Provider [phone] Elsa Vazquez Unavailable Unavailable Angie Murray RN Unavailable Unavailab Lizandro Islas TALENT MANAGEMENT SPECIALIST Primary Care Provider [phone] Encounter Details Date Type Department Care Team (Late st Contact Info) Description 04/29/2023 Orders Only [facility] [address], 10th [place] [address] Rachel Pagan MD [address] [place] [address] Non-small cell cancer of right [...] 11/11/2022 How often do you attend [facility] or jew services? More than 4 times [...] 8:45 AM EST Office Visit [facility] ONCOLOGY PRACTICE [address], 10th [place] [address] Rachel Pagan MD 1 [place] [address] 10/10/2025 10:30 AM EST Appointment [facility] [address], 11th [place] [address] 11/02/2025 9:30 AM EST Office Visit [facility] CARDIOLOGY PRACTICE [address], [address] [place] [address] Ky Jewell MD [address] [place] [address] 11/05/2025 2:45 PM EST Office Visit [facility] NEUROLOGY PRACTICE [address], 8th [place] [address] Ruddy Mayes MD [address] [place] [address] 12/31/2025 11:30 AM EST Office Visit [facility] NEPHROLOGY PRACTICE [address] [place] [phone] 01/22/2026 9:00 AM EDT Office Visit [facility] CARDIOLOGY PRACTICE [address], 1st [place] [address] Allyn Toribio NP [address] [place] [phone] documented as of this encounter Visit Diagnoses [...] as of this encounter Care Teams Talent Associate Relationship Specialty Start Date End Date Viridiana Plaza NP [address] [place] [address] PCP - General Family Medicine 12/10/22 09/23/23 Italo Camejo NP [address] [place] [address], [address] [place] [address] PCP - General Family Medicine 09/24/23 03/19/25 Lizandro Khan NP [address] [place] [address] PCP - General Family Medicine 03/20/25 07/22/25 Lizandro Khan NP [address] [place] [address] PCP - General Family Medicine 07/23/25 Rachel Pagan MD [facility] [address] [facility] [place] [address] Consulting Physician Oncology 11/11/22 Yesy Acuna RN [address] [place] [phone] Nurse Navigator 11/12/22 03/05/25 Pati Rucker APRN [address] [facility] [place] [address] Nurse Practitioner Oncology 12/21/22 Sosa Gardner APRN [address] [facility] [place] [address] Nurse Practitioner Oncology 06/24/23 Linda Elizabeth DO [address] [place] [address] Consulting Physician Oncology 03/01/25 08/28/25 Elsa Vazquez [address] [place] [address] Nurse Navigator Oncology 06/05/25 07/19/25 Angie Murray, ROLDAN [address] [place] [address] Nurse Navigator Oncology 06/26/25 documented as of this encounter
--- OUTSIDE RECORDS SUMMARY | 2025-09-30 11:53 | XMS_ITS | Encounter Summary ---
Author Organization [facility] nter Address [address] [place] [address] Care Team Providers Care Perinatal Technician Name Role Phone Rachel Pagan MD Unavailable [phone] Pati Rucker BAIL BONDSMAN Unavailable [phone] Sosa Gardner BAIL BONDSMAN Unavailable [phone] Linda Elizabeth DO Unavailable Lizandro Khan SBA UNDERWRITER Primary Care Provider [phone] Elsa Vazquez Unavailable Unavailable Angie Murray RN Unavailable Unavailab Lizandro Islas SBA UNDERWRITER Primary Care Provider [phone] Encounter Details Date Type Department Care Team (Late st Contact Info) Description 04/06/2025 Orders Only [facility] ONCOLOGY PRACTICE [address], 10th [place] [address] Sosa Gardner, BAIL BONDSMAN [address] [place] [address] Stage IV squamous cell carcinoma [...] drink = 0.6 oz pur e alcohol) [facility] Utilities Answer Date Recorded In the [...] How often do you attend chur or muslim services? More than 4 times [...] ONCOLOGY PRACTICE [address], 10th [place] [address] Rachel Pagan MD [address] [place] [address] 10/10/2025 10:30 AM EST Appointment [facility] MEDICAL ONCOLOGY [address], 11th [place] [address] 11/02/2025 9:30 AM EST Office Visit [facility] CARDIOLOGY PRACTICE [address] [place] [address] Ky Jewell MD [address] [place] [address] 11/05/2025 2:45 PM EST Office Visit [facility] NEUROLOGY PRACTICE [address], 8th [place] [address] Ruddy Mayes MD [address] [place] [address] 12/31/2025 11:30 AM EST Office Visit [facility] [address] [place], [place] [phone] 01/22/2026 9:00 AM EDT Office Visit [facility] [address], 1st [place] [address] Allyn Toribio, GRAHAM [address] [place] [phone] documented as of this encounter Procedures Procedure [...] 134 - 143 mmol/L 04/06/2025 11:23 AM [facility] Potassium 4.5 3.2 - 4.6 mmol/L 04/06/2025 11:23 AM [facility] Chloride 101 99 - 108 mmol/L 04/06/2025 11:23 AM [facility] CO2 25 19 - 29 mmol/L 04/06/2025 11:23 AM [facility] Anion Gap 9 5 - 15 mmol/L 04/06/2025 11:23 AM [facility] BUN 18 7 - 20 mg/dL 04/06/2025 11:23 AM [facility] Creatinine 0.84 <=1.20 mg/dL 04/06/2025 11:23 AM [facility] BUN/Creatinine Ratio 21.43(H) 10.00 - 20.00 ratio 04/06/2025 11:23 AM [facility] Glucose 165(H) 58 - 104 mg/dL 04/06/2025 11:23 AM [facility] Calcium 8.6 7.9 - 11.1 mg/dL 04/06/2025 11:23 AM [facility] AST 15 10 - 28 U/L 04/06/2025 11:23 AM [facility] ALT (SGPT) 35 <=40 U/L 04/06/2025 11:23 AM [facility] Alkaline Phosphatase 84 29 - 108 U/L 04/06/2025 11:23 AM [facility] Total Protein 6.0 5.9 - 7.9 g/dL 04/06/2025 11:23 AM [facility] Albumin 3.2(L) 3.5 - 5.1 g/dL 04/06/2025 11:23 AM [facility] Globulin, Total 2.8 2.4 - 4.8 g/dL 04/06/2025 11:23 AM [facility] A/G Ratio 1.1 0.6 - 1.6 04/06/2025 11:23 AM [facility] Total Bilirubin 0.8 0.3 - 1.0 mg/dL 04/06/2025 11:23 AM [facility] eGFR (CKD-EPI) 72.7 >60.0 - 200.0 mL/min/1. 73m*2 04/06/2025 11:23 AM [facility] Blood Venous blood specimen / Unknown Venipuncture / Unknown 04/06/2025 10:50 AM EDT 04/06/2025 10:58 AM [facility] Narrative [facility] - 04/06/2025 11:23 AM EDT Please note possible changes in reference range and units reported due to change in methodology. us Sosa Gardner APRN LAB BLOOD ORDERABLES Final Res ult [facility] [address] [place] [address], * (ABNORMAL) CBC auto differential (04/06/2025 10:50 AM EDT) Auto WBC 2.8(L) 3.8 - 11.0 10*3/uL 04/06/2025 11:07 AM [facility] RBC 2.54(L) 3.73 - 5.13 10*6/uL 04/06/2025 11:07 AM [facility] Hemoglobin 8.3(L) 11.2 - 15.3 g/dL 04/06/2025 11:07 AM [facility] Hematocrit 23.5(L) 32.6 - 44.6 % 04/06/2025 11:07 AM [facility] MCV 92.5 78.8 - 96.0 fL 04/06/2025 11:07 AM [facility] MCH 32.7 26.2 - 33.0 pg 04/06/2025 11:07 AM [facility] MCHC 35.4(H) 32.7 - 35.1 g/dL 04/06/2025 11:07 AM [facility] RDW 15.1 12.1 - 16.1 % 04/06/2025 11:07 AM [facility] MPV 8.7 7.0 - 10.6 fL 04/06/2025 11:07 AM [facility] Neutrophils % 58 47 - 79 % 04/06/2025 11:07 AM [facility] Lymphocytes % 33 13 - 41 % 04/06/2025 11:07 AM [facility] Monocytes % 7 3 - 11 % 04/06/2025 11:07 AM [facility] Eosinophils % 1 0 - 6 % 04/06/2025 11:07 AM [facility] Basophils % 1 0 - 2 % 04/06/2025 11:07 AM [facility] Neutrophils Absolute 1.60(L) 1.90 - 7.50 10*3/uL 04/06/2025 11:07 AM [facility] Lymphocytes Absolute 0.90 0.80 - 3.20 10*3/uL 04/06/2025 11:07 AM EDT [facility] Monocytes Absolute 0.20 0.10 - 0.90 10*3/uL 04/06/2025 11:07 AM EDT [facility] Eosinophils Absolute 0.00 0.00 - 0.40 10*3/uL 04/06/2025 11:07 AM EDT [facility] Basophils Absolute 0.00 0.00 - 0.20 10*3/uL 04/06/2025 11:07 AM EDT [facility] Platelets 71(L) 138 - 402 10*3/uL 04/06/2025 11:07 AM EDT [facility] Blood Venous blood specimen / Unknown Venipuncture / Unknown 04/06/2025 10:50 AM EDT 04/06/2025 10:58 AM EDT us Sosa Gardner BAIL BONDSMAN LAB BLOOD ORDERABLES Final Res ult [facility] [address] [place] [address], [place] [phone] documented in this encounter Visit Diagnoses Diagnosis [...] documented as of this encounter Care Teams Perinatal Technician Relationship Specialty Start Date End Date Lizandro Khan NP [address] [place] [address] PCP - General Family Medicine 03/20/25 07/22/25 Lizandro Khan NP [address] [place] [address] PCP - General Family Medicine 07/23/25 Rachel Pagan MD [address] [place], [place] [address] Consulting Physician Oncology 11/11/22 Pati Rucker APRN [address] [place], [place] [address] Nurse Practitioner Oncology 12/21/22 Sosa Gardner APRN [address] [place], [place] [address] Nurse Practitioner Oncology 06/24/23 Linda Elizabeth DO [address] [place], [place] [address] Consulting Physician Oncology 03/01/25 08/28/25 Elsa Vazquez [address] [place] [address] Nurse Navigator Oncology 06/05/25 07/19/25 Angie Murray RN [address] [place] [address] Nurse Navigator Oncology 06/26/25 documented as of this encounter
--- OUTSIDE RECORDS SUMMARY | 2025-09-30 11:53 | XMS_ITS | Encounter Summary ---
Author Organization [facility] nter Address [address] [place] [address] Care Team Providers Care Permanent Mold Supervisor Name Role Phone Rachel Pagan MD Unavailable [phone] Yesy Acuna RN Unavailable [phone] TEACHER Primary Care Provider [phone] Pati Rucker PASSENGER RELATIONS REPRESENTATIVE Unavailable [phone] Sosa Gardner PASSENGER RELATIONS REPRESENTATIVE Unavailable [phone] Italo Camejo GRADES 1 [address] 6 TEACHER Primary Care Provider [phone] Linda Elizabeth DO Unavailable Lizandro Khan GRADES 1 [address] 6 TEACHER Primary Care Provider [phone] Elsa Vazquez Unavailable Unavailable Angie Murray RN Unavailable Unavailab Lizandro Islas GRADES 1 [address] 6 TEACHER Primary Care Provider [phone] Encounter Details Date Type Department Care Team (Late st Contact Info) Description 06/07/2023 Orders Only [facility] [address], 10th [place] [address] Rachel Pagan MD [address] [place] [address] Non-small cell cancer of right [...] 11/11/2022 How often do you attend [facility] or taoism services? More than 4 times per year 11/11/2022 Do you belong to any clubs o r organizations such as anglican groups, unions, fraternal or athletic groups, or [...] Assessment Author No 10/27/2022 3:29 PM Demetri Moesr RN * Because of a physical, mental, [...] ONCOLOGY PRACTICE [address] [place] [address] Rachel Pagan MD 1 [place] [address] 10/10/2025 10:30 AM EST Appointment [facility] [address], [address] [place] [address] 11/02/2025 9:30 AM EST Office Visit [facility] [address], [address]st [place] [address] Ky Jewell MD [address] [place] [address] 11/05/2025 2:45 PM EST Office Visit [facility]UR[facility]ACT[facility] [address], 8th [place] [address] Ruddy Mayes MD 911 [facility] [address] [facility] [place] [address] 12/31/2025 11:30 AM EST Office Visit [facility] NE[facility]ACTICE [address] [place] [address] 01/22/2026 9:00 AM EDT Office Visit [facility] [address], 1st [place] [address] Allyn Toribio NP [address] [place] [address] documented as of this encounter Results * Magnesium (06/11/2023 8:46 AM EDT) Pathologist [facility] Magnesium 2.0 1.7 - 2.4 mg/dL 06/11/2023 9:21 AM EDT [facility] Blood Venous blood specimen / Unknown Existing Catheter / Unknown 06/11/2023 8:46 AM EDT 06/11/2023 8:55 AM EDT Rachel Soriano MD LAB BLOOD ORDERABLES Final Result [facility] [address] [place] [address], * (ABNORMAL) Comprehensive metabolic panel (06/11/2023 8:46 AM EDT) Sodium 145(H) 133 - 144 mmol/L 06/11/2023 9:21 AM EDT [facility] Potassium 3.6 3.6 - 5.2 mmol/L 06/11/2023 9:21 AM EDT [facility] Chloride 115(H) 98 - 107 mmol/L 06/11/2023 9:21 AM EDT [facility] CO2 28 21 - 32 mmol/L 06/11/2023 9:21 AM [facility] Anion Gap 2(L) 5 - 15 mmol/L 06/11/2023 9:21 AM [facility] BUN 18 7 - 18 mg/dL 06/11/2023 9:21 AM [facility] Creatinine 1.20(H) 0.55 - 1.02 mg/dL 06/11/2023 9:21 AM [facility] BUN/Creatinine Ratio 15.00 10.00 - 20.00 ratio 06/11/2023 9:21 AM [facility] Glucose 109 70 - 110 mg/dL 06/11/2023 9:21 AM [facility] Calcium 8.2(L) 8.5 - 10.1 mg/dL 06/11/2023 9:21 AM [facility] AST 13(L) 15 - 37 U/L 06/11/2023 9:21 AM [facility] ALT (SGPT) 24 13 - 56 U/L 06/11/2023 9:21 AM [facility] Alkaline Phosphatase 126(H) 45 - 117 U/L 06/11/2023 9:21 AM [facility] Total Protein 6.4 6.4 - 8.4 g/dL 06/11/2023 9:21 AM [facility] Albumin 2.7(L) 3.4 - 5.0 g/dL 06/11/2023 9:21 AM [facility] Globulin, Total 3.7 2.4 - 4.8 g/dL 06/11/2023 9:21 AM [facility] A/G Ratio 0.7 0.6 - 1.6 06/11/2023 9:21 AM [facility] Total Bilirubin 0.3 0.0 - 1.0 mg/dL 06/11/2023 9:21 AM [facility] eGFR (CKD-EPI) 47.9(L) >60.0 - 200.0 mL/min/1.7 3m*2 06/11/2023 9:21 AM [facility] Blood Venous blood specimen / Unknown Existing Catheter / Unknown 06/11/2023 8:46 AM EDT 06/11/2023 8:55 AM EDT Rachel Soriano MD LAB BLOOD ORDERABLES Final Result [facility] [address] [place] [address], * (ABNORMAL) CBC auto differential (06/11/2023 8:46 AM EDT) Auto WBC 5.7 3.0 - 11.3 10*3/uL LAB HEMATOLOGY METHOD 06/11/2023 [facility] RBC 4.24 3.45 - 5.40 10*6/uL LAB HEMATOLOGY METHOD 06/11/2023 9:06 AM [facility] Hemoglobin 13.5 10.0 - 16.0 g/dL LAB HEMATOLOGY METHOD 06/11/2023 9:06 AM [facility] Hematocrit 39.5 29.9 - 45.5 % LAB HEMATOLOGY METHOD 06/11/2023 9:06 AM [facility] MCV 93.3 78.2 - 101.8 fL LAB HEMATOLOGY METHOD 06/11/2023 9:06 AM [facility] MCH 31.8 26.4 - 33.3 pg LAB HEMATOLOGY METHOD 06/11/2023 9:06 AM [facility] MCHC 34.1 32.5 - 35.3 g/dL LAB HEMATOLOGY METHOD 06/11/2023 9:06 AM [facility] RDW 14.0 10.1 - 16.2 % LAB HEMATOLOGY METHOD 06/11/2023 9:06 AM [facility] MPV 8.4 6.4 - 10.4 fL LAB HEMATOLOGY METHOD 06/11/2023 9:06 AM [facility] Neutrophils % 55 43 - 83 % LAB HEMATOLOGY METHOD 06/11/2023 9:06 AM [facility] Lymphocytes % 29 10 - 42 % LAB HEMATOLOGY METHOD 06/11/2023 9:06 AM [facility] Monocytes % 9 1 - 14 % LAB HEMATOLOGY METHOD 06/11/2023 9:06 AM [facility] Eosinophils % 5 0 - 11 % LAB HEMATOLOGY METHOD 06/11/2023 9:06 AM [facility] Basophils % 1 0 - 2 % LAB HEMATOLOGY METHOD 06/11/2023 9:06 AM [facility] Neutrophils Absolute 3.10(L) 3.40 - 7.00 10*3/uL LAB HEMATOLOGY METHOD 06/11/2023 9:06 AM [facility] Lymphocytes Absolute 1.70 0.40 - 3.90 10*3/uL LAB HEMATOLOGY METHOD 06/11/2023 9:06 AM [facility] Monocytes Absolute 0.50 0.20 - 0.60 10*3/uL LAB HEMATOLOGY METHOD 06/11/2023 9:06 AM [facility] Eosinophils Absolute 0.30 0.00 - 0.90 10*3/uL LAB HEMATOLOGY METHOD 06/11/2023 9:06 AM [facility] Basophils Absolute 0.00 0.00 - 0.20 10*3/uL LAB HEMATOLOGY METHOD 06/11/2023 9:06 AM [facility] Platelets 196 122 - 454 10*3/uL LAB HEMATOLOGY METHOD 06/11/2023 9:06 AM [facility] Blood Venous blood specimen / Unknown Existing Catheter / Unknown 06/11/2023 8:46 AM EDT 06/11/2023 8:55 AM EDT Rachel Soriano MD LAB BLOOD ORDERABLES Final Result [facility] [address] [place] [address], documented in this encounter Visit Diagnoses Diagnosis [...] documented as of this encounter Care Teams Permanent Mold Supervisor Relationship Specialty Start Date End Date Viridiana Plaza NP [address] [place] [phone] PCP - General Family Medicine 12/10/22 09/23/23 Italo Camejo NP [address] [place] [address], [address] [place] [address] PCP - General Family Medicine 09/24/23 03/19/25 Lizandro Khan NP [address] [place] [address] PCP - General Family Medicine 03/20/25 07/22/25 Lizandro Khan NP [address] [place] [address] PCP - General Family Medicine 07/23/25 Rachel Pagan MD [address] [place], [place] [phone] Consulting Physician Oncology 11/11/22 Yesy Acuna RN [address] [place], [place] [address] Nurse Navigator 11/12/22 03/05/25 Pati Rucker APRN [address] [place], [place] [address] Nurse Practitioner Oncology 12/21/22 Sosa Gardner APRN [address] [place], [place] [phone] Nurse Practitioner Oncology 06/24/23 Linda Elizabeth DO [address] [place], [place] [address] Consulting Physician Oncology 03/01/25 08/28/25 Elsa Vazquez [address] [place] [address] Nurse Navigator Oncology 06/05/25 07/19/25 Angie Murray RN [address] [place], [place] [address] Nurse Navigator Oncology 06/26/25 documented as of this encounter
--- OUTSIDE RECORDS SUMMARY | 2025-09-30 11:54 | XMS_ITS | Encounter Summary ---
Author Organization [facility] nter Address [address] [place] [address] Care Team Providers Care Professor Of Vegetable Science Name Role Phone Rachel Pagan MD Unavailable [phone] Yesy Acuna RN Unavailable [phone] MANAGER INTERNET Primary Care Provider [phone] Pati Rucker POWER TRANSFORMER INSPECTOR Unavailable [phone] Sosa Gardner POWER TRANSFORMER INSPECTOR Unavailable [phone] Italo Camejo MANAGER INTERNET Primary Care Provider [phone] Linda Elizabeth DO Unavailable Lizandro Khan MANAGER INTERNET Primary Care Provider [phone] Elsa Vazquez Unavailable Unavailable Angie Murray RN Unavailable Unavailab Lizandro Islas MANAGER INTERNET Primary Care Provider [phone] Encounter Details Date Type Department Care Team (Late st Contact Info) Description 09/15/2023 Orders Only [facility] [address] 10th [place] [address] Rachel Pagan MD [address] [place] [address] Non-small cell cancer of right [...] week 11/11/2022 How often do you attend [facility] or rastafarian services? More than 4 times per year [...] ONCOLOGY PRACTICE [address] 10th [place] [address] Rachel Pagan MD [address] [place] [address] 10/10/2025 10:30 AM EST Appointment [facility] MEDICAL ONCOLOGY [address] 11[address] [place] [address] 11/02/2025 9:30 AM EST Office Visit [facility] CARDIOLOGY PRACTICE [address] [place] [phone] Ky Jewell MD [address] [place] [address] 11/05/2025 2:45 PM EST Office Visit [facility] NEUROLOGY PRACTICE [address] 8th [place] [address] Ruddy Mayes MD [address] [place] [address] 12/31/2025 11:30 AM EST Office Visit [facility] NEPHROLOGY PRACTICE [address] [place] [address] 01/22/2026 9:00 AM EDT Office Visit [facility] PRACT[facility] [address] 1st [place] [address] Allyn Toribio, MANAGER INTERNET [address] [place] [address] documented as of this encounter Results * (ABNORMAL) Comprehensive metabolic panel (09/16/2023 1:07 PM EDT) Sodium 140 133 - 144 mmol/L 09/16/2023 1:42 PM [facility] Potassium 4.2 3.6 - 5.2 mmol/L 09/16/2023 1:42 PM [facility] Chloride 110(H) 98 - 107 mmol/L 09/16/2023 1:42 PM [facility] CO2 28 21 - 32 mmol/L 09/16/2023 1:42 PM [facility] Anion Gap 2(L) 5 - 15 mmol/L 09/16/2023 1:42 PM [facility] BUN 25(H) 7 - 18 mg/dL 09/16/2023 1:42 PM [facility] Creatinine 1.30(H) 0.55 - 1.02 mg/dL 09/16/2023 1:42 PM [facility] BUN/Creatinine Ratio 19.23 10.00 - 20.00 ratio 09/16/2023 1:42 PM [facility] Glucose 90 70 - 110 mg/dL 09/16/2023 1:42 PM [facility] Calcium 8.5 8.5 - 10.1 mg/dL 09/16/2023 1:42 PM [facility] AST 8(L) 15 - 37 U/L 09/16/2023 1:42 PM [facility] ALT (SGPT) 18 13 - 56 U/L 09/16/2023 1:42 PM EDT [facility] Alkaline Phosphatase 102 45 - 117 U/L 09/16/2023 1:42 PM EDT [facility] Total Protein 5.9(L) 6.4 - 8.4 g/dL 09/16/2023 1:42 PM EDT [facility] Albumin 2.5(L) 3.4 - 5.0 g/dL 09/16/2023 1:42 [facility] Globulin, Total 3.4 2.4 - 4.8 g/dL 09/16/2023 1:42 PM [facility] A/G Ratio 0.7 0.6 - 1.6 09/16/2023 1:42 PM [facility] Total Bilirubin 0.5 0.0 - 1.0 mg/dL 09/16/2023 1:42 PM [facility] eGFR (CKD-EPI) 43.5(L) >60.0 - 200.0 mL/min/1.7 3m*2 09/16/2023 1:42 PM [facility] Blood Venous blood specimen / Unknown Venipuncture / Unknown 09/16/2023 1:07 PM EDT 09/16/2023 1:16 PM EDT Rachel Soriano MD LAB BLOOD ORDERABLES Final Result Performing Organization Address City/State/[facility] Co de Phone Number [facility] [address] [place] [address], * (ABNORMAL) CBC auto differential (09/16/2023 1:07 PM EDT) Auto WBC 10.6 3.0 - 11.3 10*3/uL LAB HEMATOLOGY METHOD 09/16/2023 1:25 PM EDT [facility] RBC 4.16 3.45 - 5.40 10*6/uL LAB HEMATOLOGY METHOD 09/16/2023 1:25 PM [facility] Hemoglobin 13.3 10.0 - 16.0 g/dL LAB HEMATOLOGY METHOD 09/16/2023 1:25 PM [facility] Hematocrit 39.3 29.9 - 45.5 % LAB HEMATOLOGY METHOD 09/16/2023 1:25 PM [facility] MCV 94.4 78.2 - 101.8 fL LAB HEMATOLOGY METHOD 09/16/2023 1:25 PM [facility] MCH 32.0 26.4 - 33.3 pg LAB HEMATOLOGY METHOD 09/16/2023 1:25 PM [facility] MCHC 33.9 32.5 - 35.3 g/dL LAB HEMATOLOGY METHOD 09/16/2023 1:25 PM [facility] RDW 14.0 10.1 - 16.2 % LAB HEMATOLOGY METHOD 09/16/2023 1:25 PM [facility] MPV 7.9 6.4 - 10.4 fL LAB HEMATOLOGY METHOD 09/16/2023 1:25 PM [facility] Neutrophils % 66 43 - 83 % LAB HEMATOLOGY METHOD 09/16/2023 1:25 PM [facility] Lymphocytes % 22 10 - 42 % LAB HEMATOLOGY METHOD 09/16/2023 1:25 PM [facility] Monocytes % 8 1 - 14 % LAB HEMATOLOGY METHOD 09/16/2023 1:25 PM [facility] Eosinophils % 4 0 - 11 % LAB HEMATOLOGY METHOD 09/16/2023 1:25 PM [facility] Basophils % 1 0 - 2 % LAB HEMATOLOGY METHOD 09/16/2023 1:25 PM [facility] Neutrophils Absolute 7.00 3.40 - 7.00 10*3/uL LAB HEMATOLOGY METHOD 09/16/2023 1:25 PM [facility] Lymphocytes Absolute 2.30 0.40 - 3.90 10*3/uL LAB HEMATOLOGY METHOD 09/16/2023 1:25 PM [facility] Monocytes Absolute 0.80(H) 0.20 - 0.60 10*3/uL LAB HEMATOLOGY METHOD 09/16/2023 1:25 PM [facility] Eosinophils Absolute 0.40 0.00 - 0.90 10*3/uL LAB HEMATOLOGY METHOD 09/16/2023 1:25 PM EDT [facility] Basophils Absolute 0.10 0.00 - 0.20 10*3/uL LAB HEMATOLOGY METHOD 09/16/2023 1:25 PM EDT [facility] Platelets 198 122 - 454 10*3/uL LAB HEMATOLOGY METHOD 09/16/2023 1:25 PM EDT [facility] Blood Venous blood specimen / Unknown Venipuncture / Unknown 09/16/2023 1:07 PM EDT 09/16/2023 1:16 PM EDT us Rachel Soriano MD LAB BLOOD ORDERABLES Final Result [facility] [address] [place] [address], documented in this encounter Visit Diagnoses Diagnosis [...] documented as of this encounter Care Teams Professor Of Vegetable Science Relationship Specialty Start Date End Date Viridiana Plaza NP [address] [place] [address] PCP - General Family Medicine 12/10/22 09/23/23 Italo Camejo NP [address] [facility], [address] [place] [address] PCP - General Family Medicine 09/24/23 03/19/25 Lizandro Khan NP [address] [place] [address] PCP - General Family Medicine 03/20/25 07/22/25 Lizandro Khan NP [address] [place] [address] PCP - General Family Medicine 07/23/25 Rachel Pagan MD [facility] [place] [address] Consulting Physician Oncology 11/11/22 Yesy Acuna, ROLDAN [address] [place], [place] [id number] Nurse Navigator 11/12/22 03/05/25 Pati Rucker APRN [address] [place] [address] Nurse Practitioner Oncology 12/21/22 Sosa Gardner APRN [address] [place] [address] Nurse Practitioner Oncology 06/24/23 Linda Elizabeth DO [address] [place] [address] Consulting Physician Oncology 03/01/25 08/28/25 Elsa Vazquez [address] [place] [address] Nurse Navigator Oncology 06/05/25 07/19/25 Angie Murray, RN [address] [place] [address] Nurse Navigator Oncology 06/26/25 documented as of this encounter
--- OUTSIDE RECORDS SUMMARY | 2025-09-30 11:54 | XMS_ITS | Encounter Summary ---
Author Organization [facility] nter Address [address] [place] [address] Care Team Providers Care Key Carrier Name Role Phone Rachel Pagan MD Unavailable [phone] Pati Rucker HYDRAULIC LIFT DRIVER Unavailable [phone] Sosa Gardner HYDRAULIC LIFT DRIVER Unavailable [phone] Linda Elizabeth DO Unavailable Lizandro Khan ASSISTANT TERMINAL MANAGER Primary Care Provider [phone] Elsa Vazquez Unavailable Unavailable Angie Murray RN Unavailable Unavailab Lizandro Islas ASSISTANT TERMINAL MANAGER Primary Care Provider [phone] Encounter Details Date Type Department Care Team (Late st Contact Info) Description 03/29/2025 Telephone [facility] [address] [place] [phone] Debbie Flannery, ROLDAN [address] [place] [address] Social History Tobacco Use Types Packs/Day Years Used Date Smoking Tobacco: Every Day Cigarettes 0.5 30.9 Started: 2024 Passive Smoke Exposure: Current Smokeless Tobacco: Never Comments:Offered patient an appointment at the health department for smoking cessation classes. Patient declined. Alcohol Use Standard Drinks/Week Comments Never 0 (1 standard drink = 0.6 oz pur e alcohol) [facility] Utilities Answer Date Recorded In the past 12 months has [employer] gas, oil, or water company threatened to [...] do you [facility] services? More than 4 times per year [...] as of this encounter Functional Status * Over the past 2 weeks, how often have you been bothered by any of the following problems? Question Answer Date of Assessment Author Patient Health Questionnaire -2 Score 0 03/31/2025 2:02 AM Toyin Tee , ROLDAN * Question Answer Date of Assessment Author Little interest or pleasure in doing things Not at all 03/31/2025 2:02 AM Toyin Tee , ROLDAN Feeling down, depressed, or hopeless Not at all 03/31/2025 2:02 AM Toyin Tee RN * AUDIT Alcohol Screening Question Answer Date [...] 03/31/2025 2:06 AM Toyin Tee , RN Q6: How often during the last year have you needed an alcoholic drink first thing in the morning to get yourself going after a night of heavy drinking? 0 03/31/2025 2:06 AM Toyin Tee , RN Q7: How often during the last year have you had a feeling of guilt or remorse after drinking? 0 03/31/2025 2:06 AM Juliana Tee, RN Q9: Have you or someone else been injured as a result of your drinking? 0 03/31/2025 2:06 AM Keerthi Tee, RN Q10: Has a relative, friend, doctor, or another health professional expressed concern about your drinking or suggested you cut down? 0 03/31/2025 2:06 AM Toyin Tee RN AUDIT Total Score 0 03/31/2025 2:06 AM Toyin Tee, RN Q1: How often do you have a drink containing alcohol? Never 03/31/2025 2:06 AM Toyin Tee , RN Q2: How many drinks containing alcohol do you have on a typical day when you are drinking? Patient does not drink 03/31/2025 2:06 AM Toyin Tee, RN Q3: How often do you have [...] 10/27/2022 3:29 PM Demetri Moser RN * Question Answer Date of Assessment Author Last BM Date [id number] 03/31/2025 2:00 AM Vi Grady RN * Question Answer Date of Assessment Author Difficulty Chewing or Swallowing No 03/31/20 2:05 AM Toyin Tee RN * ADL Screening Question Answer Date of Assessment Author Patient's Vision Adequate to Safely Complete Daily Activities Yes 03/31/2025 2:06 AM Toyin Tee RN Patient's Judgment Adequate to Safely Complete Daily Activities Yes 03/31/2025 2:06 AM Toyin Tee RN Patient's Memory Adequate to Safely Complete Daily Activities Yes 03/31/2025 2:06 AM Toyin Tee RN Patient Able to Express Needs/Desires Yes 03/31/2025 2:06 AM Toyin Tee RN Dressing Independent 03/31/2025 2:06 AM Toyin Flores RN Grooming Independent 03/31/2025 2:06 AM Toyin Flores RN Feeding Independent 03/31/2025 2:06 AM Toyin Flores RN Bathing Independent 03/31/2025 2:06 AM Toyin Flores RN Toileting Independent 03/31/2025 2:06 AM Toyin Flores RN In/Out Bed Independent 03/31/2025 2:06 AM Toyin Flores RN Walks in Home Independent 03/31/2025 2:06 AM Toyin Ríos RN Weakness of Legs None 03/31/2025 2:06 AM Toyin Carrillo RN Weakness of Arms/Hands None 03/31/2025 2:06 AM Toyin Tee RN Hearing - Right Ear Functional 03/31/2025 2:06 AM Toyin Dunbar RN Hearing - Left Ear Functional 03/31/2025 2:06 AM Toyin Tee RN Which is your dominant hand? Right 03/31/2025 2 :06 AM Toyin Tee RN * Therapy Consults Question Answer Date of Assessment Author PT Evaluation Needed 2 03/31/2025 2:06 AM E Toyin Sadler RN OT Evaluation Needed 2 03/31/2025 2:06 AM E Toyin Sadler RN TAXONOMIST Evaluation Needed 2 03/31/2025 2:06 AM Toyin Tee RN * Assistive Devices Question Answer Date of Assessment Author Assistive Devices None 03/31/2025 2:06 AM Toyin Tee RN * Over the past 2 weeks, how often have you been bothered by any of the following problems? Question Answer Date of Assessment Author Patient Health Questionnaire -2 Score 0 03/31/2025 2:02 AM Toyin Tee RN * Physical Activity Question Answer Date of Assessment Author In the last 30 days, other t conti the activities you did for work, on average, how many days per week did you engage in moderate exercise (like walking fast, running, jogging, dancing, swimming, biking, or other similar activities)? 0 03/31/2025 2:02 AM Toyin Tee, ROLDAN On average, how many minutes did you usually spend exercising at this level on one of those days? 0 03/31/2025 2:02 AM EDT Toyin Moss, ROLDAN * Question Answer Date of Assessment Author Little interest or pleasure in doing things Not at all 03/31/2025 2:02 AM Toyin Tee RN Feeling down, depressed, or hopeless Not at all 03/31/2025 2:02 AM Toyin Tee , ROLDAN * Question Answer Date of Assessment Author 1. Have you wished you were or wished you could go to sleep and not wake up? No 03/31/2025 2:07 AM Toyin Tee RN 2. Have you actually had any thoughts of killing yourself? No 03/31/2025 2:07 AM Toyin Tee, ROLDAN 6. Have you ever done anythi ng, started to do anything, or prepared to do anything to end your life? No 03/31/2025 2:07 AM Toyin Tee RN documented as of this encounter Mental Status * Question Answer Entry Date Author Right Radial Pulse +2 04/01/2025 8:31 PM EDT Cherrie Delvalle * Question Answer Entry Date Author LUFranck Capillary Refill Less than/equal to 2 seconds 04/01/2025 8:31 PM EDT Cherrie Delvalle LUE Color [place] 04/01/2025 8:31 PM EDT Cherrie Delvalle LUFranck Temperature/Moisture Warm;Dry 025 8:31 PM EDT Cherrie Delvalle Left Radial Pulse +2 04/01/2025 8:3 1 PM EDT Cherrie Delvalle * Question Answer Entry Date Author RLE Edema +1 04/01/2025 8:31 PM EDT Cherrie Cordon Right Pedal Pulse +2 04/01/2025 8:31 PM EDT Cherrie Delvalle * Question Answer Entry Date Author LLE Edema +1 04/01/2025 8:31 PM EDT Cherrie Cordon Left Pedal Pulse +2 04/01/2025 8:31 PM EDT Cherrie Kwok * Question Answer Entry Date Author RUE Full movement 04/01/2025 8:31 PM EDT Erica ey, Cherrie Zavala RLE Full movement;Weakness 04/01/2025 8:31 PM EDT Cherrie Delvalle LUE Full movement 04/01/2025 8:31 PM EDT Erica ey, Cherrie Zavala LLE Full movement;Weakness 04/01/2025 8:31 PM EDT Cherrie Delvalle * Question Answer Entry Date Author Level of Consciousness Alert 8:31 PM EDT Cherrie Delvalle Orientation Level Oriented X4 04/01/2025 8:3 1 PM EDT Cherrie Delvalle Cognition Follows commands 04/01/2025 8:31 PM EDT Cherrie Delvalle Speech Clear 04/01/2025 8:31 PM EDT Cherrie Delvalle L Pupil Reaction Reactive to light 04/01/2025 8: 31 PM EDT Cherrie Delvalle L Pupil Size (mm) 3 04/01/2025 8:3 1 PM EDT Cherrie Delvalle R Pupil Reaction Reactive to light 04/01/2025 8: 31 PM EDT Cherrie Delvalle R Pupil Size (mm) 3 04/01/2025 8:3 1 PM EDT Cherrie Delvalle R Pupil Description Regular 04/01/2025 8 :31 PM EDT Cherrie Delvalle L Pupil Description Regular 04/01/2025 8 :31 PM EDT Cehrrie Delvalle R Hand Grasp Moderate 04/01/2025 8:31 PM EDT Cherrie Delvalle L Hand Grasp Moderate 04/01/2025 8:31 PM EDT Cherrie Delvalle R Foot Dorsiflexion Moderate 04/01/2025 8 :31 PM EDT Cherrie Delvalle L Foot Dorsiflexion Moderate 04/01/2025 8 :31 PM EDT Cherrie Delvalle R Foot Plantar Flexion Moderate 8:31 PM EDT Cherrie Delvalle Foot Plantar Flexion Moderate 8:31 PM EDT Cherrie Delvalle R Pupil Shape Round 04/01/2025 8:31 PM EDT Cherrie Delvalle L Pupil Shape Round 04/01/2025 8:31 PM EDT Cherrie Delvalle Facial Symmetry No facial droop noted 04/01/2025 8:31 PM EDT Cherrie Delvalle * Mental Health - Over the past 2 weeks, how often have you been bothered by any of the following problems? Question Answer Entry Date Author Little interest or pleasure in doing things Not at all 03/31/2025 2:02 AM Toyin Tee RN Feeling down, depressed, or hopeless Not at all 03/31/2025 2:02 AM Toyin Tee RN Stress means a situation in which a person feels tense, restless, nervous, or anxious, or is unable to sleep at night because his or her mind is troubled all the time. Do you feel this kind of stress these days? Not at all 03/31/2025 2:02 AM Toyin Tee RN * Confusion Assessment Method (CAM) Question Answer Entry Date Author Acute Onset and Fluctuating Course (1A) No 04/01/2025 8:31 PM EDT Cherrie Delvalle th * Because of a physical, mental, or [...] visiting daughter and for medical appointments in [facility] today. Does complain with hematuria [...] the morning because she is currently in [place] and will not be leaving there until [...] 10/04/2025 8:45 AM EST Office Visit [facility] [address] 10th [place] [address] Rachel Pagan MD [address] [place] [address] 10/10/2025 10:30 AM EST Appointment [facility] [address], [address]th [place] [address] 11/02/2025 9:30 AM EST Office Visit [facility] [address], 1st [place] [address] Ky Jewell MD [address] [place] [address] 11/05/2025 2:45 PM EST Office Visit [facility] [address], 8th [place] [address] Ruddy Mayes MD [address] [place] [address] 12/31/2025 11:30 AM EST Office Visit [facility] [address] [place], [place] [id number] 01/22/2026 9:00 AM EDT Office Visit [facility] [address], [address]st [place] [address] Allyn Toribio NP [address] [place], [place] [id number] documented as of this encounter Visit Diagnoses [...] noted to be in contact isolation. Tila Hernandezels 06/12/25 1:24 PM 05/15/2025 05/15/2025 06/14/2025 7:28 PM E DT Assessment Noted Time PHQ-9 Depression Total Score: 0 03/20/20 9:00 AM EDT documented as of this encounter Care Teams Key Carrier Relationship Specialty Start Date End Date Lizandro Khan NP [address] [place] [address] PCP - General Family Medicine 03/20/25 07/22/25 Lizandro Khan NP [address] [place] [address] PCP - General Family Medicine 07/23/25 Rachel Pagan MD [address] [place], [place] [address] Consulting Physician Oncology 11/11/22 Pati Rucker APRN [address] [place], [place] [address] Nurse Practitioner Oncology 12/21/22 Sosa Gardner APRN [address] [place], [place] [address] Nurse Practitioner Oncology 06/24/23 Linda Elizabeth DO [address] [place], [place] [address] Consulting Physician Oncology 03/01/25 08/28/25 Elsa Vazquez [address] [place] [address] Nurse Navigator Oncology 06/05/25 07/19/25 Angie Murray, ROLDAN [address] [place] [address] Nurse Navigator Oncology 06/26/25 documented as of this encounter
--- OUTSIDE RECORDS SUMMARY | 2025-09-30 11:54 | XMS_ITS | Encounter Summary ---
Author Organization [facility] nter Address [address] [place] [address] Care Team Providers Care Human Resource Officer Name Role Phone Rachel Pagan MD Unavailable [phone] Pati Rucker COUNSELING CENTER DIRECTOR Unavailable [phone] Sosa Gardner COUNSELING CENTER DIRECTOR Unavailable [phone] Linda Elizabeth DO Unavailable Lizandro Khan DEICER TESTER Primary Care Provider [phone] Elsa Vazquez Unavailable Unavailable Angie Murray RN Unavailable Unavailab Lizandro Islas DEICER TESTER Primary Care Provider [phone] Encounter Details Date Type Department Care Team (Late st Contact Info) Description 04/10/2025 Orders Only [facility] [address], 11th [place] [phone] Generic Social History Tobacco Use Types Packs/Day Years Used Date Smoking Tobacco: Former Cigarettes 0.5 30.3 2 025 - 03/18/2025 Passive Smoke Exposure: Past Smokeless Tobacco: Never Comments:Offered patient an appointment at the health department for smoking cessation classes. Patient declined. Alcohol Use Standard Drinks/Week Comments Never 0 (1 standard drink = 0.6 oz pur e alcohol) [facility] Utilities Answer Date Recorded In the past 12 months has [employer] electric, gas, oil, or water company threatened [...] week 11/11/2022 How often do you attend [facility] or methodist services? More than 4 [...] ONCOLOGY PRACTICE [address], [address] [place] [address] Rachel Pagan MD [address] [place] [phone] 10/10/2025 10:30 AM EST Appointment [facility] [address], [address]th [place] [address] 11/02/2025 9:30 AM EST Office Visit [facility] [address], [address] [place] [phone] Ky Jewell MD [address] [place] [phone] 11/05/2025 2:45 PM EST Office Visit [facility] [address], [address]th [place] [address] Ruddy Mayes MD [address] [place] [address] 12/31/2025 11:30 AM EST Office Visit [facility] [address] [place] [phone] 01/22/2026 9:00 AM EDT Office Visit [facility] [address], [address]st [place] [address] Allyn Toribio NP [address] [place], [place] [id number] documented as of this encounter Visit Diagnoses [...] as of this encounter Care Teams Human Resource Officer Relationship Specialty Start Date End Date Lizandro Khan NP [address] [place] [address] PCP - General Family Medicine 03/20/25 07/22/25 Lizandro Khan NP [address] [place] [address] PCP - General Family Medicine 07/23/25 Rachel Pagan MD [address] [place] [address] Consulting Physician Oncology 11/11/22 Pati Rucker APRN [address] [place] [address] Nurse Practitioner Oncology 12/21/22 Sosa Gardner APRN [address] [place] [address] Nurse Practitioner Oncology 06/24/23 Linda Elizabeth DO [address] [place] [address] Consulting Physician Oncology 03/01/25 08/28/25 Elsa Vazquez [address] [place] [address] Nurse Navigator Oncology 06/05/25 07/19/25 Angie Murray, ROLDAN [address] [place] [address] Nurse Navigator Oncology 06/26/25 documented as of this encounter
--- OUTSIDE RECORDS SUMMARY | 2025-09-30 11:54 | XMS_ITS | Encounter Summary ---
Author Organization [facility] nter Address [address] [place] [address] Care Team Providers Care Coremaker Supervisor Name Role Phone Rachel Pagan MD Unavailable [phone] Yesy Acuna RN Unavailable [phone] FIG BAR MACHINE OPERATOR Primary Care Provider [phone] Pati Rucker PHARMACY ORDER ENTRY TECHNICIAN Unavailable [phone] Sosa Gardner PHARMACY ORDER ENTRY TECHNICIAN Unavailable [phone] Italo Camejo FIG BAR MACHINE OPERATOR Primary Care Provider [phone] Linda Elizabeth DO Unavailable Lizandro Khan FIG BAR MACHINE OPERATOR Primary Care Provider [phone] Elsa Vazquez Unavailable Unavailable Angie Mruray RN Unavailable Unavailab Lizandro Islas FIG BAR MACHINE OPERATOR Primary Care Provider [phone] Encounter Details Date Type Department Care Team (Late st Contact Info) Description 09/23/2023 Orders Only [facility] [address], 10[address] [place] [address] Rachel Pagan MD [address] [place] [address] Non-small cell cancer of right [...] How often do you attend [facility] or caodaism services? More than 4 times per year 11/11/2022 Do you belong to any clubs o r organizations such as moravian groups, unions, fraternal or athletic groups, or [...] ONCOLOGY PRACTICE [address], 10th [place] [address] Rachel Pagan MD [address] [place] [address] 10/10/2025 10:30 AM EST Appointment [facility] [address] [place] [address] 11/02/2025 9:30 AM EST Office Visit [facility] [address], [address] [place] [phone] Ky Jweell MD [address] [place] [address] 11/05/2025 2:45 PM EST Office Visit [facility]UR[facility] [address], 8th [place] [address] Ruddy Mayes MD [address] [place] [address] 12/31/2025 11:30 AM EST Office Visit [facility] [address] [place] [address] 01/22/2026 9:00 AM EDT Office Visit [facility] [address], [address]st [place] [address] Allyn Toribio, GRAHAM [address] [place] [address] documented as of this encounter Results * CBC auto differential (09/23/2023 8:37 AM EST) Auto WBC 8.3 3.0 - 11.3 10*3/uL LAB HEMATOLOGY METHOD 09/23/2023 8:54 AM [facility] RBC 4.18 3.45 - 5.40 10*6/uL LAB HEMATOLOGY METHOD 09/23/2023 8:54 AM [facility] Hemoglobin 13.8 10.0 - 16.0 g/dL LAB HEMATOLOGY METHOD 09/23/2023 8:54 AM [facility] Hematocrit 39.9 29.9 - 45.5 % LAB HEMATOLOGY METHOD 09/23/2023 8:54 AM [facility] MCV 95.4 78.2 - 101.8 fL LAB HEMATOLOGY METHOD 09/23/2023 8:54 AM [facility] MCH 33.1 26.4 - 33.3 pg LAB HEMATOLOGY METHOD 09/23/2023 8:54 AM [facility] MCHC 34.7 32.5 - 35.3 g/dL LAB HEMATOLOGY METHOD 09/23/2023 8:54 AM [facility] RDW 14.1 10.1 - 16.2 % LAB HEMATOLOGY METHOD 09/23/2023 8:54 AM [facility] MPV 8.3 6.4 - 10.4 fL LAB HEMATOLOGY METHOD 09/23/2023 8:54 AM [facility] Neutrophils % 66 43 - 83 % LAB HEMATOLOGY METHOD 09/23/2023 8:54 AM [facility] Lymphocytes % 24 10 - 42 % LAB HEMATOLOGY METHOD 09/23/2023 8:54 AM [facility] Monocytes % 6 1 - 14 % LAB HEMATOLOGY METHOD 09/23/2023 8:54 AM [facility] Eosinophils % 3 0 - 11 % LAB HEMATOLOGY METHOD 09/23/2023 8:54 AM [facility] Basophils % 1 0 - 2 % LAB HEMATOLOGY METHOD 09/23/2023 8:54 AM [facility] Neutrophils Absolute 5.50 3.40 - 7.00 10*3/uL LAB HEMATOLOGY METHOD 09/23/2023 8:54 AM [facility] Lymphocytes Absolute 2.00 0.40 - 3.90 10*3/uL LAB HEMATOLOGY METHOD 09/23/2023 8:54 AM [facility] Monocytes Absolute 0.50 0.20 - 0.60 10*3/uL LAB HEMATOLOGY METHOD 09/23/2023 8:54 AM [facility] Eosinophils Absolute 0.30 0.00 - 0.90 10*3/uL LAB HEMATOLOGY METHOD 09/23/2023 8:54 AM [facility] Basophils Absolute 0.10 0.00 - 0.20 10*3/uL LAB HEMATOLOGY METHOD 09/23/2023 8:54 AM [facility] Platelets 232 122 - 454 10*3/uL LAB HEMATOLOGY METHOD 09/23/2023 8:54 AM [facility] Blood Venous blood specimen / Unknown Venipuncture / Unknown 09/23/2023 8:37 AM EST 09/23/2023 8:42 AM EST Rachel Soriano MD LAB BLOOD ORDERABLES Final Result [facility] [address] [place] [address], * (ABNORMAL) Comprehensive metabolic panel (09/23/2023 8:37 AM EST) Sodium 140 133 - 144 mmol/L 09/23/2023 9:13 AM [facility] Potassium 4.0 3.6 - 5.2 mmol/L 09/23/2023 9:13 AM [facility] Chloride 114(H) 98 - 107 mmol/L 09/23/2023 9:13 AM [facility] CO2 23 21 - 32 mmol/L 09/23/2023 9:13 AM [facility] Anion Gap 3(L) 5 - 15 mmol/L 09/23/2023 9:13 AM [facility] BUN 16 7 - 18 mg/dL 09/23/2023 9:13 AM [facility] Creatinine 1.20(H) 0.55 - 1.02 mg/dL 09/23/2023 9:13 AM [facility] BUN/Creatinine Ratio 13.33 10.00 - 20.00 ratio 09/23/2023 9:13 AM [facility] Glucose 119(H) 70 - 110 mg/dL 09/23/2023 9:13 AM [facility] Calcium 8.7 8.5 - 10.1 mg/dL 09/23/2023 9:13 AM [facility] AST 12(L) 15 - 37 U/L 09/23/2023 9:13 AM [facility] ALT (SGPT) 21 13 - 56 U/L 09/23/2023 9:13 AM [facility] Alkaline Phosphatase 112 45 - 117 U/L 09/23/2023 9:13 AM [facility] Total Protein 6.6 6.4 - 8.4 g/dL 09/23/2023 9:13 AM [facility] Albumin 2.7(L) 3.4 - 5.0 g/dL 09/23/2023 9:13 AM [facility] Globulin, Total 3.9 2.4 - 4.8 g/dL 09/23/2023 9:13 AM [facility] A/G Ratio 0.7 0.6 - 1.6 09/23/2023 9:13 AM [facility] Total Bilirubin 0.5 0.0 - 1.0 mg/dL 09/23/2023 9:13 AM [facility] eGFR (CKD-EPI) 47.9(L) >60.0 - 200.0 mL/min/1.7 3m*2 09/23/2023 9:13 AM EST [facility] Blood Venous blood specimen / Unknown Venipuncture / Unknown 09/23/2023 8:37 AM EST 09/23/2023 8:42 AM EST us Rachel Soriano MD LAB BLOOD ORDERABLES Final Result [facility] [address] [place] [address], documented in this encounter Visit Diagnoses Diagnosis [...] to be in contact isolation. Tilajames Dia 05/21/25 8:47 AM Readmitted 06/12/25. Patient already noted to be in contact isolation. Tila Dia 06/12/25 1:24 PM 05/15/2025 05/15/2025 06/14/2025 7:28 PM E DT documented as of this encounter Care Teams Coremaker Supervisor Relationship Specialty Start Date End Date Viridiana Plaza NP [address] [place] [address], [place] [address] PCP - General Family Medicine 12/10/22 09/23/23 Italo Camejo NP [address] [facility], [address] [place] [address] PCP - General Family Medicine 09/24/23 03/19/25 Lizandro Khan NP [address] [place] [address] PCP - General Family Medicine 03/20/25 07/22/25 Lizandro Khan NP [address] [place] [address] PCP - General Family Medicine 07/23/25 Rachel Pagan MD [address] [place] [phone] Consulting Physician Oncology 11/11/22 Yesy Acuna, ROLDAN [address] [place] [address] Nurse Navigator 11/12/22 03/05/25 Pati Rucker APRN [address] [place], [place] [phone] Nurse Practitioner Oncology 12/21/22 Sosa Gardner APRN [address] [place] [address] Nurse Practitioner Oncology 06/24/23 Linda Elizabeth DO [address] [place] [address] Consulting Physician Oncology 03/01/25 08/28/25 Elsa Vazquez [address] [place] [address] Nurse Navigator Oncology 06/05/25 07/19/25 Angie Murray, RN [address] [place] [address] Nurse Navigator Oncology 06/26/25 documented as of this encounter
--- OUTSIDE RECORDS SUMMARY | 2025-09-30 11:54 | XMS_ITS | Encounter Summary ---
Author Organization [facility] nter Address [address] [place] [address] Care Team Providers Care Director Of Industrial Relations Name Role Phone Rachel Pagan MD Unavailable [phone] Yesy Acuna RN Unavailable [phone] CLINIC CLERK Primary Care Provider [phone] Pati Rucker MIS SPECIALIST Unavailable [phone] Sosa Gardner MIS SPECIALIST Unavailable [phone] Italo Camejo CLINIC CLERK Primary Care Provider [phone] Linda Elizabeth DO Unavailable Lizandro Khan CLINIC CLERK Primary Care Provider [phone] Elsa Vazquez Unavailable Unavailable Angie Murray RN Unavailable Unavailab Lizadnro Islas CLINIC CLERK Primary Care Provider [phone] Encounter Details Date Type Department Care Team (Late st Contact Info) Description 06/15/2023 Telephone [facility] GASTROENTEROLOGY PRACTICE [address] [place] [address] Damian Riley DO [address] [place] [address] Social History Tobacco Use Types [...] 11/11/2022 How often do you attend [facility] or [facility] services? More than 4 [...] 10/27/2022 3:29 PM Tiffanie Moser RN * Because of a physical, [...] ONCOLOGY PRACTICE [address] [place] [address] Rachel Pagan MD [address] [place] [address] 10/10/2025 10:30 AM EST Appointment [facility] MEDICAL ONCOLOGY [address] [place] [address] 11/02/2025 9:30 AM EST Office Visit [facility] CARDIOLOGY PRACTICE [address] [place] [address] Ky Jewell MD [address] [place] [address] 11/05/2025 2:45 PM EST Office Visit [facility] NEUROLOGY PRACTICE [address] [place] [address] Ruddy Mayes MD [address] [facility] [address] 12/31/2025 11:30 AM EST Office Visit [facility] NEPHROLOGY PRACTICE [address] [place] [address] 01/22/2026 9:00 AM EDT Office Visit [facility] CARDIOLOGY PRACTICE [address] Floor [place] [facility] [place] [phone] Allyn Toribio NP [address] [place] [address] documented as of this encounter Visit Diagnoses [...] of this encounter Care Teams Director Of Industrial Relations Relationship Specialty Start Date End Date Viridiana Plaza NP [address] [place] [phone] PCP - General Family Medicine 12/10/22 09/23/23 Italo Camejo NP [address] [place] [address], [address] [place] [address] PCP - General Family Medicine 09/24/23 03/19/25 Lizandro Khan NP [address] [place] [address] PCP - General Family Medicine 03/20/25 07/22/25 Lizandro Khan NP [address] [place] [address] PCP - General Family Medicine 07/23/25 Rachel Pagan MD [facility] [address] [facility] [place] [address] Consulting Physician Oncology 11/11/22 Yesy Acuna, RN [address] [place] [id number] Nurse Navigator 11/12/22 03/05/25 Pati Rucker APRN [address] [place] [address] Nurse Practitioner Oncology 12/21/22 Sosa Gardner APRN [address] [place] [place] [address] Nurse Practitioner Oncology 06/24/23 Linda Elizabeth DO [address] [place] [address] Consulting Physician Oncology 03/01/25 08/28/25 Elsa Vazquez [address] [place] [address] Nurse Navigator Oncology 06/05/25 07/19/25 Angie Murray RN [address] [place] [address] Nurse Navigator Oncology 06/26/25 documented as of this encounter
--- OUTSIDE RECORDS SUMMARY | 2025-09-30 11:55 | XMS_ITS | Encounter Summary ---
Author Organization [facility] nter Address [address] [place] [address] Care Team Providers Care Motorboat Mechanic Inboard Name Role Phone Rachel Pagan MD Unavailable [phone] Yesy Acuna RN Unavailable Pati Rucker PREPAROLE COUNSELING AIDE Unavailable [phone] Sosa Gardner PREPAROLE COUNSELING AIDE Unavailable [phone] Italo Camejo NUCLEAR EQUIPMENT OPERATOR Primary Care Provider [phone] Linda Elizabeth DO Unavailable Lizandro Khan NUCLEAR EQUIPMENT OPERATOR Primary Care Provider [phone] Elsa Vazquez Unavailable Unavailable Angie Murray RN Unavailable Unavailab Lizandro Islas NUCLEAR EQUIPMENT OPERATOR Primary Care Provider [phone] Reason for Visit * Reason Comments Med Refill Encounter Details Date Type Department Care Team (Late st Contact Info) Description 11/05/2023 Refill [facility] ONCOLOGY PRACTICE [address] 10th [place] [address] Rachel Pagan MD [address] [place] [address] Non-small cell cancer of right [...] How often do you attend [facility] or christian services? More than 4 times [...] Assessment Author No 10/27/2022 3:29 PM EST Tiffanie Mota RN * Are you blind or [...] ONCOLOGY PRACTICE [address] [place] [phone] Rachel Pagan MD [address] [place] [phone] 10/10/2025 10:30 AM EST Appointment [facility] MEDICAL ONCOLOGY [address] [place] [phone] 11/02/2025 9:30 AM EST Office Visit [facility] CARDIOLOGY PRACTICE [address] [place] [phone] Ky Jewell MD [address] [place] [address] 11/05/2025 2:45 PM EST Office Visit [facility] NEUROLOGY PRACTICE [address] [place] [address] Ruddy Mayes MD [address] [place] [address] 12/31/2025 11:30 AM EST Office Visit [facility] NEPHROLOGY PRACTICE [address] [place] [address] 01/22/2026 9:00 AM EDT Office Visit [facility] CARDIOLOGY PRACTICE [address] [place] [phone] Allyn Toribio NP [address] [place] [address] documented as of this encounter Visit Diagnoses [...] documented as of this encounter Care Teams Motorboat Mechanic Inboard Relationship Specialty Start Date End Date Italo Camejo NP [address] [facility], [address] [place] [address] PCP - General Family Medicine 09/24/23 03/19/25 Lizandro Khan NP [address] [place] [address] PCP - General Family Medicine 03/20/25 07/22/25 Lizandro Khan NP [address] [place] [address] PCP - General Family Medicine 07/23/25 Rachel Pagan MD [address] [place] [phone] Consulting Physician Oncology 11/11/22 Yesy Acuna RN [address] [place] [address] Nurse Navigator 11/12/22 03/05/25 Pati Rucker APRN [address] [place], [place] [phone] Nurse Practitioner Oncology 12/21/22 Sosa Gardner APRN [address] [place] [phone] Nurse Practitioner Oncology 06/24/23 Linda Elizabeth DO [address] [place] [address] Consulting Physician Oncology 03/01/25 08/28/25 Elsa Vazquez [address] [place] [address] Nurse Navigator Oncology 06/05/25 07/19/25 Angie Murray RN [address] [place] [address] Nurse Navigator Oncology 06/26/25 documented as of this encounter
[2025-09-30 12:01] VITALS: BP 101/59; PULSE 87; RESP 16; O2SAT 97
[2025-09-30 12:08] VITALS: O2SAT 95
[2025-09-30 12:08] LABS: Hematocrit 25.0 % (37.0-47.0); Hemoglobin 8.0 g/dL (12.2-16.2); Immature Granulocytes % 0.2 %; Mean Corpuscular HGB Conc 32.0 g/dL (31.8-35.4); Mean Corpuscular Hemoglobin 37.7 pg (27.0-31.2); Mean Corpuscular Volume 117.9 fl (81-99); Nucleated Red Blood Cells % 0 %; Platelet Count 179 K/mm3 (142-424); Red Blood Count 2.12 M/mm3 (4.20-5.40); Red Cell Distribution Width-SD 68.4 fL; White Blood Count 4.2 K/mm3 (4.8-10.8)
[2025-09-30 12:10] LABS: Albumin Level 3.4 g/dl (3.5-5.0); Chloride 99 mmol/L (98-107); Potassium 3.7 mmoL/L (3.5-5.1); Sodium 141 mmol/L (136-145)
[2025-09-30 12:11] LABS: VBG HCO3 30.4 mmol/L (23-30); VBG PCO2 48.1 mmol/L (35-51); VBG PH 7.42 mmol/L (7.31-7.41); VBG PO2 49.8 mmol/L (28-40)
[2025-09-30 12:12] LABS: Lactate Venous 3.2 mmol/L (0.4-2.0)
[2025-09-30 12:13] LABS: Alanine Aminotransferase 17 U/L (12-78); Albumin/Globulin Ratio 1.0 (1.1-1.8); Alkaline Phosphatase 75 U/L (38-126); Anion Gap 9.7 mEq/L (5-15); Aspartate Amino Transferase 23 U/L (14-36); Bilirubin,Total 0.5 mg/dl (0.2-1.3); Blood Urea Nitrogen 13 mg/dl (7-17); Calcium 8.9 mg/dl (8.4-10.2); Carbon Dioxide 36 mmol/L (22.0-30.0); Creatinine Clearance Estimated 50 mL/min (50-200); Creatinine,Serum 1.00 mg/dl (0.52-1.04); Estimated Glomerular Filt Rate 55 ml/min (>60); GFR (African American) 67 ML/MIN (>60); Globulin 3.5 g/dL (1.3-3.2); Glucose 157 mg/dl (74-100); Total Protein,Serum 6.9 g/dl (6.3-8.2)
[2025-09-30 12:23] LABS: NT Pro Brain Natriuretic Pep. 811 pg/mL (0-125)
[2025-09-30] MEDS: METHYLPREDNISOLONE SOD SUCC 125MG VIAL 80 MG IV (12:29)
[2025-09-30] MEDS: IPRATROPIUM/ALBUTEROL 3 ML NEB IH (12:30)
[2025-09-30 12:31] VITALS: BP 100/58; PULSE 71; RESP 21; O2SAT 57
[2025-09-30 12:39] LABS: Troponin I < 0.01 ng/ml (0.00-0.034)
[2025-09-30 12:56] VITALS: BP 107/51; PULSE 80; RESP 20; TEMP 36.8; O2SAT 98
[2025-09-30 16:13] LABS: Reflex Lactic Add Lactic Reflex
== END 2025-09-30 13:05 | disposition home or self-care (01) ==
PROVIDERS: Emergency Provider Student in an Organized Health Care Education/Training Program; PCP Nurse Practitioner
DX: J18.9 Pneumonia, unspecified organism (principal)
CPT/HCPCS: 71045; 80053; 82803; 83880; 84484; 85025; 87636; 93005; 96374; 96375; 99285; J1642; J2919